=== PATIENT | female | born 1985 | race Caucasian/White ===

== ENCOUNTER 2023-05-18 03:33 | Emergency (ER) | payer OTHER, SELFPAY ==
[2023-05-18 03:39] VITALS: BP 147/93; PULSE 87; RESP 16; TEMP 36.3; O2SAT 100; BMI 21.6
--- NOTE | 2023-05-18 03:57 | ED.ANXIETY1 ---
HPI - Anxiety General Chief Complaint: Anxiety Stated Complaint: ANXIETY Time Seen by Provider: 05/18/23 03:56 Source: patient Mode of arrival: walk-in Limitations: no limitations History of Present Illness HPI narrative: history of anxiety and schizophrenia. States she was suppose to see her physician last week but missed the appointment. This AM she feels anxious and came in. Not suicidal. plans to call the office in a few hours for an appointment today MD complaint: Reports anxiety Related Data Home Medications Medication Instructions Recorded Confirmed albuterol sulfate 2.5 mg/3 mL 2.5 mg inhalation Q4H PRN 05/18/23 05/18/23 (0.083 %) solution for nebulization shortness of breath or wheezing clonazepam 1 mg tablet 1 mg PO Q8H 05/18/23 05/18/23 dextroamphetamine-amphetamine 10 10 mg PO BID 05/18/23 05/18/23 mg tablet gabapentin 800 mg tablet 800 mg PO Q12H 05/18/23 05/18/23 pregabalin 75 mg capsule 75 mg PO Q8H 05/18/23 05/18/23 Allergies Allergy/AdvReac Type Severity Reaction Status Date / Time No Known Drug Allergies Allergy Verified 05/18/23 03:44 Review of Systems ROS Status of ROS 10 or more systems reviewed and unremarkable except as noted in history and below PFSH PFSH Social History Smoking status: Current every day smoker Exam Constitutional Vital Signs, click to edit/add: Last Vital Signs Temp 97.4 F L 05/18/23 03:39 Pulse 87 05/18/23 03:39 Resp 16 05/18/23 03:39 BP 147/93 H 05/18/23 03:39 Pulse Ox 100 05/18/23 03:39 O2 Del Method Room Air 05/18/23 03:39 Common normals: no apparent distress, average body habitus, oriented x3, healthy appearing and alert Eye Common normals: EOMs intact bilaterally and conjunctivae normal Respiratory Common normals: normal respiratory effort, no retractions, no use of accessory muscles and clear to auscultation bilaterally Cardio Common normals: regular rate, regular rhythm, S1 normal heart sound and S2 normal heart sound GI Common normals: Normal to inspection, nondistended, normoactive bowel sounds present Extremity Common normals: normal to inspection and full ROM Neuro Common normals: moves all extremities, no focal motor deficits and no sensory deficits noted Psych Appearance: grossly normal Course Vital Signs Vital signs: Vital Signs Temperature 97.4 F L 05/18/23 03:39 Pulse Rate 87 05/18/23 03:39 Respiratory Rate 16 05/18/23 03:39 Blood Pressure 147/93 H 05/18/23 03:39 Pulse Oximetry 100 05/18/23 03:39 Oxygen Delivery Method Room Air 05/18/23 03:39 Temperature 97.4 F L 05/18/23 03:39 Pulse Rate 87 05/18/23 03:39 Respiratory Rate 16 05/18/23 03:39 Blood Pressure 147/93 H 05/18/23 03:39 Pulse Oximetry 100 05/18/23 03:39 Oxygen Delivery Method Room Air 05/18/23 03:39 MDM - Anxiety MDM Narrative Medical decision making narrative: patient presents with history of anxiety and schizophrenia. here this AM complaining of anxiety. no depressed or suicidal. ordered Klonipin and benadryl. Patient then observed for response. She apparently left without informing anyone. She was with her male partner and he too left. Neither one ever returned Discharge Plan Discharge Chief Complaint: Anxiety Clinical Impression: Acute anxiety Patient Disposition: Left Against Medical Advice Prescriptions / Home Meds: No Action albuterol sulfate 2.5 mg /3 mL (0.083 %) solution for nebulization 2.5 mg inhalation Q4H PRN (Reason: shortness of breath or wheezing) clonazepam 1 mg tablet 1 mg PO Q8H dextroamphetamine-amphetamine 10 mg tablet 10 mg PO BID gabapentin 800 mg tablet 800 mg PO Q12H pregabalin 75 mg capsule 75 mg PO Q8H Stand Alone Forms: Portal Instructions Referrals: Physician,Non-Staff, MD [Primary Care Provider] - 1 week Discharge Date/Time: 05/18/23 04:18
[2023-05-18] MEDS: DIPHENHYDRAMINE HCL 25 MG CAPSULE 50 MG PO (04:04)
[2023-05-18] MEDS: CLONAZEPAM 0.5 MG TABLET 1 MG PO (04:05)
== END 2023-05-18 04:18 | disposition left against medical advice (07) ==
PROVIDERS: Emergency Provider Internal Medicine
DX: F41.9 Anxiety disorder, unspecified (principal); F17.210 Nicotine dependence, cigarettes, uncomplicated; Z79.899 Other long term (current) drug therapy
CPT/HCPCS: 99283

== ENCOUNTER 2023-05-18 12:06 | Emergency (ER) | payer OTHER, SELFPAY ==
[2023-05-18 12:10] VITALS: BP 138/91; PULSE 79; RESP 18; TEMP 36.6; O2SAT 98; BMI 17.0
--- NOTE | 2023-05-18 12:36 | ECG_ITS ---
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
--- NOTE | 2023-05-18 12:53 | ED_ITS ---
HPI - Anxiety General Chief Complaint: Anxiety Stated Complaint: ANXIETY Time Seen by Provider: 05/18/23 12:20 Source: patient Mode of arrival: walk-in History of Present Illness HPI narrative: 38-year-old female presents for anxiety. She is not suicidal. She ran out of her Klonopin but she's been taking her Seroquel and Depakote. She sees a doctor in [place] to get these medications. Hasn't been able to get her Klonopin refilled yet. She was seen here earlier today and was given a dose of Klonopin but then walked out without informing staff. She states she is hearing voices and she thinks other people can hear the voices two. He doesn't have any physical complaints such as fever or headache or cough. Related Data Home Medications Medication Instructions Recorded Confirmed albuterol sulfate 2.5 mg/3 mL 2.5 mg inhalation Q4H PRN 05/18/23 05/18/23 (0.083 %) solution for nebulization shortness of breath or wheezing clonazepam 1 mg tablet 1 mg PO Q8H 05/18/23 05/18/23 dextroamphetamine-amphetamine 10 10 mg PO BID 05/18/23 05/18/23 mg tablet gabapentin 800 mg tablet 800 mg PO Q12H 05/18/23 05/18/23 pregabalin 75 mg capsule 75 mg PO Q8H 05/18/23 05/18/23 Allergies Allergy/AdvReac Type Severity Reaction Status Date / Time No Known Drug Allergies Allergy Verified 05/18/23 03:44 Review of Systems ROS Narrative A ten point review of systems is negative except as noted above. Psychiatric Reports: anxiety, change in sleep pattern and auditory hallucinations PFSH PFSH Social History Smoking status: Current every day smoker Exam Narrative Exam Narrative: Nurses note and vital signs reviewed and patient is not hypoxic. General: The patient appears well and in no apparent distress. Patient is resting comfortably on cart. Skin: Warm, dry, no pallor noted. There is no rash noted. Head: Normocephalic, atraumatic Eye: Normal conjunctiva, no drainage Ears, Nose, Mouth, and Throat: oral mucosa is moist. Nares patent. Cardiovascular: Regular Rate and Rhythm Respiratory: Patient is in no distress, no accessory muscle use, lungs are clear to auscultation, no wheezing, rales or rhonchi Back: non-tender GI: soft and nontender Musculoskeletal: The patient has no evidence of calf tenderness, no pitting edema, symmetrical pulses noted bilaterally Neurological: A&O, normal speech Psychiatric: Cooperative, appears anxious Constitutional Vital Signs, click to edit/add: Last Vital Signs Temp 97.9 F 05/18/23 12:10 Pulse 79 05/18/23 12:10 Resp 18 05/18/23 12:10 BP 138/91 05/18/23 12:10 Pulse Ox 98 05/18/23 12:10 O2 Del Method Room Air 05/18/23 12:10 Course Vital Signs Vital signs: Vital Signs Temperature 97.9 F 05/18/23 12:10 Pulse Rate 79 05/18/23 12:10 Respiratory Rate 18 05/18/23 12:10 Blood Pressure 138/91 05/18/23 12:10 Pulse Oximetry 98 05/18/23 12:10 Oxygen Delivery Method Room Air 05/18/23 12:10 Temperature 97.9 F 05/18/23 12:10 Pulse Rate 79 05/18/23 12:10 Respiratory Rate 18 05/18/23 12:10 Blood Pressure 138/91 05/18/23 12:10 Pulse Oximetry 98 05/18/23 12:10 Oxygen Delivery Method Room Air 05/18/23 12:10 MDM - Anxiety MDM Narrative Medical decision making narrative: the patient who has a history of schizophrenia has been hearing voices and she is paranoid. She has been evaluated by mental health services and they have been able to place her at [facility]. Differential Diagnosis Differential diagnosis: Likely panic disorder, acute anxiety and other (substance abuse) Lab Data Attestation: I reviewed the patient's lab results. Labs: Lab Results 05/18/23 05/18/23 05/18/23 Range/Units 12:48 13:33 16:12 WBC 7.7 (4.0-11.0) 10^3/uL RBC 5.08 (4.20-5.40) 10^6/uL Hgb 15.3 (12.0-16.0) g/dL Hct 43.7 (36.0-48.0) % MCV 86.0 (81.0-99.0) fL MCH 30.1 (26.7-34.0) pg MCHC 35.0 (29.9-35.2) g/dL RDW 12.7 (11.0-15.0) % Plt Count 247 (150-450) 10^3/uL MPV 10.8 (9.5-13.5) fL Neut % (Auto) 62.7 (43.0-75.0) % Lymph % (Auto) 29.3 (20.5-60.0) % [place] % (Auto) 6.9 (1.7-12.0) % Eos % (Auto) 0.5 L (0.9-7.0) % Baso % (Auto) 0.3 (0.2-2.0) % Neut # (Auto) 4.8 (1.4-6.5) 10^3/uL Lymph # (Auto) 2.3 (1.2-3.8) 10^3/uL [place] # (Auto) 0.5 (0.3-0.8) 10^3/uL Eos # (Auto) 0.0 (0.0-0.7) 10^3/uL Baso # (Auto) 0.0 (0.0-0.1) 10^3/uL Abs Immat Gran (auto) 0.02 (0.00-0.03) 10^3/uL Imm/Tot Granulo (auto) 0.3 (0.0-0.5) % Sodium 136 (136-145) mmol/L Potassium 3.2 L (3.5-5.1) mmol/L Chloride 100 (98-107) mmol/L Carbon Dioxide 28.8 (21.0-32.0) mmol/L Anion Gap 10.4 BUN 12.0 (7.0-18.0) mg/dL Creatinine 0.83 (0.55-1.02) mg/dL Est GFR ( Amer) >60 (>=60) Est GFR (Non-Af Amer) >60 (>=60) BUN/Creatinine Ratio 14.5 Glucose 139 H (74-106) mg/dL Calcium 9.2 (8.5-10.1) mg/dL TSH 1.663 (0.358-3.740) uIU/mL Serum HCG, Qual Negative (NEGATIVE) Urine Color Dk. yellow (YELLOW) Urine Clarity Slightly cloudy A (CLEAR) Urine pH 6.0 (5.0-9.0) Ur Specific [place] >=1.030 A (1.005-1.025) Urine Protein Trace (NEG/TRACE) mg/dL Urine Glucose (UA) Negative (NEGATIVE) mg/dL Urine Ketones Trace A (NEGATIVE) mg/dL Urine Occult Blood Negative (NEGATIVE) Urine Nitrite Negative (NEGATIVE) Urine Bilirubin Small A (NEGATIVE) Urine Urobilinogen 1.0 (0.2-1.0) EU/dL Ur Leukocyte Esterase Trace A (NEGATIVE) Urine RBC None seen (0-2) #/HPF Urine WBC 0-2 A (NONE SEEN) #/HPF Ur Squamous Epith Cells Many A (NONE/RARE) #/LPF Urine Crystals None seen (None Seen) #/HPF Urine Bacteria None seen (NONE SEEN) #/HPF Urine Casts None seen (NONE SEEN) #/LPF Urine Mucus Small A (NONE SEEN) Ur Culture Indicated? No Salicylates 5.7 (<=19.9) mg/dL Urine Opiates Screen Negative (NEGATIVE) Ur Buprenorphine Scrn Negative (NEGATIVE) Ur Oxycodone Screen Negative (NEGATIVE) Urine Methadone Screen Positive A (NEGATIVE) Ur Propoxyphene Screen Negative (NEGATIVE) Acetaminophen <2.0 L (10.0-30.0) ug/mL Ur Barbiturates Screen Negative (NEGATIVE) U Tricyclic Antidepress Negative (NEGATIVE) Ur Phencyclidine Scrn Negative (NEGATIVE) Ur Amphetamines Screen Positive A (NEGATIVE) U Methamphetamines Scrn Positive A (NEGATIVE) U Benzodiazepines Scrn Negative (NEGATIVE) Urine Cocaine Screen Negative (NEGATIVE) U Cannabinoids Screen Negative (NEGATIVE) Ethanol Quant <3 mg/dL SARS-CoV-2 (PCR) (NEGATIVE) 05/18/23 Range/Units 17:40 WBC (4.0-11.0) 10^3/uL RBC (4.20-5.40) 10^6/uL Hgb (12.0-16.0) g/dL Hct (36.0-48.0) % MCV (81.0-99.0) fL MCH (26.7-34.0) pg MCHC (29.9-35.2) g/dL RDW (11.0-15.0) % Plt Count (150-450) 10^3/uL MPV (9.5-13.5) fL Neut % (Auto) (43.0-75.0) % Lymph % (Auto) (20.5-60.0) % [place] % (Auto) (1.7-12.0) % Eos % (Auto) (0.9-7.0) % Baso % (Auto) (0.2-2.0) % Neut # (Auto) (1.4-6.5) 10^3/uL Lymph # (Auto) (1.2-3.8) 10^3/uL [place] # (Auto) (0.3-0.8) 10^3/uL Eos # (Auto) (0.0-0.7) 10^3/uL Baso # (Auto) (0.0-0.1) 10^3/uL Abs Immat Gran (auto) (0.00-0.03) 10^3/uL Imm/Tot Granulo (auto) (0.0-0.5) % Sodium (136-145) mmol/L Potassium (3.5-5.1) mmol/L Chloride (98-107) mmol/L Carbon Dioxide (21.0-32.0) mmol/L Anion Gap BUN (7.0-18.0) mg/dL Creatinine (0.55-1.02) mg/dL Est GFR ( Amer) (>=60) Est GFR (Non-Af Amer) (>=60) BUN/Creatinine Ratio Glucose (74-106) mg/dL Calcium (8.5-10.1) mg/dL TSH (0.358-3.740) uIU/mL Serum HCG, Qual (NEGATIVE) Urine Color (YELLOW) Urine Clarity (CLEAR) Urine pH (5.0-9.0) Ur Specific [place] (1.005-1.025) Urine Protein (NEG/TRACE) mg/dL Urine Glucose (UA) (NEGATIVE) mg/dL Urine Ketones (NEGATIVE) mg/dL Urine Occult Blood (NEGATIVE) Urine Nitrite (NEGATIVE) Urine Bilirubin (NEGATIVE) Urine Urobilinogen (0.2-1.0) EU/dL Ur Leukocyte Esterase (NEGATIVE) Urine RBC (0-2) #/HPF Urine WBC (NONE SEEN) #/HPF Ur Squamous Epith Cells (NONE/RARE) #/LPF Urine Crystals (None Seen) #/HPF Urine Bacteria (NONE SEEN) #/HPF Urine Casts (NONE SEEN) #/LPF Urine Mucus (NONE SEEN) Ur Culture Indicated? Salicylates (<=19.9) mg/dL Urine Opiates Screen (NEGATIVE) Ur Buprenorphine Scrn (NEGATIVE) Ur Oxycodone Screen (NEGATIVE) Urine Methadone Screen (NEGATIVE) Ur Propoxyphene Screen (NEGATIVE) Acetaminophen (10.0-30.0) ug/mL Ur Barbiturates Screen (NEGATIVE) U Tricyclic Antidepress (NEGATIVE) Ur Phencyclidine Scrn (NEGATIVE) Ur Amphetamines Screen (NEGATIVE) U Methamphetamines Scrn (NEGATIVE) U Benzodiazepines Scrn (NEGATIVE) Urine Cocaine Screen (NEGATIVE) U Cannabinoids Screen (NEGATIVE) Ethanol Quant mg/dL SARS-CoV-2 (PCR) Negative (NEGATIVE) ECG Data Attestation: I personally reviewed and interpreted this ECG as follows: (normal sinus rhythm without acute change) Discharge Plan Discharge Chief Complaint: Anxiety Clinical Impression: Acute anxiety Patient Disposition: [facility] Time of Disposition Decision: 18:23 Discharge location: [place] Condition: Good Mode of Transportation: EMS
[2023-05-18 12:57] VITALS: PULSE 81
[2023-05-18 13:06] LABS: Anion Gap 10.4; BUN Creatinine Ratio 14.5; Calcium 9.2 mg/dL (8.5-10.1); Carbon Dioxide 28.8 mmol/L (21.0-32.0); Chloride 100 mmol/L (98-107); Estimated GFR (African America >60 (>=60); Estimated GFR (Non-African Ame >60 (>=60); Glucose 139 mg/dL (74-106); Potassium 3.2 mmol/L (3.5-5.1); Sodium 136 mmol/L (136-145)
[2023-05-18 13:08] LABS: Basophils Percent Auto 0.3 % (0.2-2.0); Eosinophils Percent Auto 0.5 % (0.9-7.0); Hematocrit 43.7 % (36.0-48.0); Hemoglobin 15.3 g/dL (12.0-16.0); Immature Granulocytes Abs Auto 0.02 10^3/uL (0.00-0.03); Immature Granulocytes Pct Auto 0.3 % (0.0-0.5); Lymphocytes Absolute Auto 2.3 10^3/uL (1.2-3.8); Lymphocytes Percent Auto 29.3 % (20.5-60.0); Mean Corpuscular Hemoglobin 30.1 pg (26.7-34.0); Mean Platelet Volume 10.8 fL (9.5-13.5); Monocytes Absolute Auto 0.5 10^3/uL (0.3-0.8); Monocytes Percent Auto 6.9 % (1.7-12.0); Neutrophils Absolute Auto 4.8 10^3/uL (1.4-6.5); Neutrophils Percent Auto 62.7 % (43.0-75.0); Platelet Count 247 10^3/uL (150-450); Red Blood Count 5.08 10^6/uL (4.20-5.40); Red Cell Distribution Width 12.7 % (11.0-15.0); White Blood Count 7.7 10^3/uL (4.0-11.0)
[2023-05-18 13:10] LABS: Salicylate 5.7 mg/dL (<=19.9)
[2023-05-18 13:12] LABS: Acetaminophen <2.0 ug/mL (10.0-30.0); Ethanol <3 mg/dL; HCG Qualitative NEGATIVE (NEGATIVE)
[2023-05-18 14:02] LABS: Thyroid Stimulating Hormone 1.663 uIU/mL (0.358-3.740)
[2023-05-18] MEDS: CLONAZEPAM 0.5 MG TABLET 1 MG PO (14:38)
[2023-05-18 16:21] LABS: Bilirubin Urine SMALL (NEGATIVE); Blood Urine NEGATIVE (NEGATIVE); Color Urine DK. YELLOW (YELLOW); Glucose Urine UA NEGATIVE (NEGATIVE); Ketones Urine TRACE mg/dL (NEGATIVE); Leukocyte Esterase Urine TRACE (NEGATIVE); Nitrite Urine NEGATIVE (NEGATIVE); Protein Urine TRACE mg/dL (NEG/TRACE); Specific Gravity Urine >=1.030 (1.005-1.025)
[2023-05-18 16:28] LABS: Clarity Urine SLIGHTLY CLOUDY (CLEAR)
[2023-05-18 16:29] LABS: Bacteria Urine NONE SEEN #/HPF (NONE SEEN); Crystals Seen? None Seen #/HPF (None Seen); Mucus Urine SMALL (NONE SEEN); RBC Urine NONE SEEN #/HPF (0-2); Squamous Epithelial Cell Urine MANY #/LPF (NONE/RARE); WBC Urine 0-2 #/HPF (NONE SEEN)
[2023-05-18 16:30] LABS: Cast Seen? NONE SEEN #/LPF (NONE SEEN); Urine Culture Indicated NO
[2023-05-18 16:37] LABS: Amphetamine Screen Urine POSITIVE (NEGATIVE); Barbiturates Screen Urine NEGATIVE (NEGATIVE); Benzodiazepines Screen Urine NEGATIVE (NEGATIVE); Buprenorphine Screen Urine NEGATIVE (NEGATIVE); Cannabinoid Screen Urine NEGATIVE (NEGATIVE); Cocaine Screen Urine NEGATIVE (NEGATIVE); Methadone Screen Urine POSITIVE (NEGATIVE); Methamphetamines Screen Urine POSITIVE (NEGATIVE); Opiate Screen Urine NEGATIVE (NEGATIVE); Oxycodone Screen Urine NEGATIVE (NEGATIVE); Phencyclidine Screen Urine NEGATIVE (NEGATIVE); Tricyclic Antidepressant Urine NEGATIVE (NEGATIVE)
[2023-05-18 18:03] LABS: SARS-CoV-2 Ag NEGATIVE (NEGATIVE)
[2023-05-18] MEDS: POTASSIUM BICARBONATE/CIT 25 MEQ TABLET EFF 50 MEQ PO (18:13)
[2023-05-18] MEDS: CLONAZEPAM 1 MG TABLET PO (21:26)
[2023-05-20 15:28] LABS: SARS-CoV-2 NAA NOT DETECTED (NOT DETECTE)
== END 2023-05-18 21:33 ==
PROVIDERS: Emergency Medicine; Emergency Provider Emergency Medicine
DX: F41.9 Anxiety disorder, unspecified (principal); F20.9 Schizophrenia, unspecified; F17.210 Nicotine dependence, cigarettes, uncomplicated; Z79.899 Other long term (current) drug therapy; Z20.822 Contact with and (suspected) exposure to COVID-19
CPT/HCPCS: 36415; 80048; 80179; 80307; 80320; 80329; 81001; 84443; 84703; 85025; 87635; 87811; 93005; 99283; 99285

== ENCOUNTER 2023-06-11 10:14 | Emergency (ER) | payer OTHER, SELFPAY ==
[2023-06-11] VITALS (7 sets, daily range): BP systolic 90–105; BP diastolic 59–61; PULSE 61–80; RESP 15–18; TEMP 36.8; O2SAT 94–98; BMI 22.6
--- NOTE | 2023-06-11 10:24 | ECG_ITS ---
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
[2023-06-11 10:56] LABS: Basophils Absolute Auto 0.1 10^3/uL (0.0-0.1); Basophils Percent Auto 0.7 % (0.2-2.0); Eosinophils Absolute Auto 0.2 10^3/uL (0.0-0.7); Eosinophils Percent Auto 1.6 % (0.9-7.0); Hemoglobin 11.6 g/dL (12.0-16.0); Immature Granulocytes Abs Auto 0.02 10^3/uL (0.00-0.03); Immature Granulocytes Pct Auto 0.2 % (0.0-0.5); Lymphocytes Absolute Auto 4.2 10^3/uL (1.2-3.8); Lymphocytes Percent Auto 41.7 % (20.5-60.0); Mean Corpuscular HGB Conc 33.1 g/dL (29.9-35.2); Mean Corpuscular Hemoglobin 30.3 pg (26.7-34.0); Mean Corpuscular Volume 91.4 fL (81.0-99.0); Mean Platelet Volume 10.8 fL (9.5-13.5); Monocytes Absolute Auto 0.7 10^3/uL (0.3-0.8); Monocytes Percent Auto 7.2 % (1.7-12.0); Neutrophils Absolute Auto 4.9 10^3/uL (1.4-6.5); Neutrophils Percent Auto 48.6 % (43.0-75.0); Platelet Count 198 10^3/uL (150-450); Red Blood Count 3.83 10^6/uL (4.20-5.40); Red Cell Distribution Width 12.8 % (11.0-15.0); White Blood Count 10.1 10^3/uL (4.0-11.0)
[2023-06-11 11:10] LABS: Alanine Aminotransferase 22 U/L (14-59); Albumin Globulin Ratio 0.9; Alkaline Phosphatase 41 U/L (46-116); Anion Gap 8.5; Aspartate Amino Transferase 10 U/L (15-37); BUN Creatinine Ratio 10.5; Bilirubin Total 0.2 mg/dL (0.2-1.0); Calcium 8.4 mg/dL (8.5-10.1); Carbon Dioxide 28.3 mmol/L (21.0-32.0); Chloride 107 mmol/L (98-107); Estimated GFR (African America >60 (>=60); Estimated GFR (Non-African Ame >60 (>=60); Globulin 3.3 g/dL; Glucose 107 mg/dL (74-106); Potassium 3.8 mmol/L (3.5-5.1); Salicylate 4.3 mg/dL (<=19.9); Sodium 140 mmol/L (136-145); Total Protein 6.3 g/dL (6.4-8.2)
[2023-06-11 11:11] LABS: INR 0.95; Prothrombin Time 10.1 sec (9.0-11.6)
[2023-06-11 11:14] LABS: Acetaminophen <2.0 ug/mL (10.0-30.0)
[2023-06-11 11:15] LABS: HCG Qualitative NEGATIVE (NEGATIVE)
[2023-06-11 11:33] LABS: Ethanol <3 mg/dL
[2023-06-11 12:13] LABS: Amphetamine Screen Urine NEGATIVE (NEGATIVE); Barbiturates Screen Urine NEGATIVE (NEGATIVE); Benzodiazepines Screen Urine POSITIVE (NEGATIVE); Buprenorphine Screen Urine NEGATIVE (NEGATIVE); Cannabinoid Screen Urine NEGATIVE (NEGATIVE); Cocaine Screen Urine NEGATIVE (NEGATIVE); Methadone Screen Urine POSITIVE (NEGATIVE); Methamphetamines Screen Urine NEGATIVE (NEGATIVE); Opiate Screen Urine NEGATIVE (NEGATIVE); Oxycodone Screen Urine NEGATIVE (NEGATIVE); Phencyclidine Screen Urine NEGATIVE (NEGATIVE); Tricyclic Antidepressant Urine NEGATIVE (NEGATIVE)
--- NOTE | 2023-06-11 13:46 | ED.GENADUL1 ---
HPI - General Adult General Chief complaint: Altered Mental Status Stated complaint: CONFUSION Time Seen by Provider: 06/11/23 10:24 Source: patient and family Mode of arrival: walk-in Limitations: no limitations History of Present Illness HPI narrative: Presenting to us with her friend for the main reason that she need detox she also have history of schizophrenia and anxiety but her main concern that she need help with her psychiatric problems as well as her detox from opiate her last intake of methadone was daily and today she got 1 dose of it as she gets that from a detox facility in [place] The patient also used fentanyl almost a week ago The patient is not suicidal or homicidal at the moment Related Data Home Medications Medication Instructions Recorded Confirmed pregabalin 75 mg capsule 75 mg PO Q8H 05/18/23 06/11/23 clonazepam 0.5 mg tablet 0.5 mg PO Q12H PRN anxiety 06/11/23 06/11/23 divalproex 250 mg tablet,delayed 750 mg PO BEDTIME 06/11/23 06/11/23 release haloperidol 5 mg tablet 5 mg PO BID 06/11/23 06/11/23 hydroxyzine HCl 50 mg tablet 50 mg PO Q6H PRN anxiety 06/11/23 06/11/23 trazodone 50 mg tablet 50 mg PO BEDTIME PRN insomnia 06/11/23 06/11/23 venlafaxine 75 mg capsule,extended 75 mg PO DAILY 06/11/23 06/11/23 release 24 hr Allergies Allergy/AdvReac Type Severity Reaction Status Date / Time No Known Drug Allergies Allergy Verified 05/18/23 03:44 Review of Systems ROS Status of ROS 10 or more systems reviewed and unremarkable except as noted in history and below PFSH PFS Social History Smoking status: Current every day smoker Exam Narrative Exam Narrative: Nurses notes and vital signs reviewed and patient is not hypoxic. General: Well-appearing and in no apparent distress. Skin: Warm, dry, no pallor noted. No rash. Head: Normocephalic, atraumatic. Neck: Supple, non-tender. Eye: Pupils are equal, round and EOMI. No scleral icterus. Ears, Nose, Mouth, and Throat: TM are clear, no nasal mucosal hypertrophy. Oral mucosa is moist, no posterior oropharynx erythema, uvula is mid-line Cardiovascular: Regular Rate and Rhythm without murmur, gallop or rub. Respiratory: No accessory muscle use or respiratory distress. Lungs are clear to auscultation, no wheezing, rales or rhonchi Chest Wall: no tenderness Back: No midline thoracic or lumbar vertebral tenderness. No CVA tenderness Musculoskeletal: normal ROM, no calf or popliteal tenderness, no lower extremity edema/swelling GI: Abdomen is soft, non-distended. Normal bowel sounds. No masses appreciated. No tenderness to palpation. No rebound, guarding, or rigidity noted. Neurological: A&O x4. No cranial nerve dysfunction observed. No truncal ataxia. Moves all extremities. Sensation intact. Psychiatric: Cooperative and interactive. Normal mood and affect. Constitutional Vital Signs, click to edit/add: Last Vital Signs Temp 98.2 F 06/11/23 10:17 Pulse 61 06/11/23 15:17 Resp 16 06/11/23 15:17 BP 94/61 06/11/23 15:17 Pulse Ox 95 06/11/23 15:17 O2 Del Method Room Air 06/11/23 10:17 Course Vital Signs Vital signs: Vital Signs Temperature 98.2 F 06/11/23 10:17 Pulse Rate 78 06/11/23 10:17 Respiratory Rate 18 06/11/23 10:17 Blood Pressure 105/60 06/11/23 10:17 Pulse Oximetry 97 06/11/23 10:17 Oxygen Delivery Method Room Air 06/11/23 10:17 Temperature 98.2 F 06/11/23 10:17 Pulse Rate 61 06/11/23 15:17 Respiratory Rate 16 06/11/23 15:17 Blood Pressure 94/61 06/11/23 15:17 Pulse Oximetry 95 06/11/23 15:17 Oxygen Delivery Method Room Air 06/11/23 10:17 Medical Decision Making [facility] Narrative Medical decision making narrative: The patient EKG showing sinus rhythm with a heart rate of [address] elevation or depression CBC and chemistry as well as showed no acute significant pathology the patient right now is medically cleared for a psychiatric evaluation or any detox that needed As per [facility]'s psychiatric and detox doses the patient need to be admitted but due to her methadone abuse as well multiple facilities were called and right now we are searching for an accepting facility The patient meanwhile is stable and awaiting placement and her care will be transferred to Dr. Johnson Lab Data Labs: Lab Results 06/11/23 06/11/23 Range/Units 10:43 11:27 WBC 10.1 (4.0-11.0) 10^3/uL RBC 3.83 L (4.20-5.40) 10^6/uL Hgb 11.6 L (12.0-16.0) g/dL Hct 35.0 L (36.0-48.0) % MCV 91.4 (81.0-99.0) fL MCH 30.3 (26.7-34.0) pg MCHC 33.1 (29.9-35.2) g/dL RDW 12.8 (11.0-15.0) % Plt Count 198 (150-450) 10^3/uL MPV 10.8 (9.5-13.5) fL Neut % (Auto) 48.6 (43.0-75.0) % Lymph % (Auto) 41.7 (20.5-60.0) % [place] % (Auto) 7.2 (1.7-12.0) % Eos % (Auto) 1.6 (0.9-7.0) % Baso % (Auto) 0.7 (0.2-2.0) % Neut # (Auto) 4.9 (1.4-6.5) 10^3/uL Lymph # (Auto) 4.2 H (1.2-3.8) 10^3/uL [place] # (Auto) 0.7 (0.3-0.8) 10^3/uL Eos # (Auto) 0.2 (0.0-0.7) 10^3/uL Baso # (Auto) 0.1 (0.0-0.1) 10^3/uL Abs Immat Gran (auto) 0.02 (0.00-0.03) 10^3/uL Imm/Tot Granulo (auto) 0.2 (0.0-0.5) % PT 10.1 (9.0-11.6) sec INR 0.95 Sodium 140 (136-145) mmol/L Potassium 3.8 (3.5-5.1) mmol/L Chloride 107 (98-107) mmol/L Carbon Dioxide 28.3 (21.0-32.0) mmol/L Anion Gap 8.5 BUN 9.0 (7.0-18.0) mg/dL Creatinine 0.86 (0.55-1.02) mg/dL Est GFR ( Amer) >60 (>=60) Est GFR (Non-Af Amer) >60 (>=60) BUN/Creatinine Ratio 10.5 Glucose 107 H (74-106) mg/dL Calcium 8.4 L (8.5-10.1) mg/dL Total Bilirubin 0.2 (0.2-1.0) mg/dL AST 10 L (15-37) U/L ALT 22 (14-59) U/L Alkaline Phosphatase 41 L (46-116) U/L Total Protein 6.3 L (6.4-8.2) g/dL Albumin 3.0 L (3.4-5.0) g/dL Globulin 3.3 g/dL Albumin/Globulin Ratio 0.9 Serum HCG, Qual Negative (NEGATIVE) Salicylates 4.3 (<=19.9) mg/dL Urine Opiates Screen Negative (NEGATIVE) Ur Buprenorphine Scrn Negative (NEGATIVE) Ur Oxycodone Screen Negative (NEGATIVE) Urine Methadone Screen Positive A (NEGATIVE) Ur Propoxyphene Screen Negative (NEGATIVE) Acetaminophen <2.0 L (10.0-30.0) ug/mL Ur Barbiturates Screen Negative (NEGATIVE) U Tricyclic Antidepress Negative (NEGATIVE) Ur Phencyclidine Scrn Negative (NEGATIVE) Ur Amphetamines Screen Negative (NEGATIVE) U Methamphetamines Scrn Negative (NEGATIVE) U Benzodiazepines Scrn Positive A (NEGATIVE) Urine Cocaine Screen Negative (NEGATIVE) U Cannabinoids Screen Negative (NEGATIVE) Ethanol Quant <3 mg/dL Discharge Plan Discharge Chief Complaint: Altered Mental Status Clinical Impression: Opiate abuse, continuous, Anxiety Patient [facility]position: [facility]
[2023-06-11] MEDS: LORAZEPAM 1 MG TABLET PO (19:26)
[2023-06-11] MEDS: CLONAZEPAM 0.5 MG TABLET 1 MG PO (22:21)
== END 2023-06-11 23:40 ==
PROVIDERS: Emergency Provider Emergency Medicine
DX: F20.9 Schizophrenia, unspecified (principal); F11.10 Opioid abuse, uncomplicated; F41.9 Anxiety disorder, unspecified; F17.210 Nicotine dependence, cigarettes, uncomplicated
CPT/HCPCS: 36415; 80053; 80179; 80307; 80320; 80329; 84703; 85025; 85610; 93005; 99285

== ENCOUNTER 2023-06-14 12:30 | Emergency (ER) | payer OTHER, SELFPAY ==
[2023-06-14 12:37] VITALS: BP 104/56; PULSE 70; RESP 18; TEMP 36.6; O2SAT 98; BMI 29.5
--- NOTE | 2023-06-14 12:49 | ED_ITS ---
HPI - Anxiety General Chief Complaint: Anxiety Stated Complaint: ANXIETY Time Seen by Provider: 06/14/23 12:38 Source: patient Mode of arrival: walk-in Limitations: no limitations History of Present Illness HPI narrative: Patient has anxiety and was recently released from a psych facility in [place]. She was prescribed 0.5mg Clonazepam instead of the 1mg she normally takes. They called after getting home and reviewing the prescription and the psychiatrist prescribed an additional batch of 0.5mg Clonazepam but sent it to a pharmacy in [place],. The patient tried to have the prescription sent to her local pharmacy but they said they could not because it was a controlled substance. She has been taking extra Clonazpema in anticipation of getting the remainder of the prescription but is now out of Clonazpeam and has no way to get refills. She is complaining of anxiety. No suicidal or homicidal issue. Related Data Home Medications Medication Instructions Recorded Confirmed pregabalin 75 mg capsule 75 mg PO Q8H 05/18/23 06/11/23 clonazepam 0.5 mg tablet 0.5 mg PO Q12H PRN anxiety 06/11/23 06/14/23 divalproex 250 mg tablet,delayed 750 mg PO BEDTIME 06/11/23 06/11/23 release haloperidol 5 mg tablet 5 mg PO BID 06/11/23 06/11/23 hydroxyzine HCl 50 mg tablet 50 mg PO Q6H PRN anxiety 06/11/23 06/11/23 trazodone 50 mg tablet 50 mg PO BEDTIME PRN insomnia 06/11/23 06/11/23 venlafaxine 75 mg capsule,extended 75 mg PO DAILY 06/11/23 06/11/23 release 24 hr Previous Rx's Medication Instructions Recorded clonazepam 0.5 mg tablet 0.5 mg PO BID PRN anxiety #5 tabs 06/14/23 Allergies Allergy/AdvReac Type Severity Reaction Status Date / Time No Known Drug Allergies Allergy Verified 05/18/23 03:44 PFSH PFSH Social History Smoking status: Current every day smoker Exam Narrative Exam Narrative: Nurses notes and vital signs reviewed and patient is not hypoxic. afebrile General: Well-appearing but anxious. Skin: Warm, dry, no pallor noted. No rash. Head: Normocephalic, atraumatic. Neck: Supple, non-tender. Eye: Pupils are equal, round and EOMI. No scleral icterus. Cardiovascular: Regular Rate and Rhythm without murmur, gallop or rub. Respiratory: No accessory muscle use or respiratory distress. Lungs are clear to auscultation, no wheezing, rales or rhonchi Musculoskeletal: normal ROM GI: Abdomen is soft, non-distended. Normal bowel sounds. No tenderness to palpation. No rebound, guarding, or rigidity noted. Neurological: A&O x4. No cranial nerve dysfunction observed. No truncal ataxia. Moves all extremities. Sensation intact. Psychiatric: Cooperative and interactive. Normal mood and affect. Constitutional Vital Signs, click to edit/add: Last Vital Signs Temp 97.8 F 06/14/23 12:37 Pulse 70 06/14/23 12:37 Resp 18 06/14/23 12:37 BP 104/56 06/14/23 12:37 Pulse Ox 98 06/14/23 12:37 Course Vital Signs Vital signs: Vital Signs Temperature 97.8 F 06/14/23 12:37 Pulse Rate 70 06/14/23 12:37 Respiratory Rate 18 06/14/23 12:37 Blood Pressure 104/56 06/14/23 12:37 Pulse Oximetry 98 06/14/23 12:37 Temperature 97.8 F 06/14/23 12:37 Pulse Rate 70 06/14/23 12:37 Respiratory Rate 18 06/14/23 12:37 Blood Pressure 104/56 06/14/23 12:37 Pulse Oximetry 98 06/14/23 12:37 MDM - Anxiety MDM Narrative Medical decision making narrative: [facility] reviewed - the patient got 30 clonazepam tabs prescribed and picked up on 06/07/23. She was given 1mg IM Ativan in the ED for her symptoms and then discharged home with prescription for enough 0.5mg Clonazepam to get her through until she can talk with her psychiatrist or PCP on Thursday (after hol). Discharge Plan Discharge Chief Complaint: Anxiety Clinical Impression: Acute anxiety Patient Disposition: Home, Self-Care Time of Disposition Decision: 12:54 Prescriptions / Home Meds: New clonazepam 0.5 mg tablet 0.5 mg PO BID PRN (Reason: anxiety) Qty: 5 0RF No Action pregabalin 75 mg capsule 75 mg PO Q8H clonazepam 0.5 mg tablet 0.5 mg PO Q12H PRN (Reason: anxiety) divalproex 250 mg tablet,delayed release (DR/EC) 750 mg PO BEDTIME haloperidol 5 mg tablet 5 mg PO BID hydroxyzine HCl 50 mg tablet 50 mg PO Q6H PRN (Reason: anxiety) trazodone 50 mg tablet 50 mg PO BEDTIME PRN (Reason: insomnia) venlafaxine 75 mg capsule,extended release 24hr 75 mg PO DAILY Instructions: Anxiety (ED) Stand Alone Forms: Portal Instructions Referrals: Physician,Non-Staff, MD [Primary Care Provider] - 1 week
[2023-06-14] MEDS: LORAZEPAM 2 MG/ML 1 ML VIAL 1 MG IM (13:07)
== END 2023-06-14 13:09 | disposition home or self-care (01) ==
PROVIDERS: Emergency Provider Emergency Medicine
DX: F41.9 Anxiety disorder, unspecified (principal); Z79.899 Other long term (current) drug therapy; F17.210 Nicotine dependence, cigarettes, uncomplicated
CPT/HCPCS: 96372; 99284

== ENCOUNTER 2023-06-23 19:17 | Emergency (ER) | payer OTHER, SELFPAY ==
[2023-06-23 19:27] VITALS: BP 108/58; PULSE 81; RESP 16; TEMP 36.7; O2SAT 98; BMI 23.3
--- NOTE | 2023-06-23 19:34 | XR_ITS ---
The [address] [address] Patient Name: LORNA DEUTSCH MRN: [id number] date: 1985 Sex: F Assigned Patient Location: ER Current Patient Location: ED.MAIN Accession/Order Number: [id number] Exam Date: 06/23/2023 19:40 Report Date: 06/23/2023 20:09 At the request of: LUCIO KELLEY Procedure: XR foot LT min 3V IMAGES REVIEWED: XR foot LT min 3V, XR ankle LT min 3V COMPARISON: None available. CLINICAL INDICATION: fall FINDINGS/IMPRESSION: No evidence of acute osseous abnormality of the left ankle or left foot. Electronically authenticated by: STANLEY CR Date: 06/23/2023 20:09
--- NOTE | 2023-06-23 19:34 | XR_ITS ---
The [address] [address] Patient Name: LORNA DEUTSCH MRN: [id number] date: 1985 Sex: F Assigned Patient Location: ER Current Patient Location: ED.MAIN Accession/Order Number: [id number] Exam Date: 06/23/2023 19:40 Report Date: 06/23/2023 20:09 At the request of: LUCIO KELLEY Procedure: XR ankle LT min 3V IMAGES REVIEWED: XR foot LT min 3V, XR ankle LT min 3V COMPARISON: None available. CLINICAL INDICATION: fall FINDINGS/IMPRESSION: No evidence of acute osseous abnormality of the left ankle or left foot. Electronically authenticated by: STANLEY CR Date: 06/23/2023 20:09
--- NOTE | 2023-06-23 20:02 | ED_ITS ---
HPI - Extremity Injury (Lower) General Chief Complaint: Extremity Injury, Lower Stated Complaint: lower Injury Time Seen by Provider: 06/23/23 19:34 Source: patient Mode of arrival: Wheelchair Limitations: no limitations History of Present Illness HPI Narrative: patient is a 38-year-old female who presents to the emergency department for the evaluation of an injury to the left foot and ankle that occurred earlier today. She states she missed a step and twisted her left foot. She complains of pain diffusely over the dorsum of the left foot and mildly over the left lateral malleolus. She states symptoms are worse with ambulation. She denies any other associated injuries. She is not concerned for . Related Data Home Medications Medication Instructions Recorded Confirmed pregabalin 75 mg capsule 75 mg PO Q8H 05/18/23 06/23/23 clonazepam 0.5 mg tablet 0.5 mg PO Q12H PRN anxiety 06/11/23 06/23/23 divalproex 250 mg tablet,delayed 750 mg PO BEDTIME 06/11/23 06/23/23 release haloperidol 5 mg tablet 5 mg PO BID 06/11/23 06/23/23 hydroxyzine HCl 50 mg tablet 50 mg PO Q6H PRN anxiety 06/11/23 06/23/23 trazodone 50 mg tablet 50 mg PO BEDTIME PRN insomnia 06/11/23 06/23/23 venlafaxine 75 mg capsule,extended 75 mg PO DAILY 06/11/23 06/23/23 release 24 hr Previous Rx's Medication Instructions Recorded clonazepam 0.5 mg tablet 0.5 mg PO BID PRN anxiety #5 tabs 06/14/23 ketorolac 10 mg tablet 10 mg PO TID PRN pain #10 tabs 06/23/23 Allergies Allergy/AdvReac Type Severity Reaction Status Date / Time No Known Drug Allergies Allergy Verified 06/23/23 19:33 Review of Systems ROS Constitutional Denies: fever or chills Ears, nose, mouth, and throat Denies: throat pain or neck pain Cardiovascular Denies: chest pain Respiratory Denies: shortness of breath Musculoskeletal Reports: extremity pain; Denies: back pain or neck pain Integumentary/Breast Denies: rash Neurological Denies: headache Hematologic/Lymphatic Denies: easy bruising PFSH PFSH Social History Smoking status: Current every day smoker Exam Narrative Exam Narrative: Gen.: Awake, alert, in no distress Head: Normocephalic, atraumatic ENT: Moist mucous membranes Respiratory: No respiratory distress Extremities: Moves extremities equally, no edema or ecchymosis noted to the left foot or ankle. Diffusely minimally tender over the dorsum of the left foot, no bony point tenderness of the left 5th metatarsal. No obvious deformity of the left ankle, diffusely mildly tender of the left lateral malleolus. 2+ left DP pulse. Psych: Normal mood and affect Neuro: No focal neuro deficit Skin: Warm, dry, intact Constitutional Vital Signs, click to edit/add: Last Vital Signs Temp 98.1 F 06/23/23 19:27 Pulse 81 06/23/23 19:27 Resp 16 06/23/23 19:27 BP 108/58 06/23/23 19:27 Pulse Ox 98 06/23/23 19:27 O2 Del Method Room Air 06/23/23 19:27 Course Vital Signs Vital signs: Vital Signs Temperature 98.1 F 06/23/23 19:27 Pulse Rate 81 06/23/23 19:27 Respiratory Rate 16 06/23/23 19:27 Blood Pressure 108/58 06/23/23 19:27 Pulse Oximetry 98 06/23/23 19:27 Oxygen Delivery Method Room Air 06/23/23 19:27 Temperature 98.1 F 06/23/23 19:27 Pulse Rate 81 06/23/23 19:27 Respiratory Rate 16 06/23/23 19:27 Blood Pressure 108/58 06/23/23 19:27 Pulse Oximetry 98 06/23/23 19:27 Oxygen Delivery Method Room Air 06/23/23 19:27 MDM - Extremity Injury (Lower) MDM Narrative Medical decision making narrative: x-rays of the left foot and ankle with no evidence of fracture or dislocation. P atient with a benign exam and stable vital signs. She is started on anti- inflammatories. Placed in [place] wrap and postop shoe. She is neurovascularly intact pre-and post hardware application. Rest, ice, elevate. Follow-up with PCP and return to the Emergency Room if symptoms change or worsen Medical Records Attestation: I reviewed the patient's medical records. Discharge Plan Discharge Chief Complaint: Extremity Injury, Lower Clinical Impression: Sprain of left foot Patient Disposition: Home, Self-Care Time of Disposition Decision: 20:00 Condition: Good Prescriptions / Home Meds: New ketorolac 10 mg tablet 10 mg PO TID PRN (Reason: pain) Qty: 10 0RF No Action pregabalin 75 mg capsule 75 mg PO Q8H clonazepam 0.5 mg tablet 0.5 mg PO Q12H PRN (Reason: anxiety) divalproex 250 mg tablet,delayed release (DR/EC) 750 mg PO BEDTIME haloperidol 5 mg tablet 5 mg PO BID hydroxyzine HCl 50 mg tablet 50 mg PO Q6H PRN (Reason: anxiety) trazodone 50 mg tablet 50 mg PO BEDTIME PRN (Reason: insomnia) venlafaxine 75 mg capsule,extended release 24hr 75 mg PO DAILY clonazepam 0.5 mg tablet 0.5 mg PO BID PRN (Reason: anxiety) Qty: 5 0RF Instructions: Foot Sprain (ED) Stand Alone Forms: Portal Instructions Referrals: Physician,Non-Staff, MD [Primary Care Provider] - 1 week Discharge Date/Time: 06/23/23 20:26
[2023-06-23] MEDS: KETOROLAC TROMETHAMINE 10 MG TABLET PO (20:17)
== END 2023-06-23 20:26 | disposition home or self-care (01) ==
PROVIDERS: Emergency Provider Internal Medicine
DX: S93.602A Unspecified sprain of left foot, initial encounter (principal); X50.1XXA Overexertion from prolonged static or awkward postures, initial encounter; Z79.899 Other long term (current) drug therapy; F17.210 Nicotine dependence, cigarettes, uncomplicated
CPT/HCPCS: 73610; 73630; 99284

== ENCOUNTER 2023-07-02 17:54 | Emergency (ER) | payer OTHER, SELFPAY ==
[2023-07-02 18:00] VITALS: BP 112/72; PULSE 77; RESP 16; TEMP 36.5; O2SAT 98; BMI 22.6
--- NOTE | 2023-07-02 18:15 | ECG_ITS ---
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
--- NOTE | 2023-07-02 18:16 | ED.PSYCH1 ---
HPI - Psych General Chief Complaint: Psychiatric Symptoms Stated Complaint: SCHIZOPHRENIA ACTING UP Time Seen by Provider: 07/02/23 17:55 History of Present Illness HPI Narrative: 38-year-old female presents for hearing voices. She has a history of schizophrenia and over the past four days has been hearing voices. She is not suicidal and hasn't done anything to hurt herself. She states she's taking her medications as prescribed. She wants to be admitted to the psychiatric rehman. She doesn't have any physical complaints except perhaps some mild dysuria. Related Data Home Medications Medication Instructions Recorded Confirmed pregabalin 75 mg capsule 75 mg PO Q8H 05/18/23 06/23/23 clonazepam 0.5 mg tablet 0.5 mg PO Q12H PRN anxiety 06/11/23 06/23/23 divalproex 250 mg tablet,delayed 750 mg PO BEDTIME 06/11/23 06/23/23 release haloperidol 5 mg tablet 5 mg PO BID 06/11/23 06/23/23 hydroxyzine HCl 50 mg tablet 50 mg PO Q6H PRN anxiety 06/11/23 06/23/23 trazodone 50 mg tablet 50 mg PO BEDTIME PRN insomnia 06/11/23 06/23/23 venlafaxine 75 mg capsule,extended 75 mg PO DAILY 06/11/23 06/23/23 release 24 hr Previous Rx's Medication Instructions Recorded clonazepam 0.5 mg tablet 0.5 mg PO BID PRN anxiety #5 tabs 06/14/23 ketorolac 10 mg tablet 10 mg PO TID PRN pain #10 tabs 06/23/23 Allergies Allergy/AdvReac Type Severity Reaction Status Date / Time No Known Drug Allergies Allergy Verified 06/23/23 19:33 Review of Systems ROS Narrative A ten point review of systems is negative except as noted above. PFSH PFSH Social History Smoking status: Current every day smoker Exam Narrative Exam Narrative: Nurses note and vital signs reviewed and patient is not hypoxic. General: The patient appears well and in no apparent distress. Patient is resting comfortably on cart. Skin: Warm, dry, no pallor noted. There is no rash noted. Head: Normocephalic, atraumatic Eye: Normal conjunctiva, no drainage Ears, Nose, Mouth, and Throat: oral mucosa is moist. Nares patent. Cardiovascular: Regular Rate and Rhythm Respiratory: Patient is in no distress, mild rhonchi present Back: non-tender, no CVA tenderness bilaterally to percussion. GI: to nontender Musculoskeletal: The patient has no evidence of calf tenderness, no pitting edema, symmetrical pulses noted bilaterally Neurological: A&O, normal speech Psychiatric: Cooperative Constitutional Vital Signs, click to edit/add: Last Vital Signs Temp 97.7 F 07/02/23 18:00 Pulse 77 07/02/23 18:00 Resp 16 07/02/23 18:00 BP 112/72 07/02/23 18:00 Pulse Ox 98 07/02/23 18:00 O2 Del Method Room Air 07/02/23 18:00 Course Vital Signs Vital signs: Vital Signs Temperature 97.7 F 07/02/23 18:00 Pulse Rate 77 07/02/23 18:00 Respiratory Rate 16 07/02/23 18:00 Blood Pressure 112/72 07/02/23 18:00 Pulse Oximetry 98 07/02/23 18:00 Oxygen Delivery Method Room Air 07/02/23 18:00 Temperature 97.7 F 07/02/23 18:00 Pulse Rate 77 07/02/23 18:00 Respiratory Rate 16 07/02/23 18:00 Blood Pressure 112/72 07/02/23 18:00 Pulse Oximetry 98 07/02/23 18:00 Oxygen Delivery Method Room Air 07/02/23 18:00 MDM - Psych MDM Narrative Medical decision making narrative: tests are ordered and the patient is signed out to Dr. Wells. Differential Diagnosis Differential diagnosis: Likely chronic schizophrenia, depression, drug-induced psychotic disorder and acute anxiety Discharge Plan Discharge Chief Complaint: Psychiatric Symptoms Clinical Impression: Auditory hallucinations Patient Disposition: Still a Patient Prescriptions / Home Meds: No Action pregabalin 75 mg capsule 75 mg PO Q8H clonazepam 0.5 mg tablet 0.5 mg PO Q12H PRN (Reason: anxiety) divalproex 250 mg tablet,delayed release (DR/EC) 750 mg PO BEDTIME haloperidol 5 mg tablet 5 mg PO BID hydroxyzine HCl 50 mg tablet 50 mg PO Q6H PRN (Reason: anxiety) trazodone 50 mg tablet 50 mg PO BEDTIME PRN (Reason: insomnia) venlafaxine 75 mg capsule,extended release 24hr 75 mg PO DAILY ketorolac 10 mg tablet 10 mg PO TID PRN (Reason: pain) Qty: 10 0RF clonazepam 0.5 mg tablet 0.5 mg PO BID PRN (Reason: anxiety) Qty: 5 0RF Referrals: Physician,Non-Staff, MD [Primary Care Provider] - 1 week
[2023-07-02 18:37] LABS: Basophils Percent Auto 0.6 % (0.2-2.0); Eosinophils Absolute Auto 0.1 10^3/uL (0.0-0.7); Hematocrit 36.3 % (36.0-48.0); Hemoglobin 12.4 g/dL (12.0-16.0); Immature Granulocytes Abs Auto 0.01 10^3/uL (0.00-0.03); Immature Granulocytes Pct Auto 0.2 % (0.0-0.5); Lymphocytes Absolute Auto 3.3 10^3/uL (1.2-3.8); Lymphocytes Percent Auto 51.4 % (20.5-60.0); Mean Corpuscular HGB Conc 34.2 g/dL (29.9-35.2); Mean Corpuscular Hemoglobin 31.2 pg (26.7-34.0); Mean Corpuscular Volume 91.2 fL (81.0-99.0); Monocytes Absolute Auto 0.4 10^3/uL (0.3-0.8); Monocytes Percent Auto 6.2 % (1.7-12.0); Neutrophils Absolute Auto 2.5 10^3/uL (1.4-6.5); Neutrophils Percent Auto 39.6 % (43.0-75.0); Platelet Count 219 10^3/uL (150-450); Red Blood Count 3.98 10^6/uL (4.20-5.40); Red Cell Distribution Width 13.1 % (11.0-15.0); White Blood Count 6.4 10^3/uL (4.0-11.0)
[2023-07-02 18:40] LABS: Bilirubin Urine NEGATIVE (NEGATIVE); Blood Urine NEGATIVE (NEGATIVE); Clarity Urine CLEAR (CLEAR); Color Urine YELLOW (YELLOW); Glucose Urine UA NEGATIVE (NEGATIVE); Ketones Urine TRACE mg/dL (NEGATIVE); Leukocyte Esterase Urine TRACE (NEGATIVE); Nitrite Urine NEGATIVE (NEGATIVE); Protein Urine NEGATIVE (NEG/TRACE); Specific Gravity Urine >=1.030 (1.005-1.025); Urobilinogen Urine 0.2 EU/dL (0.2-1.0); pH Urine 5.5 (5.0-9.0)
[2023-07-02 18:48] LABS: Bacteria Urine SMALL #/HPF (NONE SEEN); Cast Seen? NONE SEEN #/LPF (NONE SEEN); Crystals Seen? None Seen #/HPF (None Seen); Mucus Urine NONE SEEN (NONE SEEN); RBC Urine 0-2 #/HPF (0-2); Squamous Epithelial Cell Urine MODERATE #/LPF (NONE/RARE); Urine Culture Indicated YES
[2023-07-02 18:50] LABS: HCG Qualitative NEGATIVE (NEGATIVE)
[2023-07-02 18:51] LABS: Amphetamine Screen Urine NEGATIVE (NEGATIVE); Barbiturates Screen Urine NEGATIVE (NEGATIVE); Benzodiazepines Screen Urine POSITIVE (NEGATIVE); Buprenorphine Screen Urine NEGATIVE (NEGATIVE); Cannabinoid Screen Urine NEGATIVE (NEGATIVE); Cocaine Screen Urine NEGATIVE (NEGATIVE); Methadone Screen Urine POSITIVE (NEGATIVE); Methamphetamines Screen Urine NEGATIVE (NEGATIVE); Opiate Screen Urine NEGATIVE (NEGATIVE); Oxycodone Screen Urine NEGATIVE (NEGATIVE); Phencyclidine Screen Urine NEGATIVE (NEGATIVE); Tricyclic Antidepressant Urine NEGATIVE (NEGATIVE)
[2023-07-02 18:55] LABS: Alanine Aminotransferase 16 U/L (14-59); Albumin Level 3.7 g/dL (3.4-5.0); Alkaline Phosphatase 48 U/L (46-116); Anion Gap 11.3; Aspartate Amino Transferase 11 U/L (15-37); BUN Creatinine Ratio 20.2; Bilirubin Direct <0.1 mg/dL (0.0-0.2); Bilirubin Total 0.1 mg/dL (0.2-1.0); Carbon Dioxide 27.9 mmol/L (21.0-32.0); Chloride 103 mmol/L (98-107); Estimated GFR (African America >60 (>=60); Estimated GFR (Non-African Ame >60 (>=60); Globulin 3.7 g/dL; Glucose 95 mg/dL (74-106); Potassium 4.2 mmol/L (3.5-5.1); Sodium 138 mmol/L (136-145); Total Protein 7.4 g/dL (6.4-8.2)
[2023-07-02 18:56] VITALS: PULSE 70
[2023-07-02 19:02] LABS: Acetaminophen <2.0 ug/mL (10.0-30.0)
[2023-07-02 19:03] LABS: Ethanol <3 mg/dL
[2023-07-02] MEDS: LORAZEPAM 0.5 MG TABLET 1 MG PO (20:39)
[2023-07-02 21:30] VITALS: BP 117/70; PULSE 70; RESP 12; TEMP 36.6; O2SAT 98
--- NOTE | 2023-07-02 21:45 | ED.PSYCH1 ---
HPI - Psych General Chief Complaint: Psychiatric Symptoms Stated Complaint: SCHIZOPHRENIA ACTING UP Time Seen by Provider: 07/02/23 17:55 History of Present Illness HPI Narrative: As 38-year-old female with a history of bipolar disorder and schizophrenia was signed out to me at shift change pending labs for medical clearance for psychiatric admission. She presents for evaluation of hallucinations and requests to be transferred to [address] [place] [address]. She was seen and evaluated. She requests something for anxiety. She has been pacing about the room and in and out of the room. She is here with her boyfriend. She denies any suicidal ideation. She agreed to an oral dose of Ativan. I reviewed her labs. She is positive for methadone and benzodiazepines both of which appear to be prescribed to her. She is otherwise medically cleared for psychiatric admission. She spoke to [facility] and was ultimately accepted for transfer to [facility] by Dr. Shields. Related Data Home Medications Medication Instructions Recorded Confirmed divalproex 250 mg tablet,delayed 750 mg PO BEDTIME 06/11/23 07/02/23 release haloperidol 5 mg tablet 5 mg PO BID 06/11/23 07/02/23 hydroxyzine HCl 50 mg tablet 50 mg PO Q6H PRN anxiety 06/11/23 07/02/23 albuterol sulfate 90 mcg/actuation 2 puff inhalation Q6H PRN 07/02/23 07/02/23 aerosol inhaler shortness of breath or wheezing clonazepam 1 mg tablet 0.5 mg PO Q8H PRN insomnia 07/02/23 07/02/23 methadone 5 mg/5 mL oral solution 144 mg PO QDAY 07/02/23 07/02/23 pregabalin 100 mg capsule 100 mg PO Q8H 07/02/23 07/02/23 Previous Rx's Medication Instructions Recorded ketorolac 10 mg tablet 10 mg PO TID PRN pain #10 tabs 06/23/23 Allergies Allergy/AdvReac Type Severity Reaction Status Date / Time No Known Drug Allergies Allergy Verified 06/23/23 19:33 PFSH PFSH Social History Smoking status: Current every day smoker Exam Constitutional Vital Signs, click to edit/add: Last Vital Signs Temp 97.7 F 07/02/23 18:00 Pulse 77 07/02/23 18:00 Resp 16 07/02/23 18:00 BP 112/72 07/02/23 18:00 Pulse Ox 98 07/02/23 18:00 O2 Del Method Room Air 07/02/23 18:00 Course Vital Signs Vital signs: Vital Signs Temperature 97.7 F 07/02/23 18:00 Pulse Rate 77 07/02/23 18:00 Respiratory Rate 16 07/02/23 18:00 Blood Pressure 112/72 07/02/23 18:00 Pulse Oximetry 98 07/02/23 18:00 Oxygen Delivery Method Room Air 07/02/23 18:00 Temperature 97.7 F 07/02/23 18:00 Pulse Rate 77 07/02/23 18:00 Respiratory Rate 16 07/02/23 18:00 Blood Pressure 112/72 07/02/23 18:00 Pulse Oximetry 98 07/02/23 18:00 Oxygen Delivery Method Room Air 07/02/23 18:00 MDM - Psych Lab Data Labs: Lab Results 07/02/23 07/02/23 Range/Units 18:05 18:26 WBC 6.4 (4.0-11.0) 10^3/uL RBC 3.98 L (4.20-5.40) 10^6/uL Hgb 12.4 (12.0-16.0) g/dL Hct 36.3 (36.0-48.0) % MCV 91.2 (81.0-99.0) fL MCH 31.2 (26.7-34.0) pg MCHC 34.2 (29.9-35.2) g/dL RDW 13.1 (11.0-15.0) % Plt Count 219 (150-450) 10^3/uL MPV 11.0 (9.5-13.5) fL Neut % (Auto) 39.6 L (43.0-75.0) % Lymph % (Auto) 51.4 (20.5-60.0) % [place] % (Auto) 6.2 (1.7-12.0) % Eos % (Auto) 2.0 (0.9-7.0) % Baso % (Auto) 0.6 (0.2-2.0) % Neut # (Auto) 2.5 (1.4-6.5) 10^3/uL Lymph # (Auto) 3.3 (1.2-3.8) 10^3/uL [place] # (Auto) 0.4 (0.3-0.8) 10^3/uL Eos # (Auto) 0.1 (0.0-0.7) 10^3/uL Baso # (Auto) 0.0 (0.0-0.1) 10^3/uL Abs Immat Gran (auto) 0.01 (0.00-0.03) 10^3/uL Imm/Tot Granulo (auto) 0.2 (0.0-0.5) % Sodium 138 (136-145) mmol/L Potassium 4.2 (3.5-5.1) mmol/L Chloride 103 (98-107) mmol/L Carbon Dioxide 27.9 (21.0-32.0) mmol/L Anion Gap 11.3 BUN 19.0 H (7.0-18.0) mg/dL Creatinine 0.94 (0.55-1.02) mg/dL Est GFR ( Amer) >60 (>=60) Est GFR (Non-Af Amer) >60 (>=60) BUN/Creatinine Ratio 20.2 Glucose 95 (74-106) mg/dL Calcium 9.0 (8.5-10.1) mg/dL Total Bilirubin 0.1 L (0.2-1.0) mg/dL Direct Bilirubin <0.1 (0.0-0.2) mg/dL AST 11 L (15-37) U/L ALT 16 (14-59) U/L Alkaline Phosphatase 48 (46-116) U/L Total Protein 7.4 (6.4-8.2) g/dL Albumin 3.7 (3.4-5.0) g/dL Globulin 3.7 g/dL Albumin/Globulin Ratio 1.0 Serum HCG, Qual Negative (NEGATIVE) Urine Color Yellow (YELLOW) Urine Clarity Clear (CLEAR) Urine pH 5.5 (5.0-9.0) Ur Specific [place] >=1.030 A (1.005-1.025) Urine Protein Negative (NEG/TRACE) mg/dL Urine Glucose (UA) Negative (NEGATIVE) mg/dL Urine Ketones Trace A (NEGATIVE) mg/dL Urine Occult Blood Negative (NEGATIVE) Urine Nitrite Negative (NEGATIVE) Urine Bilirubin Negative (NEGATIVE) Urine Urobilinogen 0.2 (0.2-1.0) EU/dL Ur Leukocyte Esterase Trace A (NEGATIVE) Urine RBC 0-2 (0-2) #/HPF Urine WBC 2-5 A (NONE SEEN) #/HPF Ur Squamous Epith Cells Moderate A (NONE/RARE) #/LPF Urine Crystals None seen (None Seen) #/HPF Urine Bacteria Small A (NONE SEEN) #/HPF Urine Casts None seen (NONE SEEN) #/LPF Urine Mucus None seen (NONE SEEN) Ur Culture Indicated? Yes Salicylates 4.0 (<=19.9) mg/dL Urine Opiates Screen Negative (NEGATIVE) Ur Buprenorphine Scrn Negative (NEGATIVE) Ur Oxycodone Screen Negative (NEGATIVE) Urine Methadone Screen Positive A (NEGATIVE) Ur Propoxyphene Screen Negative (NEGATIVE) Acetaminophen <2.0 L (10.0-30.0) ug/mL Ur Barbiturates Screen Negative (NEGATIVE) U Tricyclic Antidepress Negative (NEGATIVE) Ur Phencyclidine Scrn Negative (NEGATIVE) Ur Amphetamines Screen Negative (NEGATIVE) U Methamphetamines Scrn Negative (NEGATIVE) U Benzodiazepines Scrn Positive A (NEGATIVE) Urine Cocaine Screen Negative (NEGATIVE) U Cannabinoids Screen Negative (NEGATIVE) Ethanol Quant <3 mg/dL Discharge Plan Discharge Chief Complaint: Psychiatric Symptoms Clinical Impression: Auditory hallucinations, Schizophrenia Patient Disposition: [facility] Time of Disposition Decision: 21:49 Discharge Location: [facility] Condition: Good Prescriptions / Home Meds: No Action divalproex 250 mg tablet,delayed release (DR/EC) 750 mg PO BEDTIME haloperidol 5 mg tablet 5 mg PO BID hydroxyzine HCl 50 mg tablet 50 mg PO Q6H PRN (Reason: anxiety) ketorolac 10 mg tablet 10 mg PO TID PRN (Reason: pain) Qty: 10 0RF clonazepam 1 mg tablet 0.5 mg PO Q8H PRN (Reason: insomnia) pregabalin 100 mg capsule 100 mg PO Q8H albuterol sulfate 90 mcg/actuation HFA aerosol inhaler 2 puff INHALATION Q6H PRN (Reason: shortness of breath or wheezing) methadone 5 mg/5 mL solution 144 mg PO QDAY Referrals: Physician,Non-Staff, MD [Primary Care Provider] - 1 week
== END 2023-07-02 22:36 ==
PROVIDERS: Emergency Medicine; Emergency Provider Emergency Medicine
DX: F20.9 Schizophrenia, unspecified (principal); F31.9 Bipolar disorder, unspecified; Z79.899 Other long term (current) drug therapy; F17.210 Nicotine dependence, cigarettes, uncomplicated
CPT/HCPCS: 36415; 80048; 80076; 80179; 80307; 80320; 80329; 81001; 84703; 85025; 87086; 93005; 99285

== ENCOUNTER 2023-08-23 08:04 | Emergency (ER) | payer OTHER, SELFPAY ==
[2023-08-23 08:11] VITALS: BP 120/79; PULSE 77; RESP 18; TEMP 36.6; BMI 23.3
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
== END 2023-08-23 09:18 | disposition home or self-care (01) ==
PROVIDERS: Emergency Provider Emergency Medicine
DX: S51.852A Open bite of left forearm, initial encounter (principal); S01.85XA Open bite of other part of head, initial encounter; F11.10 Opioid abuse, uncomplicated; W54.0XXA Bitten by dog, initial encounter; Z79.899 Other long term (current) drug therapy; F17.210 Nicotine dependence, cigarettes, uncomplicated
CPT/HCPCS: 99281

== ENCOUNTER 2023-08-23 17:06 | Emergency (ER) | payer OTHER, SELFPAY ==
[2023-08-23 17:09] VITALS: BP 127/79; PULSE 97; RESP 18; TEMP 37.1; O2SAT 100; BMI 23.3
--- NOTE | 2023-08-23 17:20 | PC.NURSE ---
Pt reports being seen in ED earlier today and discharged home with scripts, unable to pick them up due to not having a ride. Pt reports increased swelling in left hand.
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
[2023-08-23] MEDS: AMOXICILLIN/POTASSIUM CLAV 1 TAB TABLET PO (17:35)
[2023-08-23] MEDS: ADACEL DIPH,PERTUSS(ACELL),TET VAC/PF 0.5 ML ADULT SYRINGE IM (17:35)
== END 2023-08-23 17:55 | disposition home or self-care (01) ==
PROVIDERS: Emergency Provider Emergency Medicine
DX: S51.852A Open bite of left forearm, initial encounter (principal); S01.85XA Open bite of other part of head, initial encounter; W54.0XXA Bitten by dog, initial encounter; Z23 Encounter for immunization; Z79.899 Other long term (current) drug therapy; F17.210 Nicotine dependence, cigarettes, uncomplicated; F11.10 Opioid abuse, uncomplicated
CPT/HCPCS: 90471; 90715; 99281; 99283

== ENCOUNTER 2023-09-09 18:56 | Emergency (ER) | payer OTHER, SELFPAY ==
[2023-09-09 19:02] VITALS: BP 143/86; PULSE 74; RESP 14; TEMP 36.7; O2SAT 97; BMI 23.3
--- NOTE | 2023-09-09 19:30 | ECG_ITS ---
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
--- NOTE | 2023-09-09 19:32 | ED_ITS ---
HPI - Anxiety General Chief Complaint: Anxiety Stated Complaint: anxiety Time Seen by Provider: 09/09/23 19:25 Source: patient Mode of arrival: walk-in Limitations: no limitations History of Present Illness HPI narrative: patient has past history of mental health. history of auditory hallucinations and anxiety. States she has been without her mental health medication for past 3 days. States she was staying at a friends home and had to leave as it was not a good environment. States she left all her medications. She did not want to go back to the house. she now presents anxious. States she feels like she needs to go to [address] [place] [address] for assistance Related Data Home Medications Medication Instructions Recorded Confirmed divalproex 250 mg tablet,delayed 750 mg PO BEDTIME 06/11/23 09/09/23 release albuterol sulfate 90 mcg/actuation 2 puff inhalation Q6H PRN 07/02/23 09/09/23 aerosol inhaler shortness of breath or wheezing clonazepam 1 mg tablet 0.5 mg PO Q8H PRN insomnia 07/02/23 09/09/23 methadone 5 mg/5 mL oral solution 130 mg PO QDAY 07/02/23 09/09/23 pregabalin 100 mg capsule 100 mg PO Q8H 07/02/23 09/09/23 dextroamphetamine-amphetamine 10 20 mg PO BID 09/09/23 09/09/23 mg tablet quetiapine 150 mg tablet 150 mg PO .qhs 09/09/23 09/09/23 quetiapine 25 mg tablet 50 mg PO QDAY 09/09/23 09/09/23 Allergies Allergy/AdvReac Type Severity Reaction Status Date / Time No Known Drug Allergies Allergy Verified 09/09/23 19:02 Review of Systems ROS Status of ROS 10 or more systems reviewed and unremarkable except as noted in history and below PFSH PFS Social History Smoking status: Current every day smoker Exam Constitutional Vital Signs, click to edit/add: Last Vital Signs Temp 98.0 F 09/09/23 19:02 Pulse 74 09/09/23 19:02 Resp 14 09/09/23 19:02 BP 143/86 H 09/09/23 19:02 Pulse Ox 97 09/09/23 19:02 O2 Del Method Room Air 09/09/23 19:02 Common normals: no apparent distress, average body habitus, oriented x3, healthy appearing, alert and well nourished Other: figmili HENMT Common normals: normocephalic and head/scalp atraumatic Eye Common normals: PERRL, EOMs intact bilaterally and conjunctivae normal Respiratory Common normals: normal respiratory effort, no retractions, no use of accessory muscles and clear to auscultation bilaterally Cardio Common normals: regular rate, regular rhythm, S1 normal heart sound and S2 normal heart sound GI Common normals: Normal to inspection, nondistended, normoactive bowel sounds present, soft to palpation and non-tender Extremity Common normals: normal to inspection and full ROM Neuro Common normals: oriented x3, CN's II-XII intact bilaterally, moves all extremities and no focal motor deficits Psych Appearance: grossly normal Course Vital Signs Vital signs: Vital Signs Temperature 98.0 F 09/09/23 19:02 Pulse Rate 74 09/09/23 19:02 Respiratory Rate 14 09/09/23 19:02 Blood Pressure 143/86 H 09/09/23 19:02 Pulse Oximetry 97 09/09/23 19:02 Oxygen Delivery Method Room Air 09/09/23 19:02 Temperature 98.0 F 09/09/23 19:02 Pulse Rate 74 09/09/23 19:02 Respiratory Rate 14 09/09/23 19:02 Blood Pressure 143/86 H 09/09/23 19:02 Pulse Oximetry 97 09/09/23 19:02 Oxygen Delivery Method Room Air 09/09/23 19:02 MDM - Anxiety MDM Narrative Medical decision making narrative: patient presents anxious. States she has been without her mental health meds for at least 3 days. She is not suicidal. Mental health contacted and were able to get in contact with her psychiatrist. Her medications have been called in to pharmacy so she can pick them up tomorrow. she was given dose of klonipin while here in the department and this has help. Will discharge home with a dose of klonipin to use tonight and she can follow up with her psychiatrist Lab Data Labs: Lab Results 09/09/23 09/09/23 Range/Units 19:37 19:47 WBC 7.4 (4.0-11.0) 10^3/uL RBC 4.14 L (4.20-5.40) 10^6/uL Hgb 12.8 (12.0-16.0) g/dL Hct 38.0 (36.0-48.0) % MCV 91.8 (81.0-99.0) fL MCH 30.9 (26.7-34.0) pg MCHC 33.7 (29.9-35.2) g/dL RDW 12.4 (11.0-15.0) % Plt Count 225 (150-450) 10^3/uL MPV 11.8 (9.5-13.5) fL Neut % (Auto) 70.8 (43.0-75.0) % Lymph % (Auto) 24.6 (20.5-60.0) % [place] % (Auto) 3.9 (1.7-12.0) % Eos % (Auto) 0.3 L (0.9-7.0) % Baso % (Auto) 0.3 (0.2-2.0) % Neut # (Auto) 5.2 (1.4-6.5) 10^3/uL Lymph # (Auto) 1.8 (1.2-3.8) 10^3/uL [place] # (Auto) 0.3 (0.3-0.8) 10^3/uL Eos # (Auto) 0.0 (0.0-0.7) 10^3/uL Baso # (Auto) 0.0 (0.0-0.1) 10^3/uL Abs Immat Gran (auto) 0.01 (0.00-0.03) 10^3/uL Imm/Tot Granulo (auto) 0.1 (0.0-0.5) % Sodium 137 (136-145) mmol/L Potassium 3.9 (3.5-5.1) mmol/L Chloride 102 (98-107) mmol/L Carbon Dioxide 25.3 (21.0-32.0) mmol/L Anion Gap 13.6 BUN 17.0 (7.0-18.0) mg/dL Creatinine 0.78 (0.55-1.02) mg/dL Est GFR ( Amer) >60 (>=60) Est GFR (Non-Af Amer) >60 (>=60) BUN/Creatinine Ratio 21.8 Glucose 131 H (74-106) mg/dL Calcium 9.2 (8.5-10.1) mg/dL Total Bilirubin 0.2 (0.2-1.0) mg/dL AST 12 L (15-37) U/L ALT 12 L (14-59) U/L Alkaline Phosphatase 56 (46-116) U/L Total Protein 7.7 (6.4-8.2) g/dL Albumin 3.5 (3.4-5.0) g/dL Globulin 4.2 g/dL Albumin/Globulin Ratio 0.8 Salicylates 6.3 (<=19.9) mg/dL Urine Opiates Screen Negative (NEGATIVE) Ur Buprenorphine Scrn Negative (NEGATIVE) Ur Oxycodone Screen Negative (NEGATIVE) Urine Methadone Screen Positive A (NEGATIVE) Acetaminophen <2.0 L (10.0-30.0) ug/mL Ur Barbiturates Screen Negative (NEGATIVE) U Tricyclic Antidepress Positive A (NEGATIVE) Ur Phencyclidine Scrn Negative (NEGATIVE) Ur Amphetamines Screen Negative (NEGATIVE) U Methamphetamines Scrn Negative (NEGATIVE) U Benzodiazepines Scrn Positive A (NEGATIVE) Urine Cocaine Screen Negative (NEGATIVE) U Cannabinoids Screen Negative (NEGATIVE) Discharge Plan Discharge Chief Complaint: Anxiety Clinical Impression: Acute anxiety Patient Disposition: Home, Self-Care Prescriptions / Home Meds: No Action divalproex 250 mg tablet,delayed release (DR/EC) 750 mg PO BEDTIME clonazepam 1 mg tablet 0.5 mg PO Q8H PRN (Reason: insomnia) pregabalin 100 mg capsule 100 mg PO Q8H albuterol sulfate 90 mcg/actuation HFA aerosol inhaler 2 puff INHALATION Q6H PRN (Reason: shortness of breath or wheezing) methadone 5 mg/5 mL solution 130 mg PO QDAY dextroamphetamine-amphetamine 10 mg tablet 20 mg PO BID quetiapine 150 mg tablet 150 mg PO .qhs quetiapine 25 mg tablet 50 mg PO QDAY Rx Instructions: 2pm Instructions: Anxiety (ED) Additional Instructions: Prescriptions being sent to [facility], 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 Stand Alone Forms: Portal Instructions Referrals: Physician,Non-Staff, MD [Primary Care Provider] - 1 week
[2023-09-09] MEDS: CLONAZEPAM 0.5 MG TABLET PO ×2 (19:46→21:32)
[2023-09-09 20:18] LABS: Basophils Percent Auto 0.3 % (0.2-2.0); Eosinophils Percent Auto 0.3 % (0.9-7.0); Hemoglobin 12.8 g/dL (12.0-16.0); Immature Granulocytes Abs Auto 0.01 10^3/uL (0.00-0.03); Immature Granulocytes Pct Auto 0.1 % (0.0-0.5); Lymphocytes Absolute Auto 1.8 10^3/uL (1.2-3.8); Lymphocytes Percent Auto 24.6 % (20.5-60.0); Mean Corpuscular HGB Conc 33.7 g/dL (29.9-35.2); Mean Corpuscular Hemoglobin 30.9 pg (26.7-34.0); Mean Corpuscular Volume 91.8 fL (81.0-99.0); Mean Platelet Volume 11.8 fL (9.5-13.5); Monocytes Absolute Auto 0.3 10^3/uL (0.3-0.8); Monocytes Percent Auto 3.9 % (1.7-12.0); Neutrophils Absolute Auto 5.2 10^3/uL (1.4-6.5); Neutrophils Percent Auto 70.8 % (43.0-75.0); Platelet Count 225 10^3/uL (150-450); Red Blood Count 4.14 10^6/uL (4.20-5.40); Red Cell Distribution Width 12.4 % (11.0-15.0); White Blood Count 7.4 10^3/uL (4.0-11.0)
[2023-09-09 20:22] LABS: Amphetamine Screen Urine NEGATIVE (NEGATIVE); Barbiturates Screen Urine NEGATIVE (NEGATIVE); Benzodiazepines Screen Urine POSITIVE (NEGATIVE); Buprenorphine Screen Urine NEGATIVE (NEGATIVE); Cannabinoid Screen Urine NEGATIVE (NEGATIVE); Cocaine Screen Urine NEGATIVE (NEGATIVE); Methadone Screen Urine POSITIVE (NEGATIVE); Methamphetamines Screen Urine NEGATIVE (NEGATIVE); Opiate Screen Urine NEGATIVE (NEGATIVE); Oxycodone Screen Urine NEGATIVE (NEGATIVE); Phencyclidine Screen Urine NEGATIVE (NEGATIVE); Tricyclic Antidepressant Urine POSITIVE (NEGATIVE)
[2023-09-09 20:31] LABS: Acetaminophen <2.0 ug/mL (10.0-30.0); Alanine Aminotransferase 12 U/L (14-59); Albumin Globulin Ratio 0.8; Albumin Level 3.5 g/dL (3.4-5.0); Alkaline Phosphatase 56 U/L (46-116); Anion Gap 13.6; Aspartate Amino Transferase 12 U/L (15-37); BUN Creatinine Ratio 21.8; Bilirubin Total 0.2 mg/dL (0.2-1.0); Calcium 9.2 mg/dL (8.5-10.1); Carbon Dioxide 25.3 mmol/L (21.0-32.0); Chloride 102 mmol/L (98-107); Estimated GFR (African America >60 (>=60); Estimated GFR (Non-African Ame >60 (>=60); Globulin 4.2 g/dL; Glucose 131 mg/dL (74-106); Potassium 3.9 mmol/L (3.5-5.1); Salicylate 6.3 mg/dL (<=19.9); Sodium 137 mmol/L (136-145); Total Protein 7.7 g/dL (6.4-8.2)
[2023-09-09 21:35] VITALS: PULSE 84; RESP 14; O2SAT 96
== END 2023-09-09 21:35 | disposition home or self-care (01) ==
PROVIDERS: Emergency Provider Internal Medicine
DX: F41.9 Anxiety disorder, unspecified (principal); Z79.899 Other long term (current) drug therapy; F17.210 Nicotine dependence, cigarettes, uncomplicated
CPT/HCPCS: 36415; 80053; 80179; 80307; 80329; 85025; 93005; 99285

== ENCOUNTER 2023-09-10 17:09 | Emergency (ER) | payer OTHER, SELFPAY ==
[2023-09-10 17:12] VITALS: BP 117/86; PULSE 89; RESP 16; TEMP 36.8; O2SAT 99; BMI 23.3
--- NOTE | 2023-09-10 17:28 | ED.GENADUL1 ---
HPI - General Adult General Chief complaint: Recheck/Abnormal Lab/Rx Stated complaint: anxiety, mom just Time Seen by Provider: 09/10/23 17:13 Mode of arrival: walk-in Limitations: no limitations History of Present Illness HPI narrative: Patient is a 38-year-old female well-known to this emergency department for multiple psychiatric disorders as well as anxiety. She states that her mother this morning, she is not able to fill her Klonopin or Adderall until Thursday from her psychiatrist and she does not have access to her prescriptions as she is homeless and her prescriptions are at a friend's house who is out of town. She is essentially requesting 2 days worth of her medication until she can fill it on Thursday. She has no suicidal or homicidal ideation. She has no focal medical complaints. Related Data Home Medications Medication Instructions Recorded Confirmed divalproex 250 mg tablet,delayed 750 mg PO BEDTIME 06/11/23 09/09/23 release albuterol sulfate 90 mcg/actuation 2 puff inhalation Q6H PRN 07/02/23 09/09/23 aerosol inhaler shortness of breath or wheezing clonazepam 1 mg tablet 0.5 mg PO Q8H PRN insomnia 07/02/23 09/09/23 methadone 5 mg/5 mL oral solution 130 mg PO QDAY 07/02/23 09/09/23 pregabalin 100 mg capsule 100 mg PO Q8H 07/02/23 09/09/23 dextroamphetamine-amphetamine 10 20 mg PO BID 09/09/23 09/09/23 mg tablet quetiapine 150 mg tablet 150 mg PO .qhs 09/09/23 09/09/23 quetiapine 25 mg tablet 50 mg PO QDAY 09/09/23 09/09/23 Previous Rx's Medication Instructions Recorded clonazepam 0.5 mg tablet (Klonopin) 0.5 mg PO Q8H PRN anxiety #6 tabs 09/10/23 dextroamphetamine-amphetamine 10 20 mg PO BID #8 tabs 09/10/23 mg tablet (Adderall) Allergies Allergy/AdvReac Type Severity Reaction Status Date / Time No Known Drug Allergies Allergy Verified 09/10/23 17:12 Review of Systems ROS Constitutional Denies: fever or chills Ears, nose, mouth, and throat Denies: throat pain Cardiovascular Denies: chest pain Respiratory Denies: shortness of breath or cough Gastrointestinal Denies: nausea or vomiting Psychiatric Reports: anxiety Allergic/Immunologic Denies: hives PFSH PFSH Social History Smoking status: Current every day smoker Exam Narrative Exam Narrative: Gen.: Awake, alert, in no distress Head: Normocephalic, atraumatic ENT: Moist mucous membranes Respiratory: No respiratory distress Extremities: Moves extremities equally Psych: Mildly anxious but cooperative, denies suicidal or homicidal ideation Neuro: No focal neuro deficit Skin: Warm, dry, intact Constitutional Vital Signs, click to edit/add: Last Vital Signs Temp 98.2 F 09/10/23 17:12 Pulse 89 09/10/23 17:12 Resp 16 09/10/23 17:12 BP 117/86 09/10/23 17:12 Pulse Ox 99 09/10/23 17:12 O2 Del Method Room Air 09/10/23 17:12 Course Vital Signs Vital signs: Vital Signs Temperature 98.2 F 09/10/23 17:12 Pulse Rate 89 09/10/23 17:12 Respiratory Rate 16 09/10/23 17:12 Blood Pressure 117/86 09/10/23 17:12 Pulse Oximetry 99 09/10/23 17:12 Oxygen Delivery Method Room Air 09/10/23 17:12 Temperature 98.2 F 09/10/23 17:12 Pulse Rate 89 09/10/23 17:12 Respiratory Rate 16 09/10/23 17:12 Blood Pressure 117/86 09/10/23 17:12 Pulse Oximetry 99 09/10/23 17:12 Oxygen Delivery Method Room Air 09/10/23 17:12 Medical Decision Making [facility] Narrative Medical decision making narrative: [facility] reviewed and the patient has not had any prescriptions filled today for these medications, she is given a 2-day prescription of Klonopin and Adderall until she can have her prescriptions filled on Thursday. She was made aware of the limitations of medication refills for controlled substances from the emergency department. Follow-up with psychiatry and return to the ER if symptoms change or worsen. Medical Records Medical records reviewed: Yes I reviewed the patient's medical records Discharge Plan Discharge Chief Complaint: Recheck/Abnormal Lab/Rx Clinical Impression: Medication refill, Acute anxiety Patient Disposition: Home, Self-Care Time of Disposition Decision: 17:24 Condition: Good Prescriptions / Home Meds: New dextroamphetamine-amphetamine [Adderall] 10 mg tablet 20 mg PO BID Qty: 8 0RF Rx Instructions: administer doses at least 4-6 hours apart clonazepam [Klonopin] 0.5 mg tablet 0.5 mg PO Q8H PRN (Reason: anxiety) Qty: 6 0RF Rx Instructions: DX: F41.9 No Action divalproex 250 mg tablet,delayed release (DR/EC) 750 mg PO BEDTIME clonazepam 1 mg tablet 0.5 mg PO Q8H PRN (Reason: insomnia) pregabalin 100 mg capsule 100 mg PO Q8H albuterol sulfate 90 mcg/actuation HFA aerosol inhaler 2 puff INHALATION Q6H PRN (Reason: shortness of breath or wheezing) methadone 5 mg/5 mL solution 130 mg PO QDAY dextroamphetamine-amphetamine 10 mg tablet 20 mg PO BID quetiapine 150 mg tablet 150 mg PO .qhs quetiapine 25 mg tablet 50 mg PO QDAY Rx Instructions: 2pm Instructions: Medicine Refill (ED) Stand Alone Forms: Portal Instructions Referrals: RAHEL THORNTON [Primary Care Provider] - 1 week
== END 2023-09-10 17:39 | disposition home or self-care (01) ==
PROVIDERS: Emergency Provider Emergency Medicine Emergency Medical Services; PCP Nurse Practitioner Family
DX: Z76.0 Encounter for issue of repeat prescription (principal); F41.9 Anxiety disorder, unspecified; Z79.899 Other long term (current) drug therapy; Z59.00 Homelessness unspecified
CPT/HCPCS: 99283

== ENCOUNTER 2023-09-26 00:06 | Emergency (ER) | payer OTHER, SELFPAY ==
[2023-09-26 00:12] VITALS: BP 114/63; PULSE 82; RESP 18; TEMP 36.9; O2SAT 97; BMI 21.0
--- NOTE | 2023-09-26 00:29 | ED_ITS ---
HPI - Anxiety General Chief Complaint: Anxiety Stated Complaint: ANXIETY Time Seen by Provider: 09/26/23 00:17 Source: patient Mode of arrival: walk-in History of Present Illness HPI narrative: patient states she left her anxiety medications at someone's home. She used Fentanyl earlier tonight and feels like she is starting to withdrawal. she also does not have a ride and is wondering if she can stay in the ED all night. No vomiting or diarrhea. Not short of breath and no trembling MD complaint: Reports anxiety Related Data Home Medications Medication Instructions Recorded Confirmed divalproex 250 mg tablet,delayed 750 mg PO BEDTIME 06/11/23 09/09/23 release albuterol sulfate 90 mcg/actuation 2 puff inhalation Q6H PRN 07/02/23 09/09/23 aerosol inhaler shortness of breath or wheezing clonazepam 1 mg tablet 0.5 mg PO Q8H PRN insomnia 07/02/23 09/09/23 methadone 5 mg/5 mL oral solution 130 mg PO QDAY 07/02/23 09/09/23 pregabalin 100 mg capsule 100 mg PO Q8H 07/02/23 09/09/23 dextroamphetamine-amphetamine 10 20 mg PO BID 09/09/23 09/09/23 mg tablet quetiapine 150 mg tablet 150 mg PO .qhs 09/09/23 09/09/23 quetiapine 25 mg tablet 50 mg PO QDAY 09/09/23 09/09/23 Previous Rx's Medication Instructions Recorded clonazepam 0.5 mg tablet (Klonopin) 0.5 mg PO Q8H PRN anxiety #6 tabs 09/10/23 dextroamphetamine-amphetamine 10 20 mg (2 x 10 mg) PO BID #8 tabs 09/10/23 mg tablet (Adderall) Allergies Allergy/AdvReac Type Severity Reaction Status Date / Time No Known Drug Allergies Allergy Verified 09/26/23 00:21 Review of Systems ROS Status of ROS 10 or more systems reviewed and unremark able except as noted in history and below PFSH PFS Social History Smoking status: Current every day smoker Exam Constitutional Vital Signs, click to edit/add: Last Vital Signs Temp 98.5 F 09/26/23 00:12 Pulse 82 09/26/23 00:12 Resp 18 09/26/23 00:12 BP 114/63 09/26/23 00:12 Pulse Ox 97 09/26/23 00:12 Common normals: no apparent distress, average body habitus, oriented x3, no limitations, healthy appearing, alert and well nourished Eye Common normals: PERRL and EOMs intact bilaterally Respiratory Common normals: normal respiratory effort, no retractions, no use of accessory muscles and clear to auscultation bilaterally Cardio Common normals: regular rate and regular rhythm Extremity Common normals: normal to inspection and full ROM Neuro Common normals: oriented x3, CN's II-XII intact bilaterally, moves all extremities and no focal motor deficits Psych Appearance: grossly normal Course Vital Signs Vital signs: Vital Signs Temperature 98.5 F 09/26/23 00:12 Pulse Rate 82 09/26/23 00:12 Respiratory Rate 18 09/26/23 00:12 Blood Pressure 114/63 09/26/23 00:12 Pulse Oximetry 97 09/26/23 00:12 Temperature 98.5 F 09/26/23 00:12 Pulse Rate 82 09/26/23 00:12 Respiratory Rate 18 09/26/23 00:12 Blood Pressure 114/63 09/26/23 00:12 Pulse Oximetry 97 09/26/23 00:12 MDM - Anxiety MDM Narrative Medical decision making narrative: patient presents complaining of anxiety and possible withdrawal from Fentanyl. No clinical signs of withdrawal. No nausea, diarrhea, piloerection or tremors. Patient given dose of Ativan and was able to relax. Discharged home. Discharge Plan Discharge Chief Complaint: Anxiety Clinical Impression: Anxiety Patient Disposition: Home, Self-Care Prescriptions / Home Meds: No Action divalproex 250 mg tablet,delayed release (DR/EC) 750 mg PO BEDTIME clonazepam 1 mg tablet 0.5 mg PO Q8H PRN (Reason: insomnia) pregabalin 100 mg capsule 100 mg PO Q8H albuterol sulfate 90 mcg/actuation HFA aerosol inhaler 2 puff INHALATION Q6H PRN (Reason: shortness of breath or wheezing) methadone 5 mg/5 mL solution 130 mg PO QDAY dextroamphetamine-amphetamine [Adderall] 10 mg tablet 20 mg PO BID Qty: 8 0RF Rx Instructions: administer doses at least 4-6 hours apart clonazepam [Klonopin] 0.5 mg tablet 0.5 mg PO Q8H PRN (Reason: anxiety) Qty: 6 0RF Rx Instructions: DX: 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
[2023-09-26] MEDS: LORAZEPAM 1 MG TABLET PO (00:38)
--- NOTE | 2023-09-26 02:02 | PC.NURSE ---
patient is sleeping, did not awake when nurse opened door to check on her. Patient respirations even and unlabored.
== END 2023-09-26 05:48 | disposition home or self-care (01) ==
PROVIDERS: Emergency Provider Internal Medicine; PCP Nurse Practitioner Family
DX: F41.9 Anxiety disorder, unspecified (principal); F17.210 Nicotine dependence, cigarettes, uncomplicated; Z79.899 Other long term (current) drug therapy
CPT/HCPCS: 99283

== ENCOUNTER 2023-09-29 23:05 | Emergency (ER) | payer OTHER, SELFPAY ==
[2023-09-29 23:10] VITALS: BP 133/79; PULSE 85; RESP 18; TEMP 36.5; O2SAT 99; BMI 23.3
--- NOTE | 2023-09-29 23:22 | PC.NURSE ---
Pt presents to ER for sinus congestion with a cough Pt states her anxiety is increased as well because her mom just recently and she left her Klonopin at her friends house Pt states Do you think will just let my son and I stay here tonight? (Son is a pt in another room) Pt follows this statement by saying gave me my meds and let me stay all night last time and I am just so tired This nurse explained that we have a full ER and cannot allow her just to stay in a room - but that she could stay in the waiting room and be given a blanket
--- NOTE | 2023-09-29 23:55 | ED_ITS ---
HPI - URI/Sore Throat General Chief Complaint: Upper Respiratory Infection Stated Complaint: CONGESTION Time Seen by Provider: 09/29/23 23:45 Source: patient Limitations: no limitations History of Present Illness HPI Narrative: patient presents complaining of cough and congestion. not short of breath. States she and her son got kicked out of someone's house tonight and she is hoping to stay in the ER all night until she can get a ride in the AM. States she also feels anxious. she is not short of breath. States she is bringing up green phlegm Related Data Home Medications Medication Instructions Recorded Confirmed divalproex 250 mg tablet,delayed 750 mg PO BEDTIME 06/11/23 09/29/23 release albuterol sulfate 90 mcg/actuation 2 puff inhalation Q6H PRN 07/02/23 09/29/23 aerosol inhaler shortness of breath or wheezing clonazepam 1 mg tablet 0.5 mg PO Q8H PRN insomnia 07/02/23 09/29/23 methadone 5 mg/5 mL oral solution 130 mg PO QDAY 07/02/23 09/29/23 pregabalin 100 mg capsule 100 mg PO Q8H 07/02/23 09/29/23 dextroamphetamine-amphetamine 10 20 mg PO BID 09/09/23 09/09/23 mg tablet quetiapine 150 mg tablet 150 mg PO .qhs 09/09/23 09/29/23 quetiapine 25 mg tablet 50 mg PO QDAY 09/09/23 09/29/23 albuterol sulfate 2.5 mg/3 mL mg 09/29/23 (0.083 %) solution for nebulization Previous Rx's Medication Instructions Recorded clonazepam 0.5 mg tablet (Klonopin) 0.5 mg PO Q8H PRN anxiety #6 tabs 09/10/23 dextroamphetamine-amphetamine 10 20 mg (2 x 10 mg) PO BID #8 tabs 09/10/23 mg tablet (Adderall) Allergies Allergy/AdvReac Type Severity Reaction Status Date / Time No Known Drug Allergies Allergy Verified 09/29/23 23:12 Review of Systems ROS Status of ROS 10 or more systems reviewed and unremark able except as noted in history and below PFSH PFSH Social History Smoking status: Current every day smoker Exam Constitutional Vital Signs, click to edit/add: Last Vital Signs Temp 97.7 F 09/29/23 23:10 Pulse 85 09/29/23 23:10 Resp 18 09/29/23 23:10 BP 133/79 09/29/23 23:10 Pulse Ox 99 09/29/23 23:10 O2 Del Method Room Air 09/29/23 23:10 Common normals: no apparent distress, average body habitus, oriented x3, healthy appearing, alert and well nourished Eye Common normals: EOMs intact bilaterally and conjunctivae normal Chest Common normals: inspection of chest normal Respiratory Common normals: normal respiratory effort, no retractions, no use of accessory muscles and clear to auscultation bilaterally Cardio Common normals: regular rate, regular rhythm, S1 normal heart sound and S2 normal heart sound GI Common normals: Normal to inspection, nondistended, normoactive bowel sounds present, soft to palpation and non-tender Extremity Common normals: normal to inspection and full ROM Neuro Common normals: oriented x3, CN's II-XII intact bilaterally and moves all extremities Psych Appearance: grossly normal Course Vital Signs Vital signs: Vital Signs Temperature 97.7 F 09/29/23 23:10 Pulse Rate 85 09/29/23 23:10 Respiratory Rate 18 09/29/23 23:10 Blood Pressure 133/79 09/29/23 23:10 Pulse Oximetry 99 09/29/23 23:10 Oxygen Delivery Method Room Air 09/29/23 23:10 Temperature 97.7 F 09/29/23 23:10 Pulse Rate 85 09/29/23 23:10 Respiratory Rate 18 09/29/23 23:10 Blood Pressure 133/79 09/29/23 23:10 Pulse Oximetry 99 09/29/23 23:10 Oxygen Delivery Method Room Air 09/29/23 23:10 Discharge Plan Discharge Chief Complaint: Upper Respiratory Infection Clinical Impression: Upper respiratory infection Patient Disposition: Home, Self-Care Prescriptions / Home Meds: No Action divalproex 250 mg tablet,delayed release (DR/EC) 750 mg PO BEDTIME clonazepam 1 mg tablet 0.5 mg PO Q8H PRN (Reason: insomnia) pregabalin 100 mg capsule 100 mg PO Q8H albuterol sulfate 90 mcg/actuation HFA aerosol inhaler 2 puff INHALATION Q6H PRN (Reason: shortness of breath or wheezing) methadone 5 mg/5 mL solution 130 mg PO QDAY dextroamphetamine-amphetamine [Adderall] 10 mg tablet 20 mg PO BID Qty: 8 0RF Rx Instructions: administer doses at least 4-6 hours apart clonazepam [Klonopin] 0.5 mg tablet 0.5 mg PO Q8H PRN (Reason: anxiety) Qty: 6 0RF Rx Instructions: 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
--- NOTE | 2023-09-29 23:55 | XR_ITS ---
[facility] [id number] Patient Name: LORNA DEUTSCH MRN: [id number] date: 1985 Sex: F Assigned Patient Location: ER Current Patient Location: ER Accession/Order Number: [id number] Exam Date: 09/29/2023 23:59 Report Date: 09/30/2023 00:16 At the request of: VIVIAN MACHADO Procedure: XR chest 2V EXAM: XR chest 2V HISTORY: cough COMPARISON: Chest radiograph dated 01/11/2023. TECHNIQUE: 2 views of the chest were obtained. FINDINGS: The cardiac silhouette is normal in size. The lungs are clear. There is no significant pneumothorax or pleural effusion. No acute osseous abnormality is seen. XR/XR chest 2V IMPRESSION: 1. No acute cardiopulmonary abnormality. Electronically authenticated by: Darren PISANO Date: 09/30/2023 00:16
== END 2023-09-30 01:20 | disposition home or self-care (01) ==
PROVIDERS: Emergency Provider Internal Medicine; PCP Nurse Practitioner Family
DX: J06.9 Acute upper respiratory infection, unspecified (principal); Z79.899 Other long term (current) drug therapy; F17.210 Nicotine dependence, cigarettes, uncomplicated
CPT/HCPCS: 71046; 99283

== ENCOUNTER 2023-10-08 12:05 | Emergency (ER) | payer OTHER, SELFPAY ==
[2023-10-08 12:10] VITALS: BP 160/96; PULSE 76; RESP 16; TEMP 36.7; O2SAT 96; BMI 23.3
--- OUTSIDE RECORDS SUMMARY | 2023-10-08 12:17 | XMS_ITS | CCD ---
Author Name Unknown Address [address] [place] [address] Organization [facility] Care Team Providers Care Time Clerk Name Role Phone LUCAS HOFFMANN Primary Care Unavailable JETHRO MOONEY Attending Unavailable Unavailable Primary Care Provider UnavailCAROL Schulz Referring Unavailable PARINJA, ADDIE Attending Unavailable PARINJA, ADDIE Admitting Unavailable TEAGAN, RAÚL S Consulting Unavailable HUSSEIN LIAO Consulting Unavailable KRYSTAL NEWMAN Consulting Unavailable PARINJA, ADDIE Admitting Unavailable PARINJA, ADDIE Attending Unavailable TEAGAN, RAÚL S Consulting Unavailable NANCY RODRIGUEZ Primary Care Physician [phone] Jeanna Medina Unavailable Unavailable DO Rachael Reyes Emergency Provider [phone] ERNESTINE Rodriguez Primary Care Provider Cris PENA Primary Care Physician [phone] DO Rachael Reyes Emergency Provider [phone] RUIZ Pena Primary Care Provider [phone] DO Nito Walton Emergency Provider [phone] DO Rachael Reyes Emergency Provider [phone] RUIZ Pena Primary Care Provider [phone] Isabelle DO Nito Garzon Emergency Provider [phone] DO Carol Moses Emergency Provider MD Bobo Shields Admit Provider MD Cornelius Bobo Attending Provider MISC, DR AGARWAL Primary Care Unavailable JANET ., VIRGILIO Admitting Unavailable JANET ., VIRGILIO Attending Unavailable JANET ., VIRGILIO Consulting Unavailable AMAYA BRANCH Consulting Unavailable MIAH, DR SULTANA Gallardo Admitting Unavailable MISC, DR AGARWAL Primary Care Unavailable MIAH, DR SULATNA Gallardo Attending Unavailable MIAH, DR SULTANA Gallardo Consulting Unavailable HAY ., DR LEMA Consulting Unavailable ROWLEY, DEBRA Consulting Unavailable SOPHY, DR STACI Medina Attending Unavailable SOPHY, DR STACI Medina Consulting Unavailable SOPHY, DR STACI Medina Admitting Unavailable MISLoco, DR AGARWAL Primary Care Unavailable ALBINA BRODERICK Consulting Unavailable MISC, DR AGARWAL Primary Care Unavailable VIVIAN MACHADO Admitting Unavailable VIVIAN MACHADO Attending Unavailable VIVIAN MACHADO Consulting Unavailable ALBINA BRODERICK Consulting Unavailable NEWATIA, ISAC Consulting Unavailable MISC, DR AGARWAL Primary Care Unavailable DIAB ., ANUP Admitting Unavailable DIAB ., ANUP Attending Unavailable SOPHY, DR STACI Medina Attending Unavailable SOPHY, DR STACI Medina Consulting Unavailable MISC, DR AGARWAL Primary Care Unavailable SOPHY, DR STACI Medina Admitting Unavailable EZIO GARCIA Consulting UnavailALBINA [place] Consulting Unavailable MD Farhad Landon Emergency Provider Mireille Cheatham APRN.CNP Primary Care Provider CHOLO PenaN Cris Primary Care Provider DO Leonard Salazar Emergency Provider DO Rachael Reyes Emergency Provider NON STAFF Primary Care Provider UnavailJOSE Burns Emergency Provider [phone] Unavailable Primary Care Provider UnavailMIREILLE Diaz Referring Unavailable LINDEN, MIREILLE Primary Care Unavailable ISACC REDMOND Attending Unavailable DO Rachael Reyes Emergency Provider MD Luis Armando Hendrix Emergency Provider [phone] GHASSAN CARRASCO Attending Unava TRACE Patrick Primary Care MD Bobo Robbins Admit Provider MD Bobo Shields Attending Provider LADI KOCH Attending Unavailable MUHA, MIREILLE Referring Unavailable MUHA, MIREILLE Primary Care Unavailable MUHA, MIREILLE Attending Unavailable MUHA, MIREILLE Referring Unavailable MUHA, MIREILLE Primary Care Unavailable CHUCK GALINDO Attending Unavailable MUHA, MIREILLE Primary Care Unavailable MUHA, MIREILLE Attending Unavailable NON STAFF Primary Care Provider UnavailMD Bobo Wong Admit Provider MD Bobo Shields Attending Provider RUIZ Pena Primary Care Provider DO Rachael Reyes Emergency Provider RUIZ Pena Primary Care Provider MD Claudio Dee Attending Provider JEAN, JULIAN Cris E Attending Unavailable JEAN, JULIAN Cris E Attending Unavailable JEAN, JULIAN Cris E Attending Unavailable NANCY RODRIGUEZ Attending Unavailable Derrell Orantes. Attending Unavailable DO Norma Dietz Attending Unavailable Derrell Orantes Attending Unavailable NANCY RODRIGUEZ Attending Unavailable JEAN, JULIAN Russo Attending Unavailable JEAN, JULIAN Cris E Attending Unavailable JEAN, JULIAN Cris E Attending Unavailable JEAN, JULIAN Cris E Attending Unavailable Zahraa Connors Attending Unavailable Jacqueline Marquez Attending Unavailable Heather Valenzuela Attending Unavailable Christian Locke Attending Unavailable Christian Locke Attending Unavailable Christian Locke Attending Unavailable Derrell Orantes Attending Unavailable DO Norma Dietz Attending Unavailable JEAN, JULIAN Cris E Attending Unavailable JEAN, JULIAN Cris E Attending Unavailable Eriberto Sheppard Attending Unavailable Eriberto Sheppard Admitting Unavailable NON STAFF Primary Care Unavailable NON STAFF Primary Care Unavailable Rachael Reyes Attending Unavailable Rachael Reyes Admitting Unavailable Robronaldo, Cris Primary Care Unavailable Rachael Reyes Admitting Unavailable Rachael Reyes Attending Unavailable Robronaldo, Cris Primary Care Unavailable Rachael Reyes M Admitting Unavailable Rachael Reyes M Attending Unavailable Claudio Dee Attending Unavailab le Robronaldo, Cris Primary Care Unavailable Claudio Dee Admitting Unavailab mendoza Robronaldo, Cris Primary Care Unavailable Rachael Reyes M Admitting Unavailable Rachael Reyes Attending Unavailable Leonard Salazar Attending Unavailable Robronaldo, Cris Primary Care Unavailable Leonard Salazar Admitting Unavailable Robronaldo, Cris Primary Care Unavailable Amy, Rachael M Admitting Unavailable Amy, Rachael Garzon Attending Unavailable Bobo Shields Admitting Unavailable Bobo Shields Attending Unavailable NON STAFF Primary Care Unavailable Robronaldo, Cris Primary Care Unavailable Won Shieldsmi Attending Unavailable Martine Shieldsyemi Admitting Unavailable Luis Armando Hendrix Attending Unavailable NON STAFF Primary Care Unavailable Luis Armando Hendrix Admitting Unavailable Farhad Landon Attending Unavailable Jean, Cris Primary Care Unavailable Farhad Landon Admitting Unavailable Robronaldo, Cris Primary Care Unavailable Nito Walton Attending Unavailable Nito Walton Admitting Unavailable Robronaldo, Cris Primary Care Unavailable Rachael Reyes Admitting Unavailable Rachael Reyes Attending Unavailable Medications Current Medications Medication Drug Class(es) Dates Sig (Normalized) Sig (Original) albuterol 0.83 mg/ml inhalation solution (20 sources) beta2-Adrenergic Agonist Start: 10-02-2022 take 2.5 mg by inhalation every six hours for wheezing albuterol 0.083% Inh Vera 3 mL 2.5 mg, 3 mL, Inhalation, q6hr for wheezing, 60 EA, Refill(s) 1, [facility] #[id number], 167, cm, 10/02/22 14:11:00 EST, Height/Length Dosing, 70, kg, 10/02/22 14:11:00 EST, Weight Dosing Start Date: 10/02/22 Status: Ordered Start: 08-09-2022 End: 01-12-2023 take 1 puff(s) by inhalation every four to six hours Albuterol Sulfate (Proventil Hfa) 90 mcg/actuation HFA aerosol inhaler Discontinued 2 PUFF INHALATION EVERY 4-6 HOURS August 08, 2022 11:00pm January 12, 2023 8:17am with spacer Start: 04-22-2022 take 2.5 mg by inhal ation every six hours for wheezing albuterol 0.083% Inh Vera 3 mL 2.5 mg, 3 mL, Inhalation, q6hr for wheezing, 60 EA, Refill(s) 1, [facility] #[id number], 165, cm, 11/01/21 14:58:00 EST, Height/Length Dosing, 88, kg, 11/01/21 14:58:00 EST, Weight Dosing Start Date: 04/22/22 Status: Ordered Start: 01-17-2019 take 1 puff(s) by in halation every four hours Albuterol Sulfate Active 2 PUFF INHALATION Q4H January 16, 2019 11:00pm Start: 01-17-2019 take 1 puff(s) by in halation every four hours Albuterol Sulfate Active 2 PUFF INHALATION Q4H January 17, 2019 12:00am Start: 07-09-2015 End: 07-18-2020 albuterol (PROVENTIL HFA) 10 8 (90 BASE) MCG/ACT inhaler Inhale 1-2 puffs into the lungs every 4 hours as needed for Wheezing or Shortness of Breath (Space out to every 6 hours as symptoms improve) Space out to every 6 hours as symptoms improve. 1 Inhaler 0 07/09/2015 07/18/2020 Discontinued (LIST CLEANUP) amphetamine aspartate 5 mg / amphetamine sulfate 5 mg / dextroamphetamine saccharate 5 mg / dextroamphetamine sulfate 5 mg oral tablet (20 sources) Central Nervous System Stimulant Start: 07-13-2023 take 20 mg by mouth twice daily Dextroamphetamine-Amphetamine Active 20 MG PO Twice Daily at 0900 and 1400 42 July 13, 2023 Start: 03-16-2023 End: 05-16-2023 take 2 tablets by mouth twice daily dextroamphetamine-amphetamine (ADDERALL) 10 mg tablet Indications: Attention deficit hyperactivity disorder (ADHD), unspecified ADHD type Take 2 tablets by mouth twice daily for 30 days. 120 tablet 0 04/16/2023 Active Start: 11-20-2022 End: 06-08-2023 take 20 mg by mouth twice daily Dextroamphetamine-Amphetamine Discontinu ed 20 MG PO Twice daily January 15, 2023 June 08, 2023 7:19am Start: 11-20-2022 take 20 mg by mouth once daily Dextroamphetamine-Amphetamine Active 20 MG PO Daily November 20, 2022 12:00am Start: 11-06-2022 End: 03-16-2023 take 10 mg by mouth twice daily Adderall 20 mg Tab 10 mg, Oral, BID, 30 day supply, # 60 tab(s), Refills(s) 0, Pharmacy: [facility] #[id number], 167, cm, 11/06/22 14:42:00 EST, Height/Length Dosing, 68.2, kg, 11/06/22 14:42:00 EST, Weight Dosing Start Date: 11/06/22 Status: Ordered Start: 10-10-2022 End: 10-17-2022 take 1 tablet by mouth three times daily amphetamine-dextroamphetamine 10 mg oral tablet 10 mg, 1 tab(s), Oral, TID for 7 day(s), 21 tab(s), Refill(s) 0, [facility] #[id number], 167, cm, 10/10/22 12:48:00 EST, Height/Length Dosing, 72.9, kg, 10/10/22 12:48:00 EST, Weight Dosing Start Date: 10/10/22 Stop Date: 10/17/22 Status: Ordered Start: 01-17-2019 End: 01-20-2019 take 30 mg by mouth twice daily Dextroamphetamine-Amphetamine Discontinu ed 30 MG PO Twice daily January 16, 2019 11:00pm January 20, 2019 5:01pm Comment on above: Take 2 tablets by mo [facility] twice daily for 30 days. Take 10 mg by mouth. Take 1 tablet by [facility] twice daily. Take 1 tablet by [facility] twice daily for 30 days. 120 actuat budesonide 0.18 mg/actuat dry powder inhaler (5 sources) Corticosteroid Start: 10-02-2022 Pulmicort Flexhaler 180 mcg/inh Powder = 2 inh, Inhalation, BID, # 1 EA, Refills(s) 10, Pharmacy: [facility] #[id number], 167, cm, 10/02/22 14:11:00 EST, Height/Length Dosing, 70, kg, 10/02/22 14:11:00 EST, Weight Dosing Start Date: 10/02/22 Status: Ordered Start: 04-22-2022 Pulmicort Flex haler 180 mcg/inh Powder = 2 inh, Inhalation, BID, # 1 EA, Refills(s) 10, Pharmacy: [facility] #[id number], 165, cm, 11/01/21 14:58:00 EST, Height/Length Dosing, 88, kg, 11/01/21 14:58:00 EST, Weight Dosing Start Date: 04/22/22 Status: Ordered buprenorphine 8 mg / naloxone 2 mg oral strip (20 sources) Partial Opioid Agonist, Opioid Antagonist Start: 07-31-2020 End: 08-09-2020 buprenorphine-naloxone (SUBOXONE) 8-2 MG FILM SL film Indications: Opioid dependence in remission (HCC) Place 1 Film under the tongue 2 times daily for 9 days. 18 Film 0 07/31/2020 08/09/2020 Active Start: 03-02-2020 End: 01-25-2021 take 1 tablet under the tongue twice daily Buprenorphine-Naloxone Discontinued 1 TA B SUBLINGUAL Twice daily 14 March 01, 2020 11:00pm January 25, 2021 4:22pm Start: 10-25-2019 End: 03-02-2020 Buprenorphine-Naloxone Disco ntinued 1 FILM SUBLINGUAL Twice daily 0 November 03, 2019 12:07pm March 02, 2020 11:05am Start: 01-17-2019 End: 01-20-2019 take 1 dose under the tongue once daily Buprenorphine-Naloxone Discontinued 2 DOSE SUBLINGUAL Daily January 16, 2019 11:00pm January 20, 2019 5:00pm End: 07-18-2020 buprenorphine-naloxone (SUBO XONE) 12-[address] 1 Film under the tongue daily. 0 07/18/2020 Discontinued (Alternate therapy) clonazePAM 0.5 mg oral tablet (20 sources) Benzodiazepine Start: 07-13-2023 take 0.5 mg by mouth twice daily Clonazepam Active 0.5 MG PO Twice daily 42 July 13, 2023 8:42am Start: 06-18-2023 End: 07-18-2023 take 0.5 tablet by mouth three times daily as needed clonazePAM (KLONOPIN) 1 mg tablet Indications: Paranoid schizophrenia (HCC) , Bipolar depression (HCC) Take 0.5 tablets by mouth three times daily as needed for up to 30 days. for insomnia. 45 tablet 0 06/18/2023 Active Start: 06-08-2023 End: 07-13-2023 take 0.5 mg by mouth three times daily Clonazepam Discontinued 0.5 MG PO Three times daily June 07, 2023 11:00pm July 13, 2023 8:42am Start: 06-08-2023 take 0.5 mg by mouth twice daily Clonazepam Active 0.5 MG PO Twice daily June 08, 2023 12:00am Start: 04-27-2023 End: 06-17-2023 take 1 tablet by mouth three times daily as needed clonazePAM (KLONOPIN) 1 mg tablet Indications: Paranoid schizophrenia (HCC) , Bipolar depression (HCC) Take 1 tablet by mouth three times daily as needed for up to 16 days. for insomnia. 48 tablet 0 04/27/2023 06/17/2023 Discontinued Start: 04-13-2023 End: 05-13-2023 take 1 tablet by mouth every twelve hours as needed for anxiety and anxiety clonazePAM (KLONOPIN) 0.5 mg tablet Indications: Anxiety Take 1 tablet by mouth twice daily as needed for up to 30 days. 30 tablet 0 04/13/2023 04/16/2023 Discontinued Start: 01-21-2019 End: 10-25-2019 take 0.5 mg by mouth twice daily Clonazepam Discontinued 0.5 MG PO Twice daily 14 7 January 21, 2019 6:55am October 25, 2019 5:13pm Start: 01-20-2019 End: 01-21-2019 take 0.5 mg by mouth twice daily Clonazepam Discontinued 0.5 MG PO Twice daily 0 January 20, 2019 5:02pm January 21, 2019 6:55am Start: 01-17-2019 End: 01-20-2019 take 1 mg by mouth three times daily Clonazepam Discontinued 1 MG PO Three times daily January 16, 2019 11:00pm January 20, 2019 5:02pm Comment on above: Take 1 tablet by troy th twice daily as needed for up to 30 days. Take 1 tablet by troy th three times daily as needed for up to 10 days. for insomnia. Do not start before April 27, 2023. Take 1 tablet by troy th three times daily as needed for up to 16 days. for insomnia. Take 0.5 tablets by mouth three times daily as needed for up to 30 days. for insomnia. DULoxetine 30 mg delayed release oral capsule (4 sources) Serotonin and Norepinephrine Reuptake Inhibitor Start: 07-13-20 take 30 mg by mouth twice daily Duloxetine Active 30 MG PO Twice daily 60 July 12, 2023 11:00pm hydrOXYzine hydrochloride 50 mg oral tablet (20 sources) Antihistamine Start: 06-08-20 End: 07-13-20 take 50 mg by mouth every six hours Hydroxyzine Hcl Active 50 MG PO Q6H 60 July 13, 2023 8:42am Start: 11-06-2022 take 20 mg by mouth four times daily as needed for anxiety hydrOXYzine hydrochloride 10 mg/5 mL Oral Syrup 20 mg = 10 mL, Oral, QID, PRN as needed for anxiety, # 200 mL, Refills(s) 3, [id number], 167, cm, 11/06/22 14:42:00 EST, Height/Length Dosing, 68.2, kg, 11/06/22 14:42:00 EST, Weight Dosing Start Date: 11/06/22 Status: Ordered Start: 04-22-2022 take 1 capsule by [facility] three times daily Vistaril 50 mg Cap 50 mg = 1 cap(s), Oral, TID, # 90 cap(s), Refills(s) 1, [id number], 165, cm, 11/01/21 14:58:00 EST, Height/Length Dosing, 88, kg, 11/01/21 14:58:00 EST, Weight Dosing Start Date: 04/22/22 Status: Ordered Start: 02-05-2021 End: 02-03-2023 take 50 mg by mouth every six hours Hydroxyzine Pamoate Discontinued 50 MG PO Q6H 45 January 15, 2023 11:26am February 03, 2023 3:02pm Start: 07-31-2020 End: 08-10-2020 take 1 tablet by mouth three times daily as needed for anxiety hydrOXYzine (ATARAX) 50 MG tablet Take 1 tablet by mouth 3 times daily as needed for Anxiety 30 tablet 0 07/31/2020 08/10/2020 Active methadone hydrochloride 10 mg/ml oral solution (20 sources) Opioid Agonist Start: 07-13-2023 take 10 mg by mouth once daily Methadone (Methadose) 10 mg/mL Concentrate Active 135 MG PO Daily 0 July 13, 2023 Start: 11-20-2022 End: 07-13-2023 take 144 mg by mouth once daily Methadone Discontinued 144 MG PO Daily November 20, 2022 12:00am July 13, 2023 8:44am Start: 11-20-2022 take 150 mg by mouth once daily Methadone Active 150 MG PO Daily November 20, 2022 1:00am Start: 11-20-2022 take 120 mg by mouth once daily Methadone Active 120 MG PO Daily November 20, 2022 1:00am Start: 11-20-2022 take 180 mg by mouth once daily Methadone Active 180 MG PO Daily November 20, 2022 12:00am Start: 11-06-2022 take 180 mg by mouth once daily methadone 180 mg, Oral, Daily, Refills(s) 0 Start Date: 11/06/22 Status: Ordered methadone (DOLOP CLARIBEL) 5 mg tablet Take 10 mg by mouth. 0 Active Comment on above: Take 10 mg by mouth. nicotine 2 mg chewing gum (20 sources) Cholinergic Nicotinic Agonist Start: 07-13-2023 Nicotine (Polacrilex) Active 2 MG BUCCAL Every 2 hours 60 July 12, 2023 11:00pm Start: 01-15-2023 End: 02-03-2023 Nicotine Discontinued 1 EACH TRANSDERML Daily January 14, 2023 11:00pm February 03, 2023 3:02pm Start: 03-02-2020 End: 01-25-2021 Nicotine Discontinued 1 EACH TRANSDERML Daily March 01, 2020 11:00pm January 25, 2021 6:36pm Start: 12-08-2019 End: 02-18-2020 Nicotine Discontinued 1 EACH TRANSDERML Daily December 08, 2019 12:00am February 18, 2020 6:32pm Start: 11-03-2019 End: 11-27-2019 Nicotine Discontinued 1 EACH TRANSDERML Daily 7 7 November 16, 2019 8:48am November 27, 2019 3:13pm pregabalin 100 mg oral capsule (20 sources) Start: 06-17-2023 End: 09-27-2023 take 100 mg by mouth three times daily Pregabalin Active 100 MG PO Three times daily July 01, 2023 11:00pm Start: 06-08-2023 End: 07-02-2023 take 75 mg by mouth once daily Pregabalin Discontinued 75 MG PO Daily June 07, 2023 11:00pm July 02, 2023 10:41pm Start: 04-16-2023 End: 06-17-2023 take 1 capsule by mouth three times daily pregabalin (LYRICA) 75 mg capsule Indications: Chronic midline low back pain without sciatica , Myofascial pain syndrome Take 1 capsule by mouth three times daily for 30 days. 90 capsule 2 04/16/2023 06/17/2023 Discontinued Start: 01-25-2021 End: 11-20-2022 take 200 mg by mouth three times daily Pregabalin Discontinued 200 MG PO Three times daily January 24, 2021 11:00pm January 25, 2021 4:26pm Start: 07-06-2008 End: 03-16-2023 pregabalin(LYRICA 75 MG CAP) Take one(1) tablet two(2) times daily. 0 07/06/2008 03/16/2023 Discontinued (Course of therapy completed) Comment on above: Take one(1) tablet t wo(2) times daily. Take 1 capsule by [facility] three times daily for 30 days. Take 1 capsule by [facility] three times daily for 90 days. Take 1 capsule by [facility] three times a day for 30 days. promethazine hydrochloride 25 mg oral tablet (4 sources) Phenothiazine Start: 12-22-19 20 take 1 tablet by mouth every four hours as needed for nausea promethazine 25 mg Tab 25 mg = 1 tab(s), Oral, q4hr, PRN for nausea/vomiting, # 30 tab(s), Refills(s) 0, Pharmacy: [id number], 165, cm, 12/22/19 13:50:00 EDT, Height/Length Measured, 95, kg, 12/22/19 13:50:00 EDT, Weight Measured Start Date: 12/22/19 Status: Ordered End: 07-18-2020 take 1 tablet by mouth every four hours as needed Promethazine HCl (PHENERGAN PO) Take 1 tablet by mouth every 4 hours as needed 0 07/18/2020 Discontinued (Therapy completed) QUEtiapine 150 mg oral tablet (20 sources) Atypical Antipsychotic Start: 07-13-2023 take 150 mg by mouth once daily at bedtime Quetiapine Active 150 MG PO Daily at bedtime July 12, 2023 11:00pm Start: 07-13-2023 take 50 mg by mouth once daily Quetiapine Active 50 MG PO DAILY@1600 July 12, 2023 11:00pm Start: 02-03-2023 End: 06-08-2023 take 50 mg by mouth twice daily Quetiapine Discontinue d 50 MG PO Twice daily February 03, 2023 3:02pm June 08, 2023 7:22am Start: 01-15-2023 End: 02-03-2023 take 25 mg by mouth twice daily Quetiapine Discontinue d 25 MG PO Twice Daily at 0900 and 1400 28 January 14, 2023 11:00pm February 03, 2023 3:03pm Start: 01-15-2023 End: 06-08-2023 take 300 mg by mouth once daily at bedtime Quetiapine Discontinued 300 MG PO Daily at bedtime 14 January 14, 2023 11:00pm June 08, 2023 7:22am Start: 11-06-2022 QUEtiapine (SE ROQUEL) 200 mg tablet Take 200 mg by mouth. 0 11/06/2022 Active Start: 04-22-2022 take 1 tablet by troy th twice daily Seroquel 400 mg oral tablet 400 mg = 1 tab(s), Oral, BID, # 60 tab(s), Refills(s) 3, Pharmacy: [facility] #[id number], 165, cm, 11/01/21 14:58:00 EST, Height/Length Dosing, 88, kg, 11/01/21 14:58:00 EST, Weight Dosing Start Date: 04/22/22 Status: Ordered Start: 03-24-2021 End: 01-16-2023 take 400 mg by mouth once daily at bedtime Quetiapine Discontinued 400 MG PO Daily at bedtime 30 March 23, 2021 11:00pm January 16, 2023 7:51am Start: 03-12-2021 End: 03-24-2021 take 450 mg by mouth twice daily at bedtime Quetiapine Discontinued 400 MG PO Twice daily March 12, 2021 4:39pm March 24, 2021 9:35am TO EQUAL 450MG QHS Start: 01-25-2021 End: 03-12-2021 take 400 mg by mouth once daily Quetiapine Discontinue d 400 MG PO Daily at 0800 January 24, 2021 11:00pm March 12, 2021 4:39pm Start: 01-25-2021 End: 11-20-2022 take 50 mg by mouth once daily Quetiapine Discontinued 50 MG PO Daily March 23, 2021 11:00pm November 20, 2022 3:02am Start: 08-01-2020 take 1 tablet by troy th once daily at breakfast QUEtiapine (SEROQUEL) 200 MG tablet Take 1 tablet by mouth daily (with breakfast) 30 tablet 3 08/01/2020 Active Start: 07-31-2020 take 1 tablet by troy th once daily QUEtiapine (SEROQUEL) 400 MG tablet Take 1 tablet by mouth nightly 30 tablet 3 07/31/2020 Active Start: 07-17-2020 End: 01-25-2021 take 150 mg by mouth once daily Quetiapine Discontinue d 150 MG PO Daily July 17, 2020 10:05pm January 25, 2021 4:26pm Start: 03-02-2020 End: 07-17-2020 take 150 mg by mouth twice daily Quetiapine Discontinu ed 150 MG PO Twice daily 42 March 01, 2020 11:00pm July 17, 2020 10:05pm Start: 03-02-2020 End: 03-12-2021 take 450 mg by mouth once daily at bedtime Quetiapine Discontinued 400 MG PO Daily at bedtime March 01, 2020 11:00pm March 12, 2021 4:39pm TO EQUAL 450MG QHS Start: 12-08-2019 End: 03-02-2020 take 100 mg by mouth once daily Quetiapine Discontinue d 100 MG PO DAILY@1500 30 December 08, 2019 12:00am March 02, 2020 11:05am Start: 12-08-2019 End: 03-02-2020 take 25 mg by mouth once daily Quetiapine Discontinued 25 MG PO DAILY@1500 30 December 08, 2019 12:00am March 02, 2020 11:05am Start: 12-08-2019 End: 03-02-2020 take 450 mg by mouth once daily at bedtime Quetiapine Discontinued 450 MG PO Daily at bedtime 45 December 08, 2019 12:00am March 02, 2020 11:05am Start: 11-16-2019 End: 12-08-2019 take 50 mg by mouth once daily Quetiapine Discontinued 50 MG PO DAILY@1500 60 November 16, 2019 12:00am December 08, 2019 1:42pm Start: 11-03-2019 End: 12-08-2019 take 450 mg by mouth once daily at bedtime Quetiapine Discontinued 450 MG PO Daily at bedtime 63 November 16, 2019 8:48am December 08, 2019 1:42pm Start: 11-03-2019 End: 03-02-2020 take 400 mg by mouth once daily Quetiapine Discontinue d 400 MG PO Daily 60 December 08, 2019 12:00am March 02, 2020 11:05am Start: 04-18-2015 End: 07-18-2020 take 400 mg by mouth three times daily Quetiapine Discontinued 400 MG PO Three times daily January 16, 2019 11:00pm October 25, 2019 5:14pm Start: 07-18-2014 End: 07-31-2020 take 2 tablets by mouth once daily QUEtiapine (SEROQUEL) 300 MG tablet Take 2 tablets by mouth nightly for 30 days. 60 tablet 0 07/18/2014 07/31/2020 Discontinued (Stop Taking at Discharge) Start: 07-18-2014 End: 07-31-2020 QUEtiapine (SEROQUEL) 300 MG tablet Take 1 tablet by mouth 2 times daily at 0800 and 1400 for 30 days. 60 tablet 0 07/18/2014 07/31/2020 Discontinued (Stop Taking at Discharge) End: 07-31-2020 QUEtiapine (SEROQUEL) 400 MG tablet Take 400 mg by mouth 2 times daily 400 mg during the day and 450 mg at bedtime LF 06/23/20 (30 day supply) 0 07/31/2020 Discontinued (Stop Taking at Discharge) End: 07-31-2020 QUEtiapine (SEROQUEL) 50 MG tablet Take 50 mg by mouth nightly 400 mg during the day and 450 mg at bedtime LF 06/23/20 (30 day supply) 0 07/31/2020 Discontinued (Stop Taking at Discharge) Comment on above: Take 200 mg by mouth . traZODone hydrochloride 50 mg oral tablet (20 sources) Serotonin Reuptake Inhibitor Start: End: take 50 mg by mouth once daily at bedtime Trazodone Active 50 MG PO Daily at bedtime July 13, 2023 8:42am Start: 01-15-2023 End: 04-19-2023 take 50 mg by mouth once daily at bedtime Trazodone Discontinued 50 MG PO Daily at bedtime 14 January 14, 2023 11:00pm April 19, 2023 6:08pm Start: 01-25-2021 End: 11-20-2022 take 100 mg by mouth once daily at bedtime Trazodone Discontinued 100 MG PO Daily at bedtime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 10-26-2019 Chronic Open wounds of extremities (12 sources) Superficial laceration of hand; Translations: [Laceration without foreign body of unspecified hand, initial encounter] 10-26-2019 Episodic Other aftercare (1 source) 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; Translations: [OTH CARE HOME CURRENT DRUG THERAPY] Onset: 12-17-2022 Episodic Other connective tissue disease (12 sources) Foot pain; Translations: [Pain in right foot] 11-28-2019 Episodic Other connective tissue disease (2 sources) Myofascial pain syndrome; Translations: [Myalgia, other site] 07-17-2023 Episodic Other female genital disorders (13 sources) Vaginal discharge; Translations: [Other specified noninflammatory disorders of vagina] Onset: 06-23-2014 Resolved: 07-29-2016 07-29-2016 Episodic Other female genital disorders (2 sources) History of abnormal cervical Papanicolaou smear ; Translations: [Personal history of other diseases of the female genital tract] Onset: 07-25-2020 07-26-2020 Episodic Other gastrointestinal disorders (17 sources) Constipation; Translations: [Constipation, unspecified] 05-07-2019 Episodic Other gastrointestinal disorders (1 source) Diarrhea, unspecified; Translations: [DIARRHEA UNSPECIFIED] Onset: 01-13-2023 Episodic Other injuries and conditions due to external causes (1 source) Multiple injuries; Translations: [Unspecified multiple injuries, initial encounter] Onset: 11-10-2022 Episodic Other nervous system disorders (5 sources) Neuropathy 08-23-2020 Chronic Other nervous system disorders (2 sources) Polyneuropathy; Translations: [Polyneuropathy, unspecified] Onset: 10-02-2022 Chronic Other nervous system disorders (2 sources) Other chronic pain; Translations: [OTHER CHRONIC PAIN] Onset: 07-01-2022 Chronic Other nutritional; endocrine; and metabolic disorders (5 sources) Overweight in adulthood with body mass index of 25 or more but less than 30; Translations: [Body mass index (BMI) 25.0-25.9, adult] Onset: 10-02-2022 Episodic Other screening for suspected conditions (not mental disorders or infectious disease) (1 source) Cancer cervix screening status; Translations: [Encounter for screening for malignant neoplasm of cervix] Episodic Other upper respiratory infections (12 sources) Upper respiratory infection; Translations: [Acute upper respiratory infection, unspecified] 08-09-2022 Episodic Residual codes; unclassified (5 sources) Chronic back pain 12-23-2013 Episodic Residual codes; unclassified (12 sources) Edema of extremity; Translations: [Localized edema] 11-28-2019 Episodic Residual codes; unclassified (12 sources) Tobacco user; Translations: [Tobacco use] 01-17-2019 Episodic Residual codes; unclassified (2 sources) H/O: Disorder; Translations: [Personal history of other specified conditions] Onset: 11-06-2022 Episodic Residual codes; unclassified (1 source) Procedure and treatment not carried out because of patient's decision for other reasons; Translations: [PROC AND TX NOT CARRIED OUT PT OTH RSN] Onset: 01-13-2023 Episodic Schizophrenia and other psychotic disorders (20 sources) Schizophrenia; Translations: [Schizophrenia, unspecified] Onset: 07-29-2016 09-28-2016 Chronic Schizophrenia and other psychotic disorders (12 sources) Acute schizophrenic episode; Translations: [Brief psychotic disorder] 11-09-2019 Episodic Spondylosis; intervertebral disc disorders; other back problems (2 sources) Dorsalgia, unspecified; Translations: [Chronic low back pain] Onset: 07-01-2022 Episodic Substance-related disorders (20 sources) Cocaine abuse; Translations: [Opioid abuse] Onset: 07-28-2016 Resolved: 07-23-2020 09-29-2016 Chronic Comment on above: History of heroine u se- stopped one year ago Added secondary to d ocumentation in Social History. Superficial injury; contusion (2 sources) Superficial injury of head; Translations: [Contusion of other part of head, initial encounter] Onset: 11-10-2022 Episodic Unclassified (1 source) Drug therapy finding; Translations: [Encounter for monitoring Subutex maintenance therapy] Onset: 07-28-2016 09-28-2016 Unclassified (6 sources) Bipolar (qualifier value) Onset: 10-12-2000 07-21-2010 Unclassified (8 sources) Patient encounter status 12-22-2019 Unclassified (2 sources) Fall on concrete (event) 10-02-2022 Unclassified (3 sources) COUGH, UNSPECIFIED; Translations: [COUGH, UNSPECIFIED] Onset: 07-01-2022 Unclassified (1 source) CONTACT W/AND (SUSP) EXPOS COVID-19; Translations: [CONTACT W/AND (SUSP) EXPOS COVID-19] Onset: 06-19-2022 Unclassified (3 sources) ALCOHOL USE UNSP WITHDRAWAL UNSP; Translations: [ALCOHOL USE UNSP WITHDRAWAL UNSP] Onset: 04-17-2022 Unclassified (1 source) Chronic midline low back pain without sciatica; Translations: [Chronic midline low back pain without sciatica] Onset: 04-16-2023 Urinary tract infections (16 sources) Urinary tract infectious disease; Translations: [Urinary tract infection, site not specified] Onset: 04-17-2022 Episodic Viral infection (12 sources) Infection of vagina caused by Human herpes simplex virus; Translations: [Herpesviral vulvovaginitis] 07-17-2020 Chronic Viral infection (1 source) Herpes simplex; Translations: [Herpes simplex] 07-24-2020 Episodic Past or Other Problems Problem Classification Problem Date Documented Date Episodic/Chronic Bacterial infection; unspecified site (1 source) Unspecified Escherichia coli [E. coli] as the cause of diseases classified elsewhere; Translations: [UNS E COLI CAUSE DX CLASS ELSEWHERE] Onset: 04-17-2022 Episodic Epilepsy; convulsions (17 sources) Seizure; Translations: [Unspecified convulsions] Onset: 07-28-2016 09-28-2016 Episodic Hepatitis (3 sources) Viral hepatitis C; Translations: [Hepatitis C carrier] Onset: 07-28-2016 07-25-2020 Episodic Hepatitis (5 sources) Hepatitis Onset: 10-12-2007 07-23-2012 Comment on above: HEPATITIS C Nausea and vomiting (2 sources) Nausea with vomiting, unspecified; Translations: [Nausea] Onset: 01-13-2023 Episodic Other circulatory disease (1 source) Low blood pressure; Translations: [Hypotension] Onset: 07-28-2016 Resolved: 07-23-2020 07-23-2020 Episodic Other complications of (1 source) High risk ; Translations: [HRP (high risk )] Onset: 07-28-2016 Resolved: 07-23-2020 07-23-2020 Episodic Other complications of (16 sources) Viral hepatitis complicating , childbirth and the puerperium; Translations: [Viral hepatitis complicating , unspecified trimester] Onset: 09-26-2016 03-16-2023 Episodic Other ear and sense organ disorders (1 source) Otalgia, bilateral; Translations: [OTALGIA BILATERAL] Onset: 06-19-2022 Episodic Other injuries and conditions due to external causes (1 source) Injury of abdomen; Translations: [Abdominal trauma] Onset: 07-14-2016 Resolved: 07-29-2016 07-29-2016 Episodic Other injuries and conditions due to external causes (16 sources) Injury of brachial plexus; Translations: [Injury of brachial plexus, initial encounter] Onset: 04-08-2015 03-16-2023 Episodic Other non-traumatic joint disorders (1 source) Shoulder pain; Translations: [Right shoulder pain] Onset: 04-18-2015 Resolved: 07-29-2016 07-29-2016 Episodic Poisoning by psychotropic agents (1 source) Tricyclic antidepressant overdose of undetermined intent; Translations: [TCA (tricyclic antidepressant) overdose of undetermined intent] Onset: 07-28-2016 09-28-2016 Episodic Residual codes; unclassified (1 source) Gestation period, 21 weeks; Translations: [21 weeks gestation of ] Onset: 07-28-2016 Resolved: 09-28-2016 09-28-2016 Episodic Residual codes; unclassified (1 source) Gestation period, 30 weeks; Translations: [30 weeks gestation of ] Onset: 09-28-2016 Resolved: 07-23-2020 07-23-2020 Episodic Residual codes; unclassified (1 source) Personal history of other specified conditions; Translations: [PERSONAL HISTORY OTH SPEC CONDITION] Onset: 07-01-2022 Episodic Screening and history of mental health and substance abuse codes (16 sources) H/O: schizophrenia; Translations: [Personal history of other mental and behavioral disorders] Onset: 09-26-2016 03-16-2023 Episodic Skin and subcutaneous tissue infections (1 source) Cellulitis and abscess of toe; Translations: [Cellulitis and abscess of toe of left foot] Onset: 07-28-2016 09-29-2016 Episodic Substance-related disorders (20 sources) Maternal drug use; Translations: [Opioid withdrawal] Onset: 07-28-2016 09-28-2016 Episodic Suicide and intentional self-inflicted injury (20 sources) Suicide attempt ; Translations: [Suicidal thoughts] Onset: 11-10-2022 05-31-2014 Episodic Comment on above: [facility] and depression and overdosed on pills Unclassified (15 sources) Onset: 01-18-2012 Resolved: 07-22-2018 08-16-2018 Unclassified (2 sources) Tobacco use during ( Confirmed ) Resolved: 08-07-2010 08-09-2010 Unclassified (8 sources) Tobacco use during Resolved: 08-07-2010 08-09-2010 Unclassified (1 source) COUGH, UNSPECIFIED; Translations: [COUGH, UNSPECIFIED] Onset: 06-22-2022 Unclassified (1 source) ALCOHOL USE UNSP WITHDRAWAL UNSP; Translations: [ALCOHOL USE UNSP WITHDRAWAL UNSP] Onset: 04-11-2022 Unclassified (4 sources) History of clinical finding in subject; Translations: [History of elopement from health care facility] 06-16-2023 Results Test Name Value Interpretation Reference Range Facil ity Patient Letter FTon 2022 Patient Letter [facility] [address] [place] [address] September 24, 2023 [place] [id number] [facility] [address] [place] [id number] : 1985 To whom it may concern, Patient is under my care as a primary care provider and given patient's past medical history of chronic psychiatric and physical debilitating disorders she is currently seeking disability which is pending. Also her mother recently which complicates her case. While the case is pending through the disability office suggesting patient be granted extended temporary relief from 09/10/23 to 12/08/2023 from seeking employment at this time until disability cases resolve/finalized. Please feel free to contact our office with any questions or concerns at [phone]. Respectfully, ERNESTINE Deshpande [facility] Consent for Treatmenton 08-14 Consent for Treatment [id number] #[id number] [facility] Discharge Instructionson Discharge Instructions [id number]#[id number] [facility] ED Clinical Summaryon 2022 ED Clinical Summary [place] [id number] ED Clinical Summary Person Information Name: LORNA DEUTSCH [place] Age: 38 Years : 1985 Sex: Female Language: Mozambican PCP: Cris PENA CNP Marital Status: Visit Id: Visit Reason: Medication refill; Anxiety; ANXIETY Speciality: Acuity: 4 Enc Type: Emergency Med Service: Emergency Arrival: 09/10/2023 15:21:39 Discharge: 09/10/2023 15:57:45 LOS: 000 00:36 Checkin: 09/10/2023 15:21:39 Checkout: 09/10/2023 15:57:45 Dispo Type: Home (Routine DC) EVENTS: Event Name Event Status Request Date/Time Start Date/Time Complete Date/Time Arrive Complete 09/10/2023 15:21:39 09/10/2023 15:21:39 09/10/2023 15:21:39 Document Home Meds Request 09/10/2023 15:21:39 Triage Complete 09/10/2023 15:21:39 09/10/2023 15:29:30 09/10/2023 15:29:30 Bed Assign Complete 09/10/2023 15:23:43 09/10/2023 15:23:43 09/10/2023 15:23:43 Dr Exam Complete 09/10/2023 15:23:43 09/10/2023 15:32:47 09/10/2023 15:32:47 RN Exam Complete 09/10/2023 15:23:43 09/10/2023 15:56:51 09/10/2023 15:56:51 Registration Request 09/10/2023 15:32:47 Dr Exam Complete 09/10/2023 15:32:52 09/10/2023 15:32:52 09/10/2023 15:32:52 Meds Admin Complete 09/10/2023 15:39:26 09/10/2023 15:53:14 Discharge Complete 09/10/2023 15:42:59 09/10/2023 15:57:53 09/10/2023 15:57:53 Transfer Complete 09/10/2023 15:57:53 09/10/2023 15:57:53 09/10/2023 15:57:53 ADDRESS: [address] [place] [phone] PHYS DOC NOTES: MEDICAL INFORMATION: Prescriptions Given: Medications to Continue with No Changes Other Medications albuterol (albuterol 0.083% Inh Vera 3 mL) 3 Milliliter Inhalation every 6 hours as needed for wheezing. Refills: 1. albuterol (albuterol HFA 90 mcg/inh MDI) 2 Puffs Inhalation 4 times a day. Refills: 1. budesonide (Pulmicort Flexhaler 180 mcg/inh Powder) 2 Inhalation Inhalation 2 times a day. Refills: 10. clonazepam (ClonazePAM 0.5 mg Tab) 1 Tablets By Mouth 2 times a day. Refills: 0. hydrOXYzine (hydrOXYzine hydrochloride 25 mg Tab) 1 Tablets By Mouth every day. Refills: 0. PATIENT EDUCATION INFORMATION: Instructions: Generalized Anxiety Disorder, Adult Follow up: With: Address: When: Cris PENA [address], [place] [id number] [employer] In 3 days 09/13/2023 DIAGNOSIS: Anxiety state [facility] ED Note-Physicianon 09-10-20 ED Note-Physician Basic Information Time Seen: Ricco Hoang PA-C 09/10/2023 15:32 Chief Complaint patient experiencing increased anxiety. states that she left her anxiety medication at a friends house an they are out of town. looking for klonopin and adderal refill. Mother this AM, increasing anxiety. History of Present Illness 38-year-old female comes to the ED for evaluation of anxiety. Longstanding history of anxiety for which he takes Klonopin. Her mother this morning which is triggered her anxiety. She states she currently does not have her medications as she does not a friend's house. She is requesting medication to help with her anxiety. She denies any acute medical complaints. Not suicidal homicidal. She is calm and cooperative. Review of Systems A 10 point review of systems is negative except as noted above. Medical and Surgical History: Reviewed and noted Social history: Lives at home Tobacco: Denies Physical Exam Vitals & Measurements T: 36.7 ?C(Oral) HR: 90(Peripheral) RR: 18 BP: 155/82 SpO2: 98% HT: 167.6 cm WT: 76 kg BMI: 27.06 Nurses notes and vital signs reviewed and patient is not hypoxic. General: Awake and alert, tearful. Skin: Warm, dry, no pallor noted. Head: Atraumatic. Neck: No JVD. Eye: Normal conjunctiva. Ears, Nose, Mouth, and Throat: Moist mucous membranes Cardiovascular: Strong distal pulses. Chest wall: Respiratory: Respirations are nonlabored. Lungs clear to auscultation. Back: Normal range of motion, no CVA tenderness. Musculoskeletal: Normal ROM with no gross deformity. Gastrointestinal: Soft and nontender. Urological: Neurological: Awake and alert. No focal deficits. Follows commands. GCS 15. Psychiatric: Cooperative. Anxious. Not suicidal, not homicidal Medical Decision Making Patient presents with anxiety. She is requesting medication refills as she left her prescriptions at a friend's house. Explained that we do not refill controlled substance but she is given 1 tablet 1 tab to go home as she does have an exacerbating factor of her mother this morning. She is to follow-up with her PCP. Patient was encouraged to return to the ED if symptoms worsen or change. Assessment/Plan Anxiety state (F41.1: Generalized anxiety disorder) Orders: lorazepam, 2 mg = 2 tab(s), Tab, Oral, Once, Stop date 09/10/23 15:38:00 EST, STAT, Start date 09/10/23 15:38:00 EST, 09/10/23 15:38:00 EST lorazepam, 1 mg = 1 tab(s), Tab, Oral, Once, Stop date 09/10/23 15:38:00 EST, STAT, Start date 09/10/23 15:38:00 EST, 09/10/23 15:38:00 EST Disposition Plan Patient Discharge Condition Disposition: Discharged home Condition: Improved and stable Counseled: Patient and/or family were counseled to workup, results, treatment plan and follow-up recommendations Discharge Prescription List Prescriptions No active prescription medications Follow-up With When Contact Information Cris PENA In 3 days 09/13/2023 EST [address] [place] [id number] [facility] (1) Additional Instructions: Patient Education Generalized Anxiety Disorder, Adult Attestation Patient seen and evaluated by the physician dermatology physician assistant. Attending physician was present in the emergency department and supervised care. This visit was performed by both the physician and an APC. I performed all aspects of the MDM as documented. This report was transcribed using voice recognition software. Every effort was made to ensure accuracy, however, inadvertently computerized stock checkerer mistakes may be present. Appropriate healthcare PPE was used in evaluating this patient. The patient was placed in a mask. The healthcare provider was wearing mask, gloves, and utilizing proper hand hygiene. All equipment was properly cleansed. Problem List/Past Medical History Ongoing ADHD ASTHMA BMI 25.0-25.9,adult Chronic back pain Chronic hepatitis C Constipation Contraception management History of drug abuse Neuropathy Paranoid schizophrenia Smoker Historical HEPATITIS, C Substance abuse Suicide attempt Tobacco use during Tobacco use during Procedure/Surgical History teeth extraction (10/12/2011), denies. Medications Inpatient Ativan 1 mg Tab, 2 mg= 2 tab(s), Oral, Once Ativan 1 mg Tab, 1 mg= 1 tab(s), Oral, Once Home Adderall 20 mg Tab, 20 mg= 1 tab(s), Oral, BID Adderall 20 mg Tab, 20 mg= 1 tab(s), Oral, BID albuterol 0.083% Inh Vera 3 mL, 2.5 mg= 3 mL, Inhalation, q6hr, PRN, 1 refills albuterol HFA 90 mcg/inh MDI, 2 puff(s), Inhalation, QID, 1 refills ClonazePAM 0.5 mg Tab, 0.5 mg= 1 tab(s), Oral, BID Depakote, 500 mg, Oral, TID Depakote DR 500 mg Tab-EC, See Instructions, 3 refills gabapentin 400 mg Cap, See Instructions, 2 refills, Not taking hydrOXYzine hydrochloride 10 mg/5 mL Oral Syrup, 20 mg= 10 mL, Oral, QID, PRN, 3 refills hydrOXYzine hydrochloride 25 mg Tab, 25 mg= 1 tab(s), Oral, Lukasz (more content not included)... [facility] Comment on above: Result Comment: Elec tronically Signed By: Ricco Hoang PA-C\.br\Date and Time Signed: 09/10/23 15:44 EST\.br\Electronically Co-Signed By: Derrell Orantes DO\.br\Date and Time Co-Signed: 09/10/23 21:27 EST ED Patient Education Noteon 09-10-2023 ED Patient Education Note Mental and Behavioral Health Generalized Anxiety Disorder, Adult Generalized anxiety disorder (VALERIA) is a mental health condition. Unlike normal worries, anxiety related to VALERIA is not triggered by a specific event. These worries do not fade or get better with time. VALERIA interferes with relationships, work, and school. VALERIA symptoms can vary from mild to severe. People with severe VALERIA can have intense waves of anxiety with physical symptoms that are similar to panic attacks. What are the causes? The exact cause of VALERIA is not known, but the following are believed to have an impact: ? Differences in natural brain chemicals. ? Genes passed down from parents to children. ? Differences in the way threats are perceived. ? Development and stress during childhood. ? Personality. What increases the risk? The following factors may make you more likely to develop this condition: ? Being female. ? Having a family history of anxiety disorders. ? Being very shy. ? Experiencing very stressful life events, such as the of a loved one. ? Having a very stressful family environment. What are the signs or symptoms? People with VALERIA often worry excessively about many things in their lives, such as their health and family. Symptoms may also include: ? Mental and emotional symptoms: ? Worrying excessively about natural disasters. ? Fear of being late. ? Difficulty concentrating. ? Fears that others are judging your performance. ? Physical symptoms: ? Fatigue. ? Headaches, muscle tension, muscle twitches, trembling, or feeling shaky. ? Feeling like your heart is pounding or beating very fast. ? Feeling out of breath or like you cannot take a deep breath. ? Having trouble falling asleep or staying asleep, or experiencing restlessness. ? Sweating. ? Nausea, diarrhea, or irritable bowel syndrome (IBS). ? Behavioral symptoms: ? Experiencing erratic moods or irritability. ? Avoidance of new situations. ? Avoidance of people. ? Extreme difficulty making decisions. How is this diagnosed? This condition is diagnosed based on your symptoms and medical history. You will also have a physical exam. Your health care provider may perform tests to rule out other possible causes of your symptoms. To be diagnosed with VALERIA, a person must have anxiety that: ? Is out of his or her control. ? Affects several different aspects of his or her life, such as work and relationships. ? Causes distress that makes him or her unable to take part in normal activities. ? Includes at least three symptoms of VALERIA, such as restlessness, fatigue, trouble concentrating, irritability, muscle tension, or sleep problems. Before your health care provider can confirm a diagnosis of VALERIA, these symptoms must be present more days than they are not, and they must last for 6 months or longer. How is this treated? This condition may be treated with: ? Medicine. Antidepressant medicine is usually prescribed for long-term daily control. Anti-anxiety medicines may be added in severe cases, especially when panic attacks occur. ? Talk therapy (psychotherapy). Certain types of talk therapy can be helpful in treating VALERIA by providing support, education, and guidance. Options include: ? Cognitive behavioral therapy (CBT). People learn coping skills and self-calming techniques to ease their physical symptoms. They learn to identify unrealistic thoughts and behaviors and to replace them with more appropriate thoughts and behaviors. ? Acceptance and commitment therapy (ACT). This treatment teaches people how to be mindful as a way to cope with unwanted thoughts and feelings. ? Biofeedback. This process trains you to manage your body's response (physiological response) through breathing techniques and relaxation methods. You will work with a therapist while machines are used to monitor your physical symptoms. ? Stress management techniques. These include yoga, meditation, and exercise. A mental health specialist can help determine which treatment is best for you. Some people see improvement with one type of therapy. However, other people require a combination of therapies. Follow these instructions at home: Lifestyle ? Maintain a consistent routine and schedule. ? Anticipate stressful situations. Create a plan and allow extra time to work with your plan. ? Practice stress management or self-calming techniques that you have learned from your therapist or your health care provider. ? Exercise regularly and spend time outdoors. ? Eat a healthy diet that includes plenty of vegetables, fruits, whole grains, low-fat dairy products, and lean protein. ? Do not eat a lot of foods that are high in fat, added sugar, or salt (sodium). ? Drink plenty of water. ? Avoid alcohol. Alcohol can increase anxiety. ? Avoid caffeine and certain [id number] cold medicines. These may make you feel worse. Ask your pharmacist which medicines to issa (more content not included)... [facility] ED Patient Summaryon 023 ED Patient Summary [address] [address] Patient Discharge Instructions Person Information Name: LORNA DEUTSCH Age: 38 Years Arrival Date: 09/10/2023 15:21:39 Discharge Diagnosis: Anxiety state Primary Care Physician: Cris PENA CNP Provider Information Primary Provider: Derrell Orantes DO Advanced Cnc Lathe Programmer:Ricco Hoang PA-C The exam and treatment you received in the Emergency Department were for an urgent problem and are not intended as complete care. It is important that you follow up with a doctor, nurse practitioner, or physician?s dermatology physician assistant for ongoing care. If your symptoms become worse or you do not improve as expected and you are unable to reach your usual health care provider, you should return to the Emergency Department. We are available 24 hours a day. LA NENA LORNA Karan has been given the following list of patient education materials, prescriptions and follow-up instructions: Follow-up Instructions: With: Address: When: Cris [address]NA [address] [place] [address] Business (1) In 3 days 09/13/2023 In the event that this physician does not participate in your insurance network, please consult with your insurance company to find a nearby participating provider. Patient Education Materials: Generalized Anxiety Disorder, Adult A MESSAGE TO ALL PATIENTS REGARDING OPIOIDS PRESCRIPTION OPIOIDS: WHAT YOU NEED TO KNOW Prescription opioids can be used to help relieve tucmycoa-jw-wqzpoh pain and are often prescribed following a surgery or injury, or for certain health conditions. These medications can be an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 ? Increased appetite. How is this diagnosed? This condition is diagnosed based on: ? A physical exam. ? Your history of methamphetamine use. ? Your symptoms. This includes: ? How methamphetamine use affects your life. ? Changes in personality, behaviors, and mood. ? Having at least two symptoms of methamphetamines use disorder within a 12-month period. How severe the condition is depends on how many symptoms you have. ? Health issues related to using methamphetamines. ? Blood or urine tests to screen for drugs. How is this treated? The first goal of treatment is to stop your use of methamphetamines. This must be done safely and may involve taking medicines to lessen withdrawal symptoms. Treatment may also involve: ? Taking part in group and individual counseling from mental health providers who have experience with substance use disorder. ? Staying at a residential treatment center for several days or weeks. ? Attending daily counseling sessions at a treatment center. ? Taking medicines as told by your health care provider that: ? Ease symptoms and prevent complications during withdrawal. ? Block cravings and block the good feeling that you get from using methamphetamines. ? Treat other mental health issues, such as depression or anxiety. ? Reduce agitation. ? Participating in a support group to share your experience with others who are going through the same thing. Recovery can be a long process. Many people who undergo treatment start using the drug again after stopping (relapse). If you relapse, it does not mean that treatment will not work. Follow these instructions at home: (more content not included)... [facility] ED Patient Summaryon 023 ED Patient Summary [place] [id number] Patient Discharge Instructions Person Information Name: LORNA DEUTSCH Age: 38 Years Arrival Date: 08/07/2023 02:33:18 Discharge Diagnosis: Anxiety; Methamphetamine use Primary Care Physician: Cris PENA CNP Provider Information Primary Provider: Norma Dietz DO Advanced Cnc Lathe Programmer:None The exam and treatment you received in the Emergency Department were for an urgent problem and are not intended as complete care. It is important that you follow up with a doctor, nurse practitioner, or physician?s dermatology physician assistant for ongoing care. If your symptoms become worse or you do not improve as expected and you are unable to reach your usual health care provider, you should return to the Emergency Department. We are available 24 hours a day. LORNA DEUTSCH has been given the following list of patient education materials, prescriptions and follow-up instructions: Follow-up Instructions: With: Address: When: [facility] [phone] In 3 days 08/10/2023 With: Address: When: Cris PENA [address] [id number] [employer] In 3 days 08/10/2023 Comments: Please follow-up with your primary care doctor next 2 to 3 days for further evaluation and management. Return to the ED for any new or worsening symptoms. In the event that this physician does not participate in your insurance network, please consult with your insurance company to find a nearby participating provider. Patient Education Materials: Methamphetamines Use Disorder A MESSAGE TO ALL PATIENTS REGARDING OPIOIDS PRESCRIPTION OPIOIDS: WHAT YOU NEED TO KNOW Prescription opioids can be used to help relieve cdyeyanh-yn-kttvdv pain and are often prescribed following a surgery or injury, or for certain health conditions. These medications can be an important part of the treatment but also come with serious risks. It is important to work with your healthcare provider to make sure you are getting the safest, most effective care. WHAT ARE THE RISKS AND SIDE EFFECTS OF OPIOID USE? Prescription opioids carry serious risks of addiction and overdose, especially with prolonged use. An opioid overdose, often marked by slowed breathing, can cause sudden . The use of prescription opioids can have a number of side effects as well, even when taken as directed: ? Tolerance?meaning you might need to take more of the medication for the same pain relief ? Physical dependence?meaning you have symptoms of withdrawal when a medication is stopped ? Increased sensitivity to pain ? Constipation ? Nausea, vomiting, and dry mouth ? Sleepiness and dizziness ? Confusion ? Depression ? Low levels of testosterone that can result in lower sex drive, energy, and strength ? Itching and sweating RISKS ARE GREATER WITH: ? History of drug misuse, substance use disorder, or overdose ? Mental health conditions (such as depression or anxiety) ? Sleep apnea ? Older age (65 years and older) ? Avoid alcohol while taking prescription opioids. Also, unless specifically advised by your health care provider, medications to avoid include: ? Benzodiazepines (such as Xanax or Valium) ? Muscle relaxants (such as Soma or Flexeril) ? Hypnotics (such as Ambien or Lunesta) ? Other prescription opioids KNOW YOUR OPTIONS Talk to your health care provider about ways to manage your pain that don?t involve prescription opioids. Some of these options may actually work better and have fewer risks and side effects. Options may include: ? Pain relievers such as acetaminophen, ibuprofen, and naproxen ? Some medication that are also used for depression or seizures ? Physical therapy and exercise ? Cognitive behavioral therapy, a psychological, goal-directed approach, in which patients learn how to modify physical, behavioral, and emotional triggers of pain and stress. IF YOU ARE PRESCRIBED OPIOIDS FOR PAIN: ? Never take opioids in greater amounts or more often than prescribed. ? Follow up with your primary health care provider. o Work together to create a plan on how to manage your pain. o Talk about ways to help manage your pain that don?t involve prescription opioids. o Talk about any and all concerns and side effects. ? Help prevent misuse and abuse o Never sell or share prescription opioids. o Never use another person?s prescription opioids. ? Store prescription opioids in a secure place and out of reach of others (this may include visitors, children, friends, and family). ? Safely dispose of unused prescription opioids: Find your community drug take-back program or your pharmacy mail-back program, or flush them down the toilet, following guidance from the Food and Drug Administration (www.fda.gov/Drugs/R esourcesForYou). ? Visit www.cdc.gov/drugover dose to lear (more content not included)... [facility] Patient Correspondenceon Patient Correspondence [phone] [id number] [facility] Patient Letter FTMCon 2022 Patient Letter [facility] [address] [place] [address] July 14, 2023 LORNA DEUTSCH [address] [id number] : 1985 To whom it may concern, Patient is under my care as a primary care provider and given patient's past medical history of chronic psychiatric and physical debilitating disorders she is currently seeking disability which is pending. While the case is pending through the disability office suggesting patient be granted extended temporary relief from 10/12/22 to 09/10/2023 from seeking employment at this time until disability cases resolve/finalized. Please feel free to contact our office with any questions or concerns at [phone]. Respectfully, ERNESTINE Deshpande [facility] Loni 07-07-2023 [facility] LORNA DEUTSCH ([id number]) 1985 F Date Time Provider Department 07/07/23 LARA SALINAS OTTONIEL During your visit today, we recorded the following information about you: Allergies As of Date: 07/07/2023 (No Known Allergies) Date Reviewed: 04/24/2023 Reviewed by: Mireille Cheatham APRN.WAITER/WAITRESS COCKTAIL LOUNGE - Fully Assessed Prescriptions as of 07/07/2023 - clonazePAM (KLONOPIN) 1 mg tablet Take 0.5 tablets by mouth three times daily as needed for up to 30 days. for insomnia. - pregabalin (LYRICA) 100 mg capsule Take 1 capsule by mouth three times daily for 30 days. - pregabalin (LYRICA) 100 mg capsule Take 1 capsule by mouth three times daily for 90 days. - gabapentin (NEURONTIN) 800 mg tablet Take 1 tablet by mouth twice daily for 7 days, THEN 1 tablet once daily for 7 days. - dextroamphetamine-am phetamine (ADDERALL) 10 mg tablet Take 2 tablets by mouth twice daily for 30 days. - methadone (DOLOPHINE) 5 mg tablet Take 10 mg by mouth. - QUEtiapine (SEROQUEL) 200 mg tablet Take 200 mg by mouth. - divalproex ER (DEPAKOTE ER) 500 mg 24 hr tablet Take 500 mg by mouth once daily. Problem List As Of Date 07/07/2023 Noted Resolved Anxiety [F41.9] 11/20/2022 Bipolar depression (HCC) [F31.9] 03/16/2023 Unspecified convulsions (HCC) [R56.9] 07/01/2022 Gastro-esophageal reflux disease without esopha*01/13/2023 Chronic hepatitis C affecting , antepa*09/26/2016 Attention deficit hyperactivity disorder (ADHD)*01/12/2023 ADHD [F90.9] 03/16/2023 03/16/2023 Asthma [J45.909] 03/16/2023 Brachial plexus injury, right [S14.3XXA] 04/08/2015 History of heroin abuse (HCC) [F11.11] 09/26/2016 History of paranoid schizophrenia [Z86.59] 09/26/2016 Paranoid schizophrenia (HCC) [F20.0] 03/16/2023 Encounter Status:Closed by LARA SALINAS on 07/07/23 [facility] Valproate [Mass/volume] in S maris or PlasmaOrdered By: Claudio Dee on 07-06-2023 Valproate [Mass/Vol] 40.5 ug/mL 50.0-100.0 [facility] Comment on above: Last dose: - Valproic Acid (in house)on 0 07-06-2023 Valproic Acid (in house) 40.5 ug/mL Low 50.0-100.0 [facility] Comment on above: Result Comment: Last dose: - PERFORMED BY: [place] [address] PATHOLOGIST MANAGER TALENT DANYELL LIVINGSTON M.D. Performed By: #### C HEMAL HERNANDEZ URDS #### [address] Cholesterol [Mass/volume] in Serum or PlasmaOrdered By: Bobo Shields on 07-03-2023 Cholesterol [Mass/Vol] 179 mg/dL 140-200 [facility] Comment on above: Chol less than 200 m g/dl low riskChol 201-239 mg/dl borderline riskChol 240 mg/dl and greater high risk Cholesterol in LDL Calc [Mas s/Vol]Ordered By: Bobo Shields on 07-03-2023 Cholesterol in LDL [Mass/Vol] 111 mg/dL 0-100 [facility] Comment on above: LDL ATP III CLASSIFI CATIONLDL less than 100 mg/dL OptimalLDL 100-129 mg/dL Near or above optimalLDL 130-159 mg/dL Borderline highLDL 160-189 mg/dL HighLDL greater than 189 mg/dL Very high Cholesterol in VLDL Calc [Ma ss/Vol]Ordered By: Bobo Shields on 07-03-2023 Cholesterol in VLDL [Mass/Vol] 27 mg/dL [facility] ECG 12 lead ECGon 07-03-2023 ECG 12 lead ECG [facility] [address] [place] [address] Electrocardiograph Report Signed Patient: Lorna Deutsch MR#: [id number] 98 : 1985 Acct:[id number] Age/Sex: 38 / F ADM Date: 07/02/23 Loc: Room: [address] [place] [address] Type: ADM IN Attending Dr: Bobo Shields MD Ordering Provider: Bobo Shields MD Date of Service: 07/03/23 ECG/ECG 12 lead ECG: ANTIPSYCHOTIC THERAPY Copies to: Test Reason : Blood Pressure : / mmHG Vent. Rate : 059 BPM Atrial Rate : 059 BPM P-R Int : 106 ms QRS Dur : 098 ms QT Int : 434 ms P-R-T Axes : 021 068 057 degrees QTc Int : 429 ms Sinus bradycardia with short ME Otherwise normal ECG When compared with ECG of 14-JAN-2023 07:10, No significant change was found Confirmed by HUBER RAMOS [facility] ([id number]) on 07/03/2023 12:33:59 PM Referred By: Electronically Signed By:BRITNI NGO MD FAC Transcribed By: MUS Signed By Britni Ngo MD, FACC 07/03/23 1234 [facility] Lipid Panelon 07-03-2023 Cholesterol [Mass/Vol] 179 mg/dL Normal 140-200 [facility] Comment on above: Result Comment: Chol less than 200 mg/dl low risk Chol 201-239 mg/dl borderline risk Chol 240 mg/dl and greater high risk Performed By: #### C HEMAL HERNANDEZ URDS #### [facility] [address] Cholesterol in HDL [Mass/Vol] 40 mg/dL Normal 23- [facility] Comment on above: Result Comment: HDL CHOL ATP-III CLASSIFICATION Cardiovascular Risk HDL > or equal to 60 mg/dL LOW HDL < 40 mg/dL HIGH Performed By: #### HEMAL AYALA URDS #### [facility] [address] Cholesterol.total/Chol esterol in HDL [Mass ratio] 4.5 {ratio} Normal <5.0 [facility] Comment on above: Performed By: #### HEMAL AYALA URCHANTALE #### [facility] [address] LDL Cholesterol,Calculated 111 mg/dL High 0-100 [facility] Comment on above: Result Comment: LDL ATP III CLASSIFICATION LDL less than 100 mg/dL Optimal LDL 100-129 mg/dL Near or above optimal LDL 130-159 mg/dL Borderline high LDL 160-189 mg/dL High LDL greater than 189 mg/dL Very high Performed By: #### HEMAL AYALA URCHANTALE #### [address] Triglyceride w/Reflex 138 mg/dL Normal 0-149 [facility] Comment on above: Result Comment: TRIG ATP III CLASSIFICATION TRIG less than 150 mg/dL Normal TRIG 150-199 mg/dL Borderline high TRIG 200-500 mg/dL High TRIG greater than 500 mg/dL Very high Standard traceable to the Center for Disease Conrtrol and Prevention (CDC) test method. Performed By: #### HEMAL AYALA URDS #### [facility] [address] VLDL CHOLESTEROL 27 mg/dL Normal [facility] Comment on above: Performed By: #### HEMAL AYALA, URDS #### [facility] [address] Serum or plasma high density lipoprotein (HDL) cholesterol measurementOrdered By: Bobo Shields on 07-03-2023 Cholesterol in HDL [Mass/Vol] 40 mg/dL - [facility] Comment on above: HDL CHOL ATP-III CLA SSIFICATION Cardiovascular RiskHDL > or equal to 60 mg/dL LOWHDL < 40 mg/dL HIGH Serum or plasma total choles terol/high density lipoprotein (HDL) cholesterol mass ratOrdered By: Bobo Shields on 07-03-2023 Cholesterol.total/Chol esterol in HDL [Mass ratio] 4.5 {ratio} <5.0 [facility] Thyroid Stim Hormone w/Rflxo n 07-03-2023 Thyroid Stim Hormone w/Rflx 5.18 u[iU]/mL Normal 0.45-5.33 [facility] Comment on above: Performed By: #### C HEMAL HERNANDEZ, DAVIDDS #### [facility] [address] Thyrotropin [Units/volume] i n Serum or PlasmaOrdered By: Bobo Shields on 07-03-2023 TSH Qn 5.18 m[IU]/L 0.45-5.33 [facility] Triglyceride [Mass/volume] i n Serum or PlasmaOrdered By: Bobo Shields on 07-03-2023 Triglyceride [Mass/Vol] 138 mg/dL 0-149 [facility] Comment on above: TRIG ATP III CLASSIF ICATIONTRIG less than 150 mg/dL NormalTRIG 150-199 mg/dL Borderline highTRIG 200-500 mg/dL High TRIG greater than 500 mg/dL Very highStandard traceable to the Center for Disease Conrtrol and Prevention (CDC) test method. Vitamin D 25 Hydroxy Totalon 07-03-2023 Vitamin D 25 Hydroxy Total 17.2 ng/mL Low 30-100 [facility] Comment on above: Result Comment: KAVON MIN D STATUS 25([place])VITAMIN D RANGE (ng/mL) Deficient <20 Insufficient 20 to <30 Sufficient 30 to 100 Reference: Deb MF,Stephanie NC, Edd-Karri CORONEL, et al. Evaluation,treatment, and prevention of vitamin D deficiency; an Endocrine Society clinical practice guideline. JCEM. 2010; 96(7):1911-30. PERFORMED BY: [facility] [address] [place] [address] PATHOLOGIST MANAGER TALENT DANYELL LIVINGSTON M.D. Performed By: #### C HEMAL HERNANDEZ, URDS #### [facility] [address] [place] [id number] [facility] Vitamin D+Metabolites [Mass/ volume] in Serum or PlasmaOrdered By: Bobo Shields on 07-03-2023 Vitamin D+Metabolites [Mass/Vol] 17.2 ng/mL 30-100 [facility] Comment on above: VITAMIN D STATUS 25( [place])VITAMIN D RANGE (ng/mL) Deficient <20 Insufficient 20 to <30Sufficient 30 to 100Reference: Deb LYONS,Stephanie HERNANDEZ, Ro CORONEL, et al. Evaluation,treatment, and prevention of vitamin D deficiency; an Endocrine Society clinical practice guideline. JCEM. 2010; 96(7):1911-30. Loni 06-17-2023 [facility] Telephone (PAINTW) LORNA DEUTSCH ([id number]) 1985 F Date Time Provider Department 06/17/23 LADI KOCH During your visit today, we recorded the following information about you: Sandra Garcia 06/17/2023 1:30 PM Signed Lorna Deutsch is calling Ladi Koch MD today. Patient states that her pain is not controlled on the Lyrica. Patient is asking for an increase in the Lyrica to 150 mg or to switch back to Neurontin 800 mg. Patient has been identified by name and birthdate. Duration of symptoms: N/A Person calling: self Call patient at: [phone] Was an appointment scheduled: Marty Obrien OCCA 06/17/2023 1:34 PM Signed Please advise thank you CLARA Aguilar June 17, 2023 1:34 PM Marvin Sanchez 06/18/2023 1:59 PM Signed The patient called back to ask if the script could be sent to another pharmacy. pregabalin (LYRICA) 100 mg capsule e- [facility] 1985 [place] [address] - [address] [facility] [phone] 1985 Marvin Sanchez 06/18/2023 1:59 PM Signed Addended by: MARVIN SANCHEZ on: 06/18/2023 01:59 PM Modules accepted: Orders Allergies As of Date: 06/17/2023 (No Known Allergies) Date Reviewed: 04/24/2023 Reviewed by: Mireille Cheatham APRN.WAITER/WAITRESS COCKTAIL LOUNGE - Fully Assessed Reason for Visit: Medication Problem [65] Visit Diagnosis:Myofascial pain syndrome [M79.18] Prescriptions as of 06/18/2023 - clonazePAM (KLONOPIN) 1 mg tablet Take 0.5 tablets by mouth three times daily as needed for up to 30 days. for insomnia. - pregabalin (LYRICA) 100 mg capsule Take 1 capsule by mouth three times daily for 90 days. - gabapentin (NEURONTIN) 800 mg tablet Take 1 tablet by mouth twice daily for 7 days, THEN 1 tablet once daily for 7 days. - dextroamphetamine-am phetamine (ADDERALL) 10 mg tablet Take 2 tablets by mouth twice daily for 30 days. - methadone (DOLOPHINE) 5 mg tablet Take 10 mg by mouth. - QUEtiapine (SEROQUEL) 200 mg tablet Take 200 mg by mouth. - divalproex ER (DEPAKOTE ER) 500 mg 24 hr tablet Take 500 mg by mouth once daily. Problem List As Of Date 06/17/2023 Noted Resolved Anxiety [F41.9] 11/20/2022 Bipolar depression (HCC) [F31.9] 03/16/2023 Unspecified convulsions (HCC) [R56.9] 07/01/2022 Gastro-esophageal reflux disease without esopha*01/13/2023 Chronic hepatitis C affecting , antepa*09/26/2016 Attention deficit hyperactivity disorder (ADHD)*01/12/2023 ADHD [F90.9] 03/16/2023 03/16/2023 Asthma [J45.909] 03/16/2023 Brachial plexus injury, right [S14.3XXA] 04/08/2015 History of heroin abuse (HCC) [F11.11] 09/26/2016 History of paranoid schizophrenia [Z86.59] 09/26/2016 Paranoid schizophrenia (HCC) [F20.0] 03/16/2023 Encounter Status:Closed by MARTY TORREZ on 06/17/23 Normal [facility] Alanine aminotransferase [En zymatic activity/volume] in Serum or PlasmaOrdered By: Luis Armando Hendrix on 06-08-2023 ALT [Catalytic activity/Vol] 7 U/L 7-52 [facility] Albumin [Mass/volume] in Ser um or Plasma by Bromocresol green (BCG) dye binding methoOrdered By: Luis Armando Hendrix on 06-08-2023 Albumin BCG dye [Mass/Vol] 3.6 g/dL 3.5-5.7 [facility] Alkaline phosphatase [Enzyma tic activity/volume] in Serum or PlasmaOrdered By: Luis Armando Hendrix on 06-08-2023 ALP [Catalytic activity/Vol] 35 U/L 34-104 [facility] Amphetamine Screen Ql (U)Ord ered By: Luis Armando Hendrix on 06-08-2023 Amphetamines Ql (U) Negative Negative [facility] Aspartate aminotransferase [ Enzymatic activity/volume] in Serum or PlasmaOrdered By: Luis Armando Hendrix on 06-08-2023 AST [Catalytic activity/Vol] 9 U/L 13-39 [facility] Automated erythrocytes count in urine sediment (number/area)Ordered By: Luis Armando Hendrix on 06-08-2023 RBC Auto (Urine sed) [#/Area] 1-2 [HPF] 0-4 [facility] Automated leukocytes count i n urine sediment (number/area)Ordered By: Luis Armando Hendrix on 06-08-2023 WBC Auto (Urine sed) [#/Area] Innumerable [HPF] 0-4 [facility] Barbiturates [Presence] in U rine by Screen methodOrdered By: Luis Armando Hendrix on 06-08-2023 Barbiturates Screen Ql (U) Negative Negative [facility] Basophils Auto (Bld) [#/Vol] Ordered By: Luis Armando Hendrix on 06-08-2023 Basophils (Bld) [#/Vol] 0.0 10*3/uL 0.0-0.2 [facility] Basophils/100 WBC Auto (Bld) Ordered By: Luis Armando Hendrix on 06-08-2023 Basophils/100 WBC (Bld) 0.7 % . [facility] Benzodiazepines Screen Ql (U )Ordered By: Luis Armando Hendrix on 06-08-2023 Benzodiazepines Ql (U) Negative Negative [facility] Benzoylecgonine [Presence] i n Urine by Screen methodOrdered By: Luis Armando Hendrix on 06-08-2023 Benzoylecgonine Screen Ql (U) Negative Negative [facility] Bilirubin Test strip Ql (U)O rdered By: Luis Armando Hendrix on 06-08-2023 Bilirubin Ql (U) Negative Negative [facility] Bilirubin.total [Mass/volume ] in Serum or PlasmaOrdered By: Luis Armando Hendrix on 06-08-2023 Bilirubin [Mass/Vol] 0.3 mg/dL 0.3-1.0 [facility] Calcium [Mass/volume] in Ser um or PlasmaOrdered By: Luis Armando Hendrix on 06-08-2023 Calcium [Mass/Vol] 8.9 mg/dL 8.6-10.3 [facility] Cannabinoids [Presence] in U rine by Screen methodOrdered By: Luis Armando Hendrix on 06-08-2023 Cannabinoids Screen Ql (U) Negative Negative [facility] Comment on above: These are unconfirme d results and should not be used for legal purposes. Drug Cut-Off Concentration: AMPH 1000 ng/mL SARA 200 ng/mL MARTÍNEZ 200 ng/mL COCM 300 ng/mL OP 300 ng/mL PCP 25 ng/mL THC 20 ng/mL Carbon dioxide, total [Moles /volume] in Serum or PlasmaOrdered By: Luis Armando Hendrix on 06-08-2023 CO2 [Moles/Vol] 31.1 mmol/L 21.0-31.0 [facility] Chloride [Moles/volume] in S maris or PlasmaOrdered By: Luis Armando Hendrix on 06-08-2023 Chloride [Moles/Vol] 106 mmol/L 98-107 [facility] Color Auto (U)Ordered By: Angelic Hendrix on 06-08-2023 Color (U) Yellow Yellow [facility] Complete Blood Count Auto Di ffon 06-08-2023 Basophils (Bld) [#/Vol] 0.0 10*3/uL Normal 0.0-0.2 [facility] Comment on above: Result Comment: PERF ORMED BY: [place] [address] PATHOLOGIST MANAGER TALENT DANYELL LIVINGSTON M.D. Performed By: #### C UU, ADDONUAPLUS, URDS #### [address] Basophils/100 WBC (Bld) 0.7 % Normal . [facility] Comment on above: Performed By: #### C UU, ADDONUAPLUS, URDS #### [address] Eosinophils (Bld) [#/Vol] 0.1 10*3/uL Normal 0.0-0.45 [facility] Comment on above: Performed By: #### C UU, ADDONUAPLUS, URDS #### [address] Eosinophils/100 WBC (Bld) 2.2 % Normal . [facility] Comment on above: Performed By: #### C UU, ADDONUAPLUS, URDS #### [address] Erythrocyte distribution width (RBC) [Ratio] 13.5 % Normal 11.9-15.3 [facility] Comment on above: Performed By: #### C UU, ADDONUAPLUS, URDS #### [address] Hematocrit (Bld) [Volume fraction] 39.0 % Normal 34.0-46.4 [facility] Comment on above: Performed By: #### C UU, ADDONUAPLUS, URDS #### [address] Hemoglobin (Bld) [Mass/Vol] 13.0 g/dL Normal 11.8-15.4 [facility] Comment on above: Performed By: #### C UU, ADDONUAPLUS, URDS #### [place] [address] [place] Lymphocytes (Bld) [#/Vol] 3.0 10*3/uL Normal 1.00-4.8 [facility] Comment on above: Performed By: #### C UJODY GalanONSTEFANO, URDS #### [facility] [address] Lymphocytes/100 WBC (Bld) 58.8 % Normal . [facility] Comment on above: Performed By: #### C UJODY GalanONMEDINAPLUS, URDS #### [facility] [address] MCH (RBC) [Entitic mass] 30.0 pg Normal 24.7-34.3 [facility] Comment on above: Performed By: #### C UAngelia ADDONMEDINAPLUS, URDS #### [address] MCV (RBC) [Entitic vol] 89.7 fL Normal 80-100 [facility] Comment on above: Performed By: #### C UU ADDONUAPLUS, URDS #### [facility] [address] [place] [address] Mean Corpuscular HGB Conc 33.4 g/dL Normal 32.0-35.0 [facility] Comment on above: Performed By: #### C UUJODYONUAPLUS, URDS #### [address] Monocytes (Bld) [#/Vol] 0.5 10*3/uL Normal 0.0-0.8 [facility] Comment on above: Performed By: #### C UU, ADDONUAPLUS, URDS #### [facility] [address] [place] [address] [place] Monocytes/100 WBC (Bld) 19.94 % Normal 0.00-20.00 [facility] Comment on above: Performed By: #### C UU, ADDONUAPLUS, URDS #### [facility] [address] [place] [address] [place] Monocytes/100 WBC (Bld) 9.4 % Normal . [facility] Comment on above: Performed By: #### C UU, ADDONUAPLUS, URDS #### [facility] [address] [place] [address] Neutrophils (Bld) [#/Vol] 1.5 10*3/uL Low 1.8-7.7 [facility] Comment on above: Performed By: #### C UU, ADDONUAPLUS, URDS #### [address] Neutrophils/100 WBC (Bld) 28.9 % Normal . [facility] Comment on above: Performed By: #### C UU, ADDONUAPLUS, URDS #### [address] NRBC% 0.1 /100{WBC} Normal 0-0.5 [facility] Comment on above: Performed By: #### C UU, ADDONUAPLUS, URDS #### [facility] [address] [place] [address] Platelet mean volume (Bld) [Entitic vol] 9.2 fL Normal 6.3-10.7 [facility] Comment on above: Performed By: #### C UU, ADDONUAPLUS, URDS #### [address] Platelets (Bld) [#/Vol] 164 10*3/uL Normal 150-450 [facility] Comment on above: Performed By: #### C UU, ADDONUAPLUS, URDS #### [facility] [address] [place] [address] RBC (Bld) [#/Vol] 4.35 10*6/uL Normal 3.60-5.00 [facility] Comment on above: Performed By: #### C UU, ADDONUAPLUS, URDS #### [address] WBC (Bld) [#/Vol] 5.1 10*3/uL Normal 3.8-11.6 [facility] Comment on above: Performed By: #### C HEMAL HERNANDEZ, URDS #### [facility] [address] [place] [address] Comprehensive Metabolic Pane selam 06-08-2023 Albumin [Mass/Vol] 3.6 g/dL Normal 3.5-5.7 [facility] Comment on above: Performed By: #### C UHEAML Galan, URDS #### [address] Albumin/Globulin [Mass ratio] 1.2 {ratio} Normal [facility] Comment on above: Performed By: #### C UHEMAL Galan, URDS #### [address] ALP [Catalytic activity/Vol] 35 U/L Normal 34-104 [facility] Comment on above: Performed By: #### C UHEMAL Galan, URDS #### [address] ALT [Catalytic activity/Vol] 7 U/L Normal 7-52 [facility] Comment on above: Performed By: #### C UHEMAL Galan, URDS #### [address] Anion gap [Moles/Vol] 6.7 mmol/L Normal 6.0-15.0 [facility] Comment on above: Performed By: #### C UUHEMAL, URDS #### [facility] [address] [place] [address] AST [Catalytic activity/Vol] 9 U/L Low 13-39 [facility] Comment on above: Performed By: #### C UHEAML Galan, URDS #### [address] Bilirubin [Mass/Vol] 0.3 mg/dL Normal 0.3-1.0 [facility] Comment on above: Performed By: #### C UUHEMAL, URDS #### [address] [place] [address] [place] Calcium [Mass/Vol] 8.9 mg/dL Normal 8.6-10.3 [facility] Comment on above: Performed By: #### C HEMAL HERNANDEZ, URDS #### [facility] [address] Chloride [Moles/Vol] 106 mmol/L Normal 98-107 [facility] Comment on above: Performed By: #### C HEMAL HERNANDEZ, URDS #### [facility] [address] CO2 [Moles/Vol] 31.1 mmol/L High 21.0-31.0 [facility] Comment on above: Performed By: #### C HEMAL HERNANDEZ, URDS #### [facility] [address] Creatinine [Mass/Vol] 0.66 mg/dL Normal 0.60-1.20 [facility] Comment on above: Performed By: #### C HEMAL HERNANDEZ, URDS #### [facility] [address] [place] [address] Creatinine Clr Calc Pharmacy 104.00 [facility] Comment on above: Result Comment: PERF ORMED BY: [place] [address] PATHOLOGIST MANAGER TALENT DANYELL LIVINGSTON M.D. Performed By: #### C HEMAL HERNANDEZ, URDS #### [facility] [address] [place] [address] [place] GFR/1.73 sq M.predicted MDRD (S/P/Bld) [Vol rate/Area] mL/min/{1.73_m2} [facility] Comment on above: Performed By: #### C UUJODYONMEDINAPLUS, URDS #### [facility] [address] Globulin (S) [Mass/Vol] 2.9 g/dL [facility] Comment on above: Performed By: #### C UU, ADDONUAPLUS, URDS #### [facility] [address] [place] [address] [place] Glucose [Mass/Vol] 90 mg/dL Normal 70-100 [facility] Comment on above: Result Comment: [place] Glucose Reference Range is dependent on time and content of last meal. Glucose of more than 200 mg/dL in a nonstressed, ambulatory subject supports the diagnosis of Diabetes Mellitus. ADA recommended reference range Performed By: #### C UU, ADDONUAPLUS, URDS #### [facility] [address] Potassium [Moles/Vol] 3.8 mmol/L Normal 3.5-5.1 [facility] Comment on above: Performed By: #### C UU, ADDONUAPLUS, URDS #### [facility] [address] [place] [address] [place] Protein [Mass/Vol] 6.5 g/dL Normal 6.4-8.9 [facility] Comment on above: Performed By: #### C UU, ADDONUAPLUS, URDS #### [facility] [address] [place] [address] [place] Sodium [Moles/Vol] 140 mmol/L Normal 136-145 [facility] Comment on above: Performed By: #### C UU, ADDONUAPLUS, URDS #### [facility] [address] [place] [address] [place] Urea nitrogen [Mass/Vol] 17 mg/dL Normal 7-25 [facility] Comment on above: Performed By: #### C UU, ADDONUAPLUS, URDS #### [facility] [address] [place] [id number] [place] Creatinine [Mass/volume] in Serum or PlasmaOrdered By: Luis Armando Hendrix on 06-08-2023 Creatinine [Mass/Vol] 0.66 mg/dL 0.60-1.20 [facility] Dipstick and Microscopicon 0 06-08-2023 Appearance (U) Turbid Critically abnormal Clear [facility] Comment on above: Order Comment: Name Collection Type:: Clean-Voided Midstream Performed By: #### C UU, ADDONUAPLUS, URDS #### [facility] [address] [place] [address] [place] Bacteria,Urine 4+ High None Seen [facility] Comment on above: Order Comment: Name Collection Type:: Clean-Voided Midstream Performed By: #### C UU, ADDONUAPLUS, URDS #### [facility] [address] [place] [address] [place] Bilirubin,Urine Negative Normal Negative [facility] Comment on above: Order Comment: Name Collection Type:: Clean-Voided Midstream Performed By: #### C UU, ADDONUAPLUS, URDS #### [address] Color (U) Yellow Normal Yellow [facility] Comment on above: Order Comment: Name Collection Type:: Clean-Voided Midstream Performed By: #### C UU, ADDONUAPLUS, URDS #### [address] Glucose Ql (U) Normal Normal Normal [facility] Comment on above: Order Comment: Name Collection Type:: Clean-Voided Midstream Performed By: #### C UU, ADDONUAPLUS, URDS #### [address] Hyaline Casts,Urine 0-8 Normal 0-8 [facility] Comment on above: Order Comment: Name Collection Type:: Clean-Voided Midstream Performed By: #### C UU, ADDONUAPLUS, URDS #### [facility] [address] [place] [address] [place] Ketones Ql (U) Negative Normal Negative [facility] Comment on above: Order Comment: Name Collection Type:: Clean-Voided Midstream Performed By: #### C UU, ADDONUAPLUS, URDS #### [facility] [address] [place] [address] Leukocyte esterase Test strip Ql (U) 4+ High Negative [facility] Comment on above: Order Comment: Name Collection Type:: Clean-Voided Midstream Performed By: #### C UU, ADDONUAPLUS, URDS #### [facility] [address] [place] [address] Nitrite,Urine Positive High Negative [facility] Comment on above: Order Comment: Name Collection Type:: Clean-Voided Midstream Performed By: #### C UU, ADDONUAPLUS, URDS #### [address] Occult Blood,Urine Trace High Negative [facility] Comment on above: Order Comment: Name Collection Type:: Clean-Voided Midstream Result Comment: PERF ORMED BY: [place] [address] PATHOLOGIST MANAGER TALENT DANYELL LIVINGSTON M.D. Performed By: #### C UU, ADDONUAPLUS, URDS #### [address] pH (U) 6.0 [pH] Normal 5.0-9.0 [facility] Comment on above: Order Comment: Name Collection Type:: Clean-Voided Midstream Performed By: #### C UU, ADDONUAPLUS, URDS #### [address] Protein,Urine Trace High Negative [facility] Comment on above: Order Comment: Name Collection Type:: Clean-Voided Midstream Performed By: #### C UU, ADDONUAPLUS, URDS #### [facility] [address] [place] [address] RBC,Urine 1-2 Normal 0-4 [facility] Comment on above: Order Comment: Name Collection Type:: Clean-Voided Midstream Performed By: #### C UU, ADDONUAPLUS, URDS #### [address] Specificy [place],Urine 1.018 Normal 1.001-1.030 [facility] Comment on above: Order Comment: Name Collection Type:: Clean-Voided Midstream Performed By: #### C UU, ADDONUAPLUS, URDS #### [facility] [address] [place] [address] Squamous Epithelial Cell,Urine 10-19 High 0-2 [facility] Comment on above: Order Comment: Name Collection Type:: Clean-Voided Midstream Performed By: #### C UU, ADDONUAPLUS, URDS #### [address] Urobilinogen,Urine Normal Normal Normal [facility] Comment on above: Order Comment: Name Collection Type:: Clean-Voided Midstream Performed By: #### C UU, ADDONUAPLUS, URDS #### [address] WBC,Urine Innumerable High 0-4 [facility] Comment on above: Order Comment: Name Collection Type:: Clean-Voided Midstream Performed By: #### C UU, ADDONUAPLUS, URDS #### [address] Yeast,Urine None Seen Normal None Seen [facility] Comment on above: Order Comment: Name Collection Type:: Clean-Voided Midstream Result Comment: PERF ORMED BY: [place] [address] PATHOLOGIST MANAGER TALENT DANYELL LIVINGSTON M.D. Performed By: #### C UU, ADDONUAPLUS, URDS #### [address] Drug Screen,Urineon 06-08-20 23 Amphetamine Screen,Urine Negative Normal Negative [facility] Comment on above: Performed By: #### C UU, ADDONUAPLUS, URDS #### [address] Barbiturate Screen,Urine Negative Normal Negative [facility] Comment on above: Performed By: #### C UU, ADDONUAPLUS, URDS #### [address] Benzodiazepines Screen,Urine Negative Normal Negative [facility] Comment on above: Performed By: #### C UU, ADDONUAPLUS, URDS #### [facility] [address] [place] [address] Cannabinoid Screen,Urine Negative Normal Negative [facility] Comment on above: Result Comment: Thes e are unconfirmed results and should not be used for legal purposes. Drug Cut-Off Concentration: AMPH 1000 ng/mL SARA 200 ng/mL MARTÍNEZ 200 ng/mL COCM 300 ng/mL OP 300 ng/mL PCP 25 ng/mL THC 20 ng/mL PERFORMED BY: [place] [address] PATHOLOGIST MANAGER TALENT DANYELL LIVINGSTON M.D. Performed By: #### C UU, ADDONUAPLUS, URDS #### [address] Cocaine Screen,Urine Negative Normal Negative [facility] Comment on above: Performed By: #### C UU, ADDONUAPLUS, URDS #### [address] Opiate Screen,Urine Negative Normal Negative [facility] Comment on above: Performed By: #### C UU, ADDONUAPLUS, URDS #### [address] Phencyclidine Screen,Urine Negative Normal Negative [facility] Comment on above: Performed By: #### C UU, ADDONUAPLUS, URDS #### [facility] [address] [place] [address] [place] Eosinophils Auto (Bld) [#/Vo l]Ordered By: Luis Armando Hendrix on 06-08-2023 Eosinophils (Bld) [#/Vol] 0.1 10*3/uL 0.0-0.45 [facility] Eosinophils/100 WBC Auto (Bl d)Ordered By: Luis Armando Hendrix on 06-08-2023 Eosinophils/100 WBC (Bld) 2.2 % . [facility] Erythrocyte distribution wid th Auto (RBC) [Ratio]Ordered By: Luis Armando Hendrix on 06-08-2023 Erythrocyte distribution width (RBC) [Ratio] 13.5 % 11.9-15.3 [facility] Ethanol [Mass/volume] in Ser um or PlasmaOrdered By: Luis Armando Hendrix on 06-08-2023 Ethanol [Mass/Vol] mg/dL [facility] Ethanol [Mass/Vol] TNP [facility] Comment on above: Test not performed Ethyl Alcohol Profileon 05-13 Ethanol [Mass/Vol] mg/dL Normal [facility] Comment on above: Performed By: #### L IPID, [id number], TSH3 [id number] #### [facility] [address] Percent Ethanol Not performed Normal [facility] Comment on above: Result Comment: PERF ORMED BY: [place] [address] PATHOLOGIST MANAGER TALENT DANYELL LIVINGSTON M.D. Performed By: #### L IPID, [id number], TSH3 wRFLX #### [facility] [address] [place] [address] Globulin Calc (S) [Mass/Vol] Ordered By: Luis Armando Hendrix on 06-08-2023 Globulin (S) [Mass/Vol] 2.9 g/dL [facility] Glucose [Mass/volume] in Ser um or PlasmaOrdered By: Luis Armando Hendrix on 06-08-2023 Glucose [Mass/Vol] 90 mg/dL 70-100 [facility] Comment on above: ADA recommended refe rence rangeRandom Glucose Reference Range is dependent on time and content of last meal. Glucose of more than 200 mg/dL in a nonstressed, ambulatory subject supports the diagnosis of Diabetes Mellitus. HCG ( test) IA.rapi d Ql (U)Ordered By: Luis Armando Hendrix on 06-08-2023 HCG ( test) Ql (U) Negative [facility] HCG,Urineon 06-08-2023 Beta HCG ( test) Ql (U) Negative Normal [facility] Comment on above: Result Comment: PERF ORMED BY: [place] [address] PATHOLOGIST MANAGER TALENT DANYELL LIVINGSTON M.D. Performed By: #### L IPID, [id number], TSH3 wRFLX #### [facility] [address] Hematocrit Auto (Bld) [Volum e fraction]Ordered By: Luis Armando Hendrix on 06-08-2023 Hematocrit (Bld) [Volume fraction] 39.0 % 34.0-46.4 [facility] Hemoglobin [Mass/volume] in BloodOrdered By: Luis Armando Hendrix on 06-08-2023 Hemoglobin (Bld) [Mass/Vol] 13.0 g/dL 11.8-15.4 [facility] Ketones Auto test strip (U) [Mass/Vol]Ordered By: Luis Armando Hendrix on 06-08-2023 Ketones (U) [Mass/Vol] Negative Negative [facility] - UrinalysisOrder ed By: Luis Armando Hendrix on 06-08-2023 Hyaline casts LM Ql (Urine sed) 0-8 [LPF] 0-8 [facility] Leukocytes [#/volume] correc neema for nucleated erythrocytes in Blood by Automated counOrdered By: Luis Armando Hendrix on 06-08-2023 WBC corrected for nucl RBC Auto (Bld) [#/Vol] 5.1 10*3/uL 3.8-11.6 [facility] Lymphocytes Auto (Bld) [#/Vo l]Ordered By: Luis Armando Hendrix on 06-08-2023 Lymphocytes (Bld) [#/Vol] 3.0 10*3/uL 1.00-4.8 [facility] Lymphocytes/100 WBC Auto (Bl d)Ordered By: Luis Armando Hendrix on 06-08-2023 Lymphocytes/100 WBC (Bld) 58.8 % . [facility] MCH Auto (RBC) [Entitic mass ]Ordered By: Luis Armando Hendrix on 06-08-2023 MCH (RBC) [Entitic mass] 30.0 pg 24.7-34.3 [facility] MCHC Auto (RBC) [Mass/Vol]Or dered By: Luis Armando eHndrix on 06-08-2023 MCHC (RBC) [Mass/Vol] 33.4 g/dL 32.0-35.0 [facility] MCV Auto (RBC) [Entitic vol] Ordered By: Luis Armando Hendrix on 06-08-2023 MCV (RBC) [Entitic vol] 89.7 fL 80-100 [facility] Monocyte distribution width [Entitic volume] in Blood by AutomatedOrdered By: Luis Armando Hendrix on 06-08-2023 Monocyte distribution width Auto (Bld) [Entitic vol] 19.94 % 0.00-20.00 [facility] Monocytes Auto (Bld) [#/Vol] Ordered By: Luis Armando Hendrix on 06-08-2023 Monocytes (Bld) [#/Vol] 0.5 10*3/uL 0.0-0.8 [facility] Monocytes/100 WBC Auto (Bld) Ordered By: Luis Armando Hendrix on 06-08-2023 Monocytes/100 WBC (Bld) 9.4 % . [facility] Neutrophils Auto (Bld) [#/Vo l]Ordered By: Luis Armando Hendrix on 06-08-2023 Neutrophils (Bld) [#/Vol] 1.5 10*3/uL 1.8-7.7 [facility] Neutrophils/100 WBC Auto (Bl d)Ordered By: Luis Armando Hendrix on 06-08-2023 Neutrophils/100 WBC (Bld) 28.9 % . [facility] Nitrite Test strip Ql (U)Ord ered By: Luis Armando Hendrix on 06-08-2023 Nitrite Ql (U) Positive Negative [facility] No Panel InformationOrdered By: Luis Armando Hendrix on 06-08-2023 Estimated GFR (CKD-EPI) > 60.0 mL/Min [facility] Creatinine Clearance (Chem 104.00 [facility] Nucleated erythrocytes [Pres ence] in Blood by Automated countOrdered By: Luis Armando Hendrix on 06-08-2023 Nucleated RBC Auto Ql (Bld) 0.1 /100{WBC} 0-0.5 [facility] Opiates [Presence] in Urine by Screen methodOrdered By: Luis Armando Hendrix on 06-08-2023 Opiates Screen Ql (U) Negative Negative [facility] Phencyclidine Screen Ql (U)O rdered By: Luis Armando Hendrix on 06-08-2023 Phencyclidine Ql (U) Negative Negative [facility] Platelet mean volume Auto (B ld) [Entitic vol]Ordered By: Luis Armando Hendrix on 06-08-2023 Platelet mean volume (Bld) [Entitic vol] 9.2 fL 6.3-10.7 [facility] Platelets Auto (Bld) [#/Vol] Ordered By: Luis Armando Hendrix on 06-08-2023 Platelets (Bld) [#/Vol] 164 10*3/uL 150-450 [facility] Potassium [Moles/volume] in Serum or PlasmaOrdered By: Luis Armando Hendrix on 06-08-2023 Potassium [Moles/Vol] 3.8 mmol/L 3.5-5.1 [facility] Protein Auto test strip (U) [Mass/Vol]Ordered By: Luis Armando Hendrix on 06-08-2023 Protein (U) [Mass/Vol] Trace mg/dL Negative [facility] Protein [Mass/volume] in Ser um or PlasmaOrdered By: Luis Armando Hendrix on 06-08-2023 Protein [Mass/Vol] 6.5 g/dL 6.4-8.9 [facility] RBC Auto (Bld) [#/Vol]Ordere d By: Luis Armando Hendrix on 06-08-2023 RBC (Bld) [#/Vol] 4.35 10*6/uL 3.60-5.00 [facility] Serum or plasma albumin/glob ulin mass ratioOrdered By: Luis Armando Hendrix on 06-08-2023 Albumin/Globulin [Mass ratio] 1.2 {ratio} [facility] Serum or plasma anion gap de terminationOrdered By: Luis Armando Hendrix on 06-08-2023 Anion gap [Moles/Vol] 6.7 mmol/L 6.0-15.0 [facility] Sodium [Moles/volume] in Ser um or PlasmaOrdered By: Luis Armando Hendrix on 06-08-2023 Sodium [Moles/Vol] 140 mmol/L 136-145 [facility] Specific gravity Auto test s trip (U) [Rel density]Ordered By: Luis Armando Hendrix on 06-08-2023 Specific gravity (U) [Rel density] 1.018 1.001-1.030 [facility] Squamous epithelial cells de tection in urine sediment by light microscopyOrdered By: Luis Armando Hendrix on 06-08-2023 Epithelial cells.squamous LM Ql (Urine sed) 10-19 [HPF] 0-2 [facility] Urea nitrogen [Mass/volume] in Serum or PlasmaOrdered By: Luis Armando Hendrix on 06-08-2023 Urea nitrogen [Mass/Vol] 17 mg/dL 05-05 [facility] Urine Cultureon 06-08-2023 Bacteria identified Cx Nom (U) ORGANISM: Escherichia coli (O:ESCCOL) [place] Count >100,000 Aerobic ATUL Charge (NMIC56) ----- SUSCEPTIBILITY ---- ORGANISM: O:ESCCOL ANTIBIOTIC INTERPRETATION ATUL Amikacin S <16 Amoxacillin/K Clavulanate I 1616/8 Ampicillin R >16 Ampicillin/Sulbactam R >16 Aztreonam S <4 Cefazolin S <2 Cefepime S <2 Ceftazidime S <1 Ceftazidime/Avibacta m S <4 Ceftolozane/Tazobact am S <2 Ceftriaxone S <1 Cefuroxime S <4 Ciprofloxacin R >2 Ertapenem S <0.5 Gentamicin S <2 Levofloxacin R >4 Meropenem S <1 Meropenem/Vaborbacta m S <2 Nitrofurantoin S <32 Piperacillin/Tazobac azul S <8 Tetracycline R >8 Tigecycline S <2 Tobramycin S <2 Trimethoprim/Sulfame thoxazole R >2 S = SUSCEPTIBLE I = INTERMEDIATE R = RESISTANT BLANK = DATA NOT AVAILABLE, OR DRUG NOT ADVISABLE OR TESTED R* = RESISTANCE DUE TO EXTENDED SPECTRUM BETA-LACTAMASES ESBL = EXTENDED SPECTRUM BETA-LACTAMASE TFG = THYMIDINE-DEPENDENT STRAIN MILES = BETA-LACTAMASE POSITIVE IB = INDUCIBLE BETA-LACTAMASE. APPEARS IN PLACE OF 'S' WITH SPECIES KNOWN TO POSSESS INDUCIBLE BETA-LACTAMASES. POTENTIALLY THEY MAY BECOME RESISTANT TO ALL B-LACTAM DRUGS. PERFORMED BY: [facility] [address] [place] [address] PATHOLOGIST MANAGER TALENT DANYELL LIVINGSTON M.D. Normal [facility] Comment on above: Performed By: #### C HEMAL HERNANDEZ, URDS #### [facility] [address] Urine bacteria detection by automated methodOrdered By: Luis Armando Hendrix on 06-08-2023 Bacteria Auto Ql (U) 4+ None Seen [facility] Urine clarity by refractomet ry automatedOrdered By: Luis Armando Hendrix on 06-08-2023 Clarity Refractometry automated (U) Turbid Clear [facility] Urine culture routineOrdered By: Luis Armando Hendrix on 06-08-2023 Bacteria identified Cx Nom (U) Escherichia coli [facility] Urine glucose measurement by automated test strip (mass/volume)Ordered By: Luis Armando Hendrix on 06-08-2023 Glucose Auto test strip (U) [Mass/Vol] Normal mg/dL Normal [facility] Urine hemoglobin detection b y automated test stripOrdered By: Luis Armando Hendrix on 06-08-2023 Hemoglobin Auto test strip Ql (U) Trace Negative [facility] Urine leukocyte esterase det ection by automated test stripOrdered By: Luis Armando Hendrix on 06-08-2023 Leukocyte esterase Auto test strip Ql (U) 4+ Negative [facility] Urobilinogen Auto test strip (U) [Mass/Vol]Ordered By: Luis Armando Hendrix on 06-08-2023 Urobilinogen (U) [Mass/Vol] Normal mg/dL Normal [facility] WBC Auto (Bld) [#/Vol]Ordere d By: Luis Armando Hendrix on 06-08-2023 WBC (Bld) [#/Vol] 5.1 10*3/uL 3.8-11.6 [facility] Yeast detection in urine sed iment by light microscopyOrdered By: Luis Armando Hendrix on 06-08-2023 Yeast LM Ql (Urine sed) None seen [HPF] None Seen [facility] pH Auto test strip (U)Ordere d By: Luis Armando Hendrix on 06-08-2023 pH (U) 6.0 [pH] 5.0-9.0 [facility] CNPAshwini 05-14-2023 JULIANN Telephone ([facility]) LORNA DEUTSCH ([id number]) 1985 F LV Date Time Provider Department 05/14/23 ROSA MARKS (REESE) [facility] During your visit today, we recorded the following information about you: Rosa Marks LPN 05/14/2023 5:34 PM Signed Call to patient to advise patient needs to follow-up with psych for medication management of her symptoms. Patient became upset stating that she has been in our parking lot for 3 hours waiting for her appt so that she could get a refill on her Klonopin. Patient insists she ask the provider to refill her medication. Per provider, patient should go to [facility] or [facility] ER, since she is having uncontrolled symptoms. Offered to call the ambulance for patient as she states the driver guard that was with her cannot wait any longer or take her to the ER. Patient refused and hung up the phone. Attempted to call back, no answer. Allergies As of Date: 05/14/2023 (No Known Allergies) Date Reviewed: 04/24/2023 Reviewed by: Mireille Cheatham APRN.WAITER/WAITRESS COCKTAIL [employer]OUNGE - Fully Assessed Reason for Visit: Patient Update [1234] Prescriptions as of 05/14/2023 - clonazePAM (KLONOPIN) 1 mg tablet Take 1 tablet by mouth three times daily as needed for up to 16 days. for insomnia. - gabapentin (NEURONTIN) 800 mg tablet Take 1 tablet by mouth twice daily for 7 days, THEN 1 tablet once daily for 7 days. - pregabalin (LYRICA) 75 mg capsule Take 1 capsule by mouth three times daily for 30 days. - dextroamphetamine-am phetamine (ADDERALL) 10 mg tablet Take 2 tablets by mouth twice daily for 30 days. - methadone (DOLOPHINE) 5 mg tablet Take 10 mg by mouth. - QUEtiapine (SEROQUEL) 200 mg tablet Take 200 mg by mouth. - divalproex ER (DEPAKOTE ER) 500 mg 24 hr tablet Take 500 mg by mouth once daily. Problem List As Of Date 05/14/2023 Noted Resolved Anxiety [F41.9] 11/20/2022 Bipolar depression (HCC) [F31.9] 03/16/2023 Unspecified convulsions (HCC) [R56.9] 07/01/2022 Gastro-esophageal reflux disease without esopha*01/13/2023 Chronic hepatitis C affecting , antepa*09/26/2016 Attention deficit hyperactivity disorder (ADHD)*01/12/2023 ADHD [F90.9] 03/16/2023 03/16/2023 Asthma [J45.909] 03/16/2023 Brachial plexus injury, right [S14.3XXA] 04/08/2015 History of heroin abuse (HCC) [F11.11] 09/26/2016 History of paranoid schizophrenia [Z86.59] 09/26/2016 Paranoid schizophrenia (HCC) [F20.0] 03/16/2023 Encounter Status:Closed by ROSA MARKS on 05/14/23 [facility] CNPN Telephone (FAMELANF) LORNA DEUTSCH ([id number]) 1985 F Date Time Provider Department 05/14/23 MIREILLE CHEATHAM During your visit today, we recorded the following information about you: Mireille Cheatham APRN.JULIAN 05/14/2023 2:24 PM Addendum Please call patient: She missed appointment with psychiatry yesterday. She was to see them for refills - I cannot refill these. She needs to be seen by psychiatry. If she cannot wait til then and anxiety is severe, please bee seen at [facility] for care additionally, they can assist with rehab program. Thanks, Mireille Cheatham APRN.Jayde Franklin 05/14/2023 2:56 PM Signed Called and spoke with patient. She is aware of the message below. She is adamant about still seeing Mireille. She wll not talk to me and states she will talk to Mireille about it during her appointment. Allergies As of Date: 05/14/2023 (No Known Allergies) Date Reviewed: 04/24/2023 Reviewed by: Mireille Cheatham APRN.WAITER/WAITRESS COCKTAIL LOUNGE - Fully Assessed Reason for Visit: Appointment [186] Prescriptions as of 05/22/2023 - clonazePAM (KLONOPIN) 1 mg tablet Take 1 tablet by mouth three times daily as needed for up to 16 days. for insomnia. - gabapentin (NEURONTIN) 800 mg tablet Take 1 tablet by mouth twice daily for 7 days, THEN 1 tablet once daily for 7 days. - pregabalin (LYRICA) 75 mg capsule Take 1 capsule by mouth three times daily for 30 days. - dextroamphetamine-am phetamine (ADDERALL) 10 mg tablet Take 2 tablets by mouth twice daily for 30 days. - methadone (DOLOPHINE) 5 mg tablet Take 10 mg by mouth. - QUEtiapine (SEROQUEL) 200 mg tablet Take 200 mg by mouth. - divalproex ER (DEPAKOTE ER) 500 mg 24 hr tablet Take 500 mg by mouth once daily. Problem List As Of Date 05/14/2023 Noted Resolved Anxiety [F41.9] 11/20/2022 Bipolar depression (HCC) [F31.9] 03/16/2023 Unspecified convulsions (HCC) [R56.9] 07/01/2022 Gastro-esophageal reflux disease without esopha*01/13/2023 Chronic hepatitis C affecting , antepa*09/26/2016 Attention deficit hyperactivity disorder (ADHD)*01/12/2023 ADHD [F90.9] 03/16/2023 03/16/2023 Asthma [J45.909] 03/16/2023 Brachial plexus injury, right [S14.3XXA] 04/08/2015 History of heroin abuse (HCC) [F11.11] 09/26/2016 History of paranoid schizophrenia [Z86.59] 09/26/2016 Paranoid schizophrenia (HCC) [F20.0] 03/16/2023 Encounter Status:Closed by JAYDE HERRERA [facility]/14/23 [facility] ([facility]) LORNA DEUTSCH ([id number]) 1985 F LV Date Time Provider Department 04/24/23 MIREILLE CHEATHAM During your visit today, we recorded the following information about you: Bambi Aden 04/24/2023 9:52 AM Signed Lorna Karan Deutsch is calling Mireille Cheatham APRN.JULIAN today to request Medication. Patient has been identified by name and birthdate. Yes Patient is asking for early refill for clonazepam 1 mg. She stated she had to take 2 tablets 3 times a day due to high anxiety. She is now living alone. Patient has transportation to pharmacy today only. Person calling: self Call patient at: on cell [phone] (cell) Next OV: 05/18/2023 Mireille Thomas APRN.CNP 04/24/2023 10:06 AM Signed Please call patient: I cannot authorize an early refill. She should not be increasing/titration medication on her own. I am proud of her for taking steps to gain independence, however - if her anxiety is this severe I do recommend being seen in the ER(Garett with [facility]) so that we can control her anxiety. Or she should be seen sooner by psychiatry. Additionally, she should speak with her methadone clinic to be certain she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 These are unconfirme d results and should not be used for legal purposes. Drug Cut-Off Concentration: AMPH 1000 ng/mL SARA 200 ng/mL MARTÍNEZ 200 ng/mL COCM 300 ng/mL OP 300 ng/mL PCP 25 ng/mL THC 20 ng/mL Carbon dioxide, total [Moles /volume] in Serum or PlasmaOrdered By: Leonard Salazar on 02-03-2023 CO2 [Moles/Vol] 27.6 mmol/L 21.0-31.0 [facility] Casts typing in urine sedime nt by light microscopyOrdered By: Leonard Salazar on 02-03-2023 Casts LM Nom (Urine sed) None seen [LPF] None Seen [facility] Chloride [Moles/volume] in S maris or PlasmaOrdered By: Leonard Salazar on 02-03-2023 Chloride [Moles/Vol] 104 mmol/L 98-107 [facility] Color Auto (U)Ordered By: Micky Salazar on 02-03-2023 Color (U) Yellow Yellow [facility] Complete Blood Count Auto Di ffon 02-03-2023 Basophils (Bld) [#/Vol] 0.0 10*3/uL Normal 0.0-0.2 [facility] Comment on above: Result Comment: PERF ORMED BY: [facility] [address] [place] [address] PATHOLOGIST MANAGER TALENT DANYELL LIVINGSTON M.D. Performed By: #### C UU, ADDONUAPLUS, URDS #### [facility] [address] Basophils/100 WBC (Bld) 0.4 % Normal . [facility] Comment on above: Performed By: #### C UU, ADDONUAPLUS, URDS #### [address] Eosinophils (Bld) [#/Vol] 0.1 10*3/uL Normal 0.0-0.45 [facility] Comment on above: Performed By: #### C UU, ADDONUAPLUS, URDS #### [address] Eosinophils/100 WBC (Bld) 0.9 % Normal . [facility] Comment on above: Performed By: #### C UU, ADDONUAPLUS, URDS #### [address] Erythrocyte distribution width (RBC) [Ratio] 14.0 % Normal 11.9-15.3 [facility] Comment on above: Performed By: #### C UU, ADDONUAPLUS, URDS #### [address] Hematocrit (Bld) [Volume fraction] 39.9 % Normal 34.0-46.4 [facility] Comment on above: Performed By: #### C UU, ADDONUAPLUS, URDS #### [address] Hemoglobin (Bld) [Mass/Vol] 13.4 g/dL Normal 11.8-15.4 [facility] Comment on above: Performed By: #### C UU, ADDONUAPLUS, URDS #### [address] Lymphocytes (Bld) [#/Vol] 2.8 10*3/uL Normal 1.00-4.8 [facility] Comment on above: Performed By: #### C UU, ADDONUAPLUS, URDS #### [address] Lymphocytes/100 WBC (Bld) 29.7 % Normal . [facility] Comment on above: Performed By: #### C UU, ADDONUAPLUS, URDS #### [facility] [address] [place] [address] MCH (RBC) [Entitic mass] 31.0 pg Normal 24.7-34.3 [facility] Comment on above: Performed By: #### C UJODY GalanONUAPLUS, URDS #### [address] MCV (RBC) [Entitic vol] 92.6 fL Normal 80-100 [facility] Comment on above: Performed By: #### Loco UAngelia ADDONUAPLUS, URDS #### [address] Mean Corpuscular HGB Conc 33.5 g/dL Normal 32.0-35.0 [facility] Comment on above: Performed By: #### C UJODY GalanONUAPLUS, URDS #### [address] Monocytes (Bld) [#/Vol] 0.5 10*3/uL Normal 0.0-0.8 [facility] Comment on above: Performed By: #### Loco UJODY GalanONUATONY, URDS #### [address] Monocytes/100 WBC (Bld) 20.22 % High 0.00-20.00 [facility] Comment on above: Result Comment: For adults in ED, MDW > 20.0 may be associated with a higher risk of sepsis during the first 12 hrs of hospital admission Performed By: #### C UU ADDONUAPLUS, URDS #### [facility] [address] [place] [address] Monocytes/100 WBC (Bld) 5.0 % Normal . [facility] Comment on above: Performed By: #### Loco UUJODYONUAPLUS, URDS #### [facility] [address] [place] [address] Neutrophils (Bld) [#/Vol] 6.1 10*3/uL Normal 1.8-7.7 [facility] Comment on above: Performed By: #### C UU, ADDONUAPLUS, URDS #### [address] Neutrophils/100 WBC (Bld) 64.0 % Normal . [facility] Comment on above: Performed By: #### C UU, ADDONUAPLUS, URDS #### [address] NRBC% 0.1 /100{WBC} Normal 0-0.5 [facility] Comment on above: Performed By: #### C UU, ADDONUAPLUS, URDS #### [address] Platelet mean volume (Bld) [Entitic vol] 8.5 fL Normal 6.3-10.7 [facility] Comment on above: Performed By: #### C UU, ADDONUAPLUS, URDS #### [address] Platelets (Bld) [#/Vol] 252 10*3/uL Normal 150-450 [facility] Comment on above: Performed By: #### C UU, ADDONUAPLUS, URDS #### [address] RBC (Bld) [#/Vol] 4.31 10*6/uL Normal 3.60-5.00 [facility] Comment on above: Performed By: #### C UU, ADDONUAPLUS, URDS #### [address] WBC (Bld) [#/Vol] 9.5 10*3/uL Normal 3.8-11.6 [facility] Comment on above: Performed By: #### C UU, ADDONUAPLUS, URDS #### [address] Comprehensive Metabolic Pane selam 02-03-2023 Albumin [Mass/Vol] 3.8 g/dL Normal 3.5-5.7 [facility] Comment on above: Performed By: #### C UU, ADDONUAPLUS, URDS #### [facility] [address] [place] [address] [place] Albumin/Globulin [Mass ratio] 1.3 {ratio} Normal [facility] Comment on above: Performed By: #### C UU, ADDONUAPLUS, URDS #### [facility] [address] [place] [address] ALP [Catalytic activity/Vol] 34 U/L Normal 34-104 [facility] Comment on above: Performed By: #### C UU, ADDONUAPLUS, URDS #### [facility] [address] [place] [address] ALT [Catalytic activity/Vol] 7 U/L Normal 7-52 [facility] Comment on above: Performed By: #### C UU, ADDONUAPLUS, URDS #### [facility] [address] [place] [address] Anion gap [Moles/Vol] 9.3 mmol/L Normal 6.0-15.0 [facility] Comment on above: Performed By: #### C UU, ADDONUAPLUS, URDS #### [facility] [address] [place] [address] AST [Catalytic activity/Vol] 13 U/L Normal 13-39 [facility] Comment on above: Performed By: #### C UU, ADDONUAPLUS, URDS #### [facility] [address] [place] [address] Bilirubin [Mass/Vol] 0.3 mg/dL Normal 0.3-1.0 [facility] Comment on above: Performed By: #### C UU, ADDONUAPLUS, URDS #### [facility] [address] [place] [address] Calcium [Mass/Vol] 8.4 mg/dL Low 8.6-10.3 [facility] Comment on above: Performed By: #### C UU, ADDONUAPLUS, URDS #### [facility] [address] [place] [address] [place] Chloride [Moles/Vol] 104 mmol/L Normal 98-107 [facility] Comment on above: Performed By: #### C HEMAL HERNANDEZ, URDS #### [address] CO2 [Moles/Vol] 27.6 mmol/L Normal 21.0-31.0 [facility] Comment on above: Performed By: #### C HEMAL HERNANDEZ, URDS #### [address] Creatinine [Mass/Vol] 0.77 mg/dL Normal 0.60-1.20 [facility] Comment on above: Performed By: #### C HEMAL HERNANDEZ, URDS #### [address] Creatinine Clr Calc Pharmacy 89.14 [facility] Comment on above: Result Comment: PERF ORMED BY: [place] [address] PATHOLOGIST MANAGER TALENT DANYELL LIVINGSTON M.D. Performed By: #### C HEMAL HERNANDEZ, URDS #### [address] GFR/1.73 sq M.predicted MDRD (S/P/Bld) [Vol rate/Area] mL/min/{1.73_m2} [facility] Comment on above: Performed By: #### HEMAL AYALA, URDS #### [address] Globulin (S) [Mass/Vol] 3.0 g/dL [facility] Comment on above: Performed By: #### C HEMAL HERNANDEZ, URDS #### [address] Glucose [Mass/Vol] 83 mg/dL Normal 70-100 [facility] Comment on above: Result Comment: [facility] Glucose Reference Range is dependent on time and content of last meal. Glucose of more than 200 mg/dL in a nonstressed, ambulatory subject supports the diagnosis of Diabetes Mellitus. ADA recommended reference range Performed By: #### C UU ADDONUAPLUS, URDS #### [facility] [address] [place] [address] Potassium [Moles/Vol] 3.9 mmol/L Normal 3.5-5.1 [facility] Comment on above: Performed By: #### C UU ADDONMEDINAPLUS, URDS #### [address] Protein [Mass/Vol] 6.8 g/dL Normal 6.4-8.9 [facility] Comment on above: Performed By: #### C UJODY GalanONMEDINAPLUS, URDS #### [address] Sodium [Moles/Vol] 137 mmol/L Normal 136-145 [facility] Comment on above: Performed By: #### C UUJODYONMEDINAPLUS, URDS #### [address] Urea nitrogen [Mass/Vol] 17 mg/dL Normal 7-25 [facility] Comment on above: Performed By: #### C UUJODYONMEDINAPLUS, URDS #### [address] Creatinine [Mass/volume] in Serum or PlasmaOrdered By: Leonard Salazar on 02-03-2023 Creatinine [Mass/Vol] 0.77 mg/dL 0.60-1.20 [facility] Dipstick and Microscopicon 0 02-03-2023 Appearance (U) Cloudy Critically abnormal Clear [facility] Comment on above: Order Comment: Name Collection Type:: Clean-Voided Midstream Performed By: #### C UU ADDONUAPLUS, URDS #### [place] [address] [place] Bacteria,Urine 1+ High None Seen [facility] Comment on above: Order Comment: Name Collection Type:: Clean-Voided Midstream Performed By: #### C UU, ADDONUAPLUS, URDS #### [facility] [address] [place] [address] [place] Bilirubin,Urine Negative Normal Negative [facility] Comment on above: Order Comment: Name Collection Type:: Clean-Voided Midstream Performed By: #### C UU, ADDONUAPLUS, URDS #### [facility] [address] [place] [address] Color (U) Yellow Normal Yellow [facility] Comment on above: Order Comment: Name Collection Type:: Clean-Voided Midstream Performed By: #### C UU, ADDONUAPLUS, URDS #### [facility] [address] [place] [address] Glucose Ql (U) Normal Normal Normal [facility] Comment on above: Order Comment: Name Collection Type:: Clean-Voided Midstream Performed By: #### C UU, ADDONUAPLUS, URDS #### [facility] [address] [place] [address] Hyaline Casts,Urine None Seen Normal 0-1 [facility] Comment on above: Order Comment: Name Collection Type:: Clean-Voided Midstream Performed By: #### C UU, ADDONUAPLUS, URDS #### [facility] [address] [place] [address] Ketones Ql (U) Trace High Negative [facility] Comment on above: Order Comment: Name Collection Type:: Clean-Voided Midstream Performed By: #### C UU, ADDONUAPLUS, URDS #### [facility] [address] [place] [address] Leukocyte esterase Test strip Ql (U) 1+ High Negative [facility] Comment on above: Order Comment: Name Collection Type:: Clean-Voided Midstream Performed By: #### C UU, ADDONUAPLUS, URDS #### [facility] [address] [place] [address] Nitrite,Urine Negative Normal Negative [facility] Comment on above: Order Comment: Name Collection Type:: Clean-Voided Midstream Performed By: #### C UU, ADDONUAPLUS, URDS #### [facility] [address] [place] [address] Occult Blood,Urine Negative Normal Negative [facility] Comment on above: Order Comment: Name Collection Type:: Clean-Voided Midstream Performed By: #### C UU, ADDONUAPLUS, URDS #### [address] Other Casts,Urine None Seen Normal None Seen [facility] Comment on above: Order Comment: Name Collection Type:: Clean-Voided Midstream Performed By: #### C UU, ADDONUAPLUS, URDS #### [address] pH (U) 7.5 [pH] Normal 5.0-9.0 [facility] Comment on above: Order Comment: Name Collection Type:: Clean-Voided Midstream Performed By: #### C UU, ADDONUAPLUS, URDS #### [address] Protein,Urine Negative Normal Negative [facility] Comment on above: Order Comment: Name Collection Type:: Clean-Voided Midstream Performed By: #### C UU, ADDONUAPLUS, URDS #### [address] RBC,Urine 1-2 Normal 0-4 [facility] Comment on above: Order Comment: Name Collection Type:: Clean-Voided Midstream Performed By: #### C UU, ADDONUAPLUS, URDS #### [address] Specificy [place],Urine 1.025 Normal 1.001-1.030 [facility] Comment on above: Order Comment: Name Collection Type:: Clean-Voided Midstream Performed By: #### C UU, ADDONUAPLUS, URDS #### [address] Squamous Epithelial Cell,Urine 20-30 High 0-2 [facility] Comment on above: Order Comment: Name Collection Type:: Clean-Voided Midstream Performed By: #### C UU, ADDONUAPLUS, URDS #### [facility] [address] [place] [address] Urobilinogen,Urine Normal Normal Normal [facility] Comment on above: Order Comment: Name Collection Type:: Clean-Voided Midstream Performed By: #### C UU, ADDONUAPLUS, URDS #### [place] [address] [place] WBC,Urine 5-9 High 0-4 [facility] Comment on above: Order Comment: Name Collection Type:: Clean-Voided Midstream Performed By: #### C UU, ADDONUAPLUS, URDS #### [address] Drug Screen,Urineon 02-04-20 Amphetamine Screen,Urine Positive High Negative [facility] Comment on above: Performed By: #### C UU, ADDONUAPLUS, URDS #### [address] Barbiturate Screen,Urine Negative Normal Negative [facility] Comment on above: Performed By: #### C UU, ADDONUAPLUS, URDS #### [address] Benzodiazepines Screen,Urine Negative Normal Negative [facility] Comment on above: Performed By: #### C UU, ADDONUAPLUS, URDS #### [address] Cannabinoid Screen,Urine Negative Normal Negative [facility] Comment on above: Result Comment: Thes e are unconfirmed results and should not be used for legal purposes. Drug Cut-Off Concentration: AMPH 1000 ng/mL SARA 200 ng/mL MARTÍNEZ 200 ng/mL COCM 300 ng/mL OP 300 ng/mL PCP 25 ng/mL THC 20 ng/mL PERFORMED BY: [place] [address] PATHOLOGIST MANAGER TALENT DANYELL LIVINGSTON M.D. Performed By: #### C UU, ADDONUAPLUS, URDS #### [place] [address] Cocaine Screen,Urine Negative Normal Negative [facility] Comment on above: Performed By: #### C UU, ADDONUAPLUS, URDS #### [facility] [address] Opiate Screen,Urine Negative Normal Negative [facility] Comment on above: Performed By: #### C UU, ADDONUAPLUS, URDS #### [facility] [address] Phencyclidine Screen,Urine Negative Normal Negative [facility] Comment on above: Performed By: #### C UU, ADDONUAPLUS, URDS #### [facility] [address] [place] [address] Eosinophils Auto (Bld) [#/Vo l]Ordered By: Leonard Salazar on 02-03-2023 Eosinophils (Bld) [#/Vol] 0.1 10*3/uL 0.0-0.45 [facility] Eosinophils/100 WBC Auto (Bl d)Ordered By: Leonard Salazar on 02-03-2023 Eosinophils/100 WBC (Bld) 0.9 % . [facility] Erythrocyte distribution wid th Auto (RBC) [Ratio]Ordered By: Leonard Salazar on 02-03-2023 Erythrocyte distribution width (RBC) [Ratio] 14.0 % 11.9-15.3 [facility] Ethanol [Mass/volume] in Ser um or PlasmaOrdered By: Leonard Salazar on 02-03-2023 Ethanol [Mass/Vol] mg/dL [facility] Ethanol [Mass/Vol] TNP [facility] Comment on above: Test not performed Ethyl Alcohol Profileon 01-11 Ethanol [Mass/Vol] mg/dL Normal [facility] Comment on above: Performed By: #### C UU, ADDONUAPLUS, URDS #### [facility] [address] [place] [address] Percent Ethanol Not performed Normal [facility] Comment on above: Result Comment: PERF ORMED BY: [facility] [address] [place] [address] PATHOLOGIST MANAGER TALENT DANYELL LIVINGSTON M.D. Performed By: #### C HEMAL HERNANDEZ URDS #### [facility] [address] [place], [place] [id number] [facility] Globulin Calc (S) [Mass/Vol] Ordered By: Leonard Salazar on 02-03-2023 Globulin (S) [Mass/Vol] 3.0 g/dL [facility] Glucose [Mass/volume] in Ser um or PlasmaOrdered By: Leonard Salazar on 02-03-2023 Glucose [Mass/Vol] 83 mg/dL 70-100 [facility] Comment on above: ADA recommended refe rence rangeRandom Glucose Reference Range is dependent on time and content of last meal. Glucose of more than 200 mg/dL in a nonstressed, ambulatory subject supports the diagnosis of Diabetes Mellitus. HCG ( test) IA.rapi d Ql (U)Ordered By: Leonard Salazar on 02-03-2023 HCG ( test) Ql (U) Negative [facility] HCG,Urineon 02-03-2023 Beta HCG ( test) Ql (U) Negative Normal [facility] Comment on above: Order Comment: Name Collection Type:: Clean-Voided Midstream Result Comment: PERF ORMED BY: [place] [address] PATHOLOGIST MANAGER TALENT DANYELL LIVINGSTON M.D. Performed By: #### C HEMAL HERNANDEZ URDS #### [facility] [address] [place], [place] [id number] [facility] Hematocrit Auto (Bld) [Volum e fraction]Ordered By: Leonard Salazar on 02-03-2023 Hematocrit (Bld) [Volume fraction] 39.9 % 34.0-46.4 [facility] Hemoglobin [Mass/volume] in BloodOrdered By: Leonard Salazar on 02-03-2023 Hemoglobin (Bld) [Mass/Vol] 13.4 g/dL 11.8-15.4 [facility] Ketones Auto test strip (U) [Mass/Vol]Ordered By: Leonard Salazar on 02-03-2023 Ketones (U) [Mass/Vol] Trace Negative [facility] Leukocytes [#/volume] correc neema for nucleated erythrocytes in Blood by Automated counOrdered By: Leonard Salazar on 02-03-2023 WBC corrected for nucl RBC Auto (Bld) [#/Vol] 9.5 10*3/uL 3.8-11.6 [facility] Lymphocytes Auto (Bld) [#/Vo l]Ordered By: Leonard Salazar on 02-03-2023 Lymphocytes (Bld) [#/Vol] 2.8 10*3/uL 1.00-4.8 [facility] Lymphocytes/100 WBC Auto (Bl d)Ordered By: Leonard Salazar on 02-03-2023 Lymphocytes/100 WBC (Bld) 29.7 % . [facility] MCH Auto (RBC) [Entitic mass ]Ordered By: Leonard Salazar on 02-03-2023 MCH (RBC) [Entitic mass] 31.0 pg 24.7-34.3 [facility] MCHC Auto (RBC) [Mass/Vol]Or dered By: Leonard Salazar on 02-03-2023 MCHC (RBC) [Mass/Vol] 33.5 g/dL 32.0-35.0 [facility] MCV Auto (RBC) [Entitic vol] Ordered By: Leonard Salazar on 02-03-2023 MCV (RBC) [Entitic vol] 92.6 fL 80-100 [facility] Monocyte distribution width [Entitic volume] in Blood by AutomatedOrdered By: Leonard Salazar on 02-03-2023 Monocyte distribution width Auto (Bld) [Entitic vol] 20.22 % 0.00-20.00 [facility] Comment on above: For adults in ED, MD W > 20.0 may be associated with a higher risk of sepsis during the first 12 hrs of hospital admission Monocytes Auto (Bld) [#/Vol] Ordered By: Leonard Salazar on 02-03-2023 Monocytes (Bld) [#/Vol] 0.5 10*3/uL 0.0-0.8 [facility] Monocytes/100 WBC Auto (Bld) Ordered By: Leonard Salazar on 02-03-2023 Monocytes/100 WBC (Bld) 5.0 % . [facility] Neutrophils Auto (Bld) [#/Vo l]Ordered By: Leonard Salazar on 02-03-2023 Neutrophils (Bld) [#/Vol] 6.1 10*3/uL 1.8-7.7 [facility] Neutrophils/100 WBC Auto (Bl d)Ordered By: Leonard Salazar on 02-03-2023 Neutrophils/100 WBC (Bld) 64.0 % . [facility] Nitrite Test strip Ql (U)Ord ered By: Leonard Salazar on 02-03-2023 Nitrite Ql (U) Negative Negative [facility] No Panel InformationOrdered By: Leonard Salazar on 02-03-2023 Estimated GFR (CKD-EPI) > 60.0 mL/Min [facility] Creatinine Clearance (Chem 89.14 [facility] Nucleated erythrocytes [Pres ence] in Blood by Automated countOrdered By: Leonard Salazar on 02-03-2023 Nucleated RBC Auto Ql (Bld) 0.1 /100{WBC} 0-0.5 [facility] Opiates [Presence] in Urine by Screen methodOrdered By: Leonard Salazar on 02-03-2023 Opiates Screen Ql (U) Negative Negative [facility] Phencyclidine Screen Ql (U)O rdered By: Leonard Salazar on 02-03-2023 Phencyclidine Ql (U) Negative Negative [facility] Platelet mean volume Auto (B ld) [Entitic vol]Ordered By: Leonard Salazar on 02-03-2023 Platelet mean volume (Bld) [Entitic vol] 8.5 fL 6.3-10.7 [facility] Platelets Auto (Bld) [#/Vol] Ordered By: Leonard Salazar on 02-03-2023 Platelets (Bld) [#/Vol] 252 10*3/uL 150-450 [facility] Potassium [Moles/volume] in Serum or PlasmaOrdered By: Leonard Salazar on 02-03-2023 Potassium [Moles/Vol] 3.9 mmol/L 3.5-5.1 [facility] Protein Auto test strip (U) [Mass/Vol]Ordered By: Leonard Salazar on 02-03-2023 Protein (U) [Mass/Vol] Negative Negative [facility] Protein [Mass/volume] in Ser um or PlasmaOrdered By: Leonard Salazar on 02-03-2023 Protein [Mass/Vol] 6.8 g/dL 6.4-8.9 [facility] RBC Auto (Bld) [#/Vol]Ordere d By: Leonard Salazar on 02-03-2023 RBC (Bld) [#/Vol] 4.31 10*6/uL 3.60-5.00 [facility] Serum or plasma albumin/glob ulin mass ratioOrdered By: Leonard Salazar on 02-03-2023 Albumin/Globulin [Mass ratio] 1.3 {ratio} [facility] Serum or plasma anion gap de terminationOrdered By: Leonard Salazar on 02-03-2023 Anion gap [Moles/Vol] 9.3 mmol/L 6.0-15.0 [facility] Sodium [Moles/volume] in Ser um or PlasmaOrdered By: Leonard Salazar on 02-03-2023 Sodium [Moles/Vol] 137 mmol/L 136-145 [facility] Specific gravity Auto test s trip (U) [Rel density]Ordered By: Leonard Salazar on 02-03-2023 Specific gravity (U) [Rel density] 1.025 1.001-1.030 [facility] Squamous epithelial cells de tection in urine sediment by light microscopyOrdered By: Leonard Salazar on 02-03-2023 Epithelial cells.squamous LM Ql (Urine sed) 20-30 [HPF] 0-2 [facility] Urea nitrogen [Mass/volume] in Serum or PlasmaOrdered By: Leonard Salazar on 02-03-2023 Urea nitrogen [Mass/Vol] 17 mg/dL 7-25 [facility] Urine Cultureon 02-03-2023 Bacteria identified Cx Nom (U) 20,000 colonies/ml mixed bacterial skin contaminants 2 Days PERFORMED BY: [facility] [address] [place] [address] PATHOLOGIST MANAGER TALENT DANYELL LIVINGSTON M.D. Normal [facility] Comment on above: Performed By: #### C UU, HEMAL, URDS #### [facility] [address] [place] [address] [facility] Urine bacteria detection by automated methodOrdered By: Leonard Salazar on 02-03-2023 Bacteria Auto Ql (U) 1+ None Seen [facility] Urine clarity by refractomet ry automatedOrdered By: Leonard Salazar on 02-03-2023 Clarity Refractometry automated (U) Cloudy Clear [facility] Urine culture routineOrdered By: Leonard Salazar on 02-03-2023 Bacteria identified Cx Nom (U) 2 Days [facility] Urine glucose measurement by automated test strip (mass/volume)Ordered By: Leonard Salazar on 02-03-2023 Glucose Auto test strip (U) [Mass/Vol] Normal mg/dL Normal [facility] Urine hemoglobin detection b y automated test stripOrdered By: Leonard Salazar on 02-03-2023 Hemoglobin Auto test strip Ql (U) Negative Negative [facility] Urine leukocyte esterase det ection by automated test stripOrdered By: Leonard Salazar on 02-03-2023 Leukocyte esterase Auto test strip Ql (U) 1+ Negative [facility] Urobilinogen Auto test strip (U) [Mass/Vol]Ordered By: Leonard Salazar on 02-03-2023 Urobilinogen (U) [Mass/Vol] Normal mg/dL Normal [facility] WBC Auto (Bld) [#/Vol]Ordere d By: Leonard Salazar on 02-03-2023 WBC (Bld) [#/Vol] 9.5 10*3/uL 3.8-11.6 [facility] pH Auto test strip (U)Ordere d By: Leonard Salazar on 02-03-2023 pH (U) 7.5 [pH] 5.0-9.0 [facility] ED Note-Physicianon 01-28-20 ED Note-Physician [id number] #1.00CD:127 Normal [facility] Cholesterol [Mass/volume] in Serum or PlasmaOrdered By: Bobo Shields on 01-15-2023 Cholesterol [Mass/Vol] 220 mg/dL 140-200 [facility] Comment on above: Chol less than 200 m g/dl low riskChol 201-239 mg/dl borderline riskChol 240 mg/dl and greater high risk Cholesterol in LDL Calc [Mas s/Vol]Ordered By: Bobo Shields on 01-15-2023 Cholesterol in LDL [Mass/Vol] 150 mg/dL 0-100 [facility] Comment on above: LDL ATP III CLASSIFI CATIONLDL less than 100 mg/dL OptimalLDL 100-129 mg/dL Near or above optimalLDL 130-159 mg/dL Borderline highLDL 160-189 mg/dL HighLDL greater than 189 mg/dL Very high Cholesterol in VLDL Calc [Ma ss/Vol]Ordered By: Bobo Shields on 01-15-2023 Cholesterol in VLDL [Mass/Vol] 23 mg/dL [facility] Lipid Panelon 01-15-2023 Cholesterol [Mass/Vol] 220 mg/dL High 140-200 [facility] Comment on above: Result Comment: Chol less than 200 mg/dl low risk Chol 201-239 mg/dl borderline risk Chol 240 mg/dl and greater high risk Performed By: #### L IPID, [id number], TSH3 wRFLX #### [facility] [address] [place] [address] [place] Cholesterol in HDL [Mass/Vol] 46 mg/dL Normal 35-85 [facility] Comment on above: Result Comment: HDL CHOL ATP-III CLASSIFICATION Cardiovascular Risk HDL > or equal to 60 mg/dL LOW HDL < 40 mg/dL HIGH Performed By: #### L IPID, [id number], TSH3 wRFLX #### [facility] [address] [place] [address] [place] Cholesterol.total/Chol esterol in HDL [Mass ratio] 4.8 {ratio} Normal <5.0 [facility] Comment on above: Performed By: #### L IPID, [id number], TSH3 wRFLX #### [facility] [address] [place] [address] [place] LDL Cholesterol,Calculated 150 mg/dL High 0-100 [facility] Comment on above: Result Comment: LDL ATP III CLASSIFICATION LDL less than 100 mg/dL Optimal LDL 100-129 mg/dL Near or above optimal LDL 130-159 mg/dL Borderline high LDL 160-189 mg/dL High LDL greater than 189 mg/dL Very high Performed By: #### L IPID, [id number], TSH3 wRFLX #### [facility] [address] Triglyceride w/Reflex 119 mg/dL Normal 0-149 [facility] Comment on above: Result Comment: TRIG ATP III CLASSIFICATION TRIG less than 150 mg/dL Normal TRIG 150-199 mg/dL Borderline high TRIG 200-500 mg/dL High TRIG greater than 500 mg/dL Very high Standard traceable to the Center for Disease Conrtrol and Prevention (CDC) test method. Performed By: #### L IPID, [id number], TSH3 wRFLX #### [facility] [address] VLDL CHOLESTEROL 23 mg/dL Normal [facility] Comment on above: Performed By: #### L IPID, [id number], TSH3 wRFLX #### [facility] [address] Serum or plasma high density lipoprotein (HDL) cholesterol measurementOrdered By: Bobo Shields on 01-15-2023 Cholesterol in HDL [Mass/Vol] 46 mg/dL 35-85 [facility] Comment on above: HDL CHOL ATP-III CLA SSIFICATION Cardiovascular RiskHDL > or equal to 60 mg/dL LOWHDL < 40 mg/dL HIGH Serum or plasma total choles terol/high density lipoprotein (HDL) cholesterol mass ratOrdered By: Bobo Shields on 01-15-2023 Cholesterol.total/Chol esterol in HDL [Mass ratio] 4.8 {ratio} <5.0 [facility] Thyroid Stim Hormone w/Rflxo n 01-15-2023 Thyroid Stim Hormone w/Rflx 1.74 u[iU]/mL Normal 0.45-5.33 [facility] Comment on above: Performed By: #### L IPID, [id number], TSH3 wRFLX #### [facility] [address] Thyrotropin [Units/volume] i n Serum or PlasmaOrdered By: Bobo Shields on 01-15-2023 TSH Qn 1.74 m[IU]/L 0.45-5.33 [facility] Triglyceride [Mass/volume] i n Serum or PlasmaOrdered By: Bobo Shields on 01-15-2023 Triglyceride [Mass/Vol] 119 mg/dL 0-149 [facility] Comment on above: TRIG ATP III CLASSIF ICATIONTRIG less than 150 mg/dL NormalTRIG 150-199 mg/dL Borderline highTRIG 200-500 mg/dL High TRIG greater than 500 mg/dL Very highStandard traceable to the Center for Disease Conrtrol and Prevention (CDC) test method. Vitamin D 25 Hydroxy Totalon 01-15-2023 Vitamin D 25 Hydroxy Total 15.0 ng/mL Low 30-100 [facility] Comment on above: Result Comment: KAVON MIN D STATUS 25([place])VITAMIN D RANGE (ng/mL) Deficient <20 Insufficient 20 to <30 Sufficient 30 to 100 Reference: Stephanie Guardado, Ro CORONEL, et al. Evaluation,treatment, and prevention of vitamin D deficiency; an Endocrine Society clinical practice guideline. JCEM. 2010; 96(7):1911-30. PERFORMED BY: [place] [address] PATHOLOGIST MANAGER TALENT DANYELL LIVINGSTON M.D. Performed By: #### L IPID, [id number], TSH3 wRFLX #### [address] Vitamin D+Metabolites [Mass/ volume] in Serum or PlasmaOrdered By: Bobo Shields on 01-15-2023 Vitamin D+Metabolites [Mass/Vol] 15.0 ng/mL 30-100 [facility] Comment on above: VITAMIN D STATUS 25( [place])VITAMIN D RANGE (ng/mL) Deficient <20 Insufficient 20 to <30Sufficient 30 to 100Reference: Stephanie Guardado, Ro CORONEL, et al. Evaluation,treatment, and prevention of vitamin D deficiency; an Endocrine Society clinical practice guideline. JCEM. 2010; 96(7):1911-30. CULTURE URINEon 01-14-2023 CULTURE URINE Isolate 1 Escherichia coli >100,000 cfu/mL of ORGANISM 1 Escherichia coli ANTIBIOTIC M.I.C RX STATUS Ampicillin >=32 R F Ampicillin/Sulbactam 16 I F Piperacillin/Tazobac azul <=4 S F Cefazolin <=4 S F Ceftazidime <=1 S F Ceftriaxone <=1 S F Ertapenem <=0.5 S F Imipenem <=0.25 S F Amikacin <=2 S F Gentamicin <=1 S F Tobramycin <=1 S F Ciprofloxacin >=4 R F Levofloxacin >=8 R F Nitrofurantoin <=16 S F Trimethoprim/Sulfame thoxazole >=320 R F Normal [facility] Comment on above: Performed By: #### P REG #### [facility] [address] [place] [address] Dr. Efren Parra Coding Summary.on 01-14-2023 Coding Summary. CD:[id number] Ww+PGhlYWQ+QC6WCDVuA 31ovZGjgD3yR3QTYDxBQ ywgQVBQTElOSyIgbmFtZ M0buXQhGWGl IC8+JU4qWQEgKojvcFBi x5A3hNI1B90pae2hFLiv xNY9ZOWbAnXbedain1et yZb9LKwrSycmNrOf VFVqiP04RRT8oE92Td45 eBTfsIVce2ukvCv9UkNd TAFzKJJ9xZssPMsol9Bo KCNsY40ewWWel5C4 IGNvbGxhcHNlOyBlbXB0 aV8fADxpdfvcu1vrtkyy Bzx9tp30zOViv5S5qCT3 Q7UafkW4KASyaGFf ObpgkGRCmA5pmdnjb4bh vjwlVeKlBBAhEGu2IDf6 FEXqpSczSgWvER72GEQ6 MDWlhmZqV3MsWFOp jJctSgM4k6C0Mc3KM3RN UpuaM3CLUWJSHDxfkAR+ ZN09ny66Q1VoWmvoQww2 SCMvIPQ6vXW3cM6q AINwBEuif4G5tNE8I7Wr gnGinn8ca4lrEQOeKFti J92lxUEgu7Y7SAWfeFW8 KBLzeEiiUrBdfV22 Oyc+WVZttTjzv1ErSkjm l1smb5kkbQs7YupiHEAl gtPcfQvnIET8o2MjJr3t TBNuyLX8eQX2zS3i JbYzJdU2TJzwV419NeDb gGCmScguT01hL0EtfMZ+ BFAnMdj4VQVwtLsuUF9r K3MfRLClehcboDQv bOkbKR1oDHWupyjmHRNo fL1eEAPoF7m0AqKjUhB2 WLmsV2FdAEAzdzioJw18 oD6qIgUyKrQ4JEyh H7XvgnF3BJVmiRLvIDqv QEB3L65fy2Z2GRKaDGVy OFX7nEW0vX7vnJjqfipf bGVmdDsgdmVydGlj RYjeFZhuI108OTMrfEkl PkNvZGluZyBEYXRlOiAg MDQvMDUvMjAyMzwvdGQ+ BCBcMXX6hKyvTUFz tRUlCNqqDz9dwRbcyXpu NC4qYQMsantcHQAwiV1m HTVtwXGsqZsoLP3sFAAf ialov186TpTnEZW5 PPVpiVQjL4EhaH5vAiPh SZQvYNPyD3TxdPThRXcg P261XQhoIqZ6YNPlpkWc L1JbVMTpnIgtBwU8 a0R8Qo8Zi0JeomwhA3Ew zCCaIoNjCbxlBBd3Q5Kl PjwvdHI+QW95AWMnVK22 RZl2DXW7oDzjBOuq WNXsL3HfnD8iDdZiCZIo ZGRkOyc+PHRhYmxlIHdp ZHRoPScxMDAlJyBzdHls QI1sHk9cUZSrAFFy rJmpzOCnRbVoe9wmQDHo UAxzAS4sfZvyU2OhqCH0 WOEmv8l2An00I14gO0Iw dXA+ZMInbBM0uAC3 yC4yHyKaDsP2ZRmxX778 YiAvzRGfCjcju4nnk7py vQs0WhO8JPWnrhKakVmk SMO0c2XtYs82B66j IHdpZHRoPSIxNSUiIHZh fSslhf3ovO9kUy1+PGNv cXN2qFV8qL1iDtEfTiX9 JAarS128RiDuzEVx Wzsnb5hlo4liuOw4DaBg BIXdknGhmSddABJ3w1Qz Ej60L2TovDvjr5ZiJwp8 qr58iVNiy9D4bQQ9 B2RgOGLhvjajmRFdoVfo JB8kKKFycmdvJPRnyD2w LWSgA2t8DxDxNtW2FEhm B0BobhB4KABixZAj VPGwmQOHpL0exepwy6ep wmtdUaLxUVYuCNe5ZBn1 BSElhUpzYaKlRJC7HqW2 WDO2mWYfaC8wgIik aiafyM3mHsy+CYD9gVAv pKQREB0eFzuldYG+PHRk RWL5tKpaDLxqOYSxvE3k HTXsW5i9UsWgHvT4 HGzuK2KacrG8GYJsfAJk TRNljPLZtQ6qsvnro1ln iummAkNnEUHhAIk4NKj7 LWFsaWduOiBsZWZ0 QtV9EDU6gTJkrZ8hqNnf bexuyK9xRbj+QmlydGgg EHO4TFz2H1JsOof6ONJe gVmoXK4zxNOaBNhb Hl9hlSumrQruVX5xVQQw ahupg621DsVjz4fxVUMg pNXrLVdaRCN3R69el7E0 HSXbKVQpXYO6yRD6 vS6rjVgiaqhnsOPhaBib stBzcSueFPzhGLmsG726 MGNsfJijHhBwSVz9W5Mx Jyr0YEJytJqjVT4f rNLlCXouUm9qwEbpiOpq BX3dDYIoldush190KoNb w6qwDIDavDIkASehDTK2 C97md6U7YKTxMWVv IPO0qNR0vZ9rtXrkfuuh bGVmdDsgdmVydGljYWwt IMnhD688QWOqoAgiHrAy rYj2V9EmCkq8IMDb eKicZO3gdHTnRVgeBw6b wDhncRjuRN5bQGWjiqxk i344MvWzr4ziFVHjoTEf CFmsAYD2D45qi7E0 AYMoVJQeZED3wTF9dX1j bGlnbjogbGVmdDsgdmVy sVuaFBohDSchJ434DMFm cDsnPlBhdGllbnQg YHgcSVz9U8TkImxtgIL+ HJ37ZQLxHO01sZWlvNBs d2vagOb3YwGlZLGcYOW6 pPieGKmde6ObWROf O82gtFZvu8P1WJPnzDel mPAeXzIldCR0cW4xBSyt ednqo2sxrgkoKzppn7mi vo22vP27V78jYLri ZHRoPSIzMCUiIHZhbGln kk3laK3rGz6+PGNvbCB3 tHR1mJ7zWMMyQeL6JJgj G121PnJynTEfTujl g1ayo9chhSu2WuB2DAFj emDiwAfnRCA0a6MrNx45 E73wNEwgDYZkKCUpKUTc QYNuzFwkix4laI4a Ii8+OMFvpEW6uUT0vV3q EtLfPtK6NQgmO734SqSp tXPfKcehK06vA0KjmPA+ UEEdPdq3OFYqfTpi PB6zkUEwIHroWw4aBDA3 EvBhXjTxBGvjI3WnJACp ieieiwbofTZ4CVIvOFNg sU41Gu8sbBrcKSOh wPXLpS1reknsf0aahkwp UqYeIUCvCKe8XFv2LGIe bGexBfTlJXR5AxA3XJF8 mAAicM7thUyeoiqc gP8fV1StXBLnmzfdOc10 hH5aSjEdNbP1JDdtAut+ Ra6PLWKXFLCDMMTKIMMK XD84CC90hVJzp5A8 mYQ3M7OwDNNruxevtfya zRO6IDSnETTspI64gDZh YUjgWy1us6N2o391JXXy KAOkdH06Gm4dzCxs HYZgyXXElY2ofjdyc6gz liozXhRfYCGlGQx0OAp1 TPWieZnmOoQpZGY0NeP4 RZL0sVYtsV1vjMdx zfrsiJ6mEmk+MDMvMzEv WQh7LKtriOR+PHRkIHN0 wTmrGUytUGCavD4xWOAg M6y1IsFhKiG6FBsw X7PoUVMqnxuiOk64eI6l XrErMkO6KRnhU0ExtkS6 ZXUbwDOiUJazMHO1V56n p0N1PQIuRRJbXSJ2 yPR3wG8jtFbpjfetqTSj dDsgdmVydGljYWwtYWxp O541TWOwbNpmNcT0UStt LPQnLY25KC22fISr w8C7vQE3M5RkKZCuqwum enqxvZZ1FJJwDHXffX31 mLYdWWwrHr4ci1P5l350 YYWvRSGnmV19Xp8o qCvuDMRufZMKgL2nblix z9keayzwIcMuKDSmOBb7 XXa4WERkvOmeKrYoKJW5 EuH3THR6qVOmfR8v kBmgvyhnkY5yUdy+RmVt SEeiLX58GW51iFNzn0M0 eNO1M6RvDRJerxugndxg sNF0TNRzKKKuoO40 lNIgOOqaGr8df2F7k144 BIEfBGLfpZ10Yz7lzWrs AYBahCROlZ2rvexsu3pq cjogIzAwMDAwMDt0 GZe5VOPgcQhjOyUzFPY4 CaL3GZB8zDCevM9wzDsk huscqZ0hFtg+WA6zbvdy peC8BO48CG79E9Hp PjwvdGFibGU+PHRhYmxl IHdpZHRoPScxMDAlJyBz gFuxIF8xQq0mXTIcOVWc dIldvGOnWwWmu8de WSRsRZixCM2skTiiM8Cg wST5QCTiy9c4Eb94U09n J8RguNJ+IIFzqHB0qRD1 gS4iScEiIlM1TQuv R284PvIhaPUdTtkhi5je q8rfpDe7UgKsKNYojjKw uYrfFJI2m5KgMp00T93y IHdpZHRoPSIyMCUi GIIjvUwmuc7xqS8uMa2+ IGBszXV7cBM3gU1aSlMq ThH1OJoyG207FwLicOXr XadpG56vB4FfdTG+ JEPgOmp2RBAtoRwaOQ7f nFTzBTnxUm3mACY2BuXu PaNnWCweR9IrODGohqpc vcovzBZ8ZVYqLXKk uL74Tv4tjHibTz2uOQKp VGL1EZHofLDuN6JqwI4b UqUgOXAxPUIgG2DcjDFv AWlfM566YJqqUrQ5 FNVxhvKiA7IgDXPxlDdt FiH3h3N4Ws7XlMgdqWDm ZK2mSeZiOTk8O4OaAyk5 ABAhkQzoYS8bzETq FUegTf0zpLjieQgcQA7z HKLlkvwec939VcYpr1hz XGKhrIUpMRhmVXQ9Q55y o2J5CWObOOAxNWH8 tJC5iJ3czVikaiufeFVh dDsgdmVydGljYWwtYWxp E891MONufFjkNfVBOgl0 V8CmPyy6JSCpzLzn IN5jfJBfWBrnHz5awYjf sTruII5aOSEhvjmvo396 VeQrb5hnHDUxaILhKQhn THU3M27fj3Q7YAMu MFFaRGE1yVH1xA9icQxr bjogbGVmdDsgdmVydGlj FTwgEWowG527FBWtdUwp My5LYzu8O6FaBmj2 ZKTfrUzsKH7mgFLsEGcz Pw6ugDqtzQpsEY7gIYZn eximq608YyRew9pkKJRi qHFfJLhlIIL7G65n n6J0DHWrOCIdBJZ7yBY9 bH0djObsxmwhgODehMdv evGadIprJProRRgiN812 IHRvcDsnPlBheWVy OjwvdGQ+KX75mr48A1Xr EjqtJbh7ZJSkBCQ3hLU9 jE3jJESzIMocx1N2cPH1 J5XoccQkau2ss5vv YXBzZTog (more content not included)... Normal [facility] ECG 12 lead ECGon 01-14-2023 ECG 12 lead ECG [facility] [place] [address] Electrocardiograph Report Signed Patient: Lorna Deutsch MR#: [id number] 98 : 1985 Acct:[id number] Age/Sex: 38 / F ADM Date: 01/12/23 Loc: Room: [address] [place] [address] Type: ADM IN Attending Dr: Bobo Shields MD Ordering Provider: Bobo Shields MD Date of Service: 01/14/2303/03/500 ECG/ECG 12 lead ECG: New Admit Copies to: Test Reason : Blood Pressure : / mmHG Vent. Rate : 076 BPM Atrial Rate : 076 BPM P-R Int : 120 ms QRS Dur : 100 ms QT Int : 382 ms P-R-T Axes : 078 073 073 degrees QTc Int : 429 ms Normal sinus rhythm with sinus arrhythmia Normal ECG When compared with ECG of 13-MAR-2021 09:08, Non-specific change in ST segment in Anterior leads Nonspecific T wave abnormality no longer evident in Anterior leads Confirmed by ROMÁN RAMOS [facility] ([id number][facility] on 01/14/2023 4:34:36 PM Referred By: Electronically Signed By:RACHAEL RUDD MD [facility] Transcribed By: MUS Signed By Kane Rudd MD 01/14/23 1634 Normal [facility] ED Note-Physicianon 01-14-20 ED Note-Physician [id number] #1.00CD:127 Normal [facility] Correspo ndenceon 01-13-2023 [facility] Correspondence [id number] #1.00CD:127 Normal [facility] Alanine aminotransferase [En zymatic activity/volume] in Serum or PlasmaOrdered By: Carol Moses on 01-12-2023 ALT [Catalytic activity/Vol] 10 U/L 7-52 [facility] Albumin [Mass/volume] in Ser um or Plasma by Bromocresol green (BCG) dye binding methoOrdered By: Carol Moses on 01-12-2023 Albumin BCG dye [Mass/Vol] 5.3 g/dL 3.5-5.7 [facility] Alkaline phosphatase [Enzyma tic activity/volume] in Serum or PlasmaOrdered By: Carol Moses on 01-12-2023 ALP [Catalytic activity/Vol] 50 U/L 34-104 [facility] Amphetamine Screen Ql (U)Ord ered By: Carol Moses on 01-12-2023 Amphetamines Ql (U) Positive Negative [facility] Aspartate aminotransferase [ Enzymatic activity/volume] in Serum or PlasmaOrdered By: Carol Moses on 01-12-2023 AST [Catalytic activity/Vol] 13 U/L 13-39 [facility] Automated erythrocytes count in urine sediment (number/area)Ordered By: Carol Moses on 01-12-2023 RBC Auto (Urine sed) [#/Area] 3-4 [HPF] 0-4 [facility] Automated leukocytes count i n urine sediment (number/area)Ordered By: Carol Moses on 01-12-2023 WBC Auto (Urine sed) [#/Area] 10-19 [HPF] 0-4 [facility] Barbiturates [Presence] in U rine by Screen methodOrdered By: Carol Moses on 01-12-2023 Barbiturates Screen Ql (U) Negative Negative [facility] Basophils Auto (Bld) [#/Vol] Ordered By: Carol Moses on 01-12-2023 Basophils (Bld) [#/Vol] 0.0 10*3/uL 0.0-0.2 [facility] Basophils/100 WBC Auto (Bld) Ordered By: Carol Moses on 01-12-2023 Basophils/100 WBC (Bld) 0.3 % . [facility] Benzodiazepines Screen Ql (U )Ordered By: Carol Moses on 01-12-2023 Benzodiazepines Ql (U) Negative Negative [facility] Benzoylecgonine [Presence] i n Urine by Screen methodOrdered By: Carol Moses on 01-12-2023 Benzoylecgonine Screen Ql (U) Negative Negative [facility] Bilirubin Test strip Ql (U)O rdered By: Carol Moses on 01-12-2023 Bilirubin Ql (U) Negative Negative [facility] Bilirubin.total [Mass/volume ] in Serum or PlasmaOrdered By: Carol Moses on 01-12-2023 Bilirubin [Mass/Vol] 0.6 mg/dL 0.3-1.0 [facility] CARDIAC STACI ADMITon 023 CK [Catalytic activity/Vol] 48 U/L Normal 26-192 [facility] Comment on above: Performed By: #### P REG #### [facility] [address], [place] [address] Dr. Efren Parra CK.MB [Mass/Vol] 0.83 ng/mL Normal <=3.60 [facility] Comment on above: Performed By: #### P REG #### [facility] [address], [place] [address] Dr. Efren Parra HSTROP <4.0 Normal 4.0-51.3 [facility] Comment on above: Result Comment: CUT- OFF POINTS HAVE BEEN ESTABLISHED BASED ON THE FOURTH UNIVERSAL DEFINITIONS OF MYOCARDIAL INFARCTION. THE UPPER REFERENCE LIMIT (URL) OF TROPONIN, DEFINED THE 99TH PERCENTILE OF cTnI DISTRIBUTION IN A REFERENCE POPULATION, HAS BEEN CONFIRMED THE DECISION THRESHOLD FOR [place] DIAGNOSIS. Performed By: #### P REG #### [facility] [address] [place] [address] Dr. Efren Parra FEMI 31 ng/mL Normal 9-82 [facility] Comment on above: Performed By: #### P REG #### [facility] [address] [place] [address] Dr. Efren Parra CBC AUTO DIFFon 01-12-2023 BASO # 0.0 103/ul Normal 0.0-0.1 [facility] Comment on above: Performed By: #### C BC #### [facility] [address] [place] [address] Dr. Efren Parra Basophils/100 WBC (Bld) 0.1 % Critically low 0.2-2.0 [facility] Comment on above: Performed By: #### C BC #### [facility] [address] [place] [address] Dr. Efren Parra EO # 0.0 103/ul Normal 0.0-0.7 [facility] Comment on above: Performed By: #### C BC #### [facility] [address] [place] [address] Dr. Efren Parra Eosinophils/100 WBC (Bld) 0.1 % Critically low 0.9-7.0 [facility] Comment on above: Performed By: #### C BC #### [facility] [address] [place] [address] Dr. Efren Parra Erythrocyte distribution width (RBC) [Ratio] 13.2 % Normal 11.0-15.0 [facility] Comment on above: Performed By: #### C BC #### [facility] [address] [place] [address] Dr. Efren Parra Hematocrit (Bld) [Volume fraction] 45.3 % Normal 36.0-48.0 [facility] Comment on above: Performed By: #### C BC #### [facility] [address] [place] [address] Dr. Efren Parra Hemoglobin (Bld) [Mass/Vol] 15.4 g/dL Normal 12.0-16.0 [facility] Comment on above: Performed By: #### C BC #### [facility] [address] [place] [address] Dr. Efren Parra IG # 0.01 10e3/ul Normal 0.00-0.03 [facility] Comment on above: Performed By: #### C BC #### [facility] [address] [place] [address] Dr. Efren Parra IG % 0.1 % Normal 0.0-0.5 [facility] Comment on above: Performed By: #### C BC #### [facility] [address] [place] [address] Dr. Efren Parra LYMPH # 2.3 103/ul Normal 1.2-3.8 [facility] Comment on above: Performed By: #### C BC #### [facility] [address] [place] [address] Dr. Efren Parra Lymphocytes/100 WBC (Bld) 31.1 % Normal 20.5-60.0 [facility] Comment on above: Performed By: #### C BC #### [facility] [address] [place] [address] Dr. Efren Parra MANUAL DIFF REQ NO Normal [facility] Comment on above: Performed By: #### C BC #### [facility] [address] [place] [address] Dr. Efren Parra MCH (RBC) [Entitic mass] 30.4 pg Normal 26.7-34.0 [facility] Comment on above: Performed By: #### C BC #### [facility] [address] [place] [address] Dr. Efren Parra MCHC (RBC) [Mass/Vol] 34.0 g/dL Normal 29.9-35.2 [facility] Comment on above: Performed By: #### C BC #### [facility] [id number] Efren Parra MCV (RBC) [Entitic vol] 89.5 fL Normal 81.0-99.0 [facility] Comment on above: Performed By: #### C BC #### [facility] [address] [place] [address] Dr. Efren Parra MONO # 0.4 103/ul Normal 0.3-0.8 [facility] Comment on above: Performed By: #### C BC #### [facility] [address] [place] [address] Dr. Efren Parra Monocytes/100 WBC (Bld) 5.6 % Normal 1.7-12.0 [facility] Comment on above: Performed By: #### C BC #### [facility] [address] [place] [address] Dr. Efren Parra NEUT # 4.6 103/ul Normal 1.4-6.5 [facility] Comment on above: Performed By: #### C BC #### [facility] [address] [place] [address] Dr. Efren Parra Neutrophils/100 WBC (Bld) 63.0 % Normal 43.0-75.0 [facility] Comment on above: Performed By: #### C BC #### [facility] [address] [place] [address] Dr. Efren Parra Platelet mean volume (Bld) [Entitic vol] 10.5 fL Normal 9.5-13.5 [facility] Comment on above: Performed By: #### C BC #### [facility] [address] [place] [address] Dr. Efren Parra PLT 262 103/ul Normal 150-450 [facility] Comment on above: Performed By: #### C BC #### [facility] [address] [place] [address] Dr. Efren Parra RBC 5.06 106/ul Normal 4.20-5.40 [facility] Comment on above: Performed By: #### C BC #### [facility] [address] [place] [address] Dr. Efren Parra WBC 7.3 103/ul Normal 4.0-11.0 [facility] Comment on above: Performed By: #### C BC #### [facility] [address] [address] [address] Efren Parra Calcium [Mass/volume] in Ser um or PlasmaOrdered By: Carol Moses on 01-12-2023 Calcium [Mass/Vol] 10.7 mg/dL 8.6-10.3 [facility] Cannabinoids [Presence] in U rine by Screen methodOrdered By: Carol Moses on 01-12-2023 Cannabinoids Screen Ql (U) Negative Negative [facility] Comment on above: These are unconfirme d results and should not be used for legal purposes. Drug Cut-Off Concentration: AMPH 1000 ng/mL SARA 200 ng/mL MARTÍNEZ 200 ng/mL COCM 300 ng/mL OP 300 ng/mL PCP 25 ng/mL THC 20 ng/mL Carbon dioxide, total [Moles /volume] in Serum or PlasmaOrdered By: Carol Moses on 01-12-2023 CO2 [Moles/Vol] 25.9 mmol/L 21.0-31.0 [facility] Chloride [Moles/volume] in S maris or PlasmaOrdered By: Carol Moses on 01-12-2023 Chloride [Moles/Vol] 103 mmol/L 98-107 [facility] Color Auto (U)Ordered By: Shaka Moses on 01-12-2023 Color (U) Yellow Yellow [facility] Complete Blood Count Auto Di ffon 01-12-2023 Basophils (Bld) [#/Vol] 0.0 10*3/uL Normal 0.0-0.2 [facility] Comment on above: Result Comment: PERF ORMED BY: [facility] [address] [place] [address] PATHOLOGIST MANAGER TALENT DANYELL LIVINGSTON M.D. Performed By: #### C UU, ADDONUAPLUS, URDS #### [facility] [address] Basophils/100 WBC (Bld) 0.3 % Normal . [facility] Comment on above: Performed By: #### C UU, ADDONUAPLUS, URDS #### [address] Eosinophils (Bld) [#/Vol] 0.0 10*3/uL Normal 0.0-0.45 [facility] Comment on above: Performed By: #### C UU, ADDONUAPLUS, URDS #### [address] Eosinophils/100 WBC (Bld) 0.2 % Normal . [facility] Comment on above: Performed By: #### C UU, ADDONUAPLUS, URDS #### [address] Erythrocyte distribution width (RBC) [Ratio] 14.2 % Normal 11.9-15.3 [facility] Comment on above: Performed By: #### C UU, ADDONUAPLUS, URDS #### [address] Hematocrit (Bld) [Volume fraction] 47.7 % High 34.0-46.4 [facility] Comment on above: Performed By: #### C UU, ADDONUAPLUS, URDS #### [address] Hemoglobin (Bld) [Mass/Vol] 16.1 g/dL High 11.8-15.4 [facility] Comment on above: Performed By: #### C UU, ADDONUAPLUS, URDS #### [address] Lymphocytes (Bld) [#/Vol] 1.7 10*3/uL Normal 1.00-4.8 [facility] Comment on above: Performed By: #### C UU, ADDONUAPLUS, URDS #### [address] Lymphocytes/100 WBC (Bld) 25.4 % Normal . [facility] Comment on above: Performed By: #### C UU, ADDONUAPLUS, URDS #### [address] MCH (RBC) [Entitic mass] 30.9 pg Normal 24.7-34.3 [facility] Comment on above: Performed By: #### C UU, ADDONUAPLUS, URDS #### [address] MCV (RBC) [Entitic vol] 91.9 fL Normal 80-100 [facility] Comment on above: Performed By: #### C UU, ADDONUAPLUS, URDS #### [address] Mean Corpuscular HGB Conc 33.7 g/dL Normal 32.0-35.0 [facility] Comment on above: Performed By: #### C UU, ADDONUAPLUS, URDS #### [address] Monocytes (Bld) [#/Vol] 0.3 10*3/uL Normal 0.0-0.8 [facility] Comment on above: Performed By: #### C UU, ADDONUAPLUS, URDS #### [address] Monocytes/100 WBC (Bld) 17.67 % Normal 0.00-20.00 [facility] Comment on above: Performed By: #### C UU, ADDONUAPLUS, URDS #### [address] Monocytes/100 WBC (Bld) 5.2 % Normal . [facility] Comment on above: Performed By: #### C UU, ADDONUAPLUS, URDS #### [place] [address] [place] Neutrophils (Bld) [#/Vol] 4.5 10*3/uL Normal 1.8-7.7 [facility] Comment on above: Performed By: #### C UU, ADDONUAPLUS, URDS #### [place] [address] [place] Neutrophils/100 WBC (Bld) 68.9 % Normal . [facility] Comment on above: Performed By: #### C UJODY GalanONSTEFANO, URDS #### [facility] [address] [place] [address] NRBC% 0.1 /100{WBC} Normal 0-0.5 [facility] Comment on above: Performed By: #### C UU ADDONUAPLUS, URDS #### [address] Platelet mean volume (Bld) [Entitic vol] 8.7 fL Normal 6.3-10.7 [facility] Comment on above: Performed By: #### C UJODY GalanONMEDINAPLUS, URDS #### [address] Platelets (Bld) [#/Vol] 275 10*3/uL Normal 150-450 [facility] Comment on above: Performed By: #### C UU ADDONUAPLUS, URDS #### [address] RBC (Bld) [#/Vol] 5.19 10*6/uL High 3.60-5.00 [facility] Comment on above: Performed By: #### C UU ADDONUAPLUS, URDS #### [address] WBC (Bld) [#/Vol] 6.5 10*3/uL Normal 3.8-11.6 [facility] Comment on above: Performed By: #### C UU, ADDONUAPLUS, URDS #### [facility] [address] [place] [address] Comprehensive Metabolic Pane selam 01-12-2023 Albumin [Mass/Vol] 5.3 g/dL Normal 3.5-5.7 [facility] Comment on above: Performed By: #### C UU, ADDONUAPLUS, URDS #### [address] Albumin/Globulin [Mass ratio] 1.4 {ratio} Normal [facility] Comment on above: Performed By: #### C HEMAL HERNANDEZ URDS #### [facility] [address] [place] [address] ALP [Catalytic activity/Vol] 50 U/L Normal 34-104 [facility] Comment on above: Performed By: #### C HEMAL HERNANDEZ URDS #### [facility] [address] [place] [address] ALT [Catalytic activity/Vol] 10 U/L Normal 7-52 [facility] Comment on above: Performed By: #### C HEMAL HERNANDEZ URDS #### [facility] [address] [place] [address] Anion gap [Moles/Vol] 13.1 mmol/L Normal 6.0-15.0 [facility] Comment on above: Performed By: #### C HEMAL HERNANDEZ URDS #### [facility] [address] [place] [address] AST [Catalytic activity/Vol] 13 U/L Normal 13-39 [facility] Comment on above: Performed By: #### C HEMAL HERNANDEZ URDS #### [facility] [address] [place] [address] Bilirubin [Mass/Vol] 0.6 mg/dL Normal 0.3-1.0 [facility] Comment on above: Performed By: #### C HEMAL HERNANDEZ URCHANTALE #### [facility] [address] [place] [address] Calcium [Mass/Vol] 10.7 mg/dL High 8.6-10.3 [facility] Comment on above: Performed By: #### C HEMAL HERNANDEZ URCHANTALE #### [facility] [address] [place] [address] Chloride [Moles/Vol] 103 mmol/L Normal 98-107 [facility] Comment on above: Performed By: #### C HEMAL HERNANDEZ URDS #### [facility] [address] CO2 [Moles/Vol] 25.9 mmol/L Normal 21.0-31.0 [facility] Comment on above: Performed By: #### C UU, ADDONUAPLUS, URDS #### [facility] [address] Creatinine [Mass/Vol] 0.65 mg/dL Normal 0.60-1.20 [facility] Comment on above: Performed By: #### C UU, ADDONUAPLUS, URDS #### [facility] [address] [place] [address] [place] Creatinine Clr Calc Pharmacy 105.60 [facility] Comment on above: Result Comment: PERF ORMED BY: [place] [address] PATHOLOGIST MANAGER TALENT DANYELL LIVINGSTON M.D. Performed By: #### C UJODY GalanONMEDINAPLUS, URDS #### [facility] [address] GFR/1.73 sq M.predicted MDRD (S/P/Bld) [Vol rate/Area] mL/min/{1.73_m2} [facility] Comment on above: Performed By: #### C UUJODYONMEDINAPLUS, URDS #### [facility] [address] Globulin (S) [Mass/Vol] 3.9 g/dL [facility] Comment on above: Performed By: #### C UU, ADDONUAPLUS, URDS #### [facility] [address] Glucose [Mass/Vol] 107 mg/dL High 70-100 [facility] Comment on above: Result Comment: [place] Glucose Reference Range is dependent on time and content of last meal. Glucose of more than 200 mg/dL in a nonstressed, ambulatory subject supports the diagnosis of Diabetes Mellitus. ADA recommended reference range Performed By: #### C UU, ADDONUAPLUS, URDS #### [facility] [address] Potassium [Moles/Vol] 3.0 mmol/L Low 3.5-5.1 [facility] Comment on above: Performed By: #### C UU, ADDONUAPLUS, URDS #### [facility] [address] Protein [Mass/Vol] 9.2 g/dL High 6.4-8.9 [facility] Comment on above: Performed By: #### C UU, ADDONUAPLUS, URDS #### [facility] [address] Sodium [Moles/Vol] 139 mmol/L Normal 136-145 [facility] Comment on above: Performed By: #### C UU, ADDONUAPLUS, URDS #### [facility] [address] Urea nitrogen [Mass/Vol] 14 mg/dL Normal 7-25 [facility] Comment on above: Performed By: #### C UU, ADDONUAPLUS, URDS #### [facility] [address] [place] [address] Consent for Treatmenton 04 Consent for Treatment [id number] 30 [id number] #1.00CD:127 Normal [facility] Creatinine [Mass/volume] in Serum or PlasmaOrdered By: Carol Moses on 01-12-2023 Creatinine [Mass/Vol] 0.65 mg/dL 0.60-1.20 [facility] DRUG SCREEN RAPID (URINE)on 01-12-2023 AMP Positive Abnormal NEGATIVE [facility] Comment on above: Performed By: #### C BC #### [facility] [address] [address] [address] Efren Parra BAR Negative Normal NEGATIVE [facility] Comment on above: Performed By: #### C BC #### [facility] [address] [address] [address] Efren Parra BUP Negative Normal NEGATIVE [facility] Comment on above: Performed By: #### C BC #### [facility] [address] [address] [address] Efren Parra BZO Negative Normal NEGATIVE [facility] Comment on above: Performed By: #### C BC #### [facility] [address] [place] [address] Dr. Efren Parra RENEA Negative Normal NEGATIVE [facility] Comment on above: Performed By: #### C BC #### [facility] [address] [place] [address] Dr. Efren Parra CUT-OFFS SEE BELOW Normal [facility] Comment on above: Result Comment: AMP (Amphetamine): 500ng/mL, BAR (Barbituates): 200 ng/mL, BZO (Benzodiazepines): 150 ng/mL, BUP (Buprenorphine): 10 ng/mL, RENEA (Cocaine): 150 ng/mL, mAMP (Methamphetamine): 500 ng/mL, MTD (Methadone): 200 ng/mL, OPI (Opiates): 100 ng/mL, OXY (Oxycodone): 100 ng/mL, PCP (Phencyclidine): 25 ng/mL, PPX (Propoxyphene): 300 ng/mL, THC (Cannabinoids): 50 ng/mL, TCA (Trycyclic Antidepressants): 300 ng/mL Performed By: #### C BC #### [facility] [address] [place] [address] Dr. Efren Parra DRUG CUT HEADER DRUG CLASS TEST SYSTEM CUT-OFF CONCENTRATIONS ARE FOLLOWS: Normal [facility] Comment on above: Performed By: #### C BC #### [facility] [address] [place] [address] Dr. Efren Parra mAMP Positive Abnormal NEGATIVE [facility] Comment on above: Performed By: #### C BC #### [facility] [address] [place] [address] Dr. Efren Parra MTD Positive Abnormal NEGATIVE [facility] Comment on above: Performed By: #### C BC #### [facility] [address] [place] [address] Dr. Efren Parra OPI Negative Normal NEGATIVE [facility] Comment on above: Performed By: #### C BC #### [facility] [address] [address] [address] Efren Parra OXY Negative Normal NEGATIVE [facility] Comment on above: Performed By: #### C BC #### [facility] [address] [address] [address] Efren Parra PCP Negative Normal NEGATIVE [facility] Comment on above: Performed By: #### C BC #### [facility] [address] [address] [address] Efren Parra PPX Negative Normal NEGATIVE [facility] Comment on above: Performed By: #### C BC #### [facility] [address] [address] [address] Efren Parra TCA Positive Abnormal NEGATIVE [facility] Comment on above: Performed By: #### C BC #### [facility] [address] [address] [address] Efren Parra THC Negative Normal NEGATIVE [facility] Comment on above: Performed By: #### C BC #### [facility] [address] [address] [address] Efren Parra Dipstick and Microscopicon 0 01-12-2023 Appearance (U) Cloudy Critically abnormal Clear [facility] Comment on above: Order Comment: Name Collection Type:: Clean-Voided Midstream Performed By: #### C UU, ADDONUAPLUS, URDS #### [facility] [address] [place] [address] [place] Bacteria,Urine 4+ High None Seen [facility] Comment on above: Order Comment: Name Collection Type:: Clean-Voided Midstream Performed By: #### C UU, ADDONUAPLUS, URDS #### [facility] [address] [place] [address] [place] Bilirubin,Urine Negative Normal Negative [facility] Comment on above: Order Comment: Name Collection Type:: Clean-Voided Midstream Performed By: #### C UU, ADDONUAPLUS, URDS #### [facility] [address] [place] [address] [place] Color (U) Yellow Normal Yellow [facility] Comment on above: Order Comment: Name Collection Type:: Clean-Voided Midstream Performed By: #### C UU, ADDONUAPLUS, URDS #### [facility] [address] [place] [address] [place] Glucose Ql (U) Normal Normal Normal [facility] Comment on above: Order Comment: Name Collection Type:: Clean-Voided Midstream Performed By: #### C UU, ADDONUAPLUS, URDS #### [place] [address] [place] Hyaline Casts,Urine 9-19 High 0-8 [facility] Comment on above: Order Comment: Name Collection Type:: Clean-Voided Midstream Performed By: #### C UU, ADDONUAPLUS, URDS #### [place] [address] [place] Ketones Ql (U) Trace High Negative [facility] Comment on above: Order Comment: Name Collection Type:: Clean-Voided Midstream Performed By: #### C UU, ADDONUAPLUS, URDS #### [facility] [address] [place] [address] [place] Leukocyte esterase Test strip Ql (U) 2+ High Negative [facility] Comment on above: Order Comment: Name Collection Type:: Clean-Voided Midstream Performed By: #### C UU, ADDONUAPLUS, URDS #### [facility] [address] [place] [address] [place] Nitrite,Urine Positive High Negative [facility] Comment on above: Order Comment: Name Collection Type:: Clean-Voided Midstream Performed By: #### C UU, ADDONUAPLUS, URDS #### [facility] [address] [place] [address] [place] Occult Blood,Urine Trace High Negative [facility] Comment on above: Order Comment: Name Collection Type:: Clean-Voided Midstream Performed By: #### C UU, ADDONUAPLUS, URDS #### [place] [address] [place] pH (U) 6.0 [pH] Normal 5.0-9.0 [facility] Comment on above: Order Comment: Name Collection Type:: Clean-Voided Midstream Performed By: #### C UU, ADDONUAPLUS, URDS #### [address] Protein,Urine Negative Normal Negative [facility] Comment on above: Order Comment: Name Collection Type:: Clean-Voided Midstream Performed By: #### C UU, ADDONUAPLUS, URDS #### [address] RBC,Urine 3-4 Normal 0-4 [facility] Comment on above: Order Comment: Name Collection Type:: Clean-Voided Midstream Performed By: #### C UU, ADDONUAPLUS, URDS #### [address] Specificy [place],Urine 1.020 Normal 1.001-1.030 [facility] Comment on above: Order Comment: Name Collection Type:: Clean-Voided Midstream Performed By: #### C UU, ADDONUAPLUS, URDS #### [address] Squamous Epithelial Cell,Urine 5-9 High 0-2 [facility] Comment on above: Order Comment: Name Collection Type:: Clean-Voided Midstream Performed By: #### C UU, ADDONUAPLUS, URDS #### [facility] [address] [place] [address] [place] Urobilinogen,Urine Normal Normal Normal [facility] Comment on above: Order Comment: Name Collection Type:: Clean-Voided Midstream Performed By: #### C UU, ADDONUAPLUS, URDS #### [place] [address] [place] WBC,Urine 10-19 High 0-4 [facility] Comment on above: Order Comment: Name Collection Type:: Clean-Voided Midstream Performed By: #### C UU, ADDONUAPLUS, URDS #### [address] Discharge Instructionson Discharge Instructions [id number]#1.00CD:127 Normal [facility] Drug Screen,Urineon 01-13-20 23 Amphetamine Screen,Urine Positive High Negative [facility] Comment on above: Performed By: #### C UU, ADDONUAPLUS, URDS #### [place] [address] [place] Barbiturate Screen,Urine Negative Normal Negative [facility] Comment on above: Performed By: #### C UU, ADDONUAPLUS, URDS #### [place] [address] [place] Benzodiazepines Screen,Urine Negative Normal Negative [facility] Comment on above: Performed By: #### C UU, ADDONUAPLUS, URDS #### [address] Cannabinoid Screen,Urine Negative Normal Negative [facility] Comment on above: Result Comment: Thes e are unconfirmed results and should not be used for legal purposes. Drug Cut-Off Concentration: AMPH 1000 ng/mL SARA 200 ng/mL MARTÍNEZ 200 ng/mL COCM 300 ng/mL OP 300 ng/mL PCP 25 ng/mL THC 20 ng/mL PERFORMED BY: [place] [address] PATHOLOGIST MANAGER TALENT DANYELL LIVINGSTON M.D. Performed By: #### C UU, ADDONUAPLUS, URDS #### [address] Cocaine Screen,Urine Negative Normal Negative [facility] Comment on above: Performed By: #### C UU, ADDONUAPLUS, URDS #### [address] Opiate Screen,Urine Negative Normal Negative [facility] Comment on above: Performed By: #### C UU, ADDONUAPLUS, URDS #### [address] Phencyclidine Screen,Urine Negative Normal Negative [facility] Comment on above: Performed By: #### C HEMAL HERNANDEZ URDS #### [facility] [address] [id number] [facility] ED Clinical Summaryon 2022 ED Clinical Summary [address] [address] ED Clinical Summary Person Information Name: LORNA DEUTSCH[place] Age: 38 Years : 1985 Sex: Female Language: Mozambican PCP: Cris PENA CNP Marital Status: Phone: [phone] Visit Id: Visit Reason: Anxiety; Medical problem - minor; NOT FEELING GOOD Speciality: Acuity: 4 Enc Type: Emergency Med Service: Emergency Arrival: 01/12/2023 01:30:57 Discharge: 01/12/2023 01:55:00 LOS: 000 00:25 Checkin: 01/12/2023 01:30:57 Checkout: 01/12/2023 01:55:00 Dispo Type: Home (Routine DC) EVENTS: Event Name Event Status Request Date/Time Start Date/Time Complete Date/Time Arrive Complete 01/12/2023 01:30:57 01/12/2023 01:30:57 01/12/2023 01:30:57 Document Home Meds Request 01/12/2023 01:30:57 Triage Complete 01/12/2023 01:30:57 01/12/2023 01:37:40 01/12/2023 01:37:40 Dr Exam Complete 01/12/2023 01:33:38 01/12/2023 01:33:38 01/12/2023 01:33:38 Registration Complete 01/12/2023 01:33:38 01/12/2023 01:36:15 01/12/2023 01:36:15 Reg Complete Request 01/12/2023 01:36:15 Reg Bed Request Complete 01/12/2023 01:36:15 01/12/2023 01:36:15 01/12/2023 01:36:15 Bed Assign Complete 01/12/2023 01:37:47 01/12/2023 01:37:47 01/12/2023 01:37:47 RN Exam Complete 01/12/2023 01:37:47 01/12/2023 01:58:02 01/12/2023 01:58:02 Meds Admin Complete 01/12/2023 01:44:47 01/12/2023 01:52:10 Discharge Complete 01/12/2023 01:47:03 01/12/2023 02:02:29 01/12/2023 02:02:29 Transfer Complete 01/12/2023 02:02:29 01/12/2023 02:02:29 01/12/2023 02:02:29 ADDRESS: [id number] [id number] [facility] DOC NOTES: MEDICAL INFORMATION: Prescriptions Given: Medications to Continue Taking That Have Changed Printed Prescriptions START: hydrOXYzine (hydrOXYzine hydrochloride 25 mg Tab) 1 Tablets By Mouth every day. Refills: 0. Other Medications START: hydrOXYzine (hydrOXYzine hydrochloride 10 mg/5 mL Oral Syrup) 10 Milliliter By Mouth 4 times a day as needed as needed for anxiety. Refills: 3. Medications to Continue with No Changes Other Medications albuterol (albuterol 0.083% Inh Vera 3 mL) 3 Milliliter Inhalation every 6 hours as needed for wheezing. Refills: 1. albuterol (albuterol HFA 90 mcg/inh MDI) 2 Puffs Inhalation 4 times a day. Refills: 1. amphetamine-dextroam phetamine (Adderall 20 mg Tab) 1 Tablets By Mouth 2 times a day. 30 day supply. Refills: 0. amphetamine-dextroam phetamine (Adderall 20 mg Tab) 1 Tablets By Mouth 2 times a day. 30 day supply. Refills: 0. budesonide (Pulmicort Flexhaler 180 mcg/inh Powder) 2 Inhalation Inhalation 2 times a day. Refills: 10. divalproex sodium (Depakote DR 500 mg Tab-EC) Take one (1) AM and two (2) HS po. Refills: 3. divalproex sodium (Depakote) 500 Milligram By Mouth 3 times a day. gabapentin (gabapentin 400 mg Cap) 1 cap(s) Oral 5 x per day. Refills: 2. methadone 180 Milligram By Mouth every day. quetiapine (SEROquel 200 mg Tab) 1 Tablets By Mouth once a day (in the evening). Refills: 3. PATIENT EDUCATION INFORMATION: Instructions: Generalized Anxiety Disorder, Adult Follow up: With: Address: When: Cris PENA [address] [place] [address] Business (1) In 3 days 01/15/2023 Comments: You can use the hydroxyzine every 8 hours as needed. Please follow-up with your primary care doctor next 2 to 3 days. Please return to the ED for any new or worsening symptoms DIAGNOSIS: Anxiety; Drug-seeking behavior [facility] ED Note-Nursingon 01-12-2023 ED Note-Nursing pt given d/c instructions and educated on importance of follow up with methadone clinic in the morning. pt took medication before leaving. pt refused paper prescription stating she has some at home. pt refused to sign d/c instructions because she states she was told she could get methadone at an ER by her methadone clinic if she misses an appointment. pt walked self ambulatory to waiting room in stable condition with her boyfriend to drive her home [facility] ED Note-Nursing pt arrived to ed from home via private car with her boyfriend c/o anxiety. pt states she missed her methadone appointment 4 days ago and has an appointment this morning. pt asking for ativan. pt denies any other compaints at this time. pt is very restless on assessment. [facility] ED Note-Physicianon 01-13-20 ED Note-Physician Basic Information Time Seen: Norma Dietz DO 01/12/2023 01:33 Chief Complaint states hasn't made it to her methodone appt and has been out for four days. anxiety now. History of Present Illness Patient is a 38-year-old female with a past medical history of paranoid schizophrenia, drug abuse, hepatitis C presenting to the ED for evaluation of anxiety and being out of her methadone. Patient states there was an emergency as she was unable to make it to her methadone appointment and has been out for 4 days. Patient does have an appointment in the morning. Patient also states that she is having increasing anxiety due to being off of her methadone as requesting something for anxiety. Denies any fevers, chills, nausea or vomiting. Review of Systems A 10 point review of systems is negative except as noted above. Medical and Surgical History: Reviewed and noted Social history: Lives at home Tobacco: Denies Physical Exam Vitals & Measurements T: 36.4 ?C(Oral) HR: 75(Peripheral) RR: 16 BP: 126/85 SpO2: 96% HT: 168 cm WT: 59.7 kg BMI: 21.15 General: Well developed, non toxic appearing, no acute distress HEENT: Head atraumatic, Mucosa moist, hearing grossly normal Neck: No JVD, tracheal deviation Cardiac: Regular rate, rhythm, no murmurs, or gallops, 2+ radial pulses Respiratory: Lungs clear to auscultation B/L, normal respiratory effort Abdomen: Soft non tender, no rebound or guarding, no peritoneal signs Extremities: No edema noted in the LE B/L, no tenderness to palpation Neurologic: Alert and oriented, speech clear Skin: No rashes or lesions Psych: Appropriate mood and behavior Medical Decision Making MEDICAL DECISION MAKING Number and Complexity of Problems Differential Diagnosis: [] [facility] Data External documents reviewed: [] My EKG interpretation: [] My CT interpretation: [] My X-ray interpretation: [] My Ultrasound interpretation: [] Decision rules/scores evaluated: [] Discussed with: [] Treatment and Disposition ED Course: Patient is a 38-year-old female presenting to the ED for evaluation of anxiety, medication refill. Patient nontoxic-appearing on arrival, no acute distress. I did offer the patient hydroxyzine however patient states she already has this. Patient specifically requesting Ativan. I explained that I am not comfortable giving her this medication I did offer the hydroxyzine again which she is agreeable to take. Patient states she is out of her methadone. Patient was at this facility 4 days ago requesting a refill of her Adderall. There are multiple notes in the system that patient has been getting prescriptions for different controlled substances from multiple different prescribers primary care doctor is no longer writing her for these medications. Patient is given hydroxyzine in the ED and discharged home with a prescription for hydroxyzine. Shared decision making: [] Code status: [] Assessment/Plan Anxiety (F41.9: Anxiety disorder, unspecified) Drug-seeking behavior (Z76.5: Malingerer [conscious simulation]) Orders: hydrOXYzine, 25 mg = 1 tab(s), Oral, Daily, # 15 tab(s), Refills(s) 0 hydrOXYzine, 50 mg = 2 tab(s), Tab, Oral, Once, Stop date 01/12/23 1:44:00 EDT, STAT, Start date 01/12/23 1:44:00 EDT, 01/12/23 1:44:00 EDT Disposition Plan Discharge Prescription List Prescriptions hydrOXYzine hydrochloride 25 mg Tab, 25 mg= 1 tab(s), Oral, Daily Follow-up With When Contact Information Cris SARAVIARONALDO In 3 days 01/15/2023 EDT [address] [phone] Business (1) Additional Instructions: You can use the hydroxyzine every 8 hours as needed. Please follow-up with your primary care doctor next 2 to 3 days. Please return to the ED for any new or worsening symptoms Patient Education Generalized Anxiety Disorder, Adult Problem List/Past Medical History Ongoing ADHD ASTHMA BMI 25.0-25.9,adult Chronic back pain Chronic hepatitis C Constipation Contraception management History of drug abuse Neuropathy Paranoid schizophrenia Smoker Historical HEPATITIS, C Substance abuse Suicide attempt Tobacco use during Tobacco use during Procedure/Surgical History teeth extraction (10/12/2011), denies. Medications Inpatient hydrOXYzine hydrochloride 25 mg Tab, 50 mg= 2 tab(s), Oral, Once Home Adderall 20 mg Tab, 20 mg= 1 tab(s), Oral, BID Adderall 20 mg Tab, 20 mg= 1 tab(s), Oral, BID albuterol 0.083% Inh Vera 3 mL, 2.5 mg= 3 mL, Inhalation, q6hr, PRN, 1 refills albuterol HFA 90 mcg/inh MDI, 2 puff(s), Inhalation, QID, 1 refills Depakote, 500 mg, Oral, TID Depakote DR 500 mg Tab-EC, See Instructions, 3 refills gabapentin 400 mg Cap, See Instructions, 2 refills hydrOXYzine hydrochloride 10 mg/5 mL Oral Syrup, 20 mg= 10 mL, Oral, QID, PRN, 3 refills hydrOXYzine hydrochloride 25 mg Tab, 25 mg= 1 tab(s), Oral, Daily methadone, 180 (more content not included)... [facility] Comment on above: Result Comment: Elec tronically Signed By: Norma Dietz DO\.br\Date and Time Signed: 01/12/23 01:54 EDT ED Patient Education Noteon 01-12-2023 ED Patient Education Note Mental and Behavioral Health Generalized Anxiety Disorder, Adult Generalized anxiety disorder (VALERIA) is a mental health disorder. People with this condition constantly worry about everyday events. Unlike normal anxiety, worry related to VALERIA is not triggered by a specific event. These worries also do not fade or get better with time. VALERIA interferes with life functions, including relationships, work, and school. VALERIA can vary from mild to severe. People with severe VALERIA can have intense waves of anxiety with physical symptoms (panic attacks). What are the causes? The exact cause of VALERIA is not known. What increases the risk? This condition is more likely to develop in: ? Women. ? People who have a family history of anxiety disorders. ? People who are very shy. ? People who experience very stressful life events, such as the of a loved one. ? People who have a very stressful family environment. What are the signs or symptoms? People with VALERIA often worry excessively about many things in their lives, such as their health and family. They may also be overly concerned about: ? Doing well at work. ? Being on time. ? Natural disasters. ? Friendships. Physical symptoms of VALERIA include: ? Fatigue. ? Muscle tension or having muscle twitches. ? Trembling or feeling shaky. ? Being easily startled. ? Feeling like your heart is pounding or racing. ? Feeling out of breath or like you cannot take a deep breath. ? Having trouble falling asleep or staying asleep. ? Sweating. ? Nausea, diarrhea, or irritable bowel syndrome (IBS). ? Headaches. ? Trouble concentrating or remembering facts. ? Restlessness. ? Irritability. How is this diagnosed? Your health care provider can diagnose VALERIA based on your symptoms and medical history. You will also have a physical exam. The health care provider will ask specific questions about your symptoms, including how severe they are, when they started, and if they come and go. Your health care provider may ask you about your use of alcohol or drugs, including prescription medicines. Your health care provider may refer you to a mental health specialist for further evaluation. Your health care provider will do a thorough examination and may perform additional tests to rule out other possible causes of your symptoms. To be diagnosed with VALERIA, a person must have anxiety that: ? Is out of his or her control. ? Affects several different aspects of his or her life, such as work and relationships. ? Causes distress that makes him or her unable to take part in normal activities. ? Includes at least three physical symptoms of VALERIA, such as restlessness, fatigue, trouble concentrating, irritability, muscle tension, or sleep problems. Before your health care provider can confirm a diagnosis of VALERIA, these symptoms must be present more days than they are not, and they must last for six months or longer. How is this treated? The following therapies are usually used to treat VALERIA: ? Medicine. Antidepressant medicine is usually prescribed for long-term daily control. Antianxiety medicines may be added in severe cases, especially when panic attacks occur. ? Talk therapy (psychotherapy). Certain types of talk therapy can be helpful in treating VALERIA by providing support, education, and guidance. Options include: ? Cognitive behavioral therapy (CBT). People learn coping skills and techniques to ease their anxiety. They learn to identify unrealistic or negative thoughts and behaviors and to replace them with positive ones. ? Acceptance and commitment therapy (ACT). This treatment teaches people how to be mindful as a way to cope with unwanted thoughts and feelings. ? Biofeedback. This process trains you to manage your body's response (physiological response) through breathing techniques and relaxation methods. You will work with a therapist while machines are used to monitor your physical symptoms. ? Stress management techniques. These include yoga, meditation, and exercise. A mental health specialist can help determine which treatment is best for you. Some people see improvement with one type of therapy. However, other people require a combination of therapies. Follow these instructions at home: ? Take vlds-cgy-cmkmnhs and prescription medicines only as told by your health care provider. ? Try to maintain a normal routine. ? Try to anticipate stressful situations and allow extra time to manage them. ? Practice any stress management or self-calming techniques as taught by your health care provider. ? Do not punish yourself for setbacks or for not making progress. ? Try to recognize your accomplishments, even if they are small. ? Keep all follow-up visits as told by your health care provider. This is important. Contact a health care provider if: ? Your symptoms do not get better. ? Your symptoms get worse. ? You have signs of depression, such as: ? A persistent (more content not included)... [facility] ED Patient Summaryon 023 ED Patient Summary [address] [address] Patient Discharge Instructions Person Information Name: LORNA DEUTSCH Age: 38 Years Arrival Date: 01/12/2023 01:30:57 Discharge Diagnosis: Anxiety; Drug-seeking behavior Primary Care Physician: Cris PENA CNP Provider Information Primary Provider: Norma Dietz DO Advanced Cnc Lathe Programmer:None The exam and treatment you received in the Emergency Department were for an urgent problem and are not intended as complete care. It is important that you follow up with a doctor, nurse practitioner, or physician?s dermatology physician assistant for ongoing care. If your symptoms become worse or you do not improve as expected and you are unable to reach your usual health care provider, you should return to the Emergency Department. We are available 24 hours a day. LORNA DEUTSCH has been given the following list of patient education materials, prescriptions and follow-up instructions: Follow-up Instructions: With: Address: When: Cris [address]NA [address] [place] [address] [facility] (1) In 3 days 01/15/2023 Comments: You can use the hydroxyzine every 8 hours as needed. Please follow-up with your primary care doctor next 2 to 3 days. Please return to the ED for any new or worsening symptoms In the event that this physician does not participate in your insurance network, please consult with your insurance company to find a nearby participating provider. Patient Education Materials: Generalized Anxiety Disorder, Adult A MESSAGE TO ALL PATIENTS REGARDING OPIOIDS PRESCRIPTION OPIOIDS: WHAT YOU NEED TO KNOW Prescription opioids can be used to help relieve ntccflig-ht-zdnfyg pain and are often prescribed following a surgery or injury, or for certain health conditions. These medications can be an important part of the treatment but also come with serious risks. It is important to work with your healthcare provider to make sure you are getting the safest, most effective care. WHAT ARE THE RISKS AND SIDE EFFECTS OF OPIOID USE? Prescription opioids carry serious risks of addiction and overdose, especially with prolonged use. An opioid overdose, often marked by slowed breathing, can cause sudden . The use of prescription opioids can have a number of side effects as well, even when taken as directed: ? Tolerance?meaning you might need to take more of the medication for the same pain relief ? Physical dependence?meaning you have symptoms of withdrawal when a medication is stopped ? Increased sensitivity to pain ? Constipation ? Nausea, vomiting, and dry mouth ? Sleepiness and dizziness ? Confusion ? Depression ? Low levels of testosterone that can result in lower sex drive, energy, and strength ? Itching and sweating RISKS ARE GREATER WITH: ? History of drug misuse, substance use disorder, or overdose ? Mental health conditions (such as depression or anxiety) ? Sleep apnea ? Older age (65 years and older) ? Avoid alcohol while taking prescription opioids. Also, unless specifically advised by your health care provider, medications to avoid include: ? Benzodiazepines (such as Xanax or Valium) ? Muscle relaxants (such as Soma or Flexeril) ? Hypnotics (such as Ambien or Lunesta) ? Other prescription opioids KNOW YOUR OPTIONS Talk to your health care provider about ways to manage your pain that don?t involve prescription opioids. Some of these options may actually work better and have fewer risks and side effects. Options may include: ? Pain relievers such as acetaminophen, ibuprofen, and naproxen ? Some medication that are also used for depression or seizures ? Physical therapy and exercise ? Cognitive behavioral therapy, a psychological, goal-directed approach, in which patients learn how to modify physical, behavioral, and emotional triggers of pain and stress. IF YOU ARE PRESCRIBED OPIOIDS FOR PAIN: ? Never take opioids in greater amounts or more often than prescribed. ? Follow up with your primary health care provider. o Work together to create a plan on how to manage your pain. o Talk about ways to help manage your pain that don?t involve prescription opioids. o Talk about any and all concerns and side effects. ? Help prevent misuse and abuse o Never sell or share prescription opioids. o Never use another person?s prescription opioids. ? Store prescription opioids in a secure place and out of reach of others (this may include visitors, children, friends, and family). ? Safely dispose of unused prescription opioids: Find your community drug take-back program or your pharmacy mail-back program, or flush them down the toilet, following guidance from the Food and Drug Administration (www.fda.gov/Drugs/R esourcesForYou). ? Visit www.cdc.gov/drugover dose to learn about the risks of opioids abuse and overdose. (more content not included)... [facility] ER URINE PROFILEon 3 Bilirubin Ql (U) Negative Normal NEGATIVE [facility] Comment on above: Performed By: #### C BC #### [facility] [address] [place] [address] Dr. Efren Parra Clarity (U) CLEAR Normal CLEAR [facility] Comment on above: Performed By: #### C BC #### [facility] [address] [place] [address] Dr. Efren Parra Color (U) YELLOW Normal YELLOW [facility] Comment on above: Performed By: #### C BC #### [facility] [address] [place] [address] Dr. Efren SETH A micrscopic examination will be performed if indicated. Normal [facility] Comment on above: Performed By: #### C BC #### [facility] [address] [place] [address] Dr. Efren Parra Glucose Ql (U) Negative Normal NEGATIVE [facility] Comment on above: Performed By: #### C BC #### [facility] [address] [address] [address] Efren Parra Hemoglobin Ql (U) SMALL Abnormal NEGATIVE [facility] Comment on above: Performed By: #### C BC #### [facility] [address] [place] [address] Dr. Efren Parra Ketones Ql (U) 15 mg/dl Abnormal NEGATIVE [facility] Comment on above: Performed By: #### C BC #### [facility] [address] [address] [address] Efren Parra LEUKOCYTES Negative Normal NEGATIVE [facility] Comment on above: Performed By: #### C BC #### [facility] [address] [place] [address] Dr. Efren Parra Nitrite Ql (U) Negative Normal NEGATIVE [facility] Comment on above: Performed By: #### C BC #### [facility] [address] [address] [address] Efren Parra pH (U) 7.0 [pH] Normal 5-9 [facility] Comment on above: Performed By: #### C BC #### [facility] [address] [place] [address] Dr. Efren Parar SPEC GRAVITY 1.020 Normal 1.005-<=1.025 [facility] Comment on above: Performed By: #### C BC #### [facility] [address] [place] [address] Dr. Efren Parra UA PROTEIN Negative Normal NEGATIVE/ TRACE [facility] Comment on above: Performed By: #### C BC #### [facility] [address] [place] [address] Dr. Efren Parra UR MICRO IND INDICATED Normal [facility] Comment on above: Performed By: #### C BC #### [facility] [address] [place] [address] Dr. Efren Parra Urobilinogen Qn (U) 1.0 {Adria'U}/dL Normal 0.2 - 1. 0 [facility] Comment on above: Performed By: #### C BC #### [facility] [address] [place] [address] Dr. Efren Parra ETHANOL (BLD ALC)on 01-13-20 ALC NOTE NOTE: 80 mg/dl is the legal limit for a blood alcohol level Normal [facility] Comment on above: Performed By: #### P REG #### [facility] [address] [place] [address] Dr. Efren Parra Ethanol [Mass/Vol] mg/dL [facility] Comment on above: Performed By: #### P REG #### [facility] [address] [address] [address] Efren Parra Eosinophils Auto (Bld) [#/Vo l]Ordered By: Carol Moses on 01-12-2023 Eosinophils (Bld) [#/Vol] 0.0 10*3/uL 0.0-0.45 [facility] Eosinophils/100 WBC Auto (Bl d)Ordered By: Carol Moses on 01-12-2023 Eosinophils/100 WBC (Bld) 0.2 % . [facility] Erythrocyte distribution wid th Auto (RBC) [Ratio]Ordered By: Carol Moses on 01-12-2023 Erythrocyte distribution width (RBC) [Ratio] 14.2 % 11.9-15.3 [facility] Ethanol [Mass/volume] in Ser um or PlasmaOrdered By: Carol Moses on 01-12-2023 Ethanol [Mass/Vol] mg/dL [facility] Ethanol [Mass/Vol] TNP [facility] Comment on above: Test not performed Ethyl Alcohol Profileon Ethanol [Mass/Vol] mg/dL Normal [facility] Comment on above: Performed By: #### C HEMAL HERNANDEZ, URDS #### [facility] [address] Percent Ethanol Not performed Normal [facility] Comment on above: Result Comment: PERF ORMED BY: [place] [address] PATHOLOGIST MANAGER TALENT DANYELL LIVINGSTON M.D. Performed By: #### C HEMAL HERNANDEZ, URDS #### [facility] [address] [place] [address] [place] Globulin Calc (S) [Mass/Vol] Ordered By: Carol Moses on 01-12-2023 Globulin (S) [Mass/Vol] 3.9 g/dL [facility] Glucose [Mass/volume] in Ser um or PlasmaOrdered By: Carol Moses on 01-12-2023 Glucose [Mass/Vol] 107 mg/dL 70-100 [facility] Comment on above: ADA recommended refe rence rangeRandom Glucose Reference Range is dependent on time and content of last meal. Glucose of more than 200 mg/dL in a nonstressed, ambulatory subject supports the diagnosis of Diabetes Mellitus. HCG ( test) IA.rapi d Ql (U)Ordered By: Carol Moses on 01-12-2023 HCG ( test) Ql (U) Negative [facility] HCG,Urineon 01-12-2023 Beta HCG ( test) Ql (U) Negative Normal [facility] Comment on above: Order Comment: Name Collection Type:: Clean-Voided Midstream Result Comment: PERF ORMED BY: [place] [address] PATHOLOGIST MANAGER TALENT DANYELL LIVINGSTON M.D. Performed By: #### C UU, ADDONUAPLUS, URDS #### [address] Hematocrit Auto (Bld) [Volum e fraction]Ordered By: Carol Moses on 01-12-2023 Hematocrit (Bld) [Volume fraction] 47.7 % 34.0-46.4 [facility] Hemoglobin [Mass/volume] in BloodOrdered By: Carol Moses on 01-12-2023 Hemoglobin (Bld) [Mass/Vol] 16.1 g/dL 11.8-15.4 [facility] Ketones Auto test strip (U) [Mass/Vol]Ordered By: Carol Moses on 01-12-2023 Ketones (U) [Mass/Vol] Trace Negative [facility] - UrinalysisOrder ed By: Carol Moses on 01-12-2023 Hyaline casts LM Ql (Urine sed) 9-19 [LPF] 0-8 [facility] Leukocytes [#/volume] correc neema for nucleated erythrocytes in Blood by Automated counOrdered By: Carol Moses on 01-12-2023 WBC corrected for nucl RBC Auto (Bld) [#/Vol] 6.5 10*3/uL 3.8-11.6 [facility] Lymphocytes Auto (Bld) [#/Vo l]Ordered By: Carol Moses on 01-12-2023 Lymphocytes (Bld) [#/Vol] 1.7 10*3/uL 1.00-4.8 [facility] Lymphocytes/100 WBC Auto (Bl d)Ordered By: Carol Moses on 01-12-2023 Lymphocytes/100 WBC (Bld) 25.4 % . [facility] MCH Auto (RBC) [Entitic mass ]Ordered By: Carol Moses on 01-12-2023 MCH (RBC) [Entitic mass] 30.9 pg 24.7-34.3 [facility] MCHC Auto (RBC) [Mass/Vol]Or dered By: Carol Moses on 01-12-2023 MCHC (RBC) [Mass/Vol] 33.7 g/dL 32.0-35.0 [facility] MCV Auto (RBC) [Entitic vol] Ordered By: Carol Moses on 01-12-2023 MCV (RBC) [Entitic vol] 91.9 fL 80-100 [facility] Monocyte distribution width [Entitic volume] in Blood by AutomatedOrdered By: Carol Moses on 01-12-2023 Monocyte distribution width Auto (Bld) [Entitic vol] 17.67 % 0.00-20.00 [facility] Monocytes Auto (Bld) [#/Vol] Ordered By: Carol Moses on 01-12-2023 Monocytes (Bld) [#/Vol] 0.3 10*3/uL 0.0-0.8 [facility] Monocytes/100 WBC Auto (Bld) Ordered By: Carol Moses on 01-12-2023 Monocytes/100 WBC (Bld) 5.2 % . [facility] Neutrophils Auto (Bld) [#/Vo l]Ordered By: Carol Moses on 01-12-2023 Neutrophils (Bld) [#/Vol] 4.5 10*3/uL 1.8-7.7 [facility] Neutrophils/100 WBC Auto (Bl d)Ordered By: Carol Moses on 01-12-2023 Neutrophils/100 WBC (Bld) 68.9 % . [facility] Nitrite Test strip Ql (U)Ord ered By: Carol Moses on 01-12-2023 Nitrite Ql (U) Positive Negative [facility] No Panel InformationOrdered By: Carol Moses on 01-12-2023 Estimated GFR (CKD-EPI) > 60.0 mL/Min [facility] Creatinine Clearance (Chem 105.60 [facility] Nucleated erythrocytes [Pres ence] in Blood by Automated countOrdered By: Carol Moses on 01-12-2023 Nucleated RBC Auto Ql (Bld) 0.1 /100{WBC} 0-0.5 [facility] Opiates [Presence] in Urine by Screen methodOrdered By: Carol Moses on 01-12-2023 Opiates Screen Ql (U) Negative Negative [facility] URon 01-12-2023 , QUAL Negative Normal NEGATIVE [facility] Comment on above: Performed By: #### C BC #### [facility] [address] [place] [address] Dr. Efren Parra PROF 14(COMP METB)on 023 Albumin [Mass/Vol] 4.3 g/dL Normal 3.4-5.0 [facility] Comment on above: Performed By: #### P REG #### [facility] [address] [place] [address] Dr. Efren Parra Albumin/Globulin [Mass ratio] 1.0 {ratio} Normal [facility] Comment on above: Performed By: #### P REG #### [facility] [address] [place] [address] Dr. Efren Parra ALP [Catalytic activity/Vol] 58 U/L Normal 46-116 [facility] Comment on above: Performed By: #### P REG #### [facility] [address] [place] [address] Dr. Efren Parra ALT [Catalytic activity/Vol] 17 U/L Normal 14-59 [facility] Comment on above: Performed By: #### P REG #### [facility] [address] [place] [address] Dr. Efren Parra Anion gap [Moles/Vol] 17.6 mmol/L Normal [facility] Comment on above: Performed By: #### P REG #### [facility] [address] [place] [address] Dr. Efren Parra AST [Catalytic activity/Vol] 11 U/L Critically low 15-37 [facility] Comment on above: Performed By: #### P REG #### [facility] [address] [address] [address] Efren Parra Bilirubin [Mass/Vol] 0.4 mg/dL Normal 0.2-1.0 [facility] Comment on above: Performed By: #### P REG #### [facility] [address] [address] [address] Efren Parra Calcium [Mass/Vol] 9.8 mg/dL Normal 8.5-10.1 [facility] Comment on above: Performed By: #### P REG #### [facility] [address] [address] [address] Efren Parra Chloride [Moles/Vol] 102 mmol/L Normal 98-107 [facility] Comment on above: Performed By: #### P REG #### [facility] [address] [address] [address] Efren Parra CO2 [Moles/Vol] 25.1 mmol/L Normal 21.0-32.0 [facility] Comment on above: Performed By: #### P REG #### [facility] [address] [place] [address] Dr. Efren Parra Creatinine [Mass/Vol] 0.75 mg/dL Normal 0.55-1.02 [facility] Comment on above: Performed By: #### P REG #### [facility] [address] [address] [address] Efren Parra EGFR-AF SCOTTISH >60 Normal >=60 [facility] Comment on above: Performed By: #### P REG #### [facility] [address] [address] [address] Efren Parra EGFR-NON AF SCOTTISH >60 Normal >=60 [facility] Comment on above: Performed By: #### P REG #### [facility] [address] [place] [address] Dr. Efren Parra Globulin (S) [Mass/Vol] 4.2 g/dL Normal [facility] Comment on above: Performed By: #### P REG #### [facility] [address] [address] [address] Efren Parra Glucose [Mass/Vol] 105 mg/dL Normal 74-106 [facility] Comment on above: Performed By: #### P REG #### [facility] [address] [address] [address] Efren Parra Potassium [Moles/Vol] 3.7 mmol/L Normal 3.5-5.1 [facility] Comment on above: Performed By: #### P REG #### [facility] [address] [address] [address] Efren Parra Protein [Mass/Vol] 8.5 g/dL Critically high 6.4-8.2 [facility] Comment on above: Performed By: #### P REG #### [facility] [address] [address] [address] Efren Parra Sodium [Moles/Vol] 141 mmol/L Normal 136-145 [facility] Comment on above: Performed By: #### P REG #### [facility] [address] [address] [address] Efren Parra Urea nitrogen [Mass/Vol] 17.0 mg/dL Normal 7.0-18.0 [facility] Comment on above: Performed By: #### P REG #### [facility] [address] [address] [address] Efren Parra Urea nitrogen/Creatinine [Mass ratio] 22.7 mg/mg Normal [facility] Comment on above: Performed By: #### P REG #### [facility] [address] [address] [address] Efren Parra Phencyclidine Screen Ql (U)O rdered By: Carol Moses on 01-12-2023 Phencyclidine Ql (U) Negative Negative [facility] Platelet mean volume Auto (B ld) [Entitic vol]Ordered By: Carol Moses on 01-12-2023 Platelet mean volume (Bld) [Entitic vol] 8.7 fL 6.3-10.7 [facility] Platelets Auto (Bld) [#/Vol] Ordered By: Carol Moses on 01-12-2023 Platelets (Bld) [#/Vol] 275 10*3/uL 150-450 [facility] Potassium [Moles/volume] in Serum or PlasmaOrdered By: Carol Moses on 01-12-2023 Potassium [Moles/Vol] 3.0 mmol/L 3.5-5.1 [facility] Protein Auto test strip (U) [Mass/Vol]Ordered By: Carol Moses on 01-12-2023 Protein (U) [Mass/Vol] Negative Negative [facility] Protein [Mass/volume] in Ser um or PlasmaOrdered By: Carol Moses on 01-12-2023 Protein [Mass/Vol] 9.2 g/dL 6.4-8.9 [facility] RBC Auto (Bld) [#/Vol]Ordere d By: Carol Moses on 01-12-2023 RBC (Bld) [#/Vol] 5.19 10*6/uL 3.60-5.00 [facility] Serum or plasma albumin/glob ulin mass ratioOrdered By: Carol Moses on 01-12-2023 Albumin/Globulin [Mass ratio] 1.4 {ratio} [facility] Serum or plasma anion gap de terminationOrdered By: Carol Moses on 01-12-2023 Anion gap [Moles/Vol] 13.1 mmol/L 6.0-15.0 [facility] Sodium [Moles/volume] in Ser um or PlasmaOrdered By: Carol Moses on 01-12-2023 Sodium [Moles/Vol] 139 mmol/L 136-145 [facility] Specific gravity Auto test s trip (U) [Rel density]Ordered By: Carol Moses on 01-12-2023 Specific gravity (U) [Rel density] 1.020 1.001-1.030 [facility] Squamous epithelial cells de tection in urine sediment by light microscopyOrdered By: Carol Moses on 01-12-2023 Epithelial cells.squamous LM Ql (Urine sed) 5-9 [HPF] 0-2 [facility] URINE MICROSCOPIC ONLYon BACTERIA LARGE Abnormal NONE SEEN [facility] Comment on above: Performed By: #### C BC #### [facility] [address] [place] [address] Dr. Efren Parra Bacteria identified Cx Nom (U) INDICATED Normal [facility] Comment on above: Performed By: #### C BC #### [facility] [address] [place] [address] Dr. Efren Parra CAST NONE SEEN Normal NONE SEEN [facility] Comment on above: Performed By: #### C BC #### [facility] [address] [place] [address] Dr. Efren Parra Crystals LM Nom (Urine sed) NONE SEEN Normal NONE SEEN [facility] Comment on above: Performed By: #### C BC #### [facility] [address] [place] [address] Dr. Efren Parra Epithelial cells LM Ql (Urine sed) FEW Abnormal NONE SEEN /RARE [facility] Comment on above: Performed By: #### C BC #### [facility] [address] [place] [address] Dr. Efren Parra MUCOUS NONE SEEN Normal NONE SEEN [facility] Comment on above: Performed By: #### C BC #### [facility] [address] [place] [address] Dr. Efren Parra RBC 2-5 Abnormal 0-2 [facility] Comment on above: Performed By: #### C BC #### [facility] [address] [place] [address] Dr. Efren Parra WBC 0-2 Abnormal NONE SEEN [facility] Comment on above: Performed By: #### C BC #### [facility] [address] [place] [address] Dr. Efren Parra Urea nitrogen [Mass/volume] in Serum or PlasmaOrdered By: Carol Moses on 01-12-2023 Urea nitrogen [Mass/Vol] 14 mg/dL 7-25 [facility] Urine Cultureon 01-12-2023 Bacteria identified Cx Nom (U) ORGANISM: Escherichia coli (O:ESCCOL) [place] Count >100,000 Aerobic ATUL Charge (NMIC56) ----- SUSCEPTIBILITY ---- ORGANISM: O:ESCCOL ANTIBIOTIC INTERPRETATION ATUL Amikacin S <16 Amoxacillin/K Clavulanate I 1616/8 Ampicillin R >16 Ampicillin/Sulbactam R >16 Aztreonam S <4 Cefazolin S 4 Cefepime S <2 Ceftazidime S <1 Ceftazidime/Avibacta m S <4 Ceftolozane/Tazobact am S <2 Ceftriaxone S <1 Cefuroxime S <4 Ciprofloxacin R >2 Ertapenem S <0.5 Gentamicin S <2 Levofloxacin R >4 Meropenem S <1 Meropenem/Vaborbacta m S <2 Nitrofurantoin S <32 Piperacillin/Tazobac azul S <8 Tetracycline R >8 Tigecycline S <2 Tobramycin S <2 Trimethoprim/Sulfame thoxazole R >2 S = SUSCEPTIBLE I = INTERMEDIATE R = RESISTANT BLANK = DATA NOT AVAILABLE, OR DRUG NOT ADVISABLE OR TESTED R* = RESISTANCE DUE TO EXTENDED SPECTRUM BETA-LACTAMASES ESBL = EXTENDED SPECTRUM BETA-LACTAMASE TFG = THYMIDINE-DEPENDENT STRAIN MILES = BETA-LACTAMASE POSITIVE IB = INDUCIBLE BETA-LACTAMASE. APPEARS IN PLACE OF 'S' WITH SPECIES KNOWN TO POSSESS INDUCIBLE BETA-LACTAMASES. POTENTIALLY THEY MAY BECOME RESISTANT TO ALL B-LACTAM DRUGS. PERFORMED BY: [facility] [address] [place] [address] PATHOLOGIST MANAGER TALENT DANYELL LIVINGSTON M.D. Normal [facility] Comment on above: Performed By: #### C HEMAL HERNANDEZ, URDS #### [facility] [address] Urine bacteria detection by automated methodOrdered By: Carol Moses on 01-12-2023 Bacteria Auto Ql (U) 4+ None Seen [facility] Urine clarity by refractomet ry automatedOrdered By: Carol Moses on 01-12-2023 Clarity Refractometry automated (U) Cloudy Clear [facility] Urine culture routineOrdered By: Carol Moses on 01-12-2023 Bacteria identified Cx Nom (U) Escherichia coli [facility] Urine glucose measurement by automated test strip (mass/volume)Ordered By: Carol Moses on 01-12-2023 Glucose Auto test strip (U) [Mass/Vol] Normal mg/dL Normal [facility] Urine hemoglobin detection b y automated test stripOrdered By: Carol Moses on 01-12-2023 Hemoglobin Auto test strip Ql (U) Trace Negative [facility] Urine leukocyte esterase det ection by automated test stripOrdered By: Carol Moses on 01-12-2023 Leukocyte esterase Auto test strip Ql (U) 2+ Negative [facility] Urobilinogen Auto test strip (U) [Mass/Vol]Ordered By: Carol Moses on 01-12-2023 Urobilinogen (U) [Mass/Vol] Normal mg/dL Normal [facility] WBC Auto (Bld) [#/Vol]Ordere d By: Carol Moses on 01-12-2023 WBC (Bld) [#/Vol] 6.5 10*3/uL 3.8-11.6 [facility] XR CHEST 1 Von 01-12-2023 XR CHEST 1 V EXAM: XR CHEST 1 V HISTORY: CHEST PAIN, UNSPECIFIED COMPARISON: Chest x-ray 12/15/2022 TECHNIQUE: Single frontal view chest x-ray FINDINGS: Bilateral arms and breast tissue overlapping the peripheral lower lung, obscuring these regions. Otherwise, no discrete lung consolidation, large pleural effusions, pneumothorax, or acute bony abnormality. Cardiac size is unremarkable. IMPRESSION: No radiographic evidence for acute abnormality of the visualized portions of the chest. The patient's bilateral arms and breast tissue obscure the bilateral peripheral lower lung regions. Electronically authenticated by: AMAYA BRANCH Date: 2023-01-12 00:46 Normal [facility] pH Auto test strip (U)Ordere d By: Carol Moses on 01-12-2023 pH (U) 6.0 [pH] 5.0-9.0 [facility] Coding Summary.on 2023 Coding Summary. CD:[id number] Ww+PGhlYWQ+BM3ISREaA 09tzLZgxE9aO0OWFJhSV ywgQVBQTElOSyIgbmFtZ E8lyHNjIXVl IC8+JI8xSGQlOxjkrWQv s2U2aLR3R21hde0bFQrt qSU4GETjAvMgkhtpd7as uQr6VVpnHonqGwXd FGIlvO58GKJ1wR67Lc51 eQBhpJOqi2veeEh0JuQa FYClPEJ7jZgtZVmqy4Vh EKIyX13gkHIrk3M3 IGNvbGxhcHNlOyBlbXB0 yA4tEZaxnudbw2odpcmx Wgl2fd31gLNib6V2aZL3 M9ClhkH3YCJrqZWu SgqceOZHxI1hgwrbw5cu fjlzPcVqDBRmEDb2YOf4 HGNpyGfzPaUsOZ91ABG8 EKWhunIbR0ZtTPVp yMmmOjJ6t2N9Zv6IB5BV BmjmI8NRMHIFARurvWV+ ZV69zl46P5JwLngkIzs8 NUPiKKC4iCC8zS4v MRPyYIcok3I8jOX6F2Vy azDtaf3yk5azSUFqFSpw C20voYZcq1V1FLDwdGT9 XOIjxLtzFuXgwR08 Oyc+HWBbhDgza2BnWfsw q2bdl6kajIp0PyryUYLc xtOnnVwfNQU4s5KnDa6g TLPmkGQ6cLE3lI5u DcNpQpL5KVxsG798XxQn qCDmYykhC60iR5AyuIE+ MBAlHdo4UYAieKdnZA8a D7PbUGYhyhnaxJWh vWdmES9bNPMzhxdlRXYc lP0jKCAhO5f7ChUePjE6 DPkoB1AyNROotbzwLw22 pE9vQeToQbO6FOov E5DxogM0NKEukHEiZXbd ZUV0S20ul6G7GMIaYTHv XFK6pOK8yC4zkYxqurpf bGVmdDsgdmVydGlj ABzcDDgwC379ETVaaRif PkNvZGluZyBEYXRlOiAg MDMvMzEvMjAyMzwvdGQ+ YUHkJDA1mOyaKIUf aCLxZLysBs7sbDvsyVvj UL8zFAGvmmniENJkeO4m BSQycWRtpSxjEU7aYIGn uxcyw978UzZoFQB5 TPTrkUBqH8CmxL1vRfKh LPCzXMBcB7IfkROnJPqg F114NKyeBdH9RTSbfbBm I7RhXXBiyJoqOvT9 p3N4Nx5Ov3LbqiuuI7Sd uPQiYuIjRmbtYLq9Z1Yo PjwvdHI+KM55SKCwRH78 OSm5KJP4xOljMHia IZXmG5DjyK0iIxAvTTJo ZGRkOyc+PHRhYmxlIHdp ZHRoPScxMDAlJyBzdHls ZA1mEt4rHEIfYIOb jMvthUApJsJso7nmGWQt RMsrKT6ycJqwK9OztZW0 UUHwa4b7Qj54W68rJ0Ne dXA+DKRqzFN2yCI5 tO3bFtJbVuJ9FHweJ175 KnTdoSYrGgpeb6toh1ig eTn0ZpQ2JXOngbUwbXml ZBG6a1KdOh82H51e IHdpZHRoPSIxNSUiIHZh aGwcox0jjB3iSy4+PGNv iHT1yEF2vB4mSrLkYfS7 MTzsO243TtTqsJHm Pkyok4zcc0fyxOr3VkOu TWBxbsNttHixXNR7c3Np Xc49W2UyfZuit9DxEpl2 lg02gEVbi7Q4hPI3 W5NoFHLbwhluxDEvxGwp XZ2sIHYktpwgJXDsbR0a EWRaF1o5HiMtIrP9FNhb S0CwtnW3SIXqhCFz KBQpwXSLiW9hgrbmt5dq twelDzFqFMUlQFa6HIz5 IZAatRxiKzCqZZM3BdI6 DQI2uNBqyO4xcZpb sgsszQ7oThw+UDA5uMYu iVNKFW8rTbrekMJ+PHRk PWT2fPcuMNjuONOhgQ8z RJNbJ7y9KkYbCjE0 TTlmN3MgqaE3FSTqkBEt FGTdvDTQkW3wasada5ox lazyYyEfTJEpNQt3ASc2 LWFsaWduOiBsZWZ0 SxM6PBS5aRXqcC7wxBgx ljqmaI7xVqi+QmlydGgg EFW3DVx4X6RbTvn1AKHi sDhxRT5jzIGbRIoc Aa9fjGqsrOcoYM7sPNQe gbbpr063EwMjr1qkHAKk xAAsUTggEBN8Z27te1U9 QVLzULBmRWB2fTF8 bF2zmIucvmxhpBHetAve uzGvxGcvHSsnBDdoJ452 YTRsrQttRdMlBOv2W0Ms Xrt8OHBbxHxdGV6r kKGhLIoxGd6qmHbeyLdg BW2eCZPsjwfhy201VqKx x0ceSUQehHCvDMgaBVE7 M94kk4R0YAUwZHSi LQM5zXA6bS8rnHnykrxf bGVmdDsgdmVydGljYWwt ABxcK943OYAoaAywZbTs nMq5M0KqUfp3DCBh rMzsXA5beQRgAEmmJz5r vUcuiTojQJ8xMCRamayg n904PgLhk1lvTFDixXYv HWbhSRA0G41by2V4 BSRlAUUiVLV1iEP8vC1a bGlnbjogbGVmdDsgdmVy wMjaMTlyMOlmR120MUYj cDsnPlBhdGllbnQg NAfxQJc1H4JkKssjkPT+ GF13OMHlBV27aEBnfXGj x8ttnNu6BkJrLNBqZUG0 uIbqJFzsc6DxODGw A76wlHAsu2S9ZWKlfNey dGJdNzLlhOV6xL0hGHes awtbf2bgrwmjSvlbz2ri bu52mU65B72pRLxh ZHRoPSIzMCUiIHZhbGln fr6zgF7fPj1+PGNvbCB3 kKS0sJ2bQGYqUpY0DBsy H639UuRaaIIeFbla l8hrf5ishFq9YqP1AMCf vhLwcSewCYC3w9DoYp08 C11lEEumEXEkOHDiPLEq BMWuaXfxar0uiJ1g Ii8+QVEhrRE7dVH4nV4x GvOsJjS3AImrJ590ThHc bZZgIptnV55rS8FinSQ+ NRWiXtm2XCJrrQlr YN7bnYBlJQmcKw1rVPY3 AaJuVoFvCEkyO8KlORBk rcoluomwdZC4LUFxMIXx lO58Wu7qaDodTSHp gKCLqQ0slqxfj9lkarky MsKeYKAjCMj7HOi4WEDq vLduLeNiECQ2ZnT6YMD4 tZEekN4xtPvppywn nG9mL8PuSDHmwiefCq11 kL9wUaPsUaG9RZopQhw+ Nt5WWLMTOWIWFVZGRDBS BP36JT75qEQcq8P8 dEU6S6DyWLFbrydsarfe iXE3PBUcZLFnoF26tTSq EUxcKg0np7A4e077RYNp ABOpiM37Wg7bbIfs TDTxtEEAnY9gktenz8wg pxwfNjYmTCFoQWr5FNq4 YBKyfRnxFnHgWTR3SwJ8 SSB9oDKsxJ8opCoj gmdweW9eDid+MDMvMzEv LPe2PLjxaBA+PHRkIHN0 aRkwVIdgIDEpxM3zNOIl H4k0FzPgUnY2MThp T0UfEHVurikzRp77lH2m OoDtZiB7WCbuZ9CpveP5 MWXwoCHkWMocZED2P36x r5D0SCBtGICxTUV7 cNX1rW3mdYleonxwiESt dDsgdmVydGljYWwtYWxp H954WHKqfCedTdB0MPqv UPWaMI22DJ58cAMi f1A9xRA7D1PjAASlwotu dyoveUZ6UNJoJNHdfL48 rDGfSGcmUx6oi9Y3t018 EXDcVQMqjM49Pu4i zMauSGOxbLOSjI0ebiyf j6pwyzruCpWjJOQrKRd9 PYy2JRJebWqzXaVwVYD1 QaN4MSI0cXBpvS0p oFmsvztkdG6ySzp+RmVt IPfeVS07QR37vGUzp1N5 nGR8K5ZyXXErmifhhwjr pOC3IUZyWHSmnT92 uDIfETrtTf8ck1K4z315 EFXzSMVywQ72Ax6ljZqn IIJbjVQZoP6yftqbq1yr cjogIzAwMDAwMDt0 SLp7XINbcTsvUuVwXPS4 QcX2VNT1fOTwbR9blIgm zmrotV5nDmd+KI6pvpfk blM8RC73WZ66V3Up PjwvdGFibGU+PHRhYmxl IHdpZHRoPScxMDAlJyBz gQynFX1lUc0qYLUeGYIo mPeksOGpDhSwz0co JUHmPLdwNZ0mfRuoP1Jp kMS5ASRwy5h0Zf05E20k M8SgdXS+FLRzqHM4lGY7 iO7kYdXcSsQ6ZNse A758GkUjdHFjDnqcu9vv j3omyXl3KxTqFMIxiuUj dGqsJMA5r8DgQw15F94g IHdpZHRoPSIyMCUi BZHmwRrrdu1zqV3aJo1+ ULKnxKO6sIB1oA8eVdBf JtU8ZTqiI349YtVfpUEx BymkC41tW2AivOY+ KOAbEpk7QARkoHupEV8w qIWjTRboHf1mVFK4JkYp GnWjVTgjP3YkCTNgcsfs keojsXL5EJZvXORm oX10Tk6ylTejCp4fDWVr MTK7KVJpmZHvD0McaB8n QkTkJLAgMFIoJ1JxtRTa QKapY900YZenXnC7 SPEfxgHaT5AzNAJvgOqm GxH5x2R4Dw5TvUbtiEHf MU1kRpHnMVq9R0WcXpy2 OJBwpBntOV2oiLTe VSppEx7gzJvodOgxOD4h TVEsoqshi254GuEmp6zf RVLfsRGoFTruJTG6V26t r8G2OSXcNBGoMAD7 qYD3yY1kqKdqoiuczUPl dDsgdmVydGljYWwtYWxp O752SMJbzBzbLrDVKxz4 F0KrTgz9IQRjwSpt PQ1feGNjOOsaHj8duGxi xRhaWA7nKEAimrdau840 XeEhv9goPOVjaQTiLTjr QUV7E65ch5H2HZLh QXVdECK2qOW1xP4iwLgj bjogbGVmdDsgdmVydGlj NIczVAayJ322SLYmmBqp Ty7AOnj7C9ExAnn1 QGLmkYwiRI6cqXSaZVgh Ys0jqWoasBsrLE2zANJp fzwfw126PvBgh2dvVLMg aSZoAEkcLEU5C53r r7C3JEQxKYLtXXY1gAT1 zQ4vbXhcjymblUIleQxz tcLbuJoaSRhaQIneZ148 IHRvcDsnPlBheWVy OjwvdGQ+MH45nk96H9Mu FhrdGgw6FTXzCQG7cKY0 iC0hGWWyHOgqa4R9lYX0 I6QosiWhqw2on2om YXBzZTog (more content not included)... [facility] Consent for Treatmenton 12-12 Consent for Treatment [id number] #1.00CD:127 [facility] Discharge Instructionson Discharge Instructions [id number] #1.00CD:127 [facility] ED Clinical Summaryon 2022 ED Clinical Summary [address] [address] ED Clinical Summary Person Information Name: LORNA DEUTSCH/[facility]_[place] Age: 37 Years : 1985 Sex: Female Language: Mozambican PCP: Cris PENA CNP Marital Status: Phone: [phone] Visit Id: Visit Reason: Medication refill; MED REFILL Speciality: Acuity: 5 Enc Type: Emergency Med Service: Emergency Arrival: 01/08/2023 16:38:03 Discharge: 01/08/2023 17:58:46 LOS: 000 01:20 Checkin: 01/08/2023 16:38:03 Checkout: 01/08/2023 17:58:46 Dispo Type: Home (Routine DC) EVENTS: Event Name Event Status Request Date/Time Start Date/Time Complete Date/Time Arrive Complete 01/08/2023 16:38:03 01/08/2023 16:38:03 01/08/2023 16:38:03 Document Home Meds Request 01/08/2023 16:38:03 Triage Complete 01/08/2023 16:38:03 01/08/2023 16:48:38 01/08/2023 16:48:38 Bed Assign Complete 01/08/2023 16:44:45 01/08/2023 16:44:45 01/08/2023 16:44:45 Dr Exam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 abuse (Z87.898: Personal history of other specified conditions) Orders: acetaminophen, 650 mg = 2 tab(s), Tab, Oral, Once, Stop date 11/09/22 21:34:00 EST, STAT, Start date 11/09/22 21:34:00 EST, 11/09/22 21:34:00 EST lorazepam, 2 mg = 2 tab(s), Tab, Oral, Once, Stop date 11/09/22 22:47:00 EST, STAT, Start date 11/09/22 22:47:00 EST, 11/09/22 22:47:00 EST Acetaminophen Level Automated Diff Beta hCG Qual CBC w/ Auto Diff Communication Order Comprehensive Metabolic Panel Consult to Mental Health CT Head or Brain w/o Contrast CT Spine Cervical w/o Contrast Drug Screen Urine ECG 12 Lead Adult eGFR Ethanol Level Rapid COVID Antigen ([facility] [place]) Transfer Patient UA With Cult Reflex XR Chest Single View XR Pelvis 1 or 2 Views Medications Administered Given acetaminophen 325 mg Tab, 650 mg, Oral Ativan 1 mg Tab, 2 mg, Oral Disposition Plan Patient Discharge Condition Guarded Discharge Disposition Transfer [facility] Discharge Prescription List Prescriptions No active prescription medications Follow-up No qualifying data available Problem List/Past Medical History Ongoing ADHD ASTHMA BMI 25.0-25.9,adult Chronic back pain Chronic hepatitis C Constipation Contraception management History of drug abuse Neuropathy Paranoid schizophrenia Smoker Historical HEPATITIS, C Substance abuse Suicide attempt Tobacco use during Tobacco use during Procedure/Surgical History teeth extraction (10/12/2011), denies. Medications Inpatient No active inpatient medications Home Adderall 20 mg Tab, 10 mg, Oral, BID albuterol 0.083% Inh Vera 3 mL, 2.5 mg= 3 mL, Inhalation, q6hr, PRN, 1 refills albuterol HFA 90 mcg/inh MDI, 2 puff(s), Inhalation, QID, 1 refills Depakote, 500 mg, Oral, TID Depakote DR 500 mg Tab-EC, See Instructions, 3 refills zonia (more content not included)... [facility] Comment on above: Result Comment: Elec tronically Signed By: Chucky RAMOS, Christian\.br\Date and Time Signed: 11/13/22 22:18 EST Coding Summary.on 11-12-2022 Coding Summary. CD:[id number] Gh0bWw+PGhlYWQ+PE1FV VJbR14qpOTelR6HH2oHG K4NTSSTNQFVDT3GTW6ij JR3HMgvT3KlndZw YqoyuMPyGG78JWg9WCF3 bJexWYipxK9unZOkK4r2 KjNjHD96eJ26ZUxqTPBf ZzO7IaYiuwrqtQEu H4nwEiDxiRAyJlz+PHRh YmxlIHdpZHRoPScxMDAl AbSxxUysWF6dZj5iFSVs LWNvbGxhcHNlOiBj v5yuQVKsVMyeOC8ylPpa F2IwsYZ9IIIev3q2Uu94 dHI+TNDzDEP3uScmZPyp i285KwQmz1jrJYL6 ePAaEGoiTRE8D79hx0R2 QLQhICWkJBG7hLB8xG3h gRgudmcdC0JumOUmOuQ3 MBL2iUEqrQ2icBzo teulzU8nGfw+J54YMJ0N YSXTVP8GLda1S4XnTsxo dHI+PA03BDUqEL20zLKr pEUmx8nuzNe4SnLu JPQxKOF8qIinOZszq8An OYOmD15qfXAbr8H8KYAf kNoysIRuDyRsjBW3uV8i UDdjhpmbu6rgfonv Nredi8gxzd95oJ53R22t BBedGLLyCAT4TTHbBCNy qYspzv5umD8nJh9+IDxj i2rvu3mdlPu8KrGc ZFPrgqArrGfhFFA2e6Ky Og12P5QtnDghn8SvNfg9 ng05sHJwn8J4zNC4KBfy FVXkpQ5nZLqjAwB0 KNByQdUbsE18cNZkPFmv Ub2ijXeieEabXF9kPWZt wwnqBHEgoP0fQDQazEOu bShkIR6kUOYtrsyw r748BuXqIFK3MHWghHMp X5ZzfA3uBpDmYSQwWJZz O8OzrZSxYEppU503ULpm IjC1JUOgdhVeP8Lb ZVQvpQjmUcY2v6H0Ex3B x0DwkphgOTR0FYopZUNj QdCbAzRsYoW1F8WpXiq3 YSGgfDcfFG7pN8Gm RMRhvuilusmqaWH4DUMl OTGkiA84vWSiMGvkPm7k f2P5r140FIWpYVDpdZ24 Bz1gqKlzIUZlqRWJ oR1pzfuoq6ujvirrPdWn YNErTPt4RXy1NEVtiJam UeXvCXS8DxU1SQZ7tOVx eL0gkHlwlzvobL7i Oyc+Z09ecM7yPGJ1PDC6 wgbpMFCrueWpLM98TY79 E4YwOgqfqOUhnPE+PGRp dfYauGraRY4cTaCu q5nwf2FxAYqgM7OtKTTr PJrzLnk1SMRxPWJ6vIF2 uT9kGUJfYXrcb0U0wHL6 N3HcbxVvxr0wp5mv XTOyNEfaI75mwDLfe5I4 UPAftSC3RQFhxMprQdQh bJ34Wxh+BOChlPbud8Oa Odhmy0zqi4jmqCz2 IjMwJSIgdmFsaWduPSJ0 k6DvOp29T85aKQnaBCEq TOPrTGIvXROikRqwpi9i tQ6oFq0+PGNvbCB3 hHT2eJ6hIMPlSxQ2VAmx M411KhZqfILuLelvv3sc x4dbhOv7MbMbNRIbkjPn lEnxIYL1a7GoYf13 C63mAUoeXPRzIFYiVNWu JRXaaZqfuo1tlY9cZl1+ NF7qa5zvbu37yR23tCX+ FIEvRID0lQtjCCty DXNaxU8oLNhqBzW6NRZr VkVthW87uVOtIUnuDw5z wVvhdVlpWB6pWEJkzwuw y334PsLva2dcLJDy oVDkJTudTTH4I63co2K6 OQPvTCQwEUL9bLY5fG6c bGlnbjogbGVmdDsgdmVy lNmpHEwvEGnoU070 IHRvcDsnPlBhdGllbnQg ZjPpEGw8Y0WdXaq8OLEc cTaqQK2bjQTjFAjgXb6c iQgzxKlpPT8fXKUf bmvls355JmZoz5czLWQx fLYdXKjjIRE7D33zq7H3 HIFsLAPyEJA4kNP4wT3n bGlnbjogbGVmdDsg vsRufIcsZNvjRCsiW568 IHRvcDsnPkJpcnRoIERh iPK1GI04JD54pYPab2J6 gIE9L3PoCKOuuklf psiwuHB4EIQbNFPenA23 Ok7xrCwjBz3fAHSpVUN0 YVCsdOIpP7BmqE1bRrBe AFCjZUTaV4RplPVb BHskZ099QDxpDyC1DGUc vzGnP1SxUEDuoOnwGcM1 y4N4Zi6MY7Z2IV54JY05 qCWxd6G9aCE6Z1Mv WASjbenlcyytvPX9OLZx BOVjnZ56Ge3jaTmaLz7v OUKvNUD1QAKspUByK5Md xN0zDjVdRZCoBKCw O9KjjIEfAFbeL160ABtq GlE0SYEyhfSpE1AtOAUm eAsmNyO3g4W5Ly7HVEt8 BP79BO71eSKkn2A3 hPY9B9GlZRXbcumtniog aKD0YCVjZENjwU85Vi0a dSvfKc5xVLIqMOF8UGUb xACbQ5QzhH9oKmTt MNOpTILbE9GrkYKwSHbq U123OUxnOeZ9MXKtmcVn T2LvDJDjyEcfZaR0n9G8 Bn8ODRXuAC42TKN4 mHI5OI82YH10Z1IhGhho dGFibGU+PHRhYmxlIHdp ZHRoPScxMDAlJyBzdHls SF8hWv3kQIFcCQEg aBxniDTcFyIup5ykLCPv JZguHO2paZgiU2WdnTQ8 NEQpb1a4Tc42U98yL1Vn dXA+OMYsoUO9fPS9 cI4tVsRlNdE9HOdcW416 CdIuhZDwVivrt8lgh9mm sXk2BjX1REYwkiBghJih FUS5l1WyUz80U51x IHdpZHRoPSIxNSUiIHZh mVboqm1igR6eSw7+PGNv hOR0bLQ8oR5zPhIwJhY2 PHblQ961NgGjqZJe Gdnrc1tfy7bohFp6XsWt GYJkmzDfeChmLLV4n5Kf Yq49R3WqsDtgn0UtDzi7 pl83vNEbq4X6lQM7 P9YsZABnctwcqFQomJtb ME4cYDEcagqmVQUfsU6l SUMyA6h0GvMhIkV8QFzv Q3RospM4QQZaqYAz LYffLMB1J00id3B9EPHk GTCnGHR5lZU6pJ8utVxz bjogbGVmdDsgdmVydGlj WTdkNRbiE104VENt qJccHMFkgW2lTSMwbUMq rDamFY9nOYByqufyGpRH U9CVVmmkOIHKZtheXXzg dGQ+MPRyMOV2fUkb DTssAZXyxH9nYREnG8l7 CyWmXsR1QJawL9LlENYs nssgWo32bQ2pElCfWoJ3 WDlqY8AjoaF0AUQy aYAoAYayYDT1M42mz9E5 ANKpFXKpOKI8fVC8lA8t bGlnbjogbGVmdDsgdmVy iRbiPYgcCQcqK798 IHRvcDsnPjAzLzMxLzE5 CSP9S9QzStw8VGAuqXcr CX2ilDCeKJkmFr6qfEln sYrhSF5eLCFxjgvm RMOtsF8tWROvkAHxqZij TO9vFGBcaprzg602RpIo FZG9TJOqeKUxP4JwaR4a YkNmEIWcUFTcS6Cy gJIkKAcuU932XZmiLxK0 MZTsiaAaN5BqYLSqrHac CtM2m0B1Nj9oZeANMKHz czwvdGQ+PHRkIHN0 rDcbZHboUQXtsS4oADUm Y1m1ZdYuOeN2THlxS0Ev YSTwnmgrNt62sP6gCrVb BdJ4KQraQ4IaogR5 BALeiOPmWIaiMBA7N10b s7A2DSOaOWNnKND8pJT1 bI1wtJqlmdjtlVJbsQck dmVydGljYWwtYWxp D416OGKcjVzfJjFxqJCn ZTwvdGQ+DZBxCDK4kHrr TCpgJYUauO1aHZJmM4p9 CmEsOlN9IQmpI8Ew UAApkqxvQh45rF3kQlMk NfM9MAwaQ9ZxblE3AZAe qLGwHOxxGDI2L85bg7X9 DCMqKEKvRFQ9gYN0 qV8mnOnpzixamVSzaVtg zxRazSguEWpbOOcxR559 IOKdlNfgSdPeNSPsXJ1d eTwvdGQ+WL28nl89 H9PxSncqDhs9RBUiKSG4 xCO4eW4tBWFgIKwiw7R9 bTE3L0OwsjOtak5ol7rd QUZpXIprL34fmFOw j0V8QZPdsCK8FQVktIvn SlZrbM53Cby+PGNvbGdy b4HjCzxea3rdr2pwbCr1 IjMwJSIgdmFsaWdu UCH4p6IlGh14M58kNXih ZHRoPSIzMCUiIHZhbGln fy0iyF7cJq7+PGNvbCB3 sMR4sX2wTkSpSsL2 IIxhC013PkNceLHzEbiu k0pcq1afeGp9AoBnOOLz xgWetOymEUB5s8UpPm81 V7MmmTblq0MnTnm9 zb35wZVbz9U3jEK0Z1Yr DEClncdwtHTsuFcbQD0r ILQslcdwMFEdyG1yRJRt L5g4XgWkJuU9BOok Z0JcqfL2UWXpeZQwWIHj gTEEfJ5tksuam9pspawi EnUjYVWdDOd3XOv4WYTm vIwtQrDuFVI0JtP2 VTZ6uRSsuZ4eiYtxwqyu oG8eLab+GWm1f3eemRFb EK5rxTJ7IR28ED72wNFd f5V8mEC1K8SuFPAs mrwktcmccTK3VETqJLWf vF54Ng0vgNviOy2nZKQu JMV6HHTbrHHuA7PejT7p XzMdTWCcDZZmF0Dd wRYpVNudI756DRncElS0 PLNnijWsW5PaOOLucZko QsT1d0T9Mp3YCQ72TO37 ZL85tJWuu5P8dOL4 E1FhVBCdwunlmvpibSD6 BRDlADBouD36Qd1riFge Cl0kQDYhDPP6YPMqnXXh S5NtjQ0wSjGhBVDj IUHwE0TopUQrIFjkF915 NZisGyJ0IGSgqbQuH6Hj XZGiaLnzFsL9q2X4Mr4Y Zz17FE89LA96pZTw g4B9rCK2J2ZcLFMpuqbl gghvgWH9SFKaRADkpO78 Tr7tvGlcXd9uMMQnLDQ3 CULerVSmF0ZzvG7c FqYuZKJwZCVqE5XbeUZc WBcbC983XFqtAvL9QOFh mbRqH0AbJSTxfBdlOyM7 s2K7Up6XRPudhuw2 P2BnRmhjtXC+EQ48KWJv XS59jOWgiYGcu8nsnJn3 JcTwWJAfGDR4kConWUnz q9SgWFKbN27ooPSz c2U6 (more content not included)... [facility] Discharge Instructionson Discharge Instructions [id number] 4#1.00CD:127 [facility] Comment on above: Other Comment: wrong folder EMS Documentationon 11-12-19 23 EMS Documentation Please click on link to see report pdfCD:[id number] oMbIVOpSjd8KFUnRbEYB dLvsJUVdkK15ypRQmiPN sHPB6QUFeLxC0LOUjKWT SIDIgMCBS KDhfDcAkYLNnFQS2ISCm Au2zF9WbkSItpKfpHmSv YI7uWUNkJt9xUMi5Vw8w PK4Zjx55qOB3DRhf LHRWY2tIVSt5DEPrQOFy HNGrgWELy3raJN3xJZEz RIA0NWCgRBE5IULeMZ1f PFseDX4bN3CneuWf vJI6THXkRVWVA5Kmf944 xwDazmv6R3IneB4cU6Zk F2O9OT8VYmHzZXSzYZJa Uj4+Z8StzgN0JP4D KNPaDCF4GJOkZk8LJLTw ITA9VJJzUk2NVPQwNBN5 PYBsOl0BADOvJgMeBINi QET0FAcbEVYSDt6j JJQwX7WolRmgUILTE6Oq gZJaH5T3fKdByUA5NSK7 JIBnPRPGU0wZPvaxM7Ja OTAxIDAgUj4+L1Jv dYP0DTZsT9R9dcTviKYg zpGgwKXlTK8AsCAyD1Om N5FeKCTsfy9YKz7RPQ2p j5JsGrSmYQVnOvkM VSilJCNqI4ViXFD8KDV4 Fa8wjYSlMW9TJ2EDIJNl maYbIGXyN57TXOCjUjE1 WHI8YL33NIKdJQO8 UQKrCzGCKOIwy7YjIqMl KFmpLGU9UzYpMJQdDtKg hgQTWmyrIIM3BpgnKlRz VE69XQTvAt66JRCb ZMseKjC6CB0uXDC9Ilue RjEeJE73CCCwVz05COYi IRnsYkOqAJgbFY2oLXA9 NzYgLTAuNzUgcmUK OukhURG4SFIrCaTfXMn2 QZ1oYyi5AXDlUeDUBFMn YtB3IeI6ODTtEiPwIVKt BhS6OKNoXhDPKDl2 LdI6UMjwMJ6lEWKbXny6 IY3bXj4fJDBsJNhvGuUa MWP7SCAvN63ZWJDxKbZl CvU3QzFtMrw2HyJ7 JZ2xYxSrHFqtCpNbQRGv ddblDO39MWF0BEVuYlQk Ekw0MbW1PB6wUhk8GJVx IzAVDI26YHmoDBBt shujPQmlVsE2DmOtAnl9 SbQ4HX7xTcRcDSlgHwYf TNDynpevJAefUtT8SbF7 QNS1Oj2qQQEcCO22 JEAvAGjtNoRqPBY8WjM4 NzYgLTAuNzUgcmUKZgox MCE4LoQnQhVeDAp2TL9g Gcq6AZPeKgRMJBIc Exo8BDXvQzEtNZAnEIVs LxNTOEh2YzQ6EVF6KrLr Jec3PV4bMMLgDOdoCyJi TWD2SRNwO47VZSWt ErUwDcf5PuD7MQJ0EW34 AN3sUaPnOBlpVwYdAPTi cskaVB87ZMI9CYQaDAh3 LjUgLTAuNzUgcmUK VcutCZE7XsCeQNc3ZA0e Sqm6BFNyNuXXZTAjTaGd PvB5OHP6SmYhWG36WRXd KQqwFfPzMVG3SiCh Fux7QY5mKS13GPIsXhFH FIg9NiD7ZFB6ZaSpAce8 PL8wWJ35RLUrZqXNCG27 TEzoSZQwaomeRP93 YAU2EuUzYiUgTKs9DdGm MZXvSHQqYpQKWNAhq6Jx QfJhXfy4DSI7VET0XdRe VKBuQR72OWGyQQuy ErBwAICcZf40GQY8BhXv QU50VYAxHWyrAiRxVDW1 Po40DYJ6PlEpUQThVeOz cuGPJdmvHYO1LpAt YTJpAiv2NG92Ky56ZHCr EmPIWUx4XaB9HGEfKl11 XASyXcPvXTQ5ElEbztZD DrqmIegaNHWhe1Iw QyLtFpj8GNTdCN69MSO5 NzQuNSAtMTIgcmUKZgow UQUcZ52LXBJmZoJgYrGa VnLePBt1UgFhHUFk ZvAtmlHMCvadSAJ1KDjt GkKqSQo1HJ7sWqj7CTLx CmYKMTAgNTExLjUgNTc2 GQ0vYcd0MQMjTvWT QXRyTOK1YcG7KXMmPnTj UCR4ZtNbqwYSBqn2VAJm DgPqORR9YqY7KHBhVsYu HWJ1UsTrrySCIhhc ItmlREVjr5ObSgUjRjx8 POD3Yv28XDH2ZT81HX1r MiByZQpmCjAgIHNjbgox RE01ADW1JDKjHmXj PHu7HrLwWCYwIsPdszNJ OrwuHvxuPKCzt0KlDaN1 AJEeRQZ9JsXgTrTqSTLk LjUgcmUKZgoxICBz U09HDGVwYCjjZtIlUeYe NzUgLTQwLjUgcmUKZgow IanjNRQzl4EtLaQ3MDQ3 DB31JKA0Juc6DA16 ZT38YJLeChYZTWDed6Bt YxRxOhb6IDZ8CB79INQl Cd18EY5jKT8dRUDfFYxd BwYzSPI9VSGjB05U NTIuNzUgNDkwLjUgMTMz DuTcPSVvFrG5BDIsHgND FIUkv4RwBkK6Ct0yLAV7 XYRcLXUyPU8zFCFw MjAuMjUgcmUKZgowLjkx WTZyk9WqCfT6Co6kVBU4 FOEmCJYpGF4yAHQpSsQu MjUgcmUKZgoxICBz A14NApR7KwSjYQxwMvUe NQUtOeQfBEFpInM1LWOx QgAHKJ55NOxtBGLutsrp CQIlYRV6IUGzUUI3 Rt1zQQXxCnBiZoUcpmTP VxwaFGGdT58XWkRbSqg9 OFX4NJ52VSHoRop6NR3h ZP6oQGMeOAfoAjUh FCR3GQNyZ91RTtRdRyp3 RXA0LL25FMNjMxt6NO9m DM6iRSYaUIelGlViSEVr uyzfJOQxZRL3ELHg FJZ2VpXwVaXbOpGvpxUX LdzgIohiEEMxf3HtWiJj NR86NPW6ZI10WPNuPW5p EM0gLDMmUPszHdNg EGZhunobWXvzYRR0GIUk KPOlGK10YZ2lEL7zZUDo GRuwMtYjQWS0CZGhH84J BzX3JrNzHRtxFsSu MjUuNSAtMjAuMjUgcmUK NcxxKJXmH96MZvmgMSD5 UP65UQLtEq5uEGAeEzJa MjUgcmUKZgowLjkx HUXzw3CyRlR5HgK9OSGo NSAxMTYuMjUgLTIwLjI1 GONpJxKIRNJpb3PfTeD6 SA4qWDI6ETIwAMVa CF22EQ5bAB7eTHRsOKpy JrQnWXQ9VLBfG36JDQe7 AjI6NJH4SY02AJK3FkYq CKAlYfK4GVNsRoVE ZARcr7OwYgJqOy33NKW8 BOVbFRP2WI65WSYqFaGw MjUgcmUKZgowLjkxOCAg p8JiEnFcQo39RSW5 RIKrKBZ1WB45CTVhZrCa IxYxxmRQGwlmTLOhI27G COH0WgQfEYouMdSoYF26 NSAtMjAuMjUgCar[facility] HospitalOptrDilrVZEph5HjHmU0 VV50AQO7XB49CKlvZsLd HBQkBlF3XIUjOmDSOZLa o5QkXjUbYzy6UXJ3 IY6tDAVzJcRaRCJxAqTs MjUgcmUKZgowLjkxOCAg f4QiKiEwJmu2VPL9KJ4w NSAxMzMuNSAtMjAu JqXfjfFZZyqkZLQgX90N ODd3MiD8KPL9HA3gSTNp OS5fYMNvJsBrDcYgypXJ FwbxYhtxLWIjs3Sj VhA8Id6iXSN4EfMwAiOm IpVuNgNdBUPxXsB6ETLc UpMLFUPli8ZvMbWcFl63 GPJ1WP3dPRY7Ny4y NSAtMjAuMjUgcmUKZgow ZmbdTLSba8ThIcCuMc44 JVK5SW1fPDU2Mk6lOHIa MjAuMjUgcmUKZgox WKCdD90IGpCzWlf8GVF7 QG7oHQM0Ri81ODYxDfDk MjUgcmUKZgowLjkxOCAg g0PaRsE1Ro26XIN1 NzAuMjUgNDIuNzUgLTIw BfS5NIEsZzBDECBje4Ie JgByUL59EZO7GS8lJZE3 MiAtMjAuMjUgcmUK KhwuIwbnARCvt4KtJaUm JI29YFT1ON9uMCE3LbNa MjAuMjUgcmUKZgoxICBz R20PYkT6GxZdOZvd KoM5TQA9YeOcYVRmCjZ7 HFMoHiRMCV56QLgvRBCk pifyBYceGHZ9IkSdAlJv MjUuNSAtMjAuMjUg vlHGYamlMCJgM92BMovl IHY3UX8cHMLuHYFmSgJr RAYbQeS9ZEYmSfFNTE72 MTggIHNjbgozNzMg XWidSfG3FRHtVk4uAAEj MjAuMjUgcmUKZgoxICBz Z07IVQh3LsD0RSC5ZZ1z UBQtXZ67VQ2eDD7x VZYpEPutSlEaLWH5MZEy D64YLLr3OsR7JIB6WW6l JOPxAK37VA3pSE8vWMRl ZQpmCjEgIHNjbgo1 NMgoSaErKPgyNhQ0FNHy PrLzFKPaWeC5DZEeHcSW BF16CDyzARHumzk6NEhl WpAtWXnrAyT7RGNd QmJeBUEoTkP7YQAjUyFR BQWfp0XwQtS3VV4aFCA2 NzAuMjUgOSAtMjAuMjUg cmUKZgowLjkxOCAg k0TrZaJ6VV6vDCQ4ZxFp MjUgOSAtMjAuMjUgcmUK XnmkFbI7TIUyMmJjSjDl LTEwLjUgcmUKZgo1 Qj52BRY3NSNtGCV6EaPs LTEwLjUgcmUKZgowICBz L15ZNWBnFTZlATS5XDHd UN10DJEnBUwuBgY8 EMLuYTSpBwn9EI1oGZ7n MQQbSMfkSjU6FG6gTUX5 PWKwLG65RTWeJQFrXnAj qbUMIqc6KbyrLrFk RPiiYvGdPB47DCIxRnLv xdMISiz2BhlnYqXlMJim VyF0MTYoLnIeCWFmEMPw OcSIZQe4TrB2VMZ5 GJXzPht2RJ0sJM3yMRZq JJztPiZ8XURrMV30KGVg SgNaBLCyEaF6SUBwFtWP NRa2OqL4RRJiEK64 IDAuNzUgLTguMjUgcmUK Buh2FqszXvStGEJnWpX6 WNMnCfZbGTN1BNDyGuSG KRKjJJH7VdG6YJXt NzUgLTAuNzUgcmUKZgo1 WjhfJtHpVQS9BqC2YKNi NzUgLTAuNzUgcmUKZgox EnL6XCDaMhIpBS24 FEGnXD82KYAuKZubShQ6 UU8iDNA5AEDuNkJqTJ70 ZAMqZP74KIEk (more content not included)... Normal [facility] EMS Documentation Please click on link to see report pdfCD:[id number] xLjQNCiX5+prnDQolQUJ LhTTdCEFzJbP5GWmgBDK cPN8xfl4SGXwRA6ZaZSN 6PuT0Vl1R DEpeFXj5VUE0E77FY7fm DUdrSAO3Rj3TwO8gFNZo mnKiPMOHO04bKedrAiYr MQovVCAxNzEwMTUK Yy9eASUbOAJaFRFhUGCc ICAgICAgICAgICAgICAg ICAgICAgICAgICAgICAg ICAgICAgICAgICAg ICAgICAgICAgICAgICAg ICAgICAgDQplbmRvYmoN Vy6PjWXuTm9EALxzLmFW CjAwMDAwMDAwMzIg WKKcQKShrn8AWWPrENZj HMO2BRRzBPVfEWZzEDnp IYWiVSRmAGl6PIFoERJm ZC4SFjAwGDWvQPC8 DKOpNLCjNPWmth4GTQNb MDAwMTkyNyAwMDAwMCBu QHyfEOBmRRBqPFk8ZPJx PILpKU8PXqJnLEFy BLBiTlAhITFnDFLqgv8S VNKqGHRqGhT6ShLmQMSf MCBuDQowMDAwMDAyMzky GGOvXZTaNI3OYpGe YBUqZTE2NZSlHRFdQGKs oc6JMFRaAUCgOmw3IxNo MDAwMCBuDQowMDAwMDAz UMQ8NEMgMOVrAE5U AhAaRDXaKGR9EiPrLFVi JNGiru2PYATaZQNcYkAr OSAwMDAwMCBuDQowMDAw MDAzODYwIDAwMDAw TY6ELcPuRGUtAXKhPRCy FLXcUYAzpy8WCLIpPBXi NJT9PIMqHCWmYVTdJSvb ZQLhDLL5BuI7EHMu GVXiOW5JHjEsYZLlAOQ4 MQHdBMMjQADwef5DUHNi TVCtFBL6BtWtKRZxJXGr QSgpAYMiXQJ7LTR7 OOVcYGAhGQ3QOsVtGMTs MKV3YDCoNCMvMARkao7F FRFrTMQlLWL1MSOeTTYc MCBuDQowMDAwMDQ3 BgX3KUYhKVHhFI3IEkMv QOVwQAZ4BKGpYTNeTMEo rc1LfYVyaOsbav7TQQdP Y9sNREa8CMBYEIV6 AhG7SDT1XOySOaYiIaab Y6W8UsV5JKBSZrY+Cjw3 Vwb6WII0LwBbGPHmEbME B7O2TMKMBDF2AhEh BLR1QO2kGm5EqkV3BRG0 DEKrCKlkLt8evEGbWHLl RKIIB5AkciOnSORRW9Pr dPDrXYLwW5CGXQQ1 Oc93NscxbOnGIMV0ELHH VBhoIS1VQupXYmAzTIep Zb90O3VOo2H5UeMeS3ZA mOoBcyQXAOwxW4qG rFG8e8gdxTyEvKOHpSix OGdJcndPalFSQUlqUHNX rO53whdMK4OtLGx3G0AT Rf7JSWpiIfBkwW4P hIzcPXR9kQ1gTWMIWKuN FnkyCR2LWLMRAVx6JOe+ PiAgICAgICAgICAgICAg ICAgICAgICAgICAg ICAgICAgICAgICAgICAg ICAgICAgICAgICAgICAg ICAgICAgICAgICAgICAg ICAgICAgICAgICAg ICAgICAgICAgICAgICAg ICAgICAgICAgICAgICAg ICAgICAgICAgICAgICAg ICAgICAgICAgICAg ICAgICAgICAgICAgICAg ICAgICAgICAgICAgICAg ICAgICAgICAgICAgICAg ICAgICAgICAgICAg ICAgICAgICAgICAgICAg ICAgICAgICAgICAgICAg ICAgICAgICAgICAgICAg ICAgICAgICAgICAg ICAgICAgICAgICAgICAg ICAgICAgICAgICAgICAg ICAgICAgICAgICAgICAg ICAgICAgICAgICAg ICAgICAgICAgICAgICAg ICAgICAgICAgICAgICAg ICAgICAgICAgICAgICAg ICAgICAgICAgICAg ICAgICAgICAgICAgICAg ICAgICAgICAgICAgICAg ICAgICAgICAgICAgICAg ICAgICAgICAgICAg IV1Cf1EfszM8zsNfPYoi FCqeDTPCZg1TYDsgCDPt JY3ynd9QWJmCM70yzGGk UPUsFIC6KRVqNyar H0YpiaMzwIzbnuFxKzNn GFXUSi9LvKYPLDlcU2U5 mHrtGXZdLEHcCQPHXq8C XAgdGK7wGTCfKDPn Qg0qEKkgVQExCGUuCPYa TCIEZm8NgKMjNC1GBYRf mQ7mYj0+DQplbmRvYmoN Xw3DYhIpWMJvCnxG Myi1Ps8KtDz3XVVzE7El WEWjFUImh5XjNy7FEY7h dMktPODyYn1SXCC3Bs1+ NVpqxPVcZT2DPoys C6Tg1WFtOYRjOMAb+Lof RMKBAhSmANkcEKHlqxhQ HLIgtQdVrRBzS6Ig6Ccv ES2NaJrFHHUOHLgW kP3pAQIuLRauOB0ZqQmF lDszMSJZx1N1AmJhG9GP J14DMBCoCc3qGoBnV3ZY WYA3gkATMMsyndAs rPChDY3VLlYsHI3shm9A GIasXRNpSE0dko1BCGxJ M5SjutVbzqRzBEmuFIDl KJTtOt2OGULiYLCh kMDfAOQdWNWeNpO1CWYm Mz2LRLVghcRhJHDvGRRZ Qt6LMMRdlBExXFPkFScL Z4dZGojwU3EeEBlI F5pkLhK6BSXwTJYzFip+ Pgo+PgovVHlwZSAvUGFn ZQo+Yn7ZRE6lm0AaWNtM DvIrLVIwn3MpBLr2 PAovQkJveCBbMCAwIDYx AhW4RUSvJy9HuHm7QUPi O5BxPAVfSIUli6QhWh3Q LU2zsZxoIeVQL3Xk d944foLvqxP2XDciSM6d ddGgoMN1BJqvBBMvDrWw MzkgMCBSCj4+Cj4+Ci9T iUQ1mYFeAL5Kg6Cy Wd2LcFPsXL5AN1QwDJB5 Cj4+JXsxcFBuNT9RXjie l8gw4Hxx2QX5NPPDLBA9 ZmL7DZKrWhIjXwxX 4+Rm4QV5KPLaUfYRGZCy 5JwsZxbyVZzDG46qBAkR GMZzw0qdwMdHIMnKQUUn SlGYYcAvMJR6lmGa oB3HNP5ot2NlVCfPIpGw EZFqu1DjUHt4QVkqDl0z T43mdy0ywKdyZ6HlOOaf TEMgMAovTEogMAov WLhmFjasLSvxYRvbO7Cr dIU7LHezZ0XoJIu+Pg0K FB9bu3SqFIvYTeR9DMDe d8BjBRo8CEkpNr9q H11pyo9mjWunN7FnEKre TEMgMAovTEogMAovTFcg VOwxVVigEMtkG9AupHC6 FYvyN0SkIGr+Pg0K TD9ax0SlVOcLNlS7HYYq c0KpDKu2PUoiZr8uP91x rz6sdTqxJ2MxHWx+Pg0K JD5qo9HxWDdHQsX8 BOZva7UqTLh5EAixBnIx DBPontTfC1NJQHYWIkiN b3WdhCDzWwY8NEWwUc9b VT4FVw0MAWZlMM2p GC17Nw1btXWzPeF9WIIz Ck5CD2WgN99laH6pDS8T CGRdfQx6lA0TRd7WoBU1 gTMgTN9MhDDhJQtm YX1Dwnmtu1RkHUV3UCMo WaufURbdYCNtDe1kaFg+ Hr9KNH7mc5XgIFhMDwS6 TPZzo6XyDOi9DGmm BpDlFEGwpbGtW0UGZRHD JvpKl1AeeHIaBpA2GEFd Ic0mDA0NDl0EYTCHhUG1 SM3ZuxSwBOv8Em5V cmRlcmluZyAoSWRlbnRp xGbrJb1SMGshr2TzeBWe URFmXmIrVh6LrPJqsQMc TA86FCDMEe8XE8TY WVApG6hCNQDmID1LARXf yQa7uTtkELocDMkuXy5f yLQgy9LyyKQ9o0DpLryl ASDAVd5TeAD2oJEu BS9USOZQi308AUjhKVIQ H9M5bQExZ6RzhsYLL0xy JrZzMQKyXfWlZsX2FbM9 XQo+Da4IIK5up7Gd GDhJOgY0RQWqw9GfLTt9 UZceMIKdHG53BYfgHa49 EHf7GsphD1NqYHXaO3j8 WTW4GA17VDL8JDcc LVJxM1EpxUVjZKLdCzmz TFtGQ3MbSBhmZGN6Je9S o227AoIqzYRaVDR8VX26 ZQQ2KbJlEuEwFrP1 EADhFXmoOU73HqXmLwOo WsNnExV2ABCiEPmvIw5k dEZpbGUyIDQwIDAgUgov Iw7qsS6ymWGfR4QJ UUDVXeoYq6NqdGAoAiD3 UOKwBo8kCX8SPh9BqDDc vLSKpcwzAMFkDy2AmMEb JeK1Ob4xMiC0FLgz HCtnGJIwBa5ifTEvm1Bw rZJ2d3ZLAh0WBaGzYH7e qs4FBHalAIYfON6son7B CJqCE2IcrSAujtGs YhxupSVNBTXmFNKGB8kt fch5cKGnMvhZEj8WOeW0 tuBcsR4BzSdqmp3xqdTF xd/9FHncHooxareB BY3v0UP+TFdORPQzE3hT on3w2y/l03DvAAFvg78t yWouPy9t132weqifeqmE XW+Sr2e4u46zXBnl ZxoBxvnyWoPVP90X7lF7 pfHCUMmumUlMaDeenD9x F3JdvucOex/iN2/I9/Yk 6l2wNakj8OqEKKMr MnCePZm1dDXFdhp8HRQl tqlNWO/nZROYm+NzcSQU 5fYy6lKaabVupIiXHENh qRTHgxIUrCb7t46H Onb6u/XsToNbSiVLVluo sXSIuAHPf5ZVVz6d7eWx kX+Bt/0l8FaaZX9vmPyY UNSAOtNEqGtqc4BO VDTwDGTGy7KzOlh6hHEd MSGNwlU8z2OGJkGlPZX5 tIWqHhMo5Wr3GecOausK l1t/59r2a6/02fvQ Jn4b3J+1M72l6/Nxo1up iy3WFEqwQx7AHJ1dl5Hv OEHsLWdsxqMnAcqKJb9O MzAgMCBvYmoNCjw8 Fk0ZSQXgTp3thXMoAovX IRtLP2MsnZEwSIQPTOkT E17FWt5VIEKxGE6pXG76 Db3rtRGqYkEjMIYd Hq1VS6EmY51rlA6pIU9Z ULPruZi8tT1UDe6HpDX9 mNTkTV0DlSCy (more content not included)... Normal [facility] Outside Recordson 11-12-2022 Outside Records [id number] Normal [facility] Acetamnphn Lvlon 11-10-2022 Acetaminophen [Mass/Vol] ug/mL Low [facility] Comment on above: Performed By: #### 2 [id number], [id number], [id number], [id number], [id number], [id number] ####[facility] [address] [place] [address] Auto Diffon 11-10-2022 Basophils/100 WBC (Bld) 0.4 % Normal 0.0-2.0 [facility] Comment on above: Order Comment: Order Added by Discern Expert. Performed By: #### 2 [id number], [id number], 8027859, 1492773, [id number], [id number] #### [facility] [address] [place] [address] Basophils/Leukocytes Auto (Bld) [Pure # fraction] 0.0 E9/L Normal 0.0-0.2 [facility] Comment on above: Order Comment: Order Added by Discern Expert. Performed By: #### 2 [id number], 1252682, 8799616, 1472995, [id number], [id number] #### [facility] [address] [place] [address] Eosinophils/100 WBC (Bld) 0.2 % Normal 0.0-8.0 [facility] Comment on above: Order Comment: Order Added by Discern Expert. Performed By: #### 2 [id number], 6257260, 7866801, 1512108, [id number], [id number] #### [facility] [address] [place] [address] Eosinophils/Leukocytes Auto (Bld) [Pure # fraction] 0.0 E9/L Normal 0.0-0.5 [facility] Comment on above: Order Comment: Order Added by Discern Expert. Performed By: #### 2 [id number], 9185199, 8307446, 9367180, [id number], [id number] #### [facility] [address] [place] [address] Lymphocytes/100 WBC (Bld) 32.9 % Normal 14.0-50.0 [facility] Comment on above: Order Comment: Order Added by Discern Expert. Performed By: #### 2 [id number], 6488317, 5835807, 2530722, 22840510, [id number] #### [facility] [address] [place] [address] Lymphocytes/Leukocytes Auto (Bld) [Pure # fraction] 2.0 E9/L Normal 1.0-4.0 [facility] Comment on above: Order Comment: Order Added by Discern Expert. Performed By: #### 2 [id number], 1490073, 9872256, 6344936, [id number], [id number] #### [facility] [address] [place] [address] Monocytes/100 WBC (Bld) 7.3 % Normal 4.0-14.0 [facility] Comment on above: Order Comment: Order Added by Discern Expert. Performed By: #### 2 [id number], 0545003, 8209776, 1673606, 01883943, 4721630 #### [facility] [address] [place] [address] Monocytes/Leukocytes Auto (Bld) [Pure # fraction] 0.5 E9/L Normal 0.2-1.0 [facility] Comment on above: Order Comment: Order Added by Discern Expert. Performed By: #### 2 [id number], 6735687, 6131813, 7663809, 87913916, 5786078 #### [facility] [address] [place] [address] Neutrophils/100 WBC (Bld) 59.2 % Normal 36.0-75.0 [facility] Comment on above: Order Comment: Order Added by Discern Expert. Performed By: #### 2 [id number], 3251518, 2183948, 9363461, 08938591, 8068648 #### [facility] [address] [place] [address] Neutrophils/Leukocytes Auto (Bld) [Pure # fraction] 3.7 E9/L Normal 2.0-7.5 [facility] Comment on above: Order Comment: Order Added by Discern Expert. Performed By: #### 2 [id number], 4921276, 7069760, 7807473, 52869987, 0724516 #### [facility] [address] [place] [address] B hCG Qualon 11-10-2022 Beta hCG Ql Negative Normal [facility] Comment on above: Performed By: #### 2 4462042, 6618526, 3653908, 8761677, 32332959, 0241704 ####[facility] [address] [place] [address] CBC w/ Auto Diffon Erythrocyte distribution width (RBC) [Ratio] 13.3 % Normal 10.9-14.2 [facility] Comment on above: Performed By: #### 2 7390777, 4798829, 1057096, 3708121, 90771212, 9357471 #### [facility] [address] [place] [address] Hematocrit (Bld) [Volume fraction] 39.5 % Normal 34.0-46.0 [facility] Comment on above: Performed By: #### 2 8245685, 2790639, 7972059, 1642091, 91936361, 3098514 #### [facility] [address] [place] [address] Hemoglobin (Bld) [Mass/Vol] 13.5 g/dL Normal 12.0-16.0 [facility] Comment on above: Performed By: #### 2 1347471, 7268150, 7690811, 5119872, 56529692, 3702135 #### [facility] [address] [place] [address] MCH (RBC) [Entitic mass] 30.7 pg Normal 27.0-34.0 [facility] Comment on above: Performed By: #### 2 1728618, 7482862, 6640951, 8147645, 93182268, 9936175 #### [facility] [address] [place] [address] MCHC (RBC) [Mass/Vol] 34.1 g/dL Normal 31.4-36.[address] [facility] Comment on above: Performed By: #### 2 3432738, 0546466, 0225924, 4261780, 99157086, 1933813 #### [facility] [address] [place] [address] MCV (RBC) [Entitic vol] 90.0 fL Normal 80.0-100.0 [facility] Comment on above: Performed By: #### 2 1727225, 4565340, 2900269, 4668336, 81582483, 9971568 #### [facility] [address] [place] [address] Platelet mean volume (Bld) [Entitic vol] 9.0 fL Normal 6.4-10.8 [facility] Comment on above: Performed By: #### 2 7549972, 1148426, 9288337, 1656263, 34304449, 6876846 #### [facility] [address] [place] [address] Platelets (Bld) [#/Vol] 215.0 E9/L Normal 150.0-500.0 [facility] Comment on above: Performed By: #### 2 7472672, 4647053, 1206629, 7120275, 84109866, 1037011 #### [facility] [address] [place] [address] RBC (Bld) [#/Vol] 4.4 E12/L Normal 4.3-5.9 [facility] Comment on above: Performed By: #### 2 5662836, 8183742, 3471588, 0282342, 98650468, 5281087 #### [facility] [address] [place] [address] WBC corrected for nucl RBC Auto (Bld) [#/Vol] 6.2 E9/L Normal 4.0-11.0 [facility] Comment on above: Performed By: #### 2 1852678, 9500435, 4661065, 3233486, 50660213, 8958803 #### [facility] [address] [place] [address] CHEMISTRYOrdered By: SYSTEM SYSTEM on 11-10-2022 Amphetamines Screen method >1000 ng/mL Ql (U) Positive 1 *ABN* (11/10/22 1:49 AM) Invalid Interpretation Code Negative [facility] Comment on above: Result Comment: Crit ical Result verified by repeat analysis\Critical Result UD_AMPH:POS Called to [facility] AT ER by EDNA NOVAK And Read Back For Confirmation at: 11/10/2022 02:34:47 Barbiturates Screen Ql (U) Negative (11/10/22 1:49 AM) Normal Negative [facility] Benzodiazepines Ql (U) Negative (11/10/22 1:49 AM) Normal Negative [facility] Cocaine Ql (U) Negative (11/10/22 1:49 AM) Normal Negative [facility] Opiates Screen Ql (U) Negative (11/10/22 1:49 AM) Normal Negative [facility] Phencyclidine Screen method >25 ng/mL Ql (U) Negative (11/10/22 1:49 AM) Normal Negative [facility] Tetrahydrocannabinol Screen method >50 ng/mL Ql (U) Negative (11/10/22 1:49 AM) Normal Negative [facility] Acetaminophen [Mass/Vol] microgram/mL Low 15 - 30 mcg/mL [facility] Albumin [Mass/Vol] 3.8 g/dL Normal 3.3 - 5.0 gm/dL [facility] Albumin/Globulin [Mass ratio] 1.3 {ratio} Normal 1.1 - 2.2 [facility] ALP [Catalytic activity/Vol] 41 [iU]/d Normal 21 - 98 Int._Unit/L [facility] ALT No additional P-5'-P [Catalytic activity/Vol] 16 [iU]/d Normal 6 - 46 Int._Unit/L [facility] Anion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 (albuterol 0.083% Inh Vera 3 mL) albuterol (albuterol HFA 90 mcg/inh MDI) budesonide (Pulmicort Flexhaler 180 mcg/inh Powder) divalproex sodium (Depakote DR 500 mg Tab-EC) gabapentin (gabapentin 400 mg Cap) hydrOXYzine (Vistaril 50 mg Cap) polyethylene glycol 3350 (MiraLax oral powder for reconstitution) promethazine (promethazine 25 mg Tab) quetiapine (Seroquel 400 mg oral tablet) Procedures Performed teeth extraction (10/12/2011), denies. Discharge Vitals Temperature (Temporal Artery) 36.8 ?C Heart Rate (Peripheral) 93 Blood Pressure 136/78 Height 167 cm Height 66 in Weight 70.0 kg Weight 154 lb BMI 25.1 What to do next Scheduled Follow-Up Appointments 2022 11:00 AM EDT With: NANCY RODRIGUEZ CNP Where: [facility] [place] [facility] Office/Clini c Noteon 10-02-2022 Family Medicine Office/Clinic Note Chief Complaint medication f/u HPI Staff Lorna is a 37 year old female who presents for medication F/u. Patient presents for medication refills. She also states she fell a week ago. She states she fell coming out of the [employer] at parking lot. She C/o back pain/ LT arm/ leg. C/o lower back pain. ROM- well with- pain. She is wanting x-rays. Rates pain- 7-8/10. Has been taking Tylenol and Ibuprofen. History of Present Illness I have reviewed and verified the staff HPI to be accurate for this encounter. Patient does continue to follow-up at the [facility] in [facility], does attend clinic daily. Recently was in rehab/detox per patient prior to attending methadone clinic due to issues with chronic drug abuse. States has been doing well since being seen at methadone clinic. Does submit to mandatory drug testing regularly while attending methadone clinic Has also been following with Dr. Isabel in [place] for psychiatric/behavior al health issues. She continues on Seroquel and Depakote for histories of mood disorder. Was also diagnosed with ADHD and is on Adderall that is managed by her behavioral health specialist. Has been taking all medications as prescribed has noticed increase in quality of life with her improved mood, energy levels, and focus. Patient states she did recently also have a fall while in the [employer] parking lot onto the pavement/concrete. Patient did state there was something on the ground she is unsure what the object was tightly because of a slip she fell making contact with her left elbow and left knee first. Denies any contact with the head or loss of consciousness during fall. Did cause a abrasion/laceration to her left elbow that is healing. Does have pain in the left elbow, left knee and lower back, denies any significant erythema, ecchymosis, edema to any of these areas. Denies any radiation from the lumbar pain to the lower extremities at this time. Review of Systems PHQ Score Initial Depression Screen Score: 0 ROS - Provider Constitutional: fever no, chills no, sweats no, weakness no Skin: + laceration to left elbow Respiratory: chest discomfort no, shortness of breath no, cough no, orthopnea no, wheezing no Cardiovascular: chest pain no, palpitations no, edema no Gastrointestinal: nausea no, vomiting no, diarrhea no Musculoskeletal: back pain yes, trauma yes, fall, + left knee and elbow pain Neurologic: headache no, dizziness no, numbness/tingling no, weakness no Physical Exam Vitals & Measurements T: 36.8 ?C(Temporal Artery) HR: 93(Peripheral) BP: 136/78 SpO2: 98% HT: 66 in HT: 167 cm WT: 70.0 kg WT: 154 lb BMI: 25.1 General: Well developed, well nourished, in no acute distress Head: Atraumatic Neck: Neck supple. No masses or palpable cervical nodes. Trachea midline. Lungs: Normal respiratory effort and clear to auscultation Cardio: Regular rate and rhythm, normal S1 and S2, no murmur, no rub Musculoskeletal: There is pain with palpation over the left elbow region and left knee region which are generalized following patient's fall, there is also a healing linear laceration to the left elbow region. No open areas of skin or drainage noted. There are no significant areas of erythema, ecchymosis, edema or warmth noted to these areas. Neurologic: Grossly normal Skin: There is a linear laceration to the left elbow that is healing/scabbing currently, otherwise no rashes, ulcerations, or suspicious lesions to visible skin Mental Status: Alert and oriented x3. Normal mood and affect Assessment/Plan 1. Fall on concrete (W19.XXXA: Unspecified fall, initial encounter) Continue with RICE therapy as discussed, will obtain x-rays to rule out any acute fractures or abnormalities following fall. Ordered: XR Elbow 3+ Views Left XR Knee Complete 4+ Views Left XR Spine Lumbosacral Minimum 4 Views 2. Neuropathy (G62.9: Polyneuropathy, unspecified) Continue on gabapentin as prescribed, will monitor closely given patient's past medical history of drug abuse, currently following with methadone clinic. OARRS was reviewed and appropriate at this time. 3. ADHD (F90.9: Attention-deficit hyperactivity disorder, unspecified type) Continue following with psychiatrist/behavio [facility] health specialist for prescription of Adderall she has noticed benefit on the medication. 4. Mood disorder (F39: Unspecified mood [affective] disorder) Continue following with psychiatry/behaviora health specialist 5. Smoker (F17.200: Nicotine dependence, unspecified, uncomplicated) We strongly recommend to quit tobacco use. Cigarette smoking harms nearly every organ of the body, causes many diseases, and reduces the health of smokers in general. Quitting smoking lowers your risk for smoking-related diseases and can add years to your life. We encourage you to visit www.smokefree.gov access to helpful resources including free telephone support. If you decide on prescription treatment to help you quit, we wo (more content not included)... [facility] Comment on above: Result Comment: Elec tronically Signed By: NANCY RODRIGUEZ CNP\.br\Date and Time Signed: 10/02/22 17:55 EST Patient Educationon 10-02-20 22 Patient Education Mental and Behavioral Health Tobacco Use Disorder Tobacco use disorder (TUD) occurs when a person craves, seeks, and uses tobacco, regardless of the consequences. This disorder can cause problems with mental and physical health. It can affect your ability to have healthy relationships, and it can keep you from meeting your responsibilities at work, home, or school. Tobacco may be: ? Smoked as a cigarette or cigar. ? Inhaled using e-cigarettes. ? Smoked in a pipe or hookah. ? Chewed as smokeless tobacco. ? Inhaled into the nostrils as snuff. Tobacco products contain a dangerous chemical called nicotine, which is very addictive. Nicotine triggers hormones that make the body feel stimulated and works on areas of the brain that make you feel good. These effects can make it hard for people to quit nicotine. Tobacco contains many other unsafe chemicals that can damage almost every organ in the body. Smoking tobacco also puts others in danger due to fire risk and possible health problems caused by breathing in secondhand smoke. What are the signs or symptoms? Symptoms of TUD may include: ? Being unable to slow down or stop your tobacco use. ? Spending an abnormal amount of time getting or using tobacco. ? Craving tobacco. Cravings may last for up to 6 months after quitting. ? Tobacco use that: ? Interferes with your work, school, or home life. ? Interferes with your personal and social relationships. ? Makes you give up activities that you once enjoyed or found important. ? Using tobacco even though you know that it is: ? Dangerous or bad for your health or someone else's health. ? Causing problems in your life. ? Needing more and more of the substance to get the same effect (developing tolerance). ? Experiencing unpleasant symptoms if you do not use the substance (withdrawal). Withdrawal symptoms may include: ? Depressed, anxious, or irritable mood. ? Difficulty concentrating. ? Increased appetite. ? Restlessness or trouble sleeping. ? Using the substance to avoid withdrawal. How is this diagnosed? This condition may be diagnosed based on: ? Your current and past tobacco use. Your health care provider may ask questions about how your tobacco use affects your life. ? A physical exam. You may be diagnosed with TUD if you have at least two symptoms within a 12-month period. How is this treated? This condition is treated by stopping tobacco use. Many people are unable to quit on their own and need help. Treatment may include: ? Nicotine replacement therapy (NRT). NRT provides nicotine without the other harmful chemicals in tobacco. NRT gradually lowers the dosage of nicotine in the body and reduces withdrawal symptoms. NRT is available as: ? Ueoy-ewp-onrcrfd gums, lozenges, and skin patches. ? Prescription mouth inhalers and nasal sprays. ? Medicine that acts on the brain to reduce cravings and withdrawal symptoms. ? A type of talk therapy that examines your triggers for tobacco use, how to avoid them, and how to cope with cravings (behavioral therapy). ? Hypnosis. This may help with withdrawal symptoms. ? Joining a support group for others coping with TUD. The best treatment for TUD is usually a combination of medicine, talk therapy, and support groups. Recovery can be a long process. Many people start using tobacco again after stopping (relapse). If you relapse, it does not mean that treatment will not work. Follow these instructions at home: Lifestyle ? Do not use any products that contain nicotine or tobacco, such as cigarettes and e-cigarettes. ? Avoid things that trigger tobacco use as much as you can. Triggers include people and situations that usually cause you to use tobacco. ? Avoid drinks that contain caffeine, including coffee. These may worsen some withdrawal symptoms. ? Find ways to manage stress. Wanting to smoke may cause stress, and stress can make you want to smoke. Relaxation techniques such as deep breathing, meditation, and yoga may help. ? Attend support groups as needed. These groups are an important part of long-term recovery for many people. General instructions ? Take lalb-ayw-kutkuyj and prescription medicines only as told by your health care provider. ? Check with your health care provider before taking any new prescription or dfcp-cmh-rhrgumk medicines. ? Decide on a friend, family member, or smoking quit-line (such as 9-911-REED-NOW in the [place] that you can call or text when you feel the urge to smoke or when you need help coping with cravings. ? Keep all follow-up visits as told by your health care provider and therapist. This is important. Contact a health care provider if: ? You are not able to take your medicines as prescribed. ? Your symptoms get worse, even with treatment. Summary ? Tobacco use disorder (TUD) occurs when a person craves, seeks, and uses tobacco regardless of the consequences. ? This condition may be diagn (more content not included)... [facility]-19 SOFIAOrdered By: Ezio Reyes on 08-08-2022 SARS-CoV+SARS-CoV-2 (COVID-19) Ag IA.rapid Ql (Resp) Negative Negative [facility] Comment on above: This is a duplicate Martina SARS Antigen (NATE) result to be used for statistical tracking purpose only. No Panel InformationOrdered By: Rachael Reyes on 08-08-2022 SARS Antigen (LFIA) [facility] XR CHEST 1 Von 06-23-2022 XR CHEST 1 V EXAMINATION: XR CHEST 1 V HISTORY: Cough COMPARISON: Chest x-rays 06/16/2002 TECHNIQUE: Portable chest FINDINGS: The lung parenchyma is free of consolidation or infiltrate. No pneumothorax or pleural effusion. The cardiac, mediastinal and hilar contours are normal. The visualized osseous structures exhibit no gross abnormality. IMPRESSION: Normal chest x-ray Electronically authenticated by: ALBINA BRODERICK Date: 2022-06-22 22:40 Normal [facility] CBC AUTO DIFFon 06-22-2022 BASO # 0.0 103/ul Normal 0.0-0.1 [facility] Comment on above: Performed By: #### C BC #### [facility] [address] [address] [address] Efren Parra Basophils/100 WBC (Bld) 0.2 % Normal 0.2-2.0 [facility] Comment on above: Performed By: #### C BC #### [facility] [address] [address] [address] Efren Parra EO # 0.0 103/ul Normal 0.0-0.7 [facility] Comment on above: Performed By: #### C BC #### [facility] [address] [address] [address] Efren Parra Eosinophils/100 WBC (Bld) 0.1 % Critically low 0.9-7.0 [facility] Comment on above: Performed By: #### C BC #### [facility] [address] [place] [address] Dr. Efern Parra Erythrocyte distribution width (RBC) [Ratio] 12.9 % Normal 11.0-15.0 [facility] Comment on above: Performed By: #### C BC #### [facility] [address] [address] [address] Efren Parra Hematocrit (Bld) [Volume fraction] 37.0 % Normal 36.0-48.0 [facility] Comment on above: Performed By: #### C BC #### [facility] [address] [address] [address] Efren Parra Hemoglobin (Bld) [Mass/Vol] 12.6 g/dL Normal 12.0-16.0 [facility] Comment on above: Performed By: #### C BC #### [facility] [address] [place] [address] Dr. Efren Parra IG # 0.06 10e3/ul Critically high 0.00-0.03 [facility] Comment on above: Performed By: #### C BC #### [facility] [address] [place] [address] Dr. Efren Parra IG % 0.5 % Normal 0.0-0.5 [facility] Comment on above: Performed By: #### C BC #### [facility] [address] [place] [address] Dr. Efren Parra LYMPH # 4.8 103/ul Critically high 1.2-3.8 [facility] Comment on above: Performed By: #### C BC #### [facility] [address] [place] [address] Dr. Efren Parra Lymphocytes/100 WBC (Bld) 36.3 % Normal 20.5-60.0 [facility] Comment on above: Performed By: #### C BC #### [facility] [address] [place] [address] Dr. Efren Parra MANUAL DIFF REQ NO Normal [facility] Comment on above: Performed By: #### C BC #### [facility] [address] [place] [address] Dr. Efren Parra MCH (RBC) [Entitic mass] 31.7 pg Normal 26.7-34.0 [facility] Comment on above: Performed By: #### C BC #### [facility] [address] [address] [address] Efren Parra MCHC (RBC) [Mass/Vol] 34.1 g/dL Normal 29.9-35.2 [facility] Comment on above: Performed By: #### C BC #### [facility] [address] [address] [address] Efren Parra MCV (RBC) [Entitic vol] 93.0 fL Normal 81.0-99.0 [facility] Comment on above: Performed By: #### C BC #### [facility] [address] [address] [address] Efren Parra MONO # 0.8 103/ul Normal 0.3-0.8 [facility] Comment on above: Performed By: #### C BC #### [facility] [address] [place] [address] Dr. Efren Parra Monocytes/100 WBC (Bld) 5.8 % Normal 1.7-12.0 [facility] Comment on above: Performed By: #### C BC #### [facility] [address] [address] [address] Efren Parra NEUT # 7.6 103/ul Critically high 1.4-6.5 [facility] Comment on above: Performed By: #### C BC #### [facility] [address] [place] [address] Dr. Efren Parra Neutrophils/100 WBC (Bld) 57.1 % Normal 43.0-75.0 [facility] Comment on above: Performed By: #### C BC #### [facility] [address] [address] [address] Efren Parra Platelet mean volume (Bld) [Entitic vol] 10.7 fL Normal 9.5-13.5 [facility] Comment on above: Performed By: #### C BC #### [facility] [address] [address] [address] Efren Parra PLT 270 103/ul Normal 150-450 [facility] Comment on above: Performed By: #### C BC #### [facility] [address] [place] [address] Dr. Efren Parra RBC 3.98 106/ul Critically low 4.20-5.40 [facility] Comment on above: Performed By: #### C BC #### [facility] [address] [place] [address] Dr. Efren Parra WBC 13.2 103/ul Critically high 4.0-11.0 [facility] Comment on above: Performed By: #### C BC #### [facility] [address] [place] [address] Dr. Efren Parra D-DIMERon 06-22-2022 D-DIMER 0.24 mg/L FEU Normal <=0.59 [facility] Comment on above: Performed By: #### C BC #### [facility] [address] [place] [address] Dr. Efren Parra D-DIMER COMMENTS SEE BELOW Normal [facility] Comment on above: Result Comment: Incr eases in D-Dimer concentration observed with thromboembolic events can be variable due to localization, size, and age of the thrombus. Therefore, a thromboembolic event cannot be diagnosed with certainty on the basis of the reference range. D-Dimers may also be elevated for a variety of disorders including: advanced age, , coronary disease, cancer, liver disease, infection, inflammation, hematoma, DIC, trauma, post-surgery, diabetes, thrombolytic or anticoagulant therapy, stress, and generalized hospitalization. Performed By: #### C BC #### [facility] [address] [place] [address] Dr. Efren Parra PROF 14(COMP METB)on 022 Albumin [Mass/Vol] 3.4 g/dL Normal 3.4-5.0 [facility] Comment on above: Performed By: #### C BC #### [facility] [address] [place] [address] Dr. Efren Parra Albumin/Globulin [Mass ratio] 0.9 {ratio} Normal [facility] Comment on above: Performed By: #### C BC #### [facility] [address] [place] [address] Dr. Efren Parra ALP [Catalytic activity/Vol] 49 U/L Normal 46-116 [facility] Comment on above: Performed By: #### C BC #### [facility] [address] [place] [address] Dr. Efren Parra ALT [Catalytic activity/Vol] 14 U/L Normal 14-59 [facility] Comment on above: Performed By: #### C BC #### [facility] [address] [address] [address] Efren Parra Anion gap [Moles/Vol] 15.1 mmol/L Normal [facility] Comment on above: Performed By: #### C BC #### [facility] [address] [place] [address] Dr. Efren Parra AST [Catalytic activity/Vol] 14 U/L Critically low 15-37 [facility] Comment on above: Performed By: #### C BC #### [facility] [address] [place] [address] Dr. Efren Parra Bilirubin [Mass/Vol] 0.2 mg/dL Normal 0.2-1.0 [facility] Comment on above: Performed By: #### C BC #### [facility] [address] [place] [address] Dr. Efren Parra Calcium [Mass/Vol] 8.9 mg/dL Normal 8.5-10.1 [facility] Comment on above: Performed By: #### C BC #### [facility] [address] [place] [address] Dr. Efren Parra Chloride [Moles/Vol] 102 mmol/L Normal 98-107 [facility] Comment on above: Performed By: #### C BC #### [facility] [address] [address] [address] Efren Parra CO2 [Moles/Vol] 25.9 mmol/L Normal 21.0-32.0 [facility] Comment on above: Performed By: #### C BC #### [facility] [address] [address] [address] Efren Parra Creatinine [Mass/Vol] 0.72 mg/dL Normal 0.55-1.02 [facility] Comment on above: Performed By: #### C BC #### [facility] [address] [address] [address] Efren Parra EGFR-AF SCOTTISH >60 Normal >=60 [facility] Comment on above: Performed By: #### C BC #### [facility] [address] [address] [address] Efren Parra EGFR-NON AF SCOTTISH >60 Normal >=60 [facility] Comment on above: Performed By: #### C BC #### [facility] [address] [address] [address] Efren Parra Globulin (S) [Mass/Vol] 3.8 g/dL Normal [facility] Comment on above: Performed By: #### C BC #### [facility] [address] [place] [address] Dr. Efren Parra Glucose [Mass/Vol] 92 mg/dL Normal 74-106 [facility] Comment on above: Performed By: #### C BC #### [facility] [address] [address] [address] Efren Parra Potassium [Moles/Vol] 4.0 mmol/L Normal 3.5-5.1 [facility] Comment on above: Performed By: #### C BC #### [facility] [address] [place] [address] Dr. Efren Parra Protein [Mass/Vol] 7.2 g/dL Normal 6.4-8.2 [facility] Comment on above: Performed By: #### C BC #### [facility] [address] [place] [address] Dr. Efren Parra Sodium [Moles/Vol] 139 mmol/L Normal 136-145 [facility] Comment on above: Performed By: #### C BC #### [facility] [address] [place] [address] Dr. Efren Parra Urea nitrogen [Mass/Vol] 17.0 mg/dL Normal 7.0-18.0 [facility] Comment on above: Performed By: #### C BC #### [facility] [address] [address] [address] Efren Parra Urea nitrogen/Creatinine [Mass ratio] 23.6 mg/mg Normal [facility] Comment on above: Performed By: #### C BC #### [facility] [address] [address] [address] Efren Parra TROPONIN, HIGH SENSITIVITYon 06-22-2022 HSTROP <4.0 Normal 4.0-51.3 [facility] Comment on above: Result Comment: CUT- OFF POINTS HAVE BEEN ESTABLISHED BASED ON THE FOURTH UNIVERSAL DEFINITIONS OF MYOCARDIAL INFARCTION. THE UPPER REFERENCE LIMIT (URL) OF TROPONIN, DEFINED THE 99TH PERCENTILE OF cTnI DISTRIBUTION IN A REFERENCE POPULATION, HAS BEEN CONFIRMED THE DECISION THRESHOLD FOR [place] DIAGNOSIS. Performed By: #### C BC #### [facility] [address] [place] [address] Dr. Efren Parra Covid-19 PCR ([facility])on SARS-CoV-2 (COVID-19) RNA LUKASZ+probe Ql (Unsp spec) Not detected Normal NOT DETECTED [facility] Comment on above: Result Comment: When diagnostic testing is negative, the possibility of a false negative should be considered in the context of a patient's recent exposures and the presence of clinical signs and symptoms consistent with SARS-CoV-2. This test is not yet approved or cleared by the [place] FDA. When there are no FDA-approved or cleared tests available, and other criteria are met, FDA can make tests available under an emergency access mechanism called an Emergency Use Authorization (EUA). The EUA for this test is supported by the Application Security Architect of Health and Human Service's declaration that circumstances exist to justify the emergency use of in vitro diagnostics for the detection and/or diagnosis of the virus that causes COVID-19. This EUA will remain in effect for the duration of the COVID-19 declaration justifying emergency of IVDs, unless it is terminated or revoked by the FDA (after which the test may no longer be used). Performed By: #### C VDTBH #### [facility] [address] [address] [address] Efren Parra XR CHEST 2 Von 06-16-2022 XR CHEST 2 V EXAMINATION: XR CHEST 2 V HISTORY: Cough COMPARISON: X-rays 09/18/2021 TECHNIQUE: PA and lateral chest x-rays FINDINGS: The lung parenchyma is free of consolidation or infiltrate. No pneumothorax or pleural effusion. The cardiac, mediastinal and hilar contours are normal. The visualized osseous structures exhibit no gross abnormality. IMPRESSION: Normal chest x-rays Electronically authenticated by: ALBINA BRODERICK Date: 2022-06-16 21:42 Normal [facility] CHEMISTRYOrdered By: SYSTEM SYSTEM on 04-24-2022 Amphetamines Screen method >1000 ng/mL Ql (U) Positive 2 *ABN* (04/24/22 5:12 PM) Invalid Interpretation Code Negative [facility] Comment on above: Result Comment: Crit ical Result verified by repeat analysis\No confirmation requested by Physican\Unconfirmed by alternate method\Critical Result UD_AMPH:POS Called to [facility] ER by СВЕТЛАНА CHRISTINA And Read Back For Confirmation at: 04/24/2022 17:56:35 Barbiturates Screen Ql (U) Positive 3 *ABN* (04/24/22 5:12 PM) Invalid Interpretation Code Negative [facility] Comment on above: Result Comment: Crit ical Result verified by repeat analysis\No confirmation requested by Physican\Unconfirmed by alternate method\Critical Result UD_BARB:POS Called to [facility] ER by СВЕТЛАНА CHRISTINA And Read Back For Confirmation at: 04/24/2022 17:56:35 Benzodiazepines Ql (U) Positive 1 *ABN* (04/24/22 5:12 PM) Invalid Interpretation Code Negative [facility] Comment on above: Result Comment: Crit ical Result verified by repeat analysis\No confirmation requested by Physican\Unconfirmed by alternate method\Critical Result UD_BENZ:POS Called to [facility] ER by СВЕТЛАНА CHRISTINA And Read Back For Confirmation at: 04/24/2022 17:56:35 Cocaine Ql (U) Negative (04/24/22 5:12 PM) Normal Negative [facility] Opiates Screen Ql (U) Negative (04/24/22 5:12 PM) Normal Negative [facility] Phencyclidine Screen method >25 ng/mL Ql (U) Negative (04/24/22 5:12 PM) Normal Negative [facility] Tetrahydrocannabinol Screen method >50 ng/mL Ql (U) Negative (04/24/22 5:12 PM) Normal Negative [facility] CK [Catalytic activity/Vol] 74 [iU]/d Normal 14 - 261 Int._Unit/L [facility] Anion gap [Moles/Vol] 13 mmol/L Normal 6 - 16 mEq/L [facility] Calcium [Mass/Vol] 9.3 mg/dL Normal 8.9 - 11. 1 mg/dL [facility] Chloride [Moles/Vol] 102 mmol/L Normal 101 - 1 11 mmol/L [facility] CO2 [Moles/Vol] 25 mmol/L Normal 21 - 31 mmol/L [facility] Creatinine [Mass/Vol] 0.5 mg/dL Normal 0.5 - 1.3 mg/d L [facility] GFR/1.73 sq M.predicted among blacks MDRD (S/P/Bld) [Vol rate/Area] mL/min/1.73 m2 Normal >=59mL/min/1.73 m2 [facility] Chem S GFR/1.73 sq M.predicted among non-blacks MDRD (S/P/Bld) [Vol rate/Area] mL/min/1.73 m2 Normal >=59mL/min/1.73 m2 [facility] Chem S Glucose [Mass/Vol] 112 mg/dL Normal 55 - 199 mg/dL [facility] Potassium [Moles/Vol] 3.5 mmol/L Normal 3.5 - 5.3 mmol/L [facility] Sodium [Moles/Vol] 136 mmol/L Normal 135 - 145 mmol/L [facility] Troponin I.cardiac [Mass/Vol] 4.80 pg/mL Low 10.10 - 27.10 pg/mL [facility] Urea nitrogen [Mass/Vol] 13 mg/dL Normal 5 - 21 mg/dL [facility] Urea nitrogen/Creatinine [Mass ratio] 26 mg/mg High 10 - 20 [facility] HEMATOLOGYOrdered By: SYSTEM SYSTEM on 04-24-2022 Basophils/100 WBC (Bld) 0.7 % Normal 0.0 - 2.0 % [facility] Basophils/Leukocytes Auto (Bld) [Pure # fraction] 0.1 E9/L Normal 0.0 - 0.2 E9/L [facility] Eosinophils/100 WBC (Bld) 0.2 % Normal 0.0 - 8.0 % [facility] Eosinophils/Leukocytes Auto (Bld) [Pure # fraction] 0.0 E9/L Normal 0.0 - 0.5 E9/L [facility] Lymphocytes/100 WBC (Bld) 32.0 % Normal 14.0 - 50.0 % [facility] Lymphocytes/Leukocytes Auto (Bld) [Pure # fraction] 3.5 E9/L Normal 1.0 - 4.0 E9/L [facility] Monocytes/100 WBC (Bld) 8.0 % Normal 4.0 - 14.0 % [facility] Monocytes/Leukocytes Auto (Bld) [Pure # fraction] 0.9 E9/L Normal 0.2 - 1.0 E9/L [facility] Neutrophils/100 WBC (Bld) 59.1 % Normal 36.0 - 75.0 % [facility] Neutrophils/Leukocytes Auto (Bld) [Pure # fraction] 6.5 E9/L Normal 2.0 - 7.5 E9/L [facility] HEMATOLOGYOrdered By: Felicia Burrell on 04-24-2022 Erythrocyte distribution width (RBC) [Ratio] 12.7 % Normal 10.9 - 14.2 % [facility] Hematocrit (Bld) [Volume fraction] 38.5 % Normal 34.0 - 46.0 % [facility] Hemoglobin (Bld) [Mass/Vol] 13.1 g/dL Normal 12.0 - 16.0 gm/dL [facility] MCH (RBC) [Entitic mass] 31.3 pg Normal 27.0 - 34.0 pg [facility] MCHC (RBC) [Mass/Vol] 34.1 g/dL Normal 31.4 - 36.0 gm/dL [facility] MCV (RBC) [Entitic vol] 91.7 fL Normal 80.0 - 100.0 fL [facility] Platelet mean volume (Bld) [Entitic vol] 9.7 fL Normal 6.4 - 10.8 fL [facility] Platelets (Bld) [#/Vol] 187.0 E9/L Normal 150.0 - 500.0 E9/L [facility] RBC (Bld) [#/Vol] 4.2 E12/L Low 4.3 - 5.9 E12/L [facility] WBC corrected for nucl RBC Auto (Bld) [#/Vol] 11.0 E9/L Normal 4.0 - 11.0 E9/L [facility] Laboratory - Microbiology an d Antimicrobial susceptibilityon 04-24-2022 Bacteria identified Cx Nom (U) >100,000 cfu/ml Non Fermentering Gram Negative [facility] MICRO OTHER TESTSOrdered By: Carrie Molina on 04-24-2022 Rapid COV Int NEG Ctl Pass (04/24/22 3:50 PM) Normal [facility] Rapid COV Int POS Ctl Pass (04/24/22 3:50 PM) Normal [facility] SARS-CoV+SARS-CoV-2 (COVID-19) Ag IA.rapid Ql (Resp) Not Detected (04/24/22 3:50 PM) Normal Not Detected [facility] Man [facility] URINALYSISOrdered By: Carrie mckee on 04-24-2022 Bacteria LM Ql (Urine sed) 3+ /HPF Invalid Interpretation Code Trace/HPF [facility]A [facility] Bilirubin Ql (U) Negative (04/24/22 5:12 PM) Normal Negative [facility] UA Auto SS Clarity (U) Cloudy *ABN* (04/24/22 5:12 PM) Invalid Interpretation Code Clear [facility] UA Auto SS Color (U) STRAW Invalid Interpretation Code [facility] UA Auto SS Epithelial cells.squamous LM.HPF (Urine sed) [#/Area] 0-2 /HPF Normal 0-2/HPF [facility] UA Aut o SS Glucose Test strip (U) [Mass/Vol] Negative (04/24/22 5:12 PM) Normal Negative [facility] UA Auto SS Hemoglobin Ql (U) 3+ *ABN* (04/24/22 5:12 PM) Invalid Interpretation Code Negative [facility] UA Auto SS Ketones (U) [Mass/Vol] Trace *NA* (04/24/22 5:12 PM) Invalid Interpretation Code Negative [facility] UA Auto SS Natalia.plasma/Natalia .RBC (Bld) [Mass ratio] 0-3 /HPF Normal 0-3/HPF [facility] UA Auto SS Nitrite Ql (U) Positive *ABN* (04/24/22 5:12 PM) Invalid Interpretation Code Negative [facility] UA Auto SS pH (U) 7.0 *NA* (04/24/22 5:12 PM) Invalid Interpretation Code 5.0 - 9.0 [facility] UA Auto SS Protein (U) [Mass/Vol] Trace *ABN* (04/24/22 5:12 PM) Invalid Interpretation Code Negative [facility] UA Auto SS Specific gravity (U) [Rel density] 1.020 *NA* (04/24/22 5:12 PM) Invalid Interpretation Code 1.005 - 1.030 [facility] UA Auto SS UA Spec Desc Clean Catch (04/24/22 5:12 PM) Normal [facility] UA Auto SS Urobilinogen Qn (U) [id number] {Adria'U}/dL Normal 0.0 - 1.0 EU/dL [facility] UA Auto SS WBC Auto Ql (U) 3+ *ABN* (04/24/22 5:12 PM) Invalid Interpretation Code Negative [facility] UA Auto SS WBC LM.HPF (Urine sed) [#/Area] /[HPF] Invalid Interpretation Code 0-5/HPF [facility] UA Auto SS CULTURE URINEon 04-13-2022 CULTURE URINE Isolate 1 Escherichia coli >100,000 cfu/ml of ORGANISM 1 Escherichia coli ANTIBIOTIC M.I.C RX STATUS Ampicillin 4 S F Ampicillin/Sulbactam <=2 S F Piperacillin/Tazobac azul <=4 S F Cefazolin <=4 S F Ceftazidime <=1 S F Ceftriaxone <=1 S F Ertapenem <=0.5 S F Imipenem <=0.25 S F Amikacin <=2 S F Gentamicin <=1 S F Tobramycin <=1 S F Ciprofloxacin >=4 R F Levofloxacin >=8 R F Nitrofurantoin <=16 S F Trimethoprim/Sulfame thoxazole >=320 R F Normal [facility] Comment on above: Performed By: #### C BC #### [facility] [address] [place] [address] Dr. Efren Parra Covid-19 PCR ([facility])on SARS-CoV-2 (COVID-19) RNA LUKASZ+probe Ql (Unsp spec) Not detected Normal NOT DETECTED [facility] Comment on above: Result Comment: When diagnostic testing is negative, the possibility of a false negative should be considered in the context of a patient's recent exposures and the presence of clinical signs and symptoms consistent with SARS-CoV-2. This test is not yet approved or cleared by the [place] FDA. When there are no FDA-approved or cleared tests available, and other criteria are met, FDA can make tests available under an emergency access mechanism called an Emergency Use Authorization (EUA). The EUA for this test is supported by the Application Security Architect of Health and Human Service's declaration that circumstances exist to justify the emergency use of in vitro diagnostics for the detection and/or diagnosis of the virus that causes COVID-19. This EUA will remain in effect for the duration of the COVID-19 declaration justifying emergency of IVDs, unless it is terminated or revoked by the FDA (after which the test may no longer be used). Performed By: #### C BC #### [facility] [address] [place] [address] Dr. Efren Parra ACETAMINOPHENon 04-10-2022 Acetaminophen [Mass/Vol] ug/mL Critically low 10.0-30.0 [facility] Comment on above: Performed By: #### A CET, ETH, SALYC, CMP #### [facility] [address] [place] [address] Dr. Efren Parra CBC AUTO DIFFon 04-10-2022 BASO # 0.0 103/ul Normal 0.0-0.1 [facility] Comment on above: Performed By: #### C BC #### [facility] [address] [place] [address] Dr. Efren Parra Basophils/100 WBC (Bld) 0.5 % Normal 0.2-2.0 [facility] Comment on above: Performed By: #### C BC #### [facility] [address] [place] [address] Dr. Efren Parra EO # 0.1 103/ul Normal 0.0-0.7 [facility] Comment on above: Performed By: #### C BC #### [facility] [address] [place] [address] Dr. Efren Parra Eosinophils/100 WBC (Bld) 0.9 % Normal 0.9-7.0 [facility] Comment on above: Performed By: #### C BC #### [facility] [address] [place] [address] Dr. Efren Parra Erythrocyte distribution width (RBC) [Ratio] 11.9 % Normal 11.0-15.0 [facility] Comment on above: Performed By: #### C BC #### [facility] [address] [place] [address] Dr. Efren Parra Hematocrit (Bld) [Volume fraction] 42.3 % Normal 36.0-48.0 [facility] Comment on above: Performed By: #### C BC #### [facility] [address] [place] [address] Dr. Efren Parra Hemoglobin (Bld) [Mass/Vol] 14.6 g/dL Normal 12.0-16.0 [facility] Comment on above: Performed By: #### C BC #### [facility] [address] [place] [address] Dr. Efren Parra IG # 0.03 10e3/ul Normal 0.00-0.03 [facility] Comment on above: Performed By: #### C BC #### [facility] [address] [place] [address] Dr. Efren Parra IG % 0.5 % Normal 0.0-0.5 [facility] Comment on above: Performed By: #### C BC #### [facility] [address] [place] [address] Dr. Efren Parra LYMPH # 1.5 103/ul Normal 1.2-3.8 [facility] Comment on above: Performed By: #### C BC #### [facility] [address] [place] [address] Dr. Efren Parra Lymphocytes/100 WBC (Bld) 22.9 % Normal 20.5-60.0 [facility] Comment on above: Performed By: #### C BC #### [facility] [address] [place] [address] Dr. Efren Parra MANUAL DIFF REQ NO Normal [facility] Comment on above: Performed By: #### C BC #### [facility] [address] [place] [address] Dr. Efren Parra MCH (RBC) [Entitic mass] 31.9 pg Normal 26.7-34.0 [facility] Comment on above: Performed By: #### C BC #### [facility] [address] [place] [address] Dr. Efren Parra MCHC (RBC) [Mass/Vol] 34.5 g/dL Normal 29.9-35.2 [facility] Comment on above: Performed By: #### C BC #### [facility] [address] [place] [address] Dr. Efrne Parra MCV (RBC) [Entitic vol] 92.4 fL Normal 81.0-99.0 [facility] Comment on above: Performed By: #### C BC #### [facility] [address] [place] [address] Dr. Efren Parra MONO # 0.3 103/ul Normal 0.3-0.8 [facility] Comment on above: Performed By: #### C BC #### [facility] [address] [place] [address] Dr. Efren Parra Monocytes/100 WBC (Bld) 4.7 % Normal 1.7-12.0 [facility] Comment on above: Performed By: #### C BC #### [facility] [address] [place] [address] Dr. Efren Parra NEUT # 4.7 103/ul Normal 1.4-6.5 [facility] Comment on above: Performed By: #### C BC #### [facility] [address] [place] [address] Dr. Efren Parra Neutrophils/100 WBC (Bld) 70.5 % Normal 43.0-75.0 [facility] Comment on above: Performed By: #### C BC #### [facility] [address] [place] [address] Dr. Efren Parra Platelet mean volume (Bld) [Entitic vol] 11.0 fL Normal 9.5-13.5 [facility] Comment on above: Performed By: #### C BC #### [facility] [address] [place] [address] Dr. Efren Parra PLT 226 103/ul Normal 150-450 [facility] Comment on above: Performed By: #### C BC #### [facility] [address] [place] [address] Dr. Efren Parra RBC 4.58 106/ul Normal 4.20-5.40 [facility] Comment on above: Performed By: #### C BC #### [facility] [address] [place] [address] Dr. Efren Parra WBC 6.6 103/ul Normal 4.0-11.0 [facility] Comment on above: Performed By: #### C BC #### [facility] [address] [place] [address] Dr. Efren Parra DEPAKENE/VALPROICon 04-10-20 22 DEPAKENE 35.2 ug/ml Critically low 50.0-100.0 [facility] Comment on above: Performed By: #### C BC #### [facility] [address] [place] [address] Dr. Efren Parra DRUG SCREEN RAPID (URINE)on 04-10-2022 AMP Negative Normal NEGATIVE [facility] Comment on above: Performed By: #### C BC #### [facility] [address] [place] [address] Dr. Efren Parra BAR Negative Normal NEGATIVE [facility] Comment on above: Performed By: #### C BC #### [facility] [address] [place] [address] Dr. Efren Parra BUP Positive Abnormal NEGATIVE [facility] Comment on above: Performed By: #### C BC #### [facility] [address] [place] [address] Dr. Efren Parra BZO Negative Normal NEGATIVE [facility] Comment on above: Performed By: #### C BC #### [facility] [address] [place] [address] Dr. Efren Parra RENEA Negative Normal NEGATIVE [facility] Comment on above: Performed By: #### C BC #### [facility] [address] [place] [address] Dr. Efren Parra CUT-OFFS SEE BELOW Normal [facility] Comment on above: Result Comment: AMP (Amphetamine): 500ng/mL, BAR (Barbituates): 200 ng/mL, BZO (Benzodiazepines): 150 ng/mL, BUP (Buprenorphine): 10 ng/mL, RENEA (Cocaine): 150 ng/mL, mAMP (Methamphetamine): 500 ng/mL, MTD (Methadone): 200 ng/mL, OPI (Opiates): 100 ng/mL, OXY (Oxycodone): 100 ng/mL, PCP (Phencyclidine): 25 ng/mL, PPX (Propoxyphene): 300 ng/mL, THC (Cannabinoids): 50 ng/mL, TCA (Trycyclic Antidepressants): 300 ng/mL Performed By: #### C BC #### [facility] [address] [place] [address] Dr. Efren Parra DRUG CUT HEADER DRUG CLASS TEST SYSTEM CUT-OFF CONCENTRATIONS ARE FOLLOWS: Normal [facility] Comment on above: Performed By: #### C BC #### [facility] [address] [place] [address] Dr. Efren Parra mAMP Negative Normal NEGATIVE [facility] Comment on above: Performed By: #### C BC #### [facility] [address] [place] [address] Dr. Efren Parra MTD Negative Normal NEGATIVE [facility] Comment on above: Performed By: #### C BC #### [facility] [address] [place] [address] Dr. Efren Parra OPI Negative Normal NEGATIVE [facility] Comment on above: Performed By: #### C BC #### [facility] [address] [place] [address] Dr. Efren Parra OXY Negative Normal NEGATIVE [facility] Comment on above: Performed By: #### C BC #### [facility] [address] [place] [address] Dr. Efren Parra PCP Negative Normal NEGATIVE [facility] Comment on above: Performed By: #### C BC #### [facility] [address] [place] [address] Dr. Efren Parra PPX Negative Normal NEGATIVE [facility] Comment on above: Performed By: #### C BC #### [facility] [address] [place] [address] Dr. Efren Parra TCA Negative Normal NEGATIVE [facility] Comment on above: Performed By: #### C BC #### [facility] [address] [place] [address] Dr. Efren Parra THC Negative Normal NEGATIVE [facility] Comment on above: Performed By: #### C BC #### [facility] [address] [place] [address] Dr. Efren Parra ER URINE PROFILEon 2 Bilirubin Ql (U) Negative Normal NEGATIVE [facility] Comment on above: Performed By: #### U MICRO, DRUGRPD, ERUR #### [facility] [address] [place] [address] Dr. Efren Parra Clarity (U) CLEAR Normal CLEAR [facility] Comment on above: Performed By: #### U MICRO, DRUGRPD, ERUR #### [facility] [address] [place] [address] Dr. Efren Parra Color (U) LT. YELLOW Normal YELLOW [facility] Comment on above: Performed By: #### U MICRO, DRUGRPD, ERUR #### [facility] [address] [place] [address] Dr. Efren Parra ERUAHNiraj A micrscopic examination will be performed if indicated. Normal [facility] Comment on above: Performed By: #### U MICRO, DRUGRPD, ERUR #### [facility] [address] [place] [address] Dr. Efren Parra Glucose Ql (U) Negative Normal NEGATIVE [facility] Comment on above: Performed By: #### U MICRO, DRUGRPD, ERUR #### [facility] [address] [place] [address] Dr. Efren Parra Hemoglobin Ql (U) Negative Normal NEGATIVE [facility] Comment on above: Performed By: #### U MICRO, DRUGRPD, ERUR #### [facility] [address] [address] [address] Efren Parra Ketones Ql (U) TRACE Abnormal NEGATIVE [facility] Comment on above: Performed By: #### U MICRO, DRUGRPD, ERUR #### [facility] [address] [address] [address] Efren Parra LEUKOCYTES TRACE Abnormal NEGATIVE [facility] Comment on above: Performed By: #### U MICRO, DRUGRPD, ERUR #### [facility] [address] [address] [address] Efren Parra Nitrite Ql (U) Positive Abnormal NEGATIVE [facility] Comment on above: Performed By: #### U MICRO, DRUGRPD, ERUR #### [facility] [address] [place] [address] Dr. Efren Parra pH (U) 8.5 [pH] Normal 5-9 [facility] Comment on above: Performed By: #### U MICRO, DRUGRPD, ERUR #### [facility] [address] [place] [address] Dr. Efren Parra SPEC GRAVITY 1.015 Normal 1.005-<=1.025 [facility] Comment on above: Performed By: #### U MICRO, DRUGRPD, ERUR #### [facility] [address] [address] [address] Efren Parra UA PROTEIN Negative Normal NEGATIVE/ TRACE [facility] Comment on above: Performed By: #### U MICRO, DRUGRPD, ERUR #### [facility] [address] [address] [address] Efren Parra UR MICRO IND INDICATED Normal [facility] Comment on above: Performed By: #### U MICRO, DRUGRPD, ERUR #### [facility] [address] [place] [address] Dr. Efren Parra Urobilinogen Qn (U) 0.2 {Adria'U}/dL Normal 0.2 - 1. 0 [facility] Comment on above: Performed By: #### U MICRO, DRUGRPD, ERUR #### [facility] [address] [place] [address] Dr. Efren Parra ETHANOL (BLD ALC)on 04-10-20 22 ALC NOTE NOTE: 80 mg/dl is the legal limit for a blood alcohol level Normal [facility] Comment on above: Performed By: #### A CET, ETH, SALYC, CMP #### [facility] [address] [address] [address] Efren Parra Ethanol [Mass/Vol] mg/dL Normal [facility] Comment on above: Performed By: #### A CET, ETH, SALYC, CMP #### [facility] [address] [place] [address] Dr. Efren Parra PREG HCG QUALon 04-10-2022 , QUAL Negative Normal NEGATIVE [facility] Comment on above: Performed By: #### P REG #### [facility] [address] [place] [address] Dr. Efren Parra PROF 14(COMP METB)on 022 Albumin [Mass/Vol] 3.6 g/dL Normal 3.4-5.0 [facility] Comment on above: Performed By: #### A CET, ETH, SALYC, CMP #### [facility] [address] [place] [address] Dr. Efren Parra Albumin/Globulin [Mass ratio] 1.0 {ratio} Normal [facility] Comment on above: Performed By: #### A CET, ETH, SALYC, CMP #### [facility] [address] [place] [address] Dr. Efren Parra ALP [Catalytic activity/Vol] 62 U/L Normal 46-116 [facility] Comment on above: Performed By: #### A CET, ETH, SALYC, CMP #### [facility] [address] [place] [address] Dr. Efren Parra ALT [Catalytic activity/Vol] 29 U/L Normal 14-59 [facility] Comment on above: Performed By: #### A CET, ETH, SALYC, CMP #### [facility] [address] [place] [address] Dr. Efren Parra Anion gap [Moles/Vol] 10.8 mmol/L Normal Th e [facility] Comment on above: Performed By: #### A CET, ETH, SALYC, CMP #### [facility] [address] [place] [address] Dr. Efren Parra AST [Catalytic activity/Vol] 11 U/L Critically low 15-37 [facility] Comment on above: Performed By: #### A CET, ETH, SALYC, CMP #### [facility] [address] [place] [address] Dr. Efren Parra Bilirubin [Mass/Vol] 0.4 mg/dL Normal 0.2-1.0 [facility] Comment on above: Performed By: #### A CET, ETH, SALYC, CMP #### [facility] [address] [place] [address] Dr. Efren Parra Calcium [Mass/Vol] 9.3 mg/dL Normal 8.5-10.1 [facility] Comment on above: Performed By: #### A CET, ETH, SALYC, CMP #### [facility] [address] [place] [address] Dr. Efren Parra Chloride [Moles/Vol] 105 mmol/L Normal 98-107 [facility] Comment on above: Performed By: #### A CET, ETH, SALYC, CMP #### [facility] [address] [place] [address] Dr. Efren Parra CO2 [Moles/Vol] 26.8 mmol/L Normal 21.0-32.0 [facility] Comment on above: Performed By: #### A CET, ETH, SALYC, CMP #### [facility] [address] [place] [address] Dr. Efren Parra Creatinine [Mass/Vol] 0.64 mg/dL Normal 0.55-1.02 [facility] Comment on above: Performed By: #### A CET, ETH, SALYC, CMP #### [facility] [address] [address] [address] Efren Parra EGFR-AF SCOTTISH >60 Normal >=60 [facility] Comment on above: Performed By: #### A CET, ETH, SALYC, CMP #### [facility] [address] [address] [address] Efren Parra EGFR-NON AF SCOTTISH >60 Normal >=60 [facility] Comment on above: Performed By: #### A CET, ETH, SALYC, CMP #### [facility] [address] [address] [address] Efren Parra Globulin (S) [Mass/Vol] 3.5 g/dL Normal [facility] Comment on above: Performed By: #### A CET, ETH, SALYC, CMP #### [facility] [address] [place] [address] Dr. Efren Parra Glucose [Mass/Vol] 113 mg/dL Critically high 74-106 [facility] Comment on above: Performed By: #### A CET, ETH, SALYC, CMP #### [facility] [address] [place] [address] Dr. Efren Parra Potassium [Moles/Vol] 4.6 mmol/L Normal 3.5-5.1 [facility] Comment on above: Performed By: #### A CET, ETH, SALYC, CMP #### [facility] [address] [place] [address] Dr. Efren Parra Protein [Mass/Vol] 7.1 g/dL Normal 6.4-8.2 [facility] Comment on above: Performed By: #### A CET, ETH, SALYC, CMP #### [facility] [address] [place] [address] Dr. Efren Parra Sodium [Moles/Vol] 138 mmol/L Normal 136-145 [facility] Comment on above: Performed By: #### A CET, ETH, SALYC, CMP #### [facility] [address] [place] [address] Dr. Efren Parra Urea nitrogen [Mass/Vol] 8.0 mg/dL Normal 7.0-18.0 [facility] Comment on above: Performed By: #### A CET, ETH, SALYC, CMP #### [facility] [address] [place] [address] Dr. Efren Parra Urea nitrogen/Creatinine [Mass ratio] 12.5 mg/mg Normal [facility] Comment on above: Performed By: #### A CET, ETH, SALYC, CMP #### [facility] [address] [place] [address] Dr. Efren Parra SALICYLATEon 04-10-2022 SALICYLATE 3.3 mg/dL Normal <=19.9 [facility] Comment on above: Performed By: #### A CET, ETH, SALYC, CMP #### [facility] [address] [place] [address] Dr. Efren Parra URINE MICROSCOPIC ONLYon BACTERIA LARGE Abnormal NONE SEEN The [facility] Comment on above: Performed By: #### C BC #### [facility] [address] [place] [address] Dr. Efren Parra Bacteria identified Cx Nom (U) INDICATED Normal [facility] Comment on above: Performed By: #### C BC #### [facility] [address] [place] [address] Dr. Efren Parra CAST NONE SEEN Normal NONE SEEN The [facility] Comment on above: Performed By: #### C BC #### [facility] [address] [place] [address] Dr. Efren Parra Crystals LM Nom (Urine sed) NONE SEEN Normal NONE SEEN The [facility] Comment on above: Performed By: #### C BC #### [facility] [address] [place] [address] Dr. Efren Parra Epithelial cells LM Ql (Urine sed) MANY Abnormal NONE SEEN /RARE [facility] Comment on above: Performed By: #### C BC #### [facility] [address] [place] [address] Dr. Efren Parra MUCOUS NONE SEEN Normal NONE SEEN The [facility] Comment on above: Performed By: #### C BC #### [facility] [address] [place] [address] Dr. Efren Parra RBC 0-2 Normal 0-2 [facility] Comment on above: Performed By: #### C BC #### [facility] [address] [place], [place] [address] Dr. Efren Parra WBC 5-10 Abnormal NONE SEEN The [facility] Comment on above: Performed By: #### C BC #### [facility] [address] [place], [place] [address] Dr. Efren Parra Hemoglobin A1Con 02-08-2021 Glucose [Mass/Vol] 103 mg/dL Normal [facility] Comment on above: Result Comment: The ADA and AACC recommend providing the estimated average glucose result to permit better patient understanding of their HBA1c result. Performed By: #### G LYHGB #### [facility] [address] [place], [place] [id number] Dam Tender: Bryan Cruz MD HbA1c (Bld) [Mass fraction] 5.2 % Normal 4.0-6.0 [facility] Comment on above: Performed By: #### G LYHGB #### [facility] [address] [place], [place] [id number] Dam Tender: Bryan Cruz MD XR CHEST (SINGLE VIEW FRONTA L)on 02-07-2021 XR CHEST (SINGLE VIEW FRONTAL) EXAMINATION: ONE XRAY VIEW OF THE CHEST 02/07/2021 4:32 pm COMPARISON: 09/28/2016, 07/28/2016 HISTORY: ORDERING SYSTEM PROVIDED HISTORY: Look for Pulmonary Infilteartes TECHNOLOGIST PROVIDED HISTORY: Look for Pulmonary Infilteartes Reason for Exam: Look for Pulmonary Infilteartes Acuity: Unknown Type of Exam: Unknown FINDINGS: Heart size within normal limits without evidence of vascular congestion. Lungs appear grossly clear. Subtle haziness over the lower lungs is felt to be due to overlying soft tissue. There is no focal lung consolidation. No significant pleural effusions are seen. There is no acute osseous abnormality. IMPRESSION: No acute cardiopulmonary process suspected Interpreted by: Usama Xavier MD Signed by: Usama Xavier MD 02/07/21 Final result Normal [facility] Drug Scr, Abuse, Uron 2020 Amphetamine(s),Ur Negative Normal NEG [facility] Comment on above: Result Comment: (Positive cutoff 1000 ng/mL) Performed By: #### U HCG #### [facility] [address] [place] [id number] Dam Tender: José Miguel Monzon DO Barbiturate(s),Ur Negative Normal NEG [facility] Comment on above: Result Comment: (Positive cutoff 200 ng/mL) Performed By: #### U HCG #### [facility] [address] [place] [id number] Dam Tender: José Miguel Monzon DO Benzodiazepine(s) Positive Abnormal NEG [facility] Comment on above: Result Comment: (Positive cutoff 200 ng/mL) Performed By: #### U HCG #### [facility] [address] [place] [phone] Dam Tender: José Miguel Monzon DO Cannabinoid(s),Ur Negative Normal NEG [facility] Comment on above: Result Comment: (Positive cutoff 50 ng/mL) Performed By: #### U HCG #### [facility] [address] [place] [phone] Dam Tender: José Miguel Monzon DO Cocaine Metabolite Negative Normal NEG [facility] Comment on above: Result Comment: (Positive cutoff 300 ng/mL) Performed By: #### U HCG #### [facility] [address] [place] [address] Dam Tender: José Miguel Monzon DO Interpretive Info Assay provides medical screening only. The absence of expected drug(s) and/or Normal [facility] Comment on above: Result Comment: meta bolite(s) may indicate diluted or adulterated urine, limitations of testing or timing of collection. Testing for legal purposes should be confirmed by another method. To request confirmation of test result, please call the lab within 7 days of sample submission. Performed By: #### U HCG #### [facility] [address] [place] [address] Dam Tender: José Miguel Monzon DO Methadone Ql (U) Negative Normal NEG [facility] Comment on above: Result Comment: (Positive cutoff 300 ng/mL) Performed By: #### U HCG #### [facility] [address] [place] [phone] Dam Tender: José Miguel Monzon DO Opiate(s), Ur Negative Normal NEG [facility] Comment on above: Result Comment: (Positive cutoff 300 ng/mL) Performed By: #### U HCG #### [facility] [address] [place] [phone] Dam Tender: José Miguel Monzon DO Oxycodone, Urine Negative Normal NEG [facility] Comment on above: Result Comment: (Positive cutoff 100 ng/mL) Performed By: #### U HCG #### [facility] [address] [place] [address] Dam Tender: José Miguel Monzon DO Phencyclidine, Ur Negative Normal NEG [facility] Comment on above: Result Comment: (Positive cutoff 25 ng/mL) Performed By: #### U HCG #### [facility] [address] [place] [address] Dam Tender: José Miguel Monzon DO Buprenorphrine, Ur NOT REPORTED Normal NEG [facility] Comment on above: Performed By: #### U HCG #### [facility] [address] [place] [phone] Dam Tender: José Miguel Monzon DO MDMA, Urine NOT REPORTED Normal NEG [facility] Comment on above: Performed By: #### U HCG #### [facility] [address] [place] [phone] Dam Tender: José Miguel Monzon DO Methamphetamine, Ur NOT REPORTED Normal NEG [facility] Comment on above: Performed By: #### U HCG #### [facility] [address] [place] [address] Dam Tender: José Miguel Monzon DO Propoxyphene,Urine NOT REPORTED Normal NEG [facility] Comment on above: Performed By: #### U HCG #### [facility] [address] [place] [phone] Dam Tender: José Miguel Monzon DO Tricyclic antidepressants Screen Ql (U) NOT REPORTED Normal NEG [facility] Comment on above: Performed By: #### U HCG #### [facility] [address] [place] [phone] Dam Tender: José Miguel Monzon DO Urinalysis, Routineon 2020 Acetoacetic Acid,Ur Negative Normal NEG [facility] Comment on above: Performed By: #### U HCG #### [facility] [address] [place] [address] Dam Tender: José Miguel Monzon DO Bilirubin, SemiQt,Ur Negative Normal NEG [facility] Comment on above: Performed By: #### U HCG #### [facility] [address] [place] [address] Dam Tender: José Miguel Monzon DO Color (U) YELLOW Normal YEL [facility] Comment on above: Performed By: #### U HCG #### [facility] [address] [place] [phone] Dam Tender: José Miguel Monzon DO Glucose Ql (U) Negative Normal NEG [facility] Comment on above: Performed By: #### U HCG #### [facility] [address] [place] [address] Dam Tender: José Miguel Monzon DO Hemoglobin, Ur MOD Abnormal NEG [facility] Comment on above: Performed By: #### U HCG #### [facility] [place] [address] Dam Tender: José Miguel Monzon DO Leukocyte esterase Test strip Ql (U) LARGE Abnormal NEG [facility] Comment on above: Performed By: #### U HCG #### [facility] [address] [place] [phone] Dam Tender: José Miguel Monzon DO Nitrite,Ur Negative Normal NEG [facility] Comment on above: Performed By: #### U HCG #### [facility] [address] [place] [address] Dam Tender: José Miguel Monzon DO PH,Ur 7.5 Normal 5.0-8.0 [facility] Comment on above: Performed By: #### U HCG #### [facility] [address] [place] [phone] Dam Tender: José Miguel Monzon DO Protein Ql (U) 2+ Abnormal NEG [facility] Comment on above: Performed By: #### U HCG #### [facility] [address] [place] [phone] Dam Tender: José Miguel Monzon DO Spec. [place],Ur 1.019 Normal 1.000-1.030 [facility] Comment on above: Performed By: #### U HCG #### [facility] [address] [place] [address] Dam Tender: José Miguel Monzon DO Turbidity TURBID Abnormal CLEAR [facility] Comment on above: Performed By: #### U HCG #### [facility] [address] [place] [address] Dam Tender: Fanelly, José Miguel, DO Urobilinogen,Ur Normal Normal NORM [facility] Comment on above: Performed By: #### U HCG #### [facility] [place] [address] Dam Tender: José Miguel Monzon DO Comment NOT REPORTED Normal [facility] Comment on above: Performed By: #### U HCG #### [facility] [address] [place] [address] Dam Tender: José Miguel Monzon DO Urinalysis,Microon 1 ----- Normal [facility] Comment on above: Performed By: #### U HCG #### [facility] [address] [place] [address] Dam Tender: José Miguel Monzon DO Bacteria MANY Abnormal NONE [facility] Comment on above: Performed By: #### U HCG #### [facility] [address] [place] [address] Dam Tender: José Miguel Monzon DO Epithelial cells LM Ql (Urine sed) 2 TO 5 Normal [facility] Comment on above: Performed By: #### U HCG #### [facility] [address] [place] [address] Dam Tender: José Miguel Monzon DO Urine RBC's 10 TO 20 Normal [facility] Comment on above: Performed By: #### U HCG #### [facility] [address] [place] [address] Dam Tender: José Miguel Monzon DO Urine WBC's 50 TO 100 Normal [facility] Comment on above: Performed By: #### U HCG #### [facility] [address] [place] [address] Dam Tender: José Miguel Monzon DO Amorphous sediment LM Ql (Urine sed) NOT REPORTED Normal [facility] Comment on above: Performed By: #### U HCG #### [facility] [address] [place] [address] Dam Tender: José Miguel Monzon DO Casts NOT REPORTED Normal [facility] Comment on above: Performed By: #### U HCG #### [facility] [place] [address] Dam Tender: José Miguel Monzon DO Crystals LM Nom (Urine sed) NOT REPORTED Normal NONE [facility] Comment on above: Performed By: #### U HCG #### [facility] [address] [place] [address] Dam Tender: José Miguel Monzon DO Epithelial, Renal NOT REPORTED Normal 0 [facility] Comment on above: Performed By: #### U HCG #### [facility] [address] [place] [address] Dam Tender: José Miguel Monzon DO Mucus Strands NOT REPORTED Normal NONE [facility] Comment on above: Performed By: #### U HCG #### [facility] [place] [address] Dam Tender: José Miguel Monzon DO Other Observations NOT REPORTED Normal NREQ [facility] Comment on above: Performed By: #### U HCG #### [facility] [address] [place] [address] Dam Tender: José Miguel Monzon DO Trichomonas NOT REPORTED Normal NONE [facility] Comment on above: Performed By: #### U HCG #### [facility] [place] [address] Dam Tender: José Miguel Monzon DO Yeast NOT REPORTED Normal NONE [facility] Comment on above: Performed By: #### U HCG #### [facility] [address] [facility] [place] [address] Dam Tender: José Miguel Monzon DO Acetaminophenon 2306 Acetaminophen [Mass/Vol] ug/mL Low 10-30 [facility] Comment on above: Performed By: #### C MPX, REJEC, HCG, ACET, ALCB, SALI #### [facility] [address] [facility] [place] [address] Dam Tender: José Miguel Monzon DO CBC with Diffon 0 Abs. Basophil 0.00 k/uL Normal 0.0-0.2 [facility] Comment on above: Performed By: #### U HCG #### [facility] [place] [address] Dam Tender: José Miguel Monzon DO Abs.Neutrophil (Seg) 3.50 k/uL Normal 1.3-9.1 [facility] Comment on above: Performed By: #### U HCG #### [facility] [place] [address] Dam Tender: José Miguel Monzon DO Basophils/100 WBC (Bld) 1 % Normal 0-2 [facility] Comment on above: Performed By: #### U HCG #### [facility] [place] [address] Dam Tender: José Miguel Monzon DO Eosinophils (Bld) [#/Vol] 0.10 10*3/uL Normal 0.0-0.4 [facility] Comment on above: Performed By: #### U HCG #### [facility] [place] [address] Dam Tender: José Miguel Monzon DO Eosinophils/100 WBC (Bld) 2 % Normal 0-4 [facility] Comment on above: Performed By: #### U HCG #### [facility] [address] [place] [address] Dam Tender: José Miguel Monzon DO Erythrocyte distribution width (RBC) [Ratio] 13.3 % Normal 11.5-14.9 [facility] Comment on above: Performed By: #### U HCG #### [facility] [place] [address] Dam Tender: José Miguel Monzon DO Hematocrit (Bld) [Volume fraction] 35.6 % Low 36-46 [facility] Comment on above: Performed By: #### U HCG #### [facility] [address] [place] [address] Dam Tender: José Miguel Monzon DO Hemoglobin (Bld) [Mass/Vol] 12.1 g/dL Normal 12.0-16.0 [facility] Comment on above: Performed By: #### U HCG #### [facility] [place] [address] Dam Tender: José Miguel Monzon DO Lymphocytes (Bld) [#/Vol] 2.30 10*3/uL Normal 1.0-4.8 [facility] Comment on above: Performed By: #### U HCG #### [facility] [address] [place] [address] Dam Tender: José Miguel Monzon DO Lymphocytes/100 WBC (Bld) 36 % Normal 24-44 [facility] Comment on above: Performed By: #### U HCG #### [facility] [place] [address] Dam Tender: José Miguel Monzon DO MCH (RBC) [Entitic mass] 30.9 pg Normal 26-34 [facility] Comment on above: Performed By: #### U HCG #### [facility] [place] [address] Dam Tender: José Miguel Monzon DO MCHC (RBC) [Mass/Vol] 33.9 g/dL Normal 31-37 [facility] Comment on above: Performed By: #### U HCG #### [facility] [place] [address] Dam Tender: José Miguel Monzon DO MCV (RBC) [Entitic vol] 91.4 fL Normal 80-100 [facility] Comment on above: Performed By: #### U HCG #### [facility] [address] [place], [place] [address] [place] [address] Dam Tender: José Miguel Monzon DO Monocytes (Bld) [#/Vol] 0.40 10*3/uL Normal 0.1-1.3 [facility] Comment on above: Performed By: #### U HCG #### [facility] [address] [place], [place] [address] [facility] [place] [address] Dam Tender: José Miguel Monzon DO Monocytes/100 WBC (Bld) 7 % Normal 1-7 [facility] Comment on above: Performed By: #### U HCG #### [facility] [address] [place] [address] Dam Tender: José Miguel Monzon DO Neutrophil (Seg) 54 % Normal 36-66 [facility] Comment on above: Performed By: #### U HCG #### [facility] [address] [place], [place] [address] [place] [address] Dam Tender: José Miguel Monzon DO Platelet mean volume (Bld) [Entitic vol] 8.6 fL Normal 6.0-12.0 [facility] Comment on above: Performed By: #### U HCG #### [facility] [address] [place] [address] Dam Tender: Fanelly, José Miguel, DO Platelets (Bld) [#/Vol] 212 10*3/uL Normal 150-450 [facility] Comment on above: Performed By: #### U HCG #### [facility] [address] [place] [address] Dam Tender: José Miguel Monzon DO RBC (Bld) [#/Vol] 3.90 10*6/uL Low 4.0-5.2 [facility] Comment on above: Performed By: #### U HCG #### [facility] [address] [place] [address] Dam Tender: José Miguel Monzon DO WBC (Bld) [#/Vol] 6.4 10*3/uL Normal 3.5-11.0 [facility] Comment on above: Performed By: #### U HCG #### [facility] [address] [place] [address] Dam Tender: José Miguel Monzon DO Abs.Imm.Granulocyte NOT REPORTED Normal 0.00-0.30 [facility] Comment on above: Performed By: #### U HCG #### [facility] [address] [place] [address] Dam Tender: José Miguel Monzon DO Auto Diff Performed NOT REPORTED Normal [facility] Comment on above: Performed By: #### U HCG #### [facility] [address] [place] [address] Dam Tender: José Miguel Monzon DO Immature Granulocyte NOT REPORTED Normal 0 [facility] Comment on above: Performed By: #### U HCG #### [facility] [address] [place] [address] Dam Tender: José Miguel Monzon DO NRBC Automated NOT REPORTED Normal [facility] Comment on above: Performed By: #### U HCG #### [facility] [address] [place] [address] Dam Tender: José Miguel Monzon DO Platelet Estimate NOT REPORTED Normal [facility] Comment on above: Performed By: #### U HCG #### [facility] [address] [place] [address] Dam Tender: José Miguel Monzon DO RBC morphology finding Nom (Bld) NOT REPORTED Normal [facility] Comment on above: Performed By: #### U HCG #### [facility] [place] [address] Dam Tender: José Miguel Monzon DO WBC Morphology NOT REPORTED Normal [facility] Comment on above: Performed By: #### U HCG #### [facility] [address] [place] [address] Dam Tender: José Miguel Monzon DO Comp Metabolic Pr/rfx MGon 0 - AST [Catalytic activity/Vol] 17 U/L Normal <32 [facility] Comment on above: Performed By: #### C MPX, REJEC, HCG, ACET, ALCB, SALI #### [facility] [place] [address] Dam Tender: José Miguel Monzon DO Bilirubin [Mass/Vol] mg/dL Low 0.3-1.2 [facility] Comment on above: Performed By: #### C MPX, REJEC, HCG, ACET, ALCB, SALI #### [facility] [place] [address] Dam Tender: José Miguel Monzon DO Potassium [Moles/Vol] 4.4 mmol/L Normal 3.7-5.3 [facility] Comment on above: Result Comment: SPEC IMEN SLIGHTLY HEMOLYZED, RESULTS MAY BE ADVERSELY AFFECTED. Performed By: #### C MPX, REJEC, HCG, ACET, ALCB, SALI #### [facility] [address] [place] [address] Dam Tender: José Miguel Monzon DO (cont.) Normal [facility] Comment on above: Result Comment: Aver age GFR for 30-39 years old: 107 mL/min/1.73sq m Chronic Kidney Disease: <60 mL/min/1.73sq m Kidney failure: <15 mL/min/1.73sq m eGFR calculated using average adult body mass. Additional eGFR calculator available at: http://www.[employer]/multiple_crcl_2012.htm Performed By: #### C MPX, REJEC, HCG, ACET, ALCB, SALI #### [facility] [address] [place] [address] Dam Tender: José Miguel Monzon DO Albumin [Mass/Vol] 3.7 g/dL Normal 3.5-5.2 [facility] Comment on above: Performed By: #### C MPX, REJEC, HCG, ACET, ALCB, SALI #### [facility] [address] [place] [address] Dam Tender: José Miguel Monzon DO Alkaline Phos 42 U/L Normal 35-104 [facility] Comment on above: Performed By: #### C MPX, REJEC, HCG, ACET, ALCB, SALI #### [facility] [address] [facility] [place] [address] Dam Tender: José Miguel Monzon DO ALT [Catalytic activity/Vol] 12 U/L Normal 5-33 [facility] Comment on above: Performed By: #### C MPX, REJEC, HCG, ACET, ALCB, SALI #### [facility] [address] [place] [address] Dam Tender: José Miguel Monzon DO Anion gap [Moles/Vol] 15 mmol/L Normal 9-17 [facility] Comment on above: Performed By: #### C MPX, REJEC, HCG, ACET, ALCB, SALI #### [facility] [address] [place] [address] Dam Tender: José Miguel Monzon DO Calcium [Mass/Vol] 9.4 mg/dL Normal 8.6-10.4 [facility] Comment on above: Performed By: #### C MPX, REJEC, HCG, ACET, ALCB, SALI #### [facility] [address] [place] [address] Dam Tender: José Miguel Monzon DO Chloride [Moles/Vol] 100 mmol/L Normal 98-107 [facility] Comment on above: Performed By: #### C MPX, REJEC, HCG, ACET, ALCB, SALI #### [facility] [address] [place] [address] Dam Tender: José Miguel Monzon DO CO2 [Moles/Vol] 21 mmol/L Normal 20-31 [facility] Comment on above: Performed By: #### C MPX, REJEC, HCG, ACET, ALCB, SALI #### [facility] [address] [place] [address] Dam Tender: José Miguel Monzon DO Creatinine [Mass/Vol] 0.51 mg/dL Normal 0.50-0.90 [facility] Comment on above: Performed By: #### C MPX, REJEC, HCG, ACET, ALCB, SALI #### [facility] [address] [place] [address] Dam Tender: José Miguel Monzon DO GFR, Amer >60 Normal >60 [facility] Comment on above: Performed By: #### C MPX, REJEC, HCG, ACET, ALCB, SALI #### [facility] [address] [place] [address] Dam Tender: José Miguel Monzon DO GFR,non Amer >60 Normal >60 [facility] Comment on above: Performed By: #### C MPX, REJEC, HCG, ACET, ALCB, SALI #### [facility] [address] [place] [address] Dam Tender: José Miguel Monzon DO Glucose [Mass/Vol] 111 mg/dL High 70-99 [facility] Comment on above: Performed By: #### C MPX, REJEC, HCG, ACET, ALCB, SALI #### [facility] [address] [place] [address] Dam Tender: José Miguel Monzon DO Protein [Mass/Vol] 6.6 g/dL Normal 6.4-8.3 [facility] Comment on above: Performed By: #### C MPX, REJEC, HCG, ACET, ALCB, SALI #### [facility] [address] [facility] [place] [address] Dam Tender: José Miguel Monzon DO Sodium [Moles/Vol] 136 mmol/L Normal 135-144 [facility] Comment on above: Performed By: #### C MPX, REJEC, HCG, ACET, ALCB, SALI #### [facility] [address] [facility] [place] [address] Dam Tender: José Miguel Monzon DO Urea nitrogen [Mass/Vol] 14 mg/dL Normal 6-20 [facility] Comment on above: Performed By: #### C MPX, REJEC, HCG, ACET, ALCB, SALI #### [facility] [address] [place] [address] Dam Tender: José Miguel Monzon DO Albumin/Glob Ratio NOT REPORTED Normal 1.0-2.5 [facility] Comment on above: Performed By: #### C MPX, REJEC, HCG, ACET, ALCB, SALI #### [facility] [address] [facility] [place] [address] Dam Tender: José Miguel Monzon DO BUN/CRE Ratio NOT REPORTED Normal 9-20 [facility] Comment on above: Performed By: #### C MPX, REJEC, HCG, ACET, ALCB, SALI #### [facility] [address] [facility] [place] [place] [address] Dam Tender: José Miguel Monzon DO Staging: NOT REPORTED Normal [facility] Comment on above: Performed By: #### C MPX, REJEC, HCG, ACET, ALCB, SALI #### [facility] [address] [facility] [place] [address] Dam Tender: José Miguel Monzon DO Ethanol Alcoholon 02-05-2021 Ethanol [Mass/Vol] mg/dL Normal <10 [facility] Comment on above: Performed By: #### C MPX, REJEC, HCG, ACET, ALCB, SALI #### [facility] [address] [facility] [place] [address] Dam Tender: José Miguel Monzon DO Ethanol percent <0.010 Normal [facility] Comment on above: Performed By: #### C MPX, REJEC, HCG, ACET, ALCB, SALI #### [facility] [address] [facility] [place] [address] Dam Tender: José Miguel Monzon DO HCG Screen, Bloodon 02-06-20 HCG Screen, Blood Negative Normal NEG [facility] Comment on above: Result Comment: Spec imens with hCG levels near the threshold of the test (25 mIU/mL) may give a negative or indeterminate result. In such cases, another test should be performed with a new specimen in 48-72 hours. If early is suspected clinically in this setting, correlation with quantitative serum b-hCG level is suggested. Performed By: #### C MPX, REJEC, HCG, ACET, ALCB, SALI #### [facility] [address] [facility] [place] [address] Dam Tender: José Migeul Monzon DO [id number] 02-05-2021 SARS-CoV-2 (COVID-19) RNA LUKASZ+probe Ql (Unsp spec) Not detected Normal NOTDET [facility] Comment on above: Result Comment: Rapid NAAT: The specimen is NEGATIVE for SARS-CoV-2, the novel coronavirus associated with COVID-19. The ID NOW COVID-19 assay is designed to detect the virus that causes COVID-19 in patients with signs and symptoms of infection who are suspected of COVID-19. An individual without symptoms of COVID-19 and who is not shedding SARS-CoV-2 virus would expect to have a negative (not detected) result in this assay. Negative results should be treated as presumptive and, if inconsistent with clinical signs and symptoms or necessary for patient management, should be tested with an alternative molecular assay. Negative results do not preclude SARS-CoV-2 infection and should not be used as the sole basis for patient management decisions. Fact sheet for Healthcare Providers: https://www.fda.gov/media/375304/download Fact sheet for Patients: https://www.fda.gov/media/511939/download Methodology: Isothermal Nucleic Acid Amplification Performed By: #### U HCG #### [facility] [address] [facility] [place] [address] Dam Tender: José Miguel Monzon DO Salicylateon 5 Salicylate <1 Low 3-10 [facility] Comment on above: Performed By: #### C MPX, REJEC, HCG, ACET, ALCB, SALI #### [facility] [address] [facility] [place] [address] Dam Tender: José Miguel Monzon DO Specimen Rejectionon 021 Reason for rejection Unable to perform testing: Specimen quantity not sufficient. Normal [facility] Comment on above: Performed By: #### C MPX, REJEC, HCG, ACET, ALCB, SALI #### [facility] [address] [facility] [place] [address] Dam Tender: José Miguel Monzon DO Source of sample .BLOOD Normal [facility] Comment on above: Performed By: #### C MPX, REJEC, HCG, ACET, ALCB, SALI #### [facility] [address] [facility] [place] [address] Dam Tender: José Miguel Mnozon DO Test ordered CDP Normal [facility] Comment on above: Performed By: #### C MPX, REJEC, HCG, ACET, ALCB, SALI #### [facility] [address] [facility] [place] [address] Dam Tender: José Miguel Monzon DO ----- NOT REPORTED [facility] Comment on above: Performed By: #### C MPX, REJEC, HCG, ACET, ALCB, SALI #### [facility] [address] [facility] [place] [address] Dam Tender: José Miguel Monzon DO HPV DNA High Riskon 10-22-20 20 HPV Genotype 16 Detected [facility] Comment on above: Performed By: #### U HCG #### [facility] [place] [address] Dam Tender: José Miguel Monzon DO HPV Genotype 18 Not detected Normal [facility] Comment on above: Result Comment: (NOT E) INTERPRETIVE INFORMATION: HPV by Nucleic Acid Amplification This test detects High Risk HPV types (16, 18, 31, 33, 35, 39, 45, 51, 52, 56, 58, 59, 66, and 68) and differentiates HPV 16 and 18 associated with cervical cancer and its precursor lesions. Sensitivity may be affected by specimen collection methods, stage of infection, and the presence of interfering substances. Results should be interpreted in conjunction with other available laboratory and clinical data. A negative high-risk HPV result does not exclude the presence of other high-risk HPV types, the possibility of future cytologic abnormalities, underlying CIN2-3, or cancer. This test is intended for medical purposes only and is not valid for the evaluation of suspected sexual abuse or for other forensic purposes. HPV testing should not be used for screening or management of atypical squamous cells of undetermined significance (ASCUS) in women under age 21. Performed By: [address] [place] [address] Industrial Hygiene Engineer: Rebeca Alvarez MD Performed By: #### U HCG #### [facility] [address] [facility] [place] [address] Dam Tender: José Miguel Monzon DO HPV Other High Risk Detected Normal [facility] Comment on above: Performed By: #### U HCG #### [facility] [address] [facility] [place] [address] Dam Tender: José Miguel Monzon DO C.trachomatis N.gonorrhoeae DNA, Urineon 07-26-2020 C. trachomatis DNA ,Urine Negative NEGATIVE [facility] [place] Comment on above: CHLAMYDIA TRACHOMATI S DNA not detected by nucleic acid amplification. This test is intended for medical purposes only and is not valid for the evaluation of suspected sexual abuse or for other forensic purposes. In certain contexts, culture may be required to meet applicable laws and regulations for diagnosis of C. trachomatis and N. gonorrhoeae infections. Per 2014 CDC recommendations, this test does not include confirmation of positive results by an alternative nucleic acid target. N. gonorrhoeae DNA, Urine Negative NEGATIVE [facility] [place] Comment on above: NEISSERIA GONORRHOEA E DNA not detected by nucleic acid amplification. This test is intended for medical purposes only and is not valid for the evaluation of suspected sexual abuse or for other forensic purposes. In certain contexts, culture may be required to meet applicable laws and regulations for diagnosis of C. trachomatis and N. gonorrhoeae infections. Per 2014 CDC recommendations, this test does not include confirmation of positive results by an alternative nucleic acid target. Specimen Description .URINE [facility], [place] Chlamydia/GC DNA, Uron 07-26 Chlamydia Probe, Ur Negative Normal NEG [facility] Comment on above: Result Comment: CHLA MYDIA TRACHOMATIS DNA not detected by nucleic acid amplification. This test is intended for medical purposes only and is not valid for the evaluation of suspected sexual abuse or for other forensic purposes. In certain contexts, culture may be required to meet applicable laws and regulations for diagnosis of C. trachomatis and N. gonorrhoeae infections. Per 2014 CDC recommendations, this test does not include confirmation of positive results by an alternative nucleic acid target. Performed By: #### U HCG #### [facility] [address] [facility]. [place], [place] [id number] Dam Tender: José Miguel Monzon DO Gonorrhea Probe, Ur Negative Normal NEG [facility] Comment on above: Result Comment: NEIS SERIA GONORRHOEAE DNA not detected by nucleic acid amplification. This test is intended for medical purposes only and is not valid for the evaluation of suspected sexual abuse or for other forensic purposes. In certain contexts, culture may be required to meet applicable laws and regulations for diagnosis of C. trachomatis and N. gonorrhoeae infections. Per 2014 CDC recommendations, this test does not include confirmation of positive results by an alternative nucleic acid target. Performed By: #### U HCG #### [facility] [address] [facility] [place] [place] [address] Dam Tender: José Miguel Monzon DO REALTY LOAN SPECIALIST Cytologyon 07-25-2020 Cytology report Cyto stain.thin prep Doc (Cvx/Vag) INTERPRETATION Cervical material, (ThinPrep vial, Imaging-assisted review): Specimen Adequacy: Satisfactory for evaluation. - Endocervical/transfo rmation zone component present. 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 Atypical squamous cells of undetermined significance, cannot exclude high grade squamous intraepithelial lesion (ASC-H). Comments: High Risk HPV testing was ordered. Fixture Maker: GRACE Mclain M.D. Electronically Signed Out sls/07/25/2020 Procedure/Addendum HPV Procedure Report Date Ordered: 07/25/2020 Status: Complete Date Complete: 07/25/2020 By: Date Reported: Source: 1: Cervical material, (ThinPrep vial, Imaging-assisted review) Clinical History Co-Test: ThinPrep Pap with high risk HPV testing GYNECOLOGIC CYTOLOGY REPORT Patient Name: LORNA DEUTSCH [facility] Rec: [id number] Path Number: [id number] [facility] ANATOMIC PATHOLOGY [facility]. [place], [place] [address] [place] HPV DNA High Riskon 07-25-20 20 HVP Source .GENITAL - NOT SPECIFIED Normal [facility] Comment on above: Performed By: #### U HCG #### [facility] [address] [place] [address] Dam Tender: José Miguel Monzon DO Otheron 07-25-2020 EXAMINATION: PELVIC ULTRASOUND 07/23/2020 TECHNIQUE: Transabdominal and transvaginal pelvic ultrasound was performed. COMPARISON: 05/28/2016 HISTORY: ORDERING SYSTEM PROVIDED HISTORY: AUB TECHNOLOGIST PROVIDED HISTORY: Begin transabdominal and then transvaginal. AUB FINDINGS: Measurements: Uterus: 7.0 x 3.5 x 4.8 cm Endometrial stripe: 6 mm Right Ovary: 2.7 x 1.9 x 2.3 cm Left Ovary: 5.5 x 2.3 x 3.2 cm Ultrasound Findings: Uterus: Uterus demonstrates normal myometrial echotexture. Endometrial stripe: Endometrial stripe is within normal limits. Right Ovary: Right ovary is within normal limits. Left Ovary: Left ovary is within normal limits. There is a 3.2 x 2.4 x 2.7 cm simple left ovarian cyst. Free Fluid: Small volume left adnexal free fluid. [place], Mhpn Incoming Radiant Results From nexTune/iPling - 07/25/2020 7:17 PM EDT EXAMINATION: PELVIC ULTRASOUND 07/23/2020 TECHNIQUE: Transabdominal and transvaginal pelvic ultrasound was performed. COMPARISON: 05/28/2016 HISTORY: ORDERING SYSTEM PROVIDED HISTORY: AUB TECHNOLOGIST PROVIDED HISTORY: Begin transabdominal and then transvaginal. AUB FINDINGS: Measurements: Uterus: 7.0 x 3.5 x 4.8 cm Endometrial stripe: 6 mm Right Ovary: 2.7 x 1.9 x 2.3 cm Left Ovary: 5.5 x 2.3 x 3.2 cm Ultrasound Findings: Uterus: Uterus demonstrates normal myometrial echotexture. Endometrial stripe: Endometrial stripe is within normal limits. Right Ovary: Right ovary is within normal limits. Left Ovary: Left ovary is within normal limits. There is a 3.2 x 2.4 x 2.7 cm simple left ovarian cyst. Free Fluid: Small volume left adnexal free fluid. IMPRESSION: Unremarkable pelvic ultrasound. 3.2 cm simple left ovarian cyst. No follow-up imaging is recommended. [place] Unremarkable pelvic ultrasound. 3.2 cm simple left ovarian cyst. No follow-up imaging is recommended. [place] US NON OB TRANSVAGINALon US NON OB TRANSVAGINAL EXAMINATION: PELVIC ULTRASOUND 07/23/2020 TECHNIQUE: Transabdominal and transvaginal pelvic ultrasound was performed. COMPARISON: 05/28/2016 HISTORY: ORDERING SYSTEM PROVIDED HISTORY: AUB TECHNOLOGIST PROVIDED HISTORY: Begin transabdominal and then transvaginal. AUB FINDINGS: Measurements: Uterus: 7.0 x 3.5 x 4.8 cm Endometrial stripe: 6 mm Right Ovary: 2.7 x 1.9 x 2.3 cm Left Ovary: 5.5 x 2.3 x 3.2 cm Ultrasound Findings: Uterus: Uterus demonstrates normal myometrial echotexture. Endometrial stripe: Endometrial stripe is within normal limits. Right Ovary: Right ovary is within normal limits. Left Ovary: Left ovary is within normal limits. There is a 3.2 x 2.4 x 2.7 cm simple left ovarian cyst. Free Fluid: Small volume left adnexal free fluid. IMPRESSION: Unremarkable pelvic ultrasound. 3.2 cm simple left ovarian cyst. No follow-up imaging is recommended. Interpreted by: Micheal Montesinos MD Signed by: Micheal Montesinos MD 07/25/20 Final result Normal [facility] US PELVIS COMPLETEon 020 US PELVIS COMPLETE EXAMINATION: PELVIC ULTRASOUND 07/23/2020 TECHNIQUE: Transabdominal and transvaginal pelvic ultrasound was performed. COMPARISON: 05/28/2016 HISTORY: ORDERING SYSTEM PROVIDED HISTORY: AUB TECHNOLOGIST PROVIDED HISTORY: Begin transabdominal and then transvaginal. AUB FINDINGS: Measurements: Uterus: 7.0 x 3.5 x 4.8 cm Endometrial stripe: 6 mm Right Ovary: 2.7 x 1.9 x 2.3 cm Left Ovary: 5.5 x 2.3 x 3.2 cm Ultrasound Findings: Uterus: Uterus demonstrates normal myometrial echotexture. Endometrial stripe: Endometrial stripe is within normal limits. Right Ovary: Right ovary is within normal limits. Left Ovary: Left ovary is within normal limits. There is a 3.2 x 2.4 x 2.7 cm simple left ovarian cyst. Free Fluid: Small volume left adnexal free fluid. IMPRESSION: Unremarkable pelvic ultrasound. 3.2 cm simple left ovarian cyst. No follow-up imaging is recommended. Interpreted by: Micheal Montesinos MD Signed by: Micheal Montesinos MD 07/25/20 Final result Normal [facility] Cytologyon 07-24-2020 Cytology (NOTE) INTERPRETATION Cervical material, (ThinPrep vial, Imaging-assisted review): Specimen Adequacy: Satisfactory for evaluation. - Endocervical/transfo rmation zone component present. 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 Atypical squamous cells of undetermined significance, cannot exclude high grade squamous intraepithelial lesion (ASC-H). Comments: High Risk HPV testing was ordered. Fixture Maker: GRACE Mclain M.D. Electronically Signed Out sls07/25/2020 Procedure/Addendum HPV Procedure Report Date Ordered: 07/25/2020 Status: Signed Out Date Complete: 07/25/2020 By: SUBHA Blair(ASCP) Date Reported: 08/03/2020 INTERPRETATION Aptima HPV DNA High Risk HPV Sample Thin Prep (Ref Range) HPV Type 16 Detected (Not Detected) HPV Type 18 Not Detected (Not Detected) Other High Risk HPV Detected (Not Detected) HPV by Nucleic Acid Amplification This test detects high-risk HPV types (16, 18, 31, 33, 35, 39, 45, 51, 52, 56, 58, 59, 66, and 68) and differentiates HPV 16 and 18 associated with cervical cancer and its precursor lesions. Sensitivity may be affected by specimen collection methods, stage of infection, and the presence of interfering substances. Results should be interpreted in conjunction with other available laboratory and clinical data. A negative high-risk HPV result does not exclude the presence of other high-risk HPV types, the possibility of future cytologic abnormalities, underlying CIN2-3 or cancer. This test is intended for medical purposes only and is not valid for the evaluation of suspected sexual abuse or for other forensic purposes. HPV testing should not be used for screening or management of atypical squamous cells of undetermined significance (ASCUS) in women under age 21. NOTE: HPV Type 16 and Other for Vaginal specimens only The specimen submitted for testing did not meet [facility] submission guidelines. Testing was performed on a specimen that did not meet validated specimen type requirements. Performance characteristics of this assay may be affected. Interpret results with caution. Please refer to the [facility] Test Directory for information on specimen acceptability: [email or web address] . Performed By: [facility] [place] [address] Industrial Hygiene Engineer: Rebeca Alvarez MD Source: 1: Cervical material, (ThinPrep vial, Imaging-assisted review) Clinical History Co-Test: ThinPrep Pap with high risk HPV testing GYNECOLOGIC CYTOLOGY REPORT Patient Name: LORNA DEUTSCH [facility] Rec: [id number] Path Number: [id number] [facility] ANATOMIC PATHOLOGY [address] [place] [id number] [facility] Comment on above: Performed By: #### A HCV, HIVCMB #### [address] [id number] Dam Tender: Bryan Cruz MD Otheron 07-24-2020 Direct Exam Negative [place] Vaginitis DNA Probeon 2019 Vaginitis DNA Probe Specimen Description .VAGINA Special Requests NOT REPORTED Direct Exam NEGATIVE for Jose Ramon sp. NEGATIVE for Trichomonas vaginalis NEGATIVE for Gardnerella vaginalis Method of testing is a DNA probe intended for detection and identification of Jose Ramon species, Gardnerella vaginalis, and Trichomonas vaginalis nucleic acid in vaginal fluid specimens from patients with symptoms of vaginitis/vaginosis. Report Status FINAL 07/24/2020 [facility] Comment on above: Performed By: #### U HCG #### [facility] [address] [place] [address] Dam Tender: José Miguel Monzon DO Direct Exam Method of testing is a DNA probe intended for detection and identification of Jose Ramon species, Gardnerella vaginalis, and Trichomonas vaginalis nucleic acid in vaginal fluid specimens from patients with symptoms of vaginitis/vaginosis. [place] Special Requests NOT REPORTED [place] Specimen Description .VAGINA [place], [place] CBC with DIFFon 07-23-2020 Basophils (Bld) [#/Vol] 0.00 10*3/uL [place] Basophils/100 WBC (Bld) 0 % 0 - 2 % [place] Differential Type NOT REPORTED [place] Eosinophils (Bld) [#/Vol] 0.20 10*3/uL [place] Eosinophils/100 WBC (Bld) 4 % 0 - 4 % [place] Erythrocyte distribution width (RBC) [Ratio] 13.3 % 11.5 - 14.9 % [place] Hematocrit (Bld) [Volume fraction] 40.0 % 36 - 46 % [place] Hemoglobin (Bld) [Mass/Vol] 13.7 g/dL 12 - 16 g/dL [place] Interpretation and review of laboratory results Abnormal [place] Lymphocytes (Bld) [#/Vol] 2.64 10*3/uL [place] Lymphocytes/100 WBC (Bld) 54 % High 24 - 44 % [place] MCH (RBC) [Entitic mass] 31.4 pg 26 - 34 pg [place] MCHC (RBC) [Mass/Vol] 34.2 g/dL 31 - 37 g/dL M [place] MCV (RBC) [Entitic vol] 91.9 fL 80 - 100 fL [place] Monocytes (Bld) [#/Vol] 0.20 10*3/uL [place] Monocytes/100 WBC (Bld) 4 % 1 - 7 % [place] Morphology Dami (Bld) [Interp] Normal [place] Platelet mean volume (Bld) [Entitic vol] 10.1 fL 6 - 12 fL [place] Platelets (Bld) [#/Vol] NOT REPORTED [place] Platelets (Bld) [#/Vol] 142 10*3/uL Low [place] RBC (Bld) [#/Vol] 4.36 10*6/uL 4 - 5.2 m/uL [place] RBC morphology finding Nom (Bld) NOT REPORTED [place] Segmented neutrophils/100 WBC (Bld) 38 % 36 - 66 % [place] Segs Absolute 1.86 [place] WBC (Bld) [#/Vol] NOT REPORTED per 100 WBC [place] WBC (Bld) [#/Vol] 4.9 10*3/uL [place] WBC Morphology NOT REPORTED [place] CBC with Diffon 07-23-2020 Abs. Basophil 0.00 k/uL Normal 0.0-0.2 [facility] Comment on above: Performed By: #### U HCG #### [facility] [place] [address] Dam Tender: José Miguel Monzon DO Abs.Neutrophil (Seg) 1.86 k/uL Normal 1.3-9.1 [facility] Comment on above: Performed By: #### U HCG #### [facility] [place] [address] Dam Tender: José Miguel Monzon DO Basophils/100 WBC (Bld) 0 % Normal 0-2 [facility] Comment on above: Performed By: #### U HCG #### [facility] [place] [address] Dam Tender: José Miguel Monzon DO Eosinophils (Bld) [#/Vol] 0.20 10*3/uL Normal 0.0-0.4 [facility] Comment on above: Performed By: #### U HCG #### [facility] [address] [place] [id number] Dam Tender: José Miguel Monzon DO Eosinophils/100 WBC (Bld) 4 % Normal 0-4 [facility] Comment on above: Performed By: #### U HCG #### [facility] [place] [place] [address] Dam Tender: José Miguel Monzon DO Lymphocytes (Bld) [#/Vol] 2.64 10*3/uL Normal 1.0-4.8 [facility] Comment on above: Performed By: #### U HCG #### [facility] [address] [place] [address] Dam Tender: José Miguel Monzon DO Lymphocytes/100 WBC (Bld) 54 % High 24-44 [facility] Comment on above: Performed By: #### U HCG #### [facility] [address] [place] [address] Dam Tender: José Miguel Monzon DO Monocytes (Bld) [#/Vol] 0.20 10*3/uL Normal 0.1-1.3 [facility] Comment on above: Performed By: #### U HCG #### [facility] [address] [place] [address] Dam Tender: José Miguel Monzon DO Monocytes/100 WBC (Bld) 4 % Normal 1-7 [facility] Comment on above: Performed By: #### U HCG #### [facility] [place] [address] Dam Tender: José Miguel Monzon DO Morphology Dami (Bld) [Interp] Normal Normal [facility] Comment on above: Performed By: #### U HCG #### [facility] [place] [address] Dam Tender: José Miguel Monzon DO Neutrophil (Seg) 38 % Normal 36-66 [facility] Comment on above: Performed By: #### U HCG #### [facility] [address] [facility] [place] [place] [address] Dam Tender: José Miguel Monzon DO Erythrocyte distribution width (RBC) [Ratio] 13.3 % Normal 11.5-14.9 [facility] Comment on above: Performed By: #### U HCG #### [facility] [address] [place] [address]. [place] [address] Dam Tender: José Miguel Monzon DO Hematocrit (Bld) [Volume fraction] 40.0 % Normal 36-46 [facility] Comment on above: Performed By: #### U HCG #### [facility] [address] [place] [address]. [place] [address] Dam Tender: José Miguel Monzon DO Hemoglobin (Bld) [Mass/Vol] 13.7 g/dL Normal 12.0-16.0 [facility] Comment on above: Performed By: #### U HCG #### [facility] [address] [place] [address] Dam Tender: José Miguel Monzon DO MCH (RBC) [Entitic mass] 31.4 pg Normal 26-34 [facility] Comment on above: Performed By: #### U HCG #### [facility] [address] [place] [address] Dam Tender: José Miguel Monzon DO MCHC (RBC) [Mass/Vol] 34.2 g/dL Normal 31-37 [facility] Comment on above: Performed By: #### U HCG #### [facility] [address] [place] [address] Dam Tender: José Miguel Monzon DO MCV (RBC) [Entitic vol] 91.9 fL Normal 80-100 [facility] Comment on above: Performed By: #### U HCG #### [facility] [address] [place] [address] Dam Tender: José Miguel Monzon DO Platelet mean volume (Bld) [Entitic vol] 10.1 fL Normal 6.0-12.0 [facility] Comment on above: Performed By: #### U HCG #### [facility] [place] [address] Dam Tender: José Miguel Monzon DO Platelets (Bld) [#/Vol] 142 10*3/uL Low 150-450 [facility] Comment on above: Performed By: #### U HCG #### [facility] [address] [place] [address] Dam Tender: José Miguel Monzon DO RBC (Bld) [#/Vol] 4.36 10*6/uL Normal 4.0-5.2 [facility] Comment on above: Performed By: #### U HCG #### [facility] [address] [place] [address] Dam Tender: José Miguel Moznon DO WBC (Bld) [#/Vol] 4.9 10*3/uL Normal 3.5-11.0 [facility] Comment on above: Performed By: #### U HCG #### [facility] [address] [place] [address] Dam Tender: José Miguel Monzon DO Abs.Imm.Granulocyte NOT REPORTED Normal 0.00-0.30 [facility] Comment on above: Performed By: #### U HCG #### [facility] [address] [place] [address] Dam Tender: José Miguel Monzon DO Auto Diff Performed NOT REPORTED Normal [facility] Comment on above: Performed By: #### U HCG #### [facility] [address] [place] [address] Dam Tender: José Miguel Monzon DO Immature Granulocyte NOT REPORTED Normal 0 [facility] Comment on above: Performed By: #### U HCG #### [facility] [place] [address] Dam Tender: José Miguel Monzon DO NRBC Automated NOT REPORTED Normal [facility] Comment on above: Performed By: #### U HCG #### [facility] [place] [address] Dam Tender: José Miguel Monzon DO Platelet Estimate NOT REPORTED Normal [facility] Comment on above: Performed By: #### U HCG #### [facility] [address] [place] [address] Dam Tender: José Miguel Monzon DO RBC morphology finding Nom (Bld) NOT REPORTED Normal [facility] Comment on above: Performed By: #### U HCG #### [facility] [address] [place] [address] Dam Tender: José Miguel Monzon DO WBC Morphology NOT REPORTED Normal [facility] Comment on above: Performed By: #### U HCG #### [facility] [address] [place] [address] Dam Tender: José Miguel Monzon DO HCG, ,Urineon 07-23 Beta HCG ( test) Ql (U) Negative Normal NEG [facility] Comment on above: Result Comment: Spec imens with hCG levels near the threshold of the test (25 mIU/mL) may give a negative or indeterminate result. In such cases, another test should be performed with a new specimen in 48-72 hours. If early is suspected clinically in this setting, correlation with quantitative serum b-hCG level is suggested. Performed By: #### U HCG #### [facility] [address] [place] [address]. [place] [address] Dam Tender: José Miguel Monzon DO Beta HCG ( test) Ql (U) Negative NEGATIVE [place] Comment on above: Specimens with hCG l evels near the threshold of the test (25 mIU/mL) may give a negative or indeterminate result. In such cases, another test should be performed with a new specimen in 48-72 hours. If early is suspected clinically in this setting, correlation with quantitative serum b-hCG level is suggested. Otheron 07-23-2020 Immature granulocytes (Bld) [#/Vol] NOT REPORTED [place] EKG 12 Leadon 07-21-2020 Atrial Rate 64 BPM [place] P Har[place] 54 degrees [place] P-R Interval 138 ms [place] Q-T Interval 384 ms [place] QRS Duration 92 ms [place] QTc Calculation (Bazett) 396 ms [place] R Harrell 66 degrees [facility], [place] T Harrell 66 degrees [place] Ventricular Rate 64 BPM [place], Mhpn Incoming Ekg Results From [facility] - 07/21/2020 9:25 AM EDT Normal sinus rhythm Normal ECG No previous ECGs available [place] Normal sinus rhythm Normal ECG No previous ECGs available [place] HIV Ag/Abon 07-21-2020 HIV Ag/Ab Non-Reactive Normal NR [facility] Comment on above: Result Comment: No l aboratory evidence of HIV infection. If acute HIV infection is suspected, consider testing for HIV-1 RNA. Performed By: #### A HCV, HIVCMB #### [facility] [place] [address] Dam Tender: Bryan Cruz MD HIV Screenon 07-21-2020 HIV Ag/Ab NONREACTIVE NONREACTIVE [place] Comment on above: No laboratory eviden ce of HIV infection. If acute HIV infection is suspected, consider testing for HIV-1 RNA. T.pallidum Ab Screenon 07-21 T.pallidum Ab Screen Non-Reactive Normal NR [facility] Comment on above: Result Comment: T. pallidum antibodies are not detected. There is no serological evidence of infection with T. pallidum (early primary syphilis cannot be excluded). Retest in 2-4 weeks if syphilis is clinically suspect. Performed By: #### A HCV, HIVCMB #### [facility] [place] [address] Dam Tender: Bryan Cruz MD T. pallidum, IgG NONREACTIVE NONREACTIVE [place] Comment on above: T. pallidum antibodies are not detected. There is no serological evidence of infection with T. pallidum (early primary syphilis cannot be excluded). Retest in 2-4 weeks if syphilis is clinically suspect. Valproic Acidon 07-21-2020 Date last dose, [id number] Normal [facility] Comment on above: Performed By: #### A HCV, HIVCMB #### [facility] [address] [place] [address] Dam Tender: Bryan Cruz MD Dose amount 1000 MG [facility] Comment on above: Performed By: #### A HCV, HIVCMB #### [facility] [address] [place] [phone] Dam Tender: Bryan Cruz MD Time last dose, 2040 [facility] Comment on above: Performed By: #### A HCV, HIVCMB #### [facility] [address] [place] [address] Dam Tender: Bryan Cruz MD Valproic Acid 95 ug/mL Normal 50-125 [facility] Comment on above: Performed By: #### A HCV, HIVCMB #### [facility] [address] [place] [address] Dam Tender: Bryan Cruz MD Valproic Acid Lvl 95 ug/mL 50 - 125 ug/mL [facility] Valproic Date last dose [id number] [facility] Valproic Dose amount [address] [facility] Valproic Time last dose 2040 [facility] [place] CBC with Diffon 07-20-2020 Abs. Basophil 0.00 k/uL Normal 0.0-0.2 [facility] Comment on above: Performed By: #### A HCV, HIVCMB #### [address] [address] Dam Tender: Bryan Cruz MD Abs.Neutrophil (Seg) 1.80 k/uL Normal 1.3-9.1 [facility] Comment on above: Performed By: #### A HCV, HIVCMB #### [address] [address] Dam Tender: Bryan Cruz MD Basophils/100 WBC (Bld) 0 % Normal 0-2 [facility] Comment on above: Performed By: #### A HCV, HIVCMB #### [address] [address] Dam Tender: Bryan Cruz MD Eosinophils (Bld) [#/Vol] 0.04 10*3/uL Normal 0.0-0.4 [facility] Comment on above: Performed By: #### A HCV, HIVCMB #### [address] [address] Dam Tender: Bryan Cruz MD Eosinophils/100 WBC (Bld) 1 % Normal 0-4 [facility] Comment on above: Performed By: #### A HCV, HIVCMB #### [address] [address] Dam Tender: Bryan Cruz MD Lymphocytes (Bld) [#/Vol] 1.92 10*3/uL Normal 1.0-4.8 [facility] Comment on above: Performed By: #### A HCV, HIVCMB #### [address] [address] Dam Tender: Bryan Cruz MD Lymphocytes/100 WBC (Bld) 48 % High 24-44 [facility] Comment on above: Performed By: #### A HCV, HIVCMB #### [address] [address] Dam Tender: Bryan Cruz MD Monocytes (Bld) [#/Vol] 0.24 10*3/uL Normal 0.1-1.3 [facility] Comment on above: Performed By: #### A HCV, HIVCMB #### [address] [address] Dam Tender: Bryan Cruz MD Monocytes/100 WBC (Bld) 6 % Normal 1-7 [facility] Comment on above: Performed By: #### A HCV, HIVCMB #### [address] [address] [place] Tender: Bryan Cruz MD Morphology Dami (Bld) [Interp] Normal Normal [facility] Comment on above: Performed By: #### A HCV, HIVCMB #### [address] [address] [place] Tender: Bryan Cruz MD Neutrophil (Seg) 45 % Normal 36-66 [facility] Comment on above: Performed By: #### A HCV, HIVCMB #### [address] [address] [place] Tender: Bryan Cruz MD Erythrocyte distribution width (RBC) [Ratio] 13.6 % Normal 11.5-14.9 [facility] Comment on above: Performed By: #### A HCV, HIVCMB #### [address] [address] [place] Tender: Bryan Crzu MD Hematocrit (Bld) [Volume fraction] 41.6 % Normal 36-46 [facility] Comment on above: Performed By: #### A HCV, HIVCMB #### [address] [address] [place] Tender: Bryan Cruz MD Hemoglobin (Bld) [Mass/Vol] 13.9 g/dL Normal 12.0-16.0 [facility] Comment on above: Performed By: #### A HCV, HIVCMB #### [address] [address] [place] Tender: Bryan Cruz MD MCH (RBC) [Entitic mass] 31.5 pg Normal 26-34 [facility] Comment on above: Performed By: #### A HCV, HIVCMB #### [address] [address] [place] Tender: Bryan Cruz MD MCHC (RBC) [Mass/Vol] 33.5 g/dL Normal 31-37 [facility] Comment on above: Performed By: #### A HCV, HIVCMB #### [address] [address] [place] Tender: Bryan Cruz MD MCV (RBC) [Entitic vol] 94.1 fL Normal 80-100 [facility] Comment on above: Performed By: #### A HCV, HIVCMB #### [address] [address] [place] Tender: Bryan Cruz MD Platelet mean volume (Bld) [Entitic vol] 9.0 fL Normal 6.0-12.0 [facility] Comment on above: Performed By: #### A HCV, HIVCMB #### [address] [address] [place] Tender: Bryan Cruz MD Platelets (Bld) [#/Vol] 159 10*3/uL Normal 150-450 [facility] Comment on above: Performed By: #### A HCV, HIVCMB #### [address] [address] [place] Tender: Bryan Cruz MD RBC (Bld) [#/Vol] 4.42 10*6/uL Normal 4.0-5.2 [facility] Comment on above: Performed By: #### A HCV, HIVCMB #### [address] [address] [place]: Bryan Cruz MD WBC (Bld) [#/Vol] 4.0 10*3/uL Normal 3.5-11.0 [facility] Comment on above: Performed By: #### A HCV, HIVCMB #### [address] [address] [place]: Bryan Cruz MD Abs.Imm.Granulocyte NOT REPORTED Normal 0.00-0.30 [facility] Comment on above: Performed By: #### A HCV, HIVCMB #### [address] [address] [place]: Bryan Cruz MD Auto Diff Performed NOT REPORTED Normal [facility] Comment on above: Performed By: #### A HCV, HIVCMB #### [address] [address] [place] Tender: Bryan Cruz MD Immature Granulocyte NOT REPORTED Normal 0 [facility] Comment on above: Performed By: #### A HCV, HIVCMB #### [address] [address] [place] Tender: Bryan Cruz MD NRBC Automated NOT REPORTED Normal [facility] Comment on above: Performed By: #### A HCV, HIVCMB #### [address] [address] [place] Tender: Bryan Cruz MD Platelet Estimate NOT REPORTED Normal [facility] Comment on above: Performed By: #### A HCV, HIVCMB #### [address] [address] [place] Tender: Bryan Cruz MD RBC morphology finding Nom (Bld) NOT REPORTED Normal [facility] Comment on above: Performed By: #### A HCV, HIVCMB #### [address] [place] [address] Dam Tender: Bryan Cruz MD WBC Morphology NOT REPORTED Normal [facility] Comment on above: Performed By: #### A HCV, HIVCMB #### [address] [place] [address] Dam Tender: Bryan Cruz MD Comp Metabolic Profon 2019 (cont.) Normal [facility] Comment on above: Result Comment: Aver age GFR for 30-39 years old: 107 mL/min/1.73sq m Chronic Kidney Disease: <60 mL/min/1.73sq m Kidney failure: <15 mL/min/1.73sq m eGFR calculated using average adult body mass. Additional eGFR calculator available at: http://www.[employer].iiko/multiple_crcl_2011.htm Performed By: #### A HCV, HIVCMB #### [address] [place] [address] Dam Tender: Bryan Cruz MD Albumin [Mass/Vol] 3.7 g/dL Normal 3.5-5.2 [facility] Comment on above: Performed By: #### A HCV, HIVCMB #### [address] [place] [address] Dam Tender: Bryan Cruz MD Alkaline Phos 42 U/L Normal 35-104 [facility] Comment on above: Performed By: #### A HCV, HIVCMB #### [address] [place] [address] Dam Tender: Bryan Cruz MD ALT [Catalytic activity/Vol] 9 U/L Normal 5-33 [facility] Comment on above: Performed By: #### A HCV, HIVCMB #### [address] [place] [address] Dam Tender: Bryan Cruz MD Anion gap [Moles/Vol] 10 mmol/L Normal 9-17 [facility] Comment on above: Performed By: #### A HCV, HIVCMB #### [address] [address] [place] Tender: Bryan Cruz MD AST [Catalytic activity/Vol] 11 U/L Normal <32 [facility] Comment on above: Performed By: #### A HCV, HIVCMB #### [address] [address] [place] Tender: Bryan Cruz MD Bilirubin [Mass/Vol] 0.23 mg/dL Low 0.3-1.2 [facility] Comment on above: Performed By: #### A HCV, HIVCMB #### [address] [address] [place] Tender: Bryan Cruz MD Calcium [Mass/Vol] 9.3 mg/dL Normal 8.6-10.4 [facility] Comment on above: Performed By: #### A HCV, HIVCMB #### [address] [address] [place] Tender: Bryan Cruz MD Chloride [Moles/Vol] 105 mmol/L Normal 98-107 [facility] Comment on above: Performed By: #### A HCV, HIVCMB #### [address] [address] [place] Tender: Bryan Cruz MD CO2 [Moles/Vol] 24 mmol/L Normal 20-31 [facility] Comment on above: Performed By: #### A HCV, HIVCMB #### [address] [address] [place] Tender: Bryan Cruz MD Creatinine [Mass/Vol] 0.53 mg/dL Normal 0.50-0.90 [facility] Comment on above: Performed By: #### A HCV, HIVCMB #### [address] [address] [place] Tender: Bryan Cruz MD GFR, Amer >60 Normal >60 [facility] Comment on above: Performed By: #### A HCV, HIVCMB #### [address] [address] [place] Tender: Bryan Cruz MD GFR,non Amer >60 Normal >60 [facility] Comment on above: Performed By: #### A HCV, HIVCMB #### [address] [address] [place]ender: Bryan Cruz MD Glucose [Mass/Vol] 88 mg/dL Normal 70-99 [facility] Comment on above: Performed By: #### A HCV, HIVCMB #### [address] [address] [place] Tender: Bryan Cruz MD Potassium [Moles/Vol] 4.6 mmol/L Normal 3.7-5.3 [facility] Comment on above: Performed By: #### A HCV, HIVCMB #### [address] [address] [place] Tender: Bryan Cruz MD Protein [Mass/Vol] 6.4 g/dL Normal 6.4-8.3 [facility] Comment on above: Performed By: #### A HCV, HIVCMB #### [address] [address] [place] Tender: Bryan Cruz MD Sodium [Moles/Vol] 139 mmol/L Normal 135-144 [facility] Comment on above: Performed By: #### A HCV, HIVCMB #### [address] [address] [place] Tender: Bryan Cruz MD Urea nitrogen [Mass/Vol] 17 mg/dL Normal 6-20 [facility] Comment on above: Performed By: #### A HCV, HIVCMB #### [facility] [address] [place] [address] Dam Tender: Bryan Cruz MD Albumin/Glob Ratio NOT REPORTED Normal 1.0-2.5 [facility] Comment on above: Performed By: #### A HCV, HIVCMB #### [facility] [place] [address] Dam Tender: Bryan Cruz MD BUN/CRE Ratio NOT REPORTED Normal 07-01 [facility] Comment on above: Performed By: #### A HCV, HIVCMB #### [facility] [address] [place] [id number] Dam Tender: Bryan Cruz MD Staging: NOT REPORTED Normal [facility] Comment on above: Performed By: #### A HCV, HIVCMB #### [address] [id number] [place] Tender: Bryan Cruz MD Albumin [Mass/Vol] 3.7 g/dL 3.5 - 5.2 g/dL [place], [place] Albumin/Globulin [Mass ratio] NOT REPORTED [place] ALP [Catalytic activity/Vol] 42 U/L 35 - 104 U/L [place] ALT [Catalytic activity/Vol] 9 U/L 5 - 33 U/L [place] Anion gap [Moles/Vol] 10 mmol/L 9 - 17 mmol/L [place] AST [Catalytic activity/Vol] 11 U/L <32 [place] Bilirubin Ql (U) 0.23 mg/dL Low 0.3 - 1.2 mg/dL [place], [place] Bun/Cre Ratio NOT REPORTED [place] Calcium [Mass/Vol] 9.3 mg/dL 8.6 - 10. 4 mg/dL [place] Chloride [Moles/Vol] 105 mmol/L 98 - 107 mmol/L [place] CO2 [Moles/Vol] 24 mmol/L 20 - 31 mmol/L [place] Creatinine [Mass/Vol] 0.53 mg/dL 0.5 - 0.9 mg/d L [place] GFR >60 >60 mL/min [place] GFR Non- >60 >60 mL/min [place] GFR/1.73 sq M predicted among non-blacks MDRD (S/P/Bld) [Vol rate/Area] NOT REPORTED [place] GFR/1.73 sq M predicted among non-blacks MDRD (S/P/Bld) [Vol rate/Area] [place] Comment on above: Average GFR for 30-3 9 years old: 107 mL/min/1.73sq m Chronic Kidney Disease: <60 mL/min/1.73sq m Kidney failure: <15 mL/min/1.73sq m eGFR calculated using average adult body mass. Additional eGFR calculator available at: http://www.[employer]/multiple_crcl_2012.htm Glucose [Mass/Vol] 88 mg/dL 70 - 99 mg/dL [place], [place] Interpretation and review of laboratory results Abnormal [place] Potassium [Moles/Vol] 4.6 mmol/L 3.7 - 5.3 mmol/L [place] Protein [Mass/Vol] 6.4 g/dL 6.4 - 8.3 g/dL [place] Sodium [Moles/Vol] 139 mmol/L 135 - 144 mmol/L [place] Urea nitrogen [Mass/Vol] 17 mg/dL 6 - 20 mg/dL [place] Hep C Abon 07-20-2020 Hep C Ab Reactive Abnormal NR [facility] Comment on above: Result Comment: The hepatitis C procedure used in our laboratory is a Chemiluminescent test specific for three recombinant HCV antigens. A negative anti-HCV result indicates that the antibodies to hepatitis C virus are not present at this time. Individuals with reactive anti-HCV should be considered infected and infectious until proven otherwise. Confirmation of all equivocal or reactive results is recommended by ordering HCV RNA by PCR. Results reported to the appropriate Health Department Performed By: #### A HCV, HIVCMB #### [address] [id number] [place] Tender: Bryan Cruz MD Hepatitis C Ab REACTIVE Abnormal NONREACTIVE [place] Comment on above: The hepatitis C procedure used in our laboratory is a Chemiluminescent test specific for three recombinant HCV antigens. A negative anti-HCV result indicates that the antibodies to hepatitis C virus are not present at this time. Individuals with reactive anti-HCV should be considered infected and infectious until proven otherwise. Confirmation of all equivocal or reactive results is recommended by ordering HCV RNA by PCR. Results reported to the appropriate Health Department Interpretation and review of laboratory results Abnormal [place] TSH w/reflex to FT4on 2019 TSH Qn 3.88 m[IU]/L Normal 0.30-5.00 [facility] Comment on above: Performed By: #### A HCV, HIVCMB #### [address] [id number] [place] Tender: Bryan Cruz MD TSH Qn 3.88 m[IU]/L [place] Cult,Urineon 05-09-2019 Cult,Urine Specimen Description .CLEAN CATCH URINE Special Requests NOT REPORTED Culture STREPTOCOCCI, BETA HEMOLYTIC GROUP B <[id number] CFU/ML Report Status FINAL 05/09/2019 Normal [facility] Comment on above: Performed By: #### U RC #### [address] [id number] [place] Tender: Bryan Cruz MD [facility] [address] [place] [address] [place] [address] [place] Tender: Reji Brown MD CBC with Diffon 05-08-2019 Abs. Basophil 0.03 k/uL Normal 0.00-0.20 [facility] Comment on above: Performed By: #### C MPX, CDP, LIP, HCG #### [facility] [address] [place] [address] [place] [address] [place] Tender: Reji Brown MD Abs.Imm.Granulocyte <0.03 Normal 0.00-0.30 [facility] Comment on above: Performed By: #### C MPX, CDP, LIP, HCG #### [address] [place], [place] [address] Dam Tender: Reji Brown MD Abs.Neutrophil (Seg) 2.35 k/uL Normal 1.50-8.10 [facility] Comment on above: Performed By: #### C MPX, CDP, LIP, HCG #### [address] [place], [facility] Dam [place]: Reji Brown MD Basophils/100 WBC (Bld) 1 % Normal 0-2 [facility] Comment on above: Performed By: #### C MPX, CDP, LIP, HCG #### [address] [place] [id number] [place]: Reji Brown MD Eosinophils (Bld) [#/Vol] 0.20 10*3/uL Normal 0.00-0.44 [facility] Comment on above: Performed By: #### C MPX, CDP, LIP, HCG #### [address] [place], [place] [address] Dam Tender: Reji Brown MD Eosinophils/100 WBC (Bld) 4 % Normal 1-4 [facility] Comment on above: Performed By: #### C MPX, CDP, LIP, HCG #### [address] [place], [place] [address] Dam Tender: Reji Brown MD Erythrocyte distribution width (RBC) [Ratio] 14.2 % Normal 11.8-14.4 [facility] Comment on above: Performed By: #### C MPX, CDP, LIP, HCG #### [address] [place], [facility] Dam [place]ender: Reji Brown MD Hematocrit (Bld) [Volume fraction] 34.3 % Low 36.3-47.1 [facility] Comment on above: Performed By: #### C MPX, CDP, LIP, HCG #### [facility] [address] [place], [facility] Dam Tender: Reji Brown MD Hemoglobin (Bld) [Mass/Vol] 11.2 g/dL Low 11.9-15.1 [facility] Comment on above: Performed By: #### C MPX, CDP, LIP, HCG #### [facility] [address] [place], [facility] Dam Tender: Reji Brown MD Immature granulocytes (Bld) [#/Vol] 0 % Normal 0 [facility] Comment on above: Performed By: #### C MPX, CDP, LIP, HCG #### [facility] [address] [place] [address] [place] Tender: Reji Brown MD Lymphocytes (Bld) [#/Vol] 2.75 10*3/uL Normal 1.10-3.70 [facility] Comment on above: Performed By: #### C MPX, CDP, LIP, HCG #### [address] [place], [facility] Dam [place]ender: Reji Brown MD Lymphocytes/100 WBC (Bld) 46 % High 24-43 [facility] Comment on above: Performed By: #### C MPX, CDP, LIP, HCG #### [facility] [address] [place], [facility]83 Dam Tender: Reji Brown MD MCH (RBC) [Entitic mass] 30.7 pg Normal 25.2-33.5 [facility] Comment on above: Performed By: #### C MPX, CDP, LIP, HCG #### [facility] [address] [place] [address] [place] Tender: Reji Brown MD MCHC (RBC) [Mass/Vol] 32.7 g/dL Normal 28.4-34.8 [facility] Comment on above: Performed By: #### C MPX, CDP, LIP, HCG #### [facility] [address] [place], [place] [address] Dam Tender: Reji Brown MD MCV (RBC) [Entitic vol] 94.0 fL Normal 82.6-102.9 [facility] Comment on above: Performed By: #### C MPX, CDP, LIP, HCG #### [facility] [address] [place], [place] [address] Dam Tender: Reji Brown MD Monocytes (Bld) [#/Vol] 0.43 10*3/uL Normal 0.10-1.20 [facility] Comment on above: Performed By: #### C MPX, CDP, LIP, HCG #### [facility] [address] [place], [place] [address] Dam Tender: Reji Brown MD Monocytes/100 WBC (Bld) 8 % Normal 3-12 [facility] Comment on above: Performed By: #### C MPX, CDP, LIP, HCG #### [address] [place], [facility]83 Dam Tender: Reji Brown MD Neutrophil (Seg) 41 % Normal 36-65 [facility] Comment on above: Performed By: #### C MPX, CDP, LIP, HCG #### [facility] [address] [place], [place] [address] Dam Tender: Reji Brown MD NRBC Automated 0.0 per 100 WBC Normal 0.0 [facility] Comment on above: Performed By: #### C MPX, CDP, LIP, HCG #### [facility] [address] [place], [facility] Dam Tender: Reji Brown MD Platelet mean volume (Bld) [Entitic vol] 10.5 fL Normal 8.1-13.5 [facility] Comment on above: Performed By: #### C MPX, CDP, LIP, HCG #### [facility] [address] [place], [place] [address] Dam Tender: Reji Brown MD Platelets (Bld) [#/Vol] 219 10*3/uL Normal 138-453 [facility] Comment on above: Performed By: #### C MPX, CDP, LIP, HCG #### [facility] [address] [place], [facility] ([address] Dam Tender: Reji Brown MD RBC (Bld) [#/Vol] 3.65 10*6/uL Low 3.95-5.11 [facility] Comment on above: Performed By: #### C MPX, CDP, LIP, HCG #### [facility] [address] [place] [address] Dam Tender: Reji Brown MD WBC (Bld) [#/Vol] 5.8 10*3/uL Normal 3.5-11.3 [facility] Comment on above: Performed By: #### C MPX, CDP, LIP, HCG #### [facility] [address] [place], [facility] ([address] Dam Tender: Reji Brown MD Auto Diff Performed NOT REPORTED Normal [facility] Comment on above: Performed By: #### C MPX, CDP, LIP, HCG #### [facility] [address] [place], [facility] Dam Tender: Reji Brown MD Platelets (Bld) [#/Vol] NOT REPORTED Normal [facility] Comment on above: Performed By: #### C MPX, CDP, LIP, HCG #### [facility] [address] [place], [facility] Dam Tender: Reji Brown MD RBC morphology finding Nom (d) NOT REPORTED Normal [facility] Comment on above: Performed By: #### C MPX, CDP, LIP, HCG #### [facility] [address] [place] [address] [place] Tender: Reji Brown MD WBC Morphology NOT REPORTED Normal [facility] Comment on above: Performed By: #### C MPX, CDP, LIP, HCG #### [facility] [address] [place] [address] [place] Tender: Reji Brown MD Comp Metabolic Pr/rfx MGon 0 05-08-2019 Bilirubin Ql (U) <0.10 Low 0.3-1.2 [facility] Comment on above: Performed By: #### C MPX, CDP, LIP, HCG #### [address] [place] [address] [place] Tender: Reji Brown MD (cont.) [facility] Comment on above: Result Comment: Aver age GFR for 30-39 years old: 107 mL/min/1.73sq m Chronic Kidney Disease: <60 mL/min/1.73sq m Kidney failure: <15 mL/min/1.73sq m eGFR calculated using average adult body mass. Additional eGFR calculator available at: http://www.[employer]/multiple_crcl_2011.htm Performed By: #### C MPX, CDP, LIP, HCG #### [address] [place] [address] [place] Tender: Reji Brown MD Albumin [Mass/Vol] 4.0 g/dL Normal 3.5-5.2 [facility] Comment on above: Performed By: #### C MPX, CDP, LIP, HCG #### [address] [place] [address] [place] Tender: Reji Brown MD Albumin/Globulin [Mass ratio] 1.5 {ratio} Normal 1.0-2.5 [facility] Comment on above: Performed By: #### C MPX, CDP, LIP, HCG #### [facility] [address] [place], [place] [id number] [place]: Reji Brown MD Alkaline Phos 53 U/L Normal 35-104 [facility] Comment on above: Performed By: #### C MPX, CDP, LIP, HCG #### [facility] [address] [place], [place] [id number] [place]: Reji Brown MD ALT [Catalytic activity/Vol] 11 U/L Normal 5-33 [facility] Comment on above: Performed By: #### C MPX, CDP, LIP, HCG #### [facility] [address] [place], [place] [id number] [place]: Reji Brown MD Anion gap [Moles/Vol] 9 mmol/L Normal 9-17 [facility] Comment on above: Performed By: #### C MPX, CDP, LIP, HCG #### [facility] [address] [place], [place] [id number] [place]: Reji Brown MD AST [Catalytic activity/Vol] 16 U/L Normal <32 [facility] Comment on above: Performed By: #### C MPX, CDP, LIP, HCG #### [facility] [address] [place], [place] [id number] [place]: Reji Brown MD BUN/CRE Ratio 19 Normal 9-20 [facility] Comment on above: Performed By: #### C MPX, CDP, LIP, HCG #### [facility] [address] [place], [place] [id number] [place]: Reji Brown MD Calcium [Mass/Vol] 9.7 mg/dL Normal 8.6-10.4 [facility] Comment on above: Performed By: #### C MPX, CDP, LIP, HCG #### [facility] [address] [place], [place] [id number] [place] Tender: Reji Brown MD Chloride [Moles/Vol] 102 mmol/L Normal 98-107 [facility] Comment on above: Performed By: #### C MPX, CDP, LIP, HCG #### [facility] [address] [place], [facility] Dam Tender: Reji Brown MD CO2 [Moles/Vol] 31 mmol/L Normal 20-31 [facility] Comment on above: Performed By: #### C MPX, CDP, LIP, HCG #### [facility] [address] [place], [facility] Dam Tender: Reji Brown MD Creatinine [Mass/Vol] 0.79 mg/dL Normal 0.50-0.90 [facility] Comment on above: Performed By: #### C MPX, CDP, LIP, HCG #### [facility] [address] [place], [facility] Dam Tender: Reji Brown MD GFR, Amer >60 Normal >60 [facility] Comment on above: Performed By: #### C MPX, CDP, LIP, HCG #### [facility] [address] [place], [facility] Dam Tender: Reji Brown MD GFR,non Amer >60 Normal >60 [facility] Comment on above: Performed By: #### C MPX, CDP, LIP, HCG #### [facility] [address] [place], [facility]83 Dam Tender: Reji Brown MD Glucose [Mass/Vol] 102 mg/dL High 70-99 [facility] Comment on above: Performed By: #### C MPX, CDP, LIP, HCG #### [facility] [address] [place] [address] Dam Tender: Reji Brown MD Potassium [Moles/Vol] 4.5 mmol/L Normal 3.7-5.3 [facility] Comment on above: Performed By: #### C MPX, CDP, LIP, HCG #### [facility] [address] [place] [address] [place] Tender: Reji Brown MD Protein [Mass/Vol] 6.7 g/dL Normal 6.4-8.3 [facility] Comment on above: Performed By: #### C MPX, CDP, LIP, HCG #### [facility] [address] [place] [address] [place] Tender: Reji Brown MD Sodium [Moles/Vol] 142 mmol/L Normal 135-144 [facility] Comment on above: Performed By: #### C MPX, CDP, LIP, HCG #### [facility] [address] [place] [address] Dam Tender: Reji Brown MD Staging: Normal [facility] Comment on above: Result Comment: Stag e 1: Some kidney damage normal GFR Stage 2: Mild kidney damage GFR 60-89 Stage 3: Moderate kidney damage GFR 30-59 Stage 4: Severe kidney damage GFR 15-29 Stage 5: Severe kidney damage GFR <15 ESRD - chronic treatment by dialysis or transplant Performed By: #### C MPX, CDP, LIP, HCG #### [facility] [address] [place] [address] [place] Tender: Reji Brown MD Urea nitrogen [Mass/Vol] 15 mg/dL Normal 6-20 [facility] Comment on above: Performed By: #### C MPX, CDP, LIP, HCG #### [facility] [address] [place] [address] Dam Tender: Reji Brown MD HCG Screen, Bloodon 05-08-20 19 HCG Qn Negative Normal NEG [facility] Comment on above: Result Comment: Spec imens with hCG levels near the threshold of the test (25 mIU/mL) may give a negative or indeterminate result. In such cases, another test should be performed with a new specimen in 48-72 hours. If early is suspected clinically in this setting, correlation with quantitative serum b-hCG level is suggested. [facility] has confirmed the use of plasma for this test. This has not been cleared or approved by the U.S. Food and Drug Administration. The FDA has determined that such clearance is not necessary. Performed By: #### C MPX, CDP, LIP, HCG #### [facility] [address] [place] [address] Dam Tender: Reji Brown MD Lipaseon 05-08-2019 Lipase [Catalytic activity/Vol] 13 U/L Normal 13-60 [facility] Comment on above: Performed By: #### C MPX, CDP, LIP, HCG #### [facility] [address] [place] [address] Dam Tender: Reji Brown MD Urinalysis, Routineon 2018 Acetoacetic Acid,Ur Negative Normal NEG [facility] Comment on above: Performed By: #### U MICAO, UA #### [facility] [address] [place], [facility] Dam Tender: Reji Brown MD Bilirubin, SemiQt,Ur Negative Normal NEG [facility] Comment on above: Performed By: #### U MICAO, UA #### [address] [place], [place] [id number] Dam Tender: Reji Brown MD Color (U) YELLOW Normal YEL [facility] Comment on above: Performed By: #### U MICAO, UA #### [facility] [address] [place], [facility] Dam Tender: Reji Brown MD Glucose Ql (U) Negative Normal NEG [facility] Comment on above: Performed By: #### U MICAO, UA #### [facility] [address] [place], [place] [id number] Dam Tender: Reji Brown MD Hemoglobin, Ur Negative Normal NEG [facility] Comment on above: Performed By: #### U MICAO, UA #### [facility] [address] [place], [place] [id number] Dam Tender: Reji Brown MD Leukocyte esterase Test strip Ql (U) Negative Normal NEG [facility] Comment on above: Performed By: #### U MICAO, UA #### [facility] [address] [place], [place] [id number] Dam Tender: Reji Brown MD Nitrite,Ur Negative Normal NEG [facility] Comment on above: Performed By: #### U MICAO, UA #### [facility] [address] [place] [id number] Dam Tender: Reji Brown MD pH (U) 7.5 [pH] Normal 5.0-9.0 [facility] Comment on above: Performed By: #### U MICAO, UA #### [address] [place], [facility] Dam Tender: Reji Brown MD Protein Ql (U) Negative Normal NEG [facility] Comment on above: Performed By: #### U MICAO, UA #### [address] [place], [facility] Dam Tender: Reji Brown MD Specific gravity (U) [Rel density] 1.015 Normal 1.010-1.020 [facility] Comment on above: Performed By: #### U MICAO, UA #### [facility] [address] [place], [facility] Dam Tender: Reji Brown MD Turbidity CLOUDY Abnormal CLEAR [facility] Comment on above: Performed By: #### U MICAO, UA #### [facility] [address] [place] [address] Dam Tender: Reji Brown MD Urobilinogen,Ur Normal Normal NORM [facility] Comment on above: Performed By: #### U MICAO, UA #### [facility] [address] [place] [id number] Dam Tender: Reji Brown MD Comment NOT REPORTED Normal [facility] Comment on above: Performed By: #### U MICAO, UA #### [address] [place] [id number] Dam Tender: Reji Brown MD Urinalysis,Microon 9 ----- Normal [facility] Comment on above: Performed By: #### U MICAO, UA #### [facility] [address] [place] [id number] Dam Tender: Reji Brown MD Amorphous sediment LM Ql (Urine sed) 4+ Abnormal NONE [facility] Comment on above: Performed By: #### U MICAO, UA #### [address] [place] [id number] Dam Tender: Reji Brown MD Epithelial cells LM.HPF (Urine sed) [#/Area] 5 TO 10 Normal 0-25 [facility] Comment on above: Performed By: #### U MICAO, UA #### [address] [place] [id number] Dam Tender: Reji Brown MD RBC (U) [#/Vol] None Normal 0-2 [facility] Comment on above: Performed By: #### U ASHELYO, UA #### [address] [place], [facility] Dam Tender: Reji Brown MD WBC (U) [#/Vol] None Normal 0-5 [facility] Comment on above: Performed By: #### U MICAO, UA #### [address] [place] [id number] Dam Tender: Reji Brown MD Bacteria LM.HPF (Urine sed) [#/Area] NOT REPORTED Normal [facility] Comment on above: Performed By: #### U MICAO, UA #### [facility] [address] [place] [address] Dam Tender: Reji Brown MD Casts LM.LPF (Urine sed) [#/Area] NOT REPORTED Normal [facility] Comment on above: Performed By: #### U MICAO, UA #### [facility] [address] [place] [address] Dam Tender: Reji Brown MD Crystals LM Nom (Urine sed) NOT REPORTED Normal NONE [facility] Comment on above: Performed By: #### U MICAO, UA #### [facility] [address] [place] [address] Dam Tender: Reji Brown MD Epithelial, Renal NOT REPORTED Normal 0 [facility] Comment on above: Performed By: #### U MICAO, UA #### [facility] [address] [place] [address] Dam Tender: Reji Brown MD Mucus Strands NOT REPORTED Normal NONE [facility] Comment on above: Performed By: #### U MICAO, UA #### [facility] [address] [place] [address] Dam Tender: Reji Brown MD Other Observations NOT REPORTED Normal NREQ [facility] Comment on above: Performed By: #### U MICAO, UA #### [facility] [address] [place] [address] Dam Tender: Reji Brown MD Trichomonas NOT REPORTED Normal NONE [facility] Comment on above: Performed By: #### U MICAO, UA #### [facility] [address] [place] [address] Dam Tender: Reji Brown MD Yeast LM Ql (Urine sed) NOT REPORTED Normal NONE [facility] Comment on above: Performed By: #### U MICAO, UA #### [facility] [address] [place] [address] Dam Tender: Reji Brown MD XR ACUTE ABD SERIES CHEST 1 VWon 05-08-2019 XR ACUTE ABD SERIES CHEST 1 VW EXAMINATION: TWO XRAY VIEWS OF THE ABDOMEN AND SINGLE XRAY VIEW OF THE CHEST 05/08/2019 12:33 am COMPARISON: Prior studies including 09/28/2016 HISTORY: ORDERING SYSTEM PROVIDED HISTORY: Constipation vs obstruction TECHNOLOGIST PROVIDED HISTORY: Constipation vs obstruction FINDINGS: Heart size and configuration are normal. There is a band of atelectasis at the left costophrenic angle. Lungs are otherwise clear. No pneumothorax or pleural fluid. No acute bone finding. There is a moderate to large stool load throughout the redundant colon. No evidence of free air. No abnormal calcifications. No acute bone finding. IMPRESSION: Moderate to large stool load throughout the redundant colon consistent with constipation/fecal impaction. No acute cardiopulmonary disease. Small band of acute versus chronic atelectasis at the right costophrenic angle. Interpreted by: Cleve Velazquez MD Signed by: Cleve Velazquez MD 05/08/19 Final result Normal [facility] Vital Signs Date Time Vital Sign Value Performing Clinician Facility 09-14-2023 18:27-0500 Body height 167.64 cm OCCUP THERAPIST Cris Robuck Work Phone: [facility] 09-14-2023 18:27-0500 Body temperature 98.1 [degF] OCCUP THERAPIST Cris Robuck Work Phone: [facility] 09-14-2023 18:27-0500 Body weight 73 kg OCCUP THERAPIST Cris Robuck Work Phone: [facility] 09-14-2023 18:27-0500 Diastolic blood pressure 80 mm[Hg] OCCUP THERAPIST Cris Robuck Work Phone: [facility] 09-14-2023 18:27-0500 Heart rate 97 /min OCCUP THERAPIST Cris Robuck Work Phone: [facility] 09-14-2023 18:27-0500 Respiratory rate 16 /min OCCUP THERAPIST Cris Robuck Work Phone: [facility] 09-14-2023 18:27-0500 SaO2% (BldA) [Mass fraction] 98 % RUIZ Pena Work Phone: [facility] 09-14-2023 18:27-0500 Systolic blood pressure 128 mm[Hg] RUIZ Pena Work Phone: [facility] 07-13-2023 09:00-0400 Body weight 79.28 kg [facility] 07-13-2023 07:30-0400 Body temperature 98.4 [degF] [facility] 07-13-2023 07:30-0400 Diastolic blood pressure 72 mm[Hg] [facility] 07-13-2023 07:30-0400 Heart rate 98 /min [facility] 07-13-2023 07:30-0400 Respiratory rate 20 /min [facility] 07-13-2023 07:30-0400 SaO2% (BldA) [Mass fraction] 95 % [facility] 07-13-2023 07:30-0400 Systolic blood pressure 105 mm[Hg] [facility] 07-08-2023 14:36-0400 Body height 165.1 cm [facility] 06-08-2023 08:18-0400 Body height 165.1 cm [facility] 06-08-2023 08:18-0400 Body temperature 97.7 [degF] [facility] 06-08-2023 08:18-0400 Body weight 67.58 kg [facility] 06-08-2023 08:18-0400 Diastolic blood pressure 55 mm[Hg] [facility] 06-08-2023 08:18-0400 Heart rate 68 /min [facility] 06-08-2023 08:18-0400 Respiratory rate 18 /min [facility] 06-08-2023 08:18-0400 SaO2% (BldA) [Mass fraction] 98 % [facility] 06-08-2023 08:18-0400 Systolic blood pressure 120 mm[Hg] [facility] 04-19-2023 19:09-0400 Body height 165.1 cm OCCUP THERAPIST Cris Robuck Work Phone: [facility] 04-19-2023 19:09-0400 Body temperature 97.6 [degF] OCCUP THERAPIST Cris Robuck Work Phone: [facility] 04-19-2023 19:09-0400 Body weight 66.55 kg OCCUP THERAPIST Cris Robuck Work Phone: [facility] 04-19-2023 19:09-0400 Diastolic blood pressure 97 mm[Hg] OCCUP THERAPIST Cris Robuck Work Phone: [facility] 04-19-2023 19:09-0400 Heart rate 83 /min OCCUP THERAPIST Cris Robuck Work Phone: [facility] 04-19-2023 19:09-0400 Respiratory rate 18 /min OCCUP THERAPIST Cris Robuck Work Phone: [facility] 04-19-2023 19:09-0400 SaO2% (BldA) [Mass fraction] 100 % OCCUP THERAPIST Cris Robuck Work Phone: [facility] 04-19-2023 19:09-0400 Systolic blood pressure 124 mm[Hg] OCCUP THERAPIST Cris Robuck Work Phone: [facility] 04-18-2023 22:55-0400 Diastolic blood pressure 88 mm[Hg] OCCUP THERAPIST Cris Robuck Work Phone: [facility] 04-18-2023 22:55-0400 Heart rate 98 /min OCCUP THERAPIST Cris Robuck Work Phone: [facility] 04-18-2023 22:55-0400 Respiratory rate 16 /min OCCUP THERAPIST Cris Robuck Work Phone: [facility] 04-18-2023 22:55-0400 SaO2% (BldA) [Mass fraction] 98 % OCCUP THERAPIST Cris Robuck Work Phone: [facility] 04-18-2023 22:55-0400 Systolic blood pressure 136 mm[Hg] OCCUP THERAPIST Cris Saraviauck Work Phone: [facility] 04-18-2023 21:13-0400 Body height 165.1 cm OCCUP THERAPIST Cris Saraviauck Work Phone: [facility] 04-18-2023 21:13-0400 Body temperature 98 [degF] OCCUP THERAPIST Cris Pena Work Phone: [facility] 04-18-2023 21:13-0400 Body weight 66.45 kg OCCUP THERAPIST Cris Pena Work Phone: [facility] 04-16-2023 14:57-0400 Body weight 65.77 kg Mireille Muha OCCUP THERAPIST.WAITER/[employer] Work Phone: [facility] 04-16-2023 14:57-0400 Diastolic blood pressure 79 mm[Hg] Mireille Muha OCCUP THERAPIST.WAITER/[employer]ESS [employer] Work Phone: [facility] 04-16-2023 14:57-0400 Heart rate 108 /min Mireille Muha OCCUP THERAPIST.WAITER/[employer] Work Phone: [facility] 04-16-2023 14:57-0400 Systolic blood pressure 133 mm[Hg] Mireille Muha OCCUP THERAPIST.WAITER/[employer]ESS [employer] Work Phone: [facility] 03-16-2023 08:40-0400 Body height 167.9 cm Mireille Muha OCCUP THERAPIST.WAITER/[employer] Work Phone: [facility] 03-16-2023 08:40-0400 Body temperature 98.1 [degF] Mireille Muha OCCUP THERAPIST.WAITER/[employer] Work Phone: [facility] 03-16-2023 08:40-0400 Body weight 69.85 kg Mireille Muha OCCUP THERAPIST.WAITER/[employer] Work Phone: [facility] 03-16-2023 08:40-0400 Diastolic blood pressure 74 mm[Hg] Mireille Muha OCCUP THERAPIST.WAITER/[employer] Work Phone: [facility] 03-16-2023 08:40-0400 Heart rate 88 /min Mireille Cheatham OCCUP THERAPIST.WAITER/[employer] Work Phone: [facility] 03-16-2023 08:40-0400 SaO2% (BldA) [Mass fraction] 98 % Mireille Cheatham OCCUP THERAPIST.WAITER/[employer] Work Phone: [facility] 03-16-2023 08:40-0400 Systolic blood pressure 120 mm[Hg] Mireille Cheatham OCCUP THERAPIST.WAITER/[employer]ESS [employer] Work Phone: [facility] 02-24-2023 12:15-0400 Body height 170.18 cm OCCUP THERAPIST Cris Robuck Work Phone: [facility] 02-24-2023 12:15-0400 Body temperature 97.6 [degF] OCCUP THERAPIST Cris Robuck Work Phone: [facility] 02-24-2023 12:15-0400 Body weight 66.5 kg OCCUP THERAPIST Cirs Robuck Work Phone: [facility] 02-24-2023 12:15-0400 Diastolic blood pressure 59 mm[Hg] OCCUP THERAPIST Cris Robuck Work Phone: [facility] 02-24-2023 12:15-0400 Heart rate 75 /min OCCUP THERAPIST Cris Robuck Work Phone: [facility] 02-24-2023 12:15-0400 Respiratory rate 20 /min OCCUP THERAPIST Cris Robuck Work Phone: [facility] 02-24-2023 12:15-0400 SaO2% (BldA) [Mass fraction] 100 % OCCUP THERAPIST Cris Robuck Work Phone: [facility] 02-24-2023 12:15-0400 Systolic blood pressure 105 mm[Hg] OCCUP THERAPIST Cris Robuck Work Phone: [facility] 02-03-2023 19:12-0400 Diastolic blood pressure 64 mm[Hg] OCCUP THERAPIST Cris Robuck Work Phone: [facility] 02-03-2023 19:12-0400 Heart rate 84 /min OCCUP THERAPIST Cris Robuck Work Phone: [facility] 02-03-2023 19:12-0400 Respiratory rate 17 /min OCCUP THERAPIST Cris Robuck Work Phone: [facility] 02-03-2023 19:12-0400 SaO2% (BldA) [Mass fraction] 98 % OCCUP THERAPIST Cris Robuck Work Phone: [facility] 02-03-2023 19:12-0400 Systolic blood pressure 107 mm[Hg] OCCUP THERAPIST Cris Robuck Work Phone: [facility] 02-03-2023 11:00-0400 Body height 165.1 cm OCCUP THERAPIST Cris Robuck Work Phone: [facility] 02-03-2023 11:00-0400 Body weight 66.2 kg OCCUP THERAPIST Cris Robuck Work Phone: [facility] 02-03-2023 10:59-0400 Body temperature 98.2 [degF] OCCUP THERAPIST Cris Robuck Work Phone: [facility] 01-26-2023 21:53-0400 Body height 167.64 cm DO Rachael Tupa Work Phone: [facility] 01-26-2023 21:53-0400 Body temperature 97.7 [degF] DO Rachael Tupa Work Phone: [facility] 01-26-2023 21:53-0400 Body weight 67.4 kg DO Rachael Tupa Work Phone: [facility] 01-26-2023 21:53-0400 Diastolic blood pressure 63 mm[Hg] DO Rachael Tupa Work Phone: [facility] 01-26-2023 21:53-0400 Heart rate 87 /min DO Rachael Tupa Work Phone: [facility] 01-26-2023 21:53-0400 Respiratory rate 20 /min DO Rachael Tupa Work Phone: [facility] 01-26-2023 21:53-0400 SaO2% (BldA) [Mass fraction] 97 % DO Rachael Tupa Work Phone: [facility] 01-26-2023 21:53-0400 Systolic blood pressure 116 mm[Hg] DO Rachael Tupa Work Phone: [facility] 01-16-2023 07:21-0400 Body temperature 97.4 [degF] DO Rachael Tupa Work Phone: [facility] 01-16-2023 07:21-0400 Diastolic blood pressure 61 mm[Hg] DO Rachael Tupa Work Phone: [facility] 01-16-2023 07:21-0400 Heart rate 79 /min DO Rachael Tupa Work Phone: [facility] 01-16-2023 07:21-0400 Respiratory rate 16 /min DO Rachael Tupa Work Phone: [facility] 01-16-2023 07:21-0400 SaO2% (BldA) [Mass fraction] 98 % DO Rachael Tupa Work Phone: [facility] 01-16-2023 07:21-0400 Systolic blood pressure 105 mm[Hg] DO Rachael Tupa Work Phone: [facility] 01-13-2023 15:02-0400 Body height 165.1 cm DO Rachael Tupa Work Phone: [facility] 01-12-2023 15:41-0400 Body weight 60.9 kg DO Rachael Tupa Work Phone: [facility] 01-12-2023 11:28-0400 Diastolic blood pressure 72 mm[Hg] DO Rachael Tupa Work Phone: [facility] 01-12-2023 11:28-0400 Heart rate 106 /min DO Rachael Tupa Work Phone: [facility] 01-12-2023 11:28-0400 Respiratory rate 18 /min DO Rachael Tupa Work Phone: [facility] 01-12-2023 11:28-0400 SaO2% (BldA) [Mass fraction] 98 % DO Rachael Tupa Work Phone: [facility] 01-12-2023 11:28-0400 Systolic blood pressure 119 mm[Hg] DO Rachael Tupa Work Phone: [facility] 01-12-2023 07:59-0400 Body height 165.1 cm DO Rachael Tupa Work Phone: [facility] 01-12-2023 07:59-0400 Body weight 60.9 kg DO Rachael Tupa Work Phone: [facility] 01-12-2023 07:58-0400 Body temperature 97.3 [degF] DO Rachael Tupa Work Phone: [facility] 11-20-2022 18:18-0500 Diastolic blood pressure 112 mm[Hg] DO Rachael Tupa Work Phone: [facility] 11-20-2022 18:18-0500 Heart rate 125 /min DO Rachael Tupa Work Phone: [facility] 11-20-2022 18:18-0500 Respiratory rate 17 /min DO Rachael Tupa Work Phone: [facility] 11-20-2022 18:18-0500 SaO2% (BldA) [Mass fraction] 96 % DO Rachael Tupa Work Phone: [facility] 11-20-2022 18:18-0500 Systolic blood pressure 160 mm[Hg] DO Rachael Tupa Work Phone: [facility] 11-20-2022 16:10-0500 Body height 167.64 cm DO Rachael Tupa Work Phone: [facility] 11-20-2022 16:10-0500 Body temperature 98.5 [degF] DO Rachael Tupa Work Phone: [facility] 11-20-2022 16:10-0500 Body weight 69 kg DO Rachael Tupa Work Phone: [facility] 11-20-2022 02:58-0500 Body height 167.64 cm DO Rachael Tupa Work Phone: [facility] 11-20-2022 02:58-0500 Body temperature 98.3 [degF] DO Rachael Tupa Work Phone: [facility] 11-20-2022 02:58-0500 Body weight 69.5 kg DO Rachael Tupa Work Phone: [facility] 11-20-2022 02:58-0500 Diastolic blood pressure 96 mm[Hg] DO Rachael Tupa Work Phone: [facility] 11-20-2022 02:58-0500 Heart rate 96 /min DO Rachael Tupa Work Phone: [facility] 11-20-2022 02:58-0500 Respiratory rate 18 /min DO Rachael Tupa Work Phone: [facility] 11-20-2022 02:58-0500 SaO2% (BldA) [Mass fraction] 98 % DO Rachael Tupa Work Phone: [facility] 11-20-2022 02:58-0500 Systolic blood pressure 169 mm[Hg] DO Rachael Tupa Work Phone: [facility] 11-10-2022 01:55-0500 Diastolic blood pressure 80 mm[Hg] Christian Chucky [facility] 11-10-2022 01:55-0500 Heart rate 71 /min Christian Ch[facility] 11-10-2022 01:55-0500 Mean blood pressure 92 mm[Hg] Christian Chucky [facility] 11-10-2022 01:55-0500 Respiratory rate 14 /min Christian Chucky [facility] 11-10-2022 01:55-0500 SaO2% (BldA) [Mass fraction] 96 % Christian Chucky [facility] 11-10-2022 01:55-0500 Systolic blood pressure 116 mm[Hg] Christian Chucky [facility] 11-10-2022 01:08-0500 Heart rate 72 /min Christian Chucky [facility] 11-10-2022 01:08-0500 SaO2% (BldA) [Mass fraction] 94 % Christian Ch[facility] 11-09-2022 21:52-0500 Diastolic blood pressure 95 mm[Hg] Christian Chucky [facility] 11-09-2022 21:52-0500 Heart rate 96 /min Christian Chucky [facility] 11-09-2022 21:52-0500 Respiratory rate 18 /min Christian Chucky [facility] 11-09-2022 21:52-0500 SaO2% (BldA) [Mass fraction] 99 % Christian Chucky [facility] 11-09-2022 21:52-0500 Systolic blood pressure 122 mm[Hg] Christian Chucky [facility] 11-09-2022 20:52-0500 Body temperature 98.78 [degF] Christian Chucky [facility] 11-09-2022 20:52-0500 Diastolic blood pressure 87 mm[Hg] Christian Locke [facility] 11-09-2022 20:52-0500 Respiratory rate 18 /min Christian Locke [facility] 11-09-2022 20:52-0500 Systolic blood pressure 145 mm[Hg] Christian Locke [facility] 11-06-2022 14:38-0500 Blood Pressure Location Cris ROBUCK [facility] 11-06-2022 14:38-0500 Diastolic blood pressure 88 mm[Hg] Cris ROBUCK [facility] 11-06-2022 14:38-0500 Heart rate 96 /min Cris ROBUCK [facility] 11-06-2022 14:38-0500 SaO2% (BldA) [Mass fraction] 96 % Cris ROBUCK [facility] 11-06-2022 14:38-0500 Systolic blood pressure 132 mm[Hg] Cris ROBUCK [facility] 10-10-2022 12:46-0500 Blood Pressure Location Cris ROBUCK [facility] 10-10-2022 12:46-0500 Body temperature 98.06 [degF] Cris ROBUCK [facility] 10-10-2022 12:46-0500 Diastolic blood pressure 78 mm[Hg] Cris ROBUCK [facility] 10-10-2022 12:46-0500 Heart rate 89 /min Cris ROBUCK [facility] 10-10-2022 12:46-0500 SaO2% (BldA) [Mass fraction] 98 % Cris ROBUCK [facility] 10-10-2022 12:46-0500 Systolic blood pressure 130 mm[Hg] Cris ROBUCK [facility] 10-02-2022 14:08-0500 Blood Pressure Location NANCY SIDELL [facility] 10-02-2022 14:08-0500 Body temperature 98.24 [degF] NANCY SIDELL [facility] 10-02-2022 14:08-0500 Diastolic blood pressure 78 mm[Hg] NANCY SIDELL [facility] 10-02-2022 14:08-0500 Heart rate 93 /min NANCY SIDELL [facility] 10-02-2022 14:08-0500 SaO2% (BldA) [Mass fraction] 98 % NANCY SIDELL [facility] 10-02-2022 14:08-0500 Systolic blood pressure 136 mm[Hg] NANCY SIDELL [facility] 08-08-2022 23:00-0400 Body height 167.64 cm DO Rachael Tupa Work Phone: [facility] 08-08-2022 23:00-0400 Body temperature 98.1 [degF] DO Rachael Tupa Work Phone: [facility] 08-08-2022 23:00-0400 Body weight 68.55 kg DO Rachael Tupa Work Phone: [facility] 08-08-2022 23:00-0400 Diastolic blood pressure 71 mm[Hg] DO Rachael Tupa Work Phone: [facility] 08-08-2022 23:00-0400 Heart rate 87 /min DO Rachael Danielpa Work Phone: [facility] 08-08-2022 23:00-0400 Respiratory rate 20 /min DO Rachael Tupa Work Phone: [facility] 08-08-2022 23:00-0400 SaO2% (BldA) [Mass fraction] 95 % DO Rachael Danielpa Work Phone: [facility] 08-08-2022 23:00-0400 Systolic blood pressure 118 mm[Hg] DO Rachael Danielpa Work Phone: [facility] 04-25-2022 00:00-0400 Blood Pressure Location Luis Armando Gastelume [facility] 04-25-2022 00:00-0400 Diastolic blood pressure 58 mm[Hg] Luis Armando Gastelume [facility] 04-25-2022 00:00-0400 Heart rate 82 /min Luis Armando Franz [facility] 04-25-2022 00:00-0400 Mean blood pressure 71 mm[Hg] Luis Armando Gastelume [facility] 04-25-2022 00:00-0400 SaO2% (BldA) [Mass fraction] 98 % Luis Armando Gastelume [facility] 04-25-2022 00:00-0400 Systolic blood pressure 97 mm[Hg] Luis Armando Gastelume [facility] 04-24-2022 18:53-0400 Diastolic blood pressure 87 mm[Hg] Luis Armando Gastelume [facility] 04-24-2022 18:53-0400 Heart rate 99 /min Luis Armando rFanz [facility] 04-24-2022 18:53-0400 Mean blood pressure 102 mm[Hg] Luis Armando Franz [facility] 04-24-2022 18:53-0400 Respiratory rate 18 /min Luis Armando Franz [facility] 04-24-2022 18:53-0400 SaO2% (BldA) [Mass fraction] 96 % Luis Armando Franz [facility] 04-24-2022 18:53-0400 Systolic blood pressure 132 mm[Hg] Luis Armando Franz [facility] 04-24-2022 13:05-0400 Body temperature 98.78 [degF] Luis Armando Franz [facility] 04-24-2022 13:05-0400 Diastolic blood pressure 97 mm[Hg] Luis Armando Franz [facility] 04-24-2022 13:05-0400 Heart rate 118 /min Luis Armando Franz [facility] 04-24-2022 13:05-0400 SaO2% (BldA) [Mass fraction] 96 % Luis Armando Franz [facility] 04-24-2022 13:05-0400 Systolic blood pressure 163 mm[Hg] Luis Armando Franz [facility] 07-31-2020 07:48-0400 Body Temperature 98.01 [degF] [employer] [place] [place] 07-31-2020 07:48-0400 BP Diastolic 67 mm[Hg] [facility] [place] , [place] 07-31-2020 07:48-0400 BP Systolic 108 mm[Hg] [facility] [place] 07-31-2020 07:48-0400 Pulse (Heart Rate) 82 /min [facility] [place] 07-31-2020 07:48-0400 Respiratory Rate 14 /min [facility], [place] 07-29-2020 08:04-0400 Pulse Oximetry 100 % [facility] , [place] 07-18-2020 02:42-0400 BMI (Body Mass Index) 24.96 kg/m2 [facility] [place], [place] 07-18-2020 02:42-0400 Body weight 68.04 kg [facility] , [place] 07-18-2020 02:42-0400 Height 165.1 cm [facility] [place] Encounters Encounter Date Encounter Type Care Provider Facility Start: 10-27-2023 ambulatory WAITER/[employer]RESS [employer]GE Cris PENA Faci lity:[facility] Start: 10-02-2023 End: 10-02-2023 Emergency department patient visit Cris Pena Facility:[facility] Start: 10-02-2023 End: 10-02-2023 Emergency department patient visit [facility] Work Phone: Start: 09-14-2023 End: 09-15-2023 Emergency department patient visit Cris Pena Facility:[facility] Start: 09-14-2023 End: 09-14-2023 Emergency department patient visit OCCUP THERAPIST Cris Pena Work Phone: [facility] Work Phone: Start: 09-10-2023 End: 09-10-2023 Emergency department patient visit Derrell Orantes Facility:[facility] Start: 09-09-2023 End: 09-09-2023 Emergency department patient visit Cris Pena Facility:[facility] Start: 09-09-2023 End: 09-09-2023 Emergency department patient visit [facility] Work Phone: Start: 08-27-2023 ambulatory Ladi Koch MD Work Phone: Spine Medicine Comment on above: Refill Request; Refi ll Request Start: 08-27-2023 E-mail encounter fro m caregiver Ladi Koch MD Work Phone: [facility] Start: 08-27-2023 Telephone encounter Ladi bassett MD Work Phone: Spine Medicine Comment on above: Appointment Start: 08-19-2023 ambulatory WAITER/[employer] Cris Karan MANJITRONALDO Facreese lity:[facility] Start: 08-15-2023 End: 08-15-2023 Emergency department patient visit Christian Locke Facility:[facility] Start: 08-14-2023 End: 08-14-2023 Emergency department patient visit Christian Locke Facility:[facility] Start: 08-13-2023 End: 08-13-2023 Emergency department patient visit Derrell Orantes Facility:[facility] Start: 08-07-2023 End: 08-07-2023 Emergency department patient visit DO Norma Dietz Facility:[facility] Start: 08-04-2023 ambulatory WAITER/[employer] Cris Russo JEAN Faci lity:[facility] Start: 07-17-2023 Refill Ladi Koch MD Work Phone: Pain Management Comment on above: Refill Request Start: 07-07-2023 Telephone encounter Lara Salinas RN [facility] Intake Start: 07-07-2023 End: 07-08-2023 ambulatory Jacqueline Marquez Facility:[facility] Start: 07-03-2023 End: 07-13-2023 Evaluation and management of inpatient Bobo Cornelius Facility:[facility] Start: 07-02-2023 End: 07-13-2023 Evaluation and management of inpatient [facility] [place] [address] Work Phone: Start: 07-02-2023 ambulatory Claudio Castaneda acility:[facility] Start: 07-02-2023 Registered Recurring RUIZ Pena Work Phone: [facility] Start: 07-01-2023 End: 07-02-2023 ambulatory Zahraa Connors Facility:[facility] Start: 06-17-2023 Telephone encounter Ladi bassett MD Work Phone: Pain Management Comment on above: Medication Problem Start: 06-09-2023 Refill Chuck Galindo MD Work Phone: Internal Medicine [place] Comment on above: Refill Request Start: 06-08-2023 End: 06-08-2023 Emergency department patient visit Luis Armando Hendrix Facility:[facility] Start: 06-08-2023 End: 06-08-2023 Emergency department patient visit [facility] Work Phone: Start: 06-06-2023 End: 06-06-2023 Emergency department patient visit GHASSAN [facility] Start: 05-22-2023 Refill Mireille Linden OCCUP THERAPIST.WAITER/[employer]RESS [employer] Work Phone: Family Medicine [place] Comment on above: Refill Request Start: 05-14-2023 Telephone encounter Rosa KleinHelmet Coverer) Madeline russo LPN [facility] [place] Comment on above: Patient Update Start: 05-14-2023 End: 05-14-2023 ambulatory MIREILLE MUHA Facility:[facility] Start: 04-24-2023 Telephone encounter Mireille Cheatham APRN.WAITER/[employer] Work Phone: Family Medicine [place] Comment on above: Medication Request Start: 04-22-2023 Telephone encounter Fernanda ENCARNACION Work Phone: Psychology Comment on above: BH consult Start: 04-19-2023 End: 04-19-2023 Emergency department patient visit Eribertodavid Sheppard Facility:[facility] Start: 04-19-2023 End: 04-19-2023 Emergency department patient visit OCCUP THERAPIST Cris Saraviaronaldo Work Phone: [facility] Work Phone: Start: 04-18-2023 End: 04-19-2023 Emergency department patient visit NON STAFF Facility:[facility] Start: 04-18-2023 End: 04-18-2023 Emergency department patient visit OCCUP THERAPIST Cris Pena Work Phone: [facility] Work Phone: Start: 04-16-2023 End: 04-16-2023 Nurse Triage Verónica Martínez RN NURSE [employer] Comment on above: Refill Request Thank you Attention deficit hy peractivity disorder (ADHD), unspecified ADHD type (Primary Dx); Paranoid schizophrenia (HCC); Bipolar depression (HCC); History of heroin abuse (HCC) Start: 04-13-2023 End: 04-13-2023 ambulatory Chuck Galindo MD Work Phone: [facility] Comment on above: Anxiety (Primary Dx) Start: 04-13-2023 End: 04-13-2023 Telemedicine consultation with patient Chuck Galindo MD Work Phone: [facility] Start: 04-02-2023 End: 04-03-2023 ambulatory NANCY RODRIGUEZ Facility:[facility] Start: 03-16-2023 End: 03-16-2023 ambulatory MIREILLE CHEATHAM Facility:[facility] Start: 03-16-2023 End: 03-16-2023 Patient encounter procedure Mireille Cheatham APRN.WAITER/[employer] Work Phone: [facility] Comment on above: Wellness examination (Primary Dx); Screening for diabetes mellitus; Screening for lipid disorders; Screening for cervical cancer; History of abnormal cervical Pap smear; History of heroin abuse (HCC); Attention deficit hyperactivity disorder (ADHD), unspecified ADHD type; Bipolar depression (HCC); Paranoid schizophrenia (HCC); Chronic midline low back pain without sciatica Start: 03-16-2023 End: 03-16-2023 Patient encounter status Mireille Cheatham APRN.WAITER/[employer] Work Phone: [facility] Start: 03-08-2023 End: 03-08-2023 Emergency department patient visit Heather Valenzuela Facility:[facility] Start: 02-24-2023 End: 02-24-2023 Emergency department patient visit Cris Pena Facility:[facility] Start: 02-24-2023 End: 02-24-2023 Emergency department patient visit RUIZ Pena Work Phone: [facility] Work Phone: Start: 02-05-2023 ambulatory WAITER/[employer] Cris Oliver lity:[facility] Start: 02-03-2023 End: 02-03-2023 Emergency department patient visit Leonard Salazar Facility:[facility] Start: 02-03-2023 End: 02-03-2023 Emergency department patient visit RUIZ Pena Work Phone: [facility] Work Phone: Start: 01-26-2023 End: 01-27-2023 Emergency department patient visit Farhad Landon Facility:[facility] Start: 01-26-2023 End: 01-26-2023 Emergency department patient visit DO Rachael Reyes Work Phone: [facility] Work Phone: Start: 01-19-2023 End: 02-06-2023 ambulatory JULIAN PENA Facility:CD:[id number] Start: 01-12-2023 End: 01-16-2023 Evaluation and management of inpatient Cris Pena Facility:[facility] Start: 01-12-2023 End: 01-16-2023 Evaluation and management of inpatient DO Rachael Reyes Work Phone: [facility] Work Phone: Start: 01-12-2023 End: 01-12-2023 Emergency department patient visit DO Noahmarcelinoapoorva Dietz Facility:[facility] Start: 01-12-2023 End: 01-12-[address] DOCTOR PATEL Facility:[facility] Start: 01-08-2023 End: 01-08-2023 Emergency department patient visit Derrell Oarntes Facility:[facility] Start: 01-08-2023 End: 01-08-[address] DOCTOR PATEL Facility:[facility] Start: 01-07-2023 ambulatory WAITER/[employer] Cris PENA Faci lity:[facility] Start: 12-15-2022 End: 12-16-[address] DOCTOR PATEL Facility:[facility] Start: 12-04-2022 ambulatory WAITER/[employer] Cris PENA Faci lity:[facility] Start: 12-02-2022 End: 12-03-2022 ambulatory WAITER/[employer] Cris PENA Facility:[facility] Start: 11-20-2022 End: 11-20-2022 Emergency department patient visit Cris Pena Facility:[facility] Start: 11-20-2022 End: 11-20-2022 Emergency department patient visit DO Rachael Reyes Work Phone: [facility] Work Phone: Start: 11-20-2022 End: 11-20-2022 Emergency department patient visit Cris Pena Facility:[facility] Start: 11-20-2022 End: 11-20-2022 Emergency department patient visit DO Rachael Reyes Work Phone: [facility] Work Phone: Start: 11-09-2022 End: 11-10-2022 Emergency department patient visit Christian Locke Facility:[facility] Start: 11-09-2022 End: 11-10-2022 Emergency department patient visit Christian Locke [facility] Start: 11-06-2022 End: 11-07-2022 ambulatory WAITER/[employer] Cris E ROBRONALDO Facility:[facility] Start: 11-06-2022 End: 11-06-2022 Patient encounter procedure Cris E ROBUCK [facility] Start: 10-10-2022 End: 10-11-2022 ambulatory WAITER/[employer] Cris E ROBUCK Facility:[facility] Start: 10-10-2022 End: 10-10-2022 Patient encounter procedure Cris E ROBUCK [facility] Start: 10-10-2022 ambulatory WAITER/[employer]RESS [employer] Cris ROBRONALDO Facili ty:[facility] Start: 10-02-2022 End: 10-03-2022 ambulatory NANCY W MICHAEL Facility:[facility] Start: 10-02-2022 End: 10-02-2022 Patient encounter procedure NANCY W SIDESTEVIE [facility] [place] Start: 08-08-2022 End: 08-09-2022 Emergency department patient visit DO Rachael Reyes Work Phone: [facility] Start: 06-22-2022 End: 06-23-[address] STACI HENDRIX Facility:[facility] Start: 06-16-2022 End: 06-17-[address] STACI HENDRIX Facility:[facility] Start: 04-24-2022 End: 04-25-2022 Emergency department patient visit Luis Armando Franz [facility] Start: 04-11-2022 End: 04-12-[address] SULTANA DOOLEY Facility:[facility] Start: 02-05-2021 End: 02-11-2021 Evaluation and management of inpatient ADDIE THORPE [facility] Start: 07-27-2020 Telephone encounter Adam chaudhary Work Phone: [facility] [employer] Comment on above: Results (abnormal pa p needs colposcopy appt) Start: 07-26-2020 Telephone encounter Jaylyn richards Work Phone: [facility] [employer] Comment on above: Other (scheduled col poscopy appointment ) Start: 07-18-2020 Patient encounter procedure [facility] [place] Start: 07-18-2020 End: 07-31-2020 Evaluation and management of inpatient CAROL MOSES [facility] Start: 07-17-2020 Patient encounter procedure [facility] Admitting Start: 05-14-2019 End: 05-14-2019 Emergency department patient visit [facility] Start: 05-08-2019 Emergency department patient visit [facility] Procedures Date Procedure Procedure Detail Performing Clinician Start: 06-08-2023 Urine culture Start: 02-03-2023 Urine culture OCCUP THERAPIST Mena Pena Work Phone: Start: 01-12-2023 Urine culture DO Desmond Reyes Work Phone: Start: 07-31-2020 DISCHARGE PATIENT CAROL MOSES Start: 07-24-2020 Iadna human papillom avirus types 16 & 18 only CAROL MOSES Start: 07-24-2020 Cytp cervical/vagina l req interp physician CAROL MOSES Start: 07-24-2020 Cytp cervical/vagina l req interp physician Jaylyn E Rocio Work Phone: Start: 07-24-2020 Iadna jose ramon specie s direct probe tq CAROL MOSES Start: 07-24-2020 Cytopath fl nongyn, sm/fltr CAROL MOSES Start: 07-24-2020 Iadna jose ramon specie s direct probe tq Jaylyn E Rocio Work Phone: Start: 07-23-2020 NURSING COMMUNICATION E STELLA MOSES Start: 07-23-2020 Us transvaginal CAROL RO TORI Start: 07-23-2020 Urine test visual color cmprsn meths CAROL MOSES Start: 07-23-2020 Blood count complete auto&auto difrntl wbc CAROL MOSES Start: 07-23-2020 Us pelvic nonobstetr ic real-time image complete Verónica London Work Phone: Start: 07-23-2020 Us transvaginal Verónica London Work Phone: Start: 07-23-2020 Urine test visual color cmprsn meths Krystal Viveros Newman Work Phone: Start: 07-23-2020 Blood count complete auto&auto difrntl wbc Hussein Eric Work Phone: Start: 07-23-2020 IP CONSULT TO PROTOTYPE DEICER ASSEMBLER ER IC MOSES Start: 07-22-2020 IP CONSULT TO CONCEPTOR AL MEDICINE CAROL MOSES Start: 07-21-2020 Drug assay valproic dipropylacetic acid total CAROL MOSES Start: 07-21-2020 Drug assay valproic dipropylacetic acid total Janina Edmondson Work Phone: Start: 07-21-2020 T. PALLIDUM AB Janina noel Work Phone: Start: 07-20-2020 C.TRACHOMATIS N.GONO RRHOEAE DNA, URINE CAROL MOSES Start: 07-20-2020 Ecg routine ecg w/le ast 12 lds w/i&r CAROL MOSES Start: 07-20-2020 EKG REPORT CAROL WALLACE Start: 07-20-2020 Iadna chlamydia trac homatis amplified probe tq Janina Edmondson Work Phone: Start: 07-20-2020 Ecg routine ecg w/le ast 12 lds i&r only Janina Edmondson Work Phone: Start: 07-20-2020 EKG REPORT Hpf Scanni ng Start: 07-20-2020 Blood count complete auto&auto difrntl wbc CAROL MOSES Start: 07-20-2020 Assay of thyroid stimulating hormone tsh Addie Mendezapoorvanavid Work Phone: Start: 07-20-2020 Blood count complete auto&auto difrntl wbc Addie Thorpe Work Phone: Start: 07-20-2020 Comprehensive metabo lic panel Addie Mendezapoorvanavid Work Phone: Start: 07-20-2020 Antibody hiv-1&hiv-2 single result CAROL MOSES Start: 07-20-2020 Antibody hiv-1&hiv-2 single result Raúl S Teagan Work Phone: Start: 07-20-2020 Hepatitis c antibody Ra nvir S Teagan Work Phone: Start: 07-19-2020 IP CONSULT TO CONCEPTOR AL MEDICINE CAROL MOSES Start: 07-18-2020 IP CONSULT TO HISTOR Y AND PHYSICAL CAROL MOSES Start: 07-18-2020 MISCELLANEOUS NURSIN G CARE ORDER (SPECIFY) CAROL MOSES Start: 07-18-2020 PATIENT MONITORING C LOSE Q 15 MINUTES CAROL MOSES Start: 07-18-2020 VITAL SIGNS CAROL BRITT SON Start: 07-18-2020 DIET GENERAL CAROL WALLACE Start: 07-18-2020 FULL CODE CAROL WALLACE Start: 07-18-2020 PATIENT STATUS (DIRECT) CAROL MOSES Start: 05-08-2019 Assay of lipase LUCAS HOFFMANN Start: 05-08-2019 Culture bacterial quanttative colony count urine LUCAS HOFFMANN Start: 05-08-2019 Gonadotropin chorion ic qualitative LUCAS HOFFMANN Start: 05-08-2019 Urnls dip stick/tabl et rgnt auto w/o microscopy LUCAS HOFFMANN Start: 05-08-2019 Blood count complete auto&auto difrntl wbc LUCAS HOFFMANN Start: 05-08-2019 Radex abd compl aqt abd w/s/e/d views 1 view ch LUCAS HOFFMANN Start: 10-12-2011 teeth extraction Luis Armando catherine denies Luis Armando Franz SARS Antigen (LFIA) DO Kavitha Reyes Work Phone: Plan of Treatment Date Care Activity Detail Author Start: 07-22-2028 DTaP/Tdap/Td vaccine (3 - Td) DTaP/Tdap/Td vaccine (3 - Td) [place] Start: 07-22-2028 Urine microalbumin profile [facility] Start: 04-16-2024 ANNUAL PCP TEAM CHECKROOM CHIEF SHARLA DISEASE VISIT ANNUAL PCP TEAM CHRONIC DISEASE VISIT [facility] Start: 04-13-2024 ANNUAL PCP TEAM CHECKROOM CHIEF SHARLA DISEASE VISIT ANNUAL PCP TEAM CHRONIC DISEASE VISIT [facility] Start: 03-16-2024 ANNUAL PCP TEAM CHECKROOM CHIEF SHARLA DISEASE VISIT ANNUAL PCP TEAM CHRONIC DISEASE VISIT [facility] Start: 09-14-2023 [facility] Start: 07-24-2023 Screening for malign ant neoplasm of cervix Cervical cancer screen [place], [place] Start: 07-13-2023 [facility] Start: 07-02-2023 Hospital admission [facility] Start: 06-12-2023 Influenza vaccination [facility] Start: 06-08-2023 Bacteria identified in Urine by Culture Urine Culture [facility] Start: 03-16-2023 End: 05-16-2023 Comprehensive metabolic 2000 panel - Serum or Plasma COMP METABOLIC PANEL Lab Routine Screening for diabetes mellitus Expected: 03/16/2023, Expires: 05/16/2023 [facility] Work Phone: Comment on above: Expected: 03/16/2023 , Expires: 05/16/2023 Start: 03-16-2023 End: 05-16-2023 Hemoglobin A1c in Blood HGB A1C Lab Routine Screening for diabetes mellitus Expected: 03/16/2023, Expires: 05/16/2023 [facility] Work Phone: Comment on above: Expected: 03/16/2023 , Expires: 05/16/2023 Start: 03-16-2023 End: 05-16-2023 Lipid 1996 panel - Serum or Plasma LIPID PANEL BASIC Lab Routine Screening for lipid disorders Expected: 03/16/2023, Expires: 05/16/2023 [facility] Work Phone: Comment on above: Expected: 03/16/2023 , Expires: 05/16/2023 Start: 01-16-2023 [facility] Start: 01-12-2023 Bacteria identified in Urine by Culture Urine Culture [facility] Start: 01-12-2023 Hospital admission [facility] Start: 11-20-2022 [facility] Start: 08-08-2022 Plain chest X-ray XR chest 2V* [facility] Start: 08-08-2022 XR Chest [address] [facility] Start: 06-12-2020 Influenza vaccination Flu vaccine (# 1) [employer] [place], [place] Start: 07-15-2019 HEPATITIS A (2 of 2 - Risk 2-dose series) HEPATITIS A (2 of 2 - Risk 2-dose series) [facility] Start: 07-15-2019 Hepatitis A Vaccine (2 of 2 - Risk 2-dose series) Hepatitis A Vaccine (2 of 2 - Risk 2-dose series) [facility] Start: 2015 HPV TESTING HPV TESTING [facility] Start: 12-26-2014 PNEUMOCOCCAL (2 - PCV) PNEUMOCOCCAL (2 - PCV) [facility] Start: 12-26-2014 Pneumococcal vaccination Pneum ococcal Vaccine (2 - PCV) [facility] Start: 2006 PAP TESTING PAP TESTING [facility] Start: 2003 SPIROMETRY SPIROMETRY [facility] Start: 07-07-1997 HEPATITIS B (2 of 3 - 3-dose series) HEPATITIS B (2 of 3 - 3-dose series) [facility] Start: 07-07-1997 Hepatitis B vaccine (2 of 3 - 3-dose primary series) Hepatitis B vaccine (2 of 3 - 3-dose primary series) [place] Start: 07-07-1997 Hepatitis B Vaccine (2 of 3 - 3-dose series) Hepatitis B Vaccine (2 of 3 - 3-dose series) [facility] Start: 1991 Pneumococcal 0-64 ye ars Vaccine (1 of 1 - PPSV23) Pneumococcal 0-64 years Vaccine (1 of 1 - PPSV23) [place] Start: 1986 Varicella vaccine (1 of 2 - 2-dose childhood series) Varicella vaccine (1 of 2 - 2-dose childhood series) [place] Start: 1985 COVID-19 VACCINE (#1) COVID-19 VACCI NE (#1) [facility] Albumin/Globulin ratio [facility] Anion gap measurement [facility] Basophils [#/volume] in Blood by Automated count [facility] Basophils/100 leukoc ytes in Blood by Automated count [facility] Calculated LDL cholesterol level [facility] Cholesterol.total/Ch oles terol in HDL [Mass Ratio] in Serum or Plasma [facility] Eosinophils [#/volum e] in Blood [facility] Eosinophils/100 leukocytes in Blood by Automated count [facility] Erythrocyte distribu tion width [Ratio] by Automated count [facility] Erythrocytes [#/volu me] in Blood [facility] Ethanol [Mass/volume ] in Serum or Plasma [facility] Globulin [Mass/volum e] in Serum [facility] Hematocrit [Volume Fraction] of Blood [facility] Hemoglobin [Mass/vol ume] in Blood [facility] Leukocytes [#/volume ] corrected for nucleated erythrocytes in Blood by Automated coun [facility] Leukocytes [#/volume ] in Blood [facility] Lymphocytes [#/volum e] in Blood by Automated count [facility] Lymphocytes/100 leukocytes in Blood by Automated count [facility] MCH [Entitic mass] b y Automated count [facility] MCHC [Mass/volume] b y Automated count [facility] MCV [Entitic volume] by Automated count [facility] Monocytes [#/volume] in Blood by Automated count [facility] Monocytes/100 leukoc ytes in Blood by Automated count [facility] Neutrophils [#/volum e] in Blood by Automated count [facility] Neutrophils/100 leukocytes in Blood by Automated count [facility] Nucleated erythrocyt es [Presence] in Blood by Automated count [facility] Patient Education [facility] Work Phone: Patient referral [facility] Work Phone: Platelet mean volume [Entitic volume] in Blood by Automated count [facility] Platelets [#/volume] in Blood [facility] VLDL cholesterol measurement [facility] Immunizations Immunization Date Immunization Notes Care Provider Sameera duncan 11-08-2019 Influenza, injectabl e, Madin Marcy Canine Kidney, preservative free, quadrivalent DO Rachael Reyes Work Phone: [facility] 11-08-2019 influenza virus vacc ine, unspecified formulation Mireille Cheatham APRN.WAITER/[employer] Work Phone: [facility] 01-13-2019 hepatitis A vaccine, adult dosage Mireille Cheatham APRN.WAITER/[employer] Work Phone: [facility] Work Phone: 07-22-2018 tetanus toxoid, redu juan alberto diphtheria toxoid, and acellular pertussis vaccine, adsorbed Luis Armando Franz [facility] Comment on above: Reason for Medicatio n: Other (see comment) 09-26-2016 influenza, injectabl e, quadrivalent, preservative free Mireille Cheatham APRN.WAITER/[employer] Work Phone: [facility] Work Phone: 09-26-2016 RHO(D) immune globul in- IV or IM Mireille Cheatham APRN.WAITER/[employer] Work Phone: [facility] Work Phone: 09-26-2016 tetanus toxoid, redu juan alberto diphtheria toxoid, and acellular pertussis vaccine, adsorbed Mireille Cheatham APRN.WAITER/[employer] Work Phone: [facility] Work Phone: 12-26-2013 influenza, seasonal, injectable Luis Armando [facility] [facility] pneumococcal polysaccharide vaccine, 23 valent [facility]ando [facility] 07-26-2012 tetanus toxoid, redu juan alberto diphtheria toxoid, and acellular pertussis vaccine, adsorbed [facility] Comment on above: Reason for Medicatio n: Other (see comment) 10-18-2011 pneumococcal polysaccharide vaccine, 23 valent [facility] Comment on above: Early/Late Reason: A ccommodate D/C 10-18-2011 influenza, seasonal, injectable [facility] Comment on above: Early/Late Reason: A ccommodate D/C 2010 novel influenza-H1N1 -09, preservative-free, injectable Mireille Cheatham APRN.[facility] Work Phone: [facility] Work Phone: 06-09-1997 hepatitis B vaccine, pediatric or pediatric/adolescent dosage Mireille Cheatham APRN.[employer] Work Phone: [facility] Work Phone: 06-09-1997 measles, mumps and rubella virus vaccine Mireille Cheatham APRN.[employer] Work Phone: [facility] Work Phone: 06-09-1997 hepatitis B vaccine, unspecified formulation Mireille Cheatham APRN.[employer] Work Phone: [facility] Payers Date Payer Category Payer Self-pay [id number] 2022 Medicaid [place] [employer] [place] [employer] [id number] 2022-Present [phone] [address] [place] [address] Medicaid [id number] 1985 Unknown [id number] 2.16.840.1.353433.3.579.2.173 1985 Unknown [id number] 2.16.840.1.794644.3.579.2.173 1985 Unknown [id number] 2.16.840.1.770342.3.579.2.176 1985 Unknown [id number] 2.16.840.1.778161.3.579.2.176 1985 Unknown [id number] 2.16.840.1.005152.3.579.2.593 1985 Unknown [id number] 2.16.840.1.124266.3.579.2.593 1985 Unknown [id number] 2.16.840.1.440413.3.579.2.593 1985 Unknown [id number] 2.16.840.1.688043.3.579.2.593 1985 Unknown [id number] 2.16.840.1.809185.3.579.2.593 1985 Unknown [id number] 2.16.840.1.007496.3.579.2.593 1985 Unknown [id number] 2.16.840.1.469161.3.579.2.902 1985 Unknown [id number] 2.16.840.1.171184.3.579.2.727 1985 Unknown [id number] 2.16.840.1.618369.3.579.2.727 1985 Unknown [id number] 2.16.840.1.163980.3.579.2.727 1985 Unknown [id number] 2.16.840.1.331561.3.579.2 1985 Unknown [id number] 2.16.840.1.767434.3.579.2 1985 Unknown [id number] 2.16.840.1.553400.3.579.2 1985 Unknown [id number] 2.16.840.1.056582.3.579.2 1985 Unknown [id number] 2.16.840.1.114661.3.579.2 1985 Unknown [id number] 2.16.840.1.129399.3.579. 1985 Unknown [id number] 2.16.840.1.909120.3.579.2 1985 Unknown [id number] 2.16.840.1.830011.3.579.2 1985 Unknown [id number] 2.16.840.1.213344.3.579. 1985 Unknown [id number] 2.16.840.1.980881.3.579.2 1985 Unknown [id number] 2.16.840.1.748036.3.579.2 1985 Unknown [id number] 2.16.840.1.253933.3.579.2 1985 Unknown [id number] 2.16.840.1.783081.3.579.2 1985 Unknown [id number] 2.16.840.1.205550.3.579.2 1985 Unknown [id number] 2.16.840.1.794943.3.579.2 1985 Unknown [id number] 2.16.840.1.136723.3.579.2 1985 Unknown [id number] 2.16.840.1.890642.3.579.2.727 1985 Unknown [id number] 2.16.840.1.482602.3.579.2.727 1985 Unknown [id number] 2.16.840.1.046792.3.579.2.727 1959 Unknown [id number] Unknown [id number] 2.16.840.1.138013.3.579.2.531 Unknown [id number] 2.16.840.1.096680.3.579.2.531 Unknown [id number] 2.16.840.1.282495.3.579.2.531 Unknown [id number] 2.16.840.1.592692.3.579.2.531 Unknown [id number] 2.840.1.499314.3.579.2.531 Unknown [id number] 2.16.840.1.276143.3.579.2.531 Unknown [id number] 2.16.840.1.142757.3.579.2.531 Unknown [id number] 2.16.840.1.512087.3.579.2.531 Unknown [id number] 2.16.840.1.195928.3.579.2.531 Unknown [id number] 2.840.1.388705.3.579.2.531 Unknown [id number] 2.16840.1.199867.3.579.2.531 Unknown [id number] 2.16840.1.248384.3.579.2.531 Unknown [id number] 2.16840.1.124392.3.579.2.531 Unknown [id number] 2.16840.1.119341.3.579.2.531 Social History Date Type Detail Facility Start: 07-23-2020 End: 06-05-2023 Tobacco smoking status NHIS Current every day smoker [facility] History of tobacco use [facility] Start: 07-23-2020 End: 03-16-2023 Cigarettes smoked current (pack per day) - Reported [facility] Work Phone: Start: 07-23-2020 Tobacco use and exposure [facility] Start: 07-23-2020 End: 04-24-2023 Alcohol intake Current non-drinker of alcohol (finding) [place], [place] Start: 06-15-2015 Alcohol Comment unsure Sherrell Chua [place], [place] Start: 1985 Sex Assigned At Not on file M [place], [place] Exposure to SARS-CoV -2 (event) Not sure [place] Start: 11-01-2021 End: 10-10-2022 Tobacco smoking status Light tobacco smoker (finding) [facility] Start: 08-08-2022 End: 10-02-2023 Tobacco smoking status Smoker (finding) [facility] Tobacco smoking status Never [facility] Start: 03-16-2023 End: 04-16-2023 Sex Assigned At Female [facility] Start: 1985 Sex Assigned At Female F [facility] Tobacco [facility] Comment on above: denies Tobacco smoking status No Smokin g Status Entered [facility] Goals Date Patient Goal Desired Activity /State Functional Status Date Assessment Result Facility 07-13-2023 Functional status Patient at Baseline [facility] Work Phone: 01-16-2023 Functional status Patient at Baseline [facility] Work Phone: 11-09-2022 Functional Status N/A [facility] 11-06-2022 Functional Status N/A [facility] 10-10-2022 Functional Status N/A [facility] 10-02-2022 Functional Status N/A [facility] 04-24-2022 Functional Status N/A [facility] Mental Status Date Assessment Result Facility 07-13-2023 Cognitive function Cognitive Sta tus Patient at Baseline [facility] Work Phone: 01-16-2023 Cognitive function Cognitive Sta tus Patient at Baseline [facility] Work Phone: Clinical Notes 04-24-2022 to 08-28-2023 Telephone Encounter - Ирина Jack MD - 08/28/2023 5:56 PM ESTTelephone Encounter - Philip Mathis RN - 08/28/2023 11:15 AM ESTTelephone Encounter - Marvin Sanchez - 08/27/2023 2:10 PM EST Note Date & Type Note Facility 08-28-2023 Miscellaneous Notes Formattin g of this note might be different from the original. Patient called for her Lyrica prescription. She says she is 2 weeks overdue and she takes 200mg three times daily.She has been trying to get in touch with her physician- Víctor Koch MD, but unable to. From her note, her last prescription was 100mg TID. Also, it seems she had called earlier today to speak with a nurse who mentioned in their note that a prescription was sent to her pharmacy. I called the pharmacy to confirm and prevent duplicate medications, and the pharmacist mentioned that they did not receive any Lyrica order. I reordered Lyrica 100mg TID for 30days. Nahum Jack MD Pain Medicine Fellow bus person. 08/28/23 Patient states she never had lyrica filled in August & now wants to change pharmacy to [facility]. HEENA: 04/16/2023 NOV: 10/16/2023 Last Refill: 09/15/2023 Plan: -stop gabapentin and start Lyrica Week one: Gabapentin 800 mg twice daily and Lyrica 75 mg at bedtime Week two: Gabapentin 800 mg in the morning and Lyrica 75 mg in the afternoon and at bedtime Week three: Lyrica 75 mg three times per day thereafter Philip Mathis RN August 28, 2023 11:18 AM Patient called to inquire about medication request and to verify that medication would be sent to [facility] in [place]. Please advise patient with an update. [phone] (mobile) Patient has been identified by name and date of : Yes Requested Prescriptions Pending Prescriptions Disp Refills pregabalin (LYRICA) 100 mg capsule 90 capsule 2 Sig: Take 1 capsule by mouth three times a day for 90 days. RX INSTRUCTIONS: Patient aware RX will be sent to pharmacy. No need to notify patient. Brittany Pichardo documented in this encounter [facility] 08-27-2023 Miscellaneous Notes Formattin g of this note might be different from the original. Pt is requesting refill for lyrica Last ordered 07/17/23 no refills #90 ended 08/16/23 HEENA 04/16/23 Plan: -stop gabapentin and start Lyrica Week one: Gabapentin 800 mg twice daily and Lyrica 75 mg at bedtime Week two: Gabapentin 800 mg in the morning and Lyrica 75 mg in the afternoon and at bedtime Week three: Lyrica 75 mg three times per day thereafter Patient is calling back to ask if she could get a refill for the regular dose for her Lyrica. Please advise. pregabalin (LYRICA) 100 mg capsule e- [facility] [address] [facility] [phone] [id number] Patient [phone] (home) [phone] (cell) LVM for patient regarding Dr. Rodriguez's response to dog bite & pain medication. Philip Mathis RN August 27, 2023 1:27 PM Patient called & stated she recently gotten bit by a Pitbull & went to [place] ED and got antibiotics but they refused to give her pain medications. Patient asking for Lyrica to be increased to 200mg (currently 100mg) and wants a pain pill. I explained she is on Methadone & receiving an outside narcotic could break her contract with methadone clinic. Patient denies and states she is able to get outside pain medication. Please advise. Philip Mathis RN August 27, 2023 11:49 AM documented in this encounter [facility] 08-27-2023 Miscellaneous Notes Formattin g of this note might be different from the original. Patient called & stated she recently gotten bit by a Pitbull & went to [place] ED and got antibiotics but they refused to give her pain medications. Patient asking for Lyrica to be increased to 200mg (currently 100mg) and wants a pain pill. I explained she is on Methadone & receiving an outside narcotic could break her contract with methadone clinic. Patient denies and states she is able to get outside pain medication. Please advise. Philip Mathis RN August 27, 2023 11:45 AM documented in this encounter [facility] 07-17-2023 Miscellaneous Notes Formattin g of this note might be different from the original. Please verify Lyrica rx. Is correct, Medication hx. Shows 2 separate rx.'s for Lyrica filled 2 days apart, one on 06/18/23 & 06/17/23. Philip Mathis RN July 17, 2023 10:48 AM Patient has been identified by name and date of : Yes +++Patient is asking if the provider could increase the medication to 150 mg capsule instead. If not she understands but would like this dose refilled. She will follow up at the next visit.+++ Requested Prescriptions Pending Prescriptions Disp Refills pregabalin (LYRICA) 100 mg capsule [Pharmacy Med Name: Pregabalin 100 MG Oral Capsule] 90 capsule 0 Sig: Take 1 capsule by mouth three times a day for 30 days. HEENA: 04/16/2023 NOV: 08/12/2023 RX INSTRUCTIONS: Patient aware RX will be sent to pharmacy. No need to notify patient. Marvin Sanchez documented in this encounter [facility] 07-13-2023 Discharge summary Note Date/Time July 13, 2023 9:38am [facility] [address] [place] [address] Discharge Summary Signed Patient: Lorna Deutsch MR#: [id number] : 1985 Acct:[id number] Age/Sex: 38 / F Adm Date: 3 Loc: Room: [address] [place] [address]: Bobo Shields MD Copies to: NON STAFF Bobo Shields MD~ Providers Date of Discharge: 07/13/23 Discharging Provider: Bobo Shields Primary Care Provider: NON STAFF Discharge Diagnosis (1) Bipolar disorder, unspecified: Final Diagnosis Final Discharge Diagnosis: Unspecified bipolar disorder Summary Hospital Course Hospital course: According to admission note: Ms. Deutsch is a 38 year old female who presented due to concern for depression and suicidal ideation. She also reported having voices that were telling her to kill herself. Upon assessment, patient reported that she has been feeling depressed and suicidal. She reported that she has been feeling low energy and anhedonic. Shestated that her appetite has been decreased as well. She reported that she has been experiencing auditory hallucinations that say bad things about her. She reported that she was just at [facility] [place] and had medication changes and she prefers the Seroquel instead of the Haldol. Past psych history: History of bipolar disorder Past hospitalizations: History past psychiatric hospitalizations Past suicide attempts: Reported prior suicide attempts Family psych history: Reported family history in her brother, mom and sister Previous medications: Rexulti, Seroquel, Klonopin Alcohol and drug use: Reported opiate addiction and currently on methadone Living: With partner Employment: Unemployed Patient was stabilized on Depakote, Klonopin, Cymbalta and Seroquel. She tolerated the medication did not report any side effects. She had ongoing hallucinations and suicidality that persisted but gradually improved as time went on. She started to socialize with peers more appropriately. She attended groups and participated well with staff and peers. She was occasionally med seeking and requested multiple controlled substance medications. She did reportthat she wanted to be tapered off her methadone which was gradually decreased during hospitalization. On the day of discharge, patient reported that she was doing better. She denied any depression or suicidality. She felt comfortable to discharge plan home and following up with outpatient services. She stated that she would follow-up with the methadone clinic about continuing the taper ofmethadone. She believes that klonopin and Adderall would help her get off her methadone. Time spent discussing smoking cessation with patient: 3 to 10 minutes Condition Condition at Discharge: Stable Status at Discharge Cognitive/behavioral status at discharge: Mental Status Exam: Appearance: grossly normal Mental Status: mental status grossly normal Mood: Euthymic mood Affect: Normal affect Speech and Movement: speech and movement normal and speech clear Attitude: cooperative Thought Process: normal Thought Content: Denied hallucinations, no homicidality and no suicidality Insight: Good Judgment: Good Functional status at discharge: independent ambulation Overall status at discharge: patient is back to baseline Time Spent with Patient Time spent providing/coordinating discharge services (# min): 30 Exam Physical Exam Vital Signs: Temp Pulse Resp BP Pulse Ox O2 Del Method 98.4 F 98 H 20 105/72 95 Room Air 07/13/23 07:30 07/13/23 07:30 07/13/23 07:30 07/13/23 07:30 07/13/23 07:30 07/13/23 07:30 Discharge Plan Discharge Plan Patient Disposition: Home Activity: No Activity Restriction Diet: Regular Additional Instructions: Important Contact Information You can call [facility] at [phone] any time day or night if you have emergent questions or question regarding discharge instructions. If at any time you are feeling an increase inyour psychiatric symptoms, call your physician or behavioral healthcare provider. If any time you have thoughts of harming yourself or others contact one of the following: Call (available 04/05) Crisis Text Line (available 04/05) text [facility]HOPE to [phone] [facility] InVisM Line (available 8 a.m. Midnight) call [phone] ([phone]) Regular Diet No Activity Restrictions Instructions: Bipolar Disorder (DC), [facility] Behavior[facility] Health DC Instructions Prescriptions: New nicotine (polacrilex) 2 mg Gum 2 mg buccal Q2HR PRN (Reason: Nicotine Cravings) Qty: 60 0RF dextroamphetamine-amphetamine 20 mg Tablet 20 mg PO BID.9A.2P 21 Days Qty: 42 0RF divalproex 500 mg Tablet Extended Release 24 Hr 1,000 mg PO QHS 30 Days Qty: 60 0RF methadone [Methadose] 10 mg/mL Concentrate 135 mg PO DAILY Qty: 0 0RF duloxetine 30 mg Capsule,Delayed Release(Dr/Ec) 30 mg PO BID 30 Days Qty: 60 0RF quetiapine 150 mg tablet 150 mg PO QHS 30 Days Qty: 30 0RF quetiapine 50 mg Tablet 50 mg PO DAILY@1600 Qty: 30 0RF Continued albuterol sulfate 90 mcg/actuation HFA aerosol inhaler 2 puff Inhalation Q4H PRN (Reason: Shortness Of Breath) Patient Comments: inhale 2 puffs by mouth every 4 hours if needed for shortness of breath pregabalin 100 mg capsule 100 mg PO TID Patient Comments: TAKE 1 CAPSULE BY MOUTH THREE TIMES DAILY trazodone 50 mg tablet 50 mg PO QHS PRN (Reason: Insomnia) Qty: 30 0RF hydroxyzine HCl 50 mg tablet 50 mg PO Q6H PRN (Reason: Anxiety) 30 Days Qty: 60 0RF Changed clonazepam 0.5 mg tablet 0.5 mg PO BID PRN (Reason: Anxiety) 21 Days Qty: 42 0RF Discontinued haloperidol 5 mg tablet 5 mg PO BID divalproex 500 mg tablet extended release 24 hr 750 mg PO QHS methadone 40 mg Tablet,Soluble 144 mg PO DAILY venlafaxine 75 mg capsule,extended release 24hr 75 mg PO DAILY Patient Comments: TAKE 1 CAP ONCE A DAY AT 9AM FOR ANXIETY Follow Up: [facility] [Outside] [facility] [Outside] - 07/14/23 1:00 pm ( 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 Please bring a copy of your photo ID, insurance card, and proof of household income. Therapy:?Thursday07/15/23 at 11:00am. Nurse: Thursday07/17/23 at 10:00am. See attached nurse sheet for information to bring. ? Psychiatry: Thursday07/21/23 at 11:00am with Dr. Shields. ) [facility] ([place]) [Outside] (Please establish care with a primary provider for any medical concerns. ) Documented By: oBbo Shields MD 07/13/23 0937 Signed By: <Electronically signed by Bobo Shields MD> 07/13/23 1526 [facility] Work Phone: 1(457) 447-231209-30-2023 Progress note Author Claudio case [facility] July 11, 2023 7:38am Note Date/Time July 11, 2023 7:38am [facility] [address] [place] [address] Psychiatry Progress Note Signed Patient: Lorna Deutsch MR#: [id number] : 1985 Acct:[id number] Age/Sex: 38 / F Adm Date: 3 Loc: Room: [address] [place] [address] Type : ADM IN Attending Dr: Bobo Shields MD Copies to: ~ Date of Service: 07/11/2023 Subjective Subjective Narrative: Ms. Deutsch reported she continues to feel depressed but denied SI/HI. She is aware of tapring off Klonopin. She denied any withdrawal symptoms. Discussed risks of benzodiazepine which include potential for misuse, pharmacologic tolerance, cognitive dulling, and possible hastening of subsequent affective episodes. She denied any thang or psychosis. Appearance: grossly normal Mental Status: mental status grossly normal Mood: dysthymic mood Affect: dysphoric affect Speech and Movement: speech and movement normal and speech clear Attitude: cooperative Thought Process: normal Thought Content: Reported auditory hallucinations, no homicidality, reported suicidality Insight: fair Judgment: fair Exam Physical Exam Vital Signs: Temp Pulse Resp BP Pulse Ox O2 Del Method 98.2 F 88 16 108/71 96 Room Air 07/10/23 18:44 07/10/23 18:44 07/10/23 18:44 07/10/23 18:44 07/10/23 18:44 07/10/23 18:44 Abnormal Involuntary Movement Dental Status Are dentures usually worn?: No Assessment/Plan Assessment/Plan (1) Bipolar disorder, unspecified: Code(s): F31.9 - Bipolar disorder, unspecified Status: Acute Plan Patient still reporting some hallucinations, delusions and suicidal thoughts Per [facility], patient's risk score is 670. She is prescribed clonazepam, pregabalin,dextroamphetamine-amphetamine, and Percocet. - dextroamphetamine-amphetamine 10mg filled 04/16/23 qt 120 for 30 days. - Pregabalin 100mg was last filled on 06/18/2023 qt.90 for 30 days. and on 06/06/23 qt.90 for 30 days. - Clonazepam 1mb was filled on 06/18/23 qt. 45 for 30 days and on 06/14/23 0.5mgqt5 for 2 says and 06/07/23 0.5mg qt. 30 for 15 days and 04/27/23 1mg qt.48 for 16 days. - Percocet 5-325 filled 06/06 qt 2 for 1 day. Current controlled medications regimen per [facility]ARS is problematic. Patient is on too many controlled medications prescribed by many providers. Gradually taper off Klonopin. Will dose it tomorrow 0.25 mg once daily PRN. Continue Depakote 1000 mg PO QHS Continue Cymbalta 30 mg twice a day Continue Klonopin as needed and methadone daily. Discussed risks of current med regimen include but not limited respiratory suppression. Continue Seroquel 150 mg at bedtime and continue Seroquel 50 mg PO Q 4 pm to help with the AH. Continue Adderall, OARRS reviewed. Should work with outpatient prescribed on simplifying med regimen and avoiding multiple controlled meds. Educated about multiple controlled substance medications and risk of overdose Continue to monitor mental status Encourage group participation and medication compliance Risk benefits alternatives explained Documented By: Claudio Dee MD [id number] Signed By: <Electronically signed by Claudio Dee MD> 07/11/23 0738 [facility] Work Phone: 1(143) 156-270309-29-2023 Progress note Author Claudio case [facility] July 10, 2023 3:21pm Note Date/Time July 10, 2023 10:52am [facility] [address] [place] [address] Psychiatry Progress Note Signed Patient: Lorna Deutsch MR#: [id number] : 1985 Acct:[id number] Age/Sex: 38 / F Adm Date: 3 Loc: Room: [address] [place] [address] Type : ADM IN Attending Dr: Bobo Shields MD Copies to: ~ Date of Service: 07/10/2023 Subjective Subjective Narrative: Ms. Deutsch reported she continues to feel depressed. She slept most of the day yesterday stating that she was feeling depressed. Pt denies SI, HI, or AVH. She states that she is upset because her controlled medications are being discontinued. She expressed that she is not sure why she cannot be on them as her doctors have prescribed them and are aware of her current medication use. Denies any medication side effects. Patient was personally seen by me on the day of the encounter. I reviewed the history and performed the sumner elements of the assessment. I formulated the planof care and confirmed this with the resident as noted below Mental Status Exam: Appearance: grossly normal Mental Status: mental status grossly normal Mood: dysthymic mood Affect: dysphoric affect Speech and Movement: speech and movement normal and speech clear Attitude: cooperative Thought Process: normal Thought Content: Reported auditory hallucinations, no homicidality, reported suicidality Insight: fair Judgment: fair Exam Physical Exam Vital Signs: Temp Pulse Resp BP Pulse Ox O2 Del Method 98 F 79 16 107/69 97 Room Air 07/10/23 07:30 07/10/23 07:30 07/10/23 07:30 07/10/23 07:30 07/10/23 07:30 07/10/23 07:30 Abnormal Involuntary Movement Dental Status Are dentures usually worn?: No Assessment/Plan Assessment/Plan (1) Bipolar disorder, unspecified: Code(s): F31.9 - Bipolar disorder, unspecified Status: Acute Plan Patient still reporting some hallucinations, delusions and suicidal thoughts Per [facility]ARS, patient's risk score is 670. She is prescribed clonazepam, pregabalin,dextroamphetamine-amphetamine, and Percocet. - dextroamphetamine-amphetamine 10mg filled 04/16/23 qt 120 for 30 days. - Pregabalin 100mg was last filled on 06/18/2023 qt.90 for 30 days. and on 06/06/23 qt.90 for 30 days. - Clonazepam 1mb was filled on 06/18/23 qt. 45 for 30 days and on 06/14/23 0.5mgqt5 for 2 says and 06/07/23 0.5mg qt. 30 for 15 days and 04/27/23 1mg qt.48 for 16 days. - Percocet 5-325 filled 06/06 qt 2 for 1 day. Current controlled medications regimen per OARS is problematic. Patient is on too many controlled medications prescribed by many providers. Gradually taper off Klonopin as a start to prevent withdrawl symptoms. Continue Depakote 1000 mg PO QHS Continue Cymbalta 30 mg twice a day Continue Klonopin as needed and methadone daily. Discussed risks of current med regimen include but not limited respiratory suppression. Continue Seroquel 150 mg at bedtime and continue Seroquel 50 mg PO Q 4 pm to help with the AH. Continue Adderall, OARRS reviewed. Should work with outpatient prescribed on simplifying med regimen and avoiding multiple controlled meds. Educated about multiple controlled substance medications and risk of overdose Continue to monitor mental status Encourage group participation and medication compliance Risk benefits alternatives explained Documented By: Claudio Dee MD 3 [id number] Signed By: <Electronically signed by Claudio Dee MD> 07/10/23 1521 <Electronically signed by MD MIMI Byers> 07/10/23 1052 [facility] Work Phone: 1(194) 623-262309-29-2023 Progress note Author Claudio case [facility] July 10, 2023 6:53am Note Date/Time July 10, 2023 6:51am [facility] [address] [place], [place] [id number] Psychiatry Progress Note Signed with Drake Patient: Lorna Deutsch MR#: [id number] : 1985 Acct:[id number] Age/Sex: 38 / F Adm Date: 3 Loc: 1S Room: [address] [place] [address] Type : ADM IN Attending Dr: Bobo Shields MD Copies to: ~ ADDENDUM1 Discussed with patient her current med regimen. She is currently on Klonopin, methadone and Adderall. She is open to tapering off Klonopin and therefore will reduce it to once daily PRN and taper it off on the weekend. Addendum Documented By: Claudio Dee MD 07/10/2353 Addendum Signed By: <Electronically signed by Claudio Dee MD> 07/10/2353 Date of Service: 07/10/2023 Subjective Subjective Narrative: Ms. Deutsch reported that she feels like her mood is still depressed but noted reduction of SI. She slept most of the day yesterday stating that she was feeling depressed. She reports ongoing hallucinations that can be commanding. She inquired about increasing the dose of Seroquel and I have informed her that she should give it time to work. Mental Status Exam: Appearance: grossly normal Mental Status: mental status grossly normal Mood: dysthymic mood Affect: dysphoric affect Speech and Movement: speech and movement normal and speech clear Attitude: cooperative Thought Process: normal Thought Content: Reported auditory hallucinations, no homicidality, reported suicidality Insight: fair Judgment: fair Exam Physical Exam Vital Signs: Temp Pulse Resp BP Pulse Ox O2 Del Method 98.2 F 70 16 122/77 98 Room Air 07/09/23 20:13 07/09/23 20:13 07/09/23 20:13 07/09/23 20:13 07/09/23 20:13 07/09/23 20:13 Abnormal Involuntary Movement Dental Status Are dentures usually worn?: No Assessment/Plan Assessment/Plan (1) Bipolar disorder, unspecified: Code(s): F31.9 - Bipolar disorder, unspecified Status: Acute Plan Patient still reporting some hallucinations, delusions and suicidal thoughts Continue Depakote 1000 mg PO QHS Continue Cymbalta 30 mg twice a day Continue Klonopin as needed and methadone daily. Discussed risks of current med regimen include but not limited respiratory suppression. Continue Seroquel 150 mg at bedtime and continue Seroquel 50 mg PO Q 4 pm to help with the AH. Continue Adderall, OARRS reviewed. Should work with outpatient prescribed on simplifying med regimen and avoiding multiple controlled meds. Educated about multiple controlled substance medications and risk of overdose Continue to monitor mental status Encourage group participation and medication compliance Risk benefits alternatives explained Documented By: Claudio Dee MD 3 0649 Signed By: <Electronically signed by Claudio Dee MD> 07/10/23 0651 [facility] Work Phone: 1(142) 362-150409-28-2023 Progress note Author Claudio case [facility] July 09, 2023 7:34am Note Date/Time July 09, 2023 7:31am [facility] [address] [place] [address] Psychiatry Progress Note Signed Patient: Lorna Deutsch MR#: [id number] : 1985 Acct:[id number] Age/Sex: 38 / F Adm Date: 3 Loc: Room: [address] [place] [address] Type : ADM IN Attending Dr: Bobo Shields MD Copies to: ~ Date of Service: 07/09/2023 Subjective Subjective Narrative: Ms. Deutsch reported that she feels like her mood is still depressed rating it ashigh. She continues to report that people are putting chips in her brain. She continues to have AH. She inquired about taking both Adderall at the same time. She does not feel safe to be discharged due to feeling suicidal. She wants to get off Methadone and requested decreasing the dose fo 140 mg yesterday. She tells me that she wants to continue tapering off Methadone. She is restless on exam which appears to be self exaggerated. Mental Status Exam: Appearance: grossly normal Mental Status: mental status grossly normal Mood: dysthymic mood Affect: dysphoric affect Speech and Movement: speech and movement normal and speech clear Attitude: cooperative Thought Process: normal Thought Content: Reported auditory hallucinations, no homicidality, reported suicidality Insight: fair Judgment: fair Exam Physical Exam Vital Signs: Temp Pulse Resp BP Pulse Ox O2 Del Method 97.9 F 69 16 116/71 98 Room Air 07/08/23 23:30 07/08/23 23:30 07/08/23 23:30 07/08/23 23:30 07/08/23 23:30 07/08/23 23:30 Abnormal Involuntary Movement Dental Status Are dentures usually worn?: No Assessment/Plan Assessment/Plan (1) Bipolar disorder, unspecified: Code(s): F31.9 - Bipolar disorder, unspecified Status: Acute Plan Patient still reporting some hallucinations, delusions and suicidal thoughts Continue Depakote 1000 mg PO QHS Continue Cymbalta 30 mg twice a day Continue Klonopin as needed and methadone daily. Discussed risks of current med regimen include but not limited respiratory suppression. Continue Seroquel 150 mg at bedtime and add Seroquel 50 mg PO Q 4 pm to help with the AH. Continue Adderall, OARRS reviewed. Should work with outpatient prescribed on simplifying med regimen and avoiding multiple controlled meds. Educated about multiple controlled substance medications and risk of overdose Continue to monitor mental status Encourage group participation and medication compliance Risk benefits alternatives explained Documented By: Claudio Dee MD 3 0731 Signed By: <Electronically signed by Claudio Dee MD> 07/09/23 0734 [facility] Work Phone: [phone]) 958-134009-27-2023 Progress note Author Claudio case [facility] July 08, 2023 7:03am Note Date/Time July 08, 2023 7:03am [facility] [address] [place] [address] Psychiatry Progress Note Signed Patient: Lorna Deutsch MR#: [id number] : 1985 Acct:[id number] Age/Sex: 38 / F Adm Date: 3 Loc: 1S Room: [address] [place] [address] Type : ADM IN Attending Dr: Bobo Shields MD Copies to: ~ Date of Service: 07/08/2023 Subjective Subjective Narrative: Ms. Deutsch reported that she feels like her mood is still depressed rating it ashigh. She continues to report that people are putting chips in her brain. She said Seroquel has been partially effective. She has intermittent SI and AH. She does not have a therapist and we discussed importance of outpatient therapist and psychiatrist. She does not feel safe going home. She does not want to do ECT. She claims that she has has commanding AH. She asked me to write outpatientscritps for her controlled medications which I have informed her that I am not able. Mental Status Exam: Appearance: grossly normal Mental Status: mental status grossly normal Mood: dysthymic mood Affect: dysphoric affect Speech and Movement: speech and movement normal and speech clear Attitude: cooperative Thought Process: normal Thought Content: Reported auditory hallucinations, no homicidality, reported suicidality Insight: fair Judgment: fair Exam Physical Exam Vital Signs: Temp Pulse Resp BP Pulse Ox O2 Del Method 98.0 F 74 16 108/70 97 Room Air 07/07/23 20:01 07/07/23 20:01 07/07/23 20:01 07/07/23 20:01 07/07/23 20:01 07/07/23 20:01 Abnormal Involuntary Movement Dental Status Are dentures usually worn?: No Assessment/Plan Assessment/Plan (1) Bipolar disorder, unspecified: Code(s): F31.9 - Bipolar disorder, unspecified Status: Acute Plan Patient still reporting some hallucinations, delusions and suicidal thoughts Most recent Depakote level is below therapeutic level. Depakote was increased to 1000 mg PO QHS Continue Cymbalta 30 mg twice a day Continue Klonopin as needed and methadone daily. Discussed risks of current med regimen include but not limited respiratory suppression. Continue Seroquel 150 mg at bedtime Continue Adderall, OARRS reviewed. Should work with outpatient prescribed on simplifying med regimen and avoiding multiple controlled meds. Educated about multiple controlled substance medications and risk of overdose Continue to monitor mental status Encourage group participation and medication compliance Risk benefits alternatives explained Documented By: Claudio Dee MD 3 0700 Signed By: <Electronically signed by Claudio Dee MD> 07/08/23 0703 [facility] Work Phone: [phone]) [phone] Progress note Author Claudio case [facility] July 07, 2023 7:09am Note Date/Time July 07, 2023 7:07am [facility] [address] [place] [address] Psychiatry Progress Note Signed Patient: Lorna Deutsch MR#: [id number] : 1985 Acct:[id number] Age/Sex: 38 / F Adm Date: 3 Loc: Room: [address] [place] [address] Type : ADM IN Attending Dr: Bobo Shields MD Copies to: ~ Date of Service: 07/07/2023 Subjective Subjective Narrative: Ms. Deutsch reported that she feels like her mood is still depressed rating it ashigh. She has intermittent SI and AH. She does not have a therapist and we discussed importance of outpatient therapist and psychiatrist. She said she is open to undergoing ECT treatment and we discussed about a potential referral to [facility] Mental Status Exam: Appearance: grossly normal Mental Status: mental status grossly normal Mood: dysthymic mood Affect: dysphoric affect Speech and Movement: speech and movement normal and speech clear Attitude: cooperative Thought Process: normal Thought Content: Reported auditory hallucinations, no homicidality, reported suicidality Insight: fair Judgment: fair Exam Physical Exam Vital Signs: Temp Pulse Resp BP Pulse Ox O2 Del Method 97.7 F 88 18 138/81 98 Room Air 07/06/23 21:35 07/06/23 21:35 07/06/23 21:35 07/06/23 21:35 07/06/23 21:35 07/06/23 21:35 Objective Labs Labs: Abnormal Labs 07/06/23 07:47 Valproic Acid 40.5 L Abnormal Involuntary Movement Dental Status Are dentures usually worn?: No Assessment/Plan Assessment/Plan (1) Bipolar disorder, unspecified: Code(s): F31.9 - Bipolar disorder, unspecified Status: Acute Plan Patient still reporting some hallucinations, delusions and suicidal thoughts Will send a referral to [facility] for ECT treatment Most recent Depakote level is below therapeutic level. Increase Depakote to 1000mg PO QHS Continue Depakote 750 mg at bedtime, Cymbalta 30 mg twice a day Continue Klonopin as needed and methadone daily. Discussed risks of current med regimen include but not limited respiratory suppression. Increase Seroquel 150 mg at bedtime Continue Adderall, OARRS reviewed. Educated about multiple controlled substance medications and risk of overdose Continue to monitor mental status Encourage group participation and medication compliance Risk benefits alternatives explained Documented By: Claudio Dee MD 3 0706 Signed By: <Electronically signed by Claudio Dee MD> 07/07/23 0709 [facility] Work Phone: 1(243) 347-125309-25-2023 Progress note Author Claudio case [facility] July 06, 2023 7:38am Note Date/Time July 06, 2023 7:37am [facility] [address] [place] [address] Psychiatry Progress Note Signed Patient: Lorna Deutsch MR#: [id number] : 1985 Acct:[id number] Age/Sex: 38 / F Adm Date: 3 Loc: Room: [address] [place] [address] Type : ADM IN Attending Dr: Bobo Shields MD Copies to: ~ Date of Service: 07/06/2023 Subjective Subjective Narrative: Ms. Deutsch reported that she feels like her mood is little bit better. Patient is well known to our service and inquired about increasing Adderall and Neurontin. She has been restless on exam but then calmed down when I told her that I will not be increasing the dose of any meds especially controlled meds. She said she is feeling paranoid and has AH. Staff reported that she has been med seeking. She reported that she still experiencing some hallucinations and feels like someone put a chip in her body and is talking to her. She reported intermittent SI. Mental Status Exam: Appearance: grossly normal Mental Status: mental status grossly normal Mood: dysthymic mood Affect: dysphoric affect Speech and Movement: speech and movement normal and speech clear Attitude: cooperative Thought Process: normal Thought Content: Reported auditory hallucinations, no homicidality, reported suicidality Insight: fair Judgment: fair Exam Physical Exam Vital Signs: Temp Pulse Resp BP Pulse Ox O2 Del Method 98.2 F 82 16 100/68 98 Room Air 07/05/23 18:59 07/05/23 18:59 07/05/23 18:59 07/05/23 18:59 07/05/23 18:59 07/05/23 18:59 Abnormal Involuntary Movement Dental Status Are dentures usually worn?: No Assessment/Plan Assessment/Plan (1) Bipolar disorder, unspecified: Code(s): F31.9 - Bipolar disorder, unspecified Status: Acute Plan Patient still reporting some hallucinations, delusions and suicidal thoughts Obtain Depakote leve in the am Continue Depakote 750 mg at bedtime, Cymbalta 30 mg twice a day Continue Klonopin as needed and methadone daily. Discussed risks of current med regimen include but not limited respiratory suppression. Increase Seroquel 150 mg at bedtime Continue Adderall, OARRS reviewed. Educated about multiple controlled substance medications and risk of overdose Continue to monitor mental status Encourage group participation and medication compliance Risk benefits alternatives explained Documented By: Claudio Dee MD 3 [id number] Signed By: <Electronically signed by Claudio Dee MD> 07/06/23 0738 [facility] Work Phone: [phone]) [phone] Progress note Author Bobo Shields [facility] July 05, 2023 11:00am Note Date/Time July 05, 2023 11:00am [facility] [address] [place] [address] Psychiatry Progress Note Signed Patient: Lorna Deutsch MR#: [id number] : 1985 Acct:[id number] Age/Sex: 38 / F Adm Date: 3 Loc: Room: [address] [place] [address] Type : ADM IN Attending Dr: Bobo Shields MD Copies to: ~ Date of Service: 07/05/2023 Subjective Subjective Narrative: Ms. Deutsch reported that she feels like her mood is little bit better. She stated that the increase of Seroquel needs to be increased more to help with herhallucinations. She reported that she still experiencing some hallucinations and feels like someone put a chip in her body and is talking to her. She reported that she still has some suicidal thoughts and some depression. Mental Status Exam: Appearance: grossly normal Mental Status: mental status grossly normal Mood: dysthymic mood Affect: dysphoric affect Speech and Movement: speech and movement normal and speech clear Attitude: cooperative Thought Process: normal Thought Content: Reported auditory hallucinations, no homicidality, reported suicidality Insight: fair Judgment: fair Exam Physical Exam Vital Signs: Temp Pulse Resp BP Pulse Ox O2 Del Method 98.3 F 69 16 106/66 96 Room Air 07/04/23 20:24 07/04/23 20:24 07/04/23 20:24 07/04/23 20:24 07/04/23 20:24 07/04/23 20:24 Abnormal Involuntary Movement Dental Status Are dentures usually worn?: No Assessment/Plan Assessment/Plan (1) Bipolar disorder, unspecified: Code(s): F31.9 - Bipolar disorder, unspecified Status: Acute Plan Patient still reporting some hallucinations, delusions and suicidal thoughts Continue Depakote 750 mg at bedtime, Cymbalta 30 mg twice a day Continue Klonopin as needed and methadone daily Increase Seroquel 150 mg at bedtime Continue Adderall, OARRS reviewed Educated about multiple controlled substance medications and risk of overdose Continue to monitor mental status Encourage group participation and medication compliance Risk benefits alternatives explained Documented By: Bobo Shields MD 07/05/23 1059 Signed By: <Electronically signed by Bobo Shields MD> 07/05/23 1100 [facility] Work Phone: 1([phone]) [phone] Progress note Author Bobo Shields [facility] July 04, 2023 10:54am Note Date/Time July 04, 2023 10:54am [facility] [address] [place] [address] Psychiatry Progress Note Signed Patient: Lorna Deutsch MR#: [id number] : 1985 Acct:[id number] Age/Sex: 38 / F Adm Date: 3 Loc: Room: [address] [place] [address] Type : ADM IN Attending Dr: Bobo Shields MD Copies to: ~ Date of Service: 07/04/2023 Subjective Subjective Narrative: Ms. Deutsch reported that she is still depressed. She stated that she still experiences auditory hallucinations telling her bad things and that she is worthless. She felt that the Seroquel was more helpful than Haldol to help withher sleep overnight. She still reported some suicidal thoughts here and there. She does have some questions about her medications and stated that she did not take the Effexor this morning and wants to see if she can switch to a different antidepressant. Mental Status Exam: Appearance: grossly normal Mental Status: mental status grossly normal Mood: dysthymic mood Affect: dysphoric affect Speech and Movement: speech and movement normal and speech clear Attitude: cooperative Thought Process: normal Thought Content: Reported auditory hallucinations, no homicidality, reported suicidality Insight: fair Judgment: fair Exam Physical Exam Vital Signs: Temp Pulse Resp BP Pulse Ox O2 Del Method 98.2 F 66 16 105/60 95 Room Air 07/04/23 07:30 07/04/23 07:30 07/04/23 07:30 07/04/23 07:30 07/04/23 07:30 07/04/23 09:00 Abnormal Involuntary Movement Dental Status Are dentures usually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 167.9 cm (5' 6.1 ) Wt 69.9 kg (154 lb) LMP 03/14/2023 (Exact Date) SpO2 98% BMI 24.78 kg/m GENERAL APPEARANCE: Well appearing, alert, in no acute distress, well-hydrated, well nourished. SKIN: Skin color, texture, turgor normal, no suspicious rashes or lesions HEAD: No significant findings. EYES: PERRLA, EOMI EARS: External ears normal, canals clear NOSE/SINUSES: Nares normal. Septum midline. OROPHARYNX: Lips, mucosa, and tongue normal, teeth and gums normal, oropharynx normal BACK: Back symmetric, Normal curvature, ROM normal LUNGS: Normal breath sounds, Clear to auscultation, No wheezes, No crackles HEART:Normal PMI, Regular rate and rhythm, Normal heart sounds, S1 and S2, and No murmurs. ABDOMEN: Soft, Non-tender, No palpable masses, Normal bowel sounds, and No hepatosplenomegaly. EXTREMITIES:Normal, No deformities, No skin discoloration, No edema, and Normal pulses bilaterally. NEURO: Awake, alert and oriented x 3, Cranial nerves II-XII grossly intact, Normal gait, and No involuntary motions. ASSESSMENT/PLAN: (Z00.00) Wellness examination `Discussed healthy lifestyle choices by diet and exercise. `Reviewed health maintenance with patient. `Discussed importance of routine dental and vision exams. 2. (Z13.1) Screening for diabetes mellitus `COMP METABOLIC PANEL, HGB A1C 3. (Z13.220) Screening for lipid disorders `LIPID PANEL BASIC 4. (Z12.4) Screening for cervical cancer `CONSULT TO REFERENCE AND INSTRUCTION LIBRARIAN 5. (Z87.42) History of abnormal cervical Pap smear `CONSULT TO REFERENCE AND INSTRUCTION LIBRARIAN 6. (F11.11) History of heroin abuse (HCC) `Stable, on methodone. 7. (F90.9) Attention deficit hyperactivity disorder (ADHD), unspecified ADHD type `CONSULT TO PSYCHIATRY `Rx for 1 month supply: dextroamphetamine-amphetamine (ADDERALL) 10 mg tablet, 8. (F31.9) Bipolar depression (HCC) `Stable. `DEPRESSION SCREENING/ASSESSMENT `CONSULT TO PSYCHIATRY 9. (F20.0) Paranoid schizophrenia (HCC) `Stable. `DEPRESSION SCREENING/ASSESSMENT `CONSULT TO PSYCHIATRY 10. (M54.50, G89.29) Chronic midline low back pain without sciatica `CONSULT TO PAIN MGT `Rx for 1 month supply: gabapentin (NEURONTIN) 800 mg tablet. Follow up in 1 year for annual visit, sooner as needed. Mireille Cheatham APRN.WAITER/WAITRESS [employer] documented in this encounterTrihealth [facility]04-06-2023 Progress note Author Bobo Shields [facility] January 15, 2023 12:20pm Note Date/Time January 15, 2023 12:2 0pm [facility] [address] [place] [address] Psychiatry Progress Note Signed Patient: Lorna Deutsch MR#: [id number] : 1985 Acct:[id number] Age/Sex: 38 / F Adm Date: 3 Loc: Room: [address] [place] [address] Type : ADM IN Attending Dr: Bobo Shields MD Copies to: ~ Date of Service: 01/15/2023 Subjective Subjective Narrative: Ms. Deutsch reported that she is doing a bit better. She reported that she stillhas some anxiety and difficulty staying still. She denied any suicidal thoughtsor homicidal thoughts. Mental Status Exam: Appearance: grossly normal Mental Status: mental status grossly normal Mood: Improving mood Affect: Improving affect Speech and Movement: speech and movement normal and speech clear Attitude: cooperative Thought Process: normal Thought Content: Denied hallucinations, no homicidality, no suicidality Insight: fair Judgment: fair Exam Physical Exam Vital Signs: Temp Pulse Resp BP Pulse Ox O2 Del Method 98.2 F 84 16 106/73 100 Room Air 01/15/23 07:30 01/15/23 07:30 01/15/23 07:30 01/15/23 07:30 01/15/23 07:30 01/15/23 09:00 Objective Labs Labs: Abnormal Labs 01/15/23 05:56 Cholesterol 220 H LDL Cholesterol, Calc 150 H 25-OH Vitamin D Total 15.0 L Abnormal Involuntary Movement Dental Status Are dentures usually worn?: No Assessment/Plan Assessment/Plan (1) Bipolar 1 disorder, depressed: Code(s): F31.9 - Bipolar disorder, unspecified Status: Acute (2) Opioid use disorder: Code(s): F11.99 - Opioid use, unspecified with unspecified opioid-induced disorder Status: Acute Plan Patient doing better at this time, anticipate discharge tomorrow Increase Fetzima 40 mg to help with depression and anxiety Continue Seroquel 300 mg at bedtime and daytime dose of 25 mg twice a day Continue Depakote 500 the morning and 1000 at bedtime Continue gabapentin to 600 mg 4 times a day Continue Adderall 20 mg twice a day Continue methadone 120 mg daily Continue to monitor mental status Encourage group participation and medication compliance Risk benefits alternatives explained Documented By: Bobo Shields MD 01/15/23 1219 Signed By: <Electronically signed by Bobo Shields MD> 01/15/23 1220 [facility] Work Phone: [phone]) 679-418704-05-2023 Progress note Author Bobo Shields [facility] January 14, 2023 12:21pm Note Date/Time January 14, 2023 12:2 1pm [facility] [address] [place], [place] [id number] Psychiatry Progress Note Signed Patient: Lorna Deutsch MR#: [id number] : 1985 Acct:[id number] Age/Sex: 38 / F Adm Date: 3 Loc: Room: 4O2145-3 Type : ADM IN Attending Dr: Bobo Shields MD Copies to: ~ Date of Service: 01/14/2023 Subjective Subjective Narrative: Ms. Deutsch reported that she is feeling sleepy during the day and had difficultyfalling to sleep at night. She denied any visual hallucinations at this time. She is still reported having depression and anxiety. She denied any current suicidal thoughts at this time. Mental Status Exam: Appearance: grossly normal Mental Status: mental status grossly normal Mood: dysthymic and anxious mood Affect: dysphoric affect Speech and Movement: speech and movement normal and speech clear Attitude: cooperative Thought Process: normal Thought Content: Denied hallucinations, no homicidality, improving suicidality Insight: fair Judgment: fair Exam Physical Exam Vital Signs: Temp Pulse Resp BP Pulse Ox O2 Del Method 98.1 F 86 16 100/65 99 Room Air 01/14/23 07:30 01/14/23 07:30 01/14/23 07:30 01/14/23 07:30 01/14/23 07:30 01/14/23 09:00 Abnormal Involuntary Movement Dental Status Are dentures usually worn?: No Assessment/Plan Assessment/Plan (1) Bipolar 1 disorder, depressed: Code(s): F31.9 - Bipolar disorder, unspecified Status: Acute (2) Opioid use disorder: Code(s): F11.99 - Opioid use, unspecified with unspecified opioid-induced disorder Status: Acute Plan Patient still reported difficulty with her anxiety and depression We will add Fetzima 20 mg to help with depression and anxiety Adjust Seroquel 300 mg at bedtime and daytime dose of 25 mg twice a day Continue Depakote 500 the morning and 1000 at bedtime We will adjust gabapentin to 600 mg 4 times a day Continue Adderall 20 mg twice a day Continue methadone 120 mg daily Continue to monitor mental status Encourage group participation and medication compliance Risk benefits alternatives explained Documented By: Bobo Shields MD 01/14/23 1219 Signed By: <Electronically signed by Bobo Shields MD> 01/14/23 1221 [facility] Work Phone: 1(102) 982-588004-04-2023 Progress note Author Bobo Shields [facility] January 13, 2023 2:21pm Note Date/Time January 13, 2023 12:1 9pm [facility] [address] [place] [address] Psychiatry Progress Note Signed Patient: Lorna Deutsch MR#: [id number] : 1985 Acct:[id number] Age/Sex: 38 / F Adm Date: 3 Loc: 1S Room: [address] [place] [address] Type : ADM IN Attending Dr: Bobo Shields MD Copies to: ~ Date of Service: 01/13/2023 Subjective Subjective Narrative: Ms. Deutsch reported that she is not feeling that great this morning. She reported that she feels better after receiving her methadone. She stated that she wants some adjustments with her medications including increased dose of Seroquel. She also reported that she was on an increased dose of Adderall but this was reviewed and was a completely new provider. Mental Status Exam: Appearance: grossly normal Mental Status: mental status grossly normal Mood: dysthymic mood Affect: dysphoric affect Speech and Movement: speech and movement normal and speech clear Attitude: cooperative Thought Process: normal Thought Content: Denied hallucinations, no homicidality, reported suicidality Insight: fair Judgment: fair Exam Physical Exam Vital Signs: Temp Pulse Resp BP Pulse Ox O2 Del Method 97.7 F 82 20 109/73 100 Room Air 01/13/23 07:30 01/13/23 07:30 01/13/23 07:30 01/13/23 07:30 01/13/23 07:30 01/13/23 09:00 Abnormal Involuntary Movement Dental Status Are dentures usually worn?: No Assessment/Plan Assessment/Plan (1) Bipolar 1 disorder, depressed: Code(s): F31.9 - Bipolar disorder, unspecified Status: Acute (2) Opioid use disorder: Code(s): F11.99 - Opioid use, unspecified with unspecified opioid-induced disorder Status: Acute Plan Patient continues to report depression and anxiety Continue Seroquel 200 mg at bedtime and increase daytime dose to 50 mg twice a day Continue Depakote 500 the morning and 1000 at bedtime Continue gabapentin 400 mg 5 times a day and Adderall 20 mg twice a day Continue methadone 120 mg daily Continue to monitor mental status Encourage group participation and medication compliance Risk benefits alternatives explained Documented By: Bobo Shields MD 01/13/23 1217 Signed By: <Electronically signed by Bobo Shields MD> 01/13/23 1421 [facility] Work Phone: 1(389) 937-794204-03-2023 History and physical note Author Bobo Shields [facility] January 12, 2023 3:37pm Note Date/Time January 12, 2023 3:33 pm [facility] [address] [place] [address] Psychiatry H&P Signed Patient: Lorna Deutsch MR#: [id number] : 1985 Acct:[id number] Age/Sex: 38 / F Adm Date: 3 Loc: Room: [address] [place] [address] Type: ADM IN Attending Dr: Bobo Shields MD Copies to: MD Cris Murcia APRN, WAITER/[employer]~ Date of Service: 01/12/2023 HPI History of Present Illness History of present illness: Ms. Deutsch is a 38 year old female who presented due to concern for depression and suicidal ideation. Upon assessment, patient reported that she had stopped her medication for roughly 5 days. She reported that symptoms have been worsening and she has beenmore labile and having arguments with her boyfriend. She stated that she also relapsed and was using opiates over the weekend. She reported that her suicidalideation has been increasing and wanted to overdose on her medications. She reported that she was taking Seroquel and Rexulti in the past. She also mentioned about taking Klonopin. She reported that she sleeps well when she takes her Seroquel at bedtime but feels like the nighttime dose is too high. Past psych history: History of bipolar disorder Past hospitalizations: History past psychiatric hospitalizations Past suicide attempts: Reported prior suicide attempts Family psych history: Reported family history in her brother, mom and sister Previous medications: Rexulti, Seroquel, Klonopin Alcohol and drug use: Reported opiate addiction and currently on methadone Living: With partner Employment: Unemployed Review of symptoms: Constitutional: Denies chills and Denies fever(s) Eyes: Denies change in vision ENT: Denies abnormal hearing Cardiovascular: Denies chest pain Respiratory: Denies chest congestion and Denies cough Gastrointestinal: Denies change in bowel habits Genitourinary: Denies dysuria Musculoskeletal: Denies atrophy and Denies myalgias Integumentary/Breasts: Denies dry skin Neurologic: Denies abnormal gait and Denies abnormal movements Psychiatric: Reports depression and suicidal ideation Physical exam: Const: cooperative Nutritional Appearance: average body habitus Orientation: alert, awake and oriented x3 HEENT: Head normal to inspection, hearing grossly normal bilaterally, external nose normal, face symmetric Eyes: appearance normal, both eyes and all related structures, sclerae normal Neck: normal visual inspection and full ROM Resp: normal respiratory effort, able to speak in complete sentences and symmetric chest movement Cardio: regular rate GI: normal to inspection and non-distended : deferred Skin: no rashes or lesions noted Neuro: CNI: Normal olfaction CNI: normal olfaction CNII: Visual knight intact, CNIII,IV,: EOM intact, no nystagmus. Pupils equal, round, reactive to light and accommodation, CNV: Sensation intact to light touch, CNVII: Raises eyebrows, smile/frown, puff out cheeks symmetrically, CNVIII: Hearing intact bilaterally, CNIX,X: Voice normal, soft palate elevation normal, symmetrical, CNXI: Shoulder shrug strong, equal bilaterally, CNXII: Tongue protrusion midline, movement symmetrical. Extrem: normal to inspection and full ROM Mental Status Exam: Appearance: grossly normal Mental Status: mental status grossly normal Mood: dysthymic mood Affect: dysphoric affect Speech and Movement: speech and movement normal and speech clear Attitude: cooperative Thought Process: normal Thought Content: Denied hallucinations, no homicidality, reported suicidality Insight: fair Judgment: fair PMFSH Vaccinated for COVID-19?: No Medical History (Updated 01/12/23 @ 15:24 by Carol Moses DO) Anxiety Asthma Back fracture Depressed Heroin abuse SOBER X4 YEARS, RELAPSE 07/15/2020 USED FENTANYL X1 Pre-diabetes Family History Grandparent DM2 (diabetes mellitus, type 2) Social History Smoking Status: Current every day smoker Tobacco Type: cigarettes Substance Use Type: Alcohol, Opiates and Methamphetamine Substance Abuse Comment: 2 DAYS AGO Meds Medications and Allergies Allergies No Known Allergies Allergy (Verified 01/12/23 07:59) Home Medications albuterol sulfate 90 mcg/actuation aerosol inhaler 2 puff inhalation Q4H PRN Shortness Of Breath 04/08/19 [History Confirmed 01/12/23] divalproex 500 mg tablet,extended release 24 hr 1,000 mg PO QHS 15 days #30 tabs02/05/21 [Rx Confirmed 01/12/23] hydroxyzine pamoate 50 mg capsule 50 mg PO Q6H PRN Anxiety 15 days #15 caps 02/05/21 [Rx Confirmed 01/12/23] quetiapine 200 mg tablet 400 mg PO QHS 15 days #30 tabs 03/24/21 [Rx Confirmed 01/12/23] dextroamphetamine-amphetamine 20 mg tablet 20 mg PO BID 11/20/22 [History Confirmed 01/12/23] gabapentin 800 mg tablet 400 mg PO DIRECTED 11/20/22 [History Confirmed 01/12/23] methadone 40 mg soluble tablet 120 mg PO DAILY 11/20/22 [History Confirmed 01/12/23] divalproex 500 mg tablet,delayed release 500 mg PO DAILY 01/12/23 [History Confirmed 01/12/23] Exam Physical Exam Vital Signs: Temp Pulse Resp BP Pulse Ox O2 Del Method 97.3 F L 106 H 18 119/72 98 Room Air 01/12/23 07:58 01/12/23 11:28 01/12/23 11:28 01/12/23 11:28 01/12/23 11:28 01/12/23 11:28 Results Labs 01/12/23 08:11 01/12/23 08:11 Psychiatry Labs: 01/12/23 01/12/23 01/12/23 08:11 08:11 09:05 RBC 5.19 H Hgb 16.1 H Hct 47.7 H MCV 91.9 MCH 30.9 MCHC 33.7 RDW 14.2 Plt Count 275 MPV 8.7 Sodium 139 Potassium 3.0 L Chloride 103 Carbon Dioxide 25.9 Anion Gap 13.1 BUN 14 Creatinine 0.65 Calcium 10.7 H Total Bilirubin 0.6 AST 13 ALT 10 Alkaline Phosphatase 50 Total Protein 9.2 H Albumin 5.3 Urine Color Yellow Urine Appearance Cloudy A Urine pH 6.0 Ur Specific [place] 1.020 Urine Protein Negative Urine Glucose (UA) Normal Urine Ketones Trace H Urine Occult Blood Trace H Urine Nitrite Positive H Ur Leukocyte Esterase 2+ H Urine RBC 3-4 Urine WBC 10-19 H Abnormal Involuntary Movement Dental Status Are dentures usually worn?: No Assessment/Plan (1) Bipolar 1 disorder, depressed: Code(s): F31.9 - Bipolar disorder, unspecified Status: Acute (2) Opioid use disorder: Code(s): F11.99 - Opioid use, unspecified with unspecified opioid-induced disorder Status: Acute Plan Patient presenting due to concern for depression and suicidal ideation. She hasbeen off medications for roughly 5 days Will restart Seroquel 200 mg at bedtime and 25 mg daily Restart Depakote 500 the morning and 1000 at bedtime Restart gabapentin 400 mg 5 times a day and Adderall 20 mg twice a day Restart methadone 120 mg daily Continue to monitor mental status Encourage group participation and medication compliance Risk benefits alternatives explained Documented By: Bobo Shields MD 01/12/23 1528 Signed By: <Electronically signed by Bobo Shields MD> 01/12/23 1537 [facility] Work Phone: 1(724) 923-360401-06-2023 Hospital Discharge instructions Follow Up Care 10/17/2022 14:45:23 With:Cris PENA CNP Address: [address] [place] [id number]- When:Within 3 Month(s) [facility] 12-30-2022 Hospital Discharge instructions Follow Up Care 10/10/2022 09:47:38 With:Cris PENA CNP Address: [address] [place] [phone]- When: only if needed [facility] 12-22-2022 Hospital Discharge instructions Patient Education 10/02/2022 17:55:10 Budget-Friendly Healthy Eating Budget-Friendly Healthy Eating There are many ways to save money at the grocery store and continue to eat healthy. You can be successful if you: Plan meals according to your budget. Make a grocery list and only purchase food according to your grocery list. Prepare food yourself. What are tips for following this plan? Reading food labels Compare food labels between brand name foods and the store brand. Often the nutritional value is the same, but the store brand is lower cost. Look for products that do not have added sugar, fat, or salt (sodium). These often cost the same but are healthier for you. Products may be labeled as: ?Sugar-free. ?Nonfat. ?Low-fat. ?Sodium-free. ?Low-sodium. Look for lean ground beef labeled as at least 92% lean and 8% fat. Shopping Buy only the items on your grocery list and go only to the areas of the store that have the items on your list. Use coupons only for foods and brands you normally buy. Avoid buying items you wouldn't normally buy simply because they are on sale. Check online and in newspapers for weekly deals. Buy healthy items from the bulk bins when available, such as herbs, spices, flour, pasta, nuts, anddried fruit. Buy fruits and vegetables that are in season. Prices are usually lower on in- season produce. Look at the unit hernandez on the hernandez tag. Use it to compare different brands and sizes to find out which item is the best deal. Choose healthy items that are often low-cost, such as carrots, potatoes, apples, bananas, and oranges. Dried or canned beans are a low-cost protein source. Buy in bulk and freeze extra food. Items you can buy in bulk include meats, fish, poultry, frozen fruits, and frozen vegetables. Avoid buying cundm-st-tgx foods, such as pre-cut fruits and vegetables and pre-made salads. If possible, shop around to discover where you can find the best prices. Consider other retailers such as [employer] stores, larger wholesale stores, local fruit and vegetable [employer], and [employer] markets. Do not shop when you are hungry. If you shop while hungry, it may be hard to stick to your list andbudget. Resist impulse buying. Use your grocery list as your official plan for the week. Buy a variety of vegetables and fruits by purchasing fresh, frozen, and canned items. Look at the top and bottom shelves for deals. Foods at eye level (eye level of an adult or child) are usually more expensive. Be efficient with your time when shopping. The more time you spend at the store, the more money youare likely to spend. To save money when choosing more expensive foods like meats and dairy: ?Choose cheaper cuts of meat, such as bone-in chicken thighs and drumsticks instead of skinless andboneless chicken. When you are ready to prepare the chicken, you can remove the skin yourself to make it healthier. ?Choose lean meats like chicken or turkey instead of beef. ?Choose canned seafood, such as tuna, salmon, or sardines. ?Buy eggs as a low-cost source of protein. ?Buy dried beans and peas, such as lentils, split peas, or kidney beans instead of meats. Dried beans and peas are a good alternative source of protein. ?Buy the larger tubs of yogurt instead of individual-sized containers. Choose water instead of sodas and other sweetened beverages. Avoid buying chips, cookies, and other junk food. These items are usually expensive and not healthy. Cooking Make extra food and freeze the extras in meal-sized containers or in individual portions for fast meals and snacks. Pre-cook on days when you have extra time to prepare meals in advance. You can keep these meals in the fridge or freezer and reheat for a quick meal. When you come home from the grocery store, wash, peel, and cut fruits and vegetables so they are ready to use and eat. This will help reduce food waste. Meal planning Do not eat out or get fast food. Prepare food at home. Make a grocery list and make sure to bring it with you to the store. If you have a smart phone, youcould use your phone to create your shopping list. Plan meals and snacks according to a grocery list and budget you create. Use leftovers in your meal plan for the week. Look for recipes where you can cook once and make enough food for two meals. Include budget-friendly meals like stews, casseroles, and stir-antoine dishes. Try some meatless meals or try no cook meals like salads. Make sure that half your plate is filled with fruits or vegetables. Choose from fresh, frozen, or canned fruits and vegetables. If eating canned, remember to rinse them before eating. This will remove any excess salt added for packaging. Summary Eating healthy on a budget is possible if you plan your meals according to your budget, purchase according to your budget and grocery list, and prepare food yourself. Tips for buying more food on a limited budget include buying generic brands, using coupons only forfoods you normally buy, and buying healthy items from the bulk bins when available. Tips for buying cheaper food to replace expensive food include choosing cheaper, lean cuts of meat,and buying dried beans and peas. This information is not intended to replace advice given to you by your health care provider. Make sure you discuss any questions you have with your health care provider. Document Released: 06/01/2015 Document Revised: 09/29/2018 Document Reviewed: 09/29/2018 [employer] Patient Education 2020 [employer]. 10/02/2022 17:55:09 Tobacco Use Disorder Tobacco Use Disorder Tobacco use disorder (TUD) occurs when a person craves, seeks, and uses tobacco, regardless of the consequences. This disorder can cause problems with mental and physical health. It can affect your ability to have healthy relationships, and it can keep you from meeting your responsibilities at work, home, or school. Tobacco may be: Smoked as a cigarette or cigar. Inhaled using e-cigarettes. Smoked in a pipe or hookah. Chewed as smokeless tobacco. Inhaled into the nostrils as snuff. Tobacco products contain a dangerous chemical called nicotine, which is very addictive. Nicotine triggers hormones that make the body feel stimulated and works on areas of the brain that make you feel good. These effects can make it hard for people to quit nicotine. Tobacco contains many other unsafe chemicals that can damage almost every organ in the body. Smoking tobacco also puts others in danger due to fire risk and possible health problems caused by breathing in secondhand smoke. What are the signs or symptoms? Symptoms of TUD may include: Being unable to slow down or stop your tobacco use. Spending an abnormal amount of time getting or using tobacco. Craving tobacco. Cravings may last for up to 6 months after quitting. Tobacco use that: ?Interferes with your work, school, or home life. ?Interferes with your personal and social relationships. ?Makes you give up activities that you once enjoyed or found important. Using tobacco even though you know that it is: ?Dangerous or bad for your health or someone else's health. ?Causing problems in your life. Needing more and more of the substance to get the same effect (developing tolerance). Experiencing unpleasant symptoms if you do not use the substance (withdrawal). Withdrawal symptoms may include: ?Depressed, anxious, or irritable mood. ?Difficulty concentrating. ?Increased appetite. ?Restlessness or trouble sleeping. Using the substance to avoid withdrawal. How is this diagnosed? This condition may be diagnosed based on: Your current and past tobacco use. Your health care provider may ask questions about how your tobacco use affects your life. A physical exam. You may be diagnosed with TUD if you have at least two symptoms within a 12- month period. How is this treated? This condition is treated by stopping tobacco use. Many people are unable to quit on their own and need help. Treatment may include: Nicotine replacement therapy (NRT). NRT provides nicotine without the other harmful chemicals in tobacco. NRT gradually lowers the dosage of nicotine in the body and reduces withdrawal symptoms. NRT is available as: ?Dhxb-rtp-ywqxrif gums, lozenges, and skin patches. ?Prescription mouth inhalers and nasal sprays. Medicine that acts on the brain to reduce cravings and withdrawal symptoms. A type of talk therapy that examines your triggers for tobacco use, how to avoid them, and how to cope with cravings (behavioral therapy). Hypnosis. This may help with withdrawal symptoms. Joining a support group for others coping with TUD. The best treatment for TUD is usually a combination of medicine, talk therapy, and support groups. Recovery can be a long process. Many people start using tobacco again after stopping (relapse). If you relapse, it does not mean that treatment will not work. Follow these instructions at home: Lifestyle Do not use any products that contain nicotine or tobacco, such as cigarettes and e-cigarettes. Avoid things that trigger tobacco use as much as you can. Triggers include people and situations that usually cause you to use tobacco. Avoid drinks that contain caffeine, including coffee. These may worsen some withdrawal symptoms. Find ways to manage stress. Wanting to smoke may cause stress, and stress can make you want to smoke. Relaxation techniques such as deep breathing, meditation, and yoga may help. Attend support groups as needed. These groups are an important part of long-term recovery for many people. General instructions Take dueg-baf-caunzjw and prescription medicines only as told by your health care provider. Check with your health care provider before taking any new prescription or pgkl-emc-eeqozjw medicines. Decide on a friend, family member, or smoking quit-line (such as 0-025-TGKM-NOW in the [place] that you can call or text when you feel the urge to smoke or when you need help coping with cravings. Keep all follow-up visits as told by your health care provider and therapist. This is important. Contact a health care provider if: You are not able to take your medicines as prescribed. Your symptoms get worse, even with treatment. Summary Tobacco use disorder (TUD) occurs when a person craves, seeks, and uses tobacco regardless of the consequences. This condition may be diagnosed based on your current and past tobacco use and a physical exam. Many people are unable to quit on their own and need help. Recovery can be a long process. The most effective treatment for TUD is usually a combination of medicine, talk therapy, and support groups. This information is not intended to replace advice given to you by your health care provider. Make sure you discuss any questions you have with your health care provider. Document Released: 06/03/2005 Document Revised: 09/15/2018 Document Reviewed: 09/15/2018 [employer] Patient Education 2020 [employer]. 10/02/2022 17:55:05 Attention Deficit Hyperactivity Disorder, Adult Attention Deficit Hyperactivity Disorder, Adult Attention deficit hyperactivity disorder (ADHD) is a mental health disorder that starts during childhood (neurodevelopmental disorder). For many people with ADHD, the disorder continues into the adult years. Treatment can help you manage your symptoms. What are the causes? The exact cause of ADHD is not known. Most experts believe genetics and environmental factors contribute to ADHD. What increases the risk? The following factors may make you more likely to develop this condition: Having a family history of ADHD. Being male. Being born to a mother who smoked or drank alcohol during . Being exposed to lead or other toxins in the womb or early in life. Being born before 37 weeks of (prematurely) or at a low weight. Having experienced a brain injury. What are the signs or symptoms? Symptoms of this condition depend on the type of ADHD. The two main types are inattentive and hyperactive-impulsive. Some people may have symptoms of both types. Symptoms of the inattentive type include: Difficulty paying attention. Making careless mistakes. Not following instructions. Being disorganized. Avoiding tasks that require time and attention. Losing and forgetting things. Being easily distracted. Symptoms of the hyperactive-impulsive type include: Restlessness. Talking too much. Interrupting. Difficulty with: ?Sitting still. ?Feeling motivated. ?Relaxing. ?Waiting in line or waiting for a turn. In adults, this condition may lead to certain problems, such as: Keeping jobs. Performing tasks at work. Having stable relationships. Being on time or keeping to a schedule. How is this diagnosed? This condition is diagnosed based on your current symptoms and your history of symptoms. The diagnosis can be made by a health care provider such as a primary care provider or a mental health care services manager. Your health care provider may use a symptom checklist or a behavior rating scale to evaluate your symptoms. He or she may also want to talk with people who have observed your behaviors throughout your life. How is this treated? This condition can be treated with medicines and behavior therapy. Medicines may be the best optionto reduce impulsive behaviors and improve attention. Your health care provider may recommend: Stimulant medicines. These are the most common medicines used for adult ADHD. They affect certain chemicals in the brain (neurotransmitters) and improve your ability to control your symptoms. A non-stimulant medicine for adult ADHD (atomoxetine). This medicine increases a neurotransmitter called norepinephrine. It may take weeks to months to see effects from this medicine. Counseling and behavioral management are also important for treating ADHD. Counseling is often usedalong with medicine. Your health care provider may suggest: Cognitive behavioral therapy (CBT). This type of therapy teaches you to replace negative thoughts and actions with positive thoughts and actions. When used as part of ADHD treatment, this therapy mayalso include: ?Coping strategies for organization, time management, impulse control, and stress reduction. ?Mindfulness and meditation training. Behavioral management. You may work with a ice hockey coach who is specially trained to help people with ADHD manage and organize activities and function more effectively. Follow these instructions at home: Medicines Take piaz-jfd-pdrelvo and prescription medicines only as told by your health care provider. Talk with your health care provider about the possible side effects of your medicines and how to manage them. Lifestyle Do not use drugs. Do not drink alcohol if: ?Your health care provider tells you not to drink. ?You are , may be , or are planning to become . If you drink alcohol: ?Limit how much you use to: ?0 1 drink a day for women. ?0 2 drinks a day for men. ?Be aware of how much alcohol is in your drink. In the [place] one drink equals one 12 oz bottle of beer (355 mL), one 5 oz glass of wine (148 mL), or one 1 oz glass of hard liquor (44 mL). Get enough sleep. Eat a healthy diet. Exercise regularly. Exercise can help to reduce stress and anxiety. General instructions Learn as much as you can about adult ADHD, and work closely with your health care providers to findthe treatments that work best for you. Follow the same schedule each day. Use reminder devices like notes, calendars, and phone apps to stay on time and organized. Keep all follow-up visits as told by your health care provider and therapist. This is important. Where to find more information A health care provider may be able to recommend resources that are available online or over the phone. You could start with: Attention Deficit Disorder Association (ADDA): www.add.org National [place] of Mental Health (NIM): www.nimh.nih.gov Contact a health care provider if: Your symptoms continue to cause problems. You have side effects from your medicine, such as: ?Repeated muscle twitches, coughing, or speech outbursts. ?Sleep problems. ?Loss of appetite. ?Dizziness. ?Unusually fast heartbeat. ?Stomach pains. ?Headaches. You are struggling with anxiety, depression, or substance abuse. Get help right away if you: Have a severe reaction to a medicine. If you ever feel like you may hurt yourself or others, or have thoughts about taking your own life,get help right away. You can go to the nearest emergency department or call: Your local emergency services (911 in the [place] A suicide crisis helpline, such as the National Suicide Prevention Lifeline at . Thisis open 24 hours a day. Summary ADHD is a mental health disorder that starts during childhood (neurodevelopmental disorder) and often continues into the adult years. The exact cause of ADHD is not known. Most experts believe genetics and environmental factors contribute to ADHD. There is no cure for ADHD, but treatment with medicine, cognitive behavioral therapy, or behavioralmanagement can help you manage your condition. This information is not intended to replace advice given to you by your health care provider. Make sure you discuss any questions you have with your health care provider. Document Released: 05/20/2018 Document Revised: 02/20/2020 Document Reviewed: 02/20/2020 [employer] Patient Education 2019 [employer] 10/02/2022 17:55:03 Neuropathic Pain Neuropathic Pain Neuropathic pain is pain caused by damage to the nerves that are responsible for certain sensationsin your body (sensory nerves). The pain can be caused by: Damage to the sensory nerves that send signals to your spinal cord and brain (peripheral nervous system). Damage to the sensory nerves in your brain or spinal cord (central nervous system). Neuropathic pain can make you more sensitive to pain. Even a minor sensation can feel very painful.This is usually a long-term condition that can be difficult to treat. The type of pain differs fromperson to person. It may: Start suddenly (acute), or it may develop slowly and last for a long time (chronic). Come and go as damaged nerves heal, or it may stay at the same level for years. Cause emotional distress, loss of sleep, and a lower quality of life. What are the causes? The most common cause of this condition is diabetes. Many other diseases and conditions can also cause neuropathic pain. Causes of neuropathic pain can be classified as: Toxic. This is caused by medicines and chemicals. The most common cause of toxic neuropathic pain is damage from cancer treatments (chemotherapy). Metabolic. This can be caused by: ?Diabetes. This is the most common disease that damages the nerves. ?Lack of vitamin B from long-term alcohol abuse. Traumatic. Any injury that cuts, crushes, or stretches a nerve can cause damage and pain. A common example is feeling pain after losing an arm or leg (phantom limb pain). Compression-related. If a sensory nerve gets trapped or compressed for a long period of time, the blood supply to the nerve can be cut off. Vascular. Many blood vessel diseases can cause neuropathic pain by decreasing blood supply and oxygen to nerves. Autoimmune. This type of pain results from diseases in which the body's defense system (immune system) mistakenly attacks sensory nerves. Examples of autoimmune diseases that can cause neuropathic pain include lupus and multiple sclerosis. Infectious. Many types of viral infections can damage sensory nerves and cause pain. Shingles infection is a common cause of this type of pain. Inherited. Neuropathic pain can be a symptom of many diseases that are passed down through families(genetic). What increases the risk? You are more likely to develop this condition if: You have diabetes. You smoke. You drink too much alcohol. You are taking certain medicines, including medicines that kill cancer cells (chemotherapy) or thattreat immune system disorders. What are the signs or symptoms? The main symptom is pain. Neuropathic pain is often described as: Burning. Shock-like. Stinging. Hot or cold. Itching. How is this diagnosed? No single test can diagnose neuropathic pain. It is diagnosed based on: Physical exam and your symptoms. Your health care provider will ask you about your pain. You may beasked to use a pain scale to describe how bad your pain is. Tests. These may be done to see if you have a high sensitivity to pain and to help find the cause and location of any sensory nerve damage. They include: ?Nerve conduction studies to test how well nerve signals travel through your sensory nerves (electrodiagnostic testing). ?Stimulating your sensory nerves through electrodes on your skin and measuring the response in yourspinal cord and brain (somatosensory evoked potential). Imaging studies, such as: ?X-rays. ?CT scan. ?MRI. How is this treated? Treatment for neuropathic pain may car changer time. You may need to try different treatment options or a combination of treatments. Some options include: Treating the underlying cause of the neuropathy, such as diabetes, kidney disease, or vitamin deficiencies. Stopping medicines that can cause neuropathy, such as chemotherapy. Medicine to relieve pain. Medicines may include: ?Prescription or sdqr-qip-mfprvir pain medicine. ?Anti-seizure medicine. ?Antidepressant medicines. ?Pain-relieving patches that are applied to painful areas of skin. ?A medicine to numb the area (local anesthetic), which can be injected as a nerve block. Transcutaneous nerve stimulation. This uses electrical currents to block painful nerve signals. Thetreatment is painless. Alternative treatments, such as: ?Acupuncture. ?Meditation. ?Massage. ?Physical therapy. ?Pain management programs. ?Counseling. Follow these instructions at home: Medicines Take qbzw-nqu-ueuxrfh and prescription medicines only as told by your health care provider. Do not drive or use heavy machinery while taking prescription pain medicine. If you are taking prescription pain medicine, take actions to prevent or treat constipation. Your health care provider may recommend that you: ?Drink enough fluid to keep your urine pale yellow. ?Eat foods that are high in fiber, such as fresh fruits and vegetables, whole grains, and beans. ?Limit foods that are high in fat and processed sugars, such as fried or sweet foods. ?Take an jpmi-cqb-knqorqx or prescription medicine for constipation. Lifestyle Have a good support system at home. Consider joining a chronic pain support group. Do not use any products that contain nicotine or tobacco, such as cigarettes and e-cigarettes. If you need help quitting, ask your health care provider. Do not drink alcohol. General instructions Learn as much as you can about your condition. Work closely with all your health care providers to find the treatment plan that works best for you. Ask your health care provider what activities are safe for you. Keep all follow-up visits as told by your health care provider. This is important. Contact a health care provider if: Your pain treatments are not working. You are having side effects from your medicines. You are struggling with tiredness (fatigue), mood changes, depression, or anxiety. Summary Neuropathic pain is pain caused by damage to the nerves that are responsible for certain sensationsin your body (sensory nerves). Neuropathic pain may come and go as damaged nerves heal, or it may stay at the same level for years. Neuropathic pain is usually a long-term condition that can be difficult to treat. Consider joining a chronic pain support group. This information is not intended to replace advice given to you by your health care provider. Make sure you discuss any questions you have with your health care provider. Document Released: 06/25/2005 Document Revised: 01/19/2020 Document Reviewed: 10/15/2018 [employer] Patient Education 2020 [employer] Follow Up Care 09/29/2022 11:32:44 With:NANCY RODRIGUEZ CNP Address: [address] [place] [address] [address] [place] [address] When: Unknown [facility] [place] 07-15-2022 Hospital Discharge instructions Patient Education 04/25/2022 02:56:28 Substance Use Disorder and Mental Illness Substance Use Disorder and Mental Illness Substance use disorder is a condition in which a person is dependent on a substance, such as drugs or alcohol. A mental illness is a condition that occurs when someone experiences changes in mood, behavior, or thinking. Sometimes, these two conditions can occur at the same time (co-occurring disorders) and may be diagnosed together (dual diagnosis). What is the relationship between substance use disorder and mental illness? Substance use disorder and mental illness can share symptoms and can have similar causes, such as exposure to stress or changes in brain chemicals. The risk for developing both of these conditions can be passed from parent to child (inherited). People with mental illnesses sometimes use drugs to try and relieve symptoms, and this can lead to substance use disorder. Substance use disorders occur more often in people who have depression, schizophrenia, anxiety, or personality disorders. When somedrugs are used regularly, they can cause people to have symptoms of mental illness. What are the signs or symptoms? Symptoms vary widely for substance use disorder and mental illness, especially because these conditions can be present at the same time. Signs of a substance use disorder may include: Failure to meet responsibilities at home, work, or school. Using substances in risky situation, such as while driving or using machinery. Taking serious risks to get drugs or alcohol. Spending less time on activities or hobbies that used to be important. Changes in personality or attitude for no reason, such as angry outbursts, symptoms of anxiety, or unusual giddiness. Trying to hide the amount of drugs or alcohol used. Increased substance use over time, or needing to use more of a substance to feel the same effects (developing a tolerance). Sudden weight loss or gain. Sleeping too much or too little. Uncontrolled trembling or shaking (tremors), slurred speech, or lack of coordination. Continuing to use alcohol or a drug even though using it has led to bad outcomes or consequences, such as losing a job or ending a relationship. Signs of mental illness may include: Extreme mood changes (mood swings). Sleeping too much or too little. Weight loss or weight gain. Being easily distracted. Confused thinking or trouble concentrating. Expressing thoughts of suicide. Withdrawing from friends and family, or sudden changes in social behaviors or hobbies. Aggression toward people and animals. Repeatedly breaking serious rules or breaking the law. Having persistent thoughts or urges that are unpleasant or feel out of control (involuntary). The person may feel the need to act on the urges in order to reduce anxiety. Persistent feelings of sadness or hopelessness. False beliefs (delusions). Seeing, hearing, tasting, smelling, or feeling things that are not real (hallucinations). How is this diagnosed? Substance use disorder and mental illnesses can be difficult to diagnose at the same time because of how varied and complex the symptoms are. Because these conditions can interact, one condition may be missed. This is why it is important to be completely honest with your health care provider about substance use and your other symptoms. Diagnosing your condition may include: A physical exam. A review of your medical history and your symptoms. Your health care provider may refer you to a mental health professional for a psychiatric evaluation. This may include assessments of: Your use of substances. Your risk of suicide. Your risk of aggressive behaviors. Your lifestyle, environment, and social situations. Your medical health. Your mental health and behavioral history. How is this treated? It is best to treat substance use disorder and mental illness at the same time (integrated treatment approach). Treatment usually involves more than one of the following methods: Detox. This refers to stopping substance abuse while being monitored by trained medical staff. Thisis usually the first step in treatment. Detox can last for up to 7 days. Rehabilitation. This involves staying in a treatment center where you can have medical and mental health support all the time. Medicines to relieve symptoms of mental illness and to control symptoms that are caused by stoppingsubstance abuse (withdrawal symptoms). Support groups. These groups encourage you to talk about your fears, frustrations, and anxieties with others who have the same condition. Talk therapy. This is one-on-one therapy that can help you learn about your illness and learn ways to cope with symptoms or side effects. Follow these instructions at home: Lifestyle Exercise regularly. Aim for 150 minutes of moderate exercise (such as walking or biking) or 75 minutes of vigorous exercise (such as running) each week. Eat a healthy diet with plenty of fruits and vegetables, whole grains, and lean proteins. Avoid caffeine and tobacco. These can worsen symptoms and anxiety. Do not drink alcohol or use drugs. Try to get 7 9 hours of sleep each night. To do this: ?Keep your bedroom cool and dark. ?Do not eat a heavy meal during the hour before you go to bed. ?Do not have caffeine before bedtime. ?Avoid screen time during the few hours before bedtime. This means not watching TV and not using a computer, cell phone, or tablet. Medicines Take mxpr-ket-kubmxug and prescription medicines only as told by your health care provider. Do not stop taking medicines unless you ask your health care provider if it is safe to do that. Tell your health care provider about any medicine side effects that you experience. General instructions Follow your treatment plan as directed. Work with your health care provider to adjust your treatment plan as needed. Attend support group or therapy sessions as directed. Explain your diagnosis to your friends and family. Let them know what your symptoms are and what things cause your symptoms to start (triggers). Avoid triggers or stressors that may worsen your symptoms or cause you to use alcohol or drugs. Spend time with family and friends who do not use substances. Make time to relax and do self-soothing activities, such as meditating or listening to music. Keep all follow-up visits as told by your health care provider and therapist. This is important. Where to find support You may find support for coping with substance use disorder and mental illness from: Your health care providers or your therapist. These providers can treat you or they can help you find services to treat your condition. Local support groups for people with your condition. Your health care provider or therapist may be able to recommend a support group. This may be a hospital support group, a National [place] on Mental Illness (JUSTINA) support group, or a 12-step group such as Alcoholics Anonymous (AA) or Narcotics Anonymous (NA). Family and friends. Let them know what they can do to best support you through your recovery process. Where to find more information You may find more information about substance use disorder and mental illness from: Substance Abuse and Mental Health Services Administration (SAMHSA): ?Online: www.samhsa.gov ?National Helpline, to talk with a person who can help you find information about treatment services in your area: (4-106-BGHYCP6) U.[place]. Department of Health and Human Services mental health services: www.mentalhealth.gov National [place] on Mental Illness (JUST[place]): www.justina.org National [place] on Alcoholism and Drug Dependence: www.ncadd.org Contact a health care provider if: Your symptoms get worse or they do not get better. You have negative side effects from taking medicines. You want to discuss stopping medicines or treatment. You start using a substance again (have a relapse). Get help right away if: You have thoughts about harming yourself or others. If you ever feel like you may hurt yourself or others, or have thoughts about taking your own life,get help right away. You can go to your nearest emergency department or call: Your local emergency services (911 in the [place] A suicide crisis helpline, such as the National Suicide Prevention Lifeline at . Thisis open 24 hours a day. Summary Substance use disorder and mental illness can occur at the same time (co- occurring disorders), and they may be diagnosed together (dual diagnosis). These conditions can be difficult to diagnose at the same time. It is important to be completely honest with your health care provider about your substance use and your other symptoms. It is best to treat substance use disorder and mental illness at the same time (integrated treatment approach). Identifying new ways to deal with triggers and difficult situations is an important part of recovery. Keep all follow-up visits as told by your health care provider and therapist. Be consistent when attending support groups or treatment programs. This information is not intended to replace advice given to you by your health care provider. Make sure you discuss any questions you have with your health care provider. Document Released: 02/12/2018 Document Revised: 11/24/2019 Document Reviewed: 02/12/2018 [employer] Patient Education 2020 [employer]. 04/25/2022 02:56:28 Managing Schizophrenia Managing Schizophrenia If you have been diagnosed with schizophrenia, you may be relieved to know why you have felt or behaved a certain way. Still, you may have questions about the treatment ahead, how to get the support you need, and how to deal with the condition day-to-day. With care and support, you can learn to manage your symptoms and live with schizophrenia. How to manage lifestyle changes Managing stress Stress is your body's reaction to life changes and events, both good and bad. For people with schizophrenia, stress can sometimes cause an episode to start (can be a trigger), so it is important to learn ways to manage stress. Your health care provider, therapist, or counselor may suggest some techniques such as: Meditation, muscle relaxation, and breathing exercises. Music therapy. This can include creating music or listening to music. Life skills training. This training is focused on work, self-care, money, house management, and social skills. Other things you can do to manage stress include: Keeping a stress diary. This can help you learn what causes your stress to start and how you can control your response to those triggers. Exercising. Even a short daily walk can help. Getting enough sleep. Making a schedule to manage your time. Knowing what you will do from day to day helps you avoid feeling overwhelmed by tasks and deadlines. Spending time on hobbies you enjoy that help you relax. Medicines Antipsychotic medicines are usually prescribed to help manage this condition. Make sure you: Talk with your pharmacist or health care provider about all medicines that you take, the possible side effects, and which medicines are safe to take together. Make it your goal to take part in all treatment decisions (shared decision- making). Ask about possible side effects of medicines that your health care provider recommends, and tell him or her how youfeel about having those side effects. It is best if shared decision-making with your health care provider is part of your total treatment plan. Relationships Having the support of your family and friends can play a major role in the success of your treatment. The following steps can help you maintain healthy relationships: Think about going to couples therapy, family therapy, or family education classes. Create a written plan for your treatment, and include close family members and friends in the process. Consider bringing your partner or another family member or friend to the appointments you have withyour health care provider. How to recognize changes in your condition If you find that your condition is getting worse, talk to your health care provider right away. Watch for these signs: You hear, see, taste, and things that others do not (hallucinate). You cannot set aside persistent, unusual thoughts or beliefs, no matter what others may believe. Your speech becomes unclear. You withdraw from friends and family members. You have racing thoughts and have trouble thinking clearly or staying focused. You have poor personal hygiene, weight gain or weight loss, or changes in how you are sleeping or eating. Follow these instructions at home: Take hloi-stj-egarshv and prescription medicines only as told by your health care provider. Do not start new medicines or stop taking medicines before you ask your health care provider if it is safe to make those changes. Avoid caffeine, alcohol, and drugs. They can affect how your medicine works and can make your symptoms worse. Eat a healthy diet. Look for support groups in your area so you can meet other people with your condition. You will learn different methods that others have used to manage schizophrenia. Keep all follow-up visits as told by your health care provider, therapist, or counselor. This is important. Where to find support Talking to others Reach out to trusted friends or family members, explain your condition, and let them know that you are working with a health care team. Consider giving educational materials to friends and family. If you are having trouble telling your friends and family about your condition, keep in mind that honest and open communication can make these conversations easier. Finances Be sure to check with your insurance carrier to find out what treatment options are covered by yourplan. You may also be able to find financial assistance through wrw-ron-xntihz organizations or with local government-based resources. If you are taking medicines, you may be able to get the generic form, which may be less expensive than brand-name medicine. Some makers of prescription medicines also offer help to patients who cannot afford the medicines that they need. Therapy and support groups Make sure you find a counselor or therapist who is familiar with schizophrenia. Meet with your counselor or therapist once a week or more often if needed. Find support programs for people with schizophrenia. Where to find more information National [place] on Mental Illness: www.justina.org Contact a health care provider if: You are not able to take your medicines as prescribed. Your symptoms get worse. Get help right away if: You have serious thoughts about hurting yourself or others. If you ever feel like you may hurt yourself or others, or have thoughts about taking your own life,get help right away. You can go to your nearest emergency department or call: Your local emergency services (911 in the [place] A suicide crisis helpline, such as the National Suicide Prevention Lifeline at . Thisis open 24 hours a day. Summary Schizophrenia is a lifelong illness. It is best controlled with continuous treatment that includes medicine and therapy. Learning ways to deal with stress may help your treatment work better. Having the support of your family and friends can help to make your treatment a success. If you find that your condition is getting worse, talk to your health care provider right away. This information is not intended to replace advice given to you by your health care provider. Make sure you discuss any questions you have with your health care provider. Document Released: 01/28/2018 Document Revised: 01/20/2020 Document Reviewed: 01/28/2018 Elsevier Patient Education 2020 [employer] Follow Up Care 04/24/2022 12:58:04 With:[facility] Address:Unknown When: Unknown Comments:Call the office today to arrange further detox options. With:NANCY RODRIGUEZ Address: [address] [place] [address] Business (1) When:Within 3 Day(s) [facility]07-14-2022 Evaluation + Plan noteExtracted from: Title:ED Note Author:Ricco Hoang PA-C te:04/24/22 1. Substance abuse (F19.10: Other psychoactive substance abuse, uncomplicated) 2. Schizophrenia (F20.9: Schizophrenia, unspecified) 3. UTI (urinary tract infection) (N39.0: Urinary tract infection, site not specified) Orders: cephalexin, 500 mg = 1 cap(s), Cap, Oral, Once, Stop date 04/24/22 17:52:00 EDT, STAT, Start date 04/24/22 17:52:00 EDT, 04/24/22 17:52:00 EDT cephalexin, 500 mg = 1 cap(s), Oral, q12hr, X 7 day(s), # 14 cap(s), Refills(s) 0, Pharmacy: [id number], 165, cm, 04/24/22 13:10:00 EDT, Height/Length Dosing, 70.8, kg, 04/24/22 13:10:00 EDT, Weight Dosing lorazepam, 2 mg = 2 tab(s), Tab, Oral, Once, Stop date 04/24/22 14:20:00 EDT, STAT, Start date 04/24/22 14:20:00 EDT, 04/24/22 14:20:00 EDT Basic Metabolic Panel Creatine Kinase Drug Screen Urine ECG 12 Lead Adult eGFR Rapid COVID Antigen ([facility]) Troponin 0 Hr. UA With Cult Reflex Urine Culture [facility]ments Appointment Date:04/02/2023 11:00:00 AM Scheduled Provider:NANCY RODRIGUEZ CNP Location:[facility] Appointment Type: Open Future Scheduled Tests Radiology* XR Knee Complete 4+ Views Left 10/02/22 * XR Elbow 3+ Views Left 10/02/22 * XR Spine Lumbosacral Minimum 4 Views 10/02/22 [facility] Evaluation + Plan note Future Appointments Appointment Date:02/05/2023 02:20:00 PM Scheduled Provider:Cris PENA CNP Location:[facility] Appointment Type: Open Appointment Date:04/02/2023 11:00:00 AM Scheduled Provider:NANCY RODRIGUEZ CNP Location:[facility] Appointment Type: Open Future Scheduled Tests Radiology* XR Knee Complete 4+ Views Left 10/02/22 * XR Elbow 3+ Views Left 10/02/22 * XR Spine Lumbosacral Minimum 4 Views 10/02/22 [facility] Evaluation noteNo assessment information available [facility] Work Phone: evaluation note* Diagnosis Onset Date Resolution Status Bipolar 1 disorder, depressed acute Hypokalemia acute Opioid use disorder acute Suicidal ideation acute UTI (urinary tract infection) acute [facility] Work Phone: [email or web address] note* Diagnosis Wellness examination- Primary Screening for diabetes mellitus Screening for lipid disorders Screening for cervical cancer Screening for malignant neoplasm of the cervix History of abnormal cervical Pap smear Personal history of other genital system and obstetric disorders History of heroin abuse ([facility]) Opioid abuse, in remission Attention deficit hyperactivity disorder (ADHD), unspecified ADHD type Bipolar depression (HCC) Bipolar I disorder, most recent episode (or current) depressed, unspecified Paranoid schizophrenia (HCC) Paranoid schizophrenia, unspecified condition Chronic midline low back pain without sciatica [facility] Diagnosis Anxiety- Primary Anxiety state, unspecified [facility]* Diagnosis Attention deficit hyperactivity disorder (ADHD), unspecified ADHD type- Primary Paranoid schizophrenia (HCC) Paranoid schizophrenia, unspecified condition Bipolar depression (HCC) Bipolar I disorder, most recent episode (or current) depressed, unspecified History of heroin abuse (HCC) Opioid abuse, in remission [facility]* Diagnosis Paranoid schizophrenia (HCC) Paranoid schizophrenia, unspecified condition Bipolar depression (HCC) Bipolar I disorder, most recent episode (or current) depressed, unspecified [facility]* Diagnosis Paranoid schizophrenia (HCC) Paranoid schizophrenia, unspecified condition Bipolar depression (HCC) Bipolar I disorder, most recent episode (or current) depressed, unspecified Attention deficit hyperactivity disorder (ADHD), unspecified ADHD type [facility]* Diagnosis Attention deficit hyperactivity disorder (ADHD), unspecified ADHD type [facility]* Diagnosis Onset Date Resolution Status Bipolar disorder, unspecified acute [facility] Work Phone: Evaluation note* Diagnosis Myofascial pain syndrome Mylagia and myositis, unspecified documented in this encounter [facility] note* Diagnosis Myofascial pain syndrome Mylagia and myositis, unspecified [facility] Author Bobo Shields [facility] January 12, 2023 3:37pm Note Date/Time January 12, 2023 3:33 pm [facility] [address] [place] [address] Psychiatry H&P Signed Patient: Lorna Deutsch MR#: [id number] : 1985 Acct:[id number] Age/Sex: 38 / F Adm Date: 3 Loc: Room: [address] [place] [address] Type: ADM IN Attending Dr: Bobo Shields MD Copies to: MD Cris Murcia APRN, CNP~ Date of Service: 01/12/2023 HPI History of Present Illness History of present illness: Ms. Deutsch is a 38 year old female who presented due to concern for depression and suicidal ideation. Upon assessment, patient reported that she had stopped her medication for roughly 5 days. She reported that symptoms have been worsening and she has beenmore labile and having arguments with her boyfriend. She stated that she also relapsed and was using opiates over the weekend. She reported that her suicidalideation has been increasing and wanted to overdose on her medications. She reported that she was taking Seroquel and Rexulti in the past. She also mentioned about taking Klonopin. She reported that she sleeps well when she takes her Seroquel at bedtime but feels like the nighttime dose is too high. Past psych history: History of bipolar disorder Past hospitalizations: History past psychiatric hospitalizations Past suicide attempts: Reported prior suicide attempts Family psych history: Reported family history in her brother, mom and sister Previous medications: Rexulti, Seroquel, Klonopin Alcohol and drug use: Reported opiate addiction and currently on methadone Living: With partner Employment: Unemployed Review of symptoms: Constitutional: Denies chills and Denies fever(s) Eyes: Denies change in vision ENT: Denies abnormal hearing Cardiovascular: Denies chest pain Respiratory: Denies chest congestion and Denies cough Gastrointestinal: Denies change in bowel habits Genitourinary: Denies dysuria Musculoskeletal: Denies atrophy and Denies myalgias Integumentary/Breasts: Denies dry skin Neurologic: Denies abnormal gait and Denies abnormal movements Psychiatric: Reports depression and suicidal ideation Physical exam: Const: cooperative Nutritional Appearance: average body habitus Orientation: alert, awake and oriented x3 HEENT: Head normal to inspection, hearing grossly normal bilaterally, external nose normal, face symmetric Eyes: appearance normal, both eyes and all related structures, sclerae normal Neck: normal visual inspection and full ROM Resp: normal respiratory effort, able to speak in complete sentences and symmetric chest movement Cardio: regular rate GI: normal to inspection and non-distended : deferred Skin: no rashes or lesions noted Neuro: CNI: Normal olfaction CNI: normal olfaction CNII: Visual knight intact, CNIII,IV,: EOM intact, no nystagmus. Pupils equal, round, reactive to light and accommodation, CNV: Sensation intact to light touch, CNVII: Raises eyebrows, smile/frown, puff out cheeks symmetrically, CNVIII: Hearing intact bilaterally, CNIX,X: Voice normal, soft palate elevation normal, symmetrical, CNXI: Shoulder shrug strong, equal bilaterally, CNXII: Tongue protrusion midline, movement symmetrical. Extrem: normal to inspection and full ROM Mental Status Exam: Appearance: grossly normal Mental Status: mental status grossly normal Mood: dysthymic mood Affect: dysphoric affect Speech and Movement: speech and movement normal and speech clear Attitude: cooperative Thought Process: normal Thought Content: Denied hallucinations, no homicidality, reported suicidality Insight: fair Judgment: fair PMFSH Vaccinated for COVID-19?: No Medical History (Updated 01/12/23 @ 15:24 by Carol Moses DO) Anxiety Asthma Back fracture Depressed Heroin abuse SOBER X4 YEARS, RELAPSE 07/15/2020 USED FENTANYL X1 Pre-diabetes Family History Grandparent DM2 (diabetes mellitus, type 2) Social History Smoking Status: Current every day smoker Tobacco Type: cigarettes Substance Use Type: Alcohol, Opiates and Methamphetamine Substance Abuse Comment: 2 DAYS AGO Meds Medications and Allergies Allergies No Known Allergies Allergy (Verified 01/12/23 07:59) Home Medications albuterol sulfate 90 mcg/actuation aerosol inhaler 2 puff inhalation Q4H PRN Shortness Of Breath 01/17/19 [History Confirmed 01/12/23] divalproex 500 mg tablet,extended release 24 hr 1,000 mg PO QHS 15 days #30 tabs02/05/21 [Rx Confirmed 01/12/23] hydroxyzine pamoate 50 mg capsule 50 mg PO Q6H PRN Anxiety 15 days #15 caps 02/05/21 [Rx Confirmed 01/12/23] quetiapine 200 mg tablet 400 mg PO QHS 15 days #30 tabs 03/24/21 [Rx Confirmed 01/12/23] dextroamphetamine-amphetamine 20 mg tablet 20 mg PO BID 11/20/22 [History Confirmed 01/12/23] gabapentin 800 mg tablet 400 mg PO DIRECTED 11/20/22 [History Confirmed 01/12/23] methadone 40 mg soluble tablet 120 mg PO DAILY 11/20/22 [History Confirmed 01/12/23] divalproex 500 mg tablet,delayed release 500 mg PO DAILY 01/12/23 [History Confirmed 01/12/23] Exam Physical Exam Vital Signs: Temp Pulse Resp BP Pulse Ox O2 Del Method 97.3 F L 106 H 18 119/72 98 Room Air 01/12/23 07:58 01/12/23 11:28 01/12/23 11:28 01/12/23 11:28 01/12/23 11:28 01/12/23 11:28 Results Labs 01/12/23 08:11 01/12/23 08:11 Psychiatry Labs: 0401/12/23 01/12/23 08:11 08:11 09:05 RBC 5.19 H Hgb 16.1 H Hct 47.7 H MCV 91.9 MCH 30.9 MCHC 33.7 RDW 14.2 Plt Count 275 MPV 8.7 Sodium 139 Potassium 3.0 L Chloride 103 Carbon Dioxide 25.9 Anion Gap 13.1 BUN 14 Creatinine 0.65 Calcium 10.7 H Total Bilirubin 0.6 AST 13 ALT 10 Alkaline Phosphatase 50 Total Protein 9.2 H Albumin 5.3 Urine Color Yellow Urine Appearance Cloudy A Urine pH 6.0 Ur Specific [place] 1.020 Urine Protein Negative Urine Glucose (UA) Normal Urine Ketones Trace H Urine Occult Blood Trace H Urine Nitrite Positive H Ur Leukocyte Esterase 2+ H Urine RBC 3-4 Urine WBC 10-19 H Abnormal Involuntary Movement Dental Status Are dentures usually worn?: No Assessment/Plan (1) Bipolar 1 disorder, depressed: Code(s): F31.9 - Bipolar disorder, unspecified Status: Acute (2) Opioid use disorder: Code(s): F11.99 - Opioid use, unspecified with unspecified opioid-induced disorder Status: Acute Plan Patient presenting due to concern for depression and suicidal ideation. She hasbeen off medications for roughly 5 days Will restart Seroquel 200 mg at bedtime and 25 mg daily Restart Depakote 500 the morning and 1000 at bedtime Restart gabapentin 400 mg 5 times a day and Adderall 20 mg twice a day Restart methadone 120 mg daily Continue to monitor mental status Encourage group participation and medication compliance Risk benefits alternatives explained Documented By: Bobo Shields MD 01/12/23 1528 Signed By: <Electronically signed by Bobo Shields MD> 01/12/23 1537 [facility] Work Phone: Hospital course Narrative No data available for this section [facility] No data available for this section [facility] Additional Instructions Follow-up with your primary care doctor Return to the ED if you develop worsening symptoms or [facility] Work Phone: Hospital Discharge instructions Additional Instructions Regular Diet No Activity RestrictionsM[facility] Work Phone: Hospital Discharge instructions Additional Instructions Important Contact Information You can call [facility] at [phone] any time day or night if you have emergent questions or question regarding discharge instructions. If at any time you are feeling an increase in your psychiatric symptoms, call your physician or behavioral healthcare provider. If any time you have thoughts of harming yourself or others contact one of the following: Call 8 (available 04/05) Crisis Text Line (available 04/05) text 4HOPE to [phone] [facility] Hope Line (available 8 a.m. Midnight) call [phone] ([phone]) Regular Diet No Activity RestrictionsM[facility] Work Phone: Progress note No data available for this section [facility] Summary Purpose Family History No Family History Records Found Medical History Relation Name Comments Depression Brother Cancer Maternal Grandmother colon c ancer Diabetes Maternal Grandmother Cancer Mother breast Other Mother Bipolar Depression Sister Relation Name Status Comments Brother Maternal Grandmother Mother Sister Relationship Condition Age at Onset Recorded Date/T major grandparent Type 2 diabetes mellitus Unknown Advance Directives No Advanced Directives Records FoundDocuments on File Type Date Recorded Patient Animal Attendant Expl anation ACP-Advance Directive ACP-Advance Directive 07/04/2014 2:14 PM ACP-Power of Silk Screener Latest Code Status on File Code Status Date Activated Date Inactivated Comments Full Code 07/18/2020 2:28 AM Full Code 09/28/2016 1:34 PM 10/01/2016 5:22 PM Full Code 07/28/2016 11:49 AM 07/30/2016 8:04 PM Full Code 07/12/2014 1:58 AM 07/21/2014 11:28 AM Full Code 05/13/2014 12:14 PM 05/23/2014 6:16 PM Advance Directive Response Recorded Date/ Time Advance Directives No January 17 1:24am Advance Directive Response Recorded Date/ Time Advance Directives No January 17 12:24am Chief Complaint and Reason for Visit Chief Complaint SOB, runny nose Chief Complaint Anxiety Anxiety Chief Complaint Anxiety Anxiety mental eval Chief Complaint Anxiety Anxiety mental eval Reason for Visit Bipolar 1 disorder, depressed Hypokalemia Opioid use disorder Suicidal ideation UTI (urinary tract infection) Chief Complaint Anxiety Anxiety mental eval Wants to talk to Reason for Visit Bipolar 1 disorder, depressed Hypokalemia Opioid use disorder Suicidal ideation UTI (urinary tract infection) Chief Complaint Wants to talk to Dr Ad portillol,MHP anxiety Missed meth clinic/needs meds Chief Complaint Wants to talk to Dr Duong withdrawl,MHP anxiety Missed meth clinic/needs meds needs medication refill Chief Complaint Missed meth clinic/n eeds meds needs medication refill abd pain,vomiting Chief Complaint Missed meth clinic/n eeds meds needs medication refill abd pain,vomiting Bipolar Disorder with Psychotic features Reason for Visit Bipolar disorder, un specified Chief Complaint Bipolar Disorder wit h Psychotic features anxiety Reason for Visit Bipolar disorder, un specified Chief Complaint bh Bipolar Disorder with Psychotic features anxiety MHP hx Anxiety Reason for Visit Bipolar disorder, un specified Chief Complaint Bipolar Disorder wit h Psychotic features anxiety MHP hx Anxiety feeling sick Reason for Visit Bipolar disorder, un specified Reason for Referral Specialty Diagnoses / Procedures Referred By Contac t Referred To Contact Pain Management Diagnoses Chronic midline low back pain without sciatica Procedures CONSULT TO PAIN MGT OFFICE/OUTPATIENT [facility] 60-74 MINUTES Mireille Cheatham APRN.WAITER/WAITRESS COCKTAIL [employer]OUNGE [address] [place] [address] Referral ID Status Reason Start Date Expiration Date Visits Requested Visits Authorized [id number] Authorized PCP Requested Referral 03/16/2023 03/15/2024 1 1 Specialty Diagnoses / Procedures Referred By Contac t Referred To Contact Diagnoses Attention deficit hyperactivity disorder (ADHD), unspecified ADHD type Bipolar depression (HCC) Paranoid schizophrenia (HCC) Procedures CONSULT TO PSYCHIATRY OFFICE/OUTPATIENT [facility] 60-74 MINUTES Mireille Cheatham APRN.WAITER/WAITRESS [employer]TA[employer] [address] [place] [address] Referral ID Status Reason Start Date Expiration Date Visits Requested Visits Authorized [id number] Pending Review PCP Requested Referral 03/16/2023 03/15/2024 1 1 Specialty Diagnoses / Procedures Referred By Contac t Referred To Contact Diagnoses History of abnormal cervical Pap smear Procedures CONSULT TO REFERENCE AND INSTRUCTION LIBRARIAN OFFICE/OUTPATIENT [facility] 60-74 MINUTES Mireille Cheatham APRN.WAITER/WAITRESS [employer] [address] [place] [address] Referral ID Status Reason Start Date Expiration Date Visits Requested Visits Authorized [id number] Authorized PCP Requested Referral Auto-Generate d Referral 03/16/2023 03/15/2024 1 1 Additional Source Comments INFORMATION SOURCE (unrecogn ized section and content) DATE CREATED AUTHOR 05/14/2019 [facility] DATE CREATED AUTHOR AUTHOR'S ORGANIZ ATION 02/11/2021 [facility] DATE CREATED AUTHOR AUTHOR'S ORGANIZ ATION 01/16/2023 [facility] DATE CREATED AUTHOR AUTHOR'S ORGANIZ ATION 05/17/2023 [facility] DATE CREATED AUTHOR AUTHOR'S ORGANIZ ATION 06/13/2023 [facility] DATE CREATED AUTHOR AUTHOR'S ORGANIZ ATION 09/01/2023 [facility] DATE CREATED AUTHOR AUTHOR'S ORGANIZ ATION 09/25/2023 [facility] DATE CREATED AUTHOR AUTHOR'S ORGANIZ ATION 10/03/2023 [facility] Care Team (unrecognized sect ion and content) Team Status: Active Member Role Status Dates Cris Pena APRN SOLAR DESIGN ENGINEER-C Primary Care Provider Active Team Status: Inactive Member Role Status Dates Rachael Reyes DO Emergency Provider Active Cris Pena APRN SOLAR DESIGN ENGINEER-C Primary Care Provider Active Team Status: Inactive Member Role Status Dates Cris Pena APRN SOLAR DESIGN ENGINEER-C Primary Care Provider Active Nito Walton DO Emergency Provider Active Team Status: Active Member Role Status Dates Cris Pena APRN SOLAR DESIGN ENGINEER-C Primary Care Provider Active Carol Moses DO Emergency Provider Active Bobo Shields MD Admit Provider, Attending Provider Active Team Status: Inactive Member Role Status Dates Rachael Reyes DO Emergency Provider Active Nancy Rodriguez , SOLAR DESIGN ENGINEER-C Primary Care Provider Active Team Status: Active Member Role Status Dates Nancy Rodriguez SOLAR DESIGN ENGINEER-C Primary Care Provider Active Team Status: Inactive Member Role Status Dates Cris Pena APRN SOLAR DESIGN ENGINEER-C Primary Care Provider Active Carol Moses DO Emergency Provider Active Bobo Shields MD Admit Provider, Attending Provider Active Team Status: Inactive Member Role Status Dates Cris Pena APRN SOLAR DESIGN ENGINEER-C Primary Care Provider Active Farhad Landon MD Emergency Provider Active Time Clerk Relationship Specialty Start Date End Date Mireille Cheatham, OCCUP THERAPIST.WAITER/WAITRESS COCKTAIL [employer]OUNGE [address] [place] [address] PCP - General Internal Medicine 03/16/23 Time Clerk Relationship Specialty Start Date End Date Randal Cheathamina, OCCUP THERAPIST.WAITER/WAITRESS COCKTAIL [employer]OUNGE [address] [place] [address] PCP - General Internal Medicine 03/16/23 Time Clerk Relationship Specialty Start Date End Date Randal coronelina, OCCUP THERAPIST.WAITER/WAITRESS COCKTA[employer]GE [address] [place] [address] PCP - General Internal Medicine 03/16/23 Time Clerk Relationship Specialty Start Date End Date RandalMireille, OCCUP THERAPIST.WAITER/WAITRESS COCKTAIL [employer]OUNGE [address] [place] [address] PCP - General Internal Medicine 03/16/23 Team Status: Active Member Role Status Dates NON STAFF Primary Care Provider Active Team Status: Inactive Member Role Status Dates Cris Pena , RUIZ SOLAR DESIGN ENGINEER-C Primary Care Provider Active Leonard Salazar , DO Emergency Provider Active Team Status: Inactive Member Role Status Dates Cris Pena APRN SOLAR DESIGN ENGINEER-C Primary Care Provider Active Rachael Reyes , DO Emergency Provider Active Team Status: Inactive Member Role Status Dates NON STAFF Primary Care Provider Active Rachael Reyes , DO Emergency Provider Active Team Status: Inactive Member Role Status Dates NON STAFF Primary Care Provider Active EZIO Nolan-C Emergency Provider Active Time Clerk Relationship Specialty Start Date End Date RandalMireille, OCCUP THERAPIST.WAITER/WAITRESS COCKTA[employer]GE [address] [place] [address] PCP - General Internal Medicine 03/16/23 Time Clerk Relationship Specialty Start Date End Date Randal coronelina, OCCUP THERAPIST.WAITER/WAITRESS COCKTAIL [employer]GE [address] [place] [address] PCP - General Internal Medicine 03/16/23 Team Status: Inactive Member Role Status Dates NON STAFF Primary Care Provider Active Luis Armando Hendrix MD Emergency Provider Active Team Status: Inactive Member Role Status Dates NON STAFF Primary Care Provider Active Bobo Shields MD Admit Provider, Attending Provider Active Team Status: Active Member Role Status Dates Cris Pena APRN [employer] DESIGN ENGINEER-C Primary Care Provider Active Claudio Dee MD Attending Provider Active Goals (unrecognized section and content) Goals may be documented in a n alternate section Source Comments (unrecognize d section and content) In the event this informatio n is protected by the Federal Confidentiality of Alcohol and Drug Abuse Patient Records regulations: The Federal rules restrict any use of the information to criminally investigate or prosecute any alcohol or drug abuse patient.[facility] the event this information is protected by the Federal Confidentiality of Alcohol and Drug Abuse Patient Records regulations: The Federal rules restrict any use of the information to criminally investigate or prosecute any alcohol or drug abuse patient.[facility] the event this information is protected by the Federal Confidentiality of Alcohol and Drug Abuse Patient Records regulations: The Federal rules restrict any use of the information to criminally investigate or prosecute any alcohol or drug abuse patient.[facility] the event this information is protected by the Federal Confidentiality of Alcohol and Drug Abuse Patient Records regulations: The Federal rules restrict any use of the information to criminally investigate or prosecute any alcohol or drug abuse patient.[facility] the event this information is protected by the Federal Confidentiality of Alcohol and Drug Abuse Patient Records regulations: The Federal rules restrict any use of the information to criminally investigate or prosecute any alcohol or drug abuse patient.[facility] HospitalIn the event this information is protected by the Federal Confidentiality of Alcohol and Drug Abuse Patient Records regulations: The Federal rules restrict any use of the information to criminally investigate or prosecute any alcohol or drug abuse patient.[facility] HospitalIn the event this information is protected by the Federal Confidentiality of Alcohol and Drug Abuse Patient Records regulations: The Federal rules restrict any use of the information to criminally investigate or prosecute any alcohol or drug abuse patient.[facility]In the event this information is protected by the Federal Confidentiality of Alcohol and Drug Abuse Patient Records regulations: The Federal rules restrict any use of the information to criminally investigate or prosecute any alcohol or drug abuse patient.[facility] HospitalIn the event this information is protected by the Federal Confidentiality of Alcohol and Drug Abuse Patient Records regulations: The Federal rules restrict any use of the information to criminally investigate or prosecute any alcohol or drug abuse patient.[facility] HospitalIn the event this information is protected by the Federal Confidentiality of Alcohol and Drug Abuse Patient Records regulations: The Federal rules restrict any use of the information to criminally investigate or prosecute any alcohol or drug abuse patient.[facility] HospitalIn the event this information is protected by the Federal Confidentiality of Alcohol and Drug Abuse Patient Records regulations: The Federal rules restrict any use of the information to criminally investigate or prosecute any alcohol or drug abuse patient.[facility] HospitalIn the event this information is protected by the Federal Confidentiality of Alcohol and Drug Abuse Patient Records regulations: The Federal rules restrict any use of the information to criminally investigate or prosecute any alcohol or drug abuse patient.[facility] HospitalIn the event this information is protected by the Federal Confidentiality of Alcohol and Drug Abuse Patient Records regulations: The Federal rules restrict any use of the information to criminally investigate or prosecute any alcohol or drug abuse patient.[facility] HospitalIn the event this information is protected by the Federal Confidentiality of Alcohol and Drug Abuse Patient Records regulations: The Federal rules restrict any use of the information to criminally investigate or prosecute any alcohol or drug abuse patient.[facility] HospitalIn the event this information is protected by the Federal Confidentiality of Alcohol and Drug Abuse Patient Records regulations: The Federal rules restrict any use of the information to criminally investigate or prosecute any alcohol or drug abuse patient.[facility] HospitalIn the event this information is protected by the Federal Confidentiality of Alcohol and Drug Abuse Patient Records regulations: The Federal rules restrict any use of the information to criminally investigate or prosecute any alcohol or drug abuse patient.[facility] Reason for Visit (unrecogniz ed section and content) Reason Comments Physical Patient requesting c omprehensive physical. Reports she will need Rx refills for Gabapenting and Adderall (see med list). Reason Comments Anxiety Reason Comments Refill Request Reason Comments Follow Up Patient reports that she is feeling depressed. States she would like Rx refills during this visit. Reason Comments BH consult Reason Comments Medication Request Reason Comments Patient Update Reason Onset Date Comments Refill Request 06/09/2023 Reason Comments Medication Problem Reason Onset Date Comments Refill Request 05/22/2023 Reason Comments Appointment Reason Onset Date Comments Refill Request 08/27/2023 Refill Request 08/28/2023 FOR RECORDS PERTAINING TO PATIENTS WHO ARE OR HAVE BEEN ENROLLED IN A CHEMICAL DEPENDENCY/SUBSTANCEABUSE PROGRAM, SOME INFORMATION MAY BE OMITTED. This clinical summary was aggregated from multiple sources. Caution should be exercised in using it in the provision of clinical care. This summary normalizes information from multiple sources, and as a consequence, information in this document may materially change the coding, format and clinical context of patient data. In addition, data may be omitted in some cases. CLINICAL DECISIONS SHOULD BE BASED ON THE PRIMARY CLINICAL RECORDS. [facility] [employer] [facility]. provides no warranty or guarantee of the accuracy or completeness of information in this document.
--- NOTE | 2023-10-08 12:42 | ED_ITS ---
HPI - Skin/Abscess/Foreign Bdy General Chief complaint: Skin/Abscess/Foreign Body Stated complaint: UPPER EXTREMITY ABSCESS/ANXIETY Time Seen by Provider: 10/08/23 12:41 Source: patient Mode of arrival: walk-in Limitations: no limitations History of Present Illness HPI narrative: or shaking here swelling and pain over her left forearm area. She readily admits to skin popping with narcotic analgesics. She has had previous dental infections but she says she's never had skin infections over trunk torso or extremities. She denies a known history of MRSA. She has not had fever shakes or chills. She is afebrile here. She has no known ALLERGIES to antibiotics. She's noticed the swelling over the last twenty-four hours. She did take a when necessary and tried to open it up and had some pus come out. Related Data Home Medications Medication Instructions Recorded Confirmed divalproex 250 mg tablet,delayed 750 mg PO BEDTIME 06/11/23 09/29/23 release albuterol sulfate 90 mcg/actuation 2 puff inhalation Q6H PRN 07/02/23 09/29/23 aerosol inhaler shortness of breath or wheezing clonazepam 1 mg tablet 0.5 mg PO Q8H PRN insomnia 07/02/23 09/29/23 methadone 5 mg/5 mL oral solution 130 mg PO QDAY 07/02/23 09/29/23 pregabalin 100 mg capsule 100 mg PO Q8H 07/02/23 09/29/23 dextroamphetamine-amphetamine 10 20 mg PO BID 09/09/23 09/09/23 mg tablet quetiapine 150 mg tablet 150 mg PO .qhs 09/09/23 09/29/23 quetiapine 25 mg tablet 50 mg PO QDAY 09/09/23 09/29/23 albuterol sulfate 2.5 mg/3 mL mg 09/29/23 (0.083 %) solution for nebulization Previous Rx's Medication Instructions Recorded clonazepam 0.5 mg tablet (Klonopin) 0.5 mg PO Q8H PRN anxiety #6 tabs 09/10/23 dextroamphetamine-amphetamine 10 20 mg (2 x 10 mg) PO BID #8 tabs 09/10/23 mg tablet (Adderall) Allergies Allergy/AdvReac Type Severity Reaction Status Date / Time No Known Drug Allergies Allergy Verified 09/29/23:12 [facility] Social History Smoking status: Current every day smoker Exam Narrative Exam Narrative: patient awake alert cooperative. Vital signs are noted and are stable. She is afebrile. Examination problem focused exam to the left arm shows there to be a tender fluctuant erythematous area approximately 3-1/2 cm in diameter just distal to the elbow joint with no joint involvement. There is no proximal lymphangitis. There is no axillary adenopathy. Neurovascular examination of the distal extremity is normal. There is a very small amount of drainage from the area. The rest the skin of the trunk torso and integument is normal. She does not appear ill there is no respiratory distress skin is warm and dry with no evidence of hypoperfusion Constitutional Vital Signs, click to edit/add: Last Vital Signs Temp 98.0 F 10/08/23 12:10 Pulse 76 10/08/23 12:10 Resp 16 10/08/23 12:10 BP 160/96 H 10/08/23 12:10 Pulse Ox 96 10/08/23 12:10 O2 Del Method Room Air 10/08/23 12:10 Course Vital Signs Vital signs: Vital Signs Temperature 98.0 F 10/08/23 12:10 Pulse Rate 76 10/08/23 12:10 Respiratory Rate 16 10/08/23 12:10 Blood Pressure 160/96 H 10/08/23 12:10 Pulse Oximetry 96 10/08/23 12:10 Oxygen Delivery Method Room Air 10/08/23 12:10 Temperature 98.0 F 10/08/23 12:10 Pulse Rate 76 10/08/23 12:10 Respiratory Rate 16 10/08/23 12:10 Blood Pressure 160/96 H 10/08/23 12:10 Pulse Oximetry 96 10/08/23 12:10 Oxygen Delivery Method Room Air 10/08/23 12:10 MDM - Skin/Abscess/Foreign Bdy MDM Narrative Medical decision making narrative: patient's white blood cell count comes back at ten and her lactate levels are normal. There is no indication of sepsis. Her initial doses of antibiotic to be intravenous but because of previous substance abuse she has essentially no peripheral vasculature. We did use ultrasound and although we are successful wants to vein did blow. Several attempts were made but she did not want us to continue any further. We emphasized the importance of starting the antibiotic immediately. We did place a drain. A culture was taken of the purulent drainage and discharge. Procedure note after lidocaine one percent anesthesia a 1.5 cm clean incisional wound was made in the area of maximal fluctuance and a large amount of purulent material was recovered. Hemostats were used to break up subcutaneously loculations and even more. Material was expressed. A packing was loosely placed in the wound was dressed. She is to remove the packing tomorrow. This was discussed by me in detail with her. She was told that if she should develop fever or worsening symptomatology to return to emergency room immediately Lab Data Labs: Lab Results 10/08/23 Range/Units 13:10 WBC 10.4 (4.0-11.0) 10^3/uL RBC 4.63 (4.20-5.40) 10^6/uL Hgb 13.8 (12.0-16.0) g/dL Hct 41.2 (36.0-48.0) % MCV 89.0 (81.0-99.0) fL MCH 29.8 (26.7-34.0) pg MCHC 33.5 (29.9-35.2) g/dL RDW 12.0 (11.0-15.0) % Plt Count 264 (150-450) 10^3/uL MPV 11.6 (9.5-13.5) fL Neut % (Auto) 65.1 (43.0-75.0) % Lymph % (Auto) 28.7 (20.5-60.0) % Mckean % (Auto) 4.9 (1.7-12.0) % Eos % (Auto) 0.6 L (0.9-7.0) % Baso % (Auto) 0.5 (0.2-2.0) % Neut # (Auto) 6.8 H (1.4-6.5) 10^3/uL Lymph # (Auto) 3.0 (1.2-3.8) 10^3/uL Mckean # (Auto) 0.5 (0.3-0.8) 10^3/uL Eos # (Auto) 0.1 (0.0-0.7) 10^3/uL Baso # (Auto) 0.1 (0.0-0.1) 10^3/uL Abs Immat Gran (auto) 0.02 (0.00-0.03) 10^3/uL Imm/Tot Granulo (auto) 0.2 (0.0-0.5) % Lactate 0.9 (0.4-2.0) mmol/L Discharge Plan Discharge Chief Complaint: Skin/Abscess/Foreign Body Clinical Impression: Abscess of arm, left Patient Disposition: Home, Self-Care Time of Disposition Decision: 14:24 Prescriptions / Home Meds: No Action divalproex 250 mg tablet,delayed release (DR/EC) 750 mg PO BEDTIME clonazepam 1 mg tablet 0.5 mg PO Q8H PRN (Reason: insomnia) pregabalin 100 mg capsule 100 mg PO Q8H albuterol sulfate 90 mcg/actuation HFA aerosol inhaler 2 puff INHALATION Q6H PRN (Reason: shortness of breath or wheezing) methadone 5 mg/5 mL solution 130 mg PO QDAY dextroamphetamine-amphetamine [Adderall] 10 mg tablet 20 mg PO BID Qty: 8 0RF Rx Instructions: administer doses at least 4-6 hours apart clonazepam [Klonopin] 0.5 mg tablet 0.5 mg PO Q8H PRN (Reason: anxiety) Qty: 6 0RF Rx Instructions: DX: F41.9 albuterol sulfate 2.5 mg /3 mL (0.083 %) solution for nebulization dextroamphetamine-amphetamine 10 mg tablet 20 mg PO BID quetiapine 150 mg tablet 150 mg PO .qhs quetiapine 25 mg tablet 50 mg PO QDAY Rx Instructions: 2pm Additional Instructions: start doxycycline and Keflex today. Return if symptoms worsen as we discussed in detail. Warm compresses. five day refill of Klonopin Stand Alone Forms: Portal Instructions Referrals: RAHEL THORNTON [Primary Care Provider] - 1 week
[2023-10-08] MEDS: CEFAZOLIN SODIUM/DEXTROSE,ISO 1 GM/50 ML IV.SOLN IV (13:23)
[2023-10-08] MEDS: LIDOCAINE HCL 2% 400 MG/20 ML MDV INJ (13:24)
[2023-10-08 13:27] LABS: Basophils Absolute Auto 0.1 10^3/uL (0.0-0.1); Basophils Percent Auto 0.5 % (0.2-2.0); Eosinophils Absolute Auto 0.1 10^3/uL (0.0-0.7); Eosinophils Percent Auto 0.6 % (0.9-7.0); Hematocrit 41.2 % (36.0-48.0); Hemoglobin 13.8 g/dL (12.0-16.0); Immature Granulocytes Abs Auto 0.02 10^3/uL (0.00-0.03); Immature Granulocytes Pct Auto 0.2 % (0.0-0.5); Lymphocytes Percent Auto 28.7 % (20.5-60.0); Mean Corpuscular HGB Conc 33.5 g/dL (29.9-35.2); Mean Corpuscular Hemoglobin 29.8 pg (26.7-34.0); Mean Platelet Volume 11.6 fL (9.5-13.5); Monocytes Absolute Auto 0.5 10^3/uL (0.3-0.8); Monocytes Percent Auto 4.9 % (1.7-12.0); Neutrophils Absolute Auto 6.8 10^3/uL (1.4-6.5); Neutrophils Percent Auto 65.1 % (43.0-75.0); Platelet Count 264 10^3/uL (150-450); Red Blood Count 4.63 10^6/uL (4.20-5.40); White Blood Count 10.4 10^3/uL (4.0-11.0)
[2023-10-08 13:50] LABS: Lactate/Lactic Acid 0.9 mmol/L (0.4-2.0)
== END 2023-10-08 14:33 | disposition home or self-care (01) ==
PROVIDERS: Emergency Provider Emergency Medicine Emergency Medical Services; PCP Nurse Practitioner Family
DX: L02.414 Cutaneous abscess of left upper limb (principal); Z86.14 Personal history of Methicillin resistant Staphylococcus aureus infection; F17.200 Nicotine dependence, unspecified, uncomplicated; F19.21 Other psychoactive substance dependence, in remission
CPT/HCPCS: 10060; 36415; 83605; 85025; 87070; 87150; 87186; 96365; 99284

== ENCOUNTER 2023-11-21 16:17 | Emergency (ER) | payer OTHER, SELFPAY ==
[2023-11-21 16:20] VITALS: BP 130/102; PULSE 84; RESP 18; TEMP 36.6; O2SAT 100; BMI 25.7
--- OUTSIDE RECORDS SUMMARY | 2023-11-21 16:24 | XMS_ITS | CCD ---
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 Name Role Phone LUCAS HOFFMANN Primary Care Unavailable JETHRO MOONEY Attending Unavailable Unavailable Primary Care Provider UnavailJOSE Schulz Referring Unavailable PARINJA, BRET Attending Unavailable PARINJA, BRET Admitting Unavailable TEAGAN, CON S Consulting Unavailable DYLAN LIAO Consulting Unavailable ANGELICA NEWMAN Consulting Unavailable PARINJA, BRET Admitting Unavailable PARINJA, BRET Attending Unavailable TEAGAN, CON S Consulting Unavailable NANCY RODRIGUEZ Primary Care Physician Jeanna Medina Unavailable Unavailable DO Rachael Reyes Emergency Provider ERNESTINE Rodriguez Primary Care Provider [phone] Cris PENA Primary Care Physician [phone] DO Rachael Reyes Emergency Provider [phone] RUIZ Pena Primary Care Provider [phone] DO Nito Walton Emergency Provider [phone] DO Rachael Reyes Emergency Provider [phone] RUIZ Pena Primary Care Provider [phone] DO Nito Walton Emergency Provider DO Jose Moses Emergency Provider MD Bobo Shields Admit Provider MD Bobo Shields Attending Provider MISC, DR AGARWAL Primary Care Unavailable JANET ., VIRGILIO Admitting Unavailable JANET Gambino, VIRGILIO Attending Unavailable JANET ., VIRGILIO Consulting Unavailable AMAYA BRANCH Consulting Unavailable MIAH, DR SULTANA Gallardo Admitting Unavailable MISC, DR AGARWAL Primary Care Unavailable MIAH, DR SULTANA Gallardo Attending Unavailable MIAH, DR SULTANA Gallardo Consulting Unavailable HAY ., DR LEMA Consulting Unavailable ROWLEYDEBRA BOYCE Consulting Unavailable SOPHY, DR STACI Medina Attending [...] Consulting Unavailable MD Farhad Landon Emergency Provider Caitlin Cheatham APRN.CNP Primary Care Provider RUIZ Pena Primary Care Provider DO Leonard Salazar Emergency Provider DO Rachael Reyes Emergency Provider [phone] NON STAFF Primary Care Provider UnavailJOSE Burns Emergency Provider Unavailable Primary Care Provider UnavailCAITLIN Diaz Referring Unavailable LINDEN, CAITLIN Primary Care Unavailable ISACC REDMOND Attending Unavailable DO Rachael Reyes Emergency Provider [phone] MD Luis Armando Hendrix Emergency Provider [phone] GHASSAN CARRASCO Attending Unava TRACE Patrick Primary Care Carolai MD Bobo Alvarado Admit Provider MD Bobo Shields Attending Provider [phone] AKBAR KOCH Attending Unavailable MUHA, CAITLIN Referring Unavailable MUHA, CAITLIN Primary Care Unavailable MUHA, CAITLIN Attending Unavailable MUHA, CAITLIN Referring Unavailable MUHA, CAITLIN Primary Care Unavailable CHUCK GALINDO Attending Unavailable MUHA, CAITLIN Primary Care Unavailable MUHA, CAITLIN Attending Unavailable NON STAFF Primary Care Provider UnavailMD Bobo Wong Admit Provider MD Bobo Shields Attending Provider RUIZ Pena Primary Care Provider DO Rachael Reyes Emergency Provider RUIZ Pena Primary Care Provider MD Claudio Dee Attending Provider MD Chucky Dueñas Jr Emergency Provider Christian Locke Attending Unavailable Derrell Orantes Attending Unavailable Derrell Orantes Attending Unavailable Christian Locke Attending Unavailable Christian Locke Attending Unavailable DoDO Norma fisher Attending Unavailable DokkenDO Kaylniurka Gallardo Attending Unavailable Cris PENA Attending Unavailable MAGALIE Cris E Attending Unavailable Derrell Orantes Attending Unavailable NANCY RODRIGUEZ Attending Unavailable MAGALIE Cris E Attending Unavailable Cris PENA Attending Unavailable Cris PENA E Attending Unavailable MAGALIE Cris E Attending Unavailable MAGALIE Cris E Attending Unavailable MAGALIE Cris E Attending Unavailable Zahraa Connors Attending Unavailable Jacqueline Marquez Attending Unavailable Heather Valenzuela Attending Unavailable MD Bobo Shields Admit Provider [phone] MD Bobo Shields Attending Provider [phone] Cris Pena Primary Care Unavailable Tupa, Rachael M Attending Unavailable Tupa, Rachael M Admitting Unavailable Robuck, Cris Primary Care Unavailable Tupa, Rachael M Attending Unavailable Tupa, Rachael M Admitting Unavailable LuizTori sheahman Attending Unavailab le Luiz, Claudio Admitting Unavailab le Robuck, Cris Primary Care Unavailable Robuck, Cris Primary Care Unavailable Tupa, Rachael M Attending Unavailable Tupa, Rachael M Admitting Unavailable Robuck, Cris Primary Care Unavailable KeisterLeonard A Attending Unavailable Keister, Leonard A Admitting Unavailable Robuck, Cris Primary Care Unavailable Tupa, Rachael M Attending Unavailable Tupa, Rachael M Admitting Unavailable Cornelius, Bobo Admitting Unavailable Cornelius, Bobo Attending Unavailable Robuck, Cris Primary Care Unavailable Cornelius, Bobo Attending Unavailable Cornelius, Bobo Admitting Unavailable NON STAFF Primary Care Unavailable Cornelius, Bobo Attending Unavailable Cornelius, Bobo Admitting Unavailable Robuck, Cris Primary Care Unavailable Destiny Ruiz Consulting Unavailable Stacey Lynne Consulting Unavailable Marjorie Hollingsworth Consulting Unavailable Geraldine Hernandez Consulting Unavailable Maddy Harrington Consulting Unavailable Ruth Sauer Consulting Unavailable Marivel Garcia Consulting Unavailable Rene Jeff Consulting Unavailable Elias Olmos Consulting Unavailable Hugo Perez Consulting UnavailVirgilio Argueta Consulting Unavailable Rizwana Mercer Consulting Unavailable Darlin Abdi Consulting UnavailRaquel Aviles Consulting Unavailable Ja Duron Consulting Unavailable Anthony Valencia Consulting Unavailable Tomas Olivier Consulting Unavailable Farhad Guzman Consulting Unavailable Donis Jerome Consulting Unavailable Arya Lynch Consulting Unavailable Luci Fulton Consulting Unavailable Zachariah Villa Consulting Unavailab Jorge Caballero Consulting Unavailable Emanuel Bui Consulting Unavailable Yash Lindsay Consulting Unavailable Amara Camacho Consulting Unavailable Jerome Powers Consulting Unavailable Dave Durham Consulting Unavailable Andressa Lewis Consulting Unavailable Jeff Colbert Consulting Unavailable Tyrone Zafar Consulting Unavailable Ledy Hendrix Consulting Unavailable Cora Dumont Consulting Unavailable Alaanu Alaa Consulting Unavailable Jose Santoyo Consulting Unavailable Lizzette Tripp Consulting Unavailable Maverick Lopez Consulting Unavailable Lucila Blanton Unavailable Luis Armando Hendrix Attending Unavailable Luis Armando Hendrix Admitting Unavailable NON STAFF Primary Care Unavailable NON STAFF Primary Care Unavailable Rachael Reyes Attending Unavailable Rachael Reyes Admitting Unavailable Eriberto Sheppard Admitting Unavailable Eriberto Sheppard Attending Unavailable NON STAFF Primary Care Unavailable Nito Walton Attending Unavailable Nito Walton Admitting Unavailable Cris Pena Primary Care Unavailable Cris Pena Primary Care Unavailable Rachael Reyes Attending Unavailable Rachael Reyes Admitting Unavailable Farhad Landon Admitting Unavailable Cris Pena Primary Care Unavailable Farhad Landon Attending Unavailable Medications Current Medications Medication Drug Class(es) Dates Sig (Normalized) Sig (Original) albuterol 0.83 mg/ml inhalation solution (20 sources) beta2-Adrenergic Agonist Start: 10-02-2022 take 2.5 mg by inhalation every six hours for wheezing albuterol 0.083% Inh Vera 3 mL 2.5 mg, 3 mL, Inhalation, q6hr for wheezing, 60 EA, Refill(s) 1, [facility] #[id number], 167, cm, 10/02/22 14:11:00 EST, Height/Length Dosing, [...] q6hr for wheezing, 60 EA, Refill(s) 1, [facility] #[id number], 165, cm, 11/01/21 14:58:00 EST, Height/Length Dosing, [...] Inhaler 0 07/09/2015 07/18/2020 Discontinued (LIST CLEANUP) atomoxetine 25 mg oral capsule (1 source) Norepinephrine Reuptake Inhibitor Start: 10-21-2023 take 25 mg by mouth once daily Atomoxetine Active 25 MG PO Daily 15 October 21, 2023 12:00am 120 actuat budesonide 0.18 mg/actuat dry powder inhaler (5 sources) Corticosteroid Start: 10-02-2022 Pulmicort Flexhaler 180 mcg/inh Powder = 2 inh, Inhalation, BID, # 1 EA, Refills(s) 10, Pharmacy: [facility] #[id number], 167, cm, 10/02/22 14:11:00 EST, Height/Length Dosing, 70, kg, 10/02/22 14:11:00 EST, Weight Dosing Start Date: 10/02/22 Status: Ordered Start: 04-22-2022 Pulmicort Flex haler 180 mcg/inh Powder = 2 inh, Inhalation, BID, # 1 EA, Refills(s) 10, Pharmacy: [facility] #[id number], 165, cm, 11/01/21 14:58:00 EST, Height/Length Dosing, [...] tongue daily. 0 07/18/2020 Discontinued (Alternate therapy) cephalexin 500 mg oral capsule (13 sources) Cephalosporin Antibacterial Start: 10-09-2023 take 500 mg by mouth four times daily Cephalexin Active 500 MG PO Four times daily October 09, 2023 12:00am Start: 01-15-2023 End: 02-03-2023 take 500 mg by mouth every twelve hours Cephalexin Discontinued 500 MG PO Every 12 hours 6 3 January 14, 2023 11:00pm February 03, 2023 3:00pm Start: 04-24-2022 End: 05-01-2022 take 1 capsule by mouth every twelve hours Keflex 500 mg Cap 500 mg = 1 cap(s), Oral, q12hr, X 7 day(s), # 14 cap(s), Refills(s) 0, Pharmacy: [facility] #[id number], 165, cm, 04/24/22 13:10:00 EDT, Height/Length Dosing, 70.8, kg, 04/24/22 13:10:00 EDT, Weight Dosing Start Date: 04/24/22 Stop Date: 05/01/22 Status: Ordered doxycycline hyclate 100 mg oral capsule (1 source) Tetracycline-class Drug Start: 10-09-2023 take 100 mg by mouth twice daily Doxycycline Hyclate Active 100 MG PO Twice daily October 09, 2023 12:00am DULoxetine 30 mg delayed release oral capsule (8 sources) Serotonin and Norepinephrine Reuptake Inhibitor Start: 10-21-2023 take 30 mg by mouth once daily Duloxetine Active 30 MG PO Daily 15 October 21, 2023 12:00am Start: 10-21-2023 take 60 mg by mouth once daily at bedtime Duloxetine Active 60 MG PO Daily at bedtime 15 October 21, 2023 12:00am Start: 07-13-2023 End: 10-09-2023 take 30 mg by mouth twice daily Duloxetine Discontinue d 30 MG PO Twice daily 60 July 12, 2023 11:00pm October 09, 2023 2:07am ergocalciferol 1.25 mg oral capsule (20 sources) Provitamin D2 Compound Start: 10-15-2023 take 1250 ug by mouth every week Ergocalciferol (Vitamin D2) Active 1250 MCG PO Q7D 3 October 15, 2023 12:00am Start: 12-08-2019 End: 07-17-2020 take 36654 [IU] by mouth every week Ergocalciferol (Vitamin D2) Discontinued 54883 UNIT PO every week 4 December 08, 2019 12:00am July 17, 2020 10:04pm Start: 11-07-2019 End: 12-08-2019 take 38943 [IU] by mouth every week Ergocalciferol (Vitamin D2) Discontinued 72057 UNIT PO every week November 07, 2019 12:00am December 08, 2019 1:42pm on Start: 11-07-2019 End: 12-08-2019 take 13634 [IU] by mouth every week Ergocalciferol (Vitamin D2) Discontinued 61695 UNIT PO every week November 07, 2019 1:00am December 08, 2019 2:42pm on Start: 11-03-2019 End: 11-07-2019 Ergocalciferol (Vitamin D2) Discontinued 14328 UNIT PO Th@0900 November 03, 2019 12:00am November 07, 2019 2:44pm Start: 11-03-2019 End: 11-07-2019 Ergocalciferol (Vitamin D2) Discontinued 24741 UNIT PO Th@0900 November 03, 2019 1:00am November 07, 2019 3:44pm methadone hydrochloride 40 mg tablet for oral suspension (20 sources) Opioid Agonist Start: 10-09-2023 take 140 mg by mouth once daily Methadone Active 140 MG PO Daily October 09, 2023 12:00am Start: 07-13-2023 End: 10-09-2023 take 10 mg by mouth once daily Methadone (Methadose) 1 0 mg/mL Concentrate Discontinued 135 MG PO Daily 0 July 13, 2023 October 09, 2023 2:07am Start: 11-20-2022 End: 07-13-2023 take 144 mg [...] on above: Take 10 mg by mouth. 24 hr nicotine 0.875 mg/hr transdermal system (20 sources) Cholinergic Nicotinic Agonist Start: 10-21-2023 Nicotine Active 1 EACH TRANSDERML Daily October 21, 2023 12:00am Start: 07-13-2023 End: 10-09-2023 Nicotine (Polacrilex) Discon tinued 2 MG BUCCAL Every 2 hours July 12, 2023 11:00pm October 09, 2023 2:07am Start: 01-15-2023 End: 02-03-2023 Nicotine Discontinued 1 [...] Nicotine Discontinued 1 EACH TRANSDERML Daily 7 November 16, 2019 8:48am November 27, 2019 3:13pm OXcarbazepine 300 mg oral tablet (1 source) Anti-epileptic Agent Start: 10-21-2023 take 300 mg by mouth twice daily Oxcarbazepine Active 300 MG PO Twice daily October 21, 2023 12:00am pregabalin 100 mg oral capsule (20 sources) Start: 10-09-2023 take 100 mg by mouth once daily Pregabalin Active 100 MG PO Daily October 09, 2023 12:00am Start: 06-17-2023 End: 10-09-2023 take 100 mg by mouth three times daily Pregabalin Discontinued 100 MG PO Three times daily July 01, 2023 11:00pm October 09, 2023 2:07am Start: 06-08-2023 End: 07-02-2023 take 75 mg [...] wo(2) times daily. Take 1 capsule by [facility] three times daily for 30 days. Take 1 capsule by [facility] three times daily for 90 days. Take 1 capsule by [facility] three times a day for 30 days. promethazine hydrochloride 25 mg oral tablet (4 sources) Phenothiazine Start: 12-22-19 20 take 1 tablet by mouth every four hours as needed for nausea promethazine 25 mg Tab 25 mg = 1 tab(s), Oral, q4hr, PRN for nausea/vomiting, # 30 tab(s), Refills(s) 0, Pharmacy: [id number], 165, cm, 12/22/19 13:50:00 EDT, Height/Length Measured, 95, kg, 12/22/19 13:50:00 EDT, Weight Measured Start Date: 12/22/19 Status: Ordered End: 07-18-2020 take 1 tablet by mouth every four hours as needed Promethazine HCl (PHENERGAN PO) Take 1 tablet by mouth every 4 hours as needed 0 07/18/2020 Discontinued (Therapy completed) QUEtiapine 200 mg oral tablet (20 sources) Atypical Antipsychotic Start: 10-21-2023 take 200 mg by mouth at bedtime Quetiapine Active 200 MG PO Bedtime 15 October 21, 2023 12:00am Start: 07-13-2023 End: 10-21-2023 take 150 mg by mouth at bedtime Quetiapine Discontinue d 150 MG PO Bedtime October 09, 2023 12:00am October 21, 2023 11:45am Start: 07-13-2023 End: 10-09-2023 take 50 mg by mouth once daily Quetiapine Discontinued 50 MG PO DAILY@1600 July 12, 2023 11:00pm October 09, 2023 2:08am Start: 02-03-2023 End: 06-08-2023 take 50 mg [...] BID, # 60 tab(s), Refills(s) 3, Pharmacy: [facility] #[id number], 165, cm, 11/01/21 14:58:00 EST, Height/Length Dosing, [...] daily Quetiapine Discontinued 50 MG PO Daily 15 March 23, 2021 11:00pm November 20, [...] Discontinue d 100 MG PO DAILY@1500 30 30 December 08, 2019 12:00am March 02, 2020 11:05am Start: 12-08-2019 End: 03-02-2020 take 25 mg by mouth once daily Quetiapine Discontinued 25 MG PO DAILY@1500 30 30 December 08, 2019 12:00am March 02, 2020 11:05am Start: 12-08-2019 End: 03-02-2020 take 450 mg by mouth once daily at bedtime Quetiapine Discontinued 450 MG PO Daily at bedtime 45 30 December 08, 2019 12:00am March 02, 2020 11:05am Start: 11-16-2019 End: 12-08-2019 take 50 mg by mouth once daily Quetiapine Discontinued 50 MG PO DAILY@1500 60 November 16, 2019 12:00am December 08, 2019 1:42pm Start: 11-03-2019 End: 12-08-2019 take 450 mg by mouth once daily at bedtime Quetiapine Discontinued 450 MG PO Daily at bedtime 63 14 November 16, 2019 8:48am December 08, 2019 1:42pm Start: 11-03-2019 End: 03-02-2020 take 400 mg by mouth once daily Quetiapine Discontinue d 400 MG PO Daily 60 30 December 08, 2019 12:00am March 02, [...] above: Take 200 mg by mouth . Completed/Discontinued Medications Medication Drug Class(es) Dates Sig [...] HFA 90 mcg/inh MDI (5 sources) Start: 12-22-2022 take 1 dose by inhalation four times daily albuterol HFA 90 mcg/inh MDI 2 puff(s), Inhalation, QID, 1 EA, Refill(s) 1, [facility] #[id number], 167, cm, 10/02/22 14:11:00 EST, Height/Length Dosing, 70, kg, 10/02/22 14:11:00 EST, Weight Dosing Start Date: 10/02/22 Status: Ordered Start: 01-20-2022 take 1 dose by inhal ation four times daily albuterol HFA 90 mcg/inh MDI 2 puff(s), Inhalation, QID, 1 EA, Refill(s) 1, [facility] #[id number], 165, cm, 11/01/21 14:58:00 EST, Height/Length Dosing, 88, kg, 11/01/21 14:58:00 EST, Weight Dosing Start Date: 01/20/22 Status: Ordered amoxicillin 500 mg / clavulanate 125 mg oral tablet (14 sources) Penicillin-class Antibacterial Start: 03-24-2021 End: 11-20-2022 take 1 tablet by mouth every eight hours Amoxicillin-Pot Clavulanate Discontinued 1 TAB PO Every 8 hours 8 3 March 23, 2021 11:00pm November 20, 2022 3:00am amphetamine aspartate 5 mg / amphetamine sulfate 5 mg / dextroamphetamine saccharate 5 mg / dextroamphetamine sulfate 5 mg oral tablet (20 sources) Central Nervous System Stimulant Start: 10-09-2023 End: 10-15-2023 take 20 mg by mouth once daily Dextroamphetamine-A mphetamine Discontinued 20 MG PO Daily October 09, 2023 12:00am October 15, 2023 1:08pm Start: 07-13-2023 take 20 mg by mouth [...] Discontinu ed 20 MG PO Twice daily 28 January 15, 2023 June 08, 2023 7:19am Start: 11-20-2022 take 20 mg by mouth once daily Dextroamphetamine-Amphetamine Active 20 MG PO Daily November 20, 2022 12:00am Start: 11-06-2022 End: 03-16-2023 take 10 mg by mouth twice daily Adderall 20 mg Tab 10 mg, Oral, BID, 30 day supply, # 60 tab(s), Refills(s) 0, Pharmacy: [facility] [place] #[id number], 167, cm, 11/06/22 14:42:00 EST, Height/Length Dosing, 68.2, kg, 11/06/22 14:42:00 EST, Weight Dosing Start Date: 11/06/22 Status: Ordered Start: 10-10-2022 End: 10-17-2022 take 1 tablet by mouth three times daily amphetamine-dextroamphetamine 10 mg oral tablet 10 mg, 1 tab(s), Oral, TID for 7 day(s), 21 tab(s), [facility](s) 0[id number], 167, cm, 10/10/22 12:48:00 EST, Height/Length Dosing, 72.9, kg, 10/10/22 12:48:00 EST, Weight Dosing Start Date: 10/10/22 Stop Date: 10/17/22 Status: Ordered Start: 01-17-2019 End: 01-20-2019 take 30 mg by mouth twice daily Dextroamphetamine-Amphetamine Discontinu ed 30 MG PO Twice daily January 16, 2019 11:00pm January 20, 2019 5:01pm Comment on above: Take 2 tablets by mo [facility] twice daily for 30 days. Take 10 mg by mouth. Take 1 tablet by [place] twice daily. [facility] [place]. ARIPiprazole 5 mg oral tablet (20 sources) Atypical Antipsychotic Start: End: take 5 mg by mouth once daily Aripiprazole Discontinued 5 MG PO Daily after supper 15 15 March 23, 2021 11:00pm November 20, [...] 2019 1:42pm buprenorphine 8 mg sublingual tablet (16 sources) Partial Opioid Agonist Start: 01-25-2021 End: [...] 25, 2019 12:00am November 03, 2019 1:56pm clonazePAM 0.5 mg oral tablet (20 sources) Benzodiazepine Start: 10-09-2023 End: 10-15-2023 take 0.5 mg by mouth twice daily Clonazepam Discontinued 0.5 MG PO Twice daily October 09, 2023 12:00am October 15, 2023 1:08pm Start: 07-13-2023 take 0.5 mg by mouth [...] Discontinued 0.5 MG PO Twice daily 14 January 21, 2019 6:55am October 25, 2019 [...] for up to 30 days. for insomnia. cyclobenzaprine hydrochloride 10 mg oral tablet (1 source) Muscle Relaxant Start: 008 End: cyclobenzaprine hcl(FLEXERIL 10 MG TAB) Take one(1) tablet three times daily. 0 07/06/2008 03/16/2023 Discontinued (Course of therapy completed) Comment on above: Take one(1) tablet t hree times daily. 12 hr dextromethorphan polistirex 6 mg/ml extended release suspension (14 sources) Uncompetitive H-nwdzjx-P-aspartate Receptor Antagonist, Sigma-1 Agonist Start: 022 End: take 1 mL by mouth every twelve hours Dextromethorphan Polistirex (Delsym 12 Hour) 30 mg/5 mL suspension,extended rel 12 hr Discontinued 10 ML PO Q12H August 08, 2022 11:00pm November 20, 2022 3:00am docusate sodium 100 mg oral capsule (15 sources) Start: 020 End: take 1 capsule by mouth once daily [...] capsule 0 05/08/2019 07/18/2020 Discontinued (LIST CLEANUP) FLUoxetine 40 mg oral capsule (20 sources) Serotonin Reuptake Inhibitor Start: 03-02-2020 End: 07-17-2020 take 80 mg by mouth once daily Fluoxetine Discontinued 80 MG PO Daily 28 March 01, 2020 11:00pm July 17, 2020 [...] 2019 5:13pm furosemide 20 mg oral tablet (14 sources) Loop Diuretic Start: 12-08-2019 End: 02-18-2020 take 20 mg by mouth once daily Furosemide Discontinued 20 MG PO Daily at 0800 December 08, 2019 12:00am February 18, 2020 [...] 600 MG PO Four times daily 56 January 14, 2023 11:00pm February 03, 2023 3:02pm Start: 11-20-2022 End: 01-16-2023 take 400 mg by mouth once Gabapentin Discontinued 400 MG PO As Directed November 20, 2022 3:01am January 16, 2023 7:51am 5x/day Start: 11-06-2022 gabapentin 400 mg Cap See Instructions, 1 cap(s) Oral 5 x per day, # 150 cap(s), Refills(s) 2, Pharmacy: [facility] #[id number], 167, cm, 11/06/22 14:42:00 EST, Height/Length Dosing, 68.2, kg, 11/06/22 14:42:00 EST, Weight Dosing Start Date: 11/06/22 Status: Ordered Start: 10-02-2022 gabapentin 400 mg Cap See Instructions, 1 cap(s) Oral 5 x per day, # 150 cap(s), Refills(s) 2, Pharmacy: [facility] #[id number], 167, cm, 10/02/22 14:11:00 EST, Height/Length Dosing, 70, kg, 10/02/22 14:11:00 EST, Weight Dosing Start Date: 10/02/22 Status: Ordered Start: 02-28-2022 End: 05-29-2022 take 1 tablet by mouth four times daily gabapentin 600 mg Tab 600 mg = 1 tab(s), Oral, QID, X 30 day(s), # 120 tab(s), Refills(s) 2, Pharmacy: [id number], 165, cm, 11/01/21 14:58:00 EST, [...] Discontinued 300 MG PO Three times daily December 08, 2019 12:00am February 18, 2020 [...] 7 days. haloperidol 5 mg oral tablet (7 sources) Typical Antipsychotic Start: 3 End: take 5 mg by mouth twice daily Haloperidol Discontinued 5 MG PO Twice daily June 07, 2023 11:00pm July 13, 2023 8:44am Start: 06-08-2023 take 5 mg by mouth once daily Haloperidol Active 5 MG PO Daily June 08, 2023 12:00am hydrOXYzine hydrochloride 50 mg oral tablet (20 sources) Antihistamine Start: 06-08-2023 End: 10-09-2023 take 50 mg by mouth every six hours Hydroxyzine Hcl Discontinued 50 MG PO Q6H 60 July 13, 2023 8:42am October 09, 2023 2:07am Start: 11-06-2022 take 20 mg by mouth four times daily as needed for anxiety hydrOXYzine hydrochloride 10 mg/5 mL Oral Syrup 20 mg = 10 mL, Oral, QID, PRN as needed for anxiety, # 200 mL, Refills(s) 3, Pharmacy: [facility] #[id number], 167, cm, 11/06/22 14:42:00 EST, Height/Length Dosing, 68.2, kg, 11/06/22 14:42:00 EST, Weight Dosing Start Date: 11/06/22 Status: Ordered Start: 04-22-2022 take 1 capsule by mo [facility] three times daily Vistaril 50 mg Cap 50 mg = 1 cap(s), Oral, TID, # 90 cap(s), Refills(s) 1, Pharmacy: [facility] #[id number], 165, cm, 11/01/21 14:58:00 EST, Height/Length Dosing, [...] Anxiety 30 tablet 0 07/31/2020 08/10/2020 Active levETIRAcetam 500 mg oral tablet (1 source) Start: 07-30-2016 End: 07-18-2020 take 1 tablet by mouth twice daily levETIRAcetam (KEPPRA) 500 MG tablet Take 1 tablet by mouth 2 times daily 60 tablet 4 07/30/2016 07/18/2020 Discontinued (LIST CLEANUP) 24 hr levomilnacipran 40 mg extended release oral capsule (11 sources) Serotonin and Norepinephrine Reuptake Inhibitor Start: 01-15-2023 End: 02-03-2023 take 40 mg by mouth once daily Levomilnacipran Discontinued 40 MG PO Daily January 14, 2023 11:00pm February 03, [...] Discontinued 7.5 MG PO Daily at bedtime February 04, 2021 11:00pm November 20, 2022 [...] With Folic Acid (Thera) 400 mcg Tablet (14 sources) Start: 01-20-2019 End: 10-25-2019 take 1 [...] 2019 1:42pm omeprazole 20 mg oral tablet (14 sources) Proton Pump Inhibitor Start: 11-03-2019 End: [...] 07/18/2020 Discontinued (LIST CLEANUP) polyethylene glycol 3350 23888 mg powder for oral solution (20 sources) [...] 2020 6:32pm predniSONE 10 mg oral tablet (14 sources) Start: 08-09-2022 End: 11-20-2022 take 60 mg by mouth once daily at mealtime Prednisone Discontinued 60 MG PO Daily August 08, 2022 11:00pm November 20, 2022 4:20pm administer with food or milk psyllium 6000 mg powder for oral suspension (14 sources) Start: 12-08-2019 End: 02-18-2020 Psyllium Husk (Konsyl Sugar-Free) 6 gram Powder In Packet Discontinued 1 PACKET PO Daily December 08, 2019 12:00am February 18, 2020 6:32pm sertraline 100 mg oral tablet (15 sources) Serotonin Reuptake Inhibitor Start: 01-25-2021 End: 02-05-2021 take 100 mg by mouth once daily Sertraline Discontinued 100 MG PO Daily January 24, 2021 11:00pm February 05, 2021 11:03am Start: 08-01-2020 take 1 tablet by [place] th once daily sertraline (ZOLOFT) 100 MG tablet Take 1 tablet by mouth daily 30 tablet 3 08/01/2020 Active thiamine 100 mg oral tablet (14 sources) Start: 01-20-2019 End: 10-25-2019 take 100 [...] to six(6) hours as needed for pain. traZODone hydrochloride 50 mg oral tablet (20 sources) Serotonin Reuptake Inhibitor Start: 06-08-2023 End: 10-09-2023 take 50 mg by mouth once daily at bedtime Trazodone Discontinued 50 MG PO Daily at bedtime July 13, 2023 8:42am October 09, 2023 2:08am Start: 01-15-2023 End: 04-19-2023 take 50 mg by mouth once daily at bedtime Trazodone Discontinued 50 MG PO Daily at bedtime January 14, 2023 11:00pm April 19, 2023 6:08pm Start: 01-25-2021 End: 11-20-2022 take 100 mg by mouth once daily at bedtime Trazodone Discontinued 100 MG PO Daily at bedtime January 24, 2021 11:00pm November 20, 2022 3:02am Start: 07-31-2020 take 1 tablet by troy th once daily as needed for sleep traZODone [...] sources) Mood Stabilizer, Anti-epileptic Agent Start: 07-13-2023 End: 10-09-2023 take 1000 mg by mouth once daily at bedtime Divalproex Discontinued 1000 MG PO Daily at bedtime July 12, 2023 11:00pm October 09, 2023 2:07am Start: 06-08-2023 End: 07-13-2023 take 750 mg by mouth once daily at bedtime Divalproex Discontinued 750 MG PO Daily at bedtime June 08, 2023 7:22am July 13, 2023 8:44am Start: 01-12-2023 End: 07-02-2023 take 500 mg by mouth once daily Divalproex Discontinue d 500 MG PO Daily 14 January 15, 2023 11:26am July 02, 2023 [...] Divalproex Discontinued 500 MG PO Every morning 14 March 01, 2020 11:00pm January 25, [...] Take 500 mg by mouth once daily. 24 hr venlafaxine 75 mg extended release oral capsule (20 sources) Serotonin and Norepinephrine Reuptake Inhibitor Start: 3 End: 3 take 75 mg by mouth once daily Venlafaxine Discontinued 75 MG PO Daily July 01, 2023 11:00pm July 13, 2023 8:44am Start: 02-05-2021 End: 11-20-2022 take 150 mg by mouth once daily Venlafaxine Discontinued 150 MG PO Daily February 04, 2021 11:00pm [...] hyperactivity disorder (ADHD), unspecified ADHD type] Onset: 01-12-2023 Chronic Chronic obstructive pulmonary disease and bronchiectasis (18 sources) Bronchitis; Translations: [Bronchitis, not specified as acute or chronic] Onset: 06-19-2022 12-22-2019 Episodic Diabetes mellitus without complication (14 sources) Prediabetes; Translations: [Prediabetes] 11-08-2019 Episodic E [...] Onset: 07-28-2016 09-28-2016 Fluid and electrolyte disorders (16 sources) Hypokalemia; Translations: [Hypokalemia] 10-26-2019 Episodic Hepatitis (6 sources) Chronic hepatitis C; Translations: [Chronic viral hepatitis C] Onset: 11-06-2022 12-23-2013 Chronic Immunizations and screening for infectious disease (16 sources) Patient encounter status; Translations: [Encounter for screening for infections with a predominantly sexual mode of transmission] 02-26-2020 Episodic Inflammatory diseases of female pelvic organs (14 sources) Vaginitis; Translations: [Acute vaginitis] 02-26-2020 Episodic Malaise and fatigue (3 sources) Weakness; Translations: [WEAKNESS] Onset: 01-12-2023 Episodic Mood disorders (20 sources) Mixed bipolar I disorder; 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, severe, with psychosis ] Onset: 04-26-2014 Resolved: 07-23-2020 09-28-2016 Chronic Nausea and vomiting (3 sources) Nausea with vomiting, unspecified; Translations: [Nausea] Onset: 01-13-2023 Episodic Nonspecific chest pain (4 sources) Chest pain, unspecified; Translations: [CHEST PAIN UNSPECIFIED] Onset: 12-15-2022 Episodic Nutritional deficiencies (14 sources) Vitamin D deficiency; Translations: [Vitamin D deficiency, unspecified] 10-26-2019 Chronic Open wounds of extremities (14 sources) Superficial laceration of hand; Translations: [Laceration without foreign body of unspecified hand, initial encounter] 10-26-2019 Episodic Other aftercare (1 source) 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; Translations: [OTH PLASTERER ROUGH CURRENT DRUG THERAPY] Onset: 12-17-2022 Episodic Other connective tissue disease (14 sources) Foot pain; Translations: [Pain in right foot] 11-28-2019 Episodic Other connective tissue disease (2 sources) Myofascial pain syndrome; Translations: [Myalgia, other site] 07-17-2023 Episodic Other female genital disorders (15 sources) Vaginal discharge; Translations: [Other specified noninflammatory disorders of vagina] Onset: 06-23-2014 Resolved: 07-29-2016 07-29-2016 Episodic Other female genital disorders (2 sources) History of abnormal cervical Papanicolaou smear ; Translations: [Personal history of other diseases of the female genital tract] Onset: 07-25-2020 07-26-2020 Episodic Other gastrointestinal disorders (19 sources) Constipation; Translations: [Constipation, unspecified] 05-07-2019 Episodic Other gastrointestinal disorders (1 source) Diarrhea, unspecified; Translations: [DIARRHEA UNSPECIFIED] Onset: 01-13-2023 Episodic Other injuries and conditions due to external causes (1 source) Multiple injuries; Translations: [Unspecified multiple injuries, initial encounter] Onset: 11-10-2022 Episodic Other lower respiratory disease (2 sources) Productive cough ; Translations: [Productive cough] 10-15-2023 Episodic Other nervous system disorders (5 sources) [...] of cervix] Episodic Other upper respiratory infections (14 sources) Upper respiratory infection; Translations: [Acute upper respiratory infection, unspecified] 08-09-2022 Episodic Residual codes; unclassified (5 sources) Chronic back pain 12-23-2013 Episodic Residual codes; unclassified (14 sources) Edema of extremity; Translations: [Localized edema] 11-28-2019 Episodic Residual codes; unclassified (14 sources) Tobacco user; Translations: [Tobacco use] 01-17-2019 Episodic Residual codes; unclassified (2 sources) H/O: Disorder; Translations: [Personal history of other specified conditions] Onset: 11-06-2022 Episodic Residual codes; unclassified (1 source) Procedure and treatment not carried out because of patient's decision for other reasons; Translations: [PROC AND TX NOT CARRIED OUT PT [facility]SN] Onset: 01-13-2023 Episodic Residual codes; unclassified (2 sources) Tobacco use; Translations: [Tobacco use disorder] Onset: 10-09-2023 10-21-2023 Episodic Schizophrenia and other psychotic disorders (20 sources) Schizophrenia; Translations: [Schizophrenia, unspecified] Onset: 07-29-2016 09-28-2016 Chronic Schizophrenia and other psychotic disorders (14 sources) Acute schizophrenic episode; Translations: [Brief psychotic disorder] 11-09-2019 Episodic Skin and subcutaneous tissue infections (4 sources) Cellulitis and abscess of toe; Translations: [Abscess of skin and/or subcutaneous tissue] Onset: 07-28-2016 09-29-2016 Episodic Spondylosis; intervertebral disc disorders; other back [...] low back pain without sciatica] Onset: 04-16-2023 Unclassified (1 source) Other specified cough; Translations: [Other specified cough] Onset: 10-09-2023 Urinary tract infections (18 sources) Urinary tract infectious disease; Translations: [Urinary tract infection, site not specified] Onset: 04-17-2022 Episodic Viral infection (14 sources) Infection of vagina caused by Human [...] 10-12-2007 07-23-2012 Comment on above: HEPATITIS C Other circulatory disease (1 source) Low blood [...] and behavioral disorders] Onset: 09-26-2016 03-16-2023 Episodic Substance-related disorders (20 sources) Maternal drug use; Translations: [Opioid withdrawal] Onset: 07-28-2016 09-28-2016 Episodic Suicide and intentional self-inflicted injury (20 sources) Suicide attempt ; Translations: [Suicidal thoughts] Onset: 11-10-2022 05-31-2014 Episodic Comment on above: pt. was recently in [facility] 2 weeks ago for attempted suicide and [...] USE UNSP WITHDRAWAL UNSP] Onset: 04-11-2022 Unclassified (6 sources) History of clinical finding in subject; Translations: [History of elopement from health care facility] 06-16-2023 Results Test Name Value Interpretation Reference Range Facil ity Consultation Noteon 10-20-19 Consultation Note [id number]# 1.00TIFF Normal [facility] Aerobic Cultureon 01-05-2024 Aerobic Culture Moderate Normal Respiratory Lanny 2 Days Gram Stain Result 2+ Epithelial Cells 2+ White Blood Cells Rare Gram Positive Bacilli PERFORMED BY: [place] [address] PATHOLOGIST SAFEMAKER DANYELL LIVINGSTON M.D. [facility] Comment on above: Performed By: #### U HCG, URDS, ADDONUAPLUS, CUU #### [facility] [address] [place] [address] Aerobic cultureOrdered By: Cesia Abdi on 10-16-2023 Bacteria identified Aer cx Nom (Unsp spec) 2 Days [facility] Gram Stainon 10-16-2023 Microscopic observation Gram stain Nom (Unsp spec) Gram Stain Result 2+ Epithelial Cells 2+ White Blood Cells Rare Gram Positive Bacilli PERFORMED BY: [place] [address] PATHOLOGIST SAFEMAKER DANYELL LIVINGSTON M.D. [facility] Comment on above: Performed By: #### U HCG, URDS, ADDONUAPLUS, CUU #### [facility] [address] [place] [address] [place] Gram stain for investigation of transfusion reactionOrdered By: Darlin Martin on 10-16-2023 Microscopic observation Gram stain Nom (Unsp spec) [facility] Urinalysison 10-16-2023 Appearance (U) Clear Normal Clear [facility] Comment on above: Order Comment: Comme nt use er lab draw Performed By: #### L IPID, [id number], TSH3 wRFLX #### [facility] [address] [place], [place] [id number] [place] Bilirubin,Urine Negative Normal Negative [facility] Comment on above: Order Comment: Comme nt use er lab draw Performed By: #### L IPID, [id number], TSH3 wRFLX #### [facility] [address] [place], [place] [id number] [place] Glucose Ql (U) Normal Normal Normal [facility] Comment on above: Order Comment: Comme nt use er lab draw Performed By: #### L IPID, [id number], TSH3 wRFLX #### [facility] [address] [place] [address] [place] Ketones Ql (U) Negative Normal Negative [facility] Comment on above: Order Comment: Comme nt use er lab draw Performed By: #### L IPID, [id number], TSH3 wRFLX #### [facility] [address] [place] [address] Leukocyte esterase Test strip Ql (U) Negative Normal Negative [facility] Comment on above: Order Comment: Comme nt use er lab draw Performed By: #### L IPID, [id number], TSH3 wRFLX #### [facility] [address] [place] [address] [place] Nitrite,Urine Negative Normal Negative [facility] Comment on above: Order Comment: Comme nt use er lab draw Performed By: #### L IPID, [id number], TSH3 wRFLX #### [place] [address] [place] Occult Blood,Urine Negative Normal Negative [facility] Comment on above: Order Comment: Comme nt use er lab draw Result Comment: PERF ORMED BY: [place] [address] PATHOLOGIST SAFEMAKER DANYELL LIVINGSTON M.D. Performed By: #### L IPID, [id number], TSH3 wRFLX #### [facility] [address] [place] [address] [place] Protein,Urine Negative Normal Negative [facility] Comment on above: Order Comment: Comme nt use er lab draw Performed By: #### L IPID, [id number], TSH3 wRFLX #### [facility] [address] [place] [address] [place] Specificy [place],Urine 1.017 Normal 1.001-1.030 [facility] Comment on above: Order Comment: Comme nt use er lab draw Performed By: #### L IPID, [id number], TSH3 wRFLX #### [facility] [address] [place] [address] [place] Urobilinogen,Urine Normal Normal Normal [facility] Comment on above: Order Comment: Comme nt use er lab draw Performed By: #### L IPID, [id number], TSH3 wRFLX #### [facility] [address] [place] [address] [place] Automated urine color determ inationOrdered By: Darlin Abdi on 10-15-2023 Color (U) Yellow Normal Yellow [facility] Comment on above: Order Comment: Comme nt use er lab draw Performed By: #### L IPID, [id number], TSH3 wRFLX #### [facility] [address] [place] [address] [place] Bilirubin Test strip Ql (U)O rdered By: Darlin Abdi on 10-15-2023 Bilirubin Ql (U) Negative Negative [facility] Ketones Auto test strip (U) [Mass/Vol]Ordered By: Darlin Abdi on 10-15-2023 Ketones (U) [Mass/Vol] Negative Negative [facility] Nitrite Test strip Ql (U)Ord ered By: Darlin Abdi on 10-15-2023 Nitrite Ql (U) Negative Negative [facility] Protein Auto test strip (U) [Mass/Vol]Ordered By: Darlin Abdi on 10-15-2023 Protein (U) [Mass/Vol] Negative Negative [facility] Specific gravity Auto test s trip (U) [Rel density]Ordered By: Darlin Martin on 10-15-2023 Specific gravity (U) [Rel density] 1.017 1.001-1.030 [facility] Urine clarity by refractomet ry automatedOrdered By: Darlin Abdi on 10-15-2023 Clarity Refractometry automated (U) Clear Clear [facility] Urine glucose measurement by automated test strip (mass/volume)Ordered By: Darlin Abdi on 10-15-2023 Glucose Auto test strip (U) [Mass/Vol] Normal mg/dL Normal [facility] Urine hemoglobin detection b y automated test stripOrdered By: Darlin Martin on 10-15-2023 Hemoglobin Auto test strip Ql (U) Negative Negative [facility] Urine leukocyte esterase det ection by automated test stripOrdered By: Darlin Abdi on 10-15-2023 Leukocyte esterase Auto test strip Ql (U) Negative Negative [facility] Urine pH measurement by auto mated test stripOrdered By: Darlin Abdi on 10-15-2023 pH (U) 6.5 [pH] Normal 5.0-9.0 [facility] Comment on above: Order Comment: Comme nt use er lab draw Performed By: #### L IPID, [id number], TSH3 wRFLX #### [address] Urobilinogen Auto test strip (U) [Mass/Vol]Ordered By: Darlin Abdi on 10-15-2023 Urobilinogen (U) [Mass/Vol] Normal mg/dL Normal [facility] XR chest 2V*on 10-15-2023 XR chest 2V* [facility] [place] [address] [place] [address] XRay Report Signed Patient: Lorna Deutsch MR#: [id number] [birth year] : 1985 Acct:[id number] Age/Sex: 38 / F ADM Date: 10/09/23 Loc: Room: [address] [place] [address] Type: ADM IN Attending Dr: Bobo Shields MD Copies to: MD Darlin Murcia APRN Ordering Provider: Darlin Abdi APRN Date of Service: 10/15/23 XR/XR chest 2V*: cough productive sputum PA AND LATERAL CHEST: CLINICAL HISTORY: Cough and chest congestion. COMPARISON: None There is continued minor peribronchial and interstitial thickening. There is no developing consolidation, effusion or pneumothorax. The cardiac, hilar and mediastinal silhouettes are within normal limits. There is no vascular congestion. The visualized bony thorax is intact. There is air and stool at the splenic flexure. XR/XR chest 2V* IMPRESSION: MILD CHRONIC CHANGES. NO ACUTE CARDIOPULMONARY ABNORMALITY. Impression dictated by: Viviana Bui M.D.10/15/2023 5:44 PM Dictation Location: [place] [address] Transcribed By: [facility] 10/15/231743 Dictated By: Viviana Bui MD 10/15/231742 Signed By: 10/15/231743 Normal [facility] Acetaminophenon 10-09-2023 Acetaminophen [Mass/Vol] 0.1 ug/mL Low 10.0-30.0 [facility] Comment on above: Performed By: #### L IPID, [id number], TSH3 wRFLX #### [facility] [address] [place] [address] Ammoniaon 10-09-2023 Ammonia (P) [Moles/Vol] 27 umol/L Normal 11-35 [facility] Comment on above: Result Comment: PERF ORMED BY: [place] [address] PATHOLOGIST SAFEMAKER DANYELL LIVINGSTON M.D. Performed By: #### L IPID, [id number], TSH3 wRFLX #### [facility] [address] [place] [address] ECG 12 lead ECGon 10-09-2023 ECG 12 lead ECG [facility] [place] [address] [place] [address] Electrocardiograph Report Signed Patient: Lorna Deutsch MR#: [id number] [birth year] : 1985 Acct:[id number] Age/Sex: 38 / F ADM Date: 10/09/23 Loc: Room: [address] [place] [address] Type: ADM IN Attending Dr: Bobo Shields MD Ordering Provider: Chucky Dueñas Jr, MD Date of Service: 10/08/23 ECG/ECG 12 lead ECG: Psychiatric Symptoms Copies to: Test Reason : Blood Pressure : 122/077 mmHG Vent. Rate : 082 BPM Atrial Rate : 082 BPM P-R Int : 140 ms QRS Dur : 100 ms QT Int : 392 ms P-R-T Axes : 071 084 063 degrees QTc Int : 457 ms Normal sinus rhythm Nonspecific T wave abnormality Abnormal ECG When compared with ECG of 03-JUL-2023 09:14, Nonspecific T wave abnormality now evident in Anterior leads Confirmed by AMAYA CARBAJAL DO ([id number]) on 10/11/2023 3:54:57 PM Referred By: Electronically Signed By:AMAYA CARBAJAL DO Transcribed By: MUS Signed By Amaya Carbajal DO 10/11 1554 Normal [facility] Salicylateon 10-09-2023 Salicylate < 1.5 Low 15.0-30.0 [facility] Comment on above: Result Comment: Sonia ents treated with Sulfasalazine may generate a false high result for Salicylate. Performed By: #### L IPID, [id number], TSH3 wRFLX #### [facility] [address] [place] [address] Valproic Acid (in house)on 1 Valproic Acid (in house) < 4.0 Low 50.0-100.0 [facility] Comment on above: Result Comment: Last dose: - PERFORMED BY: [place] [address] PATHOLOGIST SAFEMAKER DANYELL LIVINGSTON M.D. Performed By: #### L IPID, [id number], TSH3 wRFLX #### [facility] [address] [place] [address] Acetaminophen [Mass/volume] in Serum or PlasmaOrdered By: Chucky Dueñas on 10-08-2023 Acetaminophen [Mass/Vol] 0.1 ug/mL 10.0-30.0 [facility] Alanine aminotransferase [En zymatic activity/volume] in Serum or PlasmaOrdered By: Chucky Dueñas on 10-08-2023 ALT [Catalytic activity/Vol] 12 U/L 7-52 [facility] Albumin [Mass/volume] in Ser um or Plasma by Bromocresol green (BCG) dye binding methoOrdered By: Chucky Dueñas on 10-08-2023 Albumin BCG dye [Mass/Vol] 3.9 g/dL 3.5-5.7 [facility] Alkaline phosphatase [Enzyma tic activity/volume] in Serum or PlasmaOrdered By: Chucky Dueñas on 10-08-2023 ALP [Catalytic activity/Vol] 57 U/L 34-104 [facility] Ammonia [Moles/volume] in Pl asmaOrdered By: Chucky Dueñas on 10-08-2023 Ammonia (P) [Moles/Vol] 27 umol/L 11-35 [facility] Amphetamine Screen Ql (U)Ord ered By: Chucky Dueñas on 10-08-2023 Amphetamines Ql (U) Positive Negative [facility] Aspartate aminotransferase [ Enzymatic activity/volume] in Serum or PlasmaOrdered By: hCucky Dueñas on 10-08-2023 AST [Catalytic activity/Vol] 16 U/L 13-39 [facility] Automated erythrocytes count in urine sediment (number/area)Ordered By: Chucky Dueñas on 10-08-2023 RBC Auto (Urine sed) [#/Area] 3-4 [HPF] 0-4 [facility] Automated leukocytes count i n urine sediment (number/area)Ordered By: Chucky Dueñas on 10-08-2023 WBC Auto (Urine sed) [#/Area] 10-19 [HPF] 0-4 [facility] Automated urine hyaline cast s count (number/volume)Ordered By: Chucky Dueñas on 10-08-2023 Hyaline casts Auto (U) [#/Vol] None seen [LPF] 0-1 [facility] Barbiturates [Presence] in U rine by Screen methodOrdered By: Chucky Dueñas on 10-08-2023 Barbiturates Screen Ql (U) Negative Negative [facility] Basophils Auto (Bld) [#/Vol] Ordered By: Chucky Dueñas on 10-08-2023 Basophils (Bld) [#/Vol] 0.1 10*3/uL 0.0-0.2 [facility] Basophils/100 WBC Auto (Bld) Ordered By: Chucky Dueñas on 10-08-2023 Basophils/100 WBC (Bld) 0.7 % . [facility] Benzodiazepines Screen Ql (U )Ordered By: Chucky Dueñas on 10-08-2023 Benzodiazepines Ql (U) Negative [facility] Benzoylecgonine [Presence] i n Urine by Screen methodOrdered By: Chucky Dueñas on 10-08-2023 Benzoylecgonine Screen Ql (U) Negative Negative [facility] Bilirubin Test strip Ql (U)O rdered By: Chucky Dueñas on 10-08-2023 Bilirubin Ql (U) 1+ Negative [facility] Bilirubin.total [Mass/volume ] in Serum or PlasmaOrdered By: Chucky Dueñas on 10-08-2023 Bilirubin [Mass/Vol] 0.3 mg/dL 0.3-1.0 [facility] Calcium [Mass/volume] in Ser um or PlasmaOrdered By: Chucky Dueñas on 10-08-2023 Calcium [Mass/Vol] 9.0 mg/dL 8.6-10.3 [facility] Cannabinoids [Presence] in U rine by Screen methodOrdered By: Chucky Dueñas on 10-08-2023 Cannabinoids Screen Ql (U) Negative Negative [facility] Comment on above: These are unconfirme d results and should not be used for legal purposes. Drug Cut-Off Concentration: AMPH 1000 ng/mL SARA 200 ng/mL MARTÍNEZ 200 ng/mL COCM 300 ng/mL OP 300 ng/mL PCP 25 ng/mL THC 20 ng/mL Carbon dioxide, total [Moles /volume] in Serum or PlasmaOrdered By: Chucky Dueñas on 10-08-2023 CO2 [Moles/Vol] 24.7 mmol/L 21.0-31.0 [facility] Casts typing in urine sedime nt by light microscopyOrdered By: Chucky Dueañs on 10-08-2023 Casts LM Nom (Urine sed) None seen [LPF] None Seen [facility] Chloride [Moles/volume] in S maris or PlasmaOrdered By: Chucky Dueñas on 10-08-2023 Chloride [Moles/Vol] 105 mmol/L 98-107 [facility] Cholesterol [Mass/volume] in Serum or PlasmaOrdered By: Bobo Shields on 10-08-2023 Cholesterol [Mass/Vol] 151 mg/dL 140-200 [facility] Comment on above: Chol less than 200 m g/dl low riskChol 201-239 mg/dl borderline riskChol 240 mg/dl and greater high risk Cholesterol in LDL Calc [Mas s/Vol]Ordered By: Bobo Shields on 10-08-2023 Cholesterol in LDL [Mass/Vol] 87 mg/dL 0-100 [facility] Comment on above: LDL ATP III CLASSIFI CATIONLDL less than 100 mg/dL OptimalLDL 100-129 mg/dL Near or above optimalLDL 130-159 mg/dL Borderline highLDL 160-189 mg/dL HighLDL greater than 189 mg/dL Very high Cholesterol in VLDL Calc [Ma ss/Vol]Ordered By: Bobo Shields on 10-08-2023 Cholesterol in VLDL [Mass/Vol] 29 mg/dL [facility] Color Auto (U)Ordered By: Aries Dueñas on 10-08-2023 Color (U) Dark yellow Yellow [facility] Complete Blood Count Auto Di ffon 10-08-2023 Basophils (Bld) [#/Vol] 0.1 10*3/uL Normal 0.0-0.2 [facility] Comment on above: Result Comment: PERF ORMED BY: [place] [address] PATHOLOGIST SAFEMAKER DANYELL LIVINGSTON M.D. Performed By: #### U HCG, URDS, ADDONUAPLUS, CUU #### [address] Basophils/100 WBC (Bld) 0.7 % Normal . [facility] Comment on above: Performed By: #### U HCG, URDS, ADDONUAPLUS, CUU #### [facility] [address] [place] [address] [place] Eosinophils (Bld) [#/Vol] 0.0 10*3/uL Normal 0.0-0.45 [facility] Comment on above: Performed By: #### U HCG, URDS, ADDONUAPLUS, CUU #### [facility] [address] [place] [address] [place] Eosinophils/100 WBC (Bld) 0.3 % Normal . [facility] Comment on above: Performed By: #### U HCG, URDS, ADDONUAPLUS, CUU #### [address] Erythrocyte distribution width (RBC) [Ratio] 13.0 % Normal 11.9-15.3 [facility] Comment on above: Performed By: #### U HCG, URDS, ADDONUAPLUS, CUU #### [address] Hematocrit (Bld) [Volume fraction] 37.1 % Normal 34.0-46.4 [facility] Comment on above: Performed By: #### U HCG, URDS, ADDONUAPLUS, CUU #### [address] Hemoglobin (Bld) [Mass/Vol] 12.8 g/dL Normal 11.8-15.4 [facility] Comment on above: Performed By: #### U HCG, URDS, ADDONUAPLUS, CUU #### [address] Lymphocytes (Bld) [#/Vol] 3.7 10*3/uL Normal 1.00-4.8 [facility] Comment on above: Performed By: #### U HCG, URDS, ADDONUAPLUS, CUU #### [address] Lymphocytes/100 WBC (Bld) 38.7 % Normal . [facility] Comment on above: Performed By: #### U HCG, URDS, ADDONUAPLUS, CUU #### [address] MCH (RBC) [Entitic mass] 30.3 pg Normal 24.7-34.3 [facility] Comment on above: Performed By: #### U HCG, URDS, ADDONUAPLUS, CUU #### [address] MCV (RBC) [Entitic vol] 87.9 fL Normal 80-100 [facility] Comment on above: Performed By: #### U HCG, URDS, ADDONUAPLUS, CUU #### [address] Mean Corpuscular HGB Conc 34.5 g/dL Normal 32.0-35.0 [facility] Comment on above: Performed By: #### U HCG, URDS, ADDONUAPLUS, CUU #### [facility] [address] [place] [address] [place] Monocytes (Bld) [#/Vol] 0.6 10*3/uL Normal 0.0-0.8 [facility] Comment on above: Performed By: #### U HCG, URDS, ADDONUAPLUS, CUU #### [facility] [address] [place] [address] [place] Monocytes/100 WBC (Bld) 21.04 % High 0.00-20.00 [facility] Comment on above: Result Comment: For adults in ED, MDW > 20.0 may be associated with a higher risk of sepsis during the first 12 hrs of hospital admission Performed By: #### U HCG, URDS, ADDONUAPLUS, CUU #### [facility] [address] [place] [address] [place] Monocytes/100 WBC (Bld) 6.2 % Normal . [facility] Comment on above: Performed By: #### U HCG, URDS, ADDONUAPLUS, CUU #### [facility] [address] [place] [address] [place] Neutrophils (Bld) [#/Vol] 5.1 10*3/uL Normal 1.8-7.7 [facility] Comment on above: Performed By: #### U HCG, URDS, ADDONUAPLUS, CUU #### [facility] [address] [place] [address] [place] Neutrophils/100 WBC (Bld) 54.1 % Normal . [facility] Comment on above: Performed By: #### U HCG, URDS, ADDONUAPLUS, CUU #### [facility] [address] [place] [address] [place] NRBC% 0.2 /100{WBC} Normal 0-0.5 [facility] Comment on above: Performed By: #### U HCG, URDS, ADDONUAPLUS, CUU #### [facility] [address] [place] [address] [place] Platelet mean volume (Bld) [Entitic vol] 8.6 fL Normal 6.3-10.7 [facility] Comment on above: Performed By: #### U HCG, URDS, ADDONUAPLUS, CUU #### [facility] [address] [place] [address] Platelets (Bld) [#/Vol] 371 10*3/uL Normal 150-450 [facility] Comment on above: Performed By: #### U HCG, URDS, ADDONUAPLUS, CUU #### [address] RBC (Bld) [#/Vol] 4.22 10*6/uL Normal 3.60-5.00 [facility] Comment on above: Performed By: #### U HCG, URDS, ADDONUAPLUS, CUU #### [address] WBC (Bld) [#/Vol] 9.5 10*3/uL Normal 3.8-11.6 [facility] Comment on above: Performed By: #### U HCG, URDS, ADDONUAPLUS, CUU #### [address] Comprehensive Metabolic Pane selam 10-08-2023 Albumin [Mass/Vol] 3.9 g/dL Normal 3.5-5.7 [facility] Comment on above: Performed By: #### U HCG, URDS, ADDONUAPLUS, CUU #### [address] Albumin/Globulin [Mass ratio] 1.1 {ratio} Normal [facility] Comment on above: Performed By: #### U HCG, URDS, ADDONUAPLUS, CUU #### [facility] [address] [place] [address] ALP [Catalytic activity/Vol] 57 U/L Normal 34-104 [facility] Comment on above: Performed By: #### U HCG, URDS, ADDONUAPLUS, CUU #### [address] ALT [Catalytic activity/Vol] 12 U/L Normal 7-52 [facility] Comment on above: Performed By: #### U HCG, URDS, ADDONUAPLUS, CUU #### [facility] [address] [place] [address] Anion gap [Moles/Vol] 10.1 mmol/L Normal 6.0-15.0 [facility] Comment on above: Performed By: #### U HCG, URDS, ADDONUAPLUS, CUU #### [address] AST [Catalytic activity/Vol] 16 U/L Normal 13-39 [facility] Comment on above: Performed By: #### U HCG, URDS, ADDONUAPLUS, CUU #### [address] Bilirubin [Mass/Vol] 0.3 mg/dL Normal 0.3-1.0 [facility] Comment on above: Performed By: #### U HCG, URDS, ADDONUAPLUS, CUU #### [facility] [address] [place] [address] Calcium [Mass/Vol] 9.0 mg/dL Normal 8.6-10.3 [facility] Comment on above: Performed By: #### U HCG, URDS, ADDONUAPLUS, CUU #### [address] Chloride [Moles/Vol] 105 mmol/L Normal 98-107 [facility] Comment on above: Performed By: #### U HCG, URDS, ADDONUAPLUS, CUU #### [address] CO2 [Moles/Vol] 24.7 mmol/L Normal 21.0-31.0 [facility] Comment on above: Performed By: #### U HCG, URDS, ADDONUAPLUS, CUU #### [facility] [address] [place] [address] Creatinine [Mass/Vol] 0.78 mg/dL Normal 0.60-1.20 [facility] Comment on above: Performed By: #### U HCG, URDS, ADDONUAPLUS, CUU #### [facility] [address] [place] [address] [place] Creatinine Clr Calc Pharmacy 91.55 [facility] Comment on above: Result Comment: PERF ORMED BY: [place] [address] PATHOLOGIST SAFEMAKER DANYELL LIVINGSTON M.D. Performed By: #### U HCG, URDS, ADDONUAPLUS, CUU #### [place] [address] [place] GFR/1.73 sq M.predicted MDRD (S/P/Bld) [Vol rate/Area] mL/min/{1.73_m2} [facility] Comment on above: Performed By: #### U HCG, URDS, ADDONUAPLUS, CUU #### [place] [address] [place] Globulin (S) [Mass/Vol] 3.4 g/dL [facility] Comment on above: Performed By: #### U HCG, URDS, ADDONUAPLUS, CUU #### [address] Glucose [Mass/Vol] 98 mg/dL Normal 70-100 [facility] Comment on above: Result Comment: [place] Glucose Reference Range is dependent on time and content of last meal. Glucose of more than 200 mg/dL in a nonstressed, ambulatory subject supports the diagnosis of Diabetes Mellitus. ADA recommended reference range Performed By: #### U HCG, URDS, ADDONUAPLUS, CUU #### [place] [address] [place] Potassium [Moles/Vol] 3.8 mmol/L Normal 3.5-5.1 [facility] Comment on above: Performed By: #### U HCG, URDS, ADDONUAPLUS, CUU #### [place] [address] [place] Protein [Mass/Vol] 7.3 g/dL Normal 6.4-8.9 [facility] Comment on above: Performed By: #### U HCG, URDS, ADDONUAPLUS, CUU #### [facility] [address] [place] [address] [place] Sodium [Moles/Vol] 136 mmol/L Normal 136-145 [facility] Comment on above: Performed By: #### U HCG, URDS, ADDONUAPLUS, CUU #### [facility] [address] [place] [address] [place] Urea nitrogen [Mass/Vol] 12 mg/dL Normal 7-25 [facility] Comment on above: Performed By: #### U HCG, URDS, ADDONUAPLUS, CUU #### [facility] [address] [place] [address] Creatinine [Mass/volume] in Serum or PlasmaOrdered By: Chucky Dueñas on 10-08-2023 Creatinine [Mass/Vol] 0.78 mg/dL 0.60-1.20 [facility] Dipstick and Microscopicon 1 12-09-2022 Appearance (U) Turbid Critically abnormal Clear [facility] Comment on above: Order Comment: Comme nt use er lab draw Performed By: #### L IPID, [id number], TSH3 wRFLX #### [facility] [address] [place] [address] [place] Bacteria,Urine 2+ High None Seen [facility] Comment on above: Order Comment: Comme nt use er lab draw Performed By: #### L IPID, [id number], TSH3 wRFLX #### [facility] [address] [place] [address] [place] Bilirubin,Urine 1+ High Negative [facility] Comment on above: Order Comment: Comme nt use er lab draw Performed By: #### L IPID, [id number], TSH3 wRFLX #### [facility] [address] [place] [address] [place] Color (U) Dark Yellow Critically abnormal Yellow [facility] Comment on above: Order Comment: Comme nt use er lab draw Performed By: #### L IPID, [id number], TSH3 wRFLX #### [facility] [address] [place] [address] [place] Glucose Ql (U) Normal Normal Normal [facility] Comment on above: Order Comment: Comme nt use er lab draw Performed By: #### L IPID, [id number], TSH3 wRFLX #### [facility] [address] Hyaline Casts,Urine None Seen Normal 0-1 [facility] Comment on above: Order Comment: Comme nt use er lab draw Performed By: #### L IPID, [id number], TSH3 wRFLX #### [facility] [address] [place] [address] [place] Ketones Ql (U) Trace High Negative [facility] Comment on above: Order Comment: Comme nt use er lab draw Performed By: #### L IPID, [id number], TSH3 wRFLX #### [facility] [address] [place] [address] Leukocyte esterase Test strip Ql (U) 1+ High Negative [facility] Comment on above: Order Comment: Comme nt use er lab draw Performed By: #### L IPID, [id number], TSH3 wRFLX #### [facility] [address] [place] [address] [place] Nitrite,Urine Negative Normal Negative [facility] Comment on above: Order Comment: Comme nt use er lab draw Performed By: #### L IPID, [id number], TSH3 wRFLX #### [facility] [address] [place] [address] [place] Occult Blood,Urine 3+ High Negative [facility] Comment on above: Order Comment: Comme nt use er lab draw Performed By: #### L IPID, [id number], TSH3 wRFLX #### [facility] [address] [place] [address] [place] Other Casts,Urine None Seen Normal None Seen [facility] Comment on above: Order Comment: Comme nt use er lab draw Performed By: #### L IPID, [id number], TSH3 wRFLX #### [facility] [address] [place] [address] [place] pH (U) 5.5 [pH] Normal 5.0-9.0 [facility] Comment on above: Order Comment: Comme nt use er lab draw Performed By: #### L IPID, [id number], TSH3 wRFLX #### [facility] [address] [place] [address] Protein (U) [Mass/Vol] 100 mg/dL High Negative [facility] Comment on above: Order Comment: Comme nt use er lab draw Performed By: #### L IPID, [id number], TSH3 wRFLX #### [facility] [address] [place] [address] [place] RBC,Urine 3-4 Normal 0-4 [facility] Comment on above: Order Comment: Comme nt use er lab draw Performed By: #### L IPID, [id number], TSH3 wRFLX #### [facility] [address] [place] [address] Specificy [place],Urine 1.036 High 1.001-1.030 [facility] Comment on above: Order Comment: Comme nt use er lab draw Performed By: #### L IPID, [id number], TSH3 wRFLX #### [facility] [address] [place] [address] Squamous Epithelial Cell,Urine Innumerable High 0-2 [facility] Comment on above: Order Comment: Comme nt use er lab draw Performed By: #### L IPID, [id number], TSH3 wRFLX #### [facility] [address] [place] [address] [place] Urobilinogen,Urine Normal Normal Normal [facility] Comment on above: Order Comment: Comme nt use er lab draw Performed By: #### L IPID, [id number], TSH3 wRFLX #### [facility] [address] [place] [address] [place] WBC,Urine 10-19 High 0-4 [facility] Comment on above: Order Comment: Comme nt use er lab draw Performed By: #### L IPID, [id number], TSH3 wRFLX #### [address] Yeast,Urine None Seen Normal None Seen [facility] Comment on above: Order Comment: Comme nt use er lab draw Performed By: #### L IPID, [id number], TSH3 wRFLX #### [place] [address] [place] Drug Screen,Urineon 10-08-20 23 Amphetamine Screen,Urine Positive High Negative [facility] Comment on above: Performed By: #### L IPID, [id number], TSH3 wRFLX #### [address] Barbiturate Screen,Urine Negative Normal Negative [facility] Comment on above: Performed By: #### L IPID, [id number], TSH3 wRFLX #### [place] [address] [place] Benzodiazepines Screen,Urine Negative Normal Negative [facility] Comment on above: Performed By: #### L IPID, [id number], TSH3 wRFLX #### [address] Cannabinoid Screen,Urine Negative Normal Negative [facility] Comment on above: Result Comment: Thes e are unconfirmed results and should not be used for legal purposes. Drug Cut-Off Concentration: AMPH 1000 ng/mL SARA 200 ng/mL MARTÍNEZ 200 ng/mL COCM 300 ng/mL OP 300 ng/mL PCP 25 ng/mL THC 20 ng/mL PERFORMED BY: [place] [address] PATHOLOGIST SAFEMAKER DANYELL LIVINGSTON M.D. Performed By: #### L IPID, [id number], TSH3 wRFLX #### [address] Cocaine Screen,Urine Negative Normal Negative [facility] Comment on above: Performed By: #### L IPID, [id number], TSH3 wRFLX #### [address] [place] [address] [place] Opiate Screen,Urine Negative Normal Negative [facility] Comment on above: Performed By: #### L IPID, [id number], TSH3 wRFLX #### [facility] [address] Phencyclidine Screen,Urine Negative Normal Negative [facility] Comment on above: Performed By: #### L IPID, [id number], TSH3 wRFLX #### [facility] [address] [place] [address] [place] Eosinophils Auto (Bld) [#/Vo l]Ordered By: Chucky Dueñas on 10-08-2023 Eosinophils (Bld) [#/Vol] 0.0 10*3/uL 0.0-0.45 [facility] Eosinophils/100 WBC Auto (Bl d)Ordered By: Chucky Dueñas on 10-08-2023 Eosinophils/100 WBC (Bld) 0.3 % . [facility] Erythrocyte distribution wid th Auto (RBC) [Ratio]Ordered By: Chucky Dueñas on 10-08-2023 Erythrocyte distribution width (RBC) [Ratio] 13.0 % 11.9-15.3 [facility] Ethanol [Mass/volume] in Ser um or PlasmaOrdered By: Chucky Dueñas on 10-08-2023 Ethanol [Mass/Vol] mg/dL [facility] Ethanol [Mass/Vol] TNP [facility] Comment on above: Test not performed Ethyl Alcohol Profileon 09-12 Ethanol [Mass/Vol] mg/dL Normal [facility] Comment on above: Performed By: #### U HCG, URDS, ADDONUAPLUS, CUU #### [facility] [address] [place] [address] Percent Ethanol Not performed Normal [facility] Comment on above: Result Comment: PERF ORMED BY: [place] [address] PATHOLOGIST SAFEMAKER DANYELL LIVINGSTON M.D. Performed By: #### U HCG, URDS, ADDONUAPLUS, CUU #### [address] [place] [address] [place] Globulin Calc (S) [Mass/Vol] Ordered By: Chucky Dueñas on 10-08-2023 Globulin (S) [Mass/Vol] 3.4 g/dL [facility] Glucose [Mass/volume] in Ser um or PlasmaOrdered By: Chucky Dueñas on 10-08-2023 Glucose [Mass/Vol] 98 mg/dL 70-100 [facility] Comment on above: ADA recommended refe rence rangeRandom Glucose Reference Range is dependent on time and content of last meal. Glucose of more than 200 mg/dL in a nonstressed, ambulatory subject supports the diagnosis of Diabetes Mellitus. HCG ( test) IA.rapi d Ql (U)Ordered By: Chucky Dueñas on 10-08-2023 HCG ( test) Ql (U) Negative [facility] HCG,Urineon 10-08-2023 Beta HCG ( test) Ql (U) Negative Normal [facility] Comment on above: Order Comment: Comme nt use er lab draw Result Comment: PERF ORMED BY: [place] [address] PATHOLOGIST SAFEMAKER DANYELL LIVINGSTON M.D. Performed By: #### L IPID, [id number], TSH3 wRFLX #### [address] Hematocrit Auto (Bld) [Volum e fraction]Ordered By: Chucky Dueñas on 10-08-2023 Hematocrit (Bld) [Volume fraction] 37.1 % 34.0-46.4 [facility] Hemoglobin [Mass/volume] in BloodOrdered By: Chucky Dueñas on 10-08-2023 Hemoglobin (Bld) [Mass/Vol] 12.8 g/dL 11.8-15.4 [facility] Ketones Auto test strip (U) [Mass/Vol]Ordered By: Chucky Dueñas on 10-08-2023 Ketones (U) [Mass/Vol] Trace Negative [facility] Leukocytes [#/volume] correc neema for nucleated erythrocytes in Blood by Automated counOrdered By: Chucky Dueñas on 10-08-2023 WBC corrected for nucl RBC Auto (Bld) [#/Vol] 9.5 10*3/uL 3.8-11.6 [facility] Lipid Panelon 10-08-2023 Cholesterol [Mass/Vol] 151 mg/dL Normal 140-200 [facility] Comment on above: Order Comment: Comme nt use er lab draw Result Comment: Chol less than 200 mg/dl low risk Chol 201-239 mg/dl borderline risk Chol 240 mg/dl and greater high risk Performed By: #### L IPID, [id number], TSH3 wRFLX #### [facility] [address] [place] [id number] [place] Cholesterol in HDL [Mass/Vol] 35 mg/dL Normal 23-92 [facility] Comment on above: Order Comment: Comme nt use er lab draw Result Comment: HDL CHOL ATP-III CLASSIFICATION Cardiovascular Risk HDL > or equal to 60 mg/dL LOW HDL < 40 mg/dL HIGH Performed By: #### L IPID, [id number], TSH3 wRFLX #### [facility] [address] Cholesterol.total/Chol esterol in HDL [Mass ratio] 4.3 {ratio} Normal <5.0 [facility] Comment on above: Order Comment: Comme nt use er lab draw Performed By: #### L IPID, [id number], TSH3 wRFLX #### [facility] [address] [place] [id number] [facility] LDL Cholesterol,Calculated 87 mg/dL Normal 0-100 [facility] Comment on above: Order Comment: Comme nt use er lab draw Result Comment: LDL ATP III CLASSIFICATION LDL less than 100 mg/dL Optimal LDL 100-129 mg/dL Near or above optimal LDL 130-159 mg/dL Borderline high LDL 160-189 mg/dL High LDL greater than 189 mg/dL Very high Performed By: #### L IPID, [id number], TSH3 wRFLX #### [facility] [address] [place] [id number] [place] Triglyceride w/Reflex 147 mg/dL Normal 0-149 [facility] Comment on above: Order Comment: Comme nt use er lab draw Result Comment: TRIG ATP III CLASSIFICATION TRIG less than 150 mg/dL Normal TRIG 150-199 mg/dL Borderline high TRIG 200-500 mg/dL High TRIG greater than 500 mg/dL Very high Standard traceable to the Center for Disease Conrtrol and Prevention (CDC) test method. Performed By: #### L IPID, [id number], TSH3 wRFLX #### [facility] [address] VLDL CHOLESTEROL 29 mg/dL Normal [facility] Comment on above: Order Comment: Comme nt use er lab draw Performed By: #### L IPID, [id number], TSH3 wRFLX #### [facility] [address] Lymphocytes Auto (Bld) [#/Vo l]Ordered By: Chucky Dueñas on 10-08-2023 Lymphocytes (Bld) [#/Vol] 3.7 10*3/uL 1.00-4.8 [facility] Lymphocytes/100 WBC Auto (Bl d)Ordered By: Chucky Dueñas on 10-08-2023 Lymphocytes/100 WBC (Bld) 38.7 % . [facility] MCH Auto (RBC) [Entitic mass ]Ordered By: Chucky Dueñas on 10-08-2023 MCH (RBC) [Entitic mass] 30.3 pg 24.7-34.3 [facility] MCHC Auto (RBC) [Mass/Vol]Or dered By: Chucky Dueñas on 10-08-2023 MCHC (RBC) [Mass/Vol] 34.5 g/dL 32.0-35.0 [facility] MCV Auto (RBC) [Entitic vol] Ordered By: Chucky Dueñas on 10-08-2023 MCV (RBC) [Entitic vol] 87.9 fL 80-100 [facility] Monocyte distribution width [Entitic volume] in Blood by AutomatedOrdered By: Chucky Dueñas on 10-08-2023 Monocyte distribution width Auto (Bld) [Entitic vol] 21.04 % 0.00-20.00 [facility] Comment on above: For adults in ED, MD W > 20.0 may be associated with a higher risk of sepsis during the first 12 hrs of hospital admission Monocytes Auto (Bld) [#/Vol] Ordered By: Chucky Dueñas on 10-08-2023 Monocytes (Bld) [#/Vol] 0.6 10*3/uL 0.0-0.8 [facility] Monocytes/100 WBC Auto (Bld) Ordered By: Chucky Dueñas on 10-08-2023 Monocytes/100 WBC (Bld) 6.2 % . [facility] Neutrophils Auto (Bld) [#/Vo l]Ordered By: Chucky Dueñas on 10-08-2023 Neutrophils (Bld) [#/Vol] 5.1 10*3/uL 1.8-7.7 [facility] Neutrophils/100 WBC Auto (Bl d)Ordered By: Chucky Dueñas on 10-08-2023 Neutrophils/100 WBC (Bld) 54.1 % . [facility] Nitrite Test strip Ql (U)Ord ered By: Chucky Dueñas on 10-08-2023 Nitrite Ql (U) Negative Negative [facility] No Panel InformationOrdered By: Chucky Dueñas on 10-08-2023 Estimated GFR (CKD-EPI) > 60.0 mL/Min [facility] Creatinine Clearance (Chem 91.55 [facility] Nucleated erythrocytes [Pres ence] in Blood by Automated countOrdered By: Chucky Dueñas on 10-08-2023 Nucleated RBC Auto Ql (Bld) 0.2 /100{WBC} 0-0.5 [facility] Opiates [Presence] in Urine by Screen methodOrdered By: Chucky Dueñas on 10-08-2023 Opiates Screen Ql (U) Negative Negative [facility] Phencyclidine Screen Ql (U)O rdered By: Chucky Dueñas on 10-08-2023 Phencyclidine Ql (U) Negative Negative [facility] Platelet mean volume Auto (B ld) [Entitic vol]Ordered By: Chucky Dueñas on 10-08-2023 Platelet mean volume (Bld) [Entitic vol] 8.6 fL 6.3-10.7 [facility] Platelets Auto (Bld) [#/Vol] Ordered By: Chucky Dueñas on 10-08-2023 Platelets (Bld) [#/Vol] 371 10*3/uL 150-450 [facility] Potassium [Moles/volume] in Serum or PlasmaOrdered By: Chucky Dueñas on 10-08-2023 Potassium [Moles/Vol] 3.8 mmol/L 3.5-5.1 [facility] Protein Auto test strip (U) [Mass/Vol]Ordered By: Chucky Dueñas on 10-08-2023 Protein (U) [Mass/Vol] 100 mg/dL Negative [facility] Protein [Mass/volume] in Ser um or PlasmaOrdered By: Chucky Dueñas on 10-08-2023 Protein [Mass/Vol] 7.3 g/dL 6.4-8.9 [facility] RBC Auto (Bld) [#/Vol]Ordere d By: Chucky Dueñas on 10-08-2023 RBC (Bld) [#/Vol] 4.22 10*6/uL 3.60-5.00 [facility] Salicylates [Mass/volume] in Serum or PlasmaOrdered By: Chucky Dueñas on 10-08-2023 Salicylates [Mass/Vol] mg/dL 15.0-30.0 [facility] Comment on above: Patients treated wit h Sulfasalazine may generate a false high result for Salicylate. Serum or plasma albumin/glob ulin mass ratioOrdered By: Chucky Dueñas on 10-08-2023 Albumin/Globulin [Mass ratio] 1.1 {ratio} [facility] Serum or plasma anion gap de terminationOrdered By: Chucky Dueñas on 10-08-2023 Anion gap [Moles/Vol] 10.1 mmol/L 6.0-15.0 [facility] Serum or plasma high density lipoprotein (HDL) cholesterol measurementOrdered By: Bobo Shields on 10-08-2023 Cholesterol in HDL [Mass/Vol] 35 mg/dL 23-92 [facility] Comment on above: HDL CHOL ATP-III CLA SSIFICATION Cardiovascular RiskHDL > or equal to 60 mg/dL LOWHDL < 40 mg/dL HIGH Serum or plasma total choles terol/high density lipoprotein (HDL) cholesterol mass ratOrdered By: Bobo Shields on 10-08-2023 Cholesterol.total/Chol esterol in HDL [Mass ratio] 4.3 {ratio} <5.0 [facility] Sodium [Moles/volume] in Ser um or PlasmaOrdered By: Chucky Dueñas on 10-08-2023 Sodium [Moles/Vol] 136 mmol/L 136-145 [facility] Specific gravity Auto test s trip (U) [Rel density]Ordered By: Chucky Dueñas on 10-08-2023 Specific gravity (U) [Rel density] 1.036 1.001-1.030 [facility] Squamous epithelial cells de tection in urine sediment by light microscopyOrdered By: Chucky Dueñas on 10-08-2023 Epithelial cells.squamous LM Ql (Urine sed) Innumerable [HPF] 0-2 [facility] Thyroid Stim Hormone w/Rflxo n 10-08-2023 Thyroid Stim Hormone w/Rflx 2.23 u[iU]/mL Normal 0.45-5.33 [facility] Comment on above: Order Comment: Comme nt use er lab draw Performed By: #### L IPID, [id number], TSH3 wRFLX #### [facility] [address] Thyrotropin [Units/volume] i n Serum or PlasmaOrdered By: Bobo Shields on 10-08-2023 TSH Qn 2.23 m[IU]/L 0.45-5.33 [facility] Triglyceride [Mass/volume] i n Serum or PlasmaOrdered By: Bobo Shields on 10-08-2023 Triglyceride [Mass/Vol] 147 mg/dL 0-149 [facility] Comment on above: TRIG ATP III CLASSIF ICATIONTRIG less than 150 mg/dL NormalTRIG 150-199 mg/dL Borderline highTRIG 200-500 mg/dL High TRIG greater than 500 mg/dL Very highStandard traceable to the Center for Disease Conrtrol and Prevention (CDC) test method. Urea nitrogen [Mass/volume] in Serum or PlasmaOrdered By: Chucky Dueñas on 10-08-2023 Urea nitrogen [Mass/Vol] 12 mg/dL 7-25 [facility] Urine Cultureon 10-08-2023 Bacteria identified Cx Nom (U) No Growth 2 Days PERFORMED BY: [facility] [address] [place] [address] PATHOLOGIST SAFEMAKER DANYELL LIVINGSTON M.D. Normal [facility] Comment on above: Performed By: #### L IPID, [id number], TSH3 wRFLX #### [facility] [address] Urine bacteria detection by automated methodOrdered By: Chucky Dueñas on 10-08-2023 Bacteria Auto Ql (U) 2+ None Seen [facility] Urine clarity by refractomet ry automatedOrdered By: Chucky Dueñas on 10-08-2023 Clarity Refractometry automated (U) Turbid Clear [facility] Urine culture routineOrdered By: Chucky Dueñas on 10-08-2023 Bacteria identified Cx Nom (U) No Growth 2 Days [facility] Urine glucose measurement by automated test strip (mass/volume)Ordered By: Chucky Dueñas on 10-08-2023 Glucose Auto test strip (U) [Mass/Vol] Normal mg/dL Normal [facility] Urine hemoglobin detection b y automated test stripOrdered By: Chucky Dueñas on 10-08-2023 Hemoglobin Auto test strip Ql (U) 3+ Negative [facility] Urine leukocyte esterase det ection by automated test stripOrdered By: Chucky Dueñas on 10-08-2023 Leukocyte esterase Auto test strip Ql (U) 1+ Negative [facility] Urobilinogen Auto test strip (U) [Mass/Vol]Ordered By: Chucky Dueñas on 10-08-2023 Urobilinogen (U) [Mass/Vol] Normal mg/dL Normal [facility] Valproate [Mass/volume] in S maris or PlasmaOrdered By: Chucky Dueñas on 10-08-2023 Valproate [Mass/Vol] ug/mL 50.0-100.0 [facility] Comment on above: Last dose: - Vitamin D 25 Hydroxy Totalon 10-08-2023 Vitamin D 25 Hydroxy Total 11.9 ng/mL Low 30-100 [facility] Comment on above: Order Comment: Comme nt use er lab draw Result Comment: Hemo lysis is present at a level that could interfere with the result. VITAMIN D STATUS 25(OH)VITAMIN D RANGE (ng/mL) Deficient <20 Insufficient 20 to <30 Sufficient 30 to 100 Reference: Deb MF,Stephanie NC, Ro CORONEL, et al. Evaluation,treatment, and prevention of vitamin D deficiency; an Endocrine Society clinical practice guideline. JCEM. 2010; 96(7):1911-. PERFORMED BY: [facility] [address] [place] [address] PATHOLOGIST SAFEMAKER DANYELL LIVINGSTON M.D. Performed By: #### L IPID, [id number], TSH3 [id number] #### [facility] [address] Vitamin D+Metabolites [Mass/ volume] in Serum or PlasmaOrdered By: Bobo Shields on 10-08-2023 Vitamin D+Metabolites [Mass/Vol] 11.9 ng/mL 30-100 [facility] Comment on above: Hemolysis is present at a level that could interfere with the result.VITAMIN D STATUS 25(OH)VITAMIN D RANGE (ng/mL) Deficient <20 Insufficient 20 to <30Sufficient 30 to 100Reference: Deb MF,Stephanie NC, Ro CORONEL, et al. Evaluation,treatment, and prevention of vitamin D deficiency; an Endocrine Society clinical practice guideline. JCEM. 2010; 96(7):1911-30. WBC Auto (Bld) [#/Vol]Ordere d By: Chucky Dueñas on 10-08-2023 WBC (Bld) [#/Vol] 9.5 10*3/uL 3.8-11.6 [facility] Yeast detection in urine sed iment by light microscopyOrdered By: Chucky Dueñas on 10-08-2023 Yeast LM Ql (Urine sed) None seen [HPF] None Seen [facility] pH Auto test strip (U)Ordere d By: Chucky Dueñas on 10-08-2023 pH (U) 5.5 [pH] 5.0-9.0 [facility] Patient Letter FTon 2022 Patient Letter [facility] [address] [place] [address] September 24, 2023 LORNA DEUTSCH [address] [place] [id number] : 1985 To whom it may concern, [...] office with any questions or concerns at [phone]. Respectfully, ERNESTINE Deshpande [facility] Consent for Treatmenton 08-14 Consent for Treatment [id number] 31 [id number] #1.00TIFF Normal [facility] Discharge Instructionson Discharge Instructions [id number] 14#1.00TIFF [facility] ED Clinical Summaryon 2022 ED Clinical Summary [place] [id number] ED Clinical Summary Person Information Name: LORNA DEUTSCH Annabel/[facility] Age: 38 Years : 1985 Sex: Female Language: Georgian PCP: Cris PENA CNP Marital Status: Visit [...] 09/10/2023 15:57:53 09/10/2023 15:57:53 09/10/2023 15:57:53 ADDRESS: [address] [place] [phone] PHYS DOC NOTES: MEDICAL INFORMATION: Prescriptions Given: [...] With: Address: When: Cris PENA [address] [place] [address] Business (1) In 3 days 09/13/2023 DIAGNOSIS: Anxiety state [facility] ED Note-Physicianon 09-10-20 ED Note-Physician Basic Information Time Seen: Natalya GARCIARicco 09/10/2023 15:32 Chief Complaint patient experiencing increased [...] In 3 days 09/13/2023 EST [address] [place] [id number] [facility] (1) Additional Instructions: Patient Education Generalized Anxiety Disorder, Adult Attestation Patient seen and evaluated by the physician certified surgical tech/first assistant. Attending physician was present in the emergency department and supervised care. This visit was performed by both the physician and an APC. I performed all aspects of the MDM as documented. This report was transcribed using voice recognition software. Every effort was made to ensure accuracy, however, inadvertently computerized educational guidance counselor mistakes may be present. Appropriate healthcare PPE [...] Oral, Lukasz (more content not included)... Normal [facility] Comment on above: Result Comment: Elec [...] increase anxiety. ? Avoid caffeine and certain fhyg-rgv-kfaioze cold medicines. These may make you feel worse. Ask your pharmacist which medicines to issa (more content not included)... Normal [facility] ED Patient Summaryon 023 ED Patient Summary [address] [address] Patient Discharge Instructions Person Information Name: LORNA DEUTSCH Age: 38 Years Arrival Date: 09/10/2023 15:21:39 Discharge Diagnosis: Anxiety state Primary Care Physician: Cris PENA CNP Provider Information Primary Provider: Derrell Orantes DO Advanced Pot Pusher:Ricco Hoang PA-C The exam and treatment you received in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 Performed By: #### L IPID, [id number], TSH3 wRFLX #### [facility] [address] Cholesterol.total/Chol esterol in HDL [Mass ratio] 4.5 {ratio} Normal <5.0 [facility] Comment on above: Performed By: #### L IPID, [id number], TSH3 wRFLX #### [address] LDL Cholesterol,Calculated 111 mg/dL High 0-100 [facility] Comment on above: Result Comment: LDL ATP III CLASSIFICATION LDL less than 100 mg/dL Optimal LDL 100-129 mg/dL Near or above optimal LDL 130-159 mg/dL Borderline high LDL 160-189 mg/dL High LDL greater than 189 mg/dL Very high Performed By: #### L IPID, [id number], TSH3 wRFLX #### [address] Triglyceride w/Reflex 138 mg/dL Normal 0-149 [facility] Comment on above: Result Comment: TRIG ATP III CLASSIFICATION TRIG less than 150 mg/dL Normal TRIG 150-199 mg/dL Borderline high TRIG 200-500 mg/dL High TRIG greater than 500 mg/dL Very high Standard traceable to the Center for Disease Conrtrol and Prevention (CDC) test method. Performed By: #### L IPID, [id number], TSH3 wRFLX #### [address] VLDL CHOLESTEROL 27 mg/dL Normal [facility] Comment on above: Performed By: #### L IPID, [id number], TSH3 wRFLX #### [facility] [address] [place] [address] [place] Serum or plasma high density lipoprotein (HDL) cholesterol measurementOrdered By: Bobo Shields on 07-03-2023 Cholesterol in HDL [Mass/Vol] 40 mg/dL 23- [facility] Comment on above: HDL CHOL ATP-III CLA SSIFICATION Cardiovascular RiskHDL > or equal to 60 mg/dL LOWHDL < 40 mg/dL HIGH Serum or plasma total choles terol/high density lipoprotein (HDL) cholesterol mass ratOrdered By: Bobo Shileds on 07-03-2023 Cholesterol.total/Chol esterol in HDL [Mass ratio] 4.5 {ratio} <5.0 [facility] Thyroid Stim Hormone w/Rflxo n 07-03-2023 Thyroid Stim Hormone w/Rflx 5.18 u[iU]/mL Normal 0.45-5.33 [facility] Comment on above: Performed By: #### L IPID, [id number], TSH3 wRFLX #### [facility] [address] Thyrotropin [Units/volume] i n Serum or PlasmaOrdered By: Bobo Shields on 07-03-2023 TSH Qn 5.18 m[IU]/L 0.45-5.33 [facility] Triglyceride [Mass/volume] i n Serum or PlasmaOrdered By: Bobo Shields on 07-03-2023 Triglyceride [Mass/Vol] 138 mg/dL 0-149 [facility] Comment on above: TRIG ATP III CLASSIF ICATIONTRIG less than 150 mg/dL NormalTRIG 150-199 mg/dL Borderline highTRIG 200-500 mg/dL High TRIG greater than 500 mg/dL Very highStandard traceable to the Center for Disease Conrtrol and Prevention (CDC) test method. Vitamin D 25 Hydroxy Totalon 07-03-2023 Vitamin D 25 Hydroxy Total 17.2 ng/mL Low 30-100 [facility] Comment on above: Result Comment: KAVON MIN D STATUS 25([place])VITAMIN D RANGE (ng/mL) Deficient <20 Insufficient 20 to <30 Sufficient 30 to 100 Reference: Stephanie Guardado, Ro CORONEL, et al. Evaluation,treatment, and prevention of vitamin D deficiency; an Endocrine Society clinical practice guideline. JCEM. 2010; 96(7):1911-30. PERFORMED BY: [facility] [address] [place] [address] PATHOLOGIST SAFEMAKER DANYELL LIVINGSTON M.D. Performed By: #### L IPID, [id number], TSH3 wRFLX #### [facility] [address] Vitamin D+Metabolites [Mass/ volume] in Serum or PlasmaOrdered By: Bobo Shields on 07-03-2023 Vitamin D+Metabolites [Mass/Vol] 17.2 ng/mL 30-100 [facility] Comment on above: VITAMIN D STATUS 25( [place])VITAMIN D RANGE (ng/mL) Deficient <20 Insufficient 20 to <30Sufficient 30 to 100Reference: Stephanie Guardado, Ro CORONEL, et al. Evaluation,treatment, and prevention of vitamin D deficiency; an Endocrine Society clinical practice guideline. JCEM. 2010; 96(7):1911-30. [facility] 06-17-2023 [facility] Telephone ([facility]) LORNA DEUTSCH ([id number]) 1985 F Date Time Provider Department 06/17/23 AKBAR KOCH During your visit today, we recorded the following information about you: Sandra Garcia 06/17/2023 1:30 PM Signed Lorna Deutsch is calling Akbar Koch MD today. Patient states that her pain is not controlled on the Lyrica. Patient is asking for an increase in the Lyrica to 150 mg or to switch back to Neurontin 800 mg. Patient has been identified by name and birthdate. Duration of symptoms: N/A Person calling: self Call patient at: [phone] Was an appointment scheduled: Kaity Danielson Gaurav Torrez OCCA 06/17/2023 1:34 PM Signed Please advise thank you CLARA Aguilar June 17, 2023 1:34 PM Marvin Sanchez 06/18/2023 1:59 PM Signed The patient called back to ask if the script could be sent to another pharmacy. pregabalin (LYRICA) 100 mg capsule e- [facility] 1985 [place] [address] - [address] [facility] [phone] 1985 Marvin Sanchez 06/18/2023 1:59 PM Signed Addended by: MARVIN SANCHEZ on: 06/18/2023 01:59 PM Modules accepted: Orders Allergies As of Date: 06/17/2023 (No Known Allergies) Date Reviewed: 04/24/2023 Reviewed by: Caitlin Cheatham APRN.[employer] - Fully Assessed Reason for Visit: Medication [...] schizophrenia (HCC) [F20.0] 03/16/2023 Encounter Status:Closed by GAURAV TORREZ on 06/17/[address] [facility] Alanine aminotransferase [En zymatic activity/volume] in Serum or PlasmaOrdered By: Luis Armando Hendrix on 06-08-2023 ALT [Catalytic activity/Vol] 7 U/L 7-52 [facility] Albumin [Mass/volume] in Ser um or Plasma by Bromocresol green (BCG) dye binding methoOrdered By: Luis Armando Hendrix on 06-08-2023 Albumin BCG dye [Mass/Vol] 3.6 g/dL 3.5-5.7 [facility] Alkaline phosphatase [Enzyma tic activity/volume] in Serum or PlasmaOrdered By: Luis Armando Hendrix on 06-08-2023 ALP [Catalytic activity/Vol] 35 U/L 34-104 [facility] Amphetamine Screen Ql (U)Ord ered By: Luis Armando Hendrix on 06-08-2023 Amphetamines Ql (U) Negative Negative [facility] Aspartate aminotransferase [ Enzymatic activity/volume] in Serum or PlasmaOrdered By: Luis Armando Hendrix on 06-08-2023 AST [Catalytic activity/Vol] 9 U/L 13-39 [facility] Automated erythrocytes count in urine sediment (number/area)Ordered By: Luis Armando Hendrix on 06-08-2023 RBC Auto (Urine sed) [#/Area] 1-2 [HPF] 0-4 [facility] Automated leukocytes count i n urine sediment (number/area)Ordered By: Luis Armando Hendrix on 06-08-2023 WBC Auto (Urine sed) [#/Area] Innumerable [HPF] 0-4 [facility] Barbiturates [Presence] in U rine by Screen methodOrdered By: Luis Armando Hendrix on 06-08-2023 Barbiturates Screen Ql (U) Negative Negative [facility] Basophils Auto (Bld) [#/Vol] Ordered By: Luis Armando Hendrix on 06-08-2023 Basophils (Bld) [#/Vol] 0.0 10*3/uL 0.0-0.2 [facility] Basophils/100 WBC Auto (Bld) Ordered By: Luis Armando Hendrix on 06-08-2023 Basophils/100 WBC (Bld) 0.7 % . [facility] Benzodiazepines Screen Ql (U )Ordered By: Luis Armando Hendrix on 06-08-2023 Benzodiazepines Ql (U) Negative Negative [facility] Benzoylecgonine [Presence] i n Urine by Screen methodOrdered By: Luis Armando Hendrix on 06-08-2023 Benzoylecgonine Screen Ql (U) Negative Negative [facility] Bilirubin Test strip Ql (U)O rdered By: Luis Armando Hendrix on 06-08-2023 Bilirubin Ql (U) Negative Negative [facility] Bilirubin.total [Mass/volume ] in Serum or PlasmaOrdered By: Luis Armando Hendrix on 06-08-2023 Bilirubin [Mass/Vol] 0.3 mg/dL 0.3-1.0 [facility] Calcium [Mass/volume] in Ser um or PlasmaOrdered By: Luis Armando Hendrix on 06-08-2023 Calcium [Mass/Vol] 8.9 mg/dL 8.6-10.3 [facility] Cannabinoids [Presence] in U rine by Screen methodOrdered By: Luis Armando Hendrix on 06-08-2023 Cannabinoids Screen Ql (U) Negative Negative [facility] Comment on above: These are unconfirme d results and should not be used for legal purposes. Drug Cut-Off Concentration: AMPH 1000 ng/mL SARA 200 ng/mL MARTÍNEZ 200 ng/mL COCM 300 ng/mL OP 300 ng/mL PCP 25 ng/mL THC 20 ng/mL Carbon dioxide, total [Moles /volume] in Serum or PlasmaOrdered By: Luis Armando Hendrix on 06-08-2023 CO2 [Moles/Vol] 31.1 mmol/L 21.0-31.0 [facility] Chloride [Moles/volume] in S maris or PlasmaOrdered By: Luis Armando Hendrix on 06-08-2023 Chloride [Moles/Vol] 106 mmol/L 98-107 [facility] Color Auto (U)Ordered By: Angelic Hendrix on 06-08-2023 Color (U) Yellow Yellow [facility] Complete Blood Count Auto Di ffon 06-08-2023 Basophils (Bld) [#/Vol] 0.0 10*3/uL Normal 0.0-0.2 [facility] Comment on above: Result Comment: PERF ORMED BY: [place] [address] PATHOLOGIST SAFEMAKER DANYELL LIVINGSTON M.D. Performed By: #### U HCG, URDS, ADDONUAPLUS, CUU #### [facility] [address] [place] [address] Basophils/100 WBC (Bld) 0.7 % Normal . [facility] Comment on above: Performed By: #### U HCG, URDS, ADDONUAPLUS, CUU #### [facility] [address] [place] [address] Eosinophils (Bld) [#/Vol] 0.1 10*3/uL Normal 0.0-0.45 [facility] Comment on above: Performed By: #### U HCG, URDS, ADDONUAPLUS, CUU #### [facility] [address] [place] [address] Eosinophils/100 WBC (Bld) 2.2 % Normal . [facility] Comment on above: Performed By: #### U HCG, URDS, ADDONUAPLUS, CUU #### [facility] [address] [place] [address] Erythrocyte distribution width (RBC) [Ratio] 13.5 % Normal 11.9-15.3 [facility] Comment on above: Performed By: #### U HCG, URDS, ADDONUAPLUS, CUU #### [facility] [address] [place] [address] Hematocrit (Bld) [Volume fraction] 39.0 % Normal 34.0-46.4 [facility] Comment on above: Performed By: #### U HCG, URDS, ADDONUAPLUS, CUU #### [address] Hemoglobin (Bld) [Mass/Vol] 13.0 g/dL Normal 11.8-15.4 [facility] Comment on above: Performed By: #### U HCG, URDS, ADDONUAPLUS, CUU #### [address] Lymphocytes (Bld) [#/Vol] 3.0 10*3/uL Normal 1.00-4.8 [facility] Comment on above: Performed By: #### U HCG, URDS, ADDONUAPLUS, CUU #### [address] Lymphocytes/100 WBC (Bld) 58.8 % Normal . [facility] Comment on above: Performed By: #### U HCG, URDS, ADDONUAPLUS, CUU #### [address] MCH (RBC) [Entitic mass] 30.0 pg Normal 24.7-34.3 [facility] Comment on above: Performed By: #### U HCG, URDS, ADDONUAPLUS, CUU #### [address] MCV (RBC) [Entitic vol] 89.7 fL Normal 80-100 [facility] Comment on above: Performed By: #### U HCG, URDS, ADDONUAPLUS, CUU #### [address] Mean Corpuscular HGB Conc 33.4 g/dL Normal 32.0-35.0 [facility] Comment on above: Performed By: #### U HCG, URDS, ADDONUAPLUS, CUU #### [address] Monocytes (Bld) [#/Vol] 0.5 10*3/uL Normal 0.0-0.8 [facility] Comment on above: Performed By: #### U HCG, URDS, ADDONUAPLUS, CUU #### [facility] [address] [place] [address] [place] Monocytes/100 WBC (Bld) 19.94 % Normal 0.00-20.00 [facility] Comment on above: Performed By: #### U HCG, URDS, ADDONUAPLUS, CUU #### [facility] [address] [place] [address] [place] Monocytes/100 WBC (Bld) 9.4 % Normal . [facility] Comment on above: Performed By: #### U HCG, URDS, ADDONUAPLUS, CUU #### [facility] [address] [place] [address] Neutrophils (Bld) [#/Vol] 1.5 10*3/uL Low 1.8-7.7 [facility] Comment on above: Performed By: #### U HCG, URDS, ADDONUAPLUS, CUU #### [facility] [address] [place] [address] Neutrophils/100 WBC (Bld) 28.9 % Normal . [facility] Comment on above: Performed By: #### U HCG, URDS, ADDONUAPLUS, CUU #### [facility] [address] [place] [address] [place] NRBC% 0.1 /100{WBC} Normal 0-0.5 [facility] Comment on above: Performed By: #### U HCG, URDS, ADDONUAPLUS, CUU #### [facility] [address] [place] [address] [place] Platelet mean volume (Bld) [Entitic vol] 9.2 fL Normal 6.3-10.7 [facility] Comment on above: Performed By: #### U HCG, URDS, ADDONUAPLUS, CUU #### [facility] [address] [place] [address] [place] Platelets (Bld) [#/Vol] 164 10*3/uL Normal 150-450 [facility] Comment on above: Performed By: #### U HCG, URDS, ADDONUAPLUS, CUU #### [facility] [address] RBC (Bld) [#/Vol] 4.35 10*6/uL Normal 3.60-5.00 [facility] Comment on above: Performed By: #### U HCG, URDS, ADDONUAPLUS, CUU #### [facility] [address] [place] [address] WBC (Bld) [#/Vol] 5.1 10*3/uL Normal 3.8-11.6 [facility] Comment on above: Performed By: #### U HCG, URDS, ADDONUAPLUS, CUU #### [facility] [address] [place] [address] Comprehensive Metabolic Pane selam 06-08-2023 Albumin [Mass/Vol] 3.6 g/dL Normal 3.5-5.7 [facility] Comment on above: Performed By: #### U HCG, URDS, ADDONUAPLUS, CUU #### [facility] [address] [place] [address] Albumin/Globulin [Mass ratio] 1.2 {ratio} Normal [facility] Comment on above: Performed By: #### U HCG, URDS, ADDONUAPLUS, CUU #### [facility] [address] [place] [address] ALP [Catalytic activity/Vol] 35 U/L Normal 34-104 [facility] Comment on above: Performed By: #### U HCG, URDS, ADDONUAPLUS, CUU #### [facility] [address] [place] [address] ALT [Catalytic activity/Vol] 7 U/L Normal 7-52 [facility] Comment on above: Performed By: #### U HCG, URDS, ADDONUAPLUS, CUU #### [facility] [address] [place] [address] Anion gap [Moles/Vol] 6.7 mmol/L Normal 6.0-15.0 [facility] Comment on above: Performed By: #### U HCG, URDS, ADDONUAPLUS, CUU #### [facility] [address] AST [Catalytic activity/Vol] 9 U/L Low 13-39 [facility] Comment on above: Performed By: #### U HCG, URDS, ADDONUAPLUS, CUU #### [facility] [address] [place] [address] Bilirubin [Mass/Vol] 0.3 mg/dL Normal 0.3-1.0 [facility] Comment on above: Performed By: #### U HCG, URDS, ADDONUAPLUS, CUU #### [facility] [address] [place] [address] Calcium [Mass/Vol] 8.9 mg/dL Normal 8.6-10.3 [facility] Comment on above: Performed By: #### U HCG, URDS, ADDONUAPLUS, CUU #### [facility] [address] [place] [address] Chloride [Moles/Vol] 106 mmol/L Normal 98-107 [facility] Comment on above: Performed By: #### U HCG, URDS, ADDONUAPLUS, CUU #### [facility] [address] [place] [address] CO2 [Moles/Vol] 31.1 mmol/L High 21.0-31.0 [facility] Comment on above: Performed By: #### U HCG, URDS, ADDONUAPLUS, CUU #### [facility] [address] [place] [address] Creatinine [Mass/Vol] 0.66 mg/dL Normal 0.60-1.20 [facility] Comment on above: Performed By: #### U HCG, URDS, ADDONUAPLUS, CUU #### [facility] [address] [place] [address] Creatinine Clr Calc Pharmacy 104.00 Normal [facility] Comment on above: Result Comment: PERF ORMED BY: [place] [address] PATHOLOGIST SAFEMAKER DANYELL LIVINGSTON M.D. Performed By: #### U HCG, URDS, ADDONUAPLUS, CUU #### [place] [address] [place] GFR/1.73 sq M.predicted MDRD (S/P/Bld) [Vol rate/Area] mL/min/{1.73_m2} [facility] Comment on above: Performed By: #### U HCG, URDS, ADDONUAPLUS, CUU #### [place] [address] [place] Globulin (S) [Mass/Vol] 2.9 g/dL [facility] Comment on above: Performed By: #### U HCG, URDS, ADDONUAPLUS, CUU #### [address] Glucose [Mass/Vol] 90 mg/dL Normal 70-100 [facility] Comment on above: Result Comment: [facility] Glucose Reference Range is dependent on time and content of last meal. Glucose of more than 200 mg/dL in a nonstressed, ambulatory subject supports the diagnosis of Diabetes Mellitus. ADA recommended reference range Performed By: #### U HCG, URDS, ADDONUAPLUS, CUU #### [place] [address] [place] Potassium [Moles/Vol] 3.8 mmol/L Normal 3.5-5.1 [facility] Comment on above: Performed By: #### U HCG, URDS, ADDONUAPLUS, CUU #### [place] [address] [place] Protein [Mass/Vol] 6.5 g/dL Normal 6.4-8.9 [facility] Comment on above: Performed By: #### U HCG, URDS, ADDONUAPLUS, CUU #### [place] [address] [place] Sodium [Moles/Vol] 140 mmol/L Normal 136-145 [facility] Comment on above: Performed By: #### U HCG, URDS, ADDONUAPLUS, CUU #### [facility] [address] Urea nitrogen [Mass/Vol] 17 mg/dL Normal 7-25 [facility] Comment on above: Performed By: #### U HCG, URDS, ADDONUAPLUS, CUU #### [facility] [address] Creatinine [Mass/volume] in Serum or PlasmaOrdered By: Luis Armando Hendrix on 06-08-2023 Creatinine [Mass/Vol] 0.66 mg/dL 0.60-1.20 [facility] Dipstick and Microscopicon 0 06-08-2023 Appearance (U) Turbid Critically abnormal Clear [facility] Comment on above: Order Comment: Name Collection Type:: Clean-Voided Midstream Performed By: #### U HCG, URDS, ADDONUAPLUS, CUU #### [facility] [address] [place] [address] Bacteria,Urine 4+ High None Seen [facility] Comment on above: Order Comment: Name Collection Type:: Clean-Voided Midstream Performed By: #### U HCG, URDS, ADDONUAPLUS, CUU #### [facility] [address] [place] [address] Bilirubin,Urine Negative Normal Negative [facility] Comment on above: Order Comment: Name Collection Type:: Clean-Voided Midstream Performed By: #### U HCG, URDS, ADDONUAPLUS, CUU #### [facility] [address] [place] [address] [place] Color (U) Yellow Normal Yellow [facility] Comment on above: Order Comment: Name Collection Type:: Clean-Voided Midstream Performed By: #### U HCG, URDS, ADDONUAPLUS, CUU #### [facility] [address] [place] [address] [place] Glucose Ql (U) Normal Normal Normal [facility] Comment on above: Order Comment: Name Collection Type:: Clean-Voided Midstream Performed By: #### U HCG, URDS, ADDONUAPLUS, CUU #### [facility] [address] [place] [address] Hyaline Casts,Urine 0-8 Normal 0-8 [facility] Comment on above: Order Comment: Name Collection Type:: Clean-Voided Midstream Performed By: #### U HCG, URDS, ADDONUAPLUS, CUU #### [facility] [address] [place] [address] Ketones Ql (U) Negative Normal Negative [facility] Comment on above: Order Comment: Name Collection Type:: Clean-Voided Midstream Performed By: #### U HCG, URDS, ADDONUAPLUS, CUU #### [address] Leukocyte esterase Test strip Ql (U) 4+ High Negative [facility] Comment on above: Order Comment: Name Collection Type:: Clean-Voided Midstream Performed By: #### U HCG, URDS, ADDONUAPLUS, CUU #### [address] Nitrite,Urine Positive High Negative [facility] Comment on above: Order Comment: Name Collection Type:: Clean-Voided Midstream Performed By: #### U HCG, URDS, ADDONUAPLUS, CUU #### [address] Occult Blood,Urine Trace High Negative [facility] Comment on above: Order Comment: Name Collection Type:: Clean-Voided Midstream Result Comment: PERF ORMED BY: [place] [address] PATHOLOGIST SAFEMAKER DANYELL LIVINGSTON M.D. Performed By: #### U HCG, URDS, ADDONUAPLUS, CUU #### [address] pH (U) 6.0 [pH] Normal 5.0-9.0 [facility] Comment on above: Order Comment: Name Collection Type:: Clean-Voided Midstream Performed By: #### U HCG, URDS, ADDONUAPLUS, CUU #### [facility] [address] [place] [address] [place] Protein,Urine Trace High Negative [facility] Comment on above: Order Comment: Name Collection Type:: Clean-Voided Midstream Performed By: #### U HCG, URDS, ADDONUAPLUS, CUU #### [facility] [address] [place] [address] RBC,Urine 1-2 Normal 0-4 [facility] Comment on above: Order Comment: Name Collection Type:: Clean-Voided Midstream Performed By: #### U HCG, URDS, ADDONUAPLUS, CUU #### [address] Specificy [place],Urine 1.018 Normal 1.001-1.030 [facility] Comment on above: Order Comment: Name Collection Type:: Clean-Voided Midstream Performed By: #### U HCG, URDS, ADDONUAPLUS, CUU #### [address] Squamous Epithelial Cell,Urine 10-19 High 0-2 [facility] Comment on above: Order Comment: Name Collection Type:: Clean-Voided Midstream Performed By: #### U HCG, URDS, ADDONUAPLUS, CUU #### [facility] [address] [place] [address] Urobilinogen,Urine Normal Normal Normal [facility] Comment on above: Order Comment: Name Collection Type:: Clean-Voided Midstream Performed By: #### U HCG, URDS, ADDONUAPLUS, CUU #### [facility] [address] [place] [address] WBC,Urine Innumerable High 0-4 [facility] Comment on above: Order Comment: Name Collection Type:: Clean-Voided Midstream Performed By: #### U HCG, URDS, ADDONUAPLUS, CUU #### [facility] [address] [place] [address] Yeast,Urine None Seen Normal None Seen [facility] Comment on above: Order Comment: Name Collection Type:: Clean-Voided Midstream Result Comment: PERF ORMED BY: [place] [address] PATHOLOGIST SAFEMAKER DANYELL LIVINGSTON M.D. Performed By: #### U HCG, URDS, ADDONUAPLUS, CUU #### [place] [address] [place] Drug Screen,Urineon 06-08-20 Amphetamine Screen,Urine Negative Normal Negative [facility] Comment on above: Performed By: #### U HCG, URDS, ADDONUAPLUS, CUU #### [place] [address] [place] Barbiturate Screen,Urine Negative Normal Negative [facility] Comment on above: Performed By: #### U HCG, URDS, ADDONUAPLUS, CUU #### [place] [address] [place] Benzodiazepines Screen,Urine Negative Normal Negative [facility] Comment on above: Performed By: #### U HCG, URDS, ADDONUAPLUS, CUU #### [place] [address] [place] Cannabinoid Screen,Urine Negative Normal Negative [facility] Comment on above: Result Comment: Thes e are unconfirmed results and should not be used for legal purposes. Drug Cut-Off Concentration: AMPH 1000 ng/mL SARA 200 ng/mL MARTÍNEZ 200 ng/mL COCM 300 ng/mL OP 300 ng/mL PCP 25 ng/mL THC 20 ng/mL PERFORMED BY: [place] [address] PATHOLOGIST SAFEMAKER DANYELL LIVINGSTON M.D. Performed By: #### U HCG, URDS, ADDONUAPLUS, CUU #### [place] [address] [place] Cocaine Screen,Urine Negative Normal Negative [facility] Comment on above: Performed By: #### U HCG, URDS, ADDONUAPLUS, CUU #### [place] [address] [place] Opiate Screen,Urine Negative Normal Negative [facility] Comment on above: Performed By: #### U HCG, URDS, ADDONUAPLUS, CUU #### [facility] [address] [place] [address] Phencyclidine Screen,Urine Negative Normal Negative [facility] Comment on above: Performed By: #### U HCG, URDS, ADDONUAPLUS, CUU #### [facility] [address] [place] [address] Eosinophils Auto (Bld) [#/Vo l]Ordered By: Luis Armando Hendrix on 06-08-2023 Eosinophils (Bld) [#/Vol] 0.1 10*3/uL 0.0-0.45 [facility] Eosinophils/100 WBC Auto (Bl d)Ordered By: Luis Armando Hendrix on 06-08-2023 Eosinophils/100 WBC (Bld) 2.2 % . [facility] Erythrocyte distribution wid th Auto (RBC) [Ratio]Ordered By: Luis Armando Hendrix on 06-08-2023 Erythrocyte distribution width (RBC) [Ratio] 13.5 % 11.9-15.3 [facility] Ethanol [Mass/volume] in Ser um or PlasmaOrdered By: Luis Armando Hendrix on 06-08-2023 Ethanol [Mass/Vol] mg/dL [facility] Ethanol [Mass/Vol] TNP [facility] Comment on above: Test not performed Ethyl Alcohol Profileon 05-13 Ethanol [Mass/Vol] mg/dL Normal [facility] Comment on above: Performed By: #### U HCG, URDS, ADDONUAPLUS, CUU #### [facility] [address] [place] [address] Percent Ethanol Not performed Normal [facility] Comment on above: Result Comment: PERF ORMED BY: [place] [address] PATHOLOGIST SAFEMAKER DANYELL LIVINGSTON M.D. Performed By: #### U HCG, URDS, ADDONUAPLUS, CUU #### [facility] [address] [place] [address] Globulin Calc (S) [Mass/Vol] Ordered By: Luis Armando Hendrix on 06-08-2023 Globulin (S) [Mass/Vol] 2.9 g/dL [facility] Glucose [Mass/volume] in Ser um or PlasmaOrdered By: Luis Armando Hendrix on 06-08-2023 Glucose [Mass/Vol] 90 mg/dL 70-100 [facility] Comment on above: ADA recommended refe rence rangeRandom Glucose Reference Range is dependent on time and content of last meal. Glucose of more than 200 mg/dL in a nonstressed, ambulatory subject supports the diagnosis of Diabetes Mellitus. HCG ( test) IA.rapi d Ql (U)Ordered By: Luis Armando Hendrix on 06-08-2023 HCG ( test) Ql (U) Negative [facility] HCG,Urineon 06-08-2023 Beta HCG ( test) Ql (U) Negative Normal [facility] Comment on above: Result Comment: PERF ORMED BY: [facility] [address] [place] [address] PATHOLOGIST SAFEMAKER DANYELL LIVINGSTON M.D. Performed By: #### U HCG, URDS, ADDONUAPLUS, CUU #### [facility] [address] Hematocrit Auto (Bld) [Volum e fraction]Ordered By: Luis Armando Hendrix on 06-08-2023 Hematocrit (Bld) [Volume fraction] 39.0 % 34.0-46.4 [facility] Hemoglobin [Mass/volume] in BloodOrdered By: Luis Armando Hendrix on 06-08-2023 Hemoglobin (Bld) [Mass/Vol] 13.0 g/dL 11.8-15.4 [facility] Ketones Auto test strip (U) [Mass/Vol]Ordered By: Luis Armando Hendrix on 06-08-2023 Ketones (U) [Mass/Vol] Negative Negative [facility] - UrinalysisOrder ed By: Luis Armando Hendrix on 06-08-2023 Hyaline casts LM Ql (Urine sed) 0-8 [LPF] 0-8 [facility] Leukocytes [#/volume] correc neema for nucleated erythrocytes in Blood by Automated counOrdered By: Luis Armando Hendrix on 06-08-2023 WBC corrected for nucl RBC Auto (Bld) [#/Vol] 5.1 10*3/uL 3.8-11.6 [facility] Lymphocytes Auto (Bld) [#/Vo l]Ordered By: Luis Armando Hendrix on 06-08-2023 Lymphocytes (Bld) [#/Vol] 3.0 10*3/uL 1.00-4.8 [facility] Lymphocytes/100 WBC Auto (Bl d)Ordered By: Luis Armando Hendrix on 06-08-2023 Lymphocytes/100 WBC (Bld) 58.8 % . [facility] MCH Auto (RBC) [Entitic mass ]Ordered By: Luis Armando Hnedrix on 06-08-2023 MCH (RBC) [Entitic mass] 30.0 pg 24.7-34.3 [facility] MCHC Auto (RBC) [Mass/Vol]Or dered By: Luis Armando Hendrix on 06-08-2023 MCHC (RBC) [Mass/Vol] 33.4 g/dL 32.0-35.0 [facility] MCV Auto (RBC) [Entitic vol] Ordered By: Luis Armando Hendrix on 06-08-2023 MCV (RBC) [Entitic vol] 89.7 fL 80-100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 [Presence] in U rine by Screen methodOrdered By: Leonard Salazar on 02-03-2023 Barbiturates Screen Ql (U) Negative Negative [facility] Basophils Auto (Bld) [#/Vol] Ordered By: Leonard Salazar on 02-03-2023 Basophils (Bld) [#/Vol] 0.0 10*3/uL 0.0-0.2 [facility] Basophils/100 WBC Auto (Bld) Ordered By: Leonard Salazar on 02-03-2023 Basophils/100 WBC (Bld) 0.4 % . [facility] Benzodiazepines Screen Ql (U )Ordered By: Leonard Salazar on 02-03-2023 Benzodiazepines Ql (U) Negative Negative [facility] Benzoylecgonine [Presence] i n Urine by Screen methodOrdered By: Leonard Salazar on 02-03-2023 Benzoylecgonine Screen Ql (U) Negative Negative [facility] Bilirubin Test strip Ql (U)O rdered By: Leonard Salazar on 02-03-2023 Bilirubin Ql (U) Negative Negative [facility] Bilirubin.total [Mass/volume ] in Serum or PlasmaOrdered By: Leonard Salazar on 02-03-2023 Bilirubin [Mass/Vol] 0.3 mg/dL 0.3-1.0 [facility] Calcium [Mass/volume] in Ser um or PlasmaOrdered By: Leonard Salazar on 02-03-2023 Calcium [Mass/Vol] 8.4 mg/dL 8.6-10.3 [facility] Cannabinoids [Presence] in U rine by Screen methodOrdered By: Leonard Salazar on 02-03-2023 Cannabinoids Screen Ql (U) Negative Negative [facility] Comment on above: These are unconfirme d results and should not be used for legal purposes. Drug Cut-Off Concentration: AMPH 1000 ng/mL SARA 200 ng/mL MARTÍNEZ 200 ng/mL COCM 300 ng/mL OP 300 ng/mL PCP 25 ng/mL THC 20 ng/mL Carbon dioxide, total [Moles /volume] in Serum or PlasmaOrdered By: Leonard Salazar on 02-03-2023 CO2 [Moles/Vol] 27.6 mmol/L 21.0-31.0 [facility] Casts typing in urine sedime nt by light microscopyOrdered By: Leonard Salazar on 02-03-2023 Casts LM Nom (Urine sed) None seen [LPF] None Seen [facility] Chloride [Moles/volume] in S maris or PlasmaOrdered By: Leonard Salazar on 02-03-2023 Chloride [Moles/Vol] 104 mmol/L 98-107 [facility] Color Auto (U)Ordered By: Micky Salazar on 02-03-2023 Color (U) Yellow Yellow [facility] Complete Blood Count Auto Di ffon 02-03-2023 Basophils (Bld) [#/Vol] 0.0 10*3/uL Normal 0.0-0.2 [facility] Comment on above: Result Comment: PERF ORMED BY: [place] [address] PATHOLOGIST SAFEMAKER DANYELL LIVINGSTON M.D. Performed By: #### E FLOWER CMP, CBC #### [facility] [address] [place] [address] Basophils/100 WBC (Bld) 0.4 % Normal . [facility] Comment on above: Performed By: #### E FLOWER CMP, CBC #### [facility] [address] [place] [address] [place] Eosinophils (Bld) [#/Vol] 0.1 10*3/uL Normal 0.0-0.45 [facility] Comment on above: Performed By: #### E FLOWER CMP, CBC #### [facility] [address] [place] [address] [place] Eosinophils/100 WBC (Bld) 0.9 % Normal . [facility] Comment on above: Performed By: #### E FLOWER, CMP, CBC #### [facility] [address] Erythrocyte distribution width (RBC) [Ratio] 14.0 % Normal 11.9-15.3 [facility] Comment on above: Performed By: #### E FLOWER, CMP, CBC #### [facility] [address] [place] [address] Hematocrit (Bld) [Volume fraction] 39.9 % Normal 34.0-46.4 [facility] Comment on above: Performed By: #### E FLOWER, CMP, CBC #### [address] Hemoglobin (Bld) [Mass/Vol] 13.4 g/dL Normal 11.8-15.4 [facility] Comment on above: Performed By: #### E FLOWER, CMP, CBC #### [address] Lymphocytes (Bld) [#/Vol] 2.8 10*3/uL Normal 1.00-4.8 [facility] Comment on above: Performed By: #### E FLOWER, CMP, CBC #### [address] Lymphocytes/100 WBC (Bld) 29.7 % Normal . [facility] Comment on above: Performed By: #### E FLOWER CMP, CBC #### [address] MCH (RBC) [Entitic mass] 31.0 pg Normal 24.7-34.3 [facility] Comment on above: Performed By: #### E FLOWER CMP, CBC #### [address] MCV (RBC) [Entitic vol] 92.6 fL Normal 80-100 [facility] Comment on above: Performed By: #### E FLOWER CMP, CBC #### [address] Mean Corpuscular HGB Conc 33.5 g/dL Normal 32.0-35.0 [facility] Comment on above: Performed By: #### E FLOWER, CMP, CBC #### [address] Monocytes (Bld) [#/Vol] 0.5 10*3/uL Normal 0.0-0.8 [facility] Comment on above: Performed By: #### E FLOWER, CMP, CBC #### [place] [address] [place] Monocytes/100 WBC (Bld) 20.22 % High 0.00-20.00 [facility] Comment on above: Result Comment: For adults in ED, MDW > 20.0 may be associated with a higher risk of sepsis during the first 12 hrs of hospital admission Performed By: #### E MICHELLE CRENSHAW, CBC #### [facility] [address] Monocytes/100 WBC (Bld) 5.0 % Normal . [facility] Comment on above: Performed By: #### E MICHELLE CRENSHAW, CBC #### [facility] [address] Neutrophils (Bld) [#/Vol] 6.1 10*3/uL Normal 1.8-7.7 [facility] Comment on above: Performed By: #### E MICHELLE CRENSHAW, CBC #### [facility] [address] Neutrophils/100 WBC (Bld) 64.0 % Normal . [facility] Comment on above: Performed By: #### E MICHELLE CRENSHAW, CBC #### [facility] [address] NRBC% 0.1 /100{WBC} Normal 0-0.5 [facility] Comment on above: Performed By: #### E MICHELLE CRENSHAW, CBC #### [facility] [address] Platelet mean volume (Bld) [Entitic vol] 8.5 fL Normal 6.3-10.7 [facility] Comment on above: Performed By: #### E MICHELLE CRENSHAW, CBC #### [facility] [address] [place] [address] [place] Platelets (Bld) [#/Vol] 252 10*3/uL Normal 150-450 [facility] Comment on above: Performed By: #### E MICHELLE CRENSHAW, CBC #### [facility] [address] [place] [address] [place] RBC (Bld) [#/Vol] 4.31 10*6/uL Normal 3.60-5.00 [facility] Comment on above: Performed By: #### E MICHELLE CRENSHAW, CBC #### [facility] [address] [place] [address] WBC (Bld) [#/Vol] 9.5 10*3/uL Normal 3.8-11.6 [facility] Comment on above: Performed By: #### E MICHELLE CRENSHAW, CBC #### [facility] [address] [place] [address] Comprehensive Metabolic Pane selam 02-03-2023 Albumin [Mass/Vol] 3.8 g/dL Normal 3.5-5.7 [facility] Comment on above: Performed By: #### E MICHELLE CRENSHAW, CBC #### [address] Albumin/Globulin [Mass ratio] 1.3 {ratio} Normal [facility] Comment on above: Performed By: #### E MICHELLE CRENSHAW, CBC #### [address] ALP [Catalytic activity/Vol] 34 U/L Normal 34-104 [facility] Comment on above: Performed By: #### E MICHELLE CRENSHAW, CBC #### [address] ALT [Catalytic activity/Vol] 7 U/L Normal 7-52 [facility] Comment on above: Performed By: #### E MICHELLE CRENSHAW, CBC #### [facility] [address] [place] [address] Anion gap [Moles/Vol] 9.3 mmol/L Normal 6.0-15.0 [facility] Comment on above: Performed By: #### E MICHELLE CRENSHAW, CBC #### [facility] [address] [place] [address] AST [Catalytic activity/Vol] 13 U/L Normal 13-39 [facility] Comment on above: Performed By: #### E MICHELLE CRENSHAW, CBC #### [facility] [address] [place] [address] Bilirubin [Mass/Vol] 0.3 mg/dL Normal 0.3-1.0 [facility] Comment on above: Performed By: #### E MICHELLE CRENSHAW, CBC #### [facility] [address] [place] [address] Calcium [Mass/Vol] 8.4 mg/dL Low 8.6-10.3 [facility] Comment on above: Performed By: #### E MICHELLE CRENSHAW, CBC #### [facility] [address] Chloride [Moles/Vol] 104 mmol/L Normal 98-107 [facility] Comment on above: Performed By: #### E MICHELLE CRENSHAW, CBC #### [address] CO2 [Moles/Vol] 27.6 mmol/L Normal 21.0-31.0 [facility] Comment on above: Performed By: #### E MICHELLE CRENSHAW, CBC #### [address] Creatinine [Mass/Vol] 0.77 mg/dL Normal 0.60-1.20 [facility] Comment on above: Performed By: #### E MICHELLE CRENSHAW, CBC #### [address] Creatinine Clr Calc Pharmacy 89.14 [facility] Comment on above: Result Comment: PERF ORMED BY: [place] [address] PATHOLOGIST SAFEMAKER DANYELL LIVINGSTON M.D. Performed By: #### E MICHELLE CRENSHAW, CBC #### [address] GFR/1.73 sq M.predicted MDRD (S/P/Bld) [Vol rate/Area] mL/min/{1.73_m2} [facility] Comment on above: Performed By: #### E MICHELLE CRENSHAW, CBC #### [facility] [address] [place] [address] Globulin (S) [Mass/Vol] 3.0 g/dL Normal [facility] Comment on above: Performed By: #### E MICHELLE CRENSHAW, CBC #### [facility] [address] [place] [address] [place] Glucose [Mass/Vol] 83 mg/dL Normal 70-100 [facility] Comment on above: Result Comment: [place] Glucose Reference Range is dependent on time and content of last meal. Glucose of more than 200 mg/dL in a nonstressed, ambulatory subject supports the diagnosis of Diabetes Mellitus. ADA recommended reference range Performed By: #### E MICHELLE CRENSHAW, CBC #### [facility] [address] Potassium [Moles/Vol] 3.9 mmol/L Normal 3.5-5.1 [facility] Comment on above: Performed By: #### E MICHELLE CRENSHAW, CBC #### [facility] [address] [place] [address] [place] Protein [Mass/Vol] 6.8 g/dL Normal 6.4-8.9 [facility] Comment on above: Performed By: #### E MICHELLE CRENSHAW, CBC #### [facility] [address] [place] [address] [place] Sodium [Moles/Vol] 137 mmol/L Normal 136-145 [facility] Comment on above: Performed By: #### E MICHELLE CRENSAHW, CBC #### [facility] [address] [place] [id number] [place] Urea nitrogen [Mass/Vol] 17 mg/dL Normal 7-25 [facility] Comment on above: Performed By: #### E MICHELLE CRENSHAW, CBC #### [facility] [address] [place] [id number] [place] Creatinine [Mass/volume] in Serum or PlasmaOrdered By: Leonard Salazar on 02-03-2023 Creatinine [Mass/Vol] 0.77 mg/dL 0.60-1.20 [facility] Dipstick and Microscopicon 0 02-03-2023 Appearance (U) Cloudy Critically abnormal Clear [facility] Comment on above: Order Comment: Name Collection Type:: Clean-Voided Midstream Performed By: #### U HCG, URDS, ADDONUAPLUS, CUU #### [facility] [address] [place] [address] [place] Bacteria,Urine 1+ High None Seen [facility] [facility] Comment [facility]: Order Comment: Name Collection Type:: Clean-Voided Midstream Performed By: #### U HCG, URDS, ADDONUAPLUS, CUU #### [facility] [address] [place] [address] [place] Bilirubin,Urine Negative Normal Negative [facility] Comment on above: Order Comment: Name Collection Type:: Clean-Voided Midstream Performed By: #### U HCG, URDS, ADDONUAPLUS, CUU #### [facility] [address] [place] [address] [place] Color (U) Yellow Normal Yellow [facility] Comment on above: Order Comment: Name Collection Type:: Clean-Voided Midstream Performed By: #### U HCG, URDS, ADDONUAPLUS, CUU #### [facility] [address] [place] [address] Glucose Ql (U) Normal Normal Normal [facility] Comment on above: Order Comment: Name Collection Type:: Clean-Voided Midstream Performed By: #### U HCG, URDS, ADDONUAPLUS, CUU #### [facility] [address] [place] [address] [place] Hyaline Casts,Urine None Seen Normal 0-1 [facility] Comment on above: Order Comment: Name Collection Type:: Clean-Voided Midstream Performed By: #### U HCG, URDS, ADDONUAPLUS, CUU #### [facility] [address] [place] [address] [place] Ketones Ql (U) Trace High Negative [facility] Comment on above: Order Comment: Name Collection Type:: Clean-Voided Midstream Performed By: #### U HCG, URDS, ADDONUAPLUS, CUU #### [facility] [address] [place] [address] [place] Leukocyte esterase Test strip Ql (U) 1+ High Negative [facility] Comment on above: Order Comment: Name Collection Type:: Clean-Voided Midstream Performed By: #### U HCG, URDS, ADDONUAPLUS, CUU #### [facility] [address] [place] [address] Nitrite,Urine Negative Normal Negative [facility] Comment on above: Order Comment: Name Collection Type:: Clean-Voided Midstream Performed By: #### U HCG, URDS, ADDONUAPLUS, CUU #### [address] Occult Blood,Urine Negative Normal Negative [facility] Comment on above: Order Comment: Name Collection Type:: Clean-Voided Midstream Performed By: #### U HCG, URDS, ADDONUAPLUS, CUU #### [address] Other Casts,Urine None Seen Normal None Seen [facility] Comment on above: Order Comment: Name Collection Type:: Clean-Voided Midstream Performed By: #### U HCG, URDS, ADDONUAPLUS, CUU #### [address] pH (U) 7.5 [pH] Normal 5.0-9.0 [facility] Comment on above: Order Comment: Name Collection Type:: Clean-Voided Midstream Performed By: #### U HCG, URDS, ADDONUAPLUS, CUU #### [address] Protein,Urine Negative Normal Negative [facility] Comment on above: Order Comment: Name Collection Type:: Clean-Voided Midstream Performed By: #### U HCG, URDS, ADDONUAPLUS, CUU #### [facility] [address] [place] [address] RBC,Urine 1-2 Normal 0-4 [facility] Comment on above: Order Comment: Name Collection Type:: Clean-Voided Midstream Performed By: #### U HCG, URDS, ADDONUAPLUS, CUU #### [address] Specificy [place],Urine 1.025 Normal 1.001-1.030 [facility] Comment on above: Order Comment: Name Collection Type:: Clean-Voided Midstream Performed By: #### U HCG, URDS, ADDONUAPLUS, CUU #### [facility] [address] [place] [address] [place] Squamous Epithelial Cell,Urine 20-30 High 0-2 [facility] Comment on above: Order Comment: Name Collection Type:: Clean-Voided Midstream Performed By: #### U HCG, URDS, ADDONUAPLUS, CUU #### [facility] [address] [place] [address] Urobilinogen,Urine Normal Normal Normal [facility] Comment on above: Order Comment: Name Collection Type:: Clean-Voided Midstream Performed By: #### U HCG, URDS, ADDONUAPLUS, CUU #### [place] [address] [place] WBC,Urine 5-9 High 0-4 [facility] Comment on above: Order Comment: Name Collection Type:: Clean-Voided Midstream Performed By: #### U HCG, URDS, ADDONUAPLUS, CUU #### [facility] [address] [place] [address] [place] Drug Screen,Urineon 02-04-20 23 Amphetamine Screen,Urine Positive High Negative [facility] Comment on above: Performed By: #### U HCG, URDS, ADDONUAPLUS, CUU #### [facility] [address] [place] [address] Barbiturate Screen,Urine Negative Normal Negative [facility] Comment on above: Performed By: #### U HCG, URDS, ADDONUAPLUS, CUU #### [facility] [address] [place] [address] [place] Benzodiazepines Screen,Urine Negative Normal Negative [facility] Comment on above: Performed By: #### U HCG, URDS, ADDONUAPLUS, CUU #### [facility] [address] [place] [address] Cannabinoid Screen,Urine Negative Normal Negative [facility] Comment on above: Result Comment: Thes e are unconfirmed results and should not be used for legal purposes. Drug Cut-Off Concentration: AMPH 1000 ng/mL SARA 200 ng/mL MARTÍNEZ 200 ng/mL COCM 300 ng/mL OP 300 ng/mL PCP 25 ng/mL THC 20 ng/mL PERFORMED BY: [place] [address] PATHOLOGIST SAFEMAKER DANYELL LIVINGSTON M.D. Performed By: #### U HCG, URDS, ADDONUAPLUS, CUU #### [facility] [address] [place] [address] Cocaine Screen,Urine Negative Normal Negative [facility] Comment on above: Performed By: #### U HCG, URDS, ADDONUAPLUS, CUU #### [facility] [address] [place] [address] Opiate Screen,Urine Negative Normal Negative [facility] Comment on above: Performed By: #### U HCG, URDS, ADDONUAPLUS, CUU #### [facility] [address] [place] [address] [place] Phencyclidine Screen,Urine Negative Normal Negative [facility] Comment on above: Performed By: #### U HCG, URDS, ADDONUAPLUS, CUU #### [facility] [address] [place] [address] Eosinophils Auto (Bld) [#/Vo l]Ordered By: Leonard Salazar on 02-03-2023 Eosinophils (Bld) [#/Vol] 0.1 10*3/uL 0.0-0.45 [facility] Eosinophils/100 WBC Auto (Bl d)Ordered By: Leonard Salazar on 02-03-2023 Eosinophils/100 WBC (Bld) 0.9 % . [facility] Erythrocyte distribution wid th Auto (RBC) [Ratio]Ordered By: Leonard Salazar on 02-03-2023 Erythrocyte distribution width (RBC) [Ratio] 14.0 % 11.9-15.3 [facility] Ethanol [Mass/volume] in Ser um or PlasmaOrdered By: Leonard Salazar on 02-03-2023 Ethanol [Mass/Vol] mg/dL [facility] Ethanol [Mass/Vol] TNP [facility] Comment on above: Test not performed Ethyl Alcohol Profileon 01-11 Ethanol [Mass/Vol] mg/dL Normal [facility] Comment on above: Performed By: #### E FLOWER, MICHELLE, CBC #### [facility] [address] Percent Ethanol Not performed Normal [facility] Comment on above: Result Comment: PERF ORMED BY: [place] [address] PATHOLOGIST SAFEMAKER DANYELL LIVINGSTON M.D. Performed By: #### E MICHELLE CRENSHAW, CBC #### [address] Globulin Calc (S) [Mass/Vol] Ordered By: Leonard Salazar on 02-03-2023 Globulin (S) [Mass/Vol] 3.0 g/dL [facility] Glucose [Mass/volume] in Ser um or PlasmaOrdered By: Leonard Salazar on 02-03-2023 Glucose [Mass/Vol] 83 mg/dL 70-100 [facility] Comment on above: ADA recommended refe rence rangeRandom Glucose Reference Range is dependent on time and content of last meal. Glucose of more than 200 mg/dL in a nonstressed, ambulatory subject supports the diagnosis of Diabetes Mellitus. HCG ( test) IA.rapi d Ql (U)Ordered By: Leonard Salazar on 02-03-2023 HCG ( test) Ql (U) Negative [facility] HCG,Urineon 02-03-2023 Beta HCG ( test) Ql (U) Negative Normal [facility] Comment on above: Order Comment: Name Collection Type:: Clean-Voided Midstream Result Comment: PERF ORMED BY: [place] [address] PATHOLOGIST SAFEMAKER DANYELL LIVINGSTON M.D. Performed By: #### U HCG, URDS, ADDONUAPLUS, CUU #### [place] [id number] [facility] Hematocrit Auto (Bld) [Volum e fraction]Ordered By: Leonard Salazar on 02-03-2023 Hematocrit (Bld) [Volume fraction] 39.9 % 34.0-46.4 [facility] Hemoglobin [Mass/volume] in BloodOrdered By: Leonard Salazar on 02-03-2023 Hemoglobin (Bld) [Mass/Vol] 13.4 g/dL 11.8-15.4 [facility] Ketones Auto test strip (U) [Mass/Vol]Ordered By: Leonard Salazar on 02-03-2023 Ketones (U) [Mass/Vol] Trace Negative [facility] Leukocytes [#/volume] correc neema for nucleated erythrocytes in Blood by Automated counOrdered By: Leonard Salazar on 02-03-2023 WBC corrected for nucl RBC Auto (Bld) [#/Vol] 9.5 10*3/uL 3.8-11.6 [facility] Lymphocytes Auto (Bld) [#/Vo l]Ordered By: Leonard Salazar on 02-03-2023 Lymphocytes (Bld) [#/Vol] 2.8 10*3/uL 1.00-4.8 [facility] Lymphocytes/100 WBC Auto (Bl d)Ordered By: Leonard Salazar on 02-03-2023 Lymphocytes/100 WBC (Bld) 29.7 % . [facility] MCH Auto (RBC) [Entitic mass ]Ordered By: Leonard Salazar on 02-03-2023 MCH (RBC) [Entitic mass] 31.0 pg 24.7-34.3 [facility] MCHC Auto (RBC) [Mass/Vol]Or dered By: Leonard Salazar on 02-03-2023 MCHC (RBC) [Mass/Vol] 33.5 g/dL 32.0-35.0 [facility] MCV Auto (RBC) [Entitic vol] Ordered By: Leonard Salazar on 02-03-2023 MCV (RBC) [Entitic vol] 92.6 fL 80-100 [facility] Monocyte distribution width [Entitic volume] in Blood by AutomatedOrdered By: Leonard Salazar on 02-03-2023 Monocyte distribution width Auto (Bld) [Entitic vol] 20.22 % 0.00-20.00 [facility] Comment on above: For adults in ED, MD W > 20.0 may be associated with a higher risk of sepsis during the first 12 hrs of hospital admission Monocytes Auto (Bld) [#/Vol] Ordered By: Leonard Salazar on 02-03-2023 Monocytes (Bld) [#/Vol] 0.5 10*3/uL 0.0-0.8 [facility] Monocytes/100 WBC Auto (Bld) Ordered By: Leonard Salazar on 02-03-2023 Monocytes/100 WBC (Bld) 5.0 % . [facility] Neutrophils Auto (Bld) [#/Vo l]Ordered By: Leonard Salazar on 02-03-2023 Neutrophils (Bld) [#/Vol] 6.1 10*3/uL 1.8-7.7 [facility] Neutrophils/100 WBC Auto (Bl d)Ordered By: Leonard Salazar on 02-03-2023 Neutrophils/100 WBC (Bld) 64.0 % . [facility] Nitrite Test strip Ql (U)Ord ered By: Leonard Salazar on 02-03-2023 Nitrite Ql (U) Negative Negative [facility] No Panel InformationOrdered By: Leonard Salazar on 02-03-2023 Estimated GFR (CKD-EPI) > 60.0 mL/Min [facility] Creatinine Clearance (Chem 89.14 [facility] Nucleated erythrocytes [Pres ence] in Blood by Automated countOrdered By: Leonard Salazar on 02-03-2023 Nucleated RBC Auto Ql (Bld) 0.1 /100{WBC} 0-0.5 [facility] Opiates [Presence] in Urine by Screen methodOrdered By: Leonard Salazar on 02-03-2023 Opiates Screen Ql (U) Negative Negative [facility] Phencyclidine Screen Ql (U)O rdered By: Leonard Salazar on 02-03-2023 Phencyclidine Ql (U) Negative Negative [facility] Platelet mean volume Auto (B ld) [Entitic vol]Ordered By: Leonard Salazar on 02-03-2023 Platelet mean volume (Bld) [Entitic vol] 8.5 fL 6.3-10.7 [facility] Platelets Auto (Bld) [#/Vol] Ordered By: Leonard Salazar on 02-03-2023 Platelets (Bld) [#/Vol] 252 10*3/uL 150-450 [facility] Potassium [Moles/volume] in Serum or PlasmaOrdered By: Leonard Salazar on 02-03-2023 Potassium [Moles/Vol] 3.9 mmol/L 3.5-5.1 [facility] Protein Auto test strip (U) [Mass/Vol]Ordered By: Leonard Salazar on 02-03-2023 Protein (U) [Mass/Vol] Negative Negative [facility] Protein [Mass/volume] in Ser um or PlasmaOrdered By: Leonard Salazar on 02-03-2023 Protein [Mass/Vol] 6.8 g/dL 6.4-8.9 [facility] RBC Auto (Bld) [#/Vol]Ordere d By: Leonard Salazar on 02-03-2023 RBC (Bld) [#/Vol] 4.31 10*6/uL 3.60-5.00 [facility] Serum or plasma albumin/glob ulin mass ratioOrdered By: Leonard Salazar on 02-03-2023 Albumin/Globulin [Mass ratio] 1.3 {ratio} [facility] Serum or plasma anion gap de terminationOrdered By: Leonard Salazar on 02-03-2023 Anion gap [Moles/Vol] 9.3 mmol/L 6.0-15.0 [facility] Sodium [Moles/volume] in Ser um or PlasmaOrdered By: Leonard Salazar 02-03-2023 Sodium [Moles/Vol] 137 mmol/L 136-145 [facility] Specific gravity Auto test s trip (U) [Rel density]Ordered By: Leonard Salazar on 02-03-2023 Specific gravity (U) [Rel density] 1.025 1.001-1.030 [facility] Squamous epithelial cells de tection in urine sediment by light microscopyOrdered By: Leonard Salazar on 02-03-2023 Epithelial cells.squamous LM Ql (Urine sed) 20-30 [HPF] 0-2 [facility] Urea nitrogen [Mass/volume] in Serum or PlasmaOrdered By: Leonard Salazar on 02-03-2023 Urea nitrogen [Mass/Vol] 17 mg/dL 05-05 [facility] Urine Cultureon 02-03-2023 Bacteria identified Cx Nom (U) 20,000 colonies/ml mixed bacterial skin contaminants 2 Days PERFORMED BY: [place] [address] PATHOLOGIST SAFEMAKER DANYELL LIVINGSTON M.D. Normal [facility] Comment on above: Performed By: #### U HCG, URDS, ADDONUAPLUS, CUU #### [facility] [address] [place] [address] Urine bacteria detection by automated methodOrdered By: Leonard Salazar on 02-03-2023 Bacteria Auto Ql (U) 1+ None Seen [facility] Urine clarity by refractomet ry automatedOrdered By: Leonard Salazar on 02-03-2023 Clarity Refractometry automated (U) Cloudy Clear [facility] Urine culture routineOrdered By: Leonard Salazar on 02-03-2023 Bacteria identified Cx Nom (U) 2 Days [facility] Urine glucose measurement by automated test strip (mass/volume)Ordered By: Leonard Salazar on 02-03-2023 Glucose Auto test strip (U) [Mass/Vol] Normal mg/dL Normal [facility] Urine hemoglobin detection b y automated test stripOrdered By: Leonard Salazar on 02-03-2023 Hemoglobin Auto test strip Ql (U) Negative Negative [facility] Urine leukocyte esterase det ection by automated test stripOrdered By: Leonard Salazar on 02-03-2023 Leukocyte esterase Auto test strip Ql (U) 1+ Negative [facility] Urobilinogen Auto test strip (U) [Mass/Vol]Ordered By: Leonard Salazar on 02-03-2023 Urobilinogen (U) [Mass/Vol] Normal mg/dL Normal [facility] WBC Auto (Bld) [#/Vol]Ordere d By: Leonard Salazar on 02-03-2023 WBC (Bld) [#/Vol] 9.5 10*3/uL 3.8-11.6 [facility] pH Auto test strip (U)Ordere d By: Leonard Salazar on 02-03-2023 pH (U) 7.5 [pH] 5.0-9.0 [facility] ED Note-Physicianon 01-28-20 ED Note-Physician [id number] #1.00CD:[address] [facility] Cholesterol [Mass/volume] in Serum or PlasmaOrdered By: Bobo Shields on 01-15-2023 Cholesterol [Mass/Vol] 220 mg/dL 140-200 [facility] Comment on above: Chol less than 200 m g/dl low riskChol 201-239 mg/dl borderline riskChol 240 mg/dl and greater high risk Cholesterol in LDL Calc [Mas s/Vol]Ordered By: Bobo Shields on 01-15-2023 Cholesterol in LDL [Mass/Vol] 150 mg/dL 0-100 [facility] Comment on above: LDL ATP III CLASSIFI CATIONLDL less than 100 mg/dL OptimalLDL 100-129 mg/dL Near or above optimalLDL 130-159 mg/dL Borderline highLDL 160-189 mg/dL HighLDL greater than 189 mg/dL Very high Cholesterol in VLDL Calc [Ma ss/Vol]Ordered By: Bobo Shields on 01-15-2023 Cholesterol in VLDL [Mass/Vol] 23 mg/dL [facility] Lipid Panelon 01-15-2023 Cholesterol [Mass/Vol] 220 mg/dL High 140-200 [facility] Comment on above: Result Comment: Chol less than 200 mg/dl low risk Chol 201-239 mg/dl borderline risk Chol 240 mg/dl and greater high risk Performed By: #### U HCG, URDS, ADDONUAPLUS, CUU #### [facility] [address] [place] [address] [place] Cholesterol in HDL [Mass/Vol] 46 mg/dL Normal 35-85 [facility] Comment on above: Result Comment: HDL CHOL ATP-III CLASSIFICATION Cardiovascular Risk HDL > or equal to 60 mg/dL LOW HDL < 40 mg/dL HIGH Performed By: #### U HCG, URDS, ADDONUAPLUS, CUU #### [facility] [address] [place] [id number] [facility] Cholesterol.total/Chol esterol in HDL [Mass ratio] 4.8 {ratio} Normal <5.0 [facility] Comment on above: Performed By: #### U HCG, URDS, ADDONUAPLUS, CUU #### [facility] [address] LDL Cholesterol,Calculated 150 mg/dL High 0-100 [facility] Comment on above: Result Comment: LDL ATP III CLASSIFICATION LDL less than 100 mg/dL Optimal LDL 100-129 mg/dL Near or above optimal LDL 130-159 mg/dL Borderline high LDL 160-189 mg/dL High LDL greater than 189 mg/dL Very high Performed By: #### U HCG, URDS, ADDONUAPLUS, CUU #### [facility] [address] Triglyceride w/Reflex 119 mg/dL Normal 0-149 [facility] Comment on above: Result Comment: TRIG ATP III CLASSIFICATION TRIG less than 150 mg/dL Normal TRIG 150-199 mg/dL Borderline high TRIG 200-500 mg/dL High TRIG greater than 500 mg/dL Very high Standard traceable to the Center for Disease Conrtrol and Prevention (CDC) test method. Performed By: #### U HCG, URDS, ADDONUAPLUS, CUU #### [facility] [address] VLDL CHOLESTEROL 23 mg/dL Normal [facility] Comment on above: Performed By: #### U HCG, URDS, ADDONUAPLUS, CUU #### [facility] [address] Serum or plasma high density lipoprotein (HDL) cholesterol measurementOrdered By: Bobo Shields on 01-15-2023 Cholesterol in HDL [Mass/Vol] 46 mg/dL 35-85 [facility] Comment on above: HDL CHOL ATP-III CLA SSIFICATION Cardiovascular RiskHDL > or equal to 60 mg/dL LOWHDL < 40 mg/dL HIGH Serum or plasma total choles terol/high density lipoprotein (HDL) cholesterol mass ratOrdered By: Bobo Shields on 01-15-2023 Cholesterol.total/Chol esterol in HDL [Mass ratio] 4.8 {ratio} <5.0 [facility] Thyroid Stim Hormone w/Rflxo n 01-15-2023 Thyroid Stim Hormone w/Rflx 1.74 u[iU]/mL Normal 0.45-5.33 [facility] Comment on above: Performed By: #### U HCG, URDS, ADDONUAPLUS, CUU #### [facility] [address] Thyrotropin [Units/volume] i n Serum or PlasmaOrdered By: Bobo Shields on 01-15-2023 TSH Qn 1.74 m[IU]/L 0.45-5.33 [facility] Triglyceride [Mass/volume] i n Serum or PlasmaOrdered By: Bobo Shields on 01-15-2023 Triglyceride [Mass/Vol] 119 mg/dL 0-149 [facility] Comment on above: TRIG ATP III CLASSIF ICATIONTRIG less than 150 mg/dL NormalTRIG 150-199 mg/dL Borderline highTRIG 200-500 mg/dL High TRIG greater than 500 mg/dL Very highStandard traceable to the Center for Disease Conrtrol and Prevention (CDC) test method. Vitamin D 25 Hydroxy Totalon 01-15-2023 Vitamin D 25 Hydroxy Total 15.0 ng/mL Low 30-100 [facility] Comment on above: Result Comment: KAVON MIN D STATUS 25(OH)VITAMIN D RANGE (ng/mL) Deficient <20 Insufficient 20 to <30 Sufficient 30 to 100 Reference: Deb MF,Stephanie NC, Ro CORONEL, et al. Evaluation,treatment, and prevention of vitamin D deficiency; an Endocrine Society clinical practice guideline. JCEM. 2010; 96(7):1911-30. PERFORMED BY: [facility] [address] [place] [address] PATHOLOGIST SAFEMAKER DANYELL LIVINGSTON M.D. Performed By: #### U HCG, URDS, ADDONUAPLUS, CUU #### [facility] [address] [place] [address] Vitamin D+Metabolites [Mass/ volume] in Serum or PlasmaOrdered By: Bobo Shields on 01-15-2023 Vitamin D+Metabolites [Mass/Vol] 15.0 ng/mL 30-100 [facility] Comment on above: VITAMIN D STATUS 25( OH)VITAMIN D RANGE (ng/mL) Deficient <20 Insufficient 20 to <30Sufficient 30 to 100Reference: Deb MF,Stephanie HERNANDEZ, Ro CORONEL, et al. Evaluation,treatment, and [...] Trimethoprim/Sulfame thoxazole >=320 R F Normal [facility] Comment on above: Performed By: #### P REG #### [facility] [address] [place] [address] Dr. Efren Parra Coding Summary.on 01-14-2023 Coding Summary. CD:[id number] Ww+PGhlYWQ+AR3DWGNuN 96orKXioE4oJ5EBCCzVB ywgQVBQTElOSyIgbmFtZ A5xrYJmITUn IC8+NV1mNCIrLkcviOVw y0X4nDK9Q17buk4eTVfe sJF4DUUbIyKciryxa2ih mHu0FUdtAekoXcPx DNEldC86UVX1nQ05Ij03 rITzwCDcf6punNd3OcHh FZDmWKX0bZpuGJdfl3On YRAtE52xxDWuu9T7 IGNvbGxhcHNlOyBlbXB0 hH5jJZzwlzomz3desdxr Ahh6sa89xRGmu2A8kVZ6 G3MrryG0BHQgvJWh CjcguHFQzW6lyzogj6bs utczLrRbFMGhESq4HTh6 BYRytHhjFbAfJO71BDJ5 DLOzysGzC2FaFVDa jUgjFwW6p3N9Tv9UJ9BN UdirS7RWQTCRYOlyqQG+ AE53iz45A9LnQjigNst3 UIGxZWZ4hLY9yA4g ILCdFZjsc3Q4lAE7K8Je abYcvb7dk0jwKOJbBQai C86wjNPkd3A0ODYrkYI3 HZWryJefDpJudT34 Oyc+FVCcdAdgi8LkMdwx y4edg0dnuMa4NdtbQHTw bePldVjkVPJ2a4JtCh2t OSVsrXE3rQJ5hS6e GfCpOkP2TLixV471OdAd uQSgKzxjT49mX3XnhWD+ CWKpQac7PITjxJecAX4m K9AuGREoumnecQOy zVeuTL5pUPCeuvdkEGQc nK4vEVVbN2x7XlJiCaY2 VUfzW4RaOWOaghixHz04 cM9kLlIgAkC3ZNeg N9OuxjR8RLAclLXePVib EXD3W25yy3R7IFIuPRIn XWK8tIF6aI5frKteulwa bGVmdDsgdmVydGlj HZiyYUwxA326PSMcpZga PkNvZGluZyBEYXRlOiAg MDQvMDUvMjAyMzwvdGQ+ GNTzCHD4jVchUAMt mFNwSXiyNt8lzMjizQvf ZM6iMQHbjqgbGRPmmO6l FXPycIPxfRiaZW3vLKRy xfzal944CrPuUKK2 VWGhpGRnX4ThnH0pKrJd ZVJoCCSzX7VqtKFfOVul H021ODbjXvW2IAOnnsSm E6MzRRGcsRgiXdY7 y1D3Ot6Wb6UwinmaV1Gv vENsWvSsJqjdWLu0D5Qz PjwvdHI+VH20SVHmMY65 UFf7RCZ1cHqfDXqs ILLuZ2OewD4xLxMqLJSp ZGRkOyc+PHRhYmxlIHdp ZHRoPScxMDAlJyBzdHls KC6hZq1vLNWrXYZb nJygsMChFuUbt2nhWBDt VDkqCG8qbKvhS0KumPL0 PGZyv4v6Xw24C98yZ4Jh dXA+RVTtaXL4uJE5 xO6xGbUnNrS0AFfjT103 AzVuiHQzDtcpw8pkl0wu pQi5WgY8UPPjynQqsCkp IET7l8TjUj27R43n IHdpZHRoPSIxNSUiIHZh pRkbng3qpN7eBx4+PGNv tIZ1yPN3qW4hBvWqIxK5 YCyaX618GvAqnVKx Vqway2koo3pabAk0DdJn QDRapgWfxEtqRYB3a6Ee Le41Q9NnzExep9VeUwr6 un02lBZyv1K7vSZ4 C0JoPHBhkdlxwJFvfKmq QF1zAKNokhrxEQEcwX7u CGPnF2a6OkNsTuI1SVcu F5TxfdE5BYYyhJAu KIPeuSKQcY6lfvsmx9sn gjyjTgOlTAAsNXl8OKv9 MVOguKehPrEuIDH1IiT7 VSQ7hMBpoK8ovAsg qprcnK7gJfq+UVL7gHMs oRHHVX4qPtsuaKG+PHRk VLZ5zRckOVstRPFthY0y YQTeF9h2HvSaMbR2 QYscR1WabaC3GZMxjVNf MKSzkEOTtM6zjnjxj1yy tdstSvAuICVhXBa4BBi9 LWFsaWduOiBsZWZ0 CqA2CMX8jSEbgY5ctVtf hxrmnM8rPbo+QmlydGgg OJA3XMc1S9PaJux9UECo eTvkOK2biUHoHReu Lq5zhJogfDilWO2uMKMh srvhn971ByBwn8lwOFLv kCXlAWbuRLQ7W22uw6G7 REOdNOWfAQS8jYY0 aT0mbLqwqbtnwDQgdCdn mnYhdJbdENkyAGvzV509 DEEtnEsxIqQvHWx8Z8Ij Qre2HBNmpRwqEK1m wMNuJMbfWb3bgTixeNop SL5gYHOjwhdht771IqYc q3xtLUHksPNmHKjtOOV1 Y51jv8D9PKVaVWYd QNK8kRT1gF9qeQywafsp bGVmdDsgdmVydGljYWwt XNbgV002BLJwnDjiPwYx lTp9P0YkRln3OWPk oGtqRX2yeNQcXWsxTz6l sDmxuRxiUI3qUUFflduq d534XsQva6ahBWPddZKq OLmkGLP7B91un8F8 BFDgWJToELD1cGR0zR2n bGlnbjogbGVmdDsgdmVy bYojJHpeVHosC895XNNz cDsnPlBhdGllbnQg SDsyWYd3I5GsKqzojQX+ RQ23KCTaCP73kHGrdRAv g6yqoAv4NnHiXZYfETF3 sVowTFhhn3JbNUOd A75efOSks9S3SUIlfUmf kWUvSzGitZC4tE3wELwv njvva9waqtfbVpbxa0sf af56xF20Y19pPXdn ZHRoPSIzMCUiIHZhbGln oo7rgY9lFj8+PGNvbCB3 xXJ4bN9cTAAoCxG0ADua B631OtQtlGChXkox h0ybu2ywuYs4ZiV8FEFx ebWfmOtsUXB8l8BbKx48 R71bNShlUFYaPCPmFOXl ANTfuIvrma6urR8i Ii8+ZRQdiOG2yUP5lJ2z RmJuRzN0HCrvD507TnNv gTMiNoeuB81vO4UwbEY+ WVIuVgv0SSZtzWyv KM4tuQTzLVhhAn4fVXY0 UcXhAyGpLFkdA4WaBBFn kbzvxlbglXA1LIArWSDo nT59Bi3rkBzjZFFj iMHBxK3scclml1hkqani UyWfMFVrQKl0ACy9YXNo yWbiVrHgIDX5JyN2GHJ3 sSJedI9mvDqiqxik rT5iN0OgJKBtupouUx56 aP7dNtXqUfP2QItyVau+ Ku0QQNJDVMXQUJOOMVPU UQ84UO68qQOnc2F3 xMN0A9FgNXRxauixlmsf uSY0NVWfIUMpuP29gGRp JVzbXe7yw5S1z216YRTk OAAliI23Ee6niIin WTGlgFAGmM3adqrab3hu cvqkCqJuKBTwLWh2MUh8 MEHsrYtuLmViGVP1GgQ6 HWU0lJPmcC7knXaf reivoX5gMhd+MDMvMzEv ZOz8RDjfmIK+PHRkIHN0 nBlvVArlPTZyuM3bSZOl C8e8TyXkCmK7TAvi O3PvCATiqivoGb79kD7r QbXvZgZ5ACbuS5OdgvI1 TOLtoUGfXOvzSQN9G93j z8T9WTLwRIAuHUA6 uJH3rL6xfAhyblvrtOKd dDsgdmVydGljYWwtYWxp H784WOXqaDvuNnZ9POsd UYAnHU16BK91wYMh z3X7cLW0V7RwOLYfyqsy kwwuqCU0BWYuTFWtiZ68 xOToLGepCo5hk6B7o649 TFAoXOGflM98Fg7p nTniYLRunEGKrD5ygomh c9biwhlbZcFjIQYyUAx2 IVs7NIRjlEsaMbNoPQP8 FfK5URD3lZVqcK3c vWfrfmbzvG1mJti+RmVt GZfzKF07LK48wNHiq9S5 zHV0Y9UxZHOpntoujgtc bTZ4NYXeKKYwrI54 lYFpGYxlCt7qf3A5q574 FIDdBPSlkF24Yu8yoWrb PWBjfSPItA7xittks0cl cjogIzAwMDAwMDt0 ADm2JVFqfWatNwWeBFW8 EiL8XJK6hYTeoI6pcEjl rbeimD4kQih+WE1vsyen ghF7DJ11YT69R6Zo PjwvdGFibGU+PHRhYmxl IHdpZHRoPScxMDAlJyBz oUneDO8bWf9sZMPaJLOf cEgqwEUlTrFlq9bm BAXoXQhaQS5rrErqO8Gd eRY2LZRpp8w6Lf29T84p W8WwyOA+TGTcxTI2uVB1 dU2eDvQdWpQ8GLqh N548YsQqsKTySdjyg7fz s8tcpOo3ZnPyRTTdhyDf fRqmSYK2o7KzWy51Y31u IHdpZHRoPSIyMCUi IKTooKiysu1qdS2sBv0+ CDCbcAU1dNO8yG6mWeFs OkV1HKqdQ333JfZliFMm SgsuN23iZ9IxdGQ+ ZJNwXcb3DUImaHmfEA9j yFCrUBhzAs9hGXD8PqJj YnWiIIgjT2ZhYYTmcfjg ifypvEX2XRYtGQBd oO66Na6fcMjoQc6pHDAl NHC2GYMuiKFiN4TqrG2h PuPlDBQjGYDsB3OrwPTi SAvbH519ZVrqLcU1 DQQvjjZxL1WxCEKgmDnh HhZ9g6I7Lb4FdSdntUKk GQ1hDxAnAMb4M9ApZkd7 YRCdvEfiDE2baQLj SJjcCv7ekWqftUcpVL4j ZTAawfxff587TyYvz7ft WQOilXVkIVtsGNT8D49o s0Y4DROzGINkCTO3 tFP0vC5qcGozvvkuwWRe dDsgdmVydGljYWwtYWxp Z952KQBcxWccJjOPKcp1 M0PdTsx9WSIgsFic DL0veXDtRHlxVk2qdMbc nQdkOQ7fOSTadyrol529 ImOoo9tfEQFjcMRyKZoy GEA1A32dz7V2JGMt WWWdCBE0iUR0aK3vhSoe bjogbGVmdDsgdmVydGlj CNyeCXzlP988JQNblZdx Cn7RElw0F8AiWcz0 VZRmsDpcIX6oyOOdVSyo Nl0xtLaeuUosJT7jWILn zrpzm305RrQnl7fyGJUk sOXzOFysWRH6L62i s9M9HDXeKSHkNNB0sTF5 fZ3wfRdpwpfraQYonJvy bcXsaEgjPIbuASksI079 IHRvcDsnPlBheWVy OjwvdGQ+JK92xx35X3Ut FqloTxu1OFDkLRI9cUG9 pM4lIJUsPBpap4O4aQC1 K1PjndYxdy2pe7ih YXBzZTog (more content not included)... Normal [facility] ECG 12 lead ECGon 01-14-2023 ECG 12 lead ECG [place] [id number] Electrocardiograph Report Signed Patient: Lorna Deutsch MR#: [id number] [birth year] : 1985 Acct:[id number] Age/Sex: 38 / F ADM Date: 01/12/23 Loc: Room: [address] [place] [address] Type: ADM IN Attending Dr: Bobo Shields [...] in Anterior leads Confirmed by ROMÁN RAMOS [id number] on 01/14/2023 4:34:36 PM Referred By: Electronically Signed By:RACHAEL RUDD MD [facility] Transcribed By: MUS Signed By Kane Rudd MD 01/14/23 1634 Normal [facility] ED Note-Physicianon 01-14-20 ED Note-Physician [id number] #1.00CD:[address] [facility] Outside Hospital Correspo ndenceon 01-13-2023 Outside [facility] Correspondence [id number] #1.00CD:[address] [facility] Alanine aminotransferase [En zymatic activity/volume] in Serum or PlasmaOrdered By: Jose Moses on 01-12-2023 ALT [Catalytic activity/Vol] 10 U/L 752 [facility] Albumin [Mass/volume] in Ser um or Plasma by Bromocresol green (BCG) dye binding methoOrdered By: Jose Moses on 01-12-2023 Albumin BCG dye [Mass/Vol] 5.3 g/dL 3.5-5.7 [facility] Alkaline phosphatase [Enzyma tic activity/volume] in Serum or PlasmaOrdered By: Jose Moses on 01-12-2023 ALP [Catalytic activity/Vol] 50 U/L 34-104 [facility] Amphetamine Screen Ql (U)Ord ered By: Jose Moses on 01-12-2023 Amphetamines Ql (U) Positive Negative [facility] Aspartate aminotransferase [ Enzymatic activity/volume] in Serum or PlasmaOrdered By: Jose Moses on 01-12-2023 AST [Catalytic activity/Vol] 13 U/L 13-39 [facility] Automated erythrocytes count in urine sediment (number/area)Ordered By: Jose Moses on 01-12-2023 RBC Auto (Urine sed) [#/Area] 3-4 [HPF] 0-4 [facility] Automated leukocytes count i n urine sediment (number/area)Ordered By: Jose Moses on 01-12-2023 WBC Auto (Urine sed) [#/Area] 10-19 [HPF] 0-4 [facility] Barbiturates [Presence] in U rine by Screen methodOrdered By: Jose Moses on 01-12-2023 Barbiturates Screen Ql (U) Negative Negative [facility] Basophils Auto (Bld) [#/Vol] Ordered By: Jose Moses on 01-12-2023 Basophils (Bld) [#/Vol] 0.0 10*3/uL 0.0-0.2 [facility] Basophils/100 WBC Auto (Bld) Ordered By: Jose Moses on 01-12-2023 Basophils/100 WBC (Bld) 0.3 % . [facility] Benzodiazepines Screen Ql (U )Ordered By: Jose Moses on 01-12-2023 Benzodiazepines Ql (U) Negative Negative [facility] Benzoylecgonine [Presence] i n Urine by Screen methodOrdered By: Jose Moses on 01-12-2023 Benzoylecgonine Screen Ql (U) Negative Negative [facility] Bilirubin Test strip Ql (U)O rdered By: Jose Moses on 01-12-2023 Bilirubin Ql (U) Negative Negative [facility] Bilirubin.total [Mass/volume ] in Serum or PlasmaOrdered By: Jose Moses on 01-12-2023 Bilirubin [Mass/Vol] 0.6 mg/dL 0.3-1.0 [facility] CARDIAC STACI ADMITon 023 CK [Catalytic activity/Vol] 48 U/L Normal 26-192 [facility] Comment on above: Performed By: #### P REG #### [facility] [address] [place] [address] Dr. Efren Parra CK.MB [Mass/Vol] 0.83 ng/mL Normal <=3.60 [facility] Comment on above: Performed By: #### P REG #### [facility] [address] [place] [address] Dr. Efren Parra HSTROP <4.0 Normal 4.0-51.3 [facility] Comment on above: Result Comment: CUT- OFF POINTS HAVE BEEN ESTABLISHED BASED ON THE FOURTH UNIVERSAL DEFINITIONS OF MYOCARDIAL INFARCTION. THE UPPER REFERENCE LIMIT (URL) OF TROPONIN, DEFINED THE 99TH PERCENTILE OF cTnI DISTRIBUTION IN A REFERENCE POPULATION, HAS BEEN CONFIRMED THE DECISION THRESHOLD FOR MS DIAGNOSIS. Performed By: #### P REG #### [facility] [address] [place] [address] Dr. Efren Parra FEMI 31 ng/mL Normal 9-82 [facility] Comment on above: Performed By: #### P REG #### [facility] [address] [place] [address] Dr. Efren Parra CBC AUTO DIFFon 01-12-2023 BASO # 0.0 103/ul Normal 0.0-0.1 [facility] Comment on above: Performed By: #### C BC #### [facility] [address] [place] [address] Dr. Efren Parra Basophils/100 WBC (Bld) 0.1 % Critically low 0.2-2.0 [facility] Comment on above: Performed By: #### C BC #### [facility] [address] [place] [address] Dr. Efren Parra EO # 0.0 103/ul Normal 0.0-0.7 [facility] Comment on above: Performed By: #### C BC #### [facility] [address] [place] [address] Dr. Efren Parra Eosinophils/100 WBC (Bld) 0.1 % Critically low 0.9-7.0 [facility] Comment on above: Performed By: #### C BC #### [facility] [address] [place] [address] Dr. Efren Parra Erythrocyte distribution width (RBC) [Ratio] 13.2 % Normal 11.0-15.0 [facility] Comment on above: Performed By: #### C BC #### [facility] [address] [place] [address] Dr. Efren Parra Hematocrit (Bld) [Volume fraction] 45.3 % Normal 36.0-48.0 [facility] Comment on above: Performed By: #### C BC #### [facility] [address] [place] [address] Dr. Efren Parra Hemoglobin (Bld) [Mass/Vol] 15.4 g/dL Normal 12.0-16.0 [facility] Comment on above: Performed By: #### C BC #### [facility] [address] [place] [address] Dr. Efren Parra IG # 0.01 10e3/ul Normal 0.00-0.03 [facility] Comment on above: Performed By: #### C BC #### [facility] [address] [place] [address] Dr. Efren Parra IG % 0.1 % Normal 0.0-0.5 [facility] Comment on above: Performed By: #### C BC #### [facility] [address] [place] [address] Dr. Efren Parra LYMPH # 2.3 103/ul Normal 1.2-3.8 [facility] Comment on above: Performed By: #### C BC #### [facility] [address] [place] [address] Dr. Efren Parra Lymphocytes/100 WBC (Bld) 31.1 % Normal 20.5-60.0 [facility] Comment on above: Performed By: #### C BC #### [facility] [address] [place] [address] Dr. Efren Parra MANUAL DIFF REQ NO Normal [facility] Comment on above: Performed By: #### C BC #### [facility] [address] [place], [place] [id number] Dr. Efren Parra MCH (RBC) [Entitic mass] 30.4 pg Normal 26.7-34.0 [facility] Comment on above: Performed By: #### C BC #### [facility] [address] [place] [address] Dr. Efren Parra MCHC (RBC) [Mass/Vol] 34.0 g/dL Normal 29.9-35.2 [facility] Comment on above: Performed By: #### C BC #### [facility] [address] [place] [address] Dr. Efren Parra MCV (RBC) [Entitic vol] 89.5 fL Normal 81.0-99.0 [facility] Comment on above: Performed By: #### C BC #### [facility] [address] [place] [address] Dr. Efren Parra MONO # 0.4 103/ul Normal 0.3-0.8 [facility] Comment on above: Performed By: #### C BC #### [facility] [address] [place] [address] Dr. Efren Parra Monocytes/100 WBC (Bld) 5.6 % Normal 1.7-12.0 [facility] Comment on above: Performed By: #### C BC #### [facility] [address] [place] [address] Dr. Efren Parra NEUT # 4.6 103/ul Normal 1.4-6.5 [facility] Comment on above: Performed By: #### C BC #### [facility] [address] [place] [address] Dr. Efren Parra Neutrophils/100 WBC (Bld) 63.0 % Normal 43.0-75.0 [facility] Comment on above: Performed By: #### C BC #### [facility] [address] [place] [address] Dr. Efren Parra Platelet mean volume (Bld) [Entitic vol] 10.5 fL Normal 9.5-13.5 [facility] Comment on above: Performed By: #### C BC #### [facility] [address] [place] [address] [address] Efren Parra PLT 262 103/ul Normal 150-450 [facility] Comment on above: Performed By: #### C BC #### [facility] [address] [place] [address] [address] Efren Parra RBC 5.06 106/ul Normal 4.20-5.40 [facility] Comment on above: Performed By: #### C BC #### [facility] [address] [id number] Efren Parra WBC 7.3 103/ul Normal 4.0-11.0 [facility] Comment on above: Performed By: #### C BC #### [facility] [address] [place] [address] [address] Efren Parra Calcium [Mass/volume] in Ser um or PlasmaOrdered By: Jose Moses on 01-12-2023 Calcium [Mass/Vol] 10.7 mg/dL 8.6-10.3 [facility] Cannabinoids [Presence] in U rine by Screen methodOrdered By: Jose Moses on 01-12-2023 Cannabinoids Screen Ql (U) Negative Negative [facility] Comment on above: These are unconfirme d results and should not be used for legal purposes. Drug Cut-Off Concentration: AMPH 1000 ng/mL SARA 200 ng/mL MARTÍNEZ 200 ng/mL COCM 300 ng/mL OP 300 ng/mL PCP 25 ng/mL THC 20 ng/mL Carbon dioxide, total [Moles /volume] in Serum or PlasmaOrdered By: Jose Moses on 01-12-2023 CO2 [Moles/Vol] 25.9 mmol/L 21.0-31.0 [facility] Chloride [Moles/volume] in S maris or PlasmaOrdered By: Jose Moses on 01-12-2023 Chloride [Moles/Vol] 103 mmol/L 98-107 [facility] Color Auto (U)Ordered By: Shaka Moses on 01-12-2023 Color (U) Yellow Yellow [facility] Complete Blood Count Auto Di ffon 01-12-2023 Basophils (Bld) [#/Vol] 0.0 10*3/uL Normal 0.0-0.2 [facility] Comment on above: Result Comment: PERF ORMED BY: [place] [address] PATHOLOGIST SAFEMAKER DANYELL LIVINGSTON M.D. Performed By: #### U HCG, URDS, ADDONUAPLUS, CUU #### [address] Basophils/100 WBC (Bld) 0.3 % Normal . [facility] Comment on above: Performed By: #### U HCG, URDS, ADDONUAPLUS, CUU #### [address] Eosinophils (Bld) [#/Vol] 0.0 10*3/uL Normal 0.0-0.45 [facility] Comment on above: Performed By: #### U HCG, URDS, ADDONUAPLUS, CUU #### [address] Eosinophils/100 WBC (Bld) 0.2 % Normal . [facility] Comment on above: Performed By: #### U HCG, URDS, ADDONUAPLUS, CUU #### [address] Erythrocyte distribution width (RBC) [Ratio] 14.2 % Normal 11.9-15.3 [facility] Comment on above: Performed By: #### U HCG, URDS, ADDONUAPLUS, CUU #### [address] Hematocrit (Bld) [Volume fraction] 47.7 % High 34.0-46.4 [facility] Comment on above: Performed By: #### U HCG, URDS, ADDONUAPLUS, CUU #### [address] Hemoglobin (Bld) [Mass/Vol] 16.1 g/dL High 11.8-15.4 [facility] Comment on above: Performed By: #### U HCG, URDS, ADDONUAPLUS, CUU #### [address] Lymphocytes (Bld) [#/Vol] 1.7 10*3/uL Normal 1.00-4.8 [facility] Comment on above: Performed By: #### U HCG, URDS, ADDONUAPLUS, CUU #### [address] Lymphocytes/100 WBC (Bld) 25.4 % Normal . [facility] Comment on above: Performed By: #### U HCG, URDS, ADDONUAPLUS, CUU #### [address] MCH (RBC) [Entitic mass] 30.9 pg Normal 24.7-34.3 [facility] Comment on above: Performed By: #### U HCG, URDS, ADDONUAPLUS, CUU #### [address] MCV (RBC) [Entitic vol] 91.9 fL Normal 80-100 [facility] Comment on above: Performed By: #### U HCG, URDS, ADDONUAPLUS, CUU #### [address] Mean Corpuscular HGB Conc 33.7 g/dL Normal 32.0-35.0 [facility] Comment on above: Performed By: #### U HCG, URDS, ADDONUAPLUS, CUU #### [address] Monocytes (Bld) [#/Vol] 0.3 10*3/uL Normal 0.0-0.8 [facility] Comment on above: Performed By: #### U HCG, URDS, ADDONUAPLUS, CUU #### [address] Monocytes/100 WBC (Bld) 17.67 % Normal 0.00-20.00 [facility] Comment on above: Performed By: #### U HCG, URDS, ADDONUAPLUS, CUU #### [facility] [address] [place] [address] [place] Monocytes/100 WBC (Bld) 5.2 % Normal . [facility] Comment on above: Performed By: #### U HCG, URDS, ADDONUAPLUS, CUU #### [facility] [address] [place] [address] Neutrophils (Bld) [#/Vol] 4.5 10*3/uL Normal 1.8-7.7 [facility] Comment on above: Performed By: #### U HCG, URDS, ADDONUAPLUS, CUU #### [address] Neutrophils/100 WBC (Bld) 68.9 % Normal . [facility] Comment on above: Performed By: #### U HCG, URDS, ADDONUAPLUS, CUU #### [facility] [address] [place] [address] NRBC% 0.1 /100{WBC} Normal 0-0.5 [facility] Comment on above: Performed By: #### U HCG, URDS, ADDONUAPLUS, CUU #### [address] Platelet mean volume (Bld) [Entitic vol] 8.7 fL Normal 6.3-10.7 [facility] Comment on above: Performed By: #### U HCG, URDS, ADDONUAPLUS, CUU #### [facility] [address] [place] [address] [place] Platelets (Bld) [#/Vol] 275 10*3/uL Normal 150-450 [facility] Comment on above: Performed By: #### U HCG, URDS, ADDONUAPLUS, CUU #### [facility] [address] [place] [address] [place] RBC (Bld) [#/Vol] 5.19 10*6/uL High 3.60-5.00 [facility] Comment on above: Performed By: #### U HCG, URDS, ADDONUAPLUS, CUU #### [address] [place] [address] [place] WBC (Bld) [#/Vol] 6.5 10*3/uL Normal 3.8-11.6 [facility] Comment on above: Performed By: #### U HCG, URDS, ADDONUAPLUS, CUU #### [address] Comprehensive Metabolic Pane selam 01-12-2023 Albumin [Mass/Vol] 5.3 g/dL Normal 3.5-5.7 [facility] Comment on above: Performed By: #### U HCG, URDS, ADDONUAPLUS, CUU #### [address] Albumin/Globulin [Mass ratio] 1.4 {ratio} Normal [facility] Comment on above: Performed By: #### U HCG, URDS, ADDONUAPLUS, CUU #### [address] ALP [Catalytic activity/Vol] 50 U/L Normal 34-104 [facility] Comment on above: Performed By: #### U HCG, URDS, ADDONUAPLUS, CUU #### [address] ALT [Catalytic activity/Vol] 10 U/L Normal 7-52 [facility] Comment on above: Performed By: #### U HCG, URDS, ADDONUAPLUS, CUU #### [address] Anion gap [Moles/Vol] 13.1 mmol/L Normal 6.0-15.0 [facility] Comment on above: Performed By: #### U HCG, URDS, ADDONUAPLUS, CUU #### [address] AST [Catalytic activity/Vol] 13 U/L Normal 13-39 [facility] Comment on above: Performed By: #### U HCG, URDS, ADDONUAPLUS, CUU #### [address] Bilirubin [Mass/Vol] 0.6 mg/dL Normal 0.3-1.0 [facility] Comment on above: Performed By: #### U HCG, URDS, ADDONUAPLUS, CUU #### [facility] [address] Calcium [Mass/Vol] 10.7 mg/dL High 8.6-10.3 [facility] Comment on above: Performed By: #### U HCG, URDS, ADDONUAPLUS, CUU #### [facility] [address] Chloride [Moles/Vol] 103 mmol/L Normal 98-107 [facility] Comment on above: Performed By: #### U HCG, URDS, ADDONUAPLUS, CUU #### [facility] [address] CO2 [Moles/Vol] 25.9 mmol/L Normal 21.0-31.0 [facility] Comment on above: Performed By: #### U HCG, URDS, ADDONUAPLUS, CUU #### [facility] [address] Creatinine [Mass/Vol] 0.65 mg/dL Normal 0.60-1.20 [facility] Comment on above: Performed By: #### U HCG, URDS, ADDONUAPLUS, CUU #### [facility] [address] [place] [address] [place] Creatinine Clr Calc Pharmacy 105.60 [facility] Comment on above: Result Comment: PERF ORMED BY: [facility] [address] [place] [address] PATHOLOGIST SAFEMAKER DANYELL LIVINGSTON M.D. Performed By: #### U HCG, URDS, ADDONUAPLUS, CUU #### [facility] [address] [place] [address] [place] GFR/1.73 sq M.predicted MDRD (S/P/Bld) [Vol rate/Area] mL/min/{1.73_m2} [facility] Comment on above: Performed By: #### U HCG, URDS, ADDONUAPLUS, CUU #### [facility] [address] Globulin (S) [Mass/Vol] 3.9 g/dL Normal [facility] Comment on above: Performed By: #### U HCG, URDS, ADDONUAPLUS, CUU #### [facility] [address] Glucose [Mass/Vol] 107 mg/dL High 70-100 [facility] Comment on above: Result Comment: [facility] Glucose Reference Range is dependent on time and content of last meal. Glucose of more than 200 mg/dL in a nonstressed, ambulatory subject supports the diagnosis of Diabetes Mellitus. ADA recommended reference range Performed By: #### U HCG, URDS, ADDONUAPLUS, CUU #### [address] Potassium [Moles/Vol] 3.0 mmol/L Low 3.5-5.1 [facility] Comment on above: Performed By: #### U HCG, URDS, ADDONUAPLUS, CUU #### [address] Protein [Mass/Vol] 9.2 g/dL High 6.4-8.9 [facility] Comment on above: Performed By: #### U HCG, URDS, ADDONUAPLUS, CUU #### [address] Sodium [Moles/Vol] 139 mmol/L Normal 136-145 [facility] Comment on above: Performed By: #### U HCG, URDS, ADDONUAPLUS, CUU #### [address] Urea nitrogen [Mass/Vol] 14 mg/dL Normal 7-25 [facility] Comment on above: Performed By: #### U HCG, URDS, ADDONUAPLUS, CUU #### [address] Consent for Treatmenton 04-0 3-2023 Consent for Treatment [id number] #1.00CD:[address] [facility] Creatinine [Mass/volume] in Serum or PlasmaOrdered By: Jose Moses on 01-12-2023 Creatinine [Mass/Vol] 0.65 mg/dL 0.60-1.20 [facility] DRUG SCREEN RAPID (URINE)on 01-12-2023 AMP Positive Abnormal NEGATIVE [facility] Comment on above: Performed By: #### C BC #### [facility] [address] [place] [address] Dr. Efren Parra BAR Negative Normal NEGATIVE [facility] Comment on above: Performed By: #### C BC #### [facility] [address] [place] [address] Dr. Efren Parra BUP Negative Normal NEGATIVE [facility] Comment on above: Performed By: #### C BC #### [facility] [address] [address] [address] Efren Parra BZO Negative Normal NEGATIVE [facility] Comment on above: Performed By: #### C BC #### [facility] [address] [address] [address] Efren Parra RENEA Negative Normal NEGATIVE [facility] Comment on above: Performed By: #### C BC #### [facility] [address] [place] [address] Dr. Efren Parra CUT-OFFS SEE BELOW Normal [facility] Comment on above: Result Comment: AMP [...] ng/mL Performed By: #### C BC #### [facility] [address] [place] [address] Dr. Efren Parra DRUG CUT HEADER DRUG CLASS TEST SYSTEM CUT-OFF CONCENTRATIONS ARE FOLLOWS: Normal [facility] Comment on above: Performed By: #### C BC #### [facility] [address] [place] [address] Dr. Erfen Parra mAMP Positive Abnormal NEGATIVE [facility] Comment on above: Performed By: #### C BC #### [facility] [address] [place] [address] Dr. Efren Parra MTD Positive Abnormal NEGATIVE [facility] Comment on above: Performed By: #### C BC #### [facility] [address] [place] [address] Dr. Efren Parra OPI Negative Normal NEGATIVE [facility] Comment on above: Performed By: #### C BC #### [facility] [address] [place] [address] Dr. Efren Parra OXY Negative Normal NEGATIVE [facility] Comment on above: Performed By: #### C BC #### [facility] [address] [place] [address] Dr. Efren Parra PCP Negative Normal NEGATIVE [facility] Comment on above: Performed By: #### C BC #### [facility] [address] [place] [address] Dr. Efren Parra PPX Negative Normal NEGATIVE [facility] Comment on above: Performed By: #### C BC #### [facility] [address] [place] [address] Dr. Efren Parra TCA Positive Abnormal NEGATIVE [facility] Comment on above: Performed By: #### C BC #### [facility] [address] [place] [address] Dr. Efren Parra THC Negative Normal NEGATIVE [facility] Comment on above: Performed By: #### C BC #### [facility] [address] [place] [address] Dr. Efren Parra Dipstick and Microscopicon 0 01-12-2023 Appearance (U) Cloudy Critically abnormal [facility] Comment on above: Order Comment: Name Collection Type:: Clean-Voided Midstream Performed By: #### U HCG, URDS, ADDONUAPLUS, CUU #### [facility] [address] [place] [address] [place] Bacteria,Urine 4+ High None Seen [facility] Comment on above: Order Comment: Name Collection Type:: Clean-Voided Midstream Performed By: #### U HCG, URDS, ADDONUAPLUS, CUU #### [facility] [address] [place] [address] [place] Bilirubin,Urine Negative Normal Negative [facility] Comment on above: Order Comment: Name Collection Type:: Clean-Voided Midstream Performed By: #### U HCG, URDS, ADDONUAPLUS, CUU #### [facility] [address] [place] [address] Color (U) Yellow Normal Yellow [facility] Comment on above: Order Comment: Name Collection Type:: Clean-Voided Midstream Performed By: #### U HCG, URDS, ADDONUAPLUS, CUU #### [facility] [address] [place] [address] Glucose Ql (U) Normal Normal Normal [facility] Comment on above: Order Comment: Name Collection Type:: Clean-Voided Midstream Performed By: #### U HCG, URDS, ADDONUAPLUS, CUU #### [facility] [address] [place] [address] [place] Hyaline Casts,Urine 9-19 High 0-8 [facility] Comment on above: Order Comment: Name Collection Type:: Clean-Voided Midstream Performed By: #### U HCG, URDS, ADDONUAPLUS, CUU #### [facility] [address] [place] [address] [place] Ketones Ql (U) Trace High Negative [facility] Comment on above: Order Comment: Name Collection Type:: Clean-Voided Midstream Performed By: #### U HCG, URDS, ADDONUAPLUS, CUU #### [facility] [address] [place] [address] [place] Leukocyte esterase Test strip Ql (U) 2+ High Negative [facility] Comment on above: Order Comment: Name Collection Type:: Clean-Voided Midstream Performed By: #### U HCG, URDS, ADDONUAPLUS, CUU #### [facility] [address] [place] [address] Nitrite,Urine Positive High Negative [facility] Comment on above: Order Comment: Name Collection Type:: Clean-Voided Midstream Performed By: #### U HCG, URDS, ADDONUAPLUS, CUU #### [address] Occult Blood,Urine Trace High Negative [facility] Comment on above: Order Comment: Name Collection Type:: Clean-Voided Midstream Performed By: #### U HCG, URDS, ADDONUAPLUS, CUU #### [address] pH (U) 6.0 [pH] Normal 5.0-9.0 [facility] Comment on above: Order Comment: Name Collection Type:: Clean-Voided Midstream Performed By: #### U HCG, URDS, ADDONUAPLUS, CUU #### [facility] [address] [place] [address] Protein,Urine Negative Normal Negative [facility] Comment on above: Order Comment: Name Collection Type:: Clean-Voided Midstream Performed By: #### U HCG, URDS, ADDONUAPLUS, CUU #### [facility] [address] [place] [address] RBC,Urine 3-4 Normal 0-4 [facility] Comment on above: Order Comment: Name Collection Type:: Clean-Voided Midstream Performed By: #### U HCG, URDS, ADDONUAPLUS, CUU #### [facility] [address] [place] [address] Specificy [place],Urine 1.020 Normal 1.001-1.030 [facility] Comment on above: Order Comment: Name Collection Type:: Clean-Voided Midstream Performed By: #### U HCG, URDS, ADDONUAPLUS, CUU #### [facility] [address] [place] [address] Squamous Epithelial Cell,Urine 5-9 High 0-2 [facility] Comment on above: Order Comment: Name Collection Type:: Clean-Voided Midstream Performed By: #### U HCG, URDS, ADDONUAPLUS, CUU #### [address] Urobilinogen,Urine Normal Normal Normal [facility] Comment on above: Order Comment: Name Collection Type:: Clean-Voided Midstream Performed By: #### U HCG, URDS, ADDONUAPLUS, CUU #### [address] WBC,Urine 10-19 High 0-4 [facility] Comment on above: Order Comment: Name Collection Type:: Clean-Voided Midstream Performed By: #### U HCG, URDS, ADDONUAPLUS, CUU #### [address] Discharge Instructionson Discharge Instructions [id number] [facility] Drug Screen,Urineon 01-13-20 23 Amphetamine Screen,Urine Positive High Negative [facility] Comment on above: Performed By: #### U HCG, URDS, ADDONUAPLUS, CUU #### [address] Barbiturate Screen,Urine Negative Normal Negative [facility] Comment on above: Performed By: #### U HCG, URDS, ADDONUAPLUS, CUU #### [address] Benzodiazepines Screen,Urine Negative Normal Negative [facility] Comment on above: Performed By: #### U HCG, URDS, ADDONUAPLUS, CUU #### [address] Cannabinoid Screen,Urine Negative Normal Negative [facility] Comment on above: Result Comment: Thes e are unconfirmed results and should not be used for legal purposes. Drug Cut-Off Concentration: AMPH 1000 ng/mL SARA 200 ng/mL MARTÍNEZ 200 ng/mL COCM 300 ng/mL OP 300 ng/mL PCP 25 ng/mL THC 20 ng/mL PERFORMED BY: [place] [address] PATHOLOGIST SAFEMAKER DANYELL LIVINGSTON M.D. Performed By: #### U HCG, URDS, ADDONUAPLUS, CUU #### [facility] [address] [place] [address] Cocaine Screen,Urine Negative Normal Negative [facility] Comment on above: Performed By: #### U HCG, URDS, ADDONUAPLUS, CUU #### [facility] [address] [place] [address] Opiate Screen,Urine Negative Normal Negative [facility] Comment on above: Performed By: #### U HCG, URDS, ADDONUAPLUS, CUU #### [facility] [address] [place] [address] Phencyclidine Screen,Urine Negative Normal Negative [facility] Comment on above: Performed By: #### U HCG, URDS, ADDONUAPLUS, CUU #### [facility] [address] [place] [address] ED Clinical Summaryon 2022 ED Clinical Summary [place] [id number] ED Clinical Summary Person Information Name: LORNA DEUTSCH/[facility] Age: 38 Years : 1985 Sex: Female Language: Georgian PCP: Cris PENA CNP Marital Status: Phone: [phone] Visit Id: Visit Reason: Anxiety; Medical problem [...] 01/12/2023 02:02:29 01/12/2023 02:02:29 01/12/2023 02:02:29 ADDRESS: [id number] [id number] [facility] DOC NOTES: MEDICAL INFORMATION: Prescriptions Given: Medications [...] Follow up: With: Address: When: Cris PENA [address] [place], [place] [id number] Business (1) In 3 days 01/15/2023 Comments: You can use the hydroxyzine every 8 hours as needed. Please follow-up with your primary care doctor next 2 to 3 days. Please return to the ED for any new or worsening symptoms DIAGNOSIS: Anxiety; Drug-seeking behavior Normal [facility] ED Note-Nursingon 01-12-2023 ED Note-Nursing pt [...] her boyfriend to drive her home Normal [facility] ED Note-Nursing pt arrived to ed from home via private car with her boyfriend c/o anxiety. pt states she missed her methadone appointment 4 days ago and has an appointment this morning. pt asking for ativan. pt denies any other compaints at this time. pt is very restless on assessment. Normal [facility] ED Note-Physicianon 01-13-20 ED Note-Physician Basic Information Time Seen: J Luis Maciedelgado Gallardo 01/12/2023 01:33 Chief Complaint states hasn't made [...] and Complexity of Problems Differential Diagnosis: [] MDM Data External documents reviewed: [] My EKG [...] Daily Follow-up With When Contact Information Cris PENA In 3 days 01/15/2023 EDT [address] [place] [address]- Business (1) Additional Instructions: You can use [...] methadone, 180 (more content not included)... Normal [facility] Comment on above: Result Comment: Elec [...] Follow these instructions at home: ? Take nmpv-srf-lhzqgmw and prescription medicines only as told by [...] A persistent (more content not included)... Normal [facility] ED Patient Summaryon 023 ED Patient Summary [place] [id number] Patient Discharge Instructions Person Information Name: LORNA DEUTSCH Age: 38 Years Arrival Date: 01/12/2023 01:30:57 Discharge Diagnosis: Anxiety; Drug-seeking behavior Primary Care Physician: Cris PENA CNP Provider Information Primary Provider: Norma Dietz DO Advanced Pot Pusher:None The exam and treatment you received in the Emergency Department were for an urgent problem and are not intended as complete care. It is important that you follow up with a doctor, nurse practitioner, or physician?s certified surgical tech/first assistant for ongoing care. If your symptoms [...] With: Address: When: Cris PENA [address] [place] [address] [employer] (1) In 3 days 01/15/2023 Comments: You [...] opioids can be used to help relieve pbvjllei-fq-ukoobw pain and are often prescribed following a [...] and overdose. (more content not included)... Normal [facility] ER URINE PROFILEon 3 Bilirubin Ql (U) Negative Normal NEGATIVE [facility] Comment on above: Performed By: #### C BC #### [facility] [address] [place], [place] [address] Dr. Efren Parra Clarity (U) CLEAR Normal CLEAR [facility] Comment on above: Performed By: #### C BC #### [facility] [address] [place] [address] [address] Efren Parra Color (U) YELLOW Normal YELLOW [facility] Comment on above: Performed By: #### C BC #### [facility] [address] [place] [address] Dr. Efren SETH A micrscopic examination will be performed if indicated. Normal [facility] Comment on above: Performed By: #### C BC #### [facility] [address] [place] [address] Dr. Efren Parra Glucose Ql (U) Negative Normal NEGATIVE [facility] Comment on above: Performed By: #### C BC #### [facility] [address] [place] [address] Dr. Efren Parra Hemoglobin Ql (U) SMALL Abnormal NEGATIVE [facility] Comment on above: Performed By: #### C BC #### [facility] [address] [place] [address] Dr. Efren Parra Ketones Ql (U) 15 mg/dl Abnormal NEGATIVE [facility] Comment on above: Performed By: #### C BC #### [facility] [address] [place] [address] Dr. Efren Parra LEUKOCYTES Negative Normal NEGATIVE [facility] Comment on above: Performed By: #### C BC #### [facility] [address] [place] [address] Dr. Efren Parra Nitrite Ql (U) Negative Normal NEGATIVE [facility] Comment on above: Performed By: #### C BC #### [facility] [address] [place] [address] Dr. Efren Parra pH (U) 7.0 [pH] Normal 5-9 [facility] Comment on above: Performed By: #### C BC #### [facility] [address] [place] [address] Dr. Efren Parra SPEC GRAVITY 1.020 Normal 1.005-<=1.025 [facility] Comment on above: Performed By: #### C BC #### [facility] [address] [place] [address] Dr. Efren Parra UA PROTEIN Negative Normal NEGATIVE/ TRACE [facility] Comment on above: Performed By: #### C BC #### [facility] [address] [place] [address] [address] Efren Parra UR MICRO IND INDICATED Normal [facility] Comment on above: Performed By: #### C BC #### [facility] [address] [place] [address] [address] Efren Parra Urobilinogen Qn (U) 1.0 {Adria'U}/dL Normal 0.2 - 1. 0 [facility] Comment on above: Performed By: #### C BC #### [facility] [address] [place] [address] [address] Efren Parra ETHANOL (BLD ALC)on 01-13-20 ALC NOTE NOTE: 80 mg/dl is the legal limit for a blood alcohol level Normal [facility] Comment on above: Performed By: #### P REG #### [facility] [address] [place] [address] Dr. Efren Parra Ethanol [Mass/Vol] mg/dL Normal [facility] Comment on above: Performed By: #### P REG #### [facility] [address] [place] [address] Dr. Efren Parra Eosinophils Auto (Bld) [#/Vo l]Ordered By: Jose Moses on 01-12-2023 Eosinophils (Bld) [#/Vol] 0.0 10*3/uL 0.0-0.45 [facility] Eosinophils/100 WBC Auto (Bl d)Ordered By: Jose Moses on 01-12-2023 Eosinophils/100 WBC (Bld) 0.2 % . [facility] Erythrocyte distribution wid th Auto (RBC) [Ratio]Ordered By: Jose Moses on 01-12-2023 Erythrocyte distribution width (RBC) [Ratio] 14.2 % 11.9-15.3 [facility] Ethanol [Mass/volume] in Ser um or PlasmaOrdered By: Jose Moses on 01-12-2023 Ethanol [Mass/Vol] mg/dL [facility] Ethanol [Mass/Vol] TNP [facility] Comment on above: Test not performed Ethyl Alcohol Profileon Ethanol [Mass/Vol] mg/dL Normal [facility] Comment on above: Performed By: #### U HCG, URDS, ADDONUAPLUS, CUU #### [facility] [address] Percent Ethanol Not performed Normal [facility] Comment on above: Result Comment: PERF ORMED BY: [place] [address] PATHOLOGIST SAFEMAKER DANYELL LIVINGSTON M.D. Performed By: #### U HCG, URDS, ADDONUAPLUS, CUU #### [facility] [address] [place] [address] Globulin Calc (S) [Mass/Vol] Ordered By: Jose Moses on 01-12-2023 Globulin (S) [Mass/Vol] 3.9 g/dL [facility] Glucose [Mass/volume] in Ser um or PlasmaOrdered By: Jose Moses on 01-12-2023 Glucose [Mass/Vol] 107 mg/dL 70-100 [facility] Comment on above: ADA recommended refe rence rangeRandom Glucose Reference Range is dependent on time and content of last meal. Glucose of more than 200 mg/dL in a nonstressed, ambulatory subject supports the diagnosis of Diabetes Mellitus. HCG ( test) IA.rapi d Ql (U)Ordered By: Jose Moses on 01-12-2023 HCG ( test) Ql (U) Negative [facility] HCG,Urineon 01-12-2023 Beta HCG ( test) Ql (U) Negative Normal [facility] Comment on above: Order Comment: Name Collection Type:: Clean-Voided Midstream Result Comment: PERF ORMED BY: [place] [address] PATHOLOGIST SAFEMAKER DANYELL LIVINGSTON M.D. Performed By: #### U HCG, URDS, ADDONUAPLUS, CUU #### [facility] [address] [place], [place] [id number] [facility] Hematocrit Auto (Bld) [Volum e fraction]Ordered By: Jose Moses on 01-12-2023 Hematocrit (Bld) [Volume fraction] 47.7 % 34.0-46.4 [facility] Hemoglobin [Mass/volume] in BloodOrdered By: Jose Moses on 01-12-2023 Hemoglobin (Bld) [Mass/Vol] 16.1 g/dL 11.8-15.4 [facility] Ketones Auto test strip (U) [Mass/Vol]Ordered By: Jose Moses on 01-12-2023 Ketones (U) [Mass/Vol] Trace Negative [facility] - UrinalysisOrder ed By: Jose Moses on 01-12-2023 Hyaline casts LM Ql (Urine sed) 9-19 [LPF] 0-8 [facility] Leukocytes [#/volume] correc neema for nucleated erythrocytes in Blood by Automated counOrdered By: Jose Moses on 01-12-2023 WBC corrected for nucl RBC Auto (Bld) [#/Vol] 6.5 10*3/uL 3.8-11.6 [facility] Lymphocytes Auto (Bld) [#/Vo l]Ordered By: Jose Moses on 01-12-2023 Lymphocytes (Bld) [#/Vol] 1.7 10*3/uL 1.00-4.8 [facility] Lymphocytes/100 WBC Auto (Bl d)Ordered By: Jose Moses on 01-12-2023 Lymphocytes/100 WBC (Bld) 25.4 % . [facility] MCH Auto (RBC) [Entitic mass ]Ordered By: Jose Moses on 01-12-2023 MCH (RBC) [Entitic mass] 30.9 pg 24.7-34.3 [facility] MCHC Auto (RBC) [Mass/Vol]Or dered By: Jose Moses on 01-12-2023 MCHC (RBC) [Mass/Vol] 33.7 g/dL 32.0-35.0 [facility] MCV Auto (RBC) [Entitic vol] Ordered By: Jose Moses on 01-12-2023 MCV (RBC) [Entitic vol] 91.9 fL 80-100 [facility] Monocyte distribution width [Entitic volume] in Blood by AutomatedOrdered By: Jose Moses on 01-12-2023 Monocyte distribution width Auto (Bld) [Entitic vol] 17.67 % 0.00-20.00 [facility] Monocytes Auto (Bld) [#/Vol] Ordered By: Jose Moses on 01-12-2023 Monocytes (Bld) [#/Vol] 0.3 10*3/uL 0.0-0.8 [facility] Monocytes/100 WBC Auto (Bld) Ordered By: Jose Moses on 01-12-2023 Monocytes/100 WBC (Bld) 5.2 % . [facility] Neutrophils Auto (Bld) [#/Vo l]Ordered By: Jose Moses on 01-12-2023 Neutrophils (Bld) [#/Vol] 4.5 10*3/uL 1.8-7.7 [facility] Neutrophils/100 WBC Auto (Bl d)Ordered By: Jose Moses on 01-12-2023 Neutrophils/100 WBC (Bld) 68.9 % . [facility] Nitrite Test strip Ql (U)Ord ered By: Jose Moses on 01-12-2023 Nitrite Ql (U) Positive Negative [facility] No Panel InformationOrdered By: Jose Moses on 01-12-2023 Estimated GFR (CKD-EPI) > 60.0 mL/Min [facility] Creatinine Clearance (Chem 105.60 [facility] Nucleated erythrocytes [Pres ence] in Blood by Automated countOrdered By: Jose Moses on 01-12-2023 Nucleated RBC Auto Ql (Bld) 0.1 /100{WBC} 0-0.5 [facility] Opiates [Presence] in Urine by Screen methodOrdered By: Jose Moses on 01-12-2023 Opiates Screen Ql (U) Negative Negative [facility] URon 01-12-2023 , QUAL Negative Normal NEGATIVE [facility] Comment on above: Performed By: #### C BC #### [facility] [address] [place] [address] [address] Efren Parra PROF 14(COMP METB)on 023 Albumin [Mass/Vol] 4.3 g/dL Normal 3.4-5.0 [facility] Comment on above: Performed By: #### P REG #### [facility] [address] [place] [address] [address] Efren Parra Albumin/Globulin [Mass ratio] 1.0 {ratio} Normal [facility] Comment on above: Performed By: #### P REG #### [facility] [address] [place] [address] [address] Efren Parra ALP [Catalytic activity/Vol] 58 U/L Normal 46-116 [facility] Comment on above: Performed By: #### P REG #### [facility] [address] [place] [address] [address] Efren Parra ALT [Catalytic activity/Vol] 17 U/L Normal 14-59 [facility] Comment on above: Performed By: #### P REG #### [facility] [address] [place] [address] Dr. Efren Parra Anion gap [Moles/Vol] 17.6 mmol/L Normal [facility] Comment on above: Performed By: #### P REG #### [facility] [address] [place] [address] Dr. Efren Parra AST [Catalytic activity/Vol] 11 U/L Critically low 15-37 [facility] Comment on above: Performed By: #### P REG #### [facility] [address] [place] [address] Dr. Efren Parra Bilirubin [Mass/Vol] 0.4 mg/dL Normal 0.2-1.0 [facility] Comment on above: Performed By: #### P REG #### [facility] [address] [place] [address] Dr. Efren Parra Calcium [Mass/Vol] 9.8 mg/dL Normal 8.5-10.1 [facility] Comment on above: Performed By: #### P REG #### [facility] [address] [place] [address] Dr. Efren Parra Chloride [Moles/Vol] 102 mmol/L Normal 98-107 [facility] Comment on above: Performed By: #### P REG #### [facility] [address] [place] [address] Dr. Efren Parra CO2 [Moles/Vol] 25.1 mmol/L Normal 21.0-32.[address] [facility] Comment on above: Performed By: #### P REG #### [facility] [address] [place] [address] [address] Efren Parra Creatinine [Mass/Vol] 0.75 mg/dL Normal 0.55-1.02 [facility] Comment on above: Performed By: #### P REG #### [facility] [address] [place] [address] [address] Efren Parra EGFR-AF MONTENEGRIN >60 Normal >=60 [facility] Comment on above: Performed By: #### P REG #### [facility] [address] [place] [address] [address] Efren Parra EGFR-NON AF MONTENEGRIN >60 Normal >=60 [facility] Comment on above: Performed By: #### P REG #### [facility] [address] [place] [address] Dr. Efren Parra Globulin (S) [Mass/Vol] 4.2 g/dL Normal [facility] Comment on above: Performed By: #### P REG #### [facility] [address] [place] [address] Dr. Efren Parra Glucose [Mass/Vol] 105 mg/dL Normal 74-[address] [facility] Comment on above: Performed By: #### P REG #### [facility] [address] [place] [address] Dr. Efren Parra Potassium [Moles/Vol] 3.7 mmol/L Normal 3.5-5.1 [facility] Comment on above: Performed By: #### P REG #### [facility] [address] [place] [address] [address] Efren Parra Protein [Mass/Vol] 8.5 g/dL Critically high 6.4-8.2 [facility] Comment on above: Performed By: #### P REG #### [facility] [address] [place] [address] [address] Efren Parra Sodium [Moles/Vol] 141 mmol/L Normal 136-145 [facility] Comment on above: Performed By: #### P REG #### [facility] [address] [place] [address] [address] Efren Parra Urea nitrogen [Mass/Vol] 17.0 mg/dL Normal 7.0-18.0 [facility] Comment on above: Performed By: #### P REG #### [facility] [address] [place] [address] [address] Efren Parra Urea nitrogen/Creatinine [Mass ratio] 22.7 mg/mg Normal [facility] Comment on above: Performed By: #### P REG #### [facility] [address] [place] [address] [address] Efren Parra Phencyclidine Screen Ql (U)O rdered By: Jose Moses on 01-12-2023 Phencyclidine Ql (U) Negative Negative [facility] Platelet mean volume Auto (B ld) [Entitic vol]Ordered By: Jose Moses on 01-12-2023 Platelet mean volume (Bld) [Entitic vol] 8.7 fL 6.3-10.7 [facility] Platelets Auto (Bld) [#/Vol] Ordered By: Jose Moses on 01-12-2023 Platelets (Bld) [#/Vol] 275 10*3/uL 150-450 [facility] Potassium [Moles/volume] in Serum or PlasmaOrdered By: Jose Moses on 01-12-2023 Potassium [Moles/Vol] 3.0 mmol/L 3.5-5.1 [facility] Protein Auto test strip (U) [Mass/Vol]Ordered By: Jose Moses on 01-12-2023 Protein (U) [Mass/Vol] Negative Negative [facility] Protein [Mass/volume] in Ser um or PlasmaOrdered By: Jose Moses on 01-12-2023 Protein [Mass/Vol] 9.2 g/dL 6.4-8.9 [facility] RBC Auto (Bld) [#/Vol]Ordere d By: Jose Moses on 01-12-2023 RBC (Bld) [#/Vol] 5.19 10*6/uL 3.60-5.00 [facility] Serum or plasma albumin/glob ulin mass ratioOrdered By: Jose Moses on 01-12-2023 Albumin/Globulin [Mass ratio] 1.4 {ratio} [facility] Serum or plasma anion gap de terminationOrdered By: Jose Moses on 01-12-2023 Anion gap [Moles/Vol] 13.1 mmol/L 6.0-15.0 [facility] Sodium [Moles/volume] in Ser um or PlasmaOrdered By: Jose Moses on 01-12-2023 Sodium [Moles/Vol] 139 mmol/L 136-145 [facility] Specific gravity Auto test s trip (U) [Rel density]Ordered By: Jose Moses on 01-12-2023 Specific gravity (U) [Rel density] 1.020 1.001-1.030 [facility] Squamous epithelial cells de tection in urine sediment by light microscopyOrdered By: Jose Moses on 01-12-2023 Epithelial cells.squamous LM Ql (Urine sed) 5-9 [HPF] 0-2 [facility] URINE MICROSCOPIC ONLYon BACTERIA LARGE Abnormal NONE SEEN [facility] Comment on above: Performed By: #### C BC #### [facility] [address] [place] [address] Dr. Efren Parra Bacteria identified Cx Nom (U) INDICATED Normal [facility] Comment on above: Performed By: #### C BC #### [facility] [address] [place] [address] Dr. Efren Parra CAST NONE SEEN Normal NONE SEEN [facility] Comment on above: Performed By: #### C BC #### [facility] [address] [place] [address] Dr. Efren Parra Crystals LM Nom (Urine sed) NONE SEEN Normal NONE SEEN [facility] Comment on above: Performed By: #### C BC #### [facility] [address] [place] [address] Dr. Efren Parra Epithelial cells LM Ql (Urine sed) FEW Abnormal NONE SEEN /RARE [facility] Comment on above: Performed By: #### C BC #### [facility] [address] [place] [address] [address] Efren Parra MUCOUS NONE SEEN Normal NONE SEEN [facility] Comment on above: Performed By: #### C BC #### [facility] [address] [place] [id number] Efren Parra RBC 2-5 Abnormal 0-2 [facility] Comment on above: Performed By: #### C BC #### [facility] [address] [place] [id number] Efren Parra WBC 0-2 Abnormal NONE SEEN [facility] Comment on above: Performed By: #### C BC #### [facility] [address] [place] [address] [address] Efren Parra Urea nitrogen [Mass/volume] in Serum or PlasmaOrdered By: Jose Moses on 01-12-2023 Urea nitrogen [Mass/Vol] 14 mg/dL 7-25 [facility] Urine Cultureon 01-12-2023 Bacteria identified Cx Nom (U) ORGANISM: Escherichia coli (O:ESCCOL) [place] Count >100,000 Aerobic ATUL Charge ([id number]) ----- [...] RESISTANT TO ALL B-LACTAM DRUGS. PERFORMED BY: [facility] [address] [place] [address] PATHOLOGIST SAFEMAKER DANYELL LIVINGSTON M.D. Normal [facility] [facility] Comment on above: Performed By: #### U HCG, URDS, ADDONUAPLUS, CUU #### [facility] [address] [place] [address] Urine bacteria detection by automated methodOrdered By: Jose Moses on 01-12-2023 Bacteria Auto Ql (U) 4+ None Seen [facility] Urine clarity by refractomet ry automatedOrdered By: Jose Moses on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 (Urine sed) [#/Area] 5-8 Normal 0-2 [facility] Comment on above: Performed By: #### 1 [id number] #### [facility] [address] [place] [address] Glucose Test strip (U) [Mass/Vol] Negative Normal Negative [facility] Comment on above: Performed By: #### 1 [id number] #### [facility] [address] [place] [address] Hemoglobin Ql (U) 2+ Abnormal Negative [facility] Comment on above: Performed By: #### 1 [id number] #### [facility] [address] [place] [address] Ketones (U) [Mass/Vol] 1+ Abnormal Negative Fi [facility] Comment on above: Performed By: #### 1 [id number] #### [facility] [address] [place] [address] [place].plasma/[place] .RBC (Bld) [Mass ratio] 4-20 Normal 0-3 [facility] Comment on above: Performed By: #### 1 [id number] #### [facility] [address] [place] [address] Mucus Ql (Urine sed) 2+ Normal [facility] Comment on above: Performed By: #### 1 [id number] #### [facility] [address] [place] [address] Nitrite Ql (U) Negative Normal Negative [facility] Comment on above: Performed By: #### 1 [id number] #### [facility] [address] [place] [address] pH (U) 6.0 [pH] Normal 5.0-9.0 [facility] Comment on above: Performed By: #### 1 [id number] #### [facility] [address] [place] [address] Protein (U) [Mass/Vol] TRACE Abnormal Negative [facility] Comment on above: Performed By: #### 1 [id number] #### [facility] [address] [place] [address] Specific gravity (U) [Rel density] >=1.030 Normal 1.005-1.030 [facility] Comment on above: Performed By: #### 1 [id number] #### [facility] [address] [place] [address] Type of Urine collection method Clean Catch Normal [facility] Comment on above: Performed By: #### 1 [id number] #### [facility] [address] [place] [address] Urobilinogen Qn (U) 1.0 {Adria'U}/dL Normal 0.0-1.0 [facility] Comment on above: Performed By: #### 1 [id number] #### [facility] [address] [place] [address] WBC Auto Ql (U) Negative Normal Negative [facility] Comment on above: Performed By: #### 1 [id number] #### [facility] [address] [place] [address] WBC LM.HPF (Urine sed) [#/Area] 0-5 Normal 0-5 [facility] Comment on above: Performed By: #### 1 [id number] #### [facility] [address] [place] [address] URINALYSISOrdered By: Bradley Novak on 11-10-2022 Bacteria LM Ql (Urine sed) 1+ /HPF Invalid Interpretation Code Trace/HPF [facility] UA Auto SS Bilirubin Ql (U) 2+ *ABN* (11/10/22 1:49 AM) Invalid Interpretation Code Negative [facility] UA Auto SS Clarity (U) Slightly Cloudy [...] Interpretation Code Negative [facility] UA Auto SS [place].plasma/[place] .RBC (Bld) [Mass ratio] 4-20 /HPF Normal [...] [facility] UA Auto SS Urobilinogen Qn (U) 1.3528029 {Adria'U}/dL Normal 0.0 - 1.0 EU/dL [facility] UA Auto SS WBC Auto Ql (U) Negative (11/10/22 1:49 AM) Normal Negative [facility] UA Auto SS WBC LM.HPF (Urine sed) [#/Area] 0-5 /HPF Normal 0-5/HPF [facility] UA Auto SS Valuables Checkliston 2022 Valuables Checklist [id number] 8#1.00CD:[address] [facility] XR Chest Single Viewon 11-10 XR [...] Kane Lemus M.D. Transcribed by: BIANCA Technologist: SANDY Normal [facility] XR Pelvis 1 or 2 Viewson [...] REPORT Dictated: 11/10/2022 8:37 am Jose Vang MD Signed (Electronic Signature): 11/10/2022 8:37 am Signed by: Jose Vang MD Transcribed by: BIANCA Technologist: SANDY Normal [facility] eGFRon 11-10-2022 GFR/1.73 sq M.predicted among blacks MDRD (S/P/Bld) [Vol rate/Area] mL/min/{1.73_m2} Normal >=59 [facility] Comment on above: Order Comment: Order added by Discern Expert. Result Comment: eGFR is race adjusted. AA=. Performed By: #### 2 [id number], [id number], [id number], [id number], [id number], [id number] ####[facility] [address] [place] [address] GFR/1.73 sq M.predicted among non-blacks MDRD (S/P/Bld) [Vol rate/Area] mL/min/{1.73_m2} Normal >=59 [facility] Comment on above: Order Comment: Order added by Discern Expert. Result Comment: Associate Editor benny kidney disease could be indicated at eGFR's of less than 60 mL/min/1.73m2. Kidney failure is indicated at less than 15 mL/min/1.73m2. Performed By: #### 2 [id number], [id number], [id number], [id number], [id number], [id number] ####[facility] [address] [place] [address] Consent for Treatmenton 10-13 Consent for Treatment [id number] 4#1.00CD:[address] [facility] Medication Consenton 023 Medication Consent [id number] #1.00CD:[address] [facility] Ambulatory Visit Summaryon 0 11-06-2022 Ambulatory Visit Summary TREVOR LORNA E :1985 Visit Date:11/06/2022 Ambulatory Visit Instructions Your Diagnosis ADHD Paranoid schizophrenia History of drug abuse Neuropathy Chronic hepatitis C Smoker Your Care Team Attending Physician - Cris PEAN CNP Primary Care Physician - Cris PENA CNP This Is Your Medications List amphetamine-dextroam phetamine (Adderall 20 mg Tab) divalproex sodium (Depakote DR 500 mg Tab-EC) gabapentin (gabapentin 400 mg Cap) hydrOXYzine (hydrOXYzine hydrochloride 10 mg/5 mL Oral Syrup) quetiapine (SEROquel 200 mg Tab) Contact prescribing physician if questions or concerns albuterol (albuterol 0.083% Inh Vrea 3 mL) albuterol (albuterol HFA 90 mcg/inh MDI) budesonide (Pulmicort Flexhaler 180 mcg/inh Powder) divalproex sodium (Depakote) methadone Procedures Performed teeth extraction (10/12/2011), denies. Discharge Vitals Heart Rate (Peripheral) 96 Blood Pressure 132/88 Height 167 cm Height 66 in Weight 68.2 kg Weight 150.04 lb BMI 24.45 What to do next Scheduled Follow-Up Appointments 2022 2:20 PM EDT With: Cris PENA CNP Where: [facility] [place] Normal [address] [place] [address]-\.br\ You Need to Schedule the Following Appointments\.b r\ Follow Up with Cris PENA CNP When: In 3 months\.br\ Where:\.br\ [address]br\ [place] [address]-\.br\ \.br\ Medications\.br \ What How Much When Why Instructions\.b r\ Changed amphetamine-dex troamphetamine (Adderall 20 mg Tab) 10 Milligram By Mouth 2 times a day ADHD 30 day supply Pickup at [facility] #18904\.br\ Changed hydrOXYzine (hydrOXYzine hydrochloride 10 mg/ 5 mL Oral Syrup) 10 Milliliter By Mouth 4 times a day as needed for as needed for anxiety Pickup at [facility] #[id number]\.br\ Changed quetiapine (SEROquel 200 mg Tab) 1 Tablets By Mouth Once a day (in the evening) Pickup at [facility] #11818\.br\ Unchanged divalproex sodium (Depakote DR 500 mg Tab-EC) See instructions Take one (1) AM and two (2) HS po Pickup at [facility] #44876\.br\ Unchanged gabapentin (gabapentin 400 mg Cap) See instructions 1 cap(s) Oral 5 x per day Pickup at [facility] #18186\.br\ Unchanged albuterol (albuterol 0.083% Inh Vera 3 [...] questions or concerns \.br\ Pharmacy Information\.br \ [facility] #84757: [address] [place], [place] [id number] [phone]\.br\ Allergies\.br\ No Known Allergies\.br\ Problems\.br\ Ongoing - [...] during \.br\ Tobacco use during \.br\ \.br\ [facility] COVID-19 SOFIAOrdered By: Ezio Reyes on 08-08-2022 SARS-CoV+SARS-CoV-2 (COVID-19) Ag IA.rapid Ql (Resp) Negative Negative [facility] Comment on above: This is a duplicate Martina SARS Antigen (NATE) result to be used for statistical tracking purpose only. No Panel InformationOrdered By: Rachael Reyes on 08-08-2022 SARS Antigen (LFIA) [facility] XR CHEST 1 Von 06-23-2022 XR [...] ALBINA BRODERICK Date: 2022-06-22 22:40 Normal [facility] CBC AUTO DIFFon 06-22-2022 BASO # 0.0 103/ul Normal 0.0-0.1 [facility] Comment on above: Performed By: #### C BC #### [facility] [address] [place] [address] [address] Efren Parra Basophils/100 WBC (Bld) 0.2 % Normal 0.2-2.0 [facility] Comment on above: Performed By: #### C BC #### [facility] [address] [address] [address] Efren Parra EO # 0.0 103/ul Normal 0.0-0.7 [facility] Comment on above: Performed By: #### C BC #### [facility] [address] [address] [address] Efren Parra Eosinophils/100 WBC (Bld) 0.1 % Critically low 0.9-7.0 [facility] Comment on above: Performed By: #### C BC #### [facility] [address] [address] [address] Efren Parra Erythrocyte distribution width (RBC) [Ratio] 12.9 % Normal 11.0-15.0 [facility] Comment on above: Performed By: #### C BC #### [facility] [address] [address] [address] Efren Parra Hematocrit (Bld) [Volume fraction] 37.0 % Normal 36.0-48.0 [facility] Comment on above: Performed By: #### C BC #### [facility] [address] [address] [address] Efren Parra Hemoglobin (Bld) [Mass/Vol] 12.6 g/dL Normal 12.0-16.0 [facility] Comment on above: Performed By: #### C BC #### [facility] [address] [address] [address] Efren Parra IG # 0.06 10e3/ul Critically high 0.00-0.03 [facility] Comment on above: Performed By: #### C BC #### [facility] [address] [address] [address] Efren Parra IG % 0.5 % Normal 0.0-0.5 [facility] Comment on above: Performed By: #### C BC #### [facility] [address] [place] [address] Dr. Efren Parra LYMPH # 4.8 103/ul Critically high 1.2-3.8 [facility] [place] [facility] Comment on above: Performed By: #### C BC #### [facility] [address] [place] [address] Dr. Efren Parra Lymphocytes/100 WBC (Bld) 36.3 % Normal 20.5-60.0 [facility] Comment on above: Performed By: #### C BC #### [facility] [address] [place] [address] Dr. Efren Parra MANUAL DIFF REQ NO Normal [facility] [place] [facility] Comment on above: Performed By: #### C BC #### [facility] [address] [place] [address] Dr. Efren Parra MCH (RBC) [Entitic mass] 31.7 pg Normal 26.7-34.0 [facility] Comment on above: Performed By: #### C BC #### [facility] [address] [place] [address] Dr. Efren Parra MCHC (RBC) [Mass/Vol] 34.1 g/dL Normal 29.9-35.2 [facility] Comment on above: Performed By: #### C BC #### [facility] [address] [address] [address] Efren Parra MCV (RBC) [Entitic vol] 93.0 fL Normal 81.0-99.0 [facility] Comment on above: Performed By: #### C BC #### [facility] [address] [address] [address] Efren Parra MONO # 0.8 103/ul Normal 0.3-0.8 [facility] Comment on above: Performed By: #### C BC #### [facility] [address] [place] [address] Dr. Efren Parra Monocytes/100 WBC (Bld) 5.8 % Normal 1.7-12.0 [facility] Comment on above: Performed By: #### C BC #### [facility] [address] [place] [address] Dr. Efren Parra NEUT # 7.6 103/ul Critically high 1.4-6.5 [facility] [place] [facility] Comment on above: Performed By: #### C BC #### [facility] [address] [place] [address] Dr. Efren Parra Neutrophils/100 WBC (Bld) 57.1 % Normal 43.0-75.0 [facility] Comment on above: Performed By: #### C BC #### [facility] [address] [place] [address] Dr. Efren Parra Platelet mean volume (Bld) [Entitic vol] 10.7 fL Normal 9.5-13.5 [facility] Comment on above: Performed By: #### C BC #### [facility] [address] [place] [address] Dr. Efren Parra PLT 270 103/ul Normal 150-450 [facility] Comment on above: Performed By: #### C BC #### [facility] [address] [place] [address] Dr. Efren Parra RBC 3.98 106/ul Critically low 4.20-5.40 [facility] Comment on above: Performed By: #### C BC #### [facility] [address] [place] [address] Dr. Efren Parra WBC 13.2 103/ul Critically high 4.0-11.[address] [facility] Comment on above: Performed By: #### C BC #### [facility] [address] [place] [address] Dr. Efren Parra D-DIMERon 06-22-2022 D-DIMER 0.24 mg/L FEU Normal <=0.59 [facility] [place] [facility] Comment on above: Performed By: #### C BC #### [facility] [address] [place] [address] Dr. Efren Parra D-DIMER COMMENTS SEE BELOW Normal [facility] Comment on above: Result Comment: Incr eases [...] hospitalization. Performed By: #### C BC #### [facility] [address] [place] [address] Dr. Efren Parra PROF 14(COMP METB)on 022 Albumin [Mass/Vol] 3.4 g/dL Normal 3.4-5.0 [facility] Comment on above: Performed By: #### C BC #### [facility] [address] [place] [address] Dr. Efren Parra Albumin/Globulin [Mass ratio] 0.9 {ratio} Normal [facility] Comment on above: Performed By: #### C BC #### [facility] [address] [place] [address] Dr. Efren Parra ALP [Catalytic activity/Vol] 49 U/L Normal 46-116 [facility] Comment on above: Performed By: #### C BC #### [facility] [address] [place] [address] Dr. Efren Parra ALT [Catalytic activity/Vol] 14 U/L Normal 14-59 [facility] Comment on above: Performed By: #### C BC #### [facility] [address] [place] [address] Dr. Efren Parra Anion gap [Moles/Vol] 15.1 mmol/L Normal [facility] Comment on above: Performed By: #### C BC #### [facility] [address] [address] [address] Efren Parra AST [Catalytic activity/Vol] 14 U/L Critically low 15-37 [facility] Comment on above: Performed By: #### C BC #### [facility] [address] [place] [address] Dr. Efren Parra Bilirubin [Mass/Vol] 0.2 mg/dL Normal 0.2-1.0 [facility] Comment on above: Performed By: #### C BC #### [facility] [address] [place] [address] Dr. Efren Parra Calcium [Mass/Vol] 8.9 mg/dL Normal 8.5-10.1 [facility] Comment on above: Performed By: #### C BC #### [facility] [address] [place] [address] Dr. Efren Parra Chloride [Moles/Vol] 102 mmol/L Normal 98-107 [facility] Comment on above: Performed By: #### C BC #### [facility] [address] [place] [address] Dr. Efren Parra CO2 [Moles/Vol] 25.9 mmol/L Normal 21.0-32.0 [facility] Comment on above: Performed By: #### C BC #### [facility] [address] [place] [address] Dr. Efren Parra Creatinine [Mass/Vol] 0.72 mg/dL Normal 0.55-1.02 [facility] Comment on above: Performed By: #### C BC #### [facility] [address] [place] [address] Dr. Efren Parra EGFR-AF MONTENEGRIN >60 Normal >=60 [facility] Comment on above: Performed By: #### C BC #### [facility] [address] [address] [address] Efren Parra EGFR-NON AF MONTENEGRIN >60 Normal >=60 [facility] Comment on above: Performed By: #### C BC #### [facility] [address] [address] [address] Efren Parra Globulin (S) [Mass/Vol] 3.8 g/dL Normal [facility] Comment on above: Performed By: #### C BC #### [facility] [address] [address] [address] Efren Parra Glucose [Mass/Vol] 92 mg/dL Normal 74-106 [facility] Comment on above: Performed By: #### C BC #### [facility] [address] [address] [address] Efren Parra Potassium [Moles/Vol] 4.0 mmol/L Normal 3.5-5.1 [facility] Comment on above: Performed By: #### C BC #### [facility] [address] [address] [address] Efren Parra Protein [Mass/Vol] 7.2 g/dL Normal 6.4-8.2 [facility] Comment on above: Performed By: #### C BC #### [facility] [address] [place] [address] Dr. Efren Parra Sodium [Moles/Vol] 139 mmol/L Normal 136-[address] [facility] Comment on above: Performed By: #### C BC #### [facility] [address] [address] [address] Efren Parra Urea nitrogen [Mass/Vol] 17.0 mg/dL Normal 7.0-18.0 [facility] Comment on above: Performed By: #### C BC #### [facility] [address] [address] [address] Efren Parra Urea nitrogen/Creatinine [Mass ratio] 23.6 mg/mg Normal [facility] Comment on above: Performed By: #### C BC #### [facility] [address] [place], [place] [address] Dr. Efren Parra TROPONIN, HIGH SENSITIVITYon 06-22-2022 HSTROP <4.0 Normal 4.0-51.3 [facility] Comment on above: Result Comment: CUT- OFF POINTS HAVE BEEN ESTABLISHED BASED ON THE FOURTH UNIVERSAL DEFINITIONS OF MYOCARDIAL INFARCTION. THE UPPER REFERENCE LIMIT (URL) OF TROPONIN, DEFINED THE 99TH PERCENTILE OF cTnI DISTRIBUTION IN A REFERENCE POPULATION, HAS BEEN CONFIRMED THE DECISION THRESHOLD FOR MS DIAGNOSIS. Performed By: #### C BC #### [facility] [address] [place], [place] [address] Dr. Efren Parra Covid-19 PCR (CVDTBH)on SARS-CoV-2 (COVID-19) RNA LUKASZ+probe Ql (Unsp spec) Not detected Normal NOT DETECTED [facility] Comment on above: Result Comment: When [...] for this test is supported by the [place] of Health and Human Service's declaration that [...] used). Performed By: #### C VDTBH #### [facility] [address] [place], [place] [address] Dr. Efren Parra XR CHEST 2 Von [...] by: ALBINA BRODERICK Date: 2022-06-16 21:42 Normal [facility] CHEMISTRYOrdered By: SYSTEM SYSTEM on 04-24-2022 Amphetamines Screen method >1000 ng/mL Ql (U) Positive 2 *ABN* (04/24/22 5:12 PM) Invalid Interpretation Code Negative [facility] Comment on above: Result Comment: Crit ical Result verified by repeat analysis\No confirmation requested by Physican\Unconfirmed by alternate method\Critical Result UD_AMPH:POS Called to [facility] AT ER by [facility] And Read Back For Confirmation at: 04/24/2022 17:56:35 Barbiturates Screen Ql (U) Positive 3 *ABN* (04/24/22 5:12 PM) Invalid Interpretation Code Negative [facility] Comment on above: Result Comment: Crit ical Result verified by repeat analysis\No confirmation requested by Physican\Unconfirmed by alternate method\Critical Result UD_BARB:POS Called to [facility] And Read Back For Confirmation at: 04/24/2022 17:56:35 Benzodiazepines Ql (U) Positive 1 *ABN* (04/24/22 5:12 PM) Invalid Interpretation Code Negative [facility] Comment on above: Result Comment: Crit ical Result verified by repeat analysis\No confirmation requested by Physican\Unconfirmed by alternate method\Critical Result UD_BENZ:POS Called to [facility] AT ER [facility] And Read Back For Confirmation at: 04/24/2022 [...] mmol/L Normal 6 - 16 mEq/L F [facility] Remisol Calcium [Mass/Vol] 9.3 mg/dL Normal 8.9 - 11. 1 mg/dL [facility] Chloride [Moles/Vol] 102 mmol/L Normal 101 - 1 11 mmol/L [facility] CO2 [Moles/Vol] 25 mmol/L Normal 21 - 31 mmol/L [facility] Creatinine [Mass/Vol] 0.5 mg/dL Normal 0.5 - 1.3 mg/d L [facility] GFR/1.73 sq M.predicted among blacks MDRD (S/P/Bld) [Vol rate/Area] mL/min/1.73 m2 Normal >=59mL/min/1.73 m2 [facility] Chem S GFR/1.73 sq M.predicted among non-blacks MDRD (S/P/Bld) [Vol rate/Area] mL/min/1.73 m2 Normal >=59mL/min/1.73 m2 [facility] Chem S Glucose [Mass/Vol] 112 mg/dL Normal [...] 0.7 % Normal 0.0 - 2.0 % [facility] [...] 187.0 E9/L Normal 150.0 - 500.0 E9/L [facility] HemeAutoSS RBC (Bld) [#/Vol] 4.2 E12/L Low 4.3 - 5.9 E12/L [facility] HemeAutoSS WBC corrected for nucl RBC Auto (Bld) [#/Vol] 11.0 E9/L Normal 4.0 - 11.0 E9/L [facility] HemeAutoSS Laboratory - Microbiology an d Antimicrobial susceptibilityon 04-24-2022 Bacteria identified Cx Nom (U) >100,000 cfu/ml Non Fermentering Gram Negative Rods [facility] MICRO OTHER TESTSOrdered By: Carrie Molina on 04-24-2022 Rapid COV Int NEG Ctl Pass (04/24/22 3:50 PM) Normal [facility] Man Sero Rapid COV Int POS Ctl Pass (04/24/22 3:50 PM) Normal [facility] Man Sero SARS-CoV+SARS-CoV-2 (COVID-19) Ag IA.rapid Ql (Resp) Not Detected (04/24/22 3:50 PM) Normal Not Detected [facility] Man Sero URINALYSISOrdered By: Carrie mckee on [...] Interpretation Code Negative [facility] UA Auto SS Ball Ground.plasma/Ball Ground .RBC (Bld) [Mass ratio] 0-3 /HPF Normal [...] PM) Invalid Interpretation Code 1.005 - 1.030 [facility] UA Auto SS UA Spec Desc Clean Catch (04/24/22 5:12 PM) Normal [facility] UA Auto SS Urobilinogen Qn (U) 0.9090804 {Adria'U}/dL Normal 0.0 - 1.0 EU/dL [facility] UA Auto SS WBC Auto Ql (U) 3+ *ABN* (04/24/22 5:12 PM) Invalid Interpretation Code Negative [facility] UA Auto SS WBC LM.HPF (Urine sed) [#/Area] /[HPF] Invalid Interpretation Code 0-5/HPF [facility] UA Auto SS CULTURE URINEon 04-13-2022 CULTURE [...] Trimethoprim/Sulfame thoxazole >=320 R F Normal [facility] Comment on above: Performed By: #### C BC #### [facility] [address] [place] [address] Dr. Efren Parra [facility]on SARS-CoV-2 (COVID-19) RNA LUKASZ+probe Ql (Unsp spec) Not detected Normal NOT DETECTED [facility] Comment on above: Result Comment: When [...] for this test is supported by the Management Nurse Rn of Health and Human Service's declaration that [...] used). Performed By: #### C BC #### [facility] [address] [place] [address] Dr. Efren Parra ACETAMINOPHENon 04-10-2022 Acetaminophen [Mass/Vol] ug/mL Critically low 10.0-30.0 [facility] Comment on above: Performed By: #### A CET, ETH, SALYC, CMP #### [facility] [address] [place] [address] Dr. Efren Parra CBC AUTO DIFFon 04-10-2022 BASO # 0.0 103/ul Normal 0.0-0.1 [facility] Comment on above: Performed By: #### C BC #### [facility] [address] [place] [address] Dr. Efren Parra Basophils/100 WBC (Bld) 0.5 % Normal 0.2-2.0 [facility] Comment on above: Performed By: #### C BC #### [facility] [address] [place] [address] Dr. Efren Parra EO # 0.1 103/ul Normal 0.0-0.7 [facility] Comment on above: Performed By: #### C BC #### [facility] [address] [place] [address] Dr. Efren Parra Eosinophils/100 WBC (Bld) 0.9 % Normal 0.9-7.0 [facility] Comment on above: Performed By: #### C BC #### [facility] [address] [place] [address] Dr. Efren Parra Erythrocyte distribution width (RBC) [Ratio] 11.9 % Normal 11.0-15.0 [facility] Comment on above: Performed By: #### C BC #### [facility] [address] [place] [address] Dr. Efren Parra Hematocrit (Bld) [Volume fraction] 42.3 % Normal 36.0-48.0 [facility] Comment on above: Performed By: #### C BC #### [facility] [address] [place] [address] Dr. Efren Parra Hemoglobin (Bld) [Mass/Vol] 14.6 g/dL Normal 12.0-16.0 [facility] Comment on above: Performed By: #### C BC #### [facility] [address] [place] [address] Dr. Efren Parra IG # 0.03 10e3/ul Normal 0.00-0.03 [facility] Comment on above: Performed By: #### C BC #### [facility] [address] [place] [address] Dr. Efren Parra IG % 0.5 % Normal 0.0-0.5 [facility] Comment on above: Performed By: #### C BC #### [facility] [address] [place] [address] Dr. Efren Parra LYMPH # 1.5 103/ul Normal 1.2-3.8 [facility] Comment on above: Performed By: #### C BC #### [facility] [address] [place] [address] Dr. Efren Parra Lymphocytes/100 WBC (Bld) 22.9 % Normal 20.5-60.0 [facility] Comment on above: Performed By: #### C BC #### [facility] [address] [place] [address] Dr. Efren Parra MANUAL DIFF REQ NO Normal [facility] Comment on above: Performed By: #### C BC #### [facility] [address] [place] [address] Dr. Efren Parra MCH (RBC) [Entitic mass] 31.9 pg Normal 26.7-34.0 [facility] Comment on above: Performed By: #### C BC #### [facility] [address] [place] [address] Dr. Efren Parra MCHC (RBC) [Mass/Vol] 34.5 g/dL Normal 29.9-35.2 [facility] Comment on above: Performed By: #### C BC #### [facility] [address] [place] [address] Dr. Erfen Parra MCV (RBC) [Entitic vol] 92.4 fL Normal 81.0-99.0 [facility] Comment on above: Performed By: #### C BC #### [facility] [address] [place] [address] Dr. Efren Parra MONO # 0.3 103/ul Normal 0.3-0.8 [facility] Comment on above: Performed By: #### C BC #### [facility] [address] [place] [address] Dr. Efren Parra Monocytes/100 WBC (Bld) 4.7 % Normal 1.7-12.0 [facility] Comment on above: Performed By: #### C BC #### [facility] [address] [place] [address] Dr. Efren Parra NEUT # 4.7 103/ul Normal 1.4-6.5 [facility] Comment on above: Performed By: #### C BC #### [facility] [address] [place] [address] Dr. Efren Parra Neutrophils/100 WBC (Bld) 70.5 % Normal 43.0-75.0 [facility] Comment on above: Performed By: #### C BC #### [facility] [address] [place] [address] Dr. Efren Parra Platelet mean volume (Bld) [Entitic vol] 11.0 fL Normal 9.5-13.5 [facility] Comment on above: Performed By: #### C BC #### [facility] [address] [place] [address] Dr. Efren Parra PLT 226 103/ul Normal 150-450 [facility] Comment on above: Performed By: #### C BC #### [facility] [address] [place] [address] Dr. Efren Parra RBC 4.58 106/ul Normal 4.20-5.40 [facility] Comment on above: Performed By: #### C BC #### [facility] [address] [place] [address] Dr. Efren Parra WBC 6.6 103/ul Normal 4.0-11.0 [facility] Comment on above: Performed By: #### C BC #### [facility] [address] [place] [address] Dr. Efren Parra DEPAKENE/VALPROICon 04-10-20 22 DEPAKENE 35.2 ug/ml Critically low 50.0-100.0 [facility] Comment on above: Performed By: #### C BC #### [facility] [address] [place] [address] Dr. Efren Parra DRUG SCREEN RAPID (URINE)on 04-10-2022 AMP Negative Normal NEGATIVE [facility] Comment on above: Performed By: #### C BC #### [facility] [address] [place] [address] Dr. Efren Parra BAR Negative Normal NEGATIVE [facility] Comment on above: Performed By: #### C BC #### [facility] [address] [place] [address] Dr. Efren Parra BUP Positive Abnormal NEGATIVE [facility] Comment on above: Performed By: #### C BC #### [facility] [address] [place] [address] Dr. Efren Parra BZO Negative Normal NEGATIVE [facility] Comment on above: Performed By: #### C BC #### [facility] [address] [place] [address] Dr. Efren Parra RENEA Negative Normal NEGATIVE [facility] Comment on above: Performed By: #### C BC #### [facility] [address] [place] [address] Dr. Efren Parra CUT-OFFS SEE BELOW Normal [facility] Comment on above: Result Comment: AMP [...] ng/mL Performed By: #### C BC #### [facility] [address] [place] [address] Dr. Efren Parra DRUG CUT HEADER DRUG CLASS TEST SYSTEM CUT-OFF CONCENTRATIONS ARE FOLLOWS: Normal [facility] Comment on above: Performed By: #### C BC #### [facility] [address] [place] [address] Dr. Efren Parra mAMP Negative Normal NEGATIVE [facility] Comment on above: Performed By: #### C BC #### [facility] [address] [place] [address] Dr. Efren Parra MTD Negative Normal NEGATIVE [facility] Comment on above: Performed By: #### C BC #### [facility] [address] [place] [address] Dr. Efren Parra OPI Negative Normal NEGATIVE [facility] Comment on above: Performed By: #### C BC #### [facility] [address] [place] [address] Dr. Efren Parra OXY Negative Normal NEGATIVE [facility] Comment on above: Performed By: #### C BC #### [facility] [address] [place] [address] Dr. Efren Parra PCP Negative Normal NEGATIVE [facility] Comment on above: Performed By: #### C BC #### [facility] [address] [place] [address] Dr. Efren Parra PPX Negative Normal NEGATIVE [facility] Comment on above: Performed By: #### C BC #### [facility] [address] [address] [address] Efren Parra TCA Negative Normal NEGATIVE [facility] Comment on above: Performed By: #### C BC #### [facility] [address] [place] [address] Dr. Efren Parra THC Negative Normal NEGATIVE [facility] Comment on above: Performed By: #### C BC #### [facility] [address] [address] [address] Efren Parra ER URINE PROFILEon 2 Bilirubin Ql (U) Negative Normal NEGATIVE [facility] Comment on above: Performed By: #### U MICRO, DRUGRPD, ERUR #### [facility] [address] [place] [address] Dr. Efren Parra Clarity (U) CLEAR Normal CLEAR [facility] Comment on above: Performed By: #### U MICRO, DRUGRPD, ERUR #### [facility] [address] [place] [address] Dr. Efren Parra Color (U) LT. YELLOW Normal YELLOW [facility] Comment on above: Performed By: #### U MICRO, DRUGRPD, ERUR #### [facility] [address] [place] [address] Dr. Efren TIERNEYAHNiraj A micrscopic examination will be performed if indicated. Normal [facility] Comment on above: Performed By: #### U MICRO, DRUGRPD, ERUR #### [facility] [address] [place] [address] Dr. Efren Parra Glucose Ql (U) Negative Normal NEGATIVE [facility] Comment on above: Performed By: #### U MICRO, DRUGRPD, ERUR #### [facility] [address] [place] [address] Dr. Efren Parra Hemoglobin Ql (U) Negative Normal NEGATIVE [facility] Comment on above: Performed By: #### U MICRO, DRUGRPD, ERUR #### [facility] [address] [place] [address] Dr. Efren Parra Ketones Ql (U) TRACE Abnormal NEGATIVE [facility] Comment on above: Performed By: #### U MICRO, DRUGRPD, ERUR #### [facility] [address] [place] [address] Dr. Efren Parra LEUKOCYTES TRACE Abnormal NEGATIVE [facility] Comment on above: Performed By: #### U MICRO, DRUGRPD, ERUR #### [facility] [address] [address] [address] Efren Parra Nitrite Ql (U) Positive Abnormal NEGATIVE [facility] Comment on above: Performed By: #### U MICRO, DRUGRPD, ERUR #### [facility] [address] [address] [address] Efren Parra pH (U) 8.5 [pH] Normal 5-9 [facility] Comment on above: Performed By: #### U MICRO, DRUGRPD, ERUR #### [facility] [address] [place] [address] Dr. Efren Parra SPEC GRAVITY 1.015 Normal 1.005-<=1.025 [facility] Comment on above: Performed By: #### U MICRO, DRUGRPD, ERUR #### [facility] [address] [place] [address] Dr. Efren Parra UA PROTEIN Negative Normal NEGATIVE/ TRACE [facility] Comment on above: Performed By: #### U MICRO, DRUGRPD, ERUR #### [facility] [address] [address] [address] Efren Parra UR MICRO IND INDICATED Normal [facility] Comment on above: Performed By: #### U MICRO, DRUGRPD, ERUR #### [facility] [address] [place] [address] Dr. Efren Parra Urobilinogen Qn (U) 0.2 {Adria'U}/dL Normal 0.2 - 1. 0 [facility] Comment on above: Performed By: #### U MICRO, DRUGRPD, ERUR #### [facility] [address] [place] [address] Dr. Efren Parra ETHANOL (BLD ALC)on 04-10-20 ALC NOTE NOTE: 80 mg/dl is the legal limit for a blood alcohol level Normal [facility] Comment on above: Performed By: #### A CET, ETH, SALYC, CMP #### [facility] [address] [address] [address] Efren Parra Ethanol [Mass/Vol] mg/dL Normal [facility] Comment on above: Performed By: #### A CET, ETH, SALYC, CMP #### [facility] [address] [address] [address] Efren Parra PREG HCG QUALon 04-10-2022 , QUAL Negative Normal NEGATIVE [facility] Comment on above: Performed By: #### P REG #### [facility] [address] [place] [address] Dr. Efren Parra PROF 14(COMP METB)on 022 Albumin [Mass/Vol] 3.6 g/dL Normal 3.4-5.0 [facility] Comment on above: Performed By: #### A CET, ETH, SALYC, CMP #### [facility] [address] [place] [address] Dr. Efren Parra Albumin/Globulin [Mass ratio] 1.0 {ratio} Normal [facility] Comment on above: Performed By: #### A CET, ETH, SALYC, CMP #### [facility] [address] [place] [address] Dr. Efren Parra ALP [Catalytic activity/Vol] 62 U/L Normal 46-116 [facility] Comment on above: Performed By: #### A CET, ETH, SALYC, CMP #### [facility] [address] [place] [address] Dr. Efren Parra ALT [Catalytic activity/Vol] 29 U/L Normal 14-59 [facility] Comment on above: Performed By: #### A CET, ETH, SALYC, CMP #### [facility] [address] [address] [address] Efren Parra Anion gap [Moles/Vol] 10.8 mmol/L Normal [facility] Comment on above: Performed By: #### A CET, ETH, SALYC, CMP #### [facility] [address] [place] [address] Dr. Efren Parra AST [Catalytic activity/Vol] 11 U/L Critically low 15-37 [facility] Comment on above: Performed By: #### A CET, ETH, SALYC, CMP #### [facility] [address] [place] [address] Dr. Efren Parra Bilirubin [Mass/Vol] 0.4 mg/dL Normal 0.2-1.0 [facility] Comment on above: Performed By: #### A CET, ETH, SALYC, CMP #### [facility] [address] [place] [address] Dr. Efren Parra Calcium [Mass/Vol] 9.3 mg/dL Normal 8.5-10.1 [facility] Comment on above: Performed By: #### A CET, ETH, SALYC, CMP #### [facility] [address] [place] [address] Dr. Efren Parra Chloride [Moles/Vol] 105 mmol/L Normal 98-107 [facility] Comment on above: Performed By: #### A CET, ETH, SALYC, CMP #### [facility] [address] [place] [address] Dr. Efren Parra CO2 [Moles/Vol] 26.8 mmol/L Normal 21.0-32.0 [facility] Comment on above: Performed By: #### A CET, ETH, SALYC, CMP #### [facility] [address] [place] [address] Dr. Efren Parra Creatinine [Mass/Vol] 0.64 mg/dL Normal 0.55-1.02 [facility] Comment on above: Performed By: #### A CET, ETH, SALYC, CMP #### [facility] [address] [place] [address] Dr. Efren Parra EGFR-AF MONTENEGRIN >60 Normal >=60 [facility] Comment on above: Performed By: #### A CET, ETH, SALYC, CMP #### [facility] [address] [place], [place] [id number] Dr. Efren Parra EGFR-NON AF MONTENEGRIN >60 Normal >=60 [facility] Comment on above: Performed By: #### A CET, ETH, SALYC, CMP #### [facility] [address] [address] [address] Efren Parra Globulin (S) [Mass/Vol] 3.5 g/dL Normal [facility] Comment on above: Performed By: #### A CET, ETH, SALYC, CMP #### [facility] [address] [place] [address] Dr. Erfen Parra Glucose [Mass/Vol] 113 mg/dL Critically high 74-106 T [facility] Comment on above: Performed By: #### A CET, ETH, SALYC, CMP #### [facility] [address] [place] [address] Dr. Efren Parra Potassium [Moles/Vol] 4.6 mmol/L Normal 3.5-5.1 [facility] Comment on above: Performed By: #### A CET, ETH, SALYC, CMP #### [facility] [address] [place] [address] Dr. Efren Parra Protein [Mass/Vol] 7.1 g/dL Normal 6.4-8.[address] [facility] Comment on above: Performed By: #### A CET, ETH, SALYC, CMP #### [facility] [address] [place] [address] Dr. Efren Parra Sodium [Moles/Vol] 138 mmol/L Normal 136-[address] [facility] Comment on above: Performed By: #### A CET, ETH, SALYC, CMP #### [facility] [address] [address] [address] Efren Parra Urea nitrogen [Mass/Vol] 8.0 mg/dL Normal 7.0-18.0 [facility] Comment on above: Performed By: #### A CET, ETH, SALYC, CMP #### [facility] [address] [place] [address] Dr. Efren Parra Urea nitrogen/Creatinine [Mass ratio] 12.5 mg/mg Normal [facility] Comment on above: Performed By: #### A CET, ETH, SALYC, CMP #### [facility] [address] [place] [address] Dr. Efren Parra SALICYLATEon 04-10-2022 SALICYLATE 3.3 mg/dL Normal <=19.9 [facility] Comment on above: Performed By: #### A CET, ETH, SALYC, CMP #### [facility] [address] [place] [address] Dr. Efren Parra URINE MICROSCOPIC ONLYon BACTERIA LARGE Abnormal NONE SEEN [facility] Comment on above: Performed By: #### C BC #### [facility] [address] [place] [address] Dr. Efren Parra Bacteria identified Cx Nom (U) INDICATED Normal [facility] Comment on above: Performed By: #### C BC #### [facility] [address] [place] [address] Dr. Efren Parra CAST NONE SEEN Normal NONE SEEN [facility] Comment on above: Performed By: #### C BC #### [facility] [address] [place] [address] Dr. Efren Parra Crystals LM Nom (Urine sed) NONE SEEN Normal NONE SEEN [facility] Comment on above: Performed By: #### C BC #### [facility] [address] [place] [address] Dr. Efren Parra Epithelial cells LM Ql (Urine sed) MANY Abnormal NONE SEEN /RARE [facility] Comment on above: Performed By: #### C BC #### [facility] [address] [place] [address] Dr. Efren Parra MUCOUS NONE SEEN Normal NONE SEEN [facility] Comment on above: Performed By: #### C BC #### [facility] [address] [place] [address] Dr. Efren Parra RBC 0-2 Normal 0-2 [facility] Comment on above: Performed By: #### C BC #### [facility] [address] [place] [address] Dr. Efren Parra WBC 5-10 Abnormal NONE SEEN The [facility] Comment on above: Performed By: #### C BC #### [facility] [address] [place], [place] [address] Dr. Efren Parra Hemoglobin A1Con 02-08-2021 Glucose [Mass/Vol] 103 mg/dL Normal [facility] Comment on above: Result Comment: The ADA and AACC recommend providing the estimated average glucose result to permit better patient understanding of their HBA1c result. Performed By: #### G LYHGB #### [facility] [address] [place] [address] Blow Mold Technician: Bryan Cruz MD HbA1c (Bld) [Mass fraction] 5.2 % Normal 4.0-6.0 [facility] Comment on above: Performed By: #### G LYHGB #### [facility] [address] [place] [address] Blow Mold Technician: Bryan Cruz MD XR CHEST (SINGLE VIEW [...] Usama Xavier MD 02/07/21 Final result Normal [facility] Drug Scr, Abuse, Uron 2020 Amphetamine(s),Ur Negative Normal NEG [facility] Comment on above: Result Comment: (Positive cutoff 1000 ng/mL) Performed By: #### U HCG #### [facility] [address] [place] [address] Blow Mold Technician: José Miguel Monzon DO Barbiturate(s),Ur Negative Normal NEG [facility] Comment on above: Result Comment: (Positive cutoff 200 ng/mL) Performed By: #### U HCG #### [facility] [address] [place] [address] Blow Mold Technician: José Miguel Monzon DO Benzodiazepine(s) Positive Abnormal NEG [facility] Comment on above: Result Comment: (Positive cutoff 200 ng/mL) Performed By: #### U HCG #### [facility] [address] [place] [address] Blow Mold Technician: José Miguel Monzon DO Cannabinoid(s),Ur Negative Normal [facility] Comment on above: Result Comment: (Positive cutoff 50 ng/mL) Performed By: #### U HCG #### [facility] [address] [place] [address] Blow Mold Technician: José Miguel Monzon DO Cocaine Metabolite Negative Normal [facility] Comment on above: Result Comment: (Positive cutoff 300 ng/mL) Performed By: #### U HCG #### [facility] [address] [place] [address] Blow Mold Technician: José Miguel Monzon DO Interpretive Info Assay provides medical screening only. The absence of expected drug(s) and/or Normal [facility] Comment on above: Result Comment: meta bolite(s) may indicate diluted or adulterated urine, limitations of testing or timing of collection. Testing for legal purposes should be confirmed by another method. To request confirmation of test result, please call the lab within 7 days of sample submission. Performed By: #### U HCG #### [facility] [address] [place] [address] Blow Mold Technician: José Miguel Monzon DO Methadone Ql (U) Negative Normal NEG [facility] Comment on above: Result Comment: (Positive cutoff 300 ng/mL) Performed By: #### U HCG #### [facility] [place] [address] Blow Mold Technician: José Miguel Monzon DO Opiate(s), Ur Negative Normal NEG [facility] Comment on above: Result Comment: (Positive cutoff 300 ng/mL) Performed By: #### U HCG #### [facility] [address] [place] [address] Blow Mold Technician: José Miguel Monzon DO Oxycodone, Urine Negative Normal NEG [facility] Comment on above: Result Comment: (Positive cutoff 100 ng/mL) Performed By: #### U HCG #### [facility] [address] [place] [address] Blow Mold Technician: José Miguel Monzon DO Phencyclidine, Ur Negative Normal NEG [facility] Comment on above: Result Comment: (Positive cutoff 25 ng/mL) Performed By: #### U HCG #### [facility] [address] [place] [address] Blow Mold Technician: José Miguel Monzon DO Buprenorphrine, Ur NOT REPORTED Normal NEG [facility] Comment on above: Performed By: #### U HCG #### [facility] [address] [place] [address] Blow Mold Technician: José Miguel Monzon DO MDMA, Urine NOT REPORTED Normal NEG [facility] Comment on above: Performed By: #### U HCG #### [facility] [address] [place] [address] Blow Mold Technician: José Miguel Monzon DO Methamphetamine, Ur NOT REPORTED Normal NEG [facility] Comment on above: Performed By: #### U HCG #### [facility] [address] [place] [address] Blow Mold Technician: José Miguel Monzon DO Propoxyphene,Urine NOT REPORTED Normal NEG [facility] Comment on above: Performed By: #### U HCG #### [facility] [place] [address] Blow Mold Technician: José Miguel Monzon DO Tricyclic antidepressants Screen Ql (U) NOT REPORTED Normal NEG [facility] Comment on above: Performed By: #### U HCG #### [facility] [address] [place] [address] Blow Mold Technician: José Miguel Monzon DO Urinalysis, Routineon 2020 Acetoacetic Acid,Ur Negative Normal NEG [facility] Comment on above: Performed By: #### U HCG #### [facility] [address] [place] [address] Blow Mold Technician: José Miguel Monzon DO Bilirubin, SemiQt,Ur Negative Normal NEG [facility] Comment on above: Performed By: #### U HCG #### [facility] [address] [place] [address] Blow Mold Technician: José Miguel Monzon DO Color (U) YELLOW Normal YEL [facility] Comment on above: Performed By: #### U HCG #### [facility] [address] [place] [address] Blow Mold Technician: José Miguel Monzon DO Glucose Ql (U) Negative Normal NEG [facility] Comment on above: Performed By: #### U HCG #### [facility] [address] [place] [address] Blow Mold Technician: José Miguel Monzon DO Hemoglobin, Ur MOD Abnormal NEG [facility] Comment on above: Performed By: #### U HCG #### [facility] [address] [place] [address] Blow Mold Technician: José Miguel Monzon DO Leukocyte esterase Test strip Ql (U) LARGE Abnormal NEG [facility] Comment on above: Performed By: #### U HCG #### [facility] [address] [place] [address] Blow Mold Technician: José Miguel Monzon DO Nitrite,Ur Negative Normal NEG [facility] Comment on above: Performed By: #### U HCG #### [facility] [place] [address] Blow Mold Technician: José Miguel Monzon DO PH,Ur 7.5 Normal 5.0-8.0 [facility] Comment on above: Performed By: #### U HCG #### [facility] [place] [address] Blow Mold Technician: José Miguel Monzon DO Protein Ql (U) 2+ Abnormal NEG [facility] Comment on above: Performed By: #### U HCG #### [facility] [place] [address] Blow Mold Technician: José Miguel Monzon DO Spec. [place],Ur 1.019 Normal 1.000-1.030 [facility] Comment on above: Performed By: #### U HCG #### [facility] [place] [address] Blow Mold Technician: José Miguel Monzon DO Turbidity TURBID Abnormal CLEAR [facility] Comment on above: Performed By: #### U HCG #### [facility] [place] [address] Blow Mold Technician: José Miguel Monzon DO Urobilinogen,Ur Normal Normal NORM [facility] Comment on above: Performed By: #### U HCG #### [facility] [place] [address] Blow Mold Technician: José Miguel Monzon DO Comment NOT REPORTED Normal [facility] Comment on above: Performed By: #### U HCG #### [facility] [address] [place] [address] Blow Mold Technician: José Miguel Monzon DO Urinalysis,Microon 1 ----- Normal [facility] Comment on above: Performed By: #### U HCG #### [facility] [address] [place] [address] Blow Mold Technician: José Miguel Monzon DO Bacteria MANY Abnormal NONE [facility] Comment on above: Performed By: #### U HCG #### [facility] [address] [place] [address] Blow Mold Technician: José Miguel Monzon DO Epithelial cells LM Ql (Urine sed) 2 TO 5 Normal [facility] Comment on above: Performed By: #### U HCG #### [facility] [address] [place] [address] Blow Mold Technician: José Miguel Monzon DO Urine RBC's 10 TO 20 Normal [facility] Comment on above: Performed By: #### U HCG #### [facility] [address] [place] [address] Blow Mold Technician: José Miguel Monzon DO Urine WBC's 50 TO 100 Normal [facility] Comment on above: Performed By: #### U HCG #### [facility] [address] [place] [address] Blow Mold Technician: José Miguel Monzon DO Amorphous sediment LM Ql (Urine sed) NOT REPORTED Normal [facility] Comment on above: Performed By: #### U HCG #### [facility] [address] [place] [address] Blow Mold Technician: José Miguel Monzon DO Casts NOT REPORTED Normal [facility] Comment on above: Performed By: #### U HCG #### [facility] [place] [address] Blow Mold Technician: José Miguel Monzon DO Crystals LM Nom (Urine sed) NOT REPORTED Normal NONE [facility] Comment on above: Performed By: #### U HCG #### [facility] [place] [address] Blow Mold Technician: José Miguel Monzon DO Epithelial, Renal NOT REPORTED Normal 0 [facility] Comment on above: Performed By: #### U HCG #### [facility] [address] [place] [address] Blow Mold Technician: José Miguel Monzon DO Mucus Strands NOT REPORTED Normal NONE [facility] Comment on above: Performed By: #### U HCG #### [facility] [address] [place] [address] Blow Mold Technician: José Miguel Monzon DO Other Observations NOT REPORTED Normal NREQ [facility] Comment on above: Performed By: #### U HCG #### [facility] [address] [place] [address] Blow Mold Technician: José Miguel Monzon DO Trichomonas NOT REPORTED Normal NONE [facility] Comment on above: Performed By: #### U HCG #### [facility] [address] [place] [address] Blow Mold Technician: José Miguel Monzon DO Yeast NOT REPORTED Normal NONE [facility] Comment on above: Performed By: #### U HCG #### [facility] [address] [place] [address] Blow Mold Technician: José Miguel Monzon DO Acetaminophenon 02-05-2021 Acetaminophen [Mass/Vol] ug/mL Low 10-30 [facility] Comment on above: Performed By: #### C MPX, REJEC, HCG, ACET, ALCB, SALI #### [facility] [place] [address] Blow Mold Technician: José Miguel Monzon DO CBC with Diffon 02-05-2021 Abs. Basophil 0.00 k/uL Normal 0.0-0.2 [facility] Comment on above: Performed By: #### U HCG #### [facility] [address] [place] [address] Blow Mold Technician: José Miguel Monzon DO Abs.Neutrophil (Seg) 3.50 k/uL Normal 1.3-9.1 [facility] Comment on above: Performed By: #### U HCG #### [facility] [address] [place] [address] Blow Mold Technician: José Miguel Monzon DO Basophils/100 WBC (Bld) 1 % Normal 0-2 [facility] Comment on above: Performed By: #### U HCG #### [facility] [address] [place] [address] Blow Mold Technician: José Miguel Monzon DO Eosinophils (Bld) [#/Vol] 0.10 10*3/uL Normal 0.0-0.4 [facility] Comment on above: Performed By: #### U HCG #### [facility] [address] [place] [address] Blow Mold Technician: José Miguel Monzon DO Eosinophils/100 WBC (Bld) 2 % Normal 0-4 [facility] Comment on above: Performed By: #### U HCG #### [facility] [address] [place] [address] Blow Mold Technician: José Miguel Monzon DO Erythrocyte distribution width (RBC) [Ratio] 13.3 % Normal 11.5-14.9 [facility] Comment on above: Performed By: #### U HCG #### [facility] [place] [address] Blow Mold Technician: José Miguel Monzon DO Hematocrit (Bld) [Volume fraction] 35.6 % Low 36-46 [facility] Comment on above: Performed By: #### U HCG #### [facility] [address] [place] [address] Blow Mold Technician: José Miguel Monzon DO Hemoglobin (Bld) [Mass/Vol] 12.1 g/dL Normal 12.0-16.0 [facility] Comment on above: Performed By: #### U HCG #### [facility] [address] [place] [address] Blow Mold Technician: José Miguel Monzon DO Lymphocytes (Bld) [#/Vol] 2.30 10*3/uL Normal 1.0-4.8 [facility] Comment on above: Performed By: #### U HCG #### [facility] [address] [place] [address] Blow Mold Technician: José Miguel Monzon DO Lymphocytes/100 WBC (Bld) 36 % Normal 24-44 [facility] Comment on above: Performed By: #### U HCG #### [facility] [address] [place] [address] Blow Mold Technician: José Miguel Monzon DO MCH (RBC) [Entitic mass] 30.9 pg Normal 26-34 [facility] Comment on above: Performed By: #### U HCG #### [facility] [address] [place] [address] Blow Mold Technician: José Miguel Monzon DO MCHC (RBC) [Mass/Vol] 33.9 g/dL Normal 31-37 [facility] Comment on above: Performed By: #### U HCG #### [facility] [address] [place] [address] Blow Mold Technician: José Miguel Monzon DO MCV (RBC) [Entitic vol] 91.4 fL Normal 80-100 [facility] Comment on above: Performed By: #### U HCG #### [facility] [address] [facility] [place] [address] Blow Mold Technician: José Miguel Monzon DO Monocytes (Bld) [#/Vol] 0.40 10*3/uL Normal 0.1-1.3 [facility] Comment on above: Performed By: #### U HCG #### [facility] [place] [address] Blow Mold Technician: José Miguel Monzon DO Monocytes/100 WBC (Bld) 7 % Normal 1-7 [facility] Comment on above: Performed By: #### U HCG #### [facility] [place] [address] Blow Mold Technician: José Miguel Monzon DO Neutrophil (Seg) 54 % Normal 36-66 [facility] Comment on above: Performed By: #### U HCG #### [facility] [place] [address] Blow Mold Technician: José Miguel Monzon DO Platelet mean volume (Bld) [Entitic vol] 8.6 fL Normal 6.0-12.0 [facility] Comment on above: Performed By: #### U HCG #### [facility] [place] [address] Blow Mold Technician: José Miguel Monzon DO Platelets (Bld) [#/Vol] 212 10*3/uL Normal 150-450 [facility] Comment on above: Performed By: #### U HCG #### [facility] [facility] [place] [address] Blow Mold Technician: José Miguel Monzon DO RBC (Bld) [#/Vol] 3.90 10*6/uL Low 4.0-5.2 [facility] Comment on above: Performed By: #### U HCG #### [facility] [address] [place] [address] Blow Mold Technician: José Miguel Monzon DO WBC (Bld) [#/Vol] 6.4 10*3/uL Normal 3.5-11.0 [facility] Comment on above: Performed By: #### U HCG #### [facility] [address] [place] [address] Blow Mold Technician: José Miguel Monzon DO Abs.Imm.Granulocyte NOT REPORTED Normal 0.00-0.30 [facility] Comment on above: Performed By: #### U HCG #### [facility] [address] [place] [address] Blow Mold Technician: José Miguel Monzon DO Auto Diff Performed NOT REPORTED Normal [facility] Comment on above: Performed By: #### U HCG #### [facility] [address] [place] [address] Blow Mold Technician: José Miguel Monzon DO Immature Granulocyte NOT REPORTED Normal 0 [facility] Comment on above: Performed By: #### U HCG #### [facility] [address] [place] [address] Blow Mold Technician: José Miguel Monzon DO NRBC Automated NOT REPORTED Normal [facility] Comment on above: Performed By: #### U HCG #### [facility] [address] [place] [address] Blow Mold Technician: José Miguel Monzon DO Platelet Estimate NOT REPORTED Normal [facility] Comment on above: Performed By: #### U HCG #### [facility] [address] [place] [address] Blow Mold Technician: José Miguel Monzon DO RBC morphology finding Nom (Bld) NOT REPORTED Normal [facility] Comment on above: Performed By: #### U HCG #### [facility] [address] [place] [address] Blow Mold Technician: José Miguel Monzon DO WBC Morphology NOT REPORTED Normal [facility] Comment on above: Performed By: #### U HCG #### [facility] [place] [address] Blow Mold Technician: José Miguel Monzon DO Comp Metabolic Pr/rfx MGon 0 - AST [Catalytic activity/Vol] 17 U/L Normal <32 [facility] Comment on above: Performed By: #### C MPX, REJEC, HCG, ACET, ALCB, SALI #### [facility] [place] [address] Blow Mold Technician: José Miguel Monzon DO Bilirubin [Mass/Vol] mg/dL Low 0.3-1.2 [facility] Comment on above: Performed By: #### C MPX, REJEC, HCG, ACET, ALCB, SALI #### [facility] [place] [address] Blow Mold Technician: José Miguel Monzon DO Potassium [Moles/Vol] 4.4 mmol/L Normal 3.7-5.3 [facility] Comment on above: Result Comment: SPEC IMEN SLIGHTLY HEMOLYZED, RESULTS MAY BE ADVERSELY AFFECTED. Performed By: #### C MPX, REJEC, HCG, ACET, ALCB, SALI #### [facility] [place] [address] Blow Mold Technician: José Miguel Monzon DO (cont.) Normal [facility] Comment on above: Result Comment: Aver age GFR for 30-39 years old: 107 mL/min/1.73sq m Chronic Kidney Disease: <60 mL/min/1.73sq m Kidney failure: <15 mL/min/1.73sq m eGFR calculated using average adult body mass. Additional eGFR calculator available at: http://www.Cin[employer]/multiple_crcl_2012.htm Performed By: #### C MPX, REJEC, HCG, ACET, ALCB, SALI #### [facility] [address] [facility] [place] [address] Blow Mold Technician: José Miguel Monzon DO Albumin [Mass/Vol] 3.7 g/dL Normal 3.5-5.2 [facility] Comment on above: Performed By: #### C MPX, REJEC, HCG, ACET, ALCB, SALI #### [facility] [address] [place] [address] Blow Mold Technician: José Miguel Monzon DO Alkaline Phos 42 U/L Normal 35-104 [facility] Comment on above: Performed By: #### C MPX, REJEC, HCG, ACET, ALCB, SALI #### [facility] [address] [place] [address] Blow Mold Technician: José Miguel Monzon DO ALT [Catalytic activity/Vol] 12 U/L Normal 5-33 [facility] Comment on above: Performed By: #### C MPX, REJEC, HCG, ACET, ALCB, SALI #### [facility] [address] [place] [address] Blow Mold Technician: José Miguel Monzon DO Anion gap [Moles/Vol] 15 mmol/L Normal 9-17 [facility] Comment on above: Performed By: #### C MPX, REJEC, HCG, ACET, ALCB, SALI #### [facility] [address] [facility] [place] [address] Blow Mold Technician: José Miguel Monzon DO Calcium [Mass/Vol] 9.4 mg/dL Normal 8.6-10.4 [facility] Comment on above: Performed By: #### C MPX, REJEC, HCG, ACET, ALCB, SALI #### [facility] [address] [place] [address] Blow Mold Technician: José Miguel Monzon DO Chloride [Moles/Vol] 100 mmol/L Normal 98-107 [facility] Comment on above: Performed By: #### C MPX, REJEC, HCG, ACET, ALCB, SALI #### [facility] [address] [place] [address] Blow Mold Technician: José Miguel Monzon DO CO2 [Moles/Vol] 21 mmol/L Normal 20-31 [facility] Comment on above: Performed By: #### C MPX, REJEC, HCG, ACET, ALCB, SALI #### [facility] [address] [place] [address] Blow Mold Technician: José Miguel Monzon DO Creatinine [Mass/Vol] 0.51 mg/dL Normal 0.50-0.90 [facility] Comment on above: Performed By: #### C MPX, REJEC, HCG, ACET, ALCB, SALI #### [facility] [address] [place] [address] Blow Mold Technician: José Miguel Monzon DO GFR, Amer >60 Normal >60 [facility] Comment on above: Performed By: #### C MPX, REJEC, HCG, ACET, ALCB, SALI #### [facility] [address] [place] [address] Blow Mold Technician: José Miguel Monzon DO GFR,non Amer >60 Normal >60 [facility] Comment on above: Performed By: #### C MPX, REJEC, HCG, ACET, ALCB, SALI #### [facility] [address] [place] [address] Blow Mold Technician: José Miguel Monzon DO Glucose [Mass/Vol] 111 mg/dL High 70-99 [facility] Comment on above: Performed By: #### C MPX, REJEC, HCG, ACET, ALCB, SALI #### [facility] [address] [place] [address] Blow Mold Technician: José Miguel Monzon DO Protein [Mass/Vol] 6.6 g/dL Normal 6.4-8.3 [facility] Comment on above: Performed By: #### C MPX, REJEC, HCG, ACET, ALCB, SALI #### [facility] [address] [place] [address] Blow Mold Technician: José Miguel Monzon DO Sodium [Moles/Vol] 136 mmol/L Normal 135-144 [facility] Comment on above: Performed By: #### C MPX, REJEC, HCG, ACET, ALCB, SALI #### [facility] [address] [place] [address] Blow Mold Technician: José Miguel Monzon DO Urea nitrogen [Mass/Vol] 14 mg/dL Normal 6-20 [facility] Comment on above: Performed By: #### C MPX, REJEC, HCG, ACET, ALCB, SALI #### [facility] [address] [place] [address] Blow Mold Technician: José Miguel Monzon DO Albumin/Glob Ratio NOT REPORTED Normal 1.0-2.5 [facility] Comment on above: Performed By: #### C MPX, REJEC, HCG, ACET, ALCB, SALI #### [facility] [address] [place] [address] Blow Mold Technician: José Miguel Monzon DO BUN/CRE Ratio NOT REPORTED Normal 9-20 [facility] Comment on above: Performed By: #### C MPX, REJEC, HCG, ACET, ALCB, SALI #### [facility] [address] [place] [address] Blow Mold Technician: José Miguel Monzon DO Staging: NOT REPORTED Normal [facility] Comment on above: Performed By: #### C MPX, REJEC, HCG, ACET, ALCB, SALI #### [facility] [address] [place] [address] Blow Mold Technician: José Miguel Monzon DO Ethanol Alcoholon 02-05-2021 Ethanol [Mass/Vol] mg/dL Normal <10 [facility] Comment on above: Performed By: #### C MPX, REJEC, HCG, ACET, ALCB, SALI #### [facility] [address] [place] [address] Blow Mold Technician: José Miguel Monzon DO Ethanol percent <0.010 Normal [facility] Comment on above: Performed By: #### C MPX, REJEC, HCG, ACET, ALCB, SALI #### [facility] [address] [place] [address] Blow Mold Technician: José Miguel Monzon DO HCG Screen, Bloodon 02-06-20 21 HCG Screen, Blood Negative Normal NEG [facility] Comment on above: Result Comment: Spec imens [...] MPX, REJEC, HCG, ACET, ALCB, SALI #### [facility] [address] [place] [address] Blow Mold Technician: José Miguel Monzon DO [id number] 02-05-2021 SARS-CoV-2 (COVID-19) RNA LUKASZ+probe Ql (Unsp spec) Not detected Normal NOTDET [facility] Comment on above: Result Comment: Rapid NAAT: [...] management decisions. Fact sheet for Healthcare Providers: https://www.fda.gov/media/327359/download Fact sheet for Patients: https://www.fda.gov/media/772910/download Methodology: Isothermal Nucleic Acid Amplification Performed By: #### U HCG #### [facility] [address] [place] [address] Blow Mold Technician: José Miguel Monzon DO Salicylateon 02-05-2021 Salicylate <1 Low 3-10 [facility] Comment on above: Performed By: #### C MPX, REJEC, HCG, ACET, ALCB, SALI #### [facility] [address] [place] [address] Blow Mold Technician: José Miguel Monzon DO Specimen Rejectionon 021 Reason for rejection Unable to perform testing: Specimen quantity not sufficient. [facility] Comment on above: Performed By: #### C MPX, REJEC, HCG, ACET, ALCB, SALI #### [facility] [address] [place] [address] Blow Mold Technician: José Miguel Monzon DO Source of sample .BLOOD Normal [facility] Comment on above: Performed By: #### C MPX, REJEC, HCG, ACET, ALCB, SALI #### [facility] [address] [place] [address] Blow Mold Technician: José Miguel Monzon DO Test ordered CDP Normal [facility] Comment on above: Performed By: #### C MPX, REJEC, HCG, ACET, ALCB, SALI #### [facility] [address] [place] [address] Blow Mold Technician: José Miguel Monzon DO ----- NOT REPORTED Normal [facility] Comment on above: Performed By: #### C MPX, REJEC, HCG, ACET, ALCB, SALI #### [facility] [address] [place] [address] Blow Mold Technician: José Miguel Monzon DO HPV DNA High Riskon 10-22-20 20 HPV Genotype 16 Detected Normal [facility] Comment on above: Performed By: #### U HCG #### [facility] [address] [place] [address] Blow Mold Technician: José Miguel Monzon DO HPV Genotype 18 Not detected Normal [facility] Comment on above: Result Comment: (NOT E) [...] in women under age 21. Performed By: [facility] [address] [place] [address] Charge Manager: Rebeca Alvarez MD Performed By: #### U HCG #### [facility] [address] [place] [address] Blow Mold Technician: José Miguel Monzon DO HPV Other High Risk Detected Normal [facility] Comment on above: Performed By: #### U HCG #### [facility] [address] [place] [address] Blow Mold Technician: José Miguel Monzon DO C.trachomatis N.gonorrhoeae DNA, Urineon 07-26-2020 C. trachomatis DNA ,Urine Negative NEGATIVE [facility], [place] Comment on above: CHLAMYDIA TRACHOMATI S DNA [...] target. N. gonorrhoeae DNA, Urine Negative NEGATIVE [facility], [place] Comment on above: NEISSERIA GONORRHOEA E DNA [...] alternative nucleic acid target. Specimen Description .URINE [facility], [place] Chlamydia/GC DNA, Uron 07-26 Chlamydia Probe, Ur Negative Normal NEG [facility] Comment on above: Result Comment: CHLA MYDIA [...] target. Performed By: #### U HCG #### [facility] [address] [place] [address] Blow Mold Technician: José Miguel Monzon DO Gonorrhea Probe, Ur Negative Normal NEG [facility] Comment on above: Result Comment: NEIS SERIA [...] target. Performed By: #### U HCG #### [facility] [address] [place] [address] Blow Mold Technician: José Miguel Monzon DO AVIONIC TECHNICIAN Cytologyon 07-25-2020 Cytology report Cyto stain.thin prep Doc (Cvx/Vag) INTERPRETATION Cervical material, (ThinPrep vial, Imaging-assisted review): Specimen Adequacy: Satisfactory for evaluation. - Endocervical/transfo rmation zone component present. 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 Atypical squamous cells of undetermined significance, cannot exclude high grade squamous intraepithelial lesion (ASC-H). Comments: High Risk HPV testing was ordered. Natural Science Curator: GRACE Mclain M.D. Electronically Signed Out sls/07/25/2020 Procedure/Addendum HPV Procedure Report Date Ordered: 07/25/2020 Status: Complete Date Complete: 07/25/2020 By: Date Reported: Source: 1: Cervical material, (ThinPrep vial, Imaging-assisted review) Clinical History Co-Test: ThinPrep Pap with high risk HPV testing GYNECOLOGIC CYTOLOGY REPORT Patient Name: LORNA DEUTSCH [facility] Rec: [id number] Path Number: [id number] [facility] [employer] [facility] ANATOMIC PATHOLOGY [address] [place] [address]. [place], [place] [address] [place] HPV DNA High Riskon 07-25-20 20 HVP Source .GENITAL - NOT SPECIFIED Normal [facility] Comment on above: Performed By: #### U HCG #### [facility] [address] [place] [address] Blow Mold Technician: José Miguel Monzon DO Otheron 07-25-2020 EXAMINATION: [...] Fluid: Small volume left adnexal free fluid. [place] [employer] Incoming Radiant Results From [employer] - 07/25/2020 7:17 PM EDT EXAMINATION: PELVIC [...] ovarian cyst. No follow-up imaging is recommended. [place] Unremarkable pelvic ultrasound. 3.2 cm simple left ovarian cyst. No follow-up imaging is recommended. [place] US NON OB TRANSVAGINALon US NON [...] Micheal Montesinos MD 07/25/20 Final result Normal [facility] US PELVIS COMPLETEon 020 US PELVIS COMPLETE [...] Micheal Montesinos MD 07/25/20 Final result Normal [facility] Cytologyon 07-24-2020 Cytology (NOTE) INTERPRETATION Cervical material, (ThinPrep vial, Imaging-assisted review): Specimen Adequacy: Satisfactory for evaluation. - Endocervical/transfo rmation zone component present. 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 Atypical squamous cells of undetermined significance, cannot exclude high grade squamous intraepithelial lesion (ASC-H). Comments: High Risk HPV testing was ordered. Natural Science Curator: GRACE Mclain M.D. Electronically Signed Out sls07/25/2020 [...] specimen submitted for testing did not meet [employer] submission guidelines. Testing was performed on a specimen that did not meet validated specimen type requirements. Performance characteristics of this assay may be affected. Interpret results with caution. Please refer to the [facility] Test Directory for information on specimen acceptability: [email or web address]/[email or web address] . Performed By: [facility] [address] [place] [address] Charge Manager: Rebeca Alvarez MD Source: 1: Cervical material, (ThinPrep vial, Imaging-assisted review) Clinical History Co-Test: ThinPrep Pap with high risk HPV testing GYNECOLOGIC CYTOLOGY REPORT Patient Name: LORNA DEUTSCH [facility] Rec: [id number] Path Number: [id number] [facility] ANATOMIC PATHOLOGY [address] [place] [phone] [facility] Comment on above: Performed By: #### A HCV, HIVCMB #### [address] [id number] Blow Mold Technician: Bryan Cruz MD Otheron 07-24-2020 Direct Exam Negative [place] Vaginitis DNA Probeon 2019 Vaginitis DNA [...] symptoms of vaginitis/vaginosis. Report Status FINAL 07/24/2020 Normal [facility] Comment on above: Performed By: #### U HCG #### [facility] [address] [place] [address] Blow Mold Technician: José Miguel Monzon DO Direct Exam Method of testing is a DNA probe intended for detection and identification of Jose Ramon species, Gardnerella vaginalis, and Trichomonas vaginalis nucleic acid in vaginal fluid specimens from patients with symptoms of vaginitis/vaginosis. [place] Special Requests NOT REPORTED [place] Specimen Description .VAG[place] CBC with DIFFon 07-23-2020 Basophils (Bld) [#/Vol] 0.00 10*3/uL [place] Basophils/100 WBC (Bld) 0 % 0 - 2 % [place] Differential Type NOT REPORTED [place] Eosinophils (Bld) [#/Vol] 0.20 10*3/uL [place] Eosinophils/100 WBC (Bld) 4 % 0 - 4 % [place] Erythrocyte distribution width (RBC) [Ratio] 13.3 % 11.5 - 14.9 % [place] Hematocrit (Bld) [Volume fraction] 40.0 % 36 - 46 % [place] Hemoglobin (Bld) [Mass/Vol] 13.7 g/dL 12 - 16 g/dL [place] Interpretation and review of laboratory results Abnormal [place] Lymphocytes (Bld) [#/Vol] 2.64 10*3/uL [place] Lymphocytes/100 WBC (Bld) 54 % High 24 - 44 % [place] MCH (RBC) [Entitic mass] 31.4 pg 26 - 34 pg [place] MCHC (RBC) [Mass/Vol] 34.2 g/dL 31 - 37 g/dL [place], [place] MCV (RBC) [Entitic vol] 91.9 fL 80 - 100 fL [place] Monocytes (Bld) [#/Vol] 0.20 10*3/uL [place] Monocytes/100 WBC (Bld) 4 % 1 - 7 % [place] Morphology Dami (Bld) [Interp] Normal [place] Platelet mean volume (Bld) [Entitic vol] 10.1 fL 6 - 12 fL [place] Platelets (Bld) [#/Vol] NOT REPORTED [place] Platelets (Bld) [#/Vol] 142 10*3/uL Low [place] RBC (Bld) [#/Vol] 4.36 10*6/uL 4 - 5.2 m/uL [place], [place] RBC morphology finding Nom (Bld) NOT REPORTED [place] Segmented neutrophils/100 WBC (Bld) 38 % 36 - 66 % [place] Segs Absolute 1.86 [place] WBC (Bld) [#/Vol] NOT REPORTED per 100 WBC [place] WBC (Bld) [#/Vol] 4.9 10*3/uL [place] WBC Morphology NOT REPORTED [place] CBC with Diffon 07-23-2020 Abs. Basophil 0.00 k/uL Normal 0.0-0.2 [facility] Comment on above: Performed By: #### U HCG #### [facility] [address] [place] [address] Blow Mold Technician: José Miguel Monzon DO Abs.Neutrophil (Seg) 1.86 k/uL Normal 1.3-9.1 [facility] Comment on above: Performed By: #### U HCG #### [facility] [place] [address] Blow Mold Technician: José Miguel Monzon DO Basophils/100 WBC (Bld) 0 % Normal 0-2 [facility] Comment on above: Performed By: #### U HCG #### [facility] [place] [address] Blow Mold Technician: José Miguel Monzon DO Eosinophils (Bld) [#/Vol] 0.20 10*3/uL Normal 0.0-0.4 [facility] Comment on above: Performed By: #### U HCG #### [facility] [place] [address] Blow Mold Technician: José Miguel Monzon DO Eosinophils/100 WBC (Bld) 4 % Normal 0-4 [facility] Comment on above: Performed By: #### U HCG #### [facility] [place] [address] Blow Mold Technician: José Miguel Monzon DO Lymphocytes (Bld) [#/Vol] 2.64 10*3/uL Normal 1.0-4.8 [facility] Comment on above: Performed By: #### U HCG #### [facility] [address] [place] [address] Blow Mold Technician: José Miguel Monzon DO Lymphocytes/100 WBC (Bld) 54 % High 24-44 [facility] Comment on above: Performed By: #### U HCG #### [facility] [address] [place] [address] Blow Mold Technician: José Miguel Monzon DO Monocytes (Bld) [#/Vol] 0.20 10*3/uL Normal 0.1-1.3 [facility] Comment on above: Performed By: #### U HCG #### [facility] [address] [place] [address] Blow Mold Technician: José Miguel Monzon DO Monocytes/100 WBC (Bld) 4 % Normal 1-7 [facility] Comment on above: Performed By: #### U HCG #### [facility] [place] [address] Blow Mold Technician: José Miguel Monzon DO Morphology Dami (Bld) [Interp] Normal Normal [facility] Comment on above: Performed By: #### U HCG #### [facility] [address] [place] [address] Blow Mold Technician: José Miguel Monzon DO Neutrophil (Seg) 38 % Normal 36-66 [facility] Comment on above: Performed By: #### U HCG #### [facility] [address] [place] [address] Blow Mold Technician: José Miguel Monzon DO Erythrocyte distribution width (RBC) [Ratio] 13.3 % Normal 11.5-14.9 [facility] Comment on above: Performed By: #### U HCG #### [facility] [place] [address] Blow Mold Technician: José Miguel Monzon DO Hematocrit (Bld) [Volume fraction] 40.0 % Normal 36-46 [facility] Comment on above: Performed By: #### U HCG #### [facility] [address] [place] [address] Blow Mold Technician: José Miguel Monzon DO Hemoglobin (Bld) [Mass/Vol] 13.7 g/dL Normal 12.0-16.0 [facility] Comment on above: Performed By: #### U HCG #### [facility] [address] [place] [address] Blow Mold Technician: José Miguel Monzon DO MCH (RBC) [Entitic mass] 31.4 pg Normal 26-34 [facility] Comment on above: Performed By: #### U HCG #### [facility] [address] [place] [address] Blow Mold Technician: José Miguel Monzon DO MCHC (RBC) [Mass/Vol] 34.2 g/dL Normal 31-37 [facility] Comment on above: Performed By: #### U HCG #### [facility] [address] [place] [address] Blow Mold Technician: José Miguel Monzon DO MCV (RBC) [Entitic vol] 91.9 fL Normal 80-100 [facility] Comment on above: Performed By: #### U HCG #### [facility] [address] [place] [address] Blow Mold Technician: José Miguel Monzon DO Platelet mean volume (Bld) [Entitic vol] 10.1 fL Normal 6.0-12.0 [facility] Comment on above: Performed By: #### U HCG #### [facility] [place] [address] Blow Mold Technician: José Miguel Monzon DO Platelets (Bld) [#/Vol] 142 10*3/uL Low 150-450 [facility] Comment on above: Performed By: #### U HCG #### [facility] [place] [address] Blow Mold Technician: José Miguel Monzon DO RBC (Bld) [#/Vol] 4.36 10*6/uL Normal 4.0-5.2 [facility] Comment on above: Performed By: #### U HCG #### [facility] [address] [place] [address] Blow Mold Technician: José Miguel Monzon DO WBC (Bld) [#/Vol] 4.9 10*3/uL Normal 3.5-11.0 [facility] Comment on above: Performed By: #### U HCG #### [facility] [address] [place] [address] Blow Mold Technician: José Miguel Monzon DO Abs.Imm.Granulocyte NOT REPORTED Normal 0.00-0.30 [facility] Comment on above: Performed By: #### U HCG #### [facility] [address] [place] [address] Blow Mold Technician: José Miguel Monzon DO Auto Diff Performed NOT REPORTED Normal [facility] Comment on above: Performed By: #### U HCG #### [facility] [address] [place] [address] Blow Mold Technician: José Miguel Monzon DO Immature Granulocyte NOT REPORTED Normal 0 [facility] Comment on above: Performed By: #### U HCG #### [facility] [address] [place] [address] Blow Mold Technician: José Miguel Monzon DO NRBC Automated NOT REPORTED Normal [facility] Comment on above: Performed By: #### U HCG #### [facility] [place] [address] Blow Mold Technician: José Miguel Monzon DO Platelet Estimate NOT REPORTED Normal [facility] Comment on above: Performed By: #### U HCG #### [facility] [address] [place] [address]. [place] [address] Blow Mold Technician: José Miguel Monzon DO RBC morphology finding Nom (Bld) NOT REPORTED Normal [facility] Comment on above: Performed By: #### U HCG #### [facility] [address] [place] [address]. [place] [address] Blow Mold Technician: José Miguel Monzon DO WBC Morphology NOT REPORTED Normal [facility] Comment on above: Performed By: #### U HCG #### [facility] [address] [place] [address]. [place] [address] Blow Mold Technician: José Miguel Monzon DO HCG, ,Urineon 07-23 Beta HCG ( test) Ql (U) Negative Normal NEG [facility] Comment on above: Result Comment: Spec imens with hCG levels near the threshold of the test (25 mIU/mL) may give a negative or indeterminate result. In such cases, another test should be performed with a new specimen in 48-72 hours. If early is suspected clinically in this setting, correlation with quantitative serum b-hCG level is suggested. Performed By: #### U HCG #### [facility] [address] [place] [address]. [place] [address] Blow Mold Technician: José Miguel Monzon DO Beta HCG ( test) Ql (U) Negative NEGATIVE [facility] [place], [place] Comment on above: Specimens with hCG l evels near the threshold of the test (25 mIU/mL) may give a negative or indeterminate result. In such cases, another test should be performed with a new specimen in 48-72 hours. If early is suspected clinically in this setting, correlation with quantitative serum b-hCG level is suggested. Otheron 07-23-2020 Immature granulocytes (Bld) [#/Vol] NOT REPORTED [place] EKG 12 Leadon 07-21-2020 Atrial Rate 64 BPM [place], [place] P [place] 54 degrees [place] P-R Interval 138 ms [place] Q-T Interval 384 ms [place] QRS Duration 92 ms [place] QTc Calculation (Bazett) 396 ms [place] R [place] 66 degrees [facility], [place] T [place] 66 degrees [place] Ventricular Rate 64 BPM [place] [employer] Incoming Ekg Results From [facility] - 07/21/2020 9:25 AM EDT Normal sinus rhythm Normal ECG No previous ECGs available [place] Normal sinus rhythm Normal ECG No previous ECGs available [place] HIV Ag/Abon 07-21-2020 HIV Ag/Ab Non-Reactive Normal NR [facility] Comment on above: Result Comment: No l aboratory evidence of HIV infection. If acute HIV infection is suspected, consider testing for HIV-1 RNA. Performed By: #### A HCV, HIVCMB #### [employer] [address] [place] [address] Blow Mold Technician: Bryan Cruz MD HIV Screenon 07-21-2020 HIV Ag/Ab NONREACTIVE NONREACTIVE [place] Comment on above: No laboratory eviden ce of HIV infection. If acute HIV infection is suspected, consider testing for HIV-1 RNA. T.pallidum Ab Screenon 07-21 T.pallidum Ab Screen Non-Reactive Normal NR [facility] Comment on above: Result Comment: T. pallidum antibodies are not detected. There is no serological evidence of infection with T. pallidum (early primary syphilis cannot be excluded). Retest in 2-4 weeks if syphilis is clinically suspect. Performed By: #### A HCV, HIVCMB #### [employer] [address] [place] [address] Blow Mold Technician: Bryan Cruz MD T. pallidum, IgG NONREACTIVE NONREACTIVE [place] Comment on above: T. pallidum antibodies are not detected. There is no serological evidence of infection with T. pallidum (early primary syphilis cannot be excluded). Retest in 2-4 weeks if syphilis is clinically suspect. Valproic Acidon 07-21-2020 Date last dose, [id number] Normal [facility] Comment on above: Performed By: #### A HCV, HIVCMB #### [facility] [employer] [address] [place] [address] Blow Mold Technician: Bryan Cruz MD Dose amount [address] [facility] Comment on above: Performed By: #### A HCV, HIVCMB #### [facility] [employer] [address] [place] [address] Blow Mold Technician: Bryan Cruz MD Time last dose, [address] [facility] Comment on above: Performed By: #### A HCV, HIVCMB #### [employer] [address] [place] [address] Blow Mold Technician: Bryan Cruz MD Valproic Acid 95 ug/mL Normal 50-125 [facility] Comment on above: Performed By: #### A HCV, HIVCMB #### [facility] [employer] [address] [place] [address] Blow Mold Technician: Bryan Cruz MD Valproic Acid Lvl 95 ug/mL 50 - 125 ug/mL [facility], [place] Valproic Date last dose [id number] [place] Valproic Dose amount 1000 MG [place] Valproic Time last dose 2040 [place] CBC with Diffon 07-20-2020 Abs. Basophil 0.00 k/uL Normal 0.0-0.2 [facility] Comment on above: Performed By: #### A HCV, HIVCMB #### [facility] [employer] [address] [place] [address] Blow Mold Technician: Bryan Cruz MD Abs.Neutrophil (Seg) 1.80 k/uL Normal 1.3-9.1 [facility] Comment on above: Performed By: #### A HCV, HIVCMB #### [address] [address] Blow Mold Technician: Bryan Cruz MD Basophils/100 WBC (Bld) 0 % Normal 0-2 [facility] Comment on above: Performed By: #### A HCV, HIVCMB #### [address] [address] Blow Mold Technician: Bryan Cruz MD Eosinophils (Bld) [#/Vol] 0.04 10*3/uL Normal 0.0-0.4 [facility] Comment on above: Performed By: #### A HCV, HIVCMB #### [address] [address] Blow Mold Technician: Bryan Cruz MD Eosinophils/100 WBC (Bld) 1 % Normal 0-4 [facility] Comment on above: Performed By: #### A HCV, HIVCMB #### [address] [address] Blow Mold Technician: Bryan Cruz MD Lymphocytes (Bld) [#/Vol] 1.92 10*3/uL Normal 1.0-4.8 [facility] Comment on above: Performed By: #### A HCV, HIVCMB #### [address] [address] Blow Mold Technician: Bryan Cruz MD Lymphocytes/100 WBC (Bld) 48 % High 24-44 [facility] Comment on above: Performed By: #### A HCV, HIVCMB #### [address] [address] Blow Mold Technician: Bryan Cruz MD Monocytes (Bld) [#/Vol] 0.24 10*3/uL Normal 0.1-1.3 [facility] Comment on above: Performed By: #### A HCV, HIVCMB #### [address] [address] Blow Mold Technician: Bryan Cruz MD Monocytes/100 WBC (Bld) 6 % Normal 1-7 [facility] Comment on above: Performed By: #### A HCV, HIVCMB #### [address] [address] Blow Mold Technician: Bryan Cruz MD Morphology Dami (Bld) [Interp] Normal Normal [facility] Comment on above: Performed By: #### A HCV, HIVCMB #### [address] [address] Blow Mold Technician: Bryan Cruz MD Neutrophil (Seg) 45 % Normal 36-66 [facility] Comment on above: Performed By: #### A HCV, HIVCMB #### [address] [address] Blow Mold Technician: Bryan Cruz MD Erythrocyte distribution width (RBC) [Ratio] 13.6 % Normal 11.5-14.9 [facility] Comment on above: Performed By: #### A HCV, HIVCMB #### [address] [address] Blow Mold Technician: Bryan Cruz MD Hematocrit (Bld) [Volume fraction] 41.6 % Normal 36-46 [facility] Comment on above: Performed By: #### A HCV, HIVCMB #### [address] [address] Blow Mold Technician: Bryan Cruz MD Hemoglobin (Bld) [Mass/Vol] 13.9 g/dL Normal 12.0-16.0 [facility] Comment on above: Performed By: #### A HCV, HIVCMB #### [employer] [address] Blow Mold Technician: Bryan Cruz MD MCH (RBC) [Entitic mass] 31.5 pg Normal 26-34 [facility] Comment on above: Performed By: #### A HCV, HIVCMB #### [address] [address] Blow Mold Technician: Bryan Cruz MD MCHC (RBC) [Mass/Vol] 33.5 g/dL Normal 31-37 [facility] Comment on above: Performed By: #### A HCV, HIVCMB #### [address] [address] Blow Mold Technician: Bryan Cruz MD MCV (RBC) [Entitic vol] 94.1 fL Normal 80-100 [facility] Comment on above: Performed By: #### A HCV, HIVCMB #### [address] [address] Blow Mold Technician: Bryan Cruz MD Platelet mean volume (Bld) [Entitic vol] 9.0 fL Normal 6.0-12.0 [facility] Comment on above: Performed By: #### A HCV, HIVCMB #### [address] [address] Blow Mold Technician: Bryan Cruz MD Platelets (Bld) [#/Vol] 159 10*3/uL Normal 150-450 [facility] Comment on above: Performed By: #### A HCV, HIVCMB #### [address] [address] Blow Mold Technician: Bryan Cruz MD RBC (Bld) [#/Vol] 4.42 10*6/uL Normal 4.0-5.2 [facility] Comment on above: Performed By: #### A HCV, HIVCMB #### [address] [address] Blow Mold Technician: Bryan Cruz MD WBC (Bld) [#/Vol] 4.0 10*3/uL Normal 3.5-11.0 [facility] Comment on above: Performed By: #### A HCV, HIVCMB #### [address] [address] Blow Mold Technician: Bryan Cruz MD Abs.Imm.Granulocyte NOT REPORTED Normal 0.00-0.30 [facility] Comment on above: Performed By: #### A HCV, HIVCMB #### [address] [address] Blow Mold Technician: Bryan Cruz MD Auto Diff Performed NOT REPORTED Normal [facility] Comment on above: Performed By: #### A HCV, HIVCMB #### [address] [address] Blow Mold Technician: Bryan Cruz MD Immature Granulocyte NOT REPORTED Normal 0 [facility] Comment on above: Performed By: #### A HCV, HIVCMB #### [address] [address] Blow Mold Technician: Bryan Cruz MD NRBC Automated NOT REPORTED Normal [facility] Comment on above: Performed By: #### A HCV, HIVCMB #### [address] [address] Blow Mold Technician: Bryan Cruz MD Platelet Estimate NOT REPORTED Normal [facility] Comment on above: Performed By: #### A HCV, HIVCMB #### [address] [address] Blow Mold Technician: Bryan Cruz MD RBC morphology finding Nom (Bld) NOT REPORTED Normal [facility] Comment on above: Performed By: #### A HCV, HIVCMB #### [address] [address] Blow Mold Technician: Bryan Cruz MD WBC Morphology NOT REPORTED Normal [facility] Comment on above: Performed By: #### A HCV, HIVCMB #### [address] [address] Blow Mold Technician: Bryan Cruz MD Comp Metabolic Profon 2019 (cont.) Normal [facility] Comment on above: Result Comment: Aver age GFR for 30-39 years old: 107 mL/min/1.73sq m Chronic Kidney Disease: <60 mL/min/1.73sq m Kidney failure: <15 mL/min/1.73sq m eGFR calculated using average adult body mass. Additional eGFR calculator available at: http://www.Cinpost/multiple_crcl_2011.htm Performed By: #### A HCV, HIVCMB #### [address] [address] Blow Mold Technician: Bryan Cruz MD Albumin [Mass/Vol] 3.7 g/dL Normal 3.5-5.2 [facility] Comment on above: Performed By: #### A HCV, HIVCMB #### [address] [address] Blow Mold Technician: Bryan Cruz MD Alkaline Phos 42 U/L Normal 35-104 [facility] Comment on above: Performed By: #### A HCV, HIVCMB #### [address] [address] Blow Mold Technician: Bryan Cruz MD ALT [Catalytic activity/Vol] 9 U/L Normal 5-33 [facility] Comment on above: Performed By: #### A HCV, HIVCMB #### [address] [address] Blow Mold Technician: Bryan Cruz MD Anion gap [Moles/Vol] 10 mmol/L Normal 9-17 [facility] Comment on above: Performed By: #### A HCV, HIVCMB #### [address] [address] Blow Mold Technician: Bryan Cruz MD AST [Catalytic activity/Vol] 11 U/L Normal <32 [facility] Comment on above: Performed By: #### A HCV, HIVCMB #### [address] [address] Blow Mold Technician: Bryan Cruz MD Bilirubin [Mass/Vol] 0.23 mg/dL Low 0.3-1.2 [facility] Comment on above: Performed By: #### A HCV, HIVCMB #### [address] [address] Blow Mold Technician: Bryan Cruz MD Calcium [Mass/Vol] 9.3 mg/dL Normal 8.6-10.4 [facility] Comment on above: Performed By: #### A HCV, HIVCMB #### [address] [address] Blow Mold Technician: Bryan Cruz MD Chloride [Moles/Vol] 105 mmol/L Normal 98-107 [facility] Comment on above: Performed By: #### A HCV, HIVCMB #### [address] [address] Blow Mold Technician: Bryan Cruz MD CO2 [Moles/Vol] 24 mmol/L Normal 20-31 [facility] Comment on above: Performed By: #### A HCV, HIVCMB #### [address] [address] Blow Mold Technician: Bryan Cruz MD Creatinine [Mass/Vol] 0.53 mg/dL Normal 0.50-0.90 [facility] Comment on above: Performed By: #### A HCV, HIVCMB #### [address] [address] Blow Mold Technician: Bryan Cruz MD GFR, Amer >60 Normal >60 [facility] Comment on above: Performed By: #### A HCV, HIVCMB #### [address] [address] Blow Mold Technician: Bryan Cruz MD GFR,non Amer >60 Normal >60 [facility] Comment on above: Performed By: #### A HCV, HIVCMB #### [address] [address] Blow Mold Technician: Bryan Cruz MD Glucose [Mass/Vol] 88 mg/dL Normal 70-99 [facility] Comment on above: Performed By: #### A HCV, HIVCMB #### [address] [address] Blow Mold Technician: Bryan Cruz MD Potassium [Moles/Vol] 4.6 mmol/L Normal 3.7-5.3 [facility] Comment on above: Performed By: #### A HCV, HIVCMB #### [address] [address] Blow Mold Technician: Bryan Cruz MD Protein [Mass/Vol] 6.4 g/dL Normal 6.4-8.3 [facility] Comment on above: Performed By: #### A HCV, HIVCMB #### [address] [address] Blow Mold Technician: Bryan Cruz MD Sodium [Moles/Vol] 139 mmol/L Normal 135-144 [facility] Comment on above: Performed By: #### A HCV, HIVCMB #### [address] [address] Blow Mold Technician: Bryan Cruz MD Urea nitrogen [Mass/Vol] 17 mg/dL Normal 6-20 [facility] Comment on above: Performed By: #### A HCV, HIVCMB #### [address] [address] Blow Mold Technician: Bryan Cruz MD Albumin/Glob Ratio NOT REPORTED Normal 1.0-2.5 [facility] Comment on above: Performed By: #### A HCV, HIVCMB #### [facility] [address] [place], [place] [id number] Blow Mold Technician: Bryan Cruz MD BUN/CRE Ratio NOT REPORTED Normal 9-20 [facility] Comment on above: Performed By: #### A HCV, HIVCMB #### [facility] [address] [place], [place] [id number] Blow Mold Technician: Bryan Cruz MD Staging: NOT REPORTED Normal [facility] Comment on above: Performed By: #### A HCV, HIVCMB #### [facility] [address] [place], [place] [id number] Blow Mold Technician: Bryan Cruz MD Albumin [Mass/Vol] 3.7 g/dL 3.5 - 5.2 g/dL [place], [place] Albumin/Globulin [Mass ratio] NOT REPORTED [place] ALP [Catalytic activity/Vol] 42 U/L 35 - 104 U/L [place] ALT [Catalytic activity/Vol] 9 U/L 5 - 33 U/L [place] Anion gap [Moles/Vol] 10 mmol/L 9 - 17 mmol/L [place] AST [Catalytic activity/Vol] 11 U/L <32 [place] Bilirubin Ql (U) 0.23 mg/dL Low 0.3 - 1.2 mg/dL [place], [place] Bun/Cre Ratio NOT REPORTED [place] Calcium [Mass/Vol] 9.3 mg/dL 8.6 - 10. 4 mg/dL [place] Chloride [Moles/Vol] 105 mmol/L 98 - 107 mmol/L [place] CO2 [Moles/Vol] 24 mmol/L 20 - 31 mmol/L [place] Creatinine [Mass/Vol] 0.53 mg/dL 0.5 - 0.9 mg/d L [place] GFR >60 >60 mL/min [place], [place] GFR Non- >60 >60 mL/min [place] GFR/1.73 sq M predicted among non-blacks MDRD (S/P/Bld) [Vol rate/Area] NOT REPORTED [place] GFR/1.73 sq M predicted among non-blacks MDRD (S/P/Bld) [Vol rate/Area] [place] Comment on above: Average GFR for 30-3 9 years old: 107 mL/min/1.73sq m Chronic Kidney Disease: <60 mL/min/1.73sq m Kidney failure: <15 mL/min/1.73sq m eGFR calculated using average adult body mass. Additional eGFR calculator available at: http://www.Cinpost/multiple_crcl_2011.htm Glucose [Mass/Vol] 88 mg/dL 70 - 99 mg/dL [place], [place] Interpretation and review of laboratory results Abnormal [place] Potassium [Moles/Vol] 4.6 mmol/L 3.7 - 5.3 mmol/L [place] Protein [Mass/Vol] 6.4 g/dL 6.4 - 8.3 g/dL [place] Sodium [Moles/Vol] 139 mmol/L 135 - 144 mmol/L [place] Urea nitrogen [Mass/Vol] 17 mg/dL 6 - 20 mg/dL [place] Hep C Abon 07-20-2020 Hep C Ab Reactive Abnormal NR [facility] Comment on above: Result Comment: The hepatitis [...] Performed By: #### A HCV, HIVCMB #### [address] [address] Blow Mold Technician: Bryan Cruz MD Hepatitis C Ab REACTIVE Abnormal NONREACTIVE [place] Comment on above: The hepatitis C [...] Interpretation and review of laboratory results Abnormal [place] TSH w/reflex to FT4on 2019 TSH Qn 3.88 m[IU]/L Normal 0.30-5.00 [facility] Comment on above: Performed By: #### A HCV, HIVCMB #### [address] [id number] Blow Mold Technician: Bryan Cruz MD TSH Qn 3.88 m[IU]/L [place] Cult,Urineon 05-09-2019 Cult,Urine Specimen Description .CLEAN CATCH URINE Special Requests NOT REPORTED Culture STREPTOCOCCI, BETA HEMOLYTIC GROUP B <[id number] CFU/ML Report Status FINAL 05/09/2019 Normal [facility] Comment on above: Performed By: #### U RC #### [address] [id number] Blow Mold Technician: Bryan Cruz MD [address] [place] [address] Blow Mold Technician: Reji Brown MD CBC with Diffon 05-08-2019 Abs. Basophil 0.03 k/uL Normal 0.00-0.20 [facility] Comment on above: Performed By: #### C MPX, CDP, LIP, HCG #### [address] [place] [address] Blow Mold Technician: Reji Brown MD Abs.Imm.Granulocyte <0.03 Normal 0.00-0.30 [facility] Comment on above: Performed By: #### C MPX, CDP, LIP, HCG #### [address] [place] [address] Blow Mold Technician: Reji Brown MD Abs.Neutrophil (Seg) 2.35 k/uL Normal 1.50-8.10 [facility] Comment on above: Performed By: #### C MPX, CDP, LIP, HCG #### [facility] [address] [place] [address] Blow Mold Technician: Reji Brown MD Basophils/100 WBC (Bld) 1 % Normal 0-2 [facility] Comment on above: Performed By: #### C MPX, CDP, LIP, HCG #### [facility] [address] [place], [facility] Blow Mold Technician: Reji Brown MD Eosinophils (Bld) [#/Vol] 0.20 10*3/uL Normal 0.00-0.44 [facility] Comment on above: Performed By: #### C MPX, CDP, LIP, HCG #### [address] [place], [place] [address] Blow Mold Technician: Reji Brown MD Eosinophils/100 WBC (Bld) 4 % Normal 1-4 [facility] Comment on above: Performed By: #### C MPX, CDP, LIP, HCG #### [address] [place] [address] Blow Mold Technician: Reji Brown MD Erythrocyte distribution width (RBC) [Ratio] 14.2 % Normal 11.8-14.4 [facility] Comment on above: Performed By: #### C MPX, CDP, LIP, HCG #### [address] [place], [facility] Blow Mold Technician: Reji Brown MD Hematocrit (Bld) [Volume fraction] 34.3 % Low 36.3-47.1 [facility] Comment on above: Performed By: #### C MPX, CDP, LIP, HCG #### [address] [place], [facility] Blow Mold Technician: Reji Brown MD Hemoglobin (Bld) [Mass/Vol] 11.2 g/dL Low 11.9-15.1 [facility] Comment on above: Performed By: #### C MPX, CDP, LIP, HCG #### [facility] [address] [place], [place] [id number] Blow Mold Technician: Reji Brown MD Immature granulocytes (Bld) [#/Vol] 0 % Normal 0 [facility] Comment on above: Performed By: #### C MPX, CDP, LIP, HCG #### [facility] [address] [place], [place] [id number] Blow Mold Technician: Reji Brown MD Lymphocytes (Bld) [#/Vol] 2.75 10*3/uL Normal 1.10-3.70 [facility] Comment on above: Performed By: #### C MPX, CDP, LIP, HCG #### [facility] [address] [place], [place] [address] Blow Mold Technician: Reji Brown MD Lymphocytes/100 WBC (Bld) 46 % High 24-43 [facility] Comment on above: Performed By: #### C MPX, CDP, LIP, HCG #### [facility] [address] [place], [place] [address] Blow Mold Technician: Reji Brown MD MCH (RBC) [Entitic mass] 30.7 pg Normal 25.2-33.5 [facility] Comment on above: Performed By: #### C MPX, CDP, LIP, HCG #### [facility] [address] [place], [place] [address] Blow Mold Technician: Reji Brown MD MCHC (RBC) [Mass/Vol] 32.7 g/dL Normal 28.4-34.8 [facility] Comment on above: Performed By: #### C MPX, CDP, LIP, HCG #### [facility] [address] [place], [place] [id number] Blow Mold Technician: Reji Brown MD MCV (RBC) [Entitic vol] 94.0 fL Normal 82.6-102.9 [facility] Comment on above: Performed By: #### C MPX, CDP, LIP, HCG #### [facility] [address] [place], [place] [address] Blow Mold Technician: Reji Brown MD Monocytes (Bld) [#/Vol] 0.43 10*3/uL Normal 0.10-1.20 [facility] Comment on above: Performed By: #### C MPX, CDP, LIP, HCG #### [facility] [address] [place], [place] [address] Blow Mold Technician: Reji Brown MD Monocytes/100 WBC (Bld) 8 % Normal 3-12 [facility] Comment on above: Performed By: #### C MPX, CDP, LIP, HCG #### [facility] [address] [place], [place] [address] Blow Mold Technician: Reji Brown MD Neutrophil (Seg) 41 % Normal 36-65 [facility] Comment on above: Performed By: #### C MPX, CDP, LIP, HCG #### [facility] [address] [place], [facility]83 Blow Mold Technician: Reji Brown MD NRBC Automated 0.0 per 100 WBC Normal 0.0 [facility] Comment on above: Performed By: #### C MPX, CDP, LIP, HCG #### [facility] [address] [place], [facility]83 Blow Mold Technician: Reji Brown MD Platelet mean volume (Bld) [Entitic vol] 10.5 fL Normal 8.1-13.5 [facility] Comment on above: Performed By: #### C MPX, CDP, LIP, HCG #### [facility] [address] [place], [place] [id number] Blow Mold Technician: Reji Brown MD Platelets (Bld) [#/Vol] 219 10*3/uL Normal 138-453 [facility] Comment on above: Performed By: #### C MPX, CDP, LIP, HCG #### [facility] [address] [place] [address] Blow Mold Technician: Reji Brown MD RBC (Bld) [#/Vol] 3.65 10*6/uL Low 3.95-5.11 [facility] Comment on above: Performed By: #### C MPX, CDP, LIP, HCG #### [facility] [address] [place] [address] Blow Mold Technician: Reji Brown MD WBC (Bld) [#/Vol] 5.8 10*3/uL Normal 3.5-11.3 [facility] Comment on above: Performed By: #### C MPX, CDP, LIP, HCG #### [facility] [address] [place] [address] Blow Mold Technician: Reji Brown MD Auto Diff Performed NOT REPORTED Normal [facility] Comment on above: Performed By: #### C MPX, CDP, LIP, HCG #### [facility] [address] [place] [address] Blow Mold Technician: Reji Brown MD Platelets (d) [#/Vol] NOT REPORTED Normal [facility] Comment on above: Performed By: #### C MPX, CDP, LIP, HCG #### [facility] [address] [place] [address] Blow Mold Technician: Reji Brown MD RBC morphology finding Nom (d) NOT REPORTED Normal [facility] Comment on above: Performed By: #### C MPX, CDP, LIP, HCG #### [facility] [address] [place], [place] [address] Blow Mold Technician: Reji Brown MD WBC Morphology NOT REPORTED Normal [facility] Comment on above: Performed By: #### C MPX, CDP, LIP, HCG #### [facility] [address] [place], [place] [address] Blow Mold Technician: Reji Brown MD Comp Metabolic Pr/rfx MGon 0 05-08-2019 Bilirubin Ql (U) <0.10 Low 0.3-1.2 [facility] Comment on above: Performed By: #### C MPX, CDP, LIP, HCG #### [facility] [address] [place], [facility]83 Blow Mold Technician: Reji Brown MD (cont.) [facility] Comment on above: Result Comment: Aver age GFR for 30-39 years old: 107 mL/min/1.73sq m Chronic Kidney Disease: <60 mL/min/1.73sq m Kidney failure: <15 mL/min/1.73sq m eGFR calculated using average adult body mass. Additional eGFR calculator available at: http://www.Cinpost/multiple_crcl_2011.htm Performed By: #### C MPX, CDP, LIP, HCG #### [facility] [address] [place] [address] Blow Mold Technician: Reji Brown MD Albumin [Mass/Vol] 4.0 g/dL Normal 3.5-5.2 [facility] Comment on above: Performed By: #### C MPX, CDP, LIP, HCG #### [facility] [address] [place], [place] [address] Blow Mold Technician: Reji Brown MD Albumin/Globulin [Mass ratio] 1.5 {ratio} Normal 1.0-2.5 [facility] Comment on above: Performed By: #### C MPX, CDP, LIP, HCG #### [facility] [address] [place] [address] Blow Mold Technician: Reji Brown MD Alkaline Phos 53 U/L Normal 35-104 [facility] Comment on above: Performed By: #### C MPX, CDP, LIP, HCG #### [facility] [address] [place], [place] [address] Blow Mold Technician: Reji Brown MD ALT [Catalytic activity/Vol] 11 U/L Normal 5-33 [facility] Comment on above: Performed By: #### C MPX, CDP, LIP, HCG #### [facility] [address] [place], [place] [address] Blow Mold Technician: Reji Brown MD Anion gap [Moles/Vol] 9 mmol/L Normal 9-17 [facility] Comment on above: Performed By: #### C MPX, CDP, LIP, HCG #### [facility] [address] [place], [place] [address] Blow Mold Technician: Reji Brown MD AST [Catalytic activity/Vol] 16 U/L Normal <32 [facility] Comment on above: Performed By: #### C MPX, CDP, LIP, HCG #### [facility] [address] [place], [place] [address] Blow Mold Technician: Reji Brown MD BUN/CRE Ratio 19 Normal 9-20 [facility] Comment on above: Performed By: #### C MPX, CDP, LIP, HCG #### [facility] [address] [place], [place] [address] Blow Mold Technician: Reji Brown MD Calcium [Mass/Vol] 9.7 mg/dL Normal 8.6-10.4 [facility] Comment on above: Performed By: #### C MPX, CDP, LIP, HCG #### [facility] [address] [place], [place] [address] Blow Mold Technician: Reji Brown MD Chloride [Moles/Vol] 102 mmol/L Normal 98-107 [facility] Comment on above: Performed By: #### C MPX, CDP, LIP, HCG #### [facility] [address] [place], [place] [address] Blow Mold Technician: Reji Brown MD CO2 [Moles/Vol] 31 mmol/L Normal 20-31 [facility] Comment on above: Performed By: #### C MPX, CDP, LIP, HCG #### [facility] [address] [place] [address] Blow Mold Technician: Reji Brown MD Creatinine [Mass/Vol] 0.79 mg/dL Normal 0.50-0.90 [facility] Comment on above: Performed By: #### C MPX, CDP, LIP, HCG #### [facility] [address] [place], [place] [address] Blow Mold Technician: Reji Brown MD GFR, Amer >60 Normal >60 [facility] Comment on above: Performed By: #### C MPX, CDP, LIP, HCG #### [facility] [address] [place], [place] [address] Blow Mold Technician: Reji Brown MD GFR,non Amer >60 Normal >60 [facility] Comment on above: Performed By: #### C MPX, CDP, LIP, HCG #### [facility] [address] [place], [place] [address] Blow Mold Technician: Reji Brown MD Glucose [Mass/Vol] 102 mg/dL High 70-99 [facility] Comment on above: Performed By: #### C MPX, CDP, LIP, HCG #### [facility] [address] [place], [place] [address]83 Blow Mold Technician: Reji Brown MD Potassium [Moles/Vol] 4.5 mmol/L Normal 3.7-5.3 [facility] Comment on above: Performed By: #### C MPX, CDP, LIP, HCG #### [facility] [address] [place] [address] Blow Mold Technician: Reji Brown MD Protein [Mass/Vol] 6.7 g/dL Normal 6.4-8.3 [facility] Comment on above: Performed By: #### C MPX, CDP, LIP, HCG #### [facility] [address] [place] [address] Blow Mold Technician: Reji Brown MD Sodium [Moles/Vol] 142 mmol/L Normal 135-144 [facility] Comment on above: Performed By: #### C MPX, CDP, LIP, HCG #### [facility] [address] [place] [address] Blow Mold Technician: Reji Brown MD Staging: Normal [facility] Comment on above: Result Comment: Stag e 1: Some kidney damage normal GFR Stage 2: Mild kidney damage GFR 60-89 Stage 3: Moderate kidney damage GFR 30-59 Stage 4: Severe kidney damage GFR 15-29 Stage 5: Severe kidney damage GFR <15 ESRD - chronic treatment by dialysis or transplant Performed By: #### C MPX, CDP, LIP, HCG #### [facility] [address] [place] [address] Blow Mold Technician: eRji Brown MD Urea nitrogen [Mass/Vol] 15 mg/dL Normal 6-20 [facility] Comment on above: Performed By: #### C MPX, CDP, LIP, HCG #### [facility] [address] [place] [address] Blow Mold Technician: Reji Brown MD HCG Screen, Bloodon 05-08-20 19 HCG Qn Negative Normal NEG [facility] Comment on above: Result Comment: Spec imens with hCG levels near the threshold of the test (25 mIU/mL) may give a negative or indeterminate result. In such cases, another test should be performed with a new specimen in 48-72 hours. If early is suspected clinically in this setting, correlation with quantitative serum b-hCG level is suggested. [facility] has confirmed the use of plasma for this test. This has not been cleared or approved by the U.S. Food and Drug Administration. The FDA has determined that such clearance is not necessary. Performed By: #### C MPX, CDP, LIP, HCG #### [facility] [address] [place], [place] [address] Blow Mold Technician: Reji Brown MD Lipaseon 05-08-2019 Lipase [Catalytic activity/Vol] 13 U/L Normal 13-60 [facility] Comment on above: Performed By: #### C MPX, CDP, LIP, HCG #### [facility] [address] [place] [address] Blow Mold Technician: Reji Brown MD Urinalysis, Routineon 2018 Acetoacetic Acid,Ur Negative Normal NEG [facility] Comment on above: Performed By: #### U MICAO, UA #### [facility] [address] [place], [place] [id number] Blow Mold Technician: Reji Brown MD Bilirubin, SemiQt,Ur Negative Normal NEG [facility] Comment on above: Performed By: #### U MICAO, UA #### [facility] [address] [place], [facility] Blow Mold Technician: Reji Brown MD Color (U) YELLOW Normal L [facility] Comment on above: Performed By: #### U MICAO, UA #### [facility] [address] [place], [facility] Blow Mold Technician: Reji Brown MD Glucose Ql (U) Negative Normal NEG [facility] Comment on above: Performed By: #### U MICAO, UA #### [facility] [address] [place], [facility] Blow Mold Technician: Reji Brown MD Hemoglobin, Ur Negative Normal NEG [facility] Comment on above: Performed By: #### U MICAO, UA #### [facility] [address] [place] [address] Blow Mold Technician: Reji Brown MD Leukocyte esterase Test strip Ql (U) Negative Normal NEG [facility] Comment on above: Performed By: #### U MICAO, UA #### [facility] [address] [place], [place] [id number] Blow Mold Technician: Reji Brown MD Nitrite,Ur Negative Normal NEG [facility] Comment on above: Performed By: #### U MICAO, UA #### [facility] [address] [place], [place] [id number] Blow Mold Technician: Reji Brown MD pH (U) 7.5 [pH] Normal 5.0-9.0 [facility] Comment on above: Performed By: #### U MICAO, UA #### [facility] [address] [place], [place] [id number] Blow Mold Technician: Reji Brown MD Protein Ql (U) Negative Normal NEG [facility] Comment on above: Performed By: #### U MICAO, UA #### [facility] [address] [place], [place] [id number] Blow Mold Technician: Reji Brown MD Specific gravity (U) [Rel density] 1.015 Normal 1.010-1.020 [facility] Comment on above: Performed By: #### U MICAO, UA #### [facility] [address] [place], [place] [id number] Blow Mold Technician: Reji Brown MD Turbidity CLOUDY Abnormal CLEAR [facility] Comment on above: Performed By: #### U MICAO, UA #### [facility] [address] [place], [place] [id number] Blow Mold Technician: Reji Brown MD Urobilinogen,Ur Normal Normal NORM [facility] Comment on above: Performed By: #### U MICAO, UA #### [facility] [address] [place], [place] [id number] Blow Mold Technician: Reji Brown MD Comment NOT REPORTED Normal [facility] Comment on above: Performed By: #### U MICAO, UA #### [facility] [address] [place], [facility] Blow Mold Technician: Reji Brown MD Urinalysis,Microon 9 ----- Normal [facility] Comment on above: Performed By: #### U MICAO, UA #### [facility] [address] [place], [place] [id number] Blow Mold Technician: Reji Borwn MD Amorphous sediment LM Ql (Urine sed) 4+ Abnormal NONE [facility] Comment on above: Performed By: #### U MICAO, UA #### [facility] [address] [place] [address] Blow Mold Technician: Reji Brown MD Epithelial cells LM.HPF (Urine sed) [#/Area] 5 TO 10 Normal 0-25 [facility] Comment on above: Performed By: #### U ASHELYO, UA #### [facility] [address] [place] [address] Blow Mold Technician: Reji Brown MD RBC (U) [#/Vol] None Normal 0-2 [facility] Comment on above: Performed By: #### U ASHELYO, UA #### [facility] [address] [place], [place] [id number] Blow Mold Technician: Reji Brown MD WBC (U) [#/Vol] None Normal 0-5 [facility] Comment on above: Performed By: #### U MICAO, UA #### [facility] [address] [place] [id number] Blow Mold Technician: Reji Brown MD Bacteria LM.HPF (Urine sed) [#/Area] NOT REPORTED Normal [facility] Comment on above: Performed By: #### U MICAO, UA #### [facility] [address] [place], [place] [id number] Blow Mold Technician: Reji Brown MD Casts LM.LPF (Urine sed) [#/Area] NOT REPORTED Normal [facility] Comment on above: Performed By: #### U MICAO, UA #### [facility] [address] [place], [place] [id number] Blow Mold Technician: Reji Brown MD Crystals LM Nom (Urine sed) NOT REPORTED Normal NONE [facility] Comment on above: Performed By: #### U MICAO, UA #### [facility] [address] [place], [place] [id number] Blow Mold Technician: Reji Brown MD Epithelial, Renal NOT REPORTED Normal 0 [facility] Comment on above: Performed By: #### U MICAO, UA #### [facility] [address] [place], [place] [id number] Blow Mold Technician: Reji Brown MD Mucus Strands NOT REPORTED Normal NONE [facility] Comment on above: Performed By: #### U MICAO, UA #### [facility] [address] [place], [place] [address] Blow Mold Technician: Reji Brown MD Other Observations NOT REPORTED Normal NREQ [facility] Comment on above: Performed By: #### U MICAO, UA #### [facility] [address] [place] [id number] Blow Mold Technician: Reji Brown MD Trichomonas NOT REPORTED Normal NONE [facility] Comment on above: Performed By: #### U MICAO, UA #### [facility] [address] [place], [facility] Blow Mold Technician: Reji Brown MD Yeast LM Ql (Urine sed) NOT REPORTED Normal [facility] Comment on above: Performed By: #### U MICAO, UA #### [facility] [address] [place] [address] Blow Mold Technician: Reji Brown MD XR ACUTE ABD SERIES [...] Cleve Velazquez MD 05/08/19 Final result Normal [facility] Vital Signs Date Time Vital Sign Value Performing Clinician Facility 10-21-2023 07:30-0500 Body temperature 97.4 [degF] RUIZ Pena Work Phone: [facility] 10-21-2023 07:30-0500 Diastolic blood pressure 67 mm[Hg] COMPUTER SYSTEMS TECHNOLOGY INSTRUCTOR Cris Robconrado Work Phone: [facility] 10-21-2023 07:30-0500 Heart rate 81 /min COMPUTER SYSTEMS TECHNOLOGY INSTRUCTORApoorva Pena Work Phone: [facility] 10-21-2023 07:30-0500 SaO2% (BldA) [Mass fraction] 99 % COMPUTER SYSTEMS TECHNOLOGY INSTRUCTORApoorva Pena Work Phone: [facility] 10-21-2023 07:30-0500 Systolic blood pressure 102 mm[Hg] COMPUTER SYSTEMS TECHNOLOGY INSTRUCTOR Cris Robconrado Work Phone: [facility] 10-20-2023 21:59-0500 Respiratory rate 16 /min RUIZ Lynch Robconrado Work Phone: [facility] 10-19-2023 09:00-0500 Body weight 69 kg RUIZ Pena Work Phone: [facility] 10-16-2023 08:34-0500 Body height 167.64 cm COMPUTER SYSTEMS TECHNOLOGY INSTRUCTOR Cris Robuck Work Phone: [facility] 10-09-2023 01:00-0500 Diastolic blood pressure 58 mm[Hg] [facility] 10-09-2023 01:00-0500 Heart rate 68 /min [facility] 10-09-2023 01:00-0500 Respiratory rate 16 /min [facility] 10-09-2023 01:00-0500 SaO2% (BldA) [Mass fraction] 93 % [facility] 10-09-2023 01:00-0500 Systolic blood pressure 102 mm[Hg] [facility] 10-08-2023 20:56-0500 Body height 167.64 cm [facility] 10-08-2023 20:56-0500 Body temperature 98.6 [degF] [facility] 10-08-2023 20:56-0500 Body weight 70 kg [facility] 09-14-2023 18:27-0500 Body height 167.64 cm COMPUTER SYSTEMS TECHNOLOGY INSTRUCTOR Cris Robuck Work Phone: [facility] 09-14-2023 18:27-0500 Body temperature 98.1 [degF] COMPUTER SYSTEMS TECHNOLOGY INSTRUCTOR Cris Robuck Work Phone: [facility] 09-14-2023 18:27-0500 Body weight 73 kg COMPUTER SYSTEMS TECHNOLOGY INSTRUCTOR Cris Robuck Work Phone: [facility] 09-14-2023 18:27-0500 Diastolic blood pressure 80 mm[Hg] COMPUTER SYSTEMS TECHNOLOGY INSTRUCTOR Cris Robuck Work Phone: [facility] 09-14-2023 18:27-0500 Heart rate 97 /min COMPUTER SYSTEMS TECHNOLOGY INSTRUCTOR Cris Robuck Work Phone: [facility] 09-14-2023 18:27-0500 Respiratory rate 16 /min COMPUTER SYSTEMS TECHNOLOGY INSTRUCTOR Cris Robuck Work Phone: [facility] 09-14-2023 18:27-0500 SaO2% (BldA) [Mass fraction] 98 % COMPUTER SYSTEMS TECHNOLOGY INSTRUCTOR Cris Robuck Work Phone: [facility] 09-14-2023 18:27-0500 Systolic blood pressure 128 mm[Hg] RUIZ Pena Work Phone: [facility] 07-13-2023 09:00-0400 Body weight 79.28 kg [facility] 07-13-2023 07:30-0400 Body temperature 98.4 [degF] [facility] 07-13-2023 07:30-0400 Diastolic blood pressure 72 mm[Hg] [facility] 07-13-2023 07:30-0400 Heart rate 98 /min [facility] 07-13-2023 07:30-0400 Respiratory rate 20 /min [facility] 07-13-2023 07:30-0400 SaO2% (BldA) [Mass fraction] 95 % [facility] 07-13-2023 07:30-0400 Systolic blood pressure 105 mm[Hg] [facility] 07-08-2023 14:36-0400 Body height 165.1 cm [facility] 06-08-2023 08:18-0400 Body height 165.1 cm [facility] 06-08-2023 08:18-0400 Body temperature 97.7 [degF] [facility] 06-08-2023 08:18-0400 Body weight 67.58 kg [facility] 06-08-2023 08:18-0400 Diastolic blood pressure 55 mm[Hg] [facility] 06-08-2023 08:18-0400 Heart rate 68 /min [facility] 06-08-2023 08:18-0400 Respiratory rate 18 /min [facility] 06-08-2023 08:18-0400 SaO2% (BldA) [Mass fraction] 98 % [facility] 06-08-2023 08:18-0400 Systolic blood pressure 120 mm[Hg] [facility] 04-19-2023 19:09-0400 Body height 165.1 cm RUIZ Pena Work Phone: 7(298)086-[address]15[address] [place] [address] 04-19-2023 19:09-0400 Body temperature 97.6 [degF] COMPUTER SYSTEMS TECHNOLOGY INSTRUCTOR Cris Robuck Work Phone: [facility] 04-19-2023 19:09-0400 Body weight 66.55 kg COMPUTER SYSTEMS TECHNOLOGY INSTRUCTOR Cris Robuck Work Phone: [facility] 04-19-2023 19:09-0400 Diastolic blood pressure 97 mm[Hg] COMPUTER SYSTEMS TECHNOLOGY INSTRUCTOR Cris Robuck Work Phone: [facility] 04-19-2023 19:09-0400 Heart rate 83 /min COMPUTER SYSTEMS TECHNOLOGY INSTRUCTOR Cris Robuck Work Phone: [facility] 04-19-2023 19:09-0400 Respiratory rate 18 /min COMPUTER SYSTEMS TECHNOLOGY INSTRUCTOR Cris Robuck Work Phone: [facility] 04-19-2023 19:09-0400 SaO2% (BldA) [Mass fraction] 100 % COMPUTER SYSTEMS TECHNOLOGY INSTRUCTOR Cris Robuck Work Phone: [facility] 04-19-2023 19:09-0400 Systolic blood pressure 124 mm[Hg] COMPUTER SYSTEMS TECHNOLOGY INSTRUCTOR Cris Robuck Work Phone: [facility] 04-18-2023 22:55-0400 Diastolic blood pressure 88 mm[Hg] COMPUTER SYSTEMS TECHNOLOGY INSTRUCTOR Cris Robuck Work Phone: 4(770)946-011975 [place] [address] 04-18-2023 22:55-0400 Heart rate 98 /min COMPUTER SYSTEMS TECHNOLOGY INSTRUCTOR Cris Robuck Work Phone: 1(766)244-789375 [place] [address] 04-18-2023 22:55-0400 Respiratory rate 16 /min COMPUTER SYSTEMS TECHNOLOGY INSTRUCTOR Cris Robuck Work Phone: [facility] 04-18-2023 22:55-0400 SaO2% (BldA) [Mass fraction] 98 % COMPUTER SYSTEMS TECHNOLOGY INSTRUCTOR Cris Robuck Work Phone: [facility] 04-18-2023 22:55-0400 Systolic blood pressure 136 mm[Hg] COMPUTER SYSTEMS TECHNOLOGY INSTRUCTOR Cris Robuck Work Phone: [facility] 04-18-2023 21:13-0400 Body height 165.1 cm COMPUTER SYSTEMS TECHNOLOGY INSTRUCTOR Cris Solisuck Work Phone: [facility] 04-18-2023 21:13-0400 Body temperature 98 [degF] COMPUTER SYSTEMS TECHNOLOGY INSTRUCTOR Cris Solisuck Work Phone: [facility] 04-18-2023 21:13-0400 Body weight 66.45 kg COMPUTER SYSTEMS TECHNOLOGY INSTRUCTOR Cris Solisuck Work Phone: [facility] 04-16-2023 14:57-0400 Body weight 65.77 kg Caitlin Muha COMPUTER SYSTEMS TECHNOLOGY INSTRUCTOR.PLUM P[employer]ER Work Phone: [facility] 04-16-2023 14:57-0400 Diastolic blood pressure 79 mm[Hg] Caitlin Muha COMPUTER SYSTEMS TECHNOLOGY INSTRUCTOR.PLUM P[employer]ER Work Phone: [facility] 04-16-2023 14:57-0400 Heart rate 108 /min Caitlin Muha COMPUTER SYSTEMS TECHNOLOGY INSTRUCTOR.PLUM P[employer]ER Work Phone: [facility] 04-16-2023 14:57-0400 Systolic blood pressure 133 mm[Hg] Caitlin Muha COMPUTER SYSTEMS TECHNOLOGY INSTRUCTOR.PLUM P[employer]ER Work Phone: [facility] 03-16-2023 08:40-0400 Body height 167.9 cm Caitlin Muha COMPUTER SYSTEMS TECHNOLOGY INSTRUCTOR.PLUM P[employer]ER Work Phone: [facility] 03-16-2023 08:40-0400 Body temperature 98.1 [degF] Caitlin Muha COMPUTER SYSTEMS TECHNOLOGY INSTRUCTOR.PLUM P[employer]ER Work Phone: [facility] 03-16-2023 08:40-0400 Body weight 69.85 kg Caitlin Muha COMPUTER SYSTEMS TECHNOLOGY INSTRUCTOR.PL[employer] P[employer]ER Work Phone: [facility] 03-16-2023 08:40-0400 Diastolic blood pressure 74 mm[Hg] Caitlin Muha COMPUTER SYSTEMS TECHNOLOGY INSTRUCTOR.PLUM P[employer]ER Work Phone: [facility] 03-16-2023 08:40-0400 Heart rate 88 /min Caitlin Muha COMPUTER SYSTEMS TECHNOLOGY INSTRUCTOR.PLUM P[employer]ER Work Phone: [facility] 03-16-2023 08:40-0400 SaO2% (BldA) [Mass fraction] 98 % Caitlin Muha COMPUTER SYSTEMS TECHNOLOGY INSTRUCTOR.PLUM P[employer]ER Work Phone: [facility] 03-16-2023 08:40-0400 Systolic blood pressure 120 mm[Hg] Caitlin Linden COMPUTER SYSTEMS TECHNOLOGY INSTRUCTOR.PLUM PACKER Work Phone: [facility] 02-24-2023 12:15-0400 Body height 170.18 cm COMPUTER SYSTEMS TECHNOLOGY INSTRUCTOR Cris Robuck Work Phone: 2(127)003-015575 [place] [address] 02-24-2023 12:15-0400 Body temperature 97.6 [degF] COMPUTER SYSTEMS TECHNOLOGY INSTRUCTOR Cris Robuck Work Phone: 5(960)190-656895 [address] 02-24-2023 12:15-0400 Body weight 66.5 kg COMPUTER SYSTEMS TECHNOLOGY INSTRUCTOR Cris Robuck Work Phone: 6(769)789-581575 [place] [address] 02-24-2023 12:15-0400 Diastolic blood pressure 59 mm[Hg] COMPUTER SYSTEMS TECHNOLOGY INSTRUCTOR Cris Robuck Work Phone: 8(996)788-311175 [place] [address] 02-24-2023 12:15-0400 Heart rate 75 /min COMPUTER SYSTEMS TECHNOLOGY INSTRUCTOR Cris Robuck Work Phone: 1(438)212-773175 [place] [address] 02-24-2023 12:15-0400 Respiratory rate 20 /min COMPUTER SYSTEMS TECHNOLOGY INSTRUCTOR Cris Robuck Work Phone: 1(319)318-166475 [place] [address] 02-24-2023 12:15-0400 SaO2% (BldA) [Mass fraction] 100 % COMPUTER SYSTEMS TECHNOLOGY INSTRUCTOR Cris Robuck Work Phone: 0(602)740-714375 [place] [address] 02-24-2023 12:15-0400 Systolic blood pressure 105 mm[Hg] COMPUTER SYSTEMS TECHNOLOGY INSTRUCTOR Cris Robuck Work Phone: 1(769)548-177475 [place] [address] 02-03-2023 19:12-0400 Diastolic blood pressure 64 mm[Hg] COMPUTER SYSTEMS TECHNOLOGY INSTRUCTOR Cris Robuck Work Phone: 5(899)191-341075 [place] [address] 02-03-2023 19:12-0400 Heart rate 84 /min COMPUTER SYSTEMS TECHNOLOGY INSTRUCTOR Cris Robuck Work Phone: [facility] 02-03-2023 19:12-0400 Respiratory rate 17 /min COMPUTER SYSTEMS TECHNOLOGY INSTRUCTOR Cris Robuck Work Phone: [facility] 02-03-2023 19:12-0400 SaO2% (BldA) [Mass fraction] 98 % COMPUTER SYSTEMS TECHNOLOGY INSTRUCTOR Cris Robuck Work Phone: [facility] 02-03-2023 19:12-0400 Systolic blood pressure 107 mm[Hg] COMPUTER SYSTEMS TECHNOLOGY INSTRUCTOR Cris Robuck Work Phone: [facility] 02-03-2023 11:00-0400 Body height 165.1 cm COMPUTER SYSTEMS TECHNOLOGY INSTRUCTOR Cris Robuck Work Phone: [facility] 02-03-2023 11:00-0400 Body weight 66.2 kg COMPUTER SYSTEMS TECHNOLOGY INSTRUCTOR Cris Robuck Work Phone: [facility] 02-03-2023 10:59-0400 Body temperature 98.2 [degF] COMPUTER SYSTEMS TECHNOLOGY INSTRUCTOR Cris Robuck Work Phone: [facility] 01-26-2023 21:53-0400 Body height 167.64 cm DO Rachael Tupa Work Phone: [facility] 01-26-2023 21:53-0400 Body temperature 97.7 [degF] DO Rachael Tupa Work Phone: [facility] 01-26-2023 21:53-0400 Body weight 67.4 kg DO Rachael Tupa Work Phone: [facility] 01-26-2023 21:53-0400 Diastolic blood pressure 63 mm[Hg] DO Rachael Tupa Work Phone: [facility] 01-26-2023 21:53-0400 Heart rate 87 /min DO Rachael Tupa Work Phone: [facility] 01-26-2023 21:53-0400 Respiratory rate 20 /min DO Rachael Tupa Work Phone: [facility] 01-26-2023 21:53-0400 SaO2% (BldA) [Mass fraction] 97 % DO Rachael Tupa Work Phone: [facility] 01-26-2023 21:53-0400 Systolic blood pressure 116 mm[Hg] DO Rachael Tupa Work Phone: [facility] 01-16-2023 07:21-0400 Body temperature 97.4 [degF] DO Rachael Tupa Work Phone: [facility] 01-16-2023 07:21-0400 Diastolic blood pressure 61 mm[Hg] DO Rachael Tupa Work Phone: [facility] 01-16-2023 07:21-0400 Heart rate 79 /min DO Rachael Tupa Work Phone: [facility] 01-16-2023 07:21-0400 Respiratory rate 16 /min DO Rachael Tupa Work Phone: [facility] 01-16-2023 07:21-0400 SaO2% (BldA) [Mass fraction] 98 % DO Rachael Tupa Work Phone: [facility] 01-16-2023 07:21-0400 Systolic blood pressure 105 mm[Hg] DO Rachael Tupa Work Phone: [facility] 01-13-2023 15:02-0400 Body height 165.1 cm DO Rachael Tupa Work Phone: [facility] 01-12-2023 15:41-0400 Body weight 60.9 kg DO Rachael Tupa Work Phone: [facility] 01-12-2023 11:28-0400 Diastolic blood pressure 72 mm[Hg] DO Rachael Tupa Work Phone: [facility] 01-12-2023 11:28-0400 Heart rate 106 /min DO Rachael Tupa Work Phone: [facility] 01-12-2023 11:28-0400 Respiratory rate 18 /min DO Rachael Tupa Work Phone: [facility] 01-12-2023 11:28-0400 SaO2% (BldA) [Mass fraction] 98 % DO Rachael Tupa Work Phone: [facility] 01-12-2023 11:28-0400 Systolic blood pressure 119 mm[Hg] DO Rachael Tupa Work Phone: [facility] 01-12-2023 07:59-0400 Body height 165.1 cm DO Rachael Tupa Work Phone: [facility] 01-12-2023 07:59-0400 Body weight 60.9 kg DO Rachael Tupa Work Phone: [facility] 01-12-2023 07:58-0400 Body temperature 97.3 [degF] DO Rachael Tupa Work Phone: [facility] 11-20-2022 18:18-0500 Diastolic blood pressure 112 mm[Hg] DO Rachael Tupa Work Phone: [facility] 11-20-2022 18:18-0500 Heart rate 125 /min DO Rachael Tupa Work Phone: [facility] 11-20-2022 18:18-0500 Respiratory rate 17 /min DO Rachael Tupa Work Phone: [facility] 11-20-2022 18:18-0500 SaO2% (BldA) [Mass fraction] 96 % DO Rachael Tupa Work Phone: [facility] 11-20-2022 18:18-0500 Systolic blood pressure 160 mm[Hg] DO Rachael Tupa Work Phone: [facility] 11-20-2022 16:10-0500 Body height 167.64 cm DO Rachael Tupa Work Phone: [facility] 11-20-2022 16:10-0500 Body temperature 98.5 [degF] DO Rachael Tupa Work Phone: [facility] 11-20-2022 16:10-0500 Body weight 69 kg DO Rachael Tupa Work Phone: [facility] 11-20-2022 02:58-0500 Body height 167.64 cm DO Rachael Tupa Work Phone: [facility] 11-20-2022 02:58-0500 Body temperature 98.3 [degF] DO Rachael Tupa Work Phone: [facility] 11-20-2022 02:58-0500 Body weight 69.5 kg DO Rachael Tupa Work Phone: [facility] 11-20-2022 02:58-0500 Diastolic blood pressure 96 mm[Hg] DO Rachael Tupa Work Phone: [facility] 11-20-2022 02:58-0500 Heart rate 96 /min DO Rachael Tupa Work Phone: [facility] 11-20-2022 02:58-0500 Respiratory rate 18 /min DO Rachael Tupa Work Phone: [facility] 11-20-2022 02:58-0500 SaO2% (BldA) [Mass fraction] 98 % DO Rachael Tupa Work Phone: [facility] 11-20-2022 02:58-0500 Systolic blood pressure 169 mm[Hg] DO Rachael Tupa Work Phone: [facility] 11-10-2022 01:55-0500 Diastolic blood pressure 80 mm[Hg] Christian Locke [facility] 11-10-2022 01:55-0500 Heart rate 71 /min Christian Chucky [facility] 11-10-2022 01:55-0500 Mean blood pressure 92 mm[Hg] Christian Chucky [facility] 11-10-2022 01:55-0500 Respiratory rate 14 /min Christian Chucky [facility] 11-10-2022 01:55-0500 SaO2% (BldA) [Mass fraction] 96 % Christian Chucky [facility] 11-10-2022 01:55-0500 Systolic blood pressure 116 mm[Hg] Christian Chucky [facility] 11-10-2022 01:08-0500 Heart rate 72 /min Christian Chucky [facility] 11-10-2022 01:08-0500 SaO2% (BldA) [Mass fraction] 94 % Christian Chucky [facility] 11-09-2022 21:52-0500 Diastolic blood pressure 95 mm[Hg] Christian Chucky [facility] 11-09-2022 21:52-0500 Heart rate 96 /min Christian Chucky [facility] 11-09-2022 21:52-0500 Respiratory rate 18 /min Christian Chucky [facility] 11-09-2022 21:52-0500 SaO2% (BldA) [Mass fraction] 99 % Christian Chucky [facility] 11-09-2022 21:52-0500 Systolic blood pressure 122 mm[Hg] Christian Chucky [facility] 11-09-2022 20:52-0500 Body temperature 98.78 [degF] Christian Chucky [facility] 11-09-2022 20:52-0500 Diastolic blood pressure 87 mm[Hg] Christian Chucky [facility] 11-09-2022 20:52-0500 Respiratory rate 18 /min Christian Chucky [facility] 11-09-2022 20:52-0500 Systolic blood pressure 145 mm[Hg] Christian Chucky [facility] 11-06-2022 14:38-0500 Blood Pressure Location Cris ROBUCK [facility] 11-06-2022 14:38-0500 Diastolic blood pressure 88 mm[Hg] Cris ROBUCK [facility] 11-06-2022 14:38-0500 Heart rate 96 /min Cris ROBUCK [facility] 11-06-2022 14:38-0500 SaO2% (BldA) [Mass fraction] 96 % Cris ROBUCK [facility] 11-06-2022 14:38-0500 Systolic blood pressure 132 mm[Hg] Cris ROBUCK [facility] 10-10-2022 12:46-0500 Blood Pressure Location Cris ROBUCK [facility] 10-10-2022 12:46-0500 Body temperature 98.06 [degF] Cris ROBUCK [facility] 10-10-2022 12:46-0500 Diastolic blood pressure 78 mm[Hg] Cris ROBUCK [facility] 10-10-2022 12:46-0500 Heart rate 89 /min Cris ROBUCK [facility] 10-10-2022 12:46-0500 SaO2% (BldA) [Mass fraction] 98 % Cris ROBUCK [facility] 10-10-2022 12:46-0500 Systolic blood pressure 130 mm[Hg] Cris ROBUCK [facility] 10-02-2022 14:08-0500 Blood Pressure Location NANCY SIDELL [facility] 10-02-2022 14:08-0500 Body temperature 98.24 [degF] NANCY SIDELL [facility] 10-02-2022 14:08-0500 Diastolic blood pressure 78 mm[Hg] NANCY SIDELL [facility] 10-02-2022 14:08-0500 Heart rate 93 /min NANCY SIDELL [facility] 10-02-2022 14:08-0500 SaO2% (BldA) [Mass fraction] 98 % NANCY SIDELL [facility] 10-02-2022 14:08-0500 Systolic blood pressure 136 mm[Hg] NANCY SIDELL [facility] 08-08-2022 23:00-0400 Body height 167.64 cm DO Rachael Tupa Work Phone: [facility] 08-08-2022 23:00-0400 Body temperature 98.1 [degF] DO Rachael Tupa Work Phone: [facility] 08-08-2022 23:00-0400 Body weight 68.55 kg DO Rachael Tupa Work Phone: [facility] 08-08-2022 23:00-0400 Diastolic blood pressure 71 mm[Hg] DO Rachael Tupa Work Phone: [facility] 08-08-2022 23:00-0400 Heart rate 87 /min DO Rachael Reyes Work Phone: [facility] 08-08-2022 23:00-0400 Respiratory rate 20 /min DO Rachael Reyes Work Phone: [facility] 08-08-2022 23:00-0400 SaO2% (BldA) [Mass fraction] 95 % DO Rachael Reyes Work Phone: [facility] 08-08-2022 23:00-0400 Systolic blood pressure 118 mm[Hg] DO Rachael Reyes Work Phone: [facility] 04-25-2022 00:00-0400 Blood Pressure Location Luis Armando Gastelume [facility] 04-25-2022 00:00-0400 Diastolic blood pressure 58 mm[Hg] Luis Armando Gastelume [facility] 04-25-2022 00:00-0400 Heart rate 82 /min Luis Armando Gastelume [facility] 04-25-2022 00:00-0400 Mean blood pressure 71 mm[Hg] Luis Armando Gastelume [facility] 04-25-2022 00:00-0400 SaO2% (BldA) [Mass fraction] 98 % Luis Armando Gastelume [facility] 04-25-2022 00:00-0400 Systolic blood pressure 97 mm[Hg] Luis Armando Osei [facility] 04-24-2022 18:53-0400 Diastolic blood pressure 87 mm[Hg] Luis Armando Osei [facility] 04-24-2022 18:53-0400 Heart rate 99 /min Luis Armando Gastelume [facility] 04-24-2022 18:53-0400 Mean blood pressure 102 mm[Hg] Luis Armando Franz [facility] 04-24-2022 18:53-0400 Respiratory rate 18 /min Luis Armando Franz [facility] 04-24-2022 18:53-0400 SaO2% (BldA) [Mass fraction] 96 % Luis Armando Franz [facility] 04-24-2022 18:53-0400 Systolic blood pressure 132 mm[Hg] Luis Armando Franz [facility] 04-24-2022 13:05-0400 Body temperature 98.78 [degF] Luis Armando Franz [facility] 04-24-2022 13:05-0400 Diastolic blood pressure 97 mm[Hg] Luis Armando Franz [facility] 04-24-2022 13:05-0400 Heart rate 118 /min Luis Armando Franz [facility] 04-24-2022 13:05-0400 SaO2% (BldA) [Mass fraction] 96 % Luis Armando Franz [facility] 04-24-2022 13:05-0400 Systolic blood pressure 163 mm[Hg] Luis Armando Franz [facility] 07-31-2020 07:48-0400 Body Temperature 98.01 [degF] [employer] [employer] [employer] [facility] 07-31-2020 07:48-0400 BP Diastolic 67 mm[Hg] [employer] [place] , [place] 07-31-2020 07:48-0400 BP Systolic 108 mm[Hg] [facility] [place] , [place] 07-31-2020 07:48-0400 Pulse (Heart Rate) 82 /min [facility] [place] 07-31-2020 07:48-0400 Respiratory Rate 14 /min [facility] 07-29-2020 08:04-0400 Pulse Oximetry 100 % [facility] , [place] 07-18-2020 02:42-0400 BMI (Body Mass Index) 24.96 kg/m2 [facility], [place] 07-18-2020 02:42-0400 Body weight 68.04 kg [facility] , [place] 07-18-2020 02:42-0400 Height 165.1 cm [facility] , [place] Encounters Encounter Date Encounter Type Care Provider Facility Start: 10-27-2023 ambulatory Cris PENA Facility :[facility] Start: 10-09-2023 End: 10-21-2023 Evaluation and management of inpatient Bobo Cornelius Facility:[facility] Start: 10-09-2023 End: 10-21-2023 Evaluation and management of inpatient [facility] Work Phone: Start: 10-02-2023 End: 10-02-2023 Emergency department patient visit Cris Pena Facility:[facility] Start: 10-02-2023 End: 10-02-2023 Emergency department patient visit [facility] Work Phone: Start: 09-14-2023 End: 09-15-2023 Emergency department patient visit Cris Pena Facility:[facility] Start: 09-14-2023 End: 09-14-2023 Emergency department patient visit COMPUTER SYSTEMS TECHNOLOGY INSTRUCTOR Cris Pena Work Phone: [facility] Work Phone: Start: 09-10-2023 End: 09-10-2023 Emergency department patient visit Derrell Orantes Facility:[facility] Start: 09-10-2023 ambulatory Claudio Castaneda acility:[facility] Start: 09-09-2023 End: 09-09-2023 Emergency department patient visit Cris Pena Facility:[facility] Start: 09-09-2023 End: 09-09-2023 Emergency department patient visit [facility] Work Phone: Start: 08-27-2023 ambulatory Akbar Koch MD Work Phone: Spine Medicine Comment on above: Refill Request; Refi ll Request Start: 08-27-2023 E-mail encounter sean m caregiver Akbar Koch MD Work Phone: [facility] Start: 08-27-2023 Telephone encounter Akbar bassett MD Work Phone: Spine Medicine Comment on above: Appointment Start: 08-19-2023 ambulatory Cris PENA Facility :[facility] Start: 08-15-2023 End: 08-15-2023 Emergency department patient visit [facility] Facility:[facility] Start: 08-14-2023 End: 08-14-2023 Emergency department patient visit [facility] Facility:[facility] Start: 08-13-2023 End: 08-13-2023 Emergency department patient visit Derrell Orantes Facility:[facility] Start: 08-07-2023 End: 08-07-2023 Emergency department patient visit DO Norma Dietz Facility:[facility] Start: 08-04-2023 ambulatory Cris PENA Facility :[facility] Start: 07-17-2023 Refill Akbar Koch MD Work Phone: Pain Management Comment on above: Refill Request Start: 07-07-2023 Telephone encounter Lara Salinas RN [facility] Start: 07-07-2023 End: 07-08-2023 ambulatory Jacqueline Marquez Facility:[facility] Start: 07-03-2023 End: 07-13-2023 Evaluation and management of inpatient Bobo Cornelius Facility:[facility] Start: 07-02-2023 End: 07-13-2023 Evaluation and management of inpatient [facility] Work Phone: Start: 07-02-2023 Registered Recurring RUIZ Pena Work Phone: [facility] Start: 07-01-2023 End: 07-02-2023 ambulatory Zharaa Connors Facility:[facility] Start: 06-17-2023 Telephone encounter Akbar bassett MD Work Phone: Pain Management Comment on above: Medication Problem Start: 06-09-2023 Refill Chuck Galindo MD Work Phone: Internal Medicine [place] Comment on above: Refill Request Start: 06-08-2023 End: 06-08-2023 Emergency department patient visit Luis Armando Hendrix Facility:[facility] Start: 06-08-2023 End: 06-08-2023 Emergency department patient visit [facility] Work Phone: Start: 06-06-2023 End: 06-06-2023 Emergency department patient visit [facility] Start: 05-22-2023 Refill Caitlin Cheatham APRN.PLUM PACKER Work Phone: Family Medicine [place] Comment on above: Refill Request Start: 05-14-2023 Telephone encounter Rosa (Glost Tile Shader) Madeline russo LPN Family Medicine [place] Comment on above: Patient Update Start: 05-14-2023 End: 05-14-2023 ambulatory CAITLIN MUHA Facility:[facility] Start: 04-24-2023 Telephone encounter Caitlin Cheatham APRN.PLUM PACKER Work Phone: Family Medicine [place] Comment on above: Medication Request Start: 04-22-2023 Telephone encounter Fernanda ENCARNACION Work Phone: Psychology Comment on above: BH consult Start: 04-19-2023 End: 04-19-2023 Emergency department patient visit Eriberto Sheppard Facility:[facility] Start: 04-19-2023 End: 04-19-2023 Emergency department patient visit COMPUTER SYSTEMS TECHNOLOGY INSTRUCTOR Cris Pena Work Phone: [facility] Work Phone: Start: 04-18-2023 End: 04-19-2023 Emergency department patient visit NON STAFF Facility:[facility] Start: 04-18-2023 End: 04-18-2023 Emergency department patient visit COMPUTER SYSTEMS TECHNOLOGY INSTRUCTOR Cris Pena Work Phone: [facility] Work Phone: Start: 04-16-2023 End: 04-16-2023 Nurse Triage Verónica Martínez RN NURSE LEAD JANITOR Comment on above: Refill Request Thank you Attention deficit hy peractivity disorder (ADHD), unspecified ADHD type (Primary Dx); Paranoid schizophrenia (HCC); Bipolar depression (HCC); History of heroin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 during her hospital course. She did not have any conflict with peers or staff. She had some behavioral issues and tried to manipulate staff and did exhibit some splitting. On the day of discharge she stated that she wasdepressed due to the loss of her mother. She again threatened to hurt herself but again was talking about how she had no place to go but then would state thatshe was able to go to her boyfriend's place in a few days that she was able to stay a few days longer. Patient seems to be exhibiting some manipulative behavior for further hospitalization. She did not meet requirement for continued hospitalization given her behavior on the unit. She only reported that she had thoughts of hurting herself when it was time for discharge. Outside of that she socialized with peers appropriately she often was in the common area socializing and laughing with peers. Outside of assessment she seemed to be in good spirits and did not appear to be depressed or suicidal. Time spent discussing smoking cessation with patient: 3 to 10 minutes Condition Condition at Discharge: Stable Status at Discharge Cognitive/behavioral status at discharge: Mental Status Exam: Appearance: grossly normal Mental Status: mental status grossly normal Mood: Depressed mood Affect: Normal affect Speech and Movement: speech and movement normal and speech clear Attitude: cooperative Thought Process: normal Thought Content: Denied hallucinations, no homicidality and reported vague suicidality but has been denying suicidal thoughts for the past few days Insight: Good Judgment: Good Functional status at discharge: independent ambulation Overall status at discharge: patient is back to baseline Time Spent with Patient Time spent providing/coordinating discharge services (# min): 30 Exam Physical Exam Vital Signs: Temp Pulse Resp BP Pulse Ox O2 Del Method 97.4 F L 81 16 102/67 99 Room Air 10/21/23 07:30 10/21/23 07:30 10/20/23 21:59 10/21/23 07:30 10/21/23 07:30 10/21/23 07:30 Discharge Plan Discharge Plan Patient Disposition: Home Activity: No Activity Restriction Diet: Regular Additional Instructions: Regular diet No activity restrictions Instructions: Bipolar Disorder (DC), [facility] DC Instructions Prescriptions: New ergocalciferol (vitamin D2) 1,250 mcg (50,000 unit) Capsule 1,250 mcg PO Q7D 15 Days Qty: 3 0RF quetiapine 200 mg Tablet 200 mg PO HS 15 Days Qty: 15 1RF atomoxetine 25 mg Capsule 25 mg PO DAILY PRN (Reason: ADHD symptoms) 15 Days Qty: 15 1RF duloxetine 30 mg Capsule,Delayed Release(Dr/Ec) 30 mg PO DAILY 15 Days Qty: 15 1RF duloxetine 60 mg Capsule,Delayed Release(Dr/Ec) 60 mg PO QHS 15 Days Qty: 15 1RF oxcarbazepine 300 mg Tablet 300 mg PO BID 15 Days Qty: 30 1RF nicotine 21 mg/24 hr Patch 24 Hour 1 ea transdermal DAILY Qty: 15 0RF Continued doxycycline hyclate 100 mg capsule 100 mg PO BID cephalexin 500 mg capsule 500 mg PO QID pregabalin 100 mg capsule 100 mg PO DAILY methadone 10 mg/mL Syringe 140 mg PO DAILY Discontinued clonazepam 0.5 mg tablet 0.5 mg PO BID Patient Comments: TAKE ONE TABLET BY MOUTH TWICE A DAY -START ON 925504 dextroamphetamine-amphetamine 20 mg tablet 20 mg PO DAILY Patient Comments: TAKE ONE TABLET BY MOUTH TWICE A DAY -START ON quetiapine 150 mg tablet 150 mg PO HS Patient Comments: TAKE ONE TABLET BY MOUTH ONCE DAILY AT BEDTIME Follow Up: [facility] [place] [Other] (Follow facility protocol for mental health needs. ) Cris Pena APRN, DRILL PRESS OPERATOR FOR [employer] [Primary Care Provider] - (Contact your PCP with any medical needs. ) Documented By: Bobo Shields MD 10/21/23 114 Signed By: <Electronically signed by Bobo Shields MD> 10/21/23 1148 [facility] Work Phone: 1(845) 165-692401-09-2024 Progress note Author Bobo Shields [facility] October 20, 2023 1:54pm Note Date/Time October 20, 2023 1: 54pm [facility] [address] [place] [address] Psychiatry Progress Note Signed Patient: Lorna Deutsch MR#: [id number] : 1985 Acct:[id number] Age/Sex: 38 / F Adm Date: 3 Loc: Room: [address] [place] [address] Type : ADM IN Attending Dr: Bobo Shields MD Copies to: ~ Date of Service: 10/20/2023 Subjective Subjective Narrative: Ms. Deutsch reported that she is doing okay. She still reported some depression due to the loss of her mother. We discussed about doing some outpatient therapyfor this. Mental Status Exam: Appearance: grossly normal Mental Status: mental status grossly normal Mood: dysthymic mood Affect: Improving affect Speech and Movement: speech and movement normal and speech clear Attitude: cooperative Thought Process: normal Thought Content:Denied auditory hallucinations, no homicidality, passive suicidality Insight: fair Judgment: fair Exam Physical Exam Vital Signs: Temp Pulse Resp BP Pulse Ox O2 Del Method 98.3 F 67 18 108/75 98 Room Air 10/20/23 07:30 10/20/23 07:30 10/20/23 07:30 10/20/23 07:30 10/20/23 07:30 10/20/23 07:30 Abnormal Involuntary Movement Dental Status Are dentures usually worn?: No Assessment/Plan Assessment/Plan (1) Unspecified psychosis: (2) Bipolar 1 disorder, depressed: Plan Patient objectively doing better. Anticipate discharge tomorrow with therapy outpatient Continue Seroquel 200 mg at bedtime and Cymbalta to 30 mg in the morning and 60 mg at bedtime, continue Trileptal 300 mg twice a day Can use Strattera [address] of Adderall Plan to discontinue Adderall and Klonopin given patient's misuse of medicine OARRS reviewed and multiple prescribers for short-term benzos likely from ER Continue to monitor mental status Encourage group participation and medication compliance Risk benefits alternatives explained Documented By: Bobo Shields MD 10/20/23 2784 Signed By: <Electronically signed by Bobo Shields MD> 10/20/23 4033 [facility] Work Phone: 1(274) 745-817401-08-2024 Consult note Author Virgilio Lynne [facility] October 19, 2023 3:20pm Note Date/Time October 15, 2023 5: 06pm [facility] [address] [place] [address] Hospitalist Consult Note Signed Patient: Lorna Deutsch MR#: [id number] : 1985 Acct:[id number] Age/Sex: 38 / F Adm Date: 3 Loc: Room: [address] [place] [address] Type: ADM IN Attending Dr: Bobo Shields MD Copies to: MD Virgilio Murcia MD Haley Robuck APRN, JULIAN Abdi APRN~ HPI DATE OF CONSULTATION: 10/15/23 REQUESTING PROVIDER: Bobo Shields Consult Narrative Reason for Consult: Green sputum HPI: This is a 8-year-old female past medical history significant for tobacco use, injectable substance abuse, depression. She presented to the emergency department October 08 with depression and suicidal ideation. Hospitalist is now consulted for report of green sputum. Patient also had abscess on her left posterior proximal forearm secondary to injecting a couple days prior and was initiated on Keflex and doxycycline per ER physician. Wound care has been ongoing. Patient indicates wound is slowly getting better however she is noted to be fidgeting with the site, staff is following wound instructions and packingaccordingly. Today the patient reported green sputum but no significant cough. Denies any nasal congestion headache or fevers. Denies sore throat. She is a smoker and has been using nicotine patch while she is here. The sputum is witnessed by this provider and noted dark brown in color on the paper towel thatshe shows it to this provider. She has no notable cough while I am in the room. She also expresses possibility of urinary tract infection reporting frequency but denying any dysuria. She denies any vaginal discharge or pruritus despite being on antibiotics recently. She indicates she is planning on going to rehab and has intent on sobriety. 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 USED FENTANYL X1 Pre-diabetes Surgical History No pertinent past surgical history Family History Grandparent DM2 (diabetes mellitus, type 2) Social History Smoking Status: Current every day smoker Tobacco Type: cigarettes Substance Use Type: Amphetamines Substance Abuse Comment: methadone LD 2 days ago Meds Medications and Allergies Allergies No Known Allergies Allergy (Verified 10/08/23 20:57) Home Medications cephalexin 500 mg capsule 500 mg PO QID 10/09/23 [History Confirmed 10/09/23] doxycycline hyclate 100 mg capsule 100 mg PO BID 10/09/23 [History Confirmed 10/09/23] methadone 10 mg/mL oral syringe (FOR ORAL USE ONLY) 140 mg PO DAILY 10/09/23 [History Confirmed 10/09/23] pregabalin 100 mg capsule 100 mg PO DAILY 10/09/23 [History Confirmed 10/09/23] quetiapine 150 mg tablet 150 mg PO HS 10/09/23 [History Confirmed 10/09/23] duloxetine 30 mg capsule,delayed release 30 mg PO BID 15 days #30 caps 10/15/23 [Rx] ergocalciferol (vitamin D2) 1,250 mcg (50,000 unit) capsule 1,250 mcg PO Q7D 15 days #3 caps 10/15/23 [Rx] oxcarbazepine 150 mg tablet 150 mg PO BID 15 days #30 tabs 10/15/23 [Rx] Active Medications: Active Medications Generic Name Dose Route Start Last Admin Trade Name Freq PRN Reason Stop Dose Admin Acetaminophen 500 mg 10/09/23 01:59 10/15/23 08:33 Acetaminophen 500 Mg Tablet PO 10/08/24 01:58 500 mg Q6H PRN Administration Fever or Pain Al Hydrox/Mg Hydrox/Simethicone 30 ml 10/09/23 01:59 Mag Hydrox/Al Hydrox/Simeth 30 Ml Udc PO 10/08/24 01:58 Q6H PRN Indigestion Atomoxetine HCl 25 mg 10/09/23 12:38 10/14/23 20:16 Atomoxetine 25 Mg Capsule PO 10/09/24 08:59 25 mg DAILY PRN Administration ADHD symptoms Benztropine Mesylate 1 mg 10/09/23 01:59 Benztropine 2 Mg/2 Ml Ampul IM 10/08/24 01:58 Q6H PRN Dystonia Benztropine Mesylate 1 mg 10/09/23 01:59 10/15/23 14:39 Benztropine 1 Mg Tablet PO 10/08/24 01:58 1 mg Q6H PRN Administration Dystonia Cephalexin HCl 500 mg 10/09/23 09:00 10/15/23 14:38 Cephalexin 500 Mg Capsule PO 10/19/23 08:59 500 mg QID ANUPAMA Administration Doxycycline Hyclate 100 mg 10/09/23 09:30 10/15/23 08:30 Doxycycline Hyclate 100 Mg Tablet PO 10/19/23 09:29 100 mg BID ANUPAMA Administration Duloxetine HCl 30 mg 10/10/23 14:00 10/15/23 08:30 Duloxetine 30 Mg Capsule.Dr PO 10/09/24 13:59 30 mg BID ANUPAMA Administration Ergocalciferol 1,250 mcg 10/12/23 09:00 10/12/23 09:06 Ergocalciferol 1,250 Mcg (50,000 Units) Capsule PO 10/11/24 08:59 1,250 mcg Q7D ANUPAMA Administration Guaifenesin 1,200 mg 10/15/23 17:00 Guaifenesin 600 Mg Tab.Er.12h PO 10/22/23 20:59 BID PRN Cough Hydroxyzine Pamoate 50 mg 10/09/23 01:59 10/14/23 21:45 Hydroxyzine Pamoate 50 Mg Capsule PO 10/08/24 01:58 50 mg Q6H PRN Administration Anxiety Ibuprofen 400 mg 10/09/23 01:59 10/14/23 07:31 Ibuprofen 400 Mg Tablet PO 10/08/24 01:58 400 mg Q6H PRN Administration Pain Magnesium Hydroxide 30 ml 10/09/23 01:59 10/13/23 21:28 Magnesium Hydroxide Susp 30 Ml Udc PO 10/08/24 01:58 30 ml Q6H PRN Administration Constipation Methadone HCl 140 mg 10/09/23 10:00 10/15/23 08:30 Methadone 10 Mg/Ml Oral Concentrate PO 10/08/24 09:59 140 mg DAILY ANUPAMA Administration Nicotine 1 each 10/09/23 09:30 10/15/23 08:32 Nicotine Patch 21 Mg/24hr 1 Each Patch.Td24 TRANSDERML 11/19/23 09:01 1 each DAILY ANUPAMA Administration Olanzapine 5 mg 10/09/23 01:59 Olanzapine 10 Mg Vial *Nf* IM 10/08/24 01:58 Q6H PRN Agitation Olanzapine 5 mg 10/09/23 01:59 10/15/23 14:43 Olanzapine 5 Mg Tablet PO 10/08/24 01:58 5 mg Q6H PRN Administration Agitation Oxcarbazepine 150 mg 10/13/23 09:00 10/15/23 08:32 Oxcarbazepine 150 Mg Tablet PO 10/12/24 08:59 150 mg BID ANUPAMA Administration Pregabalin 100 mg 10/09/23 14:00 10/15/23 14:38 Pregabalin 100 Mg Capsule PO 04/06/24 13:59 100 mg TID ANUPAMA Administration Quetiapine Fumarate 150 mg 10/09/23 22:00 10/14/23 21:48 Quetiapine Fumarate 50 Mg Tablet PO 10/08/24 21:59 150 mg HS ANUPAMA Administration Sodium Chloride 0 ml 12/28/23 20:56 Sodium Chloride 0.9 % 10 Ml Syringe IV-PUSH 10/07/24 20:55 PRN PRN Flush Sterile Water 2.1 ml 10/09/23 01:59 Water For Injection,Sterile 10 Ml Vial INJECTION 10/08/24 01:58 PRN PRN To dilute OLANZapine (ZyPREXA) Trazodone HCl 50 mg 10/09/23 01:59 10/14/23 21:47 Trazodone 50 Mg Tablet PO 10/08/24 01:58 50 mg QHS PRN Administration Insomnia Exam Physical Exam Vital Signs: Temp Pulse Resp BP Pulse Ox O2 Del Method 97.8 F 79 18 118/73 96 Room Air 10/15/23 15:25 10/15/23 15:25 10/15/23 15:25 10/15/23 15:25 10/15/23 15:25 10/15/23 15:25 Narrative: CONST- alert, ambulatory in unit, no acute distress HEAD- normocephalic and atraumatic EENT- sclera nonicteric and conjunctiva nonerythemic, moist oral mucosa, pharynx clear NECK- supple, no cervical lymphadenopathy CARDIAC- RRR no abnormal heart tones PULM- diminished without wheeze or rhonchi, RA, no accessory muscle use or cough noted. Sputum noted to be brown on exam displayed by the patient ABD- S/NT, NABS EXTREM- no edema BLE, calves nontender SKIN- W/D, good turgor, left proximal posterior forearm dressing in place MS- MAEx4 spontaneously with equal strength NEURO- A&Ox3, speech clear and tongue midline, equal facial symmetry PSYCH-mood and behavior appropriate Assessment & Plan Assessment/Plan (1) Sputum production: (2) Tobacco abuse: (3) Abscess of skin or subcutaneous tissue: Plan Brown sputum Tobacco abuse -Chest x-ray nonacute -No other respiratory symptoms -Will send for sputum culture, note patient has been on doxycycline and Keflex for wound Left proximal posterior forearm abscess/wound 2/2 injection -10-day course doxycycline and Keflex, wound care Depression Polysubstance abuse -Further POC per inpatient psychiatric team for psychoactive medication management/adjustment and psychotherapy, as well as substance abuse counseling Documented By: Darlin Abdi APRN 02/02 5593 Signed By: <Electronically signed by RUIZ Abdi> 10/15/23 1803 <Electronically signed by Virgilio Lynne MD> 10/19/23 1520 [facility] Work Phone: 1(776) 314-857801-08-2024 Progress note Author Bobo Shields [facility] October 19, 2023 12:37pm Note Date/Time October 19, 2023 12 :36pm [facility] [address] [place] [address] Psychiatry Progress Note Signed Patient: Lorna Deutsch MR#: [id number] : 1985 Acct:[id number] Age/Sex: 38 / F Adm Date: 3 Loc: Room: [address] [place] [address] Type : ADM IN Attending Dr: Bobo Shields MD Copies to: ~ Date of Service: 10/19/2023 Subjective Subjective Narrative: Ms. Deutsch reported that she is doing okay. She feels like her anxiety is stillhigh and still reported depression. She reported that she has suicidal thoughtsof wishing to go to bed and not wake up. She stated that her appetite has been okay and sleep has been okay. She stated that she still having issues dealing with the of her mom. Mental Status Exam: Appearance: grossly normal Mental Status: mental status grossly normal Mood: dysthymic mood Affect: dysphoric affect Speech and Movement: speech and movement normal and speech clear Attitude: cooperative Thought Process: normal Thought Content:Denied auditory hallucinations, no homicidality, passive suicidality Insight: fair Judgment: fair Exam Physical Exam Vital Signs: Temp Pulse Resp BP Pulse Ox O2 Del Method 98.2 F 78 18 111/70 99 Room Air 10/19/23 07:30 10/19/23 07:30 10/19/23 07:30 10/19/23 07:30 10/19/23 07:30 10/19/23 07:30 Abnormal Involuntary Movement Dental Status Are dentures usually worn?: No Assessment/Plan Assessment/Plan (1) Unspecified psychosis: (2) Bipolar 1 disorder, depressed: Plan Patient reported depression and passive suicidal thoughts Increase Seroquel 200 mg at bedtime and Cymbalta to 30 mg in the morning and 60 mg at bedtime, continue Trileptal 300 mg twice a day Can use Strattera [address] of Adderall Plan to discontinue Adderall and Klonopin given patient's misuse of medicine OARRS reviewed and multiple prescribers for short-term benzos likely from ER Continue to monitor mental status Encourage group participation and medication compliance Risk benefits alternatives explained Documented By: Bobo Shields MD 10/19/23 1235 Signed By: <Electronically signed by Bobo Shields MD> 10/19/23 1237 [facility] Work Phone: 1(146) 655-736201-07-2024 Progress note Author Claudio case [facility] October 18, 2023 7:13am Note Date/Time October 18, 2023 7: 11am [facility] [address] [place] [address] Psychiatry Progress Note Signed Patient: Lorna Deutsch MR#: [id number] : 1985 Acct:[id number] Age/Sex: 38 / F Adm Date: 3 Loc: Room: [address] [place] [address] Type : ADM IN Attending Dr: Bobo Shields MD Copies to: ~ Date of Service: 10/18/2023 Subjective Subjective Narrative: Ms. Deutsch reported that she is depressed and said she wants to increase Trileptal for mood stabilization. She inquired about Depakote and we discussed that it may cause weight gain. She inquired about having Adderall and we discussed risks of having it with the Methadone. Mental Status Exam: Appearance: grossly normal Mental Status: mental status grossly normal Mood: dysthymic mood Affect: dysphoric affect Speech and Movement: speech and movement normal and speech clear Attitude: cooperative Thought Process: normal Thought Content:Denied auditory hallucinations, no homicidality, denied suicidalplans or intent but reports feeling hoepeless. Insight: fair Judgment: fair Exam Physical Exam Vital Signs: Temp Pulse Resp BP Pulse Ox O2 Del Method 98.2 F 73 18 124/79 97 Room Air 10/17/23 19:45 10/17/23 19:45 10/17/23 19:45 10/17/23 19:45 10/17/23 19:45 10/17/23 19:45 Abnormal Involuntary Movement Dental Status Are dentures usually worn?: No Assessment/Plan Assessment/Plan (1) Unspecified psychosis: (2) Bipolar 1 disorder, depressed: Plan: Continue current treatment. Avoid narcotic meds. Increase Trileptal 300 mg PO BID. Discussed risks of benzodiazepine which include potential for misuse, pharmacologic tolerance, cognitive dulling, and possible hastening of subsequentaffective episodes Recommend rehab treatment and patient reports that she is starting to make some phone calls. Monitor suicidal behaviors for safety of self (15-minute face check). Staff described the patient as med seeking Typical short- and long-term side effects of the proposed medication regimen, including contraindications and clinically significant interactions, were discussed with the patient. Side effects include but not limited to sedation, overdose, hypo or hypertension, rash, movement disorders (TD, EPS), weight gain, and appetite changes and advised the patient not to drive or drink while taking these meds. Patient should reach out to medical provider if any of these side effects occur. We also discussed risk of overdose with this current med regimen. Patient understands that it is impossible to guarantee an outcome withmedications. Patient indicates an understanding that benefits outweigh the risks. Targeted symptoms and signs, possible therapeutic benefit, side effect and riskswere discussed. No abnormal movements noted on exam. AIMS is Zero. Involve friends/family members if applicable to coordinate care and ensure appropriate outpatient appointments are scheduled prior to discharge. I have reviewed evaluations by other providers (ER notes, nurses and staff) Prognosis: Factors to be considered are the chronicity and severity of the symptoms and signs, associated comorbidity, and differential diagnosis-motivation to get in treatment, response to treatment, adherence to treatment recommendations, and using skills. The patient's verbal consent was provided. Plan Patient reported still feeling depressed, but suicidal thoughts have been improving Continue Seroquel 150 mg at bedtime Can use Strattera [address] of Adderall Plan to discontinue Adderall and Klonopin given patient's misuse of medicine OARRS reviewed and multiple prescribers for short-term benzos likely from ER Continue to monitor mental status Encourage group participation and medication compliance Risk benefits alternatives explained Documented By: Claudio Dee MD [id number] Signed By: <Electronically signed by Claudio Dee MD> 10/18/23 0793 [facility] Work Phone: 1(420) 127-206801-05-2024 Progress note Author Claudio case [facility] October 16, 2023 7:43am Note Date/Time October 16, 2023 7: 43am [facility] [address] [place], [place] [id number] Psychiatry Progress Note Signed Patient: Lorna Deutsch MR#: [id number] : 1985 Acct:[id number] Age/Sex: 38 / F Adm Date: 3 Loc: Room: [address] [place] [address] Type : ADM IN Attending Dr: Bobo Shields MD Copies to: ~ Date of Service: 10/16/2023 Subjective Subjective Narrative: Ms. Deutsch reported that she is depressed and wants to speak to a counselor. Sheclaims that she is going through Klonopin withdrawal. No objective signs. She continues to endorse SI. She was accepted to [facility] but does not wantto go now. Mental Status Exam: Appearance: grossly normal Mental Status: mental status grossly normal Mood: dysthymic mood Affect: dysphoric affect Speech and Movement: speech and movement normal and speech clear Attitude: cooperative Thought Process: normal Thought Content:Denied auditory hallucinations, no homicidality, denied suicidalplans or intent but makes statements that she will kill herself when she does not get what she wants. Insight: fair Judgment: fair Exam Physical Exam Vital Signs: Temp Pulse Resp BP Pulse Ox O2 Del Method 98.2 F 73 16 107/65 97 Room Air 10/15/23 20:17 10/15/23 20:17 10/15/23 20:17 10/15/23 20:17 10/15/23 20:17 10/15/23 20:17 Abnormal Involuntary Movement Dental Status Are dentures usually worn?: No Assessment/Plan Assessment/Plan (1) Unspecified psychosis: (2) Bipolar 1 disorder, depressed: Plan: Continue current treatment. Avoid narcotic meds. Discussed risks of benzodiazepine which include potential for misuse, pharmacologic tolerance, cognitive dulling, and possible hastening of subsequentaffective episodes Recommend rehab treatment and patient reports that she is starting to make some phone calls. Monitor suicidal behaviors for safety of self (15-minute face check). Staff described the patient as med seeking Typical short- and long-term side effects of the proposed medication regimen, including contraindications and clinically significant interactions, were discussed with the patient. Side effects include but not limited to sedation, overdose, hypo or hypertension, rash, movement disorders (TD, EPS), weight gain, and appetite changes and advised the patient not to drive or drink while taking these meds. Patient should reach out to medical provider if any of these side effects occur. We also discussed risk of overdose with this current med regimen. Patient understands that it is impossible to guarantee an outcome withmedications. Patient indicates an understanding that benefits outweigh the risks. Targeted symptoms and signs, possible therapeutic benefit, side effect and riskswere discussed. No abnormal movements noted on exam. AIMS is Zero. Involve friends/family members if applicable to coordinate care and ensure appropriate outpatient appointments are scheduled prior to discharge. I have reviewed evaluations by other providers (ER notes, nurses and staff) Prognosis: Factors to be considered are the chronicity and severity of the symptoms and signs, associated comorbidity, and differential diagnosis-motivation to get in treatment, response to treatment, adherence to treatment recommendations, and using skills. The patient's verbal consent was provided. Plan Patient reported still feeling depressed, but suicidal thoughts have been improving Continue Seroquel 150 mg at bedtime Can use Strattera [address] of Adderall Plan to discontinue Adderall and Klonopin given patient's misuse of medicine OARRS reviewed and multiple prescribers for short-term benzos likely from ER Continue to monitor mental status Encourage group participation and medication compliance Risk benefits alternatives explained Documented By: Claudio Dee MD [id number] Signed By: <Electronically signed by Claudio Dee MD> 10/16/23 0743 [facility] Work Phone: 1([phone]) 113-567901-04-2024 Progress note Author Claudio case [facility] October 15, 2023 9:39am Note Date/Time October 15, 2023 9: 39am [facility] [address] [place] [address] Psychiatry Progress Note Signed Patient: Lorna Deutsch MR#: [id number] : 1985 Acct:[id number] Age/Sex: 38 / F Adm Date: 3 Loc: 1S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 06/10/2023) [facility] of Past illness Narrative* Problem Noted Date Diagnosed Date Resolved Date ADHD 03/16/2023 03/16/2023 documented as of this encounter (statuses as of 06/18/2023) [facility] of Past illness Narrative* Problem Noted Date Diagnosed Date Resolved Date ADHD 03/16/2023 03/16/2023 documented as of this encounter (statuses as of 07/02/2023) [facility] of Past illness Narrative* Problem Noted Date Diagnosed Date Resolved Date ADHD 03/16/2023 03/16/2023 documented as of this encounter (statuses as of 07/08/2023) [facility] of Past illness Narrative* Problem Noted Date Diagnosed Date Resolved Date ADHD 03/16/2023 03/16/2023 documented as of this encounter (statuses as of 07/18/2023) [facility] of Past illness Narrative* Problem Noted Date Diagnosed Date Resolved Date ADHD 03/16/2023 03/16/2023 documented as of this encounter (statuses as of 08/27/2023) [facility] of Past illness Narrative* Problem Noted Date Diagnosed Date Resolved Date ADHD 03/16/2023 03/16/2023 documented as of this encounter (statuses as of 08/27/2023) [facility] of Past illness Narrative* Problem Noted Date Diagnosed Date Resolved Date ADHD 03/16/2023 03/16/2023 documented as of this encounter (statuses as of 08/29/2023) [facility]23 NoteHNO ID: [id number] Author: Caitlin Cheatham APRN.PLUM PACKER Service: ? Author Type: Nurse Practitioner Type: [...] (Z12.4) Screening for cervical cancer `CONSULT TO FISH HATCHERY SUPERINTENDENT 5. (Z87.42) History of abnormal cervical Pap smear `CONSULT TO FISH HATCHERY SUPERINTENDENT 6. (F11.11) History of heroin abuse (HCC) [...] year for annual visit, sooner as needed. Caitlin Cheatham APRN.[facility]06-05-2023 Instructions* Patient Instructions* Caitlin Cheatham APRN.[facility] - 03/16/2023 8:57 AM EDT SMOKING CESSATION [...] desirable brand of cigarettes. ___ Discard your grease cup filler. Use matches. Carry your cigarettes in a [...] why you quit. Also remember that a powerful industry spends billions of dollars each year trying to get people like yourself re-hooked . The patient's goal is to quit by (insert month/year) documented in this encounterOhiohealth Van Wert Hospital06-05-2023 History of Present illness Narrative* Caitlin Cheatham APRN.JULIAN - 03/16/2023 8:47 AM EDT [...] (Z12.4) Screening for cervical cancer `CONSULT TO FISH HATCHERY SUPERINTENDENT 5. (Z87.42) History of abnormal cervical Pap smear `CONSULT TO FISH HATCHERY SUPERINTENDENT 6. (F11.11) History of heroin abuse (HCC) [...] year for annual visit, sooner as needed. Caitlin Cheatham APRN.PLUM PACKER documented in this encounterOhiohealth Van Wert Hospital04-06-2023 Progress note Author Bobo Shields [facility] January 15, 2023 12:20pm Note Date/Time January 15, 2023 12:2 0pm [facility] [address] [place] [address] Psychiatry Progress Note Signed Patient: Lorna Deutsch MR#: [id number] : 1985 Acct:[id number] Age/Sex: 38 / F Adm Date: 3 Loc: Room: [address] [place] [address] Type : ADM IN Attending Dr: Bobo [...] signed by Bobo Shields MD> 01/15/23 1220 [facility] Work Phone: 1(761) 543-845904-05-2023 Progress note Author Bobo Shields [facility] January 14, 2023 12:21pm Note Date/Time January 14, 2023 12:2 1pm [facility] [address] [place] [address] Psychiatry Progress Note Signed Patient: Lorna Deutsch MR#: [id number] : 1985 Acct:[id number] Age/Sex: 38 / F Adm Date: 3 Loc: Room: [address] [place] [address] Type : ADM IN Attending Dr: Bobo [...] signed by Bobo Shields MD> 01/14/23 1221 [facility] Work Phone: 1(714) 709-168404-04-2023 Progress note Author Bobo Shields [facility] January 13, 2023 2:21pm Note Date/Time January 13, 2023 12:1 9pm [facility] [address] [place] [address] Psychiatry Progress Note Signed Patient: Lorna Deutsch MR#: [id number] : 1985 Acct:[id number] Age/Sex: 38 / F Adm Date: 3 Loc: Room: [address] [place] [address] Type : ADM IN Attending Dr: Bobo [...] alternatives explained Documented By: Bobo Shields MD 01/13/237 Signed By: <Electronically signed by Bobo Shields MD> 01/13/23 1424 [facility] Work Phone: 1(310) 423-862604-03-2023 History and physical note Author Bobo Shields [facility] January 12, 2023 3:37pm Note Date/Time January 12, 2023 3:33 pm [facility] [address] [place] [address] Psychiatry H&P Signed Patient: Lorna Deutsch MR#: [id number] : 1985 Acct:[id number] Age/Sex: 38 / F Adm Date: 3 Loc: Room: [address] [place] [address] Type: ADM IN Attending Dr: Bobo Shields MD Copies to: MD Cris Murcia APRN, PLUM PACKER~ Date of Service: 01/12/2023 HPI History of [...] Medical History (Updated 01/12/23 @ 15:24 by Jose Moses DO) Anxiety Asthma Back fracture Depressed [...] Cloudy A Urine pH 6.0 Ur Specific [place] 1.020 Urine Protein Negative Urine Glucose (UA) [...] explained Documented By: Bobo Shields MD 01/12/23 1526 Signed By: <Electronically signed by Bobo Shields MD> 01/12/23 1537 [facility] Work Phone: 1(282) 149-495101-06-2023 Hospital Discharge instructions Follow Up Care 10/17/2022 14:45:23 With:MAGALIE JULIANCris Address: [address] [place] [address]- When:Within 3 Month(s) [facility] 12-30-2022 Hospital Discharge instructions Follow Up Care 10/10/2022 09:47:38 With:MAGALIE JULIANCris Address: [address] [place] [address]- When: only if needed [facility] 12-22-2022 Hospital Discharge instructions Patient Education [...] frozen fruits, and frozen vegetables. Avoid buying qkwwo-zb-pnz foods, such as pre-cut fruits and vegetables and pre-made salads. If possible, shop around to discover where you can find the best prices. Consider other retailers such as [employer] stores, larger wholesale stores, local fruit and vegetable [employer], and [employer] markets. Do not shop when you are [...] 06/01/2015 Document Revised: 09/29/2018 Document Reviewed: 09/29/2018 [employer] Patient Education 2020 [employer]. 10/02/2022 17:55:09 Tobacco Use Disorder Tobacco Use [...] reduces withdrawal symptoms. NRT is available as: ?Sgey-avk-sksjrrn gums, lozenges, and skin patches. ?Prescription mouth [...] recovery for many people. General instructions Take awgm-qdm-ddbzeqg and prescription medicines only as told by your health care provider. Check with your health care provider before taking any new prescription or yhtp-let-ubgpeww medicines. Decide on a friend, family member, or smoking quit-line (such as 7-474-XDUF-NOW in the [place] that you can call [...] 06/03/2005 Document Revised: 09/15/2018 Document Reviewed: 09/15/2018 [employer] Patient Education 2020 [employer]. 10/02/2022 17:55:05 Attention Deficit Hyperactivity Disorder, Adult [...] primary care provider or a mental health home care rn. Your health care provider may use a [...] Behavioral management. You may work with a speech coach who is specially trained to help people with ADHD manage and organize activities and function more effectively. Follow these instructions at home: Medicines Take lnfm-vsp-jfrysrx and prescription medicines only as told by [...] Attention Deficit Disorder Association (ADDA): www.add.org National [place] of Mental Health (NIMH): www.nimh.nih.gov Contact a health care provider if: [...] 05/20/2018 Document Revised: 02/20/2020 Document Reviewed: 02/20/2020 [employer] Patient Education 2019 [employer] 10/02/2022 17:55:03 Neuropathic Pain Neuropathic Pain [...] this treated? Treatment for neuropathic pain may pattern changer time. You may need to try different treatment options or a combination of treatments. Some options include: Treating the underlying cause of the neuropathy, such as diabetes, kidney disease, or vitamin deficiencies. Stopping medicines that can cause neuropathy, such as chemotherapy. Medicine to relieve pain. Medicines may include: ?Prescription or dyci-uzk-ukfnbwg pain medicine. ?Anti-seizure medicine. ?Antidepressant medicines. ?Pain-relieving [...] Follow these instructions at home: Medicines Take mqvt-itj-ajmdmue and prescription medicines only as told by [...] as fried or sweet foods. ?Take an adpp-kft-thsdaqs or prescription medicine for constipation. Lifestyle Have [...] 06/25/2005 Document Revised: 01/19/2020 Document Reviewed: 10/15/2018 [employer] Patient Education 2020 [employer]. Follow Up Care 09/29/2022 11:32:44 With:NANCY RODRIGUEZ CNP Address: [facility] [address] [place] [address] When: Unknown [facility] 07-15-2022 Hospital Discharge instructions Patient Education 04/25/2022 [...] computer, cell phone, or tablet. Medicines Take fzmy-nqn-lgkbegp and prescription medicines only as told by [...] be a hospital support group, a National [place] on Mental Illness ([place]) support group, or a 12-step group such as Alcoholics Anonymous (AA) or Narcotics Anonymous (NA). Family and friends. Let them know what they can do to best support you through your recovery process. Where to find more information You may find more information about substance use disorder and mental illness from: Substance Abuse and Mental Health Services Administration (SAMA): ?Online: www.samhsa.gov ?National Helpline, to talk with a person who can help you find information about treatment services in your area: (4-717-GSFNFE8) U.S. Department of Health and Human Services mental health services: www.mentalhealth.gov National [place] on Mental Illness ([place]): www.bernardo.org National [place] on Alcoholism and Drug Dependence: www.ncadd.org Contact [...] 02/12/2018 Document Revised: 11/24/2019 Document Reviewed: 02/12/2018 [employer] Patient Education 2020 [employer]. 04/25/2022 02:56:28 Managing Schizophrenia Managing Schizophrenia If [...] eating. Follow these instructions at home: Take gtwm-[id number] and prescription medicines only as told by [...] be able to find financial assistance through kpz-[id number]-tsvtbp organizations or with local government-based resources. If [...] schizophrenia. Where to find more information National [place] on Mental Illness: www.bernardo.org Contact a health care provider if: You [...] 01/28/2018 Document Revised: 01/20/2020 Document Reviewed: 01/28/2018 [employer] Patient Education 2020 [employer] Follow Up Care 04/24/2022 12:58:04 With:[facility] Address:Unknown When: Unknown Comments:Call the office today to arrange further detox options. With:NANCY RODRIGUEZ Address: [address] [place] [address] Business (1) When:Within 3 Day(s) [facility]07-14-2022 Evaluation + Plan noteExtracted from: Title:ED [...] day(s), # 14 cap(s), Refills(s) 0, Pharmacy: [id number], 165, cm, 04/24/22 13:10:00 EDT, Height/Length Dosing, 70.8, kg, 04/24/22 13:10:00 EDT, Weight Dosing lorazepam, 2 mg = 2 tab(s), Tab, Oral, Once, Stop date 04/24/22 14:20:00 EDT, STAT, Start date 04/24/22 14:20:00 EDT, 04/24/22 14:20:00 EDT Basic Metabolic Panel Creatine Kinase Drug Screen Urine ECG 12 Lead Adult eGFR Rapid COVID Antigen ([facility]) Troponin 0 Hr. UA With Cult Reflex Urine Culture [facility] Future Appointments Appointment Date:04/02/2023 11:00:00 AM Scheduled Provider:NANCY RODRIGUEZ CNP Location:[facility] Appointment Type: Open Future Scheduled Tests Radiology* XR Knee Complete 4+ Views Left 10/02/22 * XR Elbow 3+ Views Left 10/02/22 * XR Spine Lumbosacral Minimum 4 Views 10/02/[address] [facility] Evaluation + Plan note Future Appointments Appointment Date:02/05/2023 02:20:00 PM Scheduled Provider:Cris PENA CNP Location:[facility] Appointment Type: Open Appointment Date:04/02/2023 11:00:00 AM Scheduled Provider:NANCY RODRIGUEZ CNP Location:[facility] Appointment Type: Open Future Scheduled Tests Radiology* XR Knee Complete 4+ Views Left 10/02/22 * XR Elbow 3+ Views Left 10/02/22 * XR Spine Lumbosacral Minimum 4 Views 10/02/22 [facility] Evaluation noteNo assessment information available [facility] Work Phone: evaluation note* Diagnosis Onset Date Resolution Status Bipolar 1 disorder, depressed acute Hypokalemia acute Opioid use disorder acute Suicidal ideation acute UTI (urinary tract infection) acute [facility] Work Phone: evaluation note* Diagnosis Wellness examination- Primary Screening for diabetes mellitus Screening for lipid disorders Screening for cervical cancer Screening for malignant neoplasm of the cervix History of abnormal cervical Pap smear Personal history of other genital system and obstetric disorders History of heroin abuse (HCC) Opioid abuse, in remission Attention deficit hyperactivity disorder (ADHD), unspecified ADHD type Bipolar depression (HCC) Bipolar I disorder, most recent episode (or current) depressed, unspecified Paranoid schizophrenia (HCC) Paranoid schizophrenia, unspecified condition Chronic midline low back pain without sciatica [facility] Anxiety- Primary Anxiety state, unspecified [facility] Diagnosis Attention deficit hyperactivity disorder (ADHD), unspecified ADHD type- Primary Paranoid schizophrenia (HCC) Paranoid schizophrenia, unspecified condition Bipolar depression (HCC) Bipolar I disorder, most recent episode (or current) depressed, unspecified History of heroin abuse (HCC) Opioid abuse, in remission [facility] Paranoid schizophrenia (HCC) Paranoid schizophrenia, unspecified condition Bipolar depression (HCC) Bipolar I disorder, most recent episode (or current) depressed, unspecified [facility] Diagnosis Paranoid schizophrenia (HCC) Paranoid schizophrenia, unspecified condition Bipolar depression (HCC) Bipolar I disorder, most recent episode (or current) depressed, unspecified Attention deficit hyperactivity disorder (ADHD), unspecified ADHD type [facility] Diagnosis Attention deficit hyperactivity disorder (ADHD), unspecified ADHD type [facility] Diagnosis Onset Date Resolution Status Bipolar disorder, unspecified acute [facility] Work Phone: Evaluation note* Diagnosis Myofascial pain syndrome Mylagia and myositis, unspecified [facility] Diagnosis Myofascial pain syndrome Mylagia and myositis, unspecified [facility] Diagnosis Onset Date Resolution Status Bipolar disorder, unspecified acute Bipolar disorder, now depressed acute Intentional overdose acute Methadone dependence acute [facility] Work Phone: Evaluation note* Diagnosis Onset Date Resolution Status Abscess of skin or subcutaneous tissue acute Bipolar 1 disorder, depressed acute Bipolar disorder, now depressed acute Intentional overdose acute Methadone dependence acute Sputum production acute Tobacco abuse acute Unspecified psychosis acute [facility] Work Phone: History and physical note Author Bobo Shields [facility] January 12, 2023 3:37pm Note Date/Time January 12, 2023 3:33 pm [facility] [address] [place] [address] Psychiatry H&P Signed Patient: Lorna Deutsch MR#: [id number] : 1985 Acct:[id number] Age/Sex: 38 / F Adm Date: 3 Loc: Room: [address] [place] [address] Type: ADM IN Attending Dr: Bobo Shields [...] Medical History (Updated 01/12/23 @ 15:24 by Jose Moses DO) Anxiety Asthma Back fracture Depressed [...] Cloudy A Urine pH 6.0 Ur Specific [place] 1.020 Urine Protein Negative Urine Glucose (UA) [...] signed by Bobo Shields MD> 01/12/23 1537 [facility] Work Phone: Hospital course Narrative No data available for this section [facility] No data available for this section [facility] Additional Instructions Follow-up with your primary care doctor Return to the ED if you develop worsening symptoms [facility] Work Phone: Hospital Discharge instructions Additional Instructions Regular diet No activity restrictions[facility] Work Phone: Hospital Discharge instructions Additional Instructions Important Contact Information You can call [facility] at [phone] any time day or night if you have emergent questions or question regarding discharge instructions. If at any time you are feeling an increase in your psychiatric symptoms, call your physician or behavioral healthcare provider. If any time you have thoughts of harming yourself or others contact one of the following: Call (available 04/05) Crisis Text Line (available 04/05) text 4HOPE to [phone] [facility] Hope Line (available 8 a.m. Midnight) call [phone] ([phone]) Regular Diet No Activity Rest[facility]ions[facility] Work Phone: Progress note No data available for this section [facility] Summary Purpose Family History No Family [...] FoundDocuments on File Type Date Recorded Patient Assistant Front Desk Manager Expl anation ACP-Advance Directive ACP-Advance Directive 07/04/2014 2:14 PM ACP-Power of Appraiser Latest Code Status on File Code Status [...] Anxiety mental eval Wants to talk to Dr Reason for Visit Bipolar 1 disorder, depressed Hypokalemia Opioid use disorder Suicidal ideation UTI (urinary tract infection) Chief Complaint Wants to talk to Dr Ad portillol,MHP anxiety Missed meth clinic/needs meds Chief Complaint Wants to talk to Alcohol withdrawl,MHP anxiety Missed meth clinic/needs meds needs [...] features anxiety MHP hx Anxiety feeling sick MHP Reason for Visit Bipolar disorder, un specified Bipolar disorder, now depressed Intentional overdose Methadone dependence Chief Complaint anxiety MHP hx Anxiety feeling sick MHP Reason for Visit Abscess of skin or s ubcutaneous tissue Bipolar 1 disorder, depressed Bipolar disorder, now depressed Intentional overdose Methadone dependence Sputum production Tobacco abuse Unspecified psychosis Reason for Referral Specialty Diagnoses / Procedures Referred By Contac t Referred To Contact Pain Management Diagnoses Chronic midline low back pain without sciatica Procedures CONSULT TO PAIN MGT OFFICE/OUTPATIENT [facility] 60-74 MINUTES Caitlin Cheatham APRN.PLUM PACKER [address] [place] [address] Referral ID Status Reason Start Date Expiration Date Visits Requested Visits Authorized [id number] Authorized PCP Requested Referral 03/16/2023 03/15/2024 1 1 Specialty Diagnoses / Procedures Referred By Contac t Referred To Contact Diagnoses Attention deficit hyperactivity disorder (ADHD), unspecified ADHD type Bipolar depression (HCC) Paranoid schizophrenia (HCC) Procedures CONSULT TO PSYCHIATRY OFFICE/OUTPATIENT [facility] 60-74 MINUTES Caitlin Cheatham APRN.PLUM PACKER [address] [place] [address] Referral ID Status Reason Start Date Expiration Date Visits Requested Visits Authorized [id number] Pending Review PCP Requested Referral 03/16/2023 03/15/2024 1 1 Specialty Diagnoses / Procedures Referred By Contac t Referred To Contact Diagnoses History of abnormal cervical Pap smear Procedures CONSULT TO FISH HATCHERY SUPERINTENDENT OFFICE/OUTPATIENT [facility] 60-74 MINUTES Caitlin Cheatham APRN.PLUM PACKER [address] [place] [address] Referral ID Status Reason Start Date Expiration Date Visits Requested Visits Authorized [id number] Authorized PCP Requested Referral Auto-Generate d Referral 03/16/2023 03/15/2024 1 1 Additional Source Comments INFORMATION SOURCE (unrecogn ized section and content) DATE CREATED AUTHOR 05/14/2019 [facility] DATE CREATED AUTHOR AUTHOR'S ORGANIZ ATION 02/11/2021 [facility] DATE CREATED AUTHOR AUTHOR'S ORGANIZ ATION 01/16/2023 [facility] DATE CREATED AUTHOR AUTHOR'S ORGANIZ ATION 05/17/2023 [facility] DATE CREATED AUTHOR AUTHOR'S ORGANIZ ATION 06/13/2023 [facility] DATE CREATED AUTHOR AUTHOR'S ORGANIZ ATION 09/01/2023 [facility] DATE CREATED AUTHOR AUTHOR'S ORGANIZ ATION 10/21/2023 [facility] DATE CREATED AUTHOR AUTHOR'S ORGANIZ ATION 11/06/2023 [facility] Care Team (unrecognized sect ion and content) Team Status: Active Member Role Status Dates Cris Pena APRN DRILL PRESS OPERATOR FOR METAL-C Primary Care Provider Active Team Status: Inactive Member Role Status Dates Rachael Reyes DO Emergency Provider Active Cris Pena APRN DRILL PRESS OPERATOR FOR METAL-C Primary Care Provider Active Team Status: Inactive Member Role Status Dates Cris Pena APRN DRILL PRESS OPERATOR FOR METAL-C Primary Care Provider Active Nito Walton DO Emergency Provider Active Team Status: Active Member Role Status Dates Cris Pena APRN DRILL PRESS OPERATOR FOR METAL-C Primary Care Provider Active Jose Moses DO Emergency Provider Active Bobo Shields MD Admit Provider, Attending Provider Active Team Status: Inactive Member Role Status Dates Rachael Reyes DO Emergency Provider Active Nancy Rodriguez , DRILL PRESS OPERATOR FOR METAL-C Primary Care Provider Active Team Status: Active Member Role Status Dates Nancy Rodriguez DRILL PRESS OPERATOR FOR METAL-C Primary Care Provider Active Team Status: Inactive Member Role Status Dates Cris Pena APRN DRILL PRESS OPERATOR FOR METAL-C Primary Care Provider Active Jose Moses DO Emergency Provider Active Bobo Shields MD Admit Provider, Attending Provider Active Team Status: Inactive Member Role Status Dates Cris Pena APRN DRILL PRESS OPERATOR FOR METAL-C Primary Care Provider Active Farhad Landon MD Emergency Provider Active Feedlot Manager Relationship Specialty Start Date End Date Caitlin Cheatham, COMPUTER SYSTEMS TECHNOLOGY INSTRUCTOR.PLUM PACKER [address] [place] [address] PCP - General Internal Medicine 03/16/23 Feedlot Manager Relationship Specialty Start Date End Date Caitlin Cheatham, COMPUTER SYSTEMS TECHNOLOGY INSTRUCTOR.PLUM PACKER [address] [place] [address] PCP - General Internal Medicine 03/16/23 Feedlot Manager Relationship Specialty Start Date End Date Randal Cheathamina, COMPUTER SYSTEMS TECHNOLOGY INSTRUCTOR.PLUM PACKER [address] [place] [address] PCP - General Internal Medicine 03/16/23 Feedlot Manager Relationship Specialty Start Date End Date RandalCaitlin, COMPUTER SYSTEMS TECHNOLOGY INSTRUCTOR.PLUM PACKER [address] [place] [address] PCP - General Internal Medicine 03/16/23 Team Status: Active Member Role Status Dates NON STAFF Primary Care Provider Active Team Status: Inactive Member Role Status Dates Cris Pena APRN DRILL PRESS OPERATOR FOR METAL-C Primary Care Provider Active Leonard Salazar DO Emergency Provider Active Team Status: Inactive Member Role Status Dates Cris Pena APRN DRILL PRESS OPERATOR FOR METAL-C Primary Care Provider Active Rachael Reyes , DO Emergency Provider Active Team Status: Inactive Member Role Status Dates NON STAFF Primary Care Provider Active Rachael Reyes , DO Emergency Provider Active Team Status: Inactive Member Role Status Dates NON STAFF Primary Care Provider Active XIOMARA NolanC Emergency Provider Active Feedlot Manager Relationship Specialty Start Date End Date RandalCaitlin, COMPUTER SYSTEMS TECHNOLOGY INSTRUCTOR.PLUM PACKER [address] [place] [address] PCP - General Internal Medicine 03/16/23 Feedlot Manager Relationship Specialty Start Date End Date Randal coronelina, COMPUTER SYSTEMS TECHNOLOGY INSTRUCTOR.PLUM PACKER [address] [place] [address] PCP - General Internal Medicine 03/16/23 Team Status: Inactive Member Role Status Dates NON STAFF Primary Care Provider Active Luis Armando Hendrix MD Emergency Provider Active Team Status: Inactive Member Role Status Dates NON STAFF Primary Care Provider Active Bobo Shields MD Admit Provider, Attending Provider Active Team Status: Active Member Role Status Dates Cris SolisRUIZ camp DRILL PRESS OPERATOR FOR METAL-C Primary Care Provider Active Claudio Dee MD Attending Provider Active Team Status: Active Member Role Status Dates Cris Pena APRN DRILL PRESS OPERATOR FOR METAL-C Primary Care Provider Active Chucky Dueñas Jr, MD Emergency Provider Active Bobo Shields MD Admit Provider, Attending Provider Active Team Status: Inactive Member Role Status Dates Cris Pena APRN DRILL PRESS OPERATOR FOR METAL-C Primary Care Provider Active Chucky Dueñas Jr, MD Emergency Provider Active Bobo Shields MD Admit Provider, Attending Provider Active Goals (unrecognized section and content) Goals may be documented in a n alternate section Source Comments (unrecognize d section and content) In the event this informatio n is protected by the Federal Confidentiality of Alcohol and Drug Abuse Patient Records regulations: The Federal rules restrict any use of the information to criminally investigate or prosecute any alcohol or drug abuse patient.[facility] the event this information is protected by the Federal Confidentiality of Alcohol and Drug Abuse Patient Records regulations: The Federal rules restrict any use of the information to criminally investigate or prosecute any alcohol or drug abuse patient.[facility] Hospital[facility] the event this information is protected by the Federal Confidentiality of Alcohol and Drug Abuse Patient Records regulations: The Federal rules restrict any use of the information to criminally investigate or prosecute any alcohol or drug abuse patient.[facility] Hospital[facility] the event this information is protected by the Federal Confidentiality of Alcohol and Drug Abuse Patient Records regulations: The Federal rules restrict any use of the information to criminally investigate or prosecute any alcohol or drug abuse patient.[facility] HospitalIn the event this information is protected by the Federal Confidentiality of Alcohol and Drug Abuse Patient Records regulations: The Federal rules restrict any use of the information to criminally investigate or prosecute any alcohol or drug abuse patient.[facility] Hospital[facility] the event this information is protected by the Federal Confidentiality of Alcohol and Drug Abuse Patient Records regulations: The Federal rules restrict any use of the information to criminally investigate or prosecute any alcohol or drug abuse patient.[facility] HospitalIn the event this information is protected by the Federal Confidentiality of Alcohol and Drug Abuse Patient Records regulations: The Federal rules restrict any use of the information to criminally investigate or prosecute any alcohol or drug abuse patient.[facility] Hospital[facility] the event this information is protected by the Federal Confidentiality of Alcohol and Drug Abuse Patient Records regulations: The Federal rules restrict any use of the information to criminally investigate or prosecute any alcohol or drug abuse patient.[facility] Hospital[facility] the event this information is protected by the Federal Confidentiality of Alcohol and Drug Abuse Patient Records regulations: The Federal rules restrict any use of the information to criminally investigate or prosecute any alcohol or drug abuse patient.[facility] HospitalIn the event this information is protected by the Federal Confidentiality of Alcohol and Drug Abuse Patient Records regulations: The Federal rules restrict any use of the information to criminally investigate or prosecute any alcohol or drug abuse patient.[facility] Hospital[facility] the event this information is protected by the Federal Confidentiality of Alcohol and Drug Abuse Patient Records regulations: The Federal rules restrict any use of the information to criminally investigate or prosecute any alcohol or drug abuse patient.[facility] Hospital[facility] the event this information is protected by the Federal Confidentiality of Alcohol and Drug Abuse Patient Records regulations: The Federal rules restrict any use of the information to criminally investigate or prosecute any alcohol or drug abuse patient.[facility] HospitalIn the event this information is protected by the Federal Confidentiality of Alcohol and Drug Abuse Patient Records regulations: The Federal rules restrict any use of the information to criminally investigate or prosecute any alcohol or drug abuse patient.[facility] HospitalIn the event this information is protected by the Federal Confidentiality of Alcohol and Drug Abuse Patient Records regulations: The Federal rules restrict any use of the information to criminally investigate or prosecute any alcohol or drug abuse patient.[facility] Hospital[facility] the event this information is protected by the Federal Confidentiality of Alcohol and Drug Abuse Patient Records regulations: The Federal rules restrict any use of the information to criminally investigate or prosecute any alcohol or drug abuse patient.[facility] HospitalIn the event this information is protected by the Federal Confidentiality of Alcohol and Drug Abuse Patient Records regulations: The Federal rules restrict any use of the information to criminally investigate or prosecute any alcohol or drug abuse patient.[facility] Reason for Visit (unrecogniz ed section [...] BE BASED ON THE PRIMARY CLINICAL RECORDS. [facility]. provides no warranty or guarantee of the accuracy or completeness of information in this document.
--- NOTE | 2023-11-21 16:40 | PC.NURSE ---
pt speaking with Sisi with [facility] at this time.
[2023-11-21] MEDS: CLONAZEPAM 0.5 MG TABLET PO (17:09)
--- NOTE | 2023-11-21 17:16 | ED.PSYCH1 ---
Documented by User: Kristi Rayo MD 11/22/23 07:13 HPI - Psych General Chief Complaint: Psychiatric Symptoms Stated Complaint: OFF MEDS A FEW DAYS Time Seen by Provider: 11/21/23 16:21 Mode of arrival: walk-in Limitations: Reports no limitations History of Present Illness HPI Narrative: The patient is coming to the ER requesting an evaluation by psychiatry after she had not taking her medication for the last 3-day the patient have history of anxiety continuous opiate abuse on Suboxone, in addition to history of schizophrenia. The patient apparently did not take her medication for the last 3 days because she had [facility] them [facility] in [place] and she revived in this area. The patient mentioned that she did not sleep for the last 3 days at all and she is very anxious. The patient mentioned that she want to be admitted to [facility] to be started about the medication. The patient also mentioned that she has been having paranoid episodes. Related Data Home Medications Medication Instructions Recorded Confirmed divalproex 250 mg tablet,delayed 750 mg PO BEDTIME 06/11/23 11/21/23 release albuterol sulfate 90 mcg/actuation 2 puff inhalation Q6H PRN 07/02/23 11/21/23 aerosol inhaler shortness of breath or wheezing methadone 5 mg/5 mL oral solution 130 mg PO QDAY 07/02/23 11/21/23 pregabalin 100 mg capsule 100 mg PO Q8H 07/02/23 11/21/23 dextroamphetamine-amphetamine 10 20 mg PO BID 09/09/23 11/21/23 mg tablet quetiapine 150 mg tablet 300 mg PO .qhs 09/09/23 11/21/23 quetiapine 25 mg tablet 50 mg PO QDAY 09/09/23 11/21/23 albuterol sulfate 2.5 mg/3 mL mg 09/29/23 (0.083 %) solution for nebulization atomoxetine 25 mg capsule 25 mg PO DAILY 11/21/23 11/21/23 buprenorphine 8 mg-naloxone 2 mg 1 film sublingual DAILY 11/21/23 11/21/23 sublingual film bupropion HCl 300 mg 24 hr tablet, 300 mg PO DAILY 11/21/23 11/21/23 extended release cyclobenzaprine 5 mg tablet 5 mg PO DAILY 11/21/23 11/21/23 duloxetine 30 mg capsule,delayed 30 mg PO .ashleigh 11/21/23 11/21/23 release Previous Rx's Medication Instructions Recorded clonazepam 0.5 mg tablet (Klonopin) 0.5 mg PO Q8H PRN anxiety #6 tabs 09/10/23 dextroamphetamine-amphetamine 10 20 mg (2 x 10 mg) PO BID #8 tabs 09/10/23 mg tablet (Adderall) Allergies Allergy/AdvReac Type Severity Reaction Status Date / Time No Known Drug Allergies Allergy Verified 09/29/23 23:12 Review of Systems ROS Status of ROS 10 or more systems reviewed and unremarkable except as noted in history and below PFSH PFS Social History Smoking status: Current every day smoker Exam Narrative Exam Narrative: Nurses notes and vital signs reviewed and patient is not hypoxic. General: Well-appearing and in no apparent distress. Skin: Warm, dry, no pallor noted. No rash. Head: Normocephalic, atraumatic. Neck: Supple, non-tender. Eye: Pupils are equal, round and EOMI. No scleral icterus. Ears, Nose, Mouth, and Throat: TM are clear, no nasal mucosal hypertrophy. Oral mucosa is moist, no posterior oropharynx erythema, uvula is mid-line Cardiovascular: Regular Rate and Rhythm without murmur, gallop or rub. Respiratory: No accessory muscle use or respiratory distress. Lungs are clear to auscultation, no wheezing, rales or rhonchi Chest Wall: no tenderness Back: No midline thoracic or lumbar vertebral tenderness. No CVA tenderness Musculoskeletal: normal ROM, no calf or popliteal tenderness, no lower extremity edema/swelling GI: Abdomen is soft, non-distended. Normal bowel sounds. No masses appreciated. No tenderness to palpation. No rebound, guarding, or rigidity noted. Neurological: A&O x4. No cranial nerve dysfunction observed. No truncal ataxia. Moves all extremities. Sensation intact. Psychiatric: Cooperative Constitutional Vital Signs, click to edit/add: Last Vital Signs Temp 97.9 F 11/21/23 16:20 Pulse 100 H 11/22/23 00:41 Resp 18 11/21/23 16:20 BP 109/72 11/22/23 00:41 Pulse Ox 99 11/22/23 00:41 Course Vital Signs Vital signs: Vital Signs Temperature 97.9 F 11/21/23 16:20 Pulse Rate 84 11/21/23 16:20 Respiratory Rate 18 11/21/23 16:20 Blood Pressure 130/102 H 11/21/23 16:20 Pulse Oximetry 100 11/21/23 16:20 Temperature 97.9 F 11/21/23 16:20 Pulse Rate 100 H 11/22/23 00:41 Respiratory Rate 18 11/21/23 16:20 Blood Pressure 109/72 11/22/23 00:41 Pulse Oximetry 99 11/22/23 00:41 MDM - Psych MDM Narrative Medical decision making narrative: The patient had a blood workup ordered awaiting assessment she is also evaluated by [facility]'s psychiatric evaluation The patient care awaiting [facility]'s psychiatric's assessment is transferred to Dr. Scuhlte Lab Data Labs: Lab Results 11/21/23 11/21/23 Range/Units 19:15 20:53 WBC 6.4 (4.0-11.0) 10^3/uL RBC 4.59 (4.20-5.40) 10^6/uL Hgb 13.9 (12.0-16.0) g/dL Hct 41.0 (36.0-48.0) % MCV 89.3 (81.0-99.0) fL MCH 30.3 (26.7-34.0) pg MCHC 33.9 (29.9-35.2) g/dL RDW 13.5 (11.0-15.0) % Plt Count 325 (150-450) 10^3/uL MPV 9.8 (9.5-13.5) fL Neut % (Auto) 37.8 L (43.0-75.0) % Lymph % (Auto) 54.6 (20.5-60.0) % Spink % (Auto) 6.4 (1.7-12.0) % Eos % (Auto) 0.6 L (0.9-7.0) % Baso % (Auto) 0.3 (0.2-2.0) % Neut # (Auto) 2.4 (1.4-6.5) 10^3/uL Lymph # (Auto) 3.5 (1.2-3.8) 10^3/uL Spink # (Auto) 0.4 (0.3-0.8) 10^3/uL Eos # (Auto) 0.0 (0.0-0.7) 10^3/uL Baso # (Auto) 0.0 (0.0-0.1) 10^3/uL Abs Immat Gran (auto) 0.02 (0.00-0.03) 10^3/uL Imm/Tot Granulo (auto) 0.3 (0.0-0.5) % Sodium 145 (136-145) mmol/L Potassium 3.0 L (3.5-5.1) mmol/L Chloride 106 (98-107) mmol/L Carbon Dioxide 26.6 (21.0-32.0) mmol/L Anion Gap 15.4 BUN 11.0 (7.0-18.0) mg/dL Creatinine 0.67 (0.55-1.02) mg/dL Est GFR ( Amer) >60 (>=60) Est GFR (Non-Af Amer) >60 (>=60) BUN/Creatinine Ratio 16.4 Glucose 106 (74-106) mg/dL Calcium 9.5 (8.5-10.1) mg/dL Total Bilirubin 0.3 (0.2-1.0) mg/dL AST 18 (15-37) U/L ALT 29 (14-59) U/L Alkaline Phosphatase 56 (46-116) U/L Total Creatine Kinase 73 (26-192) U/L Total Protein 8.2 (6.4-8.2) g/dL Albumin 3.9 (3.4-5.0) g/dL Globulin 4.3 g/dL Albumin/Globulin Ratio 0.9 Serum HCG, Qual Negative (NEGATIVE) Salicylates 6.5 (<=19.9) mg/dL Urine Opiates Screen Negative (NEGATIVE) Ur Buprenorphine Scrn Positive A (NEGATIVE) Ur Oxycodone Screen Negative (NEGATIVE) Urine Methadone Screen Negative (NEGATIVE) Acetaminophen <2.0 L (10.0-30.0) ug/mL Ur Barbiturates Screen Negative (NEGATIVE) U Tricyclic Antidepress Negative (NEGATIVE) Ur Phencyclidine Scrn Negative (NEGATIVE) Ur Amphetamines Screen Negative (NEGATIVE) U Methamphetamines Scrn Negative (NEGATIVE) U Benzodiazepines Scrn Negative (NEGATIVE) Urine Cocaine Screen Positive A (NEGATIVE) U Cannabinoids Screen Negative (NEGATIVE) Ethanol Quant <3 mg/dL Discharge Plan Discharge Chief Complaint: Psychiatric Symptoms Clinical Impression: Drug abuse, Anxiety Patient Disposition: er [facility] Hospital Discharge Date/Time: 11/22/23 01:21 Documented by User: Edilson Schulte MD 11/23/23 06:47 HPI - Psych General Chief Complaint: Psychiatric Symptoms Stated Complaint: OFF MEDS A FEW DAYS Time Seen by Provider: 11/21/23 16:21 Related Data Home Medications Medication Instructions Recorded Confirmed divalproex 250 mg tablet,delayed 750 mg PO BEDTIME 06/11/23 11/21/23 release albuterol sulfate 90 mcg/actuation 2 puff inhalation Q6H PRN 07/02/23 11/21/23 aerosol inhaler shortness of breath or wheezing methadone 5 mg/5 mL oral solution 130 mg PO QDAY 07/02/23 11/21/23 pregabalin 100 mg capsule 100 mg PO Q8H 07/02/23 11/21/23 dextroamphetamine-amphetamine 10 20 mg PO BID 09/09/23 11/21/23 mg tablet quetiapine 150 mg tablet 300 mg PO .qhs 09/09/23 11/21/23 quetiapine 25 mg tablet 50 mg PO QDAY 09/09/23 11/21/23 albuterol sulfate 2.5 mg/3 mL mg 09/29/23 (0.083 %) solution for nebulization atomoxetine 25 mg capsule 25 mg PO DAILY 11/21/23 11/21/23 buprenorphine 8 mg-naloxone 2 mg 1 film sublingual DAILY 11/21/23 11/21/23 sublingual film bupropion HCl 300 mg 24 hr tablet, 300 mg PO DAILY 11/21/23 11/21/23 extended release cyclobenzaprine 5 mg tablet 5 mg PO DAILY 11/21/23 11/21/23 duloxetine 30 mg capsule,delayed 30 mg PO .ashleigh 11/21/23 11/21/23 release Previous Rx's Medication Instructions Recorded clonazepam 0.5 mg tablet (Klonopin) 0.5 mg PO Q8H PRN anxiety #6 tabs 09/10/23 dextroamphetamine-amphetamine 10 20 mg (2 x 10 mg) PO BID #8 tabs 09/10/23 mg tablet (Adderall) Allergies Allergy/AdvReac Type Severity Reaction Status Date / Time No Known Drug Allergies Allergy Verified 09/29/23 23:12 PFSH PFSH Social History Smoking status: Current every day smoker Exam Constitutional Vital Signs, click to edit/add: Last Vital Signs Temp 97.9 F 11/21/23 16:20 Pulse 100 H 11/22/23 00:41 Resp 18 11/21/23 16:20 BP 109/72 11/22/23 00:41 Pulse Ox 99 11/22/23 00:41 Course Vital Signs Vital signs: Vital Signs Temperature 97.9 F 11/21/23 16:20 Pulse Rate 84 11/21/23 16:20 Respiratory Rate 18 11/21/23 16:20 Blood Pressure 130/102 H 11/21/23 16:20 Pulse Oximetry 100 11/21/23 16:20 Temperature 97.9 F 11/21/23 16:20 Pulse Rate 100 H 11/22/23 00:41 Respiratory Rate 18 11/21/23 16:20 Blood Pressure 109/72 11/22/23 00:41 Pulse Oximetry 99 11/22/23 00:41 MDM - Psych MDM Narrative Medical decision making narrative: The patient had a blood workup ordered awaiting assessment she is also evaluated by [facility]'s psychiatric evaluation The patient care awaiting [facility]'s psychiatric's assessment is transferred to Dr. Schulte care transferred at change of shift. labs were performed and patient accepted at [facility] patient psych treatment Lab Data Labs: Lab Results 11/21/23 11/21/23 Range/Units 19:15 20:53 WBC 6.4 (4.0-11.0) 10^3/uL RBC 4.59 (4.20-5.40) 10^6/uL Hgb 13.9 (12.0-16.0) g/dL Hct 41.0 (36.0-48.0) % MCV 89.3 (81.0-99.0) fL MCH 30.3 (26.7-34.0) pg MCHC 33.9 (29.9-35.2) g/dL RDW 13.5 (11.0-15.0) % Plt Count 325 (150-450) 10^3/uL MPV 9.8 (9.5-13.5) fL Neut % (Auto) 37.8 L (43.0-75.0) % Lymph % (Auto) 54.6 (20.5-60.0) % Spink % (Auto) 6.4 (1.7-12.0) % Eos % (Auto) 0.6 L (0.9-7.0) % Baso % (Auto) 0.3 (0.2-2.0) % Neut # (Auto) 2.4 (1.4-6.5) 10^3/uL Lymph # (Auto) 3.5 (1.2-3.8) 10^3/uL Spink # (Auto) 0.4 (0.3-0.8) 10^3/uL Eos # (Auto) 0.0 (0.0-0.7) 10^3/uL Baso # (Auto) 0.0 (0.0-0.1) 10^3/uL Abs Immat Gran (auto) 0.02 (0.00-0.03) 10^3/uL Imm/Tot Granulo (auto) 0.3 (0.0-0.5) % Sodium 145 (136-145) mmol/L Potassium 3.0 L (3.5-5.1) mmol/L Chloride 106 (98-107) mmol/L Carbon Dioxide 26.6 (21.0-32.0) mmol/L Anion Gap 15.4 BUN 11.0 (7.0-18.0) mg/dL Creatinine 0.67 (0.55-1.02) mg/dL Est GFR ( Amer) >60 (>=60) Est GFR (Non-Af Amer) >60 (>=60) BUN/Creatinine Ratio 16.4 Glucose 106 (74-106) mg/dL Calcium 9.5 (8.5-10.1) mg/dL Total Bilirubin 0.3 (0.2-1.0) mg/dL AST 18 (15-37) U/L ALT 29 (14-59) U/L Alkaline Phosphatase 56 (46-116) U/L Total Creatine Kinase 73 (26-192) U/L Total Protein 8.2 (6.4-8.2) g/dL Albumin 3.9 (3.4-5.0) g/dL Globulin 4.3 g/dL Albumin/Globulin Ratio 0.9 Serum HCG, Qual Negative (NEGATIVE) Salicylates 6.5 (<=19.9) mg/dL Urine Opiates Screen Negative (NEGATIVE) Ur Buprenorphine Scrn Positive A (NEGATIVE) Ur Oxycodone Screen Negative (NEGATIVE) Urine Methadone Screen Negative (NEGATIVE) Acetaminophen <2.0 L (10.0-30.0) ug/mL Ur Barbiturates Screen Negative (NEGATIVE) U Tricyclic Antidepress Negative (NEGATIVE) Ur Phencyclidine Scrn Negative (NEGATIVE) Ur Amphetamines Screen Negative (NEGATIVE) U Methamphetamines Scrn Negative (NEGATIVE) U Benzodiazepines Scrn Negative (NEGATIVE) Urine Cocaine Screen Positive A (NEGATIVE) U Cannabinoids Screen Negative (NEGATIVE) Ethanol Quant <3 mg/dL Discharge Plan Discharge Chief Complaint: Psychiatric Symptoms Clinical Impression: Drug abuse, Anxiety Patient Disposition: [facility] Hospital Discharge Date/Time: 11/22/23 01:21
--- NOTE | 2023-11-21 18:30 | PC.NURSE ---
pt eating meal tray at this time. encouraged to give urine sample at this time.
[2023-11-21 19:19] VITALS: BP 135/88; PULSE 110; O2SAT 97
[2023-11-21 19:34] LABS: Amphetamine Screen Urine NEGATIVE (NEGATIVE); Barbiturates Screen Urine NEGATIVE (NEGATIVE); Benzodiazepines Screen Urine NEGATIVE (NEGATIVE); Buprenorphine Screen Urine POSITIVE (NEGATIVE); Cannabinoid Screen Urine NEGATIVE (NEGATIVE); Cocaine Screen Urine POSITIVE (NEGATIVE); Methadone Screen Urine NEGATIVE (NEGATIVE); Methamphetamines Screen Urine NEGATIVE (NEGATIVE); Opiate Screen Urine NEGATIVE (NEGATIVE); Oxycodone Screen Urine NEGATIVE (NEGATIVE); Phencyclidine Screen Urine NEGATIVE (NEGATIVE); Tricyclic Antidepressant Urine NEGATIVE (NEGATIVE)
[2023-11-21 21:01] LABS: Eosinophils Percent Auto 0.6 % (0.9-7.0); Hemoglobin 13.9 g/dL (12.0-16.0); Lymphocytes Percent Auto 54.6 % (20.5-60.0); Mean Corpuscular HGB Conc 33.9 g/dL (29.9-35.2); Mean Corpuscular Hemoglobin 30.3 pg (26.7-34.0); Mean Corpuscular Volume 89.3 fL (81.0-99.0); Mean Platelet Volume 9.8 fL (9.5-13.5); Monocytes Percent Auto 6.4 % (1.7-12.0); Neutrophils Percent Auto 37.8 % (43.0-75.0); Platelet Count 325 10^3/uL (150-450); Red Blood Count 4.59 10^6/uL (4.20-5.40); Red Cell Distribution Width 13.5 % (11.0-15.0); White Blood Count 6.4 10^3/uL (4.0-11.0)
[2023-11-21 21:02] LABS: Basophils Percent Auto 0.3 % (0.2-2.0); Immature Granulocytes Abs Auto 0.02 10^3/uL (0.00-0.03); Immature Granulocytes Pct Auto 0.3 % (0.0-0.5); Lymphocytes Absolute Auto 3.5 10^3/uL (1.2-3.8); Monocytes Absolute Auto 0.4 10^3/uL (0.3-0.8); Neutrophils Absolute Auto 2.4 10^3/uL (1.4-6.5)
[2023-11-21 21:22] LABS: Salicylate 6.5 mg/dL (<=19.9)
[2023-11-21 21:23] LABS: Creatine Kinase 73 U/L (26-192)
[2023-11-21 21:24] LABS: Alanine Aminotransferase 29 U/L (14-59); Albumin Globulin Ratio 0.9; Albumin Level 3.9 g/dL (3.4-5.0); Alkaline Phosphatase 56 U/L (46-116); Anion Gap 15.4; Aspartate Amino Transferase 18 U/L (15-37); BUN Creatinine Ratio 16.4; Bilirubin Total 0.3 mg/dL (0.2-1.0); Calcium 9.5 mg/dL (8.5-10.1); Carbon Dioxide 26.6 mmol/L (21.0-32.0); Chloride 106 mmol/L (98-107); Estimated GFR (African America >60 (>=60); Estimated GFR (Non-African Ame >60 (>=60); Ethanol <3 mg/dL; Globulin 4.3 g/dL; Glucose 106 mg/dL (74-106); Sodium 145 mmol/L (136-145); Total Protein 8.2 g/dL (6.4-8.2)
[2023-11-21 21:34] LABS: Acetaminophen <2.0 ug/mL (10.0-30.0)
[2023-11-21 21:35] LABS: HCG Qualitative NEGATIVE (NEGATIVE)
[2023-11-21 21:55] VITALS: BP 126/87; PULSE 92; O2SAT 100
[2023-11-21 22:48] VITALS: BP 125/89; PULSE 105; O2SAT 100
[2023-11-21] MEDS: PREGABALIN 100 MG CAPSULE PO (22:48)
[2023-11-21] MEDS: DULOXETINE HCL 60 MG CAPSULE.DR PO (22:48)
[2023-11-21 23:40] VITALS: BP 110/72; PULSE 102; O2SAT 98
[2023-11-22 00:41] VITALS: BP 109/72; PULSE 100; O2SAT 99
== END 2023-11-22 01:21 ==
PROVIDERS: Emergency Medicine; Emergency Provider Internal Medicine; PCP Nurse Practitioner Family
DX: F41.9 Anxiety disorder, unspecified (principal); F19.10 Other psychoactive substance abuse, uncomplicated; Z79.899 Other long term (current) drug therapy; F17.210 Nicotine dependence, cigarettes, uncomplicated; Z91.148 Patient's other noncompliance with medication regimen for other reason
CPT/HCPCS: 36415; 80053; 80179; 80307; 80320; 80329; 82550; 84703; 85025; 99285

== ENCOUNTER 2023-11-24 18:36 | Emergency (ER) | payer OTHER, SELFPAY ==
[2023-11-24 18:41] VITALS: BP 128/73; PULSE 90; RESP 16; TEMP 36.8; O2SAT 100; BMI 23.3
--- OUTSIDE RECORDS SUMMARY | 2023-11-24 18:51 | XMS_ITS | CCD ---
Author Name Unknown Address [address] [place] [address] Organization [facility] Care Team Providers Care Data Coordinator Name Role Phone LUCAS HOFFMANN Primary Care Unavailable JETHRO MOONEY Attending Unavailable Unavailable Primary Care Provider UnavailCAROL Schulz Referring Unavailable PARINJA, ADDIE Attending Unavailable PARINJA, ADDIE Admitting Unavailable TEAGAN, RAÚL S Consulting Unavailable HUSSEIN LIAO Consulting Unavailable KRYSTAL NEWMAN Consulting Unavailable PARINJA, ADDIE Admitting Unavailable PARINJA, ADDIE Attending Unavailable TEAGAN, RAÚL S Consulting Unavailable NANCY RODRIGUEZ Primary Care Physician Jeanan Medina Unavailable Unavailable DO Rachael Reyes Emergency Provider [phone] ERNESTINE Rodriguez Primary Care Provider [phone] Cris PENA Primary Care Physician [phone] DO Rachael Reyes Emergency Provider RUIZ Pena Primary Care Provider [phone] DO Nito Walton Emergency Provider [phone] DO Rachael Reyes Emergency Provider CHOLO PenaN Cris Primary Care Provider DO Nito Walton Emergency Provider [phone] DO Carol Moses Emergency Provider MD Bobo Shields Admit Provider [phone] MD Bobo Shields Attending Provider MISC, DR [...] MISC, DR AGARWAL Primary Care Unavailable VIVIAN MACHDAO Admitting Unavailable VIVIAN MACHADO Attending Unavailable CARTER, VIVIAN Consulting Unavailable ALBINA BRODERICK Consulting Unavailable NEWATIA, ISAC Consulting Unavailable MISC, DR AGARWAL Primary Care Unavailable DIAB ., ANUP Admitting Unavailable DIAB ., ANUP Attending Unavailable SOPHY, DR STACI Medina Attending Unavailable SOPHY, DR STACI Medina Consulting Unavailable MISC, DR AGARWAL Primary Care Unavailable SOPHY, DR STACI Medina Admitting Unavailable EZIO GARCIA Consulting UnavailALBINA [place] Consulting Unavailable MD Farhad Landon Emergency Provider [phone] Mireille Cheatham APRN.CNP Primary Care Provider CHOLO PenaApoorva Lynch Primary Care Provider DO Leonard Salazar Emergency Provider DO Rachael Reyes Emergency Provider [phone] NON STAFF Primary Care Provider UnavailJOSE Burns Emergency Provider Unavailable Primary Care Provider UnavailMIREILLE Diaz Referring Unavailable LINDEN, MIREILLE Primary Care Unavailable ISACC REDMOND Attending Unavailable DO Rachael Reyes Emergency Provider [phone] MD Luis Armando Hendrix Emergency Provider GHASSAN CARRASCO Attending Unava TRACE Patrick Primary Care UnaMD Won Yanesmi Admit Provider MD Bobo Shields Attending Provider LADI KOCH Attending Unavailable MUHA, MIREILLE Referring Unavailable MUHA, MIREILLE Primary Care Unavailable MUHA, MIREILLE Attending Unavailable MUHA, MIREILLE Referring Unavailable MUHA, MIREILLE Primary Care Unavailable CHUCK GALINDO Attending Unavailable MUHA, MIREILLE Primary Care Unavailable MUHA, MIREILLE Attending Unavailable NON STAFF Primary Care Provider Unavailabl e MD Bobo Shields Admit Provider MD Bobo Shields Attending Provider RUIZ Pena Primary Care Provider DO Rachael Reyes Emergency Provider RUIZ Pena Cris Primary Care Provider [phone] MD Claudio Dee Attending Provider MD Chucky Dueñas Jr Emergency Provider MD Won Shieldsmi Admit Provider MD Bobo Shields Attending Provider Jean Cris Primary Care Unavailable Rachael Reyes Attending Unavailable Rachael Reyes Admitting Unavailable Robuck, Cris Primary Care Unavailable Rachael Reyes Attending Unavailable Rachael Reyes Admitting Unavailable Tara Deean Attending Unavailab le Whit Deerahman Admitting Unavailab le Robuck, Cris Primary Care Unavailable Robuck, Cris Primary Care Unavailable Rachael Reyes Attending Unavailable Rachael Reyes Admitting Unavailable Robuck, Cris Primary Care Unavailable Leonard Salazar Attending Unavailable Leonard Salazar Admitting Unavailable Robuck, Cris Primary Care Unavailable Rachael Reyes Attending Unavailable Rachael Reyes Admitting Unavailable Bobo Shields Admitting Unavailable Cornelius, Bobo Attending Unavailable Robuck, [...] Hendrix Consulting Unavailable Cora Dumont Consulting Unavailable Clarisa Oneal Consulting Unavailable Jose Santoyo Consulting Unavailable Lizzette Tripp Consulting Unavailable Maverick Lopez Consulting Unavailable Lucila Blanton Consulting Unavailable Luis Armando Hendrix Attending Unavailable Luis Armando Hendrix Admitting Unavailable NON STAFF Primary Care Unavailable NON STAFF Primary Care Unavailable Rachael Reyes Attending Unavailable Rachael Reyes Admitting Unavailable Eriberto Sheppard Admitting Unavailable Eriberto Sheppard Attending Unavailable NON STAFF Primary Care Unavailable Nito Walton Attending Unavailable Nito Walton Admitting Unavailable Robuck, Cris Primary Care Unavailable Robuck, Cris Primary Care Unavailable Rachael Reyes Attending Unavailable Rachael Reyes Admitting Unavailable Farhad Landon Admitting Unavailable Robuck, Cris Primary Care Unavailable Farhad Landon Attending Unavailable Cris PENA Attending Unavailable Heather Valenzuela Attending Unavailable Christian Locke Attending Unavailable Zahraa Connors Attending Unavailable Jacqueline Marquez Attending Unavailable Norma Dietz Attending Unavailable Norma Dietz Attending Unavailable Derrell Orantes Attending Unavailable Christian Locke Attending Unavailable Derrell Orantes Attending Unavailable Cris PENA Attending Unavailable Derrell Orantes Attending Unavailable NANCY RODRIGUEZ Attending Unavailable JEAN, Cris E Attending Unavailable ROBRONALDO, Cris E Attending Unavailable ROBRONALDO, Cris E Attending Unavailable ROBRONALDO, Cris E Attending Unavailable JEAN, Cris E Attending Unavailable JEAN Cris E Attending Unavailable Medications Current Medications Medication Drug Class(es) Dates Sig (Normalized) Sig (Original) albuterol 0.83 mg/ml inhalation solution (20 sources) beta2-Adrenergic Agonist Start: 10-02-2022 take 2.5 mg by inhalation every six hours for wheezing albuterol 0.083% Inh Vera 3 mL 2.5 mg, 3 mL, Inhalation, q6hr for wheezing, 60 EA, Refill(s) 1, [facility] #[id number], 167, cm, 10/02/22 14:11:00 EST, Height/Length Dosing, [...] q6hr for wheezing, 60 EA, Refill(s) 1, [facility] #[id number], 165, cm, 11/01/21 14:58:00 EST, Height/Length Dosing, [...] daily Atomoxetine Active 25 MG PO Daily October 21, 2023 12:00am 120 actuat budesonide 0.18 mg/actuat dry powder inhaler (5 sources) Corticosteroid Start: 10-02-2022 Pulmicort Flexhaler 180 mcg/inh Powder = 2 inh, Inhalation, BID, # 1 EA, Refills(s) 10, Pharmacy: [facility] #[id number], 167, cm, 10/02/22 14:11:00 EST, Height/Length Dosing, 70, kg, 10/02/22 14:11:00 EST, Weight Dosing Start Date: 10/02/22 Status: Ordered Start: 04-22-2022 Pulmicort Flex haler 180 mcg/inh Powder = 2 inh, Inhalation, BID, # 1 EA, Refills(s) 10, Pharmacy: [facility] #[id number], 165, cm, 11/01/21 14:58:00 EST, Height/Length Dosing, [...] day(s), # 14 cap(s), Refills(s) 0, [id number], 165, cm, 04/24/22 13:10:00 EDT, Height/Length Dosing, [...] 2023 12:00am Start: 12-08-2019 End: 07-17-2020 take 63814 [IU] by mouth every week Ergocalciferol (Vitamin D2) Discontinued 99609 UNIT PO every week December 08, 2019 12:00am July 17, 2020 10:04pm Start: 11-07-2019 End: 12-08-2019 take 84879 [IU] by mouth every week Ergocalciferol (Vitamin D2) Discontinued 21960 UNIT PO every week November 07, 2019 12:00am December 08, 2019 1:42pm on Start: 11-07-2019 End: 12-08-2019 take 66307 [IU] by mouth every week Ergocalciferol (Vitamin D2) Discontinued 67479 UNIT PO every week November 07, 2019 1:00am December 08, 2019 2:42pm on Start: 11-03-2019 End: 11-07-2019 Ergocalciferol (Vitamin D2) Discontinued 57968 UNIT PO Th@0900 November 03, 2019 12:00am November 07, 2019 2:44pm Start: 11-03-2019 End: 11-07-2019 Ergocalciferol (Vitamin D2) Discontinued 38593 UNIT PO Th@0900 November 03, 2019 1:00am [...] Oxcarbazepine Active 300 MG PO Twice daily 30 October 21, 2023 12:00am pregabalin 100 mg [...] wo(2) times daily. Take 1 capsule by mo [facility] three times daily for 30 days. Take 1 capsule by mo [facility] three times daily for 90 days. Take 1 capsule by mo [facility] three times a day for 30 days. promethazine hydrochloride 25 mg oral tablet (4 sources) Phenothiazine Start: 12-22-19 take 1 tablet by mouth every four hours as needed for nausea promethazine 25 mg Tab 25 mg = 1 tab(s), Oral, q4hr, PRN for nausea/vomiting, # 30 tab(s), Refills(s) 0, Pharmacy: [id number], 165, cm, 12/22/19 13:50:00 EDT, Height/Length [...] BID, # 60 tab(s), Refills(s) 3, Pharmacy: [facility] #[id number], 165, cm, 11/01/21 14:58:00 EST, Height/Length Dosing, [...] puff(s), Inhalation, QID, 1 EA, Refill(s) 1, [id number], 167, cm, 10/02/22 14:11:00 EST, Height/Length Dosing, 70, kg, 10/02/22 14:11:00 EST, Weight Dosing Start Date: 10/02/22 Status: Ordered Start: 01-20-2022 take 1 dose by inhal ation four times daily albuterol HFA 90 mcg/inh MDI 2 puff(s), Inhalation, QID, 1 EA, Refill(s) 1, [facility] #[id number], 165, cm, 11/01/21 14:58:00 EST, Height/Length [...] supply, # 60 tab(s), Refills(s) 0, Pharmacy: [facility] #[id number], 167, cm, 11/06/22 14:42:00 EST, Height/Length Dosing, 68.2, kg, 11/06/22 14:42:00 EST, Weight Dosing Start Date: 11/06/22 Status: Ordered Start: 10-10-2022 End: 10-17-2022 take 1 tablet by mouth three times daily amphetamine-dextroamphetamine 10 mg oral tablet 10 mg, 1 tab(s), Oral, TID for 7 day(s), 21 tab(s), Refill(s) 0, [id number], 167, cm, 10/10/22 12:48:00 EST, Height/Length Dosing, 72.9, kg, 10/10/22 12:48:00 EST, Weight Dosing Start Date: 10/10/22 Stop Date: 10/17/22 Status: Ordered Start: 01-17-2019 End: 01-20-2019 take 30 mg by mouth twice daily Dextroamphetamine-Amphetamine Discontinu ed 30 MG PO Twice daily January 16, 2019 11:00pm January 20, 2019 5:01pm Comment on above: Take 2 tablets by mo [facility] twice daily for 30 days. Take 10 mg by mouth. Take 1 tablet by [place] twice daily. [facility]. ARIPiprazole 5 [...] Clonazepam Active 0.5 MG PO Twice daily July 13, 2023 8:42am Start: 06-18-2023 End: [...] mg/ml extended release suspension (14 sources) Uncompetitive W-jsjroi-T-aspartate Receptor Antagonist, Sigma-1 Agonist Start: 022 End: [...] day, # 150 cap(s), Refills(s) 2, Pharmacy: [facility] #[id number], 167, cm, 11/06/22 14:42:00 EST, Height/Length Dosing, 68.2, kg, 11/06/22 14:42:00 EST, Weight Dosing Start Date: 11/06/22 Status: Ordered Start: 10-02-2022 gabapentin 400 mg Cap See Instructions, 1 cap(s) Oral 5 x per day, # 150 cap(s), Refills(s) 2, Pharmacy: [facility] #[id number], 167, cm, 10/02/22 14:11:00 EST, Height/Length Dosing, 70, kg, 10/02/22 14:11:00 EST, Weight Dosing Start Date: 10/02/22 Status: Ordered Start: 02-28-2022 End: 05-29-2022 take 1 tablet by mouth four times daily gabapentin 600 mg Tab 600 mg = 1 tab(s), Oral, QID, X 30 day(s), # 120 tab(s), Refills(s) 2, Pharmacy: [id number], 165, cm, 11/01/21 14:58:00 EST, Height/Length [...] (7 sources) Typical Antipsychotic Start: 3 End: 3 take 5 mg by mouth twice daily [...] anxiety, # 200 mL, Refills(s) 3, Pharmacy: [facility] #[id number], 167, cm, 11/06/22 14:42:00 EST, Height/Length Dosing, 68.2, kg, 11/06/22 14:42:00 EST, Weight Dosing Start Date: 11/06/22 Status: Ordered Start: 04-22-2022 take 1 capsule by mo ut three times daily Vistaril 50 mg Cap 50 mg = 1 cap(s), Oral, TID, # 90 cap(s), Refills(s) 1, Pharmacy: [facility] #[id number], 165, cm, 11/01/21 14:58:00 EST, Height/Length Dosing, [...] Discontinued 15 MG PO Daily at bedtime 30 December 08, 2019 12:00am March 02, [...] 07/18/2020 Discontinued (LIST CLEANUP) polyethylene glycol 3350 83643 mg powder for oral solution (20 sources) [...] MG PO Daily August 08, 2022 11:00pm February 9th, 2023 4:20pm administer with food or milk psyllium [...] Discontinued 1000 MG PO Daily at bedtime 60 July 12, 2023 11:00pm October 09, [...] Discontinued 1000 MG PO Daily at bedtime March 01, 2020 11:00pm January 25, 2021 [...] 10-26-2019 Episodic Other aftercare (1 source) Other ocean transportation intermediary (current) drug therapy; Translations: [OTH JAIL CURRENT DRUG THERAPY] Onset: 12-17-2022 Episodic Other [...] [PROC AND TX NOT CARRIED OUT PT [facility] RSN] Onset: 01-13-2023 Episodic Residual codes; unclassified [...] Comment on above: pt. was recently in [facility] 2 weeks ago for attempted [...] Results Test Name Value Interpretation Reference Range Facility ED Note-Physicianon 11-05-19 ED Note-Physician [id number] .00TIFF [facility] Consultation Noteon 10-20-19 Consultation Note [id number]. 00TIFF Normal [facility] Aerobic Cultureon 10-16-2023 Aerobic Culture Moderate Normal Respiratory Lanny 2 Days Gram Stain Result 2+ Epithelial Cells 2+ White Blood Cells Rare Gram Positive Bacilli PERFORMED BY: [place] [address] PATHOLOGIST INTEGRATION TECHNICIAN DANYELL LIVINGSTON M.D. [facility] Comment on above: Performed By: #### U HCG, URDS, ADDONUAPLUS, CUU #### [facility] [address] [place] [address] Aerobic cultureOrdered By: Cesia Abdi on 10-16-2023 Bacteria identified Aer cx Nom (Unsp spec) 2 Days [facility] Gram Stainon 10-16-2023 Microscopic observation Gram stain Nom (Unsp spec) Gram Stain Result 2+ Epithelial Cells 2+ White Blood Cells Rare Gram Positive Bacilli PERFORMED BY: [place] [address] PATHOLOGIST INTEGRATION TECHNICIAN DANYELL LIVINGSTON M.D. [facility] Comment on above: Performed By: #### U HCG, URDS, ADDONUAPLUS, CUU #### [facility] [address] [place] [address] Gram stain for investigation of transfusion reactionOrdered By: Darlin Martin on 10-16-2023 Microscopic observation Gram stain Nom (Unsp spec) [facility] Urinalysison 10-16-2023 Appearance (U) Clear Normal Clear [facility] Comment on above: Order Comment: Comme nt use er lab draw Performed By: #### L IPID, [id number], TSH3 wRFLX #### [facility] [address] [place] [address] [place] Bilirubin,Urine Negative Normal Negative [facility] Comment on above: Order Comment: Comme nt use er lab draw Performed By: #### L IPID, [id number], TSH3 wRFLX #### [facility] [address] [place], [place] [id number] [place] Glucose Ql (U) Normal Normal Normal [facility] Comment on above: Order Comment: Comme nt use er lab draw Performed By: #### L IPID, [id number], TSH3 wRFLX #### [facility] [address] [place] [address] [place] Ketones Ql (U) Negative Normal Negative [facility] Comment on above: Order Comment: Comme nt use er lab draw Performed By: #### L IPID, [id number], TSH3 wRFLX #### [facility] [address] Leukocyte esterase Test strip Ql (U) Negative Normal Negative [facility] Comment on above: Order Comment: Comme nt use er lab draw Performed By: #### L IPID, [id number], TSH3 wRFLX #### [facility] [address] [place] [address] [place] Nitrite,Urine Negative Normal Negative [facility] Comment on above: Order Comment: Comme nt use er lab draw Performed By: #### L IPID, [id number], TSH3 wRFLX #### [facility] [address] [place] [address] [place] Occult Blood,Urine Negative Normal Negative [facility] Comment on above: Order Comment: Comme nt use er lab draw Result Comment: PERF ORMED BY: [place] [address] PATHOLOGIST INTEGRATION TECHNICIAN DANYELL LIVINGSTON M.D. Performed By: #### L IPID, [id number], TSH3 wRFLX #### [facility] [address] [place] [address] [place] Protein,Urine Negative Normal Negative [facility] Comment on above: Order Comment: Comme nt use er lab draw Performed By: #### L IPID, [id number], TSH3 wRFLX #### [facility] [address] [place] [address] [place] Specificy [place],Urine 1.017 Normal 1.001-1.030 [facility] Comment on above: Order Comment: Comme nt use er lab draw Performed By: #### L IPID, [id number], TSH3 wRFLX #### [facility] [address] [place] [address] [place] Urobilinogen,Urine Normal Normal Normal [facility] Comment on above: Order Comment: Comme nt use er lab draw Performed By: #### L IPID, [id number], TSH3 wRFLX #### [facility] [address] [place] [address] [place] Automated urine color determ inationOrdered By: Darlin Abdi on 10-15-2023 Color (U) Yellow Normal Yellow [facility] Comment on above: Order Comment: Comme nt use er lab draw Performed By: #### L IPID, [id number], TSH3 wRFLX #### [facility] [address] Bilirubin Test strip Ql (U)O rdered By: Darlin Abdi on 10-15-2023 Bilirubin Ql (U) Negative Negative [facility] Ketones Auto test strip (U) [Mass/Vol]Ordered By: Darlin Abdi on 10-15-2023 Ketones (U) [Mass/Vol] Negative Negative [facility] [place] [facility] Nitrite Test strip Ql (U)Ord ered By: Darlin Abid on 10-15-2023 Nitrite Ql (U) Negative Negative [facility] Protein Auto test strip (U) [Mass/Vol]Ordered By: Darlin Abdi on 10-15-2023 Protein (U) [Mass/Vol] Negative Negative [facility] [place] [facility] Specific gravity Auto test s trip (U) [Rel density]Ordered By: Darlin Martin on 10-15-2023 Specific gravity (U) [Rel density] 1.017 1.001-1.030 [facility] Urine clarity by refractomet ry automatedOrdered By: Darlin Abdi on 10-15-2023 Clarity Refractometry automated (U) Clear Clear [facility] Urine glucose measurement by automated test strip (mass/volume)Ordered By: Darlin Abdi on 10-15-2023 Glucose Auto test strip (U) [Mass/Vol] Normal mg/dL Normal [facility] Urine hemoglobin detection b y automated test stripOrdered By: Darlin Martin on 10-15-2023 Hemoglobin Auto test strip Ql (U) Negative Negative [facility] Urine leukocyte esterase det ection by automated test stripOrdered By: Darlin Abdi on 10-15-2023 Leukocyte esterase Auto test strip Ql (U) Negative Negative [facility] Urine pH measurement by auto mated test stripOrdered By: Darlin Abdi on 10-15-2023 pH (U) 6.5 [pH] Normal 5.0-9.0 [facility] Comment on above: Order Comment: Comme nt use er lab draw Performed By: #### L IPID, [id number], TSH3 wRFLX #### [address] Urobilinogen Auto test strip (U) [Mass/Vol]Ordered By: Darlin Abdi on 10-15-2023 Urobilinogen (U) [Mass/Vol] Normal mg/dL Normal [facility] XR chest 2V*on 10-15-2023 XR chest 2V* [facility] [place] [address] [place] [address] XRay Report Signed Patient: Lorna Deutsch MR#: [id number] 98 : 1985 Acct:[id number] Age/Sex: 38 / F ADM Date: 10/09/23 Loc: Room: [address] [place] [address] Type: ADM IN Attending Dr: Bobo Shields [...] Viviana Bui M.D.10/15/2023 5:44 PM Dictation Location: [place] [address] Transcribed By: [facility] 10/15/231743 Dictated By: Viviana Bui MD 10/15/231742 Signed By: 10/15/231743 Normal [facility] Acetaminophenon 10-09-2023 Acetaminophen [Mass/Vol] 0.1 ug/mL Low 10.0-30.0 [facility] Comment on above: Performed By: #### L IPID, [id number], TSH3 wRFLX #### [address] Ammoniaon 10-09-2023 Ammonia (P) [Moles/Vol] 27 umol/L Normal 11-35 F [facility] Comment on above: Result Comment: PERF ORMED BY: [place] [address] PATHOLOGIST INTEGRATION TECHNICIAN DANYELL LIVINGSTON M.D. Performed By: #### L IPID, [id number], TSH3 wRFLX #### [address] ECG 12 lead ECGon 10-09-2023 ECG 12 lead ECG [facility] [place] [address] [place] [address] Electrocardiograph Report Signed Patient: Lorna Deutsch MR#: [id number] [birth year] : 1985 Acct:[id number] Age/Sex: 38 / F ADM Date: 10/09/23 Loc: Room: [address] [place] [address] Type: ADM IN Attending Dr: Bobo Shields [...] MUS Signed By Amaya Carbajal DO 10/11 1555 Normal [facility] Salicylateon 10-09-2023 Salicylate < 1.5 Low 15.0-30.0 [facility] Comment on above: Result Comment: Sonia ents treated with Sulfasalazine may generate a false high result for Salicylate. Performed By: #### L IPID, [id number], TSH3 wRFLX #### [facility] [address] Valproic Acid (in house)on 1 Valproic Acid (in house) < 4.0 Low 50.0-100.0 [facility] Comment on above: Result Comment: Last dose: - PERFORMED BY: [place] [address] PATHOLOGIST INTEGRATION TECHNICIAN DANYELL LIVINGSTON M.D. Performed By: #### L IPID, [id number], TSH3 wRFLX #### [facility] [address] Acetaminophen [Mass/volume] in Serum or PlasmaOrdered By: Chucky Dueñas on 10-08-2023 Acetaminophen [Mass/Vol] 0.1 ug/mL 10.0-30.0 [facility] Alanine aminotransferase [En zymatic activity/volume] in Serum or PlasmaOrdered By: Chucky Dueñas on 10-08-2023 ALT [Catalytic activity/Vol] 12 U/L [facility] Albumin [Mass/volume] in Ser um or Plasma by Bromocresol green (BCG) dye binding methoOrdered By: Chucky Dueñas on 10-08-2023 Albumin BCG dye [Mass/Vol] 3.9 g/dL 3.5-5.7 [facility] Alkaline phosphatase [Enzyma tic activity/volume] in Serum or PlasmaOrdered By: Chucky Dueñas on 10-08-2023 ALP [Catalytic activity/Vol] 57 U/L 34-104 [facility] Ammonia [Moles/volume] in Pl asmaOrdered By: Chucky Dueñas on 10-08-2023 Ammonia (P) [Moles/Vol] 27 umol/L 11-35 [facility] Amphetamine Screen Ql (U)Ord ered By: Chucky Dueñas on 10-08-2023 Amphetamines Ql (U) Positive Negative [facility] Aspartate aminotransferase [ Enzymatic activity/volume] in Serum or PlasmaOrdered By: Chucky Dueñas on 10-08-2023 AST [Catalytic activity/Vol] 16 U/L 13-39 [facility] Automated erythrocytes count in urine sediment (number/area)Ordered By: Chucky Dueñas on 10-08-2023 RBC Auto (Urine sed) [#/Area] 3-4 [HPF] 0-4 [facility] Automated leukocytes count i n urine sediment (number/area)Ordered By: Chucky Dueñas on 10-08-2023 WBC Auto (Urine sed) [#/Area] 10-19 [HPF] 0-4 [facility] Automated urine hyaline cast s count (number/volume)Ordered By: Chucky Dueñas on 10-08-2023 Hyaline casts Auto (U) [#/Vol] None seen [LPF] 0-1 [facility] Barbiturates [Presence] in U rine by Screen methodOrdered By: Chucky Dueñas on 10-08-2023 Barbiturates Screen Ql (U) Negative Negative [facility] Basophils Auto (Bld) [#/Vol] Ordered By: Chucky Dueñas on 10-08-2023 Basophils (Bld) [#/Vol] 0.1 10*3/uL 0.0-0.2 [facility] Basophils/100 WBC Auto (Bld) Ordered By: Chucky Dueñas on 10-08-2023 Basophils/100 WBC (Bld) 0.7 % . [facility] Benzodiazepines Screen Ql (U )Ordered By: Chucky Dueñas on 10-08-2023 Benzodiazepines Ql (U) Negative [facility] Benzoylecgonine [Presence] i n Urine by Screen methodOrdered By: Chucky Dueñas on 10-08-2023 Benzoylecgonine Screen Ql (U) Negative Negative [facility] Bilirubin Test strip Ql (U)O rdered By: Chucky Dueñas on 10-08-2023 Bilirubin Ql (U) 1+ Negative [facility] Bilirubin.total [Mass/volume ] in Serum or PlasmaOrdered By: Chucky Dueñas on 10-08-2023 Bilirubin [Mass/Vol] 0.3 mg/dL 0.3-1.0 [facility] Calcium [Mass/volume] in Ser um or PlasmaOrdered By: Chucky Dueñas on 10-08-2023 Calcium [Mass/Vol] 9.0 mg/dL 8.6-10.3 [facility] Cannabinoids [Presence] in U rine by Screen methodOrdered By: Chucky Dueñas on 10-08-2023 Cannabinoids Screen Ql (U) Negative Negative [facility] Comment on above: These are unconfirme d results and should not be used for legal purposes. Drug Cut-Off Concentration: AMPH 1000 ng/mL SARA 200 ng/mL MARTÍNEZ 200 ng/mL COCM 300 ng/mL OP 300 ng/mL PCP 25 ng/mL THC 20 ng/mL Carbon dioxide, total [Moles /volume] in Serum or PlasmaOrdered By: Chucky Dueñas on 10-08-2023 CO2 [Moles/Vol] 24.7 mmol/L 21.0-31.0 [facility] Casts typing in urine sedime nt by light microscopyOrdered By: Chucky Dueñas on 10-08-2023 Casts LM Nom (Urine sed) None seen [LPF] None Seen [facility] Chloride [Moles/volume] in S maris or PlasmaOrdered By: Chucky Dueñas on 10-08-2023 Chloride [Moles/Vol] 105 mmol/L 98-107 [facility] Cholesterol [Mass/volume] in Serum or PlasmaOrdered By: Bobo Shields on 10-08-2023 Cholesterol [Mass/Vol] 151 mg/dL 140-200 [facility] [place] [facility] Comment on above: Chol less than 200 m g/dl low riskChol 201-239 mg/dl borderline riskChol 240 mg/dl and greater high risk Cholesterol in LDL Calc [Mas s/Vol]Ordered By: Bobo Shields on 10-08-2023 Cholesterol in LDL [Mass/Vol] 87 mg/dL 0-100 [facility] Comment on above: LDL ATP III CLASSIFI CATIONLDL less than 100 mg/dL OptimalLDL 100-129 mg/dL Near or above optimalLDL 130-159 mg/dL Borderline highLDL 160-189 mg/dL HighLDL greater than 189 mg/dL Very high Cholesterol in VLDL Calc [Ma ss/Vol]Ordered By: Bobo Cornelius on 10-08-2023 Cholesterol in VLDL [Mass/Vol] 29 mg/dL [facility] Color Auto (U)Ordered By: Aries carrizalesnette Dueñas on 10-08-2023 Color (U) Dark yellow Yellow [facility] Complete Blood Count Auto Di ffon 10-08-2023 Basophils (Bld) [#/Vol] 0.1 10*3/uL Normal 0.0-0.2 [facility] Comment on above: Result Comment: PERF ORMED BY: [place] [address] PATHOLOGIST INTEGRATION TECHNICIAN DANYELL LIVINGSTON M.D. Performed By: #### U HCG, URDS, ADDONUAPLUS, CUU #### [facility] [address] [place] [address] Basophils/100 WBC (Bld) 0.7 % Normal . [facility] Comment on above: Performed By: #### U HCG, URDS, ADDONUAPLUS, CUU #### [facility] [address] [place] [address] [place] Eosinophils (Bld) [#/Vol] 0.0 10*3/uL Normal 0.0-0.45 [facility] Comment on above: Performed By: #### U HCG, URDS, ADDONUAPLUS, CUU #### [facility] [address] [place] [address] [place] Eosinophils/100 WBC (Bld) 0.3 % Normal . [facility] Comment on above: Performed By: #### U HCG, URDS, ADDONUAPLUS, CUU #### [facility] [address] [place] [address] Erythrocyte distribution width (RBC) [Ratio] 13.0 % Normal 11.9-15.3 [facility] Comment on above: Performed By: #### U HCG, URDS, ADDONUAPLUS, CUU #### [address] Hematocrit (Bld) [Volume fraction] 37.1 % Normal 34.0-46.4 [facility] Comment on above: Performed By: #### U HCG, URDS, ADDONUAPLUS, CUU #### [address] Hemoglobin (Bld) [Mass/Vol] 12.8 g/dL Normal 11.8-15.4 [facility] Comment on above: Performed By: #### U HCG, URDS, ADDONUAPLUS, CUU #### [address] Lymphocytes (Bld) [#/Vol] 3.7 10*3/uL Normal 1.00-4.8 [facility] Comment on above: Performed By: #### U HCG, URDS, ADDONUAPLUS, CUU #### [address] Lymphocytes/100 WBC (Bld) 38.7 % Normal . [facility] Comment on above: Performed By: #### U HCG, URDS, ADDONUAPLUS, CUU #### [address] MCH (RBC) [Entitic mass] 30.3 pg Normal 24.7-34.3 [facility] Comment on above: Performed By: #### U HCG, URDS, ADDONUAPLUS, CUU #### [address] MCV (RBC) [Entitic vol] 87.9 fL Normal 80-100 [facility] Comment on above: Performed By: #### U HCG, URDS, ADDONUAPLUS, CUU #### [address] Mean Corpuscular HGB Conc 34.5 g/dL Normal 32.0-35.0 [facility] Comment on above: Performed By: #### U HCG, URDS, ADDONUAPLUS, CUU #### [facility] [address] [place] [address] [place] Monocytes (Bld) [#/Vol] 0.6 10*3/uL Normal 0.0-0.8 [facility] Comment on above: Performed By: #### U HCG, URDS, ADDONUAPLUS, CUU #### [facility] [address] [place] [address] [place] Monocytes/100 WBC (Bld) 21.04 % High 0.00-20.00 [facility] Comment on above: Result Comment: For adults in ED, MDW > 20.0 may be associated with a higher risk of sepsis during the first 12 hrs of hospital admission Performed By: #### U HCG, URDS, ADDONUAPLUS, CUU #### [facility] [address] [place] [address] [place] Monocytes/100 WBC (Bld) 6.2 % Normal . [facility] Comment on above: Performed By: #### U HCG, URDS, ADDONUAPLUS, CUU #### [facility] [address] [place] [address] [place] Neutrophils (Bld) [#/Vol] 5.1 10*3/uL Normal 1.8-7.7 [facility] Comment on above: Performed By: #### U HCG, URDS, ADDONUAPLUS, CUU #### [facility] [address] [place] [address] [place] Neutrophils/100 WBC (Bld) 54.1 % Normal . [facility] Comment on above: Performed By: #### U HCG, URDS, ADDONUAPLUS, CUU #### [facility] [address] [place] [address] [place] NRBC% 0.2 /100{WBC} Normal 0-0.5 [facility] Comment on above: Performed By: #### U HCG, URDS, ADDONUAPLUS, CUU #### [facility] [address] Platelet mean volume (Bld) [Entitic vol] 8.6 fL Normal 6.3-10.7 [facility] Comment on above: Performed By: #### U HCG, URDS, ADDONUAPLUS, CUU #### [facility] [address] Platelets (Bld) [#/Vol] 371 10*3/uL Normal 150-450 [facility] Comment on above: Performed By: #### U HCG, URDS, ADDONUAPLUS, CUU #### [address] RBC (Bld) [#/Vol] 4.22 10*6/uL Normal 3.60-5.00 [facility] Comment on above: Performed By: #### U HCG, URDS, ADDONUAPLUS, CUU #### [address] WBC (Bld) [#/Vol] 9.5 10*3/uL Normal 3.8-11.6 [facility] Comment on above: Performed By: #### U HCG, URDS, ADDONUAPLUS, CUU #### [address] Comprehensive Metabolic Pane selam 10-08-2023 Albumin [Mass/Vol] 3.9 g/dL Normal 3.5-5.7 [facility] Comment on above: Performed By: #### U HCG, URDS, ADDONUAPLUS, CUU #### [address] Albumin/Globulin [Mass ratio] 1.1 {ratio} Normal [facility] Comment on above: Performed By: #### U HCG, URDS, ADDONUAPLUS, CUU #### [facility] [address] [place] [address] ALP [Catalytic activity/Vol] 57 U/L Normal 34-104 [facility] Comment on above: Performed By: #### U HCG, URDS, ADDONUAPLUS, CUU #### [address] ALT [Catalytic activity/Vol] 12 U/L Normal 7-52 [facility] Comment on above: Performed By: #### U HCG, URDS, ADDONUAPLUS, CUU #### [address] Anion gap [Moles/Vol] 10.1 mmol/L Normal 6.0-15.0 [facility] [place] [facility] Comment on above: Performed By: #### U HCG, URDS, ADDONUAPLUS, CUU #### [address] AST [Catalytic activity/Vol] 16 U/L Normal 13-39 [facility] Comment on above: Performed By: #### U HCG, URDS, ADDONUAPLUS, CUU #### [address] Bilirubin [Mass/Vol] 0.3 mg/dL Normal 0.3-1.0 [facility] Comment on above: Performed By: #### U HCG, URDS, ADDONUAPLUS, CUU #### [address] Calcium [Mass/Vol] 9.0 mg/dL Normal 8.6-10.3 [facility] Comment on above: Performed By: #### U HCG, URDS, ADDONUAPLUS, CUU #### [address] Chloride [Moles/Vol] 105 mmol/L Normal 98-107 [facility] Comment on above: Performed By: #### U HCG, URDS, ADDONUAPLUS, CUU #### [address] CO2 [Moles/Vol] 24.7 mmol/L Normal 21.0-31.0 [facility] Comment on above: Performed By: #### U HCG, URDS, ADDONUAPLUS, CUU #### [facility] [address] Creatinine [Mass/Vol] 0.78 mg/dL Normal 0.60-1.20 [facility] Comment on above: Performed By: #### U HCG, URDS, ADDONUAPLUS, CUU #### [facility] [address] [place] [address] [place] Creatinine Clr Calc Pharmacy 91.55 Normal [facility] Comment on above: Result Comment: PERF ORMED BY: [place] [address] PATHOLOGIST INTEGRATION TECHNICIAN DANYELL LIVINGSTON M.D. Performed By: #### U HCG, URDS, ADDONUAPLUS, CUU #### [address] GFR/1.73 sq M.predicted MDRD (S/P/Bld) [Vol rate/Area] mL/min/{1.73_m2} [facility] Comment on above: Performed By: #### U HCG, URDS, ADDONUAPLUS, CUU #### [facility] [address] [place] [address] Globulin (S) [Mass/Vol] 3.4 g/dL Normal [facility] Comment on above: Performed By: #### U HCG, URDS, ADDONUAPLUS, CUU #### [facility] [address] [place] [address] Glucose [Mass/Vol] 98 mg/dL Normal 70-100 [facility] Comment on above: Result Comment: [facility] Glucose Reference Range is dependent on time and content of last meal. Glucose of more than 200 mg/dL in a nonstressed, ambulatory subject supports the diagnosis of Diabetes Mellitus. ADA recommended reference range Performed By: #### U HCG, URDS, ADDONUAPLUS, CUU #### [facility] [address] [place] [address] Potassium [Moles/Vol] 3.8 mmol/L Normal 3.5-5.1 [facility] Comment on above: Performed By: #### U HCG, URDS, ADDONUAPLUS, CUU #### [facility] [address] [place] [address] [place] Protein [Mass/Vol] 7.3 g/dL Normal 6.4-8.9 [facility] Comment on above: Performed By: #### U HCG, URDS, ADDONUAPLUS, CUU #### [facility] [address] [place] [address] [place] Sodium [Moles/Vol] 136 mmol/L Normal 136-145 [facility] Comment on above: Performed By: #### U HCG, URDS, ADDONUAPLUS, CUU #### [address] Urea nitrogen [Mass/Vol] 12 mg/dL Normal 7-25 [facility] Comment on above: Performed By: #### U HCG, URDS, ADDONUAPLUS, CUU #### [place] [address] [place] Creatinine [Mass/volume] in Serum or PlasmaOrdered By: Chucky Dueñas on 10-08-2023 Creatinine [Mass/Vol] 0.78 mg/dL 0.60-1.20 [facility] Dipstick and Microscopicon 1 12-09-2022 Appearance (U) Turbid Critically abnormal Clear [facility] Comment on above: Order Comment: Comme nt use er lab draw Performed By: #### L IPID, [id number], TSH3 [id number] #### [facility] [address] [place] [address] [place] Bacteria,Urine 2+ High None Seen [facility] Comment on above: Order Comment: Comme nt use er lab draw Performed By: #### L IPID, [id number], TSH3 [id number] #### [facility] [address] [place] [address] [place] Bilirubin,Urine 1+ High Negative [facility] Comment on above: Order Comment: Comme nt use er lab draw Performed By: #### L IPID, [id number], TSH3 [id number] #### [place] [address] [place] Color (U) Dark Yellow Critically abnormal Yellow [facility] Comment on above: Order Comment: Comme nt use er lab draw Performed By: #### L IPID, [id number], TSH3 [id number] #### [facility] [address] [place] [address] [place] Glucose Ql (U) Normal Normal Normal [facility] Comment on above: Order Comment: Comme nt use er lab draw Performed By: #### L IPID, [id number], TSH3 [id number] #### [facility] [address] [place] [address] [place] Hyaline Casts,Urine None Seen Normal 0-1 [facility] Comment on above: Order Comment: Comme nt use er lab draw Performed By: #### L IPID, [id number], TSH3 wRFLX #### [facility] [address] [place] [address] [place] Ketones Ql (U) Trace High Negative [facility] Comment on above: Order Comment: Comme nt use er lab draw Performed By: #### L IPID, [id number], TSH3 wRFLX #### [facility] [address] [place] [address] [place] Leukocyte esterase Test strip Ql (U) 1+ High Negative [facility] Comment on above: Order Comment: Comme nt use er lab draw Performed By: #### L IPID, [id number], TSH3 wRFLX #### [facility] [address] [place] [address] [place] Nitrite,Urine Negative Normal Negative [facility] Comment on above: Order Comment: Comme nt use er lab draw Performed By: #### L IPID, [id number], TSH3 wRFLX #### [facility] [address] [place] [address] [place] Occult Blood,Urine 3+ High Negative [facility] Comment on above: Order Comment: Comme nt use er lab draw Performed By: #### L IPID, [id number], TSH3 wRFLX #### [facility] [address] [place] [address] [place] Other Casts,Urine None Seen Normal None Seen [facility] Comment on above: Order Comment: Comme nt use er lab draw Performed By: #### L IPID, [id number], TSH3 wRFLX #### [facility] [address] [place] [address] pH (U) 5.5 [pH] Normal 5.0-9.0 [facility] Comment on above: Order Comment: Comme nt use er lab draw Performed By: #### L IPID, [id number], TSH3 wRFLX #### [facility] [address] [place] [address] Protein (U) [Mass/Vol] 100 mg/dL High Negative [facility] [place] [facility] Comment on above: Order Comment: Comme nt use er lab draw Performed By: #### L IPID, [id number], TSH3 wRFLX #### [facility] [address] [place] [address] RBC,Urine 3-4 Normal 0-4 [facility] Comment on above: Order Comment: Comme nt use er lab draw Performed By: #### L IPID, [id number], TSH3 wRFLX #### [facility] [address] [place] [address] Specificy [place],Urine 1.036 High 1.001-1.030 [facility] Comment on above: Order Comment: Comme nt use er lab draw Performed By: #### L IPID, [id number], TSH3 wRFLX #### [facility] [address] [place] [address] [place] Squamous Epithelial Cell,Urine Innumerable High 0-2 [facility] Comment on above: Order Comment: Comme nt use er lab draw Performed By: #### L IPID, [id number], TSH3 wRFLX #### [facility] [address] [place] [address] [place] Urobilinogen,Urine Normal Normal Normal [facility] Comment on above: Order Comment: Comme nt use er lab draw Performed By: #### L IPID, [id number], TSH3 wRFLX #### [facility] [address] [place] [address] WBC,Urine 10-19 High 0-4 [facility] Comment on above: Order Comment: Comme nt use er lab draw Performed By: #### L IPID, [id number], TSH3 wRFLX #### [facility] [address] [place] [address] Yeast,Urine None Seen Normal None Seen [facility] Comment on above: Order Comment: Comme nt use er lab draw Performed By: #### L IPID, [id number], TSH3 wRFLX #### [facility] [address] [place] [address] [place] Drug Screen,Urineon 10-08-20 Amphetamine Screen,Urine Positive High Negative [facility] Comment on above: Performed By: #### L IPID, [id number], TSH3 wRFLX #### [facility] [address] [place] [address] Barbiturate Screen,Urine Negative Normal Negative [facility] Comment on above: Performed By: #### L IPID, [id number], TSH3 wRFLX #### [facility] [address] [place] [address] Benzodiazepines Screen,Urine Negative Normal Negative [facility] Comment on above: Performed By: #### L IPID, [id number], TSH3 wRFLX #### [facility] [address] [place] [address] Cannabinoid Screen,Urine Negative Normal Negative [facility] Comment on above: Result Comment: Thes e are unconfirmed results and should not be used for legal purposes. Drug Cut-Off Concentration: AMPH 1000 ng/mL SARA 200 ng/mL MARTÍNEZ 200 ng/mL COCM 300 ng/mL OP 300 ng/mL PCP 25 ng/mL THC 20 ng/mL PERFORMED BY: [place] [address] PATHOLOGIST INTEGRATION TECHNICIAN DANYELL LIVINGSTON M.D. Performed By: #### L IPID, [id number], TSH3 wRFLX #### [facility] [address] [place] [address] Cocaine Screen,Urine Negative Normal Negative [facility] Comment on above: Performed By: #### L IPID, [id number], TSH3 wRFLX #### [facility] [address] Opiate Screen,Urine Negative Normal Negative [facility] Comment on above: Performed By: #### L IPID, [id number], TSH3 wRFLX #### [facility] [address] Phencyclidine Screen,Urine Negative Normal Negative [facility] Comment on above: Performed By: #### L IPID, [id number], TSH3 wRFLX #### [facility] [address] Eosinophils Auto (Bld) [#/Vo l]Ordered By: Chucky Dueñas on 10-08-2023 Eosinophils (Bld) [#/Vol] 0.0 10*3/uL 0.0-0.45 [facility] Eosinophils/100 WBC Auto (Bl d)Ordered By: Chucky Dueñas on 10-08-2023 Eosinophils/100 WBC (Bld) 0.3 % . [facility] Erythrocyte distribution wid th Auto (RBC) [Ratio]Ordered By: Chucky Dueñas on 10-08-2023 Erythrocyte distribution width (RBC) [Ratio] 13.0 % 11.9-15.3 [facility] Ethanol [Mass/volume] in Ser um or PlasmaOrdered By: Chucky Dueñas on 10-08-2023 Ethanol [Mass/Vol] mg/dL [facility] Ethanol [Mass/Vol] TNP [facility] Comment on above: Test not performed Ethyl Alcohol Profileon 09-12 Ethanol [Mass/Vol] mg/dL Normal [facility] Comment on above: Performed By: #### U HCG, URDS, ADDONUAPLUS, CUU #### [facility] [address] Percent Ethanol Not performed Normal [facility] Comment on above: Result Comment: PERF ORMED BY: [facility] [address] [place] [address] PATHOLOGIST INTEGRATION TECHNICIAN DANYELL LIVINGSTON M.D. Performed By: #### U HCG, URDS, ADDONUAPLUS, CUU #### [facility] [address] [place] [address] Globulin Calc (S) [Mass/Vol] Ordered By: Chucky Dueñas on 10-08-2023 Globulin (S) [Mass/Vol] 3.4 g/dL [facility] Glucose [Mass/volume] in Ser um or PlasmaOrdered By: Chucky Dueñas on 10-08-2023 Glucose [Mass/Vol] 98 mg/dL 70-100 [facility] Comment on above: ADA recommended refe rence rangeRandom Glucose Reference Range is dependent on time and content of last meal. Glucose of more than 200 mg/dL in a nonstressed, ambulatory subject supports the diagnosis of Diabetes Mellitus. HCG ( test) [place].rapi d Ql (U)Ordered By: Chucky Dueñas on 10-08-2023 HCG ( test) Ql (U) Negative [facility] HCG,Urineon 10-08-2023 Beta HCG ( test) Ql (U) Negative Normal [facility] Comment on above: Order Comment: Comme nt use er lab draw Result Comment: PERF ORMED BY: [place] [address] PATHOLOGIST INTEGRATION TECHNICIAN DANYELL LIVINGSTON M.D. Performed By: #### L IPID, [id number], TSH3 wRFLX #### [facility] [address] [place], [place] [id number] [facility] Hematocrit Auto (Bld) [Volum e fraction]Ordered By: Chucky Dueñas on 10-08-2023 Hematocrit (Bld) [Volume fraction] 37.1 % 34.0-46.4 [facility] Hemoglobin [Mass/volume] in BloodOrdered By: Chucky Dueñas on 10-08-2023 Hemoglobin (Bld) [Mass/Vol] 12.8 g/dL 11.8-15.4 [facility] Ketones Auto test strip (U) [Mass/Vol]Ordered By: Chucky Dueñas on 10-08-2023 Ketones (U) [Mass/Vol] Trace Negative [facility] Leukocytes [#/volume] correc neema for nucleated erythrocytes in Blood by Automated counOrdered By: Chucky Dueñas on 10-08-2023 WBC corrected for nucl RBC Auto (Bld) [#/Vol] 9.5 10*3/uL 3.8-11.6 [facility] Lipid Panelon 10-08-2023 Cholesterol [Mass/Vol] 151 mg/dL Normal 140-200 [facility] Comment on above: Order Comment: Comme nt use er lab draw Result Comment: Chol less than 200 mg/dl low risk Chol 201-239 mg/dl borderline risk Chol 240 mg/dl and greater high risk Performed By: #### L IPID, [id number], TSH3 [id number] #### [facility] [address] [place] [id number] [facility] Cholesterol in HDL [Mass/Vol] 35 mg/dL Normal 23-92 [facility] Comment on above: Order Comment: Comme nt use er lab draw Result Comment: HDL CHOL ATP-III CLASSIFICATION Cardiovascular Risk HDL > or equal to 60 mg/dL LOW HDL < 40 mg/dL HIGH Performed By: #### L IPID, [id number], TSH3 wRFLX #### [facility] [address] [place] [address] [place] Cholesterol.total/Andra sterol in HDL [Mass ratio] 4.3 {ratio} Normal <5.0 [facility] Comment on above: Order Comment: Comme nt use er lab draw Performed By: #### L IPID, [id number], TSH3 wRFLX #### [facility] [address] [place] [address] [place] LDL Cholesterol,Calculated 87 mg/dL Normal 0-100 [facility] Comment on above: Order Comment: Comme nt use er lab draw Result Comment: LDL ATP III CLASSIFICATION LDL less than 100 mg/dL Optimal LDL 100-129 mg/dL Near or above optimal LDL 130-159 mg/dL Borderline high LDL 160-189 mg/dL High LDL greater than 189 mg/dL Very high Performed By: #### L IPID, [id number], TSH3 wRFLX #### [facility] [address] [place] [address] [place] Triglyceride w/Reflex 147 mg/dL Normal 0-149 [facility] Comment on above: Order Comment: Comme nt use er lab draw Result Comment: TRIG ATP III CLASSIFICATION TRIG less than 150 mg/dL Normal TRIG 150-199 mg/dL Borderline high TRIG 200-500 mg/dL High TRIG greater than 500 mg/dL Very high Standard traceable to the Center for Disease Conrtrol and Prevention (CDC) test method. Performed By: #### L IPID, [id number], TSH3 wRFLX #### [facility] [address] VLDL CHOLESTEROL 29 mg/dL Normal [facility] Comment on above: Order Comment: Comme nt use er lab draw Performed By: #### L IPID, [id number], TSH3 wRFLX #### [facility] [address] Lymphocytes Auto (Bld) [#/Vo l]Ordered By: Chucky Dueñas on 10-08-2023 Lymphocytes (Bld) [#/Vol] 3.7 10*3/uL 1.00-4.8 [facility] Lymphocytes/100 WBC Auto (Bl d)Ordered By: Chucky Dueñas on 10-08-2023 Lymphocytes/100 WBC (Bld) 38.7 % . [facility] MCH Auto (RBC) [Entitic mass ]Ordered By: Chucky Dueñas on 10-08-2023 MCH (RBC) [Entitic mass] 30.3 pg 24.7-34.3 [facility] MCHC Auto (RBC) [Mass/Vol]Or dered By: Chucky Dueñas on 10-08-2023 MCHC (RBC) [Mass/Vol] 34.5 g/dL 32.0-35.0 [facility] MCV Auto (RBC) [Entitic vol] Ordered By: Chucky Dueñas on 10-08-2023 MCV (RBC) [Entitic vol] 87.9 fL 80-100 [facility] Monocyte distribution width [Entitic volume] in Blood by AutomatedOrdered By: Chucky Dueñas on 10-08-2023 Monocyte distribution width Auto (Bld) [Entitic vol] 21.04 % 0.00-20.00 [facility] Comment on above: For adults in ED, MD W > 20.0 may be associated with a higher risk of sepsis during the first 12 hrs of hospital admission Monocytes Auto (Bld) [#/Vol] Ordered By: Chucky Dueñas on 10-08-2023 Monocytes (Bld) [#/Vol] 0.6 10*3/uL 0.0-0.8 [facility] Monocytes/100 WBC Auto (Bld) Ordered By: Chucky Dueñas on 10-08-2023 Monocytes/100 WBC (Bld) 6.2 % . [facility] Neutrophils Auto (Bld) [#/Vo l]Ordered By: Chucky Dueñas on 10-08-2023 Neutrophils (Bld) [#/Vol] 5.1 10*3/uL 1.8-7.7 [facility] Neutrophils/100 WBC Auto (Bl d)Ordered By: Chucky Dueñas on 10-08-2023 Neutrophils/100 WBC (Bld) 54.1 % . [facility] Nitrite Test strip Ql (U)Ord ered By: Chucky Dueñas on 10-08-2023 Nitrite Ql (U) Negative Negative [facility] No Panel InformationOrdered By: Chucky Dueñas on 10-08-2023 Estimated GFR (CKD-EPI) > 60.0 mL/Min [facility] Creatinine Clearance (Chem 91.55 [facility] Nucleated erythrocytes [Pres ence] in Blood by Automated countOrdered By: Chucky Dueñas on 10-08-2023 Nucleated RBC Auto Ql (Bld) 0.2 /100{WBC} 0-0.5 [facility] Opiates [Presence] in Urine by Screen methodOrdered By: Chucky Dueñas on 10-08-2023 Opiates Screen Ql (U) Negative Negative [facility] Phencyclidine Screen Ql (U)O rdered By: Chucky Dueñas on 10-08-2023 Phencyclidine Ql (U) Negative Negative [facility] Platelet mean volume Auto (B ld) [Entitic vol]Ordered By: Chucky Dueñas on 10-08-2023 Platelet mean volume (Bld) [Entitic vol] 8.6 fL 6.3-10.7 [facility] Platelets Auto (Bld) [#/Vol] Ordered By: Chucky Dueñas on 10-08-2023 Platelets (Bld) [#/Vol] 371 10*3/uL 150-450 [facility] Potassium [Moles/volume] in Serum or PlasmaOrdered By: Chucky Dueñas on 10-08-2023 Potassium [Moles/Vol] 3.8 mmol/L 3.5-5.1 [facility] Protein Auto test strip (U) [Mass/Vol]Ordered By: Chucky Dueñas on 10-08-2023 Protein (U) [Mass/Vol] 100 mg/dL Negative [facility] Protein [Mass/volume] in Ser um or PlasmaOrdered By: Chucky Dueñas on 10-08-2023 Protein [Mass/Vol] 7.3 g/dL 6.4-8.9 [facility] RBC Auto (Bld) [#/Vol]Ordere d By: Chucky Dueñas on 10-08-2023 RBC (Bld) [#/Vol] 4.22 10*6/uL 3.60-5.00 [facility] Salicylates [Mass/volume] in Serum or PlasmaOrdered By: Chucky Dueñas on 10-08-2023 Salicylates [Mass/Vol] mg/dL 15.0-30.0 [facility] Comment on above: Patients treated wit h Sulfasalazine may generate a false high result for Salicylate. Serum or plasma albumin/glob ulin mass ratioOrdered By: Chucky Dueñas on 10-08-2023 Albumin/Globulin [Mass ratio] 1.1 {ratio} [facility] Serum or plasma anion gap de terminationOrdered By: Chucky Dueñas on 10-08-2023 Anion gap [Moles/Vol] 10.1 mmol/L 6.0-15.0 [facility] Serum or plasma high density lipoprotein (HDL) cholesterol measurementOrdered By: Bobo Shields on 10-08-2023 Cholesterol in HDL [Mass/Vol] 35 mg/dL 23-92 [facility] Comment on above: HDL CHOL ATP-III CLA SSIFICATION Cardiovascular RiskHDL > or equal to 60 mg/dL LOWHDL < 40 mg/dL HIGH Serum or plasma total choles terol/high density lipoprotein (HDL) cholesterol mass ratOrdered By: Bobo Shields on 10-08-2023 Cholesterol.total/Andra sterol in HDL [Mass ratio] 4.3 {ratio} <5.0 [facility] Sodium [Moles/volume] in Ser um or PlasmaOrdered By: Chucky Dueñas on 10-08-2023 Sodium [Moles/Vol] 136 mmol/L 136-145 [facility] Specific gravity Auto test s trip (U) [Rel density]Ordered By: Chucky Dueñas on 10-08-2023 Specific gravity (U) [Rel density] 1.036 1.001-1.030 [facility] Squamous epithelial cells de tection in urine sediment by light microscopyOrdered By: Chucky Dueñas on 10-08-2023 Epithelial cells.squamous LM Ql (Urine sed) Innumerable [HPF] 0-2 [facility] Thyroid Stim Hormone w/Rflxo n 10-08-2023 Thyroid Stim Hormone w/Rflx 2.23 u[iU]/mL Normal 0.45-5.33 [facility] Comment on above: Order Comment: Comme nt use er lab draw Performed By: #### L IPID, [id number], TSH3 wRFLX #### [facility] [address] [place] [address] Thyrotropin [Units/volume] i n Serum or PlasmaOrdered By: Bobo Shields on 10-08-2023 TSH Qn 2.23 m[IU]/L 0.45-5.33 [facility] Triglyceride [Mass/volume] i n Serum or PlasmaOrdered By: Bobo Shields on 10-08-2023 Triglyceride [Mass/Vol] 147 mg/dL 0-149 [facility] Comment on above: TRIG ATP III CLASSIF ICATIONTRIG less than 150 mg/dL NormalTRIG 150-199 mg/dL Borderline highTRIG 200-500 mg/dL High TRIG greater than 500 mg/dL Very highStandard traceable to the Center for Disease Conrtrol and Prevention (CDC) test method. Urea nitrogen [Mass/volume] in Serum or PlasmaOrdered By: Chucky Dueñas on 10-08-2023 Urea nitrogen [Mass/Vol] 12 mg/dL 7-25 [facility] Urine Cultureon 10-08-2023 Bacteria identified Cx Nom (U) No Growth 2 Days PERFORMED BY: [place] [address] PATHOLOGIST INTEGRATION TECHNICIAN DANYELL LIVINGSTON M.D. Normal [facility] Comment on above: Performed By: #### L IPID, [id number], TSH3 wRFLX #### [address] Urine bacteria detection by automated methodOrdered By: Chucky Dueñas on 10-08-2023 Bacteria Auto Ql (U) 2+ None Seen [facility] Urine clarity by refractomet ry automatedOrdered By: Chucky Dueñas on 10-08-2023 Clarity Refractometry automated (U) Turbid Clear [facility] Urine culture routineOrdered By: Chucky Dueñas on 10-08-2023 Bacteria identified Cx Nom (U) No Growth 2 Days [facility] Urine glucose measurement by automated test strip (mass/volume)Ordered By: Chucky Dueñas on 10-08-2023 Glucose Auto test strip (U) [Mass/Vol] Normal mg/dL Normal [facility] Urine hemoglobin detection b y automated test stripOrdered By: Chucky Dueñas on 10-08-2023 Hemoglobin Auto test strip Ql (U) 3+ Negative [facility] Urine leukocyte esterase det ection by automated test stripOrdered By: Chucky Dueñas on 10-08-2023 Leukocyte esterase Auto test strip Ql (U) 1+ Negative [facility] Urobilinogen Auto test strip (U) [Mass/Vol]Ordered By: Chucky Dueñas on 10-08-2023 Urobilinogen (U) [Mass/Vol] Normal mg/dL Normal [facility] Valproate [Mass/volume] in S maris or PlasmaOrdered By: Chucky Dueñas on 10-08-2023 Valproate [Mass/Vol] ug/mL 50.0-100.0 [facility] Comment on above: Last dose: - Vitamin D 25 Hydroxy Totalon 10-08-2023 Vitamin D 25 Hydroxy Total 11.9 ng/mL Low 30-100 [facility] Comment on above: Order Comment: Comme nt [...] practice guideline. JCEM. 2010; 96(7):1911-. PERFORMED BY: [facility] [address] [place] [address] PATHOLOGIST INTEGRATION TECHNICIAN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 of Health (more content not included)... [facility] Consent for Treatmenton 07-13 Consent for Treatment [id number] .00TIFF [facility] Discharge Instructionson Discharge Instructions [id number]# 1.00TIFF [facility] ED Clinical Summaryon 2022 ED Clinical Summary [address] [address] ED Clinical Summary Person Information Name: LORNA DEUTSCH [place] Age: 38 Years : 1985 Sex: Female Language: Swiss PCP: Cris PENA CNP Marital Status: Visit [...] 08/07/2023 06:53:52 08/07/2023 06:53:52 08/07/2023 06:53:52 ADDRESS: [address] [place] [phone] [facility] DOC NOTES: MEDICAL INFORMATION: Prescriptions Given: Medications to Continue with No Changes Other Medications albuterol (albuterol 0.083% Inh Vera 3 mL) 3 Milliliter Inhalation every 6 hours as needed for wheezing. Refills: 1. albuterol (albuterol HFA 90 mcg/inh MDI) 2 Puffs Inhalation 4 times a day. Refills: 1. amphetamine-dextroamp hetamine (Adderall 20 mg Tab) 1 Tablets By Mouth 2 times a day. 30 day supply. Refills: 0. amphetamine-dextroamp hetamine (Adderall 20 mg Tab) 1 Tablets By [...] up: With: Address: When: [facility] [phone] In 3 days 08/10/2023 With: Address: When: Cris PENA [address] [place] [address] [employer] (1) In 3 days 08/10/2023 Comments: Please follow-up with your primary care doctor next 2 to 3 days for further evaluation and management. Return to the ED for any new or worsening symptoms. DIAGNOSIS: Anxiety; Methamphetamine use [facility] ED Note-Physicianon 08-07-20 ED Note-Physician Basic [...] go to sleep with her mother or solynu-qs-wql however they would not let her in [...] and Complexity of Problems Differential Diagnosis: [] [facility] Data External documents reviewed: [] My [...] audiovisual hallucinations. Patient was offered resources with [employer] however she declined. Patient is given a dose of Ativan in the ED. patient remained stable in the ED. Patient is discharged. She is given information for [facility], does not wish to establish with [...] With When Contact Information [facility] [phone] In 3 days 08/10/2023 EDT Additional Instructions: Cris PENA In 3 days 08/10/2023 EDT [address] [place] [address] [facility] (1) Additional Instructions: Please follow-up with your [...] 3 refills (more content not included)... [facility] Comment on above: Result Comment: Elec [...] at home: (more content not included)... [facility] ED Patient Summaryon 023 ED Patient Summary [address] [address] Patient Discharge Instructions Person Information Name: LORNA DEUTSCH Age: 38 Years Arrival Date: 08/07/2023 02:33:18 Discharge Diagnosis: Anxiety; Methamphetamine use Primary Care Physician: Cris PENA CNP Provider Information Primary Provider: Norma Dietz DO Advanced Heating And Air Conditioning Mechanic:None The exam and treatment you received in the Emergency Department were for an urgent problem and are not intended as complete care. It is important that you follow up with a doctor, nurse practitioner, or physician?s news production assistant for ongoing care. If your symptoms [...] Instructions: With: Address: When: [facility] [phone] In 3 days 08/10/2023 With: Address: When: Cris PENA [address] [phone] [employer] (1) In 3 days 08/10/2023 Comments: Please [...] opioids can be used to help relieve siypepzj-kq-hcypjz pain and are often prescribed following a [...] guidance from the Food and Drug Administration (www.fda.gov/Drugs/Re sourcesForYou). ? Visit www.cdc.gov/drugoverd ose to vilma (more content not included)... [facility] Patient Correspondenceon Patient Correspondence [id number] .00CD:127 [facility] Patient Letter FTMCon 2022 Patient Letter [facility] [address] [place] [address] July 14, 2023 OLRNA DEUTSCH [address] [place] [address] : 1985 To whom it may concern, [...] office with any questions or concerns at [phone]. Respectfully, ERNESTINE Deshpande [facility] JULIANN Telephone (Eyewitness SurveillanceG) LORNA DEUTSCH ([id number]) 1985 F Date Time Provider Department 07/07/23 LARA SALINAS During your visit today, we recorded the following information about you: Allergies As of Date: 07/07/2023 (No Known Allergies) Date Reviewed: 04/24/2023 Reviewed by: Mireille Cheatham APRN.PRIMARY HEALTH ORGANISATION MANAGER - Fully Assessed Prescriptions as of 07/07/2023 [...] tablet once daily for 7 days. - dextroamphetamine-amp hetamine (ADDERALL) 10 mg tablet Take 2 tablets [...] Encounter Status:Closed by LARA SALINAS on 07/07/23 [facility] Valproate [Mass/volume] in S maris or PlasmaOrdered By: Claduio Dee on 07-06-2023 Valproate [Mass/Vol] 40.5 ug/mL 50.0-100.0 [facility] Comment on above: Last dose: - Valproic Acid (in house)on 0 07-06-2023 Valproic Acid (in house) 40.5 ug/mL Low 50.0-100.0 [facility] Comment on above: Result Comment: Last dose: - PERFORMED BY: [place] [address] PATHOLOGIST INTEGRATION TECHNICIAN DANYELL LIVINGSTON M.D. Performed By: #### L IPID, [id number], TSH3 wRFLX #### [address] Cholesterol [Mass/volume] in Serum or PlasmaOrdered By: Bobo Shields on 07-03-2023 Cholesterol [Mass/Vol] 179 mg/dL 140-200 [facility] [place] [facility] Comment on above: Chol less than 200 m g/dl low riskChol 201-239 mg/dl borderline riskChol 240 mg/dl and greater high risk Cholesterol in LDL Calc [Mas s/Vol]Ordered By: Bobo Shields on 07-03-2023 Cholesterol in LDL [Mass/Vol] 111 mg/dL 0-100 [facility] Comment on above: LDL ATP III CLASSIFI CATIONLDL less than 100 mg/dL OptimalLDL 100-129 mg/dL Near or above optimalLDL 130-159 mg/dL Borderline highLDL 160-189 mg/dL HighLDL greater than 189 mg/dL Very high Cholesterol in VLDL Calc [Ma ss/Vol]Ordered By: Bobo Shields on 07-03-2023 Cholesterol in VLDL [Mass/Vol] 27 mg/dL [facility] ECG 12 lead ECGon 07-03-2023 ECG 12 lead ECG [facility] [place] [address] Electrocardiograph Report Signed Patient: Lorna Deutsch MR#: [id number] 98 : 1985 Acct:[id number] Age/Sex: 38 / F ADM Date: 07/02/23 Loc: Room: [address] [place] [address] Type: ADM IN Attending Dr: Bobo Shields [...] : 429 ms Sinus bradycardia with short WA Otherwise normal ECG When compared with ECG of 14-JAN-2023 07:10, No significant change was found Confirmed by HUBER RAMOS FACBRITNI Adan ([id number]) on 07/03/2023 12:33:59 PM Referred By: Electronically Signed By:BRITNI NGO MD FACC Transcribed By: MUS Signed By Britni Ngo MD, FACC 07/03/23 1234 Normal [facility] Lipid Panelon 07-03-2023 Cholesterol [Mass/Vol] 179 mg/dL Normal 140-200 [facility] [place] [facility] Comment on above: Result Comment: Chol less than 200 mg/dl low risk Chol 201-239 mg/dl borderline risk Chol 240 mg/dl and greater high risk Performed By: #### L IPID, [id number], TSH3 wRFLX #### [facility] [address] Cholesterol in HDL [Mass/Vol] 40 mg/dL Normal 23-92 [facility] Comment on above: Result Comment: HDL CHOL ATP-III CLASSIFICATION Cardiovascular Risk HDL > or equal to 60 mg/dL LOW HDL < 40 mg/dL HIGH Performed By: #### L IPID, [id number], TSH3 wRFLX #### [facility] [address] [place], [place] [address] Cholesterol.total/Andra sterol in HDL [Mass ratio] 4.5 {ratio} Normal <5.0 [facility] Comment on above: Performed By: #### L IPID, [id number], TSH3 wRFLX #### [facility] [address] [place] [address] [place] LDL Cholesterol,Calculated 111 mg/dL High 0-100 [facility] Comment on above: Result Comment: LDL ATP III CLASSIFICATION LDL less than 100 mg/dL Optimal LDL 100-129 mg/dL Near or above optimal LDL 130-159 mg/dL Borderline high LDL 160-189 mg/dL High LDL greater than 189 mg/dL Very high Performed By: #### L IPID, [id number], TSH3 wRFLX #### [facility] [address] [place] [id number] [place] Triglyceride w/Reflex 138 mg/dL Normal 0-149 [facility] Comment on above: Result Comment: TRIG ATP III CLASSIFICATION TRIG less than 150 mg/dL Normal TRIG 150-199 mg/dL Borderline high TRIG 200-500 mg/dL High TRIG greater than 500 mg/dL Very high Standard traceable to the Center for Disease Conrtrol and Prevention (CDC) test method. Performed By: #### L IPID, [id number], TSH3 wRFLX #### [facility] [address] VLDL CHOLESTEROL 27 mg/dL Normal [facility] Comment on above: Performed By: #### L IPID, [id number], TSH3 wRFLX #### [facility] [address] Serum or plasma high density lipoprotein (HDL) cholesterol measurementOrdered By: Bobo Shields on 07-03-2023 Cholesterol in HDL [Mass/Vol] 40 mg/dL [facility] Comment on above: HDL CHOL ATP-III CLA SSIFICATION Cardiovascular RiskHDL > or equal to 60 mg/dL LOWHDL < 40 mg/dL HIGH Serum or plasma total choles terol/high density lipoprotein (HDL) cholesterol mass ratOrdered By: Bobo Shields on 07-03-2023 Cholesterol.total/Andra sterol in HDL [Mass ratio] 4.5 {ratio} <5.0 [facility] Thyroid Stim Hormone w/Rflxo n 07-03-2023 Thyroid Stim Hormone w/Rflx 5.18 u[iU]/mL Normal 0.45-5.33 [facility] Comment on above: Performed By: #### L IPID, [id number], TSH3 wRFLX #### [facility] [address] [place] [address] Thyrotropin [Units/volume] i n Serum or PlasmaOrdered By: Bobo Shields on 07-03-2023 TSH Qn 5.18 m[IU]/L 0.45-5.33 [facility] Triglyceride [Mass/volume] i n Serum or PlasmaOrdered By: Bobo Shields on 07-03-2023 Triglyceride [Mass/Vol] 138 mg/dL 0-149 [facility] Comment on above: TRIG ATP III CLASSIF ICATIONTRIG less than 150 mg/dL NormalTRIG 150-199 mg/dL Borderline highTRIG 200-500 mg/dL High TRIG greater than 500 mg/dL Very highStandard traceable to the Center for Disease Conrtrol and Prevention (CDC) test method. Vitamin D 25 Hydroxy Totalon 07-03-2023 Vitamin D 25 Hydroxy Total 17.2 ng/mL Low 30-100 [facility] Comment on above: Result Comment: KAVON MIN D STATUS 25([place])VITAMIN D RANGE (ng/mL) Deficient <20 Insufficient 20 to <30 Sufficient 30 to 100 Reference: Stephanie Guardado, Ro CORONEL et samia. Evaluation,treatment, and prevention of vitamin D deficiency; an Endocrine Society clinical practice guideline. JCEM. 2010; 96(7):1911-30. PERFORMED BY: [facility] [address] [place] [address] PATHOLOGIST INTEGRATION TECHNICIAN DANYELL LIVINGSTON M.D. Performed By: #### L IPID, [id number], TSH3 wRFLX #### [address] Vitamin D+Metabolites [Mass/ volume] in Serum or PlasmaOrdered By: Bobo Shields on 07-03-2023 Vitamin D+Metabolites [Mass/Vol] 17.2 ng/mL 30-100 [facility] Comment on above: VITAMIN D STATUS 25( [place])VITAMIN D RANGE (ng/mL) Deficient <20 Insufficient 20 to <30Sufficient 30 to 100Reference: Stephanie Guardado, Ro CORONEL, et al. Evaluation,treatment, and prevention of vitamin D deficiency; an Endocrine Society clinical practice guideline. JCEM. 2010; 96(7):1911-30. [facility] 06-17-2023 [facility] Telephone (PAINTW) LORNA DEUTSCH ([id number]) 1985 F [place] Date Time Provider Department 06/17/23 LADI KOCH During your visit today, we recorded the following information about you: Sandra Garcia 06/17/2023 1:30 PM Signed Lrona Deutsch is calling Ladi Koch MD today. Patient states that her pain is not controlled on the Lyrica. Patient is asking for an increase in the Lyrica to 150 mg or to switch back to Neurontin 800 mg. Patient has been identified by name and birthdate. Duration of symptoms: N/A Person calling: self Call patient at: [phone] Was an appointment scheduled: Kaity Elmoreanda MartyCLARA 06/17/2023 1:34 PM Signed Please advise thank you Marty TorrezCLARA June 17, 2023 1:34 PM Marvin Sanchez 06/18/2023 1:59 PM Signed The patient called back to ask if the script could be sent to another pharmacy. pregabalin (LYRICA) 100 mg capsule [facility] Pharmacy [address] [place] [address] [address] [facility] [phone] 1985 Marvin Sanchez 06/18/2023 1:59 PM Signed Addended by: MARVIN SANCHEZ on: 06/18/2023 01:59 PM Modules accepted: Orders Allergies As of Date: 06/17/2023 (No Known Allergies) Date Reviewed: 04/24/2023 Reviewed by: Mireille Cheatham APRN.PRIMARY HEALTH ORGANISATION MANAGER - Fully Assessed Reason for Visit: Medication [...] tablet once daily for 7 days. - dextroamphetamine-amp hetamine (ADDERALL) 10 mg tablet Take 2 tablets [...] Status:Closed by MARTY TORREZ on 06/17/23 Normal [facility] Alanine aminotransferase [En zymatic activity/volume] in Serum or PlasmaOrdered By: Luis Armando Hendrix on 06-08-2023 ALT [Catalytic activity/Vol] 7 U/L 7-52 [facility] Albumin [Mass/volume] in Ser um or Plasma by Bromocresol green (BCG) dye binding methoOrdered By: Luis Armando Hendrix on 06-08-2023 Albumin BCG dye [Mass/Vol] 3.6 g/dL 3.5-5.7 [facility] Alkaline phosphatase [Enzyma tic activity/volume] in Serum or PlasmaOrdered By: Luis Armando Hendrix on 06-08-2023 ALP [Catalytic activity/Vol] 35 U/L 34-104 [facility] Amphetamine Screen Ql (U)Ord ered By: Luis Armando Hendrix on 06-08-2023 Amphetamines Ql (U) Negative Negative [facility] Aspartate aminotransferase [ Enzymatic activity/volume] in Serum or PlasmaOrdered By: Luis Armando Hendrix on 06-08-2023 AST [Catalytic activity/Vol] 9 U/L 13-39 [facility] Automated erythrocytes count in urine sediment (number/area)Ordered By: Luis Armando Hendrix on 06-08-2023 RBC Auto (Urine sed) [#/Area] 1-2 [HPF] 0-4 [facility] Automated leukocytes count i n urine sediment (number/area)Ordered By: Luis Armando Hendrix on 06-08-2023 WBC Auto (Urine sed) [#/Area] Innumerable [HPF] 0-4 [facility] Barbiturates [Presence] in U rine by Screen methodOrdered By: Luis Armando Hendrix on 06-08-2023 Barbiturates Screen Ql (U) Negative Negative [facility] Basophils Auto (Bld) [#/Vol] Ordered By: Luis Armando Hendrix on 06-08-2023 Basophils (Bld) [#/Vol] 0.0 10*3/uL 0.0-0.2 [facility] Basophils/100 WBC Auto (Bld) Ordered By: Luis Armando Hendrix on 06-08-2023 Basophils/100 WBC (Bld) 0.7 % . [facility] Benzodiazepines Screen Ql (U )Ordered By: Luis Armando Hendrix on 06-08-2023 Benzodiazepines Ql (U) Negative Negative [facility] [place] [facility] Benzoylecgonine [Presence] i n Urine by Screen methodOrdered By: Luis Armando Hendrix on 06-08-2023 Benzoylecgonine Screen Ql (U) Negative Negative [facility] Bilirubin Test strip Ql (U)O rdered By: Luis Armando Hendrix on 06-08-2023 Bilirubin Ql (U) Negative Negative [facility] Bilirubin.total [Mass/volume ] in Serum or PlasmaOrdered By: Luis Armando Hendrix on 06-08-2023 Bilirubin [Mass/Vol] 0.3 mg/dL 0.3-1.0 [facility] Calcium [Mass/volume] in Ser um or PlasmaOrdered By: Luis Armando Hendrix on 06-08-2023 Calcium [Mass/Vol] 8.9 mg/dL 8.6-10.3 [facility] Cannabinoids [Presence] in U rine by Screen methodOrdered By: Luis Armando Hendrix on 06-08-2023 Cannabinoids Screen Ql (U) Negative Negative [facility] Comment on above: These are unconfirme d results and should not be used for legal purposes. Drug Cut-Off Concentration: AMPH 1000 ng/mL SARA 200 ng/mL MARTÍNEZ 200 ng/mL COCM 300 ng/mL OP 300 ng/mL PCP 25 ng/mL THC 20 ng/mL Carbon dioxide, total [Moles /volume] in Serum or PlasmaOrdered By: Luis Armando Hendrix on 06-08-2023 CO2 [Moles/Vol] 31.1 mmol/L 21.0-31.0 [facility] Chloride [Moles/volume] in S maris or PlasmaOrdered By: Luis Armando Hendrix on 06-08-2023 Chloride [Moles/Vol] 106 mmol/L 98-107 [facility] Color Auto (U)Ordered By: Angelic Hendrix on 06-08-2023 Color (U) Yellow Yellow [facility] Complete Blood Count Auto Di ffon 06-08-2023 Basophils (Bld) [#/Vol] 0.0 10*3/uL Normal 0.0-0.2 [facility] Comment on above: Result Comment: PERF ORMED BY: [place] [address] PATHOLOGIST INTEGRATION TECHNICIAN DANYELL LIVINGSTON M.D. Performed By: #### U HCG, URDS, ADDONUAPLUS, CUU #### [facility] [address] [place] [address] Basophils/100 WBC (Bld) 0.7 % Normal . [facility] Comment on above: Performed By: #### U HCG, URDS, ADDONUAPLUS, CUU #### [facility] [address] Eosinophils (Bld) [#/Vol] 0.1 10*3/uL Normal 0.0-0.45 [facility] [place] Comment on above: Performed By: #### U HCG, URDS, ADDONUAPLUS, CUU #### [facility] [address] [place] [address] [place] Eosinophils/100 WBC (Bld) 2.2 % Normal . [facility] [place] Comment on above: Performed By: #### U HCG, URDS, ADDONUAPLUS, CUU #### [facility] [address] Erythrocyte distribution width (RBC) [Ratio] 13.5 % Normal 11.9-15.3 [facility] [place] Comment on above: Performed By: #### U HCG, URDS, ADDONUAPLUS, CUU #### [address] Hematocrit (Bld) [Volume fraction] 39.0 % Normal 34.0-46.4 [facility] [place] Comment on above: Performed By: #### U HCG, URDS, ADDONUAPLUS, CUU #### [address] Hemoglobin (Bld) [Mass/Vol] 13.0 g/dL Normal 11.8-15.4 [facility] [place] Comment on above: Performed By: #### U HCG, URDS, ADDONUAPLUS, CUU #### [address] Lymphocytes (Bld) [#/Vol] 3.0 10*3/uL Normal 1.00-4.8 [facility] [place] Comment on above: Performed By: #### U HCG, URDS, ADDONUAPLUS, CUU #### [address] Lymphocytes/100 WBC (Bld) 58.8 % Normal . [facility] [place] Comment on above: Performed By: #### U HCG, URDS, ADDONUAPLUS, CUU #### [address] MCH (RBC) [Entitic mass] 30.0 pg Normal 24.7-34.3 [facility] [place] Comment on above: Performed By: #### U HCG, URDS, ADDONUAPLUS, CUU #### [address] MCV (RBC) [Entitic vol] 89.7 fL Normal 80-100 [facility] Comment on above: Performed By: #### U HCG, URDS, ADDONUAPLUS, CUU #### [address] Mean Corpuscular HGB Conc 33.4 g/dL Normal 32.0-35.0 [facility] [place] Comment on above: Performed By: #### U HCG, URDS, ADDONUAPLUS, CUU #### [facility] [address] [place] [address] [place] Monocytes (Bld) [#/Vol] 0.5 10*3/uL Normal 0.0-0.8 [facility] [place] Comment on above: Performed By: #### U HCG, URDS, ADDONUAPLUS, CUU #### [facility] [address] [place] [address] [place] Monocytes/100 WBC (Bld) 19.94 % Normal 0.00-20.00 [facility] Comment on above: Performed By: #### U HCG, URDS, ADDONUAPLUS, CUU #### [place] [address] [place] Monocytes/100 WBC (Bld) 9.4 % Normal . [facility] Comment on above: Performed By: #### U HCG, URDS, ADDONUAPLUS, CUU #### [address] Neutrophils (Bld) [#/Vol] 1.5 10*3/uL Low 1.8-7.7 [facility] [place] Comment on above: Performed By: #### U HCG, URDS, ADDONUAPLUS, CUU #### [address] Neutrophils/100 WBC (Bld) 28.9 % Normal . [facility] [place] Comment on above: Performed By: #### U HCG, URDS, ADDONUAPLUS, CUU #### [place] [address] [place] NRBC% 0.1 /100{WBC} Normal 0-0.5 [facility] [place] Comment on above: Performed By: #### U HCG, URDS, ADDONUAPLUS, CUU #### [place] [address] [place] Platelet mean volume (Bld) [Entitic vol] 9.2 fL Normal 6.3-10.7 [facility] [place] Comment on above: Performed By: #### U HCG, URDS, ADDONUAPLUS, CUU #### [facility] [address] Platelets (Bld) [#/Vol] 164 10*3/uL Normal 150-450 [facility] [place] Comment on above: Performed By: #### U HCG, URDS, ADDONUAPLUS, CUU #### [facility] [address] [place] [address] RBC (Bld) [#/Vol] 4.35 10*6/uL Normal 3.60-5.00 [facility] Comment on above: Performed By: #### U HCG, URDS, ADDONUAPLUS, CUU #### [facility] [address] [place] [address] WBC (Bld) [#/Vol] 5.1 10*3/uL Normal 3.8-11.6 [facility] Comment on above: Performed By: #### U HCG, URDS, ADDONUAPLUS, CUU #### [facility] [address] [place] [address] Comprehensive Metabolic Pane selam 06-08-2023 Albumin [Mass/Vol] 3.6 g/dL Normal 3.5-5.7 [facility] Comment on above: Performed By: #### U HCG, URDS, ADDONUAPLUS, CUU #### [facility] [address] [place] [address] Albumin/Globulin [Mass ratio] 1.2 {ratio} Normal [facility] [place] Comment on above: Performed By: #### U HCG, URDS, ADDONUAPLUS, CUU #### [facility] [address] [place] [address] ALP [Catalytic activity/Vol] 35 U/L Normal 34-104 [facility] [place] Comment on above: Performed By: #### U HCG, URDS, ADDONUAPLUS, CUU #### [facility] [address] [place] [address] ALT [Catalytic activity/Vol] 7 U/L Normal 7-52 [facility] [place] Comment on above: Performed By: #### U HCG, URDS, ADDONUAPLUS, CUU #### [facility] [address] [place] [address] Anion gap [Moles/Vol] 6.7 mmol/L Normal 6.0-15.0 [facility] Comment on above: Performed By: #### U HCG, URDS, ADDONUAPLUS, CUU #### [address] AST [Catalytic activity/Vol] 9 U/L Low 13-39 [facility] [place] Comment on above: Performed By: #### U HCG, URDS, ADDONUAPLUS, CUU #### [address] Bilirubin [Mass/Vol] 0.3 mg/dL Normal 0.3-1.0 [facility] Comment on above: Performed By: #### U HCG, URDS, ADDONUAPLUS, CUU #### [address] Calcium [Mass/Vol] 8.9 mg/dL Normal 8.6-10.3 [facility] Comment on above: Performed By: #### U HCG, URDS, ADDONUAPLUS, CUU #### [address] Chloride [Moles/Vol] 106 mmol/L Normal 98-107 [facility] Comment on above: Performed By: #### U HCG, URDS, ADDONUAPLUS, CUU #### [address] CO2 [Moles/Vol] 31.1 mmol/L High 21.0-31.0 [facility] Comment on above: Performed By: #### U HCG, URDS, ADDONUAPLUS, CUU #### [address] Creatinine [Mass/Vol] 0.66 mg/dL Normal 0.60-1.20 [facility] Comment on above: Performed By: #### U HCG, URDS, ADDONUAPLUS, CUU #### [facility] [address] [place] [address] [place] Creatinine Clr Calc Pharmacy 104.00 Normal [facility] [place] Comment on above: Result Comment: PERF ORMED BY: [place] [address] PATHOLOGIST INTEGRATION TECHNICIAN DANYELL LIVINGSTON M.D. Performed By: #### U HCG, URDS, ADDONUAPLUS, CUU #### [address] GFR/1.73 sq M.predicted MDRD (S/P/Bld) [Vol rate/Area] mL/min/{1.73_m2} Normal [facility] [place] Comment on above: Performed By: #### U HCG, URDS, ADDONUAPLUS, CUU #### [address] Globulin (S) [Mass/Vol] 2.9 g/dL Normal [facility] Comment on above: Performed By: #### U HCG, URDS, ADDONUAPLUS, CUU #### [address] Glucose [Mass/Vol] 90 mg/dL Normal 70-100 [facility] Comment on above: Result Comment: [place] Glucose Reference Range is dependent on time and content of last meal. Glucose of more than 200 mg/dL in a nonstressed, ambulatory subject supports the diagnosis of Diabetes Mellitus. ADA recommended reference range Performed By: #### U HCG, URDS, ADDONUAPLUS, CUU #### [address] Potassium [Moles/Vol] 3.8 mmol/L Normal 3.5-5.1 [facility] Comment on above: Performed By: #### U HCG, URDS, ADDONUAPLUS, CUU #### [address] Protein [Mass/Vol] 6.5 g/dL Normal 6.4-8.9 [facility] Comment on above: Performed By: #### U HCG, URDS, ADDONUAPLUS, CUU #### [facility] [address] Sodium [Moles/Vol] 140 mmol/L Normal 136-145 [facility] Comment on above: Performed By: #### U HCG, URDS, ADDONUAPLUS, CUU #### [facility] [address] Urea nitrogen [Mass/Vol] 17 mg/dL Normal 7-25 [facility] [place] Comment on above: Performed By: #### U HCG, URDS, ADDONUAPLUS, CUU #### [facility] [address] [place] [address] Creatinine [Mass/volume] in Serum or PlasmaOrdered By: Luis Armando Hendrix on 06-08-2023 Creatinine [Mass/Vol] 0.66 mg/dL 0.60-1.20 [facility] Dipstick and Microscopicon 0 06-08-2023 Appearance (U) Turbid Critically abnormal Clear [facility] [place] Comment on above: Order Comment: Name Collection Type:: Clean-Voided Midstream Performed By: #### U HCG, URDS, ADDONUAPLUS, CUU #### [facility] [address] [place] [address] [place] Bacteria,Urine 4+ High None Seen [facility] [place] Comment on above: Order Comment: Name Collection Type:: Clean-Voided Midstream Performed By: #### U HCG, URDS, ADDONUAPLUS, CUU #### [facility] [address] [place] [address] [place] Bilirubin,Urine Negative Normal Negative [facility] [place] Comment on above: Order Comment: Name Collection Type:: Clean-Voided Midstream Performed By: #### U HCG, URDS, ADDONUAPLUS, CUU #### [facility] [address] [place] [address] [place] Color (U) Yellow Normal Yellow [facility] [place] Comment on above: Order Comment: Name Collection Type:: Clean-Voided Midstream Performed By: #### U HCG, URDS, ADDONUAPLUS, CUU #### [facility] [address] [place] [address] Glucose Ql (U) Normal Normal Normal [facility] [place] Comment on above: Order Comment: Name Collection Type:: Clean-Voided Midstream Performed By: #### U HCG, URDS, ADDONUAPLUS, CUU #### [address] Hyaline Casts,Urine 0-8 Normal 0-8 [facility] Comment on above: Order Comment: Name Collection Type:: Clean-Voided Midstream Performed By: #### U HCG, URDS, ADDONUAPLUS, CUU #### [address] Ketones Ql (U) Negative Normal Negative [facility] [place] Comment on above: Order Comment: Name Collection Type:: Clean-Voided Midstream Performed By: #### U HCG, URDS, ADDONUAPLUS, CUU #### [address] Leukocyte esterase Test strip Ql (U) 4+ High Negative [facility] [place] Comment on above: Order Comment: Name Collection Type:: Clean-Voided Midstream Performed By: #### U HCG, URDS, ADDONUAPLUS, CUU #### [address] Nitrite,Urine Positive High Negative [facility] [place] Comment on above: Order Comment: Name Collection Type::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 (KLONOPIN) [...] three times daily for 30 days. - dextroamphetamine-amp hetamine (ADDERALL) 10 mg tablet Take 2 tablets [...] Take 500 (more content not included)... [facility] LORNA DEUTSCH ([id number]) 1985 F Date Time Provider Department 04/13/23 MIREILLE CHEATHAM [facility] During your visit today, we recorded the following information about you: Chrystal Pollack Pss 04/13/2023 1:52 PM Signed Lorna Deutsch is calling Mireille Cheatham APRN.PRIMARY HEALTH ORGANISATION MANAGER today with concern regarding Anxiety. Pt is requesting medication. Please advise. Patient has been identified by name and birthdate. Duration of symptoms: 2 days Person calling: self Call patient at: on cell [phone] Was an appointment scheduled: No Closing statement: Symptom Call: Thank you for calling [facility], your call is very important. A nurse will call in approximately 2-4 hours during business hours. If this is an emergency, please contact 911. Chrystal Pollack Pss Pao Heard RN 04/13/2023 3:45 PM [...] was scheduled a facetime with Dr. Galindo [phone] Mireille Cheatham APRN.PRIMARY HEALTH ORGANISATION MANAGER 04/15/2023 8:11 AM Signed Seen by Iqra 04/13, Appt scheduled for 04/16. Mireille Cheatham APRN.JULIAN Allergies As of Date: 04/13/2023 (No Known Allergies) Date Reviewed: 03/16/2023 Reviewed by: Mireille Cheatham APRN.PRIMARY HEALTH ORGANISATION MANAGER - Fully Assessed Reason for Visit: Patient [...] three times daily for 30 days. - dextroamphetamine-amp hetamine (ADDERALL) 10 mg tablet Take 2 tablets [...] Encounter Status:Closed by MIREILLE CHEATHAM on 04/15/23 [facility] CNOVon 03-16-2023 CNOV Office Visit ([facility] ) LORNA DEUTSCH ([id number]) 1985 F Date Time Provider Department 03/16/23 8:40 AM [facility] During your visit today, we recorded the following information about you: Temperature Pulse Blood pressure Weight 98.1 degrees 88/minute 120/74 69.9 kg Height Last Period 1.679 m 03/14/23 Mireille Cheatham APRN.PRIMARY HEALTH ORGANISATION MANAGER 04/23/2023 3:54 PM Addendum SUBJECTIVE: Chief Complaint: [...] (Z12.4) Screening for cervical cancer `CONSULT TO AUTOMATIC PROFILE SHAPER OPERATOR 5. (Z87.42) History of abnormal cervical Pap smear `CONSULT TO AUTOMATIC PROFILE SHAPER OPERATOR 6. (F11.11) History of heroin abuse (HCC) `Stable, on methodone. 7. (F90.9) Attention deficit hyperactivity disorder (ADHD), unspecified ADHD type `Letter reviewed from methadone clinic permitting Adderall. Will send to medical records. `CONSULT TO PSYCHIATRY `Rx for 1 month supply: dextroamphetamine-amp hetamine (ADDERALL) 10 mg Tablet. 8. (F31.9) Bipolar [...] sooner as needed. Mireille Cheatham APRN.JULIAN Cheatham APRN.PRIMARY HEALTH ORGANISATION MANAGER 03/16/2023 8:57 AM Signed SMOKING CESSATION Stopping [...] such as (more content not included)... Normal [facility] ED Note-Physicianon 03-09-20 ED Note-Physician Basic Information [...] prescription medications Follow-up With When Contact Information [facility] In 3 days 03/11/2023 EDT Additional Instructions: JEAN JULIANCris In 3 days 03/11/2023 EDT [address] [place] [address]- Additional Instructions: Problem List/Past Medical History Ongoing [...] times per (more content not included)... Normal [facility] Comment on above: Result Comment: Elec tronically Signed By: Windy Walton PA-C\.br\Date and Time Signed: 03/08/23 17:40 EDT\.br\Electronically Co-Signed By: Heather Valenzuela M.D.\.br\Date and Time Co-Signed: 03/09/23 07:27 EDT Consent for Treatmenton 02-10 Consent for Treatment [id number] .[id number]:127 Normal [facility] ED Clinical Summaryon 2022 ED Clinical Summary [place] [id number] ED Clinical Summary Person Information Name: LORNA DEUTSCH/[facility] Age: 38 Years : 1985 Sex: Female Language: Swiss PCP: Cris PENA CNP Marital Status: Visit [...] 03/08/2023 17:41:21 03/08/2023 17:41:21 03/08/2023 17:41:21 ADDRESS: [address] [place] [id number] PHYS DOC NOTES: MEDICAL INFORMATION: Prescriptions Given: Medications to Continue with No Changes Other Medications albuterol (albuterol 0.083% Inh Vera 3 mL) 3 Milliliter Inhalation every 6 hours as needed for wheezing. Refills: 1. albuterol (albuterol HFA 90 mcg/inh MDI) 2 Puffs Inhalation 4 times a day. Refills: 1. amphetamine-dextroamp hetamine (Adderall 20 mg Tab) 1 Tablets By Mouth 2 times a day. 30 day supply. Refills: 0. amphetamine-dextroamp hetamine (Adderall 20 mg Tab) 1 Tablets By [...] INFORMATION: Instructions: Follow up: With: Address: When: [facility] In 3 days 03/11/2023 With: Address: When: Cris PENA CNP [address] [place], [place] [id number] In 3 days 03/11/2023 DIAGNOSIS: 1:Encounter for medication refill; 2:Drug-seeking behavior [facility] ED Patient Education Noteon 03-08-2023 ED Patient Education Note Normal [facility] ED Patient Summaryon 023 ED Patient Summary [address] [address] Patient Discharge Instructions Person Information Name: LORNA DEUTSCH Age: 38 Years Arrival Date: 03/08/2023 16:49:26 Discharge Diagnosis: 1:Encounter for medication refill; 2:Drug-seeking behavior Primary Care Physician: Cris PENA CNP Provider Information Primary Provider: Heather Valenzuela M.D. Advanced Heating And Air Conditioning Mechanic:None The exam and treatment you received in the Emergency Department were for an urgent problem and are not intended as complete care. It is important that you follow up with a doctor, nurse practitioner, or physician?s news production assistant for ongoing care. If your symptoms become worse or you do not improve as expected and you are unable to reach your usual health care provider, you should return to the Emergency Department. We are available 24 hours a day. LA NENA LORNA Russo has been given the following list of patient education materials, prescriptions and follow-up instructions: Follow-up Instructions: With: Address: When: [facility] In 3 days 03/11/2023 With: Address: When: MANJITRONALDO JORDAN Cris Russo [address] [place] [address] In 3 days 03/11/2023 In the event that this physician does not participate in your insurance network, please consult with your insurance company to find a nearby participating provider. Patient Education Materials: A MESSAGE TO ALL PATIENTS REGARDING OPIOIDS PRESCRIPTION OPIOIDS: WHAT YOU NEED TO KNOW Prescription opioids can be used to help relieve akksdlbl-pi-iqbdml pain and are often prescribed following a [...] guidance from the Food and Drug Administration (www.fda.gov/Drugs/Re sourcesForYou). ? Visit www.cdc.gov/drugoverd ose to learn about the risks of opioids abuse and overdose. ? If you believe you may be struggling with addiction, tell your health career manager and ask for guidance or (more content not included)... Normal [facility] [address] [place] [address] March 03, 2023 LORNA DEUTSCH [id number] : 1985 To whom it may concern, [...] office with any questions or concerns at [phone]. Respectfully, ERNESTINE Deshpande Normal [facility] ED Note-Physicianon 02-05-20 ED Note-Physician [id number]. 00CD:127 Normal [facility] Alanine aminotransferase [En zymatic activity/volume] in Serum or PlasmaOrdered By: Leonard Salazar on 02-03-2023 ALT [Catalytic activity/Vol] 7 U/L 7-52 [facility] Albumin [Mass/volume] in Ser um or Plasma by Bromocresol green (BCG) dye binding methoOrdered By: Leonard Salazar on 02-03-2023 Albumin BCG dye [Mass/Vol] 3.8 g/dL 3.5-5.7 [facility] Alkaline phosphatase [Enzyma tic activity/volume] in Serum or PlasmaOrdered By: Leonard Salazar on 02-03-2023 ALP [Catalytic activity/Vol] 34 U/L 34-104 [facility] Amphetamine Screen Ql (U)Ord ered By: Leonard Salazar on 02-03-2023 Amphetamines Ql (U) Positive Negative [facility] Aspartate aminotransferase [ Enzymatic activity/volume] in Serum or PlasmaOrdered By: Leonard Salazar on 02-03-2023 AST [Catalytic activity/Vol] 13 U/L 13-39 [facility] Automated erythrocytes count in urine sediment (number/area)Ordered By: Leonard Salazar on 02-03-2023 RBC Auto (Urine sed) [#/Area] 1-2 [HPF] 0-4 [facility] Automated leukocytes count i n urine sediment (number/area)Ordered By: Leonard Salazar on 02-03-2023 WBC Auto (Urine sed) [#/Area] 5-9 [HPF] 0-4 [facility] Automated urine hyaline cast s count (number/volume)Ordered By: Leonard Salazar on 02-03-2023 Hyaline casts Auto (U) [#/Vol] None seen [LPF] 0-1 [facility] Barbiturates [Presence] in U rine by Screen methodOrdered By: Leonard Salazar on 02-03-2023 Barbiturates Screen Ql (U) Negative Negative [facility] Basophils Auto (Bld) [#/Vol] Ordered By: Leonard Salazar on 02-03-2023 Basophils (Bld) [#/Vol] 0.0 10*3/uL 0.0-0.2 [facility] Basophils/100 WBC Auto (Bld) Ordered By: Leonard Salazar on 02-03-2023 Basophils/100 WBC (Bld) 0.4 % . [facility] Benzodiazepines Screen Ql (U )Ordered By: Leonard Salazar on 02-03-2023 Benzodiazepines Ql (U) Negative Negative [facility] Benzoylecgonine [Presence] i n Urine by Screen methodOrdered By: Leonard Salazar on 02-03-2023 Benzoylecgonine Screen Ql (U) Negative Negative [facility] Bilirubin Test strip Ql (U)O rdered By: Leonard Salazar on 02-03-2023 Bilirubin Ql (U) Negative Negative [facility] Bilirubin.total [Mass/volume ] in Serum or PlasmaOrdered By: Leonard Salazar on 02-03-2023 Bilirubin [Mass/Vol] 0.3 mg/dL 0.3-1.0 [facility] Calcium [Mass/volume] in Ser um or PlasmaOrdered By: Leonard Salazar on 02-03-2023 Calcium [Mass/Vol] 8.4 mg/dL 8.6-10.3 [facility] Cannabinoids [Presence] in U rine by Screen methodOrdered By: Leonard Salazar on 02-03-2023 Cannabinoids Screen Ql (U) Negative Negative [facility] Comment on above: These are unconfirme d results and should not be used for legal purposes. Drug Cut-Off Concentration: AMPH 1000 ng/mL SARA 200 ng/mL MARTÍNEZ 200 ng/mL COCM 300 ng/mL OP 300 ng/mL PCP 25 ng/mL THC 20 ng/mL Carbon dioxide, total [Moles /volume] in Serum or PlasmaOrdered By: Leonard Salazar on 02-03-2023 CO2 [Moles/Vol] 27.6 mmol/L 21.0-31.0 [facility] Casts typing in urine sedime nt by light microscopyOrdered By: Leonard Salazar on 02-03-2023 Casts LM Nom (Urine sed) None seen [LPF] None Seen [facility] Chloride [Moles/volume] in S maris or PlasmaOrdered By: Leonard Salazar on 02-03-2023 Chloride [Moles/Vol] 104 mmol/L 98-107 [facility] Color Auto (U)Ordered By: Samia Salazar on 02-03-2023 Color (U) Yellow Yellow [facility] Complete Blood Count Auto Di ffon 02-03-2023 Basophils (Bld) [#/Vol] 0.0 10*3/uL Normal 0.0-0.2 [facility] Comment on above: Result Comment: PERF ORMED BY: [place] [address] PATHOLOGIST INTEGRATION TECHNICIAN DANYELL LIVINGSTON M.D. Performed By: #### E FLOWER, CMP, CBC #### [facility] [address] [place] [address] [place] Basophils/100 WBC (Bld) 0.4 % Normal . F [facility] Comment on above: Performed By: #### E FLOWER, CMP, CBC #### [facility] [address] [place] [address] [place] Eosinophils (Bld) [#/Vol] 0.1 10*3/uL Normal 0.0-0.45 [facility] Comment on above: Performed By: #### E FLOWER, CMP, CBC #### [facility] [address] [place] [address] [place] Eosinophils/100 WBC (Bld) 0.9 % Normal . [facility] Comment on above: Performed By: #### E FLOWER, CMP, CBC #### [facility] [address] [place] [address] [place] Erythrocyte distribution width (RBC) [Ratio] 14.0 % Normal 11.9-15.3 [facility] Comment on above: Performed By: #### E FLOWER, CMP, CBC #### [address] Hematocrit (Bld) [Volume fraction] 39.9 % Normal 34.0-46.4 [facility] Comment on above: Performed By: #### E MICHELLE CRENSHAW, CBC #### [address] Hemoglobin (Bld) [Mass/Vol] 13.4 g/dL Normal 11.8-15.4 [facility] Comment on above: Performed By: #### E MICHELLE CRENSHAW, CBC #### [address] Lymphocytes (Bld) [#/Vol] 2.8 10*3/uL Normal 1.00-4.8 [facility] Comment on above: Performed By: #### E MICHELLE CRENSHAW, CBC #### [address] Lymphocytes/100 WBC (Bld) 29.7 % Normal . [facility] Comment on above: Performed By: #### E MICHELLE CRENSHAW, CBC #### [address] MCH (RBC) [Entitic mass] 31.0 pg Normal 24.7-34.3 [facility] Comment on above: Performed By: #### E MICHELLE CRENSHAW, CBC #### [address] MCV (RBC) [Entitic vol] 92.6 fL Normal 80-100 [facility] Comment on above: Performed By: #### E MICHELLE CRENSHAW, CBC #### [address] Mean Corpuscular HGB Conc 33.5 g/dL Normal 32.0-35.0 [facility] Comment on above: Performed By: #### E MICHELLE CRENSHAW, CBC #### [address] Monocytes (Bld) [#/Vol] 0.5 10*3/uL Normal 0.0-0.8 [facility] Comment on above: Performed By: #### E MICHELLE CRENSHAW, CBC #### [facility] [address] Monocytes/100 WBC (Bld) 20.22 % High 0.00-20.00 [facility] Comment on above: Result Comment: For adults in ED, MDW > 20.0 may be associated with a higher risk of sepsis during the first 12 hrs of hospital admission Performed By: #### E MICHELLE CRENSHAW, CBC #### [facility] [address] Monocytes/100 WBC (Bld) 5.0 % Normal . [facility] Comment on above: Performed By: #### E MICHELLE CRENSHAW, CBC #### [address] Neutrophils (Bld) [#/Vol] 6.1 10*3/uL Normal 1.8-7.7 [facility] Comment on above: Performed By: #### E MICHELLE CRENSHAW, CBC #### [address] Neutrophils/100 WBC (Bld) 64.0 % Normal . [facility] Comment on above: Performed By: #### E MICHELLE CRENSHAW, CBC #### [address] NRBC% 0.1 /100{WBC} Normal 0-0.5 [facility] Comment on above: Performed By: #### E MICHELLE CRENSHAW, CBC #### [facility] [address] [place] [address] Platelet mean volume (Bld) [Entitic vol] 8.5 fL Normal 6.3-10.7 [facility] Comment on above: Performed By: #### E MICHELLE CRENSHAW, CBC #### [facility] [address] [place] [address] [place] Platelets (Bld) [#/Vol] 252 10*3/uL Normal 150-450 [facility] Comment on above: Performed By: #### E MICHELLE CRENSHAW, CBC #### [facility] [address] [place] [address] RBC (Bld) [#/Vol] 4.31 10*6/uL Normal 3.60-5.00 [facility] Comment on above: Performed By: #### E MICHELLE CRENSHAW, CBC #### [address] WBC (Bld) [#/Vol] 9.5 10*3/uL Normal 3.8-11.6 [facility] Comment on above: Performed By: #### E MICHELLE CRENSHAW, CBC #### [address] Comprehensive Metabolic Pane selam 02-03-2023 Albumin [Mass/Vol] 3.8 g/dL Normal 3.5-5.7 [facility] Comment on above: Performed By: #### E MICHELLE CRENSHAW, CBC #### [facility] [address] [place] [address] Albumin/Globulin [Mass ratio] 1.3 {ratio} Normal [facility] Comment on above: Performed By: #### E MICHELLE CRENSHAW, CBC #### [facility] [address] [place] [address] ALP [Catalytic activity/Vol] 34 U/L Normal 34-104 [facility] Comment on above: Performed By: #### E MICHELLE CRENSHAW, CBC #### [facility] [address] [place] [address] ALT [Catalytic activity/Vol] 7 U/L Normal 7-52 [facility] Comment on above: Performed By: #### E MICHELLE CRENSHAW, CBC #### [facility] [address] [place] [address] Anion gap [Moles/Vol] 9.3 mmol/L Normal 6.0-15.0 [facility] Comment on above: Performed By: #### E FLOWER CMP, CBC #### [facility] [address] [place] [address] AST [Catalytic activity/Vol] 13 U/L Normal 13-39 [facility] Comment on above: Performed By: #### E MICHELLE CRENSHAW, CBC #### [facility] [address] [place] [address] [place] Bilirubin [Mass/Vol] 0.3 mg/dL Normal 0.3-1.0 [facility] Comment on above: Performed By: #### E MICHELLE CRENSHAW, CBC #### [facility] [address] Calcium [Mass/Vol] 8.4 mg/dL Low 8.6-10.3 [facility] Comment on above: Performed By: #### E MICHELLE CRENSHAW, CBC #### [facility] [address] Chloride [Moles/Vol] 104 mmol/L Normal 98-107 [facility] Comment on above: Performed By: #### E MICHELLE CRENSHAW, CBC #### [facility] [address] CO2 [Moles/Vol] 27.6 mmol/L Normal 21.0-31.0 [facility] Comment on above: Performed By: #### E MICHELLE CRENSHAW, CBC #### [facility] [address] [place] [address] [place] Creatinine [Mass/Vol] 0.77 mg/dL Normal 0.60-1.20 [facility] Comment on above: Performed By: #### E MICHELLE CRENSHAW, CBC #### [facility] [address] [place] [address] [place] Creatinine Clr Calc Pharmacy 89.14 [facility] Comment on above: Result Comment: PERF ORMED BY: [place] [address] PATHOLOGIST INTEGRATION TECHNICIAN DANYELL LIVINGSTON M.D. Performed By: #### E MICHELLE CRENSHAW, CBC #### [facility] [address] [place] [address] [place] GFR/1.73 sq M.predicted MDRD (S/P/Bld) [Vol rate/Area] mL/min/{1.73_m2} [facility] Comment on above: Performed By: #### E FLOWER, CMP, CBC #### [facility] [address] Globulin (S) [Mass/Vol] 3.0 g/dL Normal [facility] Comment on above: Performed By: #### E MICHELLE CRENSHAW, CBC #### [facility] [address] Glucose [Mass/Vol] 83 mg/dL Normal 70-100 [facility] Comment on above: Result Comment: [place] Glucose Reference Range is dependent on time and content of last meal. Glucose of more than 200 mg/dL in a nonstressed, ambulatory subject supports the diagnosis of Diabetes Mellitus. ADA recommended reference range Performed By: #### E MICHELLE CRENSHAW, CBC #### [facility] [address] Potassium [Moles/Vol] 3.9 mmol/L Normal 3.5-5.1 [facility] Comment on above: Performed By: #### E MICHELLE CRENSHAW, CBC #### [place] [address] [place] Protein [Mass/Vol] 6.8 g/dL Normal 6.4-8.9 [facility] Comment on above: Performed By: #### E MICHELLE CRENSHAW, CBC #### [place] [address] [place] Sodium [Moles/Vol] 137 mmol/L Normal 136-145 [facility] Comment on above: Performed By: #### E MICHELLE CRENSHAW, CBC #### [facility] [address] [place] [address] [place] Urea nitrogen [Mass/Vol] 17 mg/dL Normal 7-25 [facility] Comment on above: Performed By: #### E MICHELLE CRENSHAW, CBC #### [place] [address] [place] Creatinine [Mass/volume] in Serum or PlasmaOrdered By: Leonard Salazar on 02-03-2023 Creatinine [Mass/Vol] 0.77 mg/dL 0.60-1.20 [facility] Dipstick and Microscopicon 0 02-03-2023 Appearance (U) Cloudy Critically abnormal Clear [facility] Comment on above: Order Comment: Name Collection Type:: Clean-Voided Midstream Performed By: #### U HCG, URDS, ADDONUAPLUS, CUU #### [facility] [address] [place] [address] [place] Bacteria,Urine 1+ High None Seen [facility] Comment on above: Order Comment: Name Collection Type:: Clean-Voided Midstream Performed By: #### U HCG, URDS, ADDONUAPLUS, CUU #### [facility] [address] [place] [address] [place] Bilirubin,Urine Negative Normal Negative [facility] Comment on above: Order Comment: Name Collection Type:: Clean-Voided Midstream Performed By: #### U HCG, URDS, ADDONUAPLUS, CUU #### [facility] [address] [place] [address] [place] Color (U) Yellow Normal Yellow [facility] Comment on above: Order Comment: Name Collection Type:: Clean-Voided Midstream Performed By: #### U HCG, URDS, ADDONUAPLUS, CUU #### [facility] [address] [place] [address] [place] Glucose Ql (U) Normal Normal Normal [facility] Comment on above: Order Comment: Name Collection Type:: Clean-Voided Midstream Performed By: #### U HCG, URDS, ADDONUAPLUS, CUU #### [facility] [address] [place] [address] [place] Hyaline Casts,Urine None Seen Normal 0-1 [facility] Comment on above: Order Comment: Name Collection Type:: Clean-Voided Midstream Performed By: #### U HCG, URDS, ADDONUAPLUS, CUU #### [facility] [address] [place] [address] [place] Ketones Ql (U) Trace High Negative [facility] Comment on above: Order Comment: Name Collection Type:: Clean-Voided Midstream Performed By: #### U HCG, URDS, ADDONUAPLUS, CUU #### [facility] [address] [place] [address] Leukocyte esterase Test strip Ql (U) 1+ High Negative [facility] Comment on above: Order Comment: Name Collection Type:: Clean-Voided Midstream Performed By: #### U HCG, URDS, ADDONUAPLUS, CUU #### [facility] [address] [place] [address] Nitrite,Urine Negative Normal Negative [facility] Comment on above: Order Comment: Name Collection Type:: Clean-Voided Midstream Performed By: #### U HCG, URDS, ADDONUAPLUS, CUU #### [facility] [address] [place] [address] Occult Blood,Urine Negative Normal Negative [facility] Comment on above: Order Comment: Name Collection Type:: Clean-Voided Midstream Performed By: #### U HCG, URDS, ADDONUAPLUS, CUU #### [facility] [address] [place] [address] Other Casts,Urine None Seen Normal None Seen [facility] Comment on above: Order Comment: Name Collection Type:: Clean-Voided Midstream Performed By: #### U HCG, URDS, ADDONUAPLUS, CUU #### [facility] [address] [place] [address] pH (U) 7.5 [pH] Normal 5.0-9.0 [facility] Comment on above: Order Comment: Name Collection Type:: Clean-Voided Midstream Performed By: #### U HCG, URDS, ADDONUAPLUS, CUU #### [facility] [address] [place] [address] Protein,Urine Negative Normal Negative [facility] Comment on above: Order Comment: Name Collection Type:: Clean-Voided Midstream Performed By: #### U HCG, URDS, ADDONUAPLUS, CUU #### [facility] [address] [place] [address] RBC,Urine 1-2 Normal 0-4 [facility] Comment on above: Order Comment: Name Collection Type:: Clean-Voided Midstream Performed By: #### U HCG, URDS, ADDONUAPLUS, CUU #### [facility] [address] [place] [address] Specificy [place],Urine 1.025 Normal 1.001-1.030 [facility] Comment on above: Order Comment: Name Collection Type:: Clean-Voided Midstream Performed By: #### U HCG, URDS, ADDONUAPLUS, CUU #### [facility] [address] [place] [address] Squamous Epithelial Cell,Urine 20-30 High 0-2 [facility] Comment on above: Order Comment: Name Collection Type:: Clean-Voided Midstream Performed By: #### U HCG, URDS, ADDONUAPLUS, CUU #### [facility] [address] [place] [address] Urobilinogen,Urine Normal Normal Normal [facility] Comment on above: Order Comment: Name Collection Type:: Clean-Voided Midstream Performed By: #### U HCG, URDS, ADDONUAPLUS, CUU #### [facility] [address] [place] [address] WBC,Urine 5-9 High 0-4 [facility] Comment on above: Order Comment: Name Collection Type:: Clean-Voided Midstream Performed By: #### U HCG, URDS, ADDONUAPLUS, CUU #### [facility] [address] [place] [address] Drug Screen,Urineon 02-04-20 Amphetamine Screen,Urine Positive High Negative [facility] Comment on above: Performed By: #### U HCG, URDS, ADDONUAPLUS, CUU #### [facility] [address] [place] [address] Barbiturate Screen,Urine Negative Normal Negative [facility] Comment on above: Performed By: #### U HCG, URDS, ADDONUAPLUS, CUU #### [facility] [address] [place] [address] Benzodiazepines Screen,Urine Negative Normal Negative [facility] Comment on above: Performed By: #### U HCG, URDS, ADDONUAPLUS, CUU #### [facility] [address] [place] [address] Cannabinoid Screen,Urine Negative Normal Negative [facility] Comment on above: Result Comment: Thes e are unconfirmed results and should not be used for legal purposes. Drug Cut-Off Concentration: AMPH 1000 ng/mL SARA 200 ng/mL MARTÍNEZ 200 ng/mL COCM 300 ng/mL OP 300 ng/mL PCP 25 ng/mL THC 20 ng/mL PERFORMED BY: [place] [address] PATHOLOGIST INTEGRATION TECHNICIAN DANYELL LIVINGSTON M.D. Performed By: #### U HCG, URDS, ADDONUAPLUS, CUU #### [address] Cocaine Screen,Urine Negative Normal Negative [facility] Comment on above: Performed By: #### U HCG, URDS, ADDONUAPLUS, CUU #### [address] Opiate Screen,Urine Negative Normal Negative [facility] Comment on above: Performed By: #### U HCG, URDS, ADDONUAPLUS, CUU #### [address] Phencyclidine Screen,Urine Negative Normal Negative [facility] Comment on above: Performed By: #### U HCG, URDS, ADDONUAPLUS, CUU #### [place] [address] [place] Eosinophils Auto (Bld) [#/Vo l]Ordered By: Leonard Salazar on 02-03-2023 Eosinophils (Bld) [#/Vol] 0.1 10*3/uL 0.0-0.45 [facility] Eosinophils/100 WBC Auto (Bl d)Ordered By: Leonard Salazar on 02-03-2023 Eosinophils/100 WBC (Bld) 0.9 % . [facility] Erythrocyte distribution wid th Auto (RBC) [Ratio]Ordered By: Leonard Salazar on 02-03-2023 Erythrocyte distribution width (RBC) [Ratio] 14.0 % 11.9-15.3 [facility] Ethanol [Mass/volume] in Ser um or PlasmaOrdered By: Leonard Salazar on 02-03-2023 Ethanol [Mass/Vol] mg/dL [facility] Ethanol [Mass/Vol] TNP [facility] Comment on above: Test not performed Ethyl Alcohol Profileon 01-11 Ethanol [Mass/Vol] mg/dL Normal [facility] Comment on above: Performed By: #### E FLOWER, CMP, CBC #### [facility] [address] Percent Ethanol Not performed Normal [facility] Comment on above: Result Comment: PERF ORMED BY: [address] [place] [address] PATHOLOGIST INTEGRATION TECHNICIAN DANYELL LIVINGSTON M.D. Performed By: #### E FLOWER, CMP, CBC #### [facility] [address] Globulin Calc (S) [Mass/Vol] Ordered By: Leonard Salazar on 02-03-2023 Globulin (S) [Mass/Vol] 3.0 g/dL [facility] Glucose [Mass/volume] in Ser um or PlasmaOrdered By: Leonard Salazar on 02-03-2023 Glucose [Mass/Vol] 83 mg/dL 70-100 [facility] Comment on above: ADA recommended refe rence rangeRandom Glucose Reference Range is dependent on time and content of last meal. Glucose of more than 200 mg/dL in a nonstressed, ambulatory subject supports the diagnosis of Diabetes Mellitus. HCG ( test) [place].rapi d Ql (U)Ordered By: Leonard Salazar on 02-03-2023 HCG ( test) Ql (U) Negative [facility] HCG,Urineon 02-03-2023 Beta HCG ( test) Ql (U) Negative Normal [facility] Comment on above: Order Comment: Name Collection Type:: Clean-Voided Midstream Result Comment: PERF ORMED BY: [place] [address] PATHOLOGIST INTEGRATION TECHNICIAN DANYELL LIVINGSTON M.D. Performed By: #### U HCG, URDS, ADDONUAPLUS, CUU #### [facility] [address] Hematocrit Auto (Bld) [Volum e fraction]Ordered By: Leonard Salazar on 02-03-2023 Hematocrit (Bld) [Volume fraction] 39.9 % 34.0-46.4 [facility] Hemoglobin [Mass/volume] in BloodOrdered By: Leonard Salazar on 02-03-2023 Hemoglobin (Bld) [Mass/Vol] 13.4 g/dL 11.8-15.4 [facility] Ketones Auto test strip (U) [Mass/Vol]Ordered By: Leonard Salazar on 02-03-2023 Ketones (U) [Mass/Vol] Trace Negative [facility] Leukocytes [#/volume] correc neema for nucleated erythrocytes in Blood by Automated counOrdered By: Leonard Salazar on 02-03-2023 WBC corrected for nucl RBC Auto (Bld) [#/Vol] 9.5 10*3/uL 3.8-11.6 [facility] Lymphocytes Auto (Bld) [#/Vo l]Ordered By: Leonard Salazar on 02-03-2023 Lymphocytes (Bld) [#/Vol] 2.8 10*3/uL 1.00-4.8 [facility] Lymphocytes/100 WBC Auto (Bl d)Ordered By: Leonard Salazar on 02-03-2023 Lymphocytes/100 WBC (Bld) 29.7 % . [facility] MCH Auto (RBC) [Entitic mass ]Ordered By: Leonard Salazar on 02-03-2023 MCH (RBC) [Entitic mass] 31.0 pg 24.7-34.3 [facility] MCHC Auto (RBC) [Mass/Vol]Or dered By: Leonard Salazar on 02-03-2023 MCHC (RBC) [Mass/Vol] 33.5 g/dL 32.0-35.0 [facility] MCV Auto (RBC) [Entitic vol] Ordered By: Leonard Salazar on 02-03-2023 MCV (RBC) [Entitic vol] 92.6 fL 80-100 [facility] Monocyte distribution width [Entitic volume] in Blood by AutomatedOrdered By: Leonard Salazar on 02-03-2023 Monocyte distribution width Auto (Bld) [Entitic vol] 20.22 % 0.00-20.00 [facility] Comment on above: For adults in ED, MD W > 20.0 may be associated with a higher risk of sepsis during the first 12 hrs of hospital admission Monocytes Auto (Bld) [#/Vol] Ordered By: Leonard Salazar on 02-03-2023 Monocytes (Bld) [#/Vol] 0.5 10*3/uL 0.0-0.8 [facility] Monocytes/100 WBC Auto (Bld) Ordered By: Leonard Salazar on 02-03-2023 Monocytes/100 WBC (Bld) 5.0 % . [facility] Neutrophils Auto (Bld) [#/Vo l]Ordered By: Loenard Salazar on 02-03-2023 Neutrophils (Bld) [#/Vol] 6.1 10*3/uL 1.8-7.7 [facility] Neutrophils/100 WBC Auto (Bl d)Ordered By: Leonard Salazar on 02-03-2023 Neutrophils/100 WBC (Bld) 64.0 % . [facility] Nitrite Test strip Ql (U)Ord ered By: Leonard Salazar on 02-03-2023 Nitrite Ql (U) Negative Negative [facility] No Panel InformationOrdered By: Leonard Salazar on 02-03-2023 Estimated GFR (CKD-EPI) > 60.0 mL/Min [facility] Creatinine Clearance (Chem 89.14 [facility] Nucleated erythrocytes [Pres ence] in Blood by Automated countOrdered By: Leonard Salazar on 02-03-2023 Nucleated RBC Auto Ql (Bld) 0.1 /100{WBC} 0-0.5 [facility] Opiates [Presence] in Urine by Screen methodOrdered By: Leonard Salazar on 02-03-2023 Opiates Screen Ql (U) Negative Negative [facility] Phencyclidine Screen Ql (U)O rdered By: Leonard Salazar on 02-03-2023 Phencyclidine Ql (U) Negative Negative [facility] Platelet mean volume Auto (B ld) [Entitic vol]Ordered By: Leonard Salazar on 02-03-2023 Platelet mean volume (Bld) [Entitic vol] 8.5 fL 6.3-10.7 [facility] Platelets Auto (Bld) [#/Vol] Ordered By: Leonard Salazar on 02-03-2023 Platelets (Bld) [#/Vol] 252 10*3/uL 150-450 [facility] Potassium [Moles/volume] in Serum or PlasmaOrdered By: Leonard Salazar on 02-03-2023 Potassium [Moles/Vol] 3.9 mmol/L 3.5-5.1 [facility] Protein Auto test strip (U) [Mass/Vol]Ordered By: Leonard Salazar on 02-03-2023 Protein (U) [Mass/Vol] Negative Negative [facility] Protein [Mass/volume] in Ser um or PlasmaOrdered By: Leonard Salazar on 02-03-2023 Protein [Mass/Vol] 6.8 g/dL 6.4-8.9 [facility] RBC Auto (Bld) [#/Vol]Ordere d By: Leonard Salazar on 02-03-2023 RBC (Bld) [#/Vol] 4.31 10*6/uL 3.60-5.00 [facility] Serum or plasma albumin/glob ulin mass ratioOrdered By: Leonard Salazar on 02-03-2023 Albumin/Globulin [Mass ratio] 1.3 {ratio} [facility] Serum or plasma anion gap de terminationOrdered By: Leonard Salazar on 02-03-2023 Anion gap [Moles/Vol] 9.3 mmol/L 6.0-15.0 [facility] Sodium [Moles/volume] in Ser um or PlasmaOrdered By: Leonard Salazar on 02-03-2023 Sodium [Moles/Vol] 137 mmol/L 136-145 [facility] Specific gravity Auto test s trip (U) [Rel density]Ordered By: Leonard Salazar on 02-03-2023 Specific gravity (U) [Rel density] 1.025 1.001-1.030 [facility] Squamous epithelial cells de tection in urine sediment by light microscopyOrdered By: Leonard Salazar on 02-03-2023 Epithelial cells.squamous LM Ql (Urine sed) 20-30 [HPF] 0-2 [facility] Urea nitrogen [Mass/volume] in Serum or PlasmaOrdered By: Leonard Salazar on 02-03-2023 Urea nitrogen [Mass/Vol] 17 mg/dL 05-05 [facility] Urine Cultureon 02-03-2023 Bacteria identified Cx Nom (U) 20,000 colonies/ml mixed bacterial skin contaminants 2 Days PERFORMED BY: [place] [address] PATHOLOGIST INTEGRATION TECHNICIAN DANYELL LIVINGSTON M.D. Normal [facility] Comment on above: Performed By: #### U HCG, URDS, ADDONUAPLUS, CUU #### [facility] [address] [place] [address] Urine bacteria detection by automated methodOrdered By: Leonard Salazar on 02-03-2023 Bacteria Auto Ql (U) 1+ None Seen [facility] Urine clarity by refractomet ry automatedOrdered By: Leonard Salazar on 02-03-2023 Clarity Refractometry automated (U) Cloudy Clear [facility] Urine culture routineOrdered By: Leonard Salazar on 02-03-2023 Bacteria identified Cx Nom (U) 2 Days [facility] Urine glucose measurement by automated test strip (mass/volume)Ordered By: Leonard Salazar on 02-03-2023 Glucose Auto test strip (U) [Mass/Vol] Normal mg/dL Normal [facility] Urine hemoglobin detection b y automated test stripOrdered By: Leonard Salazar on 02-03-2023 Hemoglobin Auto test strip Ql (U) Negative Negative [facility] Urine leukocyte esterase det ection by automated test stripOrdered By: Leonard Salazar on 02-03-2023 Leukocyte esterase Auto test strip Ql (U) 1+ Negative [facility] Urobilinogen Auto test strip (U) [Mass/Vol]Ordered By: Leonard Salazar on 02-03-2023 Urobilinogen (U) [Mass/Vol] Normal mg/dL Normal [facility] WBC Auto (Bld) [#/Vol]Ordere d By: Leonard Salazar on 02-03-2023 WBC (Bld) [#/Vol] 9.5 10*3/uL 3.8-11.6 [facility] pH Auto test strip (U)Ordere d By: Leonard Salazar on 02-03-2023 pH (U) 7.5 [pH] 5.0-9.0 [facility] ED Note-Physicianon 01-28-20 ED Note-Physician [id number] Normal [facility] Cholesterol [Mass/volume] in Serum or PlasmaOrdered By: Bobo Shields on 01-15-2023 Cholesterol [Mass/Vol] 220 mg/dL 140-200 [facility] Comment on above: Chol less than 200 m g/dl low riskChol 201-239 mg/dl borderline riskChol 240 mg/dl and greater high risk Cholesterol in LDL Calc [Mas s/Vol]Ordered By: Bobo Shields on 01-15-2023 Cholesterol in LDL [Mass/Vol] 150 mg/dL 0-100 [facility] Comment on above: LDL ATP III CLASSIFI CATIONLDL less than 100 mg/dL OptimalLDL 100-129 mg/dL Near or above optimalLDL 130-159 mg/dL Borderline highLDL 160-189 mg/dL HighLDL greater than 189 mg/dL Very high Cholesterol in VLDL Calc [Ma ss/Vol]Ordered By: Bobo Shields on 01-15-2023 Cholesterol in VLDL [Mass/Vol] 23 mg/dL [facility] Lipid Panelon 01-15-2023 Cholesterol [Mass/Vol] 220 mg/dL High 140-200 [facility] Comment on above: Result Comment: Chol less than 200 mg/dl low risk Chol 201-239 mg/dl borderline risk Chol 240 mg/dl and greater high risk Performed By: #### U HCG, URDS, ADDONUAPLUS, CUU #### [facility] [address] [place] [address] Cholesterol in HDL [Mass/Vol] 46 mg/dL Normal 35-85 [facility] Comment on above: Result Comment: HDL CHOL ATP-III CLASSIFICATION Cardiovascular Risk HDL > or equal to 60 mg/dL LOW HDL < 40 mg/dL HIGH Performed By: #### U HCG, URDS, ADDONUAPLUS, CUU #### [facility] [address] Cholesterol.total/Andra sterol in HDL [Mass ratio] 4.8 {ratio} Normal <5.0 [facility] Comment on above: Performed By: #### U HCG, URDS, ADDONUAPLUS, CUU #### [facility] [address] LDL Cholesterol,Calculated 150 mg/dL High 0-100 [facility] Comment on above: Result Comment: LDL ATP III CLASSIFICATION LDL less than 100 mg/dL Optimal LDL 100-129 mg/dL Near or above optimal LDL 130-159 mg/dL Borderline high LDL 160-189 mg/dL High LDL greater than 189 mg/dL Very high Performed By: #### U HCG, URDS, ADDONUAPLUS, CUU #### [facility] [address] Triglyceride w/Reflex 119 mg/dL Normal 0-149 [facility] Comment on above: Result Comment: TRIG ATP III CLASSIFICATION TRIG less than 150 mg/dL Normal TRIG 150-199 mg/dL Borderline high TRIG 200-500 mg/dL High TRIG greater than 500 mg/dL Very high Standard traceable to the Center for Disease Conrtrol and Prevention (CDC) test method. Performed By: #### U HCG, URDS, ADDONUAPLUS, CUU #### [facility] [address] VLDL CHOLESTEROL 23 mg/dL Normal [facility] Comment on above: Performed By: #### U HCG, URDS, ADDONUAPLUS, CUU #### [facility] [address] Serum or plasma high density lipoprotein (HDL) cholesterol measurementOrdered By: Bobo Shields on 01-15-2023 Cholesterol in HDL [Mass/Vol] 46 mg/dL 35-85 [facility] Comment on above: HDL CHOL ATP-III CLA SSIFICATION Cardiovascular RiskHDL > or equal to 60 mg/dL LOWHDL < 40 mg/dL HIGH Serum or plasma total choles terol/high density lipoprotein (HDL) cholesterol mass ratOrdered By: Bobo Shields on 01-15-2023 Cholesterol.total/Andra sterol in HDL [Mass ratio] 4.8 {ratio} <5.0 [facility] Thyroid Stim Hormone w/Rflxo n 01-15-2023 Thyroid Stim Hormone w/Rflx 1.74 u[iU]/mL Normal 0.45-5.33 [facility] Comment on above: Performed By: #### U HCG, URDS, ADDONUAPLUS, CUU #### [facility] [address] Thyrotropin [Units/volume] i n Serum or PlasmaOrdered By: Bobo Shields on 01-15-2023 TSH Qn 1.74 m[IU]/L 0.45-5.33 [facility] Triglyceride [Mass/volume] i n Serum or PlasmaOrdered By: Bobo Shields on 01-15-2023 Triglyceride [Mass/Vol] 119 mg/dL 0-149 [facility] Comment on above: TRIG ATP III CLASSIF ICATIONTRIG less than 150 mg/dL NormalTRIG 150-199 mg/dL Borderline highTRIG 200-500 mg/dL High TRIG greater than 500 mg/dL Very highStandard traceable to the Center for Disease Conrtrol and Prevention (CDC) test method. Vitamin D 25 Hydroxy Totalon 01-15-2023 Vitamin D 25 Hydroxy Total 15.0 ng/mL Low 30-100 [facility] Comment on above: Result Comment: KAVON MIN D STATUS 25(OH)VITAMIN D RANGE (ng/mL) Deficient <20 Insufficient 20 to <30 Sufficient 30 to 100 Reference: Deb MF,Stephanie NC, Ro CORONEL, et al. Evaluation,treatment, and prevention of vitamin D deficiency; an Endocrine Society clinical practice guideline. JCEM. 2010; 96(7):1911-30. PERFORMED BY: [place] [address] PATHOLOGIST INTEGRATION TECHNICIAN DANYELL LIVINGSTON M.D. Performed By: #### U HCG, URDS, ADDONUAPLUS, CUU #### [facility] [address] [place] [address] Vitamin D+Metabolites [Mass/ volume] in Serum or PlasmaOrdered By: Bobo Shields on 01-15-2023 Vitamin D+Metabolites [Mass/Vol] 15.0 ng/mL 30-100 [facility] Comment on above: VITAMIN D STATUS 25( [...] >=32 R F Ampicillin/Sulbactam 16 I F Piperacillin/Tazobact am <=4 S F Cefazolin <=4 S F Ceftazidime <=1 S F Ceftriaxone <=1 S F Ertapenem <=0.5 S F Imipenem <=0.25 S F Amikacin <=2 S F Gentamicin <=1 S F Tobramycin <=1 S F Ciprofloxacin >=4 R F Levofloxacin >=8 R F Nitrofurantoin <=16 S F Trimethoprim/Sulfamet hoxazole >=320 R F Normal [facility] Comment on above: Performed By: #### P REG #### [facility] [address] [place] [address] Dr. Efren Parra Coding Summary.on 01-14-2023 Coding Summary. CD:[id number] W w+PGhlYWQ+FR4SSWFaL36 btLFdrZ4jH6FAYYpCGslk TBRTRUzUQhNwgeOcKM3ai XNjZXJu IC8+NB1sPOWlAtmhdZYkr 4V0uPL0F20izm2mGHmhlZ Z9GKTlXwUjyjfgp4bwsTt 6IDcuNmluOyBt INMopS99EJW6gS89Ly77r DFwpOSkq1jloPt0MjVnTX QwKLN6eCsjSOuwl6LdYFM iI29jqLYqe5P8 EBJkxZvwiEZcOoVniWT5v A9hMAimfdsvy1btpgrbWj n6jt85aDCmc4H3wUV6L6U wgtQ2YRQxaDZl YfxozGFRoO3ntigpv1jik mtgMgSgZHKzNPo6CJg4YH RslYerXpQhSQ32HMH3YTC sohMoT5KtJCOz dVhiPmN1e4E7Qp4RO5IHF dxkJ7QMFXTNVHfqcAY+PC 94mq18W6RuAihlMnf1MAK pJKZ4gQM1lW8n VTOoGTqbo6A2pMN5V7Cdc rVfrm1xd1zyQLSdSAfkR5 5efGPyh0K9EPFszEM0CFN gdZsmOiNvwA18 Oyc+SHJoiAozt3OlYsxoe 5cup0herNc7FahqKWVfoo OfiSppOPS7x8DkZi3aPEL rmUA1vDY9yM9n NsVlAiH6KKmwK505AfSyt ZLeFcbuC20yH3DunJG+PH BvMnb7MLSqaDbsVQ0yJ9T hZGRpbmctbGVm fYwhOI3xRPTjsaavBJYox S8nVXIpH4e3AfFtVcR7RU vqG5KcIDBncsoxEo16yS5 uCoMjNdH5TKpw C2McxcJ1BFXodNAeAHifQ WU5V93pz4I5WEPbINWsKQ J3gAC3bL8dqZqrfsxcpGW mdDsgdmVydGlj HBmpRBnsG201JUNmlVwkW kNvZGluZyBEYXRlOiAgMD QvMDUvMjAyMzwvdGQ+PHR qPKO7gYnvJTQj zVHpZIpeLc9zhUjzxGetM Y9vISPowdenXKUbjL3oBJ PkaGIpiJxpWQ9oOXYktlw le503OfInRWV9 LGBltOMqN8LtnK7oYtKnQ LIzOSSaX3QulHIqWTrqS8 70MJabJrN0BYFiqzZsC9H sLWFsaWduOiB0 l1I8So1Dz7YgritmZ4Slj NLiYaYkXdrmJEd3Z9HdEc wvdHI+FL61THQrSX35MZj 8YWH3mKoeMWsd LSZaY1WhgH1sClJsFKIiK GRkOyc+PHRhYmxlIHdpZH RoPScxMDAlJyBzdHlsZT0 yPb3eQHOzLOKv dQcutXHuZqHsm1zaJFLoP XgyCH8scUgmX9KzdJV6BZ Jiw9a1Ai50A75lH7RgtUN +IMOatDG9nPD6 xV9pEuKsUqX7CIbnL724O vLrmEGcAmesc7rbb1ffmQ a6InC6EGHpaoPugFhiVDT 3v4IoGw75W57p IHdpZHRoPSIxNSUiIHZhb Tfrnw7rtU1mZd9+PGNvbC B7zCY5tY8bIlYuFdD0TZv vG493TdWuqXDn Tcruw8crk4pqeHh4CoKbO WMqgeGiqWypGDF0h7TcWm 06K2GijImho8FtWba9ec0 8bEMcx7P0yPG6 D1HaVSRhrgereEXveJznT K1qZMYrllpfEFGpfN0sZY LgR4u9FrAhVmX1LTztC2X zhdI2HIRsfITo JCDmaUFAyG3jkmguc1mmd nazMnMxHSLuJCc0GDp1DG FfiHlkRkPySAR7FjS3CBU 5fWChuD6ddLai tzbzsR9cGwt+WVB5mLEfh NSZPR4zWdbxeWI+PHRkIH I5rPqzYNquSIRbhZ7kQOC cG6l3CiCiDzH4 RNxtY2UektZ6KOMnwODuK ZHtxSXIlC5oyrqxp7hiza ukXxZjTDWmYXp5JDc9EVG saWduOiBsZWZ0 ApU4WSO9fFAytA2yvScel baucI8cNot+QmlydGggRG E4JIf3R3OwFtn6JHIcvIa aUC0uoAQiELfi Tl0gxOgruBpxKJ8dSPQjl gxud263EzVev3moRSQcmZ HyLSxpTOZ2U72xs7M8VKK cOMHhDWU4yAI2 zI9ruTfqucxhpSEmoAzpp oEucWnqENveJQsdT883RP VboFkuVlVpESr5T2TwQoa 1ROAefIqnUU8p gZJdOHpbTq4kuWhjsXajI P1nATReslwyx733PxNzq1 luJZWpjBIyFVbxEOR0C47 ju0T2WGCaKVTe KRX2ePI3tM5wuLqwzfllg GVmdDsgdmVydGljYWwtYW jvK096VZKdjWjxTcFmsUy 2H0ExSrp4YBXm iDtwUG5nxMZvABvnOa6qq BftzFvkLK8nNSUdpcepi2 89BmBpr9diBNKtlHZnKBx eHKC9Z60tp7R0 SEKtCIJzINV3dEI7nN0zx GlnbjogbGVmdDsgdmVydG okATwyAIpdK178KCKicHb nPlBhdGllbnQg UVbtQJl9E8BcFnqqbNV+P Q01CNLqYF60hHZkwTIlt0 nnvKp1XtIlPUVyFWE6cPm rJUuyb6ZoOFBt M58rxZNtr6H5SODhzNvmd SIxTiPctEV2zB3nZRzuva xkq5pouikaUmxlv1lsqx3 8qH27Y48rEHmm ZHRoPSIzMCUiIHZhbGlnb s8inL7jVv8+KFTetOT7xF O2tS0oJTBtVrD4OPxvD26 9InRvcCIvPjxj k1pjp5tqbPu4EtW9XTPyt pJgrNcwJSG7s5KeHx12C5 9sIHdpZHRoPSIyMCUiIHZ rsPvlyu7zoC6v Ii8+VEAjnLG6bGY1oL8sR iQzUsL5LPhxF114FzXuoZ WhVkdyH53lH7LbqNW+PHR rIbv0UHNxeYzl CR3puUZuFIsgGn1zPMB8Y nPmUjUbQUylH7SbBEOkwc qqxsiplEA2CJJzAERlrX6 9Jp4kpPwfHPGb wFKNrH2hknoao1hwzlvxE fDzGSUxPNl7PZr0HSFqdE ltAwZlKJA8WjO5BKJ7kPU jmK1ohWwsoxvd cV2bG8KtIWNqgqlvHh12n H8wAuNhEgM9UQieYqc+Rk 4BHUWDSICSALNHVTTBWA4 8UV90oKJhl7D3 tNU5E0SySAAtqzkjsugny KZ6WXJmVGKpbR67ePBbBN zeIz5ix2P7k707THKoZEC dbS54Tk0cxHmo CDNxaZDAuY0xikpuq1nfp pfbPaNeLOLvQUx8DUd5NA LvaLpeWlPkQGS3GqO8MWL 7xINueC3xcFnp ylanmW3zLsc+MDMvMzEvM Zt2DUdkeRC+KDNoJJV0yA wkPIkgDMWniU7dNZNxK0h 9PmRhMiI1NTva M7BfLAVfumfnAo64wY5mJ pDaOdQ2JDlyK1ChccR6GV YccBSjBGqhWHJ5K75rt2N 7TNBuWPOcXCB9 oWK9xY9xoZrvlykqaSHji DsgdmVydGljYWwtYWxpZ2 80QJDsyJhoRcD0FGizQVJ uQL96HS75vWTs f5N1oEJ2W8UkTZIczxsok hxvbWU7MNIaXSJeuT51bV JeQToyUs8rr2P8z526ZYE kICUufO49Yk2e jPuePBYicAEYmL7krdsfv 8trldtnSqNwJEVrAZf0BV i1XMKebObiNbFnFUY7UvR 7AIY3qQAgbB8c aPuurjscaL3tIpj+RmVtY GrmWV73KU96aJGex5Q0zD V4Y3TuOLBpboinrgjboXV 8ZGOpXACewU01 oAXvBZndLd7pv1V6q739K OYdEQFlwF35Oc3kiDntXX ZiqMQWrB3idmrak1qvenp gIzAwMDAwMDt0 HFg9GJIyzIezPkZhNXT8H rS5WGE7lSBqiB1iiImrzb ndoX0zRer+YC8elfgcuwB 5YL43FD72N8Xy PjwvdGFibGU+PHRhYmxlI HdpZHRoPScxMDAlJyBzdH plGO8xFy9nZSUrNOXhtRy fqSBfSjMmj8vi CEItOQktEO6ujIjyC6Nwy QP1DPAhs1t8Qn06C71bG4 JvdXA+ARWzrNU7tHP4vX8 eHrSuSqX5KWog S824HaTroXQvIatpp3qcw 1fhrJl7KyXiCIAhjjKeaK goEHG5v5PgLt72J79bJZl pZHRoPSIyMCUi ZFJspOjuhx4phJ5oNe3+P SIoiSU2iYL1wR0sPeVsFp N8SLhmN586NgJwfQZpBwy zQ94tD1NyhFB+ ZWKhPuv4KQJbcWnkQW6ps SHqSVqvZo9mUMC7ZkUrEp SeKZqlF9KaEKPboebqzjc bdWU6YYIiCUZl pT67Ud2ovRrbVt8bPOZcT LI7WLQsoJVlS1IkxV8gVi DdRDIxXOEjQ0JqbTBjEVi eJ452CCilXzR8 ZWOdsjRoJ5JnHDBusZawZ qW5x1N7Uy8FqZljjSDsNW 7jGiEpUOh7S6ZlCgv3LNQ viLojUI0obHNp SSzjZd7atUxwmJkpCM0jP PMujuksc270DsKua7whTZ ItwTUjTQhrHKA3V84jq3H 7FGSkRSChEEY0 lCN3jJ9ewSfmhnjkaHGee DsgdmVydGljYWwtYWxpZ2 08BYZkvMfcGiVCJih1D2I eVsp1PNCyeUnz TU3laIPaVKyeJm8bpNqxg IjvFY2lWVUrdmiif264Tf Fgm9xyBQMpuFDwCKgnYSV 5P64sj1Z4AXBl KEAcAAQ5iEE5rL4nxPrvb jogbGVmdDsgdmVydGljYW rqTDkvM837UNKyjZnkXn6 FAjt4G4HxLgp6 HIYqaWgsOZ8ekFQdWOlqP g9rfRpcmVmwMD5wJGZvxh ptl758TlDev0spEJWipQR bDGchBKP1H47q f3L5MPPqVTTwDSJ9cMS6u C4knQcorhjmgWZahVfbed UevBdwFXfuDAkiQ030MTD vcDsnPlBheWVy OjwvdGQ+YU53cy88Z3BuU wpaKmj8VKRgLKE7qYQ1jE 2xFEGkLHemj2O2nGX4E2F rlgNuzj2jj0is YXBzZTog (more content not included)... Normal [facility] ECG 12 lead ECGon 01-14-2023 ECG 12 lead ECG [facility] [place] [address] Electrocardiograph Report Signed Patient: Lorna Deutsch MR#: [id number] [birth year] : 1985 Acct:[id number] Age/Sex: 38 / F ADM Date: 01/12/23 Loc: Room: [address] [place] [address] Type: ADM IN Attending Dr: Bobo Shields [...] in Anterior leads Confirmed by ROMÁN RAMOS [facility], RACHAEL ([id number]) on 01/14/2023 4:34:36 PM Referred By: Electronically Signed By:RACHAEL RUDD MD [facility] Transcribed By: MUS Signed By Kane Rudd MD 01/14/23 1634 [facility] ED Note-Physicianon 01-14-20 ED Note-Physician [id number]#1 .[id number]:127 Normal [facility] Correspo ndenceon 01-13-2023 [facility] Correspondence [id number] .[id number]:127 Normal [facility] Alanine aminotransferase [En zymatic activity/volume] in Serum or PlasmaOrdered By: Carol Moses on 01-12-2023 ALT [Catalytic activity/Vol] 10 U/L 752 [facility] Albumin [Mass/volume] in Ser um or Plasma by Bromocresol green (BCG) dye binding methoOrdered By: Carol Moses on 01-12-2023 Albumin BCG dye [Mass/Vol] 5.3 g/dL 3.5-5.7 [facility] Alkaline phosphatase [Enzyma tic activity/volume] in Serum or PlasmaOrdered By: Carol Moses on 01-12-2023 ALP [Catalytic activity/Vol] 50 U/L 34-104 [facility] Amphetamine Screen Ql (U)Ord ered By: Carol Moses on 01-12-2023 Amphetamines Ql (U) Positive Negative [facility] Aspartate aminotransferase [ Enzymatic activity/volume] in Serum or PlasmaOrdered By: Carol Moses on 01-12-2023 AST [Catalytic activity/Vol] 13 U/L 13-39 [facility] Automated erythrocytes count in urine sediment (number/area)Ordered By: Carol Moses on 01-12-2023 RBC Auto (Urine sed) [#/Area] 3-4 [HPF] 0-4 [facility] Automated leukocytes count i n urine sediment (number/area)Ordered By: Carol Moses on 01-12-2023 WBC Auto (Urine sed) [#/Area] 10-19 [HPF] 0-4 [facility] Barbiturates [Presence] in U rine by Screen methodOrdered By: Carol Moses on 01-12-2023 Barbiturates Screen Ql (U) Negative Negative [facility] Basophils Auto (Bld) [#/Vol] Ordered By: Carol Moses on 01-12-2023 Basophils (Bld) [#/Vol] 0.0 10*3/uL 0.0-0.2 [facility] Basophils/100 WBC Auto (Bld) Ordered By: Carol Moses on 01-12-2023 Basophils/100 WBC (Bld) 0.3 % . [facility] Benzodiazepines Screen Ql (U )Ordered By: Carol Moses on 01-12-2023 Benzodiazepines Ql (U) Negative Negative [facility] Benzoylecgonine [Presence] i n Urine by Screen methodOrdered By: Carol Moses on 01-12-2023 Benzoylecgonine Screen Ql (U) Negative Negative [facility] Bilirubin Test strip Ql (U)O rdered By: Carol Moses on 01-12-2023 Bilirubin Ql (U) Negative Negative [facility] Bilirubin.total [Mass/volume ] in Serum or PlasmaOrdered By: Carol Moses on 01-12-2023 Bilirubin [Mass/Vol] 0.6 mg/dL 0.3-1.0 [facility] CARDIAC STACI ADMITon 023 CK [Catalytic activity/Vol] 48 U/L Normal 26-192 [facility] Comment on above: Performed By: #### P REG #### [facility] [address] [place] [address] Dr. Efren Parra CK.MB [Mass/Vol] 0.83 ng/mL Normal <=3.60 [facility] Comment on above: Performed By: #### P REG #### [facility] [address] [place] [address] Dr. Efren Parra HSTROP <4.0 Normal 4.0-51.[address] [facility] Comment on above: Result Comment: CUT- OFF POINTS HAVE BEEN ESTABLISHED BASED ON THE FOURTH UNIVERSAL DEFINITIONS OF MYOCARDIAL INFARCTION. THE UPPER REFERENCE LIMIT (URL) OF TROPONIN, DEFINED THE 99TH PERCENTILE OF cTnI DISTRIBUTION IN A REFERENCE POPULATION, HAS BEEN CONFIRMED THE DECISION THRESHOLD FOR [place] DIAGNOSIS. Performed By: #### P REG #### [facility] [address] [place] [address] Dr. Efren Parra FEMI 31 ng/mL Normal 9-[address] [facility] Comment on above: Performed By: #### P REG #### [facility] [address] [place] [address] Dr. Efren Parra CBC AUTO DIFFon 01-12-2023 BASO # 0.0 103/ul Normal 0.0-0.[address] [facility] Comment on above: Performed By: #### C BC #### [facility] [address] [place] [address] Dr. Efren Parra Basophils/100 WBC (Bld) 0.1 % Critically low 0.2-2.[address] [facility] Comment on above: Performed By: #### C BC #### [facility] [address] [place] [address] Dr. Efren Parra EO # 0.0 103/ul Normal 0.0-0.7 [facility] Comment on above: Performed By: #### C BC #### [facility] [address] [place] [address] Dr. Efren Parra Eosinophils/100 WBC (Bld) 0.1 % Critically low 0.9-7.[address] [facility] Comment on above: Performed By: #### C BC #### [facility] [address] [place] [address] Dr. Efren Parra Erythrocyte distribution width (RBC) [Ratio] 13.2 % Normal 11.0-15.[address] [facility] Comment on above: Performed By: #### C BC #### [facility] [address] [place] [address] Dr. Efren Parra Hematocrit (Bld) [Volume fraction] 45.3 % Normal 36.0-48.[address] [facility] Comment on above: Performed By: #### C BC #### [facility] [address] [place] [address] Dr. Efren Parra Hemoglobin (Bld) [Mass/Vol] 15.4 g/dL Normal 12.0-16.[address] [facility] Comment on above: Performed By: #### C BC #### [facility] [address] [place] [address] Dr. Efren Parra IG # 0.01 10e3/ul Normal 0.00-0.[address] [facility] Comment on above: Performed By: #### C BC #### [facility] [address] [place] [address] Dr. Efren Parra IG % 0.1 % Normal 0.0-0.[address] [facility] Comment on above: Performed By: #### C BC #### [facility] [address] [place] [address] Dr. Efren Parra LYMPH # 2.3 103/ul Normal 1.2-3.[address] [facility] Comment on above: Performed By: #### C BC #### [facility] [address] [place] [address] Dr. Efren Parra Lymphocytes/100 WBC (Bld) 31.1 % Normal 20.5-60.0 [facility] Comment on above: Performed By: #### C BC #### [facility] [address] [place] [address] Dr. Efren Parra MANUAL DIFF REQ NO Normal [facility] Comment on above: Performed By: #### C BC #### [facility] [address] [place] [address] Dr. Efren Parra MCH (RBC) [Entitic mass] 30.4 pg Normal 26.7-34.0 [facility] Comment on above: Performed By: #### C BC #### [facility] [address] [place] [address] Dr. Efren Parra MCHC (RBC) [Mass/Vol] 34.0 g/dL Normal 29.9-35.2 [facility] Comment on above: Performed By: #### C BC #### [facility] [address] [place] [address] Dr. Efren Parra MCV (RBC) [Entitic vol] 89.5 fL Normal 81.0-99.0 [facility] Comment on above: Performed By: #### C BC #### [facility] [address] [place] [address] Dr. Efren Parra MONO # 0.4 103/ul Normal 0.3-0.8 [facility] Comment on above: Performed By: #### C BC #### [facility] [address] [place] [address] Dr. Efren Parra Monocytes/100 WBC (Bld) 5.6 % Normal 1.7-12.0 [facility] Comment on above: Performed By: #### C BC #### [facility] [address] [place] [address] Dr. Efren Parra NEUT # 4.6 103/ul Normal 1.4-6.5 [facility] Comment on above: Performed By: #### C BC #### [facility] [address] [place] [address] Dr. Efren Parra Neutrophils/100 WBC (Bld) 63.0 % Normal 43.0-75.0 [facility] Comment on above: Performed By: #### C BC #### [facility] [address] [place] [address] Dr. Efren Parra Platelet mean volume (Bld) [Entitic vol] 10.5 fL Normal 9.5-13.5 [facility] Comment on above: Performed By: #### C BC #### [facility] [address] [address] [address] Efren Parra PLT 262 103/ul Normal 150-[address] [facility] Comment on above: Performed By: #### C BC #### [facility] [address] [address] [address] Efren Parra RBC 5.06 106/ul Normal 4.20-5.40 [facility] Comment on above: Performed By: #### C BC #### [facility] [address] [address] [address] Efren Parra WBC 7.3 103/ul Normal 4.0-11.0 [facility] Comment on above: Performed By: #### C BC #### [facility] [address] [address] [address] Efren Parra Calcium [Mass/volume] in Ser um or PlasmaOrdered By: Carol Moses on 01-12-2023 Calcium [Mass/Vol] 10.7 mg/dL 8.6-10.3 [facility] Cannabinoids [Presence] in U rine by Screen methodOrdered By: Carol Moses on 01-12-2023 Cannabinoids Screen Ql (U) Negative Negative [facility] Comment on above: These are unconfirme d results and should not be used for legal purposes. Drug Cut-Off Concentration: AMPH 1000 ng/mL SARA 200 ng/mL MARTÍNEZ 200 ng/mL COCM 300 ng/mL OP 300 ng/mL PCP 25 ng/mL THC 20 ng/mL Carbon dioxide, total [Moles /volume] in Serum or PlasmaOrdered By: Carol Moses on 01-12-2023 CO2 [Moles/Vol] 25.9 mmol/L 21.0-31.0 [facility] Chloride [Moles/volume] in S maris or PlasmaOrdered By: Carol Moses on 01-12-2023 Chloride [Moles/Vol] 103 mmol/L 98-107 [facility] Color Auto (U)Ordered By: Shaka Moses on 01-12-2023 Color (U) Yellow Yellow [facility] Complete Blood Count Auto Di ffon 01-12-2023 Basophils (Bld) [#/Vol] 0.0 10*3/uL Normal 0.0-0.2 [facility] Comment on above: Result Comment: PERF ORMED BY: [place] [address] PATHOLOGIST INTEGRATION TECHNICIAN DANYELL LIVINGSTON M.D. Performed By: #### U HCG, URDS, ADDONUAPLUS, CUU #### [facility] [address] [place] [address] Basophils/100 WBC (Bld) 0.3 % Normal . [facility] Comment on above: Performed By: #### U HCG, URDS, ADDONUAPLUS, CUU #### [address] Eosinophils (Bld) [#/Vol] 0.0 10*3/uL Normal 0.0-0.45 [facility] Comment on above: Performed By: #### U HCG, URDS, ADDONUAPLUS, CUU #### [facility] [address] [place] [address] Eosinophils/100 WBC (Bld) 0.2 % Normal . [facility] Comment on above: Performed By: #### U HCG, URDS, ADDONUAPLUS, CUU #### [facility] [address] [place] [address] Erythrocyte distribution width (RBC) [Ratio] 14.2 % Normal 11.9-15.3 [facility] Comment on above: Performed By: #### U HCG, URDS, ADDONUAPLUS, CUU #### [facility] [address] [place] [address] Hematocrit (Bld) [Volume fraction] 47.7 % High 34.0-46.4 [facility] Comment on above: Performed By: #### U HCG, URDS, ADDONUAPLUS, CUU #### [facility] [address] [place] [address] [place] Hemoglobin (Bld) [Mass/Vol] 16.1 g/dL High 11.8-15.4 [facility] Comment on above: Performed By: #### U HCG, URDS, ADDONUAPLUS, CUU #### [address] Lymphocytes (Bld) [#/Vol] 1.7 10*3/uL Normal 1.00-4.8 [facility] Comment on above: Performed By: #### U HCG, URDS, ADDONUAPLUS, CUU #### [address] Lymphocytes/100 WBC (Bld) 25.4 % Normal . [facility] Comment on above: Performed By: #### U HCG, URDS, ADDONUAPLUS, CUU #### [address] MCH (RBC) [Entitic mass] 30.9 pg Normal 24.7-34.3 [facility] Comment on above: Performed By: #### U HCG, URDS, ADDONUAPLUS, CUU #### [address] MCV (RBC) [Entitic vol] 91.9 fL Normal 80-100 [facility] Comment on above: Performed By: #### U HCG, URDS, ADDONUAPLUS, CUU #### [address] Mean Corpuscular HGB Conc 33.7 g/dL Normal 32.0-35.0 [facility] Comment on above: Performed By: #### U HCG, URDS, ADDONUAPLUS, CUU #### [place] [address] [place] Monocytes (Bld) [#/Vol] 0.3 10*3/uL Normal 0.0-0.8 [facility] Comment on above: Performed By: #### U HCG, URDS, ADDONUAPLUS, CUU #### [place] [address] [place] Monocytes/100 WBC (Bld) 17.67 % Normal 0.00-20.00 [facility] Comment on above: Performed By: #### U HCG, URDS, ADDONUAPLUS, CUU #### [facility] [address] [place] [address] [place] Monocytes/100 WBC (Bld) 5.2 % Normal . [facility] Comment on above: Performed By: #### U HCG, URDS, ADDONUAPLUS, CUU #### [facility] [address] Neutrophils (Bld) [#/Vol] 4.5 10*3/uL Normal 1.8-7.7 [facility] Comment on above: Performed By: #### U HCG, URDS, ADDONUAPLUS, CUU #### [facility] [address] [place] [address] Neutrophils/100 WBC (Bld) 68.9 % Normal . [facility] Comment on above: Performed By: #### U HCG, URDS, ADDONUAPLUS, CUU #### [facility] [address] [place] [address] [place] NRBC% 0.1 /100{WBC} Normal 0-0.5 [facility] Comment on above: Performed By: #### U HCG, URDS, ADDONUAPLUS, CUU #### [facility] [address] [place] [address] [place] Platelet mean volume (Bld) [Entitic vol] 8.7 fL Normal 6.3-10.7 [facility] Comment on above: Performed By: #### U HCG, URDS, ADDONUAPLUS, CUU #### [facility] [address] [place] [address] [place] Platelets (Bld) [#/Vol] 275 10*3/uL Normal 150-450 [facility] Comment on above: Performed By: #### U HCG, URDS, ADDONUAPLUS, CUU #### [facility] [address] [place] [address] [place] RBC (Bld) [#/Vol] 5.19 10*6/uL High 3.60-5.00 [facility] Comment on above: Performed By: #### U HCG, URDS, ADDONUAPLUS, CUU #### [facility] [address] [place] [address] WBC (Bld) [#/Vol] 6.5 10*3/uL Normal 3.8-11.6 [facility] Comment on above: Performed By: #### U HCG, URDS, ADDONUAPLUS, CUU #### [facility] [address] [place] [address] Comprehensive Metabolic Pane selam 01-12-2023 Albumin [Mass/Vol] 5.3 g/dL Normal 3.5-5.7 [facility] Comment on above: Performed By: #### U HCG, URDS, ADDONUAPLUS, CUU #### [facility] [address] [place] [address] Albumin/Globulin [Mass ratio] 1.4 {ratio} Normal [facility] Comment on above: Performed By: #### U HCG, URDS, ADDONUAPLUS, CUU #### [address] ALP [Catalytic activity/Vol] 50 U/L Normal 34-104 [facility] Comment on above: Performed By: #### U HCG, URDS, ADDONUAPLUS, CUU #### [facility] [address] [place] [address] ALT [Catalytic activity/Vol] 10 U/L Normal 7-52 [facility] Comment on above: Performed By: #### U HCG, URDS, ADDONUAPLUS, CUU #### [facility] [address] [place] [address] Anion gap [Moles/Vol] 13.1 mmol/L Normal 6.0-15.0 [facility] [place] [facility] Comment on above: Performed By: #### U HCG, URDS, ADDONUAPLUS, CUU #### [facility] [address] [place] [address] AST [Catalytic activity/Vol] 13 U/L Normal 13-39 [facility] Comment on above: Performed By: #### U HCG, URDS, ADDONUAPLUS, CUU #### [facility] [address] Bilirubin [Mass/Vol] 0.6 mg/dL Normal 0.3-1.0 [facility] Comment on above: Performed By: #### U HCG, URDS, ADDONUAPLUS, CUU #### [facility] [address] Calcium [Mass/Vol] 10.7 mg/dL High 8.6-10.3 [facility] Comment on above: Performed By: #### U HCG, URDS, ADDONUAPLUS, CUU #### [address] Chloride [Moles/Vol] 103 mmol/L Normal 98-107 [facility] Comment on above: Performed By: #### U HCG, URDS, ADDONUAPLUS, CUU #### [facility] [address] [place] [address] CO2 [Moles/Vol] 25.9 mmol/L Normal 21.0-31.0 [facility] Comment on above: Performed By: #### U HCG, URDS, ADDONUAPLUS, CUU #### [facility] [address] [place] [address] Creatinine [Mass/Vol] 0.65 mg/dL Normal 0.60-1.20 [facility] Comment on above: Performed By: #### U HCG, URDS, ADDONUAPLUS, CUU #### [facility] [address] [place] [address] [place] Creatinine Clr Calc Pharmacy 105.60 Normal [facility] Comment on above: Result Comment: PERF ORMED BY: [place] [address] PATHOLOGIST INTEGRATION TECHNICIAN DANYELL LIVINGSTON M.D. Performed By: #### U HCG, URDS, ADDONUAPLUS, CUU #### [address] [place] [address] [place] GFR/1.73 sq M.predicted MDRD (S/P/Bld) [Vol rate/Area] mL/min/{1.73_m2} Normal [facility] Comment on above: Performed By: #### U HCG, URDS, ADDONUAPLUS, CUU #### [facility] [address] [place] [address] [place] Globulin (S) [Mass/Vol] 3.9 g/dL Normal [facility] Comment on above: Performed By: #### U HCG, URDS, ADDONUAPLUS, CUU #### [facility] [address] Glucose [Mass/Vol] 107 mg/dL High 70-100 [facility] Comment on above: Result Comment: [facility] Glucose Reference Range is dependent on time and content of last meal. Glucose of more than 200 mg/dL in a nonstressed, ambulatory subject supports the diagnosis of Diabetes Mellitus. ADA recommended reference range Performed By: #### U HCG, URDS, ADDONUAPLUS, CUU #### [facility] [address] [place] [address] [place] Potassium [Moles/Vol] 3.0 mmol/L Low 3.5-5.1 [facility] Comment on above: Performed By: #### U HCG, URDS, ADDONUAPLUS, CUU #### [facility] [address] [place] [address] [place] Protein [Mass/Vol] 9.2 g/dL High 6.4-8.9 [facility] Comment on above: Performed By: #### U HCG, URDS, ADDONUAPLUS, CUU #### [facility] [address] [place] [address] [place] Sodium [Moles/Vol] 139 mmol/L Normal 136-145 [facility] Comment on above: Performed By: #### U HCG, URDS, ADDONUAPLUS, CUU #### [facility] [address] [place] [address] [place] Urea nitrogen [Mass/Vol] 14 mg/dL Normal 7-25 [facility] Comment on above: Performed By: #### U HCG, URDS, ADDONUAPLUS, CUU #### [facility] [address] Consent for Treatmenton Consent for Treatment [id number] .[id number]:127 Normal [facility] Creatinine [Mass/volume] in Serum or PlasmaOrdered By: Carol Moses on 01-12-2023 Creatinine [Mass/Vol] 0.65 mg/dL 0.60-1.20 [facility] DRUG SCREEN RAPID (URINE)on 01-12-2023 AMP Positive Abnormal NEGATIVE [facility] Comment on above: Performed By: #### C BC #### [facility] [address] [place] [address] Dr. Efren Parra BAR Negative Normal NEGATIVE [facility] Comment on above: Performed By: #### C BC #### [facility] [address] [address] [address] Efren Parra BUP Negative Normal NEGATIVE [facility] Comment on above: Performed By: #### C BC #### [facility] [address] [address] [address] Efren Parra BZO Negative Normal NEGATIVE [facility] Comment on above: Performed By: #### C BC #### [facility] [address] [address] [address] Efren Parra RENEA Negative Normal NEGATIVE [facility] Comment on above: Performed By: #### C BC #### [facility] [address] [address] [address] Efren Parra CUT-OFFS SEE BELOW Normal [facility] Comment on above: Result Comment: AMP (Amphetamine): 500ng/mL, BAR (Barbituates): 200 ng/mL, BZO (Benzodiazepines): 150 ng/mL, BUP (Buprenorphine): 10 ng/mL, RENEA (Cocaine): 150 ng/mL, mAMP (Methamphetamine): 500 ng/mL, MTD (Methadone): 200 ng/mL, OPI (Opiates): 100 ng/mL, OXY (Oxycodone): 100 ng/mL, PCP (Phencyclidine): 25 ng/mL, PPX (Propoxyphene): 300 ng/mL, THC (Cannabinoids): 50 ng/mL, TCA (Trycyclic Antidepressants): 300 ng/mL Performed By: #### C BC #### [facility] [address] [place] [address] Dr. Efren Parra DRUG CUT HEADER DRUG CLASS TEST SYSTEM CUT-OFF CONCENTRATIONS ARE FOLLOWS: Normal [facility] Comment on above: Performed By: #### C BC #### [facility] [address] [place] [address] Dr. Efren Parra mAMP Positive Abnormal NEGATIVE [facility] Comment on above: Performed By: #### C BC #### [facility] [address] [place] [address] Dr. Efren Parra MTD Positive Abnormal NEGATIVE [facility] Comment on above: Performed By: #### C BC #### [facility] [address] [place] [address] Dr. Efren Parra OPI Negative Normal NEGATIVE [facility] Comment on above: Performed By: #### C BC #### [facility] [address] [place] [address] Dr. Efren Parra OXY Negative Normal NEGATIVE [facility] Comment on above: Performed By: #### C BC #### [facility] [address] [place] [address] Dr. Efren Parra PCP Negative Normal NEGATIVE [facility] Comment on above: Performed By: #### C BC #### [facility] [address] [place] [address] Dr. Efren Parra PPX Negative Normal NEGATIVE [facility] Comment on above: Performed By: #### C BC #### [facility] [address] [place] [address] Dr. Efren Parra TCA Positive Abnormal NEGATIVE [facility] Comment on above: Performed By: #### C BC #### [facility] [address] [place] [address] Dr. Efren Parra THC Negative Normal NEGATIVE [facility] Comment on above: Performed By: #### C BC #### [facility] [address] [address] [address] Efren Parra Dipstick and Microscopicon 0 01-12-2023 Appearance (U) Cloudy Critically abnormal [facility] Comment on above: Order Comment: Name Collection Type:: Clean-Voided Midstream Performed By: #### U HCG, URDS, ADDONUAPLUS, CUU #### [facility] [address] [place] [address] [place] Bacteria,Urine 4+ High None Seen [facility] Comment on above: Order Comment: Name Collection Type:: Clean-Voided Midstream Performed By: #### U HCG, URDS, ADDONUAPLUS, CUU #### [facility] [address] [place] [address] [place] Bilirubin,Urine Negative Normal Negative [facility] Comment on above: Order Comment: Name Collection Type:: Clean-Voided Midstream Performed By: #### U HCG, URDS, ADDONUAPLUS, CUU #### [facility] [address] [place] [address] [place] Color (U) Yellow Normal Yellow [facility] Comment on above: Order Comment: Name Collection Type:: Clean-Voided Midstream Performed By: #### U HCG, URDS, ADDONUAPLUS, CUU #### [facility] [address] [place] [address] [place] Glucose Ql (U) Normal Normal Normal [facility] Comment on above: Order Comment: Name Collection Type:: Clean-Voided Midstream Performed By: #### U HCG, URDS, ADDONUAPLUS, CUU #### [facility] [address] [place] [address] [place] Hyaline Casts,Urine 9-19 High 0-8 [facility] Comment on above: Order Comment: Name Collection Type:: Clean-Voided Midstream Performed By: #### U HCG, URDS, ADDONUAPLUS, CUU #### [facility] [address] [place] [address] [place] Ketones Ql (U) Trace High Negative [facility] Comment on above: Order Comment: Name Collection Type:: Clean-Voided Midstream Performed By: #### U HCG, URDS, ADDONUAPLUS, CUU #### [facility] [address] [place] [address] Leukocyte esterase Test strip Ql (U) 2+ High Negative [facility] Comment on above: Order Comment: Name Collection Type:: Clean-Voided Midstream Performed By: #### U HCG, URDS, ADDONUAPLUS, CUU #### [address] Nitrite,Urine Positive High Negative [facility] Comment on above: Order Comment: Name Collection Type:: Clean-Voided Midstream Performed By: #### U HCG, URDS, ADDONUAPLUS, CUU #### [address] Occult Blood,Urine Trace High Negative [facility] Comment on above: Order Comment: Name Collection Type:: Clean-Voided Midstream Performed By: #### U HCG, URDS, ADDONUAPLUS, CUU #### [facility] [address] [place] [address] pH (U) 6.0 [pH] Normal 5.0-9.0 [facility] Comment on above: Order Comment: Name Collection Type:: Clean-Voided Midstream Performed By: #### U HCG, URDS, ADDONUAPLUS, CUU #### [facility] [address] [place] [address] [place] Protein,Urine Negative Normal Negative [facility] Comment on above: Order Comment: Name Collection Type:: Clean-Voided Midstream Performed By: #### U HCG, URDS, ADDONUAPLUS, CUU #### [facility] [address] [place] [address] [place] RBC,Urine 3-4 Normal 0-4 [facility] Comment on above: Order Comment: Name Collection Type:: Clean-Voided Midstream Performed By: #### U HCG, URDS, ADDONUAPLUS, CUU #### [place] [address] [place] Specificy [place],Urine 1.020 Normal 1.001-1.030 [facility] Comment on above: Order Comment: Name Collection Type:: Clean-Voided Midstream Performed By: #### U HCG, URDS, ADDONUAPLUS, CUU #### [facility] [address] [place] [address] Squamous Epithelial Cell,Urine 5-9 High 0-2 [facility] Comment on above: Order Comment: Name Collection Type:: Clean-Voided Midstream Performed By: #### U HCG, URDS, ADDONUAPLUS, CUU #### [facility] [address] [place] [address] Urobilinogen,Urine Normal Normal Normal [facility] Comment on above: Order Comment: Name Collection Type:: Clean-Voided Midstream Performed By: #### U HCG, URDS, ADDONUAPLUS, CUU #### [address] WBC,Urine 10-19 High 0-4 [facility] Comment on above: Order Comment: Name Collection Type:: Clean-Voided Midstream Performed By: #### U HCG, URDS, ADDONUAPLUS, CUU #### [address] Discharge Instructionson Discharge Instructions [id number]# 1.00CD:127 Normal [facility] Drug Screen,Urineon 01-13-20 23 Amphetamine Screen,Urine Positive High Negative [facility] Comment on above: Performed By: #### U HCG, URDS, ADDONUAPLUS, CUU #### [address] Barbiturate Screen,Urine Negative Normal Negative [facility] Comment on above: Performed By: #### U HCG, URDS, ADDONUAPLUS, CUU #### [facility] [address] [place] [address] Benzodiazepines Screen,Urine Negative Normal Negative [facility] Comment on above: Performed By: #### U HCG, URDS, ADDONUAPLUS, CUU #### [facility] [address] [place] [address] Cannabinoid Screen,Urine Negative Normal Negative [facility] Comment on above: Result Comment: Thes e are unconfirmed results and should not be used for legal purposes. Drug Cut-Off Concentration: AMPH 1000 ng/mL SARA 200 ng/mL MARTÍNEZ 200 ng/mL COCM 300 ng/mL OP 300 ng/mL PCP 25 ng/mL THC 20 ng/mL PERFORMED BY: [place] [address] PATHOLOGIST INTEGRATION TECHNICIAN DANYELL LIVINGSTON M.D. Performed By: #### U HCG, URDS, ADDONUAPLUS, CUU #### [address] Cocaine Screen,Urine Negative Normal Negative [facility] Comment on above: Performed By: #### U HCG, URDS, ADDONUAPLUS, CUU #### [address] Opiate Screen,Urine Negative Normal Negative [facility] Comment on above: Performed By: #### U HCG, URDS, ADDONUAPLUS, CUU #### [address] Phencyclidine Screen,Urine Negative Normal Negative [facility] Comment on above: Performed By: #### U HCG, URDS, ADDONUAPLUS, CUU #### [facility] [address] [place] [address] ED Clinical Summaryon 2022 ED Clinical Summary [address] [id number] ED Clinical Summary Person Information Name: LORNA DEUTSCH [place] Age: 38 Years : 1985 Sex: Female Language: Swiss PCP: Cris PENA CNP Marital Status: Phone: [phone] Visit Id: Visit Reason: Anxiety; Medical problem [...] 01/12/2023 02:02:29 01/12/2023 02:02:29 01/12/2023 02:02:29 ADDRESS: [address] [place] [address] [address] [id number] [facility] DOC NOTES: MEDICAL INFORMATION: Prescriptions Given: [...] Inhalation 4 times a day. Refills: 1. amphetamine-dextroamp hetamine (Adderall 20 mg Tab) 1 Tablets By Mouth 2 times a day. 30 day supply. Refills: 0. amphetamine-dextroamp hetamine (Adderall 20 mg Tab) 1 Tablets By [...] With: Address: When: Cris PENA [address] [phone] Business (1) In 3 days 01/15/2023 Comments: You can use the hydroxyzine every 8 hours as needed. Please follow-up with your primary care doctor next 2 to 3 days. Please return to the ED for any new or worsening symptoms DIAGNOSIS: Anxiety; Drug-seeking behavior Normal [facility] ED Note-Nursingon 01-12-2023 ED Note-Nursing pt [...] her boyfriend to drive her home Normal [facility] ED Note-Nursing pt arrived to ed fro m home via private car with her boyfriend c/o anxiety. pt states she missed her methadone appointment 4 days ago and has an appointment this morning. pt asking for ativan. pt denies any other compaints at this time. pt is very restless on assessment. [facility] ED Note-Physicianon 01-13-20 ED Note-Physician Basic Information [...] and Complexity of Problems Differential Diagnosis: [] [facility] Data External documents reviewed: [] My [...] In 3 days 01/15/20[address] EDT [address] [place] [address]- Business (1) Additional Instructions: You can use [...] methadone, 180 (more content not included)... Normal [facility] Comment on above: Result Comment: Elec tronically Signed By: Norma Dietz DO.br\Date and Time Signed: 01/12/23 01:54 EDT ED [...] Follow these instructions at home: ? Take aiqg-cqy-implxyh and prescription medicines only as told by [...] A persistent (more content not included)... Normal [facility] ED Patient Summaryon 023 ED Patient Summary [address] [place] [id number] Patient Discharge Instructions Person Information Name: LORNA DEUTSCH Age: 38 Years Arrival Date: 01/12/2023 01:30:57 Discharge Diagnosis: Anxiety; Drug-seeking behavior Primary Care Physician: Cris PENA CNP Provider Information Primary Provider: Norma Dietz DO Advanced Heating And Air Conditioning Mechanic:None The exam and treatment you received in the Emergency Department were for an urgent problem and are not intended as complete care. It is important that you follow up with a doctor, nurse practitioner, or physician?s news production assistant for ongoing care. If your symptoms [...] Follow-up Instructions: With: Address: When: Cris PENA [address] [place] [id number] Business (1) In 3 days 01/15/2023 Comments: [...] opioids can be used to help relieve xjmexkum-fu-hndatc pain and are often prescribed following a [...] guidance from the Food and Drug Administration (www.fda.gov/Drugs/Re sourcesForYou). ? Visit www.cdc.gov/drugoverd ose to learn about the risks of opioids abuse and overdose. (more content not included)... Normal [facility] ER URINE PROFILEon 3 Bilirubin Ql (U) Negative Normal NEGATIVE [facility] Comment on above: Performed By: #### C BC #### [facility] [address] [place] [address] Dr. Efren Parra Clarity (U) CLEAR Normal CLEAR [facility] Comment on above: Performed By: #### C BC #### [facility] [address] [place] [address] Dr. Efren Parra Color (U) YELLOW Normal YELLOW [facility] Comment on above: Performed By: #### C BC #### [facility] [address] [place] [address] Dr. Efren Parra ERUAHD A micrscopic examination will be performed if indicated. Normal [facility] Comment on above: Performed By: #### C BC #### [facility] [address] [place] [address] Dr. Efren Parra Glucose Ql (U) Negative Normal NEGATIVE [facility] Comment on above: Performed By: #### C BC #### [facility] [address] [place] [address] Dr. Efren Parra Hemoglobin Ql (U) SMALL Abnormal NEGATIVE [facility] Comment on above: Performed By: #### C BC #### [facility] [address] [place] [address] Dr. Efren Parra Ketones Ql (U) 15 mg/dl Abnormal NEGATIVE [facility] Comment on above: Performed By: #### C BC #### [facility] [address] [place] [address] Dr. Efren Parra LEUKOCYTES Negative Normal NEGATIVE [facility] Comment on above: Performed By: #### C BC #### [facility] [address] [place] [address] Dr. Efren Parra Nitrite Ql (U) Negative Normal NEGATIVE [facility] Comment on above: Performed By: #### C BC #### [facility] [address] [place] [address] Dr. Efren Parra pH (U) 7.0 [pH] Normal 5-[address] [facility] Comment on above: Performed By: #### C BC #### [facility] [address] [place] [address] Dr. Efren Parra SPEC GRAVITY 1.020 Normal 1.005-<=1.025 [facility] Comment on above: Performed By: #### C BC #### [facility] [address] [place] [address] Dr. Efren Parra UA PROTEIN Negative Normal NEGATIVE/ TRACE [facility] Comment on above: Performed By: #### C BC #### [facility] [address] [place] [address] Dr. Efren Parra UR MICRO IND INDICATED Normal [facility] Comment on above: Performed By: #### C BC #### [facility] [address] [place] [address] Dr. Efren Parra Urobilinogen Qn (U) 1.0 {Adria'U}/dL Normal 0.2 - 1. 0 [facility] Comment on above: Performed By: #### C BC #### [facility] [address] [place] [address] Dr. Efren Parra ETHANOL (BLD ALC)on 01-13-20 23 ALC NOTE NOTE: 80 mg/dl is th e legal limit for a blood alcohol level Normal [facility] Comment on above: Performed By: #### P REG #### [facility] [address] [place] [address] Dr. Efren Parra Ethanol [Mass/Vol] mg/dL Normal [facility] Comment on above: Performed By: #### P REG #### [facility] [address] [place] [address] Dr. Efren Parra Eosinophils Auto (Bld) [#/Vo l]Ordered By: Carol Moses on 01-12-2023 Eosinophils (Bld) [#/Vol] 0.0 10*3/uL 0.0-0.45 [facility] Eosinophils/100 WBC Auto (Bl d)Ordered By: Carol Moses on 01-12-2023 Eosinophils/100 WBC (Bld) 0.2 % . [facility] Erythrocyte distribution wid th Auto (RBC) [Ratio]Ordered By: Carol Moses on 01-12-2023 Erythrocyte distribution width (RBC) [Ratio] 14.2 % 11.9-15.3 [facility] Ethanol [Mass/volume] in Ser um or PlasmaOrdered By: Carol Moses on 01-12-2023 Ethanol [Mass/Vol] mg/dL [facility] Ethanol [Mass/Vol] TNP [facility] Comment on above: Test not performed Ethyl Alcohol Profileon Ethanol [Mass/Vol] mg/dL Normal [facility] Comment on above: Performed By: #### U HCG, URDS, ADDONUAPLUS, CUU #### [facility] [address] Percent Ethanol Not performed Normal [facility] Comment on above: Result Comment: PERF ORMED BY: [place] [address] PATHOLOGIST INTEGRATION TECHNICIAN DANYELL LIVINGSTON M.D. Performed By: #### U HCG, URDS, ADDONUAPLUS, CUU #### [facility] [address] [place] [address] Globulin Calc (S) [Mass/Vol] Ordered By: Carol Moses on 01-12-2023 Globulin (S) [Mass/Vol] 3.9 g/dL [facility] Glucose [Mass/volume] in Ser um or PlasmaOrdered By: Carol Moses on 01-12-2023 Glucose [Mass/Vol] 107 mg/dL 70-100 [facility] Comment on above: ADA recommended refe rence rangeRandom Glucose Reference Range is dependent on time and content of last meal. Glucose of more than 200 mg/dL in a nonstressed, ambulatory subject supports the diagnosis of Diabetes Mellitus. HCG ( test) IAsavanahi d Ql (U)Ordered By: Carol Moses on 01-12-2023 HCG ( test) Ql (U) Negative [facility] HCG,Urineon 01-12-2023 Beta HCG ( test) Ql (U) Negative Normal [facility] Comment on above: Order Comment: Name Collection Type:: Clean-Voided Midstream Result Comment: PERF ORMED BY: [facility] [address] [place] [address] PATHOLOGIST INTEGRATION TECHNICIAN JIANLAN SUN M.D. Performed By: #### U HCG, URDS, ADDONUAPLUS, CUU #### [facility] [address] Hematocrit Auto (Bld) [Volum e fraction]Ordered By: Carol Moses on 01-12-2023 Hematocrit (Bld) [Volume fraction] 47.7 % 34.0-46.4 [facility] Hemoglobin [Mass/volume] in BloodOrdered By: Carol Moses on 01-12-2023 Hemoglobin (Bld) [Mass/Vol] 16.1 g/dL 11.8-15.4 [facility] Ketones Auto test strip (U) [Mass/Vol]Ordered By: Carol Moses on 01-12-2023 Ketones (U) [Mass/Vol] Trace Negative [facility] - UrinalysisOrder ed By: Carol Moses on 01-12-2023 Hyaline casts LM Ql (Urine sed) 9-19 [LPF] 0-8 [facility] Leukocytes [#/volume] correc neema for nucleated erythrocytes in Blood by Automated counOrdered By: Carol Moses on 01-12-2023 WBC corrected for nucl RBC Auto (Bld) [#/Vol] 6.5 10*3/uL 3.8-11.6 [facility] Lymphocytes Auto (Bld) [#/Vo l]Ordered By: Carol Moses on 01-12-2023 Lymphocytes (Bld) [#/Vol] 1.7 10*3/uL 1.00-4.8 [facility] Lymphocytes/100 WBC Auto (Bl d)Ordered By: Carol Moses on 01-12-2023 Lymphocytes/100 WBC (Bld) 25.4 % . [facility] MCH Auto (RBC) [Entitic mass ]Ordered By: Carol Moses on 01-12-2023 MCH (RBC) [Entitic mass] 30.9 pg 24.7-34.3 [facility] MCHC Auto (RBC) [Mass/Vol]Or dered By: Carol Moses on 01-12-2023 MCHC (RBC) [Mass/Vol] 33.7 g/dL 32.0-35.0 [facility] MCV Auto (RBC) [Entitic vol] Ordered By: Carol Moses on 01-12-2023 MCV (RBC) [Entitic vol] 91.9 fL 80-100 [facility] Monocyte distribution width [Entitic volume] in Blood by AutomatedOrdered By: Carol Moses on 01-12-2023 Monocyte distribution width Auto (Bld) [Entitic vol] 17.67 % 0.00-20.00 [facility] Monocytes Auto (Bld) [#/Vol] Ordered By: Carol Moses on 01-12-2023 Monocytes (Bld) [#/Vol] 0.3 10*3/uL 0.0-0.8 [facility] Monocytes/100 WBC Auto (Bld) Ordered By: Carol Moses on 01-12-2023 Monocytes/100 WBC (Bld) 5.2 % . [facility] Neutrophils Auto (Bld) [#/Vo l]Ordered By: Carol Moses on 01-12-2023 Neutrophils (Bld) [#/Vol] 4.5 10*3/uL 1.8-7.7 [facility] Neutrophils/100 WBC Auto (Bl d)Ordered By: Carol Moses on 01-12-2023 Neutrophils/100 WBC (Bld) 68.9 % . [facility] Nitrite Test strip Ql (U)Ord ered By: Carol Moses on 01-12-2023 Nitrite Ql (U) Positive Negative [facility] No Panel InformationOrdered By: Carol Moses on 01-12-2023 Estimated GFR (CKD-EPI) > 60.0 mL/Min [facility] Creatinine Clearance (Chem 105.60 [facility] Nucleated erythrocytes [Pres ence] in Blood by Automated countOrdered By: Carol Moses on 01-12-2023 Nucleated RBC Auto Ql (Bld) 0.1 /100{WBC} 0-0.5 [facility] Opiates [Presence] in Urine by Screen methodOrdered By: Carol Moses on 01-12-2023 Opiates Screen Ql (U) Negative Negative [facility] 01-12-2023 , QUAL Negative Normal NEGATIVE [facility] Comment on above: Performed By: #### C BC #### [facility] [address] [address] [address] Efren Parra PROF 14(COMP METB)on 023 Albumin [Mass/Vol] 4.3 g/dL Normal 3.4-5.0 [facility] Comment on above: Performed By: #### P REG #### [facility] [address] [place] [address] Dr. Efren Parra Albumin/Globulin [Mass ratio] 1.0 {ratio} Normal [facility] Comment on above: Performed By: #### P REG #### [facility] [address] [place] [address] Dr. Efren Parra ALP [Catalytic activity/Vol] 58 U/L Normal 46-116 [facility] Comment on above: Performed By: #### P REG #### [facility] [address] [place] [address] Dr. Efren Parra ALT [Catalytic activity/Vol] 17 U/L Normal 14-59 [facility] Comment on above: Performed By: #### P REG #### [facility] [address] [place] [address] Dr. Efren Parra Anion gap [Moles/Vol] 17.6 mmol/L Normal [facility] Comment on above: Performed By: #### P REG #### [facility] [address] [place] [address] Dr. Efren Parra AST [Catalytic activity/Vol] 11 U/L Critically low 15-37 [facility] Comment on above: Performed By: #### P REG #### [facility] [address] [place] [address] Dr. Efren Parra Bilirubin [Mass/Vol] 0.4 mg/dL Normal 0.2-1.0 [facility] Comment on above: Performed By: #### P REG #### [facility] [address] [place] [address] Dr. Efren Parra Calcium [Mass/Vol] 9.8 mg/dL Normal 8.5-10.1 [facility] Comment on above: Performed By: #### P REG #### [facility] [address] [place] [address] Dr. Efren Parra Chloride [Moles/Vol] 102 mmol/L Normal 98-107 [facility] Comment on above: Performed By: #### P REG #### [facility] [address] [address] [address] Efren Parra CO2 [Moles/Vol] 25.1 mmol/L Normal 21.0-32.0 [facility] Comment on above: Performed By: #### P REG #### [facility] [address] [address] [address] Efren Parra Creatinine [Mass/Vol] 0.75 mg/dL Normal 0.55-1.02 [facility] Comment on above: Performed By: #### P REG #### [facility] [address] [place] [address] Dr. Efren Parra EGFR-AF MOZAMBICAN >60 Normal >=60 [facility] Comment on above: Performed By: #### P REG #### [facility] [address] [address] [address] Efren Parra EGFR-NON AF MOZAMBICAN >60 Normal >=60 [facility] Comment on above: Performed By: #### P REG #### [facility] [address] [place] [address] Dr. Efren Parra Globulin (S) [Mass/Vol] 4.2 g/dL Normal [facility] Comment on above: Performed By: #### P REG #### [facility] [address] [place] [address] Dr. Efren Parra Glucose [Mass/Vol] 105 mg/dL Normal 74-106 [facility] Comment on above: Performed By: #### P REG #### [facility] [address] [address] [address] Efren Parra Potassium [Moles/Vol] 3.7 mmol/L Normal 3.5-5.1 [facility] Comment on above: Performed By: #### P REG #### [facility] [address] [place] [address] Dr. Efren Parra Protein [Mass/Vol] 8.5 g/dL Critically high 6.4-8.[address] [facility] Comment on above: Performed By: #### P REG #### [facility] [address] [address] [address] Efren Parra Sodium [Moles/Vol] 141 mmol/L Normal 136-145 [facility] Comment on above: Performed By: #### P REG #### [facility] [address] [address] [address] Efren Parra Urea nitrogen [Mass/Vol] 17.0 mg/dL Normal 7.0-18.0 [facility] Comment on above: Performed By: #### P REG #### [facility] [address] [address] [address] Efren Parra Urea nitrogen/Creatinine [Mass ratio] 22.7 mg/mg Normal [facility] Comment on above: Performed By: #### P REG #### [facility] [address] [address] [address] Efren Parra Phencyclidine Screen Ql (U)O rdered By: Carol Moses on 01-12-2023 Phencyclidine Ql (U) Negative Negative [facility] Platelet mean volume Auto (B ld) [Entitic vol]Ordered By: Carol Moses on 01-12-2023 Platelet mean volume (Bld) [Entitic vol] 8.7 fL 6.3-10.7 [facility] Platelets Auto (Bld) [#/Vol] Ordered By: Carol Moses on 01-12-2023 Platelets (Bld) [#/Vol] 275 10*3/uL 150-450 [facility] Potassium [Moles/volume] in Serum or PlasmaOrdered By: Carol Moses on 01-12-2023 Potassium [Moles/Vol] 3.0 mmol/L 3.5-5.1 [facility] Protein Auto test strip (U) [Mass/Vol]Ordered By: Carol Moses on 01-12-2023 Protein (U) [Mass/Vol] Negative Negative [facility] Protein [Mass/volume] in Ser um or PlasmaOrdered By: Carol Moses on 01-12-2023 Protein [Mass/Vol] 9.2 g/dL 6.4-8.9 [facility] RBC Auto (Bld) [#/Vol]Ordere d By: Carol Moses on 01-12-2023 RBC (Bld) [#/Vol] 5.19 10*6/uL 3.60-5.00 [facility] Serum or plasma albumin/glob ulin mass ratioOrdered By: Carol Moses on 01-12-2023 Albumin/Globulin [Mass ratio] 1.4 {ratio} [facility] Serum or plasma anion gap de terminationOrdered By: Carol Moses on 01-12-2023 Anion gap [Moles/Vol] 13.1 mmol/L 6.0-15.0 [facility] Sodium [Moles/volume] in Ser um or PlasmaOrdered By: Carol Moses on 01-12-2023 Sodium [Moles/Vol] 139 mmol/L 136-145 [facility] Specific gravity Auto test s trip (U) [Rel density]Ordered By: Carol Moses on 01-12-2023 Specific gravity (U) [Rel density] 1.020 1.001-1.030 [facility] Squamous epithelial cells de tection in urine sediment by light microscopyOrdered By: Carol Moses on 01-12-2023 Epithelial cells.squamous LM Ql (Urine sed) 5-9 [HPF] 0-2 [facility] URINE MICROSCOPIC ONLYon BACTERIA LARGE Abnormal NONE SEEN [facility] Comment on above: Performed By: #### C BC #### [facility] [address] [place] [address] Dr. Efren Parra Bacteria identified Cx Nom (U) INDICATED Normal [facility] Comment on above: Performed By: #### C BC #### [facility] [address] [address] [address] Efren Parra CAST NONE SEEN Normal NONE SEEN [facility] Comment on above: Performed By: #### C BC #### [facility] [address] [address] [address] Efren Parra Crystals LM Nom (Urine sed) NONE SEEN Normal NONE SEEN [facility] Comment on above: Performed By: #### C BC #### [facility] [address] [address] [address] Efren Parra Epithelial cells LM Ql (Urine sed) FEW Abnormal NONE SEEN /RARE [facility] Comment on above: Performed By: #### C BC #### [facility] [address] [place] [address] Dr. Efren Parra MUCOUS NONE SEEN Normal NONE SEEN [facility] Comment on above: Performed By: #### C BC #### [facility] [address] [address] [address] Efren Parra RBC 2-5 Abnormal 0-2 [facility] Comment on above: Performed By: #### C BC #### [facility] [address] [place] [address] Dr. Efren Parra WBC 0-2 Abnormal NONE SEEN [facility] Comment on above: Performed By: #### C BC #### [facility] [address] [place] [address] Dr. Efren Parra Urea nitrogen [Mass/volume] in Serum or PlasmaOrdered By: Carol Moses on 01-12-2023 Urea nitrogen [Mass/Vol] 14 mg/dL 7-25 [facility] Urine Cultureon 01-12-2023 Bacteria identified Cx Nom (U) ORGANISM: Escherichia coli (O:ESCCOL) Malone Count >100,000 Aerobic ATUL Charge (NMIC56) ---- SUSCEPTIBILITY --- ORGANISM: O:ESCCOL ANTIBIOTIC INTERPRETATION ATUL Amikacin S <16 Amoxacillin/K Clavulanate I 1616/8 Ampicillin R >16 Ampicillin/Sulbactam R >16 Aztreonam S <4 Cefazolin S 4 Cefepime S <2 Ceftazidime S <1 Ceftazidime/Avibactam S <4 Ceftolozane/Tazobacta m S <2 Ceftriaxone S <1 Cefuroxime S <4 Ciprofloxacin R >2 Ertapenem S <0.5 Gentamicin S <2 Levofloxacin R >4 Meropenem S <1 Meropenem/Vaborbactam S <2 Nitrofurantoin S <32 Piperacillin/Tazobact am S <8 Tetracycline R >8 Tigecycline S <2 Tobramycin S <2 Trimethoprim/Sulfamet hoxazole R >2 S = SUSCEPTIBLE I = [...] RESISTANT TO ALL B-LACTAM DRUGS. PERFORMED BY: [place] [address] PATHOLOGIST INTEGRATION TECHNICIAN DANYELL LIVINGSTON M.D. [facility] Comment on above: Performed By: #### U HCG, URDS, ADDONUAPLUS, CUU #### [facility] [address] [place] [address] Urine bacteria detection by automated methodOrdered By: Carol Moses on 01-12-2023 Bacteria Auto Ql (U) 4+ None Seen [facility] Urine clarity by refractomet ry automatedOrdered By: Carol Moses on 01-12-2023 Clarity Refractometry automated (U) Cloudy Clear [facility] Urine culture routineOrdered By: Carol Moses on 01-12-2023 Bacteria identified Cx Nom (U) Escherichia coli [facility] Urine glucose measurement by automated test strip (mass/volume)Ordered By: Carol Moses on 01-12-2023 Glucose Auto test strip (U) [Mass/Vol] Normal mg/dL Normal [facility] Urine hemoglobin detection b y automated test stripOrdered By: Carol Moses on 01-12-2023 Hemoglobin Auto test strip Ql (U) Trace Negative [facility] Urine leukocyte esterase det ection by automated test stripOrdered By: Carol Moses on 01-12-2023 Leukocyte esterase Auto test strip Ql (U) 2+ Negative [facility] Urobilinogen Auto test strip (U) [Mass/Vol]Ordered By: Carol Moses on 01-12-2023 Urobilinogen (U) [Mass/Vol] Normal mg/dL Normal [facility] WBC Auto (Bld) [#/Vol]Ordere d By: Carol Moses on 01-12-2023 WBC (Bld) [#/Vol] 6.5 10*3/uL 3.8-11.6 [facility] XR CHEST 1 Von 01-12-2023 XR CHEST [...] AMAYA BRANCH Date: 2023-01-12 00:[address] [facility] pH Auto test strip (U)Ordere d By: Carol Moses on 01-12-2023 pH (U) 6.0 [pH] 5.0-9.0 [facility] Coding Summary.on 2023 Coding Summary. CD:[id number] W w+PGhlYWQ+ME6LGBAiE83 viEDtjE7nZ3NQCZiMDrpl VTPNHLcWVuSygxRmMB7bj XNjZXJu IC8+AJ0rGAXgJwaviUVot 5T4xPD7X25hrc2qCWbttA I2MPHgRkOdvgktz9rlaEm 6IDcuNmluOyBt KRZcwK01EXU7fF57Tm13t NHenBKmw6dthCz3FiWhPR IeFAO8nGyxOUkps1TtALS cW51umCQoz4J9 MCKnhHzwvRTwGxTchVD1t Y2pPJtyogwdf6tjommyXx y5ad71kKMkp8Q7vWC4I4J yekD6BJPmjDQy XnomdAZKqS6cbxbum4xeu izyXqRxJAJePMd8DPi1AM PtiKikHvVaRE10KER0IHG aurFxH5DeBASp eNybFdB6o4R0Xy4SD0DZK bitQ4UZIJPNBXsdcUF+PC 48or73V2RxRctuVkd3NJV iSZE4nKB4dE3g SXCiHItmd4W8xPQ2B8Yhj cZtek7am5cxXHJmSPdoF3 2baNEyd3P1BFQnlJP0WWB biKsiXoFnlP59 Oyc+MOYusCqkg7HcNsihv 6itl1atcQo4OdqkHAStfj NkqUdeGFP1q3LwUk3wGJG bkKL1cPF2sZ6w LsSgXhG9URblG689ChAlx OUuEjqiT53tW1CkwKQ+PH BvDqh2DRKtlZenLP9aI9L hZGRpbmctbGVm fWnpJL9lGFDrncrcTKUxb Y3bGEPnQ0a1KoOfKvM1NO mnH9KtKSCfqxzjWc27yR3 pDbNfJpZ6FGtb X2UwbiK8IBKzqEBzRPccN UQ9B03ot6Y8AATjHZTiGC Z8nND6dF2qtRdezfubjYK mdDsgdmVydGlj BFujKCiyK240KCDmiOqwK kNvZGluZyBEYXRlOiAgMD MvMzEvMjAyMzwvdGQ+PHR rMLZ7hEusLICd uIInUBicNp7ioChrcRpiG T0bJZHjprylDKErkW1nRY QaaCTzdRylMC3pTRArmzn zn415QgQcHTV2 PUQavMRyX6EwqA9oCyOvC QLkZSShW3WyiMPeBAmdG7 34FPvaWjD5BNEfgmUtU6S sLWFsaWduOiB0 r0J3Sa4Sd1JmnevmZ4Ffj UHzKuDhJyucVKj0E8NkVr wvdHI+PI88DCErWB21NIp 9PDV3wJmfVRej IEPbH8UprT7zWyOjHCCkB GRkOyc+PHRhYmxlIHdpZH RoPScxMDAlJyBzdHlsZT0 pXp6wHZJzHJSi tGjhzGVcUxDeh3yiKOGfF IhgJK8ifJhxT6SgdWM9XM Ioh1n4Fm55W52yF6GouZU +YILblYM6tFB8 hP9hZsLzFkP1KFkvJ624M lSwcPFsKvtrn3tlv4wqdD z6EjZ7NOWtayCshKtzKWQ 9a9UdLd95W72b IHdpZHRoPSIxNSUiIHZhb Sgjas5bfW9nOj9+PGNvbC P3kDD0zW3yLdTnVyJ6GJj hQ365GvKjuPQw Zdqse8gqt5kacJk3KuUkU WJqhkBwzQfoXSX5h8JrKh 26Y5EhwYgow8VpElq4fa8 4lSXqr5W7iLD7 I4KrJJKqphrtwWMtiXrrF U6lYBObumgyHAHlfA5kNI YrN0i4FsUdLaW0UEitP8J awjT8ZEUuzYUb CHTvsHWVaU4rhmeww3nfc bkbZgZrUEVdESo2BLg3PS YraMcsWeJhEXX1NpB8CEC 1sMWejV8pcJkj nbryzK7zVtb+TER3yIMcz WYWLI3yCrzkqVE+PHRkIH C4qMfrDGeoYKEhxO9qKOF iX2b0WpDxKfS6 VCteC8KghfP8NWWtsUAuS RKylBLBcZ9azryde8ciyd xpSeEoBVVrTRd9CJt7FTT saWduOiBsZWZ0 MuY8TLW9yQRmsQ0axAgmp hzmpG3sOmi+QmlydGggRG G2RAr5D9JxVgt5LWEtcLp gIA7hdTZoVZmt Nz8cyQymzIivAO5qFQObu epok064HtYys8mgPPZliS WmHLhwTOM4V13xh3X0GND wZXDaUXI2hJE4 bW5sqAjltbmzrOYaoPcxo zGeoEfmDOhrDVzkR553YO AicEutPoIvJPg9D9XpFto 8EWTllLuwQB7g bUGnFHsgAe6xeSmzaXnvR C2xBFCwwdswh197SpOko1 dsETOvuAYkUGqbCMA7H77 fr8P7AVJhRKIc ZML5lEK2qK0syElxlwjlb GVmdDsgdmVydGljYWwtYW xeO758GQMjtBrtIsJbyOt 5G7KmAvz4HAUw eWtqJA8maEPwCWubFr1xv HlqoEvjAX7sIUJuqjhfj3 89UkUia7xzWCIfoPIpLWk wAQO6W44hb3T9 CQIxLPZgWLC4kOG6mO0qe GlnbjogbGVmdDsgdmVydG thGOuyMSaeO792ZSMopVh nPlBhdGllbnQg GFpgKXu4P6PeUvlwkYC+P O19GJOcZW95oFOigKZhk5 xioNj3TiBtUONjGHS5mEy xKTkug8SlKGHz V78toAAco2I7DUVpvSoil OPoVpRgcPI9kU9eOSxzfg pkv5nwyfxrDcpdc9qqfa7 3vC14V23fFOpp ZHRoPSIzMCUiIHZhbGlnb d7fiJ8qNt4+UUUppQS4iE M3oX7fBKAvNlS9ZDlbS17 9InRvcCIvPjxj d7xcn0gvrNm5YdQ8ADAvo yPbcMepAQU6n8QrTs95L9 9sIHdpZHRoPSIyMCUiIHZ joMrved9pmT4s Ii8+RUItpKV1rWD0lT3zF lXlSsI3YUzjE921ZlGosQ WmNlzoT21iF9PxdXZ+PHR jMao3PXBvlRfs YI1zbQFxVGyrHr1wXTU8A rJyOiGtLSvtJ8IyMDClml dlztpkcXY8CKEfHKHxvX1 7Ii2yjTpmLPXm fWYZzI0cldtsk0dxpkerF jWuHLNxVZs1ACp6CDWyhG ykJzPyFOY5SnM3OEL5lOH htU7yjVofsmzf wH8tK0WsBYVlgqfnSh15l Q6mZdUfWiW7NXpmInz+Rk 0BBMUQVEUGLFMYAMPKYV8 8RV42hATzn1J2 qFT3I2BlYHNgzfxsprxcp BC4RQWmGJLxjH79jPCpTF fsNm3hb3N2a102ILGeQKK upN55Un5hqVwp POPbkSIZxB3dcjrcz3wtf cuhSmJtEGShSXt6HKm0ZP ZugKowZwIiJBW8XmA0IMI 1sMNfpO1osLzf uczbjK2hKdd+MDMvMzEvM Rn1EKcskMY+CLDyFMI7gE spOPviNUCtsT0gNXErI7d 2LhGuTiO2ALrr T6UeETAplbwvIn30xB6yZ hVpIiN5INxwJ7NhuvM1DG NqmPLfHJliTJF5K74hz2T 6FNXaVRTaHKV4 sKX1uF5kwQrmxckhvQVfg DsgdmVydGljYWwtYWxpZ2 09FAHweObkHhR0BTfkWEN cRB25YC69kAAp k9E1qTP6I8IaIDLjeunmd qhunYD0TKJkQOLlbA95pL EySGopNn7ba1N7m832GLZ dZRBabR04Wx8y bIepHMCloASVuI3onlkts 6afnbtgWdJlWCXhOLi1OS u8RFJyiJnlKkWoRHA2NtO 3TRB3oHDdcY4e sFaqibpqbG7xYfx+RmVtY LwpHS10BG12lBLif1Q1gG J8S2GqERQcfkimhfefaWZ 3JMWiVSLqsF74 dHLgDQiwMo0sl9N6l075N YNiVZGlqR80Vo7nmOrpXP PwcWADdP1gzbmkg3okpwn gIzAwMDAwMDt0 FWc8TCCcjFhvUvKvIYD2E hX9WZX3wXOlzG3acHkchg jjfK2aZrr+JU2pmigqocW 7RT66MI97D9Bq PjwvdGFibGU+PHRhYmxlI HdpZHRoPScxMDAlJyBzdH iwOR4zPs8oIWXkAFWmcNt ajEZfUcLos6vw JBJpEIswAS2zxVpzO4Lgl NY2GWLfj7n0Lg34Q64cH1 JvdXA+FFJglYG4qNI5wF9 zFiFvAnQ4CBis U770BxPssKCdSjecj4sgf 4zonPs0RbElFSAfkfVckC qbIIJ4t4YyVd02L87cECy pZHRoPSIyMCUi JINdhZfyzy8azA3uLw2+P GOrjYW8tOX9yB2zHqOzSt G7YFpmK515XtLelDHkMfn hK70hZ6BveZK+ BVKcRrb5MYOqwOquMB9kt KFwRVcpTj8wDPD8MaPcIp GtKAawH5VnNYDihieemox snQS1GFPiJQAj jF39Mp6iaQhhPo9qUQGzD AH1CWPxqZRjI0BfcB3fUm KoBLEvUQLdG3PkvVXjABs lU415XJcmEnE7 INRjmyKaR1UiTYNgpWroV vU0y8A0Eu7MzTajlBBdND 3fGnYkGHm5U1DvUkc4NCZ mfBgnXI7hyKWe MIcqEy9mxLbloYskTL5yK QAwhqxzz148SxWfx0hvIN EwzWJiHZyfBQX3I43mx0H 7JMGiZNUlJTK1 ePM7wW7btKgktbrayMHtc DsgdmVydGljYWwtYWxpZ2 18XIXxeEnkQcAGZxu1B1E wRrm0XBHolCpu TT9tnILnIOyaTh5fuCahz YfiRW1lGELnhragh786Kc Cdl1ibYSUqtYSfLQkfBJQ 6F49qh2G7LAWb WYPvKHJ5kOF8kD0svAnln jogbGVmdDsgdmVydGljYW heHHwlN545KTSuoZihXd9 POac8B3XoLyn3 ZGYkwSgsXF3ktOQqJCopL a4wbLxtcDbkJH6zYHLzlw ojn304WkWif4jsOKUqiYT tWHzfVPJ7D16i i7V9KYHpBTDkAAO8pHU3n I5kgBbwismswOHzuTslyj PiaWlcIQxyYZvhK089ZAH vcDsnPlBheWVy OjwvdGQ+RB78iz13J9QeC fiuPqc4ONPaUQR6gBY7iK 6xIVZoMUydz3L5gDZ3B4N exoSdqg5zv9ti YXBzZTog (more content not included)... Normal [facility] Consent for Treatmenton 12-12 Consent for Treatment [id number] .[id number]:127 Normal [facility] Discharge Instructionson Discharge Instructions [id number]:127 [facility] ED Clinical Summaryon 2022 ED Clinical Summary [address] [address] ED Clinical Summary Person Information Name: [facility] Age: 37 Years : 1985 Sex: Female Language: Swiss PCP: Cris PENA CNP Marital Status: Phone: [phone] Visit Id: Visit Reason: Medication refill; MED [...] 01/08/2023 17:58:58 01/08/2023 17:58:58 01/08/2023 17:58:58 ADDRESS: [address] [place] [id number] PHYS DOC NOTES: MEDICAL INFORMATION: Prescriptions Given: Medications to Continue Taking That Have Changed Printed Prescriptions START: amphetamine-dextroamp hetamine (Adderall 30 mg oral tablet) 1 Tablets By Mouth 2 times a day for 3 Days. Refills: 0. Other Medications START: amphetamine-dextroamp hetamine (Adderall 20 mg Tab) 1 Tablets By Mouth 2 times a day. 30 day supply. Refills: 0. START: amphetamine-dextroamp hetamine (Adderall 20 mg Tab) 1 Tablets By [...] Follow up: With: Address: When: Cris PENA [address] [place] [id number] Business (1) In 3 days 01/11/2023 DIAGNOSIS: Medicine refill Normal [facility] ED Note-Physicianon 01-09-20 ED Note-Physician Basic [...] Encounter for issue of repeat prescription) Orders: amphetamine-dextroamp hetamine, 30 mg, 1 tab(s), Oral, BID for [...] In 3 days 01/11/2023 EDT [address] [place] [address] [facility] (1) Additional Instructions: Patient Education Medicine Refill at the Emergency Department Attestation Patient seen and evaluated by the physician news production assistant. Attending physician was present in the emergency department and supervised care. This visit was performed by both the physician and an APC. I performed all aspects of the MDM as documented. This report was transcribed using voice recognition software. Every effort was made to ensure accuracy, however, inadvertently computerized technical testing engineer mistakes may be present. Appropriate healthcare PPE [...] gabapentin 400 mg (more content not included)... [facility] Comment on above: Result Comment: Elec tronically [...] Reviewed: 10/11/2018 Elsevier Patient Education ? 2020 [employer] [facility] ED Patient Summaryon 023 ED Patient Summary [place] [id number] Patient Discharge Instructions Person Information Name: LORNA DEUTSCH Age: 37 Years Arrival Date: 01/08/2023 16:38:03 Discharge Diagnosis: Medicine refill Primary Care Physician: Cris PENA CNP Provider Information Primary Provider: Derrell Orantes DO [employer] Mechanic:Ricco Hoang PA-C The exam and treatment you received in the Emergency Department were for an urgent problem and are not intended as complete care. It is important that you follow up with a doctor, nurse practitioner, or physician?s news production assistant for ongoing care. If your symptoms become worse or you do not improve as expected and you are unable to reach your usual health care provider, you should return to the Emergency Department. We are available 24 hours a day. LORNA DEUTSCH has been given the following list of patient education materials, prescriptions and follow-up instructions: Follow-up Instructions: With: Address: When: Cris SARAVIARONALDO [address] [place], [place] [id number] [facility] (1) In 3 days 01/11/2023 In the event that this physician does not participate in your insurance network, please consult with your insurance company to find a nearby participating provider. Patient Education Materials: Medicine Refill at the Emergency Department A MESSAGE TO ALL PATIENTS REGARDING OPIOIDS PRESCRIPTION OPIOIDS: WHAT YOU NEED TO KNOW Prescription opioids can be used to help relieve puapiorx-eb-xvqfsk pain and are often prescribed following a [...] guidance from the Food and Drug Administration (www.fda.gov/Drugs/Re sourcesForYou). ? Visit www.cdc.gov/drugoverd ose to learn about the risks of opioids abuse and overdose. ? If you believe you may be struggling with addiction, tell your health career manager and ask for guidance or call [facility] National Helpline at 0-686-084-HELP. v [facility] (more content not included)... Normal [facility] CARDIAC STACI ADMITon 023 CK [Catalytic activity/Vol] 77 U/L Normal 26-192 [facility] Comment on above: Performed By: #### P REG #### [facility] [address] [place] [address] Dr. Efren Parra CK.MB [Mass/Vol] 1.65 ng/mL Normal <=3.60 [facility] Comment on above: Performed By: #### P REG #### [facility] [address] [place] [address] Dr. Efren Parra HSTROP <4.0 Normal 4.0-51.3 [facility] Comment on above: Result Comment: CUT- OFF POINTS HAVE BEEN ESTABLISHED BASED ON THE FOURTH UNIVERSAL DEFINITIONS OF MYOCARDIAL INFARCTION. THE UPPER REFERENCE LIMIT (URL) OF TROPONIN, DEFINED THE 99TH PERCENTILE OF cTnI DISTRIBUTION IN A REFERENCE POPULATION, HAS BEEN CONFIRMED THE DECISION THRESHOLD FOR FL DIAGNOSIS. Performed By: #### P REG #### [facility] [address] [place] [address] Dr. Efren Parra FEMI 50 ng/mL Normal 9-82 [facility] Comment on above: Performed By: #### P REG #### [facility] [address] [place] [address] Dr. Efren Parra CBC AUTO DIFFon 12-15-2022 BASO # 0.0 103/ul Normal 0.0-0.1 [facility] Comment on above: Performed By: #### C BC #### [facility] [address] [place] [address] Dr. Efren Parra Basophils/100 WBC (Bld) 0.3 % Normal 0.2-2.0 [facility] Comment on above: Performed By: #### C BC #### [facility] [address] [place] [address] Dr. Efren Parra EO # 0.0 103/ul Normal 0.0-0.7 [facility] Comment on above: Performed By: #### C BC #### [facility] [address] [place] [address] Dr. Efren Parra Eosinophils/100 WBC (Bld) 0.3 % Critically low 0.9-7.[address] [facility] Comment on above: Performed By: #### C BC #### [facility] [address] [place] [address] Dr. Efren Parra Erythrocyte distribution width (RBC) [Ratio] 12.4 % Normal 11.0-15.0 [facility] Comment on above: Performed By: #### C BC #### [facility] [address] [place] [address] Dr. Efren Parra Hematocrit (Bld) [Volume fraction] 42.4 % Normal 36.0-48.0 [facility] Comment on above: Performed By: #### C BC #### [facility] [address] [place] [address] Dr. Efren Parra Hemoglobin (Bld) [Mass/Vol] 15.4 g/dL Normal 12.0-16.0 [facility] Comment on above: Performed By: #### C BC #### [facility] [address] [place] [address] Dr. Efren Parra IG # 0.01 10e3/ul Normal 0.00-0.03 [facility] Comment on above: Performed By: #### C BC #### [facility] [address] [place] [address] Dr. Efren Parra IG % 0.2 % Normal 0.0-0.5 [facility] Comment on above: Performed By: #### C BC #### [facility] [address] [place] [address] Dr. Efren Parra LYMPH # 2.3 103/ul Normal 1.2-3.8 [facility] Comment on above: Performed By: #### C BC #### [facility] [address] [place] [address] Dr. Efren Parra Lymphocytes/100 WBC (Bld) 35.5 % Normal 20.5-60.0 [facility] Comment on above: Performed By: #### C BC #### [facility] [address] [place] [address] Dr. Efren Parra MANUAL DIFF REQ NO Normal [facility] Comment on above: Performed By: #### C BC #### [facility] [address] [place] [address] Dr. Efren Parra MCH (RBC) [Entitic mass] 30.9 pg Normal 26.7-34.0 [facility] Comment on above: Performed By: #### C BC #### [facility] [address] [place] [address] Dr. Efren Parra MCHC (RBC) [Mass/Vol] 36.3 g/dL Critically high 29.9-35.2 [facility] Comment on above: Performed By: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 5.9 E12/L [facility] HemeAutoSS WBC corrected for nucl RBC Auto (Bld) [#/Vol] 6.2 E9/L Normal 4.0 - 11.0 E9/L [facility] HemeAutoSS MICRO OTHER TESTSOrdered By: Edna Novak on 11-10-2022 Rapid COV Int NEG [place]l Pass (11/10/22 12:58 AM) Normal [facility] Rapid COV Int POS Ctl [place] (11/10/22 12:58 AM) Normal [facility] SARS-CoV+SARS-CoV-2 (COVID-19) Ag IA.rapid Ql (Resp) Not Detected (11/10/22 12:58 AM) Normal Not Detected [facility] SEROLOGYOrdered By: Edna Novak on 11-10-2022 Beta hCG Ql Negative (11/10/22 12:59 AM) Normal [facility] URINALYSISOrdered By: Bradley Novak on 11-10-2022 Bacteria [...] Interpretation Code Negative [facility] UA Auto SS [place].plasma/[place]. RBC (Bld) [Mass ratio] 4-20 /HPF Normal 0-3/HPF [facility] UA A uto SS Mucus Ql (Urine sed) 2+ (11/10/22 [...] [facility] UA Auto SS Urobilinogen Qn (U) [id number] {Adria'U}/dL Normal 0.0 - 1.0 EU/dL [facility] UA Auto SS WBC Auto Ql (U) Negative (11/10/22 1:49 AM) Normal Negative [facility] UA Auto SS WBC LM.HPF (Urine sed) [#/Area] 0-5 /HPF Normal 0-5/HPF [facility] UA Auto SS COVID-19 SOFIAOrdered By: Ezio Reyes on 08-08-2022 SARS-CoV+SARS-CoV-2 (COVID-19) Ag IA.rapid Ql (Resp) Negative Negative [facility] Comment on above: This is a duplicate Martina SARS Antigen (NATE) result to be used for statistical tracking purpose only. No Panel InformationOrdered By: Rachael Reyes on 08-08-2022 SARS Antigen (LFIA) [facility] XR CHEST 1 Von 06-23-2022 XR CHEST 1 V EXAMINATION: XR CHES T 1 V HISTORY: Cough COMPARISON: Chest x-rays 06/16/2002 TECHNIQUE: Portable chest FINDINGS: The lung parenchyma is free of consolidation or infiltrate. No pneumothorax or pleural effusion. The cardiac, mediastinal and hilar contours are normal. The visualized osseous structures exhibit no gross abnormality. IMPRESSION: Normal chest x-ray Electronically authenticated by: ALBINA BRODERICK Date: 2022-06-22 22:[address] [facility] CBC AUTO DIFFon 06-22-2022 BASO # 0.0 103/ul Normal 0.0-0.1 [facility] Comment on above: Performed By: #### C BC #### [facility] [address] [address] [address] Efren Parra Basophils/100 WBC (Bld) 0.2 % Normal 0.2-2.0 [facility] Comment on above: Performed By: #### C BC #### [facility] [address] [place] [address] Dr. Efren Parra EO # 0.0 103/ul Normal 0.0-0.7 [facility] Comment on above: Performed By: #### C BC #### [facility] [address] [address] [address] Efren Parra Eosinophils/100 WBC (Bld) 0.1 % Critically low 0.9-7.0 [facility] Comment on above: Performed By: #### C BC #### [facility] [address] [place] [address] Dr. Efren Parra Erythrocyte distribution width (RBC) [Ratio] 12.9 % Normal 11.0-15.0 [facility] Comment on above: Performed By: #### C BC #### [facility] [address] [place] [address] Dr. Efren Parra Hematocrit (Bld) [Volume fraction] 37.0 % Normal 36.0-48.0 [facility] Comment on above: Performed By: #### C BC #### [facility] [address] [place] [address] Dr. Efren Parra Hemoglobin (Bld) [Mass/Vol] 12.6 g/dL Normal 12.0-16.0 [facility] Comment on above: Performed By: #### C BC #### [facility] [address] [place] [address] Dr. Efren Parra IG # 0.06 10e3/ul Critically high 0.00-0.03 [facility] Comment on above: Performed By: #### C BC #### [facility] [address] [place] [address] Dr. Efren Parra IG % 0.5 % Normal 0.0-0.5 [facility] Comment on above: Performed By: #### C BC #### [facility] [address] [place] [address] Dr. Efren Parra LYMPH # 4.8 103/ul Critically high 1.2-3.8 [facility] Comment on above: Performed By: #### C BC #### [facility] [address] [place] [address] Dr. Efren Parra Lymphocytes/100 WBC (Bld) 36.3 % Normal 20.5-60.0 [facility] Comment on above: Performed By: #### C BC #### [facility] [address] [place] [address] Dr. Efren Parra MANUAL DIFF REQ NO Normal [facility] Comment on above: Performed By: #### C BC #### [facility] [address] [place] [address] Dr. Efren Parra MCH (RBC) [Entitic mass] 31.7 pg Normal 26.7-34.0 [facility] Comment on above: Performed By: #### C BC #### [facility] [address] [place] [address] Dr. Efren Parra MCHC (RBC) [Mass/Vol] 34.1 g/dL Normal 29.9-35.2 [facility] Comment on above: Performed By: #### C BC #### [facility] [address] [place] [address] Dr. Efren Parra MCV (RBC) [Entitic vol] 93.0 fL Normal 81.0-99.0 [facility] Comment on above: Performed By: #### C BC #### [facility] [address] [place] [address] Dr. Efren Parra MONO # 0.8 103/ul Normal 0.3-0.8 [facility] Comment on above: Performed By: #### C BC #### [facility] [address] [place] [address] Dr. Efren Parra Monocytes/100 WBC (Bld) 5.8 % Normal 1.7-12.0 [facility] Comment on above: Performed By: #### C BC #### [facility] [address] [place] [address] Dr. Efren Parra NEUT # 7.6 103/ul Critically high 1.4-6.5 [facility] Comment on above: Performed By: #### C BC #### [facility] [address] [place] [address] Dr. Efren Parra Neutrophils/100 WBC (Bld) 57.1 % Normal 43.0-75.0 [facility] Comment on above: Performed By: #### C BC #### [facility] [address] [place] [address] Dr. Efren Parra Platelet mean volume (Bld) [Entitic vol] 10.7 fL Normal 9.5-13.5 [facility] Comment on above: Performed By: #### C BC #### [facility] [address] [place] [address] Dr. Efren Parra PLT 270 103/ul Normal 150-450 [facility] Comment on above: Performed By: #### C BC #### [facility] [address] [place] [address] Dr. Efren Parra RBC 3.98 106/ul Critically low 4.20-5.40 [facility] Comment on above: Performed By: #### C BC #### [facility] [address] [place] [address] Dr. Efren Parra WBC 13.2 103/ul Critically high 4.0-11.0 [facility] Comment on above: Performed By: #### C BC #### [facility] [address] [place] [address] Dr. Efren Parra D-DIMERon 06-22-2022 D-DIMER 0.24 mg/L FEU Normal <=0.59 [facility] Comment on above: Performed By: #### C BC #### [facility] [address] [place] [address] Dr. Efren Parra D-DIMER COMMENTS SEE BELOW Normal [facility] Comment on above: Result Comment: Incr [...] hospitalization. Performed By: #### C BC #### [facility] [address] [place] [address] Dr. Efren Parra PROF 14(COMP METB)on 022 Albumin [Mass/Vol] 3.4 g/dL Normal 3.4-5.0 [facility] Comment on above: Performed By: #### C BC #### [facility] [address] [place] [address] Dr. Efren Parra Albumin/Globulin [Mass ratio] 0.9 {ratio} Normal [facility] Comment on above: Performed By: #### C BC #### [facility] [address] [place] [address] Dr. Efren Parra ALP [Catalytic activity/Vol] 49 U/L Normal 46-116 [facility] Comment on above: Performed By: #### C BC #### [facility] [address] [place] [address] Dr. Efren Parra ALT [Catalytic activity/Vol] 14 U/L Normal 14-59 [facility] Comment on above: Performed By: #### C BC #### [facility] [address] [place] [address] Dr. Efren Parra Anion gap [Moles/Vol] 15.1 mmol/L Normal [facility] Comment on above: Performed By: #### C BC #### [facility] [address] [address] [address] Efren Parra AST [Catalytic activity/Vol] 14 U/L Critically low 15-37 [facility] Comment on above: Performed By: #### C BC #### [facility] [address] [place] [address] Dr. Efren Parra Bilirubin [Mass/Vol] 0.2 mg/dL Normal 0.2-1.0 [facility] Comment on above: Performed By: #### C BC #### [facility] [address] [place] [address] Dr. Efren Parra Calcium [Mass/Vol] 8.9 mg/dL Normal 8.5-10.1 [facility] Comment on above: Performed By: #### C BC #### [facility] [address] [place] [address] Dr. Efren Parra Chloride [Moles/Vol] 102 mmol/L Normal 98-107 [facility] Comment on above: Performed By: #### C BC #### [facility] [address] [place] [address] Dr. Efren Parra CO2 [Moles/Vol] 25.9 mmol/L Normal 21.0-32.0 [facility] Comment on above: Performed By: #### C BC #### [facility] [address] [place] [address] Dr. fEren Parra Creatinine [Mass/Vol] 0.72 mg/dL Normal 0.55-1.02 [facility] Comment on above: Performed By: #### C BC #### [facility] [address] [place] [address] Dr. Efren Parra EGFR-AF MOZAMBICAN >60 Normal >=60 [facility] Comment on above: Performed By: #### C BC #### [facility] [address] [place] [address] Dr. Efren Parra EGFR-NON AF MOZAMBICAN >60 Normal >=60 [facility] Comment on above: Performed By: #### C BC #### [facility] [address] [place] [address] Dr. Efren Parra Globulin (S) [Mass/Vol] 3.8 g/dL Normal [facility] Comment on above: Performed By: #### C BC #### [facility] [address] [place] [address] Dr. Efren Parra Glucose [Mass/Vol] 92 mg/dL Normal 74-106 [facility] Comment on above: Performed By: #### C BC #### [facility] [address] [place] [address] Dr. Efren Parra Potassium [Moles/Vol] 4.0 mmol/L Normal 3.5-5.1 [facility] Comment on above: Performed By: #### C BC #### [facility] [address] [place] [address] Dr. Efren Parra Protein [Mass/Vol] 7.2 g/dL Normal 6.4-8.2 [facility] Comment on above: Performed By: #### C BC #### [facility] [address] [place] [address] Dr. Efren Parra Sodium [Moles/Vol] 139 mmol/L Normal 136-145 [facility] Comment on above: Performed By: #### C BC #### [facility] [address] [place] [address] Dr. Efren Parra Urea nitrogen [Mass/Vol] 17.0 mg/dL Normal 7.0-18.0 [facility] Comment on above: Performed By: #### C BC #### [facility] [address] [place] [address] Dr. Efren Parra Urea nitrogen/Creatinine [Mass ratio] 23.6 mg/mg Normal [facility] Comment on above: Performed By: #### C BC #### [facility] [address] [place] [address] Dr. Efren Parra TROPONIN, HIGH SENSITIVITYon 06-22-2022 HSTROP <4.0 Normal 4.0-51.3 [facility] Comment on above: Result Comment: CUT- OFF POINTS HAVE BEEN ESTABLISHED BASED ON THE FOURTH UNIVERSAL DEFINITIONS OF MYOCARDIAL INFARCTION. THE UPPER REFERENCE LIMIT (URL) OF TROPONIN, DEFINED THE 99TH PERCENTILE OF cTnI DISTRIBUTION IN A REFERENCE POPULATION, HAS BEEN CONFIRMED THE DECISION THRESHOLD FOR [place] DIAGNOSIS. Performed By: #### C BC #### [facility] [address] [place] [address] [address] [address] Efren Parra Covid-19 PCR (CVDTB)on SARS-CoV-2 (COVID-19) RNA LUKASZ+probe Ql (Unsp spec) Not detected Normal NOT DETECTED [facility] Comment on above: Result Comment: When [...] for this test is supported by the [employer] Techn[employer] of Health and Human Service's declaration that [...] longer be used). Performed By: #### C VDTB #### [facility] [address] [place] [address] [address] [address] Efren Parra XR CHEST 2 Von 06-16-2022 XR CHEST 2 V EXAMINATION: XR CHES T 2 V HISTORY: Cough COMPARISON: X-rays 09/18/2021 TECHNIQUE: PA and lateral chest x-rays FINDINGS: The lung parenchyma is free of consolidation or infiltrate. No pneumothorax or pleural effusion. The cardiac, mediastinal and hilar contours are normal. The visualized osseous structures exhibit no gross abnormality. IMPRESSION: Normal chest x-rays Electronically authenticated by: ALBINA BRODERICK Date: 2022-06-16 21:[address] [facility] CHEMISTRYOrdered By: SYSTEM SYSTEM on 04-24-2022 Amphetamines Screen method >1000 ng/mL Ql (U) Positive 2 *ABN* (04/24/22 5:12 PM) Invalid Interpretation Code Negative [facility] Comment on above: Result Comment: Crit ical Result verified by repeat analysis\No confirmation requested by Physican\Unconfirmed by alternate method\Critical Result UD_AMPH:POS Called to [facility] AT ER by СВЕТЛАНА CHRISTINA And Read Back For Confirmation at: 04/24/2022 17:56:35 Barbiturates Screen Ql (U) Positive 3 *ABN* (04/24/22 5:12 PM) Invalid Interpretation Code Negative [facility] Comment on above: Result Comment: Crit ical Result verified by repeat analysis\No confirmation requested by Physican\Unconfirmed by alternate method\Critical Result UD_BARB:POS Called to [facility] AT ER by [facility] And Read Back For Confirmation at: 04/24/2022 17:56:35 Benzodiazepines Ql (U) Positive 1 *ABN* (04/24/22 5:12 PM) Invalid Interpretation Code Negative [facility] Comment on above: Result Comment: Crit ical Result verified by repeat analysis\No confirmation requested by Physican\Unconfirmed by alternate method\Critical Result UD_BENZ:POS Called to [facility] AT ER by [facility] And Read Back For Confirmation at: 04/24/2022 [...] 74 [iU]/d Normal 14 - 261 Int._Unit/L [facility] Anion gap [Moles/Vol] 13 mmol/L Normal 6 - 16 mEq/L [facility] Calcium [Mass/Vol] 9.3 mg/dL Normal 8.9 - 11. 1 mg/dL [facility] Chloride [Moles/Vol] 102 mmol/L Normal 101 - 1 11 mmol/L [facility] CO2 [Moles/Vol] 25 mmol/L Normal 21 - 31 mmol/L [facility] Creatinine [Mass/Vol] 0.5 mg/dL Normal 0.5 - 1.3 mg/dL [facility] GFR/1.73 sq M.predicted among blacks MDRD (S/P/Bld) [Vol rate/Area] mL/min/1.73 m2 Normal >=59mL/min/1. 73 m2 [facility] Chem S GFR/1.73 sq M.predicted among non-blacks MDRD (S/P/Bld) [Vol rate/Area] mL/min/1.73 m2 Normal >=59mL/min/1. 73 m2 FT Chem S Glucose [Mass/Vol] 112 mg/dL Normal 55 - 199 mg/dL [facility] Potassium [Moles/Vol] 3.5 mmol/L Normal 3.5 - 5.3 mmol/L [facility] Sodium [Moles/Vol] 136 mmol/L Normal 135 - 145 mmol/L [facility] Troponin I.cardiac [Mass/Vol] 4.80 pg/mL Low 10.10 - 27.10 pg/mL [facility] Urea nitrogen [Mass/Vol] 13 mg/dL Normal 5 - 21 mg/dL [facility] Urea nitrogen/Creatinine [Mass ratio] 26 mg/mg [...] HemeAutoSS Platelets (Bld) [#/Vol] 187.0 E9/L Normal 150. 0 - 500.0 E9/L [facility]eAuto[facility] RBC (Bld) [#/Vol] 4.2 E12/L Low 4.3 - 5.9 E12/L [facility] WBC corrected for nucl RBC Auto (Bld) [#/Vol] 11.0 E9/L Normal 4.0 - 11.0 E9/L [facility]eAutoSS Laboratory - Microbiology an d Antimicrobial susceptibilityon 04-24-2022 Bacteria identified Cx Nom (U) >100,000 cfu/ml Non Fermentering Gram Negative [facility] MICRO OTHER TESTSOrdered By: Carrie Molina on 04-24-2022 Rapid COV Int NEG Ctl Pass (04/24/22 3:50 PM) Normal [facility] Rapid COV Int POS Ctl Pass (04/24/22 3:50 PM) Normal [facility] SARS-CoV+SARS-CoV-2 (COVID-19) Ag IA.rapid Ql (Resp) Not Detected (04/24/22 3:50 PM) Normal Not Detected [facility] URINALYSISOrdered By: Carrie mckee on [...] Interpretation Code Negative [facility] UA Auto SS [place].plasma/[place]. RBC (Bld) [Mass ratio] 0-3 /HPF Normal 0-3/HPF [facility] UA A uto SS Nitrite Ql (U) Positive *ABN* (04/24/22 [...] Desc Clean Catch (04/24/22 5:12 PM) Normal [facility]A Auto SS Urobilinogen Qn (U) [id number] {Adria'U}/dL Normal 0.0 - 1.0 EU/dL [facility] UA Auto SS WBC Auto Ql (U) 3+ *ABN* (04/24/22 5:12 PM) Invalid Interpretation Code Negative [facility] UA Auto SS WBC LM.HPF (Urine sed) [#/Area] /[HPF] Invalid Interpretation Code 0-5/HPF [facility] UA Auto SS CULTURE URINEon 04-13-2022 CULTURE URINE Isolate 1 Escherichia coli >100,000 cfu/ml of ORGANISM 1 Escherichia coli ANTIBIOTIC M.I.C RX STATUS Ampicillin 4 S F Ampicillin/Sulbactam <=2 S F Piperacillin/Tazobact am <=4 S F Cefazolin <=4 S F Ceftazidime <=1 S F Ceftriaxone <=1 S F Ertapenem <=0.5 S F Imipenem <=0.25 S F Amikacin <=2 S F Gentamicin <=1 S F Tobramycin <=1 S F Ciprofloxacin >=4 R F Levofloxacin >=8 R F Nitrofurantoin <=16 S F Trimethoprim/Sulfamet hoxazole >=320 R F Normal [facility] Comment on above: Performed By: #### C #### [facility] [address] [place] [address] Dr. Efren Parra [facility]on SARS-CoV-2 (COVID-19) RNA LUKASZ+probe Ql (Unsp spec) Not detected Normal NOT DETECTED [facility] Comment on above: Result Comment: When [...] for this test is supported by the [place] of Health and Human Service's declaration that [...] used). Performed By: #### C BC #### [facility] [address] [place] [address] Dr. Efren Parra ACETAMINOPHENon 04-10-2022 Acetaminophen [Mass/Vol] ug/mL Critically low 10.0-30.0 [facility] Comment on above: Performed By: #### A CET, ETH, SALYC, CMP #### [facility] [address] [place] [address] Dr. Efren Parra CBC AUTO DIFFon 04-10-2022 BASO # 0.0 103/ul Normal 0.0-0.1 [facility] Comment on above: Performed By: #### C BC #### [facility] [address] [place] [address] Dr. Efren Parra Basophils/100 WBC (Bld) 0.5 % Normal 0.2-2.0 [facility] Comment on above: Performed By: #### C BC #### [facility] [address] [place] [address] Dr. Efren Parra EO # 0.1 103/ul Normal 0.0-0.7 [facility] Comment on above: Performed By: #### C BC #### [facility] [address] [place] [address] Dr. Efren Parra Eosinophils/100 WBC (Bld) 0.9 % Normal 0.9-7.0 [facility] Comment on above: Performed By: #### C BC #### [facility] [address] [place] [address] Dr. Efren Parra Erythrocyte distribution width (RBC) [Ratio] 11.9 % Normal 11.0-15.0 [facility] Comment on above: Performed By: #### C BC #### [facility] [address] [place] [address] Dr. Efren Parra Hematocrit (Bld) [Volume fraction] 42.3 % Normal 36.0-48.0 [facility] Comment on above: Performed By: #### C BC #### [facility] [address] [place] [address] Dr. Efren Parra Hemoglobin (Bld) [Mass/Vol] 14.6 g/dL Normal 12.0-16.0 [facility] Comment on above: Performed By: #### C BC #### [facility] [address] [place] [address] Dr. Efren Parra IG # 0.03 10e3/ul Normal 0.00-0.03 [facility] Comment on above: Performed By: #### C BC #### [facility] [address] [place] [address] Dr. Efren Parra IG % 0.5 % Normal 0.0-0.5 [facility] Comment on above: Performed By: #### C BC #### [facility] [address] [place] [address] Dr. Efren Parra LYMPH # 1.5 103/ul Normal 1.2-3.8 [facility] Comment on above: Performed By: #### C BC #### [facility] [address] [place] [address] Dr. Efren Parra Lymphocytes/100 WBC (Bld) 22.9 % Normal 20.5-60.0 [facility] Comment on above: Performed By: #### C BC #### [facility] [address] [place] [address] Dr. Efren Parra MANUAL DIFF REQ NO Normal [facility] Comment on above: Performed By: #### C BC #### [facility] [address] [place] [address] Dr. Efren Parra MCH (RBC) [Entitic mass] 31.9 pg Normal 26.7-34.0 [facility] Comment on above: Performed By: #### C BC #### [facility] [address] [place] [address] Dr. Efren Parra MCHC (RBC) [Mass/Vol] 34.5 g/dL Normal 29.9-35.2 [facility] Comment on above: Performed By: #### C BC #### [facility] [address] [address] [address] Efren Parra MCV (RBC) [Entitic vol] 92.4 fL Normal 81.0-99.0 [facility] [facility] Comment on above: Performed By: #### C BC #### [facility] [address] [address] [address] Efren Parra MONO # 0.3 103/ul Normal 0.3-0.8 [facility] Comment on above: Performed By: #### C BC #### [facility] [address] [address] [address] Efren Parra Monocytes/100 WBC (Bld) 4.7 % Normal 1.7-12.0 [facility] Comment on above: Performed By: #### C BC #### [facility] [address] [place] [address] Dr. Efren Parra NEUT # 4.7 103/ul Normal 1.4-6.5 [facility] Comment on above: Performed By: #### C BC #### [facility] [address] [place] [address] Dr. Efren Parra Neutrophils/100 WBC (Bld) 70.5 % Normal 43.0-75.0 [facility] Comment on above: Performed By: #### C BC #### [facility] [address] [place] [address] Dr. Efren Parra Platelet mean volume (Bld) [Entitic vol] 11.0 fL Normal 9.5-13.5 [facility] Comment on above: Performed By: #### C BC #### [facility] [address] [address] [address] Efren Parra PLT 226 103/ul Normal 150-[address] [facility] Comment on above: Performed By: #### C BC #### [facility] [address] [address] [address] Efren Parra RBC 4.58 106/ul Normal 4.20-5.40 [facility] Comment on above: Performed By: #### C BC #### [facility] [address] [place] [address] Dr. Efren Parra WBC 6.6 103/ul Normal 4.0-11.[address] [facility] Comment on above: Performed By: #### C BC #### [facility] [address] [place] [address] Dr. Efren Parra DEPAKENE/VALPROICon 04-10-20 DEPAKENE 35.2 ug/ml Critically low 50.0-100.0 [facility] Comment on above: Performed By: #### C BC #### [facility] [address] [place] [address] Dr. Efren Parra DRUG SCREEN RAPID (URINE)on 04-10-2022 AMP Negative Normal NEGATIVE [facility] Comment on above: Performed By: #### C BC #### [facility] [address] [place] [address] Dr. Efren Parra BAR Negative Normal NEGATIVE [facility] Comment on above: Performed By: #### C BC #### [facility] [address] [place] [address] Dr. Efren Parra BUP Positive Abnormal NEGATIVE [facility] Comment on above: Performed By: #### C BC #### [facility] [address] [place] [address] Dr. Efren Parra BZO Negative Normal NEGATIVE [facility] Comment on above: Performed By: #### C BC #### [facility] [address] [place] [address] Dr. Efren Parra RENEA Negative Normal NEGATIVE [facility] Comment on above: Performed By: #### C BC #### [facility] [address] [place] [address] Dr. Efren Parra CUT-OFFS SEE BELOW Normal [facility] Comment on above: Result Comment: AMP [...] ng/mL Performed By: #### C BC #### [facility] [address] [place] [address] Dr. Efren Parra DRUG CUT HEADER DRUG CLASS TEST SYSTEM CUT-OFF CONCENTRATIONS ARE FOLLOWS: Normal [facility] Comment on above: Performed By: #### C BC #### [facility] [address] [place] [address] Dr. Efren Parra mAMP Negative Normal NEGATIVE [facility] Comment on above: Performed By: #### C BC #### [facility] [address] [place] [address] Dr. Efren Parra MTD Negative Normal NEGATIVE [facility] Comment on above: Performed By: #### C BC #### [facility] [address] [place] [address] Dr. Efren Parra OPI Negative Normal NEGATIVE [facility] Comment on above: Performed By: #### C BC #### [facility] [address] [place] [address] Dr. Efren Parra OXY Negative Normal NEGATIVE [facility] Comment on above: Performed By: #### C BC #### [facility] [address] [place] [address] Dr. Efren Parra PCP Negative Normal NEGATIVE [facility] Comment on above: Performed By: #### C BC #### [facility] [address] [place] [address] Dr. Efren Parra PPX Negative Normal NEGATIVE [facility] Comment on above: Performed By: #### C BC #### [facility] [address] [place] [address] Dr. Efren Parra TCA Negative Normal NEGATIVE [facility] Comment on above: Performed By: #### C BC #### [facility] [address] [place] [address] Dr. Efren Parra THC Negative Normal NEGATIVE [facility] Comment on above: Performed By: #### C BC #### [facility] [address] [address] [address] Efren Parra ER URINE PROFILEon 2 Bilirubin Ql (U) Negative Normal NEGATIVE [facility] Comment on above: Performed By: #### U MICRO, DRUGRPD, ERUR #### [facility] [address] [address] [address] Efren Parra Clarity (U) CLEAR Normal CLEAR [facility] Comment on above: Performed By: #### U MICRO, DRUGRPD, ERUR #### [facility] [address] [address] [address] Efren Parra Color (U) LT. YELLOW Normal YELLOW [facility] Comment on above: Performed By: #### U MICRO, DRUGRPD, ERUR #### [facility] [address] [address] [address] Efren Parra ERUAHNiraj A micrscopic examination will be performed if indicated. Normal [facility] Comment on above: Performed By: #### U MICRO, DRUGRPD, ERUR #### [facility] [address] [address] [address] Efren Parra Glucose Ql (U) Negative Normal NEGATIVE [facility] Comment on above: Performed By: #### U MICRO, DRUGRPD, ERUR #### [facility] [address] [address] [address] Efren Parra Hemoglobin Ql (U) Negative Normal NEGATIVE [facility] Comment on above: Performed By: #### U MICRO, DRUGRPD, ERUR #### [facility] [address] [address] [address] Efren Parra Ketones Ql (U) TRACE Abnormal NEGATIVE [facility] Comment on above: Performed By: #### U MICRO, DRUGRPD, ERUR #### [facility] [address] [address] [address] Efren Parra LEUKOCYTES TRACE Abnormal NEGATIVE [facility] Comment on above: Performed By: #### U MICRO, DRUGRPD, ERUR #### [facility] [address] [address] [address] Efren Parra Nitrite Ql (U) Positive Abnormal NEGATIVE [facility] Comment on above: Performed By: #### U MICRO, DRUGRPD, ERUR #### [facility] [address] [address] [address] Efren Parra pH (U) 8.5 [pH] Normal 5-9 [facility] Comment on above: Performed By: #### U MICRO, DRUGRPD, ERUR #### [facility] [address] [address] [address] Efren Parra SPEC GRAVITY 1.015 Normal 1.005-<=1.025 [facility] Comment on above: Performed By: #### U MICRO, DRUGRPD, ERUR #### [facility] [address] [place] [address] Dr. Efren Parra UA PROTEIN Negative Normal NEGATIVE/ TRACE [facility] Comment on above: Performed By: #### U MICRO, DRUGRPD, ERUR #### [facility] [address] [address] [address] Efren Parra UR MICRO IND INDICATED Normal [facility] Comment on above: Performed By: #### U MICRO, DRUGRPD, ERUR #### [facility] [address] [place] [address] Dr. Efren Parra Urobilinogen Qn (U) 0.2 {Adria'U}/dL Normal 0.2 - 1. 0 [facility] Comment on above: Performed By: #### U MICRO, DRUGRPD, ERUR #### [facility] [address] [place] [address] Dr. Efren Parra ETHANOL (BLD ALC)on 04-10-20 ALC NOTE NOTE: 80 mg/dl is th e legal limit for a blood alcohol level Normal [facility] Comment on above: Performed By: #### A CET, ETH, SALYC, CMP #### [facility] [address] [place] [address] Dr. Efren Parra Ethanol [Mass/Vol] mg/dL Normal [facility] Comment on above: Performed By: #### A CET, ETH, SALYC, CMP #### [facility] [address] [address] [address] Efren Parra PREG HCG QUALon 04-10-2022 , QUAL Negative Normal NEGATIVE [facility] Comment on above: Performed By: #### P REG #### [facility] [address] [address] [address] Efren Parra PROF 14(COMP METB)on 022 Albumin [Mass/Vol] 3.6 g/dL Normal 3.4-5.0 [facility] Comment on above: Performed By: #### A CET, ETH, SALYC, CMP #### [facility] [address] [address] [address] Efren Parra Albumin/Globulin [Mass ratio] 1.0 {ratio} Normal [facility] Comment on above: Performed By: #### A CET, ETH, SALYC, CMP #### [facility] [address] [place] [address] Dr. Efren Parra ALP [Catalytic activity/Vol] 62 U/L Normal 46-116 [facility] Comment on above: Performed By: #### A CET, ETH, SALYC, CMP #### [facility] [address] [place] [address] Dr. Efren Parra ALT [Catalytic activity/Vol] 29 U/L Normal 14-59 [facility] Comment on above: Performed By: #### A CET, ETH, SALYC, CMP #### [facility] [address] [place] [address] Dr. Efren Parra Anion gap [Moles/Vol] 10.8 mmol/L Normal [facility] Comment on above: Performed By: #### A CET, ETH, SALYC, CMP #### [facility] [address] [place] [address] Dr. Efren Parra AST [Catalytic activity/Vol] 11 U/L Critically low 15-37 [facility] Comment on above: Performed By: #### A CET, ETH, SALYC, CMP #### [facility] [address] [place] [address] Dr. Efren Parra Bilirubin [Mass/Vol] 0.4 mg/dL Normal 0.2-1.0 [facility] Comment on above: Performed By: #### A CET, ETH, SALYC, CMP #### [facility] [address] [place] [address] Dr. Efren Parra Calcium [Mass/Vol] 9.3 mg/dL Normal 8.5-10.1 [facility] Comment on above: Performed By: #### A CET, ETH, SALYC, CMP #### [facility] [address] [place] [address] Dr. Efren Parra Chloride [Moles/Vol] 105 mmol/L Normal 98-107 [facility] Comment on above: Performed By: #### A CET, ETH, SALYC, CMP #### [facility] [address] [place] [address] Dr. Efren Parra CO2 [Moles/Vol] 26.8 mmol/L Normal 21.0-32.0 [facility] Comment on above: Performed By: #### A CET, ETH, SALYC, CMP #### [facility] [address] [address] [address] Efren Parra Creatinine [Mass/Vol] 0.64 mg/dL Normal 0.55-1.02 [facility] Comment on above: Performed By: #### A CET, ETH, SALYC, CMP #### [facility] [address] [place] [address] Dr. Efren Parra EGFR-AF MOZAMBICAN >60 Normal >=60 [facility] Comment on above: Performed By: #### A CET, ETH, SALYC, CMP #### [facility] [address] [place] [address] Dr. Efren Parra EGFR-NON AF MOZAMBICAN >60 Normal >=60 [facility] Comment on above: Performed By: #### A CET, ETH, SALYC, CMP #### [facility] [address] [place] [address] Dr. Efren Parra Globulin (S) [Mass/Vol] 3.5 g/dL Normal [facility] Comment on above: Performed By: #### A CET, ETH, SALYC, CMP #### [facility] [address] [address] [address] Efren Parra Glucose [Mass/Vol] 113 mg/dL Critically high 74-106 [facility] Comment on above: Performed By: #### A CET, ETH, SALYC, CMP #### [facility] [address] [place] [address] Dr. Efren Parra Potassium [Moles/Vol] 4.6 mmol/L Normal 3.5-5.1 [facility] Comment on above: Performed By: #### A CET, ETH, SALYC, CMP #### [facility] [address] [place] [address] Dr. Efren Parra Protein [Mass/Vol] 7.1 g/dL Normal 6.4-8.2 [facility] Comment on above: Performed By: #### A CET, ETH, SALYC, CMP #### [facility] [address] [place] [address] Dr. Efren Parra Sodium [Moles/Vol] 138 mmol/L Normal 136-145 [facility] Comment on above: Performed By: #### A CET, ETH, SALYC, CMP #### [facility] [address] [place] [address] Dr. Efren Parra Urea nitrogen [Mass/Vol] 8.0 mg/dL Normal 7.0-18.0 [facility] Comment on above: Performed By: #### A CET, ETH, SALYC, CMP #### [facility] [address] [place] [address] Dr. Efren Parra Urea nitrogen/Creatinine [Mass ratio] 12.5 mg/mg Normal [facility] Comment on above: Performed By: #### A CET, ETH, SALYC, CMP #### [facility] [address] [place] [address] Dr. Efren Parra SALICYLATEon 04-10-2022 SALICYLATE 3.3 mg/dL Normal <=19.9 [facility] Comment on above: Performed By: #### A CET, ETH, SALYC, CMP #### [facility] [address] [place] [address] Dr. Efren Parra URINE MICROSCOPIC ONLYon BACTERIA LARGE Abnormal NONE SEEN [facility] Comment on above: Performed By: #### C BC #### [facility] [address] [place] [address] Dr. Efren Parra Bacteria identified Cx Nom (U) INDICATED Normal [facility] Comment on above: Performed By: #### C BC #### [facility] [address] [place] [address] Dr. Efren Parra CAST NONE SEEN Normal NONE SEEN [facility] Comment on above: Performed By: #### C BC #### [facility] [address] [place] [address] Dr. Efren Parra Crystals LM Nom (Urine sed) NONE SEEN Normal NONE SEEN [facility] Comment on above: Performed By: #### C BC #### [facility] [address] [place] [address] Dr. Efren Parra Epithelial cells LM Ql (Urine sed) MANY Abnormal NONE SEEN /RARE [facility] Comment on above: Performed By: #### C BC #### [facility] [address] [place] [address] Dr. Efren Parra MUCOUS NONE SEEN Normal NONE SEEN [facility] Comment on above: Performed By: #### C BC #### [facility] [address] [place] [address] Dr. Efren Parra RBC 0-2 Normal 0-[address] [facility] Comment on above: Performed By: #### C BC #### [facility] [address] [place] [address] Dr. Efren Parra WBC 5-10 Abnormal NONE SEEN [facility] Comment on above: Performed By: #### C BC #### [facility] [address] [place] [address] Dr. Efren Parra Hemoglobin A1Con 02-08-2021 Glucose [Mass/Vol] 103 mg/dL Normal [facility] Comment on above: Result Comment: The ADA and AACC recommend providing the estimated average glucose result to permit better patient understanding of their HBA1c result. Performed By: #### G LYHGB #### [facility] [address] [place], [place] [id number] [employer] Operator: Bryan Cruz MD HbA1c (Bld) [Mass fraction] 5.2 % Normal 4.0-6.0 [facility] Comment on above: Performed By: #### G LYHGB #### [facility] [address] [place], [place] [id number] [employer] Operator: Bryan Cruz MD XR CHEST (SINGLE VIEW [...] Usama Xavier MD 02/07/21 Final result Normal [facility] Drug Scr, Abuse, Uron 2020 Amphetamine(s),Ur Negative Normal NEG [facility] Comment on above: Result Comment: (Positive cutoff 1000 ng/mL) Performed By: #### U HCG #### [facility] [address] [place], [place] [id number] [employer] Operator: José Miguel Monzon DO Barbiturate(s),Ur Negative Normal NEG [facility] Comment on above: Result Comment: (Positive cutoff 200 ng/mL) Performed By: #### U HCG #### [facility] [address] [place] [address] [employer] Operator: José Miguel Monzon DO Benzodiazepine(s) Positive Abnormal NEG [facility] Comment on above: Result Comment: (Positive cutoff 200 ng/mL) Performed By: #### U HCG #### [facility] [address] [place] [phone] [employer] Operator: José Miguel Monzon DO Cannabinoid(s),Ur Negative Normal NEG [facility] Comment on above: Result Comment: (Positive cutoff 50 ng/mL) Performed By: #### U HCG #### [facility] [address] [place] [phone] [employer] Operator: José Miguel Monzon DO Cocaine Metabolite Negative [facility] Comment on above: Result Comment: (Positive cutoff 300 ng/mL) Performed By: #### U HCG #### [facility] [address] [place] [phone] [employer] Operator: José Miguel Monzon DO Interpretive Info Assay provides medical screening only. The absence of expected drug(s) and/or Normal [facility] Comment on above: Result Comment: meta bolite(s) may indicate diluted or adulterated urine, limitations of testing or timing of collection. Testing for legal purposes should be confirmed by another method. To request confirmation of test result, please call the lab within 7 days of sample submission. Performed By: #### U HCG #### [facility] [address] [place] [id number] [employer] Operator: José Miguel Monzon DO Methadone Ql (U) Negative Normal NEG [facility] Comment on above: Result Comment: (Positive cutoff 300 ng/mL) Performed By: #### U HCG #### [facility] [address] [place] [address] [employer] Operator: José Miguel Monzon DO Opiate(s), Ur Negative Normal NEG [facility] Comment on above: Result Comment: (Positive cutoff 300 ng/mL) Performed By: #### U HCG #### [facility] [place] [address] [employer] Operator: José Miguel Monzon DO Oxycodone, Urine Negative Normal NEG [facility] Comment on above: Result Comment: (Positive cutoff 100 ng/mL) Performed By: #### U HCG #### [facility] [address] [place] [phone] [employer] Operator: José Miguel Monzon DO Phencyclidine, Ur Negative Normal NEG [facility] Comment on above: Result Comment: (Positive cutoff 25 ng/mL) Performed By: #### U HCG #### [facility] [address] [place] [address] [employer] Operator: José Miguel Monzon DO Buprenorphrine, Ur NOT REPORTED Normal NEG [facility] Comment on above: Performed By: #### U HCG #### [facility] [address] [place] [phone] [employer] Operator: José Miguel Monzon DO MDMA, Urine NOT REPORTED Normal NEG [facility] Comment on above: Performed By: #### U HCG #### [facility] [address] [place] [phone] [employer] Operator: José Miguel Monzon DO Methamphetamine, Ur NOT REPORTED Normal NEG [facility] Comment on above: Performed By: #### U HCG #### [facility] [address] [place] [phone] [employer] Operator: José Miguel Monzon DO Propoxyphene,Urine NOT REPORTED Normal NEG [facility] Comment on above: Performed By: #### U HCG #### [facility] [address] [place] [phone] [employer] Operator: José Miguel Monzon DO Tricyclic antidepressants Screen Ql (U) NOT REPORTED Normal NEG [facility] Comment on above: Performed By: #### U HCG #### [facility] [address] [place] [address] [employer] Operator: José Miguel Monzon DO Urinalysis, Routineon 2020 Acetoacetic Acid,Ur Negative Normal [facility] Comment on above: Performed By: #### U HCG #### [facility] [address] [place] [address] [employer] Operator: José Miguel Monzon DO Bilirubin, SemiQt,Ur Negative Normal NEG [facility] Comment on above: Performed By: #### U HCG #### [facility] [address] [place] [address] [employer] Operator: José Miguel Monzon DO Color (U) YELLOW Normal YEL [facility] Comment on above: Performed By: #### U HCG #### [facility] [place] [address] [employer] Operator: José Miguel Monzon DO Glucose Ql (U) Negative Normal [facility] Comment on above: Performed By: #### U HCG #### [facility] [place] [address] [employer] Operator: José Miguel Monzon DO Hemoglobin, Ur MOD Abnormal NEG [facility] Comment on above: Performed By: #### U HCG #### [facility] [address] [place] [address] [employer] Operator: José Miguel Monzon DO Leukocyte esterase Test strip Ql (U) LARGE Abnormal NEG [facility] Comment on above: Performed By: #### U HCG #### [facility] [place] [address] [employer] Operator: José Miguel Monzon DO Nitrite,Ur Negative Normal NEG [facility] Comment on above: Performed By: #### U HCG #### [facility] [address] [place] [address] [employer] Operator: José Miguel Monzon DO PH,Ur 7.5 Normal 5.0-8.0 [facility] Comment on above: Performed By: #### U HCG #### [facility] [place] [address] [employer] Operator: José Miguel Monzon DO Protein Ql (U) 2+ Abnormal NEG [facility] Comment on above: Performed By: #### U HCG #### [facility] [address] [place] [address] [employer] Operator: José Miguel Monzon DO Spec. [place],Ur 1.019 Normal 1.000-1.030 [facility] Comment on above: Performed By: #### U HCG #### [facility] [address] [place] [phone] [employer] Operator: José Miguel Monzon DO Turbidity TURBID Abnormal CLEAR [facility] Comment on above: Performed By: #### U HCG #### [facility] [place] [address] [employer] Operator: José Miguel Monzon DO Urobilinogen,Ur Normal Normal NORM [facility] Comment on above: Performed By: #### U HCG #### [facility] [address] [place] [address] [employer] Operator: José Miguel Monzon DO Comment NOT REPORTED Normal [facility] Comment on above: Performed By: #### U HCG #### [facility] [address] [place] [phone] [employer] Operator: José Miguel Monzon DO Urinalysis,Microon 1 ----- Normal [facility] Comment on above: Performed By: #### U HCG #### [facility] [address] [place] [phone] [employer] Operator: José Miguel Monzon DO Bacteria MANY Abnormal [facility] Comment on above: Performed By: #### U HCG #### [facility] [address] [place] [address] [employer] Operator: José Miguel Monzon DO Epithelial cells LM Ql (Urine sed) 2 TO 5 Normal [facility] Comment on above: Performed By: #### U HCG #### [facility] [address] [place] [phone] [employer] Operator: José Miguel Monzon DO Urine RBC's 10 TO 20 Normal [facility] Comment on above: Performed By: #### U HCG #### [facility] [address] [place] [address] [employer] Operator: José Miguel Monzon DO Urine WBC's 50 TO 100 Normal [facility] Comment on above: Performed By: #### U HCG #### [facility] [address] [place] [phone] [employer] Operator: José Miguel Monzon DO Amorphous sediment LM Ql (Urine sed) NOT REPORTED Normal [facility] Comment on above: Performed By: #### U HCG #### [facility] [address] [place] [phone] [employer] Operator: José Miguel Monzon DO Casts NOT REPORTED Normal [facility] Comment on above: Performed By: #### U HCG #### [facility] [address] [place] [address] [employer] Operator: José Miguel Monzon DO Crystals LM Nom (Urine sed) NOT REPORTED Normal [facility] Comment on above: Performed By: #### U HCG #### [facility] [address] [place] [address] [employer] Operator: José Miguel Monzon DO Epithelial, Renal NOT REPORTED Normal 0 [facility] Comment on above: Performed By: #### U HCG #### [facility] [place] [address] [employer] Operator: José Miguel Monzon DO Mucus Strands NOT REPORTED Normal NONE [facility] Comment on above: Performed By: #### U HCG #### [facility] [address] [place] [address] [employer] Operator: José Miguel Monzon DO Other Observations NOT REPORTED Normal [facility] Comment on above: Performed By: #### U HCG #### [facility] [address] [place] [address] [employer] Operator: José Miguel Monzon DO Trichomonas NOT REPORTED Normal NONE [facility] Comment on above: Performed By: #### U HCG #### [facility] [address] [place] [address] [employer] Operator: José Miguel Monzon DO Yeast NOT REPORTED Normal NONE [facility] Comment on above: Performed By: #### U HCG #### [facility] [address] [place] [address] [employer] Operator: José Miguel Monzon DO Acetaminophenon 3564 Acetaminophen [Mass/Vol] ug/mL Low 10-30 [facility] Comment on above: Performed By: #### C MPX, REJEC, HCG, ACET, ALCB, SALI #### [facility] [place] [address] [employer] Operator: José Miguel Monzon DO CBC with Diffon 02-05-2021 Abs. Basophil 0.00 k/uL Normal 0.0-0.2 [facility] Comment on above: Performed By: #### U HCG #### [facility] [place] [address] [employer] Operator: José Miguel Monzon DO Abs.Neutrophil (Seg) 3.50 k/uL Normal 1.3-9.1 [facility] Comment on above: Performed By: #### U HCG #### [facility] [place] [address] [employer] Operator: José Miguel Monzon DO Basophils/100 WBC (Bld) 1 % Normal 0-2 [facility] Comment on above: Performed By: #### U HCG #### [facility] [place] [address] [employer] Operator: José Miguel Monzon DO Eosinophils (Bld) [#/Vol] 0.10 10*3/uL Normal 0.0-0.4 [facility] Comment on above: Performed By: #### U HCG #### [facility] [address] [place] [address] [employer] Operator: José Miguel Monzon DO Eosinophils/100 WBC (Bld) 2 % Normal 0-4 [facility] Comment on above: Performed By: #### U HCG #### [facility] [address] [place] [address] [employer] Operator: José Miguel Monzon DO Erythrocyte distribution width (RBC) [Ratio] 13.3 % Normal 11.5-14.9 [facility] Comment on above: Performed By: #### U HCG #### [facility] [address] [place] [address] [employer] Operator: Jos éMiguel Monzon DO Hematocrit (Bld) [Volume fraction] 35.6 % Low 36-46 [facility] Comment on above: Performed By: #### U HCG #### [facility] [place] [address] [employer] Operator: José Miguel Monzon DO Hemoglobin (Bld) [Mass/Vol] 12.1 g/dL Normal 12.0-16.0 [facility] Comment on above: Performed By: #### U HCG #### [facility] [address] [place] [address]. [place] [address] [employer] Operator: José Miguel Monzon DO Lymphocytes (Bld) [#/Vol] 2.30 10*3/uL Normal 1.0-4.8 [facility] Comment on above: Performed By: #### U HCG #### [facility] [address] [place] [address]. [place] [address] [employer] Operator: José Miguel Monzon DO Lymphocytes/100 WBC (Bld) 36 % Normal 24-44 [facility] Comment on above: Performed By: #### U HCG #### [facility] [address] [place] [address]. [place] [address] [employer] Operator: José Miguel Monzon DO MCH (RBC) [Entitic mass] 30.9 pg Normal 26-34 [facility] Comment on above: Performed By: #### U HCG #### [facility] [address] [place] [address] [employer] Operator: José Miguel Monzon DO MCHC (RBC) [Mass/Vol] 33.9 g/dL Normal 31-37 [facility] Comment on above: Performed By: #### U HCG #### [facility] [address] [place] [address] [employer] Operator: José Miguel Monzon DO MCV (RBC) [Entitic vol] 91.4 fL Normal 80-100 [facility] Comment on above: Performed By: #### U HCG #### [facility] [address] [place] [address] [employer] Operator: José Miguel Monzon DO Monocytes (Bld) [#/Vol] 0.40 10*3/uL Normal 0.1-1.3 [facility] Comment on above: Performed By: #### U HCG #### [facility] [address] [facility] [place] [address] [employer] Operator: José Miguel Monzon DO Monocytes/100 WBC (Bld) 7 % Normal 1-7 [facility] Comment on above: Performed By: #### U HCG #### [facility] [place] [address] [employer] Operator: José Miguel Monzon DO Neutrophil (Seg) 54 % Normal 36-66 [facility] Comment on above: Performed By: #### U HCG #### [facility] [place] [address] [employer] Operator: José Miguel Monzon DO Platelet mean volume (Bld) [Entitic vol] 8.6 fL Normal 6.0-12.0 [facility] Comment on above: Performed By: #### U HCG #### [facility] [place] [address] [employer] Operator: José Miguel Monzon DO Platelets (Bld) [#/Vol] 212 10*3/uL Normal 150-450 [facility] Comment on above: Performed By: #### U HCG #### [facility] [place] [address] [employer] Operator: José Miguel Monzon DO RBC (Bld) [#/Vol] 3.90 10*6/uL Low 4.0-5.2 [facility] Comment on above: Performed By: #### U HCG #### [facility] [place] [address] [employer] Operator: José Miguel Monzon DO WBC (Bld) [#/Vol] 6.4 10*3/uL Normal 3.5-11.0 [facility] Comment on above: Performed By: #### U HCG #### [facility] [address] [place] [address] [employer] Operator: José Miguel Monzon DO Abs.Imm.Granulocyte NOT REPORTED Normal 0.00-0.30 [facility] Comment on above: Performed By: #### U HCG #### [facility] [address] [place] [address] [employer] Driver Operator: José Miguel Monzon DO Auto Diff Performed NOT REPORTED Normal [facility] Comment on above: Performed By: #### U HCG #### [facility] [address] [place] [address] [employer] Operator: José Miguel Monzon DO Immature Granulocyte NOT REPORTED Normal 0 [facility] Comment on above: Performed By: #### U HCG #### [facility] [address] [place] [address] [employer] Operator: José Miguel Monzon DO NRBC Automated NOT REPORTED Normal [facility] Comment on above: Performed By: #### U HCG #### [facility] [address] [place] [address] [employer] Operator: José Miguel Monzon DO Platelet Estimate NOT REPORTED Normal [facility] Comment on above: Performed By: #### U HCG #### [facility] [address] [place] [address] [employer] Operator: José Miguel Monzon DO RBC morphology finding Nom (Bld) NOT REPORTED Normal [facility] Comment on above: Performed By: #### U HCG #### [facility] [address] [place] [address] [employer] Driver Operator: José Miguel Monzon DO WBC Morphology NOT REPORTED Normal [facility] Comment on above: Performed By: #### U HCG #### [facility] [address] [place] [address] [employer] Driver Operator: José Miguel Monzon DO Comp Metabolic Pr/rfx MGon 0 - AST [Catalytic activity/Vol] 17 U/L Normal <32 [facility] Comment on above: Performed By: #### C MPX, REJEC, HCG, ACET, ALCB, SALI #### [facility] [address] [place] [address] [employer] Operator: José Miguel Monzon DO Bilirubin [Mass/Vol] mg/dL Low 0.3-1.2 [facility] Comment on above: Performed By: #### C MPX, REJEC, HCG, ACET, ALCB, SALI #### [facility] [address] [place] [address] [employer] Driver Operator: José Miguel Monzon DO Potassium [Moles/Vol] 4.4 mmol/L Normal 3.7-5.3 [facility] Comment on above: Result Comment: SPEC IMEN SLIGHTLY HEMOLYZED, RESULTS MAY BE ADVERSELY AFFECTED. Performed By: #### C MPX, REJEC, HCG, ACET, ALCB, SALI #### [facility] [address] [place] [address] [employer] Operator: José Miguel Monzon DO (cont.) Normal [facility] Comment on above: Result Comment: Aver age GFR for 30-39 years old: 107 mL/min/1.73sq m Chronic Kidney Disease: <60 mL/min/1.73sq m Kidney failure: <15 mL/min/1.73sq m eGFR calculated using average adult body mass. Additional eGFR calculator available at: http://www.XPlace.[employer]/multiple_crcl_2012.htm Performed By: #### C MPX, REJEC, HCG, ACET, ALCB, SALI #### [facility] [address] [place] [address] [employer] Operator: José Miguel Monzon DO Albumin [Mass/Vol] 3.7 g/dL Normal 3.5-5.2 [facility] Comment on above: Performed By: #### C MPX, REJEC, HCG, ACET, ALCB, SALI #### [facility] [address] [place] [address] [employer] Operator: José Miguel Monzon DO Alkaline Phos 42 U/L Normal 35-104 [facility] Comment on above: Performed By: #### C MPX, REJEC, HCG, ACET, ALCB, SALI #### [facility] [address] [place] [address] [employer] Operator: José Miguel Monzon DO ALT [Catalytic activity/Vol] 12 U/L Normal 5-33 [facility] Comment on above: Performed By: #### C MPX, REJEC, HCG, ACET, ALCB, SALI #### [facility] [address] [place] [address] [employer] Operator: José Miguel Monzon DO Anion gap [Moles/Vol] 15 mmol/L Normal 9-17 [facility] Comment on above: Performed By: #### C MPX, REJEC, HCG, ACET, ALCB, SALI #### [facility] [address] [place] [address] [employer] Operator: José Miguel Monzon DO Calcium [Mass/Vol] 9.4 mg/dL Normal 8.6-10.4 [facility] Comment on above: Performed By: #### C MPX, REJEC, HCG, ACET, ALCB, SALI #### [facility] [address] [place] [address] [employer] Operator: José Miguel Monzon DO Chloride [Moles/Vol] 100 mmol/L Normal 98-107 [facility] Comment on above: Performed By: #### C MPX, REJEC, HCG, ACET, ALCB, SALI #### [facility] [address] [place] [address] [employer] Driver Operator: José Miguel Monzon DO CO2 [Moles/Vol] 21 mmol/L Normal 20-31 [facility] Comment on above: Performed By: #### C MPX, REJEC, HCG, ACET, ALCB, SALI #### [facility] [address] [place] [address] [employer] Driver Operator: José Miguel Monzon DO Creatinine [Mass/Vol] 0.51 mg/dL Normal 0.50-0.90 [facility] Comment on above: Performed By: #### C MPX, REJEC, HCG, ACET, ALCB, SALI #### [facility] [address] [place] [address] [employer] Operator: José Miguel Monzon DO GFR, Amer >60 Normal >60 [facility] Comment on above: Performed By: #### C MPX, REJEC, HCG, ACET, ALCB, SALI #### [facility] [address] [place] [address] [employer] Driver Operator: José Miguel Monzon DO GFR,non Amer >60 Normal >60 [facility] Comment on above: Performed By: #### C MPX, REJEC, HCG, ACET, ALCB, SALI #### [facility] [address] [place] [address] [employer] Operator: José Miguel Monzon DO Glucose [Mass/Vol] 111 mg/dL High 70-99 [facility] Comment on above: Performed By: #### C MPX, REJEC, HCG, ACET, ALCB, SALI #### [facility] [address] [place] [address] [employer] Operator: José Miguel Monzon DO Protein [Mass/Vol] 6.6 g/dL Normal 6.4-8.3 [facility] Comment on above: Performed By: #### C MPX, REJEC, HCG, ACET, ALCB, SALI #### [facility] [address] [place] [address] [employer] Driver Operator: José Miguel Monzon DO Sodium [Moles/Vol] 136 mmol/L Normal 135-144 [facility] Comment on above: Performed By: #### C MPX, REJEC, HCG, ACET, ALCB, SALI #### [facility] [address] [place] [address] [employer] Driver Operator: José Miguel Monzon DO Urea nitrogen [Mass/Vol] 14 mg/dL Normal 6-20 [facility] Comment on above: Performed By: #### C MPX, REJEC, HCG, ACET, ALCB, SALI #### [facility] [address] [facility] [place] [address] [employer] Driver Operator: José Miguel Monzon DO Albumin/Glob Ratio NOT REPORTED Normal 1.0-2.5 [facility] Comment on above: Performed By: #### C MPX, REJEC, HCG, ACET, ALCB, SALI #### [facility] [address] [place] [address] [employer] Driver Operator: José Miguel Monzon DO BUN/CRE Ratio NOT REPORTED Normal -20 [facility] Comment on above: Performed By: #### C MPX, REJEC, HCG, ACET, ALCB, SALI #### [facility] [address] [place] [address] [employer] Driver Operator: José Miguel Monzon DO Staging: NOT REPORTED Normal [facility] Comment on above: Performed By: #### C MPX, REJEC, HCG, ACET, ALCB, SALI #### [facility] [address] [place] [address] [place] [address] [employer] Driver Operator: José Miguel Monzon DO Ethanol Alcoholon 02-05-2021 Ethanol [Mass/Vol] mg/dL Normal <10 [facility] Comment on above: Performed By: #### C MPX, REJEC, HCG, ACET, ALCB, SALI #### [facility] [address] [place] [address] [employer] Driver Operator: José Miguel Monzon DO Ethanol percent <0.010 Normal [facility] Comment on above: Performed By: #### C MPX, REJEC, HCG, ACET, ALCB, SALI #### [facility] [address] [facility] [place] [address] [employer] Driver Operator: José Miguel Monzon DO HCG Screen, Bloodon 02-06-20 HCG Screen, Blood Negative Normal NEG [facility] Comment on above: Result Comment: Spec [...] MPX, REJEC, HCG, ACET, ALCB, SALI #### [facility] [address] [facility] [place] [address] [employer] Driver Operator: José Miguel Monzon DO [id number] 02-05-2021 SARS-CoV-2 (COVID-19) RNA LUKASZ+probe Ql (Unsp spec) Not detected Normal NOTDET [facility] Comment on above: Result Comment: Rapid NAAT: [...] management decisions. Fact sheet for Healthcare Providers: https://www.fda.gov/media/171869/download Fact sheet for Patients: https://www.fda.gov/media/484942/download Methodology: Isothermal Nucleic Acid Amplification Performed By: #### U HCG #### [facility] [address] [place] [address] Wood Pile Driver Operator: José Miguel Monzon DO Salicylateon 02-05-2021 Salicylate <1 Low 3-10 [facility] Comment on above: Performed By: #### C MPX, REJEC, HCG, ACET, ALCB, SALI #### [facility] [address] [facility] [place] [address] [employer] Driver Operator: José Miguel Monzon DO Specimen Rejectionon 021 Reason for rejection Unable to perform testing: Specimen quantity not sufficient. Normal [facility] Comment on above: Performed By: #### C MPX, REJEC, HCG, ACET, ALCB, SALI #### [facility] [address] [place] [address] [employer] Driver Operator: José Miguel Monzon DO Source of sample .BLOOD [facility] Comment on above: Performed By: #### C MPX, REJEC, HCG, ACET, ALCB, SALI #### [facility] [address] [place] [address] Wood Pile Driver Operator: José Miguel Monzon DO Test ordered CDP [facility] Comment on above: Performed By: #### C MPX, REJEC, HCG, ACET, ALCB, SALI #### [facility] [address] [facility] [place] [address] [employer] Pile Driver Operator: José Miguel Monzon DO ----- NOT REPORTED Normal [facility] Comment on above: Performed By: #### C MPX, REJEC, HCG, ACET, ALCB, SALI #### [facility] [address] [facility] [place] [address] [employer] Driver Operator: José Miguel Monzon DO HPV DNA High Riskon 10-22-20 20 HPV Genotype 16 Detected Normal [facility] Comment on above: Performed By: #### U HCG #### [facility] [place] [address] [employer] Driver Operator: José Miguel Monzon DO HPV Genotype 18 Not detected Normal [facility] Comment on above: Result Comment: (NOT E) [...] in women under age 21. Performed By: [employer] [address] [place] [id number] Management Information Systems Director: Rebeca Alvarez MD Performed By: #### U HCG #### [facility] [place] [address] [employer] Pile Driver Operator: José Miguel Monzon DO HPV Other High Risk Detected Normal [facility] Comment on above: Performed By: #### U HCG #### [facility] [address] [facility] [place] [address] [employer] P[employer] Driver Operator: José Miguel Monzon DO C.trachomatis N.gonorrhoeae DNA, Urineon 07-26-2020 C. trachomatis DNA ,Urine Negative NEGATIVE [facility] [place] [place] Comment on above: CHLAMYDIA TRACHOMATI S DNA [...] target. N. gonorrhoeae DNA, Urine Negative NEGATIVE [place], [place] Comment on above: NEISSERIA GONORRHOEA E DNA [...] alternative nucleic acid target. Specimen Description .URINE [facility], [place] Chlamydia/GC DNA, Uron 07-26 Chlamydia Probe, Ur Negative Normal NEG [facility] Comment on above: Result Comment: CHLA MYDIA [...] target. Performed By: #### U HCG #### [facility] [address] [facility] [place] [address] Wood Pile Driver Operator: José Miguel Monzon DO Gonorrhea Probe, Ur Negative Normal NEG [facility] Comment on above: Result Comment: NEIS SERIA [...] target. Performed By: #### U HCG #### [facility] [address] [facility] [place] [address] [employer]ile Driver Operator: José Miguel Monzon DO DYE HOUSE HAND Cytologyon 07-25-2020 Cytology report Cyto stain.thin prep Doc (Cvx/Vag) INTERPRETATION Cervical material, (ThinPrep vial, Imaging-assisted review): Specimen Adequacy: Satisfactory for evaluation. - Endocervical/transfor mation zone component present. 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 Atypical squamous cells of undetermined significance, cannot exclude high grade squamous intraepithelial lesion (ASC-H). Comments: High Risk HPV testing was ordered. Air Director: GRACE Mclain M.D. Electronically Signed Out sls/07/25/2020 Procedure/Addendum HPV Procedure Report Date Ordered: 07/25/2020 Status: Complete Date Complete: 07/25/2020 By: Date Reported: Source: 1: Cervical material, (ThinPrep vial, Imaging-assisted review) Clinical History Co-Test: ThinPrep Pap with high risk HPV testing GYNECOLOGIC CYTOLOGY REPORT Patient Name: LORNA DEUTSCH [facility] Rec: [id number] Path Number: [id number] [facility] [employer] [facility]AT[facility]OLOG[facility] [address] [place] [address]. [place], [place] [address] [facility], [place] HPV DNA High Riskon 07-25-20 20 HVP Source .GENITAL - NOT SPECIFIED Normal [facility] Comment on above: Performed By: #### U HCG #### [facility] [address] [place] [address] Wood Pile Driver Operator: José Miguel Monzon DO Otheron 07-25-2020 EXAMINATION: [...] Fluid: Small volume left adnexal free fluid. [place], [place], [facility] Incoming Radiant Results From [employer] - 07/25/2020 7:17 PM EDT EXAMINATION: PELVIC [...] ovarian cyst. No follow-up imaging is recommended. [place], [place] Unremarkable pelvic ultrasound. 3.2 cm simple left ovarian cyst. No follow-up imaging is recommended. [place], [place] US NON OB TRANSVAGINALon US NON [...] Micheal Montesinos MD 07/25/20 Final result Normal [facility] US PELVIS COMPLETEon --2 020 US PELVIS COMPLETE EXAMINATION: PELVIC ULTRASOUND [...] Micheal Montesinos MD 07/25/20 Final result Normal [facility] Cytologyon 07-24-2020 Cytology (NOTE) INTERPRETATION Cervical material, (ThinPrep vial, Imaging-assisted review): Specimen Adequacy: Satisfactory for evaluation. - Endocervical/transfor mation zone component present. 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 Atypical squamous cells of undetermined significance, cannot exclude high grade squamous intraepithelial lesion (ASC-H). Comments: High Risk HPV testing was ordered. Air Director: GRACE Mclain M.D. Electronically Signed Out sls/07/25/2020 [...] specimen submitted for testing did not meet [employer] submission guidelines. Testing was performed on a specimen that did not meet validated specimen type requirements. Performance characteristics of this assay may be affected. Interpret results with caution. Please refer to the [employer] Laboratory Test Directory for information on specimen acceptability: [email or web address]. Performed By: [facility] [address] [place] [id number] Management Information Systems Director: Rebeca Alvarez MD Source: 1: Cervical material, (ThinPrep vial, Imaging-assisted review) Clinical History Co-Test: ThinPrep Pap with high risk HPV testing GYNECOLOGIC CYTOLOGY REPORT Patient Name: LORNA DEUTSCH [facility] Rec: [id number] Path Number: [id number] [facility] ANAT[facility] PATHOLOG[facility] [address] [place] [phone] Normal [facility] Comment on above: Performed By: #### A HCV, HIVCMB #### [address] [id number] Wood [employer] Driver Operator: Bryan Cruz MD Otheron 07-24-2020 Direct Exam Negative [place] Vaginitis DNA Probeon 2019 Vaginitis DNA [...] of vaginitis/vaginosis. Report Status FINAL 07/24/2020 Normal [facility] Comment on above: Performed By: #### U HCG #### [facility] [address] [place], [place] [id number] [employer] Operator: José Miguel Monzon DO Direct Exam Method of testing is a DNA probe intended for detection and identification of Jose Ramon species, Gardnerella vaginalis, and Trichomonas vaginalis nucleic acid in vaginal fluid specimens from patients with symptoms of vaginitis/vaginosis. [place] Special Requests NOT REPORTED [place] Specimen Description .VAGINA [place] CBC with DIFFon 07-23-2020 Basophils (Bld) [#/Vol] 0.00 10*3/uL [place] Basophils/100 WBC (Bld) 0 % 0 - 2 % [place] Differential Type NOT REPORTED [place] Eosinophils (Bld) [#/Vol] 0.20 10*3/uL [place] Eosinophils/100 WBC (Bld) 4 % 0 - 4 % [place] Erythrocyte distribution width (RBC) [Ratio] 13.3 % 11.5 - 14.9 % [place] Hematocrit (Bld) [Volume fraction] 40.0 % 36 - 46 % [place] Hemoglobin (Bld) [Mass/Vol] 13.7 g/dL 12 - 16 g/dL [place] Interpretation and review of laboratory results Abnormal [place] Lymphocytes (Bld) [#/Vol] 2.64 10*3/uL [place] Lymphocytes/100 WBC (Bld) 54 % High 24 - 44 % [place] MCH (RBC) [Entitic mass] 31.4 pg 26 - 34 pg [place] MCHC (RBC) [Mass/Vol] 34.2 g/dL 31 - 37 g/dL [place] MCV (RBC) [Entitic vol] 91.9 fL 80 - 100 fL [place] Monocytes (Bld) [#/Vol] 0.20 10*3/uL [place] Monocytes/100 WBC (Bld) 4 % 1 - 7 % [place] Morphology Dami (Bld) [Interp] Normal [place] Platelet mean volume (Bld) [Entitic vol] 10.1 fL 6 - 12 fL [place] Platelets (Bld) [#/Vol] NOT REPORTED [place] Platelets (Bld) [#/Vol] 142 10*3/uL [place] RBC (Bld) [#/Vol] 4.36 10*6/uL 4 - 5.2 m/uL [place] RBC morphology finding Nom (Bld) NOT REPORTED [place] Segmented neutrophils/100 WBC (Bld) 38 % 36 - 66 % [place] Segs Absolute 1.86 [place] WBC (Bld) [#/Vol] NOT REPORTED per 100 WBC [place] WBC (Bld) [#/Vol] 4.9 10*3/uL [place] WBC Morphology NOT REPORTED [place] CBC with Diffon 07-23-2020 Abs. Basophil 0.00 k/uL Normal 0.0-0.2 [facility] Comment on above: Performed By: #### U HCG #### [facility] [place] [address] [employer] Operator: José Miguel Monzon DO Abs.Neutrophil (Seg) 1.86 k/uL Normal 1.3-9.1 [facility] Comment on above: Performed By: #### U HCG #### [facility] [place] [address] [employer] Operator: José Miguel Monzon DO Basophils/100 WBC (Bld) 0 % Normal 0-2 [facility] Comment on above: Performed By: #### U HCG #### [facility] [place] [address] [employer] Operator: José Miguel Monzon DO Eosinophils (Bld) [#/Vol] 0.20 10*3/uL Normal 0.0-0.4 [facility] Comment on above: Performed By: #### U HCG #### [facility] [address] [place] [address]. [place] [address] [employer] Operator: José Miguel Monzon DO Eosinophils/100 WBC (Bld) 4 % Normal 0-4 [facility] Comment on above: Performed By: #### U HCG #### [facility] [place] [address] [employer] Operator: José Miguel Monzon DO Lymphocytes (Bld) [#/Vol] 2.64 10*3/uL Normal 1.0-4.8 [facility] Comment on above: Performed By: #### U HCG #### [facility] [address] [place] [address]. [place] [address] [employer] Operator: José Miguel Monzon DO Lymphocytes/100 WBC (Bld) 54 % High 24-44 [facility] Comment on above: Performed By: #### U HCG #### [facility] [address] [facility] [place] [address] [employer] Operator: José Miguel Monzon DO Monocytes (Bld) [#/Vol] 0.20 10*3/uL Normal 0.1-1.3 [facility] Comment on above: Performed By: #### U HCG #### [facility] [address] [place] [address] [employer] Operator: José Miguel Monzon DO Monocytes/100 WBC (Bld) 4 % Normal 1-7 [facility] Comment on above: Performed By: #### U HCG #### [facility] [address] [place] [address]. [place] [address] [employer] Operator: José Miguel Monzon DO Morphology Dami (Bld) [Interp] Normal Normal [facility] Comment on above: Performed By: #### U HCG #### [facility] [address] [place] [address] [employer] Operator: José Miguel Monzon DO Neutrophil (Seg) 38 % Normal 36-66 [facility] Comment on above: Performed By: #### U HCG #### [facility] [place] [address] [employer] Operator: José Miguel Monzon DO Erythrocyte distribution width (RBC) [Ratio] 13.3 % Normal 11.5-14.9 [facility] Comment on above: Performed By: #### U HCG #### [facility] [address] [place] [phone] [employer] Operator: José Miguel Monzon DO Hematocrit (Bld) [Volume fraction] 40.0 % Normal 36-46 [facility] Comment on above: Performed By: #### U HCG #### [facility] [place] [address] [employer] Operator: José Miguel Monzon DO Hemoglobin (Bld) [Mass/Vol] 13.7 g/dL Normal 12.0-16.0 [facility] Comment on above: Performed By: #### U HCG #### [facility] [address] [place] [address] [employer] Operator: José Miguel Monzon DO MCH (RBC) [Entitic mass] 31.4 pg Normal 26-34 [facility] Comment on above: Performed By: #### U HCG #### [facility] [address] [place] [address] [employer] Operator: José Miguel Monzon DO MCHC (RBC) [Mass/Vol] 34.2 g/dL Normal 31-37 [facility] Comment on above: Performed By: #### U HCG #### [facility] [address] [place] [address] [employer] Operator: José Miguel Monzon DO MCV (RBC) [Entitic vol] 91.9 fL Normal 80-100 [facility] Comment on above: Performed By: #### U HCG #### [facility] [address] [place] [address] [employer] Operator: José Miguel Monzon DO Platelet mean volume (Bld) [Entitic vol] 10.1 fL Normal 6.0-12.0 [facility] Comment on above: Performed By: #### U HCG #### [facility] [address] [place] [address] [employer] Operator: José Miguel Monzon DO Platelets (Bld) [#/Vol] 142 10*3/uL Low 150-450 [facility] Comment on above: Performed By: #### U HCG #### [facility] [place] [address] [employer] Operator: José Miguel Monzon DO RBC (Bld) [#/Vol] 4.36 10*6/uL Normal 4.0-5.2 [facility] Comment on above: Performed By: #### U HCG #### [facility] [address] [place] [address] [employer] Operator: José Miguel Monzon DO WBC (Bld) [#/Vol] 4.9 10*3/uL Normal 3.5-11.0 [facility] Comment on above: Performed By: #### U HCG #### [facility] [address] [place] [address] [employer] Operator: José Miguel Monzon DO Abs.Imm.Granulocyte NOT REPORTED Normal 0.00-0.30 [facility] Comment on above: Performed By: #### U HCG #### [facility] [address] [place] [address] [employer] Operator: José Miguel Monzon DO Auto Diff Performed NOT REPORTED Normal [facility] Comment on above: Performed By: #### U HCG #### [facility] [address] [place] [address] [employer] Operator: José Miguel Monzon DO Immature Granulocyte NOT REPORTED Normal 0 [facility] Comment on above: Performed By: #### U HCG #### [facility] [address] [place] [address] [employer] Operator: José Miguel Monzon DO NRBC Automated NOT REPORTED Normal [facility] Comment on above: Performed By: #### U HCG #### [facility] [address] [place] [address] [employer] Operator: José Miguel Monzon DO Platelet Estimate NOT REPORTED Normal [facility] Comment on above: Performed By: #### U HCG #### [facility] [place] [address] [employer] Operator: José Miguel Monzon DO RBC morphology finding Nom (Bld) NOT REPORTED Normal [facility] Comment on above: Performed By: #### U HCG #### [facility] [place] [address] [employer] Operator: José Miguel Monzon DO WBC Morphology NOT REPORTED Normal [facility] Comment on above: Performed By: #### U HCG #### [facility] [address] [place] [address] [employer] Operator: José Miguel Monzon DO HCG, ,Urineon [id number] Beta HCG ( test) Ql (U) Negative Normal NEG [facility] Comment on above: Result Comment: Spec imens with hCG levels near the threshold of the test (25 mIU/mL) may give a negative or indeterminate result. In such cases, another test should be performed with a new specimen in 48-72 hours. If early is suspected clinically in this setting, correlation with quantitative serum b-hCG level is suggested. Performed By: #### U HCG #### [facility] [address] [place] [address]. [place] [address] [employer] Operator: José Miguel Monzon DO Beta HCG ( test) Ql (U) Negative NEGATIVE [facility] [place] Comment on above: Specimens with hCG l evels near the threshold of the test (25 mIU/mL) may give a negative or indeterminate result. In such cases, another test should be performed with a new specimen in 48-72 hours. If early is suspected clinically in this setting, correlation with quantitative serum b-hCG level is suggested. Otheron 07-23-2020 Immature granulocytes (Bld) [#/Vol] NOT REPORTED [facility] [employer] [facility] 12 Leadon 07-21-2020 Atrial Rate 64 BPM [place] P [place] 54 degrees [place] P-R Interval 138 ms [facility], [place] Q-T Interval 384 ms [place] QRS Duration 92 ms [place] QTc Calculation (Bazett) 396 ms [place] R [place] 66 degrees [facility], [place] T Marshall 66 degrees [place] Ventricular Rate 64 BPM [place], [employer] Incoming Ekg Results From [employer] - 07/21/2020 9:25 AM EDT Normal sinus rhythm Normal ECG No previous ECGs available [place] Normal sinus rhythm Normal ECG No previous ECGs available [place] HIV Ag/Abon 07-21-2020 HIV Ag/Ab Non-Reactive Normal NR [facility] Comment on above: Result Comment: No l aboratory evidence of HIV infection. If acute HIV infection is suspected, consider testing for HIV-1 RNA. Performed By: #### A HCV, HIVCMB #### [facility] [address] [place] [phone] [employer] Operator: Bryan Cruz MD HIV Screenon 07-21-2020 HIV Ag/Ab NONREACTIVE NONREACTIVE [place] Comment on above: No laboratory eviden ce of HIV infection. If acute HIV infection is suspected, consider testing for HIV-1 RNA. T.pallidum Ab Screenon 07-21 T.pallidum Ab Screen Non-Reactive Normal NR [facility] Comment on above: Result Comment: T. pallidum antibodies are not detected. There is no serological evidence of infection with T. pallidum (early primary syphilis cannot be excluded). Retest in 2-4 weeks if syphilis is clinically suspect. Performed By: #### A HCV, HIVCMB #### [facility] [address] [place] [address] [employer] Operator: Bryan Cruz MD T. pallidum, IgG NONREACTIVE NONREACTIVE [place] Comment on above: T. pallidum antibodies are not detected. There is no serological evidence of infection with T. pallidum (early primary syphilis cannot be excluded). Retest in 2-4 weeks if syphilis is clinically suspect. Valproic Acidon 07-21-2020 Date last dose, [id number] Normal [facility] Comment on above: Performed By: #### A HCV, HIVCMB #### [facility] [address] [place] [address] [employer] Operator: Bryan Cruz MD Dose amount 1000 MG Normal [facility] Comment on above: Performed By: #### A HCV, HIVCMB #### [facility] [address] [place] [address] [employer] Operator: Bryan Cruz MD Time last dose, 2040 [facility] Comment on above: Performed By: #### A HCV, HIVCMB #### [address] [address] [employer] Operator: Bryan Cruz MD Valproic Acid 95 ug/mL Normal 50-125 [facility] Comment on above: Performed By: #### A HCV, HIVCMB #### [address] [address] [employer] Operator: Bryan Cruz MD Valproic Acid Lvl 95 ug/mL 50 - 125 ug/mL [place] Valproic Date last dose [id number] [place] Valproic Dose amount 1000 MG [place] Valproic Time last dose 2040 [place] CBC with Diffon 07-20-2020 Abs. Basophil 0.00 k/uL Normal 0.0-0.2 [facility] Comment on above: Performed By: #### A HCV, HIVCMB #### [facility] [address] [place] [address] [employer] Operator: Bryan Cruz MD Abs.Neutrophil (Seg) 1.80 k/uL Normal 1.3-9.1 [facility] Comment on above: Performed By: #### A HCV, HIVCMB #### [facility] [address] [place] [address] [employer] Operator: Bryan Cruz MD Basophils/100 WBC (Bld) 0 % Normal 0-2 M [facility] Comment on above: Performed By: #### A HCV, HIVCMB #### [address] [address] [employer] Operator: Bryan Cruz MD Eosinophils (Bld) [#/Vol] 0.04 10*3/uL Normal 0.0-0.4 [facility] Comment on above: Performed By: #### A HCV, HIVCMB #### [address] [address] [employer] Operator: Bryan Cruz MD Eosinophils/100 WBC (Bld) 1 % Normal 0-4 [facility] Comment on above: Performed By: #### A HCV, HIVCMB #### [address] [address] [employer] Operator: Bryan Cruz MD Lymphocytes (Bld) [#/Vol] 1.92 10*3/uL Normal 1.0-4.8 [facility] Comment on above: Performed By: #### A HCV, HIVCMB #### [address] [address] [employer] Operator: Bryan Cruz MD Lymphocytes/100 WBC (Bld) 48 % High 24-44 [facility] Comment on above: Performed By: #### A HCV, HIVCMB #### [address] [address] [employer] Operator: Bryan Cruz MD Monocytes (Bld) [#/Vol] 0.24 10*3/uL Normal 0.1-1.3 [facility] Comment on above: Performed By: #### A HCV, HIVCMB #### [address] [address] [employer] Operator: Bryan Cruz MD Monocytes/100 WBC (Bld) 6 % Normal 1-7 [facility] Comment on above: Performed By: #### A HCV, HIVCMB #### [address] [address] [employer] Operator: Bryan Cruz MD Morphology Dami (Bld) [Interp] Normal Normal [facility] Comment on above: Performed By: #### A HCV, HIVCMB #### [address] [address] [employer] Operator: Bryan Cruz MD Neutrophil (Seg) 45 % Normal 36-66 [facility] Comment on above: Performed By: #### A HCV, HIVCMB #### [address] [address] [employer] Operator: Bryan Cruz MD Erythrocyte distribution width (RBC) [Ratio] 13.6 % Normal 11.5-14.9 [facility] Comment on above: Performed By: #### A HCV, HIVCMB #### [address] [address] [employer] Operator: Bryan Cruz MD Hematocrit (Bld) [Volume fraction] 41.6 % Normal 36-46 [facility] Comment on above: Performed By: #### A HCV, HIVCMB #### [address] [address] [employer] Operator: Bryan Cruz MD Hemoglobin (Bld) [Mass/Vol] 13.9 g/dL Normal 12.0-16.0 [facility] Comment on above: Performed By: #### A HCV, HIVCMB #### [address] [address] [employer] Operator: Bryan Cruz MD MCH (RBC) [Entitic mass] 31.5 pg Normal 26-34 [facility] Comment on above: Performed By: #### A HCV, HIVCMB #### [address] [address] [employer] Operator: Bryan Cruz MD MCHC (RBC) [Mass/Vol] 33.5 g/dL Normal 31-37 [facility] Comment on above: Performed By: #### A HCV, HIVCMB #### [address] [address] [employer] Operator: Bryan Cruz MD MCV (RBC) [Entitic vol] 94.1 fL Normal 80-100 [facility] Comment on above: Performed By: #### A HCV, HIVCMB #### [address] [address] [employer] Operator: Bryan Cruz MD Platelet mean volume (Bld) [Entitic vol] 9.0 fL Normal 6.0-12.0 [facility] Comment on above: Performed By: #### A HCV, HIVCMB #### [address] [address] [employer] Operator: Bryan Cruz MD Platelets (Bld) [#/Vol] 159 10*3/uL Normal 150-450 [facility] Comment on above: Performed By: #### A HCV, HIVCMB #### [address] [address] [employer] Operator: Bryan Cruz MD RBC (Bld) [#/Vol] 4.42 10*6/uL Normal 4.0-5.2 [facility] Comment on above: Performed By: #### A HCV, HIVCMB #### [address] [address] [employer] Operator: Bryan Cruz MD WBC (Bld) [#/Vol] 4.0 10*3/uL Normal 3.5-11.0 [facility] Comment on above: Performed By: #### A HCV, HIVCMB #### [address] [address] [employer] Operator: Bryan Cruz MD Abs.Imm.Granulocyte NOT REPORTED Normal 0.00-0.30 [facility] Comment on above: Performed By: #### A HCV, HIVCMB #### [facility] [address] [place] [address] [employer] Operator: Bryan Cruz MD Auto Diff Performed NOT REPORTED Normal [facility] Comment on above: Performed By: #### A HCV, HIVCMB #### [address] [address] [employer] Operator: Bryan Cruz MD Immature Granulocyte NOT REPORTED Normal 0 [facility] Comment on above: Performed By: #### A HCV, HIVCMB #### [address] [address] [employer] Operator: Bryan Cruz MD NRBC Automated NOT REPORTED Normal [facility] Comment on above: Performed By: #### A HCV, HIVCMB #### [address] [address] [employer] Operator: Bryan Cruz MD Platelet Estimate NOT REPORTED Normal [facility] Comment on above: Performed By: #### A HCV, HIVCMB #### [address] [address] [employer] Operator: Bryan Cruz MD RBC morphology finding Nom (Bld) NOT REPORTED Normal [facility] Comment on above: Performed By: #### A HCV, HIVCMB #### [address] [address] [employer] Operator: Bryan Cruz MD WBC Morphology NOT REPORTED Normal [facility] Comment on above: Performed By: #### A HCV, HIVCMB #### [address] [address] [employer] Operator: Bryan Cruz MD Comp Metabolic Profon 2019 (cont.) Normal [facility] Comment on above: Result Comment: Aver age GFR for 30-39 years old: 107 mL/min/1.73sq m Chronic Kidney Disease: <60 mL/min/1.73sq m Kidney failure: <15 mL/min/1.73sq m eGFR calculated using average adult body mass. Additional eGFR calculator available at: http://www.[employer]/multiple_crcl_2012.htm Performed By: #### A HCV, HIVCMB #### [address] [address] [employer] Operator: Bryan Cruz MD Albumin [Mass/Vol] 3.7 g/dL Normal 3.5-5.2 [facility] Comment on above: Performed By: #### A HCV, HIVCMB #### [address] [address] [employer] Operator: Bryan Cruz MD Alkaline Phos 42 U/L Normal 35-104 [facility] Comment on above: Performed By: #### A HCV, HIVCMB #### [address] [address] [employer] Operator: Bryan Cruz MD ALT [Catalytic activity/Vol] 9 U/L Normal 5-33 [facility] Comment on above: Performed By: #### A HCV, HIVCMB #### [address] [address] [employer] Operator: Bryan Cruz MD Anion gap [Moles/Vol] 10 mmol/L Normal 9-17 [facility] Comment on above: Performed By: #### A HCV, HIVCMB #### [address] [address] [employer] Operator: Bryan Cruz MD AST [Catalytic activity/Vol] 11 U/L Normal <32 [facility] Comment on above: Performed By: #### A HCV, HIVCMB #### [address] [address] [employer] Operator: Bryan Cruz MD Bilirubin [Mass/Vol] 0.23 mg/dL Low 0.3-1.2 [facility] Comment on above: Performed By: #### A HCV, HIVCMB #### [facility] [address] [place] [address] [employer] Operator: Bryan Cruz MD Calcium [Mass/Vol] 9.3 mg/dL Normal 8.6-10.4 [facility] Comment on above: Performed By: #### A HCV, HIVCMB #### [address] [address] [employer] Operator: Bryan Cruz MD Chloride [Moles/Vol] 105 mmol/L Normal 98-107 [facility] Comment on above: Performed By: #### A HCV, HIVCMB #### [address] [address] [employer] Operator: rByan Cruz MD CO2 [Moles/Vol] 24 mmol/L Normal 20-31 [facility] Comment on above: Performed By: #### A HCV, HIVCMB #### [address] [address] [employer] Operator: Bryan Cruz MD Creatinine [Mass/Vol] 0.53 mg/dL Normal 0.50-0.90 [facility] Comment on above: Performed By: #### A HCV, HIVCMB #### [facility] [address] [place] [address] [employer] Operator: Bryan Cruz MD GFR, Amer >60 Normal >60 [facility] Comment on above: Performed By: #### A HCV, HIVCMB #### [facility] [address] [place] [address] [employer] Operator: Bryan Cruz MD GFR,non Amer >60 Normal >60 [facility] Comment on above: Performed By: #### A HCV, HIVCMB #### [address] [address] [employer] Operator: Bryan Cruz MD Glucose [Mass/Vol] 88 mg/dL Normal 70-99 [facility] Comment on above: Performed By: #### A HCV, HIVCMB #### [address] [address] [employer] Operator: Bryan Cruz MD Potassium [Moles/Vol] 4.6 mmol/L Normal 3.7-5.3 [facility] Comment on above: Performed By: #### A HCV, HIVCMB #### [address] [address] [employer] Operator: Bryan Cruz MD Protein [Mass/Vol] 6.4 g/dL Normal 6.4-8.3 [facility] Comment on above: Performed By: #### A HCV, HIVCMB #### [address] [address] [employer] Operator: Bryan Cruz MD Sodium [Moles/Vol] 139 mmol/L Normal 135-144 [facility] Comment on above: Performed By: #### A HCV, HIVCMB #### [address] [address] [employer] Operator: Bryan Cruz MD Urea nitrogen [Mass/Vol] 17 mg/dL Normal 6-20 [facility] Comment on above: Performed By: #### A HCV, HIVCMB #### [address] [address] [employer] Operator: Bryan Cruz MD Albumin/Glob Ratio NOT REPORTED Normal 1.0-2.5 [facility] Comment on above: Performed By: #### A HCV, HIVCMB #### [address] [address] [employer] Operator: Bryan Cruz MD BUN/CRE Ratio NOT REPORTED Normal 9-20 [facility] Comment on above: Performed By: #### A HCV, HIVCMB #### [facility] [address] [place], [place] [id number] [employer] Operator: Bryan Cruz MD Staging: NOT REPORTED Normal [facility] Comment on above: Performed By: #### A HCV, HIVCMB #### [facility] [address] [place], [place] [id number] [employer] Operator: Bryan Cruz MD Albumin [Mass/Vol] 3.7 g/dL 3.5 - 5.2 g/dL [place] Albumin/Globulin [Mass ratio] NOT REPORTED [place] ALP [Catalytic activity/Vol] 42 U/L 35 - 104 U/L [place] ALT [Catalytic activity/Vol] 9 U/L 5 - 33 U/L [place] Anion gap [Moles/Vol] 10 mmol/L 9 - 17 mmol/L [place] AST [Catalytic activity/Vol] 11 U/L <32 [place] Bilirubin Ql (U) 0.23 mg/dL Low 0.3 - 1.2 mg/dL [place] Bun/Cre Ratio NOT REPORTED [place] Calcium [Mass/Vol] 9.3 mg/dL 8.6 - 10. 4 mg/dL [place] Chloride [Moles/Vol] 105 mmol/L 98 - 10 7 mmol/L [place] CO2 [Moles/Vol] 24 mmol/L 20 - 31 mmol/L [place] Creatinine [Mass/Vol] 0.53 mg/dL 0.5 - 0.9 mg/dL [place] GFR >60 >60 mL/min [place] GFR Non- >60 >60 mL/min [place] GFR/1.73 sq M predicted among non-blacks MDRD (S/P/Bld) [Vol rate/Area] NOT REPORTED [place] GFR/1.73 sq M predicted among non-blacks MDRD (S/P/Bld) [Vol rate/Area] [place] Comment on above: Average GFR for 30-3 9 years old: 107 mL/min/1.73sq m Chronic Kidney Disease: <60 mL/min/1.73sq m Kidney failure: <15 mL/min/1.73sq m eGFR calculated using average adult body mass. Additional eGFR calculator available at: http://www.[employer]/multiple_crcl_2012.htm Glucose [Mass/Vol] 88 mg/dL 70 - 99 mg/dL [place], [place] Interpretation and review of laboratory results Abnormal [place] Potassium [Moles/Vol] 4.6 mmol/L 3.7 - 5.3 mmol/L [place] Protein [Mass/Vol] 6.4 g/dL 6.4 - 8.3 g/dL [place] Sodium [Moles/Vol] 139 mmol/L 135 - 144 mmol/L [place] Urea nitrogen [Mass/Vol] 17 mg/dL 6 - 20 mg/dL [place] Hep C Abon 07-20-2020 Hep C Ab Reactive Abnormal NR [facility] Comment on above: Result Comment: The hepatitis [...] Performed By: #### A HCV, HIVCMB #### [id number] [place] [address] [employer]: Bryan Cruz MD Hepatitis C Ab REACTIVE Abnormal NONREACTIVE [place] Comment on above: The hepatitis C [...] Interpretation and review of laboratory results Abnormal [place] TSH w/reflex to FT4on 2019 TSH Qn 3.88 m[IU]/L Normal 0.30-5.00 [facility] Comment on above: Performed By: #### A HCV, HIVCMB #### [id number] [place], [place] [id number] [employer] Operator: Bryan Cruz MD TSH Qn 3.88 m[IU]/L [place] Cult,Urineon 05-09-2019 Cult,Urine Specimen Description .CLEAN CATCH URINE Special Requests NOT REPORTED Culture STREPTOCOCCI, BETA HEMOLYTIC GROUP B <[id number] CFU/ML Report Status FINAL 05/09/2019 Normal [facility] Comment on above: Performed By: #### U RC #### [address] [id number] [employer] Operator: Bryan Cruz MD [address] [place] [id number] [employer] Operator: Reji Brown MD CBC with Diffon 05-08-2019 Abs. Basophil 0.03 k/uL Normal 0.00-0.20 [facility] Comment on above: Performed By: #### C MPX, CDP, LIP, HCG #### [address] [place] [address] [employer] Operator: Reji Brown MD Abs.Imm.Granulocyte <0.03 Normal 0.00-0.30 [facility] Comment on above: Performed By: #### C MPX, CDP, LIP, HCG #### [address] [place] [address] [employer] Operator: Reji Brown MD Abs.Neutrophil (Seg) 2.35 k/uL Normal 1.50-8.10 [facility] Comment on above: Performed By: #### C MPX, CDP, LIP, HCG #### [address] [place] [address] [employer] Operator: Reji Brown MD Basophils/100 WBC (Bld) 1 % Normal 0-2 [facility] Comment on above: Performed By: #### C MPX, CDP, LIP, HCG #### [address] [place] [address] [employer] Operator: Reji Brown MD Eosinophils (Bld) [#/Vol] 0.20 10*3/uL Normal 0.00-0.44 [facility] Comment on above: Performed By: #### C MPX, CDP, LIP, HCG #### [address] [place] [address] [employer] Operator: Reji Brown MD Eosinophils/100 WBC (Bld) 4 % Normal 1-4 [facility] Comment on above: Performed By: #### C MPX, CDP, LIP, HCG #### [address] [place] [address] [employer] Operator: Reji Brown MD Erythrocyte distribution width (RBC) [Ratio] 14.2 % Normal 11.8-14.4 [facility] Comment on above: Performed By: #### C MPX, CDP, LIP, HCG #### [address] [place] [address] [employer] Operator: Reji Brown MD Hematocrit (Bld) [Volume fraction] 34.3 % Low 36.3-47.1 [facility] Comment on above: Performed By: #### C MPX, CDP, LIP, HCG #### [address] [place] [id number] [employer] Operator: Reji Brown MD Hemoglobin (Bld) [Mass/Vol] 11.2 g/dL Low 11.9-15.1 [facility] Comment on above: Performed By: #### C MPX, CDP, LIP, HCG #### [address] [place] [address] [employer]: Reji Brown MD Immature granulocytes (Bld) [#/Vol] 0 % Normal 0 [facility] Comment on above: Performed By: #### C MPX, CDP, LIP, HCG #### [facility] [address] [place] [address] [employer] Operator: Reji Brown MD Lymphocytes (Bld) [#/Vol] 2.75 10*3/uL Normal 1.10-3.70 [facility] Comment on above: Performed By: #### C MPX, CDP, LIP, HCG #### [address] [place] [address] [employer] Operator: Reji Brown MD Lymphocytes/100 WBC (Bld) 46 % High 24-43 [facility] Comment on above: Performed By: #### C MPX, CDP, LIP, HCG #### [address] [place] [address] [employer] Operator: Reji Brown MD MCH (RBC) [Entitic mass] 30.7 pg Normal 25.2-33.5 [facility] Comment on above: Performed By: #### C MPX, CDP, LIP, HCG #### [address] [place] [address] [employer] Operator: Reji Brown MD MCHC (RBC) [Mass/Vol] 32.7 g/dL Normal 28.4-34.8 [facility] Comment on above: Performed By: #### C MPX, CDP, LIP, HCG #### [address] [place] [id number] [employer] Operator: Reji Brown MD MCV (RBC) [Entitic vol] 94.0 fL Normal 82.6-102.9 [facility] Comment on above: Performed By: #### C MPX, CDP, LIP, HCG #### [address] [place] [id number] [employer] Operator: Reji Brown MD Monocytes (Bld) [#/Vol] 0.43 10*3/uL Normal 0.10-1.20 [facility] Comment on above: Performed By: #### C MPX, CDP, LIP, HCG #### [facility] [address] [place], [facility] [employer]: Reji Brown MD Monocytes/100 WBC (Bld) 8 % Normal 3-12 [facility] Comment on above: Performed By: #### C MPX, CDP, LIP, HCG #### [facility] [address] [place], [place] [address] [employer] Operator: Reji Brown MD Neutrophil (Seg) 41 % Normal 36-65 [facility] Comment on above: Performed By: #### C MPX, CDP, LIP, HCG #### [facility] [address] [place], [place] [address] [employer] Operator: Reji Brown MD NRBC Automated 0.0 per 100 WBC Normal 0.0 [facility] Comment on above: Performed By: #### C MPX, CDP, LIP, HCG #### [facility] [address] [place], [facility] [employer]: Reji Brown MD Platelet mean volume (Bld) [Entitic vol] 10.5 fL Normal 8.1-13.5 [facility] Comment on above: Performed By: #### C MPX, CDP, LIP, HCG #### [facility] [address] [place], [facility] [employer] Operator: Reji Brown MD Platelets (Bld) [#/Vol] 219 10*3/uL Normal 138-453 [facility] Comment on above: Performed By: #### C MPX, CDP, LIP, HCG #### [facility] [address] [place], [facility] [employer] Operator: Reji Brown MD RBC (Bld) [#/Vol] 3.65 10*6/uL Low 3.95-5.11 [facility] Comment on above: Performed By: #### C MPX, CDP, LIP, HCG #### [facility] [address] [place], [place] [address] [employer] Operator: Reji Brown MD WBC (Bld) [#/Vol] 5.8 10*3/uL Normal 3.5-11.3 [facility] Comment on above: Performed By: #### C MPX, CDP, LIP, HCG #### [facility] [address] [place], [place] [address] [employer] Operator: Reji Brown MD Auto Diff Performed NOT REPORTED Normal [facility] Comment on above: Performed By: #### C MPX, CDP, LIP, HCG #### [facility] [address] [place], [place] [address] [employer] Operator: Reji Brown MD Platelets (Bld) [#/Vol] NOT REPORTED Normal [facility] Comment on above: Performed By: #### C MPX, CDP, LIP, HCG #### [facility] [address] [place], [place] 13[address]383 [employer] Operator: Reji Brown MD RBC morphology finding Nom (Bld) NOT REPORTED Normal [facility] Comment on above: Performed By: #### C MPX, CDP, LIP, HCG #### [facility] [address] [place], [place] [address] [employer] Operator: Reji Brown MD WBC Morphology NOT REPORTED Normal [facility] Comment on above: Performed By: #### C MPX, CDP, LIP, HCG #### [facility] [address] [place], [place] [address] [employer] Operator: Reji Brown MD Comp Metabolic Pr/rfx MGon 0 05-08-2019 Bilirubin Ql (U) <0.10 Low 0.3-1.2 [facility] Comment on above: Performed By: #### C MPX, CDP, LIP, HCG #### [facility] [address] [place] [address] [employer] Operator: Reji Brown MD (cont.) [facility] Comment on above: Result Comment: Aver age GFR for 30-39 years old: 107 mL/min/1.73sq m Chronic Kidney Disease: <60 mL/min/1.73sq m Kidney failure: <15 mL/min/1.73sq m eGFR calculated using average adult body mass. Additional eGFR calculator available at: http://www.[employer]/multiple_crcl_2011.htm Performed By: #### C MPX, CDP, LIP, HCG #### [facility] [address] [place] [id number] [employer] Operator: Reji Brown MD Albumin [Mass/Vol] 4.0 g/dL Normal 3.5-5.2 [facility] Comment on above: Performed By: #### C MPX, CDP, LIP, HCG #### [facility] [address] [place] [id number] [employer] Operator: Reji Brown MD Albumin/Globulin [Mass ratio] 1.5 {ratio} Normal 1.0-2.5 [facility] Comment on above: Performed By: #### C MPX, CDP, LIP, HCG #### [facility] [address] [place], [facility] [employer] Operator: Reji Brown MD Alkaline Phos 53 U/L Normal 35-104 [facility] Comment on above: Performed By: #### C MPX, CDP, LIP, HCG #### [facility] [address] [place] [address] [employer] Operator: Reji Brown MD ALT [Catalytic activity/Vol] 11 U/L Normal 5-33 [facility] Comment on above: Performed By: #### C MPX, CDP, LIP, HCG #### [facility] [address] [place], [place] [address]283 [employer] Operator: Reji Brown MD Anion gap [Moles/Vol] 9 mmol/L Normal 9-17 [facility] Comment on above: Performed By: #### C MPX, CDP, LIP, HCG #### [facility] [address] [place], [place] [address]283 [employer] Operator: Reji Brown MD AST [Catalytic activity/Vol] 16 U/L Normal <32 [facility] Comment on above: Performed By: #### C MPX, CDP, LIP, HCG #### [facility] [address] [place] [address]83 [employer] Operator: Reji Brown MD BUN/CRE Ratio 19 Normal 9-20 [facility] Comment on above: Performed By: #### C MPX, CDP, LIP, HCG #### [facility] [address] [place] [address] [employer] Operator: Reji Brown MD Calcium [Mass/Vol] 9.7 mg/dL Normal 8.6-10.4 [facility] Comment on above: Performed By: #### C MPX, CDP, LIP, HCG #### [facility] [address] [place], [place] 133[address]83 [employer] Operator: Reji Brown MD Chloride [Moles/Vol] 102 mmol/L Normal 98-107 [facility] Comment on above: Performed By: #### C MPX, CDP, LIP, HCG #### [facility] [address] [place], [place] 1411383 [employer] Operator: Reji Brown MD CO2 [Moles/Vol] 31 mmol/L Normal 20-31 [facility] Comment on above: Performed By: #### C MPX, CDP, LIP, HCG #### [facility] [address] [place] 3137183 [employer] Operator: Reji Brown MD Creatinine [Mass/Vol] 0.79 mg/dL Normal 0.50-0.90 [facility] Comment on above: Performed By: #### C MPX, CDP, LIP, HCG #### [facility] [address] [place], [place] [address] [employer] Operator: Reji Brown MD GFR, Amer >60 Normal >60 [facility] Comment on above: Performed By: #### C MPX, CDP, LIP, HCG #### [facility] [address] [place], [place] [address] [employer] Operator: Reji Brown MD GFR,non Amer >60 Normal >60 [facility] Comment on above: Performed By: #### C MPX, CDP, LIP, HCG #### [facility] [address] [place], [place] 8169383 [employer] Operator: Reji Brown MD Glucose [Mass/Vol] 102 mg/dL High 70-99 [facility] Comment on above: Performed By: #### C MPX, CDP, LIP, HCG #### [facility] [address] [place], [place] [address]83 [employer] Operator: Reji Brown MD Potassium [Moles/Vol] 4.5 mmol/L Normal 3.7-5.3 [facility] Comment on above: Performed By: #### C MPX, CDP, LIP, HCG #### [facility] [address] [place], [place] [address] [employer] Operator: Reji Brown MD Protein [Mass/Vol] 6.7 g/dL Normal 6.4-8.3 [facility] Comment on above: Performed By: #### C MPX, CDP, LIP, HCG #### [facility] [address] [place], [place] [address] [employer] Operator: Reji Brown MD Sodium [Moles/Vol] 142 mmol/L Normal 135-144 [facility] Comment on above: Performed By: #### C MPX, CDP, LIP, HCG #### [facility] [address] [place] [address] [employer] Operator: Reji Brown MD Staging: Normal [facility] Comment on above: Result Comment: Stag e 1: Some kidney damage normal GFR Stage 2: Mild kidney damage GFR 60-89 Stage 3: Moderate kidney damage GFR 30-59 Stage 4: Severe kidney damage GFR 15-29 Stage 5: Severe kidney damage GFR <15 ESRD - chronic treatment by dialysis or transplant Performed By: #### C MPX, CDP, LIP, HCG #### [facility] [address] [place] [address] [employer] Operator: Reji Brown MD Urea nitrogen [Mass/Vol] 15 mg/dL Normal 6-20 [facility] Comment on above: Performed By: #### C MPX, CDP, LIP, HCG #### [facility] [address] [place] [address] [employer] Operator: Reji Brown MD HCG Screen, Bloodon 05-08-20 19 HCG Qn Negative Normal NEG [facility] Comment on above: Result Comment: Spec imens with hCG levels near the threshold of the test (25 mIU/mL) may give a negative or indeterminate result. In such cases, another test should be performed with a new specimen in 48-72 hours. If early is suspected clinically in this setting, correlation with quantitative serum b-hCG level is suggested. [facility] has confirmed the use of plasma for this test. This has not been cleared or approved by the U.[place]. Food and Drug Administration. The FDA has determined that such clearance is not necessary. Performed By: #### C MPX, CDP, LIP, HCG #### [facility] [address] [place] [address] [employer] Operator: Reji Brown MD Lipaseon 05-08-2019 Lipase [Catalytic activity/Vol] 13 U/L Normal 13-60 [facility] Comment on above: Performed By: #### C MPX, CDP, LIP, HCG #### [facility] [address] [place], [place] [address] [employer] Operator: Reji Brown MD Urinalysis, Routineon 2018 Acetoacetic Acid,Ur Negative Normal [facility] Comment on above: Performed By: #### U MICAO, UA #### [facility] [address] [place], [place] [address]110683 [employer] Operator: Reji Brown MD Bilirubin, SemiQt,Ur Negative Normal [facility] Comment on above: Performed By: #### U MICAO, UA #### [facility] [address] [place], [place] 33[address] [employer] Operator: Reji Brown MD Color (U) YELLOW Normal YEL [facility] Comment on above: Performed By: #### U MICAO, UA #### [facility] [address] [place], [place] 50[address] [employer] Operator: Reji Brown MD Glucose Ql (U) Negative Normal [facility] Comment on above: Performed By: #### U MICAO, UA #### [facility] [address] [place], [place] [address]783 [employer] Operator: Reji Brown MD Hemoglobin, Ur Negative Normal [facility] Comment on above: Performed By: #### U MICAO, UA #### [facility] [address] [place], [place] 399[address]83 [employer] Operator: Reji Brown MD Leukocyte esterase Test strip Ql (U) Negative Normal [facility] Comment on above: Performed By: #### U MICAO, UA #### [facility] [address] [place], [place] [address] [employer] Operator: Reji Brown MD Nitrite,Ur Negative Normal [facility] Comment on above: Performed By: #### U MICAO, UA #### [facility] [address] [place], [place] 228[address]83 [employer] Operator: Reji Brown MD pH (U) 7.5 [pH] Normal 5.0-9.0 [facility] Comment on above: Performed By: #### U MICAO, UA #### [facility] [address] [place], [place] [address]83 [employer] Operator: Reji Brown MD Protein Ql (U) Negative Normal NEG [facility] Comment on above: Performed By: #### U MICAO, UA #### [facility] [address] [place], [place] 0639[address] [employer] Operator: Reji Brown MD Specific gravity (U) [Rel density] 1.015 Normal 1.010-1.020 [facility] Comment on above: Performed By: #### U ASHELYO, UA #### [facility] [address] [place], [place] [address]99[address] [employer] Operator: Reji Brown MD Turbidity CLOUDY Abnormal CLEAR [facility] Comment on above: Performed By: #### U ASHELYO, UA #### [facility] [address] [place], [place] 9[address]83 [employer] Operator: Reji Brown MD Urobilinogen,Ur Normal Normal NORM [facility] Comment on above: Performed By: #### U MICAO, UA #### [facility] [address] [place], [facility] [employer] Operator: Reji Brown MD Comment NOT REPORTED Normal [facility] Comment on above: Performed By: #### U MICAO, UA #### [facility] [address] [place], [place] 5355[address] [employer] Operator: Reji Brown MD Urinalysis,Microon 07-28-201 9 ----- Normal [facility] Comment on above: Performed By: #### U MICAO, UA #### [facility] [address] [place], [place] [address] [employer] Operator: Reji Brown MD Amorphous sediment LM Ql (Urine sed) 4+ Abnormal [facility] Comment on above: Performed By: #### U MICAO, UA #### [address] [place] [id number] [employer] Operator: Reji Brown MD Epithelial cells LM.HPF (Urine sed) [#/Area] 5 TO 10 Normal 0-25 [facility] Comment on above: Performed By: #### U ASHELYO, UA #### [address] [place] [address] [employer] Operator: Reji Brown MD RBC (U) [#/Vol] None Normal 0-2 [facility] Comment on above: Performed By: #### U ASHELYO, UA #### [address] [place] [address] [employer] Operator: Reji Brown MD WBC (U) [#/Vol] None Normal 0-5 [facility] Comment on above: Performed By: #### U ASHELYO, UA #### [address] [place] [id number] [employer] Operator: Reji Brown MD Bacteria LM.HPF (Urine sed) [#/Area] NOT REPORTED Normal [facility] Comment on above: Performed By: #### U MICAO, UA #### [address] [place] [address] [employer] Operator: Reji Brown MD Casts LM.LPF (Urine sed) [#/Area] NOT REPORTED Normal [facility] Comment on above: Performed By: #### U MICAO, UA #### [address] [place], [place] [address]127383 [employer] Operator: Reji Brown MD Crystals LM Nom (Urine sed) NOT REPORTED Normal [facility] Comment on above: Performed By: #### U MICAO, UA #### [facility] [address] [place], [place] [address] [employer] Operator: Reji Brown MD Epithelial, Renal NOT REPORTED Normal 0 [facility] Comment on above: Performed By: #### U MICAO, UA #### [facility] [address] [place], [place] [address]48[address] [employer] Operator: Reji Brown MD Mucus Strands NOT REPORTED Normal NONE [facility] Comment on above: Performed By: #### U MICAO, UA #### [facility] [address] [place] [address] [employer] Operator: Reji Brown MD Other Observations NOT REPORTED Normal NREQ [facility] Comment on above: Performed By: #### U MICAO, UA #### [facility] [address] [place], [place] [address] [employer] Operator: Reji Brown MD Trichomonas NOT REPORTED Normal NONE [facility] Comment on above: Performed By: #### U MICAO, UA #### [facility] [address] [place] [address] [employer] Operator: Reji Brown MD Yeast LM Ql (Urine sed) NOT REPORTED Normal [facility] Comment on above: Performed By: #### U MICAO, UA #### [facility] [address] [place] [address] [employer] Operator: Reji Brown MD XR ACUTE ABD SERIES [...] Cleve Velazquez MD 05/08/19 Final result Normal [facility] Vital Signs Date Time Vital Sign Value Performing Clinician Facility 10-21-2023 07:30-0500 Body temperature 97.4 [degF] [employer] Cris Robronaldo Work Phone: [facility] 10-21-2023 07:30-0500 Diastolic blood pressure 67 mm[Hg] [employer] Cris Robuck Work Phone: [facility] 10-21-2023 07:30-0500 Heart rate 81 /min [employer] Cris Robronaldo Work Phone: [facility] 10-21-2023 07:30-0500 SaO2% (BldA) [Mass fraction] 99 % [employer] ASSEMBLYApoorva Lynch Robronaldo Work Phone: [facility] 10-21-2023 07:30-0500 Systolic blood pressure 102 mm[Hg] [employer] Cris Robuck Work Phone: [facility] 10-20-2023 21:59-0500 Respiratory rate 16 /min [employer] Cris Robronaldo Work Phone: [facility] 10-19-2023 09:00-0500 Body weight 69 kg [employer] Cris Robronaldo Work Phone: [facility] 10-16-2023 08:34-0500 Body height 167.64 cm [employer] Cris Robronaldo Work Phone: [facility] 10-09-2023 01:00-0500 Diastolic blood pressure 58 mm[Hg] [facility] 10-09-2023 01:00-0500 Heart rate 68 /min [facility] 10-09-2023 01:00-0500 Respiratory rate 16 /min [facility] 10-09-2023 01:00-0500 SaO2% (BldA) [Mass fraction] 93 % [facility] 10-09-2023 01:00-0500 Systolic blood pressure 102 mm[Hg] [facility] 10-08-2023 20:56-0500 Body height 167.[address] [facility] 10-08-2023 20:56-0500 Body temperature 98.6 [degF] [facility] 10-08-2023 20:56-0500 Body weight [address] [facility] 09-14-2023 18:27-0500 Body height 167.64 cm [employer] Cris Robuck Work Phone: [facility] 09-14-2023 18:27-0500 Body temperature 98.1 [degF] [employer] Cris Robuck Work Phone: [facility] 09-14-2023 18:27-0500 Body weight 73 kg [employer] Cris Robuck Work Phone: [facility] 09-14-2023 18:27-0500 Diastolic blood pressure 80 mm[Hg] [employer] Cris Robuck Work Phone: [facility] 09-14-2023 18:27-0500 Heart rate 97 /min [employer] Cris Robuck Work Phone: [facility] 09-14-2023 18:27-0500 Respiratory rate 16 /min [employer] Cris Robuck Work Phone: [facility] 09-14-2023 18:27-0500 SaO2% (BldA) [Mass fraction] 98 % [employer] Cris Robuck Work Phone: [facility] 09-14-2023 18:27-0500 Systolic blood pressure 128 mm[Hg] [employer] Cris Robuck Work Phone: [facility] 07-13-2023 09:00-0400 Body weight 79.[address] [facility] 07-13-2023 07:30-0400 Body temperature 98.4 [degF] [facility] 07-13-2023 07:30-0400 Diastolic blood pressure 72 mm[Hg] [facility] 07-13-2023 07:30-0400 Heart rate 98 /min [facility] 07-13-2023 07:30-0400 Respiratory rate 20 /min [facility] 07-13-2023 07:30-0400 SaO2% (BldA) [Mass fraction] 95 % [facility] 07-13-2023 07:30-0400 Systolic blood pressure 105 mm[Hg] [facility] 07-08-2023 14:36-0400 Body height 165.[address] [facility] 06-08-2023 08:18-0400 Body height 165.[address] [facility] 06-08-2023 08:18-0400 Body temperature 97.7 [degF] [facility] 06-08-2023 08:18-0400 Body weight 67.[address] [facility] 06-08-2023 08:18-0400 Diastolic blood pressure 55 mm[Hg] [facility] 06-08-2023 08:18-0400 Heart rate 68 /min [facility] 06-08-2023 08:18-0400 Respiratory rate 18 /min [facility] 06-08-2023 08:18-0400 SaO2% (BldA) [Mass fraction] 98 % [facility] 06-08-2023 08:18-0400 Systolic blood pressure 120 mm[Hg] [facility] 04-19-2023 19:09-0400 Body height 165.1 cm [employer]PER[employer] Cris Robuck Work Phone: [facility] 04-19-2023 19:09-0400 Body temperature 97.6 [degF] [employer] Cris Robuck Work Phone: [facility] 04-19-2023 19:09-0400 Body weight 66.55 kg SUPER[employer] Cris Robuck Work Phone: [facility] 04-19-2023 19:09-0400 Diastolic blood pressure 97 mm[Hg] SUPER[employer] Cris Robuck Work Phone: [facility] 04-19-2023 19:09-0400 Heart rate 83 /min [employer] Cris Robuck Work Phone: [facility] 04-19-2023 19:09-0400 Respiratory rate 18 /min [employer] Cris Robuck Work Phone: [facility] 04-19-2023 19:09-0400 SaO2% (BldA) [Mass fraction] 100 % SUPER[employer] Cris Robuck Work Phone: [facility] 04-19-2023 19:09-0400 Systolic blood pressure 124 mm[Hg] SUPER[employer] Cris Robuck Work Phone: [facility] 04-18-2023 22:55-0400 Diastolic blood pressure 88 mm[Hg] SUPER[employer] Cris Robuck Work Phone: [facility] 04-18-2023 22:55-0400 Heart rate 98 /min [employer] Cris Robuck Work Phone: [facility] 04-18-2023 22:55-0400 Respiratory rate 16 /min SUPER[employer] Cris Robuck Work Phone: [facility] 04-18-2023 22:55-0400 SaO2% (BldA) [Mass fraction] 98 % SUPER[employer] Cris Robuck Work Phone: [facility] 04-18-2023 22:55-0400 Systolic blood pressure 136 mm[Hg] SUPER[employer] Cris Robuck Work Phone: [facility] 04-18-2023 21:13-0400 Body height 165.1 cm SUPER[employer] Cris Robuck Work Phone: [facility] 04-18-2023 21:13-0400 Body temperature 98 [degF] SUPER[employer] Cris Pena Work Phone: [facility] 04-18-2023 21:13-0400 Body weight 66.45 kg SUPERVISOR [employer] Cris Pena Work Phone: [facility] 04-16-2023 14:57-0400 Body weight 65.77 kg Mireille Muha SUPERVISOR [employer].PRIMARY HEALTH ORGANISATION MANAGER Work Phone: [facility] 04-16-2023 14:57-0400 Diastolic blood pressure 79 mm[Hg] Mireille Muha SUPERVISOR [employer].PRIMARY HEALTH ORGANISATION MANAGER Work Phone: [facility] 04-16-2023 14:57-0400 Heart rate 108 /min Mireille Muha SUPERVISOR [employer].PRIMARY HEALTH ORGANISATION MANAGER Work Phone: [facility] 04-16-2023 14:57-0400 Systolic blood pressure 133 mm[Hg] Mireille Muha SUPERVISOR [employer].PRIMARY HEALTH ORGANISATION MANAGER Work Phone: [facility] 03-16-2023 08:40-0400 Body height 167.9 cm Mireille Muha SUPERVISOR [employer].PRIMARY HEALTH ORGANISATION MANAGER Work Phone: [facility] 03-16-2023 08:40-0400 Body temperature 98.1 [degF] Mireille Muha SUPERVISOR [employer].PRIMARY HEALTH ORGANISATION MANAGER Work Phone: [facility] 03-16-2023 08:40-0400 Body weight 69.85 kg Mireille Muha SUPERVISOR [employer].PRIMARY HEALTH ORGANISATION MANAGER Work Phone: [facility] 03-16-2023 08:40-0400 Diastolic blood pressure 74 mm[Hg] Mireille Muha SUPERVISOR [employer].PRIMARY HEALTH ORGANISATION MANAGER Work Phone: [facility] 03-16-2023 08:40-0400 Heart rate 88 /min Mireille Muha SUPERVISOR [employer].PRIMARY HEALTH ORGANISATION MANAGER Work Phone: [facility] 03-16-2023 08:40-0400 SaO2% (BldA) [Mass fraction] 98 % Mireille Muha SUPERVISOR [employer].PRIMARY HEALTH ORGANISATION MANAGER Work Phone: [facility] 03-16-2023 08:40-0400 Systolic blood pressure 120 mm[Hg] Mireille Cheatham SUPERVISOR [employer] ASSEMBLYWAI Work Phone: [facility] 02-24-2023 12:15-0400 Body height 170.18 cm SUPERVISOR [employer] Cris Robuck Work Phone: [facility] 02-24-2023 12:15-0400 Body temperature 97.6 [degF] SUPERVIS[employer] Cris Robuck Work Phone: 6(425)369-957469 [place] [address] 02-24-2023 12:15-0400 Body weight 66.5 kg SUPER[employer] Cris Robuck Work Phone: 6(405)897-802569 [place] [address] 02-24-2023 12:15-0400 Diastolic blood pressure 59 mm[Hg] SUPERVIS[employer] Cris Robuck Work Phone: [facility] 02-24-2023 12:15-0400 Heart rate 75 /min [employer]PER[employer] Cris Robuck Work Phone: 3(635)[phone] [place] [address] 02-24-2023 12:15-0400 Respiratory rate 20 /min SUPER[employer] Cris Robuck Work Phone: [facility] 02-24-2023 12:15-0400 SaO2% (BldA) [Mass fraction] 100 % SUPER[employer] Cris Robuck Work Phone: [facility] 02-24-2023 12:15-0400 Systolic blood pressure 105 mm[Hg] SUPERVISOR [employer] Cris Robuck Work Phone: [facility] 02-03-2023 19:12-0400 Diastolic blood pressure 64 mm[Hg] SUPERVISOR [employer] Cris Robuck Work Phone: [facility] 02-03-2023 19:12-0400 Heart rate 84 /min [employer]PER[employer] Cris Robuck Work Phone: 2(445)[phone] [place] [address] 02-03-2023 19:12-0400 Respiratory rate 17 /min SUPER[employer] Cris Robuck Work Phone: 9(094)[phone] [place] [address] 02-03-2023 19:12-0400 SaO2% (BldA) [Mass fraction] 98 % SUPERVIS[employer] Cris Robuck Work Phone: [facility] 02-03-2023 19:12-0400 Systolic blood pressure 107 mm[Hg] SUPERVISOR [employer] Cris Robuck Work Phone: [facility] 02-03-2023 11:00-0400 Body height 165.1 cm SUPERVISOR F[employer] ASSEMBLYApoorva Lynch Robuck Work Phone: [facility] 02-03-2023 11:00-0400 Body weight 66.2 kg SUPERVISOR F[employer] ASSEMBLYApoorva Lynch Robuck Work Phone: [facility] 02-03-2023 10:59-0400 Body temperature 98.2 [degF] SUPERVISOR F[employer] ASSEMBLYApoorva Lynch Robuck Work Phone: [facility] 01-26-2023 21:53-0400 Body height 167.64 cm DO Rachael Tupa Work Phone: [facility] 01-26-2023 21:53-0400 Body temperature 97.7 [degF] DO Rachael Tupa Work Phone: [facility] 01-26-2023 21:53-0400 Body weight 67.4 kg DO Rachael Tupa Work Phone: [facility] 01-26-2023 21:53-0400 Diastolic blood pressure 63 mm[Hg] DO Rachael Tupa Work Phone: [facility] 01-26-2023 21:53-0400 Heart rate 87 /min DO Rachael Tupa Work Phone: [facility] 01-26-2023 21:53-0400 Respiratory rate 20 /min DO Rachael Tupa Work Phone: [facility] 01-26-2023 21:53-0400 SaO2% (BldA) [Mass fraction] 97 % DO Rachael Tupa Work Phone: [facility] 01-26-2023 21:53-0400 Systolic blood pressure 116 mm[Hg] DO Rachael Tupa Work Phone: [facility] 01-16-2023 07:21-0400 Body temperature 97.4 [degF] DO Rachael Tupa Work Phone: [facility] 01-16-2023 07:21-0400 Diastolic blood pressure 61 mm[Hg] DO Rachael Tupa Work Phone: [facility] 01-16-2023 07:21-0400 Heart rate 79 /min DO Rachael Tupa Work Phone: [facility] 01-16-2023 07:21-0400 Respiratory rate 16 /min DO Rachael Tupa Work Phone: [facility] 01-16-2023 07:21-0400 SaO2% (BldA) [Mass fraction] 98 % DO Rachael Tupa Work Phone: [facility] 01-16-2023 07:21-0400 Systolic blood pressure 105 mm[Hg] DO Rachael Tupa Work Phone: [facility] 01-13-2023 15:02-0400 Body height 165.1 cm DO Rachael Tupa Work Phone: [facility] 01-12-2023 15:41-0400 Body weight 60.9 kg DO Rachael Tupa Work Phone: [facility] 01-12-2023 11:28-0400 Diastolic blood pressure 72 mm[Hg] DO Rachael Tupa Work Phone: [facility] 01-12-2023 11:28-0400 Heart rate 106 /min DO Rachael Tupa Work Phone: [facility] 01-12-2023 11:28-0400 Respiratory rate 18 /min DO Rachael Tupa Work Phone: [facility] 01-12-2023 11:28-0400 SaO2% (BldA) [Mass fraction] 98 % DO Rachael Tupa Work Phone: [facility] 01-12-2023 11:28-0400 Systolic blood pressure 119 mm[Hg] DO Rachael Tupa Work Phone: [facility] 01-12-2023 07:59-0400 Body height 165.1 cm DO Rachael Tupa Work Phone: [facility] 01-12-2023 07:59-0400 Body weight 60.9 kg DO Rachael Tupa Work Phone: [facility] 01-12-2023 07:58-0400 Body temperature 97.3 [degF] DO Rachael Tupa Work Phone: [facility] 11-20-2022 18:18-0500 Diastolic blood pressure 112 mm[Hg] DO Rachael Tupa Work Phone: [facility] 11-20-2022 18:18-0500 Heart rate 125 /min DO Rachael Tupa Work Phone: [facility] 11-20-2022 18:18-0500 Respiratory rate 17 /min DO Rachael Tupa Work Phone: [facility] 11-20-2022 18:18-0500 SaO2% (BldA) [Mass fraction] 96 % DO Rachael Tupa Work Phone: [facility] 11-20-2022 18:18-0500 Systolic blood pressure 160 mm[Hg] DO Rachael Tupa Work Phone: [facility] 11-20-2022 16:10-0500 Body height 167.64 cm DO Rachael Tupa Work Phone: [facility] 11-20-2022 16:10-0500 Body temperature 98.5 [degF] DO Rachael Tupa Work Phone: [facility] 11-20-2022 16:10-0500 Body weight 69 kg DO Rachael Tupa Work Phone: [facility] 11-20-2022 02:58-0500 Body height 167.64 cm DO Rachael Tupa Work Phone: [facility] 11-20-2022 02:58-0500 Body temperature 98.3 [degF] DO Rachael Tupa Work Phone: [facility] 11-20-2022 02:58-0500 Body weight 69.5 kg DO Rachael Tupa Work Phone: [facility] 11-20-2022 02:58-0500 Diastolic blood pressure 96 mm[Hg] DO Rachael Tupa Work Phone: [facility] 11-20-2022 02:58-0500 Heart rate 96 /min DO Rachael Tupa Work Phone: [facility] 11-20-2022 02:58-0500 Respiratory rate 18 /min DO Rachael Tupa Work Phone: [facility] 11-20-2022 02:58-0500 SaO2% (BldA) [Mass fraction] 98 % DO Rachael Tupa Work Phone: [facility] 11-20-2022 02:58-0500 Systolic blood pressure 169 mm[Hg] DO Rachael Tupa Work Phone: [facility] 11-10-2022 01:55-0500 Diastolic blood pressure 80 mm[Hg] Christian Chucky [facility] 11-10-2022 01:55-0500 Heart rate 71 /min Christian Chucky [facility] 11-10-2022 01:55-0500 Mean blood pressure 92 mm[Hg] Christian Chucky [facility] 11-10-2022 01:55-0500 Respiratory rate 14 /min Christian Chucky [facility] 11-10-2022 01:55-0500 SaO2% (BldA) [Mass fraction] 96 % Christian Chucky [facility] 11-10-2022 01:55-0500 Systolic blood pressure 116 mm[Hg] Christian Chucky [facility] 11-10-2022 01:08-0500 Heart rate 72 /min Christian Chucky [facility] 11-10-2022 01:08-0500 SaO2% (BldA) [Mass fraction] 94 % Christian Chucky [facility] 11-09-2022 21:52-0500 Diastolic blood pressure 95 mm[Hg] Christian Chucky [facility] 11-09-2022 21:52-0500 Heart rate 96 /min Christian Chucky [facility] 11-09-2022 21:52-0500 Respiratory rate 18 /min Christian Chucky [facility] 11-09-2022 21:52-0500 SaO2% (BldA) [Mass fraction] 99 % Christian Chucky [facility] 11-09-2022 21:52-0500 Systolic blood pressure 122 mm[Hg] Christian Chucky [facility] 11-09-2022 20:52-0500 Body temperature 98.78 [degF] Christian Chucky [facility] 11-09-2022 20:52-0500 Diastolic blood pressure 87 mm[Hg] Christian Chucky [facility] 11-09-2022 20:52-0500 Respiratory rate 18 /min Christian Chucky [facility] 11-09-2022 20:52-0500 Systolic blood pressure 145 mm[Hg] Christian Chucky [facility] 11-06-2022 14:38-0500 Blood Pressure Location Cris ROBUCK [facility] 11-06-2022 14:38-0500 Diastolic blood pressure 88 mm[Hg] Cris ROBUCK [facility] 11-06-2022 14:38-0500 Heart rate 96 /min Cris ROBUCK [facility] 11-06-2022 14:38-0500 SaO2% (BldA) [Mass fraction] 96 % Cris ROBUCK [facility] 11-06-2022 14:38-0500 Systolic blood pressure 132 mm[Hg] Cris ROBUCK [facility] 10-10-2022 12:46-0500 Blood Pressure Location Cris ROBUCK [facility] 10-10-2022 12:46-0500 Body temperature 98.06 [degF] Cris ROBUCK [facility] 10-10-2022 12:46-0500 Diastolic blood pressure 78 mm[Hg] Cris ROBUCK [facility] 10-10-2022 12:46-0500 Heart rate 89 /min Cris ROBUCK [facility] 10-10-2022 12:46-0500 SaO2% (BldA) [Mass fraction] 98 % Cris ROBUCK [facility] 10-10-2022 12:46-0500 Systolic blood pressure 130 mm[Hg] Cris ROBUCK [facility] 10-02-2022 14:08-0500 Blood Pressure Location NANCY SIDELL [facility] 10-02-2022 14:08-0500 Body temperature 98.24 [degF] NANCY SIDELL [facility] 10-02-2022 14:08-0500 Diastolic blood pressure 78 mm[Hg] NANCY SIDELL [facility] 10-02-2022 14:08-0500 Heart rate 93 /min NANCY SIDELL [facility] 10-02-2022 14:08-0500 SaO2% (BldA) [Mass fraction] 98 % NANCY SIDELL [facility] 10-02-2022 14:08-0500 Systolic blood pressure 136 mm[Hg] NANCY SIDELL [facility] 08-08-2022 23:00-0400 Body height 167.64 cm DO Rachael Tupa Work Phone: [facility] 08-08-2022 23:00-0400 Body temperature 98.1 [degF] DO Rachael Tupa Work Phone: [facility] 08-08-2022 23:00-0400 Body weight 68.55 kg DO Rachael Tupa Work Phone: [facility] 08-08-2022 23:00-0400 Diastolic blood pressure 71 mm[Hg] DO Rachael Tupa Work Phone: [facility] 08-08-2022 23:00-0400 Heart rate 87 /min DO Rachael Tupa Work Phone: [facility] 08-08-2022 23:00-0400 Respiratory rate 20 /min DO Rachael Reyes Work Phone: [facility] 08-08-2022 23:00-0400 SaO2% (BldA) [Mass fraction] 95 % DO Rachael Reyes Work Phone: [facility] 08-08-2022 23:00-0400 Systolic blood pressure 118 mm[Hg] DO Rachael Reyes Work Phone: [facility] 04-25-2022 00:00-0400 Blood Pressure Location Luis Armando Gastelume [facility] 04-25-2022 00:00-0400 Diastolic blood pressure 58 mm[Hg] Luis Armando Osei [facility] 04-25-2022 00:00-0400 Heart rate 82 /min Luis Armando Gastelume [facility] 04-25-2022 00:00-0400 Mean blood pressure 71 mm[Hg] Luis Armando Gastelume [facility] 04-25-2022 00:00-0400 SaO2% (BldA) [Mass fraction] 98 % Luis Armando Osei [facility] 04-25-2022 00:00-0400 Systolic blood pressure 97 mm[Hg] Luis Armando Osei [facility] 04-24-2022 18:53-0400 Diastolic blood pressure 87 mm[Hg] Luis Armando Osei [facility] 04-24-2022 18:53-0400 Heart rate 99 /min Luis Armando Osei [facility] 04-24-2022 18:53-0400 Mean blood pressure 102 mm[Hg] Luis Armando Osei [facility] 04-24-2022 18:53-0400 Respiratory rate 18 /min Luis Armando Gastelume [facility] 04-24-2022 18:53-0400 SaO2% (BldA) [Mass fraction] 96 % Luis Armando Franz [facility] 04-24-2022 18:53-0400 Systolic blood pressure 132 mm[Hg] Luis Armando Franz [facility] 04-24-2022 13:05-0400 Body temperature 98.78 [degF] Luis Armando Franz [facility] 04-24-2022 13:05-0400 Diastolic blood pressure 97 mm[Hg] Luis Armando Franz [facility] 04-24-2022 13:05-0400 Heart rate 118 /min Luis Armando Franz [facility] 04-24-2022 13:05-0400 SaO2% (BldA) [Mass fraction] 96 % Luis Armando Franz [facility] 04-24-2022 13:05-0400 Systolic blood pressure 163 mm[Hg] Luis Armando Franz [facility] 07-31-2020 07:48-0400 Body Temperature 98.01 [degF] [facility] [place] [place] [facility] 07:48-0400 BP Diastolic 67 mm[Hg] [place], [place] 07-31-2020 07:48-0400 BP Systolic 108 mm[Hg] [place] 07-31-2020 07:48-0400 Pulse (Heart Rate) 82 /min [place], [place] 07-31-2020 07:48-0400 Respiratory Rate 14 /min [facility] [employer] 07-29-2020 08:04-0400 Pulse Oximetry 100 % [place] 07-18-2020 02:42-0400 BMI (Body Mass Index) 24.96 kg/m2 [place], [place] 07-18-2020 02:42-0400 Body weight 68.04 kg [place] 07-18-2020 02:42-0400 Height 165.1 cm [facility] KARMEN Encounters Encounter Date Encounter Type Care Provider Facility Start: 11-24-2023 ambulatory Cris PENA Facility :[facility] Start: 10-27-2023 ambulatory Cris E JEAN Facility :[facility] Start: 10-23-2023 End: 10-28-2023 ambulatory Cris PENA Facility::[id number] Start: 10-09-2023 End: 10-21-2023 Evaluation and management of inpatient Bobo Cornelius Facility:[facility] Start: 10-09-2023 End: 10-21-2023 Evaluation and management of inpatient [facility] Work Phone: Start: 10-02-2023 End: 10-02-2023 Emergency department patient visit Cris Pena Facility:[facility] Start: 10-02-2023 End: 10-02-2023 Emergency department patient visit [facility] Work Phone: Start: 09-14-2023 End: 09-15-2023 Emergency department patient visit Cris Pena Facility:[facility] Start: 09-14-2023 End: 09-14-2023 Emergency department patient visit SUPERVISOR [employer] ASSEMBLYApoorva Pena Work Phone: [facility] Work Phone: Start: 09-10-2023 End: 09-10-2023 Emergency department patient visit Derrell Orantes [place] [place]: 09-10-2023 ambulatory Claudio Castaneda acility:[facility] Start: 09-09-2023 End: 09-09-2023 Emergency department patient visit Cris Pena Facility:[facility] Start: 09-09-2023 End: 09-09-2023 Emergency department patient visit [facility] Work Phone: Start: 08-27-2023 ambulatory Ladi Koch MD Work Phone: Spine Medicine Comment on above: Refill Request; Refi ll Request Start: 08-27-2023 E-mail encounter fro m caregiver Ladi Koch MD Work Phone: [facility] Start: 08-27-2023 Telephone encounter Ladi bassett MD Work Phone: Spine Medicine Comment on above: Appointment Start: 08-19-2023 ambulatory Cris PENA Facility :[facility] Start: 08-15-2023 End: 08-15-2023 Emergency department patient [facility] [place] Start: 08-14-2023 End: 08-14-2023 Emergency department patient visit Christian Chucky [place] Start: 08-13-2023 End: 08-13-2023 Emergency department patient visit Derrell Orantes [place] Start: 08-07-2023 End: 08-07-2023 Emergency department patient visit Norma Dietz [place] Start: 08-04-2023 ambulatory Cris PENA Facility :[facility] Start: 07-17-2023 Refill Ladi Koch MD Work Phone: Pain Management Comment on above: Refill Request Start: 07-07-2023 Telephone encounter Lara Salinas RN [facility] Start: 07-07-2023 End: 07-08-2023 ambulatory Jacqueline Marquez Facility:[facility] Start: 07-03-2023 End: 07-13-2023 Evaluation and management of inpatient Bobo Cornelius Facility:[facility] Start: 07-02-2023 End: 07-13-2023 Evaluation and management of inpatient [facility] Work Phone: Start: 07-02-2023 Registered Recurring RUIZ Pena Work Phone: [facility] Start: 07-01-2023 End: 07-02-2023 ambulatory Zahraa Connors Facility:[facility] Start: 06-17-2023 Telephone encounter Ladi bassett MD Work Phone: Pain Management Comment on above: Medication Problem Start: 06-09-2023 Refill Chuck Galindo MD Work Phone: [facility] [place] Comment on above: Refill Request Start: 06-08-2023 End: 06-08-2023 Emergency department patient visit Luis Armando Hendrix Facility:[facility] Start: 06-08-2023 End: 06-08-2023 Emergency department patient visit [facility] Work Phone: Start: 06-06-2023 End: 06-06-2023 Emergency department patient visit GHASSAN GONZALES [facility] Start: 05-22-2023 Refill Mireille Cheatham [employer].PRIMARY HEALTH ORGANISATION MANAGER Work Phone: [facility] [place] Comment on above: Refill Request Start: 05-14-2023 Telephone encounter Rosa (Mold Sheet Cleaner) Madeline russo LPN [facility] [place] Comment on above: Patient Update Start: 05-14-2023 End: 05-14-2023 ambulatory MIREILLE CHEATHAM Facility:[facility] Start: 04-24-2023 Telephone encounter Mireille Cheatham APRN.PRIMARY HEALTH ORGANISATION MANAGER Work Phone: [facility] [place] Comment on above: Medication Request Start: 04-22-2023 Telephone encounter Fernanda ENCARNACION Work Phone: Psychology Comment on above: BH consult Start: 04-19-2023 End: 04-19-2023 Emergency department patient visit Eriberto Sheppard Facility:[facility] Start: 04-19-2023 End: 04-19-2023 Emergency department patient visit RUIZ Pena Work Phone: [facility] Work Phone: Start: 04-18-2023 End: 04-19-2023 Emergency department patient visit NON STAFF Facility:[facility] Start: 04-18-2023 End: 04-18-2023 Emergency department patient visit SUPER[employer] Cris Pena Work Phone: [facility] Work Phone: Start: 04-16-2023 End: 04-16-2023 Nurse Triage Verónica Martínez RN NURSE BALL HOLDER Comment on above: Refill Request Thank you Attention deficit hy peractivity disorder (ADHD), unspecified ADHD type (Primary Dx); Paranoid schizophrenia (HCC); Bipolar depression (HCC); History of heroin abuse (HCC) Start: 04-13-2023 End: 04-13-2023 ambulatory Chuck Galindo MD Work Phone: [facility] [place] Comment on above: Anxiety (Primary Dx) Start: 04-13-2023 End: 04-13-2023 Telemedicine consultation with patient Chuck Galindo MD Work Phone: [facility] Start: 04-02-2023 End: 04-03-2023 ambulatory NANCY RODRIGUEZ Facility:[facility] Start: 03-16-2023 End: 03-16-2023 ambulatory MIREILLE CHEATHAM Facility:[facility] Start: 03-16-2023 End: 03-16-2023 Patient encounter procedure Mireille Cheatham APRN.CNP Work Phone: [facility] Comment on above: Wellness examination (Primary Dx); Screening for diabetes mellitus; Screening for lipid disorders; Screening for cervical cancer; History of abnormal cervical Pap smear; History of heroin abuse (HCC); Attention deficit hyperactivity disorder (ADHD), unspecified ADHD type; Bipolar depression (HCC); Paranoid schizophrenia (HCC); Chronic midline low back pain without sciatica Start: 03-16-2023 End: 03-16-2023 Patient encounter status Mireille Cheatham APRN.CNP Work Phone: [facility] Start: 03-08-2023 End: 03-08-2023 Emergency department patient visit Heather Valenzuela [place] Start: 02-24-2023 End: 02-24-2023 Emergency department patient visit Cris Pena Facility:[facility] Start: 02-24-2023 End: 02-24-2023 Emergency department patient visit RUIZ Pena Work Phone: [facility] Work Phone: Start: 02-05-2023 ambulatory Crsi PENA Facility :[facility] Start: 02-03-2023 End: 02-03-2023 Emergency department patient visit Cris Pena Facility:[facility] Start: 02-03-2023 End: 02-03-2023 Emergency department patient visit RUIZ Cris Jean Work Phone: [facility] Work Phone: Start: 01-26-2023 End: 01-27-2023 Emergency department patient visit Farhad Landon Facility:[facility] Start: 01-26-2023 End: 01-26-2023 Emergency department patient visit DO Rachael Reyes Work Phone: [facility] Work Phone: Start: 01-19-2023 End: 02-06-2023 ambulatory Cris MANJITRONALDO Facility:CD:[id number] 5 Start: 01-12-2023 End: 01-16-2023 Evaluation and management of inpatient Bobobambi Shields Facility:[facility] Start: 01-12-2023 End: 01-16-2023 Evaluation and management of inpatient DO Rachael Reyes Work Phone: [facility] [place] [address] Work Phone: Start: 01-12-2023 End: 01-12-2023 Emergency department patient visit Norma Dietz [place] Start: 01-12-2023 End: 01-12-[address] DOCTOR PATEL Facility:[facility] Start: 01-08-2023 End: 01-08-2023 Emergency department patient visit Derrell Orantes [place] Start: 01-08-2023 End: 01-08-[address] DOCTOR PATEL Facility:[facility] Start: 01-07-2023 ambulatory Cris PENA Facility :[facility] Start: 12-15-2022 End: 12-16-[address] DOCTOR PATEL Facility:[facility] Start: 12-04-2022 ambulatory Cris PENA Facility :[facility] Start: 12-02-2022 End: 12-03-2022 ambulatory Cris PENA Facility:[facility] Start: 11-20-2022 End: 11-20-2022 Emergency department patient visit Nito Walton Facility:[facility] Start: 11-20-2022 End: 11-20-2022 Emergency department patient visit DO Rachael Reyes Work Phone: [facility] Work Phone: Start: 11-20-2022 End: 11-20-2022 Emergency department patient visit Cris Pena Facility:[facility] Start: 11-20-2022 End: 11-20-2022 Emergency department patient visit DO Rachael Reyes Work Phone: [facility] Work Phone: Start: 11-09-2022 End: 11-10-2022 Emergency department patient visit Christian Locke [facility] Start: 11-06-2022 End: 11-06-2022 Patient encounter procedure Cris PENA [facility] Start: 10-10-2022 End: 10-10-2022 Patient encounter procedure Cris PENA [facility] Start: 10-02-2022 End: 10-02-2022 Patient encounter procedure NANCY RODRIGUEZ [facility] Start: 08-08-2022 End: 08-09-2022 Emergency department patient visit DO Rachael Reyes Work Phone: [facility] Start: 06-22-2022 End: 06-23-[address] STACI HENDRIX Facility:[facility] Start: 06-16-2022 End: 06-17-[address] STACI HENDRIX Facility:[facility] Start: 04-24-2022 End: 04-25-2022 Emergency department patient visit Luis Armando Franz [facility] Start: 04-11-2022 End: 04-12-[address] SULTANA DOOLEY Facility:[facility] Start: 02-05-2021 End: 02-11-2021 Evaluation and management of inpatient ADDIE THORPE [facility] Start: 07-27-2020 Telephone encounter Adam chaudhary Work Phone: [facility] Comment on above: Results (abnormal pa p needs colposcopy appt) Start: 07-26-2020 Telephone encounter Jaylyn richards Work Phone: [facility] Comment on above: Other (scheduled col poscopy appointment ) Start: 07-18-2020 Patient encounter procedure [place] Start: 07-18-2020 End: 07-31-2020 Evaluation and management of inpatient CAROLCHAPITO MOSES [facility] Start: 07-17-2020 Patient encounter procedure [facility]Z Admitting Start: 05-14-2019 End: 05-14-2019 Emergency department patient visit [facility] Start: 05-08-2019 Emergency department patient visit [facility] Procedures Date Procedure Procedure Detail Performing Clinician Start: 10-16-2023 Aerobic microbial culture SUPERVISOR F[employer]ERGL[employer]AT ASSEMBLY Cris Pnea Work Phone: Start: 10-16-2023 Investigation of transfusion reaction SUPERVISOR [employer] ASSEMBLY Cris Robuck Work Phone: Start: 10-15-2023 Plain chest X-ray SUPERVISOR [employer]SEMBLY Cris Robuck Work Phone: Start: 10-08-2023 Urine culture SUPERVISOR F[employer]ER[employer] ASSEMBLY San y Robuck Work Phone: Start: 06-08-2023 Urine culture Start: 02-03-2023 Urine culture SUPERVISOR [employer]SEMBL[employer] San y Robuck Work Phone: Start: 01-12-2023 Urine culture DO Desmond Reyes Work Phone: Start: 07-31-2020 DISCHARGE PATIENT CAROL MOSES Start: 07-24-2020 Iadna human papillom avirus types 16 & 18 only CAROL MOSES Start: 07-24-2020 Cytp cervical/vagina l req interp physician CAROL MOSES Start: 07-24-2020 Cytp cervical/vagina l req interp physician Jaylyn Russo Rocio Work Phone: Start: 07-24-2020 Iadna jose ramon specie s direct probe tq CAROL MOSES Start: 07-24-2020 Cytopath fl nongyn, sm/fltr CAROL MOSES Start: 07-24-2020 Iadna jose ramon specie s direct probe tq Jaylyn Russo Rocio Work Phone: Start: 07-23-2020 NURSING COMMUNICATION E STELLA MOSES Start: 07-23-2020 Us transvaginal CAROL TURNER VALLE Start: 07-23-2020 Urine test visual color cmprsn meths CAROL MOSES Start: 07-23-2020 Blood count complete auto&auto difrntl wbc CAROL MOSES Start: 07-23-2020 Us pelvic nonobstetr ic real-time image complete Verónica London Work Phone: Start: 07-23-2020 Us transvaginal Verónica London Work Phone: Start: 07-23-2020 Urine test visual color cmprsn meths Krystal Jackeline Newman Work Phone: Start: 07-23-2020 Blood count complete auto&auto difrntl wbc Hussein Eric Work Phone: Start: 07-23-2020 IP CONSULT TO SUPERVISOR FURNACE PROCESS ER IC MOSES Start: 07-22-2020 IP CONSULT TO [facility] CAROL JORGE Start: 07-21-2020 Drug assay valproic dipropylacetic acid [...] Assay of thyroid stimulating hormone tsh Addie Cloutapoorvanavid Work Phone: Start: 07-20-2020 Blood count complete auto&auto difrntl wbc Addie Thorpe Work Phone: Start: 07-20-2020 Comprehensive metabo lic panel Addie CloutapoorvadeviantART Work Phone: Start: 07-20-2020 Antibody hiv-1&hiv-2 single result CAROL MOSES Start: 07-20-2020 Antibody hiv-1&hiv-2 single result Raúl S Teagan Work Phone: Start: 07-20-2020 Hepatitis c antibody Ra nvir S Teagan Work Phone: Start: 07-19-2020 IP CONSULT TO [facility] CAROL MOSES Start: 07-18-2020 IP [...] Start: 10-12-2011 teeth extraction Luis Armando catherine denrashaun Franz SARS Antigen (LFIA) DO Kavitha Reyes Work Phone: Plan of Treatment Date Care Activity Detail Author Start: 07-22-2028 DTaP/Tdap/Td vaccine (3 - Td) DTaP/Tdap/Td vaccine (3 - Td) [place] Start: 07-22-2028 Urine microalbumin profile [facility] Start: 04-16-2024 ANNUAL PCP TEAM DATABASE DEVELOPER BENNY DISEASE VISIT ANNUAL PCP TEAM CHRONIC DISEASE VISIT [facility] Start: 04-13-2024 ANNUAL PCP TEAM DATABASE DEVELOPER BENNY DISEASE VISIT ANNUAL PCP TEAM CHRONIC DISEASE VISIT [facility] Start: 03-16-2024 ANNUAL PCP TEAM DATABASE DEVELOPER BENNY DISEASE VISIT ANNUAL PCP TEAM CHRONIC DISEASE VISIT [facility] Start: 10-21-2023 [facility] Start: 10-09-2023 [facility] Start: 10-09-2023 Hospital admission [facility] Start: 10-09-2023 [facility] Start: 10-08-2023 Bacteria identified in Urine by Culture [facility] Start: 09-14-2023 [facility] Start: 07-24-2023 Screening for malign ant neoplasm of cervix Cervical cancer screen [place] Start: 07-13-2023 [facility] Start: 07-02-2023 Hospital admission [facility] Start: 06-12-2023 Influenza vaccination C [facility] Start: 06-08-2023 Bacteria identified in Urine by Culture Urine Culture [facility] Start: 03-16-2023 End: 05-16-2023 Comprehensive metabolic 2000 panel - Serum or Plasma COMP METABOLIC PANEL Lab Routine Screening for diabetes mellitus Expected: 03/16/2023, Expires: 05/16/2023 [facility] Work Phone: Comment on above: Expected: 03/16/2023 , Expires: 05/16/2023 Start: 03-16-2023 End: 05-16-2023 Hemoglobin A1c in Blood HGB A1C Lab Routine Screening for diabetes mellitus Expected: 03/16/2023, Expires: 05/16/2023 [facility] Work Phone: Comment on above: Expected: 03/16/2023 , Expires: 05/16/2023 Start: 03-16-2023 End: 05-16-2023 Lipid 1996 panel - Serum or Plasma LIPID PANEL BASIC Lab Routine Screening for lipid disorders Expected: 03/16/2023, Expires: 05/16/2023 [facility] Work Phone: Comment on above: Expected: 03/16/2023 , Expires: 05/16/2023 Start: 01-16-2023 [facility] Start: 01-12-2023 Bacteria identified in Urine by Culture Urine Culture [facility] Start: 01-12-2023 Hospital admission [facility] Start: 11-20-2022 [facility] Start: 08-08-2022 Plain chest X-ray XR chest 2V* [facility] Start: 08-08-2022 XR Chest 2 Views [facility] Start: 06-12-2020 Influenza vaccination Flu vaccine (# 1) [place] Start: 07-15-2019 HEPATITIS A (2 of 2 - Risk 2-dose series) HEPATITIS A (2 of 2 - Risk 2-dose series) [facility] Start: 07-15-2019 Hepatitis A Vaccine (2 of 2 - Risk 2-dose series) Hepatitis A Vaccine (2 of 2 - Risk 2-dose series) [facility] Start: 2015 HPV TESTING HPV TESTING [facility] Start: 12-26-2014 PNEUMOCOCCAL (2 - PCV) PNEUMOCOCCAL (2 - PCV) [facility] Start: 12-26-2014 Pneumococcal vaccination Pneum ococcal Vaccine (2 - PCV) [facility] Start: 2006 PAP TESTING PAP TESTING [facility] Start: 2003 SPIROMETRY SPIROMETRY [facility] Start: 07-07-1997 HEPATITIS B (2 of 3 - 3-dose series) HEPATITIS B (2 of 3 - 3-dose series) [facility] Start: 07-07-1997 Hepatitis B vaccine (2 of 3 - 3-dose primary series) Hepatitis B vaccine (2 of 3 - 3-dose primary series) [place] Start: 07-07-1997 Hepatitis B Vaccine (2 of 3 - 3-dose series) Hepatitis B Vaccine (2 of 3 - 3-dose series) [facility] Start: 1991 Pneumococcal 0-64 ye ars Vaccine (1 of 1 - PPSV23) Pneumococcal 0-64 years Vaccine (1 of 1 - PPSV23) [place] Start: 1986 Varicella vaccine (1 of 2 - 2-dose childhood series) Varicella vaccine (1 of 2 - 2-dose childhood series) [place] Start: 1985 COVID-19 VACCINE (#1) COVID-19 VACCI NE (#1) [facility] Albumin/Globulin ratio [facility] Anion gap measurement [facility] Basophils [#/volume] in Blood by Automated count [facility] Basophils/100 leukoc ytes in Blood by Automated count [facility] Calculated LDL cholesterol level [facility] Calculated LDL cholesterol level [facility] Cholesterol.total/Ch oles terol in HDL [Mass Ratio] in Serum or Plasma [facility] Cholesterol.total/Ch oles terol in HDL [Mass Ratio] in Serum or Plasma [facility] Eosinophils [#/volum e] in Blood [facility] Eosinophils/100 leukocytes in Blood by Automated count [facility] Erythrocyte distribu tion width [Ratio] by Automated count [facility] Erythrocytes [#/volu me] in Blood [facility] Ethanol [Mass/volume ] in Serum or Plasma [facility] Globulin [Mass/volum e] in Serum [facility] Hematocrit [Volume Fraction] of Blood [facility] Hemoglobin [Mass/vol ume] in Blood [facility] Leukocytes [#/volume ] corrected for nucleated erythrocytes in Blood by Automated coun [facility] Leukocytes [#/volume ] in Blood [facility] Lymphocytes [#/volum e] in Blood by Automated count [facility] Lymphocytes/100 leukocytes in Blood by Automated count [facility] MCH [Entitic mass] b y Automated count [facility] MCHC [Mass/volume] b y Automated count [facility] MCV [Entitic volume] by Automated count [facility] Monocytes [#/volume] in Blood by Automated count [facility] Monocytes/100 leukoc ytes in Blood by Automated count [facility] Neutrophils [#/volum e] in Blood by Automated count [facility] Neutrophils/100 leukocytes in Blood by Automated count [facility] Nucleated erythrocyt es [Presence] in Blood by Automated count [facility] Patient Education [facility] Work Phone: Patient referral [facility] Work Phone: Platelet mean volume [Entitic volume] in Blood by Automated count [facility] Platelets [#/volume] in Blood [facility] VLDL cholesterol measurement [facility] VLDL cholesterol measurement [facility] Immunizations Immunization Date Immunization Notes Care Provider Sameera duncan 11-08-2019 Influenza, injectabl e, Madin Callahan Canine Kidney, preservative free, quadrivalent DO Rachael Reyes Work Phone: [facility] 11-08-2019 influenza virus vacc ine, unspecified formulation Mireille Cheatham APRN.PRIMARY HEALTH ORGANISATION MANAGER Work Phone: [facility] 01-13-2019 hepatitis A vaccine, adult dosage Mireille Cheatham APRN.PRIMARY HEALTH ORGANISATION MANAGER Work Phone: [facility] Work Phone: 07-22-2018 tetanus toxoid, redu juan alberto diphtheria toxoid, and acellular pertussis vaccine, adsorbed Luis Armando Franz [facility] Comment on above: Reason for Medicatio n: Other (see comment) 09-26-2016 influenza, injectabl e, quadrivalent, preservative free Mireille Cheatham APRN.PRIMARY HEALTH ORGANISATION MANAGER Work Phone: [facility] Work Phone: 09-26-2016 RHO(D) immune globul in- IV or IM Mireille Cheatham APRN.PRIMARY HEALTH ORGANISATION MANAGER Work Phone: [facility] Work Phone: 09-26-2016 tetanus toxoid, redu juan alberto diphtheria toxoid, and acellular pertussis vaccine, adsorbed Mireille Cheatham APRN.PRIMARY HEALTH ORGANISATION MANAGER Work Phone: [facility] Work Phone: 12-26-2013 influenza, seasonal, injectable Luis Armando Franz [facility] 12-26-2013 pneumococcal polysaccharide vaccine, 23 valent Luis Armando Franz [facility] 07-26-2012 tetanus toxoid, redu juan alberto diphtheria toxoid, and acellular pertussis vaccine, adsorbed Luis Armando Franz [facility] Comment on above: Reason for Medicatio n: Other (see comment) 10-18-2011 pneumococcal polysaccharide vaccine, 23 valent Luis Armando Franz [facility] Comment on above: Early/Late Reason: A ccommodate D/C 10-18-2011 influenza, seasonal, injectable Luis Armando Franz [facility] Comment on above: Early/Late Reason: A ccommodate D/C 2010 novel influenza-H1N1 -09, preservative-free, injectable Mireille Cheatham APRN.PRIMARY HEALTH ORGANISATION MANAGER Work Phone: [facility] Work Phone: 06-09-1997 hepatitis B vaccine, pediatric or pediatric/adolescent dosage Mireille Cheatham APRN.PRIMARY HEALTH ORGANISATION MANAGER Work Phone: [facility] Work Phone: 06-09-1997 measles, mumps and rubella virus vaccine Mireille Cheatham APRN.PRIMARY HEALTH ORGANISATION MANAGER Work Phone: [facility] Work Phone: 06-09-1997 hepatitis B vaccine, unspecified formulation Mireille Cheatham APRN.PRIMARY HEALTH ORGANISATION MANAGER Work Phone: [facility] Payers Date Payer Category Payer Self-pay [id number] 2022 Medicaid [employer] [employer] [employer] [id number] 2022-Present [phone] [address] [place] [address] Medicaid [id number] 1985 Unknown [id number] 2.16.840.1.721426.3.579.2.173 1985 Unknown [id number] 2.16.840.1.645089.3.579.2.173 1985 Unknown [id number] 2.16.840.1.344734.3.579.2.176 1985 Unknown [id number] 2.16.840.1.530619.3.579.2.176 1985 Unknown [id number] 2.16.840.1.651254.3.579.2.593 1985 Unknown [id number] 2.16.840.1.002192.3.579.2.593 1985 Unknown [id number] 2.16.840.1.267050.3.579.2.593 1985 Unknown [id number] 2.16.840.1.832606.3.579.2.593 1985 Unknown [id number] 2.16.840.1.231291.3.579.2.593 1985 Unknown [id number] 2.16.840.1.287666.3.579.2.593 1985 Unknown [id number] 2.16.840.1.002538.3.579.2.902 1985 Unknown [id number] 2.16.840.1.105677.3.579.2 1985 Unknown [id number] 2.16.840.1.032164.3.579.2 1985 Unknown [id number] 2.840.1.456240.3.579.2 1985 Unknown [id number] 2.16.840.1.823629.3.579.2 1985 Unknown [id number] 2.840.1.423985.3.579.2 1985 Unknown [id number] 2.840.1.658229.3.579.2 1985 Unknown [id number] 2.840.1.607947.3.579.2 1985 Unknown [id number] 2.840.1.943058.3.579.2 1985 Unknown [id number] 2.840.1.694547.3.579.2 1985 Unknown [id number] 2.840.1.526304.3.579.2 1985 Unknown [id number] 2.840.1.542548.3.579.2 1985 Unknown [id number] 2.16840.1.505997.3.579.2 1985 Unknown [id number] 2.16840.1.893000.3.579.2 1985 Unknown [id number] 2.16840.1.133009.3.579.2 1985 Unknown [id number] 2.840.1.600942.3.579.2 1985 Unknown [id number] 2.16.840.1.928797.3.579.2.727 1985 Unknown [id number] 2.16.840.1.516916.3.579.2.727 1985 Unknown [id number] 2.16.840.1.804487.3.579.2.727 1985 Unknown [id number] 2.16.840.1.465922.3.579.2.727 1959 Unknown [id number] Unknown [id number] 2.16.840.1.078545.3.579.2.531 Unknown [id number] 2.16.840.1.591556.3.579.2.531 Unknown [id number] 2.16.840.1.204815.3.579.2.531 Unknown [id number] 2.16.840.1.606105.3.579.2.531 Unknown [id number] 2.16.840.1.905184.3.579.2.531 Unknown [id number] 2.16.840.1.991491.3.579.2.531 Unknown [id number] 2.16.840.1.684762.3.579.2.531 Unknown [id number] 2.16.840.1.090608.3.579.2.531 Unknown [id number] 2.16.840.1.686665.3.579.2.531 Unknown [id number] 2.16.840.1.503071.3.579.2.531 Unknown [id number] 2.16.840.1.810005.3.579.2.531 Unknown [id number] 2.16.840.1.819924.3.579.2.531 Unknown [id number] 2.16.840.1.568318.3.579.2.531 Unknown [id number] 2.16.840.1.618319.3.579.2.531 Unknown [id number] 2.16.840.1.932215.3.579.2.531 Social History Date Type Detail Facility Start: 07-23-2020 End: 03-16-2023 Tobacco smoking status NHIS Current every day smoker [facility] History of tobacco use Cigarette Smoker [place] Start: 07-23-2020 End: 03-16-2023 Cigarettes smoked current (pack per day) - Reported [facility] Work Phone: Start: 07-23-2020 Tobacco use and exposure Never used [place] Start: 07-23-2020 End: 04-24-2023 Alcohol intake Current non-drinker of alcohol (finding) [place] Start: 06-15-2015 Alcohol Comment unsure [facility] [place] Start: 1985 Sex Assigned At Not on file [place], [place] Exposure to SARS-CoV -2 (event) Not sure [place] Start: 11-01-2021 End: 10-10-2022 Tobacco smoking status Light tobacco smoker (finding) [facility] Start: 08-08-2022 End: 10-15-2023 Tobacco smoking status Smoker (finding) [facility] Tobacco smoking status Never [facility] Start: 03-16-2023 End: 04-16-2023 Sex Assigned At Female [facility] Start: 1985 Sex Assigned At Female F [facility] Tobacco [facility] Comment on above: denies Tobacco smoking status No Smokin g Status Entered [facility] Goals Date Patient Goal Desired Activity /State Functional Status Date Assessment Result Facility 10-21-2023 Functional status Patient at Baseline [facility] Work Phone: 07-13-2023 Functional status Patient at Baseline [facility] Work Phone: 01-16-2023 Functional status Patient at Baseline [facility] Work Phone: 11-09-2022 Functional Status N/A [facility] 11-06-2022 Functional Status N/A [facility] 10-10-2022 Functional Status N/A [facility] 10-02-2022 Functional Status N/A [facility] 04-24-2022 Functional Status N/A [facility] Mental Status Date Assessment Result Facility 10-21-2023 Cognitive function Cognitive Sta tus Patient at Baseline [facility] Work Phone: 07-13-2023 Cognitive function Cognitive Sta tus Patient at Baseline [facility] Work Phone: 01-16-2023 Cognitive function Cognitive Sta tus Patient at Baseline [facility] Work Phone: Clinical Notes 04-24-2022 to 10-25-2023 Note Date & Type Note Facility 10-25-2023 Note [id number] [facility] 10-21-2023 Discharge summary Note Date/Time October 21, 2023 11:45am [facility] EN[facility] [address] [place] [address] Discharge Summary Signed Patient: Lorna Deutsch MR#: [id number] : 1985 Acct:[id number] Age/Sex: 38 / F Adm Date: 3 Loc: Room: [address] [place] [address]: Bobo Shields MD Copies to: MD Cris Murcia APRN, PRIMARY HEALTH ORGANISATION MANAGER~ Providers Date of Discharge: 10/21/23 Discharging Provider: [...] No activity restrictions Instructions: Bipolar Disorder (DC), [facility] [place] Instructions Prescriptions: New ergocalciferol [...] BY MOUTH TWICE A DAY -START ON [id number] dextroamphetamine-amphetamine 20 mg tablet 20 mg PO DAILY Patient Comments: TAKE ONE TABLET BY MOUTH TWICE A DAY -START ON quetiapine 150 mg tablet 150 mg PO HS Patient Comments: TAKE ONE TABLET BY MOUTH ONCE DAILY AT BEDTIME Follow Up: [facility] [place] [Other] (Follow facility protocol for mental health needs. ) Cris Pena APRN, TRANSIT WORKER-C [Primary Care Provider] - (Contact your PCP with any medical needs. ) Documented By: Bobo Shields MD 10/21/23 1142 Signed By: <Electronically signed by Bobo Shields MD> 10/21/23 1148 [facility] Work Phone: 1(552) 667-266401-09-2024 Progress note Author Bobo Shields [facility] October 20, 2023 1:54pm Note Date/Time October 20, 2023 1: 54pm [facility] [address] [place] [address] Psychiatry Progress Note Signed Patient: Lorna Deutsch MR#: [id number] : 1985 Acct:[id number] Age/Sex: 38 / F Adm Date: 3 Loc: Room: [address] [place] [address] Type : ADM IN Attending Dr: Bobo [...] explained Documented By: Bobo Shields MD 10/20/23 1353 Signed By: <Electronically signed by Bobo Shields MD> 10/20/23 1757 [facility] Work Phone: 1(872) 129-907201-08-2024 Consult note Author Virgilio Lynne [facility] October 19, 2023 3:20pm Note Date/Time October 15, 2023 5: 06pm [facility] [address] [place] [address] Hospitalist Consult Note Signed Patient: Lorna Deutsch MR#: [id number] : 1985 Acct:[id number] Age/Sex: 38 / F Adm Date: 3 Loc: Room: [address] [place] [address] Type: ADM IN Attending Dr: Bobo Shields [...] Capsule PO 10/19/23 08:59 500 mg QID ANPUAMA Administration Doxycycline Hyclate 100 mg 10/09/23 09:30 [...] HS ANUPAMA Administration Sodium Chloride 0 ml 10/08/23 20:56 Sodium Chloride 0.9 % 10 Ml [...] counseling Documented By: Darlin Abdi APRN 02/02 1706 Signed By: <Electronically signed by RUIZ Abdi> 10/15/23 1803 <Electronically signed by Virgilio Lynne MD> 10/19/23 7633 [facility] Work Phone: 1(556) 114-437701-08-2024 Progress note Author Bobo Shields [facility] October 19, 2023 12:37pm Note Date/Time October 19, 2023 12 :36pm [facility] ENTER [address] [place] [address] Psychiatry Progress Note Signed Patient: Lorna Deutsch MR#: [id number] : 1985 Acct:[id number] Age/Sex: 38 / F Adm Date: 3 Loc: Room: [address] [place] [address] Type : ADM IN Attending Dr: Bobo [...] signed by Bobo Shields MD> 10/19/23 1237 [facility] Work Phone: 1(846) 970-364501-07-2024 Progress note Author Claudio case [facility] October 18, 2023 7:13am Note Date/Time October 18, 2023 7: 11am [facility] ENTER [address] [place] [address] Psychiatry Progress Note Signed Patient: Lorna Deutsch MR#: [id number] : 1985 Acct:[id number] Age/Sex: 38 / F Adm Date: 3 Loc: Room: [address] [place] [address] Type : ADM IN Attending Dr: Bobo [...] explained Documented By: Claudio Dee MD 4 0711 Signed By: <Electronically signed by Claudio Dee MD> 10/18/23 0770 [facility] Work Phone: 1(448) 907-607501-05-2024 Progress note Author Claudio case [facility] October 16, 2023 7:43am Note Date/Time October 16, 2023 7: 43am [facility] ENTER [address] [place] [address] Psychiatry Progress Note Signed Patient: Lorna Deutsch MR#: [id number] : 1985 Acct:[id number] Age/Sex: 38 / F Adm Date: 3 Loc: 1S Room: 9V8919-7 Type : ADM IN Attending Dr: Bobo Shields MD Copies to: ~ Date of Service: 10/16/2023 Subjective Subjective Narrative: Ms. Deutsch reported that she is depressed and wants to speak to a counselor. Sheclaims that she is going through Klonopin withdrawal. No objective signs. She continues to endorse SI. She was accepted to [facility] but does not wantto go now. [...] explained Documented By: Claudio Dee MD 4 0732 Signed By: <Electronically signed by Claudio Dee MD> 10/16/23 0743 [facility] Work Phone: 1(463) 333-549801-04-2024 Progress note Author Claudio case [facility] October 15, 2023 9:39am Note Date/Time October 15, 2023 9: 39am [facility] ENTER [address] [place] [address] Psychiatry Progress Note Signed Patient: Lorna Deutsch MR#: [id number] : 1985 Acct:[id number] Age/Sex: 38 / F Adm Date: 3 Loc: 1S Room: [address] [place] [address] Type : ADM IN Attending Dr: Bobo [...] signed by Claudio Dee MD> 10/15/23 0939 [facility] Work Phone: 1(962) 656-436001-03-2024 Progress note Author Claudio case [facility] October 14, 2023 6:36am Note Date/Time October 14, 2023 6: 36am [facility] ENTER [address] [place] [address] Psychiatry Progress Note Signed Patient: Lorna Deutsch MR#: [id number] : 1985 Acct:[id number] Age/Sex: 38 / F Adm Date: 3 Loc: 1S Room: [address] [place] [address] Type : ADM IN Attending Dr: Bobo [...] signed by Claudio Dee MD> 10/14/23 0636 [facility] Work Phone: 1(105) 761-632601-02-2024 Progress note Author Claudio case [facility] October 13, 2023 7:39am Note Date/Time October 13, 2023 7: 39am [facility] ENTER [address] [place] [address] Psychiatry Progress Note Signed Patient: Lorna Deutsch MR#: [id number] : 1985 Acct:[id number] Age/Sex: 38 / F Adm Date: 3 Loc: Room: [address] [place] [address] Type : ADM IN Attending Dr: Bobo [...] Room Air 10/12/23 20:05 10/12/23 20:05 10/12/23 20:10/12/23 20:10/12/23 20:05 10/12/23 20:05 Abnormal Involuntary Movement Dental [...] explained Documented By: Claudio Dee MD 4 5017 Signed By: <Electronically signed by Claudio Dee MD> 10/13/23 8020 [facility] Work Phone: 1(255) 818-692901-01-2024 Progress note Author Claudio case [facility] October 12, 2023 7:26am Note Date/Time October 12, 2023 7: 26am [facility] ENTER [address] [place] [address] Psychiatry Progress Note Signed Patient: Lorna Deutsch MR#: [id number] : 1985 Acct:[id number] Age/Sex: 38 / F Adm Date: 3 Loc: Room: [address] [place] [address] Type : ADM IN Attending Dr: Bobo [...] explained Documented By: Claudio Dee MD 4 0792 Signed By: <Electronically signed by Claudio Dee MD> 10/12/23 0726 [facility] Work Phone: 1(751) 324-422312-31-2023 Progress note Author Bboo Shields [facility] October 11, 2023 11:07am Note Date/Time October 11, 2023 11:07am [facility] ENTER [address] [place] [address] Psychiatry Progress Note Signed Patient: Lorna Deutsch MR#: [id number] : 1985 Acct:[id number] Age/Sex: 38 / F Adm Date: 3 Loc: Room: [address] [place] [address] Type : ADM IN Attending Dr: Bobo [...] By: <Electronically signed by Bobo Shields MD> 10/11/231106 [facility] Work Phone: 1(632) 909-408412-30-2023 Progress note Author Bobo Shields [facility] October 10, 2023 11:30am Note Date/Time October 10, 2023 11:30am [facility] ENTER [address] [place] [address] Psychiatry Progress Note Signed Patient: Lorna Deutsch MR#: [id number] : 1985 Acct:[id number] Age/Sex: 38 / F Adm Date: 3 Loc: Room: [address] [place] [address] Type : ADM IN Attending Dr: Bobo [...] signed by Bobo Shields MD> 10/10/23 1130 [facility] Work Phone: 1(974) 267-835412-29-2023 Note [id number] [facility] 10-09-2023 History and physical note Author Bobo Shields [facility] October 09, 2023 12:43pm Note Date/Time October 09, 2023 12:37pm [facility] ENTER [address] [place] [address] Psychiatry H&P Signed Patient: Lorna Deutsch MR#: [id number] : 1985 Acct:[id number] Age/Sex: 38 / F Adm Date: 3 Loc: 1S Room: [id number] Type: ADM IN Attending Dr: Bobo Shields MD Copies to: MD Cris Murcia APRN, CNP~ Date of Service: 10/09/2023 HPI History of [...] denied current suicidality Insight: fair Judgment: fair [facility] Medical History (Updated 10/09/23 @ 00:50 by [...] Turbid A Urine pH 5.5 Ur Specific [place] 1.036 H Urine Protein 100 H Urine [...] Color Urine Appearance Urine pH Ur Specific [place] Urine Protein Urine Glucose (UA) Urine Ketones [...] <Electronically signed by Bobo Shields MD> 10/09/23 1242 [facility] Work Phone: 1(242) 258-689811-17-2023 Miscellaneous Notes* Telephone Encounter - Ирина Jack [...] 30days. Nahum Jack MD Pain Medicine Fellow button sewer hand. 08/28/23 * Telephone Encounter - Philip Mathis [...] would be sent to [facility] [place]. Please advise patient with an update. [phone] ([place]) * Telephone Encounter - Brittany Pichardo - [...] notify patient. Brittany Pichardo documented in this encounterGreene [facility] Hospital11-16-2023 Miscellaneous Notes* Telephone Encounter - Marty Torrez OCCA - 08/27/2023 2:22 PM EST [...] Please advise. pregabalin (LYRICA) 100 mg capsule [address] [place] [address] - [address] [facility] [phone] [address] Patient [phone] (home) [phone] (cell) * Telephone Encounter - Philip Mathis RN - 08/27/2023 1:27 PM EST LVM for patient regarding Dr. Rodriguez's response to dog bite & pain medication. Philip Mathis RN August 27, 2023 1:27 PM * Telephone Encounter - Philip Mathis RN - 08/27/2023 11:48 AM EST Patient called & stated she recently gotten bit by a Pitbull & went to [place] [facility] and got antibiotics but they refused [...] 27, 2023 11:49 AM documented in this encounterGreene Memorial Hospital11-16-2023 Miscellaneous Notes* Telephone Encounter - Philip Mathis RN - 08/27/2023 11:26 AM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 wholesale stores, local fruit and vegetable [employer], and [employer] markets. Do not shop when you are [...] 06/01/2015 Document Revised: 09/29/2018 Document Reviewed: 09/29/2018 [employer] Patient Education 2020 [employer]. 10/02/2022 17:55:09 Tobacco Use Disorder Tobacco Use [...] reduces withdrawal symptoms. NRT is available as: ?Vzvh-mgg-bybazih gums, lozenges, and skin patches. ?Prescription mouth [...] recovery for many people. General instructions Take iwlk-ytl-cnpogxh and prescription medicines only as told by your health care provider. Check with your health care provider before taking any new prescription or jsbd-wmr-gedxfid medicines. Decide on a friend, family member, or smoking quit-line (such as 2-264-IESO-NOW in the [place] that you can call [...] 06/03/2005 Document Revised: 09/15/2018 Document Reviewed: 09/15/2018 [employer] Patient Education 2020 [employer]. 10/02/2022 17:55:05 Attention Deficit Hyperactivity Disorder, Adult [...] provider or a mental health home care companion. Your health care provider may use a [...] Behavioral management. You may work with a community living coach who is specially trained to help people with ADHD manage and organize activities and function more effectively. Follow these instructions at home: Medicines Take ekht-pot-qdionoh and prescription medicines only as told by [...] Attention Deficit Disorder Association (ADDA): www.add.org National [place] of Mental Health (NIMH): www.nimh.nih.gov Contact a [...] 05/20/2018 Document Revised: 02/20/2020 Document Reviewed: 02/20/2020 [employer] Patient Education 2020 [employer] 10/02/2022 17:55:03 Neuropathic Pain Neuropathic Pain [...] this treated? Treatment for neuropathic pain may manager exchange time. You may need to try different treatment options or a combination of treatments. Some options include: Treating the underlying cause of the neuropathy, such as diabetes, kidney disease, or vitamin deficiencies. Stopping medicines that can cause neuropathy, such as chemotherapy. Medicine to relieve pain. Medicines may include: ?Prescription or uwpa-ypz-zguemht pain medicine. ?Anti-seizure medicine. ?Antidepressant medicines. ?Pain-relieving [...] Follow these instructions at home: Medicines Take eebv-qxf-otdydon and prescription medicines only as told by [...] as fried or sweet foods. ?Take an snaw-jox-znhcuif or prescription medicine for constipation. Lifestyle Have [...] 06/25/2005 Document Revised: 01/19/2020 Document Reviewed: 10/15/2018 [employer] Patient Education 2019 [employer]. Follow Up Care 09/29/2022 11:32:44 With:NANCY RODRIGUEZ CNP Address: [address] [place] [address] When: Unknown [facility] 07-15-2022 Hospital Discharge instructions Patient Education 04/25/2022 [...] computer, cell phone, or tablet. Medicines Take bvbo-wov-redrhix and prescription medicines only as told by [...] be a hospital support group, a National [place] on Mental Illness (JUSTINA) support group, or [...] and Mental Health Services Administration (SAMHSA): ?Online: www.st. mary regional medical centerhsa.gov ?National Helpline, to talk with a person who can help you find information about treatment services in your area: (0-999-TJNYYU5) U.S. Department of Health and Human Services mental health services: www.mentalhealth.gov National [place] on Mental Illness (JUSTINA): www.justina.org National [place] on Alcoholism and Drug Dependence: www.ncadd.org Contact [...] 02/12/2018 Document Revised: 11/24/2019 Document Reviewed: 02/12/2018 [employer] Patient Education 2020 [employer]Exchange. 04/25/2022 02:56:28 Managing Schizophrenia Managing Schizophrenia If [...] eating. Follow these instructions at home: Take lfry-qtj-erbtaht and prescription medicines only as told by [...] be able to find financial assistance through nlb-qpz-sikjxq organizations or with local government-based resources. If [...] schizophrenia. Where to find more information National [place] on Mental Illness: www.justina.org Contact a health [...] 01/28/2018 Document Revised: 01/20/2020 Document Reviewed: 01/28/2018 [employer] Patient Education 2020 [employer]Exchange. Follow Up Care 04/24/2022 12:58:04 With:[facility] Address:Unknown When: Unknown Comments:Call the office today to arrange further detox options. With:NANCY RODRIGUEZ Address: [address] [place] [address] Business (1) When:Within 3 Day(s) [facility]07-14-2022 Evaluation + Plan noteExtracted from: Title:ED Note [...] day(s), # 14 cap(s), Refills(s) 0, Pharmacy: [id number], 165, cm, 04/24/22 13:10:00 EDT, Height/Length Dosing, 70.8, kg, 04/24/22 13:10:00 EDT, Weight Dosing lorazepam, 2 mg = 2 tab(s), Tab, Oral, Once, Stop date 04/24/22 14:20:00 EDT, STAT, Start date 04/24/22 14:20:00 EDT, 04/24/22 14:20:00 EDT Basic Metabolic Panel Creatine Kinase Drug Screen Urine ECG 12 Lead Adult eGFR Rapid COVID Antigen [place] Troponin 0 Hr. UA With Cult Reflex Urine Culture [facility] Future Appointments Appointment Date:04/02/2023 11:00:00 AM Scheduled Provider:NANCY RODRIGUEZ CNP Location:[facility] Appointment Type: Open Future Scheduled Tests Radiology* XR Knee Complete 4+ Views Left 10/02/22 * XR Elbow 3+ Views Left 10/02/22 * XR Spine Lumbosacral Minimum 4 Views 10/02/22 [facility] Evaluation + Plan note Future Appointments Appointment Date:02/05/2023 02:20:00 PM Scheduled Provider:Cris PENA CNP Location:[facility] Appointment Type: Open Appointment Date:04/02/2023 11:00:00 AM Scheduled Provider:NANCY RODRIGUEZ CNP Location:[facility] Appointment Type: Open Future Scheduled Tests Radiology* XR Knee Complete 4+ Views Left 10/02/22 * XR Elbow 3+ Views Left 10/02/22 * XR Spine Lumbosacral Minimum 4 Views 10/02/22 [facility] Evaluation noteNo assessment information available [facility] Work Phone: Evaluation note* Diagnosis Onset Date Resolution Status Bipolar 1 disorder, depressed acute Hypokalemia acute Opioid use disorder acute Suicidal ideation acute UTI (urinary tract infection) [facility] Work Phone: Evaluation note* Diagnosis Wellness examination- Primary Screening for [...] pain without sciatica [facility] Anxiety- Primary Anxiety state, unspecified [facility] Diagnosis Attention deficit hyperactivity disorder (ADHD), unspecified ADHD type- Primary Paranoid schizophrenia (HCC) Paranoid schizophrenia, unspecified condition Bipolar depression (HCC) Bipolar I disorder, most recent episode (or current) depressed, unspecified History of heroin abuse (HCC) Opioid abuse, in remission [facility] Diagnosis Paranoid schizophrenia (HCC) Paranoid [...] Date Resolution Status Bipolar disorder, unspecified acute [facility] Work Phone: Evaluation note* Diagnosis Myofascial pain syndrome Mylagia and myositis, unspecified [facility] Diagnosis Myofascial pain syndrome Mylagia and myositis, unspecified [facility] Diagnosis Onset Date Resolution Status Bipolar disorder, unspecified acute Bipolar disorder, now depressed acute Intentional overdose acute Methadone dependence [facility] Work Phone: Evaluation note* Diagnosis Onset Date Resolution Status Abscess of skin or subcutaneous tissue acute Bipolar 1 disorder, depressed acute Bipolar disorder, now depressed acute Intentional overdose acute Methadone dependence acute Sputum production acute Tobacco abuse acute Unspecified psychosis acute [facility] Work Phone: History and physical note Author Bobo Shields [facility] January 12, 2023 3:37pm Note Date/Time January 12, 2023 3:33 pm [facility] [address] [place] [address] Psychiatry H&P Signed Patient: Lorna Deutsch MR#: [id number] : 1985 Acct:[id number] Age/Sex: 38 / F Adm Date: 3 Loc: Room: [address] [place] [address] Type: ADM IN Attending Dr: Bobo Shields MD Copies to: MD Cris Murcia APRN, PRIMARY HEALTH ORGANISATION MANAGER~ Date of Service: 01/12/2023 HPI History of [...] homicidality, reported suicidality Insight: fair Judgment: fair [facility] Vaccinated for COVID-19?: No Medical History (Updated [...] Cloudy A Urine pH 6.0 Ur Specific [place] 1.020 Urine Protein Negative Urine Glucose (UA) [...] signed by Bobo Shields MD> 01/12/23 1537 [facility] Work Phone: Hoital course Narrative No data available for this section [facility] No data available for this section [facility] Additional Instructions Follow-up with your primary care doctor Return to the ED if you develop worsening symptoms or concernsTrihealth Work Phone: Hospital Discharge instructions Additional Instructions Regular diet No activity restrictionsTrihealth Work Phone: Hospital Discharge instructions Additional Instructions Important Contact Information You can call [facility] at [phone] any time day or night if you have emergent questions or question regarding discharge instructions. If at any time you are feeling an increase in your psychiatric symptoms, call your physician or behavioral healthcare provider. If any time you have thoughts of harming yourself or others contact one of the following: Call (available 04/05) Crisis Text Line (available 04/05) text 4HOPE to [phone] [facility] Hope Line (available 8 a.m. 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 ACP-Advance Directive ACP-Advance Directive 07/04/2014 2:14 PM ACP-Power of Fisheries Biologist Latest Code Status on File Code Status [...] Duong withdrawl,MHP anxiety Missed meth clinic/needs meds Chief Complaint [...] sciatica Procedures CONSULT TO PAIN MGT OFFICE/OUTPATIENT [facility] 60-74 MINUTES Mireille Cheatham APRN.PRIMARY HEALTH ORGANISATION MANAGER [address] [place] [address] Referral ID Status Reason Start Date Expiration Date Visits Requested Visits Authorized [id number] Authorized PCP Requested Referral 03/16/2023 03/15/2024 1 1 Specialty Diagnoses / Procedures Referred By Contac t Referred To Contact Diagnoses Attention deficit hyperactivity disorder (ADHD), unspecified ADHD type Bipolar depression (HCC) Paranoid schizophrenia (HCC) Procedures CONSULT TO PSYCHIATRY OFFICE/OUTPATIENT [facility] 60-74 MINUTES Mireille Cheatham APRN.PRIMARY HEALTH ORGANISATION MANAGER [address] [place] [address] Referral ID Status Reason Start Date Expiration Date Visits Requested Visits Authorized [id number] Pending Review PCP Requested Referral 03/16/2023 03/15/2024 1 1 Specialty Diagnoses / Procedures Referred By Contac t Referred To Contact Diagnoses History of abnormal cervical Pap smear Procedures CONSULT TO AUTOMATIC PROFILE SHAPER OPERATOR OFFICE/OUTPATIENT [facility] 60-74 MINUTES Mireille Cheatham APRN.PRIMARY HEALTH ORGANISATION MANAGER [address] [place] [address] Referral ID Status Reason Start Date Expiration Date Visits Requested Visits Authorized [id number] Authorized PCP Requested Referral Auto-Generate d Referral 03/16/2023 03/15/2024 1 1 Additional Source Comments INFORMATION SOURCE (unrecogn ized section and content) DATE CREATED AUTHOR 05/14/2019 [facility] DATE CREATED AUTHOR AUTHOR'S ORGANIZ ATION 02/11/2021 [facility] DATE CREATED AUTHOR AUTHOR'S ORGANIZ ATION 01/16/2023 [facility] DATE CREATED AUTHOR AUTHOR'S ORGANIZ ATION 05/17/2023 [facility] DATE CREATED AUTHOR AUTHOR'S ORGANIZ ATION 06/13/2023 [facility] DATE CREATED AUTHOR AUTHOR'S ORGANIZ ATION 09/01/2023 [facility] DATE CREATED AUTHOR AUTHOR'S ORGANIZ ATION 11/06/[address] [facility] DATE CREATED AUTHOR AUTHOR'S ORGANIZ ATION 11/23/2023 [facility] (unrecognized sect ion and content) Team Status: Active Member Role Status Dates Cris Pena APRN TRANSIT WORKER-C Primary Care Provider Active Team Status: Inactive Member Role Status Dates Rachael Reyes DO Emergency Provider Active Cris Pena APRN TRANSIT WORKER-C Primary Care Provider Active Team Status: Inactive Member Role Status Dates Cris Pena APRN TRANSIT WORKER-C Primary Care Provider Active Nito Walton DO Emergency Provider Active Team Status: Active Member Role Status Dates Cris Pena APRN TRANSIT WORKER-C Primary Care Provider Active Carol Moses DO Emergency Provider Active Bobo Shields MD Admit Provider, Attending Provider Active Team Status: Inactive Member Role Status Dates Rachael Reyes DO Emergency Provider Active Nancy Rodriguez , TRANSIT WORKER-C Primary Care Provider Active Team Status: Active Member Role Status Dates Nancy Rodriguez , TRANSIT WORKER-C Primary Care Provider Active Team Status: Inactive Member Role Status Dates Cris Pena APRN TRANSIT WORKER-C Primary Care Provider Active Carol Moses DO Emergency Provider Active Bobo Shields MD Admit Provider, Attending Provider Active Team Status: Inactive Member Role Status Dates Cris Pena APRN TRANSIT WORKER-C Primary Care Provider Active Farhad Landon MD Emergency Provider Active Data Coordinator Relationship Specialty Start Date End Date Mireille Cheatham APRN.PRIMARY HEALTH ORGANISATION MANAGER [address] [place] [address] PCP - General Internal Medicine 03/16/23 Data Coordinator Relationship Specialty Start Date End Date Mireille Cheatham APRN.PRIMARY HEALTH ORGANISATION MANAGER [address] [place] [address] PCP - General Internal Medicine 03/16/23 Data Coordinator Relationship Specialty Start Date End Date Randal Cheathamina, SUPERVISOR [employer].PRIMARY HEALTH ORGANISATION MANAGER [address] [place] [address] PCP - General Internal Medicine 03/16/23 Data Coordinator Relationship Specialty Start Date End Date RandalMireille, SUPERVISOR [employer].PRIMARY HEALTH ORGANISATION MANAGER [address] [facility] [place] [address] PCP - General Internal Medicine 03/16/23 Team Status: Active Member Role Status Dates NON STAFF Primary Care Provider Active Team Status: Inactive Member Role Status Dates Cris Pena APRN TRANSIT WORKER-C Primary Care Provider Active Leonard Salazar DO Emergency Provider Active Team Status: Inactive Member Role Status Dates Cris Pena APRN TRANSIT WORKER-C Primary Care Provider Active Rachael Reyes DO Emergency Provider Active Team Status: Inactive Member Role Status Dates NON STAFF Primary Care Provider Active Rachael Reyes DO Emergency Provider Active Team Status: Inactive Member Role Status Dates NON STAFF Primary Care Provider Active Eriberto Sheppard PA-C Emergency Provider Active Data Coordinator Relationship Specialty Start Date End Date RandalMireille, SUPERVISOR [employer].PRIMARY HEALTH ORGANISATION MANAGER [address] [place] [address] PCP - General Internal Medicine 03/16/23 Data Coordinator Relationship Specialty Start Date End Date Randal coronelina, SUPERVISOR [employer].PRIMARY HEALTH ORGANISATION MANAGER [address] [place] [address] PCP - General Internal Medicine 03/16/23 Team Status: Inactive Member Role Status Dates NON STAFF Primary Care Provider Active Luis Armando Hendrix MD Emergency Provider Active Team Status: Inactive Member Role Status Dates NON STAFF Primary Care Provider Active Bobo Shields MD Admit Provider, Attending Provider Active Team Status: Active Member Role Status Dates Cris Pena APRN TRANSIT WORKER-C Primary Care Provider Active Claudio Dee MD Attending Provider Active Team Status: Active Member Role Status Tita Pena APRN TRANSIT WORKER-C Primary Care Provider Active Chucky Dueñas Jr, MD Emergency Provider Active Bobo Shields MD Admit Provider, Attending Provider Active Team Status: Inactive Member Role Status Tita Pena APRN TRANSIT WORKER-C Primary Care Provider Active Chucky Dueñas Jr, [...] or prosecute any alcohol or drug abuse patient.[facility] the event this information is protected by the Federal Confidentiality of Alcohol and Drug Abuse Patient Records regulations: The Federal rules restrict any use of the information to criminally investigate or prosecute any alcohol or drug abuse patient.[facility] the event this information is protected by the Federal Confidentiality of Alcohol and Drug Abuse Patient Records regulations: The Federal rules restrict any use of the information to criminally investigate or prosecute any alcohol or drug abuse patient.[facility] the event this information is protected by the Federal Confidentiality of Alcohol and Drug Abuse Patient Records regulations: The Federal rules restrict any use of the information to criminally investigate or prosecute any alcohol or drug abuse patient.[facility] the event this information is protected by the Federal Confidentiality of Alcohol and Drug Abuse Patient Records regulations: The Federal rules restrict any use of the information to criminally investigate or prosecute any alcohol or drug abuse patient.[facility] the event this information is protected by the Federal Confidentiality of Alcohol and Drug Abuse Patient Records regulations: The Federal rules restrict any use of the information to criminally investigate or prosecute any alcohol or drug abuse patient.[facility] the event this information is protected by the Federal Confidentiality of Alcohol and Drug Abuse Patient Records regulations: The Federal rules restrict any use of the information to criminally investigate or prosecute any alcohol or drug abuse patient.[facility] the event this information is protected by the Federal Confidentiality of Alcohol and Drug Abuse Patient Records regulations: The Federal rules restrict any use of the information to criminally investigate or prosecute any alcohol or drug abuse patient.[facility] the event this information is protected by the Federal Confidentiality of Alcohol and Drug Abuse Patient Records regulations: The Federal rules restrict any use of the information to criminally investigate or prosecute any alcohol or drug abuse patient.[facility] the event this information is protected by the Federal Confidentiality of Alcohol and Drug Abuse Patient Records regulations: The Federal rules restrict any use of the information to criminally investigate or prosecute any alcohol or drug abuse patient.[facility]In the event this information is protected by the Federal Confidentiality of Alcohol and Drug Abuse Patient Records regulations: The Federal rules restrict any use of the information to criminally investigate or prosecute any alcohol or drug abuse patient.[facility]In the event this information is protected by the Federal Confidentiality of Alcohol and Drug Abuse Patient Records regulations: The Federal rules restrict any use of the information to criminally investigate or prosecute any alcohol or drug abuse patient.[facility] Hospital[facility] the event this information is protected by the Federal Confidentiality of Alcohol and Drug Abuse Patient Records regulations: The Federal rules restrict any use of the information to criminally investigate or prosecute any alcohol or drug abuse patient.[facility] the event this information is protected by the Federal Confidentiality of Alcohol and Drug Abuse Patient Records regulations: The Federal rules restrict any use of the information to criminally investigate or prosecute any alcohol or drug abuse patient.[facility] the event this information is protected by the Federal Confidentiality of Alcohol and Drug Abuse Patient Records regulations: The Federal rules restrict any use of the information to criminally investigate or prosecute any alcohol or drug abuse patient.[facility] HospitalIn the event this information is protected by the Federal Confidentiality of Alcohol and Drug Abuse Patient Records regulations: The Federal rules restrict any use of the information to criminally investigate or prosecute any alcohol or drug abuse patient.[facility] Reason for Visit (unrecogniz ed section [...] BE BASED ON THE PRIMARY CLINICAL RECORDS. [facility]. provides no warranty or guarantee of the accuracy or completeness of information in this document.
--- NOTE | 2023-11-24 18:58 | ED_ITS ---
HPI - Anxiety General Chief Complaint: Anxiety Stated Complaint: Anxiety Time Seen by Provider: 11/24/23 18:49 Source: patient Mode of arrival: walk-in Limitations: no limitations History of Present Illness HPI narrative: Patient is a 38-year-old female with a history of chronic anxiety and psych dysfunction who presents to the emergency department for uncontrolled anxiety. She states she was admitted to inpatient psychiatric facility on 11/22/2023. She states she was released today. She states they refused to prescribe any medications for her anxiety. She has an upcoming psychiatric appointment on Thursday. She has had no fevers, vomiting. She denies suicidal or homicidal ideation. She is not concerned for . She feels of her anxiety is controlled she can safely go home. Related Data Home Medications Medication Instructions Recorded Confirmed divalproex 250 mg tablet,delayed 750 mg PO BEDTIME 06/11/23 11/21/23 release albuterol sulfate 90 mcg/actuation 2 puff inhalation Q6H PRN 07/02/23 11/21/23 aerosol inhaler shortness of breath or wheezing methadone 5 mg/5 mL oral solution 130 mg PO QDAY 07/02/23 11/21/23 pregabalin 100 mg capsule 100 mg PO Q8H 07/02/23 11/21/23 dextroamphetamine-amphetamine 10 20 mg PO BID 09/09/23 11/21/23 mg tablet quetiapine 150 mg tablet 300 mg PO .qhs 09/09/23 11/21/23 quetiapine 25 mg tablet 50 mg PO QDAY 09/09/23 11/21/23 albuterol sulfate 2.5 mg/3 mL mg 09/29/23 (0.083 %) solution for nebulization atomoxetine 25 mg capsule 25 mg PO DAILY 11/21/23 11/21/23 buprenorphine 8 mg-naloxone 2 mg 1 film sublingual DAILY 11/21/23 11/21/23 sublingual film bupropion HCl 300 mg 24 hr tablet, 300 mg PO DAILY 11/21/23 11/21/23 extended release cyclobenzaprine 5 mg tablet 5 mg PO DAILY 11/21/23 11/21/23 duloxetine 30 mg capsule,delayed 30 mg PO .dailly 11/21/23 11/21/23 release Previous Rx's Medication Instructions Recorded clonazepam 0.5 mg tablet (Klonopin) 0.5 mg PO Q8H PRN anxiety #6 tabs 09/10/23 dextroamphetamine-amphetamine 10 20 mg (2 x 10 mg) PO BID #8 tabs 09/10/23 mg tablet (Adderall) clonazepam 0.5 mg tablet (Klonopin) 0.5 mg PO Q8H anxiety #10 tabs 11/24/23 Allergies Allergy/AdvReac Type Severity Reaction Status Date / Time No Known Drug Allergies Allergy Verified 09/29/23 23:12 Review of Systems ROS Constitutional Denies: fever or chills Ears, nose, mouth, and throat Denies: throat pain or nasal congestion Cardiovascular Denies: chest pain Respiratory Denies: shortness of breath Gastrointestinal Denies: abdominal pain, nausea or vomiting Genitourinary Denies: change in menstrual flow Integumentary/Breast Denies: rash Neurological Denies: headache Psychiatric Reports: anxiety Hematologic/Lymphatic Denies: easy bruising or easy bleeding PFSH PFSH Social History Smoking status: Current every day smoker Exam Narrative Exam Narrative: Gen.: Awake, alert, in no distress Head: Normocephalic, atraumatic ENT: Moist mucous membranes Respiratory: No respiratory distress, lungs clear bilaterally Cardio: Regular rate and rhythm Extremities: Moves extremities equally Psych: Normal mood and affect; Calm, cooperative, denies suicidal or homicidal ideation Neuro: No focal neuro deficit Skin: Warm, dry, intact Constitutional Vital Signs, click to edit/add: Last Vital Signs Temp 98.2 F 11/24/23 18:41 Pulse 90 11/24/23 18:41 Resp 16 11/24/23 18:41 BP 128/73 11/24/23 18:41 Pulse Ox 100 11/24/23 18:41 O2 Del Method Room Air 11/24/23 18:41 Course Vital Signs Vital signs: Vital Signs Temperature 98.2 F 11/24/23 18:41 Pulse Rate 90 11/24/23 18:41 Respiratory Rate 16 11/24/23 18:41 Blood Pressure 128/73 11/24/23 18:41 Pulse Oximetry 100 11/24/23 18:41 Oxygen Delivery Method Room Air 11/24/23 18:41 Temperature 98.2 F 11/24/23 18:41 Pulse Rate 90 11/24/23 18:41 Respiratory Rate 16 11/24/23 18:41 Blood Pressure 128/73 11/24/23 18:41 Pulse Oximetry 100 11/24/23 18:41 Oxygen Delivery Method Room Air 11/24/23 18:41 MDM - Anxiety MDM Narrative Medical decision making narrative: Patient is requesting a Klonopin refill. She has an [facility] report showing previous prescriptions for Klonopin as well as most recently Ativan although she does not have any medications currently prescribed to her for anxiety. I made her aware of the limitations of the emergency department. She was given Ativan in the ER and discharged home with a prescription for Klonopin for tomorrow. R eturn to the ER if symptoms change or worsen. Medical Records Attestation: I reviewed the patient's medical records. Discharge Plan Discharge Chief Complaint: Anxiety Clinical Impression: Medication refill, Acute anxiety Patient Disposition: Home, Self-Care Time of Disposition Decision: 18:56 Condition: Good Prescriptions / Home Meds: New clonazepam [Klonopin] 0.5 mg tablet 0.5 mg PO Q8H Qty: 10 0RF Rx Instructions: DX: F41.9 No Action divalproex 250 mg tablet,delayed release (DR/EC) 750 mg PO BEDTIME Hold Instructions: dc pregabalin 100 mg capsule 100 mg PO Q8H albuterol sulfate 90 mcg/actuation HFA aerosol inhaler 2 puff INHALATION Q6H PRN (Reason: shortness of breath or wheezing) methadone 5 mg/5 mL solution 130 mg PO QDAY Hold Instructions: dc dextroamphetamine-amphetamine [Adderall] 10 mg tablet 20 mg PO BID Qty: 8 0RF Hold Instructions: dc Rx Instructions: administer doses at least 4-6 hours apart clonazepam [Klonopin] 0.5 mg tablet 0.5 mg PO Q8H PRN (Reason: anxiety) Qty: 6 0RF Rx Instructions: DX: F41.9 albuterol sulfate 2.5 mg /3 mL (0.083 %) solution for nebulization Hold Instructions: dc dextroamphetamine-amphetamine 10 mg tablet 20 mg PO BID Hold Instructions: dc quetiapine 150 mg tablet 300 mg PO .qhs quetiapine 25 mg tablet 50 mg PO QDAY Rx Instructions: 2pm duloxetine 30 mg capsule,delayed release(DR/EC) 30 mg PO .ashleigh Patient Comments: 30mg in morning 60mg at night atomoxetine 25 mg capsule 25 mg PO DAILY buprenorphine-naloxone 8-2 mg film 1 film sublingual DAILY Patient Comments: 2 in the morning and 1 at night bupropion HCl 300 mg tablet extended release 24 hr 300 mg PO DAILY cyclobenzaprine 5 mg tablet 5 mg PO DAILY Instructions: Anxiety (ED), Medicine Refill (ED) Stand Alone Forms: Portal Instructions Referrals: RAHEL THORNTON [Primary Care Provider] - 1 week
[2023-11-24] MEDS: LORAZEPAM 0.5 MG TABLET 1 MG PO (19:05)
[2023-11-24] MEDS: CLONAZEPAM 0.5 MG TABLET PO (19:24)
[2023-11-24 19:27] VITALS: BP 130/80; PULSE 88; RESP 18; O2SAT 99
== END 2023-11-24 19:25 | disposition home or self-care (01) ==
PROVIDERS: Emergency Provider Emergency Medicine; PCP Nurse Practitioner Family
DX: F41.9 Anxiety disorder, unspecified (principal); Z76.0 Encounter for issue of repeat prescription; Z79.899 Other long term (current) drug therapy; F17.210 Nicotine dependence, cigarettes, uncomplicated
CPT/HCPCS: 99283

== ENCOUNTER 2023-11-30 23:05 | Emergency (ER) | payer OTHER, SELFPAY ==
[2023-11-30] VITALS (7 sets, daily range): BP systolic 123; BP diastolic 82; PULSE 121–129; RESP 13–25; TEMP 37.9; O2SAT 97–100; BMI 23.3
--- OUTSIDE RECORDS SUMMARY | 2023-11-30 23:14 | XMS_ITS | CCD ---
Author Name Unknown Address [address] [place] [address] Organization [facility] Care Team Providers Care Feed Manager Name Role Phone LUCAS HOFFMANN Primary [...] Unavailable Unavailable DO Rachael Reyes Emergency Provider [phone] ERNESTINE Rodriguez Primary Care Provider Cris PENA Primary Care Physician DO Rachael Reyes Emergency Provider [phone] RUIZ Pena Primary Care Provider DO Nito Walton Emergency Provider DO Rachael Reyes Emergency Provider CHOLO PenaN Cris Primary Care Provider DO Nito Walton Emergency Provider DO Jose [...] MACHADO Admitting Unavailable VIVIAN MACHADO Attending Unavailable CARTER, [...] Consulting Unavailable MD Farhad Landon Emergency Provider [phone] Caitlin Cheatham APRN.CNP Primary Care Provider CHOLO PenaApoorva Lynch Primary Care Provider [phone] DO Leonard Salazar Emergency Provider DO Rachael Reyes Emergency Provider [phone] NON STAFF Primary Care Provider UnavailJOSE Burns Emergency Provider Unavailable Primary Care Provider UnavailCAITLIN Diaz Referring Unavailable LINDEN, CAITLIN Primary Care Unavailable ISACC REDMOND Attending Unavailable DO Rachael Reyes Emergency Provider MD Luis Armando Hendrix Emergency Provider [phone] GHASSAN CARRASCO Attending Unava TRACE Patrick Primary Care UnaMD Won Yanesmi Admit Provider MD Bobo Shields Attending Provider [phone] AKBAR KOCH Attending Unavailable MUHA, CAITLIN Referring Unavailable MUHA, CAITLIN Primary Care Unavailable MUHA, CAITLIN Attending Unavailable MUHA, CAITLIN Referring Unavailable MUHA, CAITLIN Primary Care Unavailable CHUCK GALINDO Attending Unavailable MUHA, CAITLIN Primary Care Unavailable MUHA, CAITLIN Attending Unavailable NON STAFF Primary Care Provider Unavailabl e MD Bobo Shields Admit Provider [phone] MD Bobo Shields Attending Provider [phone] RUIZ Pena Primary Care Provider DO Rachael Reyes Emergency Provider RUIZ Pena Cris Primary Care Provider [phone] MD Claudio Dee Attending Provider MD Chucky Dueñas Jr Emergency Provider MD Won Shieldsmi Admit Provider MD Bobo Shields Attending Provider Magalie Cris Primary Care Unavailable Rachael Reyes Attending [...] Care Unavailable Rachael Reyes Attending Unavailable Rachael eRyes Admitting Unavailable Bobo Shileds Admitting Unavailable Cornelius, Bobo Attending Unavailable Robuck, [...] Tripp Consulting Unavailable Maverick Lopez Consulting Unavailable uLcila Blanton Consulting Unavailable Luis Armando Hendrix Attending [...] Primary Care Unavailable Farhad Landon Attending Unavailable Christian Locke Attending Unavailable Derrell Orantes Attending Unavailable Cris PENA Attending Unavailable Heather Valenzuela Attending Unavailable DO Norma Dietz Attending Unavailable Derrell Orantes Attending Unavailable Derrell Orantes Attending Unavailable MAGALIE, Cris Russo Attending Unavailable NANCY RODRIGUEZ Attending Unavailable ROBUCK, Cris E Attending Unavailable ROBUCK, Cris E Attending Unavailable ROBUCK, Cris E Attending Unavailable ROBUCK, Cris E Attending Unavailable ROBUCK, Cris E Attending Unavailable ROBUCK, Cris E Attending Unavailable ROBRONALDO, Cris E Attending Unavailable Zahraa Connors Attending Unavailable Jacqueline Marquez Attending Unavailable DO Norma Dietz Attending Unavailable Christian Locke Attending Unavailable Medications Current Medications Medication Drug Class(es) Dates Sig (Normalized) Sig (Original) albuterol 0.83 mg/ml inhalation solution (20 sources) beta2-Adrenergic Agonist Start: 10-02-2022 take 2.5 mg by inhalation every six hours for wheezing albuterol 0.083% Inh Vera 3 mL 2.5 mg, 3 mL, Inhalation, q6hr for wheezing, 60 EA, Refill(s) 1, [facility] #[id number], 167, cm, 10/02/22 14:11:00 EST, Height/Length Dosing, [...] q6hr for wheezing, 60 EA, Refill(s) 1, [facility] #[id number], 165, cm, 11/01/21 14:58:00 EST, Height/Length Dosing, [...] BID, # 1 EA, Refills(s) 10, Pharmacy: [facility] #[id number], 167, cm, 10/02/22 14:11:00 EST, Height/Length Dosing, 70, kg, 10/02/22 14:11:00 EST, Weight Dosing Start Date: 10/02/22 Status: Ordered Start: 04-22-2022 Pulmicort Flex haler 180 mcg/inh Powder = 2 inh, Inhalation, BID, # 1 EA, Refills(s) 10, Pharmacy: [facility] #[id number], 165, cm, 11/01/21 14:58:00 EST, Height/Length Dosing, [...] day(s), # 14 cap(s), Refills(s) 0, [id number], 165, cm, 04/24/22 13:10:00 EDT, Height/Length Dosing, [...] 2023 12:00am Start: 12-08-2019 End: 07-17-2020 take 38167 [IU] by mouth every week Ergocalciferol (Vitamin D2) Discontinued 96275 UNIT PO every week December 08, 2019 12:00am July 17, 2020 10:04pm Start: 11-07-2019 End: 12-08-2019 take 72860 [IU] by mouth every week Ergocalciferol (Vitamin D2) Discontinued 93561 UNIT PO every week November 07, 2019 12:00am December 08, 2019 1:42pm on Start: 11-07-2019 End: 12-08-2019 take 46299 [IU] by mouth every week Ergocalciferol (Vitamin D2) Discontinued 97847 UNIT PO every week November 07, 2019 1:00am December 08, 2019 2:42pm on Start: 11-03-2019 End: 11-07-2019 Ergocalciferol (Vitamin D2) Discontinued 87318 UNIT PO Th@0900 November 03, 2019 12:00am November 07, 2019 2:44pm Start: 11-03-2019 End: 11-07-2019 Ergocalciferol (Vitamin D2) Discontinued 63860 UNIT PO Th@0900 November 03, 2019 1:00am [...] times daily. Take 1 capsule by mo [facility] three times daily for 30 days. Take 1 capsule by mo [facility] three times daily for 90 days. Take 1 capsule by mo [facility] three times a day for 30 days. promethazine hydrochloride 25 mg oral tablet (4 sources) Phenothiazine Start: 12-22-19 take 1 tablet by mouth every four hours as needed for nausea promethazine 25 mg Tab 25 mg = 1 tab(s), Oral, q4hr, PRN for nausea/vomiting, # 30 tab(s), Refills(s) 0, Pharmacy: [id number], 165, cm, 12/22/19 13:50:00 EDT, [...] PO Twice Daily at 0900 and 1400 January 14, 2023 11:00pm February 03, 2023 3:03pm Start: 01-15-2023 End: 06-08-2023 take 300 mg by mouth once daily at bedtime Quetiapine Discontinued 300 MG PO Daily at bedtime 14 14 January 14, 2023 11:00pm June 08, 2023 7:22am Start: 11-06-2022 QUEtiapine (SE ROQUEL) 200 mg tablet Take 200 mg by mouth. 0 11/06/2022 Active Start: 04-22-2022 take 1 tablet by troy th twice daily Seroquel 400 mg oral tablet 400 mg = 1 tab(s), Oral, BID, # 60 tab(s), Refills(s) 3, Pharmacy: [facility] #[id number], 165, cm, 11/01/21 14:58:00 EST, Height/Length Dosing, 88, kg, 11/01/21 14:58:00 EST, Weight Dosing Start Date: 04/22/22 Status: Ordered Start: 03-24-2021 End: 01-16-2023 take 400 mg by mouth once daily at bedtime Quetiapine Discontinued 400 MG PO Daily at bedtime 30 15 March 23, 2021 11:00pm January 16, 2023 [...] puff(s), Inhalation, QID, 1 EA, Refill(s) 1, [facility] #[id number], 167, cm, 10/02/22 14:11:00 EST, Height/Length Dosing, 70, kg, 10/02/22 14:11:00 EST, Weight Dosing Start Date: 10/02/22 Status: Ordered Start: 01-20-2022 take 1 dose by inhal ation four times daily albuterol HFA 90 mcg/inh MDI 2 puff(s), Inhalation, QID, 1 EA, Refill(s) 1, [facility] #[id number], 165, cm, 11/01/21 14:58:00 EST, Height/Length Dosing, 88, kg, 11/01/21 14:58:00 EST, Weight Dosing Start Date: 01/20/22 Status: Ordered amoxicillin 500 mg / clavulanate 125 mg oral tablet (14 sources) Penicillin-class Antibacterial Start: 03-24-2021 End: 11-20-2022 take 1 tablet by mouth every eight hours Amoxicillin-Pot Clavulanate Discontinued 1 TAB PO Every 8 hours 8 March 23, 2021 11:00pm November 20, 2022 [...] supply, # 60 tab(s), Refills(s) 0, [id number], 167, cm, 11/06/22 14:42:00 EST, Height/Length Dosing, 68.2, kg, 11/06/22 14:42:00 EST, Weight Dosing Start Date: 11/06/22 Status: Ordered Start: 10-10-2022 End: 10-17-2022 take 1 tablet by mouth three times daily amphetamine-dextroamphetamine 10 mg oral tablet 10 mg, 1 tab(s), Oral, TID for 7 day(s), 21 tab(s), Refill(s) 0, [id number], 167, cm, 10/10/22 12:48:00 EST, Height/Length Dosing, 72.9, kg, 10/10/22 12:48:00 EST, Weight Dosing Start Date: 10/10/22 Stop Date: 10/17/22 Status: Ordered Start: 01-17-2019 End: 01-20-2019 take 30 mg by mouth twice daily Dextroamphetamine-Amphetamine Discontinu ed 30 MG PO Twice daily January 16, 2019 11:00pm January 20, 2019 5:01pm Comment on above: Take 2 tablets by mo [facility] twice daily for 30 days. Take 10 mg by mouth. Take 1 tablet by troy twice daily. Take 1 tablet by troy twice daily for 30 days. ARIPiprazole 5 [...] mg/ml extended release suspension (14 sources) Uncompetitive Y-iegecx-Q-aspartate Receptor Antagonist, Sigma-1 Agonist Start: 022 End: [...] Discontinued 100 MG PO Daily at bedtime March 01, [...] day, # 150 cap(s), Refills(s) 2, Pharmacy: [facility] #[id number], 167, cm, 11/06/22 14:42:00 EST, Height/Length Dosing, 68.2, kg, 11/06/22 14:42:00 EST, Weight Dosing Start Date: 11/06/22 Status: Ordered Start: 10-02-2022 gabapentin 400 mg Cap See Instructions, 1 cap(s) Oral 5 x per day, # 150 cap(s), Refills(s) 2, Pharmacy: [facility] #[id number], 167, cm, 10/02/22 14:11:00 EST, Height/Length Dosing, 70, kg, 10/02/22 14:11:00 EST, Weight Dosing Start Date: 10/02/22 Status: Ordered Start: 02-28-2022 End: 05-29-2022 take 1 tablet by mouth four times daily gabapentin 600 mg Tab 600 mg = 1 tab(s), Oral, QID, X 30 day(s), # 120 tab(s), Refills(s) 2, Pharmacy: [facility] 1986, 165, cm, 11/01/21 14:58:00 EST, Height/Length [...] anxiety, # 200 mL, Refills(s) 3, Pharmacy: [facility] #[id number], 167, cm, 11/06/22 14:42:00 EST, Height/Length Dosing, 68.2, kg, 11/06/22 14:42:00 EST, Weight Dosing Start Date: 11/06/22 Status: Ordered Start: 04-22-2022 take 1 capsule by mo [facility] three times daily Vistaril 50 mg Cap 50 mg = 1 cap(s), Oral, TID, # 90 cap(s), Refills(s) 1, Pharmacy: [facility] #[id number], 165, cm, 11/01/21 14:58:00 EST, Height/Length Dosing, [...] 07/18/2020 Discontinued (LIST CLEANUP) polyethylene glycol 3350 08376 mg powder for oral solution (20 sources) [...] 10-26-2019 Episodic Other aftercare (1 source) Other long-term (current) drug therapy; Translations: [OTH TECHNICIAN TRAINEE CURRENT DRUG THERAPY] Onset: 12-17-2022 Episodic Other [...] [PROC AND TX NOT CARRIED OUT PT [facility] RSN] Onset: 01-13-2023 Episodic Residual codes; [...] Comment on above: [facility] and [...] [facility] ED Note-Physicianon 11-05-19 ED Note-Physician [id number] .00TIFF [facility] Consultation Noteon 10-20-19 Consultation Note [id number]. 00TIFF Normal [facility] Aerobic Cultureon 10-16-2023 Aerobic Culture Moderate Normal Respiratory Lanny 2 Days Gram Stain Result 2+ Epithelial Cells 2+ White Blood Cells Rare Gram Positive Bacilli PERFORMED BY: [place] [address] PATHOLOGIST INDUSTRIAL CLEANING TECHNICIAN DANYELL LIVINGSTON M.D. [facility] Comment on above: Performed By: #### U HCG, URDS, ADDONUAPLUS, CUU #### [facility] [address] [place], [place] [id number] [facility] Aerobic cultureOrdered By: Cesia Abdi on 10-16-2023 Bacteria identified Aer cx Nom (Unsp spec) 2 Days [facility] Gram Stainon 10-16-2023 Microscopic observation Gram stain Nom (Unsp spec) Gram Stain Result 2+ Epithelial Cells 2+ White Blood Cells Rare Gram Positive Bacilli PERFORMED BY: [place] [address] PATHOLOGIST INDUSTRIAL CLEANING TECHNICIAN DANYELL LIVINGSTON M.D. [facility] Comment on above: Performed By: #### U HCG, URDS, ADDONUAPLUS, CUU #### [facility] [address] [place], [place] [id number] [place] Gram stain for investigation of transfusion reactionOrdered By: Darlin Martin on 10-16-2023 Microscopic observation Gram stain Nom (Unsp spec) [facility] Urinalysison 10-16-2023 Appearance (U) Clear Normal Clear [facility] Comment on above: Order Comment: Comme nt use er lab draw Performed By: #### L IPID, [id number], TSH3 wRFLX #### [facility] [address] [place], [place] [id number] [place] Bilirubin,Urine Negative Normal Negative [facility] Comment on above: Order Comment: Comme nt use er lab draw Performed By: #### L IPID, [id number], TSH3 wRFLX #### [facility] [address] [place] [address] [place] Glucose Ql (U) Normal Normal Normal [facility] Comment on above: Order Comment: Comme nt use er lab draw Performed By: #### L IPID, [id number], TSH3 wRFLX #### [facility] [address] [place] [address] [place] Ketones Ql (U) Negative Normal Negative [facility] Comment on above: Order Comment: Comme nt use er lab draw Performed By: #### L IPID, [id number], TSH3 wRFLX #### [facility] [address] [place] [address] Leukocyte esterase Test strip Ql (U) Negative Normal Negative [facility] Comment on above: Order Comment: Comme nt use er lab draw Performed By: #### L IPID, [id number], TSH3 wRFLX #### [facility] [address] [place] [address] [place] Nitrite,Urine Negative Normal Negative [facility] Comment on above: Order Comment: Comme nt use er lab draw Performed By: #### L IPID, [id number], TSH3 wRFLX #### [facility] [address] [place] [address] [place] Occult Blood,Urine Negative Normal Negative [facility] Comment on above: Order Comment: Comme nt use er lab draw Result Comment: PERF ORMED BY: [place] [address] PATHOLOGIST INDUSTRIAL CLEANING TECHNICIAN DANYELL LIVINGSTON M.D. Performed By: #### L IPID, [id number], TSH3 wRFLX #### [facility] [address] [place] [address] [place] Protein,Urine Negative Normal Negative [facility] Comment on above: Order Comment: Comme nt use er lab draw Performed By: #### L IPID, [id number], TSH3 wRFLX #### [facility] [address] [place] [address] [place] Specificy [place],Urine 1.017 Normal 1.001-1.030 [facility] Comment on above: Order Comment: Comme nt use er lab draw Performed By: #### L IPID, [id number], TSH3 wRFLX #### [facility] [address] Urobilinogen,Urine Normal Normal Normal [facility] Comment on above: Order Comment: Comme nt use er lab draw Performed By: #### L IPID, [id number], TSH3 wRFLX #### [facility] [address] [place] [address] [place] Automated urine color determ inationOrdered By: Darlin Abdi on 10-15-2023 Color (U) Yellow Normal Yellow [facility] Comment on above: Order Comment: Comme nt use er lab draw Performed By: #### L IPID, [id number], TSH3 wRFLX #### [facility] [address] Bilirubin Test strip Ql (U)O rdered By: Darlin Abdi on 10-15-2023 Bilirubin Ql (U) Negative Negative [facility] Ketones Auto test strip (U) [Mass/Vol]Ordered By: Darlin Abdi on 10-15-2023 Ketones (U) [Mass/Vol] Negative Negative [facility] Nitrite Test strip Ql (U)Ord ered By: Darlin Abdi on 10-15-2023 Nitrite Ql (U) Negative Negative [facility] Protein Auto test strip (U) [Mass/Vol]Ordered By: Darlin Abdi on 10-15-2023 Protein (U) [Mass/Vol] Negative Negative [facility] Specific gravity Auto test s trip (U) [Rel density]Ordered By: Darlin Martin on 10-15-2023 Specific gravity (U) [Rel density] 1.017 1.001-1.030 [facility] Urine clarity by refractomet ry automatedOrdered By: Darlin Abdi on 10-15-2023 Clarity Refractometry automated (U) Clear Clear [facility] Urine glucose measurement by automated test strip (mass/volume)Ordered By: Darlin Abdi on 10-15-2023 Glucose Auto test strip (U) [Mass/Vol] Normal mg/dL Normal [facility] Urine hemoglobin detection b y automated test stripOrdered By: Darlin Martin on 10-15-2023 Hemoglobin Auto test strip Ql (U) Negative Negative [facility] Urine leukocyte esterase det ection by automated test stripOrdered By: Darlin Abdi on 10-15-2023 Leukocyte esterase Auto test strip Ql (U) Negative Negative [facility] Urine pH measurement by auto mated test stripOrdered By: Darlin Abdi on 10-15-2023 pH (U) 6.5 [pH] Normal 5.0-9.0 [facility] Comment on above: Order Comment: Comme nt use er lab draw Performed By: #### L IPID, [id number], TSH3 wRFLX #### [address] Urobilinogen Auto test strip (U) [Mass/Vol]Ordered By: Darlin Abdi on 10-15-2023 Urobilinogen (U) [Mass/Vol] Normal mg/dL Normal [facility] XR chest 2V*on 10-15-2023 XR chest 2V* [facility] [address] [place] [address] XRay Report Signed Patient: Lorna Deutsch MR#: [id number] 98 : 1985 Acct:[id number] Age/Sex: 38 / F ADM Date: 10/09/23 Loc: Room: [address] [place] [address] Type: ADM IN Attending Dr: Bobo Shields [...] Viviana Bui M.D.10/15/2023 5:44 PM Dictation Location: [place] [address] Transcribed By: [facility] 10/15/231743 Dictated By: Viviana Bui MD 10/15/231742 Signed By: 10/15/231743 Normal [facility] Acetaminophenon 10-09-2023 Acetaminophen [Mass/Vol] 0.1 ug/mL Low 10.0-30.0 [facility] Comment on above: Performed By: #### L IPID, [id number], TSH3 wRFLX #### [address] Ammoniaon 10-09-2023 Ammonia (P) [Moles/Vol] 27 umol/L Normal 11-35 F [facility] Comment on above: Result Comment: PERF ORMED BY: [place] [address] PATHOLOGIST INDUSTRIAL CLEANING TECHNICIAN DANYELL LIVINGSTON M.D. Performed By: #### L IPID, [id number], TSH3 wRFLX #### [address] ECG 12 lead ECGon 10-09-2023 ECG 12 lead ECG [facility] [address] [place] [address] Electrocardiograph Report Signed Patient: Lorna Deutsch MR#: [id number] [birth year] : 1985 Acct:[id number] Age/Sex: 38 / F ADM Date: 10/09/23 Loc: Room: [address] [place] [address] Type: ADM IN Attending Dr: Bobo Shields [...] By Amaya Carbajal DO 10/11 1555 Normal [facility] Salicylateon 10-09-2023 Salicylate < 1.5 Low 15.0-30.0 [facility] Comment on above: Result Comment: Sonia ents treated with Sulfasalazine may generate a false high result for Salicylate. Performed By: #### L IPID, [id number], TSH3 wRFLX #### [facility] [address] Valproic Acid (in house)on 1 Valproic Acid (in house) < 4.0 Low 50.0-100.0 [facility] Comment on above: Result Comment: Last dose: - PERFORMED BY: [place] [address] PATHOLOGIST INDUSTRIAL CLEANING TECHNICIAN DANYELL LIVINGSTON M.D. Performed By: #### L IPID, [id number], TSH3 wRFLX #### [facility] [address] [place] [address] Acetaminophen [Mass/volume] in Serum or PlasmaOrdered By: Chucky Dueñas on 10-08-2023 Acetaminophen [Mass/Vol] 0.1 ug/mL 10.0-30.0 [facility] Alanine aminotransferase [En zymatic activity/volume] in Serum or PlasmaOrdered By: Chucky Dueñas on 10-08-2023 ALT [Catalytic activity/Vol] 12 U/L - [facility] Albumin [Mass/volume] in Ser um or Plasma by Bromocresol green (BCG) dye binding methoOrdered By: Chucky Dueñas on 10-08-2023 Albumin BCG dye [Mass/Vol] 3.9 g/dL 3.5-5.7 [facility] Alkaline phosphatase [Enzyma tic activity/volume] in Serum or PlasmaOrdered By: Chucky Dueñas on 10-08-2023 ALP [Catalytic activity/Vol] 57 U/L 34-104 [facility] Ammonia [Moles/volume] in Pl asmaOrdered By: Chucky Dueñas on 10-08-2023 Ammonia (P) [Moles/Vol] 27 umol/L 11-35 [facility] Amphetamine Screen Ql (U)Ord ered By: Chucky Dueñas on 10-08-2023 Amphetamines Ql (U) Positive Negative [facility] Aspartate aminotransferase [ Enzymatic activity/volume] in Serum or PlasmaOrdered By: Chucky Dueñas on 10-08-2023 AST [Catalytic activity/Vol] 16 U/L 13-39 [facility] Automated erythrocytes count in urine sediment (number/area)Ordered By: Chucky Dueñas on 10-08-2023 RBC Auto (Urine sed) [#/Area] 3-4 [HPF] 0-4 [facility] Automated leukocytes count i n urine sediment (number/area)Ordered By: Chucky Dueñas on 10-08-2023 WBC Auto (Urine sed) [#/Area] 10-19 [HPF] 0-4 [facility] Automated urine hyaline cast s count (number/volume)Ordered By: Chucky Dueñas on 10-08-2023 Hyaline casts Auto (U) [#/Vol] None seen [LPF] 0-1 [facility] Barbiturates [Presence] in U rine by Screen methodOrdered By: Chucky Dueñas on 10-08-2023 Barbiturates Screen Ql (U) Negative Negative [facility] Basophils Auto (Bld) [#/Vol] Ordered By: Chucky Dueñas on 10-08-2023 Basophils (Bld) [#/Vol] 0.1 10*3/uL 0.0-0.2 [facility] Basophils/100 WBC Auto (Bld) Ordered By: Chucky Dueñas on 10-08-2023 Basophils/100 WBC (Bld) 0.7 % . F [facility] Benzodiazepines Screen Ql (U )Ordered By: Chucky Dueñas on 10-08-2023 Benzodiazepines Ql (U) Negative [facility] Benzoyle[facility]gonine [Presence] i n Urine by Screen methodOrdered By: Chucky Dueñas on 10-08-2023 Benzoylecgonine Screen Ql (U) Negative Negative [facility] Bilirubin Test strip Ql (U)O rdered By: Chucky Dueñas on 10-08-2023 Bilirubin Ql (U) 1+ Negative [facility] Bilirubin.total [Mass/volume ] in Serum or PlasmaOrdered By: Chucky Dueñas on 10-08-2023 Bilirubin [Mass/Vol] 0.3 mg/dL 0.3-1.0 [facility] Calcium [Mass/volume] in Ser um or PlasmaOrdered By: Chucky Dueñas on 10-08-2023 Calcium [Mass/Vol] 9.0 mg/dL 8.6-10.3 [facility] Cannabinoids [Presence] in U rine by Screen methodOrdered By: Chucky Dueñas on 10-08-2023 Cannabinoids Screen Ql (U) Negative Negative [facility] Comment on above: These are unconfirme d results and should not be used for legal purposes. Drug Cut-Off Concentration: AMPH 1000 ng/mL SARA 200 ng/mL MARTÍNEZ 200 ng/mL COCM 300 ng/mL OP 300 ng/mL PCP 25 ng/mL THC 20 ng/mL Carbon dioxide, total [Moles /volume] in Serum or PlasmaOrdered By: Chucky Dueñas on 10-08-2023 CO2 [Moles/Vol] 24.7 mmol/L 21.0-31.0 [facility] Casts typing in urine sedime nt by light microscopyOrdered By: Chucky Dueñas on 10-08-2023 Casts LM Nom (Urine sed) None seen [LPF] None Seen [facility] Chloride [Moles/volume] in S maris or PlasmaOrdered By: Chucky Dueñas on 10-08-2023 Chloride [Moles/Vol] 105 mmol/L 98-107 [facility] Cholesterol [Mass/volume] in Serum or PlasmaOrdered By: Bobo hSields on 10-08-2023 Cholesterol [Mass/Vol] 151 mg/dL 140-200 [facility] Comment on above: Chol less than 200 m g/dl low riskChol 201-239 mg/dl borderline riskChol 240 mg/dl and greater high risk Cholesterol in LDL Calc [Mas s/Vol]Ordered By: Bobo Shields on 10-08-2023 Cholesterol in LDL [Mass/Vol] 87 mg/dL 0-100 [facility] Comment on above: LDL ATP III CLASSIFI CATIONLDL less than 100 mg/dL OptimalLDL 100-129 mg/dL Near or above optimalLDL 130-159 mg/dL Borderline highLDL 160-189 mg/dL HighLDL greater than 189 mg/dL Very high Cholesterol in VLDL Calc [Ma ss/Vol]Ordered By: Bobo Shields on 10-08-2023 Cholesterol in VLDL [Mass/Vol] 29 mg/dL [facility] Color Auto (U)Ordered By: Aries Dueñas on 10-08-2023 Color (U) Dark yellow Yellow [facility] Complete Blood Count Auto Di ffon 10-08-2023 Basophils (Bld) [#/Vol] 0.1 10*3/uL Normal 0.0-0.2 [facility] Comment on above: Result Comment: PERF ORMED BY: [place] [address] PATHOLOGIST [employer]AN[employer] TECHNICIAN DANYELL LIVINGSTON M.D. Performed By: #### U HCG, URDS, ADDONUAPLUS, CUU #### [facility] [address] Basophils/100 WBC (Bld) 0.7 % Normal . [facility] Comment on above: Performed By: #### U HCG, URDS, ADDONUAPLUS, CUU #### [facility] [address] Eosinophils (Bld) [#/Vol] 0.0 10*3/uL Normal 0.0-0.45 [facility] Comment on above: Performed By: #### U HCG, URDS, ADDONUAPLUS, CUU #### [facility] [address] Eosinophils/100 WBC (Bld) 0.3 % Normal . [facility] Comment on above: Performed By: #### U HCG, URDS, ADDONUAPLUS, CUU #### [address] Erythrocyte distribution width (RBC) [Ratio] 13.0 % Normal 11.9-15.3 [facility] Comment on above: Performed By: #### U HCG, URDS, ADDONUAPLUS, CUU #### [address] Hematocrit (Bld) [Volume fraction] 37.1 % Normal 34.0-46.4 [facility] Comment on above: Performed By: #### U HCG, URDS, ADDONUAPLUS, CUU #### [address] Hemoglobin (Bld) [Mass/Vol] 12.8 g/dL Normal 11.8-15.4 [facility] Comment on above: Performed By: #### U HCG, URDS, ADDONUAPLUS, CUU #### [address] Lymphocytes (Bld) [#/Vol] 3.7 10*3/uL Normal 1.00-4.8 [facility] Comment on above: Performed By: #### U HCG, URDS, ADDONUAPLUS, CUU #### [address] Lymphocytes/100 WBC (Bld) 38.7 % Normal . [facility] Comment on above: Performed By: #### U HCG, URDS, ADDONUAPLUS, CUU #### [address] MCH (RBC) [Entitic mass] 30.3 pg Normal 24.7-34.3 [facility] Comment on above: Performed By: #### U HCG, URDS, ADDONUAPLUS, CUU #### [address] MCV (RBC) [Entitic vol] 87.9 fL Normal 80-100 [facility] Comment on above: Performed By: #### U HCG, URDS, ADDONUAPLUS, CUU #### [address] [place] [address] [place] Mean Corpuscular HGB Conc 34.5 g/dL Normal 32.0-35.0 [facility] Comment on above: Performed By: #### U HCG, URDS, ADDONUAPLUS, CUU #### [facility] [address] Monocytes (Bld) [#/Vol] 0.6 10*3/uL Normal 0.0-0.8 [facility] Comment on above: Performed By: #### U HCG, URDS, ADDONUAPLUS, CUU #### [facility] [address] [place] [address] [place] Monocytes/100 WBC (Bld) 21.04 % High 0.00-20.00 [facility] Comment on above: Result Comment: For adults in ED, MDW > 20.0 may be associated with a higher risk of sepsis during the first 12 hrs of hospital admission Performed By: #### U HCG, URDS, ADDONUAPLUS, CUU #### [facility] [address] [place] [address] [place] Monocytes/100 WBC (Bld) 6.2 % Normal . [facility] Comment on above: Performed By: #### U HCG, URDS, ADDONUAPLUS, CUU #### [facility] [address] [place] [address] [place] Neutrophils (Bld) [#/Vol] 5.1 10*3/uL Normal 1.8-7.7 [facility] Comment on above: Performed By: #### U HCG, URDS, ADDONUAPLUS, CUU #### [facility] [address] [place] [address] [place] Neutrophils/100 WBC (Bld) 54.1 % Normal . [facility] Comment on above: Performed By: #### U HCG, URDS, ADDONUAPLUS, CUU #### [facility] [address] [place] [address] [place] NRBC% 0.2 /100{WBC} Normal 0-0.5 [facility] Comment on above: Performed By: #### U HCG, URDS, ADDONUAPLUS, CUU #### [facility] [address] Platelet mean volume (Bld) [Entitic vol] 8.6 fL Normal 6.3-10.7 [facility] Comment on above: Performed By: #### U HCG, URDS, ADDONUAPLUS, CUU #### [facility] [address] Platelets (Bld) [#/Vol] 371 10*3/uL Normal 150-450 [facility] Comment on above: Performed By: #### U HCG, URDS, ADDONUAPLUS, CUU #### [address] RBC (Bld) [#/Vol] 4.22 10*6/uL Normal 3.60-5.00 [facility] Comment on above: Performed By: #### U HCG, URDS, ADDONUAPLUS, CUU #### [address] WBC (Bld) [#/Vol] 9.5 10*3/uL Normal 3.8-11.6 [facility] Comment on above: Performed By: #### U HCG, URDS, ADDONUAPLUS, CUU #### [address] Comprehensive Metabolic Pane selam 10-08-2023 Albumin [Mass/Vol] 3.9 g/dL Normal 3.5-5.7 [facility] Comment on above: Performed By: #### U HCG, URDS, ADDONUAPLUS, CUU #### [address] Albumin/Globulin [Mass ratio] 1.1 {ratio} Normal [facility] Comment on above: Performed By: #### U HCG, URDS, ADDONUAPLUS, CUU #### [address] ALP [Catalytic activity/Vol] 57 U/L Normal 34-104 [facility] Comment on above: Performed By: #### U HCG, URDS, ADDONUAPLUS, CUU #### [facility] [address] ALT [Catalytic activity/Vol] 12 U/L Normal 7-52 [facility] Comment on above: Performed By: #### U HCG, URDS, ADDONUAPLUS, CUU #### [facility] [address] [place] [address] Anion gap [Moles/Vol] 10.1 mmol/L Normal 6.0-15.0 [facility] Comment on above: Performed By: #### U HCG, URDS, ADDONUAPLUS, CUU #### [address] AST [Catalytic activity/Vol] 16 U/L Normal 13-39 [facility] Comment on above: Performed By: #### U HCG, URDS, ADDONUAPLUS, CUU #### [facility] [address] [place] [address] Bilirubin [Mass/Vol] 0.3 mg/dL Normal 0.3-1.0 [facility] Comment on above: Performed By: #### U HCG, URDS, ADDONUAPLUS, CUU #### [address] Calcium [Mass/Vol] 9.0 mg/dL Normal 8.6-10.3 [facility] Comment on above: Performed By: #### U HCG, URDS, ADDONUAPLUS, CUU #### [facility] [address] [place] [address] Chloride [Moles/Vol] 105 mmol/L Normal 98-107 [facility] Comment on above: Performed By: #### U HCG, URDS, ADDONUAPLUS, CUU #### [facility] [address] [place] [address] CO2 [Moles/Vol] 24.7 mmol/L Normal 21.0-31.0 [facility] Comment on above: Performed By: #### U HCG, URDS, ADDONUAPLUS, CUU #### [facility] [address] Creatinine [Mass/Vol] 0.78 mg/dL Normal 0.60-1.20 [facility] Comment on above: Performed By: #### U HCG, URDS, ADDONUAPLUS, CUU #### [facility] [address] [place] [address] [place] Creatinine Clr Calc Pharmacy 91.55 Normal [facility] Comment on above: Result Comment: PERF ORMED BY: [place] [address] PATHOLOGIST [employer]AN[employer] TECHNICIAN DANYELL LIVINGSTON M.D. Performed By: #### U HCG, URDS, ADDONUAPLUS, CUU #### [address] GFR/1.73 sq M.predicted MDRD (S/P/Bld) [Vol rate/Area] mL/min/{1.73_m2} [facility] Comment on above: Performed By: #### U HCG, URDS, ADDONUAPLUS, CUU #### [address] Globulin (S) [Mass/Vol] 3.4 g/dL Normal [facility] Comment on above: Performed By: #### U HCG, URDS, ADDONUAPLUS, CUU #### [facility] [address] [place] [address] Glucose [Mass/Vol] 98 mg/dL Normal 70-100 [facility] Comment on above: Result Comment: [place] Glucose Reference Range is dependent on time and content of last meal. Glucose of more than 200 mg/dL in a nonstressed, ambulatory subject supports the diagnosis of Diabetes Mellitus. ADA recommended reference range Performed By: #### U HCG, URDS, ADDONUAPLUS, CUU #### [address] Potassium [Moles/Vol] 3.8 mmol/L Normal 3.5-5.1 [facility] Comment on above: Performed By: #### U HCG, URDS, ADDONUAPLUS, CUU #### [facility] [address] [place] [address] Protein [Mass/Vol] 7.3 g/dL Normal 6.4-8.9 [facility] Comment on above: Performed By: #### U HCG, URDS, ADDONUAPLUS, CUU #### [facility] [address] [place] [address] [place] Sodium [Moles/Vol] 136 mmol/L Normal 136-145 [facility] Comment on above: Performed By: #### U HCG, URDS, ADDONUAPLUS, CUU #### [facility] [address] [place] [address] Urea nitrogen [Mass/Vol] 12 mg/dL Normal 7-25 [facility] Comment on above: Performed By: #### U HCG, URDS, ADDONUAPLUS, CUU #### [address] Creatinine [Mass/volume] in Serum or PlasmaOrdered By: Chucky Dueñas on 10-08-2023 Creatinine [Mass/Vol] 0.78 mg/dL 0.60-1.20 [facility] Dipstick and Microscopicon 1 12-09-2022 Appearance (U) Turbid Critically abnormal Clear [facility] Comment on above: Order Comment: Comme nt use er lab draw Performed By: #### L IPID, [id number], TSH3 wRFLX #### [facility] [address] [place] [address] Bacteria,Urine 2+ High None Seen [facility] Comment on above: Order Comment: Comme nt use er lab draw Performed By: #### L IPID, [id number], TSH3 wRFLX #### [facility] [address] [place] [address] [place] Bilirubin,Urine 1+ High Negative [facility] Comment on above: Order Comment: Comme nt use er lab draw Performed By: #### L IPID, [id number], TSH3 wRFLX #### [address] [place] [address] [place] Color (U) Dark Yellow Critically abnormal Yellow [facility] Comment on above: Order Comment: Comme nt use er lab draw Performed By: #### L IPID, [id number], TSH3 wRFLX #### [facility] [address] [place] [address] [place] Glucose Ql (U) Normal Normal Normal [facility] Comment on above: Order Comment: Comme nt use er lab draw Performed By: #### L IPID, [id number], TSH3 wRFLX #### [facility] [address] [place] [address] [place] Hyaline Casts,Urine None Seen Normal 0-1 [facility] Comment on above: Order Comment: Comme nt use er lab draw Performed By: #### L IPID, [id number], TSH3 wRFLX #### [facility] [address] [place] [address] [place] Ketones Ql (U) Trace High Negative [facility] Comment on above: Order Comment: Comme nt use er lab draw Performed By: #### L IPID, [id number], TSH3 wRFLX #### [facility] [address] [place] [address] [place] Leukocyte esterase Test strip Ql (U) 1+ High Negative [facility] Comment on above: Order Comment: Comme nt use er lab draw Performed By: #### L IPID, [id number], TSH3 wRFLX #### [facility] [address] [place] [address] [place] Nitrite,Urine Negative Normal Negative [facility] Comment on above: Order Comment: Comme nt use er lab draw Performed By: #### L IPID, [id number], TSH3 wRFLX #### [facility] [address] [place] [address] [place] Occult Blood,Urine 3+ High Negative [facility] Comment on above: Order Comment: Comme nt use er lab draw Performed By: #### L IPID, [id number], TSH3 wRFLX #### [facility] [address] [place] [address] [place] Other Casts,Urine None Seen Normal None Seen [facility] Comment on above: Order Comment: Comme nt use er lab draw Performed By: #### L IPID, [id number], TSH3 wRFLX #### [facility] [address] [place] [address] pH (U) 5.5 [pH] Normal 5.0-9.0 [facility] Comment on above: Order Comment: Comme nt use er lab draw Performed By: #### L IPID, [id number], TSH3 wRFLX #### [facility] [address] [place] [address] Protein (U) [Mass/Vol] 100 mg/dL High Negative [facility] Comment on above: Order Comment: Comme nt use er lab draw Performed By: #### L IPID, [id number], TSH3 wRFLX #### [facility] [address] [place] [address] [place] RBC,Urine 3-4 Normal 0-4 [facility] Comment on above: Order Comment: Comme nt use er lab draw Performed By: #### L IPID, [id number], TSH3 wRFLX #### [facility] [address] [place] [address] Specificy [place],Urine 1.036 High 1.001-1.030 [facility] Comment on above: Order Comment: Comme nt use er lab draw Performed By: #### L IPID, [id number], TSH3 wRFLX #### [facility] [address] [place] [address] [place] Squamous Epithelial Cell,Urine Innumerable High 0-2 [facility] Comment on above: Order Comment: Comme nt use er lab draw Performed By: #### L IPID, [id number], TSH3 wRFLX #### [facility] [address] [place] [address] [place] Urobilinogen,Urine Normal Normal Normal [facility] Comment on above: Order Comment: Comme nt use er lab draw Performed By: #### L IPID, [id number], TSH3 wRFLX #### [facility] [address] [place] [address] [place] WBC,Urine 10-19 High 0-4 [facility] Comment on above: Order Comment: Comme nt use er lab draw Performed By: #### L IPID, [id number], TSH3 wRFLX #### [facility] [address] [place] [address] [place] Yeast,Urine None Seen Normal None Seen [facility] Comment on above: Order Comment: Comme nt use er lab draw Performed By: #### L IPID, [id number], TSH3 wRFLX #### [address] Drug Screen,Urineon 10-08-20 23 Amphetamine Screen,Urine Positive High Negative [facility] Comment on above: Performed By: #### L IPID, [id number], TSH3 wRFLX #### [address] Barbiturate Screen,Urine Negative Normal Negative [facility] Comment on above: Performed By: #### L IPID, [id number], TSH3 wRFLX #### [facility] [address] [place] [address] Benzodiazepines Screen,Urine Negative Normal Negative [facility] Comment on above: Performed By: #### L IPID, [id number], TSH3 wRFLX #### [facility] [address] [place] [address] Cannabinoid Screen,Urine Negative Normal Negative [facility] Comment on above: Result Comment: Thes e are unconfirmed results and should not be used for legal purposes. Drug Cut-Off Concentration: AMPH 1000 ng/mL SARA 200 ng/mL MARTÍNEZ 200 ng/mL COCM 300 ng/mL OP 300 ng/mL PCP 25 ng/mL THC 20 ng/mL PERFORMED BY: [place] [address] PATHOLOGIST [employer]UST[employer]ANING TECHNICIAN DANYELL LIVINGSTON M.D. Performed By: #### L IPID, [id number], TSH3 wRFLX #### [address] [place] [address] [place] Cocaine Screen,Urine Negative Normal Negative [facility] Comment on above: Performed By: #### L IPID, [id number], TSH3 wRFLX #### [facility] [address] Opiate Screen,Urine Negative Normal Negative [facility] Comment on above: Performed By: #### L IPID, [id number], TSH3 wRFLX #### [facility] [address] Phencyclidine Screen,Urine Negative Normal Negative [facility] Comment on above: Performed By: #### L IPID, [id number], TSH3 wRFLX #### [facility] [address] [place] [address] Eosinophils Auto (Bld) [#/Vo l]Ordered By: Chucky Dueñas on 10-08-2023 Eosinophils (Bld) [#/Vol] 0.0 10*3/uL 0.0-0.45 [facility] Eosinophils/100 WBC Auto (Bl d)Ordered By: Chucky Dueñas on 10-08-2023 Eosinophils/100 WBC (Bld) 0.3 % . [facility] Erythrocyte distribution wid th Auto (RBC) [Ratio]Ordered By: Chucky Dueñas on 10-08-2023 Erythrocyte distribution width (RBC) [Ratio] 13.0 % 11.9-15.3 [facility] Ethanol [Mass/volume] in Ser um or PlasmaOrdered By: Chucky Dueñas on 10-08-2023 Ethanol [Mass/Vol] mg/dL [facility] Ethanol [Mass/Vol] TNP [facility] Comment on above: Test not performed Ethyl Alcohol Profileon 09-12 Ethanol [Mass/Vol] mg/dL Normal [facility] Comment on above: Performed By: #### U HCG, URDS, ADDONUAPLUS, CUU #### [facility] [address] [place] [address] [place] Percent Ethanol Not performed Normal [facility] Comment on above: Result Comment: PERF ORMED BY: [place] [address] PATHOLOGIST [employer] CLEANING TECHNICIAN DANYELL LIVINGSTON M.D. Performed By: #### U HCG, URDS, ADDONUAPLUS, CUU #### [facility] [address] [place] [address] Globulin Calc (S) [Mass/Vol] Ordered By: Chucky Dueñas on 10-08-2023 Globulin (S) [Mass/Vol] 3.4 g/dL [facility] Glucose [Mass/volume] in Ser um or PlasmaOrdered By: Chucky Dueñas on 10-08-2023 Glucose [Mass/Vol] 98 mg/dL 70-100 [facility] Comment on above: ADA recommended refe rence rangeRandom Glucose Reference Range is dependent on time and content of last meal. Glucose of more than 200 mg/dL in a nonstressed, ambulatory subject supports the diagnosis of Diabetes Mellitus. HCG ( test) IA.rapi d Ql (U)Ordered By: Chucky Dueñas on 10-08-2023 HCG ( test) Ql (U) Negative [facility] HCG,Urineon 10-08-2023 Beta HCG ( test) Ql (U) Negative Normal [facility] Comment on above: Order Comment: Comme nt use er lab draw Result Comment: PERF ORMED BY: [place] [address] PATHOLOGIST [employer] CLEANING TECHNICIAN DANYELL LIVINGSTON M.D. Performed By: #### L IPID, [id number], TSH3 wRFLX #### [facility] [address] [place], [place] [id number] [facility] Hematocrit Auto (Bld) [Volum e fraction]Ordered By: Chucky Dueñas on 10-08-2023 Hematocrit (Bld) [Volume fraction] 37.1 % 34.0-46.4 [facility] Hemoglobin [Mass/volume] in BloodOrdered By: Chucky Dueñas on 10-08-2023 Hemoglobin (Bld) [Mass/Vol] 12.8 g/dL 11.8-15.4 [facility] Ketones Auto test strip (U) [Mass/Vol]Ordered By: Chucky Dueñas on 10-08-2023 Ketones (U) [Mass/Vol] Trace Negative [facility] Leukocytes [#/volume] correc neema for nucleated erythrocytes in Blood by Automated counOrdered By: Chucky Dueñas on 10-08-2023 WBC corrected for nucl RBC Auto (Bld) [#/Vol] 9.5 10*3/uL 3.8-11.6 [facility] Lipid Panelon 10-08-2023 Cholesterol [Mass/Vol] 151 mg/dL Normal 140-200 [facility] Comment on above: Order Comment: Comme nt use er lab draw Result Comment: Chol less than 200 mg/dl low risk Chol 201-239 mg/dl borderline risk Chol 240 mg/dl and greater high risk Performed By: #### L IPID, [id number], TSH3 wRFLX #### [facility] [address] Cholesterol in HDL [Mass/Vol] 35 mg/dL Normal 23-92 [facility] Comment on above: Order Comment: Comme nt use er lab draw Result Comment: HDL CHOL ATP-III CLASSIFICATION Cardiovascular Risk HDL > or equal to 60 mg/dL LOW HDL < 40 mg/dL HIGH Performed By: #### L IPID, [id number], TSH3 wRFLX #### [facility] [address] [place] [address] [place] Cholesterol.total/Andra sterol in HDL [Mass ratio] 4.3 {ratio} Normal <5.0 [facility] Comment on above: Order Comment: Comme nt use er lab draw Performed By: #### L IPID, [id number], TSH3 wRFLX #### [facility] [address] [place] [id number] [place] LDL Cholesterol,Calculated 87 mg/dL Normal 0-100 [facility] Comment on above: Order Comment: Comme nt use er lab draw Result Comment: LDL ATP III CLASSIFICATION LDL less than 100 mg/dL Optimal LDL 100-129 mg/dL Near or above optimal LDL 130-159 mg/dL Borderline high LDL 160-189 mg/dL High LDL greater than 189 mg/dL Very high Performed By: #### L IPID, [id number], TSH3 wRFLX #### [facility] [address] Triglyceride w/Reflex 147 mg/dL Normal 0-149 [facility] Comment on above: Order Comment: Comme nt use er lab draw Result Comment: TRIG ATP III CLASSIFICATION TRIG less than 150 mg/dL Normal TRIG 150-199 mg/dL Borderline high TRIG 200-500 mg/dL High TRIG greater than 500 mg/dL Very high Standard traceable to the Center for Disease Conrtrol and Prevention (CDC) test method. Performed By: #### L IPID, [id number], TSH3 wRFLX #### [facility] [address] VLDL CHOLESTEROL 29 mg/dL Normal [facility] Comment on above: Order Comment: Comme nt use er lab draw Performed By: #### L IPID, [id number], TSH3 wRFLX #### [facility] [address] Lymphocytes Auto (Bld) [#/Vo l]Ordered By: Chucky Dueñas on 10-08-2023 Lymphocytes (Bld) [#/Vol] 3.7 10*3/uL 1.00-4.8 [facility] Lymphocytes/100 WBC Auto (Bl d)Ordered By: Chucky Dueñas on 10-08-2023 Lymphocytes/100 WBC (Bld) 38.7 % . [facility] MCH Auto (RBC) [Entitic mass ]Ordered By: Chucky Dueñas on 10-08-2023 MCH (RBC) [Entitic mass] 30.3 pg 24.7-34.3 [facility] MCHC Auto (RBC) [Mass/Vol]Or dered By: Chucky Dueñas on 10-08-2023 MCHC (RBC) [Mass/Vol] 34.5 g/dL 32.0-35.0 [facility] MCV Auto (RBC) [Entitic vol] Ordered By: Chucky Dueñas on 10-08-2023 MCV (RBC) [Entitic vol] 87.9 fL 80-100 [facility] Monocyte distribution width [Entitic volume] in Blood by AutomatedOrdered By: Chucky Dueñas on 10-08-2023 Monocyte distribution width Auto (Bld) [Entitic vol] 21.04 % 0.00-20.00 [facility] Comment on above: For adults in ED, MD W > 20.0 may be associated with a higher risk of sepsis during the first 12 hrs of hospital admission Monocytes Auto (Bld) [#/Vol] Ordered By: Chucky Dueñas on 10-08-2023 Monocytes (Bld) [#/Vol] 0.6 10*3/uL 0.0-0.8 [facility] Monocytes/100 WBC Auto (Bld) Ordered By: Chucky Dueñas on 10-08-2023 Monocytes/100 WBC (Bld) 6.2 % . [facility] Neutrophils Auto (Bld) [#/Vo l]Ordered By: Chucky Dueñas on 10-08-2023 Neutrophils (Bld) [#/Vol] 5.1 10*3/uL 1.8-7.7 [facility] Neutrophils/100 WBC Auto (Bl d)Ordered By: Chucky Dueñas on 10-08-2023 Neutrophils/100 WBC (Bld) 54.1 % . [facility] Nitrite Test strip Ql (U)Ord ered By: Chucky Dueñas on 10-08-2023 Nitrite Ql (U) Negative Negative [facility] No Panel InformationOrdered By: Chucky Dueñas on 10-08-2023 Estimated GFR (CKD-EPI) > 60.0 mL/Min [facility] Creatinine Clearance (Chem 91.55 [facility] Nucleated erythrocytes [Pres ence] in Blood by Automated countOrdered By: Chucky Dueñas on 10-08-2023 Nucleated RBC Auto Ql (Bld) 0.2 /100{WBC} 0-0.5 [facility] Opiates [Presence] in Urine by Screen methodOrdered By: Chucky Dueñas on 10-08-2023 Opiates Screen Ql (U) Negative Negative [facility] Phencyclidine Screen Ql (U)O rdered By: Chucky Dueñas on 10-08-2023 Phencyclidine Ql (U) Negative Negative [facility] Platelet mean volume Auto (B ld) [Entitic vol]Ordered By: Chucky Dueñas on 10-08-2023 Platelet mean volume (Bld) [Entitic vol] 8.6 fL 6.3-10.7 [facility] Platelets Auto (Bld) [#/Vol] Ordered By: Chucky Dueñas on 10-08-2023 Platelets (Bld) [#/Vol] 371 10*3/uL 150-450 [facility] Potassium [Moles/volume] in Serum or PlasmaOrdered By: Chucky Dueñas on 10-08-2023 Potassium [Moles/Vol] 3.8 mmol/L 3.5-5.1 [facility] Protein Auto test strip (U) [Mass/Vol]Ordered By: Chucky Dueñas on 10-08-2023 Protein (U) [Mass/Vol] 100 mg/dL Negative [facility] Protein [Mass/volume] in Ser um or PlasmaOrdered By: Chucky Dueañs on 10-08-2023 Protein [Mass/Vol] 7.3 g/dL 6.4-8.9 [facility] RBC Auto (Bld) [#/Vol]Ordere d By: Chucky Dueñas on 10-08-2023 RBC (Bld) [#/Vol] 4.22 10*6/uL 3.60-5.00 [facility] Salicylates [Mass/volume] in Serum or PlasmaOrdered By: Chucky Dueñas on 10-08-2023 Salicylates [Mass/Vol] mg/dL 15.0-30.0 [facility] Comment on above: Patients treated wit h Sulfasalazine may generate a false high result for Salicylate. Serum or plasma albumin/glob ulin mass ratioOrdered By: Chucky Dueñas on 10-08-2023 Albumin/Globulin [Mass ratio] 1.1 {ratio} [facility] Serum or plasma anion gap de terminationOrdered By: Chucky Dueñas on 10-08-2023 Anion gap [Moles/Vol] 10.1 mmol/L 6.0-15.0 [facility] Serum or plasma high density lipoprotein (HDL) cholesterol measurementOrdered By: Bobo Shields on 10-08-2023 Cholesterol in HDL [Mass/Vol] 35 mg/dL 23- [facility] Comment on above: HDL CHOL ATP-III CLA SSIFICATION Cardiovascular RiskHDL > or equal to 60 mg/dL LOWHDL < 40 mg/dL HIGH Serum or plasma total choles terol/high density lipoprotein (HDL) cholesterol mass ratOrdered By: Bobo Shields on 10-08-2023 Cholesterol.total/Andra sterol in HDL [Mass ratio] 4.3 {ratio} <5.0 [facility] Sodium [Moles/volume] in Ser um or PlasmaOrdered By: Chucky Dueñas on 10-08-2023 Sodium [Moles/Vol] 136 mmol/L 136-145 [facility] Specific gravity Auto test s trip (U) [Rel density]Ordered By: Chucky Dueñas on 10-08-2023 Specific gravity (U) [Rel density] 1.036 1.001-1.030 [facility] Squamous epithelial cells de tection in urine sediment by light microscopyOrdered By: Chucky Dueñas on 10-08-2023 Epithelial cells.squamous LM Ql (Urine sed) Innumerable [HPF] 0-2 [facility] Thyroid Stim Hormone w/Rflxo n 10-08-2023 Thyroid Stim Hormone w/Rflx 2.23 u[iU]/mL Normal 0.45-5.33 [facility] Comment on above: Order Comment: Comme nt use er lab draw Performed By: #### L IPID, [id number], [id number] [id number] #### [facility] [address] Thyrotropin [Units/volume] i n Serum or PlasmaOrdered By: Bobo Shields on 10-08-2023 TSH Qn 2.23 m[IU]/L 0.45-5.33 [facility] Triglyceride [Mass/volume] i n Serum or PlasmaOrdered By: Bobo Shields on 10-08-2023 Triglyceride [Mass/Vol] 147 mg/dL 0-149 [facility] Comment on above: TRIG ATP III CLASSIF ICATIONTRIG less than 150 mg/dL NormalTRIG 150-199 mg/dL Borderline highTRIG 200-500 mg/dL High TRIG greater than 500 mg/dL Very highStandard traceable to the Center for Disease Conrtrol and Prevention (CDC) test method. Urea nitrogen [Mass/volume] in Serum or PlasmaOrdered By: Chucky Dueñas on 10-08-2023 Urea nitrogen [Mass/Vol] 12 mg/dL 7-25 [facility] Urine Cultureon 12-28-2023 Bacteria identified Cx Nom (U) No Growth 2 Days PERFORMED BY: [place] [address] PATHOLOGIST INDUSTRIAL CLEANING TECHNICIAN DANYELL LIVINGSTON M.D. [facility] Comment on above: Performed By: #### L IPID, [id number], [id number] [id number] #### [facility] [address] Urine bacteria detection by automated methodOrdered By: Chucky Dueñas on 10-08-2023 Bacteria Auto Ql (U) 2+ None Seen [facility] Urine clarity by refractomet ry automatedOrdered By: Chucky Dueñas on 10-08-2023 Clarity Refractometry automated (U) Turbid Clear [facility] Urine culture routineOrdered By: Chucky Dueñas on 10-08-2023 Bacteria identified Cx Nom (U) No Growth 2 Days [facility] Urine glucose measurement by automated test strip (mass/volume)Ordered By: Chcuky Dueñas on 10-08-2023 Glucose Auto test strip (U) [Mass/Vol] Normal mg/dL Normal [facility] Urine hemoglobin detection b y automated test stripOrdered By: Chucky Dueñas on 10-08-2023 Hemoglobin Auto test strip Ql (U) 3+ Negative [facility] Urine leukocyte esterase det ection by automated test stripOrdered By: Chucky Dueñas on 10-08-2023 Leukocyte esterase Auto test strip Ql (U) 1+ Negative [facility] Urobilinogen Auto test strip (U) [Mass/Vol]Ordered By: Chucky Dueñas on 10-08-2023 Urobilinogen (U) [Mass/Vol] Normal mg/dL Normal [facility] Valproate [Mass/volume] in S maris or PlasmaOrdered By: Chucky Dueñas on 10-08-2023 Valproate [Mass/Vol] ug/mL 50.0-100.0 [facility] Comment on above: Last dose: - Vitamin D 25 Hydroxy Totalon 10-08-2023 Vitamin D 25 Hydroxy Total 11.9 ng/mL Low 30-100 [facility] Comment on above: Order Comment: Comme [...] practice guideline. JCEM. 2010; 96(7):1911-. PERFORMED BY: [facility] [address] [place] [address] PATHOLOGIST INDUSTRIAL CLEANING TECHNICIAN DANYELL LIVINGSTON M.D. Performed By: #### L IPID, [id number], TSH3 [id number] #### [facility] [address] Vitamin D+Metabolites [Mass/ volume] in Serum or PlasmaOrdered By: Bobo Shields on 10-08-2023 Vitamin D+Metabolites [Mass/Vol] 11.9 ng/mL 30-100 [facility] Comment on above: Hemolysis is present [...] 10-08-2023 WBC (Bld) [#/Vol] 9.5 10*3/uL 3.8-11.6 [facility] Yeast detection in urine sed iment by light microscopyOrdered By: Chucky Dueñas on 10-08-2023 Yeast LM Ql (Urine sed) None seen [HPF] None Se en [facility] pH Auto test strip (U)Ordere d By: Chucky Dueñas on 10-08-2023 pH (U) 5.5 [pH] 5.0-9.0 [facility] Patient Letter FTMCon 2022 Patient Letter [facility] [place] [address] [place] [id number] September 24, 2023 LORNA DEUTSCH [address] [place] [id number] : 1985 To whom it may concern, [...] office with any questions or concerns at [phone]. Respectfully, ERNESTINE Deshpande [facility] Consent for Treatmenton 08-14 Consent for Treatment [id number] .00TIFF [facility] Discharge Instructionson Discharge Instructions [id number] #1.00TIFF [facility] ED Clinical Summaryon 2022 ED Clinical Summary [address] [address] ED Clinical Summary Person Information Name: LORNA DEUTSCH Annabel/[facility] Age: 38 Years : 1985 Sex: Female Language: [place] PCP: Cris PENA CNP Marital Status: Visit [...] 09/10/2023 15:57:53 09/10/2023 15:57:53 09/10/2023 15:57:53 ADDRESS: [address] [place] [phone] PHYS DOC NOTES: MEDICAL INFORMATION: Prescriptions Given: [...] With: Address: When: Cris PENA [address] [phone] Business (1) In 3 days 09/13/2023 DIAGNOSIS: Anxiety state Normal [facility] ED Note-Physicianon 09-10-20 ED Note-Physician Basic Information [...] Information Cris PENA In 3 days 09/13/2023 [facility] [address] [id number] [facility] (1) Additional Instructions: Patient Education Generalized Anxiety Disorder, Adult Attestation Patient seen and evaluated by the physician outpatient physical therapist assistant. Attending physician was present in the emergency department and supervised care. This visit was performed by both the physician and an APC. I performed all aspects of the MDM as documented. This report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 38 / F ADM Date: 07/02/23 Loc: Room: [address] [place] [address] Type: ADM IN Attending Dr: Bobo Shields [...] : 429 ms Sinus bradycardia with short TX Otherwise normal ECG When compared with ECG of 14-JAN-2023 07:10, No significant change was found Confirmed by HUBER RAMOS FACC, BRITNI ([id number]) on 07/03/2023 12:33:59 PM Referred By: Electronically Signed By:BRITNI NGO MD FACC Transcribed By: MUS Signed By Britni Ngo MD, FACC 07/03/23 1234 Normal [facility] Lipid Panelon 07-03-2023 Cholesterol [Mass/Vol] 179 mg/dL Normal 140-200 [facility] Comment on above: Result Comment: Chol less than 200 mg/dl low risk Chol 201-239 mg/dl borderline risk Chol 240 mg/dl and greater high risk Performed By: #### L IPID, [id number], TSH3 wRFLX #### [facility] [address] Cholesterol in HDL [Mass/Vol] 40 mg/dL Normal 23-92 [facility] Comment on above: Result Comment: HDL CHOL ATP-III CLASSIFICATION Cardiovascular Risk HDL > or equal to 60 mg/dL LOW HDL < 40 mg/dL HIGH Performed By: #### L IPID, [id number], TSH3 wRFLX #### [facility] [address] [place], [place] [address] Cholesterol.total/Andra sterol in HDL [Mass ratio] 4.5 {ratio} Normal <5.0 [facility] Comment on above: Performed By: #### L IPID, [id number], TSH3 wRFLX #### [facility] [address] [place] [id number] [place] LDL Cholesterol,Calculated 111 mg/dL High 0-100 [facility] Comment on above: Result Comment: LDL ATP III CLASSIFICATION LDL less than 100 mg/dL Optimal LDL 100-129 mg/dL Near or above optimal LDL 130-159 mg/dL Borderline high LDL 160-189 mg/dL High LDL greater than 189 mg/dL Very high Performed By: #### L IPID, [id number], TSH3 wRFLX #### [facility] [address] [place] [address] [place] Triglyceride w/Reflex 138 mg/dL Normal 0-149 [facility] Comment on above: Result Comment: TRIG ATP III CLASSIFICATION TRIG less than 150 mg/dL Normal TRIG 150-199 mg/dL Borderline high TRIG 200-500 mg/dL High TRIG greater than 500 mg/dL Very high Standard traceable to the Center for Disease Conrtrol and Prevention (CDC) test method. Performed By: #### L IPID, [id number], TSH3 wRFLX #### [facility] [address] VLDL CHOLESTEROL 27 mg/dL Normal [facility] Comment on above: Performed By: #### L IPID, [id number], TSH3 wRFLX #### [facility] [address] Serum or plasma high density lipoprotein (HDL) cholesterol measurementOrdered By: Bobo Shields on 07-03-2023 Cholesterol in HDL [Mass/Vol] 40 mg/dL [facility] Comment on above: HDL CHOL ATP-III CLA SSIFICATION Cardiovascular RiskHDL > or equal to 60 mg/dL LOWHDL < 40 mg/dL HIGH Serum or plasma total choles terol/high density lipoprotein (HDL) cholesterol mass ratOrdered By: Bobo Shields on 07-03-2023 Cholesterol.total/Andra sterol in HDL [Mass ratio] 4.5 {ratio} <5.0 [facility] Thyroid Stim Hormone w/Rflxo n 07-03-2023 Thyroid Stim Hormone w/Rflx 5.18 u[iU]/mL Normal 0.45-5.33 [facility] Comment on above: Performed By: #### L IPID, [id number], TSH3 wRFLX #### [facility] [address] [place] [address] Thyrotropin [Units/volume] i n Serum or PlasmaOrdered By: Bobo Shields on 07-03-2023 TSH Qn 5.18 m[IU]/L 0.45-5.33 [facility] Triglyceride [Mass/volume] i n Serum or PlasmaOrdered By: Bobo Shields on 07-03-2023 Triglyceride [Mass/Vol] 138 mg/dL 0-149 [facility] Comment on above: TRIG ATP III CLASSIF ICATIONTRIG less than 150 mg/dL NormalTRIG 150-199 mg/dL Borderline highTRIG 200-500 mg/dL High TRIG greater than 500 mg/dL Very highStandard traceable to the Center for Disease Conrtrol and Prevention (CDC) test method. Vitamin D 25 Hydroxy Totalon 07-03-2023 Vitamin D 25 Hydroxy Total 17.2 ng/mL Low 30-100 [facility] Comment on above: Result Comment: KAVON MIN D STATUS 25([place])VITAMIN D RANGE (ng/mL) Deficient <20 Insufficient 20 to <30 Sufficient 30 to 100 Reference: Stephanie Guardado, Ro CORONEL et al. Evaluation,treatment, and prevention of vitamin D deficiency; an Endocrine Society clinical practice guideline. JCEM. 2010; 96(7):1911-30. PERFORMED BY: [place] [address] PATHOLOGIST INDUSTRIAL CLEANING TECHNICIAN DANYELL LIVINGSTON M.D. Performed By: #### L IPID, [id number], TSH3 wRFLX #### [address] Vitamin D+Metabolites [Mass/ volume] in Serum or PlasmaOrdered By: Bobo Shields on 07-03-2023 Vitamin D+Metabolites [Mass/Vol] 17.2 ng/mL 30-100 [facility] Comment on above: VITAMIN D STATUS 25( [place])VITAMIN D RANGE (ng/mL) Deficient <20 Insufficient 20 to <30Sufficient 30 to 100Reference: Stephanie Guardado, Ro CORONEL, et al. Evaluation,treatment, and prevention of vitamin D deficiency; an Endocrine Society clinical practice guideline. JCEM. 2010; 96(7):1911-30. Loni 06-17-2023 CNPN Telephone (PAINTW) LORNA DEUTSCH ([id number]) 1985 F [place] Date Time Provider Department 06/17/23 AKBAR KOCH PAINTW During your visit today, we recorded the [...] N/A Person calling: self Call patient at: [phone] Was an appointment scheduled: Gaurav Obrien OCCA 06/17/2023 1:34 PM Signed Please advise thank you CLARA Aguilar June 17, 2023 1:34 PM Marvin Sanchez 06/18/2023 1:59 PM Signed The patient called back to ask if the script could be sent to another pharmacy. 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 Assessed Reason for Visit: Medication [...] Status:Closed by GAURAV TORREZ on 06/17/23 Normal [facility] Alanine aminotransferase [En zymatic activity/volume] in Serum or PlasmaOrdered By: Luis Armando Hendrix on 06-08-2023 ALT [Catalytic activity/Vol] 7 U/L 7-52 [facility] Albumin [Mass/volume] in Ser um or Plasma by Bromocresol green (BCG) dye binding methoOrdered By: Luis Armnado Hendrix on 06-08-2023 Albumin BCG dye [Mass/Vol] 3.6 g/dL 3.5-5.7 [facility] Alkaline phosphatase [Enzyma tic activity/volume] in Serum or PlasmaOrdered By: Luis Armando Hendrix on 06-08-2023 ALP [Catalytic activity/Vol] 35 U/L 34-104 [facility] Amphetamine Screen Ql (U)Ord ered By: Luis Armando Hendrix on 06-08-2023 Amphetamines Ql (U) Negative Negative [facility] Aspartate aminotransferase [ Enzymatic activity/volume] in Serum or PlasmaOrdered By: Luis Armadno Hendrix on 06-08-2023 AST [Catalytic activity/Vol] 9 U/L 13-39 [facility] Automated erythrocytes count in urine sediment (number/area)Ordered By: Luis Armando Hendrix on 06-08-2023 RBC Auto (Urine sed) [#/Area] 1-2 [HPF] 0-4 [facility] Automated leukocytes count i n urine sediment (number/area)Ordered By: Luis Armando Hendrix on 06-08-2023 WBC Auto (Urine sed) [#/Area] Innumerable [HPF] 0-4 [facility] Barbiturates [Presence] in U rine by Screen methodOrdered By: Luis Armando Hendrix on 06-08-2023 Barbiturates Screen Ql (U) Negative Negative [facility] Basophils Auto (Bld) [#/Vol] Ordered By: Luis Armando Hendrix on 06-08-2023 Basophils (Bld) [#/Vol] 0.0 10*3/uL 0.0-0.2 [facility] Basophils/100 WBC Auto (Bld) Ordered By: Luis Armando Hendrix on 06-08-2023 Basophils/100 WBC (Bld) 0.7 % . [facility] Benzodiazepines Screen Ql (U )Ordered By: Luis Armando Hendrix on 06-08-2023 Benzodiazepines Ql (U) Negative Negative [facility] Benzoylecgonine [Presence] i n Urine by Screen methodOrdered By: Luis Armando Hendrix on 06-08-2023 Benzoylecgonine Screen Ql (U) Negative Negative [facility] Bilirubin Test strip Ql (U)O rdered By: Luis Armando Hendrix on 06-08-2023 Bilirubin Ql (U) Negative Negative [facility] Bilirubin.total [Mass/volume ] in Serum or PlasmaOrdered By: Luis Armando Hendrix on 06-08-2023 Bilirubin [Mass/Vol] 0.3 mg/dL 0.3-1.0 [facility] Calcium [Mass/volume] in Ser um or PlasmaOrdered By: Luis Armando Hendrix on 06-08-2023 Calcium [Mass/Vol] 8.9 mg/dL 8.6-10.3 [facility] Cannabinoids [Presence] in U rine by Screen methodOrdered By: Luis Armando Hendrix on 06-08-2023 Cannabinoids Screen Ql (U) Negative Negative [facility] Comment on above: These are unconfirme d results and should not be used for legal purposes. Drug Cut-Off Concentration: AMPH 1000 ng/mL SARA 200 ng/mL MARTÍNEZ 200 ng/mL COCM 300 ng/mL OP 300 ng/mL PCP 25 ng/mL THC 20 ng/mL Carbon dioxide, total [Moles /volume] in Serum or PlasmaOrdered By: Luis Armando Hendrix on 06-08-2023 CO2 [Moles/Vol] 31.1 mmol/L 21.0-31.0 [facility] Chloride [Moles/volume] in S maris or PlasmaOrdered By: Luis Armando Hendrix on 06-08-2023 Chloride [Moles/Vol] 106 mmol/L 98-107 [facility] Color Auto (U)Ordered By: Angelic Hendrix on 06-08-2023 Color (U) Yellow Yellow [facility] Complete Blood Count Auto Di ffon 06-08-2023 Basophils (Bld) [#/Vol] 0.0 10*3/uL Normal 0.0-0.2 [facility] Comment on above: Result Comment: PERF ORMED BY: [place] [address] PATHOLOGIST INDUSTRIAL CLEANING TECHNICIAN DANYELL LIVINGSTON M.D. Performed By: #### U HCG, URDS, ADDONUAPLUS, CUU #### [facility] [address] Basophils/100 WBC (Bld) 0.7 % Normal . [facility] Comment on above: Performed By: #### U HCG, URDS, ADDONUAPLUS, CUU #### [facility] [address] Eosinophils (Bld) [#/Vol] 0.1 10*3/uL Normal 0.0-0.45 [facility] Comment on above: Performed By: #### U HCG, URDS, ADDONUAPLUS, CUU #### [facility] [address] [place] [address] [place] Eosinophils/100 WBC (Bld) 2.2 % Normal . [facility] Comment on above: Performed By: #### U HCG, URDS, ADDONUAPLUS, CUU #### [facility] [address] Erythrocyte distribution width (RBC) [Ratio] 13.5 % Normal 11.9-15.3 [facility] Comment on above: Performed By: #### U HCG, URDS, ADDONUAPLUS, CUU #### [facility] [address] [place] [address] Hematocrit (Bld) [Volume fraction] 39.0 % Normal 34.0-46.4 [facility] Comment on above: Performed By: #### U HCG, URDS, ADDONUAPLUS, CUU #### [address] Hemoglobin (Bld) [Mass/Vol] 13.0 g/dL Normal 11.8-15.4 [facility] Comment on above: Performed By: #### U HCG, URDS, ADDONUAPLUS, CUU #### [address] Lymphocytes (Bld) [#/Vol] 3.0 10*3/uL Normal 1.00-4.8 [facility] Comment on above: Performed By: #### U HCG, URDS, ADDONUAPLUS, CUU #### [address] Lymphocytes/100 WBC (Bld) 58.8 % Normal . [facility] Comment on above: Performed By: #### U HCG, URDS, ADDONUAPLUS, CUU #### [address] MCH (RBC) [Entitic mass] 30.0 pg Normal 24.7-34.3 [facility] Comment on above: Performed By: #### U HCG, URDS, ADDONUAPLUS, CUU #### [address] MCV (RBC) [Entitic vol] 89.7 fL Normal 80-100 [facility] Comment on above: Performed By: #### U HCG, URDS, ADDONUAPLUS, CUU #### [address] Mean Corpuscular HGB Conc 33.4 g/dL Normal 32.0-35.0 [facility] Comment on above: Performed By: #### U HCG, URDS, ADDONUAPLUS, CUU #### [facility] [address] [place] [address] [place] Monocytes (Bld) [#/Vol] 0.5 10*3/uL Normal 0.0-0.8 [facility] Comment on above: Performed By: #### U HCG, URDS, ADDONUAPLUS, CUU #### [facility] [address] [place] [address] [place] Monocytes/100 WBC (Bld) 19.94 % Normal 0.00-20.00 [facility] Comment on above: Performed By: #### U HCG, URDS, ADDONUAPLUS, CUU #### [facility] [address] [place] [address] Monocytes/100 WBC (Bld) 9.4 % Normal . [facility] Comment on above: Performed By: #### U HCG, URDS, ADDONUAPLUS, CUU #### [facility] [address] [place] [address] Neutrophils (Bld) [#/Vol] 1.5 10*3/uL Low 1.8-7.7 [facility] Comment on above: Performed By: #### U HCG, URDS, ADDONUAPLUS, CUU #### [facility] [address] [place] [address] [place] Neutrophils/100 WBC (Bld) 28.9 % Normal . [facility] Comment on above: Performed By: #### U HCG, URDS, ADDONUAPLUS, CUU #### [facility] [address] [place] [address] [place] NRBC% 0.1 /100{WBC} Normal 0-0.5 [facility] Comment on above: Performed By: #### U HCG, URDS, ADDONUAPLUS, CUU #### [facility] [address] [place] [address] Platelet mean volume (Bld) [Entitic vol] 9.2 fL Normal 6.3-10.7 [facility] Comment on above: Performed By: #### U HCG, URDS, ADDONUAPLUS, CUU #### [facility] [address] Platelets (Bld) [#/Vol] 164 10*3/uL Normal 150-450 [facility] Comment on above: Performed By: #### U HCG, URDS, ADDONUAPLUS, CUU #### [facility] [address] RBC (Bld) [#/Vol] 4.35 10*6/uL Normal 3.60-5.00 [facility] Comment on above: Performed By: #### U HCG, URDS, ADDONUAPLUS, CUU #### [facility] [address] WBC (Bld) [#/Vol] 5.1 10*3/uL Normal 3.8-11.6 [facility] Comment on above: Performed By: #### U HCG, URDS, ADDONUAPLUS, CUU #### [facility] [address] [place] [address] Comprehensive Metabolic Pane selam 06-08-2023 Albumin [Mass/Vol] 3.6 g/dL Normal 3.5-5.7 [facility] Comment on above: Performed By: #### U HCG, URDS, ADDONUAPLUS, CUU #### [facility] [address] [place] [address] Albumin/Globulin [Mass ratio] 1.2 {ratio} Normal [facility] Comment on above: Performed By: #### U HCG, URDS, ADDONUAPLUS, CUU #### [facility] [address] [place] [address] ALP [Catalytic activity/Vol] 35 U/L Normal 34-104 [facility] Comment on above: Performed By: #### U HCG, URDS, ADDONUAPLUS, CUU #### [facility] [address] ALT [Catalytic activity/Vol] 7 U/L Normal 7-52 [facility] Comment on above: Performed By: #### U HCG, URDS, ADDONUAPLUS, CUU #### [facility] [address] [place] [address] Anion gap [Moles/Vol] 6.7 mmol/L Normal 6.0-15.0 [facility] Comment on above: Performed By: #### U HCG, URDS, ADDONUAPLUS, CUU #### [facility] [address] [place] [address] AST [Catalytic activity/Vol] 9 U/L Low 13-39 [facility] Comment on above: Performed By: #### U HCG, URDS, ADDONUAPLUS, CUU #### [address] Bilirubin [Mass/Vol] 0.3 mg/dL Normal 0.3-1.0 [facility] Comment on above: Performed By: #### U HCG, URDS, ADDONUAPLUS, CUU #### [address] Calcium [Mass/Vol] 8.9 mg/dL Normal 8.6-10.3 [facility] Comment on above: Performed By: #### U HCG, URDS, ADDONUAPLUS, CUU #### [address] Chloride [Moles/Vol] 106 mmol/L Normal 98-107 [facility] Comment on above: Performed By: #### U HCG, URDS, ADDONUAPLUS, CUU #### [address] CO2 [Moles/Vol] 31.1 mmol/L High 21.0-31.0 [facility] Comment on above: Performed By: #### U HCG, URDS, ADDONUAPLUS, CUU #### [address] Creatinine [Mass/Vol] 0.66 mg/dL Normal 0.60-1.20 [facility] Comment on above: Performed By: #### U HCG, URDS, ADDONUAPLUS, CUU #### [facility] [address] [place] [address] [place] Creatinine Clr Calc Pharmacy 104.00 Normal [facility] Comment on above: Result Comment: PERF ORMED BY: [place] [address] PATHOLOGIST INDUSTRIAL CLEANING TECHNICIAN DANYELL LIVINGSTON M.D. Performed By: #### U HCG, URDS, ADDONUAPLUS, CUU #### [facility] [address] GFR/1.73 sq M.predicted MDRD (S/P/Bld) [Vol rate/Area] mL/min/{1.73_m2} [facility] Comment on above: Performed By: #### U HCG, URDS, ADDONUAPLUS, CUU #### [facility] [address] Globulin (S) [Mass/Vol] 2.9 g/dL Normal [facility] Comment on above: Performed By: #### U HCG, URDS, ADDONUAPLUS, CUU #### [address] Glucose [Mass/Vol] 90 mg/dL Normal 70-100 [facility] Comment on above: Result Comment: [place] Glucose Reference Range is dependent on time and content of last meal. Glucose of more than 200 mg/dL in a nonstressed, ambulatory subject supports the diagnosis of Diabetes Mellitus. ADA recommended reference range Performed By: #### U HCG, URDS, ADDONUAPLUS, CUU #### [facility] [address] [place] [address] Potassium [Moles/Vol] 3.8 mmol/L Normal 3.5-5.1 [facility] Comment on above: Performed By: #### U HCG, URDS, ADDONUAPLUS, CUU #### [facility] [address] Protein [Mass/Vol] 6.5 g/dL Normal 6.4-8.9 [facility] Comment on above: Performed By: #### U HCG, URDS, ADDONUAPLUS, CUU #### [facility] [address] Sodium [Moles/Vol] 140 mmol/L Normal 136-145 [facility] Comment on above: Performed By: #### U HCG, URDS, ADDONUAPLUS, CUU #### [facility] [address] Urea nitrogen [Mass/Vol] 17 mg/dL Normal 7-25 [facility] Comment on above: Performed By: #### U HCG, URDS, ADDONUAPLUS, CUU #### [facility] [address] [place] [address] Creatinine [Mass/volume] in Serum or PlasmaOrdered By: Luis Armando Hendrix on 06-08-2023 Creatinine [Mass/Vol] 0.66 mg/dL 0.60-1.20 [facility] Dipstick and Microscopicon 0 06-08-2023 Appearance (U) Turbid Critically abnormal Clear [facility] Comment on above: Order Comment: Name Collection Type:: Clean-Voided Midstream Performed By: #### U HCG, URDS, ADDONUAPLUS, CUU #### [facility] [address] [place] [address] Bacteria,Urine 4+ High None Seen [facility] Comment on above: Order Comment: Name Collection Type:: Clean-Voided Midstream Performed By: #### U HCG, URDS, ADDONUAPLUS, CUU #### [facility] [address] [place] [address] [place] Bilirubin,Urine Negative Normal Negative [facility] Comment on above: Order Comment: Name Collection Type:: Clean-Voided Midstream Performed By: #### U HCG, URDS, ADDONUAPLUS, CUU #### [facility] [address] [place] [address] Color (U) Yellow Normal Yellow [facility] Comment on above: Order Comment: Name Collection Type:: Clean-Voided Midstream Performed By: #### U HCG, URDS, ADDONUAPLUS, CUU #### [facility] [address] [place] [address] Glucose Ql (U) Normal Normal Normal [facility] Comment on above: Order Comment: Name Collection Type:: Clean-Voided Midstream Performed By: #### U HCG, URDS, ADDONUAPLUS, CUU #### [facility] [address] [place] [address] Hyaline Casts,Urine 0-8 Normal 0-8 [facility] Comment on above: Order Comment: Name Collection Type:: Clean-Voided Midstream Performed By: #### U HCG, URDS, ADDONUAPLUS, CUU #### [facility] [address] [place] [address] Ketones Ql (U) Negative Normal Negative [facility] Comment on above: Order Comment: Name Collection Type:: Clean-Voided Midstream Performed By: #### U HCG, URDS, ADDONUAPLUS, CUU #### [facility] [address] [place] [address] Leukocyte esterase Test strip Ql (U) 4+ High Negative [facility] Comment on above: Order Comment: Name Collection Type:: Clean-Voided Midstream Performed By: #### U HCG, URDS, ADDONUAPLUS, CUU #### [address] Nitrite,Urine Positive High Negative [facility] Comment on above: Order Comment: Name Collection Type:: Clean-Voided Midstream Performed By: #### U HCG, URDS, ADDONUAPLUS, CUU #### [facility] [address] [place] [address] Occult Blood,Urine Trace High Negative [facility] Comment on above: Order Comment: Name Collection Type:: Clean-Voided Midstream Result Comment: PERF ORMED BY: [place] [address] PATHOLOGIST INDUST[employer]AL CLEANING TECHNICIAN DANYELL LIVINGSTON M.D. Performed By: #### U HCG, URDS, ADDONUAPLUS, CUU #### [place] [address] [place] pH (U) 6.0 [pH] Normal 5.0-9.0 [facility] Comment on above: Order Comment: Name Collection Type:: Clean-Voided Midstream Performed By: #### U HCG, URDS, ADDONUAPLUS, CUU #### [facility] [address] [place] [address] Protein,Urine Trace High Negative [facility] Comment on above: Order Comment: Name Collection Type:: Clean-Voided Midstream Performed By: #### U HCG, URDS, ADDONUAPLUS, CUU #### [facility] [address] [place] [address] RBC,Urine 1-2 Normal 0-4 [facility] Comment on above: Order Comment: Name Collection Type:: Clean-Voided Midstream Performed By: #### U HCG, URDS, ADDONUAPLUS, CUU #### [facility] [address] [place] [address] Specificy [place],Urine 1.018 Normal 1.001-1.030 [facility] Comment on above: Order Comment: Name Collection Type:: Clean-Voided Midstream Performed By: #### U HCG, URDS, ADDONUAPLUS, CUU #### [facility] [address] [place] [address] Squamous Epithelial Cell,Urine 10-19 High 0-2 [facility] Comment on above: Order Comment: Name Collection Type:: Clean-Voided Midstream Performed By: #### U HCG, URDS, ADDONUAPLUS, CUU #### [facility] [address] [place] [address] Urobilinogen,Urine Normal Normal Normal [facility] Comment on above: Order Comment: Name Collection Type:: Clean-Voided Midstream Performed By: #### U HCG, URDS, ADDONUAPLUS, CUU #### [facility] [address] [place] [address] WBC,Urine Innumerable High 0-4 [facility] Comment on above: Order Comment: Name Collection Type:: Clean-Voided Midstream Performed By: #### U HCG, URDS, ADDONUAPLUS, CUU #### [facility] [address] [place] [address] [place] Yeast,Urine None Seen Normal None Seen [facility] Comment on above: Order Comment: Name Collection Type:: Clean-Voided Midstream Result Comment: PERF ORMED BY: [place] [address] PATHOLOGIST INDUSTRIAL CLEANING TECHNICIAN DANYELL LIVINGSTON M.D. Performed By: #### U HCG, URDS, ADDONUAPLUS, CUU #### [facility] [address] [place] [address] [place] Drug Screen,Urineon 06-08-20 Amphetamine Screen,Urine Negative Normal Negative [facility] Comment on above: Performed By: #### U HCG, URDS, ADDONUAPLUS, CUU #### [facility] [address] [place] [address] [place] Barbiturate Screen,Urine Negative Normal Negative [facility] Comment on above: Performed By: #### U HCG, URDS, ADDONUAPLUS, CUU #### [facility] [address] [place] [address] Benzodiazepines Screen,Urine Negative Normal Negative [facility] Comment on above: Performed By: #### U HCG, URDS, ADDONUAPLUS, CUU #### [facility] [address] [place] [address] Cannabinoid Screen,Urine Negative Normal Negative [facility] Comment on above: Result Comment: Thes e are unconfirmed results and should not be used for legal purposes. Drug Cut-Off Concentration: AMPH 1000 ng/mL SARA 200 ng/mL MARTÍNEZ 200 ng/mL COCM 300 ng/mL OP 300 ng/mL PCP 25 ng/mL THC 20 ng/mL PERFORMED BY: [place] [address] PATHOLOGIST INDUSTRIAL CLEANING TECHNICIAN DANYELL LIVINGSTON M.D. Performed By: #### U HCG, URDS, ADDONUAPLUS, CUU #### [facility] [address] [place] [address] [place] Cocaine Screen,Urine Negative Normal Negative [facility] Comment on above: Performed By: #### U HCG, URDS, ADDONUAPLUS, CUU #### [facility] [address] Opiate Screen,Urine Negative Normal Negative [facility] Comment on above: Performed By: #### U HCG, URDS, ADDONUAPLUS, CUU #### [facility] [address] Phencyclidine Screen,Urine Negative Normal Negative [facility] Comment on above: Performed By: #### U HCG, URDS, ADDONUAPLUS, CUU #### [facility] [address] [place] [address] [place] Eosinophils Auto (Bld) [#/Vo l]Ordered By: Luis Armando Hendrix on 06-08-2023 Eosinophils (Bld) [#/Vol] 0.1 10*3/uL 0.0-0.45 [facility] Eosinophils/100 WBC Auto (Bl d)Ordered By: Luis Armando Hendrix on 06-08-2023 Eosinophils/100 WBC (Bld) 2.2 % . [facility] Erythrocyte distribution wid th Auto (RBC) [Ratio]Ordered By: Luis Armando Hendrix on 06-08-2023 Erythrocyte distribution width (RBC) [Ratio] 13.5 % 11.9-15.3 [facility] Ethanol [Mass/volume] in Ser um or PlasmaOrdered By: Luis Armando Hendrix on 06-08-2023 Ethanol [Mass/Vol] mg/dL [facility] Ethanol [Mass/Vol] TNP [facility] Comment on above: Test not performed Ethyl Alcohol Profileon 05-13 Ethanol [Mass/Vol] mg/dL Normal [facility] Comment on above: Performed By: #### U HCG, URDS, ADDONUAPLUS, CUU #### [facility] [address] [place] [address] [place] Percent Ethanol Not performed Normal [facility] Comment on above: Result Comment: PERF ORMED BY: [place] [address] PATHOLOGIST INDUSTRIAL CLEANING TECHNICIAN DANYELL LIVINGSTON M.D. Performed By: #### U HCG, URDS, ADDONUAPLUS, CUU #### [facility] [address] [place] [address] Globulin Calc (S) [Mass/Vol] Ordered By: Luis Armando Hendrix on 06-08-2023 Globulin (S) [Mass/Vol] 2.9 g/dL [facility] Glucose [Mass/volume] in Ser um or PlasmaOrdered By: Luis Armando Hendrix on 06-08-2023 Glucose [Mass/Vol] 90 mg/dL 70-100 [facility] Comment on above: ADA recommended refe rence rangeRandom Glucose Reference Range is dependent on time and content of last meal. Glucose of more than 200 mg/dL in a nonstressed, ambulatory subject supports the diagnosis of Diabetes Mellitus. HCG ( test) IA.rapi d Ql (U)Ordered By: Luis Armando Hendrix on 06-08-2023 HCG ( test) Ql (U) Negative [facility] HCG,Urineon 06-08-2023 Beta HCG ( test) Ql (U) Negative Normal [facility] Comment on above: Result Comment: PERF ORMED BY: [place] [address] PATHOLOGIST INDUSTRIAL CLEANING TECHNICIAN DANYELL LIVINGSTON M.D. Performed By: #### U HCG, URDS, ADDONUAPLUS, CUU #### [address] Hematocrit Auto (Bld) [Volum e fraction]Ordered By: Luis Armando Hendrix on 06-08-2023 Hematocrit (Bld) [Volume fraction] 39.0 % 34.0-46.4 [facility] Hemoglobin [Mass/volume] in BloodOrdered By: Luis Armando Hendrix on 06-08-2023 Hemoglobin (Bld) [Mass/Vol] 13.0 g/dL 11.8-15.4 [facility] Ketones Auto test strip (U) [Mass/Vol]Ordered By: Luis Armando Hendrix on 06-08-2023 Ketones (U) [Mass/Vol] Negative Negative [facility] - UrinalysisOrder ed By: Luis Armando Hendrix on 06-08-2023 Hyaline casts LM Ql (Urine sed) 0-8 [LPF] 0-8 [facility] Leukocytes [#/volume] correc neema for nucleated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 [facility] [address] [place] [address] [place] Basophils/100 WBC (Bld) 0.4 % Normal . [facility] Comment on above: Performed By: #### E FLOWER CMP, CBC #### [facility] [address] [place] [address] [place] Eosinophils (Bld) [#/Vol] 0.1 10*3/uL Normal 0.0-0.45 [facility] Comment on above: Performed By: #### E FLOWER, CMP, CBC #### [facility] [address] [place] [address] [place] Eosinophils/100 WBC (Bld) 0.9 % Normal . [facility] Comment on above: Performed By: #### E FLOWER, CMP, CBC #### [facility] [address] [place] [address] [place] Erythrocyte distribution width (RBC) [Ratio] 14.0 % Normal 11.9-15.3 [facility] Comment on above: Performed By: #### E FLOWER, CMP, CBC #### [facility] [address] Hematocrit (Bld) [Volume fraction] 39.9 % Normal 34.0-46.4 [facility] Comment on above: Performed By: #### E FLOWER CMP, CBC #### [facility] [address] Hemoglobin (Bld) [Mass/Vol] 13.4 g/dL Normal 11.8-15.4 [facility] Comment on above: Performed By: #### E FLOWER CMP, CBC #### [address] Lymphocytes (Bld) [#/Vol] 2.8 10*3/uL Normal 1.00-4.8 [facility] Comment on above: Performed By: #### E MICHELLE CRENSHAW, CBC #### [address] Lymphocytes/100 WBC (Bld) 29.7 % Normal . [facility] Comment on above: Performed By: #### E MICHELLE CRENSHAW, CBC #### [address] MCH (RBC) [Entitic mass] 31.0 pg Normal 24.7-34.3 [facility] Comment on above: Performed By: #### E MICHELLE CRENSHAW, CBC #### [address] MCV (RBC) [Entitic vol] 92.6 fL Normal 80-100 [facility] Comment on above: Performed By: #### E MICHELLE CRENSHAW, CBC #### [facility] [address] [place] [address] Mean Corpuscular HGB Conc 33.5 g/dL Normal 32.0-35.0 [facility] Comment on above: Performed By: #### E FLOWER CMP, CBC #### [facility] [address] [place] [address] Monocytes (Bld) [#/Vol] 0.5 10*3/uL Normal 0.0-0.8 [facility] Comment on above: Performed By: #### E MICHELLE CRENSHAW, CBC #### [facility] [address] [place] [address] [place] Monocytes/100 WBC (Bld) 20.22 % High 0.00-20.00 [facility] Comment on above: Result Comment: For adults in ED, MDW > 20.0 may be associated with a higher risk of sepsis during the first 12 hrs of hospital admission Performed By: #### E MICHELLE CRENSHAW, CBC #### [facility] [address] [place] [address] [place] Monocytes/100 WBC (Bld) 5.0 % Normal . [facility] Comment on above: Performed By: #### E MICHELLE CRENSHAW, CBC #### [facility] [address] Neutrophils (Bld) [#/Vol] 6.1 10*3/uL Normal 1.8-7.7 [facility] Comment on above: Performed By: #### E MICHELLE CRENSHAW, CBC #### [facility] [address] [place] [address] [place] Neutrophils/100 WBC (Bld) 64.0 % Normal . [facility] Comment on above: Performed By: #### E MICHELLE CRENSHAW, CBC #### [facility] [address] [place] [address] [place] NRBC% 0.1 /100{WBC} Normal 0-0.5 [facility] Comment on above: Performed By: #### E MICHELLE CRENSHAW, CBC #### [facility] [address] [place] [address] [place] Platelet mean volume (Bld) [Entitic vol] 8.5 fL Normal 6.3-10.7 [facility] Comment on above: Performed By: #### E MICHELLE CRENSHAW, CBC #### [facility] [address] [place] [address] [place] Platelets (Bld) [#/Vol] 252 10*3/uL Normal 150-450 [facility] Comment on above: Performed By: #### E MICHELLE CRENSHAW, CBC #### [facility] [address] RBC (Bld) [#/Vol] 4.31 10*6/uL Normal 3.60-5.00 [facility] Comment on above: Performed By: #### E MICHELLE CRENSHAW, CBC #### [facility] [address] [place] [address] WBC (Bld) [#/Vol] 9.5 10*3/uL Normal 3.8-11.6 [facility] Comment on above: Performed By: #### E MICHELLE CRENSHAW, CBC #### [facility] [address] [place] [address] Comprehensive Metabolic Pane selam 02-03-2023 Albumin [Mass/Vol] 3.8 g/dL Normal 3.5-5.7 [facility] Comment on above: Performed By: #### E MICHELLE CRENSHAW, CBC #### [facility] [address] [place] [address] Albumin/Globulin [Mass ratio] 1.3 {ratio} Normal [facility] Comment on above: Performed By: #### E MICHELLE CRENSHAW, CBC #### [facility] [address] [place] [address] ALP [Catalytic activity/Vol] 34 U/L Normal 34-104 [facility] Comment on above: Performed By: #### E MICHELLE CRENSHAW, CBC #### [facility] [address] [place] [address] ALT [Catalytic activity/Vol] 7 U/L Normal 7-52 [facility] Comment on above: Performed By: #### E MICHELLE CRENSHAW, CBC #### [facility] [address] [place] [address] Anion gap [Moles/Vol] 9.3 mmol/L Normal 6.0-15.0 [facility] Comment on above: Performed By: #### E MICHELLE CRENSHAW, CBC #### [facility] [address] [place] [address] AST [Catalytic activity/Vol] 13 U/L Normal 13-39 [facility] Comment on above: Performed By: #### E MICHELLE CRENSHAW, CBC #### [facility] [address] [place] [address] [place] Bilirubin [Mass/Vol] 0.3 mg/dL Normal 0.3-1.0 [facility] Comment on above: Performed By: #### E FLOWER CMP, CBC #### [facility] [address] [place] [address] [place] Calcium [Mass/Vol] 8.4 mg/dL Low 8.6-10.3 [facility] Comment on above: Performed By: #### E MICHELLE CRENSHAW, CBC #### [facility] [address] Chloride [Moles/Vol] 104 mmol/L Normal 98-107 [facility] Comment on above: Performed By: #### E MICHELLE CRENSHAW, CBC #### [facility] [address] CO2 [Moles/Vol] 27.6 mmol/L Normal 21.0-31.0 [facility] Comment on above: Performed By: #### E MICHELLE CRENSHAW, CBC #### [facility] [address] [place] [address] [place] Creatinine [Mass/Vol] 0.77 mg/dL Normal 0.60-1.20 [facility] Comment on above: Performed By: #### E MICHELLE CRENSHAW, CBC #### [facility] [address] [place] [address] [place] Creatinine Clr Calc Pharmacy 89.14 [facility] Comment on above: Result Comment: PERF ORMED BY: [place] [address] PATHOLOGIST INDUSTRIAL CLEANING TECHNICIAN DANYELL LIVINGSTON M.D. Performed By: #### E MICHELLE CRENSHAW, CBC #### [facility] [address] [place] [address] [place] GFR/1.73 sq M.predicted MDRD (S/P/Bld) [Vol rate/Area] mL/min/{1.73_m2} [facility] Comment on above: Performed By: #### E MICHELLE CRENSHAW, CBC #### [facility] [address] [place] [address] [place] Globulin (S) [Mass/Vol] 3.0 g/dL Normal F [facility] Comment on above: Performed By: #### E MICHELLE CRENSHAW, CBC #### [facility] [address] Glucose [Mass/Vol] 83 mg/dL Normal 70-100 [facility] Comment on above: Result Comment: [facility] Glucose Reference Range is dependent on time and content of last meal. Glucose of more than 200 mg/dL in a nonstressed, ambulatory subject supports the diagnosis of Diabetes Mellitus. ADA recommended reference range Performed By: #### E MICHELLE CRENSHAW, CBC #### [facility] [address] Potassium [Moles/Vol] 3.9 mmol/L Normal 3.5-5.1 [facility] Comment on above: Performed By: #### E MICHELLE CRENSHAW, CBC #### [facility] [address] [place] [id number] [place] Protein [Mass/Vol] 6.8 g/dL Normal 6.4-8.9 [facility] Comment on above: Performed By: #### E MICHELLE CRENSHAW, CBC #### [facility] [address] [place] [id number] [place] Sodium [Moles/Vol] 137 mmol/L Normal 136-145 [facility] Comment on above: Performed By: #### E MICHELLE CRENSHAW, CBC #### [facility] [address] [place] [id number] [place] Urea nitrogen [Mass/Vol] 17 mg/dL Normal 7-25 [facility] Comment on above: Performed By: #### E MICHELLE CRENSHAW, CBC #### [facility] [address] [place] [id number] [place] Creatinine [Mass/volume] in Serum or PlasmaOrdered By: Leonard Salazar on 02-03-2023 Creatinine [Mass/Vol] 0.77 mg/dL 0.60-1.20 [facility] Dipstick and Microscopicon 0 02-03-2023 Appearance (U) Cloudy Critically abnormal Clear [facility] Comment on above: Order Comment: Name Collection Type:: Clean-Voided Midstream Performed By: #### U HCG, URDS, ADDONUAPLUS, CUU #### [facility] [address] [place] [address] Bacteria,Urine 1+ High None Seen [facility] Comment on above: Order Comment: Name Collection Type:: Clean-Voided Midstream Performed By: #### U HCG, URDS, ADDONUAPLUS, CUU #### [facility] [address] [place] [address] [place] Bilirubin,Urine Negative Normal Negative [facility] Comment on above: Order Comment: Name Collection Type:: Clean-Voided Midstream Performed By: #### U HCG, URDS, ADDONUAPLUS, CUU #### [facility] [address] [place] [address] [place] Color (U) Yellow Normal Yellow [facility] Comment on above: Order Comment: Name Collection Type:: Clean-Voided Midstream Performed By: #### U HCG, URDS, ADDONUAPLUS, CUU #### [facility] [address] [place] [address] [place] Glucose Ql (U) Normal Normal Normal [facility] Comment on above: Order Comment: Name Collection Type:: Clean-Voided Midstream Performed By: #### U HCG, URDS, ADDONUAPLUS, CUU #### [facility] [address] [place] [address] [place] Hyaline Casts,Urine None Seen Normal 0-1 [facility] Comment on above: Order Comment: Name Collection Type:: Clean-Voided Midstream Performed By: #### U HCG, URDS, ADDONUAPLUS, CUU #### [facility] [address] [place] [address] [place] Ketones Ql (U) Trace High Negative [facility] Comment on above: Order Comment: Name Collection Type:: Clean-Voided Midstream Performed By: #### U HCG, URDS, ADDONUAPLUS, CUU #### [facility] [address] [place] [address] Leukocyte esterase Test strip Ql (U) 1+ High Negative [facility] Comment on above: Order Comment: Name Collection Type:: Clean-Voided Midstream Performed By: #### U HCG, URDS, ADDONUAPLUS, CUU #### [facility] [address] [place] [address] Nitrite,Urine Negative Normal Negative [facility] Comment on above: Order Comment: Name Collection Type:: Clean-Voided Midstream Performed By: #### U HCG, URDS, ADDONUAPLUS, CUU #### [address] Occult Blood,Urine Negative Normal Negative [facility] Comment on above: Order Comment: Name Collection Type:: Clean-Voided Midstream Performed By: #### U HCG, URDS, ADDONUAPLUS, CUU #### [address] Other Casts,Urine None Seen Normal None Seen [facility] Comment on above: Order Comment: Name Collection Type:: Clean-Voided Midstream Performed By: #### U HCG, URDS, ADDONUAPLUS, CUU #### [address] pH (U) 7.5 [pH] Normal 5.0-9.0 [facility] Comment on above: Order Comment: Name Collection Type:: Clean-Voided Midstream Performed By: #### U HCG, URDS, ADDONUAPLUS, CUU #### [facility] [address] [place] [address] Protein,Urine Negative Normal Negative [facility] Comment on above: Order Comment: Name Collection Type:: Clean-Voided Midstream Performed By: #### U HCG, URDS, ADDONUAPLUS, CUU #### [facility] [address] [place] [address] RBC,Urine 1-2 Normal 0-4 [facility] Comment on above: Order Comment: Name Collection Type:: Clean-Voided Midstream Performed By: #### U HCG, URDS, ADDONUAPLUS, CUU #### [facility] [address] [place] [address] Specificy [place],Urine 1.025 Normal 1.001-1.030 [facility] Comment on above: Order Comment: Name Collection Type:: Clean-Voided Midstream Performed By: #### U HCG, URDS, ADDONUAPLUS, CUU #### [facility] [address] [place] [address] Squamous Epithelial Cell,Urine 20-30 High 0-2 [facility] Comment on above: Order Comment: Name Collection Type:: Clean-Voided Midstream Performed By: #### U HCG, URDS, ADDONUAPLUS, CUU #### [address] Urobilinogen,Urine Normal Normal Normal [facility] Comment on above: Order Comment: Name Collection Type:: Clean-Voided Midstream Performed By: #### U HCG, URDS, ADDONUAPLUS, CUU #### [facility] [address] [place] [address] WBC,Urine 5-9 High 0-4 [facility] Comment on above: Order Comment: Name Collection Type:: Clean-Voided Midstream Performed By: #### U HCG, URDS, ADDONUAPLUS, CUU #### [facility] [address] [place] [address] Drug Screen,Urineon 02-04-20 23 Amphetamine Screen,Urine Positive High Negative [facility] Comment on above: Performed By: #### U HCG, URDS, ADDONUAPLUS, CUU #### [address] Barbiturate Screen,Urine Negative Normal Negative [facility] Comment on above: Performed By: #### U HCG, URDS, ADDONUAPLUS, CUU #### [address] Benzodiazepines Screen,Urine Negative Normal Negative [facility] Comment on above: Performed By: #### U HCG, URDS, ADDONUAPLUS, CUU #### [facility] [address] [place] [address] Cannabinoid Screen,Urine Negative Normal Negative [facility] Comment on above: Result Comment: Thes e are unconfirmed results and should not be used for legal purposes. Drug Cut-Off Concentration: AMPH 1000 ng/mL SARA 200 ng/mL MARTÍNEZ 200 ng/mL COCM 300 ng/mL OP 300 ng/mL PCP 25 ng/mL THC 20 ng/mL PERFORMED BY: [place] [address] PATHOLOGIST [employer] TECHNICIAN DANYELL LIVINGSTON M.D. Performed By: #### U HCG, URDS, ADDONUAPLUS, CUU #### [address] Cocaine Screen,Urine Negative Normal Negative [facility] Comment on above: Performed By: #### U HCG, URDS, ADDONUAPLUS, CUU #### [address] Opiate Screen,Urine Negative Normal Negative [facility] Comment on above: Performed By: #### U HCG, URDS, ADDONUAPLUS, CUU #### [address] Phencyclidine Screen,Urine Negative Normal Negative [facility] Comment on above: Performed By: #### U HCG, URDS, ADDONUAPLUS, CUU #### [address] Eosinophils Auto (Bld) [#/Vo l]Ordered By: Leonard Salazar on 02-03-2023 Eosinophils (Bld) [#/Vol] 0.1 10*3/uL 0.0-0.45 [facility] Eosinophils/100 WBC Auto (Bl d)Ordered By: Leonard Salazar on 02-03-2023 Eosinophils/100 WBC (Bld) 0.9 % . [facility] Erythrocyte distribution wid th Auto (RBC) [Ratio]Ordered By: Leonard Salazar on 02-03-2023 Erythrocyte distribution width (RBC) [Ratio] 14.0 % 11.9-15.3 [facility] Ethanol [Mass/volume] in Ser um or PlasmaOrdered By: Leonard Salazar on 02-03-2023 Ethanol [Mass/Vol] mg/dL [facility] Ethanol [Mass/Vol] TNP [facility] Comment on above: Test not performed Ethyl Alcohol Profileon 01-11 Ethanol [Mass/Vol] mg/dL Normal [facility] Comment on above: Performed By: #### E FLOWER, CMP, CBC #### [facility] [address] Percent Ethanol Not performed Normal [facility] Comment on above: Result Comment: PERF ORMED BY: [place] [address] PATHOLOGIST [employer] TECHNICIAN DANYELL LIVINGSTON M.D. Performed By: #### E FLOWER, CMP, CBC #### [facility] [address] Globulin Calc (S) [Mass/Vol] Ordered By: Leonard Salazar on 02-03-2023 Globulin (S) [Mass/Vol] 3.0 g/dL [facility] Glucose [Mass/volume] in Ser um or PlasmaOrdered By: Leonard Salazar on 02-03-2023 Glucose [Mass/Vol] 83 mg/dL 70-100 [facility] Comment on above: ADA recommended refe rence rangeRandom Glucose Reference Range is dependent on time and content of last meal. Glucose of more than 200 mg/dL in a nonstressed, ambulatory subject supports the diagnosis of Diabetes Mellitus. HCG ( test) IA.rapi d Ql (U)Ordered By: Leonard Salazar on 02-03-2023 HCG ( test) Ql (U) Negative [facility] HCG,Urineon 02-03-2023 Beta HCG ( test) Ql (U) Negative Normal [facility] Comment on above: Order Comment: Name Collection Type:: Clean-Voided Midstream Result Comment: PERF ORMED BY: [place] [address] PATHOLOGIST [employer] TECHNICIAN DANYELL LIVINGSTON M.D. Performed By: #### U HCG, URDS, ADDONUAPLUS, CUU #### [facility] [address] Hematocrit Auto (Bld) [Volum e fraction]Ordered By: Leonard Salazar on 02-03-2023 Hematocrit (Bld) [Volume fraction] 39.9 % 34.0-46.4 [facility] Hemoglobin [Mass/volume] in BloodOrdered By: Leonard Salazar on 02-03-2023 Hemoglobin (Bld) [Mass/Vol] 13.4 g/dL 11.8-15.4 [facility] Ketones Auto test strip (U) [Mass/Vol]Ordered By: Leonard Salazar on 02-03-2023 Ketones (U) [Mass/Vol] Trace Negative [facility] Leukocytes [#/volume] correc neema for nucleated erythrocytes in Blood by Automated counOrdered By: Leonard Salazar on 02-03-2023 WBC corrected for nucl RBC Auto (Bld) [#/Vol] 9.5 10*3/uL 3.8-11.6 [facility] Lymphocytes Auto (Bld) [#/Vo l]Ordered By: Leonard Salazar on 02-03-2023 Lymphocytes (Bld) [#/Vol] 2.8 10*3/uL 1.00-4.8 [facility] Lymphocytes/100 WBC Auto (Bl d)Ordered By: Leonard Salazar on 02-03-2023 Lymphocytes/100 WBC (Bld) 29.7 % . [facility] MCH Auto (RBC) [Entitic mass ]Ordered By: Leonard Salazar on 02-03-2023 MCH (RBC) [Entitic mass] 31.0 pg 24.7-34.3 [facility] MCHC Auto (RBC) [Mass/Vol]Or dered By: Leonard Salazar on 02-03-2023 MCHC (RBC) [Mass/Vol] 33.5 g/dL 32.0-35.0 [facility] MCV Auto (RBC) [Entitic vol] Ordered By: Leonard Salazar on 02-03-2023 MCV (RBC) [Entitic vol] 92.6 fL 80-100 [facility] Monocyte distribution width [Entitic volume] in Blood by AutomatedOrdered By: Leonard Salazar on 02-03-2023 Monocyte distribution width Auto (Bld) [Entitic vol] 20.22 % 0.00-20.00 [facility] Comment on above: For adults in ED, MD W > 20.0 may be associated with a higher risk of sepsis during the first 12 hrs of hospital admission Monocytes Auto (Bld) [#/Vol] Ordered By: Leonard Salazar on 02-03-2023 Monocytes (Bld) [#/Vol] 0.5 10*3/uL 0.0-0.8 [facility] Monocytes/100 WBC Auto (Bld) Ordered By: Leonard Salazar on 02-03-2023 Monocytes/100 WBC (Bld) 5.0 % . [facility] Neutrophils Auto (Bld) [#/Vo l]Ordered By: Leonard Salazar on 02-03-2023 Neutrophils (Bld) [#/Vol] 6.1 10*3/uL 1.8-7.7 [facility] Neutrophils/100 WBC Auto (Bl d)Ordered By: Leonard Salazar on 02-03-2023 Neutrophils/100 WBC (Bld) 64.0 % . [facility] Nitrite Test strip Ql (U)Ord ered By: Leonard Salazar on 02-03-2023 Nitrite Ql (U) Negative Negative [facility] No Panel InformationOrdered By: Leonard Salazar on 02-03-2023 Estimated GFR (CKD-EPI) > 60.0 mL/Min [facility] Creatinine Clearance (Chem 89.14 [facility] Nucleated erythrocytes [Pres ence] in Blood by Automated countOrdered By: Leonard Salazar on 02-03-2023 Nucleated RBC Auto Ql (Bld) 0.1 /100{WBC} 0-0.5 [facility] Opiates [Presence] in Urine by Screen methodOrdered By: Leonard Salazar on 02-03-2023 Opiates Screen Ql (U) Negative Negative [facility] Phencyclidine Screen Ql (U)O rdered By: Leonard Salazar on 02-03-2023 Phencyclidine Ql (U) Negative Negative [facility] Platelet mean volume Auto (B ld) [Entitic vol]Ordered By: Leonard Salazar on 02-03-2023 Platelet mean volume (Bld) [Entitic vol] 8.5 fL 6.3-10.7 [facility] Platelets Auto (Bld) [#/Vol] Ordered By: Leonard Salazar on 02-03-2023 Platelets (Bld) [#/Vol] 252 10*3/uL 150-450 [facility] Potassium [Moles/volume] in Serum or PlasmaOrdered By: Leonard Salazar on 02-03-2023 Potassium [Moles/Vol] 3.9 mmol/L 3.5-5.1 [facility] Protein Auto test strip (U) [Mass/Vol]Ordered By: Leonard Salazar on 02-03-2023 Protein (U) [Mass/Vol] Negative Negative [facility] Protein [Mass/volume] in Ser um or PlasmaOrdered By: Leonard Salazar on 02-03-2023 Protein [Mass/Vol] 6.8 g/dL 6.4-8.9 [facility] RBC Auto (Bld) [#/Vol]Ordere d By: Leonard Salazar on 02-03-2023 RBC (Bld) [#/Vol] 4.31 10*6/uL 3.60-5.00 [facility] Serum or plasma albumin/glob ulin mass ratioOrdered By: Leonard Salazar on 02-03-2023 Albumin/Globulin [Mass ratio] 1.3 {ratio} [facility] Serum or plasma anion gap de terminationOrdered By: Leonard Salazar on 02-03-2023 Anion gap [Moles/Vol] 9.3 mmol/L 6.0-15.0 [facility] Sodium [Moles/volume] in Ser um or PlasmaOrdered By: Leonard Salazar on 02-03-2023 Sodium [Moles/Vol] 137 mmol/L 136-145 [facility] Specific gravity Auto test s trip (U) [Rel density]Ordered By: Leonard Salazar on 02-03-2023 Specific gravity (U) [Rel density] 1.025 1.001-1.030 [facility] Squamous epithelial cells de tection in urine sediment by light microscopyOrdered By: Leonard Salazar on 02-03-2023 Epithelial cells.squamous LM Ql (Urine sed) 20-30 [HPF] 0-2 [facility] Urea nitrogen [Mass/volume] in Serum or PlasmaOrdered By: Leonard Salazar on 02-03-2023 Urea nitrogen [Mass/Vol] 17 mg/dL 7 [facility] Urine Cultureon 02-03-2023 Bacteria identified Cx Nom (U) 20,000 colonies/ml mixed bacterial skin contaminants 2 Days PERFORMED BY: [place] [address] PATHOLOGIST [employer] TECHNICIAN DANYELL LIVINGSTON M.D. Normal [facility] Comment on above: Performed By: #### U HCG, URDS, ADDONUAPLUS, CUU #### [facility] [address] [place] [address] Urine bacteria detection by automated methodOrdered By: Leonard Salazar on 02-03-2023 Bacteria Auto Ql (U) 1+ None Seen [facility] Urine clarity by refractomet ry automatedOrdered By: Leonard Salazar on 02-03-2023 Clarity Refractometry automated (U) Cloudy Clear [facility] Urine culture routineOrdered By: Leonard Salazar on 02-03-2023 Bacteria identified Cx Nom (U) 2 Days [facility] Urine glucose measurement by automated test strip (mass/volume)Ordered By: Leonard Salazar on 02-03-2023 Glucose Auto test strip (U) [Mass/Vol] Normal mg/dL Normal [facility] Urine hemoglobin detection b y automated test stripOrdered By: Leonard Salazar on 02-03-2023 Hemoglobin Auto test strip Ql (U) Negative Negative [facility] Urine leukocyte esterase det ection by automated test stripOrdered By: Leonard Salazar on 02-03-2023 Leukocyte esterase Auto test strip Ql (U) 1+ Negative [facility] Urobilinogen Auto test strip (U) [Mass/Vol]Ordered By: Leonard Salazar on 02-03-2023 Urobilinogen (U) [Mass/Vol] Normal mg/dL Normal [facility] WBC Auto (Bld) [#/Vol]Ordere d By: Leonadr Salazar on 02-03-2023 WBC (Bld) [#/Vol] 9.5 10*3/uL 3.8-11.6 [facility] pH Auto test strip (U)Ordere d By: Leonard Salazar on 02-03-2023 pH (U) 7.5 [pH] 5.0-9.0 [facility] ED Note-Physicianon 01-28-20 ED Note-Physician [id number] .00CD:127 Normal [facility] Cholesterol [Mass/volume] in Serum or PlasmaOrdered By: Bobo Shields on 01-15-2023 Cholesterol [Mass/Vol] 220 mg/dL 140-200 [facility] Comment on above: Chol less than 200 m g/dl low riskChol 201-239 mg/dl borderline riskChol 240 mg/dl and greater high risk Cholesterol in LDL Calc [Mas s/Vol]Ordered By: Bobo Shields on 01-15-2023 Cholesterol in LDL [Mass/Vol] 150 mg/dL 0-100 [facility] Comment on above: LDL ATP III CLASSIFI CATIONLDL less than 100 mg/dL OptimalLDL 100-129 mg/dL Near or above optimalLDL 130-159 mg/dL Borderline highLDL 160-189 mg/dL HighLDL greater than 189 mg/dL Very high Cholesterol in VLDL Calc [Ma ss/Vol]Ordered By: Bobo Shields on 01-15-2023 Cholesterol in VLDL [Mass/Vol] 23 mg/dL [facility] Lipid Panelon 01-15-2023 Cholesterol [Mass/Vol] 220 mg/dL High 140-200 [facility] Comment on above: Result Comment: Chol less than 200 mg/dl low risk Chol 201-239 mg/dl borderline risk Chol 240 mg/dl and greater high risk Performed By: #### U HCG, URDS, ADDONUAPLUS, CUU #### [address] Cholesterol in HDL [Mass/Vol] 46 mg/dL Normal 35-85 [facility] Comment on above: Result Comment: HDL CHOL ATP-III CLASSIFICATION Cardiovascular Risk HDL > or equal to 60 mg/dL LOW HDL < 40 mg/dL HIGH Performed By: #### U HCG, URDS, ADDONUAPLUS, CUU #### [facility] [address] Cholesterol.total/Andra sterol in HDL [Mass ratio] 4.8 {ratio} Normal <5.0 [facility] Comment on above: Performed By: #### U HCG, URDS, ADDONUAPLUS, CUU #### [facility] [address] LDL Cholesterol,Calculated 150 mg/dL High 0-100 [facility] Comment on above: Result Comment: LDL ATP III CLASSIFICATION LDL less than 100 mg/dL Optimal LDL 100-129 mg/dL Near or above optimal LDL 130-159 mg/dL Borderline high LDL 160-189 mg/dL High LDL greater than 189 mg/dL Very high Performed By: #### U HCG, URDS, ADDONUAPLUS, CUU #### [facility] [address] Triglyceride w/Reflex 119 mg/dL Normal 0-149 [facility] Comment on above: Result Comment: TRIG ATP III CLASSIFICATION TRIG less than 150 mg/dL Normal TRIG 150-199 mg/dL Borderline high TRIG 200-500 mg/dL High TRIG greater than 500 mg/dL Very high Standard traceable to the Center for Disease Conrtrol and Prevention (CDC) test method. Performed By: #### U HCG, URDS, ADDONUAPLUS, CUU #### [facility] [address] VLDL CHOLESTEROL 23 mg/dL Normal [facility] Comment on above: Performed By: #### U HCG, URDS, ADDONUAPLUS, CUU #### [facility] [address] Serum or plasma high density lipoprotein (HDL) cholesterol measurementOrdered By: Bobo Shields on 01-15-2023 Cholesterol in HDL [Mass/Vol] 46 mg/dL 35-85 [facility] Comment on above: HDL CHOL ATP-III CLA SSIFICATION Cardiovascular RiskHDL > or equal to 60 mg/dL LOWHDL < 40 mg/dL HIGH Serum or plasma total choles terol/high density lipoprotein (HDL) cholesterol mass ratOrdered By: Bobo Shields on 01-15-2023 Cholesterol.total/Andra sterol in HDL [Mass ratio] 4.8 {ratio} <5.0 [facility] Thyroid Stim Hormone w/Rflxo n 01-15-2023 Thyroid Stim Hormone w/Rflx 1.74 u[iU]/mL Normal 0.45-5.33 [facility] Comment on above: Performed By: #### U HCG, URDS, ADDONUAPLUS, CUU #### [facility] [address] [place] [address] Thyrotropin [Units/volume] i n Serum or PlasmaOrdered By: Bobo Shields on 01-15-2023 TSH Qn 1.74 m[IU]/L 0.45-5.33 [facility] Triglyceride [Mass/volume] i n Serum or PlasmaOrdered By: Bobo Shields on 01-15-2023 Triglyceride [Mass/Vol] 119 mg/dL 0-149 [facility] Comment on above: TRIG ATP III CLASSIF ICATIONTRIG less than 150 mg/dL NormalTRIG 150-199 mg/dL Borderline highTRIG 200-500 mg/dL High TRIG greater than 500 mg/dL Very highStandard traceable to the Center for Disease Conrtrol and Prevention (CDC) test method. Vitamin D 25 Hydroxy Totalon 01-15-2023 Vitamin D 25 Hydroxy Total 15.0 ng/mL Low 30-100 [facility] Comment on above: Result Comment: KAVON MIN D STATUS 25(OH)VITAMIN D RANGE (ng/mL) Deficient <20 Insufficient 20 to <30 Sufficient 30 to 100 Reference: Deb MF,Stephanie NC, Ro CORONEL, et al. Evaluation,treatment, and prevention of vitamin D deficiency; an Endocrine Society clinical practice guideline. JCEM. 2010; 96(7):1911-30. PERFORMED BY: [place] [address] PATHOLOGIST [employer]ANING TECHNICIAN DANYELL LIVINGSTON M.D. Performed By: #### U HCG, URDS, ADDONUAPLUS, CUU #### [facility] [address] [place] [id number] [facility] Vitamin D+Metabolites [Mass/ volume] in Serum or PlasmaOrdered By: Bobo Shields on 01-15-2023 Vitamin D+Metabolites [Mass/Vol] 15.0 ng/mL 30-100 [facility] Comment on above: VITAMIN D STATUS [...] Trimethoprim/Sulfamet hoxazole >=320 R F Normal [facility] Comment on above: Performed By: #### P REG #### [facility] [address] [address] [address] Efren Parra Coding Summary.on 01-14-2023 Coding Summary. [id number] W w+PGhlYWQ+HK6MXPDzG18 qdYPiqL4aM0XOBFyXXwxw GVJEVXdKYdKsezZgLW3hn XNjZXJu IC8+FH4eETUdDkcbbIDdz 4E3aJJ0O43tvl2yDRaxdH U1ZJBtCrHxsshku6cdxEt 6IDcuNmluOyBt FTKlpE40CMF0uQ09Pb30e YVwjQEtn8layDp1NnFwBP ViIFX3pOurKNull3WtVSR zU11pqCTrj6U7 CMLdmAxdtNGlScNdlRU0m D0wMOxqmhucb4izkwdhAy a8br18gNPfn4V8aEY1H4M lcfP9RTHalCJq WoojrLGRzO6ghekny1ysv cokUaNnGYGlSRt0RLg7JT BxpVofLsZcNA51TGL4UFT rjoNbD7QsXWFn tZpaNxY4e2E9Ab9WZ9DQT tkmR0PXQIFWOPzhkFP+PC 65vw66N0CeRresYut6QGQ wQYP2uCP6zJ0u QCNtARcul5Z8dZA5N2Ppr nCcro0hb7cpDCBvLNzwT8 8avTYym1J7MGVxpZN9QCP jnDbjFkLtuE41 Oyc+ZVIorYlpq2CrWaesz 6ovw4mprWu6DlaxYZKnvu MydWufFMV0d3UpWy5dJXZ gyIN7jPU1cO9v XpMfBhD3MFtyG286SxRwl CSvRakqR05zF8KchPI+PH QtIpp1TGEssHviKZ4qQ7A hZGRpbmctbGVm sLuhSY3hCYZkjjloWQWrh M4pHTTiS2f0HrPvYfG6AQ anA2IbMBQghoncLl03rZ4 uEgScJcO2QHcj V1NbbvF0XCLeiDLkONpqP XM0V74ff9X0CWRzKMCfXW B3dOS6xO4gyEhbipertKT mdDsgdmVydGlj NUkcHDdkX040AYUdoOenA kNvZGluZyBEYXRlOiAgMD QvMDUvMjAyMzwvdGQ+PHR wSMX1zEyhAAMo oOXpGMbcVt4ehTupyJenL N9nDATfbbiwXSPxwU2dLO ZuuPXjqYjiZJ0eWHAhrjp sz684NiUzWDN5 BWCkxBCzZ4JumC2gKwHeC TPhLYFdT2VirBAmKRuxG3 18VHtqSzI9BCYoxlYnP5A sLWFsaWduOiB0 j4F9Pl7Ap1OvpdjcH1Gra OTqYlNdFtaxYGd8M8QzWe wvdHI+WJ77ELYxCT10AMn 1URL4nBraKKug FSAbH3UlhD0cQoEcCEEtP GRkOyc+PHRhYmxlIHdpZH RoPScxMDAlJyBzdHlsZT0 wWh2lCNRyNHYh cWqalUKbGcFwh6zrEZRoI PciYX5ybNltA9PjuWT6CZ Tuz4s5Qx41W84oI9AkpUF +MEFnpES3gDA9 pW5sWcMjLpV1OFwsA027L aGhtFHpCjptm3qdl3xqhH o1MpL9CHKsutSsvQvlYGO 3d7ClJq96M57f IHdpZHRoPSIxNSUiIHZhb Oquun5edD1yHi6+PGNvbC M9aML7hD2wBlHkWyM6RRk jS159AeCqqOUq Ucmsp0hth5kgwGx7ZfNoE UAatwNfxLgoSGF9j2UvNb 60W2PfiHhex0YcKer3ss4 2vHDel7E8tJI3 U9UjFXOfwvnbuNJkdIpeW G2pLIFdhzblMRJgpR0uYQ TtI3x2OgVjRdE8PRltE0L icrI2ZKNntFGi ZQQgoIWBfM8lmnuxu5eor mqkXyZmOLIhLBt7ZZo6LR AnaYkdZgEfKKV6OpV9JIG 4uHEhlA8bdQcg cofbgN0oEfl+CBZ4nMIpr IXGNE8fRgqcnOB+PHRkIH O0dGqmGLuxLRZrjH1nYCV wR7u5HwGxEeD6 SKttY9HyyoK6EFTlaEBaD JKkoVQLxE6gbuqiv6mjwh isIgOnHDHbWAp3DOe0PEF saWduOiBsZWZ0 NiF1LDG2wNEdoE9scUacs bntoG7lBnt+QmlydGggRG B1FIy3K8GvGdk6VNJvvIu kBA2btWYhCTxv Dh4dkHoesSpuHA3dUDCqq btav539AzBjn5jkZPHrkF UuRFpgYOD5P15cs6N4RBH xTQWrEFR7qPB3 aR3nzKiowotrvPNjaLysf gTtzXdnDCfdRUzgE360CO LakJgfDcSlXDo7Z8AuFaf 5XCPvhOzpMY1v zGRaDZtdOt3rdPltkPthZ S3jHPYykilxw486VcDtk8 gaQFQnpIHgXYjaJWQ8J57 fl6F2RYVtVMSf XGY8gCA5hR3olUsesltxn GVmdDsgdmVydGljYWwtYW ooG644DDNgwVqkWaYraAb 5I3ItZqh0UNEx jDkjIP5nsMHrEKovQx2yh JmxlHgqII9pCIEdxhhth4 71JyJqj8vlXVJseZVhCKy gZUL9I29pc8V6 UUXoHWPdKSL2iJH6dL1wl GlnbjogbGVmdDsgdmVydG jvFPecFSjaL519TDJmhNm nPlBhdGllbnQg FAzsFFu3L7DqPvvekEU+P L58WNUqRP67tZDavNEvn1 vyaZn0ToQmOUXnVDH1qZv hJHegt9BkZIHx O48dyNWli0G5UKXpmWelr SVyUpVcnRB9tR2cHWwrgs pfu7nssovmPspkl5weig8 4rF25Y44hLHzr ZHRoPSIzMCUiIHZhbGlnb f1ydT8cFb8+AQDxcAI1rN B5eT0jPYJjNeR6ZGulB57 9InRvcCIvPjxj f7gzs5xztGu7ObN7HDCbu nUjfRurTZB8x2PkYs27C0 9sIHdpZHRoPSIyMCUiIHZ buWheyn0mlG3x Ii8+YXHlfPS0bHY4vX3wQ cSdYeL4HEmqW649UmVjgT VmEkzaV81bC2DkeZY+PHR eOku3KPOdzAlq LM8xaXKxMQcoMl1aEEK4K gMhMxMwHRwoK8LaMVVkdq hchrryoEU8NCCuZEFfuG3 5Cl1ggXwaJJNd rBPXrO2upglot8muuktmX yMtHCClBSn3PQb9EHIvkR ftOfJgFKU4YmB7BIB0jMO csX7ckHujisar hO8gD9UqSZBbkwthUr33a V0yQaBmWnY8NJawXzl+Rk 7XXMFJLWVULHDBWXVSHO9 2GI49xLEnw3U8 pNR4S1QnXKPwnheikacdk XS9ATUiBRBwxX99cCZeEQ wfUg9so9V0w756KANkPCP raG61Fe8ttNuz EHKncASOsV1bajxcg2shm arcFrGmQYKiHPn9VFh8DW WctNhtVjLlMQK9CoU2KWA 9pDTrrT5tbPty spvnlT2lHxm+MDMvMzEvM Pq7IEinjQL+AVJnQHT7qU ddKDygALTjyV9oIPYmP6v 7FhVhLnZ2HQro W7GmCOXbvxnrSt33uP8iG lJdMxG3XVncJ6TvpgL3TR PabXUnUFhuOWG0S60to2X 6LDVgSKIuVNA0 qYP3xO9lxNhjjmwpgENjg DsgdmVydGljYWwtYWxpZ2 60LBWqvAwtMpT3NAwvEVP fRK43HW46kCDw t4I7tTR1H0QySHNmkyllw pkupXD6PPPnVAEiwD49fU FhRIgcQe7ex5L8h908BKY nOXPwpV75Ri5i jIsjCBSapHNBoM6quyovm 7sivclxXqWuDIScTJw6IT n1DKFjkGcrSeNnPCO8BvC 5LIU3vZPwfU7t zIxdsmwmzD2tXxi+RmVtY TfbZS98GR30vCJdg8Z4qB S5C6YaUOMjqpxzxiuhzAZ 6NKYdCCPosK81 iFFtKJtqSa3en2Z6j677Z RMgPBJzoG02Ql6tbFprMK QorHKYwK5gvhyov1gxeng gIzAwMDAwMDt0 AIc3MPUziPvdOnBxTNW1H uV7WIL3mUPpaO5zaOturg suwV5lHhp+TG5abuzyjeX 8KJ18LG98I0Js PjwvdGFibGU+PHRhYmxlI HdpZHRoPScxMDAlJyBzdH ylHE5xRi6sDPYbTTUlsBx jpKHiNaGil1uq DUYhKMbxFC6ixZqlG9Lsc TI8KXHzo1u2Zq69J93sB1 JvdXA+SPNjpEE8lHH4mL6 pXzLrJwB4XWas C182EzLnhHLwRhdqj0wop 8jwqDg0MlUhDPTbprHdwW ekIBO9b8VgYl93V47yRRn pZHRoPSIyMCUi WKTodYqiyv5bcN8gRi8+P LWddPW8xDN7jI7sAkNgCq S9VXjsI545UgQtsZYaPjb yA06tV6LzoIW+ VCAkTtt1HDZupGktJP1vo IDdKJjyEm4cMZK6YzAyJh JtSJbwH8ZoJJBtahphvsi vzEI1CEMeRABt dU26Hq1uaOfjEu5gGJHxI VR6ZTLauLWmN4OjjL3uDn FhGJQyVKCmY3TtsKXaNNc iP664DFcvJhF8 BYMjsgRvE8KvHKGgwCzqK eG2d1A3En4HmUjsvQLkVI 1pStVqKCa8Z7PjEyp2UYI kmZerII2eoHQq URmdTo6dhWkegHihSE9mS DFujfyue913PjEbj8yrEG CdaAQmMWltKJW3T95hh7K 7XFUpYOIuEHP0 xWR2pF8dkWclsfevwEWqg DsgdmVydGljYWwtYWxpZ2 63KXKpgHyjSuAMFwo3O8R sJdt7TJBulWyw YZ9ipGUeDGrvZh2ncRfip WuyTG9tMICxvrrwi662Ue Dxx8zkCUQlcOLjHPisDZM 8C60qj9B0VISi EKGtRNI5xOU6hC8fqQlrk jogbGVmdDsgdmVydGljYW thPSbfT912SVKcyTstOa4 UWto1J1JgQkb2 OMInpOobOC3qbXKlZYvuL x7quVcyvXylYK8sNSDlpp qdb854KfScj5qbJHHuzVT sJBotEPT8B22i x7D9OCRlKLAqLJB0aRT6y Q1pvJubekftlXRrbQfdhc EwrOnhUIfmMMzbS129TYI vcDsnPlBheWVy OjwvdGQ+HS56vq56L4OgC prbUws6NVMcNOK4sUM1aP 3cXFMkTGqtw3L3kSB6B8M ojgLcyy7fv6en YXBzZTog (more content not included)... Normal [facility] ECG 12 lead ECGon 01-14-2023 ECG 12 [place] [address] Electrocardiograph Report Signed Patient: Lorna Deutsch MR#: [id number] 98 : 1985 Acct:[id number] Age/Sex: 38 / F ADM Date: 01/12/23 Loc: Room: [address] [place] [address] Type: ADM IN Attending Dr: Bobo Shields [...] in Anterior leads Confirmed by ROMÁN RAMOS FACCRACHAEL ([id number]) on 01/14/2023 4:34:36 PM Referred By: Electronically Signed By:RACHAEL RUDD MD [facility] Transcribed By: MUS Signed By Kane Rudd MD 01/14/23 1634 Normal [facility] ED Note-Physicianon 01-14-20 ED Note-Physician [id number] .[id number]:127 Normal [facility] Outside Hospital Correspo ndenceon 01-13-[address] [facility] Correspondence [id number] .[id number]:127 Normal [facility] Alanine aminotransferase [En zymatic activity/volume] in Serum or PlasmaOrdered By: Jose Moses on 01-12-2023 ALT [Catalytic activity/Vol] 10 U/L 7-52 [facility] Albumin [Mass/volume] in Ser um or Plasma by Bromocresol green (BCG) dye binding methoOrdered By: Jose Moses on 01-12-2023 Albumin BCG dye [Mass/Vol] 5.3 g/dL 3.5-5.7 [facility] Alkaline phosphatase [Enzyma tic activity/volume] in Serum or PlasmaOrdered By: Jose Moses on 01-12-2023 ALP [Catalytic activity/Vol] 50 U/L 34-104 [facility] Amphetamine Screen Ql (U)Ord ered By: Jose Moses on 01-12-2023 Amphetamines Ql (U) Positive Negative [facility] Aspartate aminotransferase [ Enzymatic activity/volume] in Serum or PlasmaOrdered By: Jose Moses on 01-12-2023 AST [Catalytic activity/Vol] 13 U/L 13-39 [facility] Automated erythrocytes count in urine sediment (number/area)Ordered By: Jose Moses on 01-12-2023 RBC Auto (Urine sed) [#/Area] 3-4 [HPF] 0-4 [facility] Automated leukocytes count i n urine sediment (number/area)Ordered By: Jose Moses on 01-12-2023 WBC Auto (Urine sed) [#/Area] 10-19 [HPF] 0-4 [facility] Barbiturates [Presence] in U rine by Screen methodOrdered By: Jose Moses on 01-12-2023 Barbiturates Screen Ql (U) Negative Negative [facility] Basophils Auto (Bld) [#/Vol] Ordered By: Jose Moses on 01-12-2023 Basophils (Bld) [#/Vol] 0.0 10*3/uL 0.0-0.2 [facility] Basophils/100 WBC Auto (Bld) Ordered By: Jose Moses on 01-12-2023 Basophils/100 WBC (Bld) 0.3 % . [facility] Benzodiazepines Screen Ql (U )Ordered By: Jose Moses on 01-12-2023 Benzodiazepines Ql (U) Negative Negative [facility] Benzoylecgonine [Presence] i n Urine by Screen methodOrdered By: Jose Moses on 01-12-2023 Benzoylecgonine Screen Ql (U) Negative Negative [facility] Bilirubin Test strip Ql (U)O rdered By: Jose Moses on 01-12-2023 Bilirubin Ql (U) Negative Negative [facility] Bilirubin.total [Mass/volume ] in Serum or PlasmaOrdered By: Jose Moses on 01-12-2023 Bilirubin [Mass/Vol] 0.6 mg/dL 0.3-1.0 [facility] CARDIAC STACI ADMITon 023 CK [Catalytic activity/Vol] 48 U/L Normal 26-192 [facility] Comment on above: Performed By: #### P REG #### [facility] [address] [place] [address] Dr. Efren Parra CK.MB [Mass/Vol] 0.83 ng/mL Normal <=3.60 [facility] Comment on above: Performed By: #### P REG #### [facility] [address] [place] [address] Dr. Efren Parra HSTROP <4.0 Normal 4.0-51.3 [facility] Comment on above: Result Comment: CUT- OFF POINTS HAVE BEEN ESTABLISHED BASED ON THE FOURTH UNIVERSAL DEFINITIONS OF MYOCARDIAL INFARCTION. THE UPPER REFERENCE LIMIT (URL) OF TROPONIN, DEFINED THE 99TH PERCENTILE OF cTnI DISTRIBUTION IN A REFERENCE POPULATION, HAS BEEN CONFIRMED THE DECISION THRESHOLD FOR HI DIAGNOSIS. Performed By: #### P REG #### [facility] [address] [place] [address] Dr. Efren Parra FEMI 31 ng/mL Normal 9-82 [facility] Comment on above: Performed By: #### P REG #### [facility] [address] [place] [address] Dr. Efren Parra CBC AUTO DIFFon 01-12-2023 BASO # 0.0 103/ul Normal 0.0-0.1 [facility] Comment on above: Performed By: #### C BC #### [facility] [address] [place] [address] Dr. Efren Parra Basophils/100 WBC (Bld) 0.1 % Critically low 0.2-2.0 [facility] Comment on above: Performed By: #### C BC #### [facility] [address] [place] [address] Dr. Efren Parra EO # 0.0 103/ul Normal 0.0-0.7 [facility] Comment on above: Performed By: #### C BC #### [facility] [address] [place] [address] Dr. Efren Parra Eosinophils/100 WBC (Bld) 0.1 % Critically low 0.9-7.0 [facility] Comment on above: Performed By: #### C BC #### [facility] [address] [place] [address] Dr. Efren Parra Erythrocyte distribution width (RBC) [Ratio] 13.2 % Normal 11.0-15.0 [facility] Comment on above: Performed By: #### C BC #### [facility] [address] [place] [address] Dr. Efren Parra Hematocrit (Bld) [Volume fraction] 45.3 % Normal 36.0-48.0 [facility] Comment on above: Performed By: #### C BC #### [facility] [address] [place] [address] Dr. Efren Parra Hemoglobin (Bld) [Mass/Vol] 15.4 g/dL Normal 12.0-16.0 [facility] Comment on above: Performed By: #### C BC #### [facility] [address] [place] [address] Dr. Efren Parra IG # 0.01 10e3/ul Normal 0.00-0.03 [facility] Comment on above: Performed By: #### C BC #### [facility] [address] [place] [address] Dr. Efren Parra IG % 0.1 % Normal 0.0-0.5 [facility] Comment on above: Performed By: #### C BC #### [facility] [address] [place] [address] Dr. Efren Parra LYMPH # 2.3 103/ul Normal 1.2-3.8 [facility] Comment on above: Performed By: #### C BC #### [facility] [address] [place] [address] Dr. Erfen Parra Lymphocytes/100 WBC (Bld) 31.1 % Normal 20.5-60.0 [facility] Comment on above: Performed By: #### C BC #### [facility] [address] [place] [address] Dr. Efren Parra MANUAL DIFF REQ NO Normal [facility] Comment on above: Performed By: #### C BC #### [facility] [address] [place] [address] Dr. Efren Parra MCH (RBC) [Entitic mass] 30.4 pg Normal 26.7-34.0 [facility] Comment on above: Performed By: #### C BC #### [facility] [address] [place] [address] Dr. Efren Parra MCHC (RBC) [Mass/Vol] 34.0 g/dL Normal 29.9-35.2 [facility] Comment on above: Performed By: #### C BC #### [facility] [address] [place] [address] Dr. Efren Prara MCV (RBC) [Entitic vol] 89.5 fL Normal 81.0-99.0 [facility] Comment on above: Performed By: #### C BC #### [facility] [address] [place] [address] Dr. Efren Parra MONO # 0.4 103/ul Normal 0.3-0.8 [facility] Comment on above: Performed By: #### C BC #### [facility] [address] [place] [address] Dr. Efren Parra Monocytes/100 WBC (Bld) 5.6 % Normal 1.7-12.0 [facility] Comment on above: Performed By: #### C BC #### [facility] [address] [place] [address] Dr. Efren Parra NEUT # 4.6 103/ul Normal 1.4-6.5 [facility] Comment on above: Performed By: #### C BC #### [facility] [address] [place] [address] Dr. Efren Parra Neutrophils/100 WBC (Bld) 63.0 % Normal 43.0-75.0 [facility] Comment on above: Performed By: #### C BC #### [facility] [address] [place] [address] Dr. Efren Parra Platelet mean volume (Bld) [Entitic vol] 10.5 fL Normal 9.5-13.5 [facility] Comment on above: Performed By: #### C BC #### [facility] [address] [address] [address] Efren Parra PLT 262 103/ul Normal 150-450 [facility] Comment on above: Performed By: #### C BC #### [facility] [address] [address] [address] Efren Parra RBC 5.06 106/ul Normal 4.20-5.40 [facility] Comment on above: Performed By: #### C BC #### [facility] [address] [address] [address] Efren Parra WBC 7.3 103/ul Normal 4.0-11.0 [facility] Comment on above: Performed By: #### C BC #### [facility] [address] [address] [address] Efren Parra Calcium [Mass/volume] in Ser um or PlasmaOrdered By: Jose Moses on 01-12-2023 Calcium [Mass/Vol] 10.7 mg/dL 8.6-10.3 [facility] Cannabinoids [Presence] in U rine by Screen methodOrdered By: Jose Moses on 01-12-2023 Cannabinoids Screen Ql (U) Negative Negative [facility] Comment on above: These are unconfirme d results and should not be used for legal purposes. Drug Cut-Off Concentration: AMPH 1000 ng/mL SARA 200 ng/mL MARTÍNEZ 200 ng/mL COCM 300 ng/mL OP 300 ng/mL PCP 25 ng/mL THC 20 ng/mL Carbon dioxide, total [Moles /volume] in Serum or PlasmaOrdered By: Jose Moses on 01-12-2023 CO2 [Moles/Vol] 25.9 mmol/L 21.0-31.0 [facility] Chloride [Moles/volume] in S maris or PlasmaOrdered By: Jose Moses on 01-12-2023 Chloride [Moles/Vol] 103 mmol/L 98-107 [facility] Color Auto (U)Ordered By: Shaka Moses on 01-12-2023 Color (U) Yellow Yellow [facility] Complete Blood Count Auto Di ffon 01-12-2023 Basophils (Bld) [#/Vol] 0.0 10*3/uL Normal 0.0-0.2 [facility] Comment on above: Result Comment: PERF ORMED BY: [place] [address] PATHOLOGIST [employer] TECHNICIAN DANYELL LIVINGSTON M.D. Performed By: #### U HCG, URDS, ADDONUAPLUS, CUU #### [facility] [address] [place] [address] Basophils/100 WBC (Bld) 0.3 % Normal . [facility] Comment on above: Performed By: #### U HCG, URDS, ADDONUAPLUS, CUU #### [facility] [address] [place] [address] [place] Eosinophils (Bld) [#/Vol] 0.0 10*3/uL Normal 0.0-0.45 [facility] Comment on above: Performed By: #### U HCG, URDS, ADDONUAPLUS, CUU #### [facility] [address] [place] [address] Eosinophils/100 WBC (Bld) 0.2 % Normal . [facility] Comment on above: Performed By: #### U HCG, URDS, ADDONUAPLUS, CUU #### [facility] [address] [place] [address] Erythrocyte distribution width (RBC) [Ratio] 14.2 % Normal 11.9-15.3 [facility] Comment on above: Performed By: #### U HCG, URDS, ADDONUAPLUS, CUU #### [facility] [address] [place] [address] Hematocrit (Bld) [Volume fraction] 47.7 % High 34.0-46.4 [facility] Comment on above: Performed By: #### U HCG, URDS, ADDONUAPLUS, CUU #### [place] [id number] [place] Hemoglobin (Bld) [Mass/Vol] 16.1 g/dL High 11.8-15.4 [facility] Comment on above: Performed By: #### U HCG, URDS, ADDONUAPLUS, CUU #### [address] Lymphocytes (Bld) [#/Vol] 1.7 10*3/uL Normal 1.00-4.8 [facility] Comment on above: Performed By: #### U HCG, URDS, ADDONUAPLUS, CUU #### [address] Lymphocytes/100 WBC (Bld) 25.4 % Normal . [facility] Comment on above: Performed By: #### U HCG, URDS, ADDONUAPLUS, CUU #### [address] MCH (RBC) [Entitic mass] 30.9 pg Normal 24.7-34.3 [facility] Comment on above: Performed By: #### U HCG, URDS, ADDONUAPLUS, CUU #### [address] MCV (RBC) [Entitic vol] 91.9 fL Normal 80-100 [facility] Comment on above: Performed By: #### U HCG, URDS, ADDONUAPLUS, CUU #### [address] Mean Corpuscular HGB Conc 33.7 g/dL Normal 32.0-35.0 [facility] Comment on above: Performed By: #### U HCG, URDS, ADDONUAPLUS, CUU #### [place] [address] [place] Monocytes (Bld) [#/Vol] 0.3 10*3/uL Normal 0.0-0.8 [facility] Comment on above: Performed By: #### U HCG, URDS, ADDONUAPLUS, CUU #### [address] [address] [place] Monocytes/100 WBC (Bld) 17.67 % Normal 0.00-20.00 [facility] Comment on above: Performed By: #### U HCG, URDS, ADDONUAPLUS, CUU #### [facility] [address] [place] [address] [place] Monocytes/100 WBC (Bld) 5.2 % Normal . [facility] Comment on above: Performed By: #### U HCG, URDS, ADDONUAPLUS, CUU #### [facility] [address] [place] [address] [place] Neutrophils (Bld) [#/Vol] 4.5 10*3/uL Normal 1.8-7.7 [facility] Comment on above: Performed By: #### U HCG, URDS, ADDONUAPLUS, CUU #### [facility] [address] [place] [address] Neutrophils/100 WBC (Bld) 68.9 % Normal . [facility] Comment on above: Performed By: #### U HCG, URDS, ADDONUAPLUS, CUU #### [facility] [address] [place] [address] [place] NRBC% 0.1 /100{WBC} Normal 0-0.5 [facility] Comment on above: Performed By: #### U HCG, URDS, ADDONUAPLUS, CUU #### [facility] [address] [place] [address] [place] Platelet mean volume (Bld) [Entitic vol] 8.7 fL Normal 6.3-10.7 [facility] Comment on above: Performed By: #### U HCG, URDS, ADDONUAPLUS, CUU #### [facility] [address] [place] [address] [place] Platelets (Bld) [#/Vol] 275 10*3/uL Normal 150-450 [facility] Comment on above: Performed By: #### U HCG, URDS, ADDONUAPLUS, CUU #### [facility] [address] [place] [address] [place] RBC (Bld) [#/Vol] 5.19 10*6/uL High 3.60-5.00 [facility] Comment on above: Performed By: #### U HCG, URDS, ADDONUAPLUS, CUU #### [address] WBC (Bld) [#/Vol] 6.5 10*3/uL Normal 3.8-11.6 [facility] Comment on above: Performed By: #### U HCG, URDS, ADDONUAPLUS, CUU #### [address] Comprehensive Metabolic Pane selam 01-12-2023 Albumin [Mass/Vol] 5.3 g/dL Normal 3.5-5.7 [facility] Comment on above: Performed By: #### U HCG, URDS, ADDONUAPLUS, CUU #### [address] Albumin/Globulin [Mass ratio] 1.4 {ratio} Normal [facility] Comment on above: Performed By: #### U HCG, URDS, ADDONUAPLUS, CUU #### [address] ALP [Catalytic activity/Vol] 50 U/L Normal 34-104 [facility] Comment on above: Performed By: #### U HCG, URDS, ADDONUAPLUS, CUU #### [address] ALT [Catalytic activity/Vol] 10 U/L Normal 7-52 [facility] Comment on above: Performed By: #### U HCG, URDS, ADDONUAPLUS, CUU #### [address] Anion gap [Moles/Vol] 13.1 mmol/L Normal 6.0-15.0 [facility] Comment on above: Performed By: #### U HCG, URDS, ADDONUAPLUS, CUU #### [address] AST [Catalytic activity/Vol] 13 U/L Normal 13-39 [facility] Comment on above: Performed By: #### U HCG, URDS, ADDONUAPLUS, CUU #### [facility] [address] Bilirubin [Mass/Vol] 0.6 mg/dL Normal 0.3-1.0 [facility] Comment on above: Performed By: #### U HCG, URDS, ADDONUAPLUS, CUU #### [facility] [address] Calcium [Mass/Vol] 10.7 mg/dL High 8.6-10.3 [facility] Comment on above: Performed By: #### U HCG, URDS, ADDONUAPLUS, CUU #### [facility] [address] Chloride [Moles/Vol] 103 mmol/L Normal 98-107 [facility] Comment on above: Performed By: #### U HCG, URDS, ADDONUAPLUS, CUU #### [facility] [address] CO2 [Moles/Vol] 25.9 mmol/L Normal 21.0-31.0 [facility] Comment on above: Performed By: #### U HCG, URDS, ADDONUAPLUS, CUU #### [facility] [address] [place] [address] [place] Creatinine [Mass/Vol] 0.65 mg/dL Normal 0.60-1.20 [facility] Comment on above: Performed By: #### U HCG, URDS, ADDONUAPLUS, CUU #### [facility] [address] [place] [address] [place] Creatinine Clr Calc Pharmacy 105.60 Normal [facility] Comment on above: Result Comment: PERF ORMED BY: [place] [address] PATHOLOGIST [employer] TECHNICIAN DANYELL LIVINGSTON M.D. Performed By: #### U HCG, URDS, ADDONUAPLUS, CUU #### [facility] [address] [place] [address] [place] GFR/1.73 sq M.predicted MDRD (S/P/Bld) [Vol rate/Area] mL/min/{1.73_m2} Normal [facility] Comment on above: Performed By: #### U HCG, URDS, ADDONUAPLUS, CUU #### [facility] [address] Globulin (S) [Mass/Vol] 3.9 g/dL Normal [facility] Comment on above: Performed By: #### U HCG, URDS, ADDONUAPLUS, CUU #### [address] Glucose [Mass/Vol] 107 mg/dL High 70-100 [facility] Comment on above: Result Comment: [facility] Glucose Reference Range is dependent on time and content of last meal. Glucose of more than 200 mg/dL in a nonstressed, ambulatory subject supports the diagnosis of Diabetes Mellitus. ADA recommended reference range Performed By: #### U HCG, URDS, ADDONUAPLUS, CUU #### [facility] [address] [place] [address] Potassium [Moles/Vol] 3.0 mmol/L Low 3.5-5.1 [facility] Comment on above: Performed By: #### U HCG, URDS, ADDONUAPLUS, CUU #### [facility] [address] [place] [address] [place] Protein [Mass/Vol] 9.2 g/dL High 6.4-8.9 [facility] Comment on above: Performed By: #### U HCG, URDS, ADDONUAPLUS, CUU #### [facility] [address] [place] [address] [place] Sodium [Moles/Vol] 139 mmol/L Normal 136-145 [facility] Comment on above: Performed By: #### U HCG, URDS, ADDONUAPLUS, CUU #### [place] [address] [place] Urea nitrogen [Mass/Vol] 14 mg/dL Normal 7-25 [facility] Comment on above: Performed By: #### U HCG, URDS, ADDONUAPLUS, CUU #### [facility] [address] [id number] [facility] Consent for Treatmenton 04-0 Consent for Treatment [id number] Normal [facility] Creatinine [Mass/volume] in Serum or PlasmaOrdered By: Jose Moses on 01-12-2023 Creatinine [Mass/Vol] 0.65 mg/dL 0.60-1.20 [facility] DRUG SCREEN RAPID (URINE)on 01-12-2023 AMP Positive Abnormal NEGATIVE [facility] Comment on above: Performed By: #### C BC #### [facility] [address] [place] [address] Dr. Efren Parra BAR Negative Normal NEGATIVE [facility] Comment on above: Performed By: #### C BC #### [facility] [address] [place] [address] Dr. Efren Parra BUP Negative Normal NEGATIVE [facility] Comment on above: Performed By: #### C BC #### [facility] [address] [place] [address] Dr. Efren Parra BZO Negative Normal NEGATIVE [facility] Comment on above: Performed By: #### C BC #### [facility] [address] [place] [address] Dr. Efren Parra RENEA Negative Normal NEGATIVE [facility] Comment on above: Performed By: #### C BC #### [facility] [address] [place] [address] Dr. Efren Parra CUT-OFFS SEE BELOW Normal [facility] Comment on above: Result Comment: AMP [...] ng/mL Performed By: #### C BC #### [facility] [address] [place] [address] Dr. Efren Parra DRUG CUT HEADER DRUG CLASS TEST SYSTEM CUT-OFF CONCENTRATIONS ARE FOLLOWS: Normal [facility] Comment on above: Performed By: #### C BC #### [facility] [address] [place] [address] Dr. Efren Parra mAMP Positive Abnormal NEGATIVE [facility] Comment on above: Performed By: #### C BC #### [facility] [address] [place] [address] Dr. Efren Parra MTD Positive Abnormal NEGATIVE [facility] Comment on above: Performed By: #### C BC #### [facility] [address] [place] [address] Dr. Efren Parra OPI Negative Normal NEGATIVE [facility] Comment on above: Performed By: #### C BC #### [facility] [address] [place] [address] Dr. Efren Parra OXY Negative Normal NEGATIVE [facility] Comment on above: Performed By: #### C BC #### [facility] [address] [place] [address] Dr. Efren Parra PCP Negative Normal NEGATIVE [facility] Comment on above: Performed By: #### C BC #### [facility] [address] [place] [address] Dr. Efren Parra PPX Negative Normal NEGATIVE [facility] Comment on above: Performed By: #### C BC #### [facility] [address] [place] [address] Dr. Efren Parra TCA Positive Abnormal NEGATIVE [facility] Comment on above: Performed By: #### C BC #### [facility] [address] [place] [address] Dr. Efren Parra THC Negative Normal NEGATIVE [facility] Comment on above: Performed By: #### C BC #### [facility] [address] [address] [address] Efren Parra Dipstick and Microscopicon 0 01-12-2023 Appearance (U) Cloudy Critically abnormal Clear [facility] Comment on above: Order Comment: Name Collection Type:: Clean-Voided Midstream Performed By: #### U HCG, URDS, ADDONUAPLUS, CUU #### [facility] [address] [place] [address] [place] Bacteria,Urine 4+ High None Seen [facility] Comment on above: Order Comment: Name Collection Type:: Clean-Voided Midstream Performed By: #### U HCG, URDS, ADDONUAPLUS, CUU #### [facility] [address] [place] [address] [place] Bilirubin,Urine Negative Normal Negative [facility] Comment on above: Order Comment: Name Collection Type:: Clean-Voided Midstream Performed By: #### U HCG, URDS, ADDONUAPLUS, CUU #### [facility] [address] [place] [address] [place] Color (U) Yellow Normal Yellow [facility] Comment on above: Order Comment: Name Collection Type:: Clean-Voided Midstream Performed By: #### U HCG, URDS, ADDONUAPLUS, CUU #### [facility] [address] [place] [address] [place] Glucose Ql (U) Normal Normal Normal [facility] Comment on above: Order Comment: Name Collection Type:: Clean-Voided Midstream Performed By: #### U HCG, URDS, ADDONUAPLUS, CUU #### [facility] [address] [place] [address] [place] Hyaline Casts,Urine 9-19 High 0-8 [facility] Comment on above: Order Comment: Name Collection Type:: Clean-Voided Midstream Performed By: #### U HCG, URDS, ADDONUAPLUS, CUU #### [facility] [address] [place] [address] [place] Ketones Ql (U) Trace High Negative [facility] Comment on above: Order Comment: Name Collection Type:: Clean-Voided Midstream Performed By: #### U HCG, URDS, ADDONUAPLUS, CUU #### [address] Leukocyte esterase Test strip Ql (U) 2+ High Negative [facility] Comment on above: Order Comment: Name Collection Type:: Clean-Voided Midstream Performed By: #### U HCG, URDS, ADDONUAPLUS, CUU #### [facility] [address] [place] [address] Nitrite,Urine Positive High Negative [facility] Comment on above: Order Comment: Name Collection Type:: Clean-Voided Midstream Performed By: #### U HCG, URDS, ADDONUAPLUS, CUU #### [address] Occult Blood,Urine Trace High Negative [facility] Comment on above: Order Comment: Name Collection Type:: Clean-Voided Midstream Performed By: #### U HCG, URDS, ADDONUAPLUS, CUU #### [facility] [address] [place] [address] pH (U) 6.0 [pH] Normal 5.0-9.0 [facility] Comment on above: Order Comment: Name Collection Type:: Clean-Voided Midstream Performed By: #### U HCG, URDS, ADDONUAPLUS, CUU #### [facility] [address] [place] [address] [place] Protein,Urine Negative Normal Negative [facility] Comment on above: Order Comment: Name Collection Type:: Clean-Voided Midstream Performed By: #### U HCG, URDS, ADDONUAPLUS, CUU #### [facility] [address] [place] [address] [place] RBC,Urine 3-4 Normal 0-4 [facility] Comment on above: Order Comment: Name Collection Type:: Clean-Voided Midstream Performed By: #### U HCG, URDS, ADDONUAPLUS, CUU #### [address] [place] [address] [place] Specificy [place],Urine 1.020 Normal 1.001-1.030 [facility] Comment on above: Order Comment: Name Collection Type:: Clean-Voided Midstream Performed By: #### U HCG, URDS, ADDONUAPLUS, CUU #### [address] Squamous Epithelial Cell,Urine 5-9 High 0-2 [facility] Comment on above: Order Comment: Name Collection Type:: Clean-Voided Midstream Performed By: #### U HCG, URDS, ADDONUAPLUS, CUU #### [address] Urobilinogen,Urine Normal Normal Normal [facility] Comment on above: Order Comment: Name Collection Type:: Clean-Voided Midstream Performed By: #### U HCG, URDS, ADDONUAPLUS, CUU #### [address] WBC,Urine 10-19 High 0-4 [facility] Comment on above: Order Comment: Name Collection Type:: Clean-Voided Midstream Performed By: #### U HCG, URDS, ADDONUAPLUS, CUU #### [address] Discharge Instructionson Discharge Instructions [id number] 1.00CD:127 Normal [facility] Drug Screen,Urineon 01-13-20 23 Amphetamine Screen,Urine Positive High Negative [facility] Comment on above: Performed By: #### U HCG, URDS, ADDONUAPLUS, CUU #### [address] Barbiturate Screen,Urine Negative Normal Negative [facility] Comment on above: Performed By: #### U HCG, URDS, ADDONUAPLUS, CUU #### [address] Benzodiazepines Screen,Urine Negative Normal Negative [facility] Comment on above: Performed By: #### U HCG, URDS, ADDONUAPLUS, CUU #### [facility] [address] [place] [address] Cannabinoid Screen,Urine Negative Normal Negative [facility] Comment on above: Result Comment: Thes e are unconfirmed results and should not be used for legal purposes. Drug Cut-Off Concentration: AMPH 1000 ng/mL SARA 200 ng/mL MARTÍNEZ 200 ng/mL COCM 300 ng/mL OP 300 ng/mL PCP 25 ng/mL THC 20 ng/mL PERFORMED BY: [place] [address] PATHOLOGIST [employer] TECHNICIAN DANYELL LIVINGSTON M.D. Performed By: #### U HCG, URDS, ADDONUAPLUS, CUU #### [address] Cocaine Screen,Urine Negative Normal Negative [facility] Comment on above: Performed By: #### U HCG, URDS, ADDONUAPLUS, CUU #### [address] Opiate Screen,Urine Negative Normal Negative [facility] Comment on above: Performed By: #### U HCG, URDS, ADDONUAPLUS, CUU #### [address] Phencyclidine Screen,Urine Negative Normal Negative [facility] Comment on above: Performed By: #### U HCG, URDS, ADDONUAPLUS, CUU #### [facility] [address] [place] [address] ED Clinical Summaryon 2022 ED Clinical Summary [place] [id number] ED Clinical Summary Person Information Name: LORNA DEUTSCH[place] Age: 38 Years : 1985 Sex: Female Language: [place] PCP: Cris PENA CNP Marital Status: Phone: [phone] Visit Id: Visit Reason: Anxiety; Medical problem [...] 01/12/2023 02:02:29 01/12/2023 02:02:29 01/12/2023 02:02:29 ADDRESS: [address] [place] [address] [address] [phone] PHYS DOC NOTES: MEDICAL INFORMATION: Prescriptions Given: [...] With: Address: When: Cris PENA [address] [phone] Business (1) In 3 days 01/15/2023 Comments: You can use the hydroxyzine every 8 hours as needed. Please follow-up with your primary care doctor next 2 to 3 days. Please return to the ED for any new or worsening symptoms DIAGNOSIS: Anxiety; Drug-seeking behavior Normal [facility] ED Note-Nursingon 01-12-2023 ED Note-Nursing pt given [...] her boyfriend to drive her home Normal [facility] ED Note-Nursing pt arrived to ed fro m home via private car with her boyfriend c/o anxiety. pt states she missed her methadone appointment 4 days ago and has an appointment this morning. pt asking for ativan. pt denies any other compaints at this time. pt is very restless on assessment. Normal [facility] ED Note-Physicianon 01-13-20 ED Note-Physician Basic Information [...] and Complexity of Problems Differential Diagnosis: [] [facility] Data External documents reviewed: [] My [...] In 3 days 01/15/2023 EDT [address] [place] [address] Business (1) Additional Instructions: You can use [...] methadone, 180 (more content not included)... Normal [facility] Comment on above: Result Comment: Elec tronically Signed By: Norma Dietz DO\.az\Date and Time Signed: 01/12/23 01:54 EDT ED [...] Follow these instructions at home: ? Take jwvx-wny-fmqkutx and prescription medicines only as told by [...] A persistent (more content not included)... Normal [facility] ED Patient Summaryon 023 ED Patient Summary [place] [id number] Patient Discharge Instructions Person Information Name: LORNA DEUTSCH Age: 38 Years Arrival Date: 01/12/2023 01:30:57 Discharge Diagnosis: Anxiety; Drug-seeking behavior Primary Care Physician: Cris PENA CNP Provider Information Primary Provider: Norma Dietz DO Advanced Department Head College Or University:None The exam and treatment you received in the Emergency Department were for an urgent problem and are not intended as complete care. It is important that you follow up with a doctor, nurse practitioner, or physician?s outpatient physical therapist assistant for ongoing care. If your symptoms become worse or you do not improve as expected and you are unable to reach your usual health care provider, you should return to the Emergency Department. We are available 24 hours a day. LA NENALORNA has been given the following list of patient education materials, prescriptions and follow-up instructions: Follow-up Instructions: With: Address: When: Cris PENA [address] [place] [address] Business (1) In 3 days 01/15/2023 Comments: [...] opioids can be used to help relieve rggtebmc-cr-enywqm pain and are often prescribed following a [...] and overdose. (more content not included)... Normal [facility] ER URINE PROFILEon 3 Bilirubin Ql (U) Negative Normal NEGATIVE [facility] Comment on above: Performed By: #### C #### [facility] [address] [place] [address] Dr. Efren Parra Clarity (U) CLEAR Normal CLEAR [facility] Comment on above: Performed By: #### C BC #### [facility] [address] [place] [address] Dr. Efren Parra Color (U) YELLOW Normal YELLOW [facility] Comment on above: Performed By: #### C BC #### [facility] [address] [place] [address] Dr. Efren SETH A micrscopic examination will be performed if indicated. Normal [facility] Comment on above: Performed By: #### C BC #### [facility] [address] [place] [address] Dr. Efren Parra Glucose Ql (U) Negative Normal NEGATIVE [facility] Comment on above: Performed By: #### C BC #### [facility] [address] [place] [address] Dr. Efren Parra Hemoglobin Ql (U) SMALL Abnormal NEGATIVE [facility] Comment on above: Performed By: #### C BC #### [facility] [address] [place] [address] Dr. Efren Parra Ketones Ql (U) 15 mg/dl Abnormal NEGATIVE [facility] Comment on above: Performed By: #### C BC #### [facility] [address] [place] [address] Dr. Efren Parra LEUKOCYTES Negative Normal NEGATIVE [facility] Comment on above: Performed By: #### C BC #### [facility] [address] [place] [address] Dr. Efren Parra Nitrite Ql (U) Negative Normal NEGATIVE [facility] Comment on above: Performed By: #### C BC #### [facility] [address] [place] [address] Dr. Efren Parra pH (U) 7.0 [pH] Normal 5-9 [facility] Comment on above: Performed By: #### C BC #### [facility] [address] [place] [address] Dr. Efren Parra SPEC GRAVITY 1.020 Normal 1.005-<=1.025 [facility] Comment on above: Performed By: #### C BC #### [facility] [address] [place] [address] Dr. Efren Parra UA PROTEIN Negative Normal NEGATIVE/ TRACE [facility] Comment on above: Performed By: #### C BC #### [facility] [address] [place] [address] Dr. Efren Parra UR MICRO IND INDICATED Normal [facility] Comment on above: Performed By: #### C BC #### [facility] [address] [place] [address] Dr. Efren Parra Urobilinogen Qn (U) 1.0 {Adria'U}/dL Normal 0.2 - 1. 0 [facility] Comment on above: Performed By: #### C BC #### [facility] [address] [place] [address] Dr. Efren Parra ETHANOL (BLD ALC)on 01-13-20 23 ALC NOTE NOTE: 80 mg/dl is th e legal limit for a blood alcohol level Normal [facility] Comment on above: Performed By: #### P REG #### [facility] [address] [place] [address] Dr. Efren Parra Ethanol [Mass/Vol] mg/dL Normal [facility] Comment on above: Performed By: #### P REG #### [facility] [address] [place] [address] Dr. Efren Parra Eosinophils Auto (Bld) [#/Vo l]Ordered By: Jose Moses on 01-12-2023 Eosinophils (Bld) [#/Vol] 0.0 10*3/uL 0.0-0.45 [facility] Eosinophils/100 WBC Auto (Bl d)Ordered By: Jose Moses on 01-12-2023 Eosinophils/100 WBC (Bld) 0.2 % . [facility] Erythrocyte distribution wid th Auto (RBC) [Ratio]Ordered By: Jose Moses on 01-12-2023 Erythrocyte distribution width (RBC) [Ratio] 14.2 % 11.9-15.3 [facility] Ethanol [Mass/volume] in Ser um or PlasmaOrdered By: Jose Moses on 01-12-2023 Ethanol [Mass/Vol] mg/dL [facility] Ethanol [Mass/Vol] TNP [facility] Comment on above: Test not performed Ethyl Alcohol Profileon Ethanol [Mass/Vol] mg/dL Normal [facility] Comment on above: Performed By: #### U HCG, URDS, ADDONUAPLUS, CUU #### [facility] [address] Percent Ethanol Not performed Normal [facility] Comment on above: Result Comment: PERF ORMED BY: [place] [address] PATHOLOGIST [employer]AN[employer] TECHNICIAN DANYELL LIVINGSTON M.D. Performed By: #### U HCG, URDS, ADDONUAPLUS, CUU #### [facility] [address] Globulin Calc (S) [Mass/Vol] Ordered By: Jose Moses on 01-12-2023 Globulin (S) [Mass/Vol] 3.9 g/dL [facility] Glucose [Mass/volume] in Ser um or PlasmaOrdered By: Jose Moses on 01-12-2023 Glucose [Mass/Vol] 107 mg/dL 70-100 [facility] Comment on above: ADA recommended refe rence rangeRandom Glucose Reference Range is dependent on time and content of last meal. Glucose of more than 200 mg/dL in a nonstressed, ambulatory subject supports the diagnosis of Diabetes Mellitus. HCG ( test) IAantonina d Ql (U)Ordered By: Jose Moses on 01-12-2023 HCG ( test) Ql (U) Negative [facility] HCG,Urineon 01-12-2023 Beta HCG ( test) Ql (U) Negative Normal [facility] Comment on above: Order Comment: Name Collection Type:: Clean-Voided Midstream Result Comment: PERF ORMED BY: [place] [address] PATHOLOGIST [employer]AN[employer] TECHNICIAN DANYELL LIVINGSTON M.D. Performed By: #### U HCG, URDS, ADDONUAPLUS, CUU #### [facility] [address] Hematocrit Auto (Bld) [Volum e fraction]Ordered By: Jose Moses on 01-12-2023 Hematocrit (Bld) [Volume fraction] 47.7 % 34.0-46.4 [facility] Hemoglobin [Mass/volume] in BloodOrdered By: Jose Moses on 01-12-2023 Hemoglobin (Bld) [Mass/Vol] 16.1 g/dL 11.8-15.4 [facility] Ketones Auto test strip (U) [Mass/Vol]Ordered By: Jose Moses on 01-12-2023 Ketones (U) [Mass/Vol] Trace Negative [facility] - UrinalysisOrder ed By: Jose Moses on 01-12-2023 Hyaline casts LM Ql (Urine sed) 9-19 [LPF] 0-8 [facility] Leukocytes [#/volume] correc neema for nucleated erythrocytes in Blood by Automated counOrdered By: Jose Moses on 01-12-2023 WBC corrected for nucl RBC Auto (Bld) [#/Vol] 6.5 10*3/uL 3.8-11.6 [facility] Lymphocytes Auto (Bld) [#/Vo l]Ordered By: Jose Moses on 01-12-2023 Lymphocytes (Bld) [#/Vol] 1.7 10*3/uL 1.00-4.8 [facility] Lymphocytes/100 WBC Auto (Bl d)Ordered By: Jose Moses on 01-12-2023 Lymphocytes/100 WBC (Bld) 25.4 % . [facility] MCH Auto (RBC) [Entitic mass ]Ordered By: Jose Moses on 01-12-2023 MCH (RBC) [Entitic mass] 30.9 pg 24.7-34.3 [facility] MCHC Auto (RBC) [Mass/Vol]Or dered By: Jose Moses on 01-12-2023 MCHC (RBC) [Mass/Vol] 33.7 g/dL 32.0-35.0 [facility] MCV Auto (RBC) [Entitic vol] Ordered By: Jose Moses on 01-12-2023 MCV (RBC) [Entitic vol] 91.9 fL 80-100 [facility] Monocyte distribution width [Entitic volume] in Blood by AutomatedOrdered By: Jose Moses on 01-12-2023 Monocyte distribution width Auto (Bld) [Entitic vol] 17.67 % 0.00-20.00 [facility] Monocytes Auto (Bld) [#/Vol] Ordered By: Jose Moses on 01-12-2023 Monocytes (Bld) [#/Vol] 0.3 10*3/uL 0.0-0.8 [facility] Monocytes/100 WBC Auto (Bld) Ordered By: Jose Moses on 01-12-2023 Monocytes/100 WBC (Bld) 5.2 % . [facility] Neutrophils Auto (Bld) [#/Vo l]Ordered By: Jose Moses on 01-12-2023 Neutrophils (Bld) [#/Vol] 4.5 10*3/uL 1.8-7.7 [facility] Neutrophils/100 WBC Auto (Bl d)Ordered By: Jose Moses on 01-12-2023 Neutrophils/100 WBC (Bld) 68.9 % . [facility] Nitrite Test strip Ql (U)Ord ered By: Jose Moses on 01-12-2023 Nitrite Ql (U) Positive Negative [facility] No Panel InformationOrdered By: Jose Moses on 01-12-2023 Estimated GFR (CKD-EPI) > 60.0 mL/Min [facility] Creatinine Clearance (Chem 105.60 [facility] Nucleated erythrocytes [Pres ence] in Blood by Automated countOrdered By: Jose Moses on 01-12-2023 Nucleated RBC Auto Ql (Bld) 0.1 /100{WBC} 0-0.5 [facility] Opiates [Presence] in Urine by Screen methodOrdered By: Jose Moses on 01-12-2023 Opiates Screen Ql (U) Negative Negative [facility] URon 01-12-2023 , QUAL Negative Normal NEGATIVE [facility] Comment on above: Performed By: #### C BC #### [facility] [address] [place] [address] Dr. Efren Parra PROF 14(COMP METB)on 023 Albumin [Mass/Vol] 4.3 g/dL Normal 3.4-5.0 [facility] Comment on above: Performed By: #### P REG #### [facility] [address] [place] [address] Dr. Efren Parra Albumin/Globulin [Mass ratio] 1.0 {ratio} Normal [facility] Comment on above: Performed By: #### P REG #### [facility] [address] [place] [address] Dr. Efren Parra ALP [Catalytic activity/Vol] 58 U/L Normal 46-116 [facility] Comment on above: Performed By: #### P REG #### [facility] [address] [place] [address] Dr. Efren Parra ALT [Catalytic activity/Vol] 17 U/L Normal 14-59 [facility] Comment on above: Performed By: #### P REG #### [facility] [address] [place] [address] Dr. Efren Parra Anion gap [Moles/Vol] 17.6 mmol/L Normal [facility] Comment on above: Performed By: #### P REG #### [facility] [address] [place] [address] Dr. Efren Parra AST [Catalytic activity/Vol] 11 U/L Critically low 15-37 [facility] Comment on above: Performed By: #### P REG #### [facility] [address] [place] [address] Dr. Efren Parra Bilirubin [Mass/Vol] 0.4 mg/dL Normal 0.2-1.0 [facility] Comment on above: Performed By: #### P REG #### [facility] [address] [place] [address] Dr. Efren Parra Calcium [Mass/Vol] 9.8 mg/dL Normal 8.5-10.1 [facility] Comment on above: Performed By: #### P REG #### [facility] [address] [address] [address] Efrne Parra Chloride [Moles/Vol] 102 mmol/L Normal 98-107 [facility] Comment on above: Performed By: #### P REG #### [facility] [address] [place] [address] Dr. Efren Parra CO2 [Moles/Vol] 25.1 mmol/L Normal 21.0-32.0 [facility] Comment on above: Performed By: #### P REG #### [facility] [address] [place] [address] Dr. Efren Parra Creatinine [Mass/Vol] 0.75 mg/dL Normal 0.55-1.02 [facility] Comment on above: Performed By: #### P REG #### [facility] [address] [place] [address] Dr. Efren Parra EGFR-AF CHINESE >60 Normal >=60 [facility] Comment on above: Performed By: #### P REG #### [facility] [address] [place] [address] Dr. Efren Parra EGFR-NON AF CHINESE >60 Normal >=60 [facility] Comment on above: Performed By: #### P REG #### [facility] [address] [address] [address] Efren Parra Globulin (S) [Mass/Vol] 4.2 g/dL Normal [facility] Comment on above: Performed By: #### P REG #### [facility] [address] [address] [address] Efren Parra Glucose [Mass/Vol] 105 mg/dL Normal 74-106 [facility] Comment on above: Performed By: #### P REG #### [facility] [address] [address] [address] Efren Parra Potassium [Moles/Vol] 3.7 mmol/L Normal 3.5-5.1 [facility] Comment on above: Performed By: #### P REG #### [facility] [address] [place] [address] Dr. Efren Parra Protein [Mass/Vol] 8.5 g/dL Critically high 6.4-8.2 [facility] Comment on above: Performed By: #### P REG #### [facility] [address] [address] [address] Efren Parra Sodium [Moles/Vol] 141 mmol/L Normal 136-145 [facility] Comment on above: Performed By: #### P REG #### [facility] [address] [address] [address] Efren Parra Urea nitrogen [Mass/Vol] 17.0 mg/dL Normal 7.0-18.0 [facility] Comment on above: Performed By: #### P REG #### [facility] [address] [address] [address] Efren Parra Urea nitrogen/Creatinine [Mass ratio] 22.7 mg/mg Normal [facility] Comment on above: Performed By: #### P REG #### [facility] [address] [address] [address] Efren Parra Phencyclidine Screen Ql (U)O rdered By: Jose Moses on 01-12-2023 Phencyclidine Ql (U) Negative Negative [facility] Platelet mean volume Auto (B ld) [Entitic vol]Ordered By: Jose Moses on 01-12-2023 Platelet mean volume (Bld) [Entitic vol] 8.7 fL 6.3-10.7 [facility] Platelets Auto (Bld) [#/Vol] Ordered By: Jose Moses on 01-12-2023 Platelets (Bld) [#/Vol] 275 10*3/uL 150-450 [facility] Potassium [Moles/volume] in Serum or PlasmaOrdered By: Jose Moses on 01-12-2023 Potassium [Moles/Vol] 3.0 mmol/L 3.5-5.1 [facility] Protein Auto test strip (U) [Mass/Vol]Ordered By: Jose Moses on 01-12-2023 Protein (U) [Mass/Vol] Negative Negative [facility] Protein [Mass/volume] in Ser um or PlasmaOrdered By: Jose Moses on 04-03-2023 Protein [Mass/Vol] 9.2 g/dL 6.4-8.9 [facility] RBC Auto (Bld) [#/Vol]Ordere d By: Jose Moses on 01-12-2023 RBC (Bld) [#/Vol] 5.19 10*6/uL 3.60-5.00 [facility] Serum or plasma albumin/glob ulin mass ratioOrdered By: Jose Moses on 01-12-2023 Albumin/Globulin [Mass ratio] 1.4 {ratio} [facility] Serum or plasma anion gap de terminationOrdered By: Jose Moses on 01-12-2023 Anion gap [Moles/Vol] 13.1 mmol/L 6.0-15.0 [facility] Sodium [Moles/volume] in Ser um or PlasmaOrdered By: Jose Moses on 01-12-2023 Sodium [Moles/Vol] 139 mmol/L 136-145 [facility] Specific gravity Auto test s trip (U) [Rel density]Ordered By: Jose Moses on 01-12-2023 Specific gravity (U) [Rel density] 1.020 1.001-1.030 [facility] Squamous epithelial cells de tection in urine sediment by light microscopyOrdered By: Jose Moses on 01-12-2023 Epithelial cells.squamous LM Ql (Urine sed) 5-9 [HPF] 0-2 [facility] URINE MICROSCOPIC ONLYon BACTERIA LARGE Abnormal NONE SEEN [facility] Comment on above: Performed By: #### C BC #### [facility] [address] [place] [address] Dr. Efren Parra Bacteria identified Cx Nom (U) INDICATED Normal [facility] Comment on above: Performed By: #### C BC #### [facility] [address] [address] [address] Efren Parra CAST NONE SEEN Normal NONE SEEN [facility] Comment on above: Performed By: #### C BC #### [facility] [address] [place] [address] Dr. Efren Parra Crystals LM Nom (Urine sed) NONE SEEN Normal NONE SEEN [facility] Comment on above: Performed By: #### C BC #### [facility] [address] [place] [address] Dr. Efren Parra Epithelial cells LM Ql (Urine sed) FEW Abnormal NONE SEEN /RARE [facility] Comment on above: Performed By: #### C BC #### [facility] [address] [address] [address] Efren Parra MUCOUS NONE SEEN Normal NONE SEEN [facility] Comment on above: Performed By: #### C BC #### [facility] [address] [place] [address] Dr. Efren Parra RBC 2-5 Abnormal 0-2 [facility] Comment on above: Performed By: #### C BC #### [facility] [address] [place] [address] Dr. Efren Parra WBC 0-2 Abnormal NONE SEEN [facility] Comment on above: Performed By: #### C BC #### [facility] [address] [place] [address] Dr. Efren Parra Urea nitrogen [Mass/volume] in Serum or PlasmaOrdered By: Jose Moses on 01-12-2023 Urea nitrogen [Mass/Vol] 14 mg/dL 7-25 [facility] Urine Cultureon 01-12-2023 Bacteria identified Cx Nom (U) ORGANISM: Escherichia coli (O:ESCCOL) [place] Count >100,000 Aerobic ATUL Charge (NMIC56) ---- [...] RESISTANT TO ALL B-LACTAM DRUGS. PERFORMED BY: [place] [address] PATHOLOGIST INDUSTRIAL CLEANING TECHNICIAN DANYELL LIVINGSTON M.D. [facility] Comment on above: Performed By: #### U HCG, URDS, ADDONUAPLUS, CUU #### [facility] [address] [place] [address] Urine bacteria detection by automated methodOrdered By: Jose Moses on 01-12-2023 Bacteria Auto Ql (U) 4+ None Seen [facility] Urine clarity by refractomet ry automatedOrdered By: Jose Moses on 01-12-2023 Clarity Refractometry automated (U) Cloudy Clear [facility] Urine culture routineOrdered By: Jose Moses on 01-12-2023 Bacteria identified Cx Nom (U) Escherichia coli [facility] Urine glucose measurement by automated test strip (mass/volume)Ordered By: Jose Moses on 01-12-2023 Glucose Auto test strip (U) [Mass/Vol] Normal mg/dL Normal [facility] Urine hemoglobin detection b y automated test stripOrdered By: Jose Moses on 01-12-2023 Hemoglobin Auto test strip Ql (U) Trace Negative [facility] Urine leukocyte esterase det ection by automated test stripOrdered By: Jose Moses on 01-12-2023 Leukocyte esterase Auto test strip Ql (U) 2+ Negative [facility] Urobilinogen Auto test strip (U) [Mass/Vol]Ordered By: Jose Moses on 01-12-2023 Urobilinogen (U) [Mass/Vol] Normal mg/dL Normal [facility] WBC Auto (Bld) [#/Vol]Ordere d By: Jose Moses on 01-12-2023 WBC (Bld) [#/Vol] 6.5 10*3/uL 3.8-11.6 [facility] XR CHEST 1 Von 01-12-2023 XR CHEST [...] AMAYA BRANCH Date: 2023-01-12 00:46 Normal [facility] pH Auto test strip (U)Ordere d By: Jose Moses on 01-12-2023 pH (U) 6.0 [pH] 5.0-9.0 [facility] Coding Summary.on 2023 Coding Summary. CD:[id number] W w+PGhlYWQ+EB4PIAXuN91 nfEXtrA7gC2WUSGdMYyxi RQEVYLzCAeLnbhNlFJ7wu XNjZXJu IC8+JB6vCWXiKcizkWWpd 1U5nIH0G63pgy8eUCsjbC B4EJToEpIymyixa4lyzEm 6IDcuNmluOyBt OCMtqF66SCC6jI66Qs57p KUicGYux0gtaRp6GiYaNV WbMGZ6mFuoNFqfx7QiARM oR56gmRTqr5Y5 JVLwsIxcgPOnBrZizKV3l I3tUUrleskja6odrdncYg f5au01dRJlf0R8pFO6A3F jrqE4ZTUlcTSq EaeojVYYxN3mwcdzj5mik zjuDbZjDPXyLAh8CDa7OZ EhhDhoSfMhIT80NQJ9ZXL rxoNgT1SjRAWd rWirQeB4l1Z7Bn8XS5SXV fbfK9KQIKEOMSgszUL+PC 48ew54O2JjEiudJax3HXX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 [facility] Comment on above: Performed By: #### U HCG, URDS, ADDONUAPLUS, CUU #### [facility] [address] [place] [address] [place] Globulin (S) [Mass/Vol] 2.7 g/dL Normal [facility] Comment on above: Performed By: #### U HCG, URDS, ADDONUAPLUS, CUU #### [address] Glucose [Mass/Vol] 105 mg/dL High 70-100 [facility] Comment on above: Result Comment: [place] Glucose Reference Range is dependent on time and content of last meal. Glucose of more than 200 mg/dL in a nonstressed, ambulatory subject supports the diagnosis of Diabetes Mellitus. ADA recommended reference range Performed By: #### U HCG, URDS, ADDONUAPLUS, CUU #### [facility] [address] Potassium [Moles/Vol] 3.8 mmol/L Normal 3.5-5.1 [facility] Comment on above: Performed By: #### U HCG, URDS, ADDONUAPLUS, CUU #### [facility] [address] [place] [address] [place] Protein [Mass/Vol] 6.6 g/dL Normal 6.1-7.9 [facility] Comment on above: Performed By: #### U HCG, URDS, ADDONUAPLUS, CUU #### [facility] [address] [place] [address] [place] Sodium [Moles/Vol] 134 mmol/L Low 136-146 [facility] Comment on above: Performed By: #### U HCG, URDS, ADDONUAPLUS, CUU #### [facility] [address] [place] [address] Urea nitrogen [Mass/Vol] 6 mg/dL Low 9-23 [facility] Comment on above: Performed By: #### U HCG, URDS, ADDONUAPLUS, CUU #### [facility] [address] [place] [address] Creatinine and Glomerular fi ltration rate.predicted panel (S/P/Bld)Ordered By: Nito Walton on 11-20-2022 Creatinine [Mass/Vol] 0.58 mg/dL 0.44-1.03 [facility] Drug Screen,Urineon 11-20-19 Amphetamine Screen,Urine Positive High Negative [facility] Comment on above: Performed By: #### U HCG, URDS, ADDONUAPLUS, CUU #### [facility] [address] [place] [address] Barbiturate Screen,Urine Negative Normal Negative [facility] Comment on above: Performed By: #### U HCG, URDS, ADDONUAPLUS, CUU #### [facility] [address] [place] [address] [place] Benzodiazepines Screen,Urine Positive High Negative [facility] Comment on above: Performed By: #### U HCG, URDS, ADDONUAPLUS, CUU #### [facility] [address] [place] [address] Cannabinoid Screen,Urine Negative Normal Negative [facility] Comment on above: Result Comment: Thes e are unconfirmed results and should not be used for legal purposes. Drug Cut-Off Concentration: AMPH 1000 ng/mL SARA 200 ng/mL MARTÍNEZ 200 ng/mL COCM 300 ng/mL OP 300 ng/mL PCP 25 ng/mL THC 20 ng/mL PERFORMED BY: [place] [address] PATHOLOGIST INDUSTRI[employer] CLEANING TECHNICIAN DANYELL LIVINGSTON M.D. Performed By: #### U HCG, URDS, ADDONUAPLUS, CUU #### [facility] [address] [place] [address] [place] Cocaine Screen,Urine Negative Normal Negative [facility] Comment on above: Performed By: #### U HCG, URDS, ADDONUAPLUS, CUU #### [facility] [address] Opiate Screen,Urine Negative Normal Negative [facility] Comment on above: Performed By: #### U HCG, URDS, ADDONUAPLUS, CUU #### [facility] [address] Phencyclidine Screen,Urine Negative Normal Negative [facility] Comment on above: Performed By: #### U HCG, URDS, ADDONUAPLUS, CUU #### [facility] [address] Eosinophils Auto (Bld) [#/Vo l]Ordered By: Nito Walton on 11-20-2022 Eosinophils (Bld) [#/Vol] 0.1 10*3/uL 0.0-0.45 [facility] Eosinophils/100 WBC Auto (Bl d)Ordered By: Nito Walton on 11-20-2022 Eosinophils/100 WBC (Bld) 0.5 % . [facility] Erythrocyte distribution wid th Auto (RBC) [Ratio]Ordered By: Nito Walton on 11-20-2022 Erythrocyte distribution width (RBC) [Ratio] 14.3 % 11.9-15.3 [facility] Estimated glomerular filtrat ion rate (GFR) non- AmericanOrdered By: Nito Walton on 11-20-2022 GFR/1.73 sq M.predicted among non-blacks MDRD (S/P/Bld) [Vol rate/Area] > 60 mL/Min [facility] Ethyl Alcohol Profileon Ethanol [Mass/Vol] mg/dL Normal [facility] Comment on above: Performed By: #### U HCG, URDS, ADDONUAPLUS, CUU #### [facility] [address] [place] [address] Percent Ethanol Not performed Normal [facility] Comment on above: Result Comment: PERF ORMED BY: [facility] [address] [place] [address] PATHOLOGIST INDUSTRI[employer] CLEANING TECHNICIAN DANYELL LIVINGSTON M.D. Performed By: #### U HCG, URDS, ADDONUAPLUS, CUU #### [facility] [address] Globulin Calc (S) [Mass/Vol] Ordered By: Nito Walton on 11-20-2022 Globulin (S) [Mass/Vol] 2.7 g/dL [facility] Hematocrit Auto (Bld) [Volum e fraction]Ordered By: Nito Walton on 11-20-2022 Hematocrit (Bld) [Volume fraction] 41.9 % 34.0-46.4 [facility] Hemoglobin [Mass/volume] in BloodOrdered By: Nito Walton on 11-20-2022 Hemoglobin (Bld) [Mass/Vol] 14.1 g/dL 11.8-15.4 [facility] Laboratory - Drug toxicology Ordered By: Nito Walton on 11-20-2022 Opiates Ql (U) Negative Negative [facility] Leukocytes [#/volume] correc neema for nucleated erythrocytes in Blood by Automated counOrdered By: Nito Walton on 11-20-2022 WBC corrected for nucl RBC Auto (Bld) [#/Vol] 12.4 10*3/uL 3.8-11.6 [facility] Lymphocytes Auto (Bld) [#/Vo l]Ordered By: Nito Walton on 11-20-2022 Lymphocytes (Bld) [#/Vol] 2.5 10*3/uL 1.00-4.8 [facility] Lymphocytes/100 WBC Auto (Bl d)Ordered By: Nito Walton on 11-20-2022 Lymphocytes/100 WBC (Bld) 20.0 % . [facility] MCH Auto (RBC) [Entitic mass ]Ordered By: Nito Walton on 11-20-2022 MCH (RBC) [Entitic mass] 30.9 pg 24.7-34.3 [facility] MCHC Auto (RBC) [Mass/Vol]Or dered By: Nito Walton on 11-20-2022 MCHC (RBC) [Mass/Vol] 33.6 g/dL 32.0-35.0 [facility] MCV Auto (RBC) [Entitic vol] Ordered By: Nito Walton on 11-20-2022 MCV (RBC) [Entitic vol] 92.1 fL 80-100 [facility] Monocyte distribution width [Entitic volume] in Blood by AutomatedOrdered By: Nito Walton on 11-20-2022 Monocyte distribution width Auto (Bld) [Entitic vol] 20.73 % 0.00-20.00 [facility] Comment on above: For adults in ED, MD W > 20.0 may be associated with a higher risk of sepsis during the first 12 hrs of hospital admission Monocytes Auto (Bld) [#/Vol] Ordered By: Nito Walton on 11-20-2022 Monocytes (Bld) [#/Vol] 0.7 10*3/uL 0.0-0.8 [facility] Monocytes/100 WBC Auto (Bld) Ordered By: Nito Walton on 11-20-2022 Monocytes/100 WBC (Bld) 5.8 % . [facility] Neutrophils Auto (Bld) [#/Vo l]Ordered By: Nito Walton on 11-20-2022 Neutrophils (Bld) [#/Vol] 9.1 10*3/uL 1.8-7.7 [facility] Neutrophils/100 WBC Auto (Bl d)Ordered By: Nito Walton on 11-20-2022 Neutrophils/100 WBC (Bld) 73.4 % . [facility] No Panel InformationOrdered By: Nito Walton on 11-20-2022 Estimated GFR () > 60 mL/Min [facility] Comment on above: GFR estimated refere nce range: According to KDOQI guidelines, <60 ml/min/1.73m2 is sufficient to diagnose a patient with chronic kidney disease. Pharmacy Creatinine Clearance (Chem 124.32 [facility] Nucleated erythrocytes [Pres ence] in Blood by Automated countOrdered By: Nito Walton on 11-20-2022 Nucleated RBC Auto Ql (Bld) 0.1 /100{WBC} 0-0.5 [facility] Phencyclidine Screen Ql (U)O rdered By: Nito Walton on 11-20-2022 Phencyclidine Ql (U) Negative Negative [facility] Platelet mean volume Auto (B ld) [Entitic vol]Ordered By: Nito Walton on 11-20-2022 Platelet mean volume (Bld) [Entitic vol] 9.9 fL 6.3-10.7 [facility] Platelets Auto (Bld) [#/Vol] Ordered By: Nito Walton on 11-20-2022 Platelets (Bld) [#/Vol] 202 10*3/uL 150-450 [facility] Protein [Mass/volume] in Ser um or PlasmaOrdered By: Nito Walton on 11-20-2022 Protein [Mass/Vol] 6.6 g/dL 6.1-7.9 [facility] RBC Auto (Bld) [#/Vol]Ordere d By: Nito Walton on 11-20-2022 RBC (Bld) [#/Vol] 4.55 10*6/uL 3.60-5.00 [facility] Serum or plasma alanine preston otransferase measurement without P-5'-P (enzymatic activiOrdered By: Nito Walton on 11-20-2022 ALT No additional P-5'-P [Catalytic activity/Vol] 30 U/L 10-60 [facility] Serum or plasma albumin/glob ulin mass ratioOrdered By: Nito Walton on 11-20-2022 Albumin/Globulin [Mass ratio] 1.4 {ratio} [facility] Serum or plasma alkaline harris sphatase measurement (enzymatic activity/volume)Ordered By: Nito Walton on 11-20-2022 ALP [Catalytic activity/Vol] 40 U/L 32-92 [facility] Serum or plasma anion gap de terminationOrdered By: Nito Walton on 11-20-2022 Anion gap [Moles/Vol] 15.9 mmol/L 6.0-15.0 [facility] Serum or plasma aspartate am inotransferase measurement (enzymatic activity/volume)Ordered By: Nito Walton on 11-20-2022 AST [Catalytic activity/Vol] 29 U/L 10-42 [facility] Serum or plasma calcium randall urement (mass/volume)Ordered By: Nito Walton on 11-20-2022 Calcium [Mass/Vol] 9.6 mg/dL 8.2-10.2 [facility] Serum or plasma chloride fabian surement (moles/volume)Ordered By: Nito Walton on 11-20-2022 Chloride [Moles/Vol] 97 mmol/L 95-114 [facility] Serum or plasma ethanol randall urement (mass/volume)Ordered By: Nito Walton on 11-20-2022 Ethanol [Mass/Vol] mg/dL [facility] Ethanol [Mass/Vol] TNP [facility] Comment on above: Test not performed Serum or plasma glucose randall urement (mass/volume)Ordered By: Nito Walton on 11-20-2022 Glucose [Mass/Vol] 105 mg/dL 70-100 [facility] Comment on above: ADA recommended refe rence rangeRandom Glucose Reference Range is dependent on time and content of last meal. Glucose of more than 200 mg/dL in a nonstressed, ambulatory subject supports the diagnosis of Diabetes Mellitus. Serum or plasma potassium me asurement (moles/volume)Ordered By: Nito Walton on 11-20-2022 Potassium [Moles/Vol] 3.8 mmol/L 3.5-5.1 [facility] Serum or plasma sodium measu rement (moles/volume)Ordered By: Nito Walton on 11-20-2022 Sodium [Moles/Vol] 134 mmol/L 136-146 [facility] Serum or plasma total biliru bin measurement (mass/volume)Ordered By: Nito Walton on 11-20-2022 Bilirubin [Mass/Vol] 0.7 mg/dL 0.3-1.2 [facility] Serum or plasma total carbon dioxide measurement (moles/volume)Ordered By: Nito Walton on 11-20-2022 CO2 [Moles/Vol] 24.9 mmol/L 22.0-30.0 [facility] Serum or plasma urea nitroge n measurement (mass/volume)Ordered By: Nito Walton on 11-20-2022 Urea nitrogen [Mass/Vol] 6 mg/dL 9-23 [facility] Urine cocaine detectionOrder ed By: Nito Walton on 11-20-2022 Cocaine Ql (U) Negative Negative [facility] WBC Auto (Bld) [#/Vol]Ordere d By: Nito Walton on 11-20-2022 WBC (Bld) [#/Vol] 12.4 10*3/uL 3.8-11.6 [facility] CHEMISTRYOrdered By: SYSTEM SYSTEM on 11-10-2022 Amphetamines [...] [facility] Remisol Ethanol [Mass/Vol] mg/dL Normal <=7mg/dL [facility] [place] emisol GFR/1.73 sq M.predicted among blacks MDRD (S/P/Bld) [Vol rate/Area] mL/min/1.73 m2 Normal >=59mL/min/1. 73 m2 [facility] [place] Chem S GFR/1.73 sq M.predicted among non-blacks MDRD (S/P/Bld) [Vol rate/Area] mL/min/1.73 m2 Normal >=59mL/min/1. 73 m2 [facility] [place] Chem S Globulin (S) [...] POS [place] (11/10/22 12:58 AM) Normal [facility] SARS-CoV+SARS-CoV-2 (COVID-19) Ag [...] Interpretation Code Negative [facility] UA Auto SS [place].plasma/[place]. RBC (Bld) [Mass ratio] 4-20 /HPF Normal [...] [facility] UA Auto SS Urobilinogen Qn (U) 1.9892300 {Adria'U}/dL Normal 0.0 - 1.0 EU/dL [facility] UA Auto SS WBC Auto Ql (U) Negative (11/10/22 1:49 AM) Normal Negative [facility] UA Auto SS WBC LM.HPF (Urine sed) [#/Area] 0-5 /HPF Normal 0-5/HPF [facility] UA Auto SS COVID-19 SOFIAOrdered By: Ezio Reyes on 08-08-2022 SARS-CoV+SARS-CoV-2 (COVID-19) Ag IA.rapid Ql (Resp) Negative Negative [facility] Comment on above: This is a duplicate Martina SARS Antigen (NATE) result to be used for statistical tracking purpose only. No Panel InformationOrdered By: Rachael Reyes on 08-08-2022 SARS Antigen (LFIA) [facility] XR CHEST 1 Von 06-23-2022 XR [...] ALBINA BRODERICK Date: 2022-06-22 22:40 Normal [facility] CBC AUTO DIFFon 06-22-2022 BASO # 0.0 103/ul Normal 0.0-0.1 [facility] Comment on above: Performed By: #### C BC #### [facility] [address] [place] [address] Dr. Efren Parra Basophils/100 WBC (Bld) 0.2 % Normal 0.2-2.0 [facility] Comment on above: Performed By: #### C BC #### [facility] [address] [place] [address] Dr. Efren Parra EO # 0.0 103/ul Normal 0.0-0.7 [facility] Comment on above: Performed By: #### C BC #### [facility] [address] [place] [address] Dr. Efren Parra Eosinophils/100 WBC (Bld) 0.1 % Critically low 0.9-7.0 [facility] Comment on above: Performed By: #### C BC #### [facility] [address] [place] [address] Dr. Efren Parra Erythrocyte distribution width (RBC) [Ratio] 12.9 % Normal 11.0-15.0 [facility] Comment on above: Performed By: #### C BC #### [facility] [address] [place] [address] Dr. Efren Parra Hematocrit (Bld) [Volume fraction] 37.0 % Normal 36.0-48.0 [facility] Comment on above: Performed By: #### C BC #### [facility] [address] [place] [address] Dr. Efren Parra Hemoglobin (Bld) [Mass/Vol] 12.6 g/dL Normal 12.0-16.0 [facility] Comment on above: Performed By: #### C BC #### [facility] [address] [place] [address] Dr. Efren Parra IG # 0.06 10e3/ul Critically high 0.00-0.03 [facility] Comment on above: Performed By: #### C BC #### [facility] [address] [place] [address] Dr. Efren Parra IG % 0.5 % Normal 0.0-0.5 [facility] Comment on above: Performed By: #### C BC #### [facility] [address] [place] [address] Dr. Erfen Parra LYMPH # 4.8 103/ul Critically high 1.2-3.8 [facility] Comment on above: Performed By: #### C BC #### [facility] [address] [place] [address] Dr. Efren Parra Lymphocytes/100 WBC (Bld) 36.3 % Normal 20.5-60.0 [facility] Comment on above: Performed By: #### C BC #### [facility] [address] [place] [address] Dr. Efren Parra MANUAL DIFF REQ NO Normal [facility] Comment on above: Performed By: #### C BC #### [facility] [address] [place] [address] Dr. Efren Parra MCH (RBC) [Entitic mass] 31.7 pg Normal 26.7-34.0 [facility] Comment on above: Performed By: #### C BC #### [facility] [address] [place] [address] Dr. Efren Parra MCHC (RBC) [Mass/Vol] 34.1 g/dL Normal 29.9-35.2 [facility] Comment on above: Performed By: #### C BC #### [facility] [address] [place] [address] Dr. Efren Parra MCV (RBC) [Entitic vol] 93.0 fL Normal 81.0-99.0 [facility] [place] Comment on above: Performed By: #### C BC #### [facility] [address] [place] [address] Dr. Efren Parra MONO # 0.8 103/ul Normal 0.3-0.8 [facility] Comment on above: Performed By: #### C BC #### [facility] [address] [address] [address] Efren Parra Monocytes/100 WBC (Bld) 5.8 % Normal 1.7-12.0 [facility] [place] Comment on above: Performed By: #### C BC #### [facility] [address] [address] [address] Efren Parra NEUT # 7.6 103/ul Critically high 1.4-6.5 [facility] Comment on above: Performed By: #### C BC #### [facility] [address] [place] [address] Dr. Efren Parra Neutrophils/100 WBC (Bld) 57.1 % Normal 43.0-75.0 [facility] Comment on above: Performed By: #### C BC #### [facility] [address] [place] [address] Dr. Efren Parra Platelet mean volume (Bld) [Entitic vol] 10.7 fL Normal 9.5-13.5 [facility] Comment on above: Performed By: #### C BC #### [facility] [address] [place] [address] Dr. Efren Parra PLT 270 103/ul Normal 150-450 [facility] Comment on above: Performed By: #### C BC #### [facility] [address] [address] [address] Efren Parra RBC 3.98 106/ul Critically low 4.20-5.40 [facility] Comment on above: Performed By: #### C BC #### [facility] [address] [place] [address] Dr. Efren Parra WBC 13.2 103/ul Critically high 4.0-11.0 [facility] Comment on above: Performed By: #### C BC #### [facility] [address] [place] [address] Dr. Efren Parra D-DIMERon 06-22-2022 D-DIMER 0.24 mg/L FEU Normal <=0.59 [facility] Comment on above: Performed By: #### C BC #### [facility] [address] [place] [address] Dr. Efren Parra D-DIMER COMMENTS SEE BELOW Normal [facility] Comment on above: Result Comment: Incr [...] hospitalization. Performed By: #### C BC #### [facility] [address] [place] [address] Dr. Efren Parra PROF 14(COMP METB)on 022 Albumin [Mass/Vol] 3.4 g/dL Normal 3.4-5.0 [facility] Comment on above: Performed By: #### C BC #### [facility] [address] [place] [address] Dr. Efren Parra Albumin/Globulin [Mass ratio] 0.9 {ratio} Normal [facility] Comment on above: Performed By: #### C BC #### [facility] [address] [place] [address] Dr. Efren Parra ALP [Catalytic activity/Vol] 49 U/L Normal 46-116 [facility] Comment on above: Performed By: #### C BC #### [facility] [address] [place] [address] Dr. Efren Parra ALT [Catalytic activity/Vol] 14 U/L Normal 14-59 [facility] Comment on above: Performed By: #### C BC #### [facility] [address] [place] [address] Dr. Efren Parra Anion gap [Moles/Vol] 15.1 mmol/L Normal [facility] Comment on above: Performed By: #### C BC #### [facility] [address] [address] [address] Efren Parra AST [Catalytic activity/Vol] 14 U/L Critically low 15-37 [facility] Comment on above: Performed By: #### C BC #### [facility] [address] [address] [address] Efren Parra Bilirubin [Mass/Vol] 0.2 mg/dL Normal 0.2-1.0 [facility] Comment on above: Performed By: #### C BC #### [facility] [address] [address] [address] Efren Parra Calcium [Mass/Vol] 8.9 mg/dL Normal 8.5-10.1 [facility] Comment on above: Performed By: #### C BC #### [facility] [address] [place] [address] Dr. Efren Parra Chloride [Moles/Vol] 102 mmol/L Normal 98-107 [facility] Comment on above: Performed By: #### C BC #### [facility] [address] [address] [address] Efren Parra CO2 [Moles/Vol] 25.9 mmol/L Normal 21.0-32.0 [facility] Comment on above: Performed By: #### C BC #### [facility] [address] [address] [address] Efren Parra Creatinine [Mass/Vol] 0.72 mg/dL Normal 0.55-1.02 [facility] Comment on above: Performed By: #### C BC #### [facility] [address] [address] [address] Efren Parra EGFR-AF CHINESE >60 Normal >=60 [facility] Comment on above: Performed By: #### C BC #### [facility] [address] [place] [address] Dr. Efren Parra EGFR-NON AF CHINESE >60 Normal >=60 [facility] Comment on above: Performed By: #### C BC #### [facility] [address] [address] [address] Efren Parra Globulin (S) [Mass/Vol] 3.8 g/dL Normal [facility] Comment on above: Performed By: #### C BC #### [facility] [address] [place] [address] Dr. Efren Parra Glucose [Mass/Vol] 92 mg/dL Normal 74-106 [facility] Comment on above: Performed By: #### C BC #### [facility] [address] [place] [address] Dr. Efren Parra Potassium [Moles/Vol] 4.0 mmol/L Normal 3.5-5.1 [facility] Comment on above: Performed By: #### C BC #### [facility] [address] [place] [address] Dr. Efren Parra Protein [Mass/Vol] 7.2 g/dL Normal 6.4-8.2 [facility] Comment on above: Performed By: #### C BC #### [facility] [address] [place] [address] Dr. Efren Parra Sodium [Moles/Vol] 139 mmol/L Normal 136-145 [facility] Comment on above: Performed By: #### C BC #### [facility] [address] [place] [address] Dr. Efren Parra Urea nitrogen [Mass/Vol] 17.0 mg/dL Normal 7.0-18.0 [facility] Comment on above: Performed By: #### C BC #### [facility] [address] [place] [address] Dr. Efren Parra Urea nitrogen/Creatinine [Mass ratio] 23.6 mg/mg Normal [facility] Comment on above: Performed By: #### C BC #### [facility] [address] [place] [address] Dr. Efren Parra TROPONIN, HIGH SENSITIVITYon 06-22-2022 HSTROP <4.0 Normal 4.0-51.3 [facility] Comment on above: Result Comment: CUT- OFF POINTS HAVE BEEN ESTABLISHED BASED ON THE FOURTH UNIVERSAL DEFINITIONS OF MYOCARDIAL INFARCTION. THE UPPER REFERENCE LIMIT (URL) OF TROPONIN, DEFINED THE 99TH PERCENTILE OF cTnI DISTRIBUTION IN A REFERENCE POPULATION, HAS BEEN CONFIRMED THE DECISION THRESHOLD FOR HI DIAGNOSIS. Performed By: #### C BC #### [facility] [address] [place] [id number] Efren Parra Covid-19 PCR (CVDTB)on SARS-CoV-2 (COVID-19) RNA LUKASZ+probe Ql (Unsp spec) Not detected Normal NOT DETECTED [facility] Comment on above: Result Comment: When diagnostic [...] for this test is supported by the [place] of [employer] and Human Service's declaration that [...] used). Performed By: #### C VDTB #### [facility] [address] [place] [id number] Efren Parra XR CHEST 2 Von [...] ALBINA BRODERICK Date: 2022-06-16 21:42 Normal [facility] CHEMISTRYOrdered By: SYSTEM SYSTEM on 04-24-2022 Amphetamines Screen method >1000 ng/mL Ql (U) Positive 2 *ABN* (04/24/22 5:12 PM) Invalid Interpretation Code Negative [facility] Comment on above: Result Comment: Crit ical Result verified by repeat analysis\No confirmation requested by Physican\Unconfirmed by alternate method\Critical Result UD_AMPH:POS Called to [facility] by СВЕТЛАНА VASQUEZ And Read Back For Confirmation at: 04/24/2022 17:56:35 Barbiturates Screen Ql (U) Positive 3 *ABN* (04/24/22 5:12 PM) Invalid Interpretation Code Negative [facility] Comment on above: Result Comment: Crit ical Result verified by repeat analysis\No confirmation requested by Physican\Unconfirmed by alternate method\Critical Result UD_BARB:POS Called to [facility] ER by СВЕТЛАНА VASQUEZ And Read Back For Confirmation at: 04/24/2022 17:56:35 Benzodiazepines Ql (U) Positive 1 *ABN* (04/24/22 5:12 PM) Invalid Interpretation Code Negative [facility] Comment on above: Result Comment: Crit ical Result verified by repeat analysis\No confirmation requested by Physican\Unconfirmed by alternate method\Critical Result UD_BENZ:POS Called to [facility] ER by СВЕТЛАНА CHRISTINA And [...] >100,000 cfu/ml Non Fermentering Gram Negative [facility] MICRO OTHER TESTSOrdered By: Carrie Molina [...] Interpretation Code Negative [facility] UA Auto SS [place].plasma/[place]. RBC (Bld) [Mass ratio] 0-3 /HPF Normal [...] Desc Clean Catch (04/24/22 5:12 PM) Normal [facility] [place] Auto SS Urobilinogen Qn (U) [id number] {Adria'U}/dL Normal 0.0 - 1.0 EU/dL [facility] Auto SS WBC Auto Ql (U) 3+ *ABN* (04/24/22 5:12 PM) Invalid Interpretation Code Negative [facility] [place] Auto SS WBC LM.HPF (Urine sed) [#/Area] /[HPF] Invalid Interpretation Code 0-5/HPF [facility] [place] Auto SS CULTURE URINEon 04-13-2022 CULTURE [...] Trimethoprim/Sulfamet hoxazole >=320 R F Normal [facility] Comment on above: Performed By: #### C #### [facility] [address] [place] [address] Dr. Efren Parra [facility]on SARS-CoV-2 (COVID-19) RNA LUKASZ+probe Ql (Unsp spec) Not detected Normal NOT DETECTED [facility] Comment on above: Result Comment: When diagnostic [...] for this test is supported by the [place] [employer] and Human Service's declaration that [...] used). Performed By: #### C BC #### [facility] [address] [place] [address] Dr. Efren Parra ACETAMINOPHENon 04-10-2022 Acetaminophen [Mass/Vol] ug/mL Critically low 10.0-30.0 [facility] Comment on above: Performed By: #### A CET, ETH, SALYC, CMP #### [facility] [address] [place] [address] Dr. Efren Parra CBC AUTO DIFFon 04-10-2022 BASO # 0.0 103/ul Normal 0.0-0.1 [facility] Comment on above: Performed By: #### C BC #### [facility] [address] [place] [address] Dr. Efren Parra Basophils/100 WBC (Bld) 0.5 % Normal 0.2-2.0 [facility] [place] Comment on above: Performed By: #### C BC #### [facility] [address] [place] [address] Dr. Efren Parra EO # 0.1 103/ul Normal 0.0-0.7 [facility] Comment on above: Performed By: #### C BC #### [facility] [address] [place] [address] Dr. Efren Parra Eosinophils/100 WBC (Bld) 0.9 % Normal 0.9-7.0 [facility] Comment on above: Performed By: #### C BC #### [facility] [address] [place] [address] Dr. Efren Parra Erythrocyte distribution width (RBC) [Ratio] 11.9 % Normal 11.0-15.0 [facility] Comment on above: Performed By: #### C BC #### [facility] [address] [place] [address] Dr. Efren Parra Hematocrit (Bld) [Volume fraction] 42.3 % Normal 36.0-48.0 [facility] Comment on above: Performed By: #### C BC #### [facility] [address] [place] [address] Dr. Efren Parra Hemoglobin (Bld) [Mass/Vol] 14.6 g/dL Normal 12.0-16.0 [facility] Comment on above: Performed By: #### C BC #### [facility] [address] [place] [address] Dr. Efren Parra IG # 0.03 10e3/ul Normal 0.00-0.03 [facility] Comment on above: Performed By: #### C BC #### [facility] [address] [place] [address] Dr. Efren Parra IG % 0.5 % Normal 0.0-0.5 [facility] Comment on above: Performed By: #### C BC #### [facility] [address] [place] [address] Dr. Efren Parra LYMPH # 1.5 103/ul Normal 1.2-3.8 [facility] Comment on above: Performed By: #### C BC #### [facility] [address] [place] [address] Dr. Efren Parra Lymphocytes/100 WBC (Bld) 22.9 % Normal 20.5-60.0 [facility] Comment on above: Performed By: #### C BC #### [facility] [address] [place] [address] Dr. Efren Parra MANUAL DIFF REQ NO Normal [facility] Comment on above: Performed By: #### C BC #### [facility] [address] [place] [address] Dr. Efren Parra MCH (RBC) [Entitic mass] 31.9 pg Normal 26.7-34.0 [facility] Comment on above: Performed By: #### C BC #### [facility] [address] [place] [address] Dr. Efren Parra MCHC (RBC) [Mass/Vol] 34.5 g/dL Normal 29.9-35.2 [facility] Comment on above: Performed By: #### C BC #### [facility] [address] [place] [address] Dr. fEren Parra MCV (RBC) [Entitic vol] 92.4 fL Normal 81.0-99.0 [facility] [place] Comment on above: Performed By: #### C BC #### [facility] [address] [place] [address] Dr. Efren Parra MONO # 0.3 103/ul Normal 0.3-0.8 [facility] Comment on above: Performed By: #### C BC #### [facility] [address] [place] [address] Dr. Efren Parra Monocytes/100 WBC (Bld) 4.7 % Normal 1.7-12.0 [facility] Comment on above: Performed By: #### C BC #### [facility] [address] [place] [address] Dr. Efren Parra NEUT # 4.7 103/ul Normal 1.4-6.5 [facility] Comment on above: Performed By: #### C BC #### [facility] [address] [place] [address] Dr. Efren Parra Neutrophils/100 WBC (Bld) 70.5 % Normal 43.0-75.0 [facility] Comment on above: Performed By: #### C BC #### [facility] [address] [place] [address] Dr. Efren Parra Platelet mean volume (Bld) [Entitic vol] 11.0 fL Normal 9.5-13.5 [facility] Comment on above: Performed By: #### C BC #### [facility] [address] [place] [address] Dr. Efren Parra PLT 226 103/ul Normal 150-450 [facility] Comment on above: Performed By: #### C BC #### [facility] [address] [place] [address] Dr. Efren Parra RBC 4.58 106/ul Normal 4.20-5.40 [facility] Comment on above: Performed By: #### C BC #### [facility] [address] [place] [address] Dr. Efren Parra WBC 6.6 103/ul Normal 4.0-11.0 [facility] Comment on above: Performed By: #### C BC #### [facility] [address] [place] [address] Dr. Efren Parra DEPAKENE/VALPROICon 04-10-20 DEPAKENE 35.2 ug/ml Critically low 50.0-100.0 [facility] Comment on above: Performed By: #### C BC #### [facility] [address] [place] [address] Dr. Efren Parra DRUG SCREEN RAPID (URINE)on 04-10-2022 AMP Negative Normal NEGATIVE [facility] Comment on above: Performed By: #### C BC #### [facility] [address] [place] [address] Dr. Efren Parra BAR Negative Normal NEGATIVE [facility] Comment on above: Performed By: #### C BC #### [facility] [address] [place] [address] Dr. Efren Parra BUP Positive Abnormal NEGATIVE [facility] Comment on above: Performed By: #### C BC #### [facility] [address] [place] [address] Dr. Efren Parra BZO Negative Normal NEGATIVE [facility] Comment on above: Performed By: #### C BC #### [facility] [address] [place] [address] Dr. Efren Parra RENEA Negative Normal NEGATIVE [facility] Comment on above: Performed By: #### C BC #### [facility] [address] [place] [address] Dr. Efren Parra CUT-OFFS SEE BELOW Normal [facility] Comment on above: Result Comment: AMP (Amphetamine): 500ng/mL, BAR (Barbituates): 200 ng/mL, BZO (Benzodiazepines): 150 ng/mL, BUP (Buprenorphine): 10 ng/mL, RENEA (Cocaine): 150 ng/mL, mAMP (Methamphetamine): 500 ng/mL, MTD (Methadone): 200 ng/mL, OPI (Opiates): 100 ng/mL, OXY (Oxycodone): 100 ng/mL, PCP (Phencyclidine): 25 ng/mL, PPX (Propoxyphene): 300 ng/mL, THC (Cannabinoids): 50 ng/mL, TCA (Trycyclic Antidepressants): 300 ng/mL Performed By: #### C BC #### [facility] [address] [place] [address] Dr. Efren Parra DRUG CUT HEADER DRUG CLASS TEST SYSTEM CUT-OFF CONCENTRATIONS ARE FOLLOWS: Normal [facility] Comment on above: Performed By: #### C BC #### [facility] [address] [place] [address] Dr. Efren Parra mAMP Negative Normal NEGATIVE [facility] Comment on above: Performed By: #### C BC #### [facility] [address] [place] [address] Dr. Efren Parra MTD Negative Normal NEGATIVE [facility] Comment on above: Performed By: #### C BC #### [facility] [address] [place] [address] Dr. Efren Parra OPI Negative Normal NEGATIVE [facility] Comment on above: Performed By: #### C BC #### [facility] [address] [place] [address] Dr. Efren Parra OXY Negative Normal NEGATIVE [facility] Comment on above: Performed By: #### C BC #### [facility] [address] [place] [address] Dr. Efren Parra PCP Negative Normal NEGATIVE [facility] Comment on above: Performed By: #### C BC #### [facility] [address] [place] [address] Dr. Efren Parra PPX Negative Normal NEGATIVE [facility] Comment on above: Performed By: #### C BC #### [facility] [address] [place] [address] Dr. Efren Parra TCA Negative Normal NEGATIVE [facility] Comment on above: Performed By: #### C BC #### [facility] [address] [place] [address] Dr. Efren Parra THC Negative Normal NEGATIVE [facility] Comment on above: Performed By: #### C BC #### [facility] [address] [place] [address] Dr. Efren Parra ER URINE PROFILEon 2 Bilirubin Ql (U) Negative Normal NEGATIVE [facility] Comment on above: Performed By: #### U MICRO, DRUGRPD, ERUR #### [facility] [address] [address] [address] Efren Parra Clarity (U) CLEAR Normal CLEAR [facility] Comment on above: Performed By: #### U MICRO, DRUGRPD, ERUR #### [facility] [address] [place] [address] Dr. Efren Parra Color (U) LT. YELLOW Normal YELLOW [facility] Comment on above: Performed By: #### U MICRO, DRUGRPD, ERUR #### [facility] [address] [place] [address] Dr. Efren Parra ERUAHD A micrscopic examination will be performed if indicated. Normal [facility] Comment on above: Performed By: #### U MICRO, DRUGRPD, ERUR #### [facility] [address] [place] [address] Dr. Efren Parra Glucose Ql (U) Negative Normal NEGATIVE [facility] Comment on above: Performed By: #### U MICRO, DRUGRPD, ERUR #### [facility] [address] [place] [address] Dr. Efren Parra Hemoglobin Ql (U) Negative Normal NEGATIVE [facility] [place] Comment on above: Performed By: #### U MICRO, DRUGRPD, ERUR #### [facility] [address] [address] [address] Efren Parra Ketones Ql (U) TRACE Abnormal NEGATIVE [facility] Comment on above: Performed By: #### U MICRO, DRUGRPD, ERUR #### [facility] [address] [place] [address] Dr. Efren Parra LEUKOCYTES TRACE Abnormal NEGATIVE [facility] Comment on above: Performed By: #### U MICRO, DRUGRPD, ERUR #### [facility] [address] [place] [address] Dr. Efren Parra Nitrite Ql (U) Positive Abnormal NEGATIVE [facility] Comment on above: Performed By: #### U MICRO, DRUGRPD, ERUR #### [facility] [address] [place] [address] Dr. Efren Parra pH (U) 8.5 [pH] Normal 5-9 [facility] Comment on above: Performed By: #### U MICRO, DRUGRPD, ERUR #### [facility] [address] [place] [address] Dr. Efren Parra SPEC GRAVITY 1.015 Normal 1.005-<=1.025 [facility] Comment on above: Performed By: #### U MICRO, DRUGRPD, ERUR #### [facility] [address] [place] [address] Dr. Efren Parra UA PROTEIN Negative Normal NEGATIVE/ TRACE [facility] Comment on above: Performed By: #### U MICRO, DRUGRPD, ERUR #### [facility] [address] [place] [address] Dr. Efren Parra UR MICRO IND INDICATED Normal [facility] Comment on above: Performed By: #### U MICRO, DRUGRPD, ERUR #### [facility] [address] [place] [address] Dr. Efren Parra Urobilinogen Qn (U) 0.2 {Adria'U}/dL Normal 0.2 - 1. 0 [facility] Comment on above: Performed By: #### U MICRO, DRUGRPD, ERUR #### [facility] [address] [place] [address] Dr. Efren Parra ETHANOL (BLD ALC)on 04-10-20 ALC NOTE NOTE: 80 mg/dl is th e legal limit for a blood alcohol level Normal [facility] Comment on above: Performed By: #### A CET, ETH, SALYC, CMP #### [facility] [address] [place] [address] Dr. Efren Parra Ethanol [Mass/Vol] mg/dL Normal [facility] Comment on above: Performed By: #### A CET, ETH, SALYC, CMP #### [facility] [address] [place] [address] Dr. Efren Parra PREG HCG QUALon 04-10-2022 , QUAL Negative Normal NEGATIVE [facility] Comment on above: Performed By: #### P REG #### [facility] [address] [place] [address] Dr. Efren Parra PROF 14(COMP METB)on 022 Albumin [Mass/Vol] 3.6 g/dL Normal 3.4-5.0 [facility] Comment on above: Performed By: #### A CET, ETH, SALYC, CMP #### [facility] [address] [place] [address] Dr. Efren Parra Albumin/Globulin [Mass ratio] 1.0 {ratio} Normal [facility] Comment on above: Performed By: #### A CET, ETH, SALYC, CMP #### [facility] [address] [place] [address] Dr. Efren Parra ALP [Catalytic activity/Vol] 62 U/L Normal 46-116 [facility] Comment on above: Performed By: #### A CET, ETH, SALYC, CMP #### [facility] [address] [place] [address] Dr. Efren Parra ALT [Catalytic activity/Vol] 29 U/L Normal 14-59 [facility] Comment on above: Performed By: #### A CET, ETH, SALYC, CMP #### [facility] [address] [place] [address] Dr. Efren Parra Anion gap [Moles/Vol] 10.8 mmol/L Normal [facility] Comment on above: Performed By: #### A CET, ETH, SALYC, CMP #### [facility] [address] [place] [address] Dr. Efren Parra AST [Catalytic activity/Vol] 11 U/L Critically low 15-37 [facility] Comment on above: Performed By: #### A CET, ETH, SALYC, CMP #### [facility] [address] [place] [address] Dr. Efren Parra Bilirubin [Mass/Vol] 0.4 mg/dL Normal 0.2-1.0 [facility] Comment on above: Performed By: #### A CET, ETH, SALYC, CMP #### [facility] [address] [place] [address] Dr. Efren Parra Calcium [Mass/Vol] 9.3 mg/dL Normal 8.5-10.1 [facility] Comment on above: Performed By: #### A CET, ETH, SALYC, CMP #### [facility] [address] [place] [address] Dr. Efren Parra Chloride [Moles/Vol] 105 mmol/L Normal 98-107 [facility] Comment on above: Performed By: #### A CET, ETH, SALYC, CMP #### [facility] [address] [place] [address] Dr. Efren Parra CO2 [Moles/Vol] 26.8 mmol/L Normal 21.0-32.0 [facility] Comment on above: Performed By: #### A CET, ETH, SALYC, CMP #### [facility] [address] [place] [address] Dr. Efren Parra Creatinine [Mass/Vol] 0.64 mg/dL Normal 0.55-1.02 [facility] Comment on above: Performed By: #### A CET, ETH, SALYC, CMP #### [facility] [address] [place] [address] Dr. Efren Parra EGFR-AF CHINESE >60 Normal >=60 [facility] Comment on above: Performed By: #### A CET, ETH, SALYC, CMP #### [facility] [address] [place] [address] Dr. Efren Parra EGFR-NON AF CHINESE >60 Normal >=60 [facility] Comment on above: Performed By: #### A CET, ETH, SALYC, CMP #### [facility] [address] [place] [address] Dr. Efren Parra Globulin (S) [Mass/Vol] 3.5 g/dL Normal [facility] Comment on above: Performed By: #### A CET, ETH, SALYC, CMP #### [facility] [address] [place] [address] Dr. Efren Parra Glucose [Mass/Vol] 113 mg/dL Critically high 74-106 [facility] Comment on above: Performed By: #### A CET, ETH, SALYC, CMP #### [facility] [address] [address] [address] Efren Parra Potassium [Moles/Vol] 4.6 mmol/L Normal 3.5-5.1 [facility] Comment on above: Performed By: #### A CET, ETH, SALYC, CMP #### [facility] [address] [place] [address] Dr. Efren Parra Protein [Mass/Vol] 7.1 g/dL Normal 6.4-8.2 [facility] Comment on above: Performed By: #### A CET, ETH, SALYC, CMP #### [facility] [address] [place] [address] Dr. Efren Parra Sodium [Moles/Vol] 138 mmol/L Normal 136-145 [facility] Comment on above: Performed By: #### A CET, ETH, SALYC, CMP #### [facility] [address] [place] [address] Dr. Efren Parra Urea nitrogen [Mass/Vol] 8.0 mg/dL Normal 7.0-18.0 [facility] Comment on above: Performed By: #### A CET, ETH, SALYC, CMP #### [facility] [address] [place] [address] Dr. Efren Parra Urea nitrogen/Creatinine [Mass ratio] 12.5 mg/mg Normal [facility] Comment on above: Performed By: #### A CET, ETH, SALYC, CMP #### [facility] [address] [place] [address] Dr. Efren Parra SALICYLATEon 04-10-2022 SALICYLATE 3.3 mg/dL Normal <=19.9 [facility] Comment on above: Performed By: #### A CET, ETH, SALYC, CMP #### [facility] [address] [address] [address] Efren Parra URINE MICROSCOPIC ONLYon BACTERIA LARGE Abnormal NONE SEEN The [facility] Comment on above: Performed By: #### C BC #### [facility] [address] [place] [address] Dr. Efren Parra Bacteria identified Cx Nom (U) INDICATED Normal [facility] Comment on above: Performed By: #### C BC #### [facility] [address] [place] [address] Dr. Efren Parra CAST NONE SEEN Normal NONE SEEN [facility] Comment on above: Performed By: #### C BC #### [facility] [address] [place] [address] Dr. Efren Parra Crystals LM Nom (Urine sed) NONE SEEN Normal NONE SEEN [facility] Comment on above: Performed By: #### C BC #### [facility] [address] [place] [address] Dr. Efren aPrra Epithelial cells LM Ql (Urine sed) MANY Abnormal NONE SEEN /RARE [facility] Comment on above: Performed By: #### C BC #### [facility] [address] [place] [address] Dr. Efren Parra MUCOUS NONE SEEN Normal NONE SEEN [facility] Comment on above: Performed By: #### C BC #### [facility] [address] [place] [address] Dr. Efren Parra RBC 0-2 Normal 0-2 [facility] Comment on above: Performed By: #### C BC #### [facility] [address] [place] [address] Dr. Efren Parra WBC 5-10 Abnormal NONE SEEN [facility] Comment on above: Performed By: #### C BC #### [facility] [address] [place] [address] Dr. Efren Parra Hemoglobin A1Con 02-08-2021 Glucose [Mass/Vol] 103 mg/dL Normal [facility] Comment on above: Result Comment: The ADA and AACC recommend providing the estimated average glucose result to permit better patient understanding of their HBA1c result. Performed By: #### G LYHGB #### [facility] [address] [place], [place] [id number] Converter Supervisor: Bryan Cruz MD HbA1c (Bld) [Mass fraction] 5.2 % Normal 4.0-6.0 [facility] Comment on above: Performed By: #### G LYHGB #### [facility] [address] [place] [address] Converter Supervisor: Bryan Cruz MD XR CHEST (SINGLE VIEW [...] Usama Xavier MD 02/07/21 Final result Normal [facility] Drug Scr, Abuse, Uron 2020 Amphetamine(s),Ur Negative Normal NEG [facility] Comment on above: Result Comment: (Positive cutoff 1000 ng/mL) Performed By: #### U HCG #### [facility] [address] [facility] [place], [place] [id number] Converter Supervisor: José Miguel Monzon DO Barbiturate(s),Ur Negative Normal NEG [facility] Comment on above: Result Comment: (Positive cutoff 200 ng/mL) Performed By: #### U HCG #### [facility] [address] [place] [address] Converter Supervisor: José Miguel Monzon DO Benzodiazepine(s) Positive Abnormal NEG [facility] Comment on above: Result Comment: (Positive cutoff 200 ng/mL) Performed By: #### U HCG #### [facility] [address] [place] [address] Converter Supervisor: José Miguel Monzon DO Cannabinoid(s),Ur Negative Normal NEG [facility] Comment on above: Result Comment: (Positive cutoff 50 ng/mL) Performed By: #### U HCG #### [facility] [address] [place] [address] Converter Supervisor: José Miguel Monzon DO Cocaine Metabolite Negative Normal [facility] Comment on above: Result Comment: (Positive cutoff 300 ng/mL) Performed By: #### U HCG #### [facility] [address] [place] [address] Converter Supervisor: José Miguel Monzon DO Interpretive Info Assay provides medical screening only. The absence of expected drug(s) and/or Normal [facility] Comment on above: Result Comment: meta bolite(s) may indicate diluted or adulterated urine, limitations of testing or timing of collection. Testing for legal purposes should be confirmed by another method. To request confirmation of test result, please call the lab within 7 days of sample submission. Performed By: #### U HCG #### [facility] [address] [place] [address] Converter Supervisor: José Miguel Monzon DO Methadone Ql (U) Negative Normal NEG [facility] Comment on above: Result Comment: (Positive cutoff 300 ng/mL) Performed By: #### U HCG #### [facility] [address] [place] [address] Converter Supervisor: José Miguel Monzon DO Opiate(s), Ur Negative Normal NEG [facility] Comment on above: Result Comment: (Positive cutoff 300 ng/mL) Performed By: #### U HCG #### [facility] [address] [place] [address] Converter Supervisor: José Miguel Monzon DO Oxycodone, Urine Negative Normal NEG [facility] Comment on above: Result Comment: (Positive cutoff 100 ng/mL) Performed By: #### U HCG #### [facility] [address] [place] [address] Converter Supervisor: José Miguel Monzon DO Phencyclidine, Ur Negative Normal NEG [facility] Comment on above: Result Comment: (Positive cutoff 25 ng/mL) Performed By: #### U HCG #### [facility] [address] [place] [address] Converter Supervisor: José Miguel Monzon DO Buprenorphrine, Ur NOT REPORTED Normal NEG [facility] Comment on above: Performed By: #### U HCG #### [facility] [address] [place] [address] Converter Supervisor: José Miguel Monzon DO MDMA, Urine NOT REPORTED Normal NEG [facility] Comment on above: Performed By: #### U HCG #### [facility] [address] [place] [address] Converter Supervisor: José Miguel Monzon DO Methamphetamine, Ur NOT REPORTED Normal NEG [facility] Comment on above: Performed By: #### U HCG #### [facility] [address] [place] [address] Converter Supervisor: José Miguel Monzon DO Propoxyphene,Urine NOT REPORTED Normal NEG [facility] Comment on above: Performed By: #### U HCG #### [facility] [address] [place] [address] Converter Supervisor: José Miguel Monzon DO Tricyclic antidepressants Screen Ql (U) NOT REPORTED Normal NEG [facility] Comment on above: Performed By: #### U HCG #### [facility] [address] [place] [address] Converter Supervisor: José Miguel Monzon DO Urinalysis, Routineon 2020 Acetoacetic Acid,Ur Negative Normal NEG [facility] Comment on above: Performed By: #### U HCG #### [facility] [address] [place] [address] Converter Supervisor: José Miguel Monzon DO Bilirubin, SemiQt,Ur Negative Normal NEG [facility] Comment on above: Performed By: #### U HCG #### [facility] [place] [address] Converter Supervisor: José Miguel Monzon DO Color (U) YELLOW Normal YEL [facility] Comment on above: Performed By: #### U HCG #### [facility] [place] [address] Converter Supervisor: José Miguel Monzon DO Glucose Ql (U) Negative Normal NEG [facility] Comment on above: Performed By: #### U HCG #### [facility] [place] [address] Converter Supervisor: José Miguel Monzon DO Hemoglobin, Ur MOD Abnormal NEG [facility] Comment on above: Performed By: #### U HCG #### [facility] [place] [address] Converter Supervisor: José Miguel Monzon DO Leukocyte esterase Test strip Ql (U) LARGE Abnormal NEG [facility] Comment on above: Performed By: #### U HCG #### [facility] [place] [address] Converter Supervisor: José Miguel Monzon DO Nitrite,Ur Negative Normal NEG [facility] Comment on above: Performed By: #### U HCG #### [facility] [address] [place] [address] Converter Supervisor: José Miguel Monzon DO PH,Ur 7.5 Normal 5.0-8.0 [facility] Comment on above: Performed By: #### U HCG #### [facility] [address] [place] [address] Converter Supervisor: José Miguel Monzon DO Protein Ql (U) 2+ Abnormal NEG [facility] Comment on above: Performed By: #### U HCG #### [facility] [address] [place] [address] Converter Supervisor: José Miguel Monzon DO Spec. [place],Ur 1.019 Normal 1.000-1.030 [facility] Comment on above: Performed By: #### U HCG #### [facility] [address] [place] [address] Converter Supervisor: José Miguel Monzon DO Turbidity TURBID Abnormal CLEAR [facility] Comment on above: Performed By: #### U HCG #### [facility] [place] [address] Converter Supervisor: José Miguel Monzon DO Urobilinogen,Ur Normal Normal NORM [facility] Comment on above: Performed By: #### U HCG #### [facility] [place] [address] Converter Supervisor: José Miguel Monzon DO Comment NOT REPORTED Normal [facility] Comment on above: Performed By: #### U HCG #### [facility] [place] [address] Converter Supervisor: José Miguel Monzon DO Urinalysis,Microon 1 ----- Normal [facility] Comment on above: Performed By: #### U HCG #### [facility] [address] [place] [address] Converter Supervisor: José Miguel Monzon DO Bacteria MANY Abnormal [facility] Comment on above: Performed By: #### U HCG #### [facility] [address] [place] [address] Converter Supervisor: José Miguel Monzon DO Epithelial cells LM Ql (Urine sed) 2 TO 5 Normal [facility] Comment on above: Performed By: #### U HCG #### [facility] [address] [place] [address] Converter Supervisor: José Miguel Monzon DO Urine RBC's 10 TO 20 Normal [facility] Comment on above: Performed By: #### U HCG #### [facility] [address] [place] [address] Converter Supervisor: José Miguel Monzon DO Urine WBC's 50 TO 100 Normal [facility] Comment on above: Performed By: #### U HCG #### [facility] [address] [place] [address] Converter Supervisor: José Miguel Monzon DO Amorphous sediment LM Ql (Urine sed) NOT REPORTED Normal [facility] Comment on above: Performed By: #### U HCG #### [facility] [address] [place] [address] Converter Supervisor: José Miguel Monzon DO Casts NOT REPORTED Normal [facility] Comment on above: Performed By: #### U HCG #### [facility] [address] [place] [address] Converter Supervisor: José Miguel Monzon DO Crystals LM Nom (Urine sed) NOT REPORTED Normal [facility] Comment on above: Performed By: #### U HCG #### [facility] [place] [address] Converter Supervisor: José Miguel Monzon DO Epithelial, Renal NOT REPORTED Normal 0 [facility] Comment on above: Performed By: #### U HCG #### [facility] [place] [address] Converter Supervisor: José Miguel Monzon DO Mucus Strands NOT REPORTED Normal NONE [facility] Comment on above: Performed By: #### U HCG #### [facility] [address] [place] [address] Converter Supervisor: José Miguel Monzon DO Other Observations NOT REPORTED Normal NREQ [facility] Comment on above: Performed By: #### U HCG #### [facility] [address] [place] [address] Converter Supervisor: José Miguel Monzon DO Trichomonas NOT REPORTED Normal NONE [facility] Comment on above: Performed By: #### U HCG #### [facility] [address] [place] [address] Converter Supervisor: José Miguel Monzon DO Yeast NOT REPORTED Normal NONE [facility] Comment on above: Performed By: #### U HCG #### [facility] [address] [place] [address] Converter Supervisor: José Miguel Monzon DO Acetaminophenon 8058 Acetaminophen [Mass/Vol] ug/mL Low 10-30 [facility] Comment on above: Performed By: #### C MPX, REJEC, HCG, ACET, ALCB, SALI #### [facility] [place] [address] Converter Supervisor: José Miguel Monzon DO CBC with Diffon 02-05-2021 Abs. Basophil 0.00 k/uL Normal 0.0-0.2 [facility] Comment on above: Performed By: #### U HCG #### [facility] [place] [address] Converter Supervisor: José Miguel Monzon DO Abs.Neutrophil (Seg) 3.50 k/uL Normal 1.3-9.1 [facility] Comment on above: Performed By: #### U HCG #### [facility] [address] [place] [address] Converter Supervisor: José Miguel Monzon DO Basophils/100 WBC (Bld) 1 % Normal 0-2 [facility] Comment on above: Performed By: #### U HCG #### [facility] [place] [address] Converter Supervisor: José Miguel Monzon DO Eosinophils (Bld) [#/Vol] 0.10 10*3/uL Normal 0.0-0.4 [facility] Comment on above: Performed By: #### U HCG #### [facility] [place] [address] Converter Supervisor: José Miguel Monzon DO Eosinophils/100 WBC (Bld) 2 % Normal 0-4 [facility] Comment on above: Performed By: #### U HCG #### [facility] [address] [place] [address] Converter Supervisor: José Miguel Monzon DO Erythrocyte distribution width (RBC) [Ratio] 13.3 % Normal 11.5-14.9 [facility] Comment on above: Performed By: #### U HCG #### [facility] [place] [address] Converter Supervisor: José Miguel Monzon DO Hematocrit (Bld) [Volume fraction] 35.6 % Low 36-46 [facility] Comment on above: Performed By: #### U HCG #### [facility] [place] [address] Converter Supervisor: José Miguel Monzon DO Hemoglobin (Bld) [Mass/Vol] 12.1 g/dL Normal 12.0-16.0 [facility] Comment on above: Performed By: #### U HCG #### [facility] [address] [place] [address] Converter Supervisor: José Miguel Monzon DO Lymphocytes (Bld) [#/Vol] 2.30 10*3/uL Normal 1.0-4.8 [facility] Comment on above: Performed By: #### U HCG #### [facility] [address] [place] [address] Converter Supervisor: José Miguel Monzon DO Lymphocytes/100 WBC (Bld) 36 % Normal 24-44 [facility] Comment on above: Performed By: #### U HCG #### [facility] [address] [place] [address] Converter Supervisor: José Miguel Monzon DO MCH (RBC) [Entitic mass] 30.9 pg Normal 26-34 [facility] Comment on above: Performed By: #### U HCG #### [facility] [address] [place] [address] Converter Supervisor: José Miguel Monzon DO MCHC (RBC) [Mass/Vol] 33.9 g/dL Normal 31-37 [facility] Comment on above: Performed By: #### U HCG #### [facility] [address] [place] [address] Converter Supervisor: José Miguel Monzon DO MCV (RBC) [Entitic vol] 91.4 fL Normal 80-100 M [facility] Comment on above: Performed By: #### U HCG #### [facility] [address] [place] [address] Converter Supervisor: José Miguel Monzon DO Monocytes (Bld) [#/Vol] 0.40 10*3/uL Normal 0.1-1.3 [facility] Comment on above: Performed By: #### U HCG #### [facility] [place] [place] [address] Converter Supervisor: José Miguel Monzon DO Monocytes/100 WBC (Bld) 7 % Normal 1-7 M [facility] Comment on above: Performed By: #### U HCG #### [facility] [address] [place] [address] Converter Supervisor: José Miguel Monzon DO Neutrophil (Seg) 54 % Normal 36-66 [facility] Comment on above: Performed By: #### U HCG #### [facility] [place] [address] Converter Supervisor: José Miguel Monzon DO Platelet mean volume (Bld) [Entitic vol] 8.6 fL Normal 6.0-12.0 [facility] Comment on above: Performed By: #### U HCG #### [facility] [address] [place] [address] Converter Supervisor: José Miguel Monzon DO Platelets (Bld) [#/Vol] 212 10*3/uL Normal 150-450 [facility] Comment on above: Performed By: #### U HCG #### [facility] [place] [address] Converter Supervisor: José Miguel Monzon DO RBC (Bld) [#/Vol] 3.90 10*6/uL Low 4.0-5.2 [facility] Comment on above: Performed By: #### U HCG #### [facility] [address] [place] [address] Converter Supervisor: José Miguel Monzon DO WBC (Bld) [#/Vol] 6.4 10*3/uL Normal 3.5-11.0 [facility] Comment on above: Performed By: #### U HCG #### [facility] [address] [place] [address] Converter Supervisor: José Miguel Monzon DO Abs.Imm.Granulocyte NOT REPORTED Normal 0.00-0.30 [facility] Comment on above: Performed By: #### U HCG #### [facility] [address] [place] [address] Converter Supervisor: José Miguel Monzon DO Auto Diff Performed NOT REPORTED Normal [facility] Comment on above: Performed By: #### U HCG #### [facility] [address] [place] [address] Converter Supervisor: José Miguel Monzon DO Immature Granulocyte NOT REPORTED Normal 0 Me [facility] Comment on above: Performed By: #### U HCG #### [facility] [address] [place] [address] Converter Supervisor: José Miguel Monzon DO NRBC Automated NOT REPORTED Normal [facility] Comment on above: Performed By: #### U HCG #### [facility] [address] [place] [address] Converter Supervisor: José Miguel Monzon DO Platelet Estimate NOT REPORTED Normal [facility] Comment on above: Performed By: #### U HCG #### [facility] [address] [place] [address] Converter Supervisor: José Miguel Monzon DO RBC morphology finding Nom (Bld) NOT REPORTED Normal [facility] Comment on above: Performed By: #### U HCG #### [facility] [address] [facility] [place] [place] [address] Converter Supervisor: José Miguel Monzon DO WBC Morphology NOT REPORTED Normal [facility] Comment on above: Performed By: #### U HCG #### [facility] [address] [facility] [place] [address] Converter Supervisor: José Miguel Monzon DO Comp Metabolic Pr/rfx MGon 0 - AST [Catalytic activity/Vol] 17 U/L Normal <32 [facility] Comment on above: Performed By: #### C MPX, REJEC, HCG, ACET, ALCB, SALI #### [facility] [address] [facility] [place] [place] [address] Converter Supervisor: José Miguel Monzon DO Bilirubin [Mass/Vol] mg/dL Low 0.3-1.2 [facility] Comment on above: Performed By: #### C MPX, REJEC, HCG, ACET, ALCB, SALI #### [facility] [address] [facility] [place] [address] Converter Supervisor: José Miguel Monzon DO Potassium [Moles/Vol] 4.4 mmol/L Normal 3.7-5.3 [facility] Comment on above: Result Comment: SPEC IMEN SLIGHTLY HEMOLYZED, RESULTS MAY BE ADVERSELY AFFECTED. Performed By: #### C MPX, REJEC, HCG, ACET, ALCB, SALI #### [facility] [address] [facility] [place] [place] [address] Converter Supervisor: José Miguel Monzon DO (cont.) Normal [facility] Comment on above: Result Comment: Aver age GFR for 30-39 years old: 107 mL/min/1.73sq m Chronic Kidney Disease: <60 mL/min/1.73sq m Kidney failure: <15 mL/min/1.73sq m eGFR calculated using average adult body mass. Additional eGFR calculator available at: http://www.Fusemachines.com/multiple_crcl_2011.htm Performed By: #### C MPX, REJEC, HCG, ACET, ALCB, SALI #### [facility] [address] [place] [address] Converter Supervisor: José Miguel Monzon DO Albumin [Mass/Vol] 3.7 g/dL Normal 3.5-5.2 [facility] Comment on above: Performed By: #### C MPX, REJEC, HCG, ACET, ALCB, SALI #### [facility] [address] [place] [address] Converter Supervisor: José Miguel Monzon DO Alkaline Phos 42 U/L Normal 35-104 [facility] Comment on above: Performed By: #### C MPX, REJEC, HCG, ACET, ALCB, SALI #### [facility] [address] [place] [address] Converter Supervisor: José Miguel Monzon DO ALT [Catalytic activity/Vol] 12 U/L Normal 5-33 [facility] Comment on above: Performed By: #### C MPX, REJEC, HCG, ACET, ALCB, SALI #### [facility] [address] [facility] [place] [address] Converter Supervisor: José Miguel Monzon DO Anion gap [Moles/Vol] 15 mmol/L Normal 9-17 [facility] Comment on above: Performed By: #### C MPX, REJEC, HCG, ACET, ALCB, SALI #### [facility] [address] [place] [address] Converter Supervisor: José Miguel Monzon DO Calcium [Mass/Vol] 9.4 mg/dL Normal 8.6-10.4 [facility] Comment on above: Performed By: #### C MPX, REJEC, HCG, ACET, ALCB, SALI #### [facility] [address] [place] [address] Converter Supervisor: José Miguel Monzon DO Chloride [Moles/Vol] 100 mmol/L Normal 98-107 [facility] Comment on above: Performed By: #### C MPX, REJEC, HCG, ACET, ALCB, SALI #### [facility] [address] [place] [address] Converter Supervisor: José Miguel Monzon DO CO2 [Moles/Vol] 21 mmol/L Normal 20-31 [facility] Comment on above: Performed By: #### C MPX, REJEC, HCG, ACET, ALCB, SALI #### [facility] [address] [place] [address] Converter Supervisor: José Miguel Monzon DO Creatinine [Mass/Vol] 0.51 mg/dL Normal 0.50-0.90 [facility] Comment on above: Performed By: #### C MPX, REJEC, HCG, ACET, ALCB, SALI #### [facility] [address] [place] [address] Converter Supervisor: José Miguel Monzon DO GFR, Amer >60 Normal >60 [facility] Comment on above: Performed By: #### C MPX, REJEC, HCG, ACET, ALCB, SALI #### [facility] [address] [place] [address] Converter Supervisor: José Miguel Monzon DO GFR,non Amer >60 Normal >60 [facility] Comment on above: Performed By: #### C MPX, REJEC, HCG, ACET, ALCB, SALI #### [facility] [address] [place] [address] Converter Supervisor: José Miguel Monzon DO Glucose [Mass/Vol] 111 mg/dL High 70-99 [facility] Comment on above: Performed By: #### C MPX, REJEC, HCG, ACET, ALCB, SALI #### [facility] [address] [place] [address] Converter Supervisor: José Miguel Monzon DO Protein [Mass/Vol] 6.6 g/dL Normal 6.4-8.3 [facility] Comment on above: Performed By: #### C MPX, REJEC, HCG, ACET, ALCB, SALI #### [facility] [address] [place] [address] Converter Supervisor: José Miguel Monzon DO Sodium [Moles/Vol] 136 mmol/L Normal 135-144 [facility] Comment on above: Performed By: #### C MPX, REJEC, HCG, ACET, ALCB, SALI #### [facility] [address] [facility] [place] [address] Converter Supervisor: José Miguel Monzon DO Urea nitrogen [Mass/Vol] 14 mg/dL Normal 6-20 [facility] Comment on above: Performed By: #### C MPX, REJEC, HCG, ACET, ALCB, SALI #### [facility] [address] [place] [facility] [place] [address] Converter Supervisor: José Miguel Monzon DO Albumin/Glob Ratio NOT REPORTED Normal 1.0-2.5 [facility] Comment on above: Performed By: #### C MPX, REJEC, HCG, ACET, ALCB, SALI #### [facility] [address] [place] [address] Converter Supervisor: José Miguel Monzon DO BUN/CRE Ratio NOT REPORTED Normal 9-20 [facility] Comment on above: Performed By: #### C MPX, REJEC, HCG, ACET, ALCB, SALI #### [facility] [address] [place] [address] Converter Supervisor: José Miguel Monzon, DO Staging: NOT REPORTED Normal [facility] Comment on above: Performed By: #### C MPX, REJEC, HCG, ACET, ALCB, SALI #### [facility] [address] [facility] [place] [address] Converter Supervisor: José Miguel Monzon DO Ethanol Alcoholon 02-05-2021 Ethanol [Mass/Vol] mg/dL Normal <10 [facility] Comment on above: Performed By: #### C MPX, REJEC, HCG, ACET, ALCB, SALI #### [facility] [address] [facility] [place] [address] Converter Supervisor: José Miguel Monzon DO Ethanol percent <0.010 Normal [facility] Comment on above: Performed By: #### C MPX, REJEC, HCG, ACET, ALCB, SALI #### [facility] [address] [facility] [place] [address] Converter Supervisor: José Miguel Monzon DO HCG Screen, Bloodon 02-06-20 21 HCG Screen, Blood Negative Normal NEG [facility] Comment on above: Result Comment: Spec [...] MPX, REJEC, HCG, ACET, ALCB, SALI #### [facility] [address] [facility] [place] [place] [address] Converter Supervisor: José Miguel Monzon DO [id number] 02-05-2021 SARS-CoV-2 (COVID-19) RNA LUKASZ+probe Ql (Unsp spec) Not detected Normal NOTDET [facility] Comment on above: Result Comment: Rapid [...] management decisions. Fact sheet for Healthcare Providers: https://www.fda.gov/media/393462/download Fact sheet for Patients: https://www.fda.gov/media/793951/download Methodology: Isothermal Nucleic Acid Amplification Performed By: #### U HCG #### [facility] [address] [facility] [place] [address] Converter Supervisor: José Miguel Monzon DO Salicylateon 02-05-2021 Salicylate <1 Low 3-10 [facility] Comment on above: Performed By: #### C MPX, REJEC, HCG, ACET, ALCB, SALI #### [facility] [facility] [place] [place] [address] Converter Supervisor: José Miguel Monzon DO Specimen Rejectionon Reason for rejection Unable to perform testing: Specimen quantity not sufficient. Normal [facility] Comment on above: Performed By: #### C MPX, REJEC, HCG, ACET, ALCB, SALI #### [facility] [address] [facility] [place] [address] Converter Supervisor: José Miguel Monzon DO Source of sample .BLOOD [facility] Comment on above: Performed By: #### C MPX, REJEC, HCG, ACET, ALCB, SALI #### [facility] [address] [facility] [place] [address] Converter Supervisor: José Miguel Monzon DO Test ordered CDP [facility] Comment on above: Performed By: #### C MPX, REJEC, HCG, ACET, ALCB, SALI #### [facility] [address] [facility] [place] [address] Converter Supervisor: José Miguel Monzon DO ----- NOT REPORTED Normal [facility] Comment on above: Performed By: #### C MPX, REJEC, HCG, ACET, ALCB, SALI #### [facility] [address] [facility] [place] [address] Converter Supervisor: José Miguel Monzon DO HPV DNA High Riskon 10-22-20 20 HPV Genotype 16 Detected Normal [facility] Comment on above: Performed By: #### U HCG #### [facility] [place] [address] Converter Supervisor: José Miguel Monzon DO HPV Genotype 18 Not detected Normal [facility] Comment on above: Result Comment: (NOT [...] in women under age 21. Performed By: [employer] [address] [place] [address] Implementation Specialist Payroll: Rebeca Alvarez MD Performed By: #### U HCG #### [facility] [address] [facility] [place] [place] [address] Converter Supervisor: José Miguel Monzon DO HPV Other High Risk Detected Normal [facility] Comment on above: Performed By: #### U HCG #### [facility] [address] [place] [address] Converter Supervisor: José Miguel Monzon DO C.trachomatis N.gonorrhoeae DNA, Urineon 07-26-2020 C. trachomatis DNA ,Urine Negative NEGATIVE [facility], [place] Comment on above: CHLAMYDIA TRACHOMATI S DNA [...] target. N. gonorrhoeae DNA, Urine Negative NEGATIVE [facility], [place] Comment on above: NEISSERIA GONORRHOEA E DNA [...] alternative nucleic acid target. Specimen Description .URINE [facility], [place] Chlamydia/GC DNA, Uron 07-26 Chlamydia Probe, Ur Negative Normal NEG [facility] Comment on above: Result Comment: CHLA [...] target. Performed By: #### U HCG #### [facility] [address] [place] [address] Converter Supervisor: Fanelly, José Miguel, DO Gonorrhea Probe, Ur Negative Normal NEG [facility] Comment on above: Result Comment: NEIS [...] target. Performed By: #### U HCG #### [facility] [address] [facility] [place], [place] [id number] Converter Supervisor: José Miguel Monzon DO INSIDE SALES LEAD Cytologyon 07-25-2020 Cytology report Cyto stain.thin prep Doc (Cvx/Vag) INTERPRETATION Cervical material, (ThinPrep vial, Imaging-assisted review): Specimen Adequacy: Satisfactory for evaluation. - Endocervical/transfor mation zone component present. 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 Atypical squamous cells of undetermined significance, cannot exclude high grade squamous intraepithelial lesion (ASC-H). Comments: High Risk HPV testing was ordered. Junior Php Developer: GRACE Mclain M.D. Electronically Signed Out sls07/25/2020 Procedure/Addendum HPV Procedure Report Date Ordered: 07/25/2020 Status: Complete Date Complete: 07/25/2020 By: Date Reported: Source: 1: Cervical material, (ThinPrep vial, Imaging-assisted review) Clinical History Co-Test: ThinPrep Pap with high risk HPV testing GYNECOLOGIC CYTOLOGY REPORT Patient Name: LORNA DEUTSCH [facility] Rec: [id number] Path Number: [id number] [facility] ANAT[facility] PATH[facility] [address] [place] [address]. [place], [place] [address] [facility], [place] HPV DNA High Riskon 07-25-20 20 HVP Source .GENITAL - NOT SPECIFIED Normal [facility] Comment on above: Performed By: #### U HCG #### [facility] [address] [facility] [place], [place] [id number] Converter Supervisor: José Miguel Monzon DO Otheron 07-25-2020 EXAMINATION: [...] Fluid: Small volume left adnexal free fluid. [place], [place], [facility] Incoming Radiant Results From [employer] - 07/25/2020 7:17 PM EDT EXAMINATION: PELVIC [...] ovarian cyst. No follow-up imaging is recommended. [place], [place] Unremarkable pelvic ultrasound. 3.2 cm simple left ovarian cyst. No follow-up imaging is recommended. [place], [place] US NON OB TRANSVAGINALon US NON [...] Micheal Montesinos MD 07/25/20 Final result Normal [facility] US PELVIS COMPLETEon 020 US PELVIS COMPLETE [...] Micheal Montesinos MD 07/25/20 Final result Normal [facility] Cytologyon 07-24-2020 Cytology (NOTE) INTERPRETATION Cervical material, (ThinPrep vial, Imaging-assisted review): Specimen Adequacy: Satisfactory for evaluation. - Endocervical/transfor mation zone component present. 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 Atypical squamous cells of undetermined significance, cannot exclude high grade squamous intraepithelial lesion (ASC-H). Comments: High Risk HPV testing was ordered. Junior Php Developer: GRACE Mclain M.D. Electronically Signed Out 07/25/2020 Procedure/Addendum HPV Procedure Report Date Ordered: 07/25/2020 [...] specimen submitted for testing did not meet [employer] submission guidelines. Testing was performed on a specimen that did not meet validated specimen type requirements. Performance characteristics of this assay may be affected. Interpret results with caution. Please refer to the [employer] Laboratory Test Directory for information on specimen acceptability: [email or web address] [email or web address]/[email or web address]. Performed By: [employer] [address] [place] [address] Implementation Specialist Payroll: Rebeca Alvarez MD Source: 1: Cervical material, (ThinPrep vial, Imaging-assisted review) Clinical History Co-Test: ThinPrep Pap with high risk HPV testing GYNECOLOGIC CYTOLOGY REPORT Patient Name: LORNA DEUTSCH Rec: [id number] Path Number: [id number] [facility] [address] [place] [phone] Normal [facility] Comment on above: Performed By: #### A HCV, HIVCMB #### [address] [id number] Converter Supervisor: Bryan Cruz MD Otheron 07-24-2020 Direct Exam Negative [place], [place] Vaginitis DNA Probeon 2019 Vaginitis DNA [...] vaginitis/vaginosis. Report Status FINAL 07/24/2020 [facility] Comment on above: Performed By: #### U HCG #### [facility] [address] [place] [address] Converter Supervisor: José Miguel Monzon DO Direct Exam Method of testing is a DNA probe intended for detection and identification of Jose Ramon species, Gardnerella vaginalis, and Trichomonas vaginalis nucleic acid in vaginal fluid specimens from patients with symptoms of vaginitis/vaginosis. [place], [place] Special Requests NOT REPORTED [place] Specimen Description .VAGINA [place], [place] CBC with DIFFon 07-23-2020 Basophils (Bld) [#/Vol] 0.00 10*3/uL [place] Basophils/100 WBC (Bld) 0 % 0 - 2 % M [place], [place] Differential Type NOT REPORTED [place] Eosinophils (Bld) [#/Vol] 0.20 10*3/uL [place] Eosinophils/100 WBC (Bld) 4 % 0 - 4 % [place] Erythrocyte distribution width (RBC) [Ratio] 13.3 % 11.5 - 14.9 % [place] Hematocrit (Bld) [Volume fraction] 40.0 % 36 - 46 % [place] Hemoglobin (Bld) [Mass/Vol] 13.7 g/dL 12 - 16 g/dL [place] Interpretation and review of laboratory results Abnormal [place] Lymphocytes (Bld) [#/Vol] 2.64 10*3/uL [place] Lymphocytes/100 WBC (Bld) 54 % High 24 - 44 % [place] MCH (RBC) [Entitic mass] 31.4 pg 26 - 34 pg [place] MCHC (RBC) [Mass/Vol] 34.2 g/dL 31 - 37 g/dL M [place], [place] MCV (RBC) [Entitic vol] 91.9 fL 80 - 100 fL [place], [place] Monocytes (Bld) [#/Vol] 0.20 10*3/uL [place] Monocytes/100 WBC (Bld) 4 % 1 - 7 % [place], [place] Morphology Dami (Bld) [Interp] Normal [place], [place] Platelet mean volume (Bld) [Entitic vol] 10.1 fL 6 - 12 fL [place] Platelets (Bld) [#/Vol] NOT REPORTED [place] Platelets (Bld) [#/Vol] 142 10*3/uL Low [place], [place] RBC (Bld) [#/Vol] 4.36 10*6/uL 4 - 5.2 m/uL [place], [place] RBC morphology finding Nom (Bld) NOT REPORTED [place] Segmented neutrophils/100 WBC (Bld) 38 % 36 - 66 % [place] Segs Absolute 1.86 [place] WBC (Bld) [#/Vol] NOT REPORTED per 100 WBC [place] WBC (Bld) [#/Vol] 4.9 10*3/uL [place] WBC Morphology NOT REPORTED [place] CBC with Diffon 07-23-2020 Abs. Basophil 0.00 k/uL Normal 0.0-0.2 [facility] Comment on above: Performed By: #### U HCG #### [facility] [place] [address] Converter Supervisor: José Miguel Monzon DO Abs.Neutrophil (Seg) 1.86 k/uL Normal 1.3-9.1 [facility] Comment on above: Performed By: #### U HCG #### [facility] [address] [place] [address] Converter Supervisor: José Miguel Monzon DO Basophils/100 WBC (Bld) 0 % Normal 0-2 [facility] Comment on above: Performed By: #### U HCG #### [facility] [place] [address] Converter Supervisor: José Miguel Monzon DO Eosinophils (Bld) [#/Vol] 0.20 10*3/uL Normal 0.0-0.4 [facility] Comment on above: Performed By: #### U HCG #### [facility] [address] [place] [address] Converter Supervisor: José Miguel Monzon DO Eosinophils/100 WBC (Bld) 4 % Normal 0-4 [facility] Comment on above: Performed By: #### U HCG #### [facility] [address] [place] [address] Converter Supervisor: José Miguel Monzon DO Lymphocytes (Bld) [#/Vol] 2.64 10*3/uL Normal 1.0-4.8 [facility] Comment on above: Performed By: #### U HCG #### [facility] [address] [place] [address] Converter Supervisor: José Miguel Monzon DO Lymphocytes/100 WBC (Bld) 54 % High 24-44 [facility] Comment on above: Performed By: #### U HCG #### [facility] [address] [place] [address] Converter Supervisor: José Miguel Monzon DO Monocytes (Bld) [#/Vol] 0.20 10*3/uL Normal 0.1-1.3 [facility] Comment on above: Performed By: #### U HCG #### [facility] [place] [address] Converter Supervisor: José Mgiuel Monzon DO Monocytes/100 WBC (Bld) 4 % Normal 1-7 M [facility] Comment on above: Performed By: #### U HCG #### [facility] [facility] [place] [address] Converter Supervisor: José Miguel Monzon DO Morphology Dami (Bld) [Interp] Normal Normal [facility] Comment on above: Performed By: #### U HCG #### [facility] [place] [facility] [place] [address] Converter Supervisor: José Miguel Monzon DO Neutrophil (Seg) 38 % Normal 36-66 [facility] Comment on above: Performed By: #### U HCG #### [facility] [place] [address] Converter Supervisor: José Miguel Monzon DO Erythrocyte distribution width (RBC) [Ratio] 13.3 % Normal 11.5-14.9 [facility] Comment on above: Performed By: #### U HCG #### [facility] [place] [facility] [place] [address] Converter Supervisor: José Miguel Monzon DO Hematocrit (Bld) [Volume fraction] 40.0 % Normal 36-46 [facility] Comment on above: Performed By: #### U HCG #### [facility] [address] [place] [address] Converter Supervisor: José Miguel Monzon DO Hemoglobin (Bld) [Mass/Vol] 13.7 g/dL Normal 12.0-16.0 [facility] Comment on above: Performed By: #### U HCG #### [facility] [address] [place] [address] Converter Supervisor: José Miguel Monzon DO MCH (RBC) [Entitic mass] 31.4 pg Normal 26-34 [facility] Comment on above: Performed By: #### U HCG #### [facility] [address] [place] [address] Converter Supervisor: José Miguel Monzon DO MCHC (RBC) [Mass/Vol] 34.2 g/dL Normal 31-37 [facility] Comment on above: Performed By: #### U HCG #### [facility] [address] [place] [address] Converter Supervisor: José Miguel Monzon DO MCV (RBC) [Entitic vol] 91.9 fL Normal 80-100 M [facility] Comment on above: Performed By: #### U HCG #### [facility] [address] [place] [address] Converter Supervisor: José Miguel Monzon DO Platelet mean volume (Bld) [Entitic vol] 10.1 fL Normal 6.0-12.0 [facility] Comment on above: Performed By: #### U HCG #### [facility] [address] [place] [address] Converter Supervisor: José Miguel Monzon DO Platelets (Bld) [#/Vol] 142 10*3/uL Low 150-450 [facility] Comment on above: Performed By: #### U HCG #### [facility] [address] [place] [address] Converter Supervisor: José Miguel Monzon DO RBC (Bld) [#/Vol] 4.36 10*6/uL Normal 4.0-5.2 [facility] Comment on above: Performed By: #### U HCG #### [facility] [address] [place] [address] Converter Supervisor: José Miguel Monzon DO WBC (Bld) [#/Vol] 4.9 10*3/uL Normal 3.5-11.0 [facility] Comment on above: Performed By: #### U HCG #### [facility] [address] [place] [address] Converter Supervisor: José Miguel Monzon DO Abs.Imm.Granulocyte NOT REPORTED Normal 0.00-0.30 [facility] Comment on above: Performed By: #### U HCG #### [facility] [address] [place] [address] Converter Supervisor: José Miguel Monzon DO Auto Diff Performed NOT REPORTED Normal [facility] Comment on above: Performed By: #### U HCG #### [facility] [address] [place] [address] Converter Supervisor: José Miguel Monzon DO Immature Granulocyte NOT REPORTED Normal 0 [facility] Comment on above: Performed By: #### U HCG #### [facility] [address] [place] [address] Converter Supervisor: José Miguel Monzon DO NRBC Automated NOT REPORTED Normal [facility] Comment on above: Performed By: #### U HCG #### [facility] [address] [place] [address] Converter Supervisor: José Miguel Monzon DO Platelet Estimate NOT REPORTED Normal [facility] Comment on above: Performed By: #### U HCG #### [facility] [place] [place] [address] Converter Supervisor: José Miguel Monzon DO RBC morphology finding Nom (Bld) NOT REPORTED Normal [facility] Comment on above: Performed By: #### U HCG #### [facility] [address] [facility] [place] [place] [address] Converter Supervisor: José Miguel Monzon DO WBC Morphology NOT REPORTED Normal [facility] Comment on above: Performed By: #### U HCG #### [facility] [place] [place] [address] Converter Supervisor: José Miguel Monzon DO HCG, ,Urineon 07-23 Beta HCG ( test) Ql (U) Negative Normal NEG [facility] Comment on above: Result Comment: Spec imens with hCG levels near the threshold of the test (25 mIU/mL) may give a negative or indeterminate result. In such cases, another test should be performed with a new specimen in 48-72 hours. If early is suspected clinically in this setting, correlation with quantitative serum b-hCG level is suggested. Performed By: #### U HCG #### [facility] [place] [place] [address] Converter Supervisor: José Miguel Monzon DO Beta HCG ( test) Ql (U) Negative NEGATIVE [facility] [employer] [place], [place] Comment on above: Specimens with hCG l evels near the threshold of the test (25 mIU/mL) may give a negative or indeterminate result. In such cases, another test should be performed with a new specimen in 48-72 hours. If early is suspected clinically in this setting, correlation with quantitative serum b-hCG level is suggested. Otheron 07-23-2020 Immature granulocytes (Bld) [#/Vol] NOT REPORTED [facility] [place] [facility] 12 Leadon 07-21-2020 Atrial Rate 64 BPM [place] 54 degrees [place] P-R Interval 138 ms [place] Q-T Interval 384 ms [place] QRS Duration 92 ms [place] QTc Calculation (Baz[place]) 396 ms [place] 66 degrees [facility], [place] 66 degrees [facility], [place] Ventricular Rate 64 BPM [place], [facility] Incoming Ekg Results From [facility] - 07/21/2020 9:25 AM EDT Normal sinus rhythm Normal ECG No previous ECGs available [place] Normal sinus rhythm Normal ECG No previous ECGs available [place] HIV Ag/Abon 07-21-2020 HIV Ag/Ab Non-Reactive Normal NR [facility] Comment on above: Result Comment: No l aboratory evidence of HIV infection. If acute HIV infection is suspected, consider testing for HIV-1 RNA. Performed By: #### A HCV, HIVCMB #### [employer] [address] [place] [address] Converter Supervisor: Bryan Cruz MD HIV Screenon 07-21-2020 HIV Ag/Ab NONREACTIVE NONREACTIVE [place] Comment on above: No laboratory eviden ce of HIV infection. If acute HIV infection is suspected, consider testing for HIV-1 RNA. T.pallidum Ab Screenon 07-21 T.pallidum Ab Screen Non-Reactive Normal NR [facility] Comment on above: Result Comment: T. pallidum antibodies are not detected. There is no serological evidence of infection with T. pallidum (early primary syphilis cannot be excluded). Retest in 2-4 weeks if syphilis is clinically suspect. Performed By: #### A HCV, HIVCMB #### [facility] [employer] [address] [place] [address] Converter Supervisor: Bryan Cruz MD T. pallidum, IgG NONREACTIVE NONREACTIVE [place] Comment on above: T. pallidum antibodies are not detected. There is no serological evidence of infection with T. pallidum (early primary syphilis cannot be excluded). Retest in 2-4 weeks if syphilis is clinically suspect. Valproic Acidon 07-21-2020 Date last dose, [id number] [facility] Comment on above: Performed By: #### A HCV, HIVCMB #### [facility] [address] [place] [address] Converter Supervisor: Bryan Cruz MD Dose amount 1000 MG Normal [facility] Comment on above: Performed By: #### A HCV, HIVCMB #### [facility] [employer] [address] [place] [address] Converter Supervisor: Bryan Cruz MD Time last dose, 2040 [facility] Comment on above: Performed By: #### A HCV HIVCMB #### [facility] [employer] [address] [place] [address] Converter Supervisor: Bryan Cruz MD Valproic Acid 95 ug/mL Normal 50-125 [facility] Comment on above: Performed By: #### A HCV, HIVCMB #### [facility] [employer] [address] [place] [address] Converter Supervisor: Bryan Cruz MD Valproic Acid Lvl 95 ug/mL 50 - 125 ug/mL [place] Valproic Date last dose [id number] M [place], [place] Valproic Dose amount 1000 MG [place], [place] Valproic Time last dose 2040 M [place], [place] CBC with Diffon 07-20-2020 Abs. Basophil 0.00 k/uL Normal 0.0-0.2 [facility] Comment on above: Performed By: #### A HCV, HIVCMB #### [facility] [employer] [address] [place] [address] Converter Supervisor: Bryan Cruz MD Abs.Neutrophil (Seg) 1.80 k/uL Normal 1.3-9.1 [facility] Comment on above: Performed By: #### A HCV, HIVCMB #### [address] [address] Converter Supervisor: Bryan Cruz MD Basophils/100 WBC (Bld) 0 % Normal 0-2 M [facility] Comment on above: Performed By: #### A HCV, HIVCMB #### [address] [address] Converter Supervisor: Bryan Cruz MD Eosinophils (Bld) [#/Vol] 0.04 10*3/uL Normal 0.0-0.4 [facility] Comment on above: Performed By: #### A HCV, HIVCMB #### [address] [address] Converter Supervisor: Bryan Cruz MD Eosinophils/100 WBC (Bld) 1 % Normal 0-4 [facility] Comment on above: Performed By: #### A HCV, HIVCMB #### [address] [address] Converter Supervisor: Bryan Cruz MD Lymphocytes (Bld) [#/Vol] 1.92 10*3/uL Normal 1.0-4.8 [facility] Comment on above: Performed By: #### A HCV, HIVCMB #### [address] [address] Converter Supervisor: Bryan Cruz MD Lymphocytes/100 WBC (Bld) 48 % High 24-44 [facility] Comment on above: Performed By: #### A HCV, HIVCMB #### [address] [address] Converter Supervisor: Bryan Cruz MD Monocytes (Bld) [#/Vol] 0.24 10*3/uL Normal 0.1-1.3 [facility] Comment on above: Performed By: #### A HCV, HIVCMB #### [address] [address] Converter Supervisor: Bryan Cruz MD Monocytes/100 WBC (Bld) 6 % Normal 1-7 M [facility] Comment on above: Performed By: #### A HCV, HIVCMB #### [address] [address] Converter Supervisor: Bryan Cruz MD Morphology Dami (Bld) [Interp] Normal Normal [facility] Comment on above: Performed By: #### A HCV, HIVCMB #### [address] [address] Converter Supervisor: Bryan Cruz MD Neutrophil (Seg) 45 % Normal 36-66 [facility] Comment on above: Performed By: #### A HCV, HIVCMB #### [address] [address] Converter Supervisor: Bryan Cruz MD Erythrocyte distribution width (RBC) [Ratio] 13.6 % Normal 11.5-14.9 [facility] Comment on above: Performed By: #### A HCV, HIVCMB #### [address] [address] Converter Supervisor: Bryan Cruz MD Hematocrit (Bld) [Volume fraction] 41.6 % Normal 36-46 [facility] Comment on above: Performed By: #### A HCV, HIVCMB #### [address] [address] Converter Supervisor: Bryan Cruz MD Hemoglobin (Bld) [Mass/Vol] 13.9 g/dL Normal 12.0-16.0 [facility] Comment on above: Performed By: #### A HCV, HIVCMB #### [address] [address] Converter Supervisor: Bryan Cruz MD MCH (RBC) [Entitic mass] 31.5 pg Normal 26-34 [facility] Comment on above: Performed By: #### A HCV, HIVCMB #### [address] [address] Converter Supervisor: Bryan Cruz MD MCHC (RBC) [Mass/Vol] 33.5 g/dL Normal 31-37 [facility] Comment on above: Performed By: #### A HCV, HIVCMB #### [address] [address] Converter Supervisor: Bryan Cruz MD MCV (RBC) [Entitic vol] 94.1 fL Normal 80-100 M [facility] Comment on above: Performed By: #### A HCV, HIVCMB #### [address] [address] Converter Supervisor: Bryan Cruz MD Platelet mean volume (Bld) [Entitic vol] 9.0 fL Normal 6.0-12.0 [facility] Comment on above: Performed By: #### A HCV, HIVCMB #### [address] [address] Converter Supervisor: Bryan Cruz MD Platelets (Bld) [#/Vol] 159 10*3/uL Normal 150-450 [facility] Comment on above: Performed By: #### A HCV, HIVCMB #### [address] [address] Converter Supervisor: Bryan Cruz MD RBC (Bld) [#/Vol] 4.42 10*6/uL Normal 4.0-5.2 [facility] Comment on above: Performed By: #### A HCV, HIVCMB #### [address] [address] Converter Supervisor: Bryan Cruz MD WBC (Bld) [#/Vol] 4.0 10*3/uL Normal 3.5-11.0 [facility] Comment on above: Performed By: #### A HCV, HIVCMB #### [address] [address] Converter Supervisor: Bryan Cruz MD Abs.Imm.Granulocyte NOT REPORTED Normal 0.00-0.30 [facility] Comment on above: Performed By: #### A HCV, HIVCMB #### [address] [address] Converter Supervisor: Bryan Cruz MD Auto Diff Performed NOT REPORTED Normal [facility] Comment on above: Performed By: #### A HCV, HIVCMB #### [address] [address] Converter Supervisor: Bryan Cruz MD Immature Granulocyte NOT REPORTED Normal 0 Me [facility] Comment on above: Performed By: #### A HCV, HIVCMB #### [address] [address] Converter Supervisor: Bryan Cruz MD NRBC Automated NOT REPORTED Normal [facility] Comment on above: Performed By: #### A HCV, HIVCMB #### [address] [address] Converter Supervisor: Bryan Cruz MD Platelet Estimate NOT REPORTED Normal [facility] Comment on above: Performed By: #### A HCV, HIVCMB #### [address] [address] Converter Supervisor: Bryan Cruz MD RBC morphology finding Nom (Bld) NOT REPORTED Normal [facility] Comment on above: Performed By: #### A HCV, HIVCMB #### [address] [address] Converter Supervisor: Bryan Cruz MD WBC Morphology NOT REPORTED Normal [facility] Comment on above: Performed By: #### A HCV, HIVCMB #### [address] [address] Converter Supervisor: Bryan Cruz MD Comp Metabolic Profon 2019 (cont.) Normal [facility] Comment on above: Result Comment: Aver age GFR for 30-39 years old: 107 mL/min/1.73sq m Chronic Kidney Disease: <60 mL/min/1.73sq m Kidney failure: <15 mL/min/1.73sq m eGFR calculated using average adult body mass. Additional eGFR calculator available at: http://www.[employer]/multiple_crcl_2011.htm Performed By: #### A HCV, HIVCMB #### [address] [address] Converter Supervisor: Bryan Cruz MD Albumin [Mass/Vol] 3.7 g/dL Normal 3.5-5.2 [facility] Comment on above: Performed By: #### A HCV, HIVCMB #### [address] [address] Converter Supervisor: Brayn Cruz MD Alkaline Phos 42 U/L Normal 35-104 [facility] Comment on above: Performed By: #### A HCV, HIVCMB #### [address] [address] Converter Supervisor: Bryan Cruz MD ALT [Catalytic activity/Vol] 9 U/L Normal 5-33 [facility] Comment on above: Performed By: #### A HCV, HIVCMB #### [address] [address] Converter Supervisor: Bryan Cruz MD Anion gap [Moles/Vol] 10 mmol/L Normal 9-17 [facility] Comment on above: Performed By: #### A HCV, HIVCMB #### [address] [address] Converter Supervisor: Bryan Cruz MD AST [Catalytic activity/Vol] 11 U/L Normal <32 [facility] Comment on above: Performed By: #### A HCV, HIVCMB #### [address] [place] [address] Converter Supervisor: Bryan Cruz MD Bilirubin [Mass/Vol] 0.23 mg/dL Low 0.3-1.2 [facility] Comment on above: Performed By: #### A HCV, HIVCMB #### [address] [address] Converter Supervisor: Bryan Cruz MD Calcium [Mass/Vol] 9.3 mg/dL Normal 8.6-10.4 [facility] Comment on above: Performed By: #### A HCV, HIVCMB #### [address] [address] Converter Supervisor: Bryan Cruz MD Chloride [Moles/Vol] 105 mmol/L Normal 98-107 [facility] Comment on above: Performed By: #### A HCV, HIVCMB #### [address] [address] Converter Supervisor: Bryan Cruz MD CO2 [Moles/Vol] 24 mmol/L Normal 20-31 [facility] Comment on above: Performed By: #### A HCV, HIVCMB #### [address] [address] Converter Supervisor: Bryan Cruz MD Creatinine [Mass/Vol] 0.53 mg/dL Normal 0.50-0.90 [facility] Comment on above: Performed By: #### A HCV, HIVCMB #### [address] [address] Converter Supervisor: Bryan Cruz MD GFR, Amer >60 Normal >60 [facility] Comment on above: Performed By: #### A HCV, HIVCMB #### [address] [address] Converter Supervisor: Bryan Cruz MD GFR,non Amer >60 Normal >60 [facility] Comment on above: Performed By: #### A HCV, HIVCMB #### [address] [address] Converter Supervisor: Bryan Cruz MD Glucose [Mass/Vol] 88 mg/dL Normal 70-99 [facility] Comment on above: Performed By: #### A HCV, HIVCMB #### [address] [address] Converter Supervisor: Bryan Cruz MD Potassium [Moles/Vol] 4.6 mmol/L Normal 3.7-5.3 [facility] Comment on above: Performed By: #### A HCV, HIVCMB #### [address] [address] Converter Supervisor: Bryan Cruz MD Protein [Mass/Vol] 6.4 g/dL Normal 6.4-8.3 [facility] Comment on above: Performed By: #### A HCV, HIVCMB #### [address] [address] Converter Supervisor: Bryan Cruz MD Sodium [Moles/Vol] 139 mmol/L Normal 135-144 [facility] Comment on above: Performed By: #### A HCV, HIVCMB #### [address] [address] Converter Supervisor: Bryan Cruz MD Urea nitrogen [Mass/Vol] 17 mg/dL Normal 6-20 [facility] Comment on above: Performed By: #### A HCV, HIVCMB #### [address] [address] Converter Supervisor: Bryan Cruz MD Albumin/Glob Ratio NOT REPORTED Normal 1.0-2.5 [facility] Comment on above: Performed By: #### A HCV, HIVCMB #### [address] [address] Converter Supervisor: Bryan Cruz MD BUN/CRE Ratio NOT REPORTED Normal 9-20 [facility] Comment on above: Performed By: #### A HCV, HIVCMB #### [facility] [address] [place], [place] [id number] Converter Supervisor: Bryan Cruz MD Staging: NOT REPORTED Normal [facility] Comment on above: Performed By: #### A HCV, HIVCMB #### [facility] [address] [place], [place] [id number] Converter Supervisor: Bryan Cruz MD Albumin [Mass/Vol] 3.7 g/dL 3.5 - 5.2 g/dL [place] Albumin/Globulin [Mass ratio] NOT REPORTED [place] ALP [Catalytic activity/Vol] 42 U/L 35 - 104 U/L [place] ALT [Catalytic activity/Vol] 9 U/L 5 - 33 U/L [place] Anion gap [Moles/Vol] 10 mmol/L 9 - 17 mmol/L [place] AST [Catalytic activity/Vol] 11 U/L <32 [place] Bilirubin Ql (U) 0.23 mg/dL Low 0.3 - 1.2 mg/dL [place] Bun/Cre Ratio NOT REPORTED [place] Calcium [Mass/Vol] 9.3 mg/dL 8.6 - 10. 4 mg/dL [place] Chloride [Moles/Vol] 105 mmol/L 98 - 10 7 mmol/L [place] CO2 [Moles/Vol] 24 mmol/L 20 - 31 mmol/L [place] Creatinine [Mass/Vol] 0.53 mg/dL 0.5 - 0.9 mg/dL [place] GFR >60 >60 mL/min [place], [place] GFR Non- >60 >60 mL/min [place] GFR/1.73 sq M predicted among non-blacks MDRD (S/P/Bld) [Vol rate/Area] NOT REPORTED [place] GFR/1.73 sq M predicted among non-blacks MDRD (S/P/Bld) [Vol rate/Area] [place], [place] Comment on above: Average GFR for 30-3 9 years old: 107 mL/min/1.73sq m Chronic Kidney Disease: <60 mL/min/1.73sq m Kidney failure: <15 mL/min/1.73sq m eGFR calculated using average adult body mass. Additional eGFR calculator available at: http://www.[employer]/multiple_crcl_2012.htm Glucose [Mass/Vol] 88 mg/dL 70 - 99 mg/dL [place], [place] Interpretation and review of laboratory results Abnormal [place] Potassium [Moles/Vol] 4.6 mmol/L 3.7 - 5.3 mmol/L [place] Protein [Mass/Vol] 6.4 g/dL 6.4 - 8.3 g/dL [place] Sodium [Moles/Vol] 139 mmol/L 135 - 144 mmol/L [place] Urea nitrogen [Mass/Vol] 17 mg/dL 6 - 20 mg/dL [place] Hep C Abon 07-20-2020 Hep C Ab Reactive Abnormal NR [facility] Comment on above: Result Comment: The [...] Performed By: #### A HCV, HIVCMB #### [address] [place] [address] Converter Supervisor: Bryan Cruz MD Hepatitis C Ab REACTIVE Abnormal NONREACTIVE [place], [place] Comment on above: The hepatitis C [...] Interpretation and review of laboratory results Abnormal [place] TSH w/reflex to FT4on 2019 TSH Qn 3.88 m[IU]/L Normal 0.30-5.00 [facility] Comment on above: Performed By: #### A HCV, HIVCMB #### [address] [place], [place] [id number] Converter Supervisor: Bryan Cruz MD TSH Qn 3.88 m[IU]/L [place] Cult,Urineon 05-09-2019 Cult,Urine Specimen Description .CLEAN CATCH URINE Special Requests NOT REPORTED Culture STREPTOCOCCI, BETA HEMOLYTIC GROUP B <[id number] CFU/ML Report Status FINAL 05/09/2019 Normal [facility] Comment on above: Performed By: #### U RC #### [address] [id number] Converter Supervisor: Bryan Cruz MD [address] [place] [address] Converter Supervisor: Reji Brown MD CBC with Diffon 05-08-2019 Abs. Basophil 0.03 k/uL Normal 0.00-0.20 [facility] Comment on above: Performed By: #### C MPX, CDP, LIP, HCG #### [address] [place] [address] Converter Supervisor: Reji Brown MD Abs.Imm.Granulocyte <0.03 Normal 0.00-0.30 [facility] Comment on above: Performed By: #### C MPX, CDP, LIP, HCG #### [address] [place] [address] Converter Supervisor: Reji Brown MD Abs.Neutrophil (Seg) 2.35 k/uL Normal 1.50-8.10 [facility] Comment on above: Performed By: #### C MPX, CDP, LIP, HCG #### [place] [address] [place] [address] Converter Supervisor: Reji Brown MD Basophils/100 WBC (Bld) 1 % Normal 0-2 M [facility] Comment on above: Performed By: #### C MPX, CDP, LIP, HCG #### [address] [place], [facility] Converter Supervisor: Reji Brown MD Eosinophils (Bld) [#/Vol] 0.20 10*3/uL Normal 0.00-0.44 [facility] Comment on above: Performed By: #### C MPX, CDP, LIP, HCG #### [address] [place], [facility] Converter Supervisor: Reji Brown MD Eosinophils/100 WBC (Bld) 4 % Normal 1-4 [facility] Comment on above: Performed By: #### C MPX, CDP, LIP, HCG #### [address] [place], [facility]83 Converter Supervisor: Reji Brown MD Erythrocyte distribution width (RBC) [Ratio] 14.2 % Normal 11.8-14.4 [facility] Comment on above: Performed By: #### C MPX, CDP, LIP, HCG #### [address] [place], [facility] Converter Supervisor: Reji Brown MD Hematocrit (Bld) [Volume fraction] 34.3 % Low 36.3-47.1 [facility] Comment on above: Performed By: #### C MPX, CDP, LIP, HCG #### [address] [place] [address] Converter Supervisor: Reji Brown MD Hemoglobin (Bld) [Mass/Vol] 11.2 g/dL Low 11.9-15.1 [facility] Comment on above: Performed By: #### C MPX, CDP, LIP, HCG #### [address] [place], [place] [id number] Converter Supervisor: Reji Brown MD Immature granulocytes (Bld) [#/Vol] 0 % Normal 0 [facility] Comment on above: Performed By: #### C MPX, CDP, LIP, HCG #### [facility] [address] [place], [place] [id number] Converter Supervisor: Reji Brown MD Lymphocytes (Bld) [#/Vol] 2.75 10*3/uL Normal 1.10-3.70 [facility] Comment on above: Performed By: #### C MPX, CDP, LIP, HCG #### [facility] [address] [place], [place] [id number] Converter Supervisor: Reji Brown MD Lymphocytes/100 WBC (Bld) 46 % High 24-43 [facility] Comment on above: Performed By: #### C MPX, CDP, LIP, HCG #### [address] [place], [facility]83 Converter Supervisor: Reji Brown MD MCH (RBC) [Entitic mass] 30.7 pg Normal 25.2-33.5 [facility] Comment on above: Performed By: #### C MPX, CDP, LIP, HCG #### [address] [place], [facility] Converter Supervisor: Reji Brown MD MCHC (RBC) [Mass/Vol] 32.7 g/dL Normal 28.4-34.8 [facility] Comment on above: Performed By: #### C MPX, CDP, LIP, HCG #### [address] [place], [place] [id number] Converter Supervisor: Reji Brown MD MCV (RBC) [Entitic vol] 94.0 fL Normal 82.6-102.9 M [facility] Comment on above: Performed By: #### C MPX, CDP, LIP, HCG #### [address] [place], [place] [id number] Converter Supervisor: Reji Brown MD Monocytes (Bld) [#/Vol] 0.43 10*3/uL Normal 0.10-1.20 [facility] Comment on above: Performed By: #### C MPX, CDP, LIP, HCG #### [facility] [address] [place], [place] [address] Converter Supervisor: Reji Brown MD Monocytes/100 WBC (Bld) 8 % Normal 3-12 M [facility] Comment on above: Performed By: #### C MPX, CDP, LIP, HCG #### [facility] [address] [place], [facility]83 Converter Supervisor: Reji Brown MD Neutrophil (Seg) 41 % Normal 36-65 [facility] Comment on above: Performed By: #### C MPX, CDP, LIP, HCG #### [facility] [address] [place], [facility]83 Converter Supervisor: Reji Brown MD NRBC Automated 0.0 per 100 WBC Normal 0.0 [facility] Comment on above: Performed By: #### C MPX, CDP, LIP, HCG #### [facility] [address] [place], [facility] Converter Supervisor: Reji Brown MD Platelet mean volume (Bld) [Entitic vol] 10.5 fL Normal 8.1-13.5 [facility] Comment on above: Performed By: #### C MPX, CDP, LIP, HCG #### [facility] [address] [place], [place] [facility] Converter Supervisor: Reji Brown MD Platelets (Bld) [#/Vol] 219 10*3/uL Normal 138-453 [facility] Comment on above: Performed By: #### C MPX, CDP, LIP, HCG #### [facility] [address] [place] [id number] Converter Supervisor: Reji Brown MD RBC (Bld) [#/Vol] 3.65 10*6/uL Low 3.95-5.11 [facility] Comment on above: Performed By: #### C MPX, CDP, LIP, HCG #### [facility] [address] [place] [id number] Converter Supervisor: Reij Brown MD WBC (Bld) [#/Vol] 5.8 10*3/uL Normal 3.5-11.3 [facility] Comment on above: Performed By: #### C MPX, CDP, LIP, HCG #### [address] [place] [address] Converter Supervisor: Reji Brown MD Auto Diff Performed NOT REPORTED Normal [facility] Comment on above: Performed By: #### C MPX, CDP, LIP, HCG #### [address] [place] [address] Converter Supervisor: Reji Brown MD Platelets (Bld) [#/Vol] NOT REPORTED Normal [facility] Comment on above: Performed By: #### C MPX, CDP, LIP, HCG #### [address] [place], [facility] Converter Supervisor: Reji Brown MD RBC morphology finding Nom (Bld) NOT REPORTED Normal [facility] Comment on above: Performed By: #### C MPX, CDP, LIP, HCG #### [facility] [address] [place], [facility] Converter Supervisor: Reji Brown MD WBC Morphology NOT REPORTED Normal [facility] Comment on above: Performed By: #### C MPX, CDP, LIP, HCG #### [facility] [address] [place], [place] [id number] Converter Supervisor: Reji Brown MD Comp Metabolic Pr/rfx MGon 0 7-28-2019 Bilirubin Ql (U) <0.10 Low 0.3-1.2 [facility] Comment on above: Performed By: #### C MPX, CDP, LIP, HCG #### [facility] [address] [place] [address] Converter Supervisor: Reji Brown MD (cont.) [facility] Comment on above: Result Comment: Aver age GFR for 30-39 years old: 107 mL/min/1.73sq m Chronic Kidney Disease: <60 mL/min/1.73sq m Kidney failure: <15 mL/min/1.73sq m eGFR calculated using average adult body mass. Additional eGFR calculator available at: http://www.[employer]/multiple_crcl_2011.htm Performed By: #### C MPX, CDP, LIP, HCG #### [facility] [address] [place] [address] Converter Supervisor: Reji Brown MD Albumin [Mass/Vol] 4.0 g/dL Normal 3.5-5.2 [facility] Comment on above: Performed By: #### C MPX, CDP, LIP, HCG #### [facility] [address] [place] [address] Converter Supervisor: Reji Brown MD Albumin/Globulin [Mass ratio] 1.5 {ratio} Normal 1.0-2.5 [facility] Comment on above: Performed By: #### C MPX, CDP, LIP, HCG #### [facility] [address] [place] [address] Converter Supervisor: Reji Brown MD Alkaline Phos 53 U/L Normal 35-104 [facility] Comment on above: Performed By: #### C MPX, CDP, LIP, HCG #### [facility] [address] [place] [address] Converter Supervisor: Reji Brown MD ALT [Catalytic activity/Vol] 11 U/L Normal 5-33 [facility] Comment on above: Performed By: #### C MPX, CDP, LIP, HCG #### [facility] [address] [place], [place] [id number] Converter Supervisor: Reji Brown MD Anion gap [Moles/Vol] 9 mmol/L Normal 9-17 [facility] Comment on above: Performed By: #### C MPX, CDP, LIP, HCG #### [facility] [address] [place], [place] [id number] Converter Supervisor: Reji Brown MD AST [Catalytic activity/Vol] 16 U/L Normal <32 [facility] Comment on above: Performed By: #### C MPX, CDP, LIP, HCG #### [facility] [address] [place], [place] 6[address]83 Converter Supervisor: Reji Brown MD BUN/CRE Ratio 19 Normal 9-20 [facility] Comment on above: Performed By: #### C MPX, CDP, LIP, HCG #### [facility] [address] [place], [place] [id number] Converter Supervisor: Reji Brown MD Calcium [Mass/Vol] 9.7 mg/dL Normal 8.6-10.4 [facility] Comment on above: Performed By: #### C MPX, CDP, LIP, HCG #### [facility] [address] [place], [place] 0559[address] Converter Supervisor: Reji Brown MD Chloride [Moles/Vol] 102 mmol/L Normal 98-107 [facility] Comment on above: Performed By: #### C MPX, CDP, LIP, HCG #### [facility] [address] [place], [place] [id number] Converter Supervisor: Reji Brown MD CO2 [Moles/Vol] 31 mmol/L Normal 20-31 [facility] Comment on above: Performed By: #### C MPX, CDP, LIP, HCG #### [facility] [address] [place], [place] 3537783 Converter Supervisor: Reji Brown MD Creatinine [Mass/Vol] 0.79 mg/dL Normal 0.50-0.90 [facility] Comment on above: Performed By: #### C MPX, CDP, LIP, HCG #### [facility] [address] [place], [place] [id number] Converter Supervisor: Reji Brown MD GFR, Amer >60 Normal >60 [facility] Comment on above: Performed By: #### C MPX, CDP, LIP, HCG #### [facility] [address] [place], [place] 754[address]83 Converter Supervisor: Reji Brown MD GFR,non Amer >60 Normal >60 [facility] Comment on above: Performed By: #### C MPX, CDP, LIP, HCG #### [facility] [address] [place], [place] [id number] Converter Supervisor: Reji Brown MD Glucose [Mass/Vol] 102 mg/dL High 70-99 [facility] Comment on above: Performed By: #### C MPX, CDP, LIP, HCG #### [facility] [address] [place], [place] 835[address]83 Converter Supervisor: Reji Brown MD Potassium [Moles/Vol] 4.5 mmol/L Normal 3.7-5.3 [facility] Comment on above: Performed By: #### C MPX, CDP, LIP, HCG #### [facility] [address] [place], [place] [id number] Converter Supervisor: Reji Brown MD Protein [Mass/Vol] 6.7 g/dL Normal 6.4-8.3 [facility] Comment on above: Performed By: #### C MPX, CDP, LIP, HCG #### [facility] [address] [place], [place] 1249183 Converter Supervisor: Reji Brown MD Sodium [Moles/Vol] 142 mmol/L Normal 135-144 [facility] Comment on above: Performed By: #### C MPX, CDP, LIP, HCG #### [facility] [address] [place] [address] Converter Supervisor: Reji Brown MD Staging: Normal [facility] Comment on above: Result Comment: Stag e 1: Some kidney damage normal GFR Stage 2: Mild kidney damage GFR 60-89 Stage 3: Moderate kidney damage GFR 30-59 Stage 4: Severe kidney damage GFR 15-29 Stage 5: Severe kidney damage GFR <15 ESRD - chronic treatment by dialysis or transplant Performed By: #### C MPX, CDP, LIP, HCG #### [facility] [address] [place] [address] Converter Supervisor: Reji Brown MD Urea nitrogen [Mass/Vol] 15 mg/dL Normal 6-20 [facility] Comment on above: Performed By: #### C MPX, CDP, LIP, HCG #### [facility] [address] [place] [address] Converter Supervisor: Reji Brown MD HCG Screen, Bloodon 05-08-20 19 HCG Qn Negative Normal NEG [facility] Comment on above: Result Comment: Spec imens with hCG levels near the threshold of the test (25 mIU/mL) may give a negative or indeterminate result. In such cases, another test should be performed with a new specimen in 48-72 hours. If early is suspected clinically in this setting, correlation with quantitative serum b-hCG level is suggested. [facility] [employer] has confirmed the use of plasma for this test. This has not been cleared or approved by the U.[place]. Food and Drug Administration. The FDA has determined that such clearance is not necessary. Performed By: #### C MPX, CDP, LIP, HCG #### [facility] [address] [place] [address] Converter Supervisor: Reji Brown MD Lipaseon 05-08-2019 Lipase [Catalytic activity/Vol] 13 U/L Normal 13-60 [facility] Comment on above: Performed By: #### C MPX, CDP, LIP, HCG #### [facility] [address] [place], [place] [address]65[address]83 Converter Supervisor: Reji Brown MD Urinalysis, Routineon 2018 Acetoacetic Acid,Ur Negative Normal [facility] Comment on above: Performed By: #### U MICAO, UA #### [facility] [address] [place], [place] [id number] Converter Supervisor: Reji Brown MD Bilirubin, SemiQt,Ur Negative Normal NEG [facility] Comment on above: Performed By: #### U MICAO, UA #### [facility] [address] [place], [place] 2615383 Converter Supervisor: Reji Brown MD Color (U) YELLOW Normal YEL [facility] Comment on above: Performed By: #### U MICAO, UA #### [facility] [address] [place], [place] [address]83 Converter Supervisor: Reji Brown MD Glucose Ql (U) Negative Normal [facility] Comment on above: Performed By: #### U MICAO, UA #### [facility] [address] [place], [place] 2653583 Converter Supervisor: Reji Brown MD Hemoglobin, Ur Negative Normal NEG [facility] Comment on above: Performed By: #### U MICAO, UA #### [facility] [address] [place], [place] [address]86[address]83 Converter Supervisor: Reji Brown MD Leukocyte esterase Test strip Ql (U) Negative Normal [facility] Comment on above: Performed By: #### U MICAO, UA #### [facility] [address] [place], [place] [id number] Converter Supervisor: Reji Brown MD Nitrite,Ur Negative Normal [facility] Comment on above: Performed By: #### U MICAO, UA #### [facility] [address] [place], [place] 5633483 Converter Supervisor: Reji Brown MD pH (U) 7.5 [pH] Normal 5.0-9.0 [facility] Comment on above: Performed By: #### U MICAO, UA #### [facility] [address] [place], [place] 3392883 Converter Supervisor: Reji Brown MD Protein Ql (U) Negative Normal NEG [facility] Comment on above: Performed By: #### U MICAO, UA #### [facility] [address] [place], [place] 9052183 Converter Supervisor: Reji Brown MD Specific gravity (U) [Rel density] 1.015 Normal 1.010-1.020 [facility] Comment on above: Performed By: #### U MICAO, UA #### [facility] [address] [place], [place] [address]497[address] Converter Supervisor: Reji Brown MD Turbidity CLOUDY Abnormal CLEAR [facility] Comment on above: Performed By: #### U MICAO, UA #### [facility] [address] [place], [place] 1428083 Converter Supervisor: Reji Brown MD Urobilinogen,Ur Normal Normal NORM [facility] Comment on above: Performed By: #### U MICAO, UA #### [facility] [address] [place], [place] 1883983 Converter Supervisor: Reji Brown MD Comment NOT REPORTED Normal [facility] Comment on above: Performed By: #### U MICAO, UA #### [facility] [address] [place], [place] 7216683 Converter Supervisor: Reji Brown MD Urinalysis,Microon 9 ----- Normal [facility] Comment on above: Performed By: #### U MICAO, UA #### [facility] [address] [place], [place] [address]86[address]83 Converter Supervisor: Reji Brown MD Amorphous sediment LM Ql (Urine sed) 4+ Abnormal [facility] Comment on above: Performed By: #### U MICAO, UA #### [facility] [address] [place], [place] 52[address]83 Converter Supervisor: Reji Brown MD Epithelial cells LM.HPF (Urine sed) [#/Area] 5 TO 10 Normal 0-25 [facility] Comment on above: Performed By: #### U MICAO, UA #### [address] [place], [place] 6832383 Converter Supervisor: Reji Brown MD RBC (U) [#/Vol] None Normal 0-2 [facility] Comment on above: Performed By: #### U MICAO, UA #### [address] [place], [place] 6687783 Converter Supervisor: Reji Brown MD WBC (U) [#/Vol] None Normal 0-5 [facility] Comment on above: Performed By: #### U MICAO, UA #### [address] [place], [place] [id number] Converter Supervisor: Reji Brown MD Bacteria LM.HPF (Urine sed) [#/Area] NOT REPORTED Normal [facility] Comment on above: Performed By: #### U MICAO, UA #### [address] [place], [place] 836[address]83 Converter Supervisor: Reji Brown MD Casts LM.LPF (Urine sed) [#/Area] NOT REPORTED Normal [facility] Comment on above: Performed By: #### U MICAO, UA #### [address] [place], [place] 787[address]83 Converter Supervisor: Reji Brown MD Crystals LM Nom (Urine sed) NOT REPORTED Normal [facility] Comment on above: Performed By: #### U MICAO, UA #### [facility] [address] [place], [facility] Converter Supervisor: Reji Brown MD Epithelial, Renal NOT REPORTED Normal 0 [facility] Comment on above: Performed By: #### U MICAO, UA #### [facility] [address] [place] [id number] Converter Supervisor: Reji Brown MD Mucus Strands NOT REPORTED Normal NONE [facility] Comment on above: Performed By: #### U MICAO, UA #### [facility] [address] [place] [address] Converter Supervisor: Reji Brown MD Other Observations NOT REPORTED Normal NREQ [facility] Comment on above: Performed By: #### U MICAO, UA #### [facility] [address] [place] [id number] Converter Supervisor: Reji Brown MD Trichomonas NOT REPORTED Normal NONE [facility] Comment on above: Performed By: #### U MICAO, UA #### [facility] [address] [place] [id number] Converter Supervisor: Reji Brown MD Yeast LM Ql (Urine sed) NOT REPORTED Normal [facility] Comment on above: Performed By: #### U MICAO, UA #### [facility] [address] [place] [id number] Converter Supervisor: Reji Brown MD XR ACUTE ABD SERIES [...] Final result Normal [facility] Vital Signs Date Time Vital Sign Value Performing Clinician Facility 10-21-2023 07:30-0500 Body temperature 97.4 [degF] COMPUTER SCIENCE PROFESSOR Cris Robronaldo Work Phone: [facility] 10-21-2023 07:30-0500 Diastolic blood pressure 67 mm[Hg] COMPUTER SCIENCE PROFESSOR Cris Robuck Work Phone: [facility] 10-21-2023 07:30-0500 Heart rate 81 /min COMPUTER SCIENCE PROFESSOR Cris Robuck Work Phone: [facility] 10-21-2023 07:30-0500 SaO2% (BldA) [Mass fraction] 99 % COMPUTER SCIENCE PROFESSOR Cris Robuck Work Phone: [facility] 10-21-2023 07:30-0500 Systolic blood pressure 102 mm[Hg] COMPUTER SCIENCE PROFESSOR Cris Robuck Work Phone: [facility] 10-20-2023 21:59-0500 Respiratory rate 16 /min COMPUTER SCIENCE PROFESSOR Cris Robuck Work Phone: [facility] 10-19-2023 09:00-0500 Body weight 69 kg COMPUTER SCIENCE PROFESSOR Cris Robuck Work Phone: [facility] 10-16-2023 08:34-0500 Body height 167.64 cm COMPUTER SCIENCE PROFESSOR Cris Robuck Work Phone: [facility] 10-09-2023 01:00-0500 Diastolic blood pressure 58 mm[Hg] [facility] 10-09-2023 01:00-0500 Heart rate 68 /min [facility] 10-09-2023 01:00-0500 Respiratory rate 16 /min [facility] 10-09-2023 01:00-0500 SaO2% (BldA) [Mass fraction] 93 % [facility] 10-09-2023 01:00-0500 Systolic blood pressure 102 mm[Hg] [facility] 10-08-2023 20:56-0500 Body height 167.64 cm [facility] 10-08-2023 20:56-0500 Body temperature 98.6 [degF] [facility] 10-08-2023 20:56-0500 Body weight 70 kg [facility] 09-14-2023 18:27-0500 Body height 167.64 cm COMPUTER SCIENCE PROFESSOR Cris Robuck Work Phone: [facility] 09-14-2023 18:27-0500 Body temperature 98.1 [degF] COMPUTER SCIENCE PROFESSOR Cris Robuck Work Phone: [facility] 09-14-2023 18:27-0500 Body weight 73 kg COMPUTER SCIENCE PROFESSOR Cris Robuck Work Phone: [facility] 09-14-2023 18:27-0500 Diastolic blood pressure 80 mm[Hg] COMPUTER SCIENCE PROFESSOR Cris Robuck Work Phone: [facility] 09-14-2023 18:27-0500 Heart rate 97 /min COMPUTER SCIENCE PROFESSOR Cris Robuck Work Phone: [facility] 09-14-2023 18:27-0500 Respiratory rate 16 /min COMPUTER SCIENCE PROFESSOR Cris Robuck Work Phone: [facility] 09-14-2023 18:27-0500 SaO2% (BldA) [Mass fraction] 98 % COMPUTER SCIENCE PROFESSOR Cris Robuck Work Phone: [facility] 09-14-2023 18:27-0500 Systolic blood pressure 128 mm[Hg] COMPUTER SCIENCE PROFESSOR Cris Robuck Work Phone: [facility] 07-13-2023 09:00-0400 Body weight 79.28 kg [facility] 07-13-2023 07:30-0400 Body temperature 98.4 [degF] [facility] 07-13-2023 07:30-0400 Diastolic blood pressure 72 mm[Hg] [facility] 07-13-2023 07:30-0400 Heart rate 98 /min [facility] 07-13-2023 07:30-0400 Respiratory rate 20 /min [facility] 07-13-2023 07:30-0400 SaO2% (BldA) [Mass fraction] 95 % [facility] 07-13-2023 07:30-0400 Systolic blood pressure 105 mm[Hg] [facility] 07-08-2023 14:36-0400 Body height 165.1 cm [facility] 06-08-2023 08:18-0400 Body height 165.1 cm [facility] 06-08-2023 08:18-0400 Body temperature 97.7 [degF] [facility] 06-08-2023 08:18-0400 Body weight 67.58 kg [facility] 06-08-2023 08:18-0400 Diastolic blood pressure 55 mm[Hg] [facility] 06-08-2023 08:18-0400 Heart rate 68 /min [facility] 06-08-2023 08:18-0400 Respiratory rate 18 /min [facility] 06-08-2023 08:18-0400 SaO2% (BldA) [Mass fraction] 98 % [facility] 06-08-2023 08:18-0400 Systolic blood pressure 120 mm[Hg] [facility] 04-19-2023 19:09-0400 Body height 165.1 cm COMPUTER SCIENCE PROFESSOR Cris Solisuck Work Phone: [facility] 04-19-2023 19:09-0400 Body temperature 97.6 [degF] COMPUTER SCIENCE PROFESSOR Cris Robuck Work Phone: [facility] 04-19-2023 19:09-0400 Body weight 66.55 kg COMPUTER SCIENCE PROFESSOR Cris Robuck Work Phone: [facility] 04-19-2023 19:09-0400 Diastolic blood pressure 97 mm[Hg] COMPUTER SCIENCE PROFESSOR Cris Robuck Work Phone: [facility] 04-19-2023 19:09-0400 Heart rate 83 /min COMPUTER SCIENCE PROFESSOR Cris Robuck Work Phone: [facility] 04-19-2023 19:09-0400 Respiratory rate 18 /min COMPUTER SCIENCE PROFESSOR Cris Robuck Work Phone: [facility] 04-19-2023 19:09-0400 SaO2% (BldA) [Mass fraction] 100 % COMPUTER SCIENCE PROFESSOR Cris Robuck Work Phone: [facility] 04-19-2023 19:09-0400 Systolic blood pressure 124 mm[Hg] COMPUTER SCIENCE PROFESSOR Cris Robuck Work Phone: [facility] 04-18-2023 22:55-0400 Diastolic blood pressure 88 mm[Hg] COMPUTER SCIENCE PROFESSOR Cris Robuck Work Phone: [facility] 04-18-2023 22:55-0400 Heart rate 98 /min COMPUTER SCIENCE PROFESSOR Cris Robuck Work Phone: [facility] 04-18-2023 22:55-0400 Respiratory rate 16 /min COMPUTER SCIENCE PROFESSOR Cris Robuck Work Phone: [facility] 04-18-2023 22:55-0400 SaO2% (BldA) [Mass fraction] 98 % COMPUTER SCIENCE PROFESSOR Cris Robuck Work Phone: [facility] 04-18-2023 22:55-0400 Systolic blood pressure 136 mm[Hg] COMPUTER SCIENCE PROFESSOR Cris Robuck Work Phone: [facility] 04-18-2023 21:13-0400 Body height 165.1 cm COMPUTER SCIENCE PROFESSOR Cris Robuck Work Phone: [facility] 04-18-2023 21:13-0400 Body temperature 98 [degF] COMPUTER SCIENCE PROFESSOR Cris Pena Work Phone: [facility] 04-18-2023 21:13-0400 Body weight 66.45 kg RUIZ Pena Work Phone: [facility] 04-16-2023 14:57-0400 Body weight 65.77 kg Caitlin Cheatham COMPUTER SCIENCE PROFESSOR.DRAW MACHINE OPERATOR Work Phone: [facility] 04-16-2023 14:57-0400 Diastolic blood pressure 79 mm[Hg] Caitlin Muha COMPUTER SCIENCE PROFESSOR.DRAW MACHINE OPERATOR Work Phone: [facility] 04-16-2023 14:57-0400 Heart rate 108 /min Caitlin Cheatham COMPUTER SCIENCE PROFESSOR.DRAW MACHINE OPERATOR Work Phone: [facility] 04-16-2023 14:57-0400 Systolic blood pressure 133 mm[Hg] Caitlin Franksha COMPUTER SCIENCE PROFESSOR.DRAW MACHINE OPERATOR Work Phone: [facility] 03-16-2023 08:40-0400 Body height 167.9 cm Caitlin Cheatham COMPUTER SCIENCE PROFESSOR.DRAW MACHINE OPERATOR Work Phone: [facility] 03-16-2023 08:40-0400 Body temperature 98.1 [degF] Caitlin Franksha COMPUTER SCIENCE PROFESSOR.DRAW MACHINE OPERATOR Work Phone: [facility] 03-16-2023 08:40-0400 Body weight 69.85 kg Caitlin Cheatham COMPUTER SCIENCE PROFESSOR.DRAW MACHINE OPERATOR Work Phone: [facility] 03-16-2023 08:40-0400 Diastolic blood pressure 74 mm[Hg] Caitlin Muha COMPUTER SCIENCE PROFESSOR.DRAW MACHINE OPERATOR Work Phone: [facility] 03-16-2023 08:40-0400 Heart rate 88 /min Caitlin Cheatham COMPUTER SCIENCE PROFESSOR.DRAW MACHINE OPERATOR Work Phone: [facility] 03-16-2023 08:40-0400 SaO2% (BldA) [Mass fraction] 98 % Caitlin Cheatham COMPUTER SCIENCE PROFESSOR.DRAW MACHINE OPERATOR Work Phone: [facility] 03-16-2023 08:40-0400 Systolic blood pressure 120 mm[Hg] Caitlin Cheatham COMPUTER SCIENCE PROFESSOR.DRAW MACHINE OPERATOR Work Phone: [facility] 02-24-2023 12:15-0400 Body height 170.18 cm COMPUTER SCIENCE PROFESSOR Cris Robuck Work Phone: [facility] 02-24-2023 12:15-0400 Body temperature 97.6 [degF] COMPUTER SCIENCE PROFESSOR Cris Robuck Work Phone: [facility] 02-24-2023 12:15-0400 Body weight 66.5 kg COMPUTER SCIENCE PROFESSOR Cris Robuck Work Phone: [facility] 02-24-2023 12:15-0400 Diastolic blood pressure 59 mm[Hg] COMPUTER SCIENCE PROFESSOR Cris Robuck Work Phone: [facility] 02-24-2023 12:15-0400 Heart rate 75 /min COMPUTER SCIENCE PROFESSOR Cris Robuck Work Phone: [facility] 02-24-2023 12:15-0400 Respiratory rate 20 /min COMPUTER SCIENCE PROFESSOR Cris Robuck Work Phone: [facility] 02-24-2023 12:15-0400 SaO2% (BldA) [Mass fraction] 100 % COMPUTER SCIENCE PROFESSOR Cris Robuck Work Phone: [facility] 02-24-2023 12:15-0400 Systolic blood pressure 105 mm[Hg] COMPUTER SCIENCE PROFESSOR Cris Robuck Work Phone: [facility] 02-03-2023 19:12-0400 Diastolic blood pressure 64 mm[Hg] COMPUTER SCIENCE PROFESSOR Cris Robuck Work Phone: [facility] 02-03-2023 19:12-0400 Heart rate 84 /min COMPUTER SCIENCE PROFESSOR Cris Robuck Work Phone: [facility] 02-03-2023 19:12-0400 Respiratory rate 17 /min COMPUTER SCIENCE PROFESSOR Cris Robuck Work Phone: [facility] 02-03-2023 19:12-0400 SaO2% (BldA) [Mass fraction] 98 % COMPUTER SCIENCE PROFESSORApoorva Lynch Robuck Work Phone: [facility] 02-03-2023 19:12-0400 Systolic blood pressure 107 mm[Hg] COMPUTER SCIENCE PROFESSOR Cris Robuck Work Phone: [facility] 02-03-2023 11:00-0400 Body height 165.1 cm COMPUTER SCIENCE PROFESSORApoorva Lynch Robuck Work Phone: [facility] 02-03-2023 11:00-0400 Body weight 66.2 kg COMPUTER SCIENCE PROFESSORApoorva Lycnh Robuck Work Phone: [facility] 02-03-2023 10:59-0400 Body temperature 98.2 [degF] COMPUTER SCIENCE PROFESSORApoorva Lynch Robuck Work Phone: [facility] 01-26-2023 21:53-0400 Body height 167.64 cm DO Rachael Tupa Work Phone: [facility] 01-26-2023 21:53-0400 Body temperature 97.7 [degF] DO Rachael Tupa Work Phone: [facility] 01-26-2023 21:53-0400 Body weight 67.4 kg DO Rachael Tupa Work Phone: [facility] 01-26-2023 21:53-0400 Diastolic blood pressure 63 mm[Hg] DO Rachael Tupa Work Phone: [facility] 01-26-2023 21:53-0400 Heart rate 87 /min DO Rachael Tupa Work Phone: [facility] 01-26-2023 21:53-0400 Respiratory rate 20 /min DO Rachael Tupa Work Phone: [facility] 01-26-2023 21:53-0400 SaO2% (BldA) [Mass fraction] 97 % DO Rachael Tupa Work Phone: [facility] 01-26-2023 21:53-0400 Systolic blood pressure 116 mm[Hg] DO Rachael Tupa Work Phone: [facility] 01-16-2023 07:21-0400 Body temperature 97.4 [degF] DO Rachael Tupa Work Phone: [facility] 01-16-2023 07:21-0400 Diastolic blood pressure 61 mm[Hg] DO Rachael Tupa Work Phone: [facility] 01-16-2023 07:21-0400 Heart rate 79 /min DO Rachael Tupa Work Phone: [facility] 01-16-2023 07:21-0400 Respiratory rate 16 /min DO Rachael Tupa Work Phone: [facility] 01-16-2023 07:21-0400 SaO2% (BldA) [Mass fraction] 98 % DO Rachael Tupa Work Phone: [facility] 01-16-2023 07:21-0400 Systolic blood pressure 105 mm[Hg] DO Rachael Tupa Work Phone: [facility] 01-13-2023 15:02-0400 Body height 165.1 cm DO Rachael Tupa Work Phone: [facility] 01-12-2023 15:41-0400 Body weight 60.9 kg DO Rachael Tupa Work Phone: [facility] 01-12-2023 11:28-0400 Diastolic blood pressure 72 mm[Hg] DO Rachael Tupa Work Phone: [facility] 01-12-2023 11:28-0400 Heart rate 106 /min DO Rachael Tupa Work Phone: [facility] 01-12-2023 11:28-0400 Respiratory rate 18 /min DO Rachael Tupa Work Phone: [facility] 01-12-2023 11:28-0400 SaO2% (BldA) [Mass fraction] 98 % DO Rachael Tupa Work Phone: [facility] 01-12-2023 11:28-0400 Systolic blood pressure 119 mm[Hg] DO Rachael Tupa Work Phone: [facility] 01-12-2023 07:59-0400 Body height 165.1 cm DO Rachael Tupa Work Phone: [facility] 01-12-2023 07:59-0400 Body weight 60.9 kg DO Rachael Tupa Work Phone: [facility] 01-12-2023 07:58-0400 Body temperature 97.3 [degF] DO Rachael Tupa Work Phone: [facility] 11-20-2022 18:18-0500 Diastolic blood pressure 112 mm[Hg] DO Rachael Tupa Work Phone: [facility] 11-20-2022 18:18-0500 Heart rate 125 /min DO Rachael Tupa Work Phone: [facility] 11-20-2022 18:18-0500 Respiratory rate 17 /min DO Rachael Tupa Work Phone: [facility] 11-20-2022 18:18-0500 SaO2% (BldA) [Mass fraction] 96 % DO Rachael Tupa Work Phone: [facility] 11-20-2022 18:18-0500 Systolic blood pressure 160 mm[Hg] DO Rachael Tupa Work Phone: [facility] 11-20-2022 16:10-0500 Body height 167.64 cm DO Rachael Tupa Work Phone: [facility] 11-20-2022 16:10-0500 Body temperature 98.5 [degF] DO Rachael Tupa Work Phone: [facility] 11-20-2022 16:10-0500 Body weight 69 kg DO Rachael Tupa Work Phone: [facility] 11-20-2022 02:58-0500 Body height 167.64 cm DO Rachael Tupa Work Phone: [facility] 11-20-2022 02:58-0500 Body temperature 98.3 [degF] DO Rachael Tupa Work Phone: [facility] 11-20-2022 02:58-0500 Body weight 69.5 kg DO Rachael Tupa Work Phone: [facility] 11-20-2022 02:58-0500 Diastolic blood pressure 96 mm[Hg] DO Rachael Tupa Work Phone: [facility] 11-20-2022 02:58-0500 Heart rate 96 /min DO Rachael Tupa Work Phone: [facility] 11-20-2022 02:58-0500 Respiratory rate 18 /min DO Rachael Tupa Work Phone: [facility] 11-20-2022 02:58-0500 SaO2% (BldA) [Mass fraction] 98 % DO Rachael Tupa Work Phone: [facility] 11-20-2022 02:58-0500 Systolic blood pressure 169 mm[Hg] DO Rachael Tupa Work Phone: [facility] 11-10-2022 01:55-0500 Diastolic blood pressure 80 mm[Hg] Christian Chucky [facility] 11-10-2022 01:55-0500 Heart rate 71 /min Christian Chucky [facility] 11-10-2022 01:55-0500 Mean blood pressure 92 mm[Hg] Christian Locke [facility] 11-10-2022 01:55-0500 Respiratory rate 14 /min Christian Chucky [facility] 11-10-2022 01:55-0500 SaO2% (BldA) [Mass fraction] 96 % Christian Chucky [facility] 11-10-2022 01:55-0500 Systolic blood pressure 116 mm[Hg] Christian Chucky [facility] 11-10-2022 01:08-0500 Heart rate 72 /min Christian Chucky [facility] 11-10-2022 01:08-0500 SaO2% (BldA) [Mass fraction] 94 % Christian Chucky [facility] 11-09-2022 21:52-0500 Diastolic blood pressure 95 mm[Hg] Christian Chucky [facility] 11-09-2022 21:52-0500 Heart rate 96 /min Christian Chucky [facility] 11-09-2022 21:52-0500 Respiratory rate 18 /min Christian Chucky [facility] 11-09-2022 21:52-0500 SaO2% (BldA) [Mass fraction] 99 % Christian Chucky [facility] 11-09-2022 21:52-0500 Systolic blood pressure 122 mm[Hg] Christian Chucky [facility] 11-09-2022 20:52-0500 Body temperature 98.78 [degF] Christian Chucky [facility] 11-09-2022 20:52-0500 Diastolic blood pressure 87 mm[Hg] Christian Chucky [facility] 11-09-2022 20:52-0500 Respiratory rate 18 /min Christian Chucky [facility] 11-09-2022 20:52-0500 Systolic blood pressure 145 mm[Hg] Christian Chucky [facility] 11-06-2022 14:38-0500 Blood Pressure Location Cris ROBUCK [facility] 11-06-2022 14:38-0500 Diastolic blood pressure 88 mm[Hg] Cris ROBUCK [facility] 11-06-2022 14:38-0500 Heart rate 96 /min Cris ROBUCK [facility] 11-06-2022 14:38-0500 SaO2% (BldA) [Mass fraction] 96 % Cris ROBUCK [facility] 11-06-2022 14:38-0500 Systolic blood pressure 132 mm[Hg] Cris ROBUCK [facility] 10-10-2022 12:46-0500 Blood Pressure Location Cris ROBUCK [facility] 10-10-2022 12:46-0500 Body temperature 98.06 [degF] Cris ROBUCK [facility] 10-10-2022 12:46-0500 Diastolic blood pressure 78 mm[Hg] Cris ROBUCK [facility] 10-10-2022 12:46-0500 Heart rate 89 /min Cris ROBUCK [facility] 10-10-2022 12:46-0500 SaO2% (BldA) [Mass fraction] 98 % Cris ROBUCK [facility] 10-10-2022 12:46-0500 Systolic blood pressure 130 mm[Hg] Cris PENA [facility] 10-02-2022 14:08-0500 Blood Pressure Location NANCY SIDELL [facility] 10-02-2022 14:08-0500 Body temperature 98.24 [degF] NANCY SIDELL [facility] 10-02-2022 14:08-0500 Diastolic blood pressure 78 mm[Hg] NANCY SIDELL [facility] 10-02-2022 14:08-0500 Heart rate 93 /min NANCY SIDELL [facility] 10-02-2022 14:08-0500 SaO2% (BldA) [Mass fraction] 98 % NANCY SIDELL [facility] 10-02-2022 14:08-0500 Systolic blood pressure 136 mm[Hg] NANCY SIDELL [facility] 08-08-2022 23:00-0400 Body height 167.64 cm DO Rachael Tupa Work Phone: [facility] 08-08-2022 23:00-0400 Body temperature 98.1 [degF] DO Rachael Tupa Work Phone: [facility] 08-08-2022 23:00-0400 Body weight 68.55 kg DO Rachael Tupa Work Phone: [facility] 08-08-2022 23:00-0400 Diastolic blood pressure 71 mm[Hg] DO Rachael Tupa Work Phone: [facility] 08-08-2022 23:00-0400 Heart rate 87 /min DO Rachael Tupa Work Phone: [facility] 08-08-2022 23:00-0400 Respiratory rate 20 /min DO Rachael Reyes Work Phone: [facility] 08-08-2022 23:00-0400 SaO2% (BldA) [Mass fraction] 95 % DO Rachael Reyes Work Phone: [facility] 08-08-2022 23:00-0400 Systolic blood pressure 118 mm[Hg] DO Rachael Reyes Work Phone: [facility] 04-25-2022 00:00-0400 Blood Pressure Location Luis Armando Gastelume [facility] 04-25-2022 00:00-0400 Diastolic blood pressure 58 mm[Hg] Luis Armando Osei [facility] 04-25-2022 00:00-0400 Heart rate 82 /min Luis Armando Osei [facility] 04-25-2022 00:00-0400 Mean blood pressure 71 mm[Hg] Luis Armando Osei [facility] 04-25-2022 00:00-0400 SaO2% (BldA) [Mass fraction] 98 % Luis Armando Osei [facility] 04-25-2022 00:00-0400 Systolic blood pressure 97 mm[Hg] Luis Armando Osei [facility] 04-24-2022 18:53-0400 Diastolic blood pressure 87 mm[Hg] Luis Armando Osei [facility] 04-24-2022 18:53-0400 Heart rate 99 /min Luis Armando Osei [facility] 04-24-2022 18:53-0400 Mean blood pressure 102 mm[Hg] Luis Armando Osei [facility] 04-24-2022 18:53-0400 Respiratory rate 18 /min Luis Armando Osei [facility] 04-24-2022 18:53-0400 SaO2% (BldA) [Mass fraction] 96 % Luis Armando Franz [facility] 04-24-2022 18:53-0400 Systolic blood pressure 132 mm[Hg] Luis Armando Franz [facility] 04-24-2022 13:05-0400 Body temperature 98.78 [degF] Luis Armando Franz [facility] 04-24-2022 13:05-0400 Diastolic blood pressure 97 mm[Hg] Luis Armando Franz [facility] 04-24-2022 13:05-0400 Heart rate 118 /min Luis Armando Franz [facility] 04-24-2022 13:05-0400 SaO2% (BldA) [Mass fraction] 96 % Luis Armando Franz [facility] 04-24-2022 13:05-0400 Systolic blood pressure 163 mm[Hg] Luis Armando Franz [facility] 07-31-2020 07:48-0400 Body Temperature 98.01 [degF] [facility] [place] 07-31-2020 07:48-0400 BP Diastolic 67 mm[Hg] [facility] [place] 07-31-2020 07:48-0400 BP Systolic 108 mm[Hg] [facility] [place] 07-31-2020 07:48-0400 Pulse (Heart Rate) 82 /min [facility] [place] 07-31-2020 07:48-0400 Respiratory Rate 14 /min [facility] [place] 07-29-2020 08:04-0400 Pulse Oximetry 100 % [facility] [place] 07-18-2020 02:42-0400 BMI (Body Mass Index) 24.96 kg/m2 [facility] [place] 07-18-2020 02:42-0400 Body weight 68.04 kg [facility] KARMEN 07-18-2020 [id number] Height 165.1 [facility] [place] [facility] Encounters Encounter Date Encounter Type Care Provider Facility Start: 12-02-2023 ambulatory Cris PENA Facility :[facility] Start: 11-24-2023 End: 11-25-2023 ambulatory Cris E MAGALIE Facility:[facility] Start: 10-27-2023 ambulatory Cris E MAGALIE Facility :[facility] Start: 10-23-2023 End: 10-28-2023 ambulatory Christian Locke Facility:CD:[id number] Start: 10-09-2023 End: 10-21-2023 Evaluation and management of inpatient Bobobambi Shields Facility:[facility] Start: 10-09-2023 End: 10-21-2023 Evaluation and management of inpatient [facility] Work Phone: Start: 10-02-2023 End: 10-02-2023 Emergency department patient visit Cris Pena Facility:[facility] Start: 10-02-2023 End: 10-02-2023 Emergency department patient visit [facility] Work Phone: Start: 09-14-2023 End: 09-15-2023 Emergency department patient visit Cris Pena Facility:[facility] Start: 09-14-2023 End: 09-14-2023 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 Work Phone: [facility] Work Phone: Start: 09-10-2023 End: 09-10-2023 Emergency department patient visit Derrell Orantes [place] [place] Start: 09-10-2023 ambulatory Claudio Castaneda acility:[facility] Start: 09-09-2023 End: 09-09-2023 Emergency department patient visit Cris Pena Facility:[facility] Start: 09-09-2023 End: 09-09-2023 Emergency department patient visit [facility] Work Phone: Start: 08-27-2023 ambulatory Akbar Koch MD Work Phone: Spine Medicine Comment on above: Refill Request; Refi ll Request Start: 08-27-2023 E-mail encounter fro m caregiver Akbar Koch MD Work Phone: [facility] Start: 08-27-2023 Telephone encounter Akbar bassett MD Work Phone: Spine Medicine Comment on above: Appointment Start: 08-19-2023 ambulatory Cris PENA Facility :[facility] Start: 08-15-2023 End: 08-15-2023 Emergency department patient visit [facility] Facility[place] [place] Start: 08-14-2023 End: 08-14-2023 Emergency department patient visit [facility] Facility[place] [place] Start: 08-13-2023 End: 08-13-2023 Emergency department patient visit Derrell Orantes Facility[place] [place] Start: 08-07-2023 End: 08-07-2023 Emergency department patient visit DO Norma Dietz Facility[place] [place] Start: 08-04-2023 ambulatory Cris PENA Facility :[facility] Start: 07-17-2023 Refill Akbar Koch MD Work Phone: Pain Management Comment on above: Refill Request Start: 07-07-2023 Telephone encounter Lara Salinas RN [facility] Start: 07-07-2023 End: 07-08-2023 ambulatory Jacqueline Marquez Facility:[facility] Start: 07-03-2023 End: 07-13-2023 Evaluation and management of inpatient Bobo Cornelius Facility:[facility] Start: 07-02-2023 End: 07-13-2023 Evaluation and management of inpatient [facility] Work Phone: Start: 07-02-2023 Registered Recurring RUIZ Pena Work Phone: [facility] Start: 07-01-2023 End: 07-02-2023 ambulatory Zahraa Connors Facility:[facility] Start: 06-17-2023 Telephone encounter Akbar bassett MD Work Phone: Pain Management Comment on above: Medication Problem Start: 06-09-2023 Refill Chuck Galindo MD Work Phone: [facility] [place] Comment on above: Refill Request Start: 06-08-2023 End: 06-08-2023 Emergency department patient visit Luis Armando Hendrix Facility:[facility] Start: 06-08-2023 End: 06-08-2023 Emergency department patient visit [facility] Work Phone: Start: 06-06-2023 End: 06-06-2023 [facility] Start: 05-22-2023 Refill Caitlin Cheatham APRN.DRAW MACHINE OPERATOR Work Phone: [facility] [place] Comment on above: Refill Request Start: 05-14-2023 Telephone encounter Rosa KleinNursing Agency Manager) Madeline russo LPN [facility] [place] Comment on above: Patient Update Start: 05-14-2023 End: 05-14-2023 ambulatory CAITLIN MUHEYDI Facility:[facility] Start: 04-24-2023 Telephone encounter Caitlin Cheatham APRN.DRAW MACHINE OPERATOR Work Phone: [facility] [place] Comment on above: Medication Request Start: 04-22-2023 Telephone encounter Fernanda ENCARNACION Work Phone: Psychology Comment on above: BH consult Start: 04-19-2023 End: 04-19-2023 Emergency department patient visit Eriberto Sheppard Facility:[facility] Start: 04-19-2023 End: 04-19-2023 Emergency department patient visit COMPUTER SCIENCE PROFESSORAporova Pena Work Phone: [facility] Work Phone: Start: 04-18-2023 End: 04-19-2023 Emergency department patient visit NON STAFF Facility:[facility] Start: 04-18-2023 End: 04-18-2023 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 Work Phone: [facility] Work Phone: Start: 04-16-2023 End: 04-16-2023 Nurse Triage Verónica Martínez RN NURSE CORPORATION SECRETARY Comment on above: Refill Request Thank you Attention deficit hy peractivity disorder (ADHD), unspecified ADHD type (Primary Dx); Paranoid schizophrenia (HCC); Bipolar depression (HCC); History of heroin abuse (HCC) Start: 04-13-2023 End: 04-13-2023 ambulatory Chuck Galindo MD Work Phone: [facility] [place] Comment on above: Anxiety (Primary Dx) Start: 04-13-2023 End: 04-13-2023 Telemedicine consultation with patient Chuck Galindo MD Work Phone: [facility] Start: 04-02-2023 End: 04-03-2023 ambulatory NANCY RODRIGUEZ Facility:[facility] Start: 03-16-2023 End: 03-16-2023 ambulatory CAITLIN CHEATHAM Facility:[facility] Start: 03-16-2023 End: 03-16-2023 Patient encounter procedure Caitlin Cheatham APRN.DRAW MACHINE OPERATOR Work Phone: [facility] Comment on above: Wellness examination (Primary Dx); Screening for diabetes mellitus; Screening for lipid disorders; Screening for cervical cancer; History of abnormal cervical Pap smear; History of heroin abuse (HCC); Attention deficit hyperactivity disorder (ADHD), unspecified ADHD type; Bipolar depression (HCC); Paranoid schizophrenia (HCC); Chronic midline low back pain without sciatica Start: 03-16-2023 End: 03-16-2023 Patient encounter status Caitlin Cheatham APRN.DRAW MACHINE OPERATOR Work Phone: [facility] Start: 03-08-2023 End: 03-08-2023 Emergency department patient visit Heather Valenzuela [place] [place] Start: 02-24-2023 End: 02-24-2023 Emergency department patient visit Cris Pena Facility:[facility] Start: 02-24-2023 End: 02-24-2023 Emergency department patient visit RUIZ Pena Work Phone: [facility] Work Phone: Start: 02-05-2023 ambulatory Cris PENA Facility :[facility] Start: 02-03-2023 End: 02-03-2023 Emergency department patient visit Cris Pena Facility:[facility] Start: 02-03-2023 End: 02-03-2023 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 Work Phone: [facility] Work Phone: Start: 01-26-2023 End: 01-27-2023 Emergency department patient visit Farhad Landon Facility:[facility] Start: 01-26-2023 End: 01-26-2023 Emergency department patient visit DO Rachael Reyes Work Phone: [facility] Work Phone: Start: 01-19-2023 End: 02-06-2023 ambulatory Christian Locke Facility:CD:[id number] Start: 01-12-2023 End: 01-16-2023 Evaluation and management of inpatient Bobo Shields Facility:[facility] Start: 01-12-2023 End: 01-16-2023 Evaluation and management of inpatient DO Rachael Reyes Work Phone: [facility] Work Phone: Start: 01-12-2023 End: 01-12-2023 Emergency department patient visit DO Norma Dietz [place] [place] Start: 01-12-2023 End: 01-12-[address] DOCTOR PATEL Facility:[facility] Start: 01-08-2023 End: 01-08-2023 Emergency department patient visit Derrell Orantes [place] [place] Start: 01-08-2023 End: 01-08-[address] DOCTOR PATEL Facility:[facility] Start: 01-07-2023 ambulatory Cris PENA Facility :[facility] Start: 12-15-2022 End: 12-16-[address] DOCTOR PATEL Facility:[facility] Start: 12-04-2022 ambulatory Cris PENA Facility :[facility] Start: 12-02-2022 End: 12-03-2022 ambulatory Cris PENA Facility:[facility] Start: 11-20-2022 End: 11-20-2022 Emergency department patient visit Nito Walton Facility:[facility] Start: 11-20-2022 End: 11-20-2022 Emergency department patient visit DO Rachael Reyes Work Phone: [facility] Work Phone: Start: 11-20-2022 End: 11-20-2022 Emergency department patient visit Cris Pena Facility:[facility] Start: 11-20-2022 End: 11-20-2022 Emergency department patient visit DO Rachael Reyes Work Phone: [facility] Work Phone: Start: 11-09-2022 End: 11-10-2022 Emergency department patient visit Christian Chucky [facility] Start: 11-06-2022 End: 11-06-2022 Patient encounter procedure Cris E MAGALIE [facility] Start: 10-10-2022 End: 10-10-2022 Patient encounter procedure Cris E ROBRONALDO [facility] Start: 10-02-2022 End: 10-02-2022 Patient encounter procedure NANCY RODRIGUEZ [facility] Start: 08-08-2022 End: 08-09-2022 Emergency department patient visit DO Rachael Reyes Work Phone: [facility] Start: 06-22-2022 End: 06-23-[address] STACI HENDRIX Facility:[facility] Start: 06-16-2022 End: 06-17-[address] STACI HENDRIX Facility:[facility] Start: 04-24-2022 End: 04-25-2022 Emergency department patient visit Luis Armando Franz [facility] Start: 04-11-2022 End: 04-12-[address] SULTANA DOOLEY Facility:[facility] Start: 02-05-2021 End: 02-11-2021 Evaluation and management of inpatient BRET THORPE [facility] Start: 07-27-2020 Telephone encounter Adam chaudhary Work Phone: [facility] [employer] Comment on above: Results (abnormal pa p needs colposcopy appt) Start: 07-26-2020 Telephone encounter Jaylyn richards Work Phone: [facility] [employer] Comment on above: Other (scheduled col poscopy appointment ) Start: 07-18-2020 Patient encounter procedure [facility] [place] Start: 07-18-2020 End: 07-31-2020 Evaluation and management of inpatient JOSE MOSES [facility] Start: 07-17-2020 Patient encounter procedure [facility] Admitting Start: 05-14-2019 End: 05-14-2019 Emergency department patient visit [facility] Start: 05-08-2019 Emergency department patient visit [facility] Procedures Date Procedure Procedure Detail Performing Clinician Start: 10-16-2023 Aerobic microbial culture COMPUTER SCIENCE PROFESSOR Cris Robuck Work Phone: Start: 10-16-2023 Investigation of transfusion reaction COMPUTER SCIENCE PROFESSOR Cris Robuck Work Phone: Start: 10-15-2023 Plain chest X-ray COMPUTER SCIENCE PROFESSOR Cris Robuck Work Phone: Start: 10-08-2023 Urine culture COMPUTER SCIENCE PROFESSOR [place] Robuck Work Phone: Start: 06-08-2023 Urine culture Start: 02-03-2023 Urine culture COMPUTER SCIENCE PROFESSOR [place] Rob[place] Work Phone: Start: 01-12-2023 Urine culture DO Desmond Reyes Work Phone: Start: 07-31-2020 DISCHARGE PATIENT JOSE MOSES Start: 07-24-2020 Iadna human papillom avirus types 16 & 18 only JOSE MOSES Start: 07-24-2020 Cytp cervical/vagina l req interp physician JOSE JORGE Start: 07-24-2020 Cytp cervical/vagina l req interp physician Jaylyn Russo Rocio Work Phone: Start: 07-24-2020 Iadna jose ramon specie s direct probe tq JOSE MOSES Start: 07-24-2020 Cytopath fl nongyn, sm/fltr JOSE MOSES Start: 07-24-2020 Iadna jose ramon specie s direct probe tq Jaylyn Russo Rocio Work Phone: Start: 07-23-2020 NURSING COMMUNICATION E STELLA MOSES Start: 07-23-2020 Us transvaginal JOSE RO DANICAON Start: 07-23-2020 Urine test visual color cmprsn [...] Work Phone: Start: 07-23-2020 IP CONSULT TO PARK KEEPER ER IC MOSES Start: 07-22-2020 IP CONSULT TO HAT BODY INSPECTOR AL MEDICINE JOSE JORGE Start: 07-21-2020 Drug assay valproic dipropylacetic acid total JOSE MOSES Start: 07-21-2020 Drug assay valproic dipropylacetic acid total Janina Edmondson Work Phone: Start: 07-21-2020 T. PALLIDUM AB Janina noel Work Phone: Start: 07-20-2020 C.TRACHOMATIS N.GONO RRHOEAE DNA, URINE JOSE MOSES Start: 07-20-2020 Ecg routine ecg w/le ast 12 lds w/i&r JOSE MOSES Start: 07-20-2020 EKG REPORT JOSE WALLACE Start: 07-20-2020 Iadna chlamydia trac homatis amplified probe tq Janina Edmondson Work Phone: Start: 07-20-2020 Ecg routine ecg w/le ast 12 lds i&r only Janina Edmondson Work Phone: Start: 07-20-2020 EKG REPORT Hpf Scanni ng Start: 07-20-2020 Blood count complete auto&auto difrntl wbc JOSE MOSES Start: 07-20-2020 Assay of thyroid stimulating hormone tsh Bretdavon Mendezkristi Work Phone: Start: 07-20-2020 Blood count complete auto&auto difrntl wbc Bret Mendezapoorvanavid Work Phone: Start: 07-20-2020 Comprehensive metabo lic panel Bret Mendezapoorvanavid Work Phone: Start: 07-20-2020 Antibody hiv-1&hiv-2 single result JOSE MOSES Start: 07-20-2020 Antibody hiv-1&hiv-2 single result Con S Teagan Work Phone: Start: 07-20-2020 Hepatitis c antibody Ra nvir S Teagan Work Phone: Start: 07-19-2020 IP CONSULT TO HAT BODY INSPECTOR AL MEDICINE JOSE MOSES Start: 07-18-2020 IP CONSULT TO HISTOR Y AND PHYSICAL JOSE MOSES Start: 07-18-2020 MISCELLANEOUS NURSIN G CARE ORDER (SPECIFY) JOSE MOSES Start: 07-18-2020 PATIENT MONITORING C LOSE Q 15 MINUTES JOSE MOSES Start: 07-18-2020 VITAL SIGNS JOSE BRITT SON Start: 07-18-2020 DIET GENERAL JOSE WALLACE Start: 07-18-2020 FULL CODE JOSE WALLACE Start: [...] teeth extraction Luis Armando catherine denies Luis Armanod Franz SARS Antigen (LFIA) DO Kavitha Reyes Work Phone: Plan of Treatment Date Care Activity Detail Author Start: 07-22-2028 DTaP/Tdap/Td vaccine (3 - Td) DTaP/Tdap/Td vaccine (3 - Td) [place] Start: 07-22-2028 Urine microalbumin profile [facility] Start: 04-16-2024 ANNUAL PCP TEAM BATCH PLANT SUPERVISOR BENNY DISEASE VISIT ANNUAL PCP TEAM CHRONIC DISEASE VISIT [facility] Start: 04-13-2024 ANNUAL PCP TEAM BATCH PLANT SUPERVISOR BENNY DISEASE VISIT ANNUAL PCP TEAM CHRONIC DISEASE VISIT [facility] Start: 03-16-2024 ANNUAL PCP TEAM BATCH PLANT SUPERVISOR BENNY DISEASE VISIT ANNUAL PCP TEAM CHRONIC DISEASE VISIT [facility] Start: 10-21-2023 [facility] Start: 10-09-2023 [facility] Start: 10-09-2023 Hospital admission [facility] Start: 10-09-2023 [facility] Start: 10-08-2023 Bacteria identified in Urine by Culture [facility] Start: 09-14-2023 [facility] Start: 07-24-2023 Screening for malign ant neoplasm of cervix Cervical cancer screen [place] Start: 07-13-2023 [facility] Start: 07-02-2023 Hospital admission [facility] Start: 06-12-2023 Influenza vaccination [facility] Start: 06-08-2023 Bacteria identified in Urine by Culture Urine Culture [facility] Start: 03-16-2023 End: 05-16-2023 Comprehensive metabolic 2000 panel - Serum or Plasma COMP METABOLIC PANEL Lab Routine Screening for diabetes mellitus Expected: 03/16/2023, Expires: 05/16/2023 [facility] Work Phone: Comment on above: Expected: 03/16/2023 , Expires: 05/16/2023 Start: 03-16-2023 End: 05-16-2023 Hemoglobin A1c in Blood HGB A1C Lab Routine Screening for diabetes mellitus Expected: 03/16/2023, Expires: 05/16/2023 [facility] Work Phone: Comment on above: Expected: 03/16/2023 , Expires: 05/16/2023 Start: 03-16-2023 End: 05-16-2023 Lipid 1996 panel - Serum or Plasma LIPID PANEL BASIC Lab Routine Screening for lipid disorders Expected: 03/16/2023, Expires: 05/16/2023 [facility] Work Phone: Comment on above: Expected: 03/16/2023 , Expires: 05/16/2023 Start: 01-16-2023 [facility] Start: 01-12-2023 Bacteria identified in Urine by Culture Urine Culture [facility] Start: 01-12-2023 Hospital admission [facility] Start: 11-20-2022 [facility] Start: 08-08-2022 Plain chest X-ray XR chest 2V* [facility] Start: 08-08-2022 XR Chest 2 Views [facility] Start: 06-12-2020 Influenza [facility] [place] Start: 07-15-2019 HEPATITIS A (2 of 2 - Risk 2-dose series) HEPATITIS A (2 of 2 - Risk 2-dose series) [facility] Start: 07-15-2019 Hepatitis A Vaccine (2 of 2 - Risk 2-dose series) Hepatitis A Vaccine (2 of 2 - Risk 2-dose series) [facility] Start: 2015 HPV TESTING HPV TESTING [facility] Start: 12-26-2014 PNEUMOCOCCAL (2 - PCV) PNEUMOCOCCAL (2 - PCV) [facility] Start: 03-17-2015 Pneumococcal vaccination Pneum ococcal Vaccine (2 - PCV) [facility] Start: 2006 PAP TESTING PAP TESTING [facility] Start: 2003 SPIROMETRY SPIROMETRY [facility] Start: 07-07-1997 HEPATITIS B (2 of 3 - 3-dose series) HEPATITIS B (2 of 3 - 3-dose series) [facility] Start: 07-07-1997 Hepatitis B vaccine (2 of 3 - 3-dose primary series) Hepatitis B vaccine (2 of 3 - 3-dose primary series) [place] Start: 07-07-1997 Hepatitis B Vaccine (2 of 3 - 3-dose series) Hepatitis B Vaccine (2 of 3 - 3-dose series) [facility] Start: 1991 Pneumococcal 0-64 ye ars Vaccine (1 of 1 - PPSV23) Pneumococcal 0-64 years Vaccine (1 of 1 - PPSV23) [place] Start: 1986 Varicella vaccine (1 of 2 - 2-dose childhood series) Varicella vaccine (1 of 2 - 2-dose childhood series) [place] Start: 1985 COVID-19 VACCINE (#1) COVID-19 VACCI NE (#1) [facility] Albumin/Globulin ratio [facility] Anion gap measurement [facility] Basophils [#/volume] in Blood by Automated count [facility] Basophils/100 leukoc ytes in Blood by Automated count [facility] Calculated LDL cholesterol level [facility] Calculated LDL cholesterol level [facility] Cholesterol.total/Ch oles terol in HDL [Mass Ratio] in Serum or Plasma [facility] Cholesterol.total/Ch oles terol in HDL [Mass Ratio] in Serum or Plasma [facility] Eosinophils [#/volum e] in Blood [facility] Eosinophils/100 leukocytes in Blood by Automated count [facility] Erythrocyte distribu tion width [Ratio] by Automated count [facility] Erythrocytes [#/volu me] in Blood [facility] Ethanol [Mass/volume ] in Serum or Plasma [facility] Globulin [Mass/volum e] in Serum [facility] Hematocrit [Volume Fraction] of Blood [facility] Hemoglobin [Mass/vol ume] in Blood [facility] Leukocytes [#/volume ] corrected for nucleated erythrocytes in Blood by Automated coun [facility] Leukocytes [#/volume ] in Blood [facility] Lymphocytes [#/volum e] in Blood by Automated count [facility] Lymphocytes/100 leukocytes in Blood by Automated count [facility] MCH [Entitic mass] b y Automated count [facility] MCHC [Mass/volume] b y Automated count [facility] MCV [Entitic volume] by Automated count [facility] Monocytes [#/volume] in Blood by Automated count [facility] Monocytes/100 leukoc ytes in Blood by Automated count [facility] Neutrophils [#/volum e] in Blood by Automated count [facility] Neutrophils/100 leukocytes in Blood by Automated count [facility] Nucleated erythrocyt es [Presence] in Blood by Automated count [facility] Patient Education [facility] Work Phone: Patient referral [facility] Work Phone: Platelet mean volume [Entitic volume] in Blood by Automated count [facility] Platelets [#/volume] in Blood [facility] VLDL cholesterol measurement [facility] VLDL cholesterol measurement [facility] Immunizations Immunization Date Immunization Notes Care Provider [facility] 11-08-2019 Influenza, injectabl e, Madin Marcy Canine Kidney, preservative free, quadrivalent DO Rachael Reyes Work Phone: [facility] 11-08-2019 influenza virus vacc ine, unspecified formulation Caitlin Cheatham APRN.DRAW MACHINE OPERATOR Work Phone: [facility] 01-13-2019 hepatitis A vaccine, adult dosage Caitlin Cheatham APRN.DRAW MACHINE OPERATOR Work Phone: [facility] Work Phone: 07-22-2018 tetanus toxoid, redu juan alberto diphtheria toxoid, and acellular pertussis vaccine, adsorbed Luis Armando Franz [facility] Comment on above: Reason for Medicatio n: Other (see comment) 09-26-2016 influenza, injectabl e, quadrivalent, preservative free Caitlin Cheatham APRN.DRAW MACHINE OPERATOR Work Phone: [facility] Work Phone: 09-26-2016 RHO(D) immune globul in- IV or IM Caitlin Cheatham APRN.DRAW MACHINE OPERATOR Work Phone: [facility] Work Phone: 09-26-2016 tetanus toxoid, redu juan alberto diphtheria toxoid, and acellular pertussis vaccine, adsorbed Caitlin Cheatham APRN.DRAW MACHINE OPERATOR Work Phone: [facility] Work Phone: 12-26-2013 influenza, seasonal, injectable Luis Armando Franz [facility] 12-26-2013 pneumococcal polysaccharide vaccine, 23 valent Luis Armando Franz [facility] 07-26-2012 tetanus toxoid, redu juan alberto diphtheria toxoid, and acellular pertussis vaccine, adsorbed Luis Armando Franz [facility] Comment on above: Reason for Medicatio n: Other (see comment) 10-18-2011 pneumococcal polysaccharide vaccine, 23 valent Luis Armando Franz [facility] Comment on above: Early/Late Reason: A ccommodate D/C 10-18-2011 influenza, seasonal, injectable Luis Armando Franz [facility] Comment on above: Early/Late Reason: A ccommodate D/C 2010 novel influenza-H1N1 -09, preservative-free, injectable Caitlin Cheatham APRN.DRAW MACHINE OPERATOR Work Phone: [facility] Work Phone: 06-09-1997 hepatitis B vaccine, pediatric or pediatric/adolescent dosage Caitlin Cheatham APRN.DRAW MACHINE OPERATOR Work Phone: [facility] Work Phone: 06-09-1997 measles, mumps and rubella virus vaccine Caitlin Franksheydi COMPUTER SCIENCE PROFESSOR.DRAW MACHINE OPERATOR Work Phone: [facility] Work Phone: 06-09-1997 hepatitis B vaccine, unspecified formulation Caitlin Cheatham COMPUTER SCIENCE PROFESSOR.DRAW MACHINE OPERATOR Work Phone: [facility] Payers Date Payer Category Payer Self-pay [id number] 2022 Medicaid [place] [employer] [place] [employer] [id number] 2022-Present [phone] [address] [place] [address] Medicaid [id number] 1985 Unknown [id number] 2.16.840.1.220897.3.579.2.173 1985 Unknown [id number] 2.16.840.1.563756.3.579.2.173 1985 Unknown [id number] 2.16.840.1.625418.3.579.2.176 1985 Unknown [id number] 2.16.840.1.987814.3.579.2.176 1985 Unknown [id number] 2.16.840.1.200007.3.579.2.593 1985 Unknown [id number] 2.16.840.1.211623.3.579.2.593 1985 Unknown [id number] 2.16.840.1.789377.3.579.2.593 1985 Unknown [id number] 2.16.840.1.644234.3.579.2.593 1985 Unknown [id number] 2.16.840.1.411943.3.579.2.593 1985 Unknown [id number] 2.16.840.1.223424.3.579.2.593 1985 Unknown [id number] 2.16.840.1.491032.3.579.2.902 1985 Unknown [id number] 2.16.840.1.151772.3.579.2727 1985 Unknown [id number] 2.16.840.1.116918.3.579.272 1985 Unknown [id number] 2.16.840.1.533189.3.579.272 1985 Unknown [id number] 2.16.840.1.376739.3.579.272 1985 Unknown [id number] 2.16.840.1.905957.3.579.272 1985 Unknown [id number] 2.16840.1.888813.3.579.2 1985 Unknown [id number] 2.16.840.1.519468.3.579.272 1985 Unknown [id number] 2.16840.1.248462.3.579.2 1985 Unknown [id number] 2.16.840.1.145099.3.579.272 1985 Unknown [id number] 2.16840.1.973146.3.579.272 1985 Unknown [id number] 2.16.840.1.679498.3.579.272 1985 Unknown [id number] 2.16.840.1.500528.3.579.272 1985 Unknown [id number] 2.16.840.1.489391.3.579.272 1985 Unknown [id number] 2.16.840.1.833832.3.579.272 1985 Unknown [id number] 2.16.840.1.940866.3.579.2.727 1985 Unknown [id number] 2.16.840.1.150690.3.579.2.727 1985 Unknown [id number] 2.16.840.1.174075.3.579.2.727 1985 Unknown [id number] 2.16.840.1.059069.3.579.2.727 1985 Unknown [id number] 2.16.840.1.387728.3.579.2.727 1985 Unknown [id number] 2.16.840.1.459013.3.579.2.727 1959 Unknown [id number] Unknown [id number] 2.16.840.1.842872.3.579.2.531 Unknown [id number] 2.16.840.1.708090.3.579.2.531 Unknown [id number] 2.16.840.1.912652.3.579.2.531 Unknown [id number] 2.16.840.1.633979.3.579.2.531 Unknown [id number] 2.16.840.1.530330.3.579.2.531 Unknown [id number] 2.16.840.1.342851.3.579.2.531 Unknown [id number] 2.16.840.1.891831.3.579.2.531 Unknown [id number] 2.16.840.1.973390.3.579.2.531 Unknown [id number] 2.16.840.1.472117.3.579.2.531 Unknown [id number] 2.16.840.1.103380.3.579.2.531 Unknown [id number] 2.16.840.1.870488.3.579.2.531 Unknown [id number] 2.16.840.1.935953.3.579.2.531 Unknown [id number] 2.16.840.1.325395.3.579.2.531 Unknown [id number] 2.16.840.1.464443.3.579.2.531 Unknown [id number] 2.16.840.1.678371.3.579.2.531 Social History Date Type Detail Facility Start: 07-23-2020 End: 03-16-2023 Tobacco smoking status NHIS Current every day smoker [facility] History of tobacco use Cigarette Smoker M [place], [place] Start: 07-23-2020 End: 03-16-2023 Cigarettes smoked current (pack per day) - Reported [facility] Work Phone: Start: 07-23-2020 Tobacco use and exposure Never used [place], [place] Start: 07-23-2020 End: 04-24-2023 Alcohol intake Current non-drinker of alcohol (finding) [place] Start: 06-15-2015 Alcohol Comment unsure [place], [place] Start: 1985 Sex Assigned At Not on file M [place], [place] Exposure to SARS-CoV -2 (event) Not sure [place] Start: 11-01-2021 End: 10-10-2022 Tobacco smoking status Light tobacco smoker (finding) [facility] Start: 08-08-2022 End: 10-15-2023 Tobacco smoking status Smoker (finding) [facility] Tobacco smoking status Never [facility] Start: 03-16-2023 End: 04-16-2023 Sex Assigned At Female [facility] Start: 1985 Sex Assigned At Female F [facility] Tobacco [facility] Comment on above: denies Tobacco smoking status No Smokin g Status Entered [facility] Goals Date Patient Goal Desired Activity /State Functional Status Date Assessment Result Facility 10-21-2023 Functional status [facility] Work Phone: 07-13-2023 Functional status Patient at [facility] Work Phone: 01-16-2023 Functional status Patient at [facility] Work Phone: 11-09-2022 Functional Status N/A [facility] 11-06-2022 Functional Status N/A [facility] 10-10-2022 Functional Status N/A [facility] 10-02-2022 Functional Status N/A [facility] 04-24-2022 Functional Status N/A [facility] Mental Status Date Assessment Result Facility 10-21-2023 Cognitive function Cognitive Sta tus Patient at Baseline [facility] Work Phone: 07-13-2023 Cognitive function Cognitive Sta tus Patient at Baseline [facility] Work Phone: 01-16-2023 Cognitive function Cognitive Sta tus Patient at Baseline [facility] Work Phone: Clinical Notes 04-24-2022 to 10-25-2023 Note Date & Type Note Facility 10-25-2023 Note [id number] #[id number] [facility] 10-21-2023 Discharge summary Note Date/Time October 21, 2023 11:45am [facility] [address] [place] [address] Discharge Summary Signed Patient: Lorna Deutsch MR#: [id number] : 1985 Acct:[id number] Age/Sex: 38 / F Adm Date: 3 Loc: Room: [address] [place] [address]: Bobo Shields MD Copies to: MD Cris Murcia APRN, DRAW MACHINE OPERATOR~ Providers Date of Discharge: 10/21/23 Discharging Provider: [...] No activity restrictions Instructions: Bipolar Disorder (DC), [facility] [place] Instructions Prescriptions: New ergocalciferol [...] BY MOUTH TWICE A DAY -START ON 638264 dextroamphetamine-amphetamine 20 mg tablet 20 mg PO DAILY Patient Comments: TAKE ONE TABLET BY MOUTH TWICE A DAY -START ON quetiapine 150 mg tablet 150 mg PO HS Patient Comments: TAKE ONE TABLET BY MOUTH ONCE DAILY AT BEDTIME Follow Up: [facility] [Other] (Follow facility protocol for mental health needs. ) Cris Pena APRN, LINE TENDER FLAKEBOARD-C [Primary Care Provider] - (Contact your PCP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 Galindo [...] minutes Chuck Galindo MD documented in this encounterSamaritan North Health Center06-05-2023 History of Past illness Narrative* Problem Noted Date Resolved Date ADHD 03/16/2023 03/16/2023 documented as of this encounter (statuses as of 03/16/2023) [facility] of Past illness Narrative* Problem Noted Date Resolved Date ADHD 03/16/2023 03/16/2023 documented as of this encounter (statuses as of 04/14/2023) [facility] of Past illness Narrative* Problem Noted Date Resolved Date ADHD 03/16/2023 03/16/2023 documented as of this encounter (statuses as of 04/17/2023) [facility] of Past illness Narrative* Problem Noted Date Resolved Date ADHD 03/16/2023 03/16/2023 documented as of this encounter (statuses as of 04/17/2023) [facility] of Past illness Narrative* Problem Noted Date Diagnosed Date Resolved Date ADHD 03/16/2023 03/16/2023 documented as of this encounter (statuses as of 04/18/2023) [facility] of Past illness Narrative* Problem Noted Date Diagnosed Date Resolved Date ADHD 03/16/2023 03/16/2023 documented as of this encounter (statuses as of 04/22/2023) [facility] of Past illness Narrative* Problem Noted Date Diagnosed Date Resolved Date ADHD 03/16/2023 03/16/2023 documented as of this encounter (statuses as of 04/28/2023) [facility] of Past illness Narrative* Problem Noted Date Diagnosed Date Resolved Date ADHD 03/16/2023 03/16/2023 documented as of this encounter (statuses as of 05/15/2023) [facility] of [facility] illness Narrative* Problem Noted Date Diagnosed Date Resolved Date ADHD 03/16/2023 03/16/2023 documented as of this encounter (statuses as of 06/10/2023) [facility] of [facility] Narrative* Problem Noted Date Diagnosed Date Resolved Date ADHD 03/16/2023 03/16/2023 documented as of this encounter (statuses as of 06/18/2023) [facility] illness Narrative* Problem Noted Date Diagnosed Date Resolved Date ADHD 03/16/2023 03/16/2023 documented as of this encounter (statuses as of 07/02/2023) [facility] of Past illness Narrative* Problem Noted Date Diagnosed Date Resolved Date ADHD 03/16/2023 03/16/2023 documented as of this encounter (statuses as of 07/08/2023) [facility] illness Narrative* Problem Noted Date Diagnosed Date Resolved Date ADHD 03/16/2023 03/16/2023 documented as of this encounter (statuses as of 07/18/2023) [facility] of [facility] illness Narrative* Problem Noted Date Diagnosed Date Resolved Date ADHD 03/16/2023 03/16/2023 documented as of this encounter (statuses as of 08/27/2023) [facility] of [facility] illness Narrative* Problem Noted Date Diagnosed Date Resolved Date ADHD 03/16/2023 03/16/2023 documented as of this encounter (statuses as of 08/27/2023) [facility] of Past illness Narrative* Problem Noted Date Diagnosed Date Resolved Date ADHD 03/16/2023 03/16/2023 documented as of this encounter (statuses as of 08/29/2023) [facility] NoteHNO ID: [id number] Author: Caitlin Cheatham APRN.DRAW MACHINE OPERATOR Service: ? Author Type: Nurse Practitioner Type: Progress Notes Filed: 04/23/2023 3:54 PM Note Text: SUBJECTIVE: Chief Complaint: oLrna Deutsch is a 38 year old female [...] (Z12.4) Screening for cervical cancer `CONSULT TO CRIMINAL JUDGE 5. (Z87.42) History of abnormal cervical Pap smear `CONSULT TO CRIMINAL JUDGE 6. (F11.11) History of heroin abuse (HCC) [...] annual visit, sooner as needed. Caitlin Cheatham APRN.[facility] [place]06-05-2023 Instructions* Patient Instructions* Caitlin Cheatham APRN.[facility] - 03/16/2023 8:57 AM EDT SMOKING [...] desirable brand of cigarettes. 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 Use matches. Carry your cigarettes in a [...] quit by (insert month/year) [facility] History of Present illness Narrative* Caitlin Cheatham [...] (Z12.4) Screening for cervical cancer `CONSULT TO CRIMINAL JUDGE 5. (Z87.42) History of abnormal cervical Pap smear `CONSULT TO CRIMINAL JUDGE 6. (F11.11) History of heroin abuse (HCC) [...] annual visit, sooner as needed. Caitlin Cheatham APRN.DRAW MACHINE OPERATOR documented in this encounter[facility]04-[facility]-2023 Progress note Author Bobo Shields [facility] January 15, 2023 12:20pm Note Date/Time January 15, 2023 12:2 0pm [facility] [address] [place] [address] Psychiatry Progress Note Signed Patient: Lorna Deutsch MR#: [id number] : 1985 Acct:[id number] Age/Sex: 38 / F Adm Date: 3 Loc: Room: [address] [place] [address] Type : ADM IN Attending Dr: Bobo [...] signed by Bobo Shields MD> 01/15/23 1220 [facility] Work Phone: 1(871) 440-122504-05-2023 Progress note Author Bobo Shields [facility] January 14, 2023 12:21pm Note Date/Time January 14, 2023 12:2 1pm [facility] [address] [place] [address] Psychiatry Progress Note Signed Patient: Lorna Deutsch MR#: [id number] : 1985 Acct:[id number] Age/Sex: 38 / F Adm Date: 3 Loc: Room: [address] [place] [address] Type : ADM IN Attending Dr: Bobo [...] signed by Bobo Shields MD> 01/14/23 1221 [facility] Work Phone: 1(974) 761-452204-04-2023 Progress note Author Bobo Shields [facility] January 13, 2023 2:21pm Note Date/Time January 13, 2023 12:1 9pm [facility] [address] [place] [address] Psychiatry Progress Note Signed Patient: Lorna Deutsch MR#: [id number] : 1985 Acct:[id number] Age/Sex: 38 / F Adm Date: 3 Loc: Room: [address] [place] [address] Type : ADM IN Attending Dr: Bobo [...] signed by Bobo Shields MD> 01/13/23 1421 [facility] Work Phone: 1(330) 928-978704-03-2023 History and physical note Author Bobo Shields [facility] January 12, 2023 3:37pm Note Date/Time January 12, 2023 3:33 pm [facility] [address] [place] [address] Psychiatry H&P Signed Patient: Lorna Deutsch MR#: [id number] : 1985 Acct:[id number] Age/Sex: 38 / F Adm Date: 3 Loc: Room: [address] [place] [address] Type: ADM IN Attending Dr: Bobo Shields MD Copies to: MD Cris Murcia APRN, DRAW MACHINE OPERATOR~ Date of Service: 01/12/2023 [facility] History of Present Illness History of present [...] A Urine pH 6.0 Ur Specific [place] 1.020 Urine Protein Negative Urine Glucose (UA) [...] signed by Bobo Shields MD> 01/12/23 1537 [facility] Work Phone: 1(137) 432-972301-06-2023 Hospital Discharge instructions Follow Up Care 10/17/2022 14:45:23 With:Cris PENA CNP Address: [address] [place] [address]- When:Within 3 Month(s) [facility] 12-30-2022 Hospital Discharge instructions Follow Up Care 10/10/2022 09:47:38 With:Cris PENA CNP Address: [address] [place] [address]- When: only if needed [facility] 12-22-2022 Hospital Discharge instructions Patient Education 10/02/2022 [...] frozen fruits, and frozen vegetables. Avoid buying hnlng-ve-crg foods, such as pre-cut fruits and vegetables and pre-made salads. If possible, shop around to discover where you can find the best prices. Consider other retailers such as [employer] stores, larger wholesale stores, local fruit and vegetable [employer], and [employer] markets. Do not shop when you are [...] 06/01/2015 Document Revised: 09/29/2018 Document Reviewed: 09/29/2018 Food and Beverage Patient Education 2020 [employer]. 10/02/2022 17:55:09 Tobacco Use Disorder Tobacco Use [...] reduces withdrawal symptoms. NRT is available as: ?Gzjn-zhb-zuvqnhw gums, lozenges, and skin patches. ?Prescription mouth [...] recovery for many people. General instructions Take sgez-ssk-hyeywzu and prescription medicines only as told by your health care provider. Check with your health care provider before taking any new prescription or fcpz-cxt-aadobcc medicines. Decide on a friend, family member, or smoking quit-line (such as 5-730-VNQN-NOW in the [place] that you can call [...] 06/03/2005 Document Revised: 09/15/2018 Document Reviewed: 09/15/2018 Food and Beverage Patient Education 2020 [employer]. 10/02/2022 17:55:05 Attention Deficit Hyperactivity Disorder, Adult [...] primary care provider or a mental health critical care specialist. Your health care provider may use a [...] Behavioral management. You may work with a population health coach who is specially trained to help people with ADHD manage and organize activities and function more effectively. Follow these instructions at home: Medicines Take okca-vqd-evxanef and prescription medicines only as told by [...] Attention Deficit Disorder Association (ADDA): www.add.org National [place] of Mental Health (NIMH): www.nimh.nih.gov Contact a [...] 05/20/2018 Document Revised: 02/20/2020 Document Reviewed: 02/20/2020 Food and Beverage Patient Education 2020 [employer]. 10/02/2022 17:55:03 Neuropathic Pain Neuropathic Pain Neuropathic [...] this treated? Treatment for neuropathic pain may roving changer time. You may need to try different treatment options or a combination of treatments. Some options include: Treating the underlying cause of the neuropathy, such as diabetes, kidney disease, or vitamin deficiencies. Stopping medicines that can cause neuropathy, such as chemotherapy. Medicine to relieve pain. Medicines may include: ?Prescription or yqor-pnk-jqzsxeo pain medicine. ?Anti-seizure medicine. ?Antidepressant medicines. ?Pain-relieving [...] Follow these instructions at home: Medicines Take hysf-kmz-urdfbvd and prescription medicines only as told by [...] as fried or sweet foods. ?Take an toeo-hzf-gailnvt or prescription medicine for constipation. Lifestyle Have [...] 06/25/2005 Document Revised: 01/19/2020 Document Reviewed: 10/15/2018 Food and Beverage Patient Education 2019 [employer]. Follow Up Care 09/29/2022 11:32:44 With:NANCY RODRIGUEZ CNP Address: [address] [place] [address] When: Unknown [facility] 07-15-2022 Hospital Discharge instructions Patient Education 04/25/2022 [...] computer, cell phone, or tablet. Medicines Take whky-hsb-gvtktft and prescription medicines only as told by [...] be a hospital support group, a National [place] on Mental Illness (BERNARDO) support group, or [...] information about treatment services in your area: (0-912-LFVHOH2) U.S. Department of Health and Human Services mental health services: www.mentalhealth.gov National [place] on Mental Illness ([place]): www.bernardo.org National [place] on Alcoholism and Drug Dependence: www.ncadd.org Contact [...] 02/12/2018 Document Revised: 11/24/2019 Document Reviewed: 02/12/2018 Food and Beverage Patient Education 2020 [employer]. 04/25/2022 02:56:28 Managing Schizophrenia Managing Schizophrenia If [...] eating. Follow these instructions at home: Take jrmo-qvr-auttupi and prescription medicines only as told by [...] be able to find financial assistance through eqk-fvi-jacfnx organizations or with local government-based resources. If [...] schizophrenia. Where to find more information National [place] on Mental Illness: www.bernardo.org Contact a health [...] 01/28/2018 Document Revised: 01/20/2020 Document Reviewed: 01/28/2018 Food and Beverage Patient Education 2020 [employer]. Follow Up Care 04/24/2022 12:58:04 With:[facility] Address:Unknown When: Unknown Comments:Call the office today to arrange further detox options. With:NANCY RODRIGUEZ Address: [address] [place] [address] Business (1) When:Within 3 Day(s) [facility]07-14-2022 Evaluation + Plan noteExtracted from: Title:ED Note Author:Natalya GARCIA, Ricco Henry te:04/24/22 1. Substance abuse (F19.10: Other psychoactive [...] day(s), # 14 cap(s), Refills(s) 0, Pharmacy: [facility] #[id number], 165, cm, 04/24/22 13:10:00 EDT, Height/Length Dosing, 70.8, kg, 04/24/22 13:10:00 EDT, Weight Dosing lorazepam, 2 mg = 2 tab(s), Tab, Oral, Once, Stop date 04/24/22 14:20:00 EDT, STAT, Start date 04/24/22 14:20:00 EDT, 04/24/22 14:20:00 EDT Basic Metabolic Panel Creatine Kinase Drug Screen Urine ECG 12 Lead Adult eGFR Rapid [place] [place] Troponin 0 Hr. UA With Cult Reflex Urine Culture [facility] Future Appointments Appointment Date:04/02/2023 11:00:00 AM Scheduled Provider:NANCY RODRIGUEZ CNP Location:[facility] Appointment Type: Open Future Scheduled Tests Radiology* XR Knee Complete 4+ Views Left 10/02/22 * XR Elbow 3+ Views Left 10/02/22 * XR Spine Lumbosacral Minimum 4 Views 10/02/22 [facility] Evaluation + Plan note Future Appointments Appointment Date:02/05/2023 02:20:00 PM Scheduled Provider:Cris PENA CNP Location:[facility] Appointment Type: Open Appointment Date:04/02/2023 11:00:00 AM Scheduled Provider:NANCY RODRIGUEZ CNP Location:[facility] Appointment Type: Open Future Scheduled Tests Radiology* XR Knee Complete 4+ Views Left 10/02/22 * XR Elbow 3+ Views Left 10/02/22 * XR Spine Lumbosacral Minimum 4 Views 10/02/22 [facility] Evaluation noteNo assessment information available [facility] Work Phone: evaluation note* Diagnosis Onset Date Resolution Status Bipolar 1 disorder, depressed acute Hypokalemia acute Opioid use disorder acute Suicidal ideation acute UTI (urinary tract infection) acute [facility] Work Phone: Evaluation note* Diagnosis Wellness [...] pain without sciatica [facility] Anxiety- Primary Anxiety state, unspecified [facility] Diagnosis Attention deficit hyperactivity disorder [...] Date Resolution Status Bipolar disorder, unspecified acute [facility] Work Phone: Evaluation note* Diagnosis Myofascial pain syndrome Mylagia and myositis, unspecified [facility] Myofascial pain syndrome Mylagia and myositis, unspecified [facility] Diagnosis Onset Date Resolution Status Bipolar disorder, unspecified acute Bipolar disorder, now depressed acute Intentional overdose acute Methadone dependence acute [facility] Work Phone: Evaluation note* Diagnosis Onset Date Resolution Status Abscess of skin or subcutaneous tissue acute Bipolar 1 disorder, depressed acute Bipolar disorder, now depressed acute Intentional overdose acute Methadone dependence acute Sputum production acute Tobacco abuse acute Unspecified psychosis acute [facility] Work Phone: History and physical note Author Bobo Shields [facility] January 12, 2023 3:37pm Note Date/Time January 12, 2023 3:33 pm [facility] [address] [place] [address] Psychiatry H&P Signed Patient: Lorna Deutsch MR#: [id number] : 1985 Acct:[id number] Age/Sex: 38 / F Adm Date: 3 Loc: Room: [address] [place] [address] Type: ADM IN Attending Dr: Bobo Shields [...] A Urine pH 6.0 Ur Specific [place] 1.020 Urine Protein Negative Urine Glucose (UA) [...] signed by Bobo Shields MD> 01/12/23 1537 [facility] Work Phone: Hospital course Narrative No data available for this section [facility] No data available for this section [facility] Additional Instructions Follow-up with your primary care doctor Return to the ED if you develop worsening symptoms [facility] Work Phone: Hospital Discharge instructions Additional Instructions Regular diet No activity restrictionsC[facility] Clinic [facility] Work Phone: Hospital Discharge instructions Additional Instructions Important Contact Information You can call [facility] Inpatient Behavioral Health at [phone] any time day or night if you have emergent questions or question regarding discharge instructions. If at any time you are feeling an increase in your psychiatric symptoms, call your physician or behavioral healthcare provider. If any time you have thoughts of harming yourself or others contact one of the following: Call 8 (available 04/05) Crisis Text Line (available 04/05) text 4HOPE to [phone] [facility] Hope Line (available 8 a.m. 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 Expl anation ACP-Advance Directive ACP-Advance Directive 07/04/2014 2:14 PM ACP-Power of All Terrain Vehicle Racer Latest Code Status on File Code Status [...] infection) Chief Complaint Wants to talk to MAHSA LozanoP anxiety Missed meth clinic/needs meds Chief Complaint Wants to talk to Dr Ad montgomeryMHP anxiety Missed meth clinic/needs meds needs medication [...] sciatica Procedures CONSULT TO PAIN MGT OFFICE/OUTPATIENT [facility] 60-74 MINUTES Caitlin Cheatham APRN.DRAW MACHINE OPERATOR [address] [place] [address] Referral ID Status Reason Start Date Expiration Date Visits Requested Visits Authorized [id number] Authorized PCP Requested Referral 03/16/2023 03/15/2024 1 1 Specialty Diagnoses / Procedures Referred By Contac t Referred To Contact Diagnoses Attention deficit hyperactivity disorder (ADHD), unspecified ADHD type Bipolar depression (HCC) Paranoid schizophrenia (HCC) Procedures CONSULT TO PSYCHIATRY OFFICE/OUTPATIENT [facility] 60-74 MINUTES Caitlin Cheatham APRN.DRAW MACHINE OPERATOR [address] [place] [address] Referral ID Status Reason Start Date Expiration Date Visits Requested Visits Authorized [id number] Pending Review PCP Requested Referral 03/16/2023 03/15/2024 1 1 Specialty Diagnoses / Procedures Referred By Contac t Referred To Contact Diagnoses History of abnormal cervical Pap smear Procedures CONSULT TO CRIMINAL JUDGE OFFICE/OUTPATIENT [facility] 60-74 MINUTES Caitlin Cheatham APRN.DRAW MACHINE OPERATOR [address] [place] [address] Referral ID Status Reason Start Date Expiration Date Visits Requested Visits Authorized [id number] Authorized PCP Requested Referral Auto-Generate d Referral 03/16/2023 03/15/2024 1 1 Additional Source Comments INFORMATION SOURCE (unrecogn ized section and content) DATE CREATED AUTHOR 05/14/2019 [facility] DATE CREATED AUTHOR AUTHOR'S ORGANIZ ATION 02/11/2021 [facility] DATE CREATED AUTHOR AUTHOR'S ORGANIZ ATION 01/16/2023 [facility] DATE CREATED AUTHOR AUTHOR'S ORGANIZ ATION 05/17/2023 [facility] DATE CREATED AUTHOR AUTHOR'S ORGANIZ ATION 06/13/2023 [facility] DATE CREATED AUTHOR AUTHOR'S ORGANIZ ATION 09/01/2023 [facility] DATE CREATED AUTHOR AUTHOR'S ORGANIZ ATION 11/06/2023 [facility] DATE CREATED AUTHOR AUTHOR'S ORGANIZ ATION 11/30/2023 [facility] Team (unrecognized sect ion and content) Team Status: Active Member Role Status Dates Cris Pena APRN LINE TENDER FLAKEBOARD-C Primary Care Provider Active Team Status: Inactive Member Role Status Dates Rachael Reyes DO Emergency Provider Active Cris Pena APRN LINE TENDER FLAKEBOARD-C Primary Care Provider Active Team Status: Inactive Member Role Status Dates Cris Pena APRN LINE TENDER FLAKEBOARD-C Primary Care Provider Active Nito Walton DO Emergency Provider Active Team Status: Active Member Role Status Dates Cris Pena APRN LINE TENDER FLAKEBOARD-C Primary Care Provider Active Jose Moses DO Emergency Provider Active Bobo Shields MD Admit Provider, Attending Provider Active Team Status: Inactive Member Role Status Dates Rachael Reyes DO Emergency Provider Active Nancy Rodriguez , LINE TENDER FLAKEBOARD-C Primary Care Provider Active Team Status: Active Member Role Status Dates Nancy Rodriguez LINE TENDER FLAKEBOARD-C Primary Care Provider Active Team Status: Inactive Member Role Status Dates Cris Pena APRN LINE TENDER FLAKEBOARD-C Primary Care Provider Active Jose Moses DO Emergency Provider Active Bobo Shields MD Admit Provider, Attending Provider Active Team Status: Inactive Member Role Status Dates Cris Pena APRN LINE TENDER FLAKEBOARD-C Primary Care Provider Active Farhad Landon MD Emergency Provider Active Feed Manager Relationship Specialty Start Date End Date Caitlin Cheatham APRN.DRAW MACHINE OPERATOR [address] [place] [address] PCP - General Internal Medicine 03/16/23 Feed Manager Relationship Specialty Start Date End Date Randal coronelina, COMPUTER SCIENCE PROFESSOR.DRAW MACHINE OPERATOR [address] [place] [address] PCP - General Internal Medicine 03/16/23 Feed Manager Relationship Specialty Start Date End Date RandalCaitlin, COMPUTER SCIENCE PROFESSOR.DRAW MACHINE OPERATOR [address] [place] [address] PCP - General Internal Medicine 03/16/23 Feed Manager Relationship Specialty Start Date End Date , COMPUTER SCIENCE PROFESSOR.DRAW MACHINE OPERATOR [address] [place] [address] PCP - General Internal Medicine 03/16/23 Team Status: Active Member Role Status Dates NON STAFF Primary Care Provider Active Team Status: Inactive Member Role Status Dates Cris Pena APRN LINE TENDER FLAKEBOARD-C Primary Care Provider Active Leonard Salazar DO Emergency Provider Active Team Status: Inactive Member Role Status Dates Cris Pena APRN LINE TENDER FLAKEBOARD-C Primary Care Provider Active Rachael Reyes DO Emergency Provider Active Team Status: Inactive Member Role Status Dates NON STAFF Primary Care Provider Active Rachael Reyes DO Emergency Provider Active Team Status: Inactive Member Role Status Dates NON STAFF Primary Care Provider Active Eriberto Sheppard PA-C Emergency Provider Active Feed Manager Relationship Specialty Start Date End Date RandalCaitlin, COMPUTER SCIENCE PROFESSOR.DRAW MACHINE OPERATOR [address] [place] [address] PCP - General Internal Medicine 03/16/23 Feed Manager Relationship Specialty Start Date End Date RandalCaitlin, COMPUTER SCIENCE PROFESSOR.DRAW MACHINE OPERATOR [address] [place] [address] PCP - General Internal Medicine 03/16/23 Team Status: Inactive Member Role Status Dates NON STAFF Primary Care Provider Active Luis Armando Hendrix MD Emergency Provider Active Team Status: Inactive Member Role Status Dates NON STAFF Primary Care Provider Active Bobo Shields MD Admit Provider, Attending Provider Active Team Status: Active Member Role Status Dates Cris Pena COMPUTER SCIENCE PROFESSOR LINE TENDER FLAKEBOARD-C Primary Care Provider Active Claudio Dee MD Attending Provider Active Team Status: Active Member Role Status Dates Cris SolisRUIZ camp LINE TENDER FLAKEBOARD-C Primary Care Provider Active Chucky Dueñas Jr, MD Emergency Provider Active Bobo Shields MD Admit Provider, Attending Provider Active Team Status: Inactive Member Role Status Dates Cris Pena , COMPUTER SCIENCE PROFESSOR LINE TENDER FLAKEBOARD-C Primary Care Provider Active Chucky Dueñas Jr, [...] or prosecute any alcohol or drug abuse patient.[facility] CenterIn the event this information is protected by the Federal Confidentiality of Alcohol and Drug Abuse Patient Records regulations: The Federal rules restrict any use of the information to criminally investigate or prosecute any alcohol or drug abuse patient.[facility] CenterIn the event this information is protected by the Federal Confidentiality of Alcohol and Drug Abuse Patient Records regulations: The Federal rules restrict any use of the information to criminally investigate or prosecute any alcohol or drug abuse patient.[facility] CenterIn the event this information is protected by the Federal Confidentiality of Alcohol and Drug Abuse Patient Records regulations: The Federal rules restrict any use of the information to criminally investigate or prosecute any alcohol or drug abuse patient.[facility] CenterIn the event this information is protected by the Federal Confidentiality of Alcohol and Drug Abuse Patient Records regulations: The Federal rules restrict any use of the information to criminally investigate or prosecute any alcohol or drug abuse patient.[facility] CenterIn the event this information is protected by the Federal Confidentiality of Alcohol and Drug Abuse Patient Records regulations: The Federal rules restrict any use of the information to criminally investigate or prosecute any alcohol or drug abuse patient.[facility] CenterIn the event this information is protected by the Federal Confidentiality of Alcohol and Drug Abuse Patient Records regulations: The Federal rules restrict any use of the information to criminally investigate or prosecute any alcohol or drug abuse patient.[facility] CenterIn the event this information is protected by the Federal Confidentiality of Alcohol and Drug Abuse Patient Records regulations: The Federal rules restrict any use of the information to criminally investigate or prosecute any alcohol or drug abuse patient.[facility] CenterIn the event this information is protected by the Federal Confidentiality of Alcohol and Drug Abuse Patient Records regulations: The Federal rules restrict any use of the information to criminally investigate or prosecute any alcohol or drug abuse patient.[facility] CenterIn the event this information is protected by the Federal Confidentiality of Alcohol and Drug Abuse Patient Records regulations: The Federal rules restrict any use of the information to criminally investigate or prosecute any alcohol or drug abuse patient.[facility] CenterIn the event this information is protected by the Federal Confidentiality of Alcohol and Drug Abuse Patient Records regulations: The Federal rules restrict any use of the information to criminally investigate or prosecute any alcohol or drug abuse patient.[facility] CenterIn the event this information is protected by the Federal Confidentiality of Alcohol and Drug Abuse Patient Records regulations: The Federal rules restrict any use of the information to criminally investigate or prosecute any alcohol or drug abuse patient.[facility] CenterIn the event this information is protected by the Federal Confidentiality of Alcohol and Drug Abuse Patient Records regulations: The Federal rules restrict any use of the information to criminally investigate or prosecute any alcohol or drug abuse patient.[facility] CenterIn the event this information is protected by the Federal Confidentiality of Alcohol and Drug Abuse Patient Records regulations: The Federal rules restrict any use of the information to criminally investigate or prosecute any alcohol or drug abuse patient.[facility] CenterIn the event this information is protected by the Federal Confidentiality of Alcohol and Drug Abuse Patient Records regulations: The Federal rules restrict any use of the information to criminally investigate or prosecute any alcohol or drug abuse patient.[facility] CenterIn the event this information is protected by the Federal Confidentiality of Alcohol and Drug Abuse Patient Records regulations: The Federal rules restrict any use of the information to criminally investigate or prosecute any alcohol or drug abuse patient.[facility] Reason for Visit (unrecogniz ed section and [...] BE BASED ON THE PRIMARY CLINICAL RECORDS. [facility]. provides no warranty or guarantee of the accuracy or completeness of information in this document.
--- NOTE | 2023-11-30 23:22 | ECG_ITS ---
[facility] Test Date: 2023-11-30 Pat Name: LORNA DEUTSCH Department: Room: - Gender: Female [employer]: : 1985 Requested By: Edna Rendon Order Number: [id number] Reading MD: MICHELL CONTE Measurements Intervals [place] Rate: 123 P: 69 CT: 140 QRS: 66 QRSD: 106 T: 74 QT: 318 QTc: 391 Interpretive Statements 1120 Sinus tachycardia [address] depression, can't exclude inferolateral ischemia 9150 abnormal ECG Electronically Signed On 12-01-2023 6:35:44 EST by MICHELL CONTE
--- NOTE | 2023-11-30 23:22 | XR_ITS ---
The [address] [address] Patient Name: LORNA DEUTSCH MRN: [id number] date: 1985 Sex: F Assigned Patient Location: ER Current Patient Location: ER Accession/Order Number: [id number] Exam Date: 11/30/2023 23:25 Report Date: 12/01/2023 00:14 At the request of: TOREY FOWLER Procedure: XR chest 1V SINGLE VIEW CHEST: 11/30/2023 11:25 PM EST CLINICAL HISTORY: Dry cough. Chest pain radiating to back. chest pain, SOB COMPARISONS: Portable chest 09/15/2020 TECHNIQUE: 2 frontal views of the chest, utilizing portable technique. Portable radiography should be considered a technically compromised study. Strongly consider dedicated PA and lateral chest radiographs, as clinically indicated. FINDINGS: LINES AND TUBES: Cardiac monitoring leads and wires overlie the patient. CARDIAC SILHOUETTE: Within normal limits. MEDIASTINAL AND HILAR CONTOUR: Within normal limits. PULMONARY PARENCHYMA AND PLEURA: Lung knight are clear. No consolidation, edema, effusion, or pneumothorax. OSSEOUS STRUCTURES:Nothing significant. OTHER COMMENTS:None. XR/XR chest 1V IMPRESSION: Stable chest, with no acute radiographic findings. This report was generated with voice recognition software. Effort has been made to ensure accuracy of this report, however, occasional wording errors may persist. Please contact our office with any questions. Electronically authenticated by: MAC RIVERA Date: 12/01/2023 00:14
--- NOTE | 2023-11-30 23:30 | ED.GENADUL1 ---
HPI - General Adult General Chief complaint: Shortness of Breath/Dyspnea Stated complaint: BACK PAIN/SOB Time Seen by Provider: 11/30/23 23:10 Source: patient Mode of arrival: walk-in Limitations: no limitations History of Present Illness HPI narrative: Patient with 3 days of nausea and occasional vomiting along with fatigue now complains of chest pain and shortness of breath along with fever and cough that began this morning. She has not taken anything for the symptoms. 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 She is uncertain about covid or influenza exposure. No nausea now and no vomiting for the last 24 hours. Related Data Home Medications Medication Instructions Recorded Confirmed albuterol sulfate 90 mcg/actuation 2 puff inhalation Q6H PRN 07/02/23 12/01/23 aerosol inhaler shortness of breath or wheezing methadone 5 mg/5 mL oral solution 130 mg PO QDAY 07/02/23 11/21/23 pregabalin 100 mg capsule 100 mg PO Q8H 07/02/23 12/01/23 quetiapine 25 mg tablet 50 mg PO QDAY 09/09/23 12/01/23 albuterol sulfate 2.5 mg/3 mL mg 09/29/23 (0.083 %) solution for nebulization atomoxetine 25 mg capsule 25 mg PO DAILY 11/21/23 12/01/23 buprenorphine 8 mg-naloxone 2 mg 1 film sublingual DAILY 11/21/23 11/21/23 sublingual film bupropion HCl 300 mg 24 hr tablet, 300 mg PO DAILY 11/21/23 12/01/23 extended release duloxetine 30 mg capsule,delayed 30 mg PO .dailly 11/21/23 12/01/23 release bupropion HCl 450 mg 24 hr tablet, 450 mg PO DAILY 12/01/23 12/01/23 extended release docusate sodium 100 mg capsule 100 mg PO DAILY 12/01/23 12/01/23 duloxetine 60 mg capsule,delayed 60 mg PO DAILY 12/01/23 12/01/23 release hydroxyzine HCl 50 mg tablet 50 mg PO DAILY 12/01/23 12/01/23 melatonin 10 mg tablet 10 mg PO DAILY 12/01/23 12/01/23 oxcarbazepine 150 mg tablet 150 mg PO DAILY 12/01/23 12/01/23 oxcarbazepine 300 mg tablet 300 mg PO BID 12/01/23 12/01/23 quetiapine 200 mg tablet 200 mg PO DAILY 12/01/23 12/01/23 quetiapine 300 mg tablet 300 mg PO DAILY 12/01/23 12/01/23 trazodone 50 mg tablet 50 mg PO DAILY 12/01/23 12/01/23 Previous Rx's Medication Instructions Recorded hyoscyamine sulfate 0.125 mg 0.125 mg PO Q6H PRN abdominal pain 12/01/23 sublingual tablet (Levsin/SL) #20 tabs ondansetron 4 mg disintegrating 4 mg PO Q6H PRN nausea and 12/01/23 tablet vomiting #14 tabs oseltamivir 75 mg capsule (Tamiflu) 75 mg PO BID 5 days #10 caps 12/01/23 Allergies Allergy/AdvReac Type Severity Reaction Status Date / Time No Known Drug Allergies Allergy Verified 09/29/23 23:12 PFSH PFSH Social History Smoking status: Current every day smoker Exam Narrative Exam Narrative: Nurses notes and vital signs reviewed and patient is not hypoxic. febrile T100.3F General: Well-appearing and in no apparent distress. Skin: Warm, dry, no pallor noted. No rash. Head: Normocephalic, atraumatic. Neck: Supple, non-tender. Eye: Pupils are equal, round and EOMI. No scleral icterus. Ears, Nose, Mouth, and Throat: TM are clear, no posterior oropharynx erythema or nasal mucosal hypertrophy, uvula is mid-line Oral mucosa is moist Cardiovascular: tachycardia Respiratory: No accessory muscle use or respiratory distress. Lungs are clear to auscultation, no wheezing, rales or rhonchi Back: No CVA tenderness Musculoskeletal: normal ROM, no calf or popliteal tenderness, no lower extremity edema/swelling GI: Abdomen is soft, non-distended. Normal bowel sounds. No masses appreciated. No tenderness to palpation. No rebound, guarding, or rigidity noted. Neurological: A&O x4. No cranial nerve dysfunction observed. No truncal ataxia. Moves all extremities. Sensation intact. Psychiatric: Cooperative and interactive. Normal mood and affect. Constitutional Vital Signs, click to edit/add: Last Vital Signs Temp 99.3 F 12/01/23 00:36 Pulse 115 H 12/01/23 00:36 Resp 18 12/01/23 00:36 BP 96/76 12/01/23 00:36 Pulse Ox 96 12/01/23 00:36 O2 Del Method Room Air 11/30/23 23:10 Course Vital Signs Vital signs: Vital Signs Temperature 100.3 F 11/30/23 23:10 Pulse Rate 129 H 11/30/23 23:10 Respiratory Rate 22 11/30/23 23:10 Blood Pressure 123/82 11/30/23 23:10 Pulse Oximetry 99 11/30/23 23:10 Oxygen Delivery Method Room Air 11/30/23 23:10 Temperature 99.3 F 12/01/23 00:36 Pulse Rate 115 H 12/01/23 00:36 Respiratory Rate 18 12/01/23 00:36 Blood Pressure 96/76 12/01/23 00:36 Pulse Oximetry 96 12/01/23 00:36 Oxygen Delivery Method Room Air 11/30/23 23:10 Medical Decision Making MDM Narrative Medical decision making narrative: Patient was placed on residential monitor and EKG obtained. Blood drawn and sent for evaluation, including lactate, procalcitonin, blood cultures per sepsis protocol. Urine also ordered to be obtained and sent for testing. Swabs for influenza and COVID were sent. Portable chest x-ray obtained as well. She was ordered to receive normal saline IV fluid bolus, IV Toradol for pain. After I left the room, shortly after she denied having any nausea, she asked the emergency department nurse if she could have something for nausea. IV Zofran was ordered. Patient tested positive for influenza A. Influenza B and COVID were negative. White blood cell count is normal at 5.6. UA appears to be contaminated with increased squamous epithelial cells. Patient informed of results. She was given oral dissolvable Levsin for abdominal pain before discharge. She was prescribed Tamiflu as well as Zofran and Levsin to take at home. Lab Data Lab results reviewed: Yes I reviewed the patient's lab results Labs: Lab Results 11/30/23 11/30/23 Range/Units 00:00 23:23 WBC 5.6 (4.0-11.0) 10^3/uL RBC 3.98 L (4.20-5.40) 10^6/uL Hgb 11.9 L (12.0-16.0) g/dL Hct 36.2 (36.0-48.0) % MCV 91.0 (81.0-99.0) fL MCH 29.9 (26.7-34.0) pg MCHC 32.9 (29.9-35.2) g/dL RDW 14.1 (11.0-15.0) % Plt Count 177 (150-450) 10^3/uL MPV 10.4 (9.5-13.5) fL Neut % (Auto) 81.4 H (43.0-75.0) % Lymph % (Auto) 12.2 L (20.5-60.0) % Yell % (Auto) 5.6 (1.7-12.0) % Eos % (Auto) 0.0 L (0.9-7.0) % Baso % (Auto) 0.4 (0.2-2.0) % Neut # (Auto) 4.6 (1.4-6.5) 10^3/uL Lymph # (Auto) 0.7 L (1.2-3.8) 10^3/uL Yell # (Auto) 0.3 (0.3-0.8) 10^3/uL Eos # (Auto) 0.0 (0.0-0.7) 10^3/uL Baso # (Auto) 0.0 (0.0-0.1) 10^3/uL Abs Immat Gran (auto) 0.02 (0.00-0.03) 10^3/uL Imm/Tot Granulo (auto) 0.4 (0.0-0.5) % Urine Color Lt. yellow (YELLOW) Urine Clarity Clear (CLEAR) Urine pH 7.5 (5.0-9.0) Ur Specific [place] 1.010 (1.005-1.025) Urine Protein Negative (NEG/TRACE) mg/dL Urine Glucose (UA) Negative (NEGATIVE) mg/dL Urine Ketones Negative (NEGATIVE) mg/dL Urine Occult Blood Trace-i (NEGATIVE) Urine Nitrite Negative (NEGATIVE) Urine Bilirubin Negative (NEGATIVE) Urine Urobilinogen 0.2 (0.2-1.0) EU/dL Ur Leukocyte Esterase Negative (NEGATIVE) Urine RBC 0-2 (0-2) #/HPF Urine WBC 0-2 A (NONE SEEN) #/HPF Ur Squamous Epith Cells None seen (NONE/RARE) #/LPF Urine Crystals None seen (None Seen) #/HPF Urine Bacteria None seen (NONE SEEN) #/HPF Urine Casts None seen (NONE SEEN) #/LPF Urine Mucus None seen (NONE SEEN) Ur Culture Indicated? No Influenza Type A Ag Positive A Influenza Type B Ag Negative SARS-CoV-2 Ag (CV2AG) Negative (NEGATIVE) Imaging Data Chest x-ray: Radiologist's impression: ITS Impressions Chest X-Ray 11/30/23 23:22 IMPRESSION: Stable chest, with no acute radiographic findings. This report was generated with voice recognition software. Effort has been made to ensure accuracy of this report, however, occasional wording errors may persist. Please contact our office with any questions. Electronically authenticated by: MAC RIVERA Date: 12/01/2023 00:14 ECG Data Attestation: I personally reviewed and interpreted this ECG as follows: Interpretation: EKG interpretation: Emergency Department physician interpretation. Sinus tachycardia at 123bpm. Normal axis, normal intervals and no ST segment elevation or depression. Discharge Plan Discharge Chief Complaint: Shortness of Breath/Dyspnea Clinical Impression: Influenza A, Viral syndrome Patient Disposition: Home, Self-Care Time of Disposition Decision: 00:44 Prescriptions / Home Meds: New hyoscyamine sulfate [Levsin/SL] 0.125 mg tablet, sublingual 0.125 mg PO Q6H PRN (Reason: abdominal pain) Qty: 20 0RF ondansetron 4 mg tablet,disintegrating 4 mg PO Q6H PRN (Reason: nausea and vomiting) Qty: 14 0RF oseltamivir [Tamiflu] 75 mg capsule 75 mg PO BID 5 Days Qty: 10 0RF No Action pregabalin 100 mg capsule 100 mg PO Q8H albuterol sulfate 90 mcg/actuation HFA aerosol inhaler 2 puff INHALATION Q6H PRN (Reason: shortness of breath or wheezing) methadone 5 mg/5 mL solution 130 mg PO QDAY Hold Instructions: dc albuterol sulfate 2.5 mg /3 mL (0.083 %) solution for nebulization Hold Instructions: dc quetiapine 25 mg tablet 50 mg PO QDAY Rx Instructions: 2pm duloxetine 30 mg capsule,delayed release(DR/EC) 30 mg PO .ashleigh Patient Comments: 30mg in morning 60mg at night atomoxetine 25 mg capsule 25 mg PO DAILY buprenorphine-naloxone 8-2 mg film 1 film sublingual DAILY Patient Comments: 2 in the morning and 1 at night bupropion HCl 300 mg tablet extended release 24 hr 300 mg PO DAILY bupropion HCl 450 mg tablet extended release 24 hr 450 mg PO DAILY docusate sodium 100 mg capsule 100 mg PO DAILY duloxetine 60 mg capsule,delayed release(DR/EC) 60 mg PO DAILY hydroxyzine HCl 50 mg tablet 50 mg PO DAILY melatonin 10 mg tablet 10 mg PO DAILY oxcarbazepine 300 mg tablet 300 mg PO BID oxcarbazepine 150 mg tablet 150 mg PO DAILY quetiapine 200 mg tablet 200 mg PO DAILY quetiapine 300 mg tablet 300 mg PO DAILY trazodone 50 mg tablet 50 mg PO DAILY Instructions: Influenza (ED), Viral Syndrome (ED) Stand Alone Forms: Portal Instructions Referrals: RAHEL THORNTON [Primary Care Provider] - 1 week
[2023-11-30] MEDS: 0.9 % SODIUM CHLORIDE 1,000 ML 999 ML IV (23:36)
[2023-11-30] MEDS: ACETAMINOPHEN 500 MG TABLET 1000 MG PO (23:37)
[2023-11-30] MEDS: KETOROLAC TROMETHAMINE 30 MG/ML VIAL IVP (23:48)
[2023-11-30] MEDS: ONDANSETRON PF 4 MG/2 ML VIAL IV (23:48)
[2023-12-01] VITALS: PULSE 120; RESP 15
[2023-12-01 00:10] VITALS: PULSE 117; RESP 17
[2023-12-01 00:13] LABS: Basophils Percent Auto 0.4 % (0.2-2.0); Hematocrit 36.2 % (36.0-48.0); Hemoglobin 11.9 g/dL (12.0-16.0); Immature Granulocytes Abs Auto 0.02 10^3/uL (0.00-0.03); Immature Granulocytes Pct Auto 0.4 % (0.0-0.5); Lymphocytes Absolute Auto 0.7 10^3/uL (1.2-3.8); Lymphocytes Percent Auto 12.2 % (20.5-60.0); Mean Corpuscular HGB Conc 32.9 g/dL (29.9-35.2); Mean Corpuscular Hemoglobin 29.9 pg (26.7-34.0); Mean Platelet Volume 10.4 fL (9.5-13.5); Monocytes Absolute Auto 0.3 10^3/uL (0.3-0.8); Monocytes Percent Auto 5.6 % (1.7-12.0); Neutrophils Absolute Auto 4.6 10^3/uL (1.4-6.5); Neutrophils Percent Auto 81.4 % (43.0-75.0); Platelet Count 177 10^3/uL (150-450); Red Blood Count 3.98 10^6/uL (4.20-5.40); Red Cell Distribution Width 14.1 % (11.0-15.0); White Blood Count 5.6 10^3/uL (4.0-11.0)
[2023-12-01 00:20] VITALS: PULSE 117; RESP 19
[2023-12-01 00:20] LABS: Bilirubin Urine NEGATIVE (NEGATIVE); Blood Urine TRACE-I (NEGATIVE); Clarity Urine CLEAR (CLEAR); Color Urine LT. YELLOW (YELLOW); Glucose Urine UA NEGATIVE (NEGATIVE); Ketones Urine NEGATIVE (NEGATIVE); Leukocyte Esterase Urine NEGATIVE (NEGATIVE); Nitrite Urine NEGATIVE (NEGATIVE); Protein Urine NEGATIVE (NEG/TRACE); Urobilinogen Urine 0.2 EU/dL (0.2-1.0); pH Urine 7.5 (5.0-9.0)
[2023-12-01 00:23] LABS: Urine Microscopic Indicated YES
[2023-12-01 00:30] LABS: Influenza Virus A Antigen Positive; Influenza Virus B Antigen Negative; Internal Control Within Normal Limits
[2023-12-01 00:31] LABS: SARS-CoV-2 Ag NEGATIVE (NEGATIVE)
[2023-12-01 00:36] VITALS: BP 96/76; PULSE 115; RESP 18; TEMP 37.4; O2SAT 96
[2023-12-01 00:38] LABS: WBC Urine 0-2 #/HPF (NONE SEEN)
[2023-12-01 00:39] LABS: Bacteria Urine NONE SEEN #/HPF (NONE SEEN); Cast Seen? NONE SEEN #/LPF (NONE SEEN); Crystals Seen? None Seen #/HPF (None Seen); Mucus Urine NONE SEEN (NONE SEEN); RBC Urine 0-2 #/HPF (0-2); Squamous Epithelial Cell Urine NONE SEEN #/LPF (NONE/RARE); Urine Culture Indicated NO
[2023-12-01 00:42] LABS: Lactate/Lactic Acid 1.9 mmol/L (0.4-2.0)
[2023-12-01 00:43] LABS: Anion Gap 15.2; BUN Creatinine Ratio 16.7; Calcium 8.3 mg/dL (8.5-10.1); Carbon Dioxide 24.2 mmol/L (21.0-32.0); Chloride 100 mmol/L (98-107); Estimated GFR (African America >60 (>=60); Estimated GFR (Non-African Ame >60 (>=60); Glucose 102 mg/dL (74-106); Magnesium 1.8 mg/dL (1.8-2.4); Potassium 3.4 mmol/L (3.5-5.1); Sodium 136 mmol/L (136-145); Troponin I High Sensitivity <4.0 pg/mL (4.0-51.3)
[2023-12-01 00:51] LABS: PROCALCITONIN <0.05 ng/mL (0.00-0.50)
[2023-12-01] MEDS: HYOSCYAMINE SULFATE 0.125 MG TAB.SUBL SL (00:55)
[2023-12-01] MEDS: LORAZEPAM 0.5 MG TABLET PO (00:55)
[2023-12-01 01:00] VITALS: BP 100/70; PULSE 100; RESP 20; O2SAT 98
== END 2023-12-01 01:00 | disposition home or self-care (01) ==
PROVIDERS: Emergency Provider Emergency Medicine; PCP Nurse Practitioner Family
DX: J10.1 Influenza due to other identified influenza virus with other respiratory manifestations (principal); F41.9 Anxiety disorder, unspecified; Z79.899 Other long term (current) drug therapy; F17.200 Nicotine dependence, unspecified, uncomplicated; R50.9 Fever, unspecified
CPT/HCPCS: 36415; 71045; 80048; 81001; 83605; 83735; 84145; 84484; 85025; 85378; 87040; 87804; 87811; 93005; 96374; 96375; 99285; J1885; J2405

== ENCOUNTER 2023-12-01 01:24 | Emergency (ER) | payer OTHER, SELFPAY ==
[2023-12-01 01:27] VITALS: BP 97/58; PULSE 67; RESP 18; TEMP 37.7; O2SAT 99; BMI 23.3
--- NOTE | 2023-12-01 01:31 | CT_ITS ---
The [address] [address] Patient Name: LORNA DEUTSCH MRN: [id number] date: 1985 Sex: F Assigned Patient Location: ER Current Patient Location: ER Accession/Order Number: [id number] Exam Date: 12/01/2023 01:33 Report Date: 12/01/2023 03:11 At the request of: TOREY FOWLER Procedure: CT abdomen pelvis wo con CT ABDOMEN PELVIS WITHOUT CONTRAST HISTORY: Generalized abdominal pain COMPARISON: None. TECHNIQUE: Thin section axial CT images were obtained from the lung bases to the pubis symphysis. This CT exam was performed using one or more of the following dose reduction techniques: Automated exposure control, adjustment of the mA and/or kV according to patient size, or use of iterative reconstruction technique. Thin section coronal and sagittal images were reconstructed from the axial data set. All images were reviewed and interpreted. CONTRAST: None. FINDINGS: Assessment of solid organs is limited without the benefit of IV contrast. LUNG BASES: The lung bases are clear. GE JUNCTION AND STOMACH: Negative. No hiatal hernia. LIVER: Negative. GALLBLADDER AND BILIARY TREE: Normal gallbladder. SPLEEN: Negative. PANCREAS: Negative. ADRENALS: Negative. KIDNEYS AND URETERS: Negative. No urinary tract calculi or hydronephrosis. No renal masses or cysts are evident. SMALL BOWEL: Negative. LARGE BOWEL: Moderate diffuse colonic stool throughout the large bowel with scattered punctate hyperdense flecks of debris or possibly Pepto-Bismol like substance. Correlate with recent ingestion. Correlate for constipation. No colonic wall thickening or significant diverticulosis and no evidence of acute diverticulitis. APPENDIX: Normal appendix. AORTA: The abdominal aorta is normal size. IVC: Negative. LYMPH NODES: There is no lymphadenopathy. BLADDER: Normal bladder. BONES: Unremarkable. COMMENTS: No ascites. No free air. Mildly complex septated cyst in the left ovary, likely ovarian. This extends 6.4 cm x 3.1 cm. Mean attenuation value is 12 Hounsfield units. Probable functional ovarian cyst. If symptomatic, correlation with pelvic ultrasound, otherwise suspected a benign physiologic. CT/CT abdomen pelvis wo con IMPRESSION: Mildly complex septated cyst in the left ovary, likely ovarian. This extends 6.4 cm x 3.1 cm. Mean attenuation value is 12 Hounsfield units. Probable functional ovarian cyst. If symptomatic, correlation with pelvic ultrasound, otherwise suspected a benign physiologic. Scattered colonic stool as discussed. Correlate for constipation. No additional significant findings. Electronically authenticated by: MAC RIVERA Date: 12/01/2023 03:11
--- OUTSIDE RECORDS SUMMARY | 2023-12-01 01:31 | XMS_ITS | CCD ---
Author Name Unknown Address [address] [place] [address] Organization [facility] Care Team Providers Care Accounts Payable Clerk Name Role Phone LUCAS HOFFMANN Primary Care Unavailable JETHRO MOONEY Attending Unavailable Unavailable Primary Care Provider UnavailJOSE Schulz Referring Unavailable PARINJA, BRET Attending Unavailable PARINJA, BRET Admitting Unavailable TEAGAN, CON S Consulting Unavailable DYLAN LIAO Consulting Unavailable ANGELICA NEWMAN Consulting Unavailable PARINJA, BRET Admitting Unavailable PARINJA, BRET Attending Unavailable TEAGAN, CON S Consulting Unavailable NANCY RODRIGUEZ Primary Care Physician [phone] Jeanna Medina Unavailable Unavailable DO Rachael Reyes Emergency Provider [phone] ERNESTINE Rodriguez Primary Care Provider Cris PENA Primary Care Physician DO Rachael Reyes Emergency Provider [phone] RUIZ Pena Primary Care Provider DO Nito Walton Emergency Provider DO Rachael Reyes Emergency Provider CHOLO PenaN Cris Primary Care Provider [phone] DO Nito Walton Emergency Provider DO Jose Moses Emergency Provider MD Bobo Shields Admit Provider MD Bobo Shields Attending Provider [phone] MISC, DR AGARWAL Primary Care Unavailable JANET [...] Provider Caitlin Cheatham APRN.CNP Primary Care Provider CHOLO PenaApoorva Lynch Primary Care Provider [phone] DO Leonard Salazar Emergency Provider [phone] DO Rachael Reyes Emergency Provider [phone] NON STAFF Primary Care Provider UnavailJOSE Burns Emergency Provider Unavailable Primary Care Provider UnavailCAITLIN Diaz Referring Unavailable LINDEN, CAITLIN Primary Care Unavailable ISACC REDMOND Attending Unavailable DO Rachael Reyes Emergency Provider MD Luis Armando Hendrix Emergency Provider GHASSAN CARRASCO Attending Unava TRACE Patrick Primary Care UnaMD Won Yanesmi Admit Provider MD Bobo Shields Attending Provider AKBAR KOCH Attending Unavailable MUHA, CAITLIN Referring [...] Care Provider DO Rachael Reyes Emergency Provider [phone] RUIZ Pena Cris Primary Care Provider MD Claudio Dee Attending Provider MD Chucky Dueñas Jr Emergency Provider MD Won Shieldsmi Admit Provider [phone] MD Bobo Shields Attending Provider Magalie Cris [...] q6hr for wheezing, 60 EA, Refill(s) 1, [facility] #[id number], 167, cm, 10/02/22 14:11:00 EST, Height/Length Dosing, [...] q6hr for wheezing, 60 EA, Refill(s) 1, [facility] #[id number], 165, cm, 11/01/21 14:58:00 EST, Height/Length Dosing, [...] BID, # 1 EA, Refills(s) 10, Pharmacy: [facility] #[id number], 167, cm, 10/02/22 14:11:00 EST, Height/Length Dosing, 70, kg, 10/02/22 14:11:00 EST, Weight Dosing Start Date: 10/02/22 Status: Ordered Start: 04-22-2022 Pulmicort Flex haler 180 mcg/inh Powder = 2 inh, Inhalation, BID, # 1 EA, Refills(s) 10, Pharmacy: [facility] #[id number], 165, cm, 11/01/21 14:58:00 EST, Height/Length Dosing, [...] day(s), # 14 cap(s), Refills(s) 0, [id number], 165, cm, 04/24/22 13:10:00 EDT, Height/Length Dosing, [...] 2023 12:00am Start: 12-08-2019 End: 07-17-2020 take 15532 [IU] by mouth every week Ergocalciferol (Vitamin D2) Discontinued 56540 UNIT PO every week December 08, 2019 12:00am July 17, 2020 10:04pm Start: 11-07-2019 End: 12-08-2019 take 03570 [IU] by mouth every week Ergocalciferol (Vitamin D2) Discontinued 26583 UNIT PO every week November 07, 2019 12:00am December 08, 2019 1:42pm on Start: 11-07-2019 End: 12-08-2019 take 01988 [IU] by mouth every week Ergocalciferol (Vitamin D2) Discontinued 58501 UNIT PO every week November 07, 2019 1:00am December 08, 2019 2:42pm on Start: 11-03-2019 End: 11-07-2019 Ergocalciferol (Vitamin D2) Discontinued 24239 UNIT PO Th@0900 November 03, 2019 12:00am November 07, 2019 2:44pm Start: 11-03-2019 End: 11-07-2019 Ergocalciferol (Vitamin D2) Discontinued 60950 UNIT PO Th@0900 November 03, 2019 1:00am [...] daily. Take 1 capsule by mo [facility] three times daily for 30 days. Take 1 capsule by mo [facility] three times daily for 90 days. Take 1 capsule by mo [facility] three times a day for 30 days. promethazine hydrochloride 25 mg oral tablet (4 sources) Phenothiazine Start: 12-22-19 take 1 tablet by mouth every four hours as needed for nausea promethazine 25 mg Tab 25 mg = 1 tab(s), Oral, q4hr, PRN for nausea/vomiting, # 30 tab(s), Refills(s) 0, Pharmacy: [facility], 165, cm, 12/22/19 13:50:00 EDT, Height/Length [...] BID, # 60 tab(s), Refills(s) 3, Pharmacy: [facility] #[id number], 165, cm, 11/01/21 14:58:00 EST, Height/Length Dosing, [...] puff(s), Inhalation, QID, 1 EA, Refill(s) 1, [id number], 167, cm, 10/02/22 14:11:00 EST, Height/Length Dosing, 70, kg, 10/02/22 14:11:00 EST, Weight Dosing Start Date: 10/02/22 Status: Ordered Start: 01-20-2022 take 1 dose by inhal ation four times daily albuterol HFA 90 mcg/inh MDI 2 puff(s), Inhalation, QID, 1 EA, Refill(s) 1, [facility] #[id number], 165, cm, 11/01/21 14:58:00 EST, Height/Length [...] supply, # 60 tab(s), Refills(s) 0, [id number], 167, cm, 11/06/22 14:42:00 EST, Height/Length Dosing, 68.2, kg, 11/06/22 14:42:00 EST, Weight Dosing Start Date: 11/06/22 Status: Ordered Start: 10-10-2022 End: 10-17-2022 take 1 tablet by mouth three times daily amphetamine-dextroamphetamine 10 mg oral tablet 10 mg, 1 tab(s), Oral, TID for 7 day(s), 21 tab(s), Refill(s) 0, [id number], 167, cm, 10/10/22 12:48:00 EST, Height/Length Dosing, 72.9, kg, 10/10/22 12:48:00 EST, Weight Dosing Start Date: 10/10/22 Stop Date: 10/17/22 Status: Ordered Start: 01-17-2019 End: 01-20-2019 take 30 mg by mouth twice daily Dextroamphetamine-Amphetamine Discontinu ed 30 MG PO Twice daily January 16, 2019 11:00pm January 20, 2019 5:01pm Comment on above: Take 2 tablets by mo [facility] twice daily for 30 days. Take 10 [...] mg/ml extended release suspension (14 sources) Uncompetitive Q-mkknfc-Q-aspartate Receptor Antagonist, Sigma-1 Agonist Start: 022 End: [...] day, # 150 cap(s), Refills(s) 2, [facility]: [facility][id number], 167, cm, 11/06/22 14:42:00 EST, Height/Length Dosing, 68.2, kg, 11/06/22 14:42:00 EST, Weight Dosing Start Date: 11/06/22 Status: Ordered Start: 10-02-2022 gabapentin 400 mg Cap See Instructions, 1 cap(s) Oral 5 x per day, # 150 cap(s), Refills(s) 2, Pharmacy: [facility] #[id number], 167, cm, 10/02/22 14:11:00 EST, Height/Length Dosing, 70, kg, 10/02/22 14:11:00 EST, Weight Dosing Start Date: 10/02/22 Status: Ordered Start: 02-28-2022 End: 05-29-2022 take 1 tablet by mouth four times daily gabapentin 600 mg Tab 600 mg = 1 tab(s), Oral, QID, X 30 day(s), # 120 tab(s), Refills(s) 2, Pharmacy: [facility], 165, cm, 11/01/21 14:58:00 EST, Height/Length [...] anxiety, # 200 mL, Refills(s) 3, Pharmacy: [facility] #[id number], 167, cm, 11/06/22 14:42:00 EST, Height/Length Dosing, 68.2, kg, 11/06/22 14:42:00 EST, Weight Dosing Start Date: 11/06/22 Status: Ordered Start: 04-22-2022 take 1 capsule by mo [facility] three times daily Vistaril 50 mg Cap 50 mg = 1 cap(s), Oral, TID, # 90 cap(s), Refills(s) 1, Pharmacy: [facility] #[id number], 165, cm, 11/01/21 14:58:00 EST, Height/Length Dosing, [...] 07/18/2020 Discontinued (LIST CLEANUP) polyethylene glycol 3350 41869 mg powder for oral solution (20 sources) [...] Other long-term (current) drug therapy; Translations: [OTH UKE OPERATOR CURRENT DRUG THERAPY] Onset: 12-17-2022 Episodic Other [...] [PROC AND TX NOT CARRIED OUT PT [facility] RSN] Onset: 01-13-2023 Episodic Residual codes; unclassified [...] Comment on above: [facility] for attempted [facility] and [...] [facility] ED Note-Physicianon 11-05-19 ED Note-Physician [id number] .00TIFF [facility] Consultation Noteon 10-20-19 Consultation Note [id number]. 00TIFF Normal [facility] Aerobic Cultureon 10-16-2023 Aerobic Culture Moderate Normal Respiratory Lanny 2 Days Gram Stain Result 2+ Epithelial Cells 2+ White Blood Cells Rare Gram Positive Bacilli PERFORMED BY: [place] [address] PATHOLOGIST SILVICULTURE PROFESSOR DANYELL LIVINGSTON M.D. [facility] Comment on above: Performed By: #### U HCG, URDS, ADDONUAPLUS, CUU #### [facility] [address] [place], [place] [id number] [facility] Aerobic cultureOrdered By: Cesia Abdi on 10-16-2023 Bacteria identified Aer cx Nom (Unsp spec) 2 Days [facility] Gram Stainon 10-16-2023 Microscopic observation Gram stain Nom (Unsp spec) Gram Stain Result 2+ Epithelial Cells 2+ White Blood Cells Rare Gram Positive Bacilli PERFORMED BY: [place] [address] PATHOLOGIST SILVICULTURE PROFESSOR DANYELL LIVINGSTON M.D. [facility] Comment on above: Performed By: #### U HCG, URDS, ADDONUAPLUS, CUU #### [facility] [address] [place], [place] [address] [place] Gram stain for investigation of transfusion reactionOrdered By: Darlin Martin on 10-16-2023 Microscopic observation Gram stain Nom (Unsp spec) [facility] Urinalysison 10-16-2023 Appearance (U) Clear Normal Clear [facility] Comment on above: Order Comment: Comme nt use er lab draw Performed By: #### L IPID, [id number], TSH3 wRFLX #### [facility] [address] [place], [place] [address] [place] Bilirubin,Urine Negative Normal Negative [facility] Comment on above: Order Comment: Comme nt use er lab draw Performed By: #### L IPID, [id number], TSH3 wRFLX #### [facility] [address] [place] [address] [place] Glucose Ql (U) Normal Normal Normal [facility] Comment on above: Order Comment: Comme nt use er lab draw Performed By: #### L IPID, [id number], TSH3 wRFLX #### [facility] [address] [place] [address] [place] Ketones Ql (U) Negative Normal Negative [facility] Comment on above: Order Comment: Comme nt use er lab draw Performed By: #### L IPID, [id number], TSH3 wRFLX #### [facility] [address] [place] [address] Leukocyte esterase Test strip Ql (U) Negative Normal Negative [facility] Comment on above: Order Comment: Comme nt use er lab draw Performed By: #### L IPID, [id number], TSH3 wRFLX #### [facility] [address] [place] [address] [place] Nitrite,Urine Negative Normal Negative [facility] Comment on above: Order Comment: Comme nt use er lab draw Performed By: #### L IPID, [id number], TSH3 wRFLX #### [facility] [address] [place] [address] [place] Occult Blood,Urine Negative Normal Negative [facility] Comment on above: Order Comment: Comme nt use er lab draw Result Comment: PERF ORMED BY: [place] [address] PATHOLOGIST SILVICULTURE PROFESSOR DANYELL LIVINGSTON M.D. Performed By: #### L IPID, [id number], TSH3 wRFLX #### [facility] [address] [place] [address] [place] Protein,Urine Negative Normal Negative [facility] Comment on above: Order Comment: Comme nt use er lab draw Performed By: #### L IPID, [id number], TSH3 wRFLX #### [facility] [address] [place] [address] [place] Specificy [place],Urine 1.017 Normal 1.001-1.030 [facility] Comment on above: Order Comment: Comme nt use er lab draw Performed By: #### L IPID, [id number], TSH3 wRFLX #### [facility] [address] Urobilinogen,Urine Normal Normal Normal [facility] Comment on above: Order Comment: Comme nt use er lab draw Performed By: #### L IPID, [id number], TSH3 wRFLX #### [facility] [address] [place] [address] [place] Automated urine color determ inationOrdered By: Darlin Abdi on 10-15-2023 Color (U) Yellow Normal Yellow [facility] Comment on above: Order Comment: Comme nt use er lab draw Performed By: #### L IPID, [id number], TSH3 wRFLX #### [facility] [address] Bilirubin Test strip Ql (U)O rdered By: Darlin Abdi on 10-15-2023 Bilirubin Ql (U) Negative Negative [facility] Ketones Auto test strip (U) [Mass/Vol]Ordered By: Darlin Abdi on 10-15-2023 Ketones (U) [Mass/Vol] Negative Negative [facility] Nitrite Test strip Ql (U)Ord ered By: Darlin Abdi on 10-15-2023 Nitrite Ql (U) Negative Negative [facility] Protein Auto test strip (U) [Mass/Vol]Ordered By: Darlin Abdi on 10-15-2023 Protein (U) [Mass/Vol] Negative Negative [facility] Specific gravity Auto test s trip (U) [Rel density]Ordered By: Darlin Martin on 10-15-2023 Specific gravity (U) [Rel density] 1.017 1.001-1.030 [facility] Urine clarity by refractomet ry automatedOrdered By: Darlin Abdi on 10-15-2023 Clarity Refractometry automated (U) Clear Clear [facility] Urine glucose measurement by automated test strip (mass/volume)Ordered By: Darlin Abdi on 10-15-2023 Glucose Auto test strip (U) [Mass/Vol] Normal mg/dL Normal [facility] Urine hemoglobin detection b y automated test stripOrdered By: Darlin Martin on 10-15-2023 Hemoglobin Auto test strip Ql (U) Negative Negative [facility] Urine leukocyte esterase det ection by automated test stripOrdered By: Darlin Abdi on 10-15-2023 Leukocyte esterase Auto test strip Ql (U) Negative Negative [facility] Urine pH measurement by auto mated test stripOrdered By: Darlin Abdi on 10-15-2023 pH (U) 6.5 [pH] Normal 5.0-9.0 [facility] Comment on above: Order Comment: Comme nt use er lab draw Performed By: #### L IPID, [id number], TSH3 wRFLX #### [address] Urobilinogen Auto test strip (U) [Mass/Vol]Ordered By: Darlin Abdi on 10-15-2023 Urobilinogen (U) [Mass/Vol] Normal mg/dL Normal [facility] XR chest 2V*on 10-15-2023 XR chest 2V* [facility] [place] [address] [place] [address] XRay Report Signed Patient: Lorna Deutsch MR#: [id number] [birth year] : 1985 Acct:[id number] Age/Sex: 38 / F ADM Date: 10/09/23 Loc: Room: [address] [place] [address] Type: ADM IN Attending Dr: Bobo Shields MD Copies to: MD Darlin Murcia APRN Ordering Provider: Dralin Abdi APRN Date of Service: 10/15/23 XR/XR [...] Viviana Bui M.D.10/15/2023 5:44 PM Dictation Location: [place] [address] Transcribed By: [facility] 10/15/231743 Dictated By: Viviana Bui MD 10/15/231742 Signed By: 10/15/231743 Normal [facility] Acetaminophenon 10-09-2023 Acetaminophen [Mass/Vol] 0.1 ug/mL Low 10.0-30.0 [facility] Comment on above: Performed By: #### L IPID, [id number], TSH3 wRFLX #### [address] Ammoniaon 10-09-2023 Ammonia (P) [Moles/Vol] 27 umol/L Normal 11-35 [facility] Comment on above: Result Comment: PERF ORMED BY: [place] [address] PATHOLOGIST SILVICULTURE PROFESSOR DANYELL LIVINGSTON M.D. Performed By: #### L IPID, [id number], TSH3 wRFLX #### [address] ECG 12 lead ECGon 10-09-2023 ECG 12 lead ECG [facility] [place] [address] [place] [address] Electrocardiograph Report Signed Patient: Lorna Deutsch MR#: [id number] [birth year] : 1985 Acct:[id number] Age/Sex: 38 / F ADM Date: 10/09/23 Loc: Room: [address] [place] [address] Type: ADM IN Attending Dr: Bobo Shields [...] By Amaya Carbajal DO 10/11 1555 Normal [facility] Salicylateon 10-09-2023 Salicylate < 1.5 Low 15.0-30.0 [facility] Comment on above: Result Comment: Sonia ents treated with Sulfasalazine may generate a false high result for Salicylate. Performed By: #### L IPID, [id number], TSH3 wRFLX #### [facility] [address] Valproic Acid (in house)on 1 Valproic Acid (in house) < 4.0 Low 50.0-100.0 [facility] Comment on above: Result Comment: Last dose: - PERFORMED BY: [place] [address] PATHOLOGIST SILVICULTURE PROFESSOR DANYELL LIVINGSTON M.D. Performed By: #### L IPID, [id number], TSH3 wRFLX #### [facility] [address] [place] [address] Acetaminophen [Mass/volume] in Serum or PlasmaOrdered By: Chucky Dueñas on 10-08-2023 Acetaminophen [Mass/Vol] 0.1 ug/mL 10.0-30.0 [facility] Alanine aminotransferase [En zymatic activity/volume] in Serum or PlasmaOrdered By: Chucky Dueñas on 10-08-2023 ALT [Catalytic activity/Vol] 12 U/L - [facility] Albumin [Mass/volume] in Ser um or Plasma by Bromocresol green (BCG) dye binding methoOrdered By: Chucky Dueñas on 10-08-2023 Albumin BCG dye [Mass/Vol] 3.9 g/dL 3.5-5.7 [facility] Alkaline phosphatase [Enzyma tic activity/volume] in Serum or PlasmaOrdered By: Chucky Dueñas on 10-08-2023 ALP [Catalytic activity/Vol] 57 U/L 34-104 [facility] Ammonia [Moles/volume] in Pl asmaOrdered By: Chucky Dueñas on 10-08-2023 Ammonia (P) [Moles/Vol] 27 umol/L 11-35 [facility] Amphetamine Screen Ql (U)Ord ered By: Chucky Dueñas on 10-08-2023 Amphetamines Ql (U) Positive Negative [facility] Aspartate aminotransferase [ Enzymatic activity/volume] in Serum or PlasmaOrdered By: Chucky Dueñas on 10-08-2023 AST [Catalytic activity/Vol] 16 U/L 13-39 [facility] Automated erythrocytes count in urine sediment (number/area)Ordered By: Chcuky Dueñas on 10-08-2023 RBC Auto (Urine sed) [#/Area] 3-4 [HPF] 0-4 [facility] Automated leukocytes count i n urine sediment (number/area)Ordered By: Chucky Dueñas on 10-08-2023 WBC Auto (Urine sed) [#/Area] 10-19 [HPF] 0-4 [facility] Automated urine hyaline cast s count (number/volume)Ordered By: Chucky Dueñas on 10-08-2023 Hyaline casts Auto (U) [#/Vol] None seen [LPF] 0-1 [facility] Barbiturates [Presence] in U rine by Screen methodOrdered By: Chucky Dueñas on 10-08-2023 Barbiturates Screen Ql (U) Negative Negative [facility] Basophils Auto (Bld) [#/Vol] Ordered By: Chucky Dueñas on 10-08-2023 Basophils (Bld) [#/Vol] 0.1 10*3/uL 0.0-0.2 [facility] Basophils/100 WBC Auto (Bld) Ordered By: Chucky Dueñas on 10-08-2023 Basophils/100 WBC (Bld) 0.7 % . [facility] Benzodiazepines Screen Ql (U )Ordered By: Chucky Dueñas on 10-08-2023 Benzodiazepines Ql (U) Negative [facility] Benzoyle[facility]gonine [Presence] i n Urine by Screen methodOrdered By: Chucky Dueñas on 10-08-2023 Benzoylecgonine Screen Ql (U) Negative Negative [facility] Bilirubin Test strip Ql (U)O rdered By: Chucky Dueñas on 10-08-2023 Bilirubin Ql (U) 1+ Negative [facility] Bilirubin.total [Mass/volume ] in Serum or PlasmaOrdered By: Chucky Dueñas on 10-08-2023 Bilirubin [Mass/Vol] 0.3 mg/dL 0.3-1.[address] [facility] Calcium [Mass/volume] in Ser um or PlasmaOrdered By: Chucky Dueñas on 10-08-2023 Calcium [Mass/Vol] 9.0 mg/dL 8.6-10.3 [facility] Cannabinoids [Presence] in U rine by Screen methodOrdered By: Chucky Dueñas on 10-08-2023 Cannabinoids Screen Ql (U) Negative Negative [facility] Comment on above: These are unconfirme d results and should not be used for legal purposes. Drug Cut-Off Concentration: AMPH 1000 ng/mL SARA 200 ng/mL MARTÍNEZ 200 ng/mL COCM 300 ng/mL OP 300 ng/mL PCP 25 ng/mL THC 20 ng/mL Carbon dioxide, total [Moles /volume] in Serum or PlasmaOrdered By: Chucky Dueñas on 10-08-2023 CO2 [Moles/Vol] 24.7 mmol/L 21.0-31.0 [facility] Casts typing in urine sedime nt by light microscopyOrdered By: Chucky Dueñas on 10-08-2023 Casts LM Nom (Urine sed) None seen [LPF] None Seen [facility] Chloride [Moles/volume] in S maris or PlasmaOrdered By: Chucky Dueñas on 10-08-2023 Chloride [Moles/Vol] 105 mmol/L 98-[address] [facility] Cholesterol [Mass/volume] in Serum or PlasmaOrdered By: Bobo Shields on 10-08-2023 Cholesterol [Mass/Vol] 151 mg/dL 140-200 [facility] Comment on above: Chol less than 200 m g/dl low riskChol 201-239 mg/dl borderline riskChol 240 mg/dl and greater high risk Cholesterol in LDL Calc [Mas s/Vol]Ordered By: Bobo Shields on 10-08-2023 Cholesterol in LDL [Mass/Vol] 87 mg/dL 0-100 [facility] Comment on above: LDL ATP III CLASSIFI CATIONLDL less than 100 mg/dL OptimalLDL 100-129 mg/dL Near or above optimalLDL 130-159 mg/dL Borderline highLDL 160-189 mg/dL HighLDL greater than 189 mg/dL Very high Cholesterol in VLDL Calc [Ma ss/Vol]Ordered By: Bobo Shields on 10-08-2023 Cholesterol in VLDL [Mass/Vol] 29 mg/dL [facility] Color Auto (U)Ordered By: Aries Dueñas on 10-08-2023 Color (U) Dark yellow Yellow [facility] Complete Blood Count Auto Di ffon 10-08-2023 Basophils (Bld) [#/Vol] 0.1 10*3/uL Normal 0.0-0.2 [facility] Comment on above: Result Comment: PERF ORMED BY: [place] [address] PATHOLOGIST SILVICULTURE PROFESSOR DANYELL LIVINGSTON M.D. Performed By: #### U HCG, URDS, ADDONUAPLUS, CUU #### [facility] [address] Basophils/100 WBC (Bld) 0.7 % Normal . [facility] Comment on above: Performed By: #### U HCG, URDS, ADDONUAPLUS, CUU #### [facility] [address] Eosinophils (Bld) [#/Vol] 0.0 10*3/uL Normal 0.0-0.45 [facility] Comment on above: Performed By: #### U HCG, URDS, ADDONUAPLUS, CUU #### [facility] [address] Eosinophils/100 WBC (Bld) 0.3 % Normal . [facility] Comment on above: Performed By: #### U HCG, URDS, ADDONUAPLUS, CUU #### [address] Erythrocyte distribution width (RBC) [Ratio] 13.0 % Normal 11.9-15.3 [facility] Comment on above: Performed By: #### U HCG, URDS, ADDONUAPLUS, CUU #### [address] Hematocrit (Bld) [Volume fraction] 37.1 % Normal 34.0-46.4 [facility] Comment on above: Performed By: #### U HCG, URDS, ADDONUAPLUS, CUU #### [address] Hemoglobin (Bld) [Mass/Vol] 12.8 g/dL Normal 11.8-15.4 [facility] Comment on above: Performed By: #### U HCG, URDS, ADDONUAPLUS, CUU #### [address] Lymphocytes (Bld) [#/Vol] 3.7 10*3/uL Normal 1.00-4.8 [facility] Comment on above: Performed By: #### U HCG, URDS, ADDONUAPLUS, CUU #### [address] Lymphocytes/100 WBC (Bld) 38.7 % Normal . [facility] Comment on above: Performed By: #### U HCG, URDS, ADDONUAPLUS, CUU #### [address] MCH (RBC) [Entitic mass] 30.3 pg Normal 24.7-34.3 [facility] Comment on above: Performed By: #### U HCG, URDS, ADDONUAPLUS, CUU #### [address] MCV (RBC) [Entitic vol] 87.9 fL Normal 80-100 [facility] Comment on above: Performed By: #### U HCG, URDS, ADDONUAPLUS, CUU #### [address] [place] [address] [place] Mean Corpuscular HGB Conc 34.5 g/dL Normal 32.0-35.0 [facility] Comment on above: Performed By: #### U HCG, URDS, ADDONUAPLUS, CUU #### [facility] [address] Monocytes (Bld) [#/Vol] 0.6 10*3/uL Normal 0.0-0.8 [facility] Comment on above: Performed By: #### U HCG, URDS, ADDONUAPLUS, CUU #### [facility] [address] [place] [address] [place] Monocytes/100 WBC (Bld) 21.04 % High 0.00-20.00 [facility] Comment on above: Result Comment: For adults in ED, MDW > 20.0 may be associated with a higher risk of sepsis during the first 12 hrs of hospital admission Performed By: #### U HCG, URDS, ADDONUAPLUS, CUU #### [facility] [address] [place] [address] [place] Monocytes/100 WBC (Bld) 6.2 % Normal . [facility] Comment on above: Performed By: #### U HCG, URDS, ADDONUAPLUS, CUU #### [facility] [address] [place] [address] [place] Neutrophils (Bld) [#/Vol] 5.1 10*3/uL Normal 1.8-7.7 [facility] Comment on above: Performed By: #### U HCG, URDS, ADDONUAPLUS, CUU #### [facility] [address] [place] [address] [place] Neutrophils/100 WBC (Bld) 54.1 % Normal . [facility] Comment on above: Performed By: #### U HCG, URDS, ADDONUAPLUS, CUU #### [facility] [address] [place] [address] [place] NRBC% 0.2 /100{WBC} Normal 0-0.5 [facility] Comment on above: Performed By: #### U HCG, URDS, ADDONUAPLUS, CUU #### [facility] [address] Platelet mean volume (Bld) [Entitic vol] 8.6 fL Normal 6.3-10.7 [facility] Comment on above: Performed By: #### U HCG, URDS, ADDONUAPLUS, CUU #### [facility] [address] Platelets (Bld) [#/Vol] 371 10*3/uL Normal 150-450 [facility] Comment on above: Performed By: #### U HCG, URDS, ADDONUAPLUS, CUU #### [address] RBC (Bld) [#/Vol] 4.22 10*6/uL Normal 3.60-5.00 [facility] Comment on above: Performed By: #### U HCG, URDS, ADDONUAPLUS, CUU #### [address] WBC (Bld) [#/Vol] 9.5 10*3/uL Normal 3.8-11.6 [facility] Comment on above: Performed By: #### U HCG, URDS, ADDONUAPLUS, CUU #### [address] Comprehensive Metabolic Pane selam 10-08-2023 Albumin [Mass/Vol] 3.9 g/dL Normal 3.5-5.7 [facility] Comment on above: Performed By: #### U HCG, URDS, ADDONUAPLUS, CUU #### [address] Albumin/Globulin [Mass ratio] 1.1 {ratio} Normal [facility] Comment on above: Performed By: #### U HCG, URDS, ADDONUAPLUS, CUU #### [address] ALP [Catalytic activity/Vol] 57 U/L Normal 34-104 [facility] Comment on above: Performed By: #### U HCG, URDS, ADDONUAPLUS, CUU #### [facility] [address] ALT [Catalytic activity/Vol] 12 U/L Normal 7-52 [facility] Comment on above: Performed By: #### U HCG, URDS, ADDONUAPLUS, CUU #### [facility] [address] [place] [address] Anion gap [Moles/Vol] 10.1 mmol/L Normal 6.0-15.0 [facility] Comment on above: Performed By: #### U HCG, URDS, ADDONUAPLUS, CUU #### [address] AST [Catalytic activity/Vol] 16 U/L Normal 13-39 [facility] Comment on above: Performed By: #### U HCG, URDS, ADDONUAPLUS, CUU #### [facility] [address] [place] [address] Bilirubin [Mass/Vol] 0.3 mg/dL Normal 0.3-1.[address] [facility] Comment on above: Performed By: #### U HCG, URDS, ADDONUAPLUS, CUU #### [address] Calcium [Mass/Vol] 9.0 mg/dL Normal 8.6-10.3 [facility] Comment on above: Performed By: #### U HCG, URDS, ADDONUAPLUS, CUU #### [facility] [address] [place] [address] Chloride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 medications. Today, patient is requesting a refill of her Seroquel, is also requesting admission to [facility] for reestablishment of her psychiatric [...] and Complexity of Problems Differential Diagnosis: [] [facility] Data External documents reviewed: [] My EKG interpretation: [] My CT interpretation: [] My X-ray interpretation: [] My Ultrasound interpretation: [] Decision rules/scores evaluated: [] Discussed with: [] Treatment and Disposition ED Course: Patient presents ED with request for admission for psychiatric care at [address] at [facility]. Patient initially denying any symptoms, does report that she does not have her Seroquel in fact it was stolen. Nurse initially contacted [facility] who stated that patient as she was [...] patient. Final disposition will be per [facility] recommendation. Patient psychiatrist did speak with patient. [...] Oral, BID Follow-up With When Contact Information [facility] In 3 days 08/18/2023 EST Additional Instructions: Cris PENA In 3 days 08/18/2023 EST [address] [place] [address]- [facility] (1) Additional Instructions: Call the office of [...] Patient seen and evaluated by the physician assistant director of public works. Attending physician was present in the emergency department and supervised care. This visit was performed by both the physician and an APC. I performed all aspects of the MDM as documented. This report was transcribed using voice recognition software. Every effort was made to ensure accuracy, however, inadvertently computerized crematory attendant mistakes may be present. Appropriate healthcare PPE was used in evaluating this patient. The patient was placed in a mask. The healthcare provider was wearing mask, gloves, and utilizing proper hand hygiene. Al (more content not included)... Normal [facility] Comment on above: Result Comment: Elec tronically Signed By: Khai Taylor PA-C\.br\Date and Time Signed: 08/15/23 14:18 EDT\.br\Electronically Co-Signed By: Christian Locke MD\.br\Date and Time Co-Signed: 09/06/23 07:31 EST Loni 08-27-2023 CNPN Telephone (SPMETW) LA NENALORNA Russo ([id number]) 1985 F [place] Date Time Provider Department 08/27/23 AKBAR KOCH SPMETW During your visit today, we recorded the following information about you: Philip Mathis RN 08/27/2023 11:49 AM Signed Patient called AND stated she recently gotten bit by a Pitbull AND went to [facility] and got antibiotics but they refused [...] pregabalin (LYRICA) 100 mg capsule e- Medicine [address] [address] [facility] [phone] Patient [phone] (home) [phone] (cell) Gaurav Torrez OCCA 08/27/2023 2:23 PM [...] Patient is calling for her refill. Philip Matihs RN 08/31/2023 7:50 AM Signed LVM for patient that Lyrica prescription for refill on 08/28/2023. 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 Reason for Visit: Appointment [...] Status:Closed by PHILIP MATHIS on 08/27/23 Normal [facility] Consent for Treatmenton Consent for Treatment [id number] .00TIFF Normal [facility] Discharge Instructionson Discharge Instructions [id number] .00TIFF Normal [facility] ED Clinical Summaryon 2022 ED Clinical Summary [address] [place] [id number] ED Clinical Summary Person Information Name: LORNA DEUTSCH/[facility] Age: 38 Years : 1985 Sex: Female Language: Bahamian PCP: Cris PENA CNP Marital Status: Visit [...] 08/15/2023 14:20:09 08/15/2023 14:20:09 08/15/2023 14:20:09 ADDRESS: [address] [place] [address] [address] [place] [phone] PHYS DOC NOTES: MEDICAL INFORMATION: Prescriptions Given: [...] Antipsychotic Medicines Follow up: With: Address: When: [facility] In 3 days 08/18/2023 With: Address: When: Cris PENA [address] [phone] [facility] (1) In 3 days 08/18/2023 Comments: Call [...] refill; Evaluation by psychiatric service required Normal [facility] ED Note-Nursingon 08-15-2023 ED Note-Nursing Patient informed jessica t Dr. Shields will send refill of meds to pharmacy . Patient to RN station asking if Doctor will refill Lyrica medication - EZIO Ridley made aware and denies request. Patient notified to contact provider who prescribed med to get a refill. Normal [facility] ED Note-Nursing 1054: Adeola vicente states patient called yesterday regarding medication refill, Hope cinthia states [facility] but per the physician, patient has to get outpatient drug screen at [address] and can go Thursday morning at 8am to speak with the emergency crisis clinician. Patient denying HI/SI at this time. 1056: Patient notified of conversation. Patient states she is aware of the need for the drug screen but has not had a ride to facility. 1100: Patient comes to nurses station stating she is now experiencing extreme depression and hearing voices so I need to speak with a crisis clinician 1102: Adeola vicente called again to notify of changes and states She can sit tight and well have someone call to evaluate her . EZIO Ridley made aware. Normal [facility] ED Note-Physicianon 08-15-20 ED Note-Physician [...] she does follow-up with Dr. Shields of [facility] mental health. Review of Systems [...] and Complexity of Problems Differential Diagnosis: [] [facility] Data External documents reviewed: [] My [...] to this, I did reach out to [facility] pharmacy, with your pharmacy and discussed [...] BID, # 6 tab(s), Refills(s) 0, Pharmacy: [facility], 167.6, cm, 08/14/23 16:07:00 EDT, Height/Length Dosing, 75.2, kg, 08/14/23 16:07:00 EDT, Weight Dosing Disposition Plan Patient Discharge Condition stable Discharge Disposition to home Discharge Prescription List Prescriptions ClonazePAM 0.5 mg Tab, 0.5 mg= 1 tab(s), Oral, BID Follow-up With When Contact Information [facility] In 3 days 08/17/2023 EST Additional Instructions: Cris PENA In 3 days 08/17/2023 EST [address] [place] [address] Business (1) Additional Instructions: Follow-up with your primary care provider in 3 to 5 days. If symptoms worsen, do not improve, or new symptoms arise please report back to emergency department for further evaluation. Attestation Patient seen and evaluated by the physician assistant director of public works. Attending physician was present in the emergency department and supervised care. This visit was performed by both the physician and an APC. I performed all aspects of the MDM as documented. This report was transcribed using voice recognition software. Every effort was made to ensure accuracy, however, inadvertently computerized crematory attendant mistakes may be present. Appropriate healthcare PPE was used in evaluating this patient. The patient was placed in a mask. The healthcare provider was wearing mask, gloves, and utilizing proper hand hygiene. All equip (more content not included)... Normal [facility] Comment on above: Result [...] these instructions at home: ? Take other mflw-yil-xnnxtdg and prescription medicines only as told by [...] the National Suicide Prevention Lifeline at or 832. This is open 24 hours a day. ? Text the Crisis Text Line at 902523. These symptoms may be an emergency. Get help right away. Call 911. ? Do not wait to see if the symptoms will go away. ? Do not drive yourself to the hospital. Summary ? Antipsychotic medicines are used to treat lifelong mental illness that cause a severe loss of contact with reality. ? Antipsychotic medicines help to prevent (more content not included)... Normal [facility] ED Patient Summaryon 023 ED Patient Summary [address] [address] Patient Discharge Instructions Person Information Name: LORNA DEUTSCH Age: 38 Years Arrival Date: 08/15/2023 10:33:31 Discharge Diagnosis: Encounter for medication refill; Evaluation by psychiatric service required Primary Care Physician: Cris PENA CNP Provider Information Primary Provider: Advanced Microbiology Professor:Khai Taylor PA-C The exam and treatment you received in the Emergency Department were for an urgent problem and are not intended as complete care. It is important that you follow up with a doctor, nurse practitioner, or physician?s assistant director of public works for ongoing care. If your symptoms become worse or you do not improve as expected and you are unable to reach your usual health care provider, you should return to the Emergency Department. We are available 24 hours a day. LORNA DEUTSCH has been given the following list of patient education materials, prescriptions and follow-up instructions: Follow-up Instructions: With: Address: When: [facility] In 3 days 08/18/2023 With: Address: When: Cris PENA [address] [place] [address] [facility] () In 3 days 08/18/2023 Comments: Call [...] opioids can be used to help relieve nizbpxhd-nu-brwqji pain and are often prescribed following a [...] prescription o (more content not included)... Normal [facility] U Drug Screenon 08-15-2023 Benzodiazepines Ql (U) Positive Abnormal Negative [facility] Comment on above: Result Comment: Nega tive Cutoff: <200 ng/mL Critical Result UD_BENZ:POS Called to DIVYA MACHADO AT by AMENA ANGEL And Read Back For Confirmation at: 08/15/2023 12:55:18\Unconfirmed by alternate method\Results verified by repeat analysis\No confirmation requested by Physican Performed By: #### 2 [id number] ####[address] [place] [address] Amphetamines Screen method >1000 ng/mL Ql (U) Negative Normal Negative [facility] Comment on above: Result Comment: Nega tive Cutoff: <1000 ng/mL Performed By: #### 2 [id number] ####[address] [address] Barbiturates Screen Ql (U) Negative Normal Negative [facility] Comment on above: Result Comment: Nega tive Cutoff: <200 ng/mL Performed By: #### 2 [id number] ####[address] [place] [address] Cocaine Ql (U) Negative Normal Negative [facility] Comment on above: Result Comment: Nega tive Cutoff: <300 ng/mL Performed By: #### 2 [id number] ####[address] [place] [address] Opiates Screen Ql (U) Negative Normal Negative [facility] Comment on above: Result Comment: Nega tive Cutoff: <300 ng/mL Performed By: #### 2 [id number] ####[facility] [address] [place], [place] [id number] Phencyclidine Screen method >25 ng/mL Ql (U) Negative Normal Negative [facility] Comment on above: Result Comment: Nega tive Cutoff: <25 ng/mL These drug screen results are to be used for medical (i.e., treatment) purposes only. Unconfirmed drug screening results must not be used for non-medical purposes (e.g., employment testing, legal testing). Performed By: #### 2 [id number] ####[facility] [address] [place] [address] Tetrahydrocannabinol Screen method >50 ng/mL Ql (U) Negative Normal Negative [facility] Comment on above: Result Comment: Nega tive Cutoff: <50 ng/mL Performed By: #### 2 [id number] ####[facility] [address] [place] [address] Consent for Treatmenton Consent for Treatment [id number] .00TIFF Normal [facility] Discharge Instructionson Discharge Instructions [id number]# [id number] Normal [facility] ED Clinical Summaryon 2022 ED Clinical Summary [address] [address] ED Clinical Summary Person Information Name: LORNA DEUTSCH/[facility] Age: 38 Years : 1985 Sex: Female Language: Bahamian PCP: Cris PENA CNP Marital Status: Visit [...] 08/14/2023 16:41:18 08/14/2023 16:41:18 08/14/2023 16:41:18 ADDRESS: [address] [place] [phone] PHYS DOC NOTES: MEDICAL INFORMATION: Prescriptions Given: New Medications [facility], [address] [place], [place] [id number], [phone] clonazepam (ClonazePAM 0.5 mg Tab) 1 Tablets [...] INFORMATION: Instructions: Follow up: With: Address: When: [facility] In 3 days 08/17/2023 With: Address: When: Cris PENA [address] [place] [address] [facility] ([facility] In 3 days 08/17/2023 Comments: Follow-up with your primary care provider in 3 to 5 days. If symptoms worsen, do not improve, or new symptoms arise please report back to emergency department for further evaluation. DIAGNOSIS: Medication refill Normal [facility] ED Patient Education Noteon 08-14-2023 ED Patient Education Note Normal [facility] ED Patient Summaryon 023 ED Patient Summary [address] [address] Patient Discharge Instructions Person Information Name: LORNA DEUTSCH Age: 38 Years Arrival Date: 08/14/2023 15:54:23 Discharge Diagnosis: Medication refill Primary Care Physician: Cris PENA CNP Provider Information Primary Provider: Christian Locke MD Advanced Microbiology Professor:None The exam and treatment you received in the Emergency Department were for an urgent problem and are not intended as complete care. It is important that you follow up with a doctor, nurse practitioner, or physician?s assistant director of public works for ongoing care. If your symptoms become worse or you do not improve as expected and you are unable to reach your usual health care provider, you should return to the Emergency Department. We are available 24 hours a day. LORNA DEUTSCH has been given the following list of patient education materials, prescriptions and follow-up instructions: Follow-up Instructions: With: Address: When: [facility] In 3 days 08/17/2023 With: Address: When: Cris PENA [address] [place], [place] [phone] [place] [address] In 3 days 08/17/2023 Comments: Follow-up with [...] opioids can be used to help relieve chcureaa-jk-yczziv pain and are often prescribed following a [...] about the (more content not included)... Normal [facility] Consent for Treatmenton Consent for Treatment [id number] .00TIFF Normal [facility] Discharge Instructionson Discharge Instructions [id number] .00TIFF Normal [facility] ED Clinical Summaryon 2022 ED Clinical Summary [address] [address] ED Clinical Summary Person Information Name: LORNA DEUTSCH/[place] Age: 38 Years : 1985 Sex: Female Language: Bahamian PCP: Cris PENA CNP Marital Status: Visit [...] 08/13/2023 14:21:51 08/13/2023 14:21:51 08/13/2023 14:21:51 ADDRESS: [address] [place] [phone] [facility] DOC NOTES: MEDICAL INFORMATION: Prescriptions Given: Medications [...] Follow up: With: Address: When: Cris PENA [address] [place], [place] [phone] [employer] (1) In 3 days 08/16/2023 DIAGNOSIS: Anxiety Normal [facility] ED Note-Physicianon 08-13-20 ED Note-Physician [...] Information Cris PENA In 3 days 08/16/[address] [address] Business (1) Additional Instructions: Patient Education Managing Anxiety, Adult Attestation Patient seen and evaluated by the physician assistant director of public works. Attending physician was present in the emergency department and supervised care. This visit was performed by both the physician and an APC. I performed all aspects of the MDM as documented. This report was transcribed using voice recognition software. Every effort was made to ensure accuracy, however, inadvertently computerized crematory attendant mistakes may be present. Appropriate healthcare PPE [...] High Risk, 02/14/2014 Substance Abuse - Denies [facility] (more content not included)... Normal [facility] Comment on above: Result [...] Lifestyle ? (more content not included)... Normal [facility] ED Patient Summaryon 023 ED Patient Summary [place] [id number] Patient Discharge Instructions Person Information Name: LORNA DEUTSCH Age: 38 Years Arrival Date: 08/13/2023 13:57:57 Discharge Diagnosis: Anxiety Primary Care Physician: Cris PENA CNP Provider Information Primary Provider: Derrell Orantes DO Advanced Microbiology Professor:Ricco Hoang PA-C The exam and treatment you received in the Emergency Department were for an urgent problem and are not intended as complete care. It is important that you follow up with a doctor, nurse practitioner, or physician?s assistant director of public works for ongoing care. If your symptoms become [...] With: Address: When: Cris PENA [address] [place] [address] Business (1) In 3 days 08/16/2023 In the event that this physician does not participate in your insurance network, please consult with your insurance company to find a nearby participating provider. Patient Education Materials: Managing Anxiety, Adult A MESSAGE TO ALL PATIENTS REGARDING OPIOIDS PRESCRIPTION OPIOIDS: WHAT YOU NEED TO KNOW Prescription opioids can be used to help relieve kwcqwleq-mw-yccvro pain and are often prescribed following a [...] be struggling with addiction, tell your health primary care pediatrician and ask for guidance or call SAMHSA?S National Helpline at 3-570-931-HELP. v Source: US Department of Health (more content not included)... [facility] Consent for Treatmenton 2 Consent for Treatment [id number] .[id number] Normal [facility] Discharge Instructionson Discharge Instructions [id number] 1.00TIFF Normal [facility] ED Clinical Summaryon 2022 ED Clinical Summary [place] [id number] ED Clinical Summary Person Information Name: LORNA DEUTSCH[place] Age: 38 Years : 1985 Sex: Female Language: Bahamian PCP: Cris PENA CNP Marital Status: Visit [...] 08/07/2023 06:53:52 08/07/2023 06:53:52 08/07/2023 06:53:52 ADDRESS: [address] [place] [address] [address] [place] [phone] PHYS DOC NOTES: MEDICAL INFORMATION: Prescriptions Given: [...] up: With: Address: When: [employer] [facility] [phone] In 3 days 08/10/2023 With: Address: When: Cris PENA [address], [place] [id number] [employer] In 3 days 08/10/2023 Comments: Please follow-up with your primary care doctor next 2 to 3 days for further evaluation and management. Return to the ED for any new or worsening symptoms. DIAGNOSIS: Anxiety; Methamphetamine use Normal [facility] ED Note-Physicianon 08-07-20 ED Note-Physician [...] go to sleep with her mother or ilqgom-oz-pbh however they would not let her in [...] and Complexity of Problems Differential Diagnosis: [] [facility] Data External documents reviewed: [] My [...] audiovisual hallucinations. Patient was offered resources with [employer] however she declined. Patient is given a dose of Ativan in the ED. patient remained stable in the ED. Patient is discharged. She is given information for lets [employer] real, does not wish to establish with [...] With When Contact Information [facility] [phone] In 3 days 08/10/2023 EDT Additional Instructions: Cris PENA In 3 days 08/10/2023 EDT [address] [place] [address]- [facility] (1) Additional Instructions: Please follow-up with your [...] 3 refills (more content not included)... Normal [facility] Comment on above: Result [...] at home: (more content not included)... Normal [facility] ED Patient Summaryon 023 ED Patient Summary [address] [address] Patient Discharge Instructions Person Information Name: LORNA DEUTSCH Age: 38 Years Arrival Date: 08/07/2023 02:33:18 Discharge Diagnosis: Anxiety; Methamphetamine use Primary Care Physician: Cris PENA CNP Provider Information Primary Provider: Norma Dietz DO Advanced Microbiology Professor:None The exam and treatment you received in the Emergency Department were for an urgent problem and are not intended as complete care. It is important that you follow up with a doctor, nurse practitioner, or physician?s assistant director of public works for ongoing care. If your symptoms become [...] Instructions: With: Address: When: [facility] [employer] [facility] [phone] In 3 days 08/10/2023 With: Address: When: Cris MAGALIE [address], [place] [id number] [facility] (9) In 3 days 08/10/2023 Comments: Please follow-up [...] opioids can be used to help relieve tljrybjz-pa-vtzbns pain and are often prescribed following a [...] to vilma (more content not included)... Normal [facility] Patient Correspondenceon Patient Correspondence [id number] .[id number] Normal [facility] Patient Letter FTMCon 2022 Patient Letter [facility] [address] [place] [address] July 14, 2023 LORNA DEUTSCH [address] [place] [address] : 1985 To whom it may concern, [...] office with any questions or concerns at [phone]. 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 Comment on above: Last dose: - Valproic Acid (in house)on 0 07-06-2023 Valproic Acid (in house) 40.5 ug/mL Low 50.0-100.0 [facility] Comment on above: Result Comment: Last dose: - PERFORMED BY: [place] [address] PATHOLOGIST SILVICULTURE PROFESSOR DANYELL LIVINGSTON M.D. Performed By: #### L IPID, [id number], TSH3 wRFLX #### [address] Cholesterol [Mass/volume] in Serum or PlasmaOrdered By: Bobo Shields on 07-03-2023 Cholesterol [Mass/Vol] 179 mg/dL 140-200 [facility] Comment on above: Chol less than 200 m g/dl low riskChol 201-239 mg/dl borderline riskChol 240 mg/dl and greater high risk Cholesterol in LDL Calc [Mas s/Vol]Ordered By: Bobo Shields on 07-03-2023 Cholesterol in LDL [Mass/Vol] 111 mg/dL 0-100 [facility] Comment on above: LDL ATP III CLASSIFI CATIONLDL less than 100 mg/dL OptimalLDL 100-129 mg/dL Near or above optimalLDL 130-159 mg/dL Borderline highLDL 160-189 mg/dL HighLDL greater than 189 mg/dL Very high Cholesterol in VLDL Calc [Ma ss/Vol]Ordered By: Bobo Shields on 07-03-2023 Cholesterol in VLDL [Mass/Vol] 27 mg/dL [facility] ECG 12 lead ECGon 07-03-2023 ECG 12 lead ECG [facility] [place] [address] Electrocardiograph Report Signed Patient: Lorna Deutsch MR#: [id number] 98 : 1985 Acct:[id number] Age/Sex: 38 / F ADM Date: 07/02/23 Loc: Room: [address] [place] [address] Type: ADM IN Attending Dr: Bobo Shields [...] : 429 ms Sinus bradycardia with short DE Otherwise normal ECG When compared with ECG of 14-JAN-2023 07:10, No significant change was found Confirmed by HUBER RAMOS FACC, BRITNI ([id number]) on 07/03/2023 12:33:59 PM Referred By: Electronically Signed By:BRITNI NGO MD FACC Transcribed By: MUS Signed By Britni Ngo MD, FACC 07/03/23 1234 Normal [facility] Lipid Panelon 07-03-2023 Cholesterol [Mass/Vol] 179 mg/dL Normal 140-200 [facility] Comment on above: Result Comment: Chol less than 200 mg/dl low risk Chol 201-239 mg/dl borderline risk Chol 240 mg/dl and greater high risk Performed By: #### L IPID, [id number], TSH3 wRFLX #### [facility] [address] Cholesterol in HDL [Mass/Vol] 40 mg/dL Normal 23-92 [facility] Comment on above: Result Comment: HDL CHOL ATP-III CLASSIFICATION Cardiovascular Risk HDL > or equal to 60 mg/dL LOW HDL < 40 mg/dL HIGH Performed By: #### L IPID, [id number], TSH3 wRFLX #### [facility] [address] [place], [place] [address] Cholesterol.total/Andra sterol in HDL [Mass ratio] 4.5 {ratio} Normal <5.0 [facility] Comment on above: Performed By: #### L IPID, [id number], TSH3 wRFLX #### [facility] [address] [place] [id number] [place] LDL Cholesterol,Calculated 111 mg/dL High 0-100 [facility] Comment on above: Result Comment: LDL ATP III CLASSIFICATION LDL less than 100 mg/dL Optimal LDL 100-129 mg/dL Near or above optimal LDL 130-159 mg/dL Borderline high LDL 160-189 mg/dL High LDL greater than 189 mg/dL Very high Performed By: #### L IPID, [id number], TSH3 wRFLX #### [facility] [address] [place] [address] [place] Triglyceride w/Reflex 138 mg/dL Normal 0-149 [facility] Comment on above: Result Comment: TRIG ATP III CLASSIFICATION TRIG less than 150 mg/dL Normal TRIG 150-199 mg/dL Borderline high TRIG 200-500 mg/dL High TRIG greater than 500 mg/dL Very high Standard traceable to the Center for Disease Conrtrol and Prevention (CDC) test method. Performed By: #### L IPID, [id number], TSH3 wRFLX #### [facility] [address] VLDL CHOLESTEROL 27 mg/dL Normal [facility] Comment on above: Performed By: #### L IPID, [id number], TSH3 wRFLX #### [facility] [address] Serum or plasma high density lipoprotein (HDL) cholesterol measurementOrdered By: Bobo Shields on 07-03-2023 Cholesterol in HDL [Mass/Vol] 40 mg/dL [facility] Comment on above: HDL CHOL ATP-III CLA SSIFICATION Cardiovascular RiskHDL > or equal to 60 mg/dL LOWHDL < 40 mg/dL HIGH Serum or plasma total choles terol/high density lipoprotein (HDL) cholesterol mass ratOrdered By: Bobo Shields on 07-03-2023 Cholesterol.total/Andra sterol in HDL [Mass ratio] 4.5 {ratio} <5.0 [facility] Thyroid Stim Hormone w/Rflxo n 07-03-2023 Thyroid Stim Hormone w/Rflx 5.18 u[iU]/mL Normal 0.45-5.33 [facility] Comment on above: Performed By: #### L IPID, [id number], TSH3 wRFLX #### [facility] [address] [place] [address] Thyrotropin [Units/volume] i n Serum or PlasmaOrdered By: Bobo Shields on 07-03-2023 TSH Qn 5.18 m[IU]/L 0.45-5.33 [facility] Triglyceride [Mass/volume] i n Serum or PlasmaOrdered By: Bobo Shields on 07-03-2023 Triglyceride [Mass/Vol] 138 mg/dL 0-149 [facility] Comment on above: TRIG ATP III CLASSIF ICATIONTRIG less than 150 mg/dL NormalTRIG 150-199 mg/dL Borderline highTRIG 200-500 mg/dL High TRIG greater than 500 mg/dL Very highStandard traceable to the Center for Disease Conrtrol and Prevention (CDC) test method. Vitamin D 25 Hydroxy Totalon 07-03-2023 Vitamin D 25 Hydroxy Total 17.2 ng/mL Low 30-100 [facility] Comment on above: Result Comment: KAVON MIN D STATUS 25([place])VITAMIN D RANGE (ng/mL) Deficient <20 Insufficient 20 to <30 Sufficient 30 to 100 Reference: Stephanie Guardado, Ro CORONEL et al. Evaluation,treatment, and prevention of vitamin D deficiency; an Endocrine Society clinical practice guideline. JCEM. 2010; 96(7):1911-30. PERFORMED BY: [place] [address] PATHOLOGIST SILVICULTURE PROFESSOR DANYELL LIVINGSTON M.D. Performed By: #### L IPID, [id number], TSH3 wRFLX #### [address] Vitamin D+Metabolites [Mass/ volume] in Serum or PlasmaOrdered By: Bobo Shields on 07-03-2023 Vitamin D+Metabolites [Mass/Vol] 17.2 ng/mL 30-100 [facility] Comment on above: VITAMIN D STATUS 25( [place])VITAMIN D RANGE (ng/mL) Deficient <20 Insufficient 20 to <30Sufficient 30 to 100Reference: Stephanie Guardado, Ro CORONEL, et al. Evaluation,treatment, and prevention of vitamin D deficiency; an Endocrine Society clinical practice guideline. JCEM. 2010; 96(7):1911-30. Loni 06-17-2023 CNPN Telephone (PAINTW) LORNA DEUTSCH ([id number]) 1985 F [place] Date Time Provider Department [...] N/A Person calling: self Call patient at: [phone] Was an appointment scheduled: Gaurav Obrien [facility] 06/17/2023 1:34 PM Signed Please advise thank you CLARA Aguilar June 17, 2023 1:34 PM Marvin Sanchez 06/18/2023 1:59 PM Signed The patient called back to ask if the script could be sent to another pharmacy. 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 [...] Status:Closed by GAURAV TORREZ on 06/17/23 Normal [facility] Alanine aminotransferase [En zymatic activity/volume] in Serum or PlasmaOrdered By: Luis Armando Hendrix on 06-08-2023 ALT [Catalytic activity/Vol] 7 U/L 7-52 [facility] Albumin [Mass/volume] in Ser um or Plasma by Bromocresol green (BCG) dye binding methoOrdered By: Luis Armando Hendrix on 06-08-2023 Albumin BCG dye [Mass/Vol] 3.6 g/dL 3.5-5.7 [facility] Alkaline phosphatase [Enzyma tic activity/volume] in Serum or PlasmaOrdered By: Luis Armando Hendrix on 06-08-2023 ALP [Catalytic activity/Vol] 35 U/L 34-104 [facility] Amphetamine Screen Ql (U)Ord ered By: Luis Armando Hendrix on 06-08-2023 Amphetamines Ql (U) Negative Negative [facility] Aspartate aminotransferase [ Enzymatic activity/volume] in Serum or PlasmaOrdered By: Luis Armando Hendrix on 06-08-2023 AST [Catalytic activity/Vol] 9 U/L 13-39 [facility] Automated erythrocytes count in urine sediment (number/area)Ordered By: Luis Armando Hendrix on 06-08-2023 RBC Auto (Urine sed) [#/Area] 1-2 [HPF] 0-4 [facility] Automated leukocytes count i n urine sediment (number/area)Ordered By: uLis Armando Hendrix on 06-08-2023 WBC Auto (Urine sed) [#/Area] Innumerable [HPF] 0-4 [facility] Barbiturates [Presence] in U rine by Screen methodOrdered By: Luis Armando Hendrix on 06-08-2023 Barbiturates Screen Ql (U) Negative Negative [facility] Basophils Auto (Bld) [#/Vol] Ordered By: Luis Armando Hendrix on 06-08-2023 Basophils (Bld) [#/Vol] 0.0 10*3/uL 0.0-0.2 [facility] Basophils/100 WBC Auto (Bld) Ordered By: Luis Armando Hendrix on 06-08-2023 Basophils/100 WBC (Bld) 0.7 % . [facility] Benzodiazepines Screen Ql (U )Ordered By: Luis Armando Hendrix on 06-08-2023 Benzodiazepines Ql (U) Negative Negative [facility] Benzoylecgonine [Presence] i n Urine by Screen methodOrdered By: Luis Armando Hendrix on 06-08-2023 Benzoylecgonine Screen Ql (U) Negative Negative [facility] Bilirubin Test strip Ql (U)O rdered By: Luis Armando Hendrix on 06-08-2023 Bilirubin Ql (U) Negative Negative [facility] Bilirubin.total [Mass/volume ] in Serum or PlasmaOrdered By: Luis Armando Hendrix on 06-08-2023 Bilirubin [Mass/Vol] 0.3 mg/dL 0.3-1.[address] [facility] Calcium [Mass/volume] in Ser um or PlasmaOrdered By: Luis Armando Hendrix on 06-08-2023 Calcium [Mass/Vol] 8.9 mg/dL 8.6-10.3 [facility] Cannabinoids [Presence] in U rine by Screen methodOrdered By: Luis Armando Hendrix on 06-08-2023 Cannabinoids Screen Ql (U) Negative Negative [facility] Comment on above: These are unconfirme d results and should not be used for legal purposes. Drug Cut-Off Concentration: AMPH 1000 ng/mL SARA 200 ng/mL MARTÍNEZ 200 ng/mL COCM 300 ng/mL OP 300 ng/mL PCP 25 ng/mL THC 20 ng/mL Carbon dioxide, total [Moles /volume] in Serum or PlasmaOrdered By: Luis Armando Hendrix on 06-08-2023 CO2 [Moles/Vol] 31.1 mmol/L 21.0-31.0 [facility] Chloride [Moles/volume] in S maris or PlasmaOrdered By: Luis Armando Hendrix on 06-08-2023 Chloride [Moles/Vol] 106 mmol/L 98-[address] [facility] Color Auto (U)Ordered By: Angelic Hendrix on 06-08-2023 Color (U) Yellow Yellow [facility] Complete Blood Count Auto Di ffon 06-08-2023 Basophils (Bld) [#/Vol] 0.0 10*3/uL Normal 0.0-0.2 [facility] Comment on above: Result Comment: PERF ORMED BY: [place] [address] PATHOLOGIST SILVICULTURE PROFESSOR DANYELL LIVINGSTON M.D. Performed By: #### U HCG, URDS, ADDONUAPLUS, CUU #### [facility] [address] Basophils/100 WBC (Bld) 0.7 % Normal . [facility] Comment on above: Performed By: #### U HCG, URDS, ADDONUAPLUS, CUU #### [facility] [address] Eosinophils (Bld) [#/Vol] 0.1 10*3/uL Normal 0.0-0.45 [facility] Comment on above: Performed By: #### U HCG, URDS, ADDONUAPLUS, CUU #### [facility] [address] [place] [address] [place] Eosinophils/100 WBC (Bld) 2.2 % Normal . [facility] Comment on above: Performed By: #### U HCG, URDS, ADDONUAPLUS, CUU #### [facility] [address] Erythrocyte distribution width (RBC) [Ratio] 13.5 % Normal 11.9-15.3 [facility] Comment on above: Performed By: #### U HCG, URDS, ADDONUAPLUS, CUU #### [facility] [address] [place] [address] Hematocrit (Bld) [Volume fraction] 39.0 % Normal 34.0-46.4 [facility] Comment on above: Performed By: #### U HCG, URDS, ADDONUAPLUS, CUU #### [address] Hemoglobin (Bld) [Mass/Vol] 13.0 g/dL Normal 11.8-15.4 [facility] Comment on above: Performed By: #### U HCG, URDS, ADDONUAPLUS, CUU #### [address] Lymphocytes (Bld) [#/Vol] 3.0 10*3/uL Normal 1.00-4.8 [facility] Comment on above: Performed By: #### U HCG, URDS, ADDONUAPLUS, CUU #### [address] Lymphocytes/100 WBC (Bld) 58.8 % Normal . [facility] Comment on above: Performed By: #### U HCG, URDS, ADDONUAPLUS, CUU #### [address] MCH (RBC) [Entitic mass] 30.0 pg Normal 24.7-34.3 [facility] Comment on above: Performed By: #### U HCG, URDS, ADDONUAPLUS, CUU #### [address] MCV (RBC) [Entitic vol] 89.7 fL Normal 80-100 [facility] Comment on above: Performed By: #### U HCG, URDS, ADDONUAPLUS, CUU #### [address] Mean Corpuscular HGB Conc 33.4 g/dL Normal 32.0-35.0 [facility] Comment on above: Performed By: #### U HCG, URDS, ADDONUAPLUS, CUU #### [facility] [address] [place] [address] [place] Monocytes (Bld) [#/Vol] 0.5 10*3/uL Normal 0.0-0.8 [facility] Comment on above: Performed By: #### U HCG, URDS, ADDONUAPLUS, CUU #### [facility] [address] [place] [address] [place] Monocytes/100 WBC (Bld) 19.94 % Normal 0.00-20.00 [facility] Comment on above: Performed By: #### U HCG, URDS, ADDONUAPLUS, CUU #### [facility] [address] [place] [address] Monocytes/100 WBC (Bld) 9.4 % Normal . [facility] Comment on above: Performed By: #### U HCG, URDS, ADDONUAPLUS, CUU #### [facility] [address] [place] [address] Neutrophils (Bld) [#/Vol] 1.5 10*3/uL Low 1.8-7.7 [facility] Comment on above: Performed By: #### U HCG, URDS, ADDONUAPLUS, CUU #### [facility] [address] [place] [address] [place] Neutrophils/100 WBC (Bld) 28.9 % Normal . [facility] Comment on above: Performed By: #### U HCG, URDS, ADDONUAPLUS, CUU #### [facility] [address] [place] [address] [place] NRBC% 0.1 /100{WBC} Normal 0-0.5 [facility] Comment on above: Performed By: #### U HCG, URDS, ADDONUAPLUS, CUU #### [facility] [address] [place] [address] Platelet mean volume (Bld) [Entitic vol] 9.2 fL Normal 6.3-10.7 [facility] Comment on above: Performed By: #### U HCG, URDS, ADDONUAPLUS, CUU #### [facility] [address] Platelets (Bld) [#/Vol] 164 10*3/uL Normal 150-450 [facility] Comment on above: Performed By: #### U HCG, URDS, ADDONUAPLUS, CUU #### [facility] [address] RBC (Bld) [#/Vol] 4.35 10*6/uL Normal 3.60-5.00 [facility] Comment on above: Performed By: #### U HCG, URDS, ADDONUAPLUS, CUU #### [facility] [address] WBC (Bld) [#/Vol] 5.1 10*3/uL Normal 3.8-11.6 [facility] Comment on above: Performed By: #### U HCG, URDS, ADDONUAPLUS, CUU #### [facility] [address] [place] [address] Comprehensive Metabolic Pane selam 06-08-2023 Albumin [Mass/Vol] 3.6 g/dL Normal 3.5-5.7 [facility] Comment on above: Performed By: #### U HCG, URDS, ADDONUAPLUS, CUU #### [facility] [address] [place] [address] Albumin/Globulin [Mass ratio] 1.2 {ratio} Normal [facility] Comment on above: Performed By: #### U HCG, URDS, ADDONUAPLUS, CUU #### [facility] [address] [place] [address] ALP [Catalytic activity/Vol] 35 U/L Normal 34-104 [facility] Comment on above: Performed By: #### U HCG, URDS, ADDONUAPLUS, CUU #### [facility] [address] ALT [Catalytic activity/Vol] 7 U/L Normal 7-52 [facility] Comment on above: Performed By: #### U HCG, URDS, ADDONUAPLUS, CUU #### [facility] [address] [place] [address] Anion gap [Moles/Vol] 6.7 mmol/L Normal 6.0-15.0 [facility] Comment on above: Performed By: #### U HCG, URDS, ADDONUAPLUS, CUU #### [facility] [address] [place] [address] AST [Catalytic activity/Vol] 9 U/L Low 13-39 [facility] Comment on above: Performed By: #### U HCG, URDS, ADDONUAPLUS, CUU #### [address] Bilirubin [Mass/Vol] 0.3 mg/dL Normal 0.3-1.[address] [facility] Comment on above: Performed By: #### U HCG, URDS, ADDONUAPLUS, CUU #### [address] Calcium [Mass/Vol] 8.9 mg/dL Normal 8.6-10.3 [facility] Comment on above: Performed By: #### U HCG, URDS, ADDONUAPLUS, CUU #### [address] Chloride [Moles/Vol] 106 mmol/L Normal 98-[address] [facility] Comment on above: Performed By: #### U HCG, URDS, ADDONUAPLUS, CUU #### [address] CO2 [Moles/Vol] 31.1 mmol/L High 21.0-31.0 [facility] Comment on above: Performed By: #### U HCG, URDS, ADDONUAPLUS, CUU #### [address] Creatinine [Mass/Vol] 0.66 mg/dL Normal 0.60-1.20 [facility] Comment on above: Performed By: #### U HCG, URDS, ADDONUAPLUS, CUU #### [facility] [address] [place] [address] [place] Creatinine Clr Calc Pharmacy 104.00 Normal [facility] Comment on above: Result Comment: PERF ORMED BY: [place] [address] PATHOLOGIST SILVICULTURE PROFESSOR DANYELL LIVINGSTON M.D. Performed By: #### U HCG, URDS, ADDONUAPLUS, CUU #### [facility] [address] GFR/1.73 sq M.predicted MDRD (S/P/Bld) [Vol rate/Area] mL/min/{1.73_m2} [facility] Comment on above: Performed By: #### U HCG, URDS, ADDONUAPLUS, CUU #### [facility] [address] Globulin (S) [Mass/Vol] 2.9 g/dL Normal [facility] Comment on above: Performed By: #### U HCG, URDS, ADDONUAPLUS, CUU #### [address] Glucose [Mass/Vol] 90 mg/dL Normal 70-100 [facility] Comment on above: Result Comment: [place] Glucose Reference Range is dependent on time and content of last meal. Glucose of more than 200 mg/dL in a nonstressed, ambulatory subject supports the diagnosis of Diabetes Mellitus. ADA recommended reference range Performed By: #### U HCG, URDS, ADDONUAPLUS, CUU #### [facility] [address] [place] [address] Potassium [Moles/Vol] 3.8 mmol/L Normal 3.5-5.1 [facility] Comment on above: Performed By: #### U HCG, URDS, ADDONUAPLUS, CUU #### [facility] [address] Protein [Mass/Vol] 6.5 g/dL Normal 6.4-8.9 [facility] Comment on above: Performed By: #### U HCG, URDS, ADDONUAPLUS, CUU #### [facility] [address] Sodium [Moles/Vol] 140 mmol/L Normal 136-145 [facility] Comment on above: Performed By: #### U HCG, URDS, ADDONUAPLUS, CUU #### [facility] [address] Urea nitrogen [Mass/Vol] 17 mg/dL Normal 7-25 [facility] Comment on above: Performed By: #### U HCG, URDS, ADDONUAPLUS, CUU #### [facility] [address] [place] [address] Creatinine [Mass/volume] in Serum or PlasmaOrdered By: Luis Armando Hendrix on 06-08-2023 Creatinine [Mass/Vol] 0.66 mg/dL 0.60-1.20 [facility] Dipstick and Microscopicon 0 06-08-2023 Appearance (U) Turbid Critically abnormal Clear [facility] Comment on above: Order Comment: Name Collection Type:: Clean-Voided Midstream Performed By: #### U HCG, URDS, ADDONUAPLUS, CUU #### [facility] [address] [place] [address] Bacteria,Urine 4+ High None Seen [facility] Comment on above: Order Comment: Name Collection Type:: Clean-Voided Midstream Performed By: #### U HCG, URDS, ADDONUAPLUS, CUU #### [facility] [address] [place] [address] [place] Bilirubin,Urine Negative Normal Negative [facility] Comment on above: Order Comment: Name Collection Type:: Clean-Voided Midstream Performed By: #### U HCG, URDS, ADDONUAPLUS, CUU #### [facility] [address] [place] [address] Color (U) Yellow Normal Yellow [facility] Comment on above: Order Comment: Name Collection Type:: Clean-Voided Midstream Performed By: #### U HCG, URDS, ADDONUAPLUS, CUU #### [facility] [address] [place] [address] Glucose Ql (U) Normal Normal Normal [facility] Comment on above: Order Comment: Name Collection Type:: Clean-Voided Midstream Performed By: #### U HCG, URDS, ADDONUAPLUS, CUU #### [facility] [address] [place] [address] Hyaline Casts,Urine 0-8 Normal 0-8 [facility] Comment on above: Order Comment: Name Collection Type:: Clean-Voided Midstream Performed By: #### U HCG, URDS, ADDONUAPLUS, CUU #### [facility] [address] [place] [address] Ketones Ql (U) Negative Normal Negative [facility] Comment on above: Order Comment: Name Collection Type:: Clean-Voided Midstream Performed By: #### U HCG, URDS, ADDONUAPLUS, CUU #### [facility] [address] [place] [address] Leukocyte esterase Test strip Ql (U) 4+ High Negative [facility] Comment on above: Order Comment: Name Collection Type:: Clean-Voided Midstream Performed By: #### U HCG, URDS, ADDONUAPLUS, CUU #### [address] Nitrite,Urine Positive High Negative [facility] Comment on above: Order Comment: Name Collection Type:: Clean-Voided Midstream Performed By: #### U HCG, URDS, ADDONUAPLUS, CUU #### [facility] [address] [place] [address] Occult Blood,Urine Trace High Negative [facility] Comment on above: Order Comment: Name Collection Type:: Clean-Voided Midstream Result Comment: PERF ORMED BY: [place] [address] PATHOLOGIST SILVICULTURE PROFESSOR DANYELL LIVINGSTON M.D. Performed By: #### U HCG, URDS, ADDONUAPLUS, CUU #### [place] [address] [place] pH (U) 6.0 [pH] Normal 5.0-9.0 [facility] Comment on above: Order Comment: Name Collection Type:: Clean-Voided Midstream Performed By: #### U HCG, URDS, ADDONUAPLUS, CUU #### [facility] [address] [place] [address] Protein,Urine Trace High Negative [facility] Comment on above: Order Comment: Name Collection Type:: Clean-Voided Midstream Performed By: #### U HCG, URDS, ADDONUAPLUS, CUU #### [facility] [address] [place] [address] RBC,Urine 1-2 Normal 0-4 [facility] Comment on above: Order Comment: Name Collection Type:: Clean-Voided Midstream Performed By: #### U HCG, URDS, ADDONUAPLUS, CUU #### [facility] [address] [place] [address] Specificy [place],Urine 1.018 Normal 1.001-1.030 [facility] Comment on above: Order Comment: Name Collection Type:: Clean-Voided Midstream Performed By: #### U HCG, URDS, ADDONUAPLUS, CUU #### [facility] [address] [place] [address] Squamous Epithelial Cell,Urine 10-19 High 0-2 [facility] Comment on above: Order Comment: Name Collection Type:: Clean-Voided Midstream Performed By: #### U HCG, URDS, ADDONUAPLUS, CUU #### [facility] [address] [place] [address] Urobilinogen,Urine Normal Normal Normal [facility] Comment on above: Order Comment: Name Collection Type:: Clean-Voided Midstream Performed By: #### U HCG, URDS, ADDONUAPLUS, CUU #### [facility] [address] [place] [address] WBC,Urine Innumerable High 0-4 [facility] Comment on above: Order Comment: Name Collection Type:: Clean-Voided Midstream Performed By: #### U HCG, URDS, ADDONUAPLUS, CUU #### [facility] [address] [place] [address] [place] Yeast,Urine None Seen Normal None Seen [facility] Comment on above: Order Comment: Name Collection Type:: Clean-Voided Midstream Result Comment: PERF ORMED BY: [place] [address] PATHOLOGIST SILVICULTURE PROFESSOR DANYELL LIVINGSTON M.D. Performed By: #### U HCG, URDS, ADDONUAPLUS, CUU #### [facility] [address] [place] [address] [place] Drug Screen,Urineon 06-08-20 Amphetamine Screen,Urine Negative Normal Negative [facility] Comment on above: Performed By: #### U HCG, URDS, ADDONUAPLUS, CUU #### [facility] [address] [place] [address] [place] Barbiturate Screen,Urine Negative Normal Negative [facility] Comment on above: Performed By: #### U HCG, URDS, ADDONUAPLUS, CUU #### [facility] [address] [place] [address] Benzodiazepines Screen,Urine Negative Normal Negative [facility] Comment on above: Performed By: #### U HCG, URDS, ADDONUAPLUS, CUU #### [facility] [address] [place] [address] Cannabinoid Screen,Urine Negative Normal Negative [facility] Comment on above: Result Comment: Thes e are unconfirmed results and should not be used for legal purposes. Drug Cut-Off Concentration: AMPH 1000 ng/mL SARA 200 ng/mL MARTÍNEZ 200 ng/mL COCM 300 ng/mL OP 300 ng/mL PCP 25 ng/mL THC 20 ng/mL PERFORMED BY: [place] [address] PATHOLOGIST SILVICULTURE PROFESSOR DANYELL LIVINGSTON M.D. Performed By: #### U HCG, URDS, ADDONUAPLUS, CUU #### [facility] [address] [place] [address] [place] Cocaine Screen,Urine Negative Normal Negative [facility] Comment on above: Performed By: #### U HCG, URDS, ADDONUAPLUS, CUU #### [facility] [address] Opiate Screen,Urine Negative Normal Negative [facility] Comment on above: Performed By: #### U HCG, URDS, ADDONUAPLUS, CUU #### [facility] [address] Phencyclidine Screen,Urine Negative Normal Negative [facility] Comment on above: Performed By: #### U HCG, URDS, ADDONUAPLUS, CUU #### [facility] [address] [place] [address] [place] Eosinophils Auto (Bld) [#/Vo l]Ordered By: Luis Armando Hendrix on 06-08-2023 Eosinophils (Bld) [#/Vol] 0.1 10*3/uL 0.0-0.45 [facility] Eosinophils/100 WBC Auto (Bl d)Ordered By: Luis Armando Hendrix on 06-08-2023 Eosinophils/100 WBC (Bld) 2.2 % . [facility] Erythrocyte distribution wid th Auto (RBC) [Ratio]Ordered By: Luis Armando Hendrix on 06-08-2023 Erythrocyte distribution width (RBC) [Ratio] 13.5 % 11.9-15.3 [facility] Ethanol [Mass/volume] in Ser um or PlasmaOrdered By: Luis Armando Hendrix on 06-08-2023 Ethanol [Mass/Vol] mg/dL [facility] Ethanol [Mass/Vol] TNP [facility] Comment on above: Test not performed Ethyl Alcohol Profileon 05-13 Ethanol [Mass/Vol] mg/dL Normal [facility] Comment on above: Performed By: #### U HCG, URDS, ADDONUAPLUS, CUU #### [facility] [address] [place] [address] [place] Percent Ethanol Not performed Normal [facility] Comment on above: Result Comment: PERF ORMED BY: [place] [address] PATHOLOGIST SILVICULTURE PROFESSOR DANYELL LIVINGSTON M.D. Performed By: #### U HCG, URDS, ADDONUAPLUS, CUU #### [facility] [address] [place] [address] Globulin Calc (S) [Mass/Vol] Ordered By: Luis Armando Hendrix on 06-08-2023 Globulin (S) [Mass/Vol] 2.9 g/dL [facility] Glucose [Mass/volume] in Ser um or PlasmaOrdered By: Luis Armando Hendrix on 06-08-2023 Glucose [Mass/Vol] 90 mg/dL 70-100 [facility] Comment on above: ADA recommended refe rence rangeRandom Glucose Reference Range is dependent on time and content of last meal. Glucose of more than 200 mg/dL in a nonstressed, ambulatory subject supports the diagnosis of Diabetes Mellitus. HCG ( test) IA.rapi d Ql (U)Ordered By: Luis Armando Hendrix on 06-08-2023 HCG ( test) Ql (U) Negative [facility] HCG,Urineon 06-08-2023 Beta HCG ( test) Ql (U) Negative Normal [facility] Comment on above: Result Comment: PERF ORMED BY: [place] [address] PATHOLOGIST SILVICULTURE PROFESSOR DANYELL LIVINGSTON M.D. Performed By: #### U HCG, URDS, ADDONUAPLUS, CUU #### [address] Hematocrit Auto (Bld) [Volum e fraction]Ordered By: Luis Armando Hendrix on 06-08-2023 Hematocrit (Bld) [Volume fraction] 39.0 % 34.0-46.4 [facility] Hemoglobin [Mass/volume] in BloodOrdered By: Luis Armando Hendrix on 06-08-2023 Hemoglobin (Bld) [Mass/Vol] 13.0 g/dL 11.8-15.4 [facility] Ketones Auto test strip (U) [Mass/Vol]Ordered By: Luis Armando Hendrix on 06-08-2023 Ketones (U) [Mass/Vol] Negative Negative [facility] - UrinalysisOrder ed By: Luis Armando Hendrix on 06-08-2023 Hyaline casts LM Ql (Urine sed) 0-8 [LPF] 0-8 [facility] Leukocytes [#/volume] correc neema for nucleated erythrocytes in Blood by Automated counOrdered By: Luis Armando Hendrix on 06-08-2023 WBC corrected for nucl RBC Auto (Bld) [#/Vol] 5.1 10*3/uL 3.8-11.6 [facility] Lymphocytes Auto (Bld) [#/Vo l]Ordered By: Luis Armando Hendrix on 06-08-2023 Lymphocytes (Bld) [#/Vol] 3.0 10*3/uL 1.00-4.8 [facility] Lymphocytes/100 WBC Auto (Bl d)Ordered By: Luis Armando Hendrix on 06-08-2023 Lymphocytes/100 WBC (Bld) 58.8 % . [facility] MCH Auto (RBC) [Entitic mass ]Ordered By: Luis Armando Hendrix on 06-08-2023 MCH (RBC) [Entitic mass] 30.0 pg 24.7-34.3 [facility] MCHC Auto (RBC) [Mass/Vol]Or dered By: Luis Armando Hendrix on 06-08-2023 MCHC (RBC) [Mass/Vol] 33.4 g/dL 32.0-35.0 [facility] MCV Auto (RBC) [Entitic vol] Ordered By: Luis Armando Hendrix on 06-08-2023 MCV (RBC) [Entitic vol] 89.7 fL 80-100 [facility] Monocyte distribution width [Entitic volume] in Blood by AutomatedOrdered By: Luis Armando Hendrix on 06-08-2023 Monocyte distribution width Auto (Bld) [Entitic vol] 19.94 % 0.00-20.00 [facility] Monocytes Auto (Bld) [#/Vol] Ordered By: Luis Armando Hendrix on 06-08-2023 Monocytes (Bld) [#/Vol] 0.5 10*3/uL 0.0-0.8 [facility] Monocytes/100 WBC Auto (Bld) Ordered By: Luis Armando Hendrix on 06-08-2023 Monocytes/100 WBC (Bld) 9.4 % . [facility] Neutrophils Auto (Bld) [#/Vo l]Ordered By: Luis Armando Hendrix on 06-08-2023 Neutrophils (Bld) [#/Vol] 1.5 10*3/uL 1.8-7.7 [facility] Neutrophils/100 WBC Auto (Bl d)Ordered By: Luis Armando Hendrix on 06-08-2023 Neutrophils/100 WBC (Bld) 28.9 % . [facility] Nitrite Test strip Ql (U)Ord ered By: Luis Armando Hendrix on 06-08-2023 Nitrite Ql (U) Positive Negative [facility] No Panel InformationOrdered By: Luis Armando Hendrix on 06-08-2023 Estimated GFR (CKD-EPI) > 60.0 mL/Min [facility] Creatinine Clearance (Chem 104.00 [facility] Nucleated erythrocytes [Pres ence] in Blood by Automated countOrdered By: Luis Armando Hendrix on 06-08-2023 Nucleated RBC Auto Ql (Bld) 0.1 /100{WBC} 0-0.5 [facility] Opiates [Presence] in Urine by Screen methodOrdered By: uLis Armando Hendrix on 06-08-2023 Opiates Screen Ql (U) Negative Negative [facility] Phencyclidine Screen Ql (U)O rdered By: Luis Armando Hendrix on 06-08-2023 Phencyclidine Ql (U) Negative Negative [facility] Platelet mean volume Auto (B ld) [Entitic vol]Ordered By: Luis Armando Hendrix on 06-08-2023 Platelet mean volume (Bld) [Entitic vol] 9.2 fL 6.3-10.7 [facility] Platelets Auto (Bld) [#/Vol]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 CRENSHAW, CBC #### [facility] [address] [place] [address] WBC (Bld) [#/Vol] 9.5 10*3/uL Normal 3.8-11.6 [facility] Comment on above: Performed By: #### E MICHELLE CRENSHAW, CBC #### [facility] [address] [place] [address] Comprehensive Metabolic Pane selam 02-03-2023 Albumin [Mass/Vol] 3.8 g/dL Normal 3.5-5.7 [facility] Comment on above: Performed By: #### E MICHELLE CRENSHAW, CBC #### [facility] [address] [place] [address] Albumin/Globulin [Mass ratio] 1.3 {ratio} Normal [facility] Comment on above: Performed By: #### E MICHELLE CRENSHAW, CBC #### [facility] [address] [place] [address] ALP [Catalytic activity/Vol] 34 U/L Normal 34-104 [facility] Comment on above: Performed By: #### E MICHELLE CRENSHAW, CBC #### [facility] [address] [place] [address] ALT [Catalytic activity/Vol] 7 U/L Normal 7-52 [facility] Comment on above: Performed By: #### E MICHELLE RCENSHAW, CBC #### [facility] [address] [place] [address] Anion gap [Moles/Vol] 9.3 mmol/L Normal 6.0-15.0 [facility] Comment on above: Performed By: #### E MICHELLE CRENSHAW, CBC #### [facility] [address] [place] [address] AST [Catalytic activity/Vol] 13 U/L Normal 13-39 [facility] Comment on above: Performed By: #### E MICHELLE CRENSHAW, CBC #### [facility] [address] [place] [address] [place] Bilirubin [Mass/Vol] 0.3 mg/dL Normal 0.3-1.[address] [facility] Comment on above: Performed By: #### E FLOWER CMP, CBC #### [facility] [address] [place] [address] [place] Calcium [Mass/Vol] 8.4 mg/dL Low 8.6-10.3 [facility] Comment on above: Performed By: #### E MICHELLE CRENSHAW, CBC #### [facility] [address] Chloride [Moles/Vol] 104 mmol/L Normal 98-[address] [facility] Comment on above: Performed By: #### E MICHELLE CRENSHAW, CBC #### [facility] [address] CO2 [Moles/Vol] 27.6 mmol/L Normal 21.0-31.0 [facility] Comment on above: Performed By: #### E MICHELLE CRENSHAW, CBC #### [facility] [address] [place] [address] [place] Creatinine [Mass/Vol] 0.77 mg/dL Normal 0.60-1.20 [facility] Comment on above: Performed By: #### E MICHELLE CRENSHAW, CBC #### [facility] [address] [place] [address] [place] Creatinine Clr Calc Pharmacy 89.14 [facility] Comment on above: Result Comment: PERF ORMED BY: [place] [address] PATHOLOGIST SILVICULTURE PROFESSOR DANYELL LIVINGSTON M.D. Performed By: #### E MICHELLE CRENSHAW, CBC #### [facility] [address] [place] [address] [place] GFR/1.73 sq M.predicted MDRD (S/P/Bld) [Vol rate/Area] mL/min/{1.73_m2} [facility] Comment on above: Performed By: #### E MICHELLE CRENSHAW, CBC #### [facility] [address] [place] [address] [place] Globulin (S) [Mass/Vol] 3.0 g/dL Normal [facility] Comment on above: Performed By: #### E MICHELLE CRENSHAW, CBC #### [facility] [address] Glucose [Mass/Vol] 83 mg/dL Normal 70-100 [facility] Comment on above: Result Comment: [facility] Glucose Reference Range is dependent on time and content of last meal. Glucose of more than 200 mg/dL in a nonstressed, ambulatory subject supports the diagnosis of Diabetes Mellitus. ADA recommended reference range Performed By: #### E MICHELLE CRENSHAW, CBC #### [facility] [address] Potassium [Moles/Vol] 3.9 mmol/L Normal 3.5-5.1 [facility] Comment on above: Performed By: #### E MICHELLE CRENSHAW, CBC #### [facility] [address] [place] [id number] [place] Protein [Mass/Vol] 6.8 g/dL Normal 6.4-8.9 [facility] Comment on above: Performed By: #### E MICHELLE CRENSHAW, CBC #### [facility] [address] [place] [id number] [place] Sodium [Moles/Vol] 137 mmol/L Normal 136-145 [facility] Comment on above: Performed By: #### E MICHELLE CRENSHAW, CBC #### [facility] [address] [place] [id number] [place] Urea nitrogen [Mass/Vol] 17 mg/dL Normal 7-25 [facility] Comment on above: Performed By: #### E MICHELLE CRENSHAW, CBC #### [facility] [address] [place] [id number] [place] Creatinine [Mass/volume] in Serum or PlasmaOrdered By: Leonard Salazar on 02-03-2023 Creatinine [Mass/Vol] 0.77 mg/dL 0.60-1.20 [facility] Dipstick and Microscopicon 0 02-03-2023 Appearance (U) Cloudy Critically abnormal Clear [facility] Comment on above: Order Comment: Name Collection Type:: Clean-Voided Midstream Performed By: #### U HCG, URDS, ADDONUAPLUS, CUU #### [facility] [address] [place] [address] Bacteria,Urine 1+ High None Seen [facility] Comment on above: Order Comment: Name Collection Type:: Clean-Voided Midstream Performed By: #### U HCG, URDS, ADDONUAPLUS, CUU #### [facility] [address] [place] [address] [place] Bilirubin,Urine Negative Normal Negative [facility] Comment on above: Order Comment: Name Collection Type:: Clean-Voided Midstream Performed By: #### U HCG, URDS, ADDONUAPLUS, CUU #### [facility] [address] [place] [address] [place] Color (U) Yellow Normal Yellow [facility] Comment on above: Order Comment: Name Collection Type:: Clean-Voided Midstream Performed By: #### U HCG, URDS, ADDONUAPLUS, CUU #### [facility] [address] [place] [address] [place] Glucose Ql (U) Normal Normal Normal [facility] Comment on above: Order Comment: Name Collection Type:: Clean-Voided Midstream Performed By: #### U HCG, URDS, ADDONUAPLUS, CUU #### [facility] [address] [place] [address] [place] Hyaline Casts,Urine None Seen Normal 0-1 [facility] Comment on above: Order Comment: Name Collection Type:: Clean-Voided Midstream Performed By: #### U HCG, URDS, ADDONUAPLUS, CUU #### [facility] [address] [place] [address] [place] Ketones Ql (U) Trace High Negative [facility] Comment on above: Order Comment: Name Collection Type:: Clean-Voided Midstream Performed By: #### U HCG, URDS, ADDONUAPLUS, CUU #### [facility] [address] [place] [address] Leukocyte esterase Test strip Ql (U) 1+ High Negative [facility] Comment on above: Order Comment: Name Collection Type:: Clean-Voided Midstream Performed By: #### U HCG, URDS, ADDONUAPLUS, CUU #### [facility] [address] [place] [address] Nitrite,Urine Negative Normal Negative [facility] Comment on above: Order Comment: Name Collection Type:: Clean-Voided Midstream Performed By: #### U HCG, URDS, ADDONUAPLUS, CUU #### [address] Occult Blood,Urine Negative Normal Negative [facility] Comment on above: Order Comment: Name Collection Type:: Clean-Voided Midstream Performed By: #### U HCG, URDS, ADDONUAPLUS, CUU #### [address] Other Casts,Urine None Seen Normal None Seen [facility] Comment on above: Order Comment: Name Collection Type:: Clean-Voided Midstream Performed By: #### U HCG, URDS, ADDONUAPLUS, CUU #### [address] pH (U) 7.5 [pH] Normal 5.0-9.0 [facility] Comment on above: Order Comment: Name Collection Type:: Clean-Voided Midstream Performed By: #### U HCG, URDS, ADDONUAPLUS, CUU #### [facility] [address] [place] [address] Protein,Urine Negative Normal Negative [facility] Comment on above: Order Comment: Name Collection Type:: Clean-Voided Midstream Performed By: #### U HCG, URDS, ADDONUAPLUS, CUU #### [facility] [address] [place] [address] RBC,Urine 1-2 Normal 0-4 [facility] Comment on above: Order Comment: Name Collection Type:: Clean-Voided Midstream Performed By: #### U HCG, URDS, ADDONUAPLUS, CUU #### [facility] [address] [place] [address] Specificy [place],Urine 1.025 Normal 1.001-1.030 [facility] Comment on above: Order Comment: Name Collection Type:: Clean-Voided Midstream Performed By: #### U HCG, URDS, ADDONUAPLUS, CUU #### [facility] [address] [place] [address] Squamous Epithelial Cell,Urine 20-30 High 0-2 [facility] Comment on above: Order Comment: Name Collection Type:: Clean-Voided Midstream Performed By: #### U HCG, URDS, ADDONUAPLUS, CUU #### [address] Urobilinogen,Urine Normal Normal Normal [facility] Comment on above: Order Comment: Name Collection Type:: Clean-Voided Midstream Performed By: #### U HCG, URDS, ADDONUAPLUS, CUU #### [facility] [address] [place] [address] WBC,Urine 5-9 High 0-4 [facility] Comment on above: Order Comment: Name Collection Type:: Clean-Voided Midstream Performed By: #### U HCG, URDS, ADDONUAPLUS, CUU #### [facility] [address] [place] [address] Drug Screen,Urineon 02-04-20 23 Amphetamine Screen,Urine Positive High Negative [facility] Comment on above: Performed By: #### U HCG, URDS, ADDONUAPLUS, CUU #### [address] Barbiturate Screen,Urine Negative Normal Negative [facility] Comment on above: Performed By: #### U HCG, URDS, ADDONUAPLUS, CUU #### [address] Benzodiazepines Screen,Urine Negative Normal Negative [facility] Comment on above: Performed By: #### U HCG, URDS, ADDONUAPLUS, CUU #### [facility] [address] [place] [address] Cannabinoid Screen,Urine Negative Normal Negative [facility] Comment on above: Result Comment: Thes e are unconfirmed results and should not be used for legal purposes. Drug Cut-Off Concentration: AMPH 1000 ng/mL SARA 200 ng/mL MARTÍNEZ 200 ng/mL COCM 300 ng/mL OP 300 ng/mL PCP 25 ng/mL THC 20 ng/mL PERFORMED BY: [place] [address] PATHOLOGIST SILVICULTURE PROFESSOR DANYELL LIVINGSTON M.D. Performed By: #### U HCG, URDS, ADDONUAPLUS, CUU #### [address] Cocaine Screen,Urine Negative Normal Negative [facility] Comment on above: Performed By: #### U HCG, URDS, ADDONUAPLUS, CUU #### [address] Opiate Screen,Urine Negative Normal Negative [facility] Comment on above: Performed By: #### U HCG, URDS, ADDONUAPLUS, CUU #### [address] Phencyclidine Screen,Urine Negative Normal Negative [facility] Comment on above: Performed By: #### U HCG, URDS, ADDONUAPLUS, CUU #### [address] Eosinophils Auto (Bld) [#/Vo l]Ordered By: Leonard Salazar on 02-03-2023 Eosinophils (Bld) [#/Vol] 0.1 10*3/uL 0.0-0.45 [facility] Eosinophils/100 WBC Auto (Bl d)Ordered By: Leonard Salazar on 02-03-2023 Eosinophils/100 WBC (Bld) 0.9 % . [facility] Erythrocyte distribution wid th Auto (RBC) [Ratio]Ordered By: Leonard Salazar on 02-03-2023 Erythrocyte distribution width (RBC) [Ratio] 14.0 % 11.9-15.3 [facility] Ethanol [Mass/volume] in Ser um or PlasmaOrdered By: Leonard Salazar on 02-03-2023 Ethanol [Mass/Vol] mg/dL [facility] Ethanol [Mass/Vol] TNP [facility] Comment on above: Test not performed Ethyl Alcohol Profileon 01-11 Ethanol [Mass/Vol] mg/dL Normal [facility] Comment on above: Performed By: #### E FLOWER, CMP, CBC #### [facility] [address] Percent Ethanol Not performed Normal [facility] Comment on above: Result Comment: PERF ORMED BY: [place] [address] PATHOLOGIST SILVICULTURE PROFESSOR DANYELL LIVINGSTON M.D. Performed By: #### E FLOWER, CMP, CBC #### [facility] [address] Globulin Calc (S) [Mass/Vol] Ordered By: Leonard Salazar on 02-03-2023 Globulin (S) [Mass/Vol] 3.0 g/dL [facility] Glucose [Mass/volume] in Ser um or PlasmaOrdered By: Leonard Salazar on 02-03-2023 Glucose [Mass/Vol] 83 mg/dL 70-100 [facility] Comment on above: ADA recommended refe rence rangeRandom Glucose Reference Range is dependent on time and content of last meal. Glucose of more than 200 mg/dL in a nonstressed, ambulatory subject supports the diagnosis of Diabetes Mellitus. HCG ( test) IA.rapi d Ql (U)Ordered By: Leonard Salazar on 02-03-2023 HCG ( test) Ql (U) Negative [facility] HCG,Urineon 02-03-2023 Beta HCG ( test) Ql (U) Negative Normal [facility] Comment on above: Order Comment: Name Collection Type:: Clean-Voided Midstream Result Comment: PERF ORMED BY: [place] [address] PATHOLOGIST SILVICULTURE PROFESSOR DANYELL LIVINGSTON M.D. Performed By: #### U HCG, URDS, ADDONUAPLUS, CUU #### [facility] [address] Hematocrit Auto (Bld) [Volum e fraction]Ordered By: Leonard Salazar on 02-03-2023 Hematocrit (Bld) [Volume fraction] 39.9 % 34.0-46.4 [facility] Hemoglobin [Mass/volume] in BloodOrdered By: Leonard Salazar on 02-03-2023 Hemoglobin (Bld) [Mass/Vol] 13.4 g/dL 11.8-15.4 [facility] Ketones Auto test strip (U) [Mass/Vol]Ordered By: Leonard Salazar on 02-03-2023 Ketones (U) [Mass/Vol] Trace Negative Fi [facility] Leukocytes [#/volume] correc neema for nucleated erythrocytes in Blood by Automated counOrdered By: Leonard Salazar on 02-03-2023 WBC corrected for nucl RBC Auto (Bld) [#/Vol] 9.5 10*3/uL 3.8-11.6 [facility] Lymphocytes Auto (Bld) [#/Vo l]Ordered By: Leonard Salazar on 02-03-2023 Lymphocytes (Bld) [#/Vol] 2.8 10*3/uL 1.00-4.8 [facility] Lymphocytes/100 WBC Auto (Bl d)Ordered By: Leonard Salazar on 02-03-2023 Lymphocytes/100 WBC (Bld) 29.7 % . [facility] MCH Auto (RBC) [Entitic mass ]Ordered By: Leonard Salazar on 02-03-2023 MCH (RBC) [Entitic mass] 31.0 pg 24.7-34.3 [facility] MCHC Auto (RBC) [Mass/Vol]Or dered By: Leonard Salazar on 02-03-2023 MCHC (RBC) [Mass/Vol] 33.5 g/dL 32.0-35.0 [facility] MCV Auto (RBC) [Entitic vol] Ordered By: Leonard Salazar on 02-03-2023 MCV (RBC) [Entitic vol] 92.6 fL 80-100 [facility] Monocyte distribution width [Entitic volume] in Blood by AutomatedOrdered By: Leonard Salazar on 02-03-2023 Monocyte distribution width Auto (Bld) [Entitic vol] 20.22 % 0.00-20.00 [facility] Comment on above: For adults in ED, MD W > 20.0 may be associated with a higher risk of sepsis during the first 12 hrs of hospital admission Monocytes Auto (Bld) [#/Vol] Ordered By: Leonard Salazar on 02-03-2023 Monocytes (Bld) [#/Vol] 0.5 10*3/uL 0.0-0.8 [facility] Monocytes/100 WBC Auto (Bld) Ordered By: Leonard Salazar on 02-03-2023 Monocytes/100 WBC (Bld) 5.0 % . [facility] Neutrophils Auto (Bld) [#/Vo l]Ordered By: Leonard Salazar on 02-03-2023 Neutrophils (Bld) [#/Vol] 6.1 10*3/uL 1.8-7.7 [facility] Neutrophils/100 WBC Auto (Bl d)Ordered By: Leonard Salazar on 02-03-2023 Neutrophils/100 WBC (Bld) 64.0 % . [facility] Nitrite Test strip Ql (U)Ord ered By: Leonard Salazar on 02-03-2023 Nitrite Ql (U) Negative Negative [facility] No Panel InformationOrdered By: Leonard Salazar on 02-03-2023 Estimated GFR (CKD-EPI) > 60.0 mL/Min [facility] Creatinine Clearance (Chem 89.14 [facility] Nucleated erythrocytes [Pres ence] in Blood by Automated countOrdered By: Leonard Salazar on 02-03-2023 Nucleated RBC Auto Ql (Bld) 0.1 /100{WBC} 0-0.5 [facility] Opiates [Presence] in Urine by Screen methodOrdered By: Leonard Salazar on 02-03-2023 Opiates Screen Ql (U) Negative Negative [facility] Phencyclidine Screen Ql (U)O rdered By: Leonard Salazar on 02-03-2023 Phencyclidine Ql (U) Negative Negative [facility] Platelet mean volume Auto (B ld) [Entitic vol]Ordered By: Leonard Salazar on 02-03-2023 Platelet mean volume (Bld) [Entitic vol] 8.5 fL 6.3-10.7 [facility] Platelets Auto (Bld) [#/Vol] Ordered By: Leonard Salazar on 02-03-2023 Platelets (Bld) [#/Vol] 252 10*3/uL 150-450 [facility] Potassium [Moles/volume] in Serum or PlasmaOrdered By: Leonard Salazar on 02-03-2023 Potassium [Moles/Vol] 3.9 mmol/L 3.5-5.1 [facility] Protein Auto test strip (U) [Mass/Vol]Ordered By: Leonard Salazar on 02-03-2023 Protein (U) [Mass/Vol] Negative Negative [facility] Protein [Mass/volume] in Ser um or PlasmaOrdered By: Leonard Salazar on 02-03-2023 Protein [Mass/Vol] 6.8 g/dL 6.4-8.9 [facility] RBC Auto (Bld) [#/Vol]Ordere d By: Leonard Salazar on 02-03-2023 RBC (Bld) [#/Vol] 4.31 10*6/uL 3.60-5.00 [facility] Serum or plasma albumin/glob ulin mass ratioOrdered By: Leonard Salazar on 02-03-2023 Albumin/Globulin [Mass ratio] 1.3 {ratio} [facility] Serum or plasma anion gap de terminationOrdered By: Leonard Salazar on 02-03-2023 Anion gap [Moles/Vol] 9.3 mmol/L 6.0-15.0 [facility] Sodium [Moles/volume] in Ser um or PlasmaOrdered By: Leonard Salazar on 02-03-2023 Sodium [Moles/Vol] 137 mmol/L 136-145 [facility] Specific gravity Auto test s trip (U) [Rel density]Ordered By: Leonard Salazar on 02-03-2023 Specific gravity (U) [Rel density] 1.025 1.001-1.030 [facility] Squamous epithelial cells de tection in urine sediment by light microscopyOrdered By: Leonard Salazar on 02-03-2023 Epithelial cells.squamous LM Ql (Urine sed) 20-30 [HPF] 0-2 [facility] Urea nitrogen [Mass/volume] in Serum or PlasmaOrdered By: Leonard Salazar on 02-03-2023 Urea nitrogen [Mass/Vol] 17 mg/dL 7 [facility] Urine Cultureon 02-03-2023 Bacteria identified Cx Nom (U) 20,000 colonies/ml mixed bacterial skin contaminants 2 Days PERFORMED BY: [place] [address] PATHOLOGIST SILVICULTURE PROFESSOR DANYELL LIVINGSTON M.D. Normal [facility] Comment on above: Performed By: #### U HCG, URDS, ADDONUAPLUS, CUU #### [facility] [address] [place] [address] Urine bacteria detection by automated methodOrdered By: Leonard Salazar on 02-03-2023 Bacteria Auto Ql (U) 1+ None Seen [facility] Urine clarity by refractomet ry automatedOrdered By: Leonard Salazar on 02-03-2023 Clarity Refractometry automated (U) Cloudy Clear [facility] Urine culture routineOrdered By: Leonard Salazar on 02-03-2023 Bacteria identified Cx Nom (U) 2 Days [facility] Urine glucose measurement by automated test strip (mass/volume)Ordered By: Leonard Salazar on 02-03-2023 Glucose Auto test strip (U) [Mass/Vol] Normal mg/dL Normal [facility] Urine hemoglobin detection b y automated test stripOrdered By: Leonard Salazar on 02-03-2023 Hemoglobin Auto test strip Ql (U) Negative Negative [facility] Urine leukocyte esterase det ection by automated test stripOrdered By: Leonard Salazar on 02-03-2023 Leukocyte esterase Auto test strip Ql (U) 1+ Negative [facility] Urobilinogen Auto test strip (U) [Mass/Vol]Ordered By: Leonard Salazar on 02-03-2023 Urobilinogen (U) [Mass/Vol] Normal mg/dL Normal [facility] WBC Auto (Bld) [#/Vol]Ordere d By: Leonard Salazar on 02-03-2023 WBC (Bld) [#/Vol] 9.5 10*3/uL 3.8-11.6 [facility] pH Auto test strip (U)Ordere d By: Leonard Salazar on 02-03-2023 pH (U) 7.5 [pH] 5.0-9.0 [facility] ED Note-Physicianon 01-28-20 ED Note-Physician [phone] [id number]#1 .00CD:127 Normal [facility] Cholesterol [Mass/volume] in Serum or PlasmaOrdered By: Bobo Shields on 01-15-2023 Cholesterol [Mass/Vol] 220 mg/dL 140-200 [facility] Comment on above: Chol less than 200 m g/dl low riskChol 201-239 mg/dl borderline riskChol 240 mg/dl and greater high risk Cholesterol in LDL Calc [Mas s/Vol]Ordered By: Bobo Shields on 01-15-2023 Cholesterol in LDL [Mass/Vol] 150 mg/dL 0-100 [facility] Comment on above: LDL ATP III CLASSIFI CATIONLDL less than 100 mg/dL OptimalLDL 100-129 mg/dL Near or above optimalLDL 130-159 mg/dL Borderline highLDL 160-189 mg/dL HighLDL greater than 189 mg/dL Very high Cholesterol in VLDL Calc [Ma ss/Vol]Ordered By: Bobo Shields on 01-15-2023 Cholesterol in VLDL [Mass/Vol] 23 mg/dL [facility] Lipid Panelon 01-15-2023 Cholesterol [Mass/Vol] 220 mg/dL High 140-200 [facility] Comment on above: Result Comment: Chol less than 200 mg/dl low risk Chol 201-239 mg/dl borderline risk Chol 240 mg/dl and greater high risk Performed By: #### U HCG, URDS, ADDONUAPLUS, CUU #### [address] Cholesterol in HDL [Mass/Vol] 46 mg/dL Normal 35-85 [facility] Comment on above: Result Comment: HDL CHOL ATP-III CLASSIFICATION Cardiovascular Risk HDL > or equal to 60 mg/dL LOW HDL < 40 mg/dL HIGH Performed By: #### U HCG, URDS, ADDONUAPLUS, CUU #### [facility] [address] Cholesterol.total/Andra sterol in HDL [Mass ratio] 4.8 {ratio} Normal <5.0 [facility] Comment on above: Performed By: #### U HCG, URDS, ADDONUAPLUS, CUU #### [facility] [address] LDL Cholesterol,Calculated 150 mg/dL High 0-100 [facility] Comment on above: Result Comment: LDL ATP III CLASSIFICATION LDL less than 100 mg/dL Optimal LDL 100-129 mg/dL Near or above optimal LDL 130-159 mg/dL Borderline high LDL 160-189 mg/dL High LDL greater than 189 mg/dL Very high Performed By: #### U HCG, URDS, ADDONUAPLUS, CUU #### [facility] [address] Triglyceride w/Reflex 119 mg/dL Normal 0-149 [facility] Comment on above: Result Comment: TRIG ATP III CLASSIFICATION TRIG less than 150 mg/dL Normal TRIG 150-199 mg/dL Borderline high TRIG 200-500 mg/dL High TRIG greater than 500 mg/dL Very high Standard traceable to the Center for Disease Conrtrol and Prevention (CDC) test method. Performed By: #### U HCG, URDS, ADDONUAPLUS, CUU #### [facility] [address] VLDL CHOLESTEROL 23 mg/dL Normal [facility] Comment on above: Performed By: #### U HCG, URDS, ADDONUAPLUS, CUU #### [facility] [address] Serum or plasma high density lipoprotein (HDL) cholesterol measurementOrdered By: Bobo Shields on 01-15-2023 Cholesterol in HDL [Mass/Vol] 46 mg/dL 35-85 [facility] Comment on above: HDL CHOL ATP-III CLA SSIFICATION Cardiovascular RiskHDL > or equal to 60 mg/dL LOWHDL < 40 mg/dL HIGH Serum or plasma total choles terol/high density lipoprotein (HDL) cholesterol mass ratOrdered By: Bobo Shields on 01-15-2023 Cholesterol.total/Andra sterol in HDL [Mass ratio] 4.8 {ratio} <5.0 [facility] Thyroid Stim Hormone w/Rflxo n 01-15-2023 Thyroid Stim Hormone w/Rflx 1.74 u[iU]/mL Normal 0.45-5.33 [facility] Comment on above: Performed By: #### U HCG, URDS, ADDONUAPLUS, CUU #### [facility] [address] [place] [address] Thyrotropin [Units/volume] i n Serum or PlasmaOrdered By: Bobo Shields on 01-15-2023 TSH Qn 1.74 m[IU]/L 0.45-5.33 [facility] Triglyceride [Mass/volume] i n Serum or PlasmaOrdered By: Bobo Shields on 01-15-2023 Triglyceride [Mass/Vol] 119 mg/dL 0-149 [facility] Comment on above: TRIG ATP III CLASSIF ICATIONTRIG less than 150 mg/dL NormalTRIG 150-199 mg/dL Borderline highTRIG 200-500 mg/dL High TRIG greater than 500 mg/dL Very highStandard traceable to the Center for Disease Conrtrol and Prevention (CDC) test method. Vitamin D 25 Hydroxy Totalon 01-15-2023 Vitamin D 25 Hydroxy Total 15.0 ng/mL Low 30-100 [facility] Comment on above: Result Comment: KAVON MIN D STATUS 25(OH)VITAMIN D RANGE (ng/mL) Deficient <20 Insufficient 20 to <30 Sufficient 30 to 100 Reference: Deb MF,Stephanie NC, Ro CORONEL, et al. Evaluation,treatment, and prevention of vitamin D deficiency; an Endocrine Society clinical practice guideline. JCEM. 2010; 96(7):1911-30. PERFORMED BY: [place] [address] PATHOLOGIST SILVICULTURE PROFESSOR DANYELL LIVINGSTON M.D. Performed By: #### U HCG, URDS, ADDONUAPLUS, CUU #### [facility] [address] [place] [id number] [facility] Vitamin D+Metabolites [Mass/ volume] in Serum or PlasmaOrdered By: Bobo Shields on 01-15-2023 Vitamin D+Metabolites [Mass/Vol] 15.0 ng/mL 30-100 [facility] Comment on above: VITAMIN D STATUS 25( [...] Trimethoprim/Sulfamet hoxazole >=320 R F Normal [facility] Comment on above: Performed By: #### P REG #### [facility] [address] [address] [address] Efren Parra Coding Summary.on 01-14-2023 Coding Summary. CD:[id number] W w+PGhlYWQ+AS0KOPEaS55 xjLWzvK7dN7BBIRcFOqqe KTWAIReUFaAjokLwWQ0ua XNjZXJu IC8+EU3eZNMjTozjbCCgk 7Z2gMR8W52cmv4vWCywgI M5JSEkPrTehwswa6wdgCu 6IDcuNmluOyBt GVTtdP97EKL4yW08Xw52c OJroLFfb8wpmYw5RlLcKH GpGLQ3bHbeMZdma7HcFHD mD72ojXWol3S9 FPOnuUawlGWnNrWijMP2o N3bGVgywveij3nzulrpVb b4pg83uPSwt5Z5cKQ5E7N vhnT0RBHgtCBr NhrluTGKgQ2iyrueb7wyx nphLpTaTFFpCGx2GNe1EL GzzPclAeFnAP25KET7YYC booIoL4IgBQYn qOmiWtW2q5K2Nw6BH1HSR fmoU6WWLWNYMJzkeVA+PC 03vc07H5MxKcbmOvt5ECR bNOK3gAR6aY7q QTRkRAonf5U1gLE1L2Hoy rEbis4wt1uhUKTyYXyxB5 6htBEgn7W3YRGlmPQ6ACI afDahJgMkyL09 Oyc+AZPxuSpih7XfAdxah 2ysw9wlwQh4JyqzKHDncq NenGnkWJX7e8ZyLn0kKVL duEK7zSR1oA4g IsCeUmZ6APrqO068ZzZio JScIuztW23iP3JljAP+PH WhRdv5WVFlsFddWJ2iH2Z hZGRpbmctbGVm eEypZS5bQUVcogagWSIfl X5sTFBjG1a0VkIjBsE2YO sfY9EoWIIntsbnMo40hH5 wQfUwBdR9JQzf M2ZvjkO7CDQrwYNwMVcpQ DH4D02wm9M0FYUrRKOmJU Y2dSR2wH2jyZebufrccQH mdDsgdmVydGlj TShoAXjiF146ZYJfcXewA kNvZGluZyBEYXRlOiAgMD QvMDUvMjAyMzwvdGQ+PHR eHMY6dIjeHBDy tCTyYZpbDg3xyCgkySpyB Q1rSHCqitiuTSUdiG8yTQ TnxXXwmPehFA8mPJQxepc di858XiFcAPK8 DEEhfTPyH8NdpX9wCnPaF TAwZOJnZ0KgqLLtVMqeQ1 28OHipWyO2HWPzecFiU6A sLWFsaWduOiB0 h4P0Og5Mz8MygtzjH7Xrs ENwIcCzUfviZEh6X6PgAb wvdHI+BU90PSGzHX88UVj 5SYB6ePmdAWfl DBGjW4VitB6lCaDwEJPnE GRkOyc+PHRhYmxlIHdpZH RoPScxMDAlJyBzdHlsZT0 tHd9dGHCpMFZq qXuvlFTwYoHtw3ekHFSiA EfzDR9zvHpmM3BjuSQ4YF Pfl9i9Nh17E16rE8EekZV +FBVfhKT7yUM4 eZ6mWhFsGrP2LCrpD472E lLxiOSvNbhpd9slp2oiwV w6HkS9QSZygqDtsNudYKX 0v9AsRv43K99l IHdpZHRoPSIxNSUiIHZhb Tmhdk7umO6iCk0+PGNvbC D9wHU1dO9sWhNaMnQ3IRh vL308CrGgnANt Pewuj9iqn9vitSt2RfZbL HMlvsVqsUddCEJ5b5JsIp 67D0BnkBagv2EzIzg0hi5 2uCXvq8L0cJP5 B4YiWDQtccnfcJKrzIlbU Y0eAXPtvycuLXTicZ5qFA EhQ0u5GsBfBbP0PUetK7R adnS6GUWjgEEz UEKahXGTeA1lwrvzy0qew jeaFoOmSCEmZUh3UGj8CB FruQiaJlFhPCQ3ZkQ5IGT 7pRZzyU5lxBuw nkcilD5tQde+GZD9uTZzz WCPHY0tKfmjtTZ+PHRkIH O5tLlqCUweBNApiY8lAMG xB0j8BuJkApU8 QYlpV0PcthT8TDCksEOrG FUpnEHSdZ1kpijvz1gdih cwRlBfPQAiIWn1PRd3YGG saWduOiBsZWZ0 HgA1BPT8tWGaiO5nwUswx jkiiO8bGza+QmlydGggRG T2OKe9P5MaYie0RJXagOj eFY6viRJpSUkc Me2veGqynEhjCA7gTHJrb wdoa532VzGmf1mbPHZsfL EkHGxzCTK8D99ig6C6RAE hDKNfKWW7tJX2 jH5kxDontpdqbPYuvKmjv iBqlZcaZJaaJLdaI428GZ XcyErjWtMjMXp3G9XfXim 4YPQunKwuYZ0i zGDyMHwjZe0kuJyxaYpqX X9eIXUhwogns583JcHiy2 bqVKBwyPXhDKzyZUY3M85 wx2B1DABhMVKv QSF3cEF4rX1xzPdlwtgsq GVmdDsgdmVydGljYWwtYW ihG309GBOvrFsyWiGalXk 1T6UtJzt9OPGf dXxrWD7jgZIsOQtsEx2to ExxeXemJZ7sPOZuoatby7 47GzSuw2qjNHDnfJUoDFm fZHV5W22jp8X0 HNUwJBJqOKM6qOR0lY5td GlnbjogbGVmdDsgdmVydG bwBVqtQDxkA817HGMmrTo nPlBhdGllbnQg IApqTMa7R1JtQhueaMN+P E25PGZzBG80wRAvzLVnl5 jcgGa2MtIkNKGqFEO3eGs mYObot5CoSNDl R14fdJFux2T8AUQkeNkqq UVaNhOydTC5yH7mZKpwij tjq7xgzbanIhxmt1phtr4 9wW91T68bSKgl ZHRoPSIzMCUiIHZhbGlnb i6zvK3xWw7+TPUzhRX7wU G6eK0rAHJzGqA0UVcbS68 9InRvcCIvPjxj w2gmd7lznPd5EcC7EFApu wIhgWccFNI2y5BjGw79X6 9sIHdpZHRoPSIyMCUiIHZ yeHcchp3mzT1r Ii8+HWAdpMD6fVW8rT1rW zVtGfQ4OKubE052BkQmkY VcZgziR01eE0IzsAX+PHR cUeb7WZQcgJid LK8bqHGbHHgtOv5jWYX3U zXrGgOdBVqiY4KtELPjpm apqlkpmTU1YURaFQMirP7 8Qb9bjGpuUWGx mFJOzD0wijist8nnfouwK dPvZCTbPZe3WTn3WAPjiW oeCmHoRSS7OxO2OKD1qTI pcX3ovNgoirvk rI7iA6McEKRebntoSe44f J1oHbUoBvG2XEmjDxr+Rk 4BDRQYEHOSQXLIXTJDPU2 2VD49lKDuj6S7 xFB4W9PoQEIckxfpabwsj LT1MOTwQOOqxD06wTWyML pgEc8ub8U2s023HZLmTJS fcY84Wj8ebGtt ATRpfXJUaU4quzsau6qan wstCoPvVZIdVLm8TOx9BQ OiaQwrZnZnWWQ9ToP2KGY 1xJMntD3gdWci ovlgfD7kLnd+MDMvMzEvM Tg5SZsrtFC+WHFmOYG4hA zgJYwbQNZzxW3zAWHtA4v 2XhZrLtP5NBua S8ShGRFhtrhxGt23oM2qO rKcWtV2YHvcJ8OkjbA7WM TguCIeGOqyZKA5L96kj7P 6HQUuPUByFWT5 qHV9pQ8dfVcazjuafYHyh DsgdmVydGljYWwtYWxpZ2 03QDOurGhpVlG8WPcqFFS mBY44AA76wKBn l1X6nDT4C1EkFDZoloomv obfmCB0HQCiRLHpeE57kD NpCSgwTj3zp6M1m808SUW sFLIylH29Yw3x pRqzDDSwtDDRoN9mxljsk 7qdijhtDfBkBVSzJLm3ZN a6DAVzkPazLsLlZAL6SpG 2SJT5eONwrV0x hOgaxwabiM0cKys+RmVtY IatLA98WL86bTJsq8D6wZ D3M4RrPXRygchboretoAS 2CBCtTPNycC28 iYGnRDvgJi9qu6D2t165P EWsMCEulB14Lg1ihXmuYP WzzYWYdJ2gjkplx1bcsvp gIzAwMDAwMDt0 ZFb7SXZevAjyEuJxFST5Y aU6XBJ5jXJpyU0avWdihm hktO9xXou+KE0htjybkrM 1XV65GQ73W0Rc PjwvdGFibGU+PHRhYmxlI HdpZHRoPScxMDAlJyBzdH vgXZ7aXw6lAJVxWDAkyMp yxMGtLzXaq0yz BPIaNUbqBS6icXnoM6Lct BD9OPCde6j0Bk92Z74fF3 JvdXA+ZTWwjTR5bKT2dE3 qXnBtZiM1MRvk W392BuGmbRPeNgwvi6qij 5uteTh3QtCuULSmwhJypE dhVVV3h5ZzSz04T87yEOh pZHRoPSIyMCUi MIQhmYsdwu0ciF9eUl9+P VYjgUG4uUK9rC1fDhWvQj H6MAnnH116AmGaaZWtFdr cK10rI8YpwHW+ SZXeQsz9ZZJtiBviUP3to WZgRPnsBp2yXMI9XtXlHp PlSQlsB7YaFGKslavrhyr jkSZ9PMOpOKUx tX69Eq4shDblWl8uEEHdQ DT5QHOuqQRwH5LewS8bFs KdEOTjVPLlX1BabCCkCXk jZ313ALvqQgX5 ICSeakLfD4YlXAUazKbaQ vJ8y1S0Lr7KxZyfvPKtAE 2sQcXpULz5U4ZeSih4ELP maRxhVS6psUAe QUpkVy5ycDkqkVuoPJ4cR XQklfbns698LsPyq5iqXN KorBIcDPjnXNC8Z48mw2F 3ZSBtSRMoTRB3 oIY3sS4hwFwnohwmxTFiu DsgdmVydGljYWwtYWxpZ2 65YKYpxDkbQsWORmv4U2H tWgl1DJSbmSll SD5geGMzFSzoOi0boWtxt EuxFZ0bZSEhiiuvd739Wa Bsz0dkHCLpmKQzEWozOHO 9L01pn8Z5QTPi NPWwEAU5zEK9bB5pvJgxr jogbGVmdDsgdmVydGljYW iyRPugT550JHEdoQnbKn8 MSqs1X0ApHvb5 LOLduTvgYH7lfEIgHSddV q2gtSxbnKsgRZ3iZBGvvr txz190IbLhj5hqNOXybEU lFPbkROU3C63s l5P8TRQbIAUaVEA8nXT0x O5oaXpfzvktsJRnnYnpgx LkqHadNXjlJUnmA564KPE vcDsnPlBheWVy OjwvdGQ+IF08qt26T4DzR gtgWxh9MGTxMFF0uEE9lW 3oUQDfDGrff1Z1zXJ9N5O pfdZmwi5wz8uc YXBzZTog (more content not included)... Normal [facility] ECG 12 lead ECGon 01-14-2023 [place] 12 [place] [id number] Electrocardiograph Report Signed Patient: Lorna Deutsch MR#: [id number] 98 : 1985 Acct:[id number] Age/Sex: 38 / F ADM Date: 01/12/23 Loc: Room: [address] [place] [id number] Type: ADM IN Attending Dr: Bobo Shields [...] Referred By: Electronically Signed By:RACHAEL RUDD MD [facility]GED WITH [facility] Transcribed By: MUS Signed By Kane Rudd MD 01/14/23 1634 Normal [facility] ED Note-Physicianon 01-14-20 ED Note-Physician [id number]:127 Normal [facility] Outside Hospital Correspo ndenceon 01-13-2023 Outside [facility] Correspondence [id number]:127 Normal [facility] Alanine aminotransferase [En zymatic activity/volume] in Serum or PlasmaOrdered By: Jose Moses on 01-12-2023 ALT [Catalytic activity/Vol] 10 U/L 7-52 [facility] Albumin [Mass/volume] in Ser um or Plasma by Bromocresol green (BCG) dye binding methoOrdered By: Jose Moses on 01-12-2023 Albumin BCG dye [Mass/Vol] 5.3 g/dL 3.5-5.7 [facility] Alkaline phosphatase [Enzyma tic activity/volume] in Serum or PlasmaOrdered By: Jose Moses on 01-12-2023 ALP [Catalytic activity/Vol] 50 U/L 34-104 [facility] Amphetamine Screen Ql (U)Ord ered By: Jose Moses on 01-12-2023 Amphetamines Ql (U) Positive Negative [facility] Aspartate aminotransferase [ Enzymatic activity/volume] in Serum or PlasmaOrdered By: Jose Moses on 01-12-2023 AST [Catalytic activity/Vol] 13 U/L 13-39 [facility] Automated erythrocytes count in urine sediment (number/area)Ordered By: Jose Moses on 01-12-2023 RBC Auto (Urine sed) [#/Area] 3-4 [HPF] 0-4 [facility] Automated leukocytes count i n urine sediment (number/area)Ordered By: Jose Moses on 01-12-2023 WBC Auto (Urine sed) [#/Area] 10-19 [HPF] 0-4 [facility] Barbiturates [Presence] in U rine by Screen methodOrdered By: Jose Moses on 01-12-2023 Barbiturates Screen Ql (U) Negative Negative [facility] Basophils Auto (Bld) [#/Vol] Ordered By: Jose Moses on 01-12-2023 Basophils (Bld) [#/Vol] 0.0 10*3/uL 0.0-0.2 [facility] Basophils/100 WBC Auto (Bld) Ordered By: Jose Moses on 01-12-2023 Basophils/100 WBC (Bld) 0.3 % . [facility] Benzodiazepines Screen Ql (U )Ordered By: Jose Moses on 01-12-2023 Benzodiazepines Ql (U) Negative Negative [facility] Benzoylecgonine [Presence] i n Urine by Screen methodOrdered By: Jose Moses on 01-12-2023 Benzoylecgonine Screen Ql (U) Negative Negative [facility] Bilirubin Test strip Ql (U)O rdered By: Jose Moses on 01-12-2023 Bilirubin Ql (U) Negative Negative [facility] Bilirubin.total [Mass/volume ] in Serum or PlasmaOrdered By: Jose Moses on 01-12-2023 Bilirubin [Mass/Vol] 0.6 mg/dL 0.3-1.[address] [facility] CARDIAC STACI ADMITon 023 CK [Catalytic activity/Vol] 48 U/L Normal 26-192 [facility] Comment on above: Performed By: #### P REG #### [facility] [address] [place] [address] Dr. Efren Parra CK.MB [Mass/Vol] 0.83 ng/mL Normal <=3.60 [facility] Comment on above: Performed By: #### P REG #### [facility] [address] [place] [address] Dr. Efren Parra HSTROP <4.0 Normal 4.0-51.3 [facility] Comment on above: Result Comment: CUT- OFF POINTS HAVE BEEN ESTABLISHED BASED ON THE FOURTH UNIVERSAL DEFINITIONS OF MYOCARDIAL INFARCTION. THE UPPER REFERENCE LIMIT (URL) OF TROPONIN, DEFINED THE 99TH PERCENTILE OF cTnI DISTRIBUTION IN A REFERENCE POPULATION, HAS BEEN CONFIRMED THE DECISION THRESHOLD FOR [place] DIAGNOSIS. Performed By: #### P REG #### [facility] [address] [place] [address] Dr. Efren Parra FEMI 31 ng/mL Normal 9-82 [facility] Comment on above: Performed By: #### P REG #### [facility] [address] [place] [address] Dr. Efren Parra CBC AUTO DIFFon 01-12-2023 BASO # 0.0 103/ul Normal 0.0-0.1 [facility] Comment on above: Performed By: #### C BC #### [facility] [address] [place] [address] Dr. Efren Parra Basophils/100 WBC (Bld) 0.1 % Critically low 0.2-2.0 [facility] Comment on above: Performed By: #### C BC #### [facility] [address] [place] [address] Dr. Efren Parra EO # 0.0 103/ul Normal 0.0-0.7 [facility] Comment on above: Performed By: #### C BC #### [facility] [address] [place] [address] Dr. Efren Parra Eosinophils/100 WBC (Bld) 0.1 % Critically low 0.9-7.0 [facility] Comment on above: Performed By: #### C BC #### [facility] [address] [place] [address] Dr. Efren Parra Erythrocyte distribution width (RBC) [Ratio] 13.2 % Normal 11.0-15.0 [facility] Comment on above: Performed By: #### C BC #### [facility] [address] [place] [address] Dr. Efren Parra Hematocrit (Bld) [Volume fraction] 45.3 % Normal 36.0-48.0 [facility] Comment on above: Performed By: #### C BC #### [facility] [address] [place] [address] Dr. Efren Parra Hemoglobin (Bld) [Mass/Vol] 15.4 g/dL Normal 12.0-16.0 [facility] Comment on above: Performed By: #### C BC #### [facility] [address] [place] [address] Dr. Efren Parra IG # 0.01 10e3/ul Normal 0.00-0.03 [facility] Comment on above: Performed By: #### C BC #### [facility] [address] [place] [address] Dr. Efren Parra IG % 0.1 % Normal 0.0-0.5 [facility] Comment on above: Performed By: #### C BC #### [facility] [address] [place] [address] Dr. Efren Parra LYMPH # 2.3 103/ul Normal 1.2-3.8 [facility] Comment on above: Performed By: #### C BC #### [facility] [address] [place] [address] Dr. Efren Parra Lymphocytes/100 WBC (Bld) 31.1 % Normal 20.5-60.0 [facility] Comment on above: Performed By: #### C BC #### [facility] [address] [place] [address] Dr. Efren Parra MANUAL DIFF REQ NO Normal [facility] Comment on above: Performed By: #### C BC #### [facility] [address] [place] [address] Dr. Efren Parra MCH (RBC) [Entitic mass] 30.4 pg Normal 26.7-34.0 [facility] Comment on above: Performed By: #### C BC #### [facility] [address] [place] [address] Dr. Efren Parra MCHC (RBC) [Mass/Vol] 34.0 g/dL Normal 29.9-35.2 [facility] Comment on above: Performed By: #### C BC #### [facility] [address] [place] [address] Dr. Efren Parra MCV (RBC) [Entitic vol] 89.5 fL Normal 81.0-99.0 [facility] Comment on above: Performed By: #### C BC #### [facility] [address] [place] [address] Dr. Efren Parra MONO # 0.4 103/ul Normal 0.3-0.8 [facility] Comment on above: Performed By: #### C BC #### [facility] [address] [place] [address] Dr. Efren Parra Monocytes/100 WBC (Bld) 5.6 % Normal 1.7-12.0 [facility] Comment on above: Performed By: #### C BC #### [facility] [address] [place] [address] Dr. Efren Parra NEUT # 4.6 103/ul Normal 1.4-6.5 [facility] Comment on above: Performed By: #### C BC #### [facility] [address] [place] [address] Dr. Efren Parra Neutrophils/100 WBC (Bld) 63.0 % Normal 43.0-75.0 [facility] Comment on above: Performed By: #### C BC #### [facility] [address] [place] [address] Dr. Efren Parra Platelet mean volume (Bld) [Entitic vol] 10.5 fL Normal 9.5-13.5 [facility] Comment on above: Performed By: #### C BC #### [facility] [address] [address] [address] Efren Parra PLT 262 103/ul Normal 150-450 [facility] Comment on above: Performed By: #### C BC #### [facility] [address] [address] [address] Efren Parra RBC 5.06 106/ul Normal 4.20-5.40 [facility] Comment on above: Performed By: #### C BC #### [facility] [address] [address] [address] Efren Parra WBC 7.3 103/ul Normal 4.0-11.0 [facility] Comment on above: Performed By: #### C BC #### [facility] [address] [address] [address] Efren Parra Calcium [Mass/volume] in Ser um or PlasmaOrdered By: Jose Moses on 01-12-2023 Calcium [Mass/Vol] 10.7 mg/dL 8.6-10.3 [facility] Cannabinoids [Presence] in U rine by Screen methodOrdered By: Jose Moses on 01-12-2023 Cannabinoids Screen Ql (U) Negative Negative [facility] Comment on above: These are unconfirme d results and should not be used for legal purposes. Drug Cut-Off Concentration: AMPH 1000 ng/mL SARA 200 ng/mL MARTÍNEZ 200 ng/mL COCM 300 ng/mL OP 300 ng/mL PCP 25 ng/mL THC 20 ng/mL Carbon dioxide, total [Moles /volume] in Serum or PlasmaOrdered By: Jose Moses on 01-12-2023 CO2 [Moles/Vol] 25.9 mmol/L 21.0-31.0 [facility] Chloride [Moles/volume] in S maris or PlasmaOrdered By: Jose Moses on 01-12-2023 Chloride [Moles/Vol] 103 mmol/L 98-[address] [facility] Color Auto (U)Ordered By: Shaka Moses on 01-12-2023 Color (U) Yellow Yellow [facility] Complete Blood Count Auto Di ffon 01-12-2023 Basophils (Bld) [#/Vol] 0.0 10*3/uL Normal 0.0-0.2 [facility] Comment on above: Result Comment: PERF ORMED BY: [place] [address] PATHOLOGIST SILVICULTURE PROFESSOR DANYELL LIVINGSTON M.D. Performed By: #### U HCG, URDS, ADDONUAPLUS, CUU #### [facility] [address] [place] [address] Basophils/100 WBC (Bld) 0.3 % Normal . [facility] Comment on above: Performed By: #### U HCG, URDS, ADDONUAPLUS, CUU #### [facility] [address] [place] [address] [place] Eosinophils (Bld) [#/Vol] 0.0 10*3/uL Normal 0.0-0.45 [facility] Comment on above: Performed By: #### U HCG, URDS, ADDONUAPLUS, CUU #### [facility] [address] [place] [address] Eosinophils/100 WBC (Bld) 0.2 % Normal . [facility] Comment on above: Performed By: #### U HCG, URDS, ADDONUAPLUS, CUU #### [facility] [address] [place] [address] Erythrocyte distribution width (RBC) [Ratio] 14.2 % Normal 11.9-15.3 [facility] Comment on above: Performed By: #### U HCG, URDS, ADDONUAPLUS, CUU #### [facility] [address] [place] [address] Hematocrit (Bld) [Volume fraction] 47.7 % High 34.0-46.4 [facility] Comment on above: Performed By: #### U HCG, URDS, ADDONUAPLUS, CUU #### [place] [id number] [place] Hemoglobin (Bld) [Mass/Vol] 16.1 g/dL High 11.8-15.4 [facility] Comment on above: Performed By: #### U HCG, URDS, ADDONUAPLUS, CUU #### [address] Lymphocytes (Bld) [#/Vol] 1.7 10*3/uL Normal 1.00-4.8 [facility] Comment on above: Performed By: #### U HCG, URDS, ADDONUAPLUS, CUU #### [address] Lymphocytes/100 WBC (Bld) 25.4 % Normal . [facility] Comment on above: Performed By: #### U HCG, URDS, ADDONUAPLUS, CUU #### [address] MCH (RBC) [Entitic mass] 30.9 pg Normal 24.7-34.3 [facility] Comment on above: Performed By: #### U HCG, URDS, ADDONUAPLUS, CUU #### [address] MCV (RBC) [Entitic vol] 91.9 fL Normal 80-100 [facility] Comment on above: Performed By: #### U HCG, URDS, ADDONUAPLUS, CUU #### [address] Mean Corpuscular HGB Conc 33.7 g/dL Normal 32.0-35.0 [facility] Comment on above: Performed By: #### U HCG, URDS, ADDONUAPLUS, CUU #### [place] [address] [place] Monocytes (Bld) [#/Vol] 0.3 10*3/uL Normal 0.0-0.8 [facility] Comment on above: Performed By: #### U HCG, URDS, ADDONUAPLUS, CUU #### [address] [address] [place] Monocytes/100 WBC (Bld) 17.67 % Normal 0.00-20.00 [facility] Comment on above: Performed By: #### U HCG, URDS, ADDONUAPLUS, CUU #### [facility] [address] [place] [address] [place] Monocytes/100 WBC (Bld) 5.2 % Normal . [facility] Comment on above: Performed By: #### U HCG, URDS, ADDONUAPLUS, CUU #### [facility] [address] [place] [address] [place] Neutrophils (Bld) [#/Vol] 4.5 10*3/uL Normal 1.8-7.7 [facility] Comment on above: Performed By: #### U HCG, URDS, ADDONUAPLUS, CUU #### [facility] [address] [place] [address] Neutrophils/100 WBC (Bld) 68.9 % Normal . [facility] Comment on above: Performed By: #### U HCG, URDS, ADDONUAPLUS, CUU #### [facility] [address] [place] [address] [place] NRBC% 0.1 /100{WBC} Normal 0-0.5 [facility] Comment on above: Performed By: #### U HCG, URDS, ADDONUAPLUS, CUU #### [facility] [address] [place] [address] [place] Platelet mean volume (Bld) [Entitic vol] 8.7 fL Normal 6.3-10.7 [facility] Comment on above: Performed By: #### U HCG, URDS, ADDONUAPLUS, CUU #### [facility] [address] [place] [address] [place] Platelets (Bld) [#/Vol] 275 10*3/uL Normal 150-450 [facility] Comment on above: Performed By: #### U HCG, URDS, ADDONUAPLUS, CUU #### [facility] [address] [place] [address] [place] RBC (Bld) [#/Vol] 5.19 10*6/uL High 3.60-5.00 [facility] Comment on above: Performed By: #### U HCG, URDS, ADDONUAPLUS, CUU #### [address] WBC (Bld) [#/Vol] 6.5 10*3/uL Normal 3.8-11.6 [facility] Comment on above: Performed By: #### U HCG, URDS, ADDONUAPLUS, CUU #### [address] Comprehensive Metabolic Pane selam 01-12-2023 Albumin [Mass/Vol] 5.3 g/dL Normal 3.5-5.7 [facility] Comment on above: Performed By: #### U HCG, URDS, ADDONUAPLUS, CUU #### [address] Albumin/Globulin [Mass ratio] 1.4 {ratio} Normal [facility] Comment on above: Performed By: #### U HCG, URDS, ADDONUAPLUS, CUU #### [address] ALP [Catalytic activity/Vol] 50 U/L Normal 34-104 [facility] Comment on above: Performed By: #### U HCG, URDS, ADDONUAPLUS, CUU #### [address] ALT [Catalytic activity/Vol] 10 U/L Normal 7-52 [facility] Comment on above: Performed By: #### U HCG, URDS, ADDONUAPLUS, CUU #### [address] Anion gap [Moles/Vol] 13.1 mmol/L Normal 6.0-15.0 [facility] Comment on above: Performed By: #### U HCG, URDS, ADDONUAPLUS, CUU #### [address] AST [Catalytic activity/Vol] 13 U/L Normal 13-39 [facility] Comment on above: Performed By: #### U HCG, URDS, ADDONUAPLUS, CUU #### [facility] [address] Bilirubin [Mass/Vol] 0.6 mg/dL Normal 0.3-1.[address] [facility] Comment on above: Performed By: #### U HCG, URDS, ADDONUAPLUS, CUU #### [facility] [address] Calcium [Mass/Vol] 10.7 mg/dL High 8.6-10.3 [facility] Comment on above: Performed By: #### U HCG, URDS, ADDONUAPLUS, CUU #### [facility] [address] Chloride [Moles/Vol] 103 mmol/L Normal 98-[address] [facility] Comment on above: Performed By: #### U HCG, URDS, ADDONUAPLUS, CUU #### [facility] [address] CO2 [Moles/Vol] 25.9 mmol/L Normal 21.0-31.0 [facility] Comment on above: Performed By: #### U HCG, URDS, ADDONUAPLUS, CUU #### [facility] [address] [place] [address] [place] Creatinine [Mass/Vol] 0.65 mg/dL Normal 0.60-1.20 [facility] Comment on above: Performed By: #### U HCG, URDS, ADDONUAPLUS, CUU #### [facility] [address] [place] [address] [place] Creatinine Clr Calc Pharmacy 105.60 Normal [facility] Comment on above: Result Comment: PERF ORMED BY: [place] [address] PATHOLOGIST SILVICULTURE PROFESSOR DANYELL LIVINGSTON M.D. Performed By: #### U HCG, URDS, ADDONUAPLUS, CUU #### [facility] [address] [place] [address] [place] GFR/1.73 sq M.predicted MDRD (S/P/Bld) [Vol rate/Area] mL/min/{1.73_m2} Normal [facility] Comment on above: Performed By: #### U HCG, URDS, ADDONUAPLUS, CUU #### [facility] [address] Globulin (S) [Mass/Vol] 3.9 g/dL Normal [facility] Comment on above: Performed By: #### U HCG, URDS, ADDONUAPLUS, CUU #### [address] Glucose [Mass/Vol] 107 mg/dL High 70-100 [facility] Comment on above: Result Comment: [facility] Glucose Reference Range is dependent on time and content of last meal. Glucose of more than 200 mg/dL in a nonstressed, ambulatory subject supports the diagnosis of Diabetes Mellitus. ADA recommended reference range Performed By: #### U HCG, URDS, ADDONUAPLUS, CUU #### [facility] [address] [place] [address] Potassium [Moles/Vol] 3.0 mmol/L Low 3.5-5.1 [facility] Comment on above: Performed By: #### U HCG, URDS, ADDONUAPLUS, CUU #### [facility] [address] [place] [address] [place] Protein [Mass/Vol] 9.2 g/dL High 6.4-8.9 [facility] Comment on above: Performed By: #### U HCG, URDS, ADDONUAPLUS, CUU #### [facility] [address] [place] [address] [place] Sodium [Moles/Vol] 139 mmol/L Normal 136-145 [facility] Comment on above: Performed By: #### U HCG, URDS, ADDONUAPLUS, CUU #### [place] [address] [place] Urea nitrogen [Mass/Vol] 14 mg/dL Normal 7-25 [facility] Comment on above: Performed By: #### U HCG, URDS, ADDONUAPLUS, CUU #### [facility] [address] [place] [id number] [facility] Consent for Treatmenton 04-0 Consent for Treatment [id number] .[id number]:127 Normal [facility] Creatinine [Mass/volume] in Serum or PlasmaOrdered By: Jose Moses on 01-12-2023 Creatinine [Mass/Vol] 0.65 mg/dL 0.60-1.20 [facility] DRUG SCREEN RAPID (URINE)on 01-12-2023 AMP Positive Abnormal NEGATIVE [facility] Comment on above: Performed By: #### C BC #### [facility] [address] [place] [address] Dr. Efren Parra BAR Negative Normal NEGATIVE [facility] Comment on above: Performed By: #### C BC #### [facility] [address] [place] [address] Dr. Efren Parra BUP Negative Normal NEGATIVE [facility] Comment on above: Performed By: #### C BC #### [facility] [address] [place] [address] Dr. Efren Parra BZO Negative Normal NEGATIVE [facility] Comment on above: Performed By: #### C BC #### [facility] [address] [place] [address] Dr. Efren Parra RENEA Negative Normal NEGATIVE [facility] Comment on above: Performed By: #### C BC #### [facility] [address] [place] [address] Dr. Efren Parra CUT-OFFS SEE BELOW Normal [facility] Comment on above: Result Comment: AMP [...] ng/mL Performed By: #### C BC #### [facility] [address] [place] [address] Dr. Efren Parra DRUG CUT HEADER DRUG CLASS TEST SYSTEM CUT-OFF CONCENTRATIONS ARE FOLLOWS: Normal [facility] Comment on above: Performed By: #### C BC #### [facility] [address] [place] [address] Dr. Efren Parra mAMP Positive Abnormal NEGATIVE [facility] Comment on above: Performed By: #### C BC #### [facility] [address] [place] [address] Dr. Efren Parra MTD Positive Abnormal NEGATIVE [facility] Comment on above: Performed By: #### C BC #### [facility] [address] [place] [address] Dr. Efren Parra OPI Negative Normal NEGATIVE [facility] Comment on above: Performed By: #### C BC #### [facility] [address] [place] [address] Dr. Efren Parra OXY Negative Normal NEGATIVE [facility] Comment on above: Performed By: #### C BC #### [facility] [address] [place] [address] Dr. Efren Parra PCP Negative Normal NEGATIVE [facility] Comment on above: Performed By: #### C BC #### [facility] [address] [place] [address] Dr. Efren Parra PPX Negative Normal NEGATIVE [facility] Comment on above: Performed By: #### C BC #### [facility] [address] [place] [address] Dr. Efren Parra TCA Positive Abnormal NEGATIVE [facility] Comment on above: Performed By: #### C BC #### [facility] [address] [place] [address] Dr. Efren Parra THC Negative Normal NEGATIVE [facility] Comment on above: Performed By: #### C BC #### [facility] [address] [address] [address] Efren Parra Dipstick and Microscopicon 0 01-12-2023 Appearance (U) Cloudy Critically abnormal Clear [facility] Comment on above: Order Comment: Name Collection Type:: Clean-Voided Midstream Performed By: #### U HCG, URDS, ADDONUAPLUS, CUU #### [facility] [address] [place] [address] [place] Bacteria,Urine 4+ High None Seen [facility] Comment on above: Order Comment: Name Collection Type:: Clean-Voided Midstream Performed By: #### U HCG, URDS, ADDONUAPLUS, CUU #### [facility] [address] [place] [address] [place] Bilirubin,Urine Negative Normal Negative [facility] Comment on above: Order Comment: Name Collection Type:: Clean-Voided Midstream Performed By: #### U HCG, URDS, ADDONUAPLUS, CUU #### [facility] [address] [place] [address] [place] Color (U) Yellow Normal Yellow [facility] Comment on above: Order Comment: Name Collection Type:: Clean-Voided Midstream Performed By: #### U HCG, URDS, ADDONUAPLUS, CUU #### [facility] [address] [place] [address] [place] Glucose Ql (U) Normal Normal Normal [facility] Comment on above: Order Comment: Name Collection Type:: Clean-Voided Midstream Performed By: #### U HCG, URDS, ADDONUAPLUS, CUU #### [facility] [address] [place] [address] [place] Hyaline Casts,Urine 9-19 High 0-8 [facility] Comment on above: Order Comment: Name Collection Type:: Clean-Voided Midstream Performed By: #### U HCG, URDS, ADDONUAPLUS, CUU #### [facility] [address] [place] [address] [place] Ketones Ql (U) Trace High Negative [facility] Comment on above: Order Comment: Name Collection Type:: Clean-Voided Midstream Performed By: #### U HCG, URDS, ADDONUAPLUS, CUU #### [address] Leukocyte esterase Test strip Ql (U) 2+ High Negative [facility] Comment on above: Order Comment: Name Collection Type:: Clean-Voided Midstream Performed By: #### U HCG, URDS, ADDONUAPLUS, CUU #### [facility] [address] [place] [address] Nitrite,Urine Positive High Negative [facility] Comment on above: Order Comment: Name Collection Type:: Clean-Voided Midstream Performed By: #### U HCG, URDS, ADDONUAPLUS, CUU #### [address] Occult Blood,Urine Trace High Negative [facility] Comment on above: Order Comment: Name Collection Type:: Clean-Voided Midstream Performed By: #### U HCG, URDS, ADDONUAPLUS, CUU #### [facility] [address] [place] [address] pH (U) 6.0 [pH] Normal 5.0-9.0 [facility] Comment on above: Order Comment: Name Collection Type:: Clean-Voided Midstream Performed By: #### U HCG, URDS, ADDONUAPLUS, CUU #### [facility] [address] [place] [address] [place] Protein,Urine Negative Normal Negative [facility] Comment on above: Order Comment: Name Collection Type:: Clean-Voided Midstream Performed By: #### U HCG, URDS, ADDONUAPLUS, CUU #### [facility] [address] [place] [address] [place] RBC,Urine 3-4 Normal 0-4 [facility] Comment on above: Order Comment: Name Collection Type:: Clean-Voided Midstream Performed By: #### U HCG, URDS, ADDONUAPLUS, CUU #### [address] [place] [address] [place] Specificy [place],Urine 1.020 Normal 1.001-1.030 [facility] Comment on above: Order Comment: Name Collection Type:: Clean-Voided Midstream Performed By: #### U HCG, URDS, ADDONUAPLUS, CUU #### [address] Squamous Epithelial Cell,Urine 5-9 High 0-2 [facility] Comment on above: Order Comment: Name Collection Type:: Clean-Voided Midstream Performed By: #### U HCG, URDS, ADDONUAPLUS, CUU #### [address] Urobilinogen,Urine Normal Normal Normal [facility] Comment on above: Order Comment: Name Collection Type:: Clean-Voided Midstream Performed By: #### U HCG, URDS, ADDONUAPLUS, CUU #### [address] WBC,Urine 10-19 High 0-4 [facility] Comment on above: Order Comment: Name Collection Type:: Clean-Voided Midstream Performed By: #### U HCG, URDS, ADDONUAPLUS, CUU #### [address] Discharge Instructionson Discharge Instructions [id number] 1.00CD:127 Normal [facility] Drug Screen,Urineon 01-13-20 23 Amphetamine Screen,Urine Positive High Negative [facility] Comment on above: Performed By: #### U HCG, URDS, ADDONUAPLUS, CUU #### [address] Barbiturate Screen,Urine Negative Normal Negative [facility] Comment on above: Performed By: #### U HCG, URDS, ADDONUAPLUS, CUU #### [address] Benzodiazepines Screen,Urine Negative Normal Negative [facility] Comment on above: Performed By: #### U HCG, URDS, ADDONUAPLUS, CUU #### [facility] [address] [place] [address] Cannabinoid Screen,Urine Negative Normal Negative [facility] Comment on above: Result Comment: Thes e are unconfirmed results and should not be used for legal purposes. Drug Cut-Off Concentration: AMPH 1000 ng/mL SARA 200 ng/mL MARTÍNEZ 200 ng/mL COCM 300 ng/mL OP 300 ng/mL PCP 25 ng/mL THC 20 ng/mL PERFORMED BY: [place] [address] PATHOLOGIST SILVICULTURE PROFESSOR DANYELL LIVINGSTON M.D. Performed By: #### U HCG, URDS, ADDONUAPLUS, CUU #### [address] Cocaine Screen,Urine Negative Normal Negative [facility] Comment on above: Performed By: #### U HCG, URDS, ADDONUAPLUS, CUU #### [address] Opiate Screen,Urine Negative Normal Negative [facility] Comment on above: Performed By: #### U HCG, URDS, ADDONUAPLUS, CUU #### [address] Phencyclidine Screen,Urine Negative Normal Negative [facility] Comment on above: Performed By: #### U HCG, URDS, ADDONUAPLUS, CUU #### [facility] [address] [place] [address] ED Clinical Summaryon 2022 ED Clinical Summary [place] [id number] ED Clinical Summary Person Information Name: LORNA DEUTSCH[place] Age: 38 Years : 1985 Sex: Female Language: Bahamian PCP: Cris PENA CNP Marital Status: Phone: [phone] Visit Id: Visit Reason: Anxiety; Medical problem [...] 01/12/2023 02:02:29 01/12/2023 02:02:29 01/12/2023 02:02:29 ADDRESS: [address] [place] [address] [id number] [phone] PHYS DOC NOTES: MEDICAL INFORMATION: Prescriptions Given: [...] With: Address: When: Cris PENA [address] [id number] Business (1) In 3 days 01/15/2023 Comments: You can use the hydroxyzine every 8 hours as needed. Please follow-up with your primary care doctor next 2 to 3 days. Please return to the ED for any new or worsening symptoms DIAGNOSIS: Anxiety; Drug-seeking behavior Normal [facility] ED Note-Nursingon 01-12-2023 ED Note-Nursing [...] her boyfriend to drive her home Normal [facility] ED Note-Nursing pt arrived to ed fro m home via private car with her boyfriend c/o anxiety. pt states she missed her methadone appointment 4 days ago and has an appointment this morning. pt asking for ativan. pt denies any other compaints at this time. pt is very restless on assessment. Normal [facility] ED Note-Physicianon 01-13-20 ED Note-Physician Basic [...] and Complexity of Problems Differential Diagnosis: [] [facility] Data External documents reviewed: [] My [...] In 3 days 01/15/2023 EDT [address] [place] [address] Business (1) Additional Instructions: You can use [...] methadone, 180 (more content not included)... Normal [facility] Comment on above: Result [...] Follow these instructions at home: ? Take twpl-xma-fdaleye and prescription medicines only as told by [...] A persistent (more content not included)... Normal [facility] ED Patient Summaryon 023 ED Patient Summary [place] [id number] Patient Discharge Instructions Person Information Name: LORNA DEUTSCH Age: 38 Years Arrival Date: 01/12/2023 01:30:57 Discharge Diagnosis: Anxiety; Drug-seeking behavior Primary Care Physician: Cris PENA CNP Provider Information Primary Provider: Norma Dietz DO Advanced Microbiology Professor:None The exam and treatment you received in the Emergency Department were for an urgent problem and are not intended as complete care. It is important that you follow up with a doctor, nurse practitioner, or physician?s assistant director of public works for ongoing care. If your symptoms become [...] Instructions: With: Address: When: Cris PENA [address] [place] [address] Business (1) In 3 days 01/15/2023 Comments: [...] opioids can be used to help relieve eyqsbrim-pf-xriqwh pain and are often prescribed following a [...] and overdose. (more content not included)... Normal [facility] ER URINE PROFILEon 3 Bilirubin Ql (U) Negative Normal NEGATIVE [facility] Comment on above: Performed By: #### C #### [facility] [address] [place] [address] Dr. Efren Parra Clarity (U) CLEAR Normal CLEAR [facility] Comment on above: Performed By: #### C BC #### [facility] [address] [place] [address] Dr. Efren Parra Color (U) YELLOW Normal YELLOW [facility] Comment on above: Performed By: #### C BC #### [facility] [address] [place] [address] Dr. Efren SETH A micrscopic examination will be performed if indicated. Normal [facility] Comment on above: Performed By: #### C BC #### [facility] [address] [place] [address] Dr. Efren Parra Glucose Ql (U) Negative Normal NEGATIVE [facility] Comment on above: Performed By: #### C BC #### [facility] [address] [place] [address] Dr. Efren Parra Hemoglobin Ql (U) SMALL Abnormal NEGATIVE [facility] Comment on above: Performed By: #### C BC #### [facility] [address] [place] [address] Dr. Efren Parra Ketones Ql (U) 15 mg/dl Abnormal NEGATIVE [facility] Comment on above: Performed By: #### C BC #### [facility] [address] [place] [address] Dr. Efren Parra LEUKOCYTES Negative Normal NEGATIVE [facility] Comment on above: Performed By: #### C BC #### [facility] [address] [place] [address] Dr. Efren Parra Nitrite Ql (U) Negative Normal NEGATIVE [facility] Comment on above: Performed By: #### C BC #### [facility] [address] [place] [address] Dr. Efren Parra pH (U) 7.0 [pH] Normal 5-9 [facility] Comment on above: Performed By: #### C BC #### [facility] [address] [place] [address] Dr. Efren Parra SPEC GRAVITY 1.020 Normal 1.005-<=1.025 [facility] Comment on above: Performed By: #### C BC #### [facility] [address] [place] [address] Dr. Efren Parra UA PROTEIN Negative Normal NEGATIVE/ TRACE [facility] Comment on above: Performed By: #### C BC #### [facility] [address] [place] [address] Dr. Efern Parra UR MICRO IND INDICATED Normal [facility] Comment on above: Performed By: #### C BC #### [facility] [address] [place] [address] Dr. Efren Parra Urobilinogen Qn (U) 1.0 {Adria'U}/dL Normal 0.2 - 1. 0 [facility] Comment on above: Performed By: #### C BC #### [facility] [address] [place] [address] Dr. Efren Parra ETHANOL (BLD ALC)on 01-13-20 23 ALC NOTE NOTE: 80 mg/dl is th e legal limit for a blood alcohol level Normal [facility] Comment on above: Performed By: #### P REG #### [facility] [address] [place] [address] Dr. Efren Parra Ethanol [Mass/Vol] mg/dL Normal [facility] Comment on above: Performed By: #### P REG #### [facility] [address] [place] [address] Dr. Efren Parra Eosinophils Auto (Bld) [#/Vo l]Ordered By: Jose Moses on 01-12-2023 Eosinophils (Bld) [#/Vol] 0.0 10*3/uL 0.0-0.45 [facility] Eosinophils/100 WBC Auto (Bl d)Ordered By: Jose Moses on 01-12-2023 Eosinophils/100 WBC (Bld) 0.2 % . [facility] Erythrocyte distribution wid th Auto (RBC) [Ratio]Ordered By: Jose Moses on 01-12-2023 Erythrocyte distribution width (RBC) [Ratio] 14.2 % 11.9-15.3 [facility] Ethanol [Mass/volume] in Ser um or PlasmaOrdered By: Jose Moses on 01-12-2023 Ethanol [Mass/Vol] mg/dL [facility] Ethanol [Mass/Vol] TNP [facility] Comment on above: Test not performed Ethyl Alcohol Profileon Ethanol [Mass/Vol] mg/dL Normal [facility] Comment on above: Performed By: #### U HCG, URDS, ADDONUAPLUS, CUU #### [facility] [address] Percent Ethanol Not performed Normal [facility] Comment on above: Result Comment: PERF ORMED BY: [place] [address] PATHOLOGIST SILVICULTURE PROFESSOR DANYELL LIVINGSTON M.D. Performed By: #### U HCG, URDS, ADDONUAPLUS, CUU #### [facility] [address] Globulin Calc (S) [Mass/Vol] Ordered By: Jose Moses on 01-12-2023 Globulin (S) [Mass/Vol] 3.9 g/dL [facility] Glucose [Mass/volume] in Ser um or PlasmaOrdered By: Jose Moses on 01-12-2023 Glucose [Mass/Vol] 107 mg/dL 70-100 [facility] Comment on above: ADA recommended refe rence rangeRandom Glucose Reference Range is dependent on time and content of last meal. Glucose of more than 200 mg/dL in a nonstressed, ambulatory subject supports the diagnosis of Diabetes Mellitus. HCG ( test) IAantonina d Ql (U)Ordered By: Jose Moses on 01-12-2023 HCG ( test) Ql (U) Negative [facility] HCG,Urineon 01-12-2023 Beta HCG ( test) Ql (U) Negative Normal [facility] Comment on above: Order Comment: Name Collection Type:: Clean-Voided Midstream Result Comment: PERF ORMED BY: [place] [address] PATHOLOGIST SILVICULTURE PROFESSOR DANYELL LIVINGSTON M.D. Performed By: #### U HCG, URDS, ADDONUAPLUS, CUU #### [facility] [address] Hematocrit Auto (Bld) [Volum e fraction]Ordered By: Jose Moses on 01-12-2023 Hematocrit (Bld) [Volume fraction] 47.7 % 34.0-46.4 [facility] Hemoglobin [Mass/volume] in BloodOrdered By: Jose Moses on 01-12-2023 Hemoglobin (Bld) [Mass/Vol] 16.1 g/dL 11.8-15.4 [facility] Ketones Auto test strip (U) [Mass/Vol]Ordered By: Jose Moses on 01-12-2023 Ketones (U) [Mass/Vol] Trace Negative [facility] - UrinalysisOrder ed By: Jose Moses on 01-12-2023 Hyaline casts LM Ql (Urine sed) 9-19 [LPF] 0-8 [facility] Leukocytes [#/volume] correc neema for nucleated erythrocytes in Blood by Automated counOrdered By: Jose Moses on 01-12-2023 WBC corrected for nucl RBC Auto (Bld) [#/Vol] 6.5 10*3/uL 3.8-11.6 [facility] Lymphocytes Auto (Bld) [#/Vo l]Ordered By: Jose Moses on 01-12-2023 Lymphocytes (Bld) [#/Vol] 1.7 10*3/uL 1.00-4.8 [facility] Lymphocytes/100 WBC Auto (Bl d)Ordered By: Jose Moses on 01-12-2023 Lymphocytes/100 WBC (Bld) 25.4 % . [facility] MCH Auto (RBC) [Entitic mass ]Ordered By: Jose Moses on 01-12-2023 MCH (RBC) [Entitic mass] 30.9 pg 24.7-34.3 [facility] MCHC Auto (RBC) [Mass/Vol]Or dered By: Jose Moses on 01-12-2023 MCHC (RBC) [Mass/Vol] 33.7 g/dL 32.0-35.0 [facility] MCV Auto (RBC) [Entitic vol] Ordered By: Jose Moses on 01-12-2023 MCV (RBC) [Entitic vol] 91.9 fL 80-100 [facility] Monocyte distribution width [Entitic volume] in Blood by AutomatedOrdered By: Jose Moses on 01-12-2023 Monocyte distribution width Auto (Bld) [Entitic vol] 17.67 % 0.00-20.00 [facility] Monocytes Auto (Bld) [#/Vol] Ordered By: Jose Moses on 01-12-2023 Monocytes (Bld) [#/Vol] 0.3 10*3/uL 0.0-0.8 [facility] Monocytes/100 WBC Auto (Bld) Ordered By: Jose Moses on 01-12-2023 Monocytes/100 WBC (Bld) 5.2 % . [facility] Neutrophils Auto (Bld) [#/Vo l]Ordered By: Jose Moses on 01-12-2023 Neutrophils (Bld) [#/Vol] 4.5 10*3/uL 1.8-7.7 [facility] Neutrophils/100 WBC Auto (Bl d)Ordered By: Jose Moses on 01-12-2023 Neutrophils/100 WBC (Bld) 68.9 % . [facility] Nitrite Test strip Ql (U)Ord ered By: Jose Moses on 01-12-2023 Nitrite Ql (U) Positive Negative [facility] No Panel InformationOrdered By: Jose Moses on 01-12-2023 Estimated GFR (CKD-EPI) > 60.0 mL/Min [facility] Creatinine Clearance (Chem 105.60 [facility] Nucleated erythrocytes [Pres ence] in Blood by Automated countOrdered By: Jose Moses on 01-12-2023 Nucleated RBC Auto Ql (Bld) 0.1 /100{WBC} 0-0.5 [facility] Opiates [Presence] in Urine by Screen methodOrdered By: Jose Moses on 01-12-2023 Opiates Screen Ql (U) Negative Negative [facility] URon 01-12-2023 , QUAL Negative Normal NEGATIVE [facility] Comment on above: Performed By: #### C BC #### [facility] [address] [place] [address] Dr. Efren Parra PROF 14(COMP METB)on 023 Albumin [Mass/Vol] 4.3 g/dL Normal 3.4-5.0 [facility] Comment on above: Performed By: #### P REG #### [facility] [address] [place] [address] Dr. Efren Parra Albumin/Globulin [Mass ratio] 1.0 {ratio} Normal [facility] Comment on above: Performed By: #### P REG #### [facility] [address] [place] [address] Dr. Efren Parra ALP [Catalytic activity/Vol] 58 U/L Normal 46-116 [facility] Comment on above: Performed By: #### P REG #### [facility] [address] [place] [address] Dr. Efren Parra ALT [Catalytic activity/Vol] 17 U/L Normal 14-59 [facility] Comment on above: Performed By: #### P REG #### [facility] [address] [place] [address] Dr. Efren Parra Anion gap [Moles/Vol] 17.6 mmol/L Normal [facility] Comment on above: Performed By: #### P REG #### [facility] [address] [place] [address] Dr. Efren Parra AST [Catalytic activity/Vol] 11 U/L Critically low 15-37 [facility] Comment on above: Performed By: #### P REG #### [facility] [address] [place] [address] Dr. Efren Parra Bilirubin [Mass/Vol] 0.4 mg/dL Normal 0.2-1.0 [facility] Comment on above: Performed By: #### P REG #### [facility] [address] [place] [address] Dr. Efren Parra Calcium [Mass/Vol] 9.8 mg/dL Normal 8.5-10.1 [facility] Comment on above: Performed By: #### P REG #### [facility] [address] [address] [address] Efren Parra Chloride [Moles/Vol] 102 mmol/L Normal 98-107 [facility] Comment on above: Performed By: #### P REG #### [facility] [address] [place] [address] Dr. Efren Parra CO2 [Moles/Vol] 25.1 mmol/L Normal 21.0-32.0 [facility] Comment on above: Performed By: #### P REG #### [facility] [address] [place] [address] Dr. Efren Parra Creatinine [Mass/Vol] 0.75 mg/dL Normal 0.55-1.02 [facility] Comment on above: Performed By: #### P REG #### [facility] [address] [place] [address] Dr. Efren Parra EGFR-AF SAMOAN >60 Normal >=60 [facility] Comment on above: Performed By: #### P REG #### [facility] [address] [place] [address] Dr. Efren Parra EGFR-NON AF SAMOAN >60 Normal >=60 [facility] Comment on above: Performed By: #### P REG #### [facility] [address] [address] [address] Efren Parra Globulin (S) [Mass/Vol] 4.2 g/dL Normal [facility] Comment on above: Performed By: #### P REG #### [facility] [address] [address] [address] Efren Parra Glucose [Mass/Vol] 105 mg/dL Normal 74-106 [facility] Comment on above: Performed By: #### P REG #### [facility] [address] [address] [address] Efren Parra Potassium [Moles/Vol] 3.7 mmol/L Normal 3.5-5.1 [facility] Comment on above: Performed By: #### P REG #### [facility] [address] [place] [address] Dr. Efren Parra Protein [Mass/Vol] 8.5 g/dL Critically high 6.4-8.2 T [facility] Comment on above: Performed By: #### P REG #### [facility] [address] [place] [address] [address] Efren Parra Sodium [Moles/Vol] 141 mmol/L Normal 136-145 [facility] Comment on above: Performed By: #### P REG #### [facility] [address] [place] [address] [address] Efren Parra Urea nitrogen [Mass/Vol] 17.0 mg/dL Normal 7.0-18.0 [facility] Comment on above: Performed By: #### P REG #### [facility] [address] [address] [address] Efren Parra Urea nitrogen/Creatinine [Mass ratio] 22.7 mg/mg Normal [facility] Comment on above: Performed By: #### P REG #### [facility] [address] [address] [address] Efren Parra Phencyclidine Screen Ql (U)O rdered By: Jose Moses on 01-12-2023 Phencyclidine Ql (U) Negative Negative [facility] Platelet mean volume Auto (B ld) [Entitic vol]Ordered By: Jose Moses on 01-12-2023 Platelet mean volume (Bld) [Entitic vol] 8.7 fL 6.3-10.7 [facility] Platelets Auto (Bld) [#/Vol] Ordered By: Jose Moses on 01-12-2023 Platelets (Bld) [#/Vol] 275 10*3/uL 150-450 [facility] Potassium [Moles/volume] in Serum or PlasmaOrdered By: Jose Moses on 01-12-2023 Potassium [Moles/Vol] 3.0 mmol/L 3.5-5.1 [facility] Protein Auto test strip (U) [Mass/Vol]Ordered By: Jose Moses on 01-12-2023 Protein (U) [Mass/Vol] Negative Negative [facility] Protein [Mass/volume] in Ser um or PlasmaOrdered By: Jose Moses on 04-03-2023 Protein [Mass/Vol] 9.2 g/dL 6.4-8.9 [facility] RBC Auto (Bld) [#/Vol]Ordere d By: Jose Moses on 01-12-2023 RBC (Bld) [#/Vol] 5.19 10*6/uL 3.60-5.00 [facility] Serum or plasma albumin/glob ulin mass ratioOrdered By: Jose Moses on 01-12-2023 Albumin/Globulin [Mass ratio] 1.4 {ratio} [facility] Serum or plasma anion gap de terminationOrdered By: Jose Moses on 01-12-2023 Anion gap [Moles/Vol] 13.1 mmol/L 6.0-15.0 [facility] Sodium [Moles/volume] in Ser um or PlasmaOrdered By: Jose Moses on 01-12-2023 Sodium [Moles/Vol] 139 mmol/L 136-145 [facility] Specific gravity Auto test s trip (U) [Rel density]Ordered By: Jose Moses on 01-12-2023 Specific gravity (U) [Rel density] 1.020 1.001-1.030 [facility] Squamous epithelial cells de tection in urine sediment by light microscopyOrdered By: Jose Moses on 01-12-2023 Epithelial cells.squamous LM Ql (Urine sed) 5-9 [HPF] 0-2 [facility] URINE MICROSCOPIC ONLYon BACTERIA LARGE Abnormal NONE SEEN [facility] Comment on above: Performed By: #### C BC #### [facility] [address] [place] [address] Dr. Efren Parra Bacteria identified Cx Nom (U) INDICATED Normal [facility] Comment on above: Performed By: #### C BC #### [facility] [address] [place] [address] [address] Efren Parra CAST NONE SEEN Normal NONE SEEN [facility] Comment on above: Performed By: #### C BC #### [facility] [address] [place] [address] Dr. Efren Parra Crystals LM Nom (Urine sed) NONE SEEN Normal NONE SEEN [facility] Comment on above: Performed By: #### C BC #### [facility] [address] [place] [address] Dr. Efren Parra Epithelial cells LM Ql (Urine sed) FEW Abnormal NONE SEEN /RARE [facility] Comment on above: Performed By: #### C BC #### [facility] [address] [address] [address] Efren Parra MUCOUS NONE SEEN Normal NONE SEEN [facility] Comment on above: Performed By: #### C BC #### [facility] [address] [place] [address] Dr. Efren Parra RBC 2-5 Abnormal 0-2 [facility] Comment on above: Performed By: #### C BC #### [facility] [address] [place] [address] Dr. Efren Parra WBC 0-2 Abnormal NONE SEEN [facility] Comment on above: Performed By: #### C BC #### [facility] [address] [place] [address] Dr. Efren Parra Urea nitrogen [Mass/volume] in Serum or PlasmaOrdered By: Jose Moses on 01-12-2023 Urea nitrogen [Mass/Vol] 14 mg/dL 7-25 [facility] Urine Cultureon 01-12-2023 Bacteria identified Cx Nom (U) ORGANISM: Escherichia coli (O:ESCCOL) Sawyer Count >100,000 Aerobic ATUL Charge (NMIC56) ---- [...] RESISTANT TO ALL B-LACTAM DRUGS. PERFORMED BY: [place] [address] PATHOLOGIST SILVICULTURE PROFESSOR DANYELL LIVINGSTON M.D. [facility] Comment on above: Performed By: #### U HCG, URDS, ADDONUAPLUS, CUU #### [facility] [address] [place] [address] Urine bacteria detection by automated methodOrdered By: Jose Moses on 01-12-2023 Bacteria Auto Ql (U) 4+ None Seen [facility] Urine clarity by refractomet ry automatedOrdered By: Jose Moses on 01-12-2023 Clarity Refractometry automated (U) Cloudy Clear [facility] Urine culture routineOrdered By: Jose Moses on 01-12-2023 Bacteria identified Cx Nom (U) Escherichia coli [facility] Urine glucose measurement by automated test strip (mass/volume)Ordered By: Jose Moses on 01-12-2023 Glucose Auto test strip (U) [Mass/Vol] Normal mg/dL Normal [facility] Urine hemoglobin detection b y automated test stripOrdered By: Jose Moses on 01-12-2023 Hemoglobin Auto test strip Ql (U) Trace Negative [facility] Urine leukocyte esterase det ection by automated test stripOrdered By: Jose Moses on 01-12-2023 Leukocyte esterase Auto test strip Ql (U) 2+ Negative [facility] Urobilinogen Auto test strip (U) [Mass/Vol]Ordered By: Jose Moses on 01-12-2023 Urobilinogen (U) [Mass/Vol] Normal mg/dL Normal [facility] WBC Auto (Bld) [#/Vol]Ordere d By: Jose Moses on 01-12-2023 WBC (Bld) [#/Vol] 6.5 10*3/uL 3.8-11.6 [facility] XR CHEST 1 Von 01-12-2023 XR [...] AMAYA BRANCH Date: 2023-01-12 00:46 Normal [facility] pH Auto test strip (U)Ordere d By: Jose Moses on 01-12-2023 pH (U) 6.0 [pH] 5.0-9.0 [facility] Coding Summary.on 2023 Coding Summary. CD:[id number] W w+PGhlYWQ+LF1VHAQwV21 joQRzxK0pG5NOZDgXDblq SHHTXQhMFiSpahJdNK4uu XNjZXJu IC8+AA2dCEXtSytesTZej 9S0kLK1B93xip6zZAucxJ H5WEAkRvLzziyhb0wpcLh 6IDcuNmluOyBt PSQwqW05SGJ6nJ38Bo75b OZmiIMul9wldNw2JyHvMB FeQCR7cGhsEVtev4WpWRR zU22leUYpb8Z4 ACOgnTccyVZnRpLnnBF0i M2mQDezszeml8qoqgupPn w5pv01iWEkc5V2uRK8K9G qseI0VYSlpVSw KckhqWCZuX1wvesjb3xaa rruVnXtJFZxMIo6MHp3JB WwuSfgBfBlPO92TDR6DCI lhqCfZ9DoGUBm eTyqOfG9n3L6Cp7QM1ZDE srtM8BKOQHUXFggsJK+PC 23xa59B2QlHyrlKst9DBA xEAL6cZX2hE7a IGOgBApdj8T6tUS3N3Fny vFxsi8ew1zjZFAuNDfqL3 4bvVLoi5U7OARnmBK2NVE eyGecXhVxxN17 Oyc+WAPmrTajn2OtKnxab 4ihq8vujSw3BadiCMQham SfxWtmBIH3y5LcTj2aRZD ujRV6bYE0vR4e OzIcBgX7HIodY688FgTcc HRtYtlcN94tU3DqhKK+PH WdFsx3RDLwmTnoBY6gI2T hZGRpbmctbGVm pParID6vBNEgnoitDAYjn L3wLYTuP6n9SuReRsF9DX kxE5KyPOYasjcfEq19vY8 cMcYwOlA9AWli J1UngpH3ZTFrzKXoJZbzS VW5O54ec8T2FCJhQNMjNS O1hMS2bA4xoFliitsjkPA mdDsgdmVydGlj YJsgSLzgA088MOIgcJgmN kNvZGluZyBEYXRlOiAgMD MvMzEvMjAyMzwvdGQ+PHR rXNS7eXulHJZo nARlGQldQk8ewSnyiAhmU X7wLGDantgmDECidX5xXB SonLNwiYqwGR7cYCRjanw fr839BzMiCSN0 OTZuqFEiT2DndT4tYxBhK DIzBZDtI5OcqDMaAZszL3 60OSklYqW6TWOzdiAbV5C sLWFsaWduOiB0 u8O9Nm0Ws7SzodzdC8Mse ARhFwLoVyibGKm2Y7HfZo wvdHI+TP27PHCyEJ21ETy 1NAH8jHyuBNhz IJHiP4WqmF4cLjGqOOIxG GRkOyc+PHRhYmxlIHdpZH RoPScxMDAlJyBzdHlsZT0 rGz5uBWNcJTTf cLrjzVBaSsNyd8moMTEyU RxyXY5ipXniA2XsxLY3WL Knc0c0Wv68Y96fH6HpiAJ +KAFtmYP5zJS9 eA4vEqWqQzU1OFiiW721X lVhnNQaSapcs0uwt4dsrD q0ZvY5PAOkkdBcaVwsEXF 9b7VgWe25L52e IHdpZHRoPSIxNSUiIHZhb Uuyyx9ugW2yKa4+PGNvbC F1dHP3fD3jDfGuLoI2IDa sM175LoHseVSt Ovshl2ztb0lfvGo1HfDiW TNfrrKioByjXRV2e4BxVo 05M3FogYzop4WiNwn8sg1 2sJOcp5O9bSE6 L5VnWDIvfzkbcUXmyBziY W9oBIWwknekANLcxI5kGY EbR9v1WyNiMzU0RUgrU6E soqS0ODHbjCVo MCSsfULEtB4bcwkuu1amb rkmUtNtRZDsAGh0KYo8NV JkvHqcXqRkYJD6VqH1LCR 8iHBeyS4egEmt cgufjX9pEmt+ZUF1kZJle UOFKX7rYlmfxVB+PHRkIH K5zRhhSFxbTTPjfO8eOHK jE0a9FgUkZoY6 EVvbT6KsgmF0JCBdzFPqW TQcoSZTwS2tnouuj2xgpb huLqBvPZDmLYz7IFi3HIN saWduOiBsZWZ0 OtG3ODK1wFIyqL0fkVftl capwO0gXkl+QmlydGggRG S7OYe9P0JoSol9KHLllXn fUX1doJXfJVrg Hs8vxTynrLkgWA3yKSUlo orgi815WaSkm0pxBDYehB SkWYhdMRP4B56lm4Q7FJN wQHNlQPE7rIA3 uM0zpNndqlknaKUxlWkos kZpfLbwUXupMZolI167WN XheAmxScUtLRd6N7VbNnz 2BFKokUbnLW0s sJFuMVeuCr3zrOdjdXpoX G1nXWOothdxy250WlVta5 zoUYQesYExPJbuWJD5M99 ez5G7HZPqYVGq LHS1wJD9zK1tgRjkbjucm GVmdDsgdmVydGljYWwtYW yeE557ZEKjoDniTzXhdJt 6O0AfAfl4HAVh lWjgHR0mxHIqBIcxHq1js LlgjFdvKI3qJOBldjpmo2 08SkEew5fgXQMttOFcFRt mOAA1X13lv4W9 PANmMPJhEWW4wTJ2lL1gi GlnbjogbGVmdDsgdmVydG vmWQttBWvpO614WFNorJl nPlBhdGllbnQg NAgrBKq0Z9JmXigzpGA+P V37PHMgAK41lRVprJEbq2 nopAa0GsQlORCjENY7xBt oHTanm5DeMLJb F28uvSDfe5V3MOQdvZbci UTbJkSyiJW0sC1zTAoyww bor6dnznteJybra0nade2 6rI25M61gCOtn ZHRoPSIzMCUiIHZhbGlnb r2txP7tZr5+VMGqhBD0bP S6xJ3bXKXiMrU4DYptE63 9InRvcCIvPjxj q0kpy7myiCg2FuM0NKCif mItjHtwTJO7m0VkKl08N6 9sIHdpZHRoPSIyMCUiIHZ bvCasjk0ezS6e Ii8+NPXtiYC3vRL2aC2cB cFnXuG7BDojU429QoChpN VhDiytM06eW9IaaAR+PHR fAzz7HEBqoFel TV7vlSKnUSnhAs1pZMN2J sAqJrXwWObpT0RsONPire tmtnozqDD4SGBdSFVizM3 9Dh1zvGqkEZJl oAIFzE5orehao2jciqraG dGzCKQgSRx4QCo5CARflY fkLrInLSO2DrA1ZCB1kZZ pkQ3drEcjlbrb nA9aF1XmMBGchatfRv44f D8dHlSaGrM7DTxbJuc+Rk 6QUFZYWJJKVCOYWBTQLO0 7LO20rOQoc3O9 uVA1L4EhEVWuzijgegoec SS6HLNjJLIthJ36hQPeZS teVa3vy8J9u468JPHaKUJ lcX07Ih2isUlm XRYonKSQaU2ojnbxv7ayp oqmIuBnEPXlTUb8OCz1HQ LvyKhtDdJhSDK7CoQ0JJS 4cYAqbH3ioKve vzgraR3eJjm+MDMvMzEvM Qz7CLftuMZ+RKSoPGQ8vJ pbLApiACBqzG0aRWYaN0n 5SuPkLjA5MUhq T1UkSXVfxdirXw64mS5iJ wJdZiX2PFhuF1TqbtA0PN VrsQDwIKtdSCV8C49xf2V 5EZKkBVMeZHF0 mTO8yJ9krRwmbuxmtJEhc DsgdmVydGljYWwtYWxpZ2 50MQAutEipSqG9TPriDXR wPD33EG15iWMg e0M7aQG0Z6MhFABrdexsb alprWX5PMNsSWQjxH05pB BfMFveJh9en0I4k475HQH tPBSbnD90Ug4j xHtgHZYvfFPRtM5yhbmrz 4qwhwiiBzElDWTwSYe8RD o6ZQNmrLbqNzBmUBC0IxO 3BLE2nZGfjX1e zAuxzpzkbB7yIev+RmVtY YttRG47AK35sLJxf6N7uH W9X4GpRAJsghoedculuVJ 9QLOsNGJsfL32 dJLzXTdgLu3re7S9t871Z PQiDAEkzB60Nj2ebYahVL PogOLJyT4nldvej4pvurz gIzAwMDAwMDt0 YIi0EWAveCegNtWhMZY5G oO4KUC7gLWsxP1zsKdqzq hdlB7zMqp+AM1mnntyaaU 0TM81OC24I7Mb PjwvdGFibGU+PHRhYmxlI HdpZHRoPScxMDAlJyBzdH jdKL9rYv3iUGEdSVCvyJu bnCRgWcFah0wr VUZhNXtjAK9raNcoJ2Bco VO9HKMqi0m1Tf97Z09hH4 JvdXA+PRBtjWC9dHB4gL8 aMeWqIyV4QAhk F949WrIpoTUcEdvst5xwe 0fsgCc5OgUeNYOirgMkwF btMGZ5x9VaJg55R23xELx pZHRoPSIyMCUi SUYvfLqqbp6xsR0sAk9+P TIsyON9yLS8cR1gQuHzWp N2MMsaN352JsGxbBFwFwv uK22iJ3IlrWX+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 11.8-15.4 [facility] Laboratory - Drug toxicology Ordered By: Nito Walton on 11-20-2022 Opiates Ql (U) Negative Negative [facility] Leukocytes [#/volume] correc neema for nucleated erythrocytes in Blood by Automated counOrdered By: Nito Walton on 11-20-2022 WBC corrected for nucl RBC Auto (Bld) [#/Vol] 12.4 10*3/uL 3.8-11.6 [facility] Lymphocytes Auto (Bld) [#/Vo l]Ordered By: Nito Walton on 11-20-2022 Lymphocytes (Bld) [#/Vol] 2.5 10*3/uL 1.00-4.8 [facility] Lymphocytes/100 WBC Auto (Bl d)Ordered By: Nito Walton on 11-20-2022 Lymphocytes/100 WBC (Bld) 20.0 % . [facility] MCH Auto (RBC) [Entitic mass ]Ordered By: Nito Walton on 11-20-2022 MCH (RBC) [Entitic mass] 30.9 pg 24.7-34.3 [facility] MCHC Auto (RBC) [Mass/Vol]Or dered By: Nito Walton on 11-20-2022 MCHC (RBC) [Mass/Vol] 33.6 g/dL 32.0-35.0 [facility] MCV Auto (RBC) [Entitic vol] Ordered By: Nito Walton on 11-20-2022 MCV (RBC) [Entitic vol] 92.1 fL 80-100 [facility] Monocyte distribution width [Entitic volume] in Blood by AutomatedOrdered By: Nito Walton on 11-20-2022 Monocyte distribution width Auto (Bld) [Entitic vol] 20.73 % 0.00-20.00 [facility] Comment on above: For adults in ED, MD W > 20.0 may be associated with a higher risk of sepsis during the first 12 hrs of hospital admission Monocytes Auto (Bld) [#/Vol] Ordered By: Nito Walton on 11-20-2022 Monocytes (Bld) [#/Vol] 0.7 10*3/uL 0.0-0.8 [facility] Monocytes/100 WBC Auto (Bld) Ordered By: Nito Walton on 11-20-2022 Monocytes/100 WBC (Bld) 5.8 % . [facility] Neutrophils Auto (Bld) [#/Vo l]Ordered By: Nito Walton on 11-20-2022 Neutrophils (Bld) [#/Vol] 9.1 10*3/uL 1.8-7.7 [facility] Neutrophils/100 WBC Auto (Bl d)Ordered By: Nito Walton on 11-20-2022 Neutrophils/100 WBC (Bld) 73.4 % . [facility] No Panel InformationOrdered By: Nito Walton on 11-20-2022 Estimated GFR () > 60 mL/Min [facility] Comment on above: GFR estimated refere nce range: According to KDOQI guidelines, <60 ml/min/1.73m2 is sufficient to diagnose a patient with chronic kidney disease. Pharmacy Creatinine Clearance (Chem 124.32 [facility] Nucleated erythrocytes [Pres ence] in Blood by Automated countOrdered By: Nito Walton on 11-20-2022 Nucleated RBC Auto Ql (Bld) 0.1 /100{WBC} 0-0.5 [facility] Phencyclidine Screen Ql (U)O rdered By: Nito Walton on 11-20-2022 Phencyclidine Ql (U) Negative Negative [facility] Platelet mean volume Auto (B ld) [Entitic vol]Ordered By: Nito Walton on 11-20-2022 Platelet mean volume (Bld) [Entitic vol] 9.9 fL 6.3-10.7 [facility] Platelets Auto (Bld) [#/Vol] Ordered By: Nito Walton on 11-20-2022 Platelets (Bld) [#/Vol] 202 10*3/uL 150-450 [facility] Protein [Mass/volume] in Ser um or PlasmaOrdered By: Nito Wlaton on 11-20-2022 Protein [Mass/Vol] 6.6 g/dL 6.1-7.9 [facility] RBC Auto (Bld) [#/Vol]Ordere d By: Nito Walton on 11-20-2022 RBC (Bld) [#/Vol] 4.55 10*6/uL 3.60-5.00 [facility] Serum or plasma alanine preston otransferase measurement without P-5'-P (enzymatic activiOrdered By: Nito Walton on 11-20-2022 ALT No additional P-5'-P [Catalytic activity/Vol] 30 U/L 10-60 [facility] Serum or plasma albumin/glob ulin mass ratioOrdered By: Nito Walton on 11-20-2022 Albumin/Globulin [Mass ratio] 1.4 {ratio} [facility] Serum or plasma alkaline harris sphatase measurement (enzymatic activity/volume)Ordered By: Nito Walton on 11-20-2022 ALP [Catalytic activity/Vol] 40 U/L 32-92 [facility] Serum or plasma anion gap de terminationOrdered By: Nito Walton on 11-20-2022 Anion gap [Moles/Vol] 15.9 mmol/L 6.0-15.0 [facility] Serum or plasma aspartate am inotransferase measurement (enzymatic activity/volume)Ordered By: Nito Walton on 11-20-2022 AST [Catalytic activity/Vol] 29 U/L 10-42 [facility] Serum or plasma calcium randall urement (mass/volume)Ordered By: Nito Walton on 11-20-2022 Calcium [Mass/Vol] 9.6 mg/dL 8.2-10.2 [facility] Serum or plasma chloride fabian surement (moles/volume)Ordered By: Nito Walton on 11-20-2022 Chloride [Moles/Vol] 97 mmol/L 95-[address] [facility] Serum or plasma ethanol randall urement (mass/volume)Ordered By: Nito Walton on 11-20-2022 Ethanol [Mass/Vol] mg/dL [facility] Ethanol [Mass/Vol] TNP [facility] Comment on above: Test not performed Serum or plasma glucose randall urement (mass/volume)Ordered By: Nito Walton on 11-20-2022 Glucose [Mass/Vol] 105 mg/dL 70-100 [facility] Comment on above: ADA recommended refe rence rangeRandom Glucose Reference Range is dependent on time and content of last meal. Glucose of more than 200 mg/dL in a nonstressed, ambulatory subject supports the diagnosis of Diabetes Mellitus. Serum or plasma potassium me asurement (moles/volume)Ordered By: Nito Walton on 11-20-2022 Potassium [Moles/Vol] 3.8 mmol/L 3.5-5.1 [facility] Serum or plasma sodium measu rement (moles/volume)Ordered By: Nito Walton on 11-20-2022 Sodium [Moles/Vol] 134 mmol/L 136-146 [facility] Serum or plasma total biliru bin measurement (mass/volume)Ordered By: Nito Walton on 11-20-2022 Bilirubin [Mass/Vol] 0.7 mg/dL 0.3-1.[address] [facility] Serum or plasma total carbon dioxide measurement (moles/volume)Ordered By: Nito Walton on 11-20-2022 CO2 [Moles/Vol] 24.9 mmol/L 22.0-30.0 [facility] Serum or plasma urea nitroge n measurement (mass/volume)Ordered By: Nito Walton on 11-20-2022 Urea nitrogen [Mass/Vol] 6 mg/dL 9-23 [facility] Urine cocaine detectionOrder ed By: Nito Walton on 11-20-2022 Cocaine Ql (U) Negative Negative [facility] WBC Auto (Bld) [#/Vol]Ordere d By: Nito Walton on 11-20-2022 WBC (Bld) [#/Vol] 12.4 10*3/uL 3.8-11.6 [facility] CHEMISTRYOrdered By: SYSTEM SYSTEM on 11-10-2022 [...] [facility] Remisol Ethanol [Mass/Vol] mg/dL Normal <=7mg/dL [facility] R emisol GFR/1.73 sq M.predicted among blacks MDRD (S/P/Bld) [Vol rate/Area] mL/min/1.73 m2 Normal >=59mL/min/1. 73 m2 [facility] Chem S GFR/1.73 sq M.predicted among non-blacks MDRD (S/P/Bld) [Vol rate/Area] mL/min/1.73 m2 Normal >=59mL/min/1. 73 m2 [facility] Chem S Globulin (S) [Mass/Vol] 3.0 g/dL [...] - 7.5 E9/L [facility] HemeAutoSS HEMATOLOGYOrdered By: Bradely Novak on 11-10-2022 Erythrocyte distribution width (RBC) [...] Interpretation Code Negative [facility] UA Auto SS [place].plasma/[place]. RBC (Bld) [Mass ratio] 4-20 /HPF Normal [...] [facility] UA Auto SS Urobilinogen Qn (U) [id number] {Adria'U}/dL Normal 0.0 - 1.0 EU/dL [facility] UA Auto SS WBC Auto Ql (U) Negative (11/10/22 1:49 AM) Normal Negative [facility] UA Auto SS WBC LM.HPF (Urine sed) [#/Area] 0-5 /HPF Normal 0-5/HPF [facility] UA Auto SS COVID-19 SOFIAOrdered By: Ezio Reyes on 08-08-2022 SARS-CoV+SARS-CoV-2 (COVID-19) Ag IA.rapid Ql (Resp) Negative Negative [facility] Comment on above: This is a duplicate Martina SARS Antigen (ANTE) result to be used for statistical tracking purpose only. No Panel InformationOrdered By: Rachael Reyes on 08-08-2022 SARS Antigen (LFIA) [facility] XR CHEST 1 Von 06-23-2022 XR [...] ALBINA BRODERICK Date: 2022-06-22 22:40 Normal [facility] CBC AUTO DIFFon 06-22-2022 BASO # 0.0 103/ul Normal 0.0-0.1 [facility] Comment on above: Performed By: #### C BC #### [facility] [address] [place] [address] Dr. Efren Parra Basophils/100 WBC (Bld) 0.2 % Normal 0.2-2.0 [facility] Comment on above: Performed By: #### C BC #### [facility] [address] [place] [address] Dr. Efren Parra EO # 0.0 103/ul Normal 0.0-0.7 [facility] Comment on above: Performed By: #### C BC #### [facility] [address] [place] [address] Dr. Efren Parra Eosinophils/100 WBC (Bld) 0.1 % Critically low 0.9-7.0 [facility] Comment on above: Performed By: #### C BC #### [facility] [address] [place] [address] Dr. Efren Parra Erythrocyte distribution width (RBC) [Ratio] 12.9 % Normal 11.0-15.0 [facility] Comment on above: Performed By: #### C BC #### [facility] [address] [place] [address] Dr. Efren Parra Hematocrit (Bld) [Volume fraction] 37.0 % Normal 36.0-48.0 [facility] Comment on above: Performed By: #### C BC #### [facility] [address] [place] [address] Dr. Efren Parra Hemoglobin (Bld) [Mass/Vol] 12.6 g/dL Normal 12.0-16.0 [facility] Comment on above: Performed By: #### C BC #### [facility] [address] [place] [address] Dr. Efren Parra IG # 0.06 10e3/ul Critically high 0.00-0.03 [facility] Comment on above: Performed By: #### C BC #### [facility] [address] [place] [address] Dr. Efren Parra IG % 0.5 % Normal 0.0-0.5 [facility] Comment on above: Performed By: #### C BC #### [facility] [address] [place] [address] Dr. Efren Parra LYMPH # 4.8 103/ul Critically high 1.2-3.8 [facility] Comment on above: Performed By: #### C BC #### [facility] [address] [place] [address] Dr. Efren Parra Lymphocytes/100 WBC (Bld) 36.3 % Normal 20.5-60.0 [facility] Comment on above: Performed By: #### C BC #### [facility] [address] [place] [address] Dr. Efren Parra MANUAL DIFF REQ NO Normal [facility] Comment on above: Performed By: #### C BC #### [facility] [address] [place] [address] Dr. Efren Parra MCH (RBC) [Entitic mass] 31.7 pg Normal 26.7-34.0 [facility] Comment on above: Performed By: #### C BC #### [facility] [address] [place] [address] Dr. Efren Parra MCHC (RBC) [Mass/Vol] 34.1 g/dL Normal 29.9-35.2 [facility] Comment on above: Performed By: #### C BC #### [facility] [address] [place] [address] Dr. Efren Parra MCV (RBC) [Entitic vol] 93.0 fL Normal 81.0-99.0 [facility] Comment on above: Performed By: #### C BC #### [facility] [address] [place] [address] Dr. Efren Parra MONO # 0.8 103/ul Normal 0.3-0.8 [facility] Comment on above: Performed By: #### C BC #### [facility] [address] [address] [address] Efren Parra Monocytes/100 WBC (Bld) 5.8 % Normal 1.7-12.0 [facility] Comment on above: Performed By: #### C BC #### [facility] [address] [address] [address] Efren Parra NEUT # 7.6 103/ul Critically high 1.4-6.5 [facility] Comment on above: Performed By: #### C BC #### [facility] [address] [place] [address] Dr. Efren Parra Neutrophils/100 WBC (Bld) 57.1 % Normal 43.0-75.0 [facility] Comment on above: Performed By: #### C BC #### [facility] [address] [place] [address] Dr. Efren Parra Platelet mean volume (Bld) [Entitic vol] 10.7 fL Normal 9.5-13.5 [facility] Comment on above: Performed By: #### C BC #### [facility] [address] [place] [address] Dr. Efren Parra PLT 270 103/ul Normal 150-450 [facility] Comment on above: Performed By: #### C BC #### [facility] [address] [address] [address] Efren Parra RBC 3.98 106/ul Critically low 4.20-5.40 [facility] Comment on above: Performed By: #### C BC #### [facility] [address] [place] [address] Dr. Efren Parra WBC 13.2 103/ul Critically high 4.0-11.0 [facility] Comment on above: Performed By: #### C BC #### [facility] [address] [place] [address] Dr. Efren Parra D-DIMERon 06-22-2022 D-DIMER 0.24 mg/L FEU Normal <=0.59 [facility] Comment on above: Performed By: #### C BC #### [facility] [address] [place] [address] Dr. Efren Parra D-DIMER COMMENTS SEE BELOW Normal [facility] Comment on above: Result Comment: [...] hospitalization. Performed By: #### C BC #### [facility] [address] [place] [address] Dr. Efren Parra PROF 14(COMP METB)on 022 Albumin [Mass/Vol] 3.4 g/dL Normal 3.4-5.0 [facility] Comment on above: Performed By: #### C BC #### [facility] [address] [place] [address] Dr. Efren Parra Albumin/Globulin [Mass ratio] 0.9 {ratio} Normal [facility] Comment on above: Performed By: #### C BC #### [facility] [address] [place] [address] Dr. Efren Parra ALP [Catalytic activity/Vol] 49 U/L Normal 46-116 [facility] Comment on above: Performed By: #### C BC #### [facility] [address] [place] [address] Dr. Efren Parra ALT [Catalytic activity/Vol] 14 U/L Normal 14-59 [facility] Comment on above: Performed By: #### C BC #### [facility] [address] [place] [address] Dr. Efren Parra Anion gap [Moles/Vol] 15.1 mmol/L Normal [facility] Comment on above: Performed By: #### C BC #### [facility] [address] [address] [address] Efren Parra AST [Catalytic activity/Vol] 14 U/L Critically low 15-37 [facility] Comment on above: Performed By: #### C BC #### [facility] [address] [address] [address] Efren Parra Bilirubin [Mass/Vol] 0.2 mg/dL Normal 0.2-1.0 [facility] Comment on above: Performed By: #### C BC #### [facility] [address] [address] [address] Efren Parra Calcium [Mass/Vol] 8.9 mg/dL Normal 8.5-10.1 [facility] Comment on above: Performed By: #### C BC #### [facility] [address] [place] [address] Dr. Efren Parra Chloride [Moles/Vol] 102 mmol/L Normal 98-107 [facility] Comment on above: Performed By: #### C BC #### [facility] [address] [address] [address] Efren Parra CO2 [Moles/Vol] 25.9 mmol/L Normal 21.0-32.0 [facility] Comment on above: Performed By: #### C BC #### [facility] [address] [address] [address] Efren Parra Creatinine [Mass/Vol] 0.72 mg/dL Normal 0.55-1.02 [facility] Comment on above: Performed By: #### C BC #### [facility] [address] [address] [address] Efren Parra EGFR-AF SAMOAN >60 Normal >=60 [facility] Comment on above: Performed By: #### C BC #### [facility] [address] [place] [address] Dr. Efren Parra EGFR-NON AF SAMOAN >60 Normal >=60 [facility] Comment on above: Performed By: #### C BC #### [facility] [address] [address] [address] Efren Parra Globulin (S) [Mass/Vol] 3.8 g/dL Normal [facility] Comment on above: Performed By: #### C BC #### [facility] [address] [place] [address] Dr. Efren Parra Glucose [Mass/Vol] 92 mg/dL Normal 74-106 [facility] Comment on above: Performed By: #### C BC #### [facility] [address] [place] [address] Dr. Efren Parra Potassium [Moles/Vol] 4.0 mmol/L Normal 3.5-5.1 [facility] Comment on above: Performed By: #### C BC #### [facility] [address] [place] [address] Dr. Efren Parra Protein [Mass/Vol] 7.2 g/dL Normal 6.4-8.2 [facility] Comment on above: Performed By: #### C BC #### [facility] [address] [place] [address] Dr. Efren Parra Sodium [Moles/Vol] 139 mmol/L Normal 136-145 [facility] Comment on above: Performed By: #### C BC #### [facility] [address] [place] [address] Dr. Efren Parra Urea nitrogen [Mass/Vol] 17.0 mg/dL Normal 7.0-18.0 [facility] Comment on above: Performed By: #### C BC #### [facility] [address] [place] [address] Dr. Efren Parra Urea nitrogen/Creatinine [Mass ratio] 23.6 mg/mg Normal [facility] Comment on above: Performed By: #### C BC #### [facility] [address] [place] [address] Dr. Efren Parra TROPONIN, HIGH SENSITIVITYon 06-22-2022 HSTROP <4.0 Normal 4.0-51.3 [facility] Comment on above: Result Comment: CUT- OFF POINTS HAVE BEEN ESTABLISHED BASED ON THE FOURTH UNIVERSAL DEFINITIONS OF MYOCARDIAL INFARCTION. THE UPPER REFERENCE LIMIT (URL) OF TROPONIN, DEFINED THE 99TH PERCENTILE OF cTnI DISTRIBUTION IN A REFERENCE POPULATION, HAS BEEN CONFIRMED THE DECISION THRESHOLD FOR [place] DIAGNOSIS. Performed By: #### C BC #### [facility] [address] [place] [id number] Efren Parra Covid-19 PCR (CVDTB)on SARS-CoV-2 (COVID-19) RNA LUKASZ+probe Ql (Unsp spec) Not detected Normal NOT DETECTED [facility] Comment on above: Result Comment: When diagnostic [...] for this test is supported by the Fitting Room Operator of Health and Human Service's declaration that [...] used). Performed By: #### C VDTB #### [facility] [address] [place] [id number] [address] Efren Parra XR CHEST 2 Von [...] ALBINA BRODERICK Date: 2022-06-16 21:42 Normal [facility] CHEMISTRYOrdered By: SYSTEM SYSTEM on 04-24-2022 Amphetamines Screen method >1000 ng/mL Ql (U) Positive 2 *ABN* (04/24/22 5:12 PM) Invalid Interpretation Code Negative [facility] Comment on above: Result Comment: Crit ical Result verified by repeat analysis\No confirmation requested by Physican\Unconfirmed by alternate method\Critical Result UD_AMPH:POS Called to [facility] by СВЕТЛАНА VASQUEZ And Read Back For Confirmation at: 04/24/2022 17:56:35 Barbiturates Screen Ql (U) Positive 3 *ABN* (04/24/22 5:12 PM) Invalid Interpretation Code Negative [facility] Comment on above: Result Comment: Crit ical Result verified by repeat analysis\No confirmation requested by Physican\Unconfirmed by alternate method\Critical Result UD_BARB:POS Called to [facility] ER by СВЕТЛАНА VASQUEZ And Read Back For Confirmation at: 04/24/2022 17:56:35 Benzodiazepines Ql (U) Positive 1 *ABN* (04/24/22 5:12 PM) Invalid Interpretation Code Negative [facility] Comment on above: Result Comment: Crit ical Result verified by repeat analysis\No confirmation requested by Physican\Unconfirmed by alternate method\Critical Result UD_BENZ:POS Called to [facility] ER by СВЕТЛАНА CHRISTINA And [...] >100,000 cfu/ml Non Fermentering Gram Negative [facility] MICRO OTHER TESTSOrdered By: Carrie Molina on [...] Interpretation Code Negative [facility] UA Auto SS [place].plasma/[place]. RBC (Bld) [Mass ratio] 0-3 /HPF Normal [...] Desc Clean Catch (04/24/22 5:12 PM) Normal [facility] UA Auto SS Urobilinogen Qn (U) [id number] {Adria'U}/dL Normal 0.0 - 1.0 EU/dL [facility] Auto SS WBC Auto Ql (U) 3+ *ABN* (04/24/22 5:12 PM) Invalid Interpretation Code Negative [facility] UA Auto SS WBC LM.HPF (Urine sed) [#/Area] /[HPF] Invalid Interpretation Code 0-5/HPF [facility] UA Auto SS CULTURE URINEon 04-13-2022 CULTURE [...] Trimethoprim/Sulfamet hoxazole >=320 R F Normal [facility] Comment on above: Performed By: #### C #### [facility] [address] [place] [address] Dr. Efren Parra [facility] SARS-CoV-2 (COVID-19) RNA LUKASZ+probe Ql (Unsp spec) Not detected Normal NOT DETECTED [facility] Comment on above: Result Comment: When diagnostic [...] for this test is supported by the Fitting Room Operator of Health and Human Service's declaration that [...] used). Performed By: #### C BC #### [facility] [address] [place] [address] Dr. Efren Parra ACETAMINOPHENon 04-10-2022 Acetaminophen [Mass/Vol] ug/mL Critically low 10.0-30.0 [facility] Comment on above: Performed By: #### A CET, ETH, SALYC, CMP #### [facility] [address] [place] [address] Dr. Efren Parra CBC AUTO DIFFon 04-10-2022 BASO # 0.0 103/ul Normal 0.0-0.1 [facility] Comment on above: Performed By: #### C BC #### [facility] [address] [place] [address] Dr. Efrne Parra Basophils/100 WBC (Bld) 0.5 % Normal 0.2-2.0 [facility] Comment on above: Performed By: #### C BC #### [facility] [address] [place] [address] Dr. Efren Parra EO # 0.1 103/ul Normal 0.0-0.7 [facility] Comment on above: Performed By: #### C BC #### [facility] [address] [place] [address] Dr. Efren Parra Eosinophils/100 WBC (Bld) 0.9 % Normal 0.9-7.0 [facility] Comment on above: Performed By: #### C BC #### [facility] [address] [place] [address] Dr. Efren Parra Erythrocyte distribution width (RBC) [Ratio] 11.9 % Normal 11.0-15.0 [facility] Comment on above: Performed By: #### C BC #### [facility] [address] [place] [address] Dr. Efren Parra Hematocrit (Bld) [Volume fraction] 42.3 % Normal 36.0-48.0 [facility] Comment on above: Performed By: #### C BC #### [facility] [address] [place] [address] Dr. Efren Parra Hemoglobin (Bld) [Mass/Vol] 14.6 g/dL Normal 12.0-16.0 [facility] Comment on above: Performed By: #### C BC #### [facility] [address] [place] [address] Dr. Efren Parra IG # 0.03 10e3/ul Normal 0.00-0.03 [facility] Comment on above: Performed By: #### C BC #### [facility] [address] [place] [address] Dr. Efren Parra IG % 0.5 % Normal 0.0-0.5 [facility] Comment on above: Performed By: #### C BC #### [facility] [address] [place] [address] Dr. Efren Parra LYMPH # 1.5 103/ul Normal 1.2-3.8 [facility] Comment on above: Performed By: #### C BC #### [facility] [address] [place] [address] Dr. Efren Parra Lymphocytes/100 WBC (Bld) 22.9 % Normal 20.5-60.0 [facility] Comment on above: Performed By: #### C BC #### [facility] [address] [place] [address] Dr. Efren Parra MANUAL DIFF REQ NO Normal [facility] Comment on above: Performed By: #### C BC #### [facility] [address] [place] [address] Dr. Efren Parra MCH (RBC) [Entitic mass] 31.9 pg Normal 26.7-34.0 [facility] Comment on above: Performed By: #### C BC #### [facility] [address] [place] [address] Dr. Efren Parra MCHC (RBC) [Mass/Vol] 34.5 g/dL Normal 29.9-35.2 [facility] Comment on above: Performed By: #### C BC #### [facility] [address] [place] [address] Dr. Efren Parra MCV (RBC) [Entitic vol] 92.4 fL Normal 81.0-99.0 [facility] Comment on above: Performed By: #### C BC #### [facility] [address] [place] [address] Dr. Efren Parra MONO # 0.3 103/ul Normal 0.3-0.8 [facility] Comment on above: Performed By: #### C BC #### [facility] [address] [place] [address] Dr. Efren Parra Monocytes/100 WBC (Bld) 4.7 % Normal 1.7-12.0 [facility] Comment on above: Performed By: #### C BC #### [facility] [address] [place] [address] Dr. Efren Parra NEUT # 4.7 103/ul Normal 1.4-6.5 [facility] Comment on above: Performed By: #### C BC #### [facility] [address] [place] [address] Dr. Efren Parra Neutrophils/100 WBC (Bld) 70.5 % Normal 43.0-75.0 [facility] Comment on above: Performed By: #### C BC #### [facility] [address] [place] [address] Dr. Efren Parra Platelet mean volume (Bld) [Entitic vol] 11.0 fL Normal 9.5-13.5 [facility] Comment on above: Performed By: #### C BC #### [facility] [address] [place] [address] Dr. Efren Parra PLT 226 103/ul Normal 150-450 [facility] Comment on above: Performed By: #### C BC #### [facility] [address] [place] [address] Dr. Efren Parra RBC 4.58 106/ul Normal 4.20-5.40 [facility] Comment on above: Performed By: #### C BC #### [facility] [address] [place] [address] Dr. Efren Parra WBC 6.6 103/ul Normal 4.0-11.0 [facility] Comment on above: Performed By: #### C BC #### [facility] [address] [place] [address] Dr. Efren Parra DEPAKENE/VALPROICon 04-10-20 DEPAKENE 35.2 ug/ml Critically low 50.0-100.0 [facility] Comment on above: Performed By: #### C BC #### [facility] [address] [place] [address] Dr. Efren Parra DRUG SCREEN RAPID (URINE)on 04-10-2022 AMP Negative Normal NEGATIVE [facility] Comment on above: Performed By: #### C BC #### [facility] [address] [place] [address] Dr. Efren Parra BAR Negative Normal NEGATIVE [facility] Comment on above: Performed By: #### C BC #### [facility] [address] [place] [address] Dr. Efren Parra BUP Positive Abnormal NEGATIVE [facility] Comment on above: Performed By: #### C BC #### [facility] [address] [place] [address] Dr. Efren Parra BZO Negative Normal NEGATIVE [facility] Comment on above: Performed By: #### C BC #### [facility] [address] [place] [address] Dr. Efren Parra RENEA Negative Normal NEGATIVE [facility] Comment on above: Performed By: #### C BC #### [facility] [address] [place] [address] Dr. Efren Parra CUT-OFFS SEE BELOW Normal [facility] Comment on above: Result Comment: AMP (Amphetamine): 500ng/mL, BAR (Barbituates): 200 ng/mL, BZO (Benzodiazepines): 150 ng/mL, BUP (Buprenorphine): 10 ng/mL, RENEA (Cocaine): 150 ng/mL, mAMP (Methamphetamine): 500 ng/mL, MTD (Methadone): 200 ng/mL, OPI (Opiates): 100 ng/mL, OXY (Oxycodone): 100 ng/mL, PCP (Phencyclidine): 25 ng/mL, PPX (Propoxyphene): 300 ng/mL, THC (Cannabinoids): 50 ng/mL, TCA (Trycyclic Antidepressants): 300 ng/mL Performed By: #### C BC #### [facility] [address] [place] [address] Dr. Efren Parra DRUG CUT HEADER DRUG CLASS TEST SYSTEM CUT-OFF CONCENTRATIONS ARE FOLLOWS: Normal [facility] Comment on above: Performed By: #### C BC #### [facility] [address] [place] [address] Dr. Efern Parra mAMP Negative Normal NEGATIVE [facility] Comment on above: Performed By: #### C BC #### [facility] [address] [place] [address] Dr. Efren Parra MTD Negative Normal NEGATIVE [facility] Comment on above: Performed By: #### C BC #### [facility] [address] [place] [address] Dr. Efern Parra OPI Negative Normal NEGATIVE [facility] Comment on above: Performed By: #### C BC #### [facility] [address] [place] [address] Dr. Efren Parra OXY Negative Normal NEGATIVE [facility] Comment on above: Performed By: #### C BC #### [facility] [address] [place] [address] Dr. Efren Parra PCP Negative Normal NEGATIVE [facility] Comment on above: Performed By: #### C BC #### [facility] [address] [place] [address] Dr. Efren Parra PPX Negative Normal NEGATIVE [facility] Comment on above: Performed By: #### C BC #### [facility] [address] [place] [address] Dr. Efren Parra TCA Negative Normal NEGATIVE [facility] Comment on above: Performed By: #### C BC #### [facility] [address] [place] [address] Dr. Efren Parra THC Negative Normal NEGATIVE [facility] Comment on above: Performed By: #### C BC #### [facility] [address] [place] [address] Dr. Efren Parra ER URINE PROFILEon 2 Bilirubin Ql (U) Negative Normal NEGATIVE [facility] Comment on above: Performed By: #### U MICRO, DRUGRPD, ERUR #### [facility] [address] [address] [address] Efren Parra Clarity (U) CLEAR Normal CLEAR [facility] Comment on above: Performed By: #### U MICRO, DRUGRPD, ERUR #### [facility] [address] [place] [address] Dr. Efren Parra Color (U) LT. YELLOW Normal YELLOW [facility] Comment on above: Performed By: #### U MICRO, DRUGRPD, ERUR #### [facility] [address] [place] [address] Dr. Efren Parra ERUAHD A micrscopic examination will be performed if indicated. Normal [facility] Comment on above: Performed By: #### U MICRO, DRUGRPD, ERUR #### [facility] [address] [place] [address] Dr. Efren Parra Glucose Ql (U) Negative Normal NEGATIVE [facility] Comment on above: Performed By: #### U MICRO, DRUGRPD, ERUR #### [facility] [address] [place] [address] Dr. Efren Parra Hemoglobin Ql (U) Negative Normal NEGATIVE [facility] Comment on above: Performed By: #### U MICRO, DRUGRPD, ERUR #### [facility] [address] [address] [address] Efren Parra Ketones Ql (U) TRACE Abnormal NEGATIVE [facility] Comment on above: Performed By: #### U MICRO, DRUGRPD, ERUR #### [facility] [address] [place] [address] Dr. Efren Parra LEUKOCYTES TRACE Abnormal NEGATIVE [facility] Comment on above: Performed By: #### U MICRO, DRUGRPD, ERUR #### [facility] [address] [place] [address] Dr. Efren Parra Nitrite Ql (U) Positive Abnormal NEGATIVE [facility] Comment on above: Performed By: #### U MICRO, DRUGRPD, ERUR #### [facility] [address] [place] [address] Dr. Efren Parra pH (U) 8.5 [pH] Normal 5-9 [facility] Comment on above: Performed By: #### U MICRO, DRUGRPD, ERUR #### [facility] [address] [place] [address] Dr. Efren Parra SPEC GRAVITY 1.015 Normal 1.005-<=1.025 [facility] Comment on above: Performed By: #### U MICRO, DRUGRPD, ERUR #### [facility] [address] [place] [address] Dr. Efren Parra UA PROTEIN Negative Normal NEGATIVE/ TRACE [facility] Comment on above: Performed By: #### U MICRO, DRUGRPD, ERUR #### [facility] [address] [place] [address] Dr. Efren Parra UR MICRO IND INDICATED Normal [facility] Comment on above: Performed By: #### U MICRO, DRUGRPD, ERUR #### [facility] [address] [place] [address] Dr. Efren Parra Urobilinogen Qn (U) 0.2 {Adria'U}/dL Normal 0.2 - 1. 0 [facility] Comment on above: Performed By: #### U MICRO, DRUGRPD, ERUR #### [facility] [address] [place] [address] Dr. Efren Parra ETHANOL (BLD ALC)on 04-10-20 ALC NOTE NOTE: 80 mg/dl is th e legal limit for a blood alcohol level Normal [facility] Comment on above: Performed By: #### A CET, ETH, SALYC, CMP #### [facility] [address] [place] [address] Dr. Efren Parra Ethanol [Mass/Vol] mg/dL Normal [facility] Comment on above: Performed By: #### A CET, ETH, SALYC, CMP #### [facility] [address] [place] [address] Dr. Efren Parra PREG HCG QUALon 04-10-2022 , QUAL Negative Normal NEGATIVE [facility] Comment on above: Performed By: #### P REG #### [facility] [address] [place] [address] Dr. Efren Parra PROF 14(COMP METB)on 022 Albumin [Mass/Vol] 3.6 g/dL Normal 3.4-5.0 [facility] Comment on above: Performed By: #### A CET, ETH, SALYC, CMP #### [facility] [address] [place] [address] Dr. Efren Parra Albumin/Globulin [Mass ratio] 1.0 {ratio} Normal [facility] Comment on above: Performed By: #### A CET, ETH, SALYC, CMP #### [facility] [address] [place] [id number] Dr. Efren Parra ALP [Catalytic activity/Vol] 62 U/L Normal 46-116 [facility] Comment on above: Performed By: #### A CET, ETH, SALYC, CMP #### [facility] [address] [place] [address] Dr. Efren Parra ALT [Catalytic activity/Vol] 29 U/L Normal 14-59 [facility] Comment on above: Performed By: #### A CET, ETH, SALYC, CMP #### [facility] [address] [place] [address] Dr. Efren Parra Anion gap [Moles/Vol] 10.8 mmol/L Normal [facility] Comment on above: Performed By: #### A CET, ETH, SALYC, CMP #### [facility] [address] [place] [address] Dr. Efren Parra AST [Catalytic activity/Vol] 11 U/L Critically low 15-37 [facility] Comment on above: Performed By: #### A CET, ETH, SALYC, CMP #### [facility] [address] [place] [address] Dr. Efren Parra Bilirubin [Mass/Vol] 0.4 mg/dL Normal 0.2-1.0 [facility] Comment on above: Performed By: #### A CET, ETH, SALYC, CMP #### [facility] [address] [place] [address] Dr. Efren Parra Calcium [Mass/Vol] 9.3 mg/dL Normal 8.5-10.1 [facility] Comment on above: Performed By: #### A CET, ETH, SALYC, CMP #### [facility] [address] [place] [address] Dr. Efren Parra Chloride [Moles/Vol] 105 mmol/L Normal 98-107 [facility] Comment on above: Performed By: #### A CET, ETH, SALYC, CMP #### [facility] [address] [place] [address] Dr. Efren Parra CO2 [Moles/Vol] 26.8 mmol/L Normal 21.0-32.0 [facility] Comment on above: Performed By: #### A CET, ETH, SALYC, CMP #### [facility] [address] [place] [address] Dr. Efren Parra Creatinine [Mass/Vol] 0.64 mg/dL Normal 0.55-1.02 [facility] Comment on above: Performed By: #### A CET, ETH, SALYC, CMP #### [facility] [address] [place] [address] Dr. Efren Parra EGFR-AF SAMOAN >60 Normal >=60 [facility] Comment on above: Performed By: #### A CET, ETH, SALYC, CMP #### [facility] [address] [place] [address] Dr. Efren Parra EGFR-NON AF SAMOAN >60 Normal >=60 [facility] Comment on above: Performed By: #### A CET, ETH, SALYC, CMP #### [facility] [address] [place] [address] Dr. Efren Parra Globulin (S) [Mass/Vol] 3.5 g/dL Normal [facility] Comment on above: Performed By: #### A CET, ETH, SALYC, CMP #### [facility] [address] [place] [address] Dr. Efren Parra Glucose [Mass/Vol] 113 mg/dL Critically high 74-106 [facility] Comment on above: Performed By: #### A CET, ETH, SALYC, CMP #### [facility] [address] [address] [address] Efren Parra Potassium [Moles/Vol] 4.6 mmol/L Normal 3.5-5.1 [facility] Comment on above: Performed By: #### A CET, ETH, SALYC, CMP #### [facility] [address] [place] [address] Dr. Efren Parra Protein [Mass/Vol] 7.1 g/dL Normal 6.4-8.2 [facility] Comment on above: Performed By: #### A CET, ETH, SALYC, CMP #### [facility] [address] [place] [address] Dr. Efren Parra Sodium [Moles/Vol] 138 mmol/L Normal 136-145 [facility] Comment on above: Performed By: #### A CET, ETH, SALYC, CMP #### [facility] [address] [place] [address] Dr. Efren Parra Urea nitrogen [Mass/Vol] 8.0 mg/dL Normal 7.0-18.0 [facility] Comment on above: Performed By: #### A CET, ETH, SALYC, CMP #### [facility] [address] [place] [address] Dr. Efren Parra Urea nitrogen/Creatinine [Mass ratio] 12.5 mg/mg Normal [facility] Comment on above: Performed By: #### A CET, ETH, SALYC, CMP #### [facility] [address] [place] [address] Dr. Efren Parra SALICYLATEon 04-10-2022 SALICYLATE 3.3 mg/dL Normal <=19.9 [facility] Comment on above: Performed By: #### A CET, ETH, SALYC, CMP #### [facility] [address] [address] [address] Efren Parra URINE MICROSCOPIC ONLYon BACTERIA LARGE Abnormal NONE SEEN [facility] Comment on above: Performed By: #### C BC #### [facility] [address] [place] [address] Dr. Efren Parra Bacteria identified Cx Nom (U) INDICATED Normal [facility] Comment on above: Performed By: #### C BC #### [facility] [address] [place] [address] Dr. Efren Parra CAST NONE SEEN Normal NONE SEEN [facility] Comment on above: Performed By: #### C BC #### [facility] [address] [place] [address] Dr. Efren Parra Crystals LM Nom (Urine sed) NONE SEEN Normal NONE SEEN [facility] Comment on above: Performed By: #### C BC #### [facility] [address] [place] [address] Dr. Efren Parra Epithelial cells LM Ql (Urine sed) MANY Abnormal NONE SEEN /RARE [facility] Comment on above: Performed By: #### C BC #### [facility] [address] [place] [address] Dr. Efren Parra MUCOUS NONE SEEN Normal NONE SEEN [facility] Comment on above: Performed By: #### C BC #### [facility] [address] [place] [address] Dr. Efren Parra RBC 0-2 Normal 0-2 [facility] Comment on above: Performed By: #### C BC #### [facility] [address] [place] [address] Dr. Efren Parra WBC 5-10 Abnormal NONE SEEN [facility] Comment on above: Performed By: #### C BC #### [facility] [address] [place] [address] Dr. Efren Parra Hemoglobin A1Con 02-08-2021 Glucose [Mass/Vol] 103 mg/dL Normal [facility] Comment on above: Result Comment: The ADA and AACC recommend providing the estimated average glucose result to permit better patient understanding of their HBA1c result. Performed By: #### G LYHGB #### [facility] [address] [place], [place] [id number] Pricing Intern: Bryan Cruz MD HbA1c (Bld) [Mass fraction] 5.2 % Normal 4.0-6.0 [facility] Comment on above: Performed By: #### G LYHGB #### [facility] [address] [place] [address] Pricing Intern: Bryan Cruz MD XR CHEST (SINGLE VIEW [...] Xavier MD 02/07/21 Final result Normal [facility] Drug Scr, Abuse, Uron 2020 Amphetamine(s),Ur Negative Normal NEG [facility] Comment on above: Result Comment: (Positive cutoff 1000 ng/mL) Performed By: #### U HCG #### [facility] [address] [facility]. [place], [place] [id number] Pricing Intern: José Miguel Monzon DO Barbiturate(s),Ur Negative Normal NEG [facility] Comment on above: Result Comment: (Positive cutoff 200 ng/mL) Performed By: #### U HCG #### [facility] [address] [place] [address] Pricing Intern: José Miguel Monzon DO Benzodiazepine(s) Positive Abnormal NEG [facility] Comment on above: Result Comment: (Positive cutoff 200 ng/mL) Performed By: #### U HCG #### [facility] [address] [place] [address] Pricing Intern: José Miguel Monzon DO Cannabinoid(s),Ur Negative Normal NEG [facility] Comment on above: Result Comment: (Positive cutoff 50 ng/mL) Performed By: #### U HCG #### [facility] [address] [place] [address] Pricing Intern: José Miguel Monzon DO Cocaine Metabolite Negative Normal [facility] Comment on above: Result Comment: (Positive cutoff 300 ng/mL) Performed By: #### U HCG #### [facility] [address] [place] [address] Pricing Intern: José Miguel Monzon DO Interpretive Info Assay provides medical screening only. The absence of expected drug(s) and/or Normal [facility] Comment on above: Result Comment: meta bolite(s) may indicate diluted or adulterated urine, limitations of testing or timing of collection. Testing for legal purposes should be confirmed by another method. To request confirmation of test result, please call the lab within 7 days of sample submission. Performed By: #### U HCG #### [facility] [address] [place] [phone] Pricing Intern: José Miguel Monzon DO Methadone Ql (U) Negative Normal NEG [facility] Comment on above: Result Comment: (Positive cutoff 300 ng/mL) Performed By: #### U HCG #### [facility] [address] [place] [address] Pricing Intern: José Miguel Monzon DO Opiate(s), Ur Negative Normal NEG [facility] Comment on above: Result Comment: (Positive cutoff 300 ng/mL) Performed By: #### U HCG #### [facility] [address] [place] [address] Pricing Intern: José Miguel Monzon DO Oxycodone, Urine Negative Normal NEG [facility] Comment on above: Result Comment: (Positive cutoff 100 ng/mL) Performed By: #### U HCG #### [facility] [address] [place] [address] Pricing Intern: José Miguel Monzon DO Phencyclidine, Ur Negative Normal NEG [facility] Comment on above: Result Comment: (Positive cutoff 25 ng/mL) Performed By: #### U HCG #### [facility] [address] [place] [address] Pricing Intern: José Miguel Monzon DO Buprenorphrine, Ur NOT REPORTED Normal NEG [facility] Comment on above: Performed By: #### U HCG #### [facility] [address] [place] [address] Pricing Intern: José Miguel Monzon DO MDMA, Urine NOT REPORTED Normal NEG [facility] Comment on above: Performed By: #### U HCG #### [facility] [address] [place] [address] Pricing Intern: José Miguel Monzon DO Methamphetamine, Ur NOT REPORTED Normal NEG [facility] Comment on above: Performed By: #### U HCG #### [facility] [address] [place] [address] Pricing Intern: José Miguel Monzon DO Propoxyphene,Urine NOT REPORTED Normal NEG [facility] Comment on above: Performed By: #### U HCG #### [facility] [address] [place] [address] Pricing Intern: José Miguel Monzon DO Tricyclic antidepressants Screen Ql (U) NOT REPORTED Normal NEG [facility] Comment on above: Performed By: #### U HCG #### [facility] [address] [place] [address] Pricing Intern: José Miguel Monzon DO Urinalysis, Routineon 2020 Acetoacetic Acid,Ur Negative Normal NEG [facility] Comment on above: Performed By: #### U HCG #### [facility] [address] [place] [address] Pricing Intern: José Miguel Monzon DO Bilirubin, SemiQt,Ur Negative Normal NEG [facility] Comment on above: Performed By: #### U HCG #### [facility] [place] [address] Pricing Intern: José Miguel Monzon DO Color (U) YELLOW Normal YEL [facility] Comment on above: Performed By: #### U HCG #### [facility] [place] [address] Pricing Intern: José Miguel Monzon DO Glucose Ql (U) Negative Normal NEG [facility] Comment on above: Performed By: #### U HCG #### [facility] [place] [address] Pricing Intern: José Miguel Monzon DO Hemoglobin, Ur MOD Abnormal NEG [facility] Comment on above: Performed By: #### U HCG #### [facility] [place] [address] Pricing Intern: José Miguel Monzon DO Leukocyte esterase Test strip Ql (U) LARGE Abnormal NEG [facility] Comment on above: Performed By: #### U HCG #### [facility] [place] [address] Pricing Intern: José Miguel Monzon DO Nitrite,Ur Negative Normal NEG [facility] Comment on above: Performed By: #### U HCG #### [facility] [address] [place] [address] Pricing Intern: José Miguel Monzon DO PH,Ur 7.5 Normal 5.0-8.0 [facility] Comment on above: Performed By: #### U HCG #### [facility] [address] [place] [address] Pricing Intern: José Miguel Monzon DO Protein Ql (U) 2+ Abnormal NEG [facility] Comment on above: Performed By: #### U HCG #### [facility] [address] [place] [address] Pricing Intern: José Miguel Monzon DO Spec. [place],Ur 1.019 Normal 1.000-1.030 [facility] Comment on above: Performed By: #### U HCG #### [facility] [address] [place] [address] Pricing Intern: José Miguel Monzon DO Turbidity TURBID Abnormal CLEAR [facility] Comment on above: Performed By: #### U HCG #### [facility] [place] [address] Pricing Intern: José Miguel Monzon DO Urobilinogen,Ur Normal Normal NORM [facility] Comment on above: Performed By: #### U HCG #### [facility] [place] [address] Pricing Intern: José Miguel Monzon DO Comment NOT REPORTED Normal [facility] Comment on above: Performed By: #### U HCG #### [facility] [place] [address] Pricing Intern: José Miguel Monzon DO Urinalysis,Microon 1 ----- Normal [facility] Comment on above: Performed By: #### U HCG #### [facility] [address] [place] [address] Pricing Intern: José Miguel Monzon DO Bacteria MANY Abnormal [facility] Comment on above: Performed By: #### U HCG #### [facility] [address] [place] [address] Pricing Intern: José Miguel Monzon DO Epithelial cells LM Ql (Urine sed) 2 TO 5 Normal [facility] Comment on above: Performed By: #### U HCG #### [facility] [address] [place] [address] Pricing Intern: José Miguel Monzon DO Urine RBC's 10 TO 20 Normal [facility] Comment on above: Performed By: #### U HCG #### [facility] [address] [place] [address] Pricing Intern: José Miguel Monzon DO Urine WBC's 50 TO 100 Normal [facility] Comment on above: Performed By: #### U HCG #### [facility] [address] [place] [address] Pricing Intern: José Miguel Monzon DO Amorphous sediment LM Ql (Urine sed) NOT REPORTED Normal [facility] Comment on above: Performed By: #### U HCG #### [facility] [address] [place] [address] Pricing Intern: José Miguel Monzon DO Casts NOT REPORTED Normal [facility] Comment on above: Performed By: #### U HCG #### [facility] [address] [place] [address] Pricing Intern: José Miguel Monzon DO Crystals LM Nom (Urine sed) NOT REPORTED Normal [facility] Comment on above: Performed By: #### U HCG #### [facility] [place] [address] Pricing Intern: José Miguel Monzon DO Epithelial, Renal NOT REPORTED Normal 0 [facility] Comment on above: Performed By: #### U HCG #### [facility] [place] [address] Pricing Intern: José Miguel Monzon DO Mucus Strands NOT REPORTED Normal NONE [facility] Comment on above: Performed By: #### U HCG #### [facility] [address] [place] [address] Pricing Intern: José Miguel Monzon DO Other Observations NOT REPORTED Normal NREQ [facility] Comment on above: Performed By: #### U HCG #### [facility] [address] [place] [address] Pricing Intern: José Miguel Monzon DO Trichomonas NOT REPORTED Normal NONE [facility] Comment on above: Performed By: #### U HCG #### [facility] [address] [place] [address] Pricing Intern: José Miguel Monzon DO Yeast NOT REPORTED Normal NONE [facility] Comment on above: Performed By: #### U HCG #### [facility] [address] [place] [phone] Pricing Intern: José Miguel Monzon DO Acetaminophenon 0173 Acetaminophen [Mass/Vol] ug/mL Low 10-30 [facility] Comment on above: Performed By: #### C MPX, REJEC, HCG, ACET, ALCB, SALI #### [facility] [place] [address] Pricing Intern: José Miguel Monzon DO CBC with Diffon 02-05-2021 Abs. Basophil 0.00 k/uL Normal 0.0-0.2 [facility] Comment on above: Performed By: #### U HCG #### [facility] [place] [address] Pricing Intern: José Miguel Monzon DO Abs.Neutrophil (Seg) 3.50 k/uL Normal 1.3-9.1 [facility] Comment on above: Performed By: #### U HCG #### [facility] [address] [place] [address] Pricing Intern: José Miguel Monzon DO Basophils/100 WBC (Bld) 1 % Normal 0-2 [facility] Comment on above: Performed By: #### U HCG #### [facility] [place] [address] Pricing Intern: José Miguel Monzon DO Eosinophils (Bld) [#/Vol] 0.10 10*3/uL Normal 0.0-0.4 [facility] Comment on above: Performed By: #### U HCG #### [facility] [place] [address] Pricing Intern: José Miguel Monzon DO Eosinophils/100 WBC (Bld) 2 % Normal 0-4 [facility] Comment on above: Performed By: #### U HCG #### [facility] [address] [place] [address] Pricing Intern: José Miguel Monzon DO Erythrocyte distribution width (RBC) [Ratio] 13.3 % Normal 11.5-14.9 [facility] Comment on above: Performed By: #### U HCG #### [facility] [place] [address] Pricing Intern: José Miguel Monzon DO Hematocrit (Bld) [Volume fraction] 35.6 % Low 36-46 [facility] Comment on above: Performed By: #### U HCG #### [facility] [place] [address] Pricing Intern: José Miguel Monzon DO Hemoglobin (Bld) [Mass/Vol] 12.1 g/dL Normal 12.0-16.0 [facility] Comment on above: Performed By: #### U HCG #### [facility] [address] [place] [address] Pricing Intern: José Miguel Monzon DO Lymphocytes (Bld) [#/Vol] 2.30 10*3/uL Normal 1.0-4.8 [facility] Comment on above: Performed By: #### U HCG #### [facility] [address] [place] [address] Pricing Intern: José Miguel Monzon DO Lymphocytes/100 WBC (Bld) 36 % Normal 24-44 [facility] Comment on above: Performed By: #### U HCG #### [facility] [address] [place] [address] Pricing Intern: José Miguel Monzon DO MCH (RBC) [Entitic mass] 30.9 pg Normal 26-34 [facility] Comment on above: Performed By: #### U HCG #### [facility] [address] [place] [phone] Pricing Intern: José Miguel Monzon DO MCHC (RBC) [Mass/Vol] 33.9 g/dL Normal 31-37 [facility] Comment on above: Performed By: #### U HCG #### [facility] [address] [place] [address] Pricing Intern: José Miguel Monzon DO MCV (RBC) [Entitic vol] 91.4 fL Normal 80-100 [facility] Comment on above: Performed By: #### U HCG #### [facility] [address] [place] [address] Pricing Intern: José Miguel Monzon DO Monocytes (Bld) [#/Vol] 0.40 10*3/uL Normal 0.1-1.3 [facility] Comment on above: Performed By: #### U HCG #### [facility] [place] [address] Pricing Intern: José Miguel Monzon DO Monocytes/100 WBC (Bld) 7 % Normal 1-7 [facility] Comment on above: Performed By: #### U HCG #### [facility] [address] [place] [address] Pricing Intern: José Miguel Monzon DO Neutrophil (Seg) 54 % Normal 36-66 [facility] Comment on above: Performed By: #### U HCG #### [facility] [place] [address] Pricing Intern: José Miguel Monzon DO Platelet mean volume (Bld) [Entitic vol] 8.6 fL Normal 6.0-12.0 [facility] Comment on above: Performed By: #### U HCG #### [facility] [address] [place] [address] Pricing Intern: José Miguel Monzon DO Platelets (Bld) [#/Vol] 212 10*3/uL Normal 150-450 [facility] Comment on above: Performed By: #### U HCG #### [facility] [place] [address] Pricing Intern: José Miguel Monzon DO RBC (Bld) [#/Vol] 3.90 10*6/uL Low 4.0-5.2 [facility] Comment on above: Performed By: #### U HCG #### [facility] [address] [place] [address] Pricing Intern: José Miguel Monzon DO WBC (Bld) [#/Vol] 6.4 10*3/uL Normal 3.5-11.0 [facility] Comment on above: Performed By: #### U HCG #### [facility] [address] [place] [address] Pricing Intern: José Miguel Monzon DO Abs.Imm.Granulocyte NOT REPORTED Normal 0.00-0.30 [facility] Comment on above: Performed By: #### U HCG #### [facility] [address] [place] [address] Pricing Intern: José Miguel Monzon DO Auto Diff Performed NOT REPORTED Normal [facility] Comment on above: Performed By: #### U HCG #### [facility] [address] [place] [phone] Pricing Intern: José Miguel Monzon DO Immature Granulocyte NOT REPORTED Normal 0 [facility] Comment on above: Performed By: #### U HCG #### [facility] [facility] [address] [place] [id number] Pricing Intern: José Miguel Monzon DO NRBC Automated NOT REPORTED Normal [facility] Comment on above: Performed By: #### U HCG #### [facility] [address] [place] [address] Pricing Intern: José Miguel Monzon DO Platelet Estimate NOT REPORTED Normal [facility] Comment on above: Performed By: #### U HCG #### [facility] [address] [place] [address] Pricing Intern: José Miguel Monzon DO RBC morphology finding Nom (Bld) NOT REPORTED Normal [facility] Comment on above: Performed By: #### U HCG #### [facility] [address] [facility] [place] [address] Pricing Intern: José Miguel Monzon DO WBC Morphology NOT REPORTED Normal [facility] Comment on above: Performed By: #### U HCG #### [facility] [address] [facility] [place] [address] Pricing Intern: José Miguel Monzon DO Comp Metabolic Pr/rfx MGon 0 - AST [Catalytic activity/Vol] 17 U/L Normal <32 [facility] Comment on above: Performed By: #### C MPX, REJEC, HCG, ACET, ALCB, SALI #### [facility] [address] [facility] [place] [place] [address] Pricing Intern: José Miguel Monzon DO Bilirubin [Mass/Vol] mg/dL Low 0.3-1.2 [facility] Comment on above: Performed By: #### C MPX, REJEC, HCG, ACET, ALCB, SALI #### [facility] [address] [facility] [place] [place] [address] Pricing Intern: José Miguel Monzon DO Potassium [Moles/Vol] 4.4 mmol/L Normal 3.7-5.3 [facility] Comment on above: Result Comment: SPEC IMEN SLIGHTLY HEMOLYZED, RESULTS MAY BE ADVERSELY AFFECTED. Performed By: #### C MPX, REJEC, HCG, ACET, ALCB, SALI #### [facility] [address] [facility] [place] [address] Pricing Intern: José Miguel Monzon DO (cont.) Normal [facility] Comment on above: Result Comment: Aver age GFR for 30-39 years old: 107 mL/min/1.73sq m Chronic Kidney Disease: <60 mL/min/1.73sq m Kidney failure: <15 mL/min/1.73sq m eGFR calculated using average adult body mass. Additional eGFR calculator available at: http://www.DrDoctor.com/multiple_crcl_2011.htm Performed By: #### C MPX, REJEC, HCG, ACET, ALCB, SALI #### [facility] [address] [place] [address] Pricing Intern: José Miguel Monzon DO Albumin [Mass/Vol] 3.7 g/dL Normal 3.5-5.2 [facility] Comment on above: Performed By: #### C MPX, REJEC, HCG, ACET, ALCB, SALI #### [facility] [address] [place] [address] Pricing Intern: José Miguel Monzon DO Alkaline Phos 42 U/L Normal 35-104 [facility] Comment on above: Performed By: #### C MPX, REJEC, HCG, ACET, ALCB, SALI #### [facility] [address] [place] [address] Pricing Intern: José Miguel Monzon DO ALT [Catalytic activity/Vol] 12 U/L Normal 5-33 [facility] Comment on above: Performed By: #### C MPX, REJEC, HCG, ACET, ALCB, SALI #### [facility] [address] [facility] [place] [address] Pricing Intern: José Miguel Monzon DO Anion gap [Moles/Vol] 15 mmol/L Normal 9-17 [facility] Comment on above: Performed By: #### C MPX, REJEC, HCG, ACET, ALCB, SALI #### [facility] [address] [place] [address] Pricing Intern: José Miguel Monzon DO Calcium [Mass/Vol] 9.4 mg/dL Normal 8.6-10.4 [facility] Comment on above: Performed By: #### C MPX, REJEC, HCG, ACET, ALCB, SALI #### [facility] [address] [place] [address] Pricing Intern: José Miguel Monzon DO Chloride [Moles/Vol] 100 mmol/L Normal 98-107 [facility] Comment on above: Performed By: #### C MPX, REJEC, HCG, ACET, ALCB, SALI #### [facility] [address] [place] [address] Pricing Intern: José Miguel Monzon DO CO2 [Moles/Vol] 21 mmol/L Normal 20-31 [facility] Comment on above: Performed By: #### C MPX, REJEC, HCG, ACET, ALCB, SALI #### [facility] [address] [place] [address] Pricing Intern: José Miguel Monzon DO Creatinine [Mass/Vol] 0.51 mg/dL Normal 0.50-0.90 [facility] Comment on above: Performed By: #### C MPX, REJEC, HCG, ACET, ALCB, SALI #### [facility] [address] [place] [address] Pricing Intern: José Miguel Monzon DO GFR, Amer >60 Normal >60 [facility] Comment on above: Performed By: #### C MPX, REJEC, HCG, ACET, ALCB, SALI #### [facility] [address] [place] [address] Pricing Intern: José Miguel Monzon DO GFR,non Amer >60 Normal >60 [facility] Comment on above: Performed By: #### C MPX, REJEC, HCG, ACET, ALCB, SALI #### [facility] [address] [place] [address] Pricing Intern: José Miguel Monzon DO Glucose [Mass/Vol] 111 mg/dL High 70-99 [facility] Comment on above: Performed By: #### C MPX, REJEC, HCG, ACET, ALCB, SALI #### [facility] [address] [place] [address] Pricing Intern: José Miguel Monzon DO Protein [Mass/Vol] 6.6 g/dL Normal 6.4-8.3 [facility] Comment on above: Performed By: #### C MPX, REJEC, HCG, ACET, ALCB, SALI #### [facility] [address] [place] [address] Pricing Intern: José Miguel Monzon DO Sodium [Moles/Vol] 136 mmol/L Normal 135-144 [facility] Comment on above: Performed By: #### C MPX, REJEC, HCG, ACET, ALCB, SALI #### [facility] [address] [facility] [place] [address] Pricing Intern: José Miguel Monzon DO Urea nitrogen [Mass/Vol] 14 mg/dL Normal 6-20 [facility] Comment on above: Performed By: #### C MPX, REJEC, HCG, ACET, ALCB, SALI #### [facility] [address] [facility] [place] [address] Pricing Intern: José Miguel Monzon DO Albumin/Glob Ratio NOT REPORTED Normal 1.0-2.5 [facility] Comment on above: Performed By: #### C MPX, REJEC, HCG, ACET, ALCB, SALI #### [facility] [address] [place] [address] Pricing Intern: José Miguel Monzon DO BUN/CRE Ratio NOT REPORTED Normal 9-20 [facility] Comment on above: Performed By: #### C MPX, REJEC, HCG, ACET, ALCB, SALI #### [facility] [address] [place] [address] Pricing Intern: José Miguel Monzon, DO Staging: NOT REPORTED Normal [facility] Comment on above: Performed By: #### C MPX, REJEC, HCG, ACET, ALCB, SALI #### [facility] [address] [facility] [place] [address] Pricing Intern: José Miguel Monzon DO Ethanol Alcoholon 02-05-2021 Ethanol [Mass/Vol] mg/dL Normal <10 [facility] Comment on above: Performed By: #### C MPX, REJEC, HCG, ACET, ALCB, SALI #### [facility] [address] [facility] [place] [address] Pricing Intern: José Miguel Monzon DO Ethanol percent <0.010 Normal [facility] Comment on above: Performed By: #### C MPX, REJEC, HCG, ACET, ALCB, SALI #### [facility] [address] [facility] [place] [address] Pricing Intern: José Miguel Monzon DO HCG Screen, Bloodon 02-06-20 21 HCG Screen, Blood Negative Normal NEG [facility] Comment on above: Result Comment: [...] MPX, REJEC, HCG, ACET, ALCB, SALI #### [facility] [address] [facility] [place] [address] Pricing Intern: José Miguel Monzon DO [id number] 02-05-2021 SARS-CoV-2 (COVID-19) RNA LUKASZ+probe Ql (Unsp spec) Not detected Normal NOTDET [facility] Comment on above: Result Comment: Rapid [...] management decisions. Fact sheet for Healthcare Providers: https://www.fda.gov/media/575605/download Fact sheet for Patients: https://www.fda.gov/media/324326/download Methodology: Isothermal Nucleic Acid Amplification Performed By: #### U HCG #### [facility] [address] [facility] [place] [address] Pricing Intern: José Miguel Monzon DO Salicylateon 02-05-2021 Salicylate <1 Low 3-10 [facility] Comment on above: Performed By: #### C MPX, REJEC, HCG, ACET, ALCB, SALI #### [facility] [place] [address] Pricing Intern: José Miguel Monzon DO Specimen Rejectionon Reason for rejection Unable to perform testing: Specimen quantity not sufficient. Normal [facility] Comment on above: Performed By: #### C MPX, REJEC, HCG, ACET, ALCB, SALI #### [facility] [address] [facility] [place] [address] Pricing Intern: José Miguel Monzon DO Source of sample .BLOOD [facility] Comment on above: Performed By: #### C MPX, REJEC, HCG, ACET, ALCB, SALI #### [facility] [address] [facility] [place] [address] Pricing Intern: José Miguel Monzon DO Test ordered CDP [facility] Comment on above: Performed By: #### C MPX, REJEC, HCG, ACET, ALCB, SALI #### [facility] [address] [facility] [place] [address] Pricing Intern: José Miguel Monzon DO ----- NOT REPORTED Normal [facility] Comment on above: Performed By: #### C MPX, REJEC, HCG, ACET, ALCB, SALI #### [facility] [address] [facility] [place] [address] Pricing Intern: José Miguel Monzon DO HPV DNA High Riskon 10-22-20 20 HPV Genotype 16 Detected Normal [facility] Comment on above: Performed By: #### U HCG #### [facility] [place] [address] Pricing Intern: José Miguel Monzon DO HPV Genotype 18 Not detected Normal [facility] Comment on above: Result Comment: (NOT E) [...] in women under age 21. Performed By: [employer] [address] [place] [address] Label Printer: Rebeca Alvarez MD Performed By: #### U HCG #### [facility] [address] [facility] [place] [address] Pricing Intern: José Miguel Monzon DO HPV Other High Risk Detected Normal [facility] Comment on above: Performed By: #### U HCG #### [facility] [address] [place] [address] Pricing Intern: José Miguel Monzon DO C.trachomatis N.gonorrhoeae DNA, Urineon 07-26-2020 C. trachomatis DNA ,Urine Negative NEGATIVE [facility], [place] Comment on above: CHLAMYDIA TRACHOMATI S DNA [...] target. N. gonorrhoeae DNA, Urine Negative NEGATIVE [facility], [place] Comment on above: NEISSERIA GONORRHOEA E DNA [...] alternative nucleic acid target. Specimen Description .URINE [facility], [place] Chlamydia/GC DNA, Uron 07-26 Chlamydia Probe, Ur Negative Normal NEG [facility] Comment on above: Result Comment: CHLA [...] target. Performed By: #### U HCG #### [facility] [address] [place] [address] Pricing Intern: Fanelly, José Miguel, DO Gonorrhea Probe, Ur Negative Normal NEG [facility] Comment on above: Result Comment: NEIS [...] target. Performed By: #### U HCG #### [facility] [address] [facility]. [place], [place] [id number] Pricing Intern: José Miguel Monzon DO PARTS DATA WRITER Cytologyon 07-25-2020 Cytology report Cyto stain.thin prep Doc (Cvx/Vag) INTERPRETATION Cervical material, (ThinPrep vial, Imaging-assisted review): Specimen Adequacy: Satisfactory for evaluation. - Endocervical/transfor mation zone component present. 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 Atypical squamous cells of undetermined significance, cannot exclude high grade squamous intraepithelial lesion (ASC-H). Comments: High Risk HPV testing was ordered. Inventory Worker: GRACE Mclain M.D. Electronically Signed Out sls07/25/2020 Procedure/Addendum HPV Procedure Report Date Ordered: 07/25/2020 Status: Complete Date Complete: 07/25/2020 By: Date Reported: Source: 1: Cervical material, (ThinPrep vial, Imaging-assisted review) Clinical History Co-Test: ThinPrep Pap with high risk HPV testing GYNECOLOGIC CYTOLOGY REPORT Patient Name: LORNA DEUTSCH [facility] Rec: [id number] Path Number: [id number] [facility] [employer] [facility] ANATOMIC PATHOLOGY [address] [place] [address]. [place], [place] [address] [facility], [place] HPV DNA High Riskon 07-25-20 20 HVP Source .GENITAL - NOT SPECIFIED Normal [facility] Comment on above: Performed By: #### U HCG #### [facility] [address] [facility] [place], [place] [id number] Pricing Intern: José Miguel Monzon DO Otheron 07-25-2020 EXAMINATION: [...] Fluid: Small volume left adnexal free fluid. [place], [place], [facility] Incoming Radiant Results From [employer] - 07/25/2020 7:17 PM EDT EXAMINATION: PELVIC [...] ovarian cyst. No follow-up imaging is recommended. [place], [place] Unremarkable pelvic ultrasound. 3.2 cm simple left ovarian cyst. No follow-up imaging is recommended. [place], [place] US NON OB TRANSVAGINALon US NON [...] Montesinos MD 07/25/20 Final result Normal [facility] US PELVIS COMPLETEon 020 US PELVIS [...] Montesinos MD 07/25/20 Final result Normal [facility] Cytologyon 07-24-2020 Cytology (NOTE) INTERPRETATION Cervical material, (ThinPrep vial, Imaging-assisted review): Specimen Adequacy: Satisfactory for evaluation. - Endocervical/transfor mation zone component present. 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 Atypical squamous cells of undetermined significance, cannot exclude high grade squamous intraepithelial lesion (ASC-H). Comments: High Risk HPV testing was ordered. Inventory Worker: GRACE Mclain M.D. Electronically Signed Out 07/25/2020 [...] specimen submitted for testing did not meet [employer] submission guidelines. Testing was performed on a specimen that did not meet validated specimen type requirements. Performance characteristics of this assay may be affected. Interpret results with caution. Please refer to the [employer] [facility] Test Directory for information on specimen acceptability: [email or web address] [email or web address]/[email or web address]. Performed By: [employer] [address] [place] [address] Label Printer: Rebeca Alvarez MD Source: 1: Cervical material, (ThinPrep vial, Imaging-assisted review) Clinical History Co-Test: ThinPrep Pap with high risk HPV testing GYNECOLOGIC CYTOLOGY REPORT Patient Name: LORNA DEUTSCH Rec: [id number] Path Number: [id number] [facility] ANATOMIC PATHOLOGY [address] [place] [phone] Normal [facility] Comment on above: Performed By: #### A HCV, HIVCMB #### [address] [id number] Pricing Intern: Bryan Cruz MD Otheron 07-24-2020 Direct Exam Negative [place] Vaginitis DNA Probeon 2019 Vaginitis DNA [...] symptoms of vaginitis/vaginosis. Report Status FINAL 07/24/[address] [facility] Comment on above: Performed By: #### U HCG #### [facility] [address] [place] [address] Pricing Intern: José Miguel Monzon DO Direct Exam Method of testing is a DNA probe intended for detection and identification of Jose Ramon species, Gardnerella vaginalis, and Trichomonas vaginalis nucleic acid in vaginal fluid specimens from patients with symptoms of vaginitis/vaginosis. [place] Special Requests NOT REPORTED [place] Specimen Description .VAGINA [place], [place] CBC with DIFFon 07-23-2020 Basophils (Bld) [#/Vol] 0.00 10*3/uL [place] Basophils/100 WBC (Bld) 0 % 0 - 2 % [place] Differential Type NOT REPORTED [place] Eosinophils (Bld) [#/Vol] 0.20 10*3/uL [place] Eosinophils/100 WBC (Bld) 4 % 0 - 4 % [place] Erythrocyte distribution width (RBC) [Ratio] 13.3 % 11.5 - 14.9 % [place] Hematocrit (Bld) [Volume fraction] 40.0 % 36 - 46 % [place] Hemoglobin (Bld) [Mass/Vol] 13.7 g/dL 12 - 16 g/dL [place] Interpretation and review of laboratory results Abnormal [place] Lymphocytes (Bld) [#/Vol] 2.64 10*3/uL [place] Lymphocytes/100 WBC (Bld) 54 % High 24 - 44 % [place] MCH (RBC) [Entitic mass] 31.4 pg 26 - 34 pg [place] MCHC (RBC) [Mass/Vol] 34.2 g/dL 31 - 37 g/dL [place] MCV (RBC) [Entitic vol] 91.9 fL 80 - 100 fL [place] Monocytes (Bld) [#/Vol] 0.20 10*3/uL [place] Monocytes/100 WBC (Bld) 4 % 1 - 7 % [place], [place] Morphology Dami (Bld) [Interp] Normal [place] Platelet mean volume (Bld) [Entitic vol] 10.1 fL 6 - 12 fL [place] Platelets (Bld) [#/Vol] NOT REPORTED [place] Platelets (Bld) [#/Vol] 142 10*3/uL Low [place] RBC (Bld) [#/Vol] 4.36 10*6/uL 4 - 5.2 m/uL [place], [place] RBC morphology finding Nom (Bld) NOT REPORTED [place] Segmented neutrophils/100 WBC (Bld) 38 % 36 - 66 % [place] Segs Absolute 1.86 [place] WBC (Bld) [#/Vol] NOT REPORTED per 100 WBC [place] WBC (Bld) [#/Vol] 4.9 10*3/uL [place] WBC Morphology NOT REPORTED [place] CBC with Diffon 07-23-2020 Abs. Basophil 0.00 k/uL Normal 0.0-0.2 [facility] Comment on above: Performed By: #### U HCG #### [facility] [place] [address] Pricing Intern: José Miguel Monzon DO Abs.Neutrophil (Seg) 1.86 k/uL Normal 1.3-9.1 [facility] Comment on above: Performed By: #### U HCG #### [facility] [address] [place] [address] Pricing Intern: José Miguel Monzon DO Basophils/100 WBC (Bld) 0 % Normal 0-2 [facility] Comment on above: Performed By: #### U HCG #### [facility] [place] [address] Pricing Intern: José Miguel Monzon DO Eosinophils (Bld) [#/Vol] 0.20 10*3/uL Normal 0.0-0.4 [facility] Comment on above: Performed By: #### U HCG #### [facility] [address] [place] [address] Pricing Intern: José Miguel Monzon DO Eosinophils/100 WBC (Bld) 4 % Normal 0-4 [facility] Comment on above: Performed By: #### U HCG #### [facility] [address] [place] [address] Pricing Intern: José Miguel Monzon DO Lymphocytes (Bld) [#/Vol] 2.64 10*3/uL Normal 1.0-4.8 [facility] Comment on above: Performed By: #### U HCG #### [facility] [address] [place] [address] Pricing Intern: José Miguel Monzon DO Lymphocytes/100 WBC (Bld) 54 % High 24-44 [facility] Comment on above: Performed By: #### U HCG #### [facility] [address] [place] [address] Pricing Intern: José Miguel Monzon DO Monocytes (Bld) [#/Vol] 0.20 10*3/uL Normal 0.1-1.3 [facility] Comment on above: Performed By: #### U HCG #### [facility] [place] [address] Pricing Intern: José Miguel Monzon DO Monocytes/100 WBC (Bld) 4 % Normal 1-7 [facility] Comment on above: Performed By: #### U HCG #### [facility] [address] [facility] [place] [address] Pricing Intern: José Miguel Monzon DO Morphology Dami (Bld) [Interp] Normal Normal [facility] Comment on above: Performed By: #### U HCG #### [facility] [place] [facility] [place] [address] Pricing Intern: José Miguel Monzon DO Neutrophil (Seg) 38 % Normal 36-66 [facility] Comment on above: Performed By: #### U HCG #### [facility] [place] [address] Pricing Intern: José Miguel Monzon DO Erythrocyte distribution width (RBC) [Ratio] 13.3 % Normal 11.5-14.9 [facility] Comment on above: Performed By: #### U HCG #### [facility] [address] [facility] [place] [address] Pricing Intern: José Miguel Monzon DO Hematocrit (Bld) [Volume fraction] 40.0 % Normal 36-46 [facility] Comment on above: Performed By: #### U HCG #### [facility] [address] [place] [address] Pricing Intern: José Miguel Monzon DO Hemoglobin (Bld) [Mass/Vol] 13.7 g/dL Normal 12.0-16.0 [facility] Comment on above: Performed By: #### U HCG #### [facility] [address] [place] [address] Pricing Intern: José Miguel Monzon DO MCH (RBC) [Entitic mass] 31.4 pg Normal 26-34 [facility] Comment on above: Performed By: #### U HCG #### [facility] [address] [place] [address] Pricing Intern: José Miguel Monzon DO MCHC (RBC) [Mass/Vol] 34.2 g/dL Normal 31-37 [facility] Comment on above: Performed By: #### U HCG #### [facility] [address] [place] [address] Pricing Intern: José Miguel Monzon DO MCV (RBC) [Entitic vol] 91.9 fL Normal 80-100 [facility] Comment on above: Performed By: #### U HCG #### [facility] [address] [place] [address] Pricing Intern: José Miguel Monzon DO Platelet mean volume (Bld) [Entitic vol] 10.1 fL Normal 6.0-12.0 [facility] Comment on above: Performed By: #### U HCG #### [facility] [address] [place] [address] Pricing Intern: José Miguel Monzon DO Platelets (Bld) [#/Vol] 142 10*3/uL Low 150-450 [facility] Comment on above: Performed By: #### U HCG #### [facility] [address] [place] [address] Pricing Intern: José Miguel Monzon DO RBC (Bld) [#/Vol] 4.36 10*6/uL Normal 4.0-5.2 [facility] Comment on above: Performed By: #### U HCG #### [facility] [address] [place] [address] Pricing Intern: José Miguel Monzon DO WBC (Bld) [#/Vol] 4.9 10*3/uL Normal 3.5-11.0 [facility] Comment on above: Performed By: #### U HCG #### [facility] [address] [place] [address] Pricing Intern: José Miguel Monzon DO Abs.Imm.Granulocyte NOT REPORTED Normal 0.00-0.30 [facility] Comment on above: Performed By: #### U HCG #### [facility] [address] [place] [address] Pricing Intern: José Miguel Monzon DO Auto Diff Performed NOT REPORTED Normal [facility] Comment on above: Performed By: #### U HCG #### [facility] [address] [place] [address] Pricing Intern: José Miguel Monzon DO Immature Granulocyte NOT REPORTED Normal 0 [facility] Comment on above: Performed By: #### U HCG #### [facility] [address] [place] [phone] Pricing Intern: José Miguel Monzon DO NRBC Automated NOT REPORTED Normal [facility] Comment on above: Performed By: #### U HCG #### [facility] [address] [place] [address] Pricing Intern: José Miguel Monzon DO Platelet Estimate NOT REPORTED Normal [facility] Comment on above: Performed By: #### U HCG #### [facility] [place] [address] Pricing Intern: José Miguel Monzon DO RBC morphology finding Nom (Bld) NOT REPORTED Normal [facility] Comment on above: Performed By: #### U HCG #### [facility] [address] [facility] [place] [address] Pricing Intern: José Miguel Monzon DO WBC Morphology NOT REPORTED Normal [facility] Comment on above: Performed By: #### U HCG #### [facility] [place] [address] Pricing Intern: José Miguel Monzon DO HCG, ,Urineon 07-23 Beta HCG ( test) Ql (U) Negative Normal NEG [facility] Comment on above: Result Comment: Spec imens with hCG levels near the threshold of the test (25 mIU/mL) may give a negative or indeterminate result. In such cases, another test should be performed with a new specimen in 48-72 hours. If early is suspected clinically in this setting, correlation with quantitative serum b-hCG level is suggested. Performed By: #### U HCG #### [facility] [place] [address] Pricing Intern: José Miguel Monzon DO Beta HCG ( test) Ql (U) Negative NEGATIVE [facility] [employer] [place], [place] Comment on above: Specimens with hCG l evels near the threshold of the test (25 mIU/mL) may give a negative or indeterminate result. In such cases, another test should be performed with a new specimen in 48-72 hours. If early is suspected clinically in this setting, correlation with quantitative serum b-hCG level is suggested. Otheron 07-23-2020 Immature granulocytes (Bld) [#/Vol] NOT REPORTED [facility] E[facility] 12 Leadon 07-21-2020 Atrial Rate 64 BPM [place] 54 degrees [place] P-R Interval 138 ms [place] Q-T Interval 384 ms [place] QRS Duration 92 ms [place] QTc Calculation (Bazett) 396 ms [place] 66 degrees [facility], [place] 66 degrees [facility] Ventricular Rate 64 BPM [place], [facility] Incoming Ekg Results From [facility] [place] - 07/21/2020 9:25 AM EDT Normal sinus rhythm Normal ECG No previous ECGs available [place] Normal sinus rhythm Normal ECG No previous ECGs available [place] HIV Ag/Abon 07-21-2020 HIV Ag/Ab Non-Reactive Normal NR [facility] Comment on above: Result Comment: No l aboratory evidence of HIV infection. If acute HIV infection is suspected, consider testing for HIV-1 RNA. Performed By: #### A HCV, HIVCMB #### [employer] [address] [place] [address] Pricing Intern: Bryan Cruz MD HIV Screenon 07-21-2020 HIV Ag/Ab NONREACTIVE NONREACTIVE [place] Comment on above: No laboratory eviden ce of HIV infection. If acute HIV infection is suspected, consider testing for HIV-1 RNA. T.pallidum Ab Screenon 07-21 T.pallidum Ab Screen Non-Reactive Normal NR [facility] Comment on above: Result Comment: T. pallidum antibodies are not detected. There is no serological evidence of infection with T. pallidum (early primary syphilis cannot be excluded). Retest in 2-4 weeks if syphilis is clinically suspect. Performed By: #### A HCV, HIVCMB #### [employer] [address] [place] [address] Pricing Intern: Bryan Cruz MD T. pallidum, IgG NONREACTIVE NONREACTIVE [place] Comment on above: T. pallidum antibodies are not detected. There is no serological evidence of infection with T. pallidum (early primary syphilis cannot be excluded). Retest in 2-4 weeks if syphilis is clinically suspect. Valproic Acidon 07-21-2020 Date last dose, [id number] [facility] Comment on above: Performed By: #### A HCV, HIVCMB #### [facility] [address] [place] [address] Pricing Intern: Bryan Cruz MD Dose amount 1000 MG Normal [facility] Comment on above: Performed By: #### A HCV, HIVCMB #### [facility] [employer] [address] [place] [address] Pricing Intern: Bryan Cruz MD Time last dose, [address] [facility] Comment on above: Performed By: #### A HCV HIVCMB #### [facility] [employer] [address] [place] [address] Pricing Intern: Bryan Cruz MD Valproic Acid 95 ug/mL Normal 50-125 [facility] Comment on above: Performed By: #### A HCV, HIVCMB #### [facility] [employer] [address] [place] [address] Pricing Intern: Bryan Cruz MD Valproic Acid Lvl 95 ug/mL 50 - 125 ug/mL [place] Valproic Date last dose [id number] [place] Valproic Dose amount 1000 MG [place] Valproic Time last dose 2040 [place] CBC with Diffon 07-20-2020 Abs. Basophil 0.00 k/uL Normal 0.0-0.2 [facility] Comment on above: Performed By: #### A HCV, HIVCMB #### [facility] [employer] [address] [place] [address] Pricing Intern: Bryan Cruz MD Abs.Neutrophil (Seg) 1.80 k/uL Normal 1.3-9.1 [facility] Comment on above: Performed By: #### A HCV, HIVCMB #### [address] [address] Pricing Intern: Bryan Cruz MD Basophils/100 WBC (Bld) 0 % Normal 0-2 [facility] Comment on above: Performed By: #### A HCV, HIVCMB #### [address] [address] Pricing Intern: Bryan Cruz MD Eosinophils (Bld) [#/Vol] 0.04 10*3/uL Normal 0.0-0.4 [facility] Comment on above: Performed By: #### A HCV, HIVCMB #### [address] [address] Pricing Intern: Bryan Cruz MD Eosinophils/100 WBC (Bld) 1 % Normal 0-4 [facility] Comment on above: Performed By: #### A HCV, HIVCMB #### [address] [address] Pricing Intern: Bryan Cruz MD Lymphocytes (Bld) [#/Vol] 1.92 10*3/uL Normal 1.0-4.8 [facility] Comment on above: Performed By: #### A HCV, HIVCMB #### [address] [address] Pricing Intern: Bryan Cruz MD Lymphocytes/100 WBC (Bld) 48 % High 24-44 [facility] Comment on above: Performed By: #### A HCV, HIVCMB #### [address] [address] Pricing Intern: Bryan Cruz MD Monocytes (Bld) [#/Vol] 0.24 10*3/uL Normal 0.1-1.3 [facility] Comment on above: Performed By: #### A HCV, HIVCMB #### [address] [address] Pricing Intern: Bryan Cruz MD Monocytes/100 WBC (Bld) 6 % Normal 1-7 [facility] Comment on above: Performed By: #### A HCV, HIVCMB #### [address] [address] Pricing Intern: Bryan Cruz MD Morphology Dami (Bld) [Interp] Normal Normal [facility] Comment on above: Performed By: #### A HCV, HIVCMB #### [address] [address] Pricing Intern: Bryan Cruz MD Neutrophil (Seg) 45 % Normal 36-66 [facility] Comment on above: Performed By: #### A HCV, HIVCMB #### [address] [address] Pricing Intern: Bryan Cruz MD Erythrocyte distribution width (RBC) [Ratio] 13.6 % Normal 11.5-14.9 [facility] Comment on above: Performed By: #### A HCV, HIVCMB #### [address] [address] Pricing Intern: Bryan Cruz MD Hematocrit (Bld) [Volume fraction] 41.6 % Normal 36-46 [facility] Comment on above: Performed By: #### A HCV, HIVCMB #### [address] [address] Pricing Intern: Bryan Cruz MD Hemoglobin (Bld) [Mass/Vol] 13.9 g/dL Normal 12.0-16.0 [facility] Comment on above: Performed By: #### A HCV, HIVCMB #### [address] [address] Pricing Intern: Bryan Cruz MD MCH (RBC) [Entitic mass] 31.5 pg Normal 26-34 [facility] Comment on above: Performed By: #### A HCV, HIVCMB #### [address] [address] Pricing Intern: Bryan Cruz MD MCHC (RBC) [Mass/Vol] 33.5 g/dL Normal 31-37 [facility] Comment on above: Performed By: #### A HCV, HIVCMB #### [address] [address] Pricing Intern: Bryan Cruz MD MCV (RBC) [Entitic vol] 94.1 fL Normal 80-100 [facility] Comment on above: Performed By: #### A HCV, HIVCMB #### [address] [address] Pricing Intern: Bryan Cruz MD Platelet mean volume (Bld) [Entitic vol] 9.0 fL Normal 6.0-12.0 [facility] Comment on above: Performed By: #### A HCV, HIVCMB #### [address] [address] Pricing Intern: Bryan Cruz MD Platelets (Bld) [#/Vol] 159 10*3/uL Normal 150-450 [facility] Comment on above: Performed By: #### A HCV, HIVCMB #### [address] [address] Pricing Intern: Bryan rCuz MD RBC (Bld) [#/Vol] 4.42 10*6/uL Normal 4.0-5.2 [facility] Comment on above: Performed By: #### A HCV, HIVCMB #### [address] [address] Pricing Intern: Bryan Cruz MD WBC (Bld) [#/Vol] 4.0 10*3/uL Normal 3.5-11.0 [facility] Comment on above: Performed By: #### A HCV, HIVCMB #### [address] [address] Pricing Intern: Bryan Cruz MD Abs.Imm.Granulocyte NOT REPORTED Normal 0.00-0.30 [facility] Comment on above: Performed By: #### A HCV, HIVCMB #### [address] [address] Pricing Intern: Bryan Cruz MD Auto Diff Performed NOT REPORTED Normal [facility] Comment on above: Performed By: #### A HCV, HIVCMB #### [address] [address] Pricing Intern: Bryan Cruz MD Immature Granulocyte NOT REPORTED Normal 0 [facility] Comment on above: Performed By: #### A HCV, HIVCMB #### [address] [address] Pricing Intern: Bryan Cruz MD NRBC Automated NOT REPORTED Normal [facility] Comment on above: Performed By: #### A HCV, HIVCMB #### [address] [address] Pricing Intern: Bryan Cruz MD Platelet Estimate NOT REPORTED Normal [facility] Comment on above: Performed By: #### A HCV, HIVCMB #### [address] [address] Pricing Intern: Bryan Cruz MD RBC morphology finding Nom (Bld) NOT REPORTED Normal [facility] Comment on above: Performed By: #### A HCV, HIVCMB #### [address] [address] Pricing Intern: Bryan Cruz MD WBC Morphology NOT REPORTED Normal [facility] Comment on above: Performed By: #### A HCV, HIVCMB #### [address] [address] Pricing Intern: Bryan Cruz MD Comp Metabolic Profon 2019 (cont.) Normal [facility] Comment on above: Result Comment: Aver age GFR for 30-39 years old: 107 mL/min/1.73sq m Chronic Kidney Disease: <60 mL/min/1.73sq m Kidney failure: <15 mL/min/1.73sq m eGFR calculated using average adult body mass. Additional eGFR calculator available at: http://www.[employer]/multiple_crcl_2011.htm Performed By: #### A HCV, HIVCMB #### [address] [address] Pricing Intern: Bryan Cruz MD Albumin [Mass/Vol] 3.7 g/dL Normal 3.5-5.2 [facility] Comment on above: Performed By: #### A HCV, HIVCMB #### [address] [address] Pricing Intern: Bryan Cruz MD Alkaline Phos 42 U/L Normal 35-104 [facility] Comment on above: Performed By: #### A HCV, HIVCMB #### [address] [address] Pricing Intern: Bryan Cruz MD ALT [Catalytic activity/Vol] 9 U/L Normal 5-33 [facility] Comment on above: Performed By: #### A HCV, HIVCMB #### [address] [address] Pricing Intern: Bryan Cruz MD Anion gap [Moles/Vol] 10 mmol/L Normal 9-17 [facility] Comment on above: Performed By: #### A HCV, HIVCMB #### [address] [address] Pricing Intern: Bryan Cruz MD AST [Catalytic activity/Vol] 11 U/L Normal <32 [facility] Comment on above: Performed By: #### A HCV, HIVCMB #### [address] [place] [address] Pricing Intern: Bryan Cruz MD Bilirubin [Mass/Vol] 0.23 mg/dL Low 0.3-1.2 [facility] Comment on above: Performed By: #### A HCV, HIVCMB #### [address] [address] Pricing Intern: Bryan Cruz MD Calcium [Mass/Vol] 9.3 mg/dL Normal 8.6-10.4 [facility] Comment on above: Performed By: #### A HCV, HIVCMB #### [address] [address] Pricing Intern: Bryan Cruz MD Chloride [Moles/Vol] 105 mmol/L Normal 98-107 [facility] Comment on above: Performed By: #### A HCV, HIVCMB #### [address] [address] Pricing Intern: Bryan Cruz MD CO2 [Moles/Vol] 24 mmol/L Normal 20-31 [facility] Comment on above: Performed By: #### A HCV, HIVCMB #### [address] [address] Pricing Intern: Bryan Cruz MD Creatinine [Mass/Vol] 0.53 mg/dL Normal 0.50-0.90 [facility] Comment on above: Performed By: #### A HCV, HIVCMB #### [address] [address] Pricing Intern: Bryan Cruz MD GFR, Amer >60 Normal >60 [facility] Comment on above: Performed By: #### A HCV, HIVCMB #### [address] [address] Pricing Intern: Bryan Cruz MD GFR,non Amer >60 Normal >60 [facility] Comment on above: Performed By: #### A HCV, HIVCMB #### [address] [address] Pricing Intern: Bryan Cruz MD Glucose [Mass/Vol] 88 mg/dL Normal 70-99 [facility] Comment on above: Performed By: #### A HCV, HIVCMB #### [address] [address] Pricing Intern: Bryan Cruz MD Potassium [Moles/Vol] 4.6 mmol/L Normal 3.7-5.3 [facility] Comment on above: Performed By: #### A HCV, HIVCMB #### [address] [address] Pricing Intern: Bryan Cruz MD Protein [Mass/Vol] 6.4 g/dL Normal 6.4-8.3 [facility] Comment on above: Performed By: #### A HCV, HIVCMB #### [address] [address] Pricing Intern: Bryan Cruz MD Sodium [Moles/Vol] 139 mmol/L Normal 135-144 [facility] Comment on above: Performed By: #### A HCV, HIVCMB #### [address] [address] Pricing Intern: Bryan Cruz MD Urea nitrogen [Mass/Vol] 17 mg/dL Normal 6-20 [facility] Comment on above: Performed By: #### A HCV, HIVCMB #### [address] [address] Pricing Intern: Bryan Cruz MD Albumin/Glob Ratio NOT REPORTED Normal 1.0-2.5 [facility] Comment on above: Performed By: #### A HCV, HIVCMB #### [address] [address] Pricing Intern: Bryan Cruz MD BUN/CRE Ratio NOT REPORTED Normal 9-20 [facility] Comment on above: Performed By: #### A HCV, HIVCMB #### [facility] [address] [place], [place] [address] Pricing Intern: Bryan Cruz MD Staging: NOT REPORTED Normal [facility] Comment on above: Performed By: #### A HCV, HIVCMB #### [facility] [address] [place], [place] [phone] Pricing Intern: Bryan Cruz MD Albumin [Mass/Vol] 3.7 g/dL 3.5 - 5.2 g/dL [place] Albumin/Globulin [Mass ratio] NOT REPORTED [place] ALP [Catalytic activity/Vol] 42 U/L 35 - 104 U/L [place] ALT [Catalytic activity/Vol] 9 U/L 5 - 33 U/L [place] Anion gap [Moles/Vol] 10 mmol/L 9 - 17 mmol/L [place] AST [Catalytic activity/Vol] 11 U/L <32 [place] Bilirubin Ql (U) 0.23 mg/dL Low 0.3 - 1.2 mg/dL [place] Bun/Cre Ratio NOT REPORTED [place] Calcium [Mass/Vol] 9.3 mg/dL 8.6 - 10. 4 mg/dL [place] Chloride [Moles/Vol] 105 mmol/L 98 - 10 7 mmol/L [place] CO2 [Moles/Vol] 24 mmol/L 20 - 31 mmol/L [place] Creatinine [Mass/Vol] 0.53 mg/dL 0.5 - 0.9 mg/dL [place] GFR >60 >60 mL/min [place] GFR Non- >60 >60 mL/min [place] GFR/1.73 sq M predicted among non-blacks MDRD (S/P/Bld) [Vol rate/Area] NOT REPORTED [place] GFR/1.73 sq M predicted among non-blacks MDRD (S/P/Bld) [Vol rate/Area] [place] Comment on above: Average GFR for 30-3 9 years old: 107 mL/min/1.73sq m Chronic Kidney Disease: <60 mL/min/1.73sq m Kidney failure: <15 mL/min/1.73sq m eGFR calculated using average adult body mass. Additional eGFR calculator available at: http://www.[employer]/multiple_crcl_2012.htm Glucose [Mass/Vol] 88 mg/dL 70 - 99 mg/dL [place] Interpretation and review of laboratory results Abnormal [place] Potassium [Moles/Vol] 4.6 mmol/L 3.7 - 5.3 mmol/L [place] Protein [Mass/Vol] 6.4 g/dL 6.4 - 8.3 g/dL [place] Sodium [Moles/Vol] 139 mmol/L 135 - 144 mmol/L [place] Urea nitrogen [Mass/Vol] 17 mg/dL 6 - 20 mg/dL [place] Hep C Abon 07-20-2020 Hep C Ab Reactive Abnormal NR [facility] Comment on above: Result Comment: The [...] Performed By: #### A HCV, HIVCMB #### [place] [address] [place] [address] Pricing Intern: Bryan Cruz MD Hepatitis C Ab REACTIVE Abnormal NONREACTIVE [place] Comment on above: The hepatitis C [...] Interpretation and review of laboratory results Abnormal [place] TSH w/reflex to FT4on 2019 TSH Qn 3.88 m[IU]/L Normal 0.30-5.00 [facility] Comment on above: Performed By: #### A HCV, HIVCMB #### [address] [place], [place] [address] Pricing Intern: Bryan Cruz MD TSH Qn 3.88 m[IU]/L [place] Cult,Urineon 05-09-2019 Cult,Urine Specimen Description .CLEAN CATCH URINE Special Requests NOT REPORTED Culture STREPTOCOCCI, BETA HEMOLYTIC GROUP B <[id number] CFU/ML Report Status FINAL 05/09/2019 Normal [facility] Comment on above: Performed By: #### U RC #### [address] [id number] Pricing Intern: Bryan Cruz MD [address] [place] [address] Pricing Intern: Reji Brown MD CBC with Diffon 05-08-2019 Abs. Basophil 0.03 k/uL Normal 0.00-0.[address] [facility] Comment on above: Performed By: #### C MPX, CDP, LIP, HCG #### [address] [place] [address] Pricing Intern: Reji Brown MD Abs.Imm.Granulocyte <0.03 Normal 0.00-0.30 [facility] Comment on above: Performed By: #### C MPX, CDP, LIP, HCG #### [address] [place] [address] Pricing Intern: Reji Brown MD Abs.Neutrophil (Seg) 2.35 k/uL Normal 1.50-8.10 [facility] Comment on above: Performed By: #### C MPX, CDP, LIP, HCG #### [place] [address] [place] [address] Pricing Intern: Reji Brown MD Basophils/100 WBC (Bld) 1 % Normal 0-2 [facility] Comment on above: Performed By: #### C MPX, CDP, LIP, HCG #### [address] [place], [facility] Pricing Intern: Reji Brown MD Eosinophils (Bld) [#/Vol] 0.20 10*3/uL Normal 0.00-0.44 [facility] Comment on above: Performed By: #### C MPX, CDP, LIP, HCG #### [address] [place], [facility] Pricing Intern: Reji Brown MD Eosinophils/100 WBC (Bld) 4 % Normal 1-4 [facility] Comment on above: Performed By: #### C MPX, CDP, LIP, HCG #### [address] [place], [facility] Pricing Intern: Reji Brown MD Erythrocyte distribution width (RBC) [Ratio] 14.2 % Normal 11.8-14.4 [facility] Comment on above: Performed By: #### C MPX, CDP, LIP, HCG #### [address] [place], [facility] Pricing Intern: Reji Brown MD Hematocrit (Bld) [Volume fraction] 34.3 % Low 36.3-47.1 [facility] Comment on above: Performed By: #### C MPX, CDP, LIP, HCG #### [address] [place] [address] Pricing Intern: Reji Brown MD Hemoglobin (Bld) [Mass/Vol] 11.2 g/dL Low 11.9-15.1 [facility] Comment on above: Performed By: #### C MPX, CDP, LIP, HCG #### [address] [place], [place] [id number] Pricing Intern: Reji Brown MD Immature granulocytes (Bld) [#/Vol] 0 % Normal 0 [facility] Comment on above: Performed By: #### C MPX, CDP, LIP, HCG #### [facility] [address] [place], [place] [id number] Pricing Intern: Reji Brown MD Lymphocytes (Bld) [#/Vol] 2.75 10*3/uL Normal 1.10-3.70 [facility] Comment on above: Performed By: #### C MPX, CDP, LIP, HCG #### [facility] [address] [place], [place] [id number] Pricing Intern: Reji Brown MD Lymphocytes/100 WBC (Bld) 46 % High 24-43 [facility] Comment on above: Performed By: #### C MPX, CDP, LIP, HCG #### [address] [place], [facility] Pricing Intern: Reji Brown MD MCH (RBC) [Entitic mass] 30.7 pg Normal 25.2-33.5 [facility] Comment on above: Performed By: #### C MPX, CDP, LIP, HCG #### [address] [place], [facility]83 Pricing Intern: Reji Brown MD MCHC (RBC) [Mass/Vol] 32.7 g/dL Normal 28.4-34.8 [facility] Comment on above: Performed By: #### C MPX, CDP, LIP, HCG #### [address] [place], [place] [id number] Pricing Intern: Reji Brown MD MCV (RBC) [Entitic vol] 94.0 fL Normal 82.6-102.9 [facility] Comment on above: Performed By: #### C MPX, CDP, LIP, HCG #### [address] [place], [place] [id number] Pricing Intern: Reji Brown MD Monocytes (Bld) [#/Vol] 0.43 10*3/uL Normal 0.10-1.20 [facility] Comment on above: Performed By: #### C MPX, CDP, LIP, HCG #### [facility] [address] [place], [place] [id number] Pricing Intern: Reji Brown MD Monocytes/100 WBC (Bld) 8 % Normal 3-12 [facility] Comment on above: Performed By: #### C MPX, CDP, LIP, HCG #### [facility] [address] [place], [facility] Pricing Intern: Reji Brown MD Neutrophil (Seg) 41 % Normal 36-65 [facility] Comment on above: Performed By: #### C MPX, CDP, LIP, HCG #### [facility] [address] [place], [facility] Pricing Intern: Reji Brown MD NRBC Automated 0.0 per 100 WBC Normal 0.0 [facility] Comment on above: Performed By: #### C MPX, CDP, LIP, HCG #### [facility] [address] [place], [facility] Pricing Intern: Reji Brown MD Platelet mean volume (Bld) [Entitic vol] 10.5 fL Normal 8.1-13.5 [facility] Comment on above: Performed By: #### C MPX, CDP, LIP, HCG #### [facility] [address] [place], [facility] Pricing Intern: Reji Brown MD Platelets (Bld) [#/Vol] 219 10*3/uL Normal 138-453 [facility] Comment on above: Performed By: #### C MPX, CDP, LIP, HCG #### [facility] [address] [place] [id number] Pricing Intern: Reji Brown MD RBC (Bld) [#/Vol] 3.65 10*6/uL Low 3.95-5.11 [facility] Comment on above: Performed By: #### C MPX, CDP, LIP, HCG #### [facility] [address] [place] [id number] Pricing Intern: Reji Brown MD WBC (Bld) [#/Vol] 5.8 10*3/uL Normal 3.5-11.3 [facility] Comment on above: Performed By: #### C MPX, CDP, LIP, HCG #### [address] [place] [address] Pricing Intern: Reji Brown MD Auto Diff Performed NOT REPORTED Normal [facility] Comment on above: Performed By: #### C MPX, CDP, LIP, HCG #### [address] [place] [address] Pricing Intern: Reji Brown MD Platelets (Bld) [#/Vol] NOT REPORTED Normal [facility] Comment on above: Performed By: #### C MPX, CDP, LIP, HCG #### [address] [place], [facility] Pricing Intern: Reji Brown MD RBC morphology finding Nom (Bld) NOT REPORTED Normal [facility] Comment on above: Performed By: #### C MPX, CDP, LIP, HCG #### [facility] [address] [place], [facility] Pricing Intern: Reji Brown MD WBC Morphology NOT REPORTED Normal [facility] Comment on above: Performed By: #### C MPX, CDP, LIP, HCG #### [facility] [address] [place], [place] [id number] Pricing Intern: Reji Brown MD Comp Metabolic Pr/rfx MGon 0 7-28-2019 Bilirubin Ql (U) <0.10 Low 0.3-1.2 [facility] Comment on above: Performed By: #### C MPX, CDP, LIP, HCG #### [facility] [address] [place] [address] Pricing Intern: Reji Brown MD (cont.) [facility] [place] Comment on above: Result Comment: Aver age GFR for 30-39 years old: 107 mL/min/1.73sq m Chronic Kidney Disease: <60 mL/min/1.73sq m Kidney failure: <15 mL/min/1.73sq m eGFR calculated using average adult body mass. Additional eGFR calculator available at: http://[email or web address]/multiple_crcl_2011.htm Performed By: #### C MPX, CDP, LIP, HCG #### [facility] [address] [place] [address] Pricing Intern: Reji Brown MD Albumin [Mass/Vol] 4.0 g/dL Normal 3.5-5.2 [facility] Comment on above: Performed By: #### C MPX, CDP, LIP, HCG #### [facility] [address] [place] [address] Pricing Intern: Reji Brown MD Albumin/Globulin [Mass ratio] 1.5 {ratio} Normal 1.0-2.5 [facility] Comment on above: Performed By: #### C MPX, CDP, LIP, HCG #### [facility] [address] [place] [address] Pricing Intern: Reji Brown MD Alkaline Phos 53 U/L Normal 35-[address] [facility] Comment on above: Performed By: #### C MPX, CDP, LIP, HCG #### [facility] [address] [place] [address] Pricing Intern: Reji Brown MD ALT [Catalytic activity/Vol] 11 U/L Normal 5-33 [facility] Comment on above: Performed By: #### C MPX, CDP, LIP, HCG #### [facility] [address] [place], [place] [id number] Pricing Intern: Reji Brown MD Anion gap [Moles/Vol] 9 mmol/L Normal 9-17 [facility] Comment on above: Performed By: #### C MPX, CDP, LIP, HCG #### [facility] [address] [place], [place] [id number] Pricing Intern: Reji Brown MD AST [Catalytic activity/Vol] 16 U/L Normal <32 [facility] Comment on above: Performed By: #### C MPX, CDP, LIP, HCG #### [facility] [address] [place], [place] [id number] Pricing Intern: Reji Brown MD BUN/CRE Ratio 19 Normal 9-[address] [facility] Comment on above: Performed By: #### C MPX, CDP, LIP, HCG #### [facility] [address] [place], [place] [address]38683 Pricing Intern: Reji Brown MD Calcium [Mass/Vol] 9.7 mg/dL Normal 8.6-10.4 [facility] Comment on above: Performed By: #### C MPX, CDP, LIP, HCG #### [facility] [address] [place], [place] [id number] Pricing Intern: Reji Brown MD Chloride [Moles/Vol] 102 mmol/L Normal 98-107 [facility] Comment on above: Performed By: #### C MPX, CDP, LIP, HCG #### [facility] [address] [place], [place] [address]97[address]83 Pricing Intern: Reji Brown MD CO2 [Moles/Vol] 31 mmol/L Normal 20-31 [facility] Comment on above: Performed By: #### C MPX, CDP, LIP, HCG #### [facility] [address] [place], [place] [id number] Pricing Intern: Reji Brown MD Creatinine [Mass/Vol] 0.79 mg/dL Normal 0.50-0.90 [facility] Comment on above: Performed By: #### C MPX, CDP, LIP, HCG #### [facility] [address] [place], [place] [id number] Pricing Intern: Reji Brown MD GFR, Amer >60 Normal >60 [facility] Comment on above: Performed By: #### C MPX, CDP, LIP, HCG #### [facility] [address] [place], [place] 299[address]83 Pricing Intern: Reji Brown MD GFR,non Amer >60 Normal >60 [facility] Comment on above: Performed By: #### C MPX, CDP, LIP, HCG #### [facility] [address] [place], [place] 3765783 Pricing Intern: Reji Brown MD Glucose [Mass/Vol] 102 mg/dL High 70-99 [facility] Comment on above: Performed By: #### C MPX, CDP, LIP, HCG #### [facility] [address] [place], [place] 6205483 Pricing Intern: Reji Brown MD Potassium [Moles/Vol] 4.5 mmol/L Normal 3.7-5.3 [facility] Comment on above: Performed By: #### C MPX, CDP, LIP, HCG #### [facility] [address] [place], [place] [address]83 Pricing Intern: Reji Brown MD Protein [Mass/Vol] 6.7 g/dL Normal 6.4-8.3 [facility] Comment on above: Performed By: #### C MPX, CDP, LIP, HCG #### [facility] [address] [place], [place] 9[address]83 Pricing Intern: Reji Brown MD Sodium [Moles/Vol] 142 mmol/L Normal 135-144 [facility] Comment on above: Performed By: #### C MPX, CDP, LIP, HCG #### [facility] [address] [place] [address] Pricing Intern: Reji Brown MD Staging: Normal [facility] Comment on above: Result Comment: Stag e 1: Some kidney damage normal GFR Stage 2: Mild kidney damage GFR 60-89 Stage 3: Moderate kidney damage GFR 30-59 Stage 4: Severe kidney damage GFR 15-29 Stage 5: Severe kidney damage GFR <15 ESRD - chronic treatment by dialysis or transplant Performed By: #### C MPX, CDP, LIP, HCG #### [facility] [address] [place] [address] Pricing Intern: Reji Brown MD Urea nitrogen [Mass/Vol] 15 mg/dL Normal 6-20 [facility] Comment on above: Performed By: #### C MPX, CDP, LIP, HCG #### [facility] [address] [place] [address] Pricing Intern: Reji Brown MD HCG Screen, Bloodon 05-08-20 19 HCG Qn Negative Normal NEG [facility] Comment on above: Result Comment: Spec imens with hCG levels near the threshold of the test (25 mIU/mL) may give a negative or indeterminate result. In such cases, another test should be performed with a new specimen in 48-72 hours. If early is suspected clinically in this setting, correlation with quantitative serum b-hCG level is suggested. [facility] has confirmed the use of plasma for this test. This has not been cleared or approved by the U.S. Food and Drug Administration. The FDA has determined that such clearance is not necessary. Performed By: #### C MPX, CDP, LIP, HCG #### [facility] [address] [place] [address] Pricing Intern: Reji Brown MD Lipaseon 05-08-2019 Lipase [Catalytic activity/Vol] 13 U/L Normal 13-60 [facility] Comment on above: Performed By: #### C MPX, CDP, LIP, HCG #### [facility] [address] [place], [place] 2437483 Pricing Intern: Reji Brown MD Urinalysis, Routineon 2018 Acetoacetic Acid,Ur Negative Normal [facility] Comment on above: Performed By: #### U MICAO, UA #### [facility] [address] [place], [place] 297[address]83 Pricing Intern: Reji Brown MD Bilirubin, SemiQt,Ur Negative Normal NEG [facility] Comment on above: Performed By: #### U MICAO, UA #### [facility] [address] [place], [place] [id number] Pricing Intern: Reji Brown MD Color (U) YELLOW Normal YEL [facility] Comment on above: Performed By: #### U MICAO, UA #### [facility] [address] [place], [place] [id number] Pricing Intern: Reji Brown MD Glucose Ql (U) Negative Normal [facility] Comment on above: Performed By: #### U MICAO, UA #### [facility] [address] [place], [place] [address]60[address]83 Pricing Intern: Reji Brown MD Hemoglobin, Ur Negative Normal NEG [facility] Comment on above: Performed By: #### U MICAO, UA #### [facility] [address] [place], [place] 599[address]83 Pricing Intern: Reji Brown MD Leukocyte esterase Test strip Ql (U) Negative Normal [facility] Comment on above: Performed By: #### U MICAO, UA #### [facility] [address] [place], [place] 4392383 Pricing Intern: Reji Brown MD Nitrite,Ur Negative Normal [facility] Comment on above: Performed By: #### U MICAO, UA #### [facility] [address] [place], [place] 39[address]83 Pricing Intern: Reji Brown MD pH (U) 7.5 [pH] Normal 5.0-9.0 [facility] Comment on above: Performed By: #### U MICAO, UA #### [facility] [address] [place], [place] [phone] Pricing Intern: Reji Brown MD Protein Ql (U) Negative Normal NEG [facility] Comment on above: Performed By: #### U MICAO, UA #### [facility] [address] [place], [place] 2014483 Pricing Intern: Reji Brown MD Specific gravity (U) [Rel density] 1.015 Normal 1.010-1.020 [facility] Comment on above: Performed By: #### U MICAO, UA #### [facility] [address] [place], [place] 3444683 Pricing Intern: Reji Brown MD Turbidity CLOUDY Abnormal CLEAR [facility] Comment on above: Performed By: #### U MICAO, UA #### [facility] [address] [place], [place] 706[address]83 Pricing Intern: Reji Brown MD Urobilinogen,Ur Normal Normal NORM [facility] Comment on above: Performed By: #### U MICAO, UA #### [facility] [address] [place], [place] 6406283 Pricing Intern: Reji Brown MD Comment NOT REPORTED Normal [facility] Comment on above: Performed By: #### U MICAO, UA #### [facility] [address] [place], [place] 8612183 Pricing Intern: Reji Brown MD Urinalysis,Microon 9 ----- Normal [facility] Comment on above: Performed By: #### U MICAO, UA #### [facility] [address] [place], [place] 4033683 Pricing Intern: Reji Brown MD Amorphous sediment LM Ql (Urine sed) 4+ Abnormal [facility] Comment on above: Performed By: #### U MICAO, UA #### [facility] [address] [place], [place] 5389[address] Pricing Intern: Reji Brown MD Epithelial cells LM.HPF (Urine sed) [#/Area] 5 TO 10 Normal 0-[address] [facility] Comment on above: Performed By: #### U MICAO, UA #### [address] [place], [place] [address] Pricing Intern: Reji Brown MD RBC (U) [#/Vol] None Normal 0-2 [facility] Comment on above: Performed By: #### U MICAO, UA #### [address] [place], [place] 358[address] Pricing Intern: Reji Brown MD WBC (U) [#/Vol] None Normal 0-5 [facility] Comment on above: Performed By: #### U MICAO, UA #### [address] [place], [place] [address] Pricing Intern: Reji Brown MD Bacteria LM.HPF (Urine sed) [#/Area] NOT REPORTED Normal [facility] Comment on above: Performed By: #### U MICAO, UA #### [address] [place], [place] [address]237[address] Pricing Intern: Reji Brown MD Casts LM.LPF (Urine sed) [#/Area] NOT REPORTED Normal [facility] Comment on above: Performed By: #### U MICAO, UA #### [address] [place], [place] [phone] Pricing Intern: Reji Brown MD Crystals LM Nom (Urine sed) NOT REPORTED Normal [facility] Comment on above: Performed By: #### U MICAO, UA #### [facility] [address] [place], [facility] Pricing Intern: Reji Brown MD Epithelial, Renal NOT REPORTED Normal 0 [facility] Comment on above: Performed By: #### U MICAO, UA #### [facility] [address] [place] [id number] Pricing Intern: Reji Brown MD Mucus Strands NOT REPORTED Normal NONE [facility] Comment on above: Performed By: #### U MICAO, UA #### [facility] [address] [place] [id number] Pricing Intern: Reji Brown MD Other Observations NOT REPORTED Normal NREQ [facility] Comment on above: Performed By: #### U MICAO, UA #### [facility] [address] [place] [id number] Pricing Intern: Reji Brown MD Trichomonas NOT REPORTED Normal NONE [facility] Comment on above: Performed By: #### U MICAO, UA #### [facility] [address] [place] [id number] Pricing Intern: Reji Brown MD Yeast LM Ql (Urine sed) NOT REPORTED Normal [facility] Comment on above: Performed By: #### U MICAO, UA #### [facility] [address] [place] [id number] Pricing Intern: Reji Brown MD XR ACUTE ABD SERIES [...] Cleve Velazquez MD 05/08/19 Final result Normal [facility] Vital Signs Date Time Vital Sign Value Performing Clinician Facility 10-21-2023 07:30-0500 Body temperature 97.4 [degF] OUTREACH PROFESSIONAL Cris Robronaldo Work Phone: [facility] 10-21-2023 07:30-0500 Diastolic blood pressure 67 mm[Hg] OUTREACH PROFESSIONAL Cris Robuck Work Phone: [facility] 10-21-2023 07:30-0500 Heart rate 81 /min OUTREACH PROFESSIONAL Cris Robuck Work Phone: [facility] 10-21-2023 07:30-0500 SaO2% (BldA) [Mass fraction] 99 % OUTREACH PROFESSIONAL Cris Robuck Work Phone: [facility] 10-21-2023 07:30-0500 Systolic blood pressure 102 mm[Hg] OUTREACH PROFESSIONAL Cris Robuck Work Phone: [facility] 10-20-2023 21:59-0500 Respiratory rate 16 /min OUTREACH PROFESSIONAL Cris Robuck Work Phone: [facility] 10-19-2023 09:00-0500 Body weight 69 kg OUTREACH PROFESSIONAL Cris Robuck Work Phone: [facility] 10-16-2023 08:34-0500 Body height 167.64 cm OUTREACH PROFESSIONAL Cris Robuck Work Phone: [facility] 10-09-2023 01:00-0500 Diastolic blood pressure 58 mm[Hg] [facility] 10-09-2023 01:00-0500 Heart rate 68 /min [facility] 10-09-2023 01:00-0500 Respiratory rate 16 /min [facility] 10-09-2023 01:00-0500 SaO2% (BldA) [Mass fraction] 93 % [facility] 10-09-2023 01:00-0500 Systolic blood pressure 102 mm[Hg] [facility] 10-08-2023 20:56-0500 Body height 167.64 cm [facility] 10-08-2023 20:56-0500 Body temperature 98.6 [degF] [facility] 10-08-2023 20:56-0500 Body weight 70 kg [facility] 09-14-2023 18:27-0500 Body height 167.64 cm OUTREACH PROFESSIONAL Cris Robuck Work Phone: [facility] 09-14-2023 18:27-0500 Body temperature 98.1 [degF] OUTREACH PROFESSIONAL Cris Robuck Work Phone: [facility] 09-14-2023 18:27-0500 Body weight 73 kg OUTREACH PROFESSIONAL Cris Robuck Work Phone: [facility] 09-14-2023 18:27-0500 Diastolic blood pressure 80 mm[Hg] OUTREACH PROFESSIONAL Cris Robuck Work Phone: [facility] 09-14-2023 18:27-0500 Heart rate 97 /min OUTREACH PROFESSIONAL Cris Robuck Work Phone: [facility] 09-14-2023 18:27-0500 Respiratory rate 16 /min OUTREACH PROFESSIONAL Cris Robuck Work Phone: [facility] 09-14-2023 18:27-0500 SaO2% (BldA) [Mass fraction] 98 % OUTREACH PROFESSIONAL Cris Robuck Work Phone: [facility] 09-14-2023 18:27-0500 Systolic blood pressure 128 mm[Hg] OUTREACH PROFESSIONAL Cris Robuck Work Phone: [facility] 07-13-2023 09:00-0400 Body weight 79.28 kg [facility] 07-13-2023 07:30-0400 Body temperature 98.4 [degF] [facility] 07-13-2023 07:30-0400 Diastolic blood pressure 72 mm[Hg] [facility] 07-13-2023 07:30-0400 Heart rate 98 /min [facility] 07-13-2023 07:30-0400 Respiratory rate 20 /min [facility] 07-13-2023 07:30-0400 SaO2% (BldA) [Mass fraction] 95 % [facility] 07-13-2023 07:30-0400 Systolic blood pressure 105 mm[Hg] [facility] 07-08-2023 14:36-0400 Body height 165.1 cm [facility] 06-08-2023 08:18-0400 Body height 165.1 cm [facility] 06-08-2023 08:18-0400 Body temperature 97.7 [degF] [facility] 06-08-2023 08:18-0400 Body weight 67.58 kg [facility] 06-08-2023 08:18-0400 Diastolic blood pressure 55 mm[Hg] [facility] 06-08-2023 08:18-0400 Heart rate 68 /min [facility] 06-08-2023 08:18-0400 Respiratory rate 18 /min [facility] 06-08-2023 08:18-0400 SaO2% (BldA) [Mass fraction] 98 % [facility] 06-08-2023 08:18-0400 Systolic blood pressure 120 mm[Hg] [facility] 04-19-2023 19:09-0400 Body height 165.1 cm OUTREACH PROFESSIONAL Cris Solisuck Work Phone: [facility] 04-19-2023 19:09-0400 Body temperature 97.6 [degF] OUTREACH PROFESSIONAL Cris Robuck Work Phone: [facility] 04-19-2023 19:09-0400 Body weight 66.55 kg OUTREACH PROFESSIONAL Cris Robuck Work Phone: [facility] 04-19-2023 19:09-0400 Diastolic blood pressure 97 mm[Hg] OUTREACH PROFESSIONAL Cris Robuck Work Phone: [facility] 04-19-2023 19:09-0400 Heart rate 83 /min OUTREACH PROFESSIONAL Cris Robuck Work Phone: [facility] 04-19-2023 19:09-0400 Respiratory rate 18 /min OUTREACH PROFESSIONAL Cris Robuck Work Phone: [facility] 04-19-2023 19:09-0400 SaO2% (BldA) [Mass fraction] 100 % OUTREACH PROFESSIONAL Cris Robuck Work Phone: [facility] 04-19-2023 19:09-0400 Systolic blood pressure 124 mm[Hg] OUTREACH PROFESSIONAL Cris Robuck Work Phone: [facility] 04-18-2023 22:55-0400 Diastolic blood pressure 88 mm[Hg] OUTREACH PROFESSIONAL Cris Robuck Work Phone: [facility] 04-18-2023 22:55-0400 Heart rate 98 /min OUTREACH PROFESSIONAL Cris Robuck Work Phone: [facility] 04-18-2023 22:55-0400 Respiratory rate 16 /min OUTREACH PROFESSIONAL Cris Robuck Work Phone: [facility] 04-18-2023 22:55-0400 SaO2% (BldA) [Mass fraction] 98 % OUTREACH PROFESSIONAL Cris Robuck Work Phone: [facility] 04-18-2023 22:55-0400 Systolic blood pressure 136 mm[Hg] OUTREACH PROFESSIONAL Cris Robuck Work Phone: [facility] 04-18-2023 21:13-0400 Body height 165.1 cm OUTREACH PROFESSIONAL Cris Robuck Work Phone: [facility] 04-18-2023 21:13-0400 Body temperature 98 [degF] OUTREACH PROFESSIONAL Cris Pena Work Phone: [facility] 04-18-2023 21:13-0400 Body weight 66.45 kg RUIZ Pena Work Phone: [facility] 04-16-2023 14:57-0400 Body weight 65.77 kg Caitlin Cheatham OUTREACH PROFESSIONAL.IDENTIFICATION PRINTING MACHINE SETTER Work Phone: [facility] 04-16-2023 14:57-0400 Diastolic blood pressure 79 mm[Hg] Caitlin Muha OUTREACH PROFESSIONAL.IDENTIFICATION PRINTING MACHINE SETTER Work Phone: [facility] 04-16-2023 14:57-0400 Heart rate 108 /min Caitlin Cheatham OUTREACH PROFESSIONAL.IDENTIFICATION PRINTING MACHINE SETTER Work Phone: [facility] 04-16-2023 14:57-0400 Systolic blood pressure 133 mm[Hg] Caitlin Franksha OUTREACH PROFESSIONAL.IDENTIFICATION PRINTING MACHINE SETTER Work Phone: [facility] 03-16-2023 08:40-0400 Body height 167.9 cm Caitlin Cheatham OUTREACH PROFESSIONAL.IDENTIFICATION PRINTING MACHINE SETTER Work Phone: [facility] 03-16-2023 08:40-0400 Body temperature 98.1 [degF] Caitlin Franksha OUTREACH PROFESSIONAL.IDENTIFICATION PRINTING MACHINE SETTER Work Phone: [facility] 03-16-2023 08:40-0400 Body weight 69.85 kg Caitlin Cheatham OUTREACH PROFESSIONAL.IDENTIFICATION PRINTING MACHINE SETTER Work Phone: [facility] 03-16-2023 08:40-0400 Diastolic blood pressure 74 mm[Hg] Caitlin Muha OUTREACH PROFESSIONAL.IDENTIFICATION PRINTING MACHINE SETTER Work Phone: [facility] 03-16-2023 08:40-0400 Heart rate 88 /min Caitlin Cheatham OUTREACH PROFESSIONAL.IDENTIFICATION PRINTING MACHINE SETTER Work Phone: [facility] 03-16-2023 08:40-0400 SaO2% (BldA) [Mass fraction] 98 % Caitlin Cheatham OUTREACH PROFESSIONAL.IDENTIFICATION PRINTING MACHINE SETTER Work Phone: [facility] 03-16-2023 08:40-0400 Systolic blood pressure 120 mm[Hg] Caitlin Cheatham OUTREACH PROFESSIONAL.IDENTIFICATION PRINTING MACHINE SETTER Work Phone: [facility] 02-24-2023 12:15-0400 Body height 170.18 cm OUTREACH PROFESSIONAL Cris Robuck Work Phone: [facility] 02-24-2023 12:15-0400 Body temperature 97.6 [degF] OUTREACH PROFESSIONAL Cris Robuck Work Phone: [facility] 02-24-2023 12:15-0400 Body weight 66.5 kg OUTREACH PROFESSIONAL Cris Robuck Work Phone: [facility] 02-24-2023 12:15-0400 Diastolic blood pressure 59 mm[Hg] OUTREACH PROFESSIONAL Cris Robuck Work Phone: [facility] 02-24-2023 12:15-0400 Heart rate 75 /min OUTREACH PROFESSIONAL Cris Robuck Work Phone: [facility] 02-24-2023 12:15-0400 Respiratory rate 20 /min OUTREACH PROFESSIONAL Cris Robuck Work Phone: [facility] 02-24-2023 12:15-0400 SaO2% (BldA) [Mass fraction] 100 % OUTREACH PROFESSIONAL Cris Robuck Work Phone: [facility] 02-24-2023 12:15-0400 Systolic blood pressure 105 mm[Hg] OUTREACH PROFESSIONAL Cris Robuck Work Phone: [facility] 02-03-2023 19:12-0400 Diastolic blood pressure 64 mm[Hg] OUTREACH PROFESSIONAL Cris Robuck Work Phone: [facility] 02-03-2023 19:12-0400 Heart rate 84 /min OUTREACH PROFESSIONAL Cris Robuck Work Phone: [facility] 02-03-2023 19:12-0400 Respiratory rate 17 /min OUTREACH PROFESSIONAL Cris Robuck Work Phone: [facility] 02-03-2023 19:12-0400 SaO2% (BldA) [Mass fraction] 98 % OUTREACH PROFESSIONALApoorva Lynch Robuck Work Phone: [facility] 02-03-2023 19:12-0400 Systolic blood pressure 107 mm[Hg] OUTREACH PROFESSIONAL Cris Robuck Work Phone: [facility] 02-03-2023 11:00-0400 Body height 165.1 cm OUTREACH PROFESSIONALApoorva Lynch Robuck Work Phone: [facility] 02-03-2023 11:00-0400 Body weight 66.2 kg OUTREACH PROFESSIONALApoorva Lynch Robuck Work Phone: [facility] 02-03-2023 10:59-0400 Body temperature 98.2 [degF] OUTREACH PROFESSIONALApoorva Lynch Robuck Work Phone: [facility] 01-26-2023 21:53-0400 Body height 167.64 cm DO Rachael Tupa Work Phone: [facility] 01-26-2023 21:53-0400 Body temperature 97.7 [degF] DO Rachael Tupa Work Phone: [facility] 01-26-2023 21:53-0400 Body weight 67.4 kg DO Rachael Tupa Work Phone: [facility] 01-26-2023 21:53-0400 Diastolic blood pressure 63 mm[Hg] DO Rachael Tupa Work Phone: [facility] 01-26-2023 21:53-0400 Heart rate 87 /min DO Rachael Tupa Work Phone: [facility] 01-26-2023 21:53-0400 Respiratory rate 20 /min DO Rachael Tupa Work Phone: [facility] 01-26-2023 21:53-0400 SaO2% (BldA) [Mass fraction] 97 % DO Rachael Tupa Work Phone: [facility] 01-26-2023 21:53-0400 Systolic blood pressure 116 mm[Hg] DO Rachael Tupa Work Phone: [facility] 01-16-2023 07:21-0400 Body temperature 97.4 [degF] DO Rachael Tupa Work Phone: [facility] 01-16-2023 07:21-0400 Diastolic blood pressure 61 mm[Hg] DO Rachael Tupa Work Phone: [facility] 01-16-2023 07:21-0400 Heart rate 79 /min DO Rachael Tupa Work Phone: [facility] 01-16-2023 07:21-0400 Respiratory rate 16 /min DO Rachael Tupa Work Phone: [facility] 01-16-2023 07:21-0400 SaO2% (BldA) [Mass fraction] 98 % DO Rachael Tupa Work Phone: [facility] 01-16-2023 07:21-0400 Systolic blood pressure 105 mm[Hg] DO Rachael Tupa Work Phone: [facility] 01-13-2023 15:02-0400 Body height 165.1 cm DO Rachael Tupa Work Phone: [facility] 01-12-2023 15:41-0400 Body weight 60.9 kg DO Rachael Tupa Work Phone: [facility] 01-12-2023 11:28-0400 Diastolic blood pressure 72 mm[Hg] DO Rachael Tupa Work Phone: [facility] 01-12-2023 11:28-0400 Heart rate 106 /min DO Rachael Tupa Work Phone: [facility] [facility] 01-12-2023 11:28-0400 Respiratory rate 18 /min DO Rachael Tupa Work Phone: [facility] 01-12-2023 11:28-0400 SaO2% (BldA) [Mass fraction] 98 % DO Rachael Tupa Work Phone: [facility] 01-12-2023 11:28-0400 Systolic blood pressure 119 mm[Hg] DO Rachael Tupa Work Phone: [facility] 01-12-2023 07:59-0400 Body height 165.1 cm DO Rachael Tupa Work Phone: [facility] 01-12-2023 07:59-0400 Body weight 60.9 kg DO Rachael Tupa Work Phone: [facility] 01-12-2023 07:58-0400 Body temperature 97.3 [degF] DO Rachael Tupa Work Phone: [facility] 11-20-2022 18:18-0500 Diastolic blood pressure 112 mm[Hg] DO Rachael Tupa Work Phone: [facility] 11-20-2022 18:18-0500 Heart rate 125 /min DO Rachael Tupa Work Phone: [facility] 11-20-2022 18:18-0500 Respiratory rate 17 /min DO Rachael Tupa Work Phone: [facility] 11-20-2022 18:18-0500 SaO2% (BldA) [Mass fraction] 96 % DO Rachael Tupa Work Phone: [facility] 11-20-2022 18:18-0500 Systolic blood pressure 160 mm[Hg] DO Rachael Tupa Work Phone: [facility] 11-20-2022 16:10-0500 Body height 167.64 cm DO Rachael Tupa Work Phone: [facility] 11-20-2022 16:10-0500 Body temperature 98.5 [degF] DO Rachael Tupa Work Phone: [facility] 11-20-2022 16:10-0500 Body weight 69 kg DO Rachael Tupa Work Phone: [facility] 11-20-2022 02:58-0500 Body height 167.64 cm DO Rachael Tupa Work Phone: [facility] 11-20-2022 02:58-0500 Body temperature 98.3 [degF] DO Rachael Tupa Work Phone: [facility] 11-20-2022 02:58-0500 Body weight 69.5 kg DO Rachael Tupa Work Phone: [facility] 11-20-2022 02:58-0500 Diastolic blood pressure 96 mm[Hg] DO Rachael Tupa Work Phone: [facility] 11-20-2022 02:58-0500 Heart rate 96 /min DO Rachael Tupa Work Phone: [facility] 11-20-2022 02:58-0500 Respiratory rate 18 /min DO Rachael Tupa Work Phone: [facility] 11-20-2022 02:58-0500 SaO2% (BldA) [Mass fraction] 98 % DO Rachael Tupa Work Phone: [facility] 11-20-2022 02:58-0500 Systolic blood pressure 169 mm[Hg] DO Rachael Tupa Work Phone: [facility] 11-10-2022 01:55-0500 Diastolic blood pressure 80 mm[Hg] Hcristian Chucky [facility] 11-10-2022 01:55-0500 Heart rate 71 /min Christian Chucky [facility] 11-10-2022 01:55-0500 Mean blood pressure 92 mm[Hg] Christian Locke [facility] 11-10-2022 01:55-0500 Respiratory rate 14 /min Christian Chucky [facility] 11-10-2022 01:55-0500 SaO2% (BldA) [Mass fraction] 96 % Christian Chucky [facility] 11-10-2022 01:55-0500 Systolic blood pressure 116 mm[Hg] Christian Chucky [facility] 11-10-2022 01:08-0500 Heart rate 72 /min Christian Chucky [facility] 11-10-2022 01:08-0500 SaO2% (BldA) [Mass fraction] 94 % Christian Chucky [facility] 11-09-2022 21:52-0500 Diastolic blood pressure 95 mm[Hg] Christian Chucky [facility] 11-09-2022 21:52-0500 Heart rate 96 /min Christian Chucky [facility] 11-09-2022 21:52-0500 Respiratory rate 18 /min Christian Chucky [facility] 11-09-2022 21:52-0500 SaO2% (BldA) [Mass fraction] 99 % Christian Chucky [facility] 11-09-2022 21:52-0500 Systolic blood pressure 122 mm[Hg] Christian Chucky [facility] 11-09-2022 20:52-0500 Body temperature 98.78 [degF] Christian Chucky [facility] 11-09-2022 20:52-0500 Diastolic blood pressure 87 mm[Hg] Christian Chucky [facility] 11-09-2022 20:52-0500 Respiratory rate 18 /min Christian Chucky [facility] 11-09-2022 20:52-0500 Systolic blood pressure 145 mm[Hg] Christian Chucky [facility] 11-06-2022 14:38-0500 Blood Pressure Location Cris ROBUCK [facility] 11-06-2022 14:38-0500 Diastolic blood pressure 88 mm[Hg] Cris ROBUCK [facility] 11-06-2022 14:38-0500 Heart rate 96 /min Cris ROBUCK [facility] 11-06-2022 14:38-0500 SaO2% (BldA) [Mass fraction] 96 % Cris ROBUCK [facility] 11-06-2022 14:38-0500 Systolic blood pressure 132 mm[Hg] Cris ROBUCK [facility] 10-10-2022 12:46-0500 Blood Pressure Location Cris ROBUCK [facility] 10-10-2022 12:46-0500 Body temperature 98.06 [degF] Cris ROBUCK [facility] 10-10-2022 12:46-0500 Diastolic blood pressure 78 mm[Hg] Cris ROBUCK [facility] 10-10-2022 12:46-0500 Heart rate 89 /min Cris ROBUCK [facility] 10-10-2022 12:46-0500 SaO2% (BldA) [Mass fraction] 98 % Cris ROBUCK [facility] 10-10-2022 12:46-0500 Systolic blood pressure 130 mm[Hg] Cris PENA [facility] 10-02-2022 14:08-0500 Blood Pressure Location NANCY SIDELL [facility] 10-02-2022 14:08-0500 Body temperature 98.24 [degF] NANCY SIDELL [facility] 10-02-2022 14:08-0500 Diastolic blood pressure 78 mm[Hg] NANCY SIDELL [facility] 10-02-2022 14:08-0500 Heart rate 93 /min NANCY SIDELL [facility] 10-02-2022 14:08-0500 SaO2% (BldA) [Mass fraction] 98 % NANCY SIDELL [facility] 10-02-2022 14:08-0500 Systolic blood pressure 136 mm[Hg] NANCY SIDELL [facility] 08-08-2022 23:00-0400 Body height 167.64 cm DO Rachael Tupa Work Phone: [facility] 08-08-2022 23:00-0400 Body temperature 98.1 [degF] DO Rachael Tupa Work Phone: [facility] 08-08-2022 23:00-0400 Body weight 68.55 kg DO Rachael Tupa Work Phone: [facility] 08-08-2022 23:00-0400 Diastolic blood pressure 71 mm[Hg] DO Rachael Tupa Work Phone: [facility] 08-08-2022 23:00-0400 Heart rate 87 /min DO Rachael Tupa Work Phone: [facility] 08-08-2022 23:00-0400 Respiratory rate 20 /min DO Rachael Reyes Work Phone: [facility] 08-08-2022 23:00-0400 SaO2% (BldA) [Mass fraction] 95 % DO Rachael Reyes Work Phone: [facility] 08-08-2022 23:00-0400 Systolic blood pressure 118 mm[Hg] DO Rachael Reyes Work Phone: [facility] 04-25-2022 00:00-0400 Blood Pressure Location Luis Armando Gastelume [facility] 04-25-2022 00:00-0400 Diastolic blood pressure 58 mm[Hg] Luis Armando Osei [facility] 04-25-2022 00:00-0400 Heart rate 82 /min Luis Armando Osei [facility] 04-25-2022 00:00-0400 Mean blood pressure 71 mm[Hg] Luis Armando Osei [facility] 04-25-2022 00:00-0400 SaO2% (BldA) [Mass fraction] 98 % Luis Armando Osei [facility] 04-25-2022 00:00-0400 Systolic blood pressure 97 mm[Hg] Luis Armando Osei [facility] 04-24-2022 18:53-0400 Diastolic blood pressure 87 mm[Hg] Luis Armando Osei [facility] 04-24-2022 18:53-0400 Heart rate 99 /min Luis Armando Osei [facility] 04-24-2022 18:53-0400 Mean blood pressure 102 mm[Hg] Luis Armando Osei [facility] 04-24-2022 18:53-0400 Respiratory rate 18 /min Luis Armando Osei [facility] 04-24-2022 18:53-0400 SaO2% (BldA) [Mass fraction] 96 % Luis Armando Franz [facility] 04-24-2022 18:53-0400 Systolic blood pressure 132 mm[Hg] Luis Armando Franz [facility] 04-24-2022 13:05-0400 Body temperature 98.78 [degF] Luis Armando Franz [facility] 04-24-2022 13:05-0400 Diastolic blood pressure 97 mm[Hg] Luis Armando Franz [facility] 04-24-2022 13:05-0400 Heart rate 118 /min Luis Armando Franz [facility] 04-24-2022 13:05-0400 SaO2% (BldA) [Mass fraction] 96 % Luis Armando Franz [facility] 04-24-2022 13:05-0400 Systolic blood pressure 163 mm[Hg] Luis Armando Franz [facility] 07-31-2020 07:48-0400 Body Temperature 98.01 [degF] [facility] [place] 07-31-2020 07:48-0400 BP Diastolic 67 mm[Hg] [facility] [place] 07-31-2020 07:48-0400 BP Systolic 108 mm[Hg] [facility] [place] 07-31-2020 07:48-0400 Pulse (Heart Rate) 82 /min [facility] [place] 07-31-2020 07:48-0400 Respiratory Rate 14 /min [facility] [place] 07-29-2020 08:04-0400 Pulse Oximetry 100 % [facility] [place] 07-18-2020 02:42-0400 BMI (Body Mass Index) 24.96 kg/m2 [facility] [employer] [place] 07-18-2020 02:42-0400 Body weight 68.04 kg [employer] K[facility] 07-18-2020 [id number] [facility] Encounters Encounter Date Encounter Type Care Provider Facility Start: 12-02-2023 ambulatory Cris PENA Facility :[facility] Start: 11-24-2023 End: 11-25-2023 ambulatory Cris E MAGALIE Facility:[facility] Start: 10-27-2023 ambulatory Cris E MAGALIE Facility :[facility] Start: 10-23-2023 End: 10-28-2023 ambulatory Christian Locke Facility:[id number] Start: 10-09-2023 End: 10-21-2023 Evaluation and management of inpatient Bobobambi Shields Facility:[facility] Start: 10-09-2023 End: 10-21-2023 Evaluation and management of inpatient [facility] Work Phone: Start: 10-02-2023 End: 10-02-2023 Emergency department patient visit Cris Pena Facility:[facility] Start: 10-02-2023 End: 10-02-2023 Emergency department patient visit [facility] Work Phone: Start: 09-14-2023 End: 09-15-2023 Emergency department patient visit Cris Pena Facility:[facility] Start: 09-14-2023 End: 09-14-2023 Emergency department patient visit OUTREACH PROFESSIONAL Cris Pena Work Phone: [facility] Work Phone: Start: 09-10-2023 End: 09-10-2023 Emergency department patient visit Derrell Orantes Facility:[facility] Start: 09-10-2023 ambulatory Claudio Castaneda acility:[facility] Start: 09-09-2023 End: 09-09-2023 Emergency department patient visit Cris Pena Facility:[facility] Start: 09-09-2023 End: 09-09-2023 Emergency department patient visit [facility] Work Phone: Start: 08-27-2023 ambulatory Akbar Koch MD Work Phone: Spine Medicine Comment on above: Refill Request; Refi ll Request Start: 08-27-2023 E-mail encounter fro m caregiver Akbar Koch MD Work Phone: [facility] Start: 08-27-2023 Telephone encounter Akbar bassett MD Work Phone: Spine Medicine Comment on above: Appointment Start: 08-19-2023 ambulatory Cris PENA Facility :[facility] Start: 08-15-2023 End: 08-15-2023 Emergency department patient visit [facility] Facility:[facility] Start: 08-14-2023 End: 08-14-2023 Emergency department patient visit [facility] Facility:[facility] Start: 08-13-2023 End: 08-13-2023 Emergency department patient visit Derrell Orantes Facility:[facility] Start: 08-07-2023 End: 08-07-2023 Emergency department patient visit DO Norma Dietz Facility:[facility] Start: 08-04-2023 ambulatory Cris PENA Facility :[facility] Start: 07-17-2023 Refill Akbar Koch MD Work Phone: Pain Management Comment on above: Refill Request Start: 07-07-2023 Telephone encounter Lara Salinas RN [facility] Start: 07-07-2023 End: 07-08-2023 ambulatory Jacqueline Marquez [facility] Start: 07-03-2023 End: 07-13-2023 Evaluation and management of inpatient Bobo Cornelius Facility:[facility] Start: 07-02-2023 End: 07-13-2023 Evaluation and management of inpatient [facility] Work Phone: Start: 07-02-2023 Registered Recurring RUIZ Pena Work Phone: [facility] Start: 07-01-2023 End: 07-02-2023 ambulatory Zahraa Connors Facility:[facility] Start: 06-17-2023 Telephone encounter Akbar bassett MD Work Phone: Pain Management Comment on above: Medication Problem Start: 06-09-2023 Refill Chuck Galindo MD Work Phone: [facility] [place] Comment on above: Refill Request Start: 06-08-2023 End: 06-08-2023 Emergency department patient visit Luis Armando Hendrix Facility:[facility] Start: 06-08-2023 End: 06-08-2023 Emergency department patient visit [facility] Work Phone: Start: 06-06-2023 End: 06-06-2023 [facility] Start: 05-22-2023 Refill Caitlin Cheatham APRN.IDENTIFICATION PRINTING MACHINE SETTER Work Phone: [facility] [place] Comment on above: Refill Request Start: 05-14-2023 Telephone encounter Rosa KleinProduce Service Team Member) Madeline russo LPN [facility] [place] Comment on above: Patient Update Start: 05-14-2023 End: 05-14-2023 ambulatory CAITLIN MUHEYDI Facility:[facility] Start: 04-24-2023 Telephone encounter Caitlin Cheatham APRN.IDENTIFICATION PRINTING MACHINE SETTER Work Phone: [facility] [place] Comment on above: Medication Request Start: 04-22-2023 Telephone encounter Fernanda ENCARNACION Work Phone: Psychology Comment on above: BH consult Start: 04-19-2023 End: 04-19-2023 Emergency department patient visit Eriberto Sheppard Facility:[facility] Start: 04-19-2023 End: 04-19-2023 Emergency department patient visit OUTREACH PROFESSIONALApoorva Pnea Work Phone: [facility] Work Phone: Start: 04-18-2023 End: 04-19-2023 Emergency department patient visit NON STAFF Facility:[facility] Start: 04-18-2023 End: 04-18-2023 Emergency department patient visit OUTREACH PROFESSIONAL Cris Pena Work Phone: [facility] Work Phone: Start: 04-16-2023 End: 04-16-2023 Nurse Triage Verónica Martínez RN NURSE BOILER OR ENGINE OPERATOR Comment on above: Refill Request Thank you Attention deficit hy peractivity disorder (ADHD), unspecified ADHD type (Primary Dx); Paranoid schizophrenia (HCC); Bipolar depression (HCC); History of heroin abuse (HCC) Start: 04-13-2023 End: 04-13-2023 ambulatory Chuck Galindo MD Work Phone: [facility] Medicine [place] Comment on above: Anxiety (Primary Dx) Start: 04-13-2023 End: 04-13-2023 Telemedicine consultation with patient Chuck Galindo MD Work Phone: [facility] Start: 04-02-2023 End: 04-03-2023 ambulatory NANCY RODRIGUEZ Facility:[facility] Start: 03-16-2023 End: 03-16-2023 ambulatory CAITLIN CHEATHAM Facility:[facility] Start: 03-16-2023 End: 03-16-2023 Patient encounter procedure Caitlin Cheatham APRN.IDENTIFICATION PRINTING MACHINE SETTER Work Phone: [facility] Comment on above: Wellness examination (Primary Dx); Screening for diabetes mellitus; Screening for lipid disorders; Screening for cervical cancer; History of abnormal cervical Pap smear; History of heroin abuse (HCC); Attention deficit hyperactivity disorder (ADHD), unspecified ADHD type; Bipolar depression (HCC); Paranoid schizophrenia (HCC); Chronic midline low back pain without sciatica Start: 03-16-2023 End: 03-16-2023 Patient encounter status Caitlin Cheatham APRN.IDENTIFICATION PRINTING MACHINE SETTER Work Phone: [facility] Start: 03-08-2023 End: 03-08-2023 Emergency department patient visit Heather Valenzuela Facility:[facility] Start: 02-24-2023 End: 02-24-2023 Emergency department patient visit Cris Pena Facility:[facility] Start: 02-24-2023 End: 02-24-2023 Emergency department patient visit RUIZ Pena Work Phone: [facility] Work Phone: Start: 02-05-2023 ambulatory Cris PENA Facility :[facility] Start: 02-03-2023 End: 02-03-2023 Emergency department patient visit Cris Pena Facility:[facility] Start: 02-03-2023 End: 02-03-2023 Emergency department patient visit OUTREACH PROFESSIONAL Cris Pena Work Phone: [facility] Work Phone: Start: 01-26-2023 End: 01-27-2023 Emergency department patient visit Farhad Landon Facility:[facility] Start: 01-26-2023 End: 01-26-2023 Emergency department patient visit DO Rachael Reyes Work Phone: [facility] Work Phone: Start: 01-19-2023 End: 02-06-2023 ambulatory Christian Locke Facility:CD:[id number] Start: 01-12-2023 End: 01-16-2023 Evaluation and management of inpatient Bobo Shields Facility:[facility] Start: 01-12-2023 End: 01-16-2023 Evaluation and management of inpatient DO Rachael Reyes Work Phone: [facility] Work Phone: Start: 01-12-2023 End: 01-12-2023 Emergency department patient visit DO Norma Dietz Facility:[facility] Start: 01-12-2023 End: 01-12-[address] DOCTOR PATEL Facility:[facility] Start: 01-08-2023 End: 01-08-2023 Emergency department patient visit Derrell Orantes Facility:[facility] Start: 01-08-2023 End: 01-08-[address] DOCTOR PATEL Facility:[facility] Start: 01-07-2023 ambulatory Cris PENA Facility :[facility] Start: 12-15-2022 End: 12-16-[address] DOCTOR PATEL Facility:[facility] Start: 12-04-2022 ambulatory Cris PENA Facility :[facility] Start: 12-02-2022 End: 12-03-2022 ambulatory Cris PENA Facility:[facility] Start: 11-20-2022 End: 11-20-2022 Emergency department patient visit Nito Walton Facility:[facility] Start: 11-20-2022 End: 11-20-2022 Emergency department patient visit DO Rachael Reyes Work Phone: [facility] Work Phone: Start: 11-20-2022 End: 11-20-2022 Emergency department patient visit Cris Pena Facility:[facility] Start: 11-20-2022 End: 11-20-2022 Emergency department patient visit DO Rachael Reyes Work Phone: [facility] Work Phone: Start: 11-09-2022 End: 11-10-2022 Emergency department patient visit Christian Chucky [facility] Start: 11-06-2022 End: 11-06-2022 Patient encounter procedure Cris E MAGALIE [facility] Start: 10-10-2022 End: 10-10-2022 Patient encounter procedure Cris E ROBRONALDO [facility] Start: 10-02-2022 End: 10-02-2022 Patient encounter procedure NANCY RODRIGUEZ [facility] Start: 08-08-2022 End: 08-09-2022 Emergency department patient visit DO Rachael Reyes Work Phone: [facility] Start: 06-22-2022 End: 06-23-[address] STACI HENDRIX Facility:[facility] Start: 06-16-2022 End: 06-17-[address] STACI HENDRIX Facility:[facility] Start: 04-24-2022 End: 04-25-2022 Emergency department patient visit Luis Armando Franz [facility] Start: 04-11-2022 End: 04-12-[address] SULTANA DOOLEY Facility:[facility] Start: 02-05-2021 End: 02-11-2021 Evaluation and management of inpatient BRET THORPE [facility] Start: 07-27-2020 Telephone encounter Adam chaudhary Work Phone: [facility] Deli Department Manager [place] Comment on above: Results (abnormal pa p needs colposcopy appt) Start: 07-26-2020 Telephone encounter Jaylyn richards Work Phone: [facility] Deli Department Manager [place] Comment on above: Other (scheduled col poscopy appointment ) Start: 07-18-2020 Patient encounter procedure [facility] [place] Start: 07-18-2020 End: 07-31-2020 Evaluation and management of inpatient JOSE MOSES [facility] Start: 07-17-2020 Patient encounter procedure [facility] Admitting Start: 05-14-2019 End: 05-14-2019 Emergency department patient visit [facility] Start: 05-08-2019 Emergency department patient visit [facility] Procedures Date Procedure Procedure Detail Performing Clinician Start: 10-16-2023 Aerobic microbial culture OUTREACH PROFESSIONAL Cris Robuck Work Phone: Start: 10-16-2023 Investigation of transfusion reaction OUTREACH PROFESSIONAL Cris Robuck Work Phone: Start: 10-15-2023 Plain chest X-ray OUTREACH PROFESSIONAL Cris Robuck Work Phone: Start: 10-08-2023 Urine culture OUTREACH PROFESSIONAL [place] Robuck Work Phone: Start: 06-08-2023 Urine culture Start: 02-03-2023 Urine culture OUTREACH PROFESSIONAL [place] Robuck Work Phone: Start: 01-12-2023 [...] Work Phone: Start: 07-23-2020 IP CONSULT TO CAUSTIC LOADER ER IC MOSES Start: 07-22-2020 IP CONSULT TO LITERACY SPECIALIST [facility] MEDIC[facility] JOSE JORGE Start: 07-21-2020 Drug [...] Work Phone: Start: 07-19-2020 IP CONSULT TO LITERACY SPECIALIST AL MEDICINE JOSE MOSES Start: 07-18-2020 IP [...] - Td) DTaP/Tdap/Td vaccine (3 - Td) [place], [place] Start: 07-22-2028 Urine microalbumin profile [facility] Start: 04-16-2024 ANNUAL PCP TEAM PRODUCTION RECOVERY OPERATOR BENNY DISEASE VISIT ANNUAL PCP TEAM CHRONIC DISEASE VISIT [facility] Start: 04-13-2024 ANNUAL PCP TEAM PRODUCTION RECOVERY OPERATOR BENNY DISEASE VISIT ANNUAL PCP TEAM CHRONIC DISEASE VISIT [facility] Start: 03-16-2024 ANNUAL PCP TEAM PRODUCTION RECOVERY OPERATOR BENNY DISEASE VISIT ANNUAL PCP TEAM CHRONIC DISEASE VISIT [facility] Start: 10-21-2023 [facility] Start: 10-09-2023 [facility] Start: 10-09-2023 Hospital admission [facility] Start: 10-09-2023 [facility] Start: 10-08-2023 Bacteria identified in Urine by Culture [facility] Start: 09-14-2023 [facility] Start: 07-24-2023 Screening for malign ant neoplasm of cervix Cervical cancer screen [place], [place] Start: 07-13-2023 [facility] Start: 07-02-2023 Hospital admission [facility] Start: 06-12-2023 Influenza vaccination C [facility] Start: 06-08-2023 Bacteria identified in Urine by Culture Urine Culture [facility] Start: 03-16-2023 End: 05-16-2023 Comprehensive metabolic 2000 panel - Serum or Plasma COMP METABOLIC PANEL Lab Routine Screening for diabetes mellitus Expected: 03/16/2023, Expires: 05/16/2023 [facility] Work Phone: Comment on above: Expected: 03/16/2023 , Expires: 05/16/2023 Start: 03-16-2023 End: 05-16-2023 Hemoglobin A1c in Blood HGB A1C Lab Routine Screening for diabetes mellitus Expected: 03/16/2023, Expires: 05/16/2023 [facility] Work Phone: Comment on above: Expected: 03/16/2023 , Expires: 05/16/2023 Start: 03-16-2023 End: 05-16-2023 Lipid 1996 panel - Serum or Plasma LIPID PANEL BASIC Lab Routine Screening for lipid disorders Expected: 03/16/2023, Expires: 05/16/2023 [facility] Work Phone: Comment on above: Expected: 03/16/2023 , Expires: 05/16/2023 Start: 01-16-2023 [facility] Start: 01-12-2023 Bacteria identified in Urine by Culture Urine Culture [facility] Start: 01-12-2023 Hospital admission [facility] Start: 11-20-2022 [facility] Start: 08-08-2022 Plain chest X-ray XR chest 2V* St. [facility] Start: 08-08-2022 XR Chest 2 Views [facility] Start: 06-12-2020 Influenza vaccination [facility] (# [facility] [place] Start: 07-15-2019 HEPATITIS A (2 of 2 - Risk 2-dose series) HEPATITIS A (2 of 2 - Risk 2-dose series) [facility] Start: 07-15-2019 Hepatitis A Vaccine (2 of 2 - Risk 2-dose series) Hepatitis A Vaccine (2 of 2 - Risk 2-dose series) [facility] Start: 2015 HPV TESTING HPV TESTING [facility] Start: 12-26-2014 PNEUMOCOCCAL (2 - PCV) PNEUMOCOCCAL (2 - PCV) [facility] Start: 03-17-2015 Pneumococcal vaccination Pneum ococcal Vaccine (2 - PCV) [facility] Start: 2006 PAP TESTING PAP TESTING [facility] Start: 2003 SPIROMETRY SPIROMETRY [facility] Start: 07-07-1997 HEPATITIS B (2 of 3 - 3-dose series) HEPATITIS B (2 of 3 - 3-dose series) [facility] Start: 07-07-1997 Hepatitis B vaccine (2 of 3 - 3-dose primary series) Hepatitis B vaccine (2 of 3 - 3-dose primary series) [place] Start: 07-07-1997 Hepatitis B Vaccine (2 of 3 - 3-dose series) Hepatitis B Vaccine (2 of 3 - 3-dose series) [facility] Start: 1991 Pneumococcal 0-64 ye ars Vaccine (1 of 1 - PPSV23) Pneumococcal 0-64 years Vaccine (1 of 1 - PPSV23) [place] Start: 1986 Varicella vaccine (1 of 2 - 2-dose childhood series) Varicella vaccine (1 of 2 - 2-dose childhood series) [place] Start: 1985 COVID-19 VACCINE (#1) COVID-19 VACCI NE (#1) [facility] Albumin/Globulin ratio [facility] Anion gap measurement [facility] Basophils [#/volume] in Blood by Automated count [facility] Basophils/100 leukoc ytes in Blood by Automated count [facility] Calculated LDL cholesterol level [facility] Calculated LDL cholesterol level [facility] Cholesterol.total/Ch oles terol in HDL [Mass Ratio] in Serum or Plasma [facility] Cholesterol.total/Ch oles terol in HDL [Mass Ratio] in Serum or Plasma [facility] Eosinophils [#/volum e] in Blood [facility] Eosinophils/100 leukocytes in Blood by Automated count [facility] Erythrocyte distribu tion width [Ratio] by Automated count [facility] Erythrocytes [#/volu me] in Blood [facility] Ethanol [Mass/volume ] in Serum or Plasma [facility] Globulin [Mass/volum e] in Serum [facility] Hematocrit [Volume Fraction] of Blood [facility] Hemoglobin [Mass/vol ume] in Blood [facility] Leukocytes [#/volume ] corrected for nucleated erythrocytes in Blood by Automated coun [facility] Leukocytes [#/volume ] in Blood [facility] Lymphocytes [#/volum e] in Blood by Automated count [facility] Lymphocytes/100 leukocytes in Blood by Automated count [facility] MCH [Entitic mass] b y Automated count [facility] MCHC [Mass/volume] b y Automated count [facility] MCV [Entitic volume] by Automated count [facility] Monocytes [#/volume] in Blood by Automated count [facility] Monocytes/100 leukoc ytes in Blood by Automated count [facility] Neutrophils [#/volum e] in Blood by Automated count [facility] Neutrophils/100 leukocytes in Blood by Automated count [facility] Nucleated erythrocyt es [Presence] in Blood by Automated count [facility] Patient Education [facility] Work Phone: Patient referral [facility] Work Phone: Platelet mean volume [Entitic volume] in Blood by Automated count [facility] Platelets [#/volume] in Blood [facility] VLDL cholesterol measurement [facility] VLDL cholesterol measurement [facility] Immunizations Immunization Date Immunization Notes Care Provider Sameera [facility] 11-08-2019 Influenza, injectabl e, Madin Marcy Canine Kidney, preservative free, quadrivalent DO Rachael Reyes Work Phone: [facility] 11-08-2019 influenza virus vacc ine, unspecified formulation Caitlin Cheatham APRN.IDENTIFICATION PRINTING MACHINE SETTER Work Phone: [facility] 01-13-2019 hepatitis A vaccine, adult dosage Caitlin Cheatham APRN.IDENTIFICATION PRINTING MACHINE SETTER Work Phone: [facility] Work Phone: 07-22-2018 tetanus toxoid, redu juan alberto diphtheria toxoid, and acellular pertussis vaccine, adsorbed Luis Armando Franz [facility] Comment on above: Reason for Medicatio n: Other (see comment) 09-26-2016 influenza, injectabl e, quadrivalent, preservative free Caitlin Cehatham APRN.IDENTIFICATION PRINTING MACHINE SETTER Work Phone: [facility] Work Phone: 09-26-2016 RHO(D) immune globul in- IV or IM Caitlin Cheatham APRN.IDENTIFICATION PRINTING MACHINE SETTER Work Phone: [facility] Work Phone: 09-26-2016 tetanus toxoid, redu juan alberto diphtheria toxoid, and acellular pertussis vaccine, adsorbed Caitlin Cheatham APRN.IDENTIFICATION PRINTING MACHINE SETTER Work Phone: [facility] Work Phone: 12-26-2013 influenza, seasonal, injectable Luis Armando Franz [facility] 12-26-2013 pneumococcal polysaccharide vaccine, 23 valent Luis Armando Franz [facility] 07-26-2012 tetanus toxoid, redu juan alberto diphtheria toxoid, and acellular pertussis vaccine, adsorbed Luis Armando Franz [facility] Comment on above: Reason for Medicatio n: Other (see comment) 10-18-2011 pneumococcal polysaccharide vaccine, 23 valent Luis Armando Franz [facility] Comment on above: Early/Late Reason: A ccommodate D/C 10-18-2011 influenza, seasonal, injectable Luis Armando Franz [facility] Comment on above: Early/Late Reason: A ccommodate D/C 2010 novel influenza-H1N1 -09, preservative-free, injectable Caitlin Cheatham APRN.IDENTIFICATION PRINTING MACHINE SETTER Work Phone: [facility] Work Phone: 06-09-1997 hepatitis B vaccine, pediatric or pediatric/adolescent dosage Caitlin Cheatham APRN.IDENTIFICATION PRINTING MACHINE SETTER Work Phone: [facility] Work Phone: 06-09-1997 measles, mumps and rubella virus vaccine Caitlin Franksheydi OUTREACH PROFESSIONAL.IDENTIFICATION PRINTING MACHINE SETTER Work Phone: [facility] Work Phone: 06-09-1997 hepatitis B vaccine, unspecified formulation Caitlin Cheatham OUTREACH PROFESSIONAL.IDENTIFICATION PRINTING MACHINE SETTER Work Phone: [facility] Payers Date Payer Category Payer Self-pay [id number] 2022 Medicaid [place] [employer] [place] [employer] [id number] 2022-Present [phone] [address] [place] [address] Medicaid [id number] 1985 Unknown [id number] 2.16.840.1.534641.3.579.2.173 1985 Unknown [id number] 2.16.840.1.427746.3.579.2.173 1985 Unknown [id number] 2.16.840.1.421307.3.579.2.176 1985 Unknown [id number] 2.16.840.1.769206.3.579.2.176 1985 Unknown [id number] 2.16.840.1.252184.3.579.2.593 1985 Unknown [id number] 2.16.840.1.034574.3.579.2.593 1985 Unknown [id number] 2.16.840.1.198057.3.579.2.593 1985 Unknown [id number] 2.16.840.1.222633.3.579.2.593 1985 Unknown [id number] 2.16.840.1.326758.3.579.2.593 1985 Unknown [id number] 2.16.840.1.143038.3.579.2.593 1985 Unknown [id number] 2.16.840.1.184187.3.579.2.902 1985 Unknown [id number] 2.16.840.1.318423.3.579.2727 1985 Unknown [id number] 2.16.840.1.129175.3.579.272 1985 Unknown [id number] 2.16.840.1.174833.3.579.272 1985 Unknown [id number] 2.16.840.1.393690.3.579.272 1985 Unknown [id number] 2.16.840.1.029474.3.579.272 1985 Unknown [id number] 2.16840.1.209171.3.579.2 1985 Unknown [id number] 2.16.840.1.125284.3.579.272 1985 Unknown [id number] 2.16840.1.223558.3.579.2 1985 Unknown [id number] 2.16.840.1.275919.3.579.272 1985 Unknown [id number] 2.16840.1.753459.3.579.272 1985 Unknown [id number] 2.16.840.1.231663.3.579.272 1985 Unknown [id number] 2.16.840.1.092327.3.579.272 1985 Unknown [id number] 2.16.840.1.051994.3.579.272 1985 Unknown [id number] 2.16.840.1.135133.3.579.272 1985 Unknown [id number] 2.16.840.1.073258.3.579.2.727 1985 Unknown [id number] 2.16.840.1.294612.3.579.2.727 1985 Unknown [id number] 2.16.840.1.978177.3.579.2.727 1985 Unknown [id number] 2.16.840.1.915827.3.579.2.727 1985 Unknown [id number] 2.16.840.1.831406.3.579.2.727 1985 Unknown [id number] 2.16.840.1.438111.3.579.2.727 1959 Unknown [id number] Unknown [id number] 2.16.840.1.692363.3.579.2.531 Unknown [id number] 2.16.840.1.109920.3.579.2.531 Unknown [id number] 2.16.840.1.086563.3.579.2.531 Unknown [id number] 2.16.840.1.375098.3.579.2.531 Unknown [id number] 2.16.840.1.436108.3.579.2.531 Unknown [id number] 2.16.840.1.732844.3.579.2.531 Unknown [id number] 2.16.840.1.813221.3.579.2.531 Unknown [id number] 2.16.840.1.063234.3.579.2.531 Unknown [id number] 2.16.840.1.473961.3.579.2.531 Unknown [id number] 2.16.840.1.181704.3.579.2.531 Unknown [id number] 2.16.840.1.416812.3.579.2.531 Unknown [id number] 2.16.840.1.967940.3.579.2.531 Unknown [id number] 2.16.840.1.342708.3.579.2.531 Unknown [id number] 2.16.840.1.482547.3.579.2.531 Unknown [id number] 2.16.840.1.465338.3.579.2.531 Social History Date Type Detail Facility Start: 07-23-2020 End: 03-16-2023 Tobacco smoking status NHIS Current every day smoker [facility] History of tobacco use Cigarette Smoker [place] Start: 07-23-2020 End: 03-16-2023 Cigarettes smoked current (pack per day) - Reported [facility] Work Phone: Start: 07-23-2020 Tobacco use and exposure Never used [place], [place] Start: 07-23-2020 End: 04-24-2023 Alcohol intake Current non-drinker of alcohol (finding) [place] Start: 06-15-2015 Alcohol Comment unsure [place], [place] Start: 1985 Sex Assigned At Not on file [place], [place] Exposure to SARS-CoV -2 (event) Not sure [place] Start: 11-01-2021 End: 10-10-2022 Tobacco smoking status Light tobacco smoker (finding) [facility] Start: 08-08-2022 End: 10-15-2023 Tobacco smoking status Smoker (finding) [facility] Tobacco smoking status Never [facility] Start: 03-16-2023 End: 04-16-2023 Sex Assigned At Female [facility] [place] Start: 1985 Sex Assigned At Female F [facility] Tobacco [facility] Comment on above: denies Tobacco smoking status No Smokin g Status Entered [facility] Goals Date Patient Goal Desired Activity /State Functional Status Date Assessment Result Facility 10-21-2023 Functional status Patient at Baseline [facility] Work Phone: 07-13-2023 Functional status Patient at Baseline [facility] Work Phone: 01-16-2023 Functional status Patient at Baseline [facility] Work Phone: 11-09-2022 Functional Status N/A [facility] 11-06-2022 Functional Status N/A [facility] 10-10-2022 Functional Status N/A [facility] 10-02-2022 Functional Status N/A [facility] 04-24-2022 Functional Status N/A [facility] Mental Status Date Assessment Result Facility 10-21-2023 Cognitive function Cognitive Sta tus Patient at Baseline [facility] Work Phone: 07-13-2023 Cognitive function Cognitive Sta tus Patient at Baseline [facility] Work Phone: 01-16-2023 Cognitive function Cognitive Sta tus Patient at Baseline [facility] Work Phone: Clinical Notes 04-24-2022 to 10-25-2023 Note Date & Type Note Facility 10-25-2023 Note [id number] #[id number] [facility] 10-21-2023 Discharge summary Note Date/Time October 21, 2023 11:45am [facility] [address] [place] [address] Discharge Summary Signed Patient: Lorna Deutsch MR#: [id number] : 1985 Acct:[id number] Age/Sex: 38 / F Adm Date: 3 Loc: Room: [address] [place] [address]: Bobo Shields MD Copies to: MD Cris Murcia APRN, IDENTIFICATION PRINTING MACHINE SETTER~ Providers Date of Discharge: 10/21/23 Discharging Provider: [...] No activity restrictions Instructions: Bipolar Disorder (DC), [facility] [place] Instructions Prescriptions: New ergocalciferol [...] BY MOUTH TWICE A DAY -START ON 205509 dextroamphetamine-amphetamine 20 mg tablet 20 mg PO DAILY Patient Comments: TAKE ONE TABLET BY MOUTH TWICE A DAY -START ON quetiapine 150 mg tablet 150 mg PO HS Patient Comments: TAKE ONE TABLET BY MOUTH ONCE DAILY AT BEDTIME Follow Up: [facility] [Other] (Follow facility protocol for mental health needs. ) Cris Pena APRN, INTEGRATION SOLUTION ARCHITECT-C [Primary Care Provider] - (Contact your PCP with any medical needs. ) Documented By: Bobo Shields MD 10/21/23 1142 Signed By: <Electronically signed by Bobo Shields MD> 10/21/23 1148 [facility] Work Phone: 1(158) 724-959701-09-2024 Progress note Author Bobo Shields [facility] October 20, 2023 1:54pm Note Date/Time October 20, 2023 1: 54pm [facility] [address] [place] [address] Psychiatry Progress Note Signed Patient: Lorna Deutsch MR#: [id number] : 1985 Acct:[id number] Age/Sex: 38 / F Adm Date: 3 Loc: Room: [address] [place] [address] Type : ADM IN Attending Dr: Bobo [...] explained Documented By: Bobo Shields MD 10/20/23 5663 Signed By: <Electronically signed by Bobo Shields MD> 10/20/23 6176 [facility] Work Phone: 1(577) 558-877901-08-2024 Consult note Author Virgilio Lynne [facility] October 19, 2023 3:20pm Note Date/Time October 15, 2023 5: 06pm [facility] [address] [place] [address] Hospitalist Consult Note Signed Patient: Lorna Deutsch MR#: [id number] : 1985 Acct:[id number] Age/Sex: 38 / F Adm Date: 3 Loc: Room: [address] [place] [address] Type: ADM IN Attending Dr: Bobo Shields [...] counseling Documented By: Darlin Abdi APRN 02/02 4516 Signed By: <Electronically signed by RUIZ Abdi> 10/15/23 1803 <Electronically signed by Virgilio Lynne MD> 10/19/23 1526 [facility] Work Phone: 1(491) 988-871201-08-2024 Progress note Author Bobo Shields [facility] October 19, 2023 12:37pm Note Date/Time October 19, 2023 12 :36pm [facility] [address] [place] [address] Psychiatry Progress Note Signed Patient: Lorna Deutsch MR#: [id number] : 1985 Acct:[id number] Age/Sex: 38 / F Adm Date: 3 Loc: Room: [address] [place] [address] Type : ADM IN Attending Dr: Bobo [...] signed by Bobo Shields MD> 10/19/23 1237 [facility] Work Phone: 1(698) 333-934701-07-2024 Progress note Author Claudio case [facility] October 18, 2023 7:13am Note Date/Time October 18, 2023 7: 11am [facility] [address] [place] [address] Psychiatry Progress Note Signed Patient: Lorna Deutsch MR#: [id number] : 1985 Acct:[id number] Age/Sex: 38 / F Adm Date: 3 Loc: Room: [address] [place] [address] Type : ADM IN Attending Dr: Bobo [...] explained Documented By: Claudio Dee MD 4 [id number] Signed By: <Electronically signed by Claudio Dee MD> 10/18/23 0748 [facility] Work Phone: 1(981) 899-482201-05-2024 Progress note Author Claudio case [facility] October 16, 2023 7:43am Note Date/Time October 16, 2023 7: 43am [facility] [address] [place], [place] [address] Psychiatry Progress Note Signed Patient: Lorna Deutsch MR#: [id number] : 1985 Acct:[id number] Age/Sex: 38 / F Adm Date: 3 Loc: Room: [address] [place] [address] Type : ADM IN Attending Dr: Bobo Shields MD Copies to: ~ Date of Service: 10/16/2023 Subjective Subjective Narrative: Ms. Deutsch reported that she is depressed and wants to speak to a counselor. Sheclaims that she is going through Klonopin withdrawal. No objective signs. She continues to endorse SI. She was accepted to [facility] but does not wantto go now. [...] explained Documented By: Claudio Dee MD 4 [id number] Signed By: <Electronically signed by Claudio Dee MD> 10/16/23 7743 [facility] Work Phone: 1(795) 254-179301-04-2024 Progress note Author Claudio case [facility] October 15, 2023 9:39am Note Date/Time October 15, 2023 9: 39am [facility] [address] [place] [address] Psychiatry Progress Note Signed Patient: Lorna Deutsch MR#: [id number] : 1985 Acct:[id number] Age/Sex: 38 / F Adm Date: 3 Loc: 1S Room: [address] [place] [address] Type : ADM IN Attending Dr: Bobo [...] signed by Claudio Dee MD> 10/15/23 0939 [facility] Work Phone: 1(241) 445-487501-03-2024 Progress note Author Claudio case [facility] October 14, 2023 6:36am Note Date/Time October 14, 2023 6: 36am [facility] [address] [place] [address] Psychiatry Progress Note Signed Patient: Lorna Deutsch MR#: [id number] : 1985 Acct:[id number] Age/Sex: 38 / F Adm Date: 3 Loc: 1S Room: [address] [place] [address] Type : ADM IN Attending Dr: Bobo [...] signed by Claudio Dee MD> 10/14/23 0636 [facility] Work Phone: 1(130) 855-338001-02-2024 Progress note Author Claudio case [facility] October 13, 2023 7:39am Note Date/Time October 13, 2023 7: 39am [facility] [address] [place] [address] Psychiatry Progress Note Signed Patient: Lorna Deutsch MR#: [id number] : 1985 Acct:[id number] Age/Sex: 38 / F Adm Date: 3 Loc: Room: [address] [place] [address] Type : ADM IN Attending Dr: Bobo [...] signed by Claudio Dee MD> 10/13/23 0739 [facility] Work Phone: 1(428) 939-921101-01-2024 Progress note Author Claudio case [facility] October 12, 2023 7:26am Note Date/Time October 12, 2023 7: 26am [facility] [address] [place] [address] Psychiatry Progress Note Signed Patient: Lorna Deutsch MR#: [id number] : 1985 Acct:[id number] Age/Sex: 38 / F Adm Date: 3 Loc: Room: [address] [place] [address] Type : ADM IN Attending Dr: Bobo [...] explained Documented By: Claudio Dee MD 4 [id number] Signed By: <Electronically signed by Claudio Dee MD> 10/12/23 0726 [facility] Work Phone: 1(388) 120-353612-31-2023 Progress note Author Bobo Shields [facility] October 11, 2023 11:07am Note Date/Time October 11, 2023 11:07am [facility] [address] [place] [address] Psychiatry Progress Note Signed Patient: Lorna Deutsch MR#: [id number] : 1985 Acct:[id number] Age/Sex: 38 / F Adm Date: 3 Loc: 1S Room: 9J1905-0 Type : ADM IN Attending Dr: Bobo [...] <Electronically signed by Bobo Shields MD> 10/11/231106 [facility] Work Phone: 1(277) 669-404912-30-2023 Progress note Author Bobo Shields [facility] October 10, 2023 11:30am Note Date/Time October 10, 2023 11:30am [facility] [address] [place], [place] [address] Psychiatry Progress Note Signed Patient: Lorna Deutsch MR#: [id number] : 1985 Acct:[id number] Age/Sex: 38 / F Adm Date: 3 Loc: 1S Room: [id number] Type : ADM IN Attending Dr: Bobo [...] signed by Bobo Shields MD> 10/10/23 1130 [facility] Work Phone: 1(771) 560-218312-29-2023 Note [id number]#[id number] [facility] 10-09-2023 History and physical note Author Bobo Shields [facility] October 09, 2023 12:43pm Note Date/Time October 09, 2023 12:37pm [facility] [address] [place] [address] Psychiatry H&P Signed Patient: Lorna Deutsch MR#: [id number] : 1985 Acct:[id number] Age/Sex: 38 / F Adm Date: 3 Loc: 1S Room: [address] [place] [address] Type: ADM IN Attending Dr: Bobo Shields MD Copies to: MD Cris Murcia OUTREACH PROFESSIONAL, IDENTIFICATION PRINTING MACHINE SETTER~ Date of Service: 10/09/2023 HPI History of [...] denied current suicidality Insight: fair Judgment: fair [facility] Medical History (Updated 10/09/23 @ 00:50 [...] Turbid A Urine pH 5.5 Ur Specific [place] 1.036 H Urine Protein 100 H Urine [...] Color Urine Appearance Urine pH Ur Specific [place] Urine Protein Urine Glucose (UA) Urine Ketones [...] <Electronically signed by Bobo Shields MD> 10/09/23 1241 [facility] Work Phone: 1(995) 795-146011-17-2023 Miscellaneous Notes* Telephone Encounter - Ирина Jack [...] 30days. Nahum Jack MD Pain Medicine Fellow continuous towel roller. 08/28/23 * Telephone Encounter - Philip Mathis [...] would be sent to [facility] [place]. Please advise patient with an update. [phone] ([employer]) * Telephone Encounter - Brittany Pichardo - [...] notify patient. Brittany Pichardo [facility] Miscellaneous Notes* Telephone Encounter - Gaurav [...] Please advise. pregabalin (LYRICA) 100 mg capsule [employer] [address] [address] [facility] [phone] [id number] Patient [phone] (home) [phone] (cell) * Telephone Encounter - Philip Mathis RN - 08/27/2023 1:27 PM EST LVM for patient regarding Dr. Rodriguez's response to dog bite & pain medication. Philip Mathis RN August 27, 2023 1:27 PM * Telephone Encounter - Philip Mathis RN - 08/27/2023 11:48 AM EST Patient called & stated she recently gotten bit by a Pitbull & went to [facility] and got antibiotics but they refused [...] 27, 2023 11:49 AM documented [facility] Miscellaneous Notes* Telephone Encounter - Philip Mathis RN - 08/27/2023 11:26 AM EST Patient called & stated she recently gotten bit by a Pitbull & went to [facility] ED and got antibiotics but they refused [...] 27, 2023 11:45 AM documented [facility]23 Miscellaneous Notes* Telephone Encounter - Philip [...] notify patient. Marvin Sanchez documented [facility]-2023 Discharge summary Author Bobo Shields [facility] July 13, 2023 3:21pm Note Date/Time July 13, 2023 9: 38am [facility] [address] [place] [address] Discharge Summary Signed Patient: Lorna Deutsch MR#: [id number] : 1985 Acct:[id number] Age/Sex: 38 / F Adm Date: 3 Loc: Room: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 prescription medicine for constipation. Lifestyle Have [...] 06/25/2005 Document Revised: 01/19/2020 Document Reviewed: 10/15/2018 Hyperpia Patient Education 2019 [employer]. Follow Up Care 09/29/2022 11:32:44 With:NANCY RODRIGUEZ CNP Address: [address] [place] [address] When: Unknown [facility] 07-15-2022 Hospital Discharge instructions Patient Education 04/25/2022 [...] computer, cell phone, or tablet. Medicines Take oncm-rhf-ridhkfz and prescription medicines only as told by [...] be a hospital support group, a National [place] on Mental Illness (BERNARDO) support group, or [...] information about treatment services in your area: (2-673-LDXQPR8) U.[place]. Department of Health and Human Services mental health services: www.mentalhealth.gov National [place] on Mental Illness (BERNARDO): www.bernardo.org National [place] on Alcoholism and Drug Dependence: www.ncadd.org Contact [...] 02/12/2018 Document Revised: 11/24/2019 Document Reviewed: 02/12/2018 Hyperpia Patient Education 2020 [employer]. 04/25/2022 02:56:28 Managing Schizophrenia Managing Schizophrenia If [...] eating. Follow these instructions at home: Take mqhx-ebf-lvdfomi and prescription medicines only as told by [...] be able to find financial assistance through ymp-idd-jmbtsl organizations or with local government-based resources. If [...] schizophrenia. Where to find more information National [place] on Mental Illness: www.bernardo.org Contact a health [...] 01/28/2018 Document Revised: 01/20/2020 Document Reviewed: 01/28/2018 Hyperpia Patient Education 2020 [employer]. Follow Up Care 04/24/2022 12:58:04 With:[facility] Address:Unknown When: Unknown Comments:Call the office today to arrange further detox options. With:NANCY RODRIGUEZ Address: [address] [place] [address] Business (1) When:Within 3 Day(s) [facility]07-14-2022 Evaluation + Plan noteExtracted from: Title:ED Note [...] day(s), # 14 cap(s), Refills(s) 0, Pharmacy: [id number], 165, cm, 04/24/22 13:10:00 EDT, Height/Length Dosing, 70.8, kg, 04/24/22 13:10:00 EDT, Weight Dosing lorazepam, 2 mg = 2 tab(s), Tab, Oral, Once, Stop date 04/24/22 14:20:00 EDT, STAT, Start date 04/24/22 14:20:00 EDT, 04/24/22 14:20:00 EDT Basic Metabolic Panel Creatine Kinase Drug Screen Urine ECG 12 Lead Adult eGFR Rapid COVID Antigen ([facility]) Troponin 0 Hr. UA With Cult Reflex Urine Culture [facility] Future Appointments Appointment Date:04/02/2023 11:00:00 AM Scheduled Provider:NANCY RODRIGUEZ CNP Location:[facility] Appointment Type: Open Future Scheduled Tests Radiology* XR Knee Complete 4+ Views Left 10/02/22 * XR Elbow 3+ Views Left 10/02/22 * XR Spine Lumbosacral Minimum 4 Views 10/02/22 [facility] Evaluation + Plan note Future Appointments Appointment Date:02/05/2023 02:20:00 PM Scheduled Provider:Cris PENA CNP Location:[facility] Appointment Type: Open Appointment Date:04/02/2023 11:00:00 AM Scheduled Provider:NANCY RODRIGUEZ CNP Location:[facility] Appointment Type: Open Future Scheduled Tests Radiology* XR Knee Complete 4+ Views Left 10/02/22 * XR Elbow 3+ Views Left 10/02/22 * XR Spine Lumbosacral Minimum 4 Views 10/02/22 [facility] Evaluation noteNo assessment information available [facility] Work Phone: evaluation note* Diagnosis Onset Date Resolution Status Bipolar 1 disorder, depressed acute Hypokalemia acute Opioid use disorder acute Suicidal ideation acute UTI (urinary tract infection) acute [facility] Work Phone: Evaluation note* Diagnosis [...] pain without sciatica [facility] Anxiety- Primary Anxiety state, unspecified [facility] Diagnosis Attention deficit hyperactivity disorder [...] Date Resolution Status Bipolar disorder, unspecified acute [facility] Work Phone: Evaluation note* Diagnosis Myofascial pain syndrome Mylagia and myositis, unspecified [facility] Myofascial pain syndrome Mylagia and myositis, unspecified [facility] Onset Date Resolution Status Bipolar disorder, unspecified acute Bipolar disorder, now depressed acute Intentional overdose acute Methadone dependence acute [facility] Work Phone: Evaluation note* Diagnosis Onset Date Resolution Status Abscess of skin or subcutaneous tissue acute Bipolar 1 disorder, depressed acute Bipolar disorder, now depressed acute Intentional overdose acute Methadone dependence acute Sputum production acute Tobacco abuse acute Unspecified psychosis acute [facility] Work Phone: History and physical note Author Bobo Shields [facility] January 12, 2023 3:37pm Note Date/Time January 12, 2023 3:33 pm [facility] [address] [place] [address] Psychiatry H&P Signed Patient: Lorna Deutsch MR#: [id number] : 1985 Acct:[id number] Age/Sex: 38 / F Adm Date: 3 Loc: Room: [address] [place] [address] Type: ADM IN Attending Dr: Bobo Shields [...] Cloudy A Urine pH 6.0 Ur Specific [place] 1.020 Urine Protein Negative Urine Glucose (UA) [...] signed by Bobo Shields MD> 01/12/23 1537 [facility] Work Phone: Hospital course Narrative No data available for this section [facility] No data available for this section [facility] Additional Instructions Follow-up with your primary care doctor Return to the ED if you develop worsening symptoms or [facility] Work Phone: Hospital Discharge instructions Additional Instructions Regular diet No activity restrictionsRiverview Health Institute Work Phone: Hospital Discharge instructions Additional Instructions Important Contact Information You can call [facility] Inpatient Behavioral Health at [phone] any time day or night if you have emergent questions or question regarding discharge instructions. If at any time you are feeling an increase in your psychiatric symptoms, call your physician or behavioral healthcare provider. If any time you have thoughts of harming yourself or others contact one of the following: Call 8 (available 04/05) Crisis Text Line (available 04/05) text 4HOPE to [phone] [facility] Hope Line (available 8 a.m. 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 Latest Code Status on File Code Status [...] sciatica Procedures CONSULT TO PAIN MGT OFFICE/OUTPATIENT [facility] 60-74 MINUTES Caitlin Cheatham APRN.IDENTIFICATION PRINTING MACHINE SETTER [address] [place] [address] Referral ID Status Reason Start Date Expiration Date Visits Requested Visits Authorized [id number] Authorized PCP Requested Referral 03/16/2023 03/15/2024 1 1 Specialty Diagnoses / Procedures Referred By Contac t Referred To Contact Diagnoses Attention deficit hyperactivity disorder (ADHD), unspecified ADHD type Bipolar depression (HCC) Paranoid schizophrenia (HCC) Procedures CONSULT TO PSYCHIATRY OFFICE/OUTPATIENT [facility] 60-74 MINUTES Caitlin Cheatham APRN.IDENTIFICATION PRINTING MACHINE SETTER [address] [place] [address] Referral ID Status Reason Start Date Expiration Date Visits Requested Visits Authorized [id number] Pending Review PCP Requested Referral 03/16/2023 03/15/2024 1 1 Specialty Diagnoses / Procedures Referred By Contac t Referred To Contact Diagnoses History of abnormal cervical Pap smear Procedures CONSULT TO CHUTE TAPPER OFFICE/OUTPATIENT [facility] 60-74 MINUTES Caitlin Cheatham APRN.IDENTIFICATION PRINTING MACHINE SETTER [address] [place] [address] Referral ID Status Reason Start Date Expiration Date Visits Requested Visits Authorized [id number] Authorized PCP Requested Referral Auto-Generate d Referral 03/16/2023 03/15/2024 1 1 Additional Source Comments INFORMATION SOURCE (unrecogn ized section and content) DATE CREATED AUTHOR 05/14/2019 [facility] DATE CREATED AUTHOR AUTHOR'S ORGANIZ ATION 02/11/2021 [facility] DATE CREATED AUTHOR AUTHOR'S ORGANIZ ATION 01/16/2023 [facility] DATE CREATED AUTHOR AUTHOR'S ORGANIZ ATION 05/17/2023 [facility] DATE CREATED AUTHOR AUTHOR'S ORGANIZ ATION 06/13/2023 [facility] DATE CREATED AUTHOR AUTHOR'S ORGANIZ ATION 09/01/2023 [facility] DATE CREATED AUTHOR AUTHOR'S ORGANIZ ATION 11/06/2023 [facility] DATE CREATED AUTHOR AUTHOR'S ORGANIZ ATION [facility]/30/20[facility] (unrecognized sect ion and content) Team Status: Active Member Role Status Dates Cris Pena APRN INTEGRATION SOLUTION ARCHITECT-C Primary Care Provider Active Team Status: Inactive Member Role Status Dates Rachael Reyes DO Emergency Provider Active Cris Pena APRN INTEGRATION SOLUTION ARCHITECT-C Primary Care Provider Active Team Status: Inactive Member Role Status Dates Cris Pena APRN INTEGRATION SOLUTION ARCHITECT-C Primary Care Provider Active Nito Walton DO Emergency Provider Active Team Status: Active Member Role Status Dates Cris Pena APRN INTEGRATION SOLUTION ARCHITECT-C Primary Care Provider Active Jose Moses DO Emergency Provider Active Bobo Shields MD Admit Provider, Attending Provider Active Team Status: Inactive Member Role Status Dates Rachael Reyes DO Emergency Provider Active Nancy Rodriguez , INTEGRATION SOLUTION ARCHITECT-C Primary Care Provider Active Team Status: Active Member Role Status Dates Nancy Rodriguez INTEGRATION SOLUTION ARCHITECT-C Primary Care Provider Active Team Status: Inactive Member Role Status Dates Cris Pena APRN INTEGRATION SOLUTION ARCHITECT-C Primary Care Provider Active Jose Moses DO Emergency Provider Active Bobo Shields MD Admit Provider, Attending Provider Active Team Status: Inactive Member Role Status Dates Cris Pena APRN INTEGRATION SOLUTION ARCHITECT-C Primary Care Provider Active Farhad Landon MD Emergency Provider Active Accounts Payable Clerk Relationship Specialty Start Date End Date Caitlin Cheatham APRN.IDENTIFICATION PRINTING MACHINE SETTER [address] [place] [address] PCP - General Internal Medicine 03/16/23 Accounts Payable Clerk Relationship Specialty Start Date End Date Randal coronelina, OUTREACH PROFESSIONAL.IDENTIFICATION PRINTING MACHINE SETTER [address] [place] [address] PCP - General Internal Medicine 03/16/23 Accounts Payable Clerk Relationship Specialty Start Date End Date RandalCaitlin, OUTREACH PROFESSIONAL.IDENTIFICATION PRINTING MACHINE SETTER [address] [place] [address] PCP - General Internal Medicine 03/16/23 Accounts Payable Clerk Relationship Specialty Start Date End Date , OUTREACH PROFESSIONAL.IDENTIFICATION PRINTING MACHINE SETTER [address] [place] [address] PCP - General Internal Medicine 03/16/23 Team Status: Active Member Role Status Dates NON STAFF Primary Care Provider Active Team Status: Inactive Member Role Status Dates Cris Pena APRN INTEGRATION SOLUTION ARCHITECT-C Primary Care Provider Active Leonard Salazar DO Emergency Provider Active Team Status: Inactive Member Role Status Dates Cris Pena APRN INTEGRATION SOLUTION ARCHITECT-C Primary Care Provider Active Rachael Reyes DO Emergency Provider Active Team Status: Inactive Member Role Status Dates NON STAFF Primary Care Provider Active Rachael Reyes DO Emergency Provider Active Team Status: Inactive Member Role Status Dates NON STAFF Primary Care Provider Active Eriberto Sheppard PA-C Emergency Provider Active Accounts Payable Clerk Relationship Specialty Start Date End Date RandalCaitlin, OUTREACH PROFESSIONAL.IDENTIFICATION PRINTING MACHINE SETTER [address] [place] [address] PCP - General Internal Medicine 03/16/23 Accounts Payable Clerk Relationship Specialty Start Date End Date RandalCaitlin, OUTREACH PROFESSIONAL.IDENTIFICATION PRINTING MACHINE SETTER [address] [place] [address] PCP - General Internal Medicine 03/16/23 Team Status: Inactive Member Role Status Dates NON STAFF Primary Care Provider Active Luis Armando Hendrix MD Emergency Provider Active Team Status: Inactive Member Role Status Dates NON STAFF Primary Care Provider Active Bobo Shields MD Admit Provider, Attending Provider Active Team Status: Active Member Role Status Dates Cris Pena OUTREACH PROFESSIONAL INTEGRATION SOLUTION ARCHITECT-C Primary Care Provider Active Claudio Dee MD Attending Provider Active Team Status: Active Member Role Status Dates Cris SolisRUIZ camp INTEGRATION SOLUTION ARCHITECT-C Primary Care Provider Active Chucky Dueñas Jr, MD Emergency Provider Active Bobo Shields MD Admit Provider, Attending Provider Active Team Status: Inactive Member Role Status Dates Cris Pena , OUTREACH PROFESSIONAL INTEGRATION SOLUTION ARCHITECT-C Primary Care Provider Active Chucky Dueñas Jr, [...] or prosecute any alcohol or drug abuse patient.[facility] the event this information is protected by the Federal Confidentiality of Alcohol and Drug Abuse Patient Records regulations: The Federal rules restrict any use of the information to criminally investigate or prosecute any alcohol or drug abuse patient.[facility] HospitalIn the event this information is protected by the Federal Confidentiality of Alcohol and Drug Abuse Patient Records regulations: The Federal rules restrict any use of the information to criminally investigate or prosecute any alcohol or drug abuse patient.[facility] HospitalIn the event this information is protected by the Federal Confidentiality of Alcohol and Drug Abuse Patient Records regulations: The Federal rules restrict any use of the information to criminally investigate or prosecute any alcohol or drug abuse patient.[facility] HospitalIn the event this information is protected by the Federal Confidentiality of Alcohol and Drug Abuse Patient Records regulations: The Federal rules restrict any use of the information to criminally investigate or prosecute any alcohol or drug abuse patient.[facility] HospitalIn the event this information is protected by the Federal Confidentiality of Alcohol and Drug Abuse Patient Records regulations: The Federal rules restrict any use of the information to criminally investigate or prosecute any alcohol or drug abuse patient.[facility] HospitalIn the event this information is protected by the Federal Confidentiality of Alcohol and Drug Abuse Patient Records regulations: The Federal rules restrict any use of the information to criminally investigate or prosecute any alcohol or drug abuse patient.[facility] HospitalIn the event this information is protected by the Federal Confidentiality of Alcohol and Drug Abuse Patient Records regulations: The Federal rules restrict any use of the information to criminally investigate or prosecute any alcohol or drug abuse patient.[facility] HospitalIn the event this information is protected by the Federal Confidentiality of Alcohol and Drug Abuse Patient Records regulations: The Federal rules restrict any use of the information to criminally investigate or prosecute any alcohol or drug abuse patient.[facility] HospitalIn the event this information is protected by the Federal Confidentiality of Alcohol and Drug Abuse Patient Records regulations: The Federal rules restrict any use of the information to criminally investigate or prosecute any alcohol or drug abuse patient.[facility] HospitalIn the event this information is protected by the Federal Confidentiality of Alcohol and Drug Abuse Patient Records regulations: The Federal rules restrict any use of the information to criminally investigate or prosecute any alcohol or drug abuse patient.[facility] HospitalIn the event this information is protected by the Federal Confidentiality of Alcohol and Drug Abuse Patient Records regulations: The Federal rules restrict any use of the information to criminally investigate or prosecute any alcohol or drug abuse patient.[facility] HospitalIn the event this information is protected by the Federal Confidentiality of Alcohol and Drug Abuse Patient Records regulations: The Federal rules restrict any use of the information to criminally investigate or prosecute any alcohol or drug abuse patient.[facility] HospitalIn the event this information is protected by the Federal Confidentiality of Alcohol and Drug Abuse Patient Records regulations: The Federal rules restrict any use of the information to criminally investigate or prosecute any alcohol or drug abuse patient.[facility] HospitalIn the event this information is protected by the Federal Confidentiality of Alcohol and Drug Abuse Patient Records regulations: The Federal rules restrict any use of the information to criminally investigate or prosecute any alcohol or drug abuse patient.[facility] HospitalIn the event this information is protected by the Federal Confidentiality of Alcohol and Drug Abuse Patient Records regulations: The Federal rules restrict any use of the information to criminally investigate or prosecute any alcohol or drug abuse patient.[facility] Reason for Visit (unrecogniz ed section [...] BE BASED ON THE PRIMARY CLINICAL RECORDS. [facility] [employer] [facility]. provides no warranty or guarantee of the accuracy or completeness of information in this document.
--- NOTE | 2023-12-01 01:32 | ED.ABDPAIN1 ---
HPI - Abdominal Pain General Chief Complaint: Abdominal Pain Stated Complaint: ABD PAIN Time Seen by Provider: 12/01/23 01:26 Source: patient Mode of arrival: walk-in Limitations: no limitations History of Present Illness HPI narrative: almost immediately after being discharged, the patient demanded to be signed in again, concerned that she has appendicitis. Despite explaining to her that she has influenza, which accounts for her symtpms, she refuses to leave until we get a CT scan of the abdomen and pelvis. Related Data Home Medications Medication Instructions Recorded Confirmed albuterol sulfate 90 mcg/actuation 2 puff inhalation Q6H PRN 07/02/23 12/01/23 aerosol inhaler shortness of breath or wheezing methadone 5 mg/5 mL oral solution 130 mg PO QDAY 07/02/23 11/21/23 pregabalin 100 mg capsule 100 mg PO Q8H 07/02/23 12/01/23 quetiapine 25 mg tablet 50 mg PO QDAY 09/09/23 12/01/23 albuterol sulfate 2.5 mg/3 mL mg 09/29/23 (0.083 %) solution for nebulization atomoxetine 25 mg capsule 25 mg PO DAILY 11/21/23 12/01/23 buprenorphine 8 mg-naloxone 2 mg 1 film sublingual DAILY 11/21/23 11/21/23 sublingual film bupropion HCl 300 mg 24 hr tablet, 300 mg PO DAILY 11/21/23 12/01/23 extended release duloxetine 30 mg capsule,delayed 30 mg PO .dailly 11/21/23 12/01/23 release bupropion HCl 450 mg 24 hr tablet, 450 mg PO DAILY 12/01/23 12/01/23 extended release docusate sodium 100 mg capsule 100 mg PO DAILY 12/01/23 12/01/23 duloxetine 60 mg capsule,delayed 60 mg PO DAILY 12/01/23 12/01/23 release hydroxyzine HCl 50 mg tablet 50 mg PO DAILY 12/01/23 12/01/23 melatonin 10 mg tablet 10 mg PO DAILY 12/01/23 12/01/23 oxcarbazepine 150 mg tablet 150 mg PO DAILY 12/01/23 12/01/23 oxcarbazepine 300 mg tablet 300 mg PO BID 12/01/23 12/01/23 quetiapine 200 mg tablet 200 mg PO DAILY 12/01/23 12/01/23 quetiapine 300 mg tablet 300 mg PO DAILY 12/01/23 12/01/23 trazodone 50 mg tablet 50 mg PO DAILY 12/01/23 12/01/23 Previous Rx's Medication Instructions Recorded hyoscyamine sulfate 0.125 mg 0.125 mg PO Q6H PRN abdominal pain 12/01/23 sublingual tablet (Levsin/SL) #20 tabs ondansetron 4 mg disintegrating 4 mg PO Q6H PRN nausea and 12/01/23 tablet vomiting #14 tabs oseltamivir 75 mg capsule (Tamiflu) 75 mg PO BID 5 days #10 caps 12/01/23 Allergies Allergy/AdvReac Type Severity Reaction Status Date / Time No Known Drug Allergies Allergy Verified 09/29/23 23:12 [facility] Social History Smoking status: Current every day smoker Exam Narrative Exam Narrative: Nurses notes and vital signs reviewed and patient is not hypoxic. afebrile but temp 99.9F General: Well-appearing and in no apparent distress. Skin: Warm, dry, no pallor noted. No rash. Eye: Pupils are equal, round and EOMI. No scleral icterus. Cardiovascular: Regular Rate and Rhythm without murmur, gallop or rub. Respiratory: No accessory muscle use or respiratory distress. Lungs are clear to auscultation, no wheezing, rales or rhonchi GI: Abdomen is soft, non-distended. Normal bowel sounds. No masses appreciated. No RLQ tenderness to palpation. Negative Rovsing's. No rebound, guarding, or rigidity noted. Neurological: A&O x4. No cranial nerve dysfunction observed. No truncal ataxia. Moves all extremities. Sensation intact. Psychiatric: Cooperative and interactive. Normal mood and affect. Constitutional Vital Signs, click to edit/add: Last Vital Signs Temp 99.9 F 12/01/23 01:27 Pulse 67 12/01/23 01:27 Resp 18 12/01/23 01:27 BP 97/58 12/01/23 01:27 Pulse Ox 99 12/01/23 01:27 O2 Del Method Room Air 12/01/23 01:27 Course Vital Signs Vital signs: Vital Signs Temperature 99.9 F 12/01/23 01:27 Pulse Rate 67 12/01/23 01:27 Respiratory Rate 18 12/01/23 01:27 Blood Pressure 97/58 12/01/23 01:27 Pulse Oximetry 99 12/01/23 01:27 Oxygen Delivery Method Room Air 12/01/23 01:27 Temperature 99.9 F 12/01/23 01:27 Pulse Rate 67 12/01/23 01:27 Respiratory Rate 18 12/01/23 01:27 Blood Pressure 97/58 12/01/23 01:27 Pulse Oximetry 99 12/01/23 01:27 Oxygen Delivery Method Room Air 12/01/23 01:27 MDM - Abdominal Pain MDM Narrative Medical decision making narrative: Patient sent for non-contrast CT abd & pelvis. Normal appendix. Left ovarian cyst measuring 6cm x 3cm identified. She is not tender there. She will be referred to [facility]ING [facility]ACH[facility]PERATOR for follow up. She has already been prescribed zofran and levsin for her GI symptoms and Tamiflu for her Influenza infection. Imaging Data CT scan - abdomen: Radiologist's impression: ITS Impressions Abdomen/Pelvis CT 12/01/23 01:31 IMPRESSION: Mildly complex septated cyst in the left ovary, likely ovarian. This extends 6.4 cm x 3.1 cm. Mean attenuation value is 12 Hounsfield units. Probable functional ovarian cyst. If symptomatic, correlation with pelvic ultrasound, otherwise suspected a benign physiologic. Scattered colonic stool as discussed. Correlate for constipation. No additional significant findings. Electronically authenticated by: MAC RIVERA Date: 12/01/2023 03:11 Discharge Plan Discharge Chief Complaint: Abdominal Pain Clinical Impression: Influenza A, Acute viral syndrome, Cyst of left ovary Patient Disposition: Home, Self-Care Time of Disposition Decision: 03:25 Prescriptions / Home Meds: No Action pregabalin 100 mg capsule 100 mg PO Q8H albuterol sulfate 90 mcg/actuation HFA aerosol inhaler 2 puff INHALATION Q6H PRN (Reason: shortness of breath or wheezing) methadone 5 mg/5 mL solution 130 mg PO QDAY Hold Instructions: dc albuterol sulfate 2.5 mg /3 mL (0.083 %) solution for nebulization Hold Instructions: dc quetiapine 25 mg tablet 50 mg PO QDAY Rx Instructions: 2pm duloxetine 30 mg capsule,delayed release(DR/EC) 30 mg PO .ashleigh Patient Comments: 30mg in morning 60mg at night atomoxetine 25 mg capsule 25 mg PO DAILY buprenorphine-naloxone 8-2 mg film 1 film sublingual DAILY Patient Comments: 2 in the morning and 1 at night bupropion HCl 300 mg tablet extended release 24 hr 300 mg PO DAILY bupropion HCl 450 mg tablet extended release 24 hr 450 mg PO DAILY docusate sodium 100 mg capsule 100 mg PO DAILY duloxetine 60 mg capsule,delayed release(DR/EC) 60 mg PO DAILY hydroxyzine HCl 50 mg tablet 50 mg PO DAILY melatonin 10 mg tablet 10 mg PO DAILY oxcarbazepine 300 mg tablet 300 mg PO BID oxcarbazepine 150 mg tablet 150 mg PO DAILY quetiapine 200 mg tablet 200 mg PO DAILY quetiapine 300 mg tablet 300 mg PO DAILY trazodone 50 mg tablet 50 mg PO DAILY hyoscyamine sulfate [Levsin/SL] 0.125 mg tablet, sublingual 0.125 mg PO Q6H PRN (Reason: abdominal pain) Qty: 20 0RF ondansetron 4 mg tablet,disintegrating 4 mg PO Q6H PRN (Reason: nausea and vomiting) Qty: 14 0RF oseltamivir [Tamiflu] 75 mg capsule 75 mg PO BID 5 Days Qty: 10 0RF Instructions: Influenza (ED), Viral Syndrome (ED), Ovarian Cyst (ED) Stand Alone Forms: Portal Instructions Referrals: RAHEL THORNTON [Primary Care Provider] - 1 week Marshall Mejía DO [Physician] - As soon as possible
[2023-12-01 03:30] VITALS: BP 100/66; PULSE 90; RESP 18; O2SAT 98
== END 2023-12-01 03:30 | disposition home or self-care (01) ==
PROVIDERS: Emergency Provider Emergency Medicine; PCP Nurse Practitioner Family
DX: N83.292 Other ovarian cyst, left side (principal); J10.1 Influenza due to other identified influenza virus with other respiratory manifestations; Z79.899 Other long term (current) drug therapy; F17.200 Nicotine dependence, unspecified, uncomplicated
CPT/HCPCS: 74176; 99284

== ENCOUNTER 2023-12-09 16:56 | Emergency (ER) | payer OTHER, SELFPAY ==
[2023-12-09 16:59] VITALS: BP 127/83; PULSE 110; RESP 18; TEMP 36.7; O2SAT 98; BMI 27.8
--- NOTE | 2023-12-09 17:37 | ED_ITS ---
HPI - General Adult General Chief complaint: Upper Respiratory Infection Stated complaint: URTI Time Seen by Provider: 12/09/23 17:04 Source: patient Mode of arrival: walk-in Limitations: no limitations History of Present Illness HPI narrative: Patient is a 38-year-old female who is presenting to the ER today with flulike symptoms for the past 2 to 3 days. Patient says she needs prednisone and breathing treatments. Patient also did breathing treatments prior to arrival, she did 8 separate albuterol inhaler puffs prior to arrival because she was told by another healthcare provider that that is similar to doing a breathing treatment. Patient is very jittery, anxious, slightly tachycardic, heart rate of 110. Albuterol inhalers were done just prior to arrival. Patient is a smoker. She has no headache or neck pain. No nausea, vomiting, mild myalgia and arthralgia. 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 Patient sees a nurse practitioner in Dr. Herrera's office. No sick contacts that patient is aware of. All systems are negative except as noted/marked. All systems reviewed and otherwise negative. Nurses note and vital signs reviewed and patient is not hypoxic. General: The patient appears well and in no apparent distress. Patient is resting comfortably on cart. Patient is not toxic, lethargic, or listless Skin: Warm, dry, no pallor noted. There is no rash noted. No petechiae, purpura. Head: Normocephalic, atraumatic Eye: Normal conjunctiva, no drainage, EOMI. PERRL Ears, Nose, Mouth, and Throat: oral mucosa is moist. Nares patent. Mouth without vesicles. Cardiovascular: Slightly increased regular Rate and Rhythm, no murmur, gallop, rub Respiratory: Patient is in no distress, no accessory muscle use, lungs are faint diffuse wheezing, no rhonchi, crackles, or rales. Back: non-tender, GI: no tenderness Musculoskeletal: Patient has full range of motion of all of the extremities, no motor, sensory, or focal neurological deficits Neurological: A&O x4, normal speech, patient is speaking in full sentences without difficulty. Psychiatric: Cooperative Related Data Home Medications Medication Instructions Recorded Confirmed albuterol sulfate 90 mcg/actuation 2 puff inhalation Q6H PRN 07/02/23 12/01/23 aerosol inhaler shortness of breath or wheezing methadone 5 mg/5 mL oral solution 130 mg PO QDAY 07/02/23 11/21/23 pregabalin 100 mg capsule 100 mg PO Q8H 07/02/23 12/01/23 quetiapine 25 mg tablet 50 mg PO QDAY 09/09/23 12/01/23 albuterol sulfate 2.5 mg/3 mL mg 09/29/23 (0.083 %) solution for nebulization atomoxetine 25 mg capsule 25 mg PO DAILY 11/21/23 12/01/23 buprenorphine 8 mg-naloxone 2 mg 1 film sublingual DAILY 11/21/23 11/21/23 sublingual film bupropion HCl 300 mg 24 hr tablet, 300 mg PO DAILY 11/21/23 12/01/23 extended release duloxetine 30 mg capsule,delayed 30 mg PO .dailly 11/21/23 12/01/23 release bupropion HCl 450 mg 24 hr tablet, 450 mg PO DAILY 12/01/23 12/01/23 extended release docusate sodium 100 mg capsule 100 mg PO DAILY 12/01/23 12/01/23 duloxetine 60 mg capsule,delayed 60 mg PO DAILY 12/01/23 12/01/23 release hydroxyzine HCl 50 mg tablet 50 mg PO DAILY 12/01/23 12/01/23 melatonin 10 mg tablet 10 mg PO DAILY 12/01/23 12/01/23 oxcarbazepine 150 mg tablet 150 mg PO DAILY 12/01/23 12/01/23 oxcarbazepine 300 mg tablet 300 mg PO BID 12/01/23 12/01/23 quetiapine 200 mg tablet 200 mg PO DAILY 12/01/23 12/01/23 quetiapine 300 mg tablet 300 mg PO DAILY 12/01/23 12/01/23 trazodone 50 mg tablet 50 mg PO DAILY 12/01/23 12/01/23 Previous Rx's Medication Instructions Recorded hyoscyamine sulfate 0.125 mg 0.125 mg PO Q6H PRN abdominal pain 12/01/23 sublingual tablet (Levsin/SL) #20 tabs ondansetron 4 mg disintegrating 4 mg PO Q6H PRN nausea and 12/01/23 tablet vomiting #14 tabs oseltamivir 75 mg capsule (Tamiflu) 75 mg PO BID 5 days #10 caps 12/01/23 Allergies Allergy/AdvReac Type Severity Reaction Status Date / Time No Known Drug Allergies Allergy Verified 09/29/23 23:12 [facility] Social History Smoking status: Current every day smoker Exam Constitutional Vital Signs, click to edit/add: Last Vital Signs Temp 98.1 F 12/09/23 16:59 Pulse 110 H 12/09/23 16:59 Resp 18 12/09/23 16:59 BP 127/83 12/09/23 16:59 Pulse Ox 98 12/09/23 16:59 Course Vital Signs Vital signs: Vital Signs Temperature 98.1 F 12/09/23 16:59 Pulse Rate 110 H 12/09/23 16:59 Respiratory Rate 18 12/09/23 16:59 Blood Pressure 127/83 12/09/23 16:59 Pulse Oximetry 98 12/09/23 16:59 Temperature 98.1 F 12/09/23 16:59 Pulse Rate 110 H 12/09/23 16:59 Respiratory Rate 18 12/09/23 16:59 Blood Pressure 127/83 12/09/23 16:59 Pulse Oximetry 98 12/09/23 16:59 Medical Decision Making MDM Narrative Medical decision making narrative: Patient has diffuse wheezing, not significant. No respiratory distress. Not hypoxic. Patient was told she does not need another breathing treatment this time, she just did 8 albuterol inhalers prior to arrival and she is jittery and shaking from that. Patient became very quickly and extremely upset, demanding that she needs a breathing treatment and she needs steroids. I educated patient that he can only be on steroids 2-3 times a year, there is no acute indication for being on steroids since she is only been sick for 2 or 3 days. I attempted education on tobacco abuse and tobacco cessation and vaping, patient was very upset and did not want to listen to that. Patient again demanded that she knows her body needs steroids and breathing treatment. I attempted to educate patient there is no acute indication for steroids every single time she is sick and she does not need a breathing treatment at this time. I told patient she needs a follow-up with concrete wall grinder operator, she was referred to Dr. Parkinson. Patient was upset, told me that she is going to tell her doctor that I refused to treat her. Patient was given discharge papers appropriately. Patient left the room at discharge yelling obscenities multiple times, then going out to registration and telling registration that she was going to radha everybody she will be going to [facility]. Patient then sat in the lobby for a length of time for unknown reason. Patient is in no respiratory distress, no acute indication for imaging, breathing treatments, steroids, or lab work at this time. Discharge Plan Discharge Chief Complaint: Upper Respiratory Infection Clinical Impression: RAD (reactive airway disease), Flu-like symptoms, Tobacco abuse, Bronchitis Patient Disposition: Home, Self-Care Time of Disposition Decision: 17:10 Condition: Fair Prescriptions / Home Meds: No Action pregabalin 100 mg capsule 100 mg PO Q8H albuterol sulfate 90 mcg/actuation HFA aerosol inhaler 2 puff INHALATION Q6H PRN (Reason: shortness of breath or wheezing) methadone 5 mg/5 mL solution 130 mg PO QDAY Hold Instructions: dc albuterol sulfate 2.5 mg /3 mL (0.083 %) solution for nebulization Hold Instructions: dc quetiapine 25 mg tablet 50 mg PO QDAY Rx Instructions: 2pm duloxetine 30 mg capsule,delayed release(DR/EC) 30 mg PO .ashleigh Patient Comments: 30mg in morning 60mg at night atomoxetine 25 mg capsule 25 mg PO DAILY buprenorphine-naloxone 8-2 mg film 1 film sublingual DAILY Patient Comments: 2 in the morning and 1 at night bupropion HCl 300 mg tablet extended release 24 hr 300 mg PO DAILY bupropion HCl 450 mg tablet extended release 24 hr 450 mg PO DAILY docusate sodium 100 mg capsule 100 mg PO DAILY duloxetine 60 mg capsule,delayed release(DR/EC) 60 mg PO DAILY hydroxyzine HCl 50 mg tablet 50 mg PO DAILY melatonin 10 mg tablet 10 mg PO DAILY oxcarbazepine 300 mg tablet 300 mg PO BID oxcarbazepine 150 mg tablet 150 mg PO DAILY quetiapine 200 mg tablet 200 mg PO DAILY quetiapine 300 mg tablet 300 mg PO DAILY trazodone 50 mg tablet 50 mg PO DAILY hyoscyamine sulfate [Levsin/SL] 0.125 mg tablet, sublingual 0.125 mg PO Q6H PRN (Reason: abdominal pain) Qty: 20 0RF ondansetron 4 mg tablet,disintegrating 4 mg PO Q6H PRN (Reason: nausea and vomiting) Qty: 14 0RF oseltamivir [Tamiflu] 75 mg capsule 75 mg PO BID 5 Days Qty: 10 0RF Instructions: How to Stop Smoking (ED), Chronic Bronchitis (ED), How Your Lungs Work (ED) Additional Instructions: You are to use 2 puffs of your albuterol inhaler every 4 hours. Increase fluids at home, Gatorade, Powerade, or water. Alternate using DayQuil, NyQuil, and Flonase. At Mucinex as well as needed. Alternate Tylenol and Motrin every 4 hours to help with fever control, body aches or joint pain. Use [id number] vitamin C, vitamin D3, and zinc to help fight infection and help with her immune system. There is no acute indication for prednisone or steroids at this time. You took 8 albuterol breathing treatments prior to arrival, you are not hypoxic, There is no acute indication for breathing treatment at this time. You are referred to Dr. Parkinson to help with long-term pulmonology care Stand Alone Forms: Portal Instructions Referrals: RAHEL THORNTON [Primary Care Provider] - 1 week Rikki Parkinson DO [Physician] - 1 week Discharge Date/Time: 12/09/23 17:17
== END 2023-12-09 17:17 | disposition home or self-care (01) ==
PROVIDERS: Emergency Provider Emergency Medicine; PCP Nurse Practitioner Family
DX: J45.909 Unspecified asthma, uncomplicated (principal); F17.210 Nicotine dependence, cigarettes, uncomplicated; Z79.899 Other long term (current) drug therapy
CPT/HCPCS: 99281

== ENCOUNTER 2024-02-10 21:48 | Emergency (ER) | payer OTHER, SELFPAY ==
[2024-02-10 21:52] VITALS: BP 126/79; PULSE 84; TEMP 36.8; O2SAT 100; BMI 23.3
--- NOTE | 2024-02-10 22:10 | ED.ANXIETY1 ---
HPI - Anxiety General Chief Complaint: Anxiety Stated Complaint: Anxiety Time Seen by Provider: 02/10/24 22:01 Source: patient Mode of arrival: walk-in Limitations: no limitations History of Present Illness HPI narrative: 39-year-old female presents for anxiety. She has run out of her Klonopin and she states her physician is not available to her but will be in 5 days. She is not suicidal and has no physical complaints. She ran out today. Related Data Home Medications ?Medication ?Instructions ?Recorded ?Confirmed albuterol sulfate 90 mcg/actuation 2 puff inhalation Q6H PRN 07/02/23 12/01/23 aerosol inhaler shortness of breath or wheezing methadone 5 mg/5 mL oral solution 130 mg PO QDAY 07/02/23 11/21/23 pregabalin 100 mg capsule 100 mg PO Q8H 07/02/23 12/01/23 quetiapine 25 mg tablet 50 mg PO QDAY 09/09/23 12/01/23 albuterol sulfate 2.5 mg/3 mL mg 09/29/23 (0.083 %) solution for nebulization atomoxetine 25 mg capsule 25 mg PO DAILY 11/21/23 12/01/23 buprenorphine 8 mg-naloxone 2 mg 1 film sublingual DAILY 11/21/23 11/21/23 sublingual film bupropion HCl 300 mg 24 hr tablet, 300 mg PO DAILY 11/21/23 12/01/23 extended release duloxetine 30 mg capsule,delayed 30 mg PO .dailly 11/21/23 12/01/23 release bupropion HCl 450 mg 24 hr tablet, 450 mg PO DAILY 12/01/23 12/01/23 extended release docusate sodium 100 mg capsule 100 mg PO DAILY 12/01/23 12/01/23 duloxetine 60 mg capsule,delayed 60 mg PO DAILY 12/01/23 12/01/23 release hydroxyzine HCl 50 mg tablet 50 mg PO DAILY 12/01/23 12/01/23 melatonin 10 mg tablet 10 mg PO DAILY 12/01/23 12/01/23 oxcarbazepine 150 mg tablet 150 mg PO DAILY 12/01/23 12/01/23 oxcarbazepine 300 mg tablet 300 mg PO BID 12/01/23 12/01/23 quetiapine 200 mg tablet 200 mg PO DAILY 12/01/23 12/01/23 quetiapine 300 mg tablet 300 mg PO DAILY 12/01/23 12/01/23 trazodone 50 mg tablet 50 mg PO DAILY 12/01/23 12/01/23 Previous Rx's ?Medication ?Instructions ?Recorded hyoscyamine sulfate 0.125 mg 0.125 mg PO Q6H PRN abdominal pain 12/01/23 sublingual tablet (Levsin/SL) #20 tabs ondansetron 4 mg disintegrating 4 mg PO Q6H PRN nausea and 12/01/23 tablet vomiting #14 tabs oseltamivir 75 mg capsule (Tamiflu) 75 mg PO BID 5 days #10 caps 12/01/23 clonazepam 1 mg tablet (Klonopin) 1 mg PO Q8H #15 tabs 02/10/24 Allergies Allergy/AdvReac Type Severity Reaction Status Date / Time No Known Drug Allergies Allergy Verified 09/29/23 23:12 Review of Systems ROS Narrative A ten point review of systems is negative except as noted above. PFSH PFS Social History Smoking status: Current every day smoker Exam Narrative Exam Narrative: Nurses note and vital signs reviewed and patient is not hypoxic. General: The patient appears well and in no apparent distress. Patient is resting comfortably on cart. Skin: Warm, dry, no pallor noted. There is no rash noted. Head: Normocephalic, atraumatic Eye: Normal conjunctiva, no drainage Ears, Nose, Mouth, and Throat: oral mucosa is moist. Nares patent. Cardiovascular: Regular Rate and Rhythm Respiratory: Patient is in no distress, no accessory muscle use, lungs are clear to auscultation, no wheezing, rales or rhonchi Back: non-tender GI: Soft and nontender Musculoskeletal: The patient has no evidence of calf tenderness, no pitting edema, symmetrical pulses noted bilaterally Neurological: A&O, normal speech Psychiatric: Cooperative Constitutional Vital Signs, click to edit/add: Last Vital Signs Temp 98.2 F 02/10/24 21:52 Pulse 84 02/10/24 21:52 Resp 18 02/10/24 21:52 BP 126/79 02/10/24 21:52 Pulse Ox 100 02/10/24 21:52 O2 Del Method Room Air 02/10/24 21:52 Course Vital Signs Vital signs: Vital Signs Temperature 98.2 F 02/10/24 21:52 Pulse Rate 84 02/10/24 21:52 Respiratory Rate 18 02/10/24 21:52 Blood Pressure 126/79 02/10/24 21:52 Pulse Oximetry 100 02/10/24 21:52 Oxygen Delivery Method Room Air 02/10/24 21:52 Temperature 98.2 F 02/10/24 21:52 Pulse Rate 84 02/10/24 21:52 Respiratory Rate 18 02/10/24 21:52 Blood Pressure 126/79 02/10/24 21:52 Pulse Oximetry 100 02/10/24 21:52 Oxygen Delivery Method Room Air 02/10/24 21:52 MDM - Anxiety MDM Narrative Medical decision making narrative: She was given a single Klonopin here and prescribed 15 tablets. Follow-up with PCP. Treatment diagnosis and follow-up were discussed with the patient. Discharge Plan Discharge Stand Alone Forms: Portal Instructions Chief Complaint: Anxiety Clinical Impression: Medication refill Patient Disposition: Home, Self-Care Time of Disposition Decision: 22:05 Condition: Good Mode of Transportation: Private Vehicle Prescriptions / Home Meds: New clonazepam [Klonopin] 1 mg tablet 1 mg PO Q8H Qty: 15 0RF No Action pregabalin 100 mg capsule 100 mg PO Q8H albuterol sulfate 90 mcg/actuation HFA aerosol inhaler 2 puff INHALATION Q6H PRN (Reason: shortness of breath or wheezing) methadone 5 mg/5 mL solution 130 mg PO QDAY Hold Instructions: dc albuterol sulfate 2.5 mg /3 mL (0.083 %) solution for nebulization Hold Instructions: dc quetiapine 25 mg tablet 50 mg PO QDAY Rx Instructions: 2pm duloxetine 30 mg capsule,delayed release(DR/EC) 30 mg PO zachariah Patient Comments: 30mg in morning 60mg at night atomoxetine 25 mg capsule 25 mg PO DAILY buprenorphine-naloxone 8-2 mg film 1 film sublingual DAILY Patient Comments: 2 in the morning and 1 at night bupropion HCl 300 mg tablet extended release 24 hr 300 mg PO DAILY bupropion HCl 450 mg tablet extended release 24 hr 450 mg PO DAILY docusate sodium 100 mg capsule 100 mg PO DAILY duloxetine 60 mg capsule,delayed release(DR/EC) 60 mg PO DAILY hydroxyzine HCl 50 mg tablet 50 mg PO DAILY melatonin 10 mg tablet 10 mg PO DAILY oxcarbazepine 300 mg tablet 300 mg PO BID oxcarbazepine 150 mg tablet 150 mg PO DAILY quetiapine 200 mg tablet 200 mg PO DAILY quetiapine 300 mg tablet 300 mg PO DAILY trazodone 50 mg tablet 50 mg PO DAILY hyoscyamine sulfate [Levsin/SL] 0.125 mg tablet, sublingual 0.125 mg PO Q6H PRN (Reason: abdominal pain) Qty: 20 0RF ondansetron 4 mg tablet,disintegrating 4 mg PO Q6H PRN (Reason: nausea and vomiting) Qty: 14 0RF oseltamivir [Tamiflu] 75 mg capsule 75 mg PO BID 5 Days Qty: 10 0RF Print Language: Pashto Instructions: Medicine Refill (ED) Referrals: RAHEL THORNTON [Primary Care Provider] - 1 week
--- OUTSIDE RECORDS SUMMARY | 2024-02-10 22:10 | XMS_ITS | CCD ---
Author Organization [facility] Care Team Providers Care Interventional Neuroradiologist Name Role Phone Unavailable Primary Care Provider UnavailJOSE Scuhlz Referring Unavailable PARINJA, BRET Attending Unavailable PARINJA, BRET Admitting Unavailable TEAGAN, CON S Consulting Unavailable DYLAN REYES Consulting Unavailable ANGELICA NEWMAN Consulting Unavailable PARINJA, BRET Admitting Unavailable PARINJA, BRET Attending Unavailable TEAGAN, CON S Consulting Unavailable NANCY RODRIGUEZ Primary Care Physician [phone] Jeanna Medina Unavailable Unavailable DO Zain Reyes Emergency Provider [phone] ERNESTINE Rodriguez Primary Care Provider Cris PENA Primary Care Physician [phone] DO Zain Reyes Emergency Provider [phone] RUIZ Pena Primary Care Provider [phone] DO Nito Walton Emergency Provider [phone] DO Zain Reyes Emergency Provider [phone] RUIZ Pena Primary Care Provider DO Nito Walton Emergency Provider [phone] DO Jose Moses Emergency Provider [phone] MD Won Shieldsmi Admit Provider MD Bobo Shields Attending Provider [phone] MISC, DR AGARWAL Primary Care Unavailable JANET [...] Unavailable SOPHY, DR STACI Medina Admitting Unavailable MISC, DR AGARWAL Primary Care Unavailable ALBINA BRODERICK Consulting Unavailable MISC, DR AGARWAL Primary Care Unavailable CARTER, VIVIAN Admitting Unavailable CARTER, VIVIAN Attending Unavailable CARTER, VIVIAN Consulting Unavailable ALBINA BRODERICK Consulting Unavailable NEWATIA, ISAC Consulting Unavailable MISC, DR AGARWAL Primary Care Unavailable DIAB ., ANUP Admitting Unavailable DIAB ., ANUP Attending Unavailable SOPHY, DR STACI Medina Attending Unavailable SOPHY, DR STACI Medina Consulting Unavailable MISC, DR AGARWAL Primary Care Unavailable SOPHY, DR STACI Medina Admitting Unavailable WARREN .EZIO Consulting UnavailALBINA [place] Consulting Unavailable MD Farhad Landon Emergency Provider [phone] [place] BEHAVIOR ANALYST.Caitlin JORDAN Primary Care Provider RUIZ Pena Primary Care Provider DO Leonard Salazar Emergency Provider [phone] DO Zain Reyes Emergency Provider [phone] NON STAFF Primary Care Provider UnavailJOSE Burns Emergency Provider [phone] Unavailable Primary Care Provider UnavailCAITLIN Diaz Referring Unavailable CAITLIN CHEATHAM Primary Care Unavailable ISACC REDMOND Attending Unavailable DO Zain Reyes Emergency Provider [phone] MD Luis Armando Hendrix Emergency Provider [phone] GHASSAN CARRASCO Attending TRACE Ramires Primary Care Zen Shields MD Bobo Admit Provider [phone] MD Bobo Shields Attending Provider NON STAFF Primary Care Provider Unavailabl e MD Bobo Shields Admit Provider MD Bobo Shields Attending Provider WillronaldoRUIZ Primary Care Provider DO Zain Reyes Emergency Provider RUIZ Pena Primary Care Provider MD Claudio Dee Attending Provider MD Chucky Dueñas Jr Emergency Provider MD Bobo Shields Admit Provider MD Bobo Shields Attending Provider [phone] MUHA, CAITLIN Referring Unavailable MUHA, CAITLIN Primary Care Unavailable MUHA, CAITLIN Attending Unavailable TUROCZI, CHUCK Attending Unavailable MUHA, CAITLIN Primary Care Unavailable MUHA, CAITLIN Attending Unavailable TUROCZI, CHUCK Attending Unavailable AKBAR KOCH Attending Unavailable SELF Referring Unavailable MUHA, CAITLIN Referring Unavailable KOCHAKBAR B Attending Unavailable MUHA, CAITLIN Primary Care Unavailable ROBUCK, Cris E Attending Unavailable Dokken, Kaylniurka A Attending Unavailable Hacornelia, Astrit H Attending Unavailable ROBUCK, Cris E Attending Unavailable ROBUCK, Cris E Attending Unavailable Zahraa Connors Attending Unavailable Jacqueline Marquez Attending Unavailable Christian Locke Attending Unavailable Derrell Orantes Attending Unavailable Derrell Orantes Attending Unavailable Christian Locke Attending Unavailable Derrell Orantes Attending Unavailable DokkDO guanaco Kaylniurka A Attending Unavailable NANCY RODRIGUEZ Attending Unavailable ROBUCK, Cris E Attending Unavailable ROBUCK, Cris E Attending Unavailable ROBUCK, Cris E Attending Unavailable ROBUCK, Cris E Attending Unavailable Unavailable Primary Care Provider UnavailKEVIN Curiel Attending Unavailable RAHAT RAI Attending Unavailable Magalie, Cris Primary Care Unavailable Leonard Salazar Attending Unavailable Leonard Salazar Admitting Unavailable Magalie, Cris Primary Care Unavailable Tupa, Zain M Attending Unavailable Tupa, Zain M Admitting Unavailable Tupa, Zain M Admitting Unavailable Tupa, Zain M Attending Unavailable Robuck, Cris Primary Care Unavailable Tupa, Zain M Admitting Unavailable Tupa, Zain M Attending Unavailable Robuck, Cris Primary Care Unavailable Robuck, Cris Primary Care Unavailable Farhad Landon Attending Unavailable Dipesh, Farhad Admitting Unavailable NON STAFF Primary Care Unavailable Tupa, Zain M Attending Unavailable Tupa, Zain M Admitting Unavailable Eriberto Sheppard Attending Unavailable Eriberto Sheppard Admitting Unavailable NON STAFF Primary Care Unavailable Robuck, Cris Primary Care Unavailable SaffleTrinh N Attending Unavailable ShielaeTrinh N Admitting Unavailable NON STAFF Primary Care Unavailable Luis Armando Hendrix Attending Unavailable Luis Armando Hendrix Admitting Unavailable [facility], Cris Primary Care Unavailable Bobo Shields Admitting Unavailable Bobo Shields Attending Unavailable Destiny Ruiz Consulting Unavailable Stacey Lynne [...] Lewis Consulting Unavailable Jeff Colbert Consulting Unavailable DaromaTyrone medina Consulting Unavailable Ledy Hendrix Consulting Unavailable Cora Dumont Consulting Unavailable Clarisa Oneal Consulting Unavailable Jose Santoyo Consulting Unavailable Lizzette Tripp Consulting Unavailable Maverick Lopez Consulting Unavailable Lucila Blanton Consulting Unavailable Bobo Shields Admitting Unavailable Bobo Shields Attending Unavailable NON STAFF Primary Care Unavailable Claudio Dee Admitting Unavailab Claudio Olson Attending Unavailab Cris Saravia Primary Care Unavailable Zain Reyes Admitting Unavailable Zain Reyes Attending Unavailable Cris Pena Primary Care Unavailable Medications Current Medications Medication Drug Class(es) Dates Sig (Normalized) Sig (Original) albuterol 0.83 mg/ml inhalation solution (20 sources) beta2-Adrenergic Agonist Start: 10-02-2022 take 2.5 mg by inhalation every six hours for wheezing albuterol 0.083% Inh Vera 3 mL 2.5 mg, 3 mL, Inhalation, q6hr for wheezing, 60 EA, Refill(s) 1, [facility] #[id number], 167, cm, 10/02/22 14:11:00 EST, Height/Length Dosing, [...] q6hr for wheezing, 60 EA, Refill(s) 1, [facility] #[id number], 165, cm, 11/01/21 14:58:00 EST, Height/Length Dosing, [...] Inhaler 0 07/09/2015 07/18/2020 Discontinued (LIST CLEANUP) take 2 puff(s) by in halation every six hours as needed for wheezing albuterol sulfate HFA (VENTOLIN HFA) 108 (90 Base) MCG/ACT inhaler Inhale 2 puffs into the lungs every 6 hours as needed for Wheezing 0 Active amphetamine aspartate 7.5 mg / amphetamine sulfate 7.5 mg / dextroamphetamine saccharate 7.5 mg / dextroamphetamine sulfate 7.5 mg oral tablet (20 sources) Central Nervous System Stimulant Start: 12-14-2023 End: 01-13-2024 take 1 tablet by mouth twice daily Amphetamine-Dextroamphetamine (ADDERALL) 30 mg tablet Indications: Attention deficit disorder, unspecified hyperactivity presence Take 1 tablet by mouth two times a day for 30 days. 60 tablet 0 12/14/2023 01/13/2024 Active Start: 10-09-2023 End: 10-15-2023 take 20 mg by mouth once daily Dextroamphetamine-Amphetamine Discontinu ed 20 MG PO Daily October 09, 2023 12:00am October 15, 2023 1:08pm Start: 07-13-2023 take 20 mg by mouth twice daily Dextroamphetamine-Amphetamine Active 20 MG PO Twice Daily at 0900 and 1400 42 July 13, 2023 Start: 03-16-2023 End: 12-14-2023 take 2 tablets by mouth twice daily dextroamphetamine-amphetamine (ADDERALL) 10 mg tablet Indications: Attention deficit hyperactivity disorder (ADHD), unspecified ADHD type Take 2 tablets by mouth twice daily for 30 days. 120 tablet 0 04/16/2023 12/14/2023 Discontinued Start: 11-20-2022 End: 06-08-2023 take 20 mg [...] supply, # 60 tab(s), Refills(s) 0, Pharmacy: [facility] #[id number], 167, cm, 11/06/22 14:42:00 EST, Height/Length Dosing, 68.2, kg, 11/06/22 14:42:00 EST, Weight Dosing Start Date: 11/06/22 Status: Ordered Start: 10-10-2022 End: 10-17-2022 take 1 tablet by mouth three times daily amphetamine-dextroamphetamine 10 mg oral tablet 10 mg, 1 tab(s), Oral, TID for 7 day(s), 21 tab(s), Refill(s) 0, [id number], 167, cm, 10/10/22 12:48:00 EST, Height/Length Dosing, 72.9, kg, 10/10/22 12:48:00 EST, Weight Dosing Start Date: 10/10/22 Stop Date: 10/17/22 Status: Ordered Start: 01-17-2019 End: 01-20-2019 take 30 mg by mouth twice daily Dextroamphetamine-Amphetamine Discontinu ed 30 MG PO Twice daily January 16, 2019 11:00pm January 20, 2019 5:01pm Comment on above: Take 2 tablets by [facility] twice daily for 30 days. Take 10 mg by mouth. Take 1 tablet by [facility] twice daily. Take 1 tablet by [facility] twice daily for 30 days. Take 1 tablet by [facility] two times a day for 30 days. atomoxetine 25 mg oral capsule (1 source) Norepinephrine Reuptake Inhibitor Start: 4 take 25 mg by mouth once daily Atomoxetine Active 25 MG PO Daily 15 October 21, 2023 12:00am 120 actuat budesonide 0.18 mg/actuat dry powder inhaler (5 sources) Corticosteroid Start: 2 Pulmicort Flexhaler 180 mcg/inh Powder = 2 inh, Inhalation, BID, # 1 EA, Refills(s) 10, Pharmacy: [facility] #[id number], 167, cm, 10/02/22 14:11:00 EST, Height/Length Dosing, 70, kg, 10/02/22 14:11:00 EST, Weight Dosing Start Date: 10/02/22 Status: Ordered Start: 04-22-2022 Pulmicort Flex haler 180 mcg/inh Powder = 2 inh, Inhalation, BID, # 1 EA, Refills(s) 10, Pharmacy: [facility] #[id number], 165, cm, 11/01/21 14:58:00 EST, Height/Length Dosing, 88, kg, 11/01/21 14:58:00 EST, Weight Dosing Start Date: 04/22/22 Status: Ordered buprenorphine 8 mg / naloxone 2 mg sublingual film (20 sources) Partial Opioid Agonist, Opioid Antagonist Start: 12-14-2023 End: 01-13-2024 buprenorphine-naloxone (SUBOXONE) 8-2 mg film Dissolve 1 Film under the tongue once daily for 30 days. 0 12/14/2023 01/13/2024 Active Start: 07-31-2020 End: 08-09-2020 buprenorphine-naloxone (SUBO XONE) 8-2 MG FILM SL film Indications: Opioid [...] tongue daily. 0 07/18/2020 Discontinued (Alternate therapy) Comment on above: Dissolve 1 Film unde r the tongue once daily for 30 days. cephalexin 500 mg oral capsule (13 sources) Cephalosporin Antibacterial Start: take 500 mg by mouth four times daily Cephalexin Active 500 MG PO Four times daily October 09, 2023 12:00am Start: 01-15-2023 End: 02-03-2023 take 500 mg by mouth every twelve hours Cephalexin Discontinued 500 MG PO Every 12 hours 6 January 14, 2023 11:00pm February 03, 2023 3:00pm Start: 04-24-2022 End: 05-01-2022 take 1 capsule by mouth every twelve hours Keflex 500 mg Cap 500 mg = 1 cap(s), Oral, q12hr, X 7 day(s), # 14 cap(s), Refills(s) 0, [id number], 165, cm, 04/24/22 13:10:00 EDT, Height/Length Dosing, [...] daily Duloxetine Active 30 MG PO Daily October 21, 2023 12:00am Start: 10-21-2023 take 60 mg by mouth once daily at bedtime Duloxetine Active 60 MG PO Daily at bedtime October 21, 2023 12:00am Start: 07-13-2023 End: [...] 2023 12:00am Start: 12-08-2019 End: 07-17-2020 take 39723 [IU] by mouth every week Ergocalciferol (Vitamin D2) Discontinued 75682 UNIT PO every week December 08, 2019 12:00am July 17, 2020 10:04pm Start: 11-07-2019 End: 12-08-2019 take 76441 [IU] by mouth every week Ergocalciferol (Vitamin D2) Discontinued 81861 UNIT PO every week November 07, 2019 12:00am December 08, 2019 1:42pm on Start: 11-07-2019 End: 12-08-2019 take 86485 [IU] by mouth every week Ergocalciferol (Vitamin D2) Discontinued 06269 UNIT PO every week November 07, 2019 1:00am December 08, 2019 2:42pm on Start: 11-03-2019 End: 11-07-2019 Ergocalciferol (Vitamin D2) Discontinued 37896 UNIT PO Th@0900 November 03, 2019 12:00am November 07, 2019 2:44pm Start: 11-03-2019 End: 11-07-2019 Ergocalciferol (Vitamin D2) Discontinued 63644 UNIT PO Th@0900 November 03, 2019 1:00am November 07, 2019 3:44pm gabapentin 600 mg oral tablet (20 sources) Anti-epileptic Agent Start: 12-14-2023 End: 03-13-2024 take 1 tablet by mouth four times daily gabapentin (NEURONTIN) 600 mg tablet Take 1 tablet by mouth four times daily for 90 days. 120 tablet 2 12/14/2023 03/13/2024 Active Start: 04-17-2023 End: 12-01-2023 take 1 tablet by mouth twice daily, then take 1 tablet by mouth once daily gabapentin (NEURONTIN) 800 mg tablet Indications: Chronic midline low back pain without sciatica Take 1 tablet by mouth twice daily for 7 days, THEN 1 tablet once daily for 7 days. 21 tablet 0 04/17/2023 12/01/2023 Discontinued Start: 02-03-2023 End: 06-08-2023 take 800 mg [...] day, # 150 cap(s), Refills(s) 2, Pharmacy: [facility] #[id number], 167, cm, 11/06/22 14:42:00 EST, Height/Length Dosing, 68.2, kg, 11/06/22 14:42:00 EST, Weight Dosing Start Date: 11/06/22 Status: Ordered Start: 10-02-2022 gabapentin 400 mg Cap See Instructions, 1 cap(s) Oral 5 x per day, # 150 cap(s), Refills(s) 2, Pharmacy: [facility] #[id number], 167, cm, 10/02/22 14:11:00 EST, Height/Length Dosing, 70, kg, 10/02/22 14:11:00 EST, Weight Dosing Start Date: 10/02/22 Status: Ordered Start: 02-28-2022 End: 05-29-2022 take 1 tablet by mouth four times daily gabapentin 600 mg Tab 600 mg = 1 tab(s), Oral, QID, X 30 day(s), # 120 tab(s), Refills(s) 2, Pharmacy: [facility], 165, cm, 11/01/21 14:58:00 EST, [...] Discontinued 800 MG PO Three times daily March 01, 2020 11:00pm January 25, 2021 [...] 1 tablet once daily for 7 days. Take 1 tablet by troy th four times daily for 90 days. methadone hydrochloride 40 mg tablet for oral [...] Refills(s) 0 Start Date: 11/06/22 Status: Ordered End: 11-20-2023 methadone (DOLOPHINE) 5 mg t ablet Take 10 mg by mouth. 0 11/20/2023 Discontinued Comment on above: Take 10 mg by mouth. mirtazapine 15 mg oral tablet (20 sources) Start: 02-11-2021 take 1 tablet by mouth once daily mirtazapine (REMERON) 15 MG tablet Take 1 tablet by mouth nightly 30 tablet 3 02/11/2021 Active Start: 02-05-2021 End: 11-20-2022 take 7.5 mg by mouth once daily at bedtime Mirtazapine Discontinued 7.5 MG PO Daily at bedtime 15 February 04, 2021 11:00pm November 20, 2022 3:01am Start: 03-02-2020 End: 07-17-2020 take 45 mg by mouth once daily at bedtime Mirtazapine Discontinued 45 MG PO Daily at bedtime 14 March 01, 2020 11:00pm July 17, 2020 10:04pm Start: 11-03-2019 End: 03-02-2020 take 15 mg by mouth once daily at bedtime Mirtazapine Discontinued 15 MG PO Daily at bedtime December 08, 2019 12:00am March 02, 2020 11:05am 24 hr nicotine 0.875 mg/hr transdermal system (20 sources) Cholinergic Nicotinic Agonist Start: 10-21-2023 Nicotine Active 1 EACH TRANSDERML Daily October 21, 2023 12:00am Start: 07-13-2023 End: 10-09-2023 Nicotine (Polacrilex) Discon tinued 2 MG BUCCAL Every 2 hours 60 July 12, 2023 11:00pm October 09, [...] PO Twice daily October 21, 2023 12:00am promethazine hydrochloride 25 mg oral tablet (4 sources) Phenothiazine Start: 12-22-2019 take 1 tablet by mouth every four hours as needed for nausea promethazine 25 mg Tab 25 mg = 1 tab(s), Oral, q4hr, PRN for nausea/vomiting, # 30 tab(s), Refills(s) 0, Pharmacy: [id number], 165, cm, 12/22/19 13:50:00 EDT, Height/Length Measured, 95, kg, 12/22/19 13:50:00 EDT, Weight Measured Start Date: 12/22/19 Status: Ordered End: 07-18-2020 take 1 tablet by mouth every four hours as needed Promethazine HCl (PHENERGAN PO) Take 1 tablet by mouth every 4 hours as needed 0 07/18/2020 Discontinued (Therapy completed) QUEtiapine 200 mg oral tablet (20 sources) Atypical Antipsychotic Start: 07-13-2023 End: 10-21-2023 take 150 mg by mouth at bedtime Quetiapine Discontinued 150 MG PO Bedtime October 09, 2023 [...] by mouth. 0 11/06/2022 Active Start: 04-22-2022 End: 07-31-2020 take 1 tablet by mouth twice daily Seroquel 400 mg oral tablet 400 mg = 1 tab(s), Oral, BID, # 60 tab(s), Refills(s) 3, Pharmacy: [facility] #[id number], 165, cm, 11/01/21 14:58:00 EST, Height/Length Dosing, 88, kg, 11/01/21 14:58:00 EST, Weight Dosing Start Date: 04/22/22 Status: Ordered Start: 03-24-2021 End: 01-16-2023 take 400 mg by mouth once daily at bedtime Quetiapine Discontinued 400 MG PO Daily at bedtime March 23, 2021 11:00pm January 16, 2023 7:51am Start: 03-12-2021 End: 03-24-2021 take 450 mg by mouth twice daily at bedtime Quetiapine Discontinued 400 MG PO Twice daily March 12, 2021 4:39pm March 24, 2021 9:35am TO EQUAL 450MG QHS Start: 01-25-2021 End: 11-20-2022 take 50 mg by mouth once daily Quetiapine Discontinued 50 MG PO Daily March 23, 2021 11:00pm November 20, 2022 3:02am Start: 01-25-2021 End: 03-12-2021 take 400 mg by mouth once daily Quetiapine Discontinue d 400 MG PO Daily at 08January 24, 2021 11:00pm March 12, 2021 4:39pm Start: 08-01-2020 take 1 tablet by troy [...] Discontinu ed 150 MG PO Twice daily March 01, 2020 11:00pm July 17, 2020 [...] 07/18/2014 07/31/2020 Discontinued (Stop Taking at Discharge) take 1 tablet by troy th twice daily QUEtiapine (SEROQUEL) 400 MG tablet Take 400 mg by mouth 2 times daily 0 Active Comment on above: Take 200 mg by [...] puff(s), Inhalation, QID, 1 EA, Refill(s) 1, [facility] #[id number], 167, cm, 10/02/22 14:11:00 EST, Height/Length Dosing, 70, kg, 10/02/22 14:11:00 EST, Weight Dosing Start Date: 10/02/22 Status: Ordered Start: 01-20-2022 take 1 dose by inhal ation four times daily albuterol HFA 90 mcg/inh MDI 2 puff(s), Inhalation, QID, 1 EA, Refill(s) 1, [facility]/pharmacy #[id number], 165, cm, 11/01/21 14:58:00 EST, Height/Length [...] 2019 1:42pm buprenorphine 8 mg sublingual tablet (19 sources) Partial Opioid Agonist Start: 01-25-2021 End: 11-20-2022 take 8 mg under the tongue twice daily Buprenorphine Hcl Discontinued 8 MG SUBLINGUAL Twice daily January 24, 2021 11:00pm November 20, 2022 3:00am End: 07-31-2020 buprenorphine (SUBUTEX) 8 MG SUBL SL tablet Place 16 mg under the tongue daily. 0 Active End: 07-18-2020 Buprenorphine HCl (SUBUTEX S L) [...] mg oral tablet (20 sources) Benzodiazepine Start: 01-13-2024 End: 01-13-2024 clonazePAM (KLONOPIN) tablet 1 mg Start: 01-12-2024 End: 01-12-2024 clonazePAM (KLONOPIN) tablet 0.5 mg Start: 12-14-2023 End: 01-13-2024 take 1 tablet by mouth every eight hours as needed for anxiety and anxiety clonazePAM (KLONOPIN) 1 mg tablet Indications: Anxiety Take 1 tablet by mouth three times a day as needed for up to 30 days. 90 tablet 0 12/14/2023 01/13/2024 Active Start: 10-09-2023 End: 10-15-2023 take 0.5 mg by mouth twice daily Clonazepam Discontinued 0.5 MG PO Twice daily October 09, 2023 12:00am October 15, 2023 1:08pm Start: 07-13-2023 take 0.5 mg by mouth twice daily Clonazepam Active 0.5 MG PO Twice daily July 13, 2023 8:42am Start: 06-18-2023 End: 12-31-2023 take 0.5 tablet by mouth three times daily as needed clonazePAM (KLONOPIN) 1 mg tablet Indications: Paranoid schizophrenia (HCC) , Bipolar depression (HCC) Take 0.5 tablets by mouth three times a day as needed for up to 30 days. for insomnia. 45 tablet 0 12/01/2023 12/14/2023 Discontinued Start: 06-08-2023 End: 07-13-2023 take 0.5 mg [...] for up to 30 days. for insomnia. Take 0.5 tablets by mouth three times a day as needed for up to 30 days. for insomnia. Take 1 tablet by troy th three times a day as needed for up to 30 days. cyclobenzaprine hydrochloride 10 mg oral tablet (1 source) Muscle Relaxant Start: 008 End: 023 cyclobenzaprine hcl(FLEXERIL 10 MG TAB) Take one(1) tablet three times daily. 0 07/06/2008 03/16/2023 Discontinued (Course of therapy completed) Comment on above: Take one(1) tablet t hree times daily. 12 hr dextromethorphan polistirex 6 mg/ml extended release suspension (14 sources) Uncompetitive D-lzejsv-K-aspartate Receptor Antagonist, Sigma-1 Agonist Start: 022 End: take 1 mL by mouth every twelve hours Dextromethorphan Polistirex (Delsym 12 Hour) 30 mg/5 mL suspension,extended rel 12 hr Discontinued 10 ML PO Q12H August 08, 2022 11:00pm November 20, 2022 3:00am docusate sodium 100 mg oral capsule (15 sources) Start: End: take 1 capsule by mouth once [...] 08, 2019 12:00am February 18, 2020 6:31pm haloperidol 5 mg oral tablet (7 sources) Typical Antipsychotic Start: 06-08-2023 End: 07-13-2023 take 5 mg by mouth twice daily Haloperidol Discontinued 5 MG PO Twice daily June 07, 2023 11:00pm July 13, 2023 8:44am Start: 06-08-2023 take 5 mg by mouth once daily Haloperidol Active 5 MG PO Daily June 08, 2023 12:00am hydrOXYzine pamoate 50 mg oral capsule (20 sources) Antihistamine Start: 01-13-2024 End: 01-13-2024 hydrOXYzine pamoate (VISTARIL) capsule 50 mg Start: 06-08-2023 End: 10-09-2023 take 50 mg [...] anxiety, # 200 mL, Refills(s) 3, Pharmacy: [facility] #[id number], 167, cm, 11/06/22 14:42:00 EST, Height/Length Dosing, 68.2, kg, 11/06/22 14:42:00 EST, Weight Dosing Start Date: 11/06/22 Status: Ordered Start: 04-22-2022 take 1 capsule by mo [facility] three times daily Vistaril 50 mg Cap 50 mg = 1 cap(s), Oral, TID, # 90 cap(s), Refills(s) 1, [id number], 165, cm, 11/01/21 14:58:00 EST, Height/Length Dosing, 88, kg, 11/01/21 14:58:00 EST, Weight Dosing Start Date: 04/22/22 Status: Ordered Start: 02-05-2021 End: 02-03-2023 take 50 mg by mouth every six hours Hydroxyzine Pamoate Discontinued 50 MG PO Q6H 45 14 January 15, 2023 11:26am February 03, 2023 3:02pm Start: 07-31-2020 End: 08-10-2020 take 1 tablet by mouth three times daily as needed for anxiety hydrOXYzine (ATARAX) 50 MG tablet Take 1 tablet by mouth 3 times daily as needed for Anxiety 30 tablet 0 07/31/2020 08/10/2020 Active take 1 capsule by mo [facility] four times daily as needed for anxiety hydrOXYzine (VISTARIL) 50 MG capsule Take 50 mg by mouth 4 times daily as needed for Anxiety 0 Active levETIRAcetam 500 mg oral tablet (1 [...] 16, 2019 12:00am February 18, 2020 6:32pm Multivitamin With Folic Acid (Thera) 400 mcg [...] 07/18/2020 Discontinued (LIST CLEANUP) polyethylene glycol 3350 17250 mg powder for oral solution (20 sources) [...] 2022 4:20pm administer with food or milk pregabalin 150 mg oral capsule (20 sources) Start: 12-01-2023 End: 02-29-2024 take 1 capsule by mouth three times daily pregabalin (LYRICA) 150 mg capsule Indications: Chronic midline low back pain without sciatica , Myofascial pain syndrome Take 1 capsule by mouth three times a day for 90 days. 90 capsule 2 12/01/2023 12/14/2023 Discontinued Start: 10-09-2023 take 100 mg by mouth once eunice y Pregabalin Active 100 MG PO Daily October 09, 2023 12:00am Start: 06-17-2023 End: 12-01-2023 take 1 capsule by mouth three times daily pregabalin (LYRICA) 100 mg capsule Indications: Myofascial pain syndrome Take 1 capsule by mouth three times a day for 90 days. 90 capsule 0 10/08/2023 12/01/2023 Discontinued Start: 06-08-2023 End: 07-02-2023 take 75 mg [...] times daily. Take 1 capsule by mo ut three times daily for 30 days. Take 1 capsule by mo ut three times daily for 90 days. Take 1 capsule by mo [facility] three times a day for 30 days. Take 1 capsule by [facility] three times a day for 90 days. psyllium 6000 mg powder for oral suspension [...] 11:03am Start: 08-01-2020 take 1 tablet by [facility] once daily sertraline (ZOLOFT) 100 MG tablet [...] 0 Start Date: 11/06/22 Status: Ordered Start: 02-12-2021 End: 12-14-2023 take 1 tablet by mouth once daily divalproex (DEPAKOTE ER) 500 MG extended release tablet Take 1 tablet by mouth daily 30 tablet 3 02/12/2021 Active Start: 02-11-2021 take 2 tablets by mo [facility] once daily divalproex (DEPAKOTE ER) 500 MG extended release tablet Take 2 tablets by mouth nightly 60 tablet 3 02/11/2021 Active Start: 02-05-2021 End: 06-08-2023 take 1000 [...] Discontinued 500 MG PO Every morning 60 30 December 08, 2019 12:00am March [...] Date Documented Da te Episodic/Chronic Administrative/social admission (1 source) Poor historian; Translations: [...] Chronic Attention-deficit, conduct, and disruptive behavior disorders (1 source) Attention-deficit hyperactivity disorder, unspecified type; Translations: [Attention deficit hyperactivity disorder (ADHD), unspecified ADHD type] Onset: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 Take 1 capsule by mouth three times a day for 90 days. - pregabalin (LYRICA) 100 mg capsule Take 1 capsule by mouth three times a day for 30 days. - clonazePAM (KLONOPIN) 1 mg tablet Take 0.5 tablets by mouth three times daily as needed for up to 30 days. for insomnia. - gabapentin (NEURONTIN) 800 [...] once daily. Problem List As Of Date 12/01/2023 Noted Resolved Anxiety [F41.9] 11/20/2022 Bipolar depression [...] schizophrenia (HCC) [F20.0] 03/16/2023 Encounter Status:Closed by MARVIN SANCHEZ on 12/01/23 Normal [facility] ED Note-Physicianon 11-05-19 ED Note-Physician [id number] Normal [facility] Consultation Noteon 10-20-19 Consultation Note [id number]. [id number] Normal [facility] Aerobic Cultureon 10-16-2023 Aerobic Culture Moderate Normal Respiratory Lanny 2 Days Gram Stain Result 2+ Epithelial Cells 2+ White Blood Cells Rare Gram Positive Bacilli PERFORMED BY: [place] [address] PATHOLOGIST [employer] DANYELL LIVINGSTON M.D. Normal [facility] Comment on above: Performed By: #### C BC, CMP, ETOH #### [facility] [address] [place], [place] [id number] [facility] Aerobic cultureOrdered By: Cesia Abdi on 10-16-2023 Bacteria identified Aer cx Nom (Unsp spec) 2 Days [facility] Gram Stainon 10-16-2023 Microscopic observation Gram stain Nom (Unsp spec) Gram Stain Result 2+ Epithelial Cells 2+ White Blood Cells Rare Gram Positive Bacilli PERFORMED BY: [place] [address] PATHOLOGIST [employer] DANYELL LIVINGSTON M.D. Normal [facility] Comment on above: Performed By: #### C BC, CMP, ETOH #### [facility] [address] [place], [place] [id number] [place] Gram stain for investigation of transfusion reactionOrdered By: Darlin Martin on 10-16-2023 Microscopic observation Gram stain Nom (Unsp spec) [facility] Urinalysison 10-16-2023 Appearance (U) Clear Normal Clear [facility] Comment on above: Order Comment: Name Collection Type:: Clean-Voided Midstream Performed By: #### U A #### [place] [address] [place] Bilirubin,Urine Negative Normal Negative [facility] Comment on above: Order Comment: Name Collection Type:: Clean-Voided Midstream Performed By: #### U A #### [address] Glucose Ql (U) Normal Normal Normal [facility] Comment on above: Order Comment: Name Collection Type:: Clean-Voided Midstream Performed By: #### U A #### [address] Ketones Ql (U) Negative Normal Negative [facility] Comment on above: Order Comment: Name Collection Type:: Clean-Voided Midstream Performed By: #### U A #### [address] Leukocyte esterase Test strip Ql (U) Negative Normal Negative [facility] Comment on above: Order Comment: Name Collection Type:: Clean-Voided Midstream Performed By: #### U A #### [place] [address] [place] Nitrite,Urine Negative Normal Negative [facility] Comment on above: Order Comment: Name Collection Type:: Clean-Voided Midstream Performed By: #### U A #### [place] [address] [place] Occult Blood,Urine Negative Normal Negative [facility] Comment on above: Order Comment: Name Collection Type:: Clean-Voided Midstream Result Comment: PERF ORMED BY: [place] [address] PATHOLOGIST [employer] DANYELL LIVINGSTON M.D. Performed By: #### U A #### [place] [address] [place] Protein,Urine Negative Normal Negative [facility] Comment on above: Order Comment: Name Collection Type:: Clean-Voided Midstream Performed By: #### U A #### [place] [address] [place] Specificy [place],Urine 1.017 Normal 1.001-1.030 [facility] Comment on above: Order Comment: Name Collection Type:: Clean-Voided Midstream Performed By: #### U A #### [facility] [address] [place] [address] Urobilinogen,Urine Normal Normal Normal [facility] Comment on above: Order Comment: Name Collection Type:: Clean-Voided Midstream Performed By: #### U A #### [facility] [address] [place] [address] Automated urine color determ inationOrdered By: Darlin Abdi on 10-15-2023 Color (U) Yellow Normal Yellow [facility] Comment on above: Order Comment: Name Collection Type:: Clean-Voided Midstream Performed By: #### U A #### [facility] [address] [place] [address] Bilirubin Test strip Ql (U)O rdered By: Darlin Abdi on 10-15-2023 Bilirubin Ql (U) Negative Negative [facility] Ketones Auto test strip (U) [Mass/Vol]Ordered By: Darlin Abdi on 10-15-2023 Ketones (U) [Mass/Vol] Negative Negative [facility] Nitrite Test strip Ql (U)Ord ered By: Darlin Abdi on 10-15-2023 Nitrite Ql (U) Negative Negative [facility] Protein Auto test strip (U) [Mass/Vol]Ordered By: Darlin Abdi on 10-15-2023 Protein (U) [Mass/Vol] Negative Negative [facility] Specific gravity Auto test s trip (U) [Rel density]Ordered By: Darlin Martin on 10-15-2023 Specific gravity (U) [Rel density] 1.017 1.001-1.030 [facility] Urine clarity by refractomet ry automatedOrdered By: Darlin Abdi on 10-15-2023 Clarity Refractometry automated (U) Clear Clear [facility] Urine glucose measurement by [...] (U) Negative Negative [facility] Urine pH measurement by auto mated test stripOrdered By: Dariln Abdi on 10-15-2023 pH (U) 6.5 [pH] Normal 5.0-9.0 [facility] Comment on above: Order Comment: Name Collection Type:: Clean-Voided Midstream Performed By: #### U A #### [address] Urobilinogen Auto test strip (U) [Mass/Vol]Ordered By: Darlin Abdi on 10-15-2023 Urobilinogen (U) [Mass/Vol] Normal mg/dL Normal [facility] XR chest 2V*on 10-15-2023 XR chest 2V* [facility] [place] [address] [place] [address] XRay Report Signed Patient: Lorna Deutsch MR#: [id number] [birth year] : 1985 Acct:[id number] Age/Sex: 38 / F ADM Date: 10/09/23 Loc: Room: [address] [place] [address] Type: ADM IN Attending Dr: Bobo Shields [...] M.D.10/15/2023 5:44 PM Dictation Location: [place] [address] Transcribed By: [facility] 10/15/231743 Dictated By: Viviana Bui MD 10/15/231742 Signed By: 10/15/231743 Normal [facility] Acetaminophenon 10-09-2023 Acetaminophen [Mass/Vol] 0.1 ug/mL Low 10.0-30.0 [facility] Comment on above: Performed By: #### C BC, CMP, ETOH #### [address] Ammoniaon 10-09-2023 Ammonia (P) [Moles/Vol] 27 umol/L Normal 11-35 [facility] Comment on above: Result Comment: PERF ORMED BY: [place] [address] PATHOLOGIST [employer] DANYELL LIVINGSTON M.D. Performed By: #### C BC, CMP, ETOH #### [address] ECG 12 lead ECGon 10-09-2023 ECG 12 lead ECG [facility] [place] [address] [place] [address] Electrocardiograph Report Signed Patient: Lorna Deutsch MR#: [id number] [birth year] : 1985 Acct:[id number] Age/Sex: 38 / F ADM Date: 10/09/23 Loc: Room: [address] [place] [address] Type: ADM IN Attending Dr: Bobo Shields [...] By Amaya Carbajal DO 10/11 1555 Normal [facility] Salicylateon 10-09-2023 Salicylate < 1.5 Low 15.0-30.0 [facility] Comment on above: Result Comment: Sonia ents treated with Sulfasalazine may generate a false high result for Salicylate. Performed By: #### C BC, CMP, ETOH #### [address] Valproic Acid (in house)on 1 Valproic Acid (in house) < 4.0 Low 50.0-100.0 [facility] Comment on above: Result Comment: Last dose: - PERFORMED BY: [place] [address] PATHOLOGIST [employer] DANYELL LIVINGSTON M.D. Performed By: #### C BC, CMP, ETOH #### [address] Acetaminophen [Mass/volume] in Serum or PlasmaOrdered By: Chucky Dueñas on 10-08-2023 Acetaminophen [Mass/Vol] 0.1 ug/mL 10.0-30.0 [facility] Alanine aminotransferase [En zymatic activity/volume] in Serum or PlasmaOrdered By: Chucky Dueñas on 10-08-2023 ALT [Catalytic activity/Vol] 12 U/L 7-52 [facility] Albumin [Mass/volume] in Ser um or Plasma by Bromocresol green (BCG) dye binding methoOrdered By: Chucky Dueñas on 10-08-2023 Albumin BCG dye [Mass/Vol] 3.9 g/dL 3.5-5.7 [facility] Alkaline phosphatase [Enzyma tic activity/volume] in Serum or PlasmaOrdered By: Chucky Dueñas on 10-08-2023 ALP [Catalytic activity/Vol] 57 U/L 34-104 [facility] Ammonia [Moles/volume] in Pl asmaOrdered By: Chucky Dueñas on 10-08-2023 Ammonia (P) [Moles/Vol] 27 umol/L 11-35 [facility] Amphetamine Screen Ql (U)Ord ered By: Chucky Dueñas on 10-08-2023 Amphetamines Ql (U) Positive Negative [facility] Aspartate aminotransferase [ Enzymatic activity/volume] in Serum or PlasmaOrdered By: Chucky Dueñas on 10-08-2023 AST [Catalytic activity/Vol] 16 U/L 13-39 [facility] Automated erythrocytes count in urine sediment (number/area)Ordered By: Chucky Dueñas on 10-08-2023 RBC Auto (Urine sed) [#/Area] 3-4 [HPF] 0-4 [facility] Automated leukocytes count i n urine sediment (number/area)Ordered By: Chucky Dueñas on 10-08-2023 WBC Auto (Urine sed) [#/Area] 10-19 [HPF] 0-4 [facility] Automated urine hyaline cast s count (number/volume)Ordered By: Chucky Dueñas on 10-08-2023 Hyaline casts Auto (U) [#/Vol] None seen [LPF] 0-1 [facility] Barbiturates [Presence] in U rine by Screen methodOrdered By: Chucky Dueñas on 10-08-2023 Barbiturates Screen Ql (U) Negative Negative [facility] Basophils Auto (Bld) [#/Vol] Ordered By: Chucky Dueñas on 10-08-2023 Basophils (Bld) [#/Vol] 0.1 10*3/uL 0.0-0.2 [facility] Basophils/100 WBC Auto (Bld) Ordered By: Chucky Dueñas on 10-08-2023 Basophils/100 WBC (Bld) 0.7 % . [facility] Benzodiazepines Screen Ql (U )Ordered By: Chucky Dueñas on 10-08-2023 Benzodiazepines Ql (U) Negative [facility] Benzoyle[facility]gonine [Presence] i n Urine by Screen methodOrdered By: Chucky Dueñas on 10-08-2023 Benzoylecgonine Screen Ql (U) Negative Negative [facility] Bilirubin Test strip Ql (U)O rdered By: Chucky Dueñas on 10-08-2023 Bilirubin Ql (U) 1+ Negative [facility] Bilirubin.total [Mass/volume ] in Serum or PlasmaOrdered By: Chucky Dueñas on 10-08-2023 Bilirubin [Mass/Vol] 0.3 mg/dL 0.3-1.0 [facility] Calcium [Mass/volume] in Ser um or PlasmaOrdered By: Chucky Dueñas on 10-08-2023 Calcium [Mass/Vol] 9.0 mg/dL 8.6-10.3 [facility] Cannabinoids [Presence] in U rine by Screen methodOrdered By: Chucky Dueñas on 10-08-2023 Cannabinoids Screen Ql (U) Negative Negative [facility] [...] CO2 [Moles/Vol] 24.7 mmol/L 21.0-31.[address] [facility] Casts typing in urine sedime nt by light microscopyOrdered By: Chucky Dueñas on 10-08-2023 Casts LM Nom (Urine sed) None seen [LPF] None Seen [facility] Chloride [Moles/volume] in S maris or PlasmaOrdered By: Chucky Dueñas on 10-08-2023 Chloride [Moles/Vol] 105 mmol/L 98-107 [facility] Cholesterol [Mass/volume] in Serum or PlasmaOrdered By: Bobo Shields on 10-08-2023 Cholesterol [Mass/Vol] 151 mg/dL 140-200 [facility] Comment on above: Chol less than 200 m g/dl low riskChol 201-239 mg/dl borderline riskChol 240 mg/dl and greater high risk Cholesterol in LDL Calc [Mas s/Vol]Ordered By: Bobo Shields on 10-08-2023 Cholesterol in LDL [Mass/Vol] 87 mg/dL 0-100 [facility] Comment on above: LDL ATP III CLASSIFI CATIONLDL less than 100 mg/dL OptimalLDL 100-129 mg/dL Near or above optimalLDL 130-159 mg/dL Borderline highLDL 160-189 mg/dL HighLDL greater than 189 mg/dL Very high Cholesterol in VLDL Calc [Ma ss/Vol]Ordered By: Boboarmida Shields on 10-08-2023 Cholesterol in VLDL [Mass/Vol] 29 mg/dL [facility] Color Auto (U)Ordered By: Aries Dueñas on 10-08-2023 Color (U) Dark yellow Yellow [facility] Complete Blood Count Auto Di ffon 10-08-2023 Basophils (Bld) [#/Vol] 0.1 10*3/uL Normal 0.0-0.2 [facility] Comment on above: Result Comment: PERF ORMED BY: [place] [address] PATHOLOGIST [employer] DANYELL LIVINGSTON M.D. Performed By: #### U A #### [address] Basophils/100 WBC (Bld) 0.7 % Normal . [facility] Comment on above: Performed By: #### U A #### [address] Eosinophils (Bld) [#/Vol] 0.0 10*3/uL Normal 0.0-0.45 [facility] Comment on above: Performed By: #### U A #### [address] Eosinophils/100 WBC (Bld) 0.3 % Normal . [facility] Comment on above: Performed By: #### U A #### [address] Erythrocyte distribution width (RBC) [Ratio] 13.0 % Normal 11.9-15.3 [facility] Comment on above: Performed By: #### U A #### [address] Hematocrit (Bld) [Volume fraction] 37.1 % Normal 34.0-46.4 [facility] Comment on above: Performed By: #### U A #### [address] Hemoglobin (Bld) [Mass/Vol] 12.8 g/dL Normal 11.8-15.4 [facility] Comment on above: Performed By: #### U A #### [address] Lymphocytes (Bld) [#/Vol] 3.7 10*3/uL Normal 1.00-4.8 [facility] Comment on above: Performed By: #### U A #### [address] Lymphocytes/100 WBC (Bld) 38.7 % Normal . [facility] Comment on above: Performed By: #### U A #### [address] MCH (RBC) [Entitic mass] 30.3 pg Normal 24.7-34.3 [facility] Comment on above: Performed By: #### U A #### [address] MCV (RBC) [Entitic vol] 87.9 fL Normal 80-100 [facility] Comment on above: Performed By: #### U A #### [address] Mean Corpuscular HGB Conc 34.5 g/dL Normal 32.0-35.0 [facility] Comment on above: Performed By: #### U A #### [address] Monocytes (Bld) [#/Vol] 0.6 10*3/uL Normal 0.0-0.8 [facility] Comment on above: Performed By: #### U A #### [address] Monocytes/100 WBC (Bld) 21.04 % High 0.00-20.00 [facility] Comment on above: Result Comment: For adults in ED, MDW > 20.0 may be associated with a higher risk of sepsis during the first 12 hrs of hospital admission Performed By: #### U A #### [address] Monocytes/100 WBC (Bld) 6.2 % Normal . T [facility] Comment on above: Performed By: #### U A #### [address] Neutrophils (Bld) [#/Vol] 5.1 10*3/uL Normal 1.8-7.7 [facility] Comment on above: Performed By: #### U A #### [address] Neutrophils/100 WBC (Bld) 54.1 % Normal . [facility] Comment on above: Performed By: #### U A #### [address] NRBC% 0.2 /100{WBC} Normal 0-0.5 [facility] Comment on above: Performed By: #### U A #### [address] Platelet mean volume (Bld) [Entitic vol] 8.6 fL Normal 6.3-10.7 [facility] Comment on above: Performed By: #### U A #### [address] Platelets (Bld) [#/Vol] 371 10*3/uL Normal 150-450 [facility] Comment on above: Performed By: #### U A #### [place] [address] [place] RBC (Bld) [#/Vol] 4.22 10*6/uL Normal 3.60-5.00 [facility] Comment on above: Performed By: #### U A #### [address] WBC (Bld) [#/Vol] 9.5 10*3/uL Normal 3.8-11.6 [facility] Comment on above: Performed By: #### U A #### [address] Comprehensive Metabolic Pane selam 10-08-2023 Albumin [Mass/Vol] 3.9 g/dL Normal 3.5-5.7 [facility] Comment on above: Performed By: #### U A #### [address] Albumin/Globulin [Mass ratio] 1.1 {ratio} Normal [facility] Comment on above: Performed By: #### U A #### [address] ALP [Catalytic activity/Vol] 57 U/L Normal 34-104 [facility] Comment on above: Performed By: #### U A #### [address] ALT [Catalytic activity/Vol] 12 U/L Normal 7-52 [facility] Comment on above: Performed By: #### U A #### [address] Anion gap [Moles/Vol] 10.1 mmol/L Normal 6.0-15.0 [facility] Comment on above: Performed By: #### U A #### [address] AST [Catalytic activity/Vol] 16 U/L Normal 13-39 [facility] Comment on above: Performed By: #### U A #### [address] Bilirubin [Mass/Vol] 0.3 mg/dL Normal 0.3-1.0 [facility] Comment on above: Performed By: #### U A #### [address] Calcium [Mass/Vol] 9.0 mg/dL Normal 8.6-10.3 [facility] Comment on above: Performed By: #### U A #### [address] Chloride [Moles/Vol] 105 mmol/L Normal 98-107 [facility] Comment on above: Performed By: #### U A #### [address] CO2 [Moles/Vol] 24.7 mmol/L Normal 21.0-31.0 [facility] Comment on above: Performed By: #### U A #### [address] Creatinine [Mass/Vol] 0.78 mg/dL Normal 0.60-1.20 [facility] Comment on above: Performed By: #### U A #### [address] Creatinine Clr Calc Pharmacy 91.55 Normal [facility] Comment on above: Result Comment: PERF ORMED BY: [place] [address] PATHOLOGIST [employer] DANYELL LIVINGSTON M.D. Performed By: #### U A #### [address] GFR/1.73 sq M.predicted MDRD (S/P/Bld) [Vol rate/Area] mL/min/{1.73_m2} Normal [facility] Comment on above: Performed By: #### U A #### [address] Globulin (S) [Mass/Vol] 3.4 g/dL Normal T [facility] Comment on above: Performed By: #### U A #### [address] Glucose [Mass/Vol] 98 mg/dL Normal 70-100 [facility] Comment on above: Result Comment: [place] Glucose Reference Range is dependent on time and content of last meal. Glucose of more than 200 mg/dL in a nonstressed, ambulatory subject supports the diagnosis of Diabetes Mellitus. ADA recommended reference range Performed By: #### U A #### [place] [address] [place] Potassium [Moles/Vol] 3.8 mmol/L Normal 3.5-5.1 [facility] Comment on above: Performed By: #### U A #### [address] Protein [Mass/Vol] 7.3 g/dL Normal 6.4-8.9 [facility] Comment on above: Performed By: #### U A #### [address] Sodium [Moles/Vol] 136 mmol/L Normal 136-145 [facility] Comment on above: Performed By: #### U A #### [address] Urea nitrogen [Mass/Vol] 12 mg/dL Normal 7-25 [facility] Comment on above: Performed By: #### U A #### [address] Creatinine [Mass/volume] in Serum or PlasmaOrdered By: Chucky Dueñas on 10-08-2023 Creatinine [Mass/Vol] 0.78 mg/dL 0.60-1.20 [facility] Dipstick and Microscopicon 1 12-09-2022 Appearance (U) Turbid Critically abnormal Clear [facility] Comment on above: Order Comment: Name Collection Type:: Clean-Voided Midstream Performed By: #### C BC, CMP, ETOH #### [place] [address] [place] Bacteria,Urine 2+ High None Seen [facility] Comment on above: Order Comment: Name Collection Type:: Clean-Voided Midstream Performed By: #### C BC, CMP, ETOH #### [place] [address] [place] Bilirubin,Urine 1+ High Negative [facility] Comment on above: Order Comment: Name Collection Type:: Clean-Voided Midstream Performed By: #### C BC, CMP, ETOH #### [place] [address] [place] Color (U) Dark Yellow Critically abnormal Yellow [facility] Comment on above: Order Comment: Name Collection Type:: Clean-Voided Midstream Performed By: #### C BC, CMP, ETOH #### [address] Glucose Ql (U) Normal Normal Normal [facility] Comment on above: Order Comment: Name Collection Type:: Clean-Voided Midstream Performed By: #### C BC, CMP, ETOH #### [address] Hyaline Casts,Urine None Seen Normal 0-1 [facility] Comment on above: Order Comment: Name Collection Type:: Clean-Voided Midstream Performed By: #### C BC, CMP, ETOH #### [address] Ketones Ql (U) Trace High Negative [facility] Comment on above: Order Comment: Name Collection Type:: Clean-Voided Midstream Performed By: #### C BC, CMP, ETOH #### [address] Leukocyte esterase Test strip Ql (U) 1+ High Negative [facility] Comment on above: Order Comment: Name Collection Type:: Clean-Voided Midstream Performed By: #### C BC, CMP, ETOH #### [address] Nitrite,Urine Negative Normal Negative [facility] Comment on above: Order Comment: Name Collection Type:: Clean-Voided Midstream Performed By: #### C BC, CMP, ETOH #### [place] [address] [place] Occult Blood,Urine 3+ High Negative [facility] Comment on above: Order Comment: Name Collection Type:: Clean-Voided Midstream Performed By: #### C BC, CMP, ETOH #### [address] Other Casts,Urine None Seen Normal None Seen [facility] Comment on above: Order Comment: Name Collection Type:: Clean-Voided Midstream Performed By: #### C BC, CMP, ETOH #### [address] pH (U) 5.5 [pH] Normal 5.0-9.0 [facility] Comment on above: Order Comment: Name Collection Type:: Clean-Voided Midstream Performed By: #### C BC, CMP, ETOH #### [address] Protein (U) [Mass/Vol] 100 mg/dL High Negative [facility] Comment on above: Order Comment: Name Collection Type:: Clean-Voided Midstream Performed By: #### C BC, CMP, ETOH #### [address] RBC,Urine 3-4 Normal 0-4 [facility] Comment on above: Order Comment: Name Collection Type:: Clean-Voided Midstream Performed By: #### C BC, CMP, ETOH #### [address] Specificy [place],Urine 1.036 High 1.001-1.030 [facility] Comment on above: Order Comment: Name Collection Type:: Clean-Voided Midstream Performed By: #### C BC, CMP, ETOH #### [address] Squamous Epithelial Cell,Urine Innumerable High 0-2 [facility] Comment on above: Order Comment: Name Collection Type:: Clean-Voided Midstream Performed By: #### C BC, CMP, ETOH #### [address] Urobilinogen,Urine Normal Normal Normal [facility] Comment on above: Order Comment: Name Collection Type:: Clean-Voided Midstream Performed By: #### C BC, CMP, ETOH #### [address] WBC,Urine 10-19 High 0-4 [facility] Comment on above: Order Comment: Name Collection Type:: Clean-Voided Midstream Performed By: #### C BC, CMP, ETOH #### [address] Yeast,Urine None Seen Normal None Seen [facility] Comment on above: Order Comment: Name Collection Type:: Clean-Voided Midstream Performed By: #### C BC, CMP, ETOH #### [address] Drug Screen,Urineon 10-08-20 23 Amphetamine Screen,Urine Positive High Negative [facility] Comment on above: Performed By: #### C BC, CMP, ETOH #### [address] Barbiturate Screen,Urine Negative Normal Negative [facility] Comment on above: Performed By: #### C BC, CMP, ETOH #### [address] Benzodiazepines Screen,Urine Negative Normal Negative [facility] Comment on above: Performed By: #### C BC, CMP, ETOH #### [address] Cannabinoid Screen,Urine Negative Normal Negative [facility] Comment on above: Result Comment: Thes e are unconfirmed results and should not be used for legal purposes. Drug Cut-Off Concentration: AMPH 1000 ng/mL SARA 200 ng/mL MARTÍNEZ 200 ng/mL COCM 300 ng/mL OP 300 ng/mL PCP 25 ng/mL THC 20 ng/mL PERFORMED BY: [place] [address] PATHOLOGIST [employer] DANYELL LIVINGSTON M.D. Performed By: #### C BC, CMP, ETOH #### [address] Cocaine Screen,Urine Negative Normal Negative [facility] Comment on above: Performed By: #### C BC, CMP, ETOH #### [place] [address] [place] Opiate Screen,Urine Negative Normal Negative [facility] Comment on above: Performed By: #### C BC, CMP, ETOH #### [address] Phencyclidine Screen,Urine Negative Normal Negative [facility] Comment on above: Performed By: #### C BC, CMP, ETOH #### [facility] [address] [place] [address] Eosinophils Auto (Bld) [#/Vo l]Ordered By: Chucky Dueñas on 10-08-2023 Eosinophils (Bld) [#/Vol] 0.0 10*3/uL 0.0-0.45 [facility] Eosinophils/100 WBC Auto (Bl d)Ordered By: Chucky Dueñas on 10-08-2023 Eosinophils/100 WBC (Bld) 0.3 % . [facility] Erythrocyte distribution wid th Auto (RBC) [Ratio]Ordered By: Chucky Dueñas on 10-08-2023 Erythrocyte distribution width (RBC) [Ratio] 13.0 % 11.9-15.3 [facility] Ethanol [Mass/volume] in Ser um or PlasmaOrdered By: Chucky Dueñas on 10-08-2023 Ethanol [Mass/Vol] mg/dL [facility] Ethanol [Mass/Vol] TNP [facility] Comment on above: Test not performed Ethyl Alcohol Profileon 09-12 Ethanol [Mass/Vol] mg/dL Normal [facility] Comment on above: Performed By: #### U A #### [facility] [address] [place] [address] Percent Ethanol Not performed Normal [facility] Comment on above: Result Comment: PERF ORMED BY: [place] [address] PATHOLOGIST [employer] DANYELL LIVINGSTON M.D. Performed By: #### U A #### [facility] [address] [place] [address] Globulin Calc (S) [Mass/Vol] Ordered By: Chucky Dueñas on 10-08-2023 Globulin (S) [Mass/Vol] 3.4 g/dL [facility] Glucose [Mass/volume] in Ser um or PlasmaOrdered By: Chucky Dueñas on 10-08-2023 Glucose [Mass/Vol] 98 mg/dL 70-100 [facility] Comment on above: ADA recommended refe rence rangeRandom Glucose Reference Range is dependent on time and content of last meal. Glucose of more than 200 mg/dL in a nonstressed, ambulatory subject supports the diagnosis of Diabetes Mellitus. HCG ( test) IA.rapi d Ql (U)Ordered By: Chucky Dueñas on 10-08-2023 HCG ( test) Ql (U) Negative [facility] HCG,Urineon 10-08-2023 Beta HCG ( test) Ql (U) Negative Normal [facility] Comment on above: Order Comment: Name Collection Type:: Clean-Voided Midstream Result Comment: PERF ORMED BY: [facility] [address] [place] [address] PATHOLOGIST [employer] DANYELL LIVINGSTON M.D. Performed By: #### C BC, CMP, ETOH #### [facility] [address] Hematocrit Auto (Bld) [Volum e fraction]Ordered By: Chucky Dueñas on 10-08-2023 Hematocrit (Bld) [Volume fraction] 37.1 % 34.0-46.4 [facility] Hemoglobin [Mass/volume] in BloodOrdered By: Chucky Dueñas on 10-08-2023 Hemoglobin (Bld) [Mass/Vol] 12.8 g/dL 11.8-15.4 [facility] Ketones Auto test strip (U) [Mass/Vol]Ordered By: Chucky Dueñas on 10-08-2023 Ketones (U) [Mass/Vol] Trace Negative [facility] Leukocytes [#/volume] correc neema for nucleated erythrocytes in Blood by Automated counOrdered By: Chucky Dueñas on 10-08-2023 WBC corrected for nucl RBC Auto (Bld) [#/Vol] 9.5 10*3/uL 3.8-11.6 [facility] Lipid Panelon 10-08-2023 Cholesterol [Mass/Vol] 151 mg/dL Normal 140-200 [facility] Comment on above: Order Comment: Comme nt use er lab draw Result Comment: Chol less than 200 mg/dl low risk Chol 201-239 mg/dl borderline risk Chol 240 mg/dl and greater high risk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 2 [id number] ####[facility] [address] [place] [address] Consent for Treatmenton 110 Consent for Treatment [id number] .00TIFF Normal [facility] Discharge Instructionson Discharge Instructions [id number]# 1.00TIFF Normal [facility] ED Clinical Summaryon 2022 ED Clinical Summary [address] [address] ED Clinical Summary Person Information Name: LORNA DEUTSCH [place] Age: 38 Years : 1985 Sex: Female Language: Marshallese PCP: Cris PENA CNP Marital Status: Visit [...] 08/14/2023 16:41:18 08/14/2023 16:41:18 08/14/2023 16:41:18 ADDRESS: [address] [place] [id number] PHYS DOC NOTES: MEDICAL INFORMATION: Prescriptions Given: New Medications [facility] 1986, [address] [facility] [address] [place], [place] [id number], [phone] clonazepam (ClonazePAM 0.5 mg Tab) 1 Tablets [...] INFORMATION: Instructions: Follow up: With: Address: When: [facility] In 3 days 08/17/2023 With: Address: When: Cris PENA [address] [place], [place] [phone] [facility] () In 3 days 08/17/2023 Comments: Follow-up with your primary care provider in 3 to 5 days. If symptoms worsen, do not improve, or new symptoms arise please report back to emergency department for further evaluation. DIAGNOSIS: Medication refill Normal [facility] ED Patient Education Noteon 08-14-2023 ED Patient Education Note Normal [facility] ED Patient Summaryon 023 ED Patient Summary [address] [address] Patient Discharge Instructions Person Information Name: LORNA DEUTSCH Age: 38 Years Arrival Date: 08/14/2023 15:54:23 Discharge Diagnosis: Medication refill Primary Care Physician: Cris PENA CNP Provider Information Primary Provider: Christian Locke MD Advanced Wooden Boat Builder:None The exam and treatment you received in the Emergency Department were for an urgent problem and are not intended as complete care. It is important that you follow up with a doctor, nurse practitioner, or physician?s nurseryman assistant for ongoing care. If your symptoms become worse or you do not improve as expected and you are unable to reach your usual health care provider, you should return to the Emergency Department. We are available 24 hours a day. TREVOR LORNA Russo has been given the following list of patient education materials, prescriptions and follow-up instructions: Follow-up Instructions: With: Address: When: [facility] In 3 days 08/17/2023 With: Address: When: Cris PENA [address] [place] [address] [employer] (1) In 3 days 08/17/2023 Comments: Follow-up [...] opioids can be used to help relieve hmetcylf-xl-ynhakk pain and are often prescribed following a [...] learn about the (more content not included)... [facility] Consent for Treatmenton Consent for Treatment [id number] .00TIFF [facility] Discharge Instructionson Discharge Instructions [id number] .00TIFF [facility] ED Clinical Summaryon 2022 ED Clinical Summary [address] [address] ED Clinical Summary Person Information Name: LORNA DEUTSCH [place] Age: 38 Years : 1985 Sex: Female Language: Marshallese PCP: Cris PENA CNP Marital Status: Visit [...] 08/13/2023 14:21:51 08/13/2023 14:21:51 08/13/2023 14:21:51 ADDRESS: [id number] [id number] PHYS DOC NOTES: MEDICAL INFORMATION: Prescriptions Given: [...] With: Address: When: Cris PENA [address] [place] [address] Business (1) In 3 days 08/16/2023 DIAGNOSIS: Anxiety Normal [facility] ED Note-Physicianon 08-13-20 ED Note-Physician Basic Information Time Seen: Natalya GARCIA Ricco 08/13/2023 14:03 Chief Complaint pt states worseing [...] In 3 days 08/16/2023 EST [address] [place] [phone] Business (1) Additional Instructions: Patient Education Managing Anxiety, Adult Attestation Patient seen and evaluated by the physician nurseryman assistant. Attending physician was present in the emergency department and supervised care. This visit was performed by both the physician and an APC. I performed all aspects of the MDM as documented. This report was transcribed using voice recognition software. Every effort was made to ensure accuracy, however, inadvertently computerized clamp truck driver mistakes may be present. Appropriate healthcare PPE [...] Denies Substanc (more content not included)... Normal [facility] Comment on above: Result Comment: Elec tronically Signed By: Ricco Hoang PA-C\.br\Date and Time Signed: 08/13/23 14:39 EDT\.br\Electronically Co-Signed By: Derrell Oarntes DO\.br\Date and Time Co-Signed: 08/13/23 15:08 EDT [...] Lifestyle ? (more content not included)... Normal [facility] ED Patient Summaryon 023 ED Patient Summary [address] [address] Patient Discharge Instructions Person Information Name: LORNA DEUTSCH Age: 38 Years Arrival Date: 08/13/2023 13:57:57 Discharge Diagnosis: Anxiety Primary Care Physician: Cris PENA CNP Provider Information Primary Provider: Derrell Orantes DO Advanced Wooden Boat Builder:Ricco Hoang PA-C The exam and treatment you received in the Emergency Department were for an urgent problem and are not intended as complete care. It is important that you follow up with a doctor, nurse practitioner, or physician?s nurseryman assistant for ongoing care. If your symptoms become worse or you do not improve as expected and you are unable to reach your usual health care provider, you should return to the Emergency Department. We are available 24 hours a day. YO DEUTSCHI Karan has been given the following list of patient education materials, prescriptions and follow-up instructions: Follow-up Instructions: With: Address: When: Cris PENA [address] [place] [address] Business (1) In 3 days 08/16/2023 In the event that this physician does not participate in your insurance network, please consult with your insurance company to find a nearby participating provider. Patient Education Materials: Managing Anxiety, Adult A MESSAGE TO ALL PATIENTS REGARDING OPIOIDS PRESCRIPTION OPIOIDS: WHAT YOU NEED TO KNOW Prescription opioids can be used to help relieve xkeckope-hq-fbjpao pain and are often prescribed following a [...] be struggling with addiction, tell your health foster care therapist and ask for guidance or call [facility]?S National Helpline at 4-972-408-ZVUG. u Source: Department of Health (more content not included)... [facility] Consent for Treatmenton 07-13 Consent for Treatment [id number] .00TIFF [facility] Discharge Instructionson Discharge Instructions [id number] 1.00TIFF [facility] ED Clinical Summaryon 2022 ED Clinical Summary [place] [address] ED Clinical Summary Person Information Name: LORNA DEUTSCH [place] Age: 38 Years : 1985 Sex: Female Language: Marshallese PCP: Cris PENA CNP Marital Status: Visit [...] 08/07/2023 06:53:52 08/07/2023 06:53:52 08/07/2023 06:53:52 ADDRESS: [id number] [phone] PHYS DOC NOTES: MEDICAL INFORMATION: Prescriptions Given: [...] up: With: Address: When: [facility] [phone] In 3 days 08/10/2023 With: Address: When: Cris PENA [address] [place] [phone] [facility] (1) In 3 days 08/10/2023 Comments: Please follow-up with your primary care doctor next 2 to 3 days for further evaluation and management. Return to the ED for any new or worsening symptoms. DIAGNOSIS: Anxiety; Methamphetamine use Normal [facility] ED Note-Physicianon 08-07-20 ED Note-Physician Basic [...] go to sleep with her mother or wjkfrf-rp-czv however they would not let her in [...] and Complexity of Problems Differential Diagnosis: [] [facility] Data External documents reviewed: [] My EKG [...] prescription medications Follow-up With When Contact Information Disha Chou [phone] In 3 days 08/10/2023 EDT Additional Instructions: Cris PENA In 3 days 08/10/2023 EDT [address] [place] [phone] [facility] (1) Additional Instructions: Please follow-up [...] 3 refills (more content not included)... Normal [facility] Comment on above: Result Comment: Elec [...] at home: (more content not included)... Normal [facility] ED Patient Summaryon 023 ED Patient Summary [address] [address] Patient Discharge Instructions Person Information Name: LORNA DEUTSCH Age: 38 Years Arrival Date: 08/07/2023 02:33:18 Discharge Diagnosis: Anxiety; Methamphetamine use Primary Care Physician: Cris PENA CNP Provider Information Primary Provider: Norma Dietz DO Advanced Wooden Boat Builder:None The exam and treatment you received in the Emergency Department were for an urgent problem and are not intended as complete care. It is important that you follow up with a doctor, nurse practitioner, or physician?s nurseryman assistant for ongoing care. If your symptoms [...] Instructions: With: Address: When: [facility] [phone] In 3 days 08/10/2023 With: Address: When: Cris PENA [address] [place] [address] [facility] (1) In 3 days 08/10/2023 Comments: Please [...] opioids can be used to help relieve naxezulb-je-loebbs pain and are often prescribed following a [...] (www.fda.gov/Drugs/Re sourcesForYou). ? Visit www.cdc.gov/drugoverd ose to lear (more content not included)... [facility] Patient Correspondenceon Patient Correspondence [id number] .[id number]:127 [facility] Patient Letter FTMCon 2022 Patient Letter [facility] [address] [place] [address] July 14, 2023 LORNA DEUTSCH [address] [id number] : 1985 To whom it may concern, [...] office with any questions or concerns at [phone]. Respectfully, ERNESTINE Deshpande [facility] Loni 07-07-2023 [facility] LORNA DEUTSCH ([id number]) 1985 F [place] Date Time Provider Department 07/07/23 LARA SALINAS ELIZABETHOTTONIELGa During your visit today, we recorded the following information about you: Allergies As of Date: 07/07/2023 (No Known Allergies) Date Reviewed: 04/24/2023 Reviewed by: Caitlin Cheatham APRN.AIR TWISTER WINDER - Fully Assessed Prescriptions as of 07/07/2023 [...] Encounter Status:Closed by LARA SALINAS on 07/07/23 [facility] Valproate [Mass/volume] in S maris or PlasmaOrdered By: Claudio Dee on 07-06-2023 Valproate [Mass/Vol] 40.5 ug/mL 50.0-100.0 [facility] Comment on above: Last dose: - Valproic Acid (in house)on 0 07-06-2023 Valproic Acid (in house) 40.5 ug/mL Low 50.0-100.0 [facility] Comment on above: Result Comment: Last dose: - PERFORMED BY: [place] [address] PATHOLOGIST [employer] DANYELL LIVINGSTON M.D. Performed By: #### C BC, CMP, ETOH #### [facility] [address] [place] [address] Cholesterol [Mass/volume] in Serum or PlasmaOrdered By: Bobo Shields on 07-03-2023 Cholesterol [Mass/Vol] 179 mg/dL 140-200 [facility] Comment on above: Chol less than [...] lead ECGon 07-03-2023 ECG 12 lead ECG [facility] Main [place] [address] [place] [address] Electrocardiograph Report Signed Patient: Lorna Deutsch MR#: [id number] : 1985 Acct:[id number] Age/Sex: 38 / F ADM Date: 07/02/23 Loc: Room: [address] [place] [address] Type: ADM IN Attending Dr: Bobo Shields [...] was found Confirmed by HUBER RAMOS [facility] ([id number][facility] on 07/03/2023 12:33:59 PM Referred By: Electronically Signed By:BRITNI NGO MD [facility] Transcribed By: MUS Signed By Britni Ngo MD, [facility] 07/03/23 1234 Normal [facility] Lipid Panelon 07-03-2023 Cholesterol [Mass/Vol] 179 mg/dL Normal 140-200 [facility] Comment on above: Result Comment: Chol less than 200 mg/dl low risk Chol 201-239 mg/dl borderline risk Chol 240 mg/dl and greater high risk Performed By: #### C BC, CMP, ETOH #### [facility] [address] [place] [id number] [place] Cholesterol in HDL [Mass/Vol] 40 mg/dL Normal 23-92 [facility] Comment on above: Result Comment: HDL CHOL ATP-III CLASSIFICATION Cardiovascular Risk HDL > or equal to 60 mg/dL LOW HDL < 40 mg/dL HIGH Performed By: #### C BC, CMP, ETOH #### [facility] [address] [place] [address] [place] Cholesterol.total/Andra sterol in HDL [Mass ratio] 4.5 {ratio} Normal <5.0 [facility] Comment on above: Performed By: #### C BC, CMP, ETOH #### [facility] [address] LDL Cholesterol,Calculated 111 mg/dL High 0-100 [facility] Comment on above: Result Comment: LDL ATP III CLASSIFICATION LDL less than 100 mg/dL Optimal LDL 100-129 mg/dL Near or above optimal LDL 130-159 mg/dL Borderline high LDL 160-189 mg/dL High LDL greater than 189 mg/dL Very high Performed By: #### C BC, CMP, ETOH #### [facility] [address] Triglyceride w/Reflex 138 mg/dL Normal 0-149 [facility] Comment on above: Result Comment: TRIG ATP III CLASSIFICATION TRIG less than 150 mg/dL Normal TRIG 150-199 mg/dL Borderline high TRIG 200-500 mg/dL High TRIG greater than 500 mg/dL Very high Standard traceable to the Center for Disease Conrtrol and Prevention (CDC) test method. Performed By: #### C BC, CMP, ETOH #### [facility] [address] VLDL CHOLESTEROL 27 mg/dL Normal [facility] Comment on above: Performed By: #### C BC, CMP, ETOH #### [facility] [address] Serum or plasma high density lipoprotein (HDL) cholesterol measurementOrdered By: Bobo Shields on 07-03-2023 Cholesterol in HDL [Mass/Vol] 40 mg/dL 23- [facility] Comment on above: HDL [...] Stim Hormone w/Rflx 5.18 u[iU]/mL Normal 0.45-5.33 [facility] Comment on above: Performed By: #### C BC, CMP, ETOH #### [facility] [address] Thyrotropin [Units/volume] i n Serum or PlasmaOrdered By: Bobo Shields on 07-03-2023 TSH Qn 5.18 m[IU]/L 0.45-5.33 [facility] Triglyceride [Mass/volume] i n Serum or PlasmaOrdered By: Bobo Shields on 07-03-2023 Triglyceride [Mass/Vol] 138 mg/dL 0-149 [facility] Comment on above: TRIG ATP III CLASSIF ICATIONTRIG less than 150 mg/dL NormalTRIG 150-199 mg/dL Borderline highTRIG 200-500 mg/dL High TRIG greater than 500 mg/dL Very highStandard traceable to the Center for Disease Conrtrol and Prevention (CDC) test method. Vitamin D 25 Hydroxy Totalon 07-03-2023 Vitamin D 25 Hydroxy Total 17.2 ng/mL Low 30-100 [facility] Comment on above: Result Comment: KAVON MIN D STATUS 25(OH)VITAMIN D RANGE (ng/mL) Deficient <20 Insufficient 20 to <30 Sufficient 30 to 100 Reference: Stephanie Guardado, Ro CORONEL, et al. Evaluation,treatment, and prevention of vitamin D deficiency; an Endocrine Society clinical practice guideline. JCEM. 2010; 96(7):1911-30. PERFORMED BY: [place] [address] PATHOLOGIST [employer] DANYELL LIVINGSTON M.D. Performed By: #### C BC, CMP, ETOH #### [facility] [address] [place] [id number] [facility] Vitamin D+Metabolites [Mass/ volume] in Serum or PlasmaOrdered By: Bobo Shields on 07-03-2023 Vitamin D+Metabolites [Mass/Vol] 17.2 ng/mL 30-100 [facility] Comment on above: VITAMIN D STATUS 25( OH)VITAMIN D RANGE (ng/mL) Deficient <20 Insufficient 20 to <30Sufficient 30 to 100Reference: Stephanie Guardado, Ro CORONEL, et al. Evaluation,treatment, and prevention of vitamin D deficiency; an Endocrine Society clinical practice guideline. JCEM. 2011 Apr; 96(7):1911-30. Loni 06-17-2023 JULIANN Telephone (PAINT[facility]) LORNA DEUTSCH ([id number]) 1985 F Date Time Provider Department 06/17/23 [...] N/A Person calling: self Call patient at: [phone] Was an appointment scheduled: Gaurav Obrien [facility] 06/17/2023 1:34 PM Signed Please advise thank you CLARA Aguilar June 17, 2023 1:34 PM Marvin Sanchez 06/18/2023 1:59 PM Signed The patient called back to ask if the script could be sent to another pharmacy. pregabalin (LYRICA) 100 mg capsule e- [facility] [address] [place] [address] [phone] 1985 Marvin Sanchez 06/18/2023 1:59 PM Signed Addended by: MARVIN SANCHEZ on: 06/18/2023 01:59 PM Modules accepted: Orders Allergies As of Date: 06/17/2023 (No Known Allergies) Date Reviewed: 04/24/2023 Reviewed by: Caitiln Cheatham APRN.AIR TWISTER WINDER - Fully Assessed Reason for Visit: Medication [...] Status:Closed by GAURAV TORREZ on 06/17/23 Normal [facility] Alanine aminotransferase [En zymatic activity/volume] in Serum or PlasmaOrdered By: Luis Armando Hendrix on 06-08-2023 ALT [Catalytic activity/Vol] 7 U/L [facility] Albumin [Mass/volume] in Ser [...] on 06-08-2023 Amphetamines Ql (U) Negative Negative [facility] Aspartate aminotransferase [ Enzymatic activity/volume] in [...] Basophils/100 WBC (Bld) 0.7 % . [facility] Benzodiazepines Screen Ql (U )Ordered By: Luis Armando Hendrix on 06-08-2023 Benzodiazepines Ql (U) Negative Negative [facility] Benzoylecgonine [Presence] i n Urine by Screen methodOrdered By: Luis Armando Hendrix on 06-08-2023 Benzoylecgonine Screen Ql (U) Negative Negative [facility] Bilirubin Test strip Ql (U)O rdered By: Luis Armando Hendrix on 06-08-2023 Bilirubin Ql (U) Negative Negative [facility] Bilirubin.total [Mass/volume ] in Serum or PlasmaOrdered By: Luis Armando Hendrix on 06-08-2023 Bilirubin [Mass/Vol] 0.3 mg/dL 0.3-1.0 [facility] Calcium [Mass/volume] in Ser um or PlasmaOrdered By: Luis Armando Hendrix on 06-08-2023 Calcium [Mass/Vol] 8.9 mg/dL 8.6-10.3 [facility] Cannabinoids [Presence] in U rine by [...] CO2 [Moles/Vol] 31.1 mmol/L 21.0-31.[address] [facility] Chloride [Moles/volume] in S maris or PlasmaOrdered By: Luis Armando Hendrix on 06-08-2023 Chloride [Moles/Vol] 106 mmol/L 98-107 [facility] Color Auto (U)Ordered By: Angelic Hendrix on 06-08-2023 Color (U) Yellow Yellow [facility] Complete Blood Count Auto Di ffon 06-08-2023 Basophils (Bld) [#/Vol] 0.0 10*3/uL Normal 0.0-0.2 [facility] Comment on above: Result Comment: PERF ORMED BY: [place] [address] PATHOLOGIST [employer] DANYELL LIVINGSTON M.D. Performed By: #### U A #### [address] Basophils/100 WBC (Bld) 0.7 % Normal . [facility] Comment on above: Performed By: #### U A #### [address] Eosinophils (Bld) [#/Vol] 0.1 10*3/uL Normal 0.0-0.45 [facility] Comment on above: Performed By: #### U A #### [address] Eosinophils/100 WBC (Bld) 2.2 % Normal . [facility] Comment on above: Performed By: #### U A #### [address] Erythrocyte distribution width (RBC) [Ratio] 13.5 % Normal 11.9-15.3 [facility] Comment on above: Performed By: #### U A #### [address] Hematocrit (Bld) [Volume fraction] 39.0 % Normal 34.0-46.4 [facility] Comment on above: Performed By: #### U A #### [address] Hemoglobin (Bld) [Mass/Vol] 13.0 g/dL Normal 11.8-15.4 [facility] Comment on above: Performed By: #### U A #### [address] Lymphocytes (Bld) [#/Vol] 3.0 10*3/uL Normal 1.00-4.8 [facility] Comment on above: Performed By: #### U A #### [address] Lymphocytes/100 WBC (Bld) 58.8 % Normal . [facility] Comment on above: Performed By: #### U A #### [address] MCH (RBC) [Entitic mass] 30.0 pg Normal 24.7-34.3 [facility] Comment on above: Performed By: #### U A #### [address] MCV (RBC) [Entitic vol] 89.7 fL Normal 80-100 [facility] Comment on above: Performed By: #### U A #### [address] Mean Corpuscular HGB Conc 33.4 g/dL Normal 32.0-35.0 [facility] Comment on above: Performed By: #### U A #### [address] Monocytes (Bld) [#/Vol] 0.5 10*3/uL Normal 0.0-0.8 [facility] Comment on above: Performed By: #### U A #### [address] Monocytes/100 WBC (Bld) 19.94 % Normal 0.00-20.00 [facility] Comment on above: Performed By: #### U A #### [address] Monocytes/100 WBC (Bld) 9.4 % Normal . [facility] Comment on above: Performed By: #### U A #### [address] Neutrophils (Bld) [#/Vol] 1.5 10*3/uL Low 1.8-7.7 [facility] Comment on above: Performed By: #### U A #### [address] Neutrophils/100 WBC (Bld) 28.9 % Normal . [facility] Comment on above: Performed By: #### U A #### [address] NRBC% 0.1 /100{WBC} Normal 0-0.5 [facility] Comment on above: Performed By: #### U A #### [address] Platelet mean volume (Bld) [Entitic vol] 9.2 fL Normal 6.3-10.7 [facility] Comment on above: Performed By: #### U A #### [address] Platelets (Bld) [#/Vol] 164 10*3/uL Normal 150-450 [facility] Comment on above: Performed By: #### U A #### [address] RBC (Bld) [#/Vol] 4.35 10*6/uL Normal 3.60-5.00 [facility] Comment on above: Performed By: #### U A #### [address] WBC (Bld) [#/Vol] 5.1 10*3/uL Normal 3.8-11.6 [facility] Comment on above: Performed By: #### U A #### [address] Comprehensive Metabolic Pane selam 06-08-2023 Albumin [Mass/Vol] 3.6 g/dL Normal 3.5-5.7 [facility] Comment on above: Performed By: #### U A #### [address] Albumin/Globulin [Mass ratio] 1.2 {ratio} Normal [facility] Comment on above: Performed By: #### U A #### [address] ALP [Catalytic activity/Vol] 35 U/L Normal 34-104 [facility] Comment on above: Performed By: #### U A #### [address] ALT [Catalytic activity/Vol] 7 U/L Normal 7-52 [facility] Comment on above: Performed By: #### U A #### [address] Anion gap [Moles/Vol] 6.7 mmol/L Normal 6.0-15.0 [facility] Comment on above: Performed By: #### U A #### [address] AST [Catalytic activity/Vol] 9 U/L Low 13-39 [facility] Comment on above: Performed By: #### U A #### [address] Bilirubin [Mass/Vol] 0.3 mg/dL Normal 0.3-1.0 [facility] Comment on above: Performed By: #### U A #### [address] Calcium [Mass/Vol] 8.9 mg/dL Normal 8.6-10.3 [facility] Comment on above: Performed By: #### U A #### [address] Chloride [Moles/Vol] 106 mmol/L Normal 98-107 [facility] Comment on above: Performed By: #### U A #### [address] CO2 [Moles/Vol] 31.1 mmol/L High 21.0-31.0 [facility] Comment on above: Performed By: #### U A #### [address] Creatinine [Mass/Vol] 0.66 mg/dL Normal 0.60-1.20 [facility] Comment on above: Performed By: #### U A #### [address] Creatinine Clr Calc Pharmacy 104.00 Normal [facility] Comment on above: Result Comment: PERF ORMED BY: [place] [address] PATHOLOGIST [employer] DANYELL LIVINGSTON M.D. Performed By: #### U A #### [address] GFR/1.73 sq M.predicted MDRD (S/P/Bld) [Vol rate/Area] mL/min/{1.73_m2} Normal [facility] Comment on above: Performed By: #### U A #### [address] Globulin (S) [Mass/Vol] 2.9 g/dL Normal [facility] Comment on above: Performed By: #### U A #### [address] Glucose [Mass/Vol] 90 mg/dL Normal 70-100 [facility] Comment on above: Result Comment: [facility] Glucose Reference Range is dependent on time and content of last meal. Glucose of more than 200 mg/dL in a nonstressed, ambulatory subject supports the diagnosis of Diabetes Mellitus. ADA recommended reference range Performed By: #### U A #### [address] Potassium [Moles/Vol] 3.8 mmol/L Normal 3.5-5.1 [facility] Comment on above: Performed By: #### U A #### [address] Protein [Mass/Vol] 6.5 g/dL Normal 6.4-8.9 [facility] Comment on above: Performed By: #### U A #### [address] Sodium [Moles/Vol] 140 mmol/L Normal 136-145 [facility] Comment on above: Performed By: #### U A #### [address] Urea nitrogen [Mass/Vol] 17 mg/dL Normal 7-25 [facility] Comment on above: Performed By: #### U A #### [address] Creatinine [Mass/volume] in Serum or PlasmaOrdered By: Luis Armando Hendrix on 06-08-2023 Creatinine [Mass/Vol] 0.66 mg/dL 0.60-1.20 [facility] Dipstick and Microscopicon 0 06-08-2023 Appearance (U) Turbid Critically abnormal Clear [facility] Comment on above: Order Comment: Name Collection Type:: Clean-Voided Midstream Performed By: #### U A #### [place] [address] [place] Bacteria,Urine 4+ High None Seen [facility] Comment on above: Order Comment: Name Collection Type:: Clean-Voided Midstream Performed By: #### U A #### [place] [address] [place] Bilirubin,Urine Negative Normal Negative [facility] Comment on above: Order Comment: Name Collection Type:: Clean-Voided Midstream Performed By: #### U A #### [place] [address] [place] Color (U) Yellow Normal Yellow [facility] Comment on above: Order Comment: Name Collection Type:: Clean-Voided Midstream Performed By: #### U A #### [place] [address] [place] Glucose Ql (U) Normal Normal Normal [facility] Comment on above: Order Comment: Name Collection Type:: Clean-Voided Midstream Performed By: #### U A #### [place] [address] [place] Hyaline Casts,Urine 0-8 Normal 0-8 [facility] Comment on above: Order Comment: Name Collection Type:: Clean-Voided Midstream Performed By: #### U A #### [place] [address] [place] Ketones Ql (U) Negative Normal Negative [facility] Comment on above: Order Comment: Name Collection Type:: Clean-Voided Midstream Performed By: #### U A #### [place] [address] [place] Leukocyte esterase Test strip Ql (U) 4+ High Negative [facility] Comment on above: Order Comment: Name Collection Type:: Clean-Voided Midstream Performed By: #### U A #### [place] [address] [place] Nitrite,Urine Positive High Negative [facility] Comment on above: Order Comment: Name Collection Type:: Clean-Voided Midstream Performed By: #### U A #### [place] [address] [place] Occult Blood,Urine Trace High Negative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 #### C BC, CMP, ETOH #### [place] [address] [place] Monocytes (Bld) [#/Vol] 0.5 10*3/uL Normal 0.0-0.8 [facility] Comment on above: Performed By: #### C BC, CMP, ETOH #### [address] Monocytes/100 WBC (Bld) 20.22 % High 0.00-20.00 [facility] Comment on above: Result Comment: For adults in ED, MDW > 20.0 may be associated with a higher risk of sepsis during the first 12 hrs of hospital admission Performed By: #### C BC, CMP, ETOH #### [address] Monocytes/100 WBC (Bld) 5.0 % Normal . T he [facility] Comment on above: Performed By: #### C BC, CMP, ETOH #### [address] Neutrophils (Bld) [#/Vol] 6.1 10*3/uL Normal 1.8-7.7 [facility] Comment on above: Performed By: #### C BC, CMP, ETOH #### [address] Neutrophils/100 WBC (Bld) 64.0 % Normal . [facility] Comment on above: Performed By: #### C BC, CMP, ETOH #### [address] NRBC% 0.1 /100{WBC} Normal 0-0.5 [facility] Comment on above: Performed By: #### C BC, CMP, ETOH #### [address] Platelet mean volume (Bld) [Entitic vol] 8.5 fL Normal 6.3-10.7 [facility] Comment on above: Performed By: #### C BC, CMP, ETOH #### [place] [address] [place] Platelets (Bld) [#/Vol] 252 10*3/uL Normal 150-450 [facility] Comment on above: Performed By: #### C BC, CMP, ETOH #### [place] [address] [place] RBC (Bld) [#/Vol] 4.31 10*6/uL Normal 3.60-5.00 [facility] Comment on above: Performed By: #### C BC, CMP, ETOH #### [address] WBC (Bld) [#/Vol] 9.5 10*3/uL Normal 3.8-11.6 [facility] Comment on above: Performed By: #### C BC, CMP, ETOH #### [address] Comprehensive Metabolic Pane selam 02-03-2023 Albumin [Mass/Vol] 3.8 g/dL Normal 3.5-5.7 [facility] Comment on above: Performed By: #### C BC, CMP, ETOH #### [address] Albumin/Globulin [Mass ratio] 1.3 {ratio} Normal [facility] Comment on above: Performed By: #### C BC, CMP, ETOH #### [address] ALP [Catalytic activity/Vol] 34 U/L Normal 34-104 [facility] Comment on above: Performed By: #### C BC, CMP, ETOH #### [address] ALT [Catalytic activity/Vol] 7 U/L Normal 7-52 [facility] Comment on above: Performed By: #### C BC, CMP, ETOH #### [address] Anion gap [Moles/Vol] 9.3 mmol/L Normal 6.0-15.0 [facility] Comment on above: Performed By: #### C BC, CMP, ETOH #### [address] AST [Catalytic activity/Vol] 13 U/L Normal 13-39 [facility] Comment on above: Performed By: #### C BC, CMP, ETOH #### [address] Bilirubin [Mass/Vol] 0.3 mg/dL Normal 0.3-1.0 [facility] Comment on above: Performed By: #### C BC, CMP, ETOH #### [address] Calcium [Mass/Vol] 8.4 mg/dL Low 8.6-10.3 [facility] Comment on above: Performed By: #### C BC, CMP, ETOH #### [address] Chloride [Moles/Vol] 104 mmol/L Normal 98-107 [facility] Comment on above: Performed By: #### C BC, CMP, ETOH #### [address] CO2 [Moles/Vol] 27.6 mmol/L Normal 21.0-31.0 [facility] Comment on above: Performed By: #### C BC, CMP, ETOH #### [address] Creatinine [Mass/Vol] 0.77 mg/dL Normal 0.60-1.20 [facility] Comment on above: Performed By: #### C BC, CMP, ETOH #### [address] Creatinine Clr Calc Pharmacy 89.14 Normal [facility] Comment on above: Result Comment: PERF ORMED BY: [place] [address] PATHOLOGIST MAID [employer] DANYELL LIVINGSTON M.D. Performed By: #### C BC, CMP, ETOH #### [address] GFR/1.73 sq M.predicted MDRD (S/P/Bld) [Vol rate/Area] mL/min/{1.73_m2} Normal [facility] Comment on above: Performed By: #### C BC, CMP, ETOH #### [address] Globulin (S) [Mass/Vol] 3.0 g/dL Normal [facility] Comment on above: Performed By: #### C BC, CMP, ETOH #### [address] Glucose [Mass/Vol] 83 mg/dL Normal 70-100 [facility] Comment on above: Result Comment: [facility] Glucose Reference Range is dependent on time and content of last meal. Glucose of more than 200 mg/dL in a nonstressed, ambulatory subject supports the diagnosis of Diabetes Mellitus. ADA recommended reference range Performed By: #### C BC, CMP, ETOH #### [facility] [address] [place] [address] [place] Potassium [Moles/Vol] 3.9 mmol/L Normal 3.5-5.1 [facility] Comment on above: Performed By: #### C BC, CMP, ETOH #### [facility] [address] [place] [id number] [place] Protein [Mass/Vol] 6.8 g/dL Normal 6.4-8.9 [facility] Comment on above: Performed By: #### C BC, CMP, ETOH #### [facility] [address] [id number] [place] Sodium [Moles/Vol] 137 mmol/L Normal 136-145 [facility] Comment on above: Performed By: #### C BC, CMP, ETOH #### [facility] [address] [id number] [place] Urea nitrogen [Mass/Vol] 17 mg/dL Normal 7-25 [facility] Comment on above: Performed By: #### C BC, CMP, ETOH #### [facility] [address] [place] [address] [place] Creatinine [Mass/volume] in Serum or PlasmaOrdered By: Leonard Salazar on 02-03-2023 Creatinine [Mass/Vol] 0.77 mg/dL 0.60-1.20 [facility] Dipstick and Microscopicon 0 02-03-2023 Appearance (U) Cloudy Critically abnormal Clear [facility] Comment on above: Order Comment: Name Collection Type:: Clean-Voided Midstream Performed By: #### C UU, URDS, UHCG, ADDONUAPLUS #### [facility] [address] [id number] [place] Bacteria,Urine 1+ High None Seen [facility] Comment on above: Order Comment: Name Collection Type:: Clean-Voided Midstream Performed By: #### C UU, URDS, UHCG, ADDONUAPLUS #### [address] Bilirubin,Urine Negative Normal Negative [facility] Comment on above: Order Comment: Name Collection Type:: Clean-Voided Midstream Performed By: #### C UU, URDS, UHCG, ADDONUAPLUS #### [address] Color (U) Yellow Normal Yellow [facility] Comment on above: Order Comment: Name Collection Type:: Clean-Voided Midstream Performed By: #### C UU, URDS, UHCG, ADDONUAPLUS #### [address] Glucose Ql (U) Normal Normal Normal [facility] Comment on above: Order Comment: Name Collection Type:: Clean-Voided Midstream Performed By: #### C UU, URDS, UHCG, ADDONUAPLUS #### [address] Hyaline Casts,Urine None Seen Normal 0-1 [facility] Comment on above: Order Comment: Name Collection Type:: Clean-Voided Midstream Performed By: #### C UU, URDS, UHCG, ADDONUAPLUS #### [address] Ketones Ql (U) Trace High Negative [facility] Comment on above: Order Comment: Name Collection Type:: Clean-Voided Midstream Performed By: #### C UU, URDS, UHCG, ADDONUAPLUS #### [address] Leukocyte esterase Test strip Ql (U) 1+ High Negative [facility] Comment on above: Order Comment: Name Collection Type:: Clean-Voided Midstream Performed By: #### C UU, URDS, UHCG, ADDONUAPLUS #### [place] [address] [place] Nitrite,Urine Negative Normal Negative [facility] Comment on above: Order Comment: Name Collection Type:: Clean-Voided Midstream Performed By: #### C UU, URDS, UHCG, ADDONUAPLUS #### [address] Occult Blood,Urine Negative Normal Negative [facility] Comment on above: Order Comment: Name Collection Type:: Clean-Voided Midstream Performed By: #### C UU, URDS, UHCG, ADDONUAPLUS #### [address] Other Casts,Urine None Seen Normal None Seen [facility] Comment on above: Order Comment: Name Collection Type:: Clean-Voided Midstream Performed By: #### C UU, URDS, UHCG, ADDONUAPLUS #### [address] pH (U) 7.5 [pH] Normal 5.0-9.0 [facility] Comment on above: Order Comment: Name Collection Type:: Clean-Voided Midstream Performed By: #### C UU, URDS, UHCG, ADDONUAPLUS #### [address] Protein,Urine Negative Normal Negative [facility] Comment on above: Order Comment: Name Collection Type:: Clean-Voided Midstream Performed By: #### C UU, URDS, UHCG, ADDONUAPLUS #### [place] [address] [place] RBC,Urine 1-2 Normal 0-4 [facility] Comment on above: Order Comment: Name Collection Type:: Clean-Voided Midstream Performed By: #### C UU, URDS, UHCG, ADDONUAPLUS #### [address] Specificy [place],Urine 1.025 Normal 1.001-1.030 [facility] Comment on above: Order Comment: Name Collection Type:: Clean-Voided Midstream Performed By: #### C UU, URDS, UHCG, ADDONUAPLUS #### [address] Squamous Epithelial Cell,Urine 20-30 High 0-2 [facility] Comment on above: Order Comment: Name Collection Type:: Clean-Voided Midstream Performed By: #### C UU, URDS, UHCG, ADDONUAPLUS #### [address] Urobilinogen,Urine Normal Normal Normal [facility] Comment on above: Order Comment: Name Collection Type:: Clean-Voided Midstream Performed By: #### C UU, URDS, UHCG, ADDONUAPLUS #### [address] WBC,Urine 5-9 High 0-4 [facility] Comment on above: Order Comment: Name Collection Type:: Clean-Voided Midstream Performed By: #### C UU, URDS, UHCG, ADDONUAPLUS #### [address] Drug Screen,Urineon 02-04-20 23 Amphetamine Screen,Urine Positive High Negative [facility] Comment on above: Performed By: #### U A #### [address] Barbiturate Screen,Urine Negative Normal Negative [facility] Comment on above: Performed By: #### U A #### [address] Benzodiazepines Screen,Urine Negative Normal Negative [facility] Comment on above: Performed By: #### U A #### [address] Cannabinoid Screen,Urine Negative Normal Negative [facility] Comment on above: Result Comment: Thes e are unconfirmed results and should not be used for legal purposes. Drug Cut-Off Concentration: AMPH 1000 ng/mL SARA 200 ng/mL MARTÍNEZ 200 ng/mL COCM 300 ng/mL OP 300 ng/mL PCP 25 ng/mL THC 20 ng/mL PERFORMED BY: [place] [address] PATHOLOGIST [employer] DANYELL LIVINGSTON M.D. Performed By: #### U A #### [address] Cocaine Screen,Urine Negative Normal Negative [facility] Comment on above: Performed By: #### U A #### [address] Opiate Screen,Urine Negative Normal Negative [facility] Comment on above: Performed By: #### U A #### [address] Phencyclidine Screen,Urine Negative Normal Negative [facility] Comment on above: Performed By: #### U A #### [address] Eosinophils Auto (Bld) [#/Vo l]Ordered By: [...] Leonard Salazar on 02-03-2023 Ethanol [Mass/Vol] mg/dL [facility] Ethanol [Mass/Vol] TNP [facility] Comment on above: Test not performed Ethyl Alcohol Profileon 01-11 Ethanol [Mass/Vol] mg/dL Normal [facility] Comment on above: Performed By: #### C BC, CMP, ETOH #### [facility] [address] [place] [address] Percent Ethanol Not performed Normal [facility] Comment on above: Result Comment: PERF ORMED BY: [place] [address] PATHOLOGIST [employer] DANYELL LIVINGSTON M.D. Performed By: #### C BC, CMP, ETOH #### [facility] [address] [place] [address] Globulin Calc (S) [Mass/Vol] Ordered By: Leonard Salazar on 02-03-2023 Globulin (S) [Mass/Vol] 3.0 g/dL [facility] Glucose [Mass/volume] in Ser um or PlasmaOrdered By: Leonard Salazar on 02-03-2023 Glucose [Mass/Vol] 83 mg/dL 70-100 [facility] Comment on above: ADA recommended refe [...] HCG ( test) Ql (U) Negative Normal [facility] Comment on above: Order Comment: Name Collection Type:: Clean-Voided Midstream Result Comment: PERF ORMED BY: [place] [address] PATHOLOGIST [employer] DANYELL LIVINGSTON M.D. Performed By: #### C UU, URDS, UHCG, ADDONUAPLUS #### [facility] [address] [place], [place] [id number] [facility] Hematocrit Auto (Bld) [Volum e fraction]Ordered By: Leonard Salazar on 02-03-2023 Hematocrit (Bld) [Volume fraction] 39.9 % 34.0-46.4 [facility] Hemoglobin [Mass/volume] in BloodOrdered By: Leonard Salazar on 02-03-2023 Hemoglobin (Bld) [Mass/Vol] 13.4 g/dL 11.8-15.4 [facility] Ketones Auto test strip (U) [Mass/Vol]Ordered By: Leonard Salazar on 02-03-2023 Ketones (U) [Mass/Vol] Trace Negative [facility] Leukocytes [#/volume] correc neema for nucleated [...] 02-03-2023 MCHC (RBC) [Mass/Vol] 33.5 g/dL 32.0-35.0 [facility] MCV Auto (RBC) [Entitic vol] Ordered By: Leonard Salazar on 02-03-2023 MCV (RBC) [Entitic vol] 92.6 fL 80-100 [facility] Monocyte distribution width [Entitic volume] in [...] Monocytes/100 WBC (Bld) 5.0 % . [facility] Neutrophils Auto (Bld) [#/Vo l]Ordered By: [...] 02-03-2023 Opiates Screen Ql (U) Negative Negative [facility] Phencyclidine Screen Ql (U)O rdered By: Leonard Salazar on 02-03-2023 Phencyclidine Ql (U) Negative Negative [facility] Platelet mean volume Auto (B ld) [Entitic vol]Ordered By: Leonard Salazar on 02-03-2023 Platelet mean volume (Bld) [Entitic vol] 8.5 fL 6.3-10.7 [facility] Platelets Auto (Bld) [#/Vol] Ordered By: Leonard Salazar on 02-03-2023 Platelets (Bld) [#/Vol] 252 10*3/uL 150-450 [facility] Potassium [Moles/volume] in Serum or PlasmaOrdered By: Leonard Salazar on 02-03-2023 Potassium [Moles/Vol] 3.9 mmol/L 3.5-5.1 [facility] Protein Auto test strip (U) [Mass/Vol]Ordered By: Leonard Salazar on 02-03-2023 Protein (U) [Mass/Vol] Negative Negative [facility] Protein [Mass/volume] in Ser um or PlasmaOrdered By: Leonard Salazar on 02-03-2023 Protein [Mass/Vol] 6.8 g/dL 6.4-8.9 [facility] RBC Auto (Bld) [#/Vol]Ordere d By: Leonard Salazar on 02-03-2023 RBC (Bld) [#/Vol] 4.31 10*6/uL 3.60-5.[address] [facility] Serum or plasma albumin/glob ulin mass ratioOrdered By: Leonard Salazar on 02-03-2023 Albumin/Globulin [Mass ratio] 1.3 {ratio} [facility] Serum or plasma anion gap de terminationOrdered By: Leonard Salazar on 02-03-2023 Anion gap [Moles/Vol] 9.3 mmol/L 6.0-15.0 [facility] Sodium [Moles/volume] in Ser um or PlasmaOrdered By: Leonard Salazar on 02-03-2023 Sodium [Moles/Vol] 137 mmol/L 136-145 [facility] Specific gravity Auto test s trip [...] bacterial skin contaminants 2 Days PERFORMED BY: [facility] [address] [place] [address] PATHOLOGIST [employer] DANYELL LIVINGSTON M.D. Normal [facility] Comment on above: Performed By: #### U A #### [facility] [address] [id number] [facility] Urine bacteria detection by automated methodOrdered By: Leonard Salazar on 02-03-2023 Bacteria Auto Ql (U) 1+ None Seen [facility] Urine clarity by refractomet ry automatedOrdered [...] 02-03-2023 WBC (Bld) [#/Vol] 9.5 10*3/uL 3.8-11.6 [facility] pH Auto test strip (U)Ordere d By: Leonard Salazar on 02-03-2023 pH (U) 7.5 [pH] 5.0-9.0 [facility] ED Note-Physicianon 01-28-20 ED Note-Physician [id number]#1 .00CD:127 Normal [facility] Cholesterol [Mass/volume] in Serum or PlasmaOrdered By: Bobo Shields on 01-15-2023 Cholesterol [Mass/Vol] 220 mg/dL 140-200 [facility] Comment on above: Chol less than [...] VLDL [Mass/Vol] 23 mg/dL [facility] Serum or plasma high density lipoprotein [...] ratio] 4.8 {ratio} <5.0 [facility] Thyrotropin [Units/volume] i n Serum or PlasmaOrdered By: Bobo Shields on 01-15-2023 TSH Qn 1.74 m[IU]/L 0.45-5.33 [facility] Triglyceride [Mass/volume] i n Serum or PlasmaOrdered By: Bobo Shields on 01-15-2023 Triglyceride [Mass/Vol] 119 mg/dL 0-149 [facility] Comment on above: TRIG ATP III CLASSIF ICATIONTRIG less than 150 mg/dL NormalTRIG 150-199 mg/dL Borderline highTRIG 200-500 mg/dL High TRIG greater than 500 mg/dL Very highStandard traceable to the Center for Disease Conrtrol and Prevention (CDC) test method. Vitamin D+Metabolites [Mass/ volume] in Serum or [...] Trimethoprim/Sulfamet hoxazole >=320 R F Normal [facility] Comment on above: Performed By: #### P REG #### [facility] [address] [place] [address] Dr. Efren Parra Coding Summary.on 01-14-2023 Coding Summary. CD:[id number] W w+PGhlYWQ+RZ4KIHTzT73 vaJKoiH2pQ0OHXTgLFclp AZEIOBnPZnDpjhKlDJ8pn XNjZXJu IC8+EG5pIPXtHksopMWlq 5P3xNH7H10lvh9pDOgxrW I9NGVgYlBrlbguw5uzaPx 6IDcuNmluOyBt EIBkpE65LHJ7uQ63Gk13x ZYmgDGbw1jovTq8KhLiTU VxSIE9mHgvOCxwt2TzRGY iI58cqAYdq3O1 QMCdbIbwxXRnXbWdpNM2c H1kPEipgcskd7oopawhHy x2zu86zNZng9I6lGT2H7U kygT1PEJonODj YtrdvRBWwP2sktpbe4bef blvNmKcQFIfXUv3QNf0LF KrjBgeMkZsRK29ATA5IJL kmwBuX7ZrDZPl mCiyQhG0p7K7Qc4ET7ODA gfjY2XZZULZSSmlpJM+PC 03zw54R4PtEhiiZhn3JVL cFFL9oAI1wJ6z QHXhQCjbh0H8dNG4F4Fvl sWvcn3iz0jrKJXoAYhvM7 7xfTCei1Q8FPHalQT9LZG guSthQkOgzK65 Oyc+GKNtgOcyn4LnUxtfl 9tbw0xbiRu4RxvwHICnpp MewWlpIFT7e8YbJd1uISM fcGO0jGG6gZ2n RrAgYsS9JRuoU137ScFxu YVcXryiT07bX5IrkZF+PH BdNtk8SKZbkUakGU6lY6D hZGRpbmctbGVm qWdwEX4xFPIuvpalHQBwl V4fVYRdA8a9NvOwFhH1VE mrG2CiYFAuslazXd78jY0 bAxMtBqR9FLum H2HtcgG1JQBmfNBdHTusR TH1Z69hd9J3LTMaTKUaTQ S4fHK4yI6ikGekzovveUC mdDsgdmVydGlj EZqcPEokH412OOPjlDvmW kNvZGluZyBEYXRlOiAgMD QvMDUvMjAyMzwvdGQ+PHR tXSS4nDecIOWp zQNjQLxzDj2cyTmlpZogE P4aNZAehzgbJMTchY9nNQ SmpOAdyNmoXI6vPDKqtbx su396WrXsUOU2 MCZsmLOnO2HgwG7xHyLpD ZZbLRGiL0KnlYFaFZmuQ4 97GVpdIfM9IZTuqaKcX6D sLWFsaWduOiB0 j2D0Ic7We6XpzsjyN4Rcy SXeYyOqXqhwISy4P8OyNs wvdHI+EJ77FBSbZI53EUv 4KOB8qJovHAbi KPMbD2TclZ8vRcSjWFLpU GRkOyc+PHRhYmxlIHdpZH RoPScxMDAlJyBzdHlsZT0 fFr8pQVSaTNQu wUhmaEGtHtZad3zhDCJkX MvhOM2gjZtrY9FiyNX8DR Ysc1o7Dy96L06cX4KzwGQ +ZAJquFA0kEX1 lM4ePeVfUtV5XOvnN939Y mSwjOFzDjoej5vca7dykJ i4YcR2OQDorrJetDodPHD 0l3EhMh21I97i IHdpZHRoPSIxNSUiIHZhb Wyvkl9heM1gQa5+PGNvbC T1vTB0nS7sQbVaSvV3NYa fC975BsUdmBNj Etczh5uue4qwzEf1LjKoX EOkdxHsxAuoAAV9e1FdGb 71N2GfsMibs8YkCpu2xw0 6gTAoi5T6oXO4 W4HhTUVoumvsrRThtOziA S4dOMPjszetMHVqfG2rTQ SzV7h6NvUmMbO6DQpnM3C fiiZ2KOIsoVHq FWZonFCEqL4locnxc4ujt qjvKtSeIJZxQMs3YHq4AA NtgFcyJcBfWQN1DqU1LOZ 2oFLncA9aqDag tfjuuO9yAoy+JPD6cJOpg VFNZL9vWjmqqHA+PHRkIH A4iJlkIJdsFLCvvH0dDGL tH0b6OiBfYpH4 QCruC1WlizR0CVXknDVvW XEubHHHtL9skizrh4ocem npUeLkAUSvHMi8ZNu4ZUU saWduOiBsZWZ0 GkV6UUN9oBSzvB5xrUgrx bhnnB2pVyk+QmlydGggRG X8IPk0X5CrRkl5OBOvrZy lZI6lcBXxSKwy Vc8yrAlncRzpIZ7gFOQmn vrpm183UmZcn0zzRJJifF OuEJtbKDI0Y58hl0V5NCS cFBKtEZG8eQC5 cW6mcFwikruvoPSkuVekp mFhdBfcXVziZBijX242ND PdpHltKwLsOQu8U9FcEib 2JELguHhoBQ1o vBPpLPreAz2lqVdikSgcP J6bOAHkdsivi563WeSgb0 hkKEXaoRLqTVspGBO6N19 bc2D2QJHrPLFg KBU4rHL6aO7iuYvnfzisq GVmdDsgdmVydGljYWwtYW ogR954PISiaDeuVnRnvPg 9Q3OsGpl1EQAm kHmiUB8gxKCmOApcQi9vm DbulGofPF6xRTMcuhddu2 37KvZdb2ytVWWwsHKzRSb rIIA2D76xq3H1 HPBjPKKmFZJ9tLG6qF4ja GlnbjogbGVmdDsgdmVydG agIWrmDPpdC979ONXnkMz nPlBhdGllbnQg ECpaXJx4K6TeWydjgLO+P Q40ETRaIP26dRYlaFTzl7 mvpNm2ZvQeSBViMXC2xKq mPIttq3QiPDRo P43cuYImb0W6PZZsyRccj FVvRdKkdVR8jE7uKGudgd unz6pwucanKowqz0hblq8 4zI11T67bPEyf ZHRoPSIzMCUiIHZhbGlnb b9ixB6oZe3+XQVcnHZ7wD J2fA0qBHXaLiT9IFwfA87 9InRvcCIvPjxj m3szu8zsfGa6HpZ2BFDkw yNxaFqdRCB0e5PnAr07S1 9sIHdpZHRoPSIyMCUiIHZ puEyjqp8xqE4c Ii8+EDPafBW9vEB7sU4oM vSsGbR0WIjsL068SjZtdQ ZdPqowO88tW0DpmDP+PHR tBsa9SJKphZrs AE6yyFDvYSwcWb7sFHE3T fUeXfAlGUpdI0UaYFDetd ngeqreaXB0OKYhJMMqfU3 5Wd0ovMyyXXTw pRCZhU3rpbesb8wxrgvaP pHaVDMuWEn1GDu8PWZslU jpBpAkCEZ3ToO5BLW3nPW hfA2jgQhmhmxf fN4qM9ExDZGeahkmUm71y C7yQuKyGuX1JDgiKtv+Rk 5WHDVIQPICMGCBWJQZPV2 2GG81zYZru9P9 tBO9N1DuXQLemhgcdjcdd QU0NNVaRMUppR46hJUqXJ crWv5jd5Q7b128FVSjVFC feP93Lr0bkNgt UGQawRDYfF1psdpii3mzq lbaZtBmILOzMEd3GXj0RJ OyiHbzJmKhKDH1ZoV2TEZ 3lKSowD6hiQnl meezmW1jXar+MDMvMzEvM Gx9ZYtibIO+OQPfPIF0uM fqTQgxLTNfwP5eSCWhS2h 4FdYoCrY8BUse P2RdUBWddwhjHe87kN3bB lVyLgX7YAqcN5XclkE8QZ MzmKAvVTtnUZF2M57pz2Q 4TGXeBTCtTYX7 kRG1eM3shHrxmfguqGWzd DsgdmVydGljYWwtYWxpZ2 64EJHeoOliFcP0FPcjYZH rHZ99TN19gLRl v1T5cDK9P9MdVNCwhnoud mmhyZZ7RCCmUGNrtE34cX ReLTjkIv2sf0L6x939RNB jTMRosT48Th8y fMmbXWIcwDAHoH8dttvho 8ofgjsrNkQrKBCkRDp5GS a1VZJsdFdvSrJkUCD3SgP 7HMO2dANvsG1v jRunmvkvoQ0fFko+RmVtY UsoLB45ZH56cZWeo9T6gD I2O5GiPGPtyywjazwppMU 6DTIfDFCbbN91 jNMeNSqaAa9ro8X6v811T EYyEKEpaR83Gw2hvIoyDP PkqUOZbK2xmalfx6lbppr gIzAwMDAwMDt0 RUs7PPObsYukBbLfZZF5T rH5SVA7aPCwjB9rgIgicy aooX0yGww+QJ7tzmkfhbV 7BS27LM05I4Tv PjwvdGFibGU+PHRhYmxlI HdpZHRoPScxMDAlJyBzdH tqTI3lDl9aQNDqARZiyLe woOWzZcHvw2za HVHuHErtWX4tjGbrU2Deu NI3XKFas5f2Gr76Q02uC5 JvdXA+ZPJrwMT9oUF4gO9 sRnNmAvV1NUli P848EaEyoGLeBphky2zca 9tkaUl1NqOzSAAyekEyeZ yuHHS6o8DgSs37Z61sLFv pZHRoPSIyMCUi ACFlxFzphq8eiW1jUo5+P QBasEB2uMN7sK2mPxPsGm E1RXsjZ578SrFvbYJhYbl iY02yN4PwfNS+ SCXeTat8EXUbyFspYR4cx AGfQNlyBd2cCXF8XyMjWf AaRWxmD0RsYKJwermurcf faBJ0IKSxMVVl vJ29Vp8gmBfgCd5oOVZzG IA7HHHnaFLiK1VvlL8jCx LqYDPsYSHkF2WpnHEjCGc dL998CXovLaN6 HZQsunShN0MwUNQrnHbxX zV2z8X2Fr8MtYmjeONvPD 0sJxLgASn3D7BpDqh3FUE ymNxlGI5qwRRm AXggMv3fvAsntGoqJJ6gC LTtgxmrk362KvJlq2qyMU FfjCMoFMviHQY6B07xr5J 0TFCeQHCqSAY5 iDQ8iH0gaAvsnsllaLUuj DsgdmVydGljYWwtYWxpZ2 98ISAyqUuyVtTNZyw1D1K zXia7XTRdmEzo MB6opOUfVHelSn5jlWtcu ZadNS7yPLRclsoom002Fn Kzj3wgJLLyuFYmEWbjFQN 6D71ih8Y4XIWb OGCoRNT9sQU0eI8bgEbdp jogbGVmdDsgdmVydGljYW kiSKniW219WZTzvYwkUh1 YJag3P8NaOrc9 VAYjvAayDD8fyLQnDRjwB g1lfXuewXkyLU1sKNNikm npi104LuJpf9ucRZHvsRY kOJdjFLM1F38e q9I7QKDxSLNdRKD4vSY5n V8taQylzeqwwACuzIacge IovEqsJWibREcrJ869LUB vcDsnPlBheWVy OjwvdGQ+DQ57oe83M0PzT mkxEjt6NIPtQLS3sDV3aN 6mKGIjPHugx4V5uAJ5X6J rirFgsg6fh7em YXBzZTog (more content not included)... [facility] ED Note-Physicianon 01-14-20 ED Note-Physician [id number]#1 .00CD:127 [facility] Outside [facility] Correspo ndenceon 01-13-2023 Outside Hospital Correspondence [id number]#1 .00CD:127 Normal [facility] Alanine aminotransferase [En zymatic activity/volume] in [...] on 01-12-2023 Amphetamines Ql (U) Positive Negative [facility] Aspartate aminotransferase [ Enzymatic activity/volume] in [...] Basophils/100 WBC (Bld) 0.3 % . [facility] Benzodiazepines Screen Ql (U )Ordered By: Jose Moses on 01-12-2023 Benzodiazepines Ql (U) Negative Negative [facility] Benzoylecgonine [Presence] i n Urine by Screen methodOrdered By: Jose Moses on 01-12-2023 Benzoylecgonine Screen Ql (U) Negative Negative [facility] Bilirubin Test strip Ql (U)O rdered By: Jose Moses on 01-12-2023 Bilirubin Ql (U) Negative Negative [facility] Bilirubin.total [Mass/volume ] in Serum or PlasmaOrdered By: Jose Moses on 01-12-2023 Bilirubin [Mass/Vol] 0.6 mg/dL 0.3-1.0 [facility] CARDIAC STACI ADMITon 023 CK [Catalytic activity/Vol] 48 U/L Normal 26-192 [facility] Comment on above: Performed By: #### P REG #### [facility] [address] [address] [address] Efren Parra CK.MB [Mass/Vol] 0.83 ng/mL Normal <=3.[address] [facility] Comment on above: Performed By: #### P REG #### [facility] [address] [address] [address] Efren Parra HSTROP <4.0 Normal 4.0-51.3 [facility] Comment on above: Result Comment: CUT- OFF POINTS HAVE BEEN ESTABLISHED BASED ON THE FOURTH UNIVERSAL DEFINITIONS OF MYOCARDIAL INFARCTION. THE UPPER REFERENCE LIMIT (URL) OF TROPONIN, DEFINED THE 99TH PERCENTILE OF cTnI DISTRIBUTION IN A REFERENCE POPULATION, HAS BEEN CONFIRMED THE DECISION THRESHOLD FOR [place] DIAGNOSIS. Performed By: #### P REG #### [facility] [address] [address] [address] Efren Parra FEMI 31 ng/mL Normal 9-82 [facility] Comment on above: Performed By: #### P REG #### [facility] [address] [address] [address] Efren Parra CBC AUTO DIFFon 01-12-2023 BASO # 0.0 103/ul Normal 0.0-0.1 [facility] Comment on above: Performed By: #### C BC #### [facility] [address] [place] [address] Dr. Efren Parra Basophils/100 WBC (Bld) 0.1 % Critically low 0.2-2.0 [facility] Comment on above: Performed By: #### C BC #### [facility] [address] [place] [address] Dr. Efren Parra EO # 0.0 103/ul Normal 0.0-0.7 [facility] Comment on above: Performed By: #### C BC #### [facility] [address] [place] [address] Dr. Efren Parra Eosinophils/100 WBC (Bld) 0.1 % Critically low 0.9-7.0 [facility] Comment on above: Performed By: #### C BC #### [facility] [address] [place] [address] Dr. Efren Parra Erythrocyte distribution width (RBC) [Ratio] 13.2 % Normal 11.0-15.0 [facility] Comment on above: Performed By: #### C BC #### [facility] [address] [place] [address] Dr. Efren Parra Hematocrit (Bld) [Volume fraction] 45.3 % Normal 36.0-48.0 [facility] Comment on above: Performed By: #### C BC #### [facility] [address] [place] [address] Dr. Efren Parra Hemoglobin (Bld) [Mass/Vol] 15.4 g/dL Normal 12.0-16.0 [facility] Comment on above: Performed By: #### C BC #### [facility] [address] [place] [address] Dr. Efren Parra IG # 0.01 10e3/ul Normal 0.00-0.03 [facility] Comment on above: Performed By: #### C BC #### [facility] [address] [place] [address] Dr. Efren Parra IG % 0.1 % Normal 0.0-0.5 [facility] Comment on above: Performed By: #### C BC #### [facility] [address] [address] [address] Efren Parra LYMPH # 2.3 103/ul Normal 1.2-3.8 [facility] Comment on above: Performed By: #### C BC #### [facility] [address] [place] [address] Dr. Efren Parra Lymphocytes/100 WBC (Bld) 31.1 % Normal 20.5-60.0 [facility] Comment on above: Performed By: #### C BC #### [facility] [address] [place] [address] Dr. Efren Parra MANUAL DIFF REQ NO Normal [facility] Comment on above: Performed By: #### C BC #### [facility] [address] [place] [address] Dr. Efren Parra MCH (RBC) [Entitic mass] 30.4 pg Normal 26.7-34.0 [facility] Comment on above: Performed By: #### C BC #### [facility] [address] [place] [address] Dr. Efren Parra MCHC (RBC) [Mass/Vol] 34.0 g/dL Normal 29.9-35.2 [facility] Comment on above: Performed By: #### C BC #### [facility] [address] [place] [address] Dr. Efren Parra MCV (RBC) [Entitic vol] 89.5 fL Normal 81.0-99.0 [facility] [facility] Comment on above: Performed By: #### C BC #### [facility] [address] [place] [address] Dr. Efren Parra MONO # 0.4 103/ul Normal 0.3-0.8 [facility] Comment on above: Performed By: #### C BC #### [facility] [address] [place] [address] Dr. Efren Parra Monocytes/100 WBC (Bld) 5.6 % Normal 1.7-12.0 [facility] Comment on above: Performed By: #### C BC #### [facility] [address] [address] [address] Efren Parra NEUT # 4.6 103/ul Normal 1.4-6.5 [facility] Comment on above: Performed By: #### C BC #### [facility] [address] [place] [address] Dr. Efren Parra Neutrophils/100 WBC (Bld) 63.0 % Normal 43.0-75.0 [facility] Comment on above: Performed By: #### C BC #### [facility] [address] [address] [address] Efren Parra Platelet mean volume (Bld) [Entitic vol] 10.5 fL Normal 9.5-13.5 [facility] Comment on above: Performed By: #### C BC #### [facility] [address] [place] [address] Dr. Efren Parra PLT 262 103/ul Normal 150-450 [facility] Comment on above: Performed By: #### C BC #### [facility] [address] [place] [address] Dr. Efren Parra RBC 5.06 106/ul Normal 4.20-5.40 [facility] Comment on above: Performed By: #### C BC #### [facility] [address] [address] [address] Efren Parra WBC 7.3 103/ul Normal 4.0-11.0 [facility] Comment on above: Performed By: #### C BC #### [facility] [address] [place] [address] Dr. Efren Parra Calcium [Mass/volume] in Ser um or PlasmaOrdered By: Jsoe Moses on 01-12-2023 Calcium [Mass/Vol] 10.7 mg/dL 8.6-10.3 [facility] Cannabinoids [Presence] in U rine by [...] CO2 [Moles/Vol] 25.9 mmol/L 21.0-31.[address] [facility] Chloride [Moles/volume] in S maris or PlasmaOrdered By: Jose Moses on 01-12-2023 Chloride [Moles/Vol] 103 mmol/L 98-107 [facility] Color Auto (U)Ordered By: Shaka Moses on 01-12-2023 Color (U) Yellow Yellow [facility] Consent for Treatmenton 040 Consent for Treatment [id number] .[id number]:127 Normal [facility] Creatinine [Mass/volume] in Serum or PlasmaOrdered By: Jose Moses on 01-12-2023 Creatinine [Mass/Vol] 0.65 mg/dL 0.60-1.20 [facility] DRUG SCREEN RAPID (URINE)on 01-12-2023 AMP Positive Abnormal NEGATIVE [facility] Comment on above: Performed By: #### C BC #### [facility] [address] [place] [address] Dr. Efren Parra BAR Negative Normal NEGATIVE [facility] Comment on above: Performed By: #### C BC #### [facility] [address] [place] [address] Dr. Efren Parra BUP Negative Normal NEGATIVE [facility] Comment on above: Performed By: #### C BC #### [facility] [address] [place] [address] Dr. Efren Parra BZO Negative Normal NEGATIVE [facility] Comment on above: Performed By: #### C BC #### [facility] [address] [place] [address] Dr. Efren Parra RENEA Negative Normal NEGATIVE [facility] Comment on above: Performed By: #### C BC #### [facility] [address] [place] [address] Dr. Efren Parra CUT-OFFS SEE BELOW Normal [facility] Comment on above: Result Comment: AMP [...] ng/mL Performed By: #### C BC #### [facility] [address] [place] [address] Dr. Efren Parra DRUG CUT HEADER DRUG CLASS TEST SYSTEM CUT-OFF CONCENTRATIONS ARE FOLLOWS: Normal [facility] Comment on above: Performed By: #### C BC #### [facility] [address] [place] [address] Dr. Efren Parra mAMP Positive Abnormal NEGATIVE [facility] Comment on above: Performed By: #### C BC #### [facility] [address] [place] [address] Dr. Efren Parra MTD Positive Abnormal NEGATIVE [facility] Comment on above: Performed By: #### C BC #### [facility] [address] [place] [address] Dr. Efren Parra OPI Negative Normal NEGATIVE [facility] Comment on above: Performed By: #### C BC #### [facility] [address] [place] [address] Dr. Efren Parra OXY Negative Normal NEGATIVE [facility] Comment on above: Performed By: #### C BC #### [facility] [address] [place] [address] Dr. Efren Parra PCP Negative Normal NEGATIVE [facility] Comment on above: Performed By: #### C BC #### [facility] [address] [place] [address] Dr. Efren Parra PPX Negative Normal NEGATIVE [facility] Comment on above: Performed By: #### C BC #### [facility] [address] [address] [address] Efren Parra TCA Positive Abnormal NEGATIVE [facility] Comment on above: Performed By: #### C BC #### [facility] [address] [address] [address] Efren Parra THC Negative Normal NEGATIVE [facility] Comment on above: Performed By: #### C BC #### [facility] [address] [address] [address] Efren Parra Discharge Instructionson Discharge Instructions [id number] 1.00CD:127 Normal [facility] ED Clinical Summaryon 2022 ED Clinical Summary [address] [address] ED Clinical Summary Person Information Name: LORNA DEUTSCH/[facility] Age: 38 Years : 1985 Sex: Female Language: Marshallese PCP: Cris PENA CNP Marital Status: Phone: [phone] Visit Id: Visit Reason: Anxiety; Medical problem [...] 01/12/2023 02:02:29 01/12/2023 02:02:29 01/12/2023 02:02:29 ADDRESS: [id number] [id number] [facility] DOC NOTES: MEDICAL INFORMATION: Prescriptions Given: [...] With: Address: When: Cris PENA [address] [phone] Business (1) In 3 days 01/15/2023 Comments: You can use the hydroxyzine every 8 hours as needed. Please follow-up with your primary care doctor next 2 to 3 days. Please return to the ED for any new or worsening symptoms DIAGNOSIS: Anxiety; Drug-seeking behavior Normal [facility] ED Note-Nursingon 01-12-2023 ED Note-Nursing pt [...] her boyfriend to drive her home Normal [facility] ED Note-Nursing pt arrived to ed fro m home via private car with her boyfriend c/o anxiety. pt states she missed her methadone appointment 4 days ago and has an appointment this morning. pt asking for ativan. pt denies any other compaints at this time. pt is very restless on assessment. Normal [facility] ED Note-Physicianon 01-13-20 ED Note-Physician Basic [...] and Complexity of Problems Differential Diagnosis: [] [facility] Data External documents reviewed: [] My EKG [...] In 3 days 01/15/2023 EDT [address] [place] [address] Business (1) Additional Instructions: You can use [...] methadone, 180 (more content not included)... Normal [facility] Comment on above: Result Comment: Elec [...] Follow these instructions at home: ? Take jyun-tih-ayolhqr and prescription medicines only as told by [...] A persistent (more content not included)... Normal [facility] ED Patient Summaryon 023 ED Patient Summary [address] [id number] Patient Discharge Instructions Person Information Name: LORNA DEUTSCH Age: 38 Years Arrival Date: 01/12/2023 01:30:57 Discharge Diagnosis: Anxiety; Drug-seeking behavior Primary Care Physician: Cris PENA CNP Provider Information Primary Provider: Norma Dietz DO [employer]:None The exam and treatment you received in the Emergency Department were for an urgent problem and are not intended as complete care. It is important that you follow up with a doctor, nurse practitioner, or physician?s nurseryman assistant for ongoing care. If your symptoms [...] With: Address: When: Cris PENA [address] [id number] Business (1) In 3 days 01/15/2023 Comments: [...] opioids can be used to help relieve suqjzxgk-ah-ivowut pain and are often prescribed following a [...] and overdose. (more content not included)... Normal [facility] ER URINE PROFILEon 3 Bilirubin Ql (U) Negative Normal NEGATIVE [facility] Comment on above: Performed By: #### C BC #### [facility] [address] [place] [address] Dr. Efren Parra Clarity (U) CLEAR Normal CLEAR [facility] Comment on above: Performed By: #### C BC #### [facility] [address] [address] [address] Efren Parra Color (U) YELLOW Normal YELLOW [facility] Comment on above: Performed By: #### C BC #### [facility] [address] [address] [address] Efren SETH A micrscopic examination will be performed if indicated. Normal [facility] Comment on above: Performed By: #### C BC #### [facility] [address] [address] [address] Efren Parra Glucose Ql (U) Negative Normal NEGATIVE [facility] Comment on above: Performed By: #### C BC #### [facility] [address] [place] [address] Dr. Efren Parra Hemoglobin Ql (U) SMALL Abnormal NEGATIVE [facility] Comment on above: Performed By: #### C BC #### [facility] [address] [place] [address] Dr. Efren Parra Ketones Ql (U) 15 mg/dl Abnormal NEGATIVE [facility] Comment on above: Performed By: #### C BC #### [facility] [address] [place] [address] Dr. Efren Parra LEUKOCYTES Negative Normal NEGATIVE [facility] Comment on above: Performed By: #### C BC #### [facility] [address] [place] [address] Dr. Efren Parra Nitrite Ql (U) Negative Normal NEGATIVE [facility] Comment on above: Performed By: #### C BC #### [facility] [address] [place] [address] Dr. Efren Parra pH (U) 7.0 [pH] Normal 5-9 [facility] Comment on above: Performed By: #### C BC #### [facility] [address] [place] [address] Dr. Efren Parra SPEC GRAVITY 1.020 Normal 1.005-<=1.025 [facility] Comment on above: Performed By: #### C BC #### [facility] [address] [place] [address] Dr. Efren Parra UA PROTEIN Negative Normal NEGATIVE/ TRACE [facility] Comment on above: Performed By: #### C BC #### [facility] [address] [place] [address] Dr. Efren Parra UR MICRO IND INDICATED Normal [facility] Comment on above: Performed By: #### C BC #### [facility] [address] [place] [address] Dr. Efren Parra Urobilinogen Qn (U) 1.0 {Adria'U}/dL Normal 0.2 - 1. 0 [facility] Comment on above: Performed By: #### C BC #### [facility] [address] [address] [address] Efren Parra ETHANOL (BLD ALC)on 01-13-20 ALC NOTE NOTE: 80 mg/dl is th e legal limit for a blood alcohol level Normal [facility] Comment on above: Performed By: #### P REG #### [facility] [address] [address] [address] Efren Parra Ethanol [Mass/Vol] mg/dL Normal [facility] Comment on above: Performed By: #### P REG #### [facility] [address] [address] [address] Efren Parra Eosinophils Auto (Bld) [#/Vo [...] Jose Moses on 01-12-2023 Ethanol [Mass/Vol] mg/dL [facility] Ethanol [Mass/Vol] TNP [facility] Comment on above: Test not performed Globulin Calc (S) [Mass/Vol] Ordered By: Jose Moses on 01-12-2023 Globulin (S) [Mass/Vol] 3.9 g/dL [facility] Glucose [Mass/volume] in Ser um or PlasmaOrdered By: Jose Moses on 01-12-2023 Glucose [Mass/Vol] 107 mg/dL 70-100 [facility] Comment on above: ADA recommended refe rence rangeRandom Glucose Reference Range is dependent on time and content of last meal. Glucose of more than 200 mg/dL in a nonstressed, ambulatory subject supports the diagnosis of Diabetes Mellitus. HCG ( test) IA.rapi d Ql (U)Ordered By: Jose Moses on 01-12-2023 HCG ( test) Ql (U) Negative [facility] Hematocrit Auto (Bld) [Volum e fraction]Ordered By: Jose Moses on 01-12-2023 Hematocrit (Bld) [Volume fraction] 47.7 % 34.0-46.4 [facility] Hemoglobin [Mass/volume] in BloodOrdered By: Jsoe Moses on 01-12-2023 Hemoglobin (Bld) [Mass/Vol] 16.1 g/dL 11.8-15.4 [facility] Ketones Auto test strip (U) [Mass/Vol]Ordered By: Jose Moses on 01-12-2023 Ketones (U) [Mass/Vol] Trace Negative [facility] - UrinalysisOrder ed By: Jose [...] 01-12-2023 MCHC (RBC) [Mass/Vol] 33.7 g/dL 32.0-35.0 [facility] MCV Auto (RBC) [Entitic vol] Ordered By: Jose Moses on 01-12-2023 MCV (RBC) [Entitic vol] 91.9 fL 80-100 [facility] Monocyte distribution width [Entitic volume] in [...] Monocytes/100 WBC (Bld) 5.2 % . [facility] Neutrophils Auto (Bld) [#/Vo l]Ordered By: Jose Moses on 01-12-2023 Neutrophils (Bld) [#/Vol] 4.5 10*3/uL 1.8-7.7 [facility] Neutrophils/100 WBC Auto (Bl d)Ordered By: Jose Moses on 01-12-2023 Neutrophils/100 WBC (Bld) 68.9 % . [facility] Nitrite Test strip Ql (U)Ord ered By: Jose Moses on 01-12-2023 Nitrite Ql (U) Positive Negative [facility] No Panel InformationOrdered By: Jose Moses [...] Opiates Screen Ql (U) Negative Negative Fir [facility] URon 01-12-2023 , QUAL Negative Normal NEGATIVE [facility] Comment on above: Performed By: #### C BC #### [facility] [address] [address] [address] Efren Parra PROF 14(COMP METB)on 023 Albumin [Mass/Vol] 4.3 g/dL Normal 3.4-5.0 [facility] Comment on above: Performed By: #### P REG #### [facility] [address] [place] [address] Dr. Efren Parra Albumin/Globulin [Mass ratio] 1.0 {ratio} Normal [facility] Comment on above: Performed By: #### P REG #### [facility] [address] [place] [address] Dr. Efren Parra ALP [Catalytic activity/Vol] 58 U/L Normal 46-116 [facility] Comment on above: Performed By: #### P REG #### [facility] [address] [place] [address] Dr. Efren Parra ALT [Catalytic activity/Vol] 17 U/L Normal 14-59 [facility] Comment on above: Performed By: #### P REG #### [facility] [address] [place] [address] Dr. Efren Parra Anion gap [Moles/Vol] 17.6 mmol/L Normal [facility] Comment on above: Performed By: #### P REG #### [facility] [address] [place] [address] Dr. Efren Parra AST [Catalytic activity/Vol] 11 U/L Critically low 15-37 [facility] Comment on above: Performed By: #### P REG #### [facility] [address] [place] [address] Dr. Efren Parra Bilirubin [Mass/Vol] 0.4 mg/dL Normal 0.2-1.0 [facility] Comment on above: Performed By: #### P REG #### [facility] [address] [place] [address] Dr. Efren Parra Calcium [Mass/Vol] 9.8 mg/dL Normal 8.5-10.1 [facility] Comment on above: Performed By: #### P REG #### [facility] [address] [address] [address] Efren Parra Chloride [Moles/Vol] 102 mmol/L Normal 98-107 [facility] Comment on above: Performed By: #### P REG #### [facility] [address] [place] [address] Dr. Efren Parar CO2 [Moles/Vol] 25.1 mmol/L Normal 21.0-32.0 [facility] Comment on above: Performed By: #### P REG #### [facility] [address] [place] [address] Dr. Efren Parra Creatinine [Mass/Vol] 0.75 mg/dL Normal 0.55-1.02 [facility] Comment on above: Performed By: #### P REG #### [facility] [address] [place] [address] Dr. Efren Parra EGFR-AF AZERBAIJANI >60 Normal >=60 [facility] Comment on above: Performed By: #### P REG #### [facility] [address] [address] [address] Efren Parra EGFR-NON AF AZERBAIJANI >60 Normal >=60 [facility] Comment on above: Performed By: #### P REG #### [facility] [address] [address] [address] Efren Parra Globulin (S) [Mass/Vol] 4.2 g/dL Normal [facility] Comment on above: Performed By: #### P REG #### [facility] [address] [address] [address] Efren Parra Glucose [Mass/Vol] 105 mg/dL Normal 74-106 [facility] Comment on above: Performed By: #### P REG #### [facility] [address] [address] [address] Efren Parra Potassium [Moles/Vol] 3.7 mmol/L Normal 3.5-5.1 [facility] Comment on above: Performed By: #### P REG #### [facility] [address] [place] [address] Dr. Efren Parra Protein [Mass/Vol] 8.5 g/dL Critically high 6.4-8.2 [facility] Comment on above: Performed By: #### P REG #### [facility] [address] [address] [address] Efren Parra Sodium [Moles/Vol] 141 mmol/L Normal 136-145 [facility] Comment on above: Performed By: #### P REG #### [facility] [address] [address] [address] Efren Parra Urea nitrogen [Mass/Vol] 17.0 mg/dL Normal 7.0-18.0 [facility] Comment on above: Performed By: #### P REG #### [facility] [address] [address] [address] Efren Parra Urea nitrogen/Creatinine [Mass ratio] 22.7 mg/mg Normal [facility] Comment on above: Performed By: #### P REG #### [facility] [address] [address] [address] Efren Parra Phencyclidine Screen Ql (U)O rdered By: Jose Moses on 01-12-2023 Phencyclidine Ql (U) Negative Negative [facility] Platelet mean volume Auto (B ld) [Entitic vol]Ordered By: Jose Moses on 01-12-2023 Platelet mean volume (Bld) [Entitic vol] 8.7 fL 6.3-10.7 [facility] Platelets Auto (Bld) [#/Vol] Ordered By: Jose Moses on 01-12-2023 Platelets (Bld) [#/Vol] 275 10*3/uL 150-450 [facility] Potassium [Moles/volume] in Serum or PlasmaOrdered By: Jose Moses on 01-12-2023 Potassium [Moles/Vol] 3.0 mmol/L 3.5-5.1 [facility] Protein Auto test strip (U) [Mass/Vol]Ordered By: Jose Moses on 01-12-2023 Protein (U) [Mass/Vol] Negative Negative [facility] Protein [Mass/volume] in Ser um or PlasmaOrdered By: Jose Moses on 01-12-2023 Protein [Mass/Vol] 9.2 g/dL 6.4-8.9 [facility] RBC Auto (Bld) [#/Vol]Ordere d By: Jose Moses on 01-12-2023 RBC (Bld) [#/Vol] 5.19 10*6/uL 3.60-5.[address] [facility] Serum or plasma albumin/glob ulin mass ratioOrdered By: Jose Moses on 01-12-2023 Albumin/Globulin [Mass ratio] 1.4 {ratio} [facility] Serum or plasma anion gap de terminationOrdered By: Jose Moses on 01-12-2023 Anion gap [Moles/Vol] 13.1 mmol/L 6.0-15.0 [facility] Sodium [Moles/volume] in Ser um or PlasmaOrdered By: Jose Moses on 01-12-2023 Sodium [Moles/Vol] 139 mmol/L 136-145 [facility] Specific gravity Auto test s trip (U) [Rel density]Ordered By: Jose Moses on 01-12-2023 Specific gravity (U) [Rel density] 1.020 1.001-1.030 [facility] Squamous epithelial cells de tection in urine sediment by light microscopyOrdered By: Jose Moses on 01-12-2023 Epithelial cells.squamous LM Ql (Urine sed) 5-9 [HPF] 0-2 [facility] URINE MICROSCOPIC ONLYon BACTERIA LARGE Abnormal NONE SEEN [facility] Comment on above: Performed By: #### C BC #### [facility] [address] [place] [address] Dr. Efren Parra Bacteria identified Cx Nom (U) INDICATED Normal [facility] Comment on above: Performed By: #### C BC #### [facility] [address] [address] [address] Efren Parra CAST NONE SEEN Normal NONE SEEN [facility] Comment on above: Performed By: #### C BC #### [facility] [address] [place] [address] Dr. Efren Parra Crystals LM Nom (Urine sed) NONE SEEN Normal NONE SEEN [facility] Comment on above: Performed By: #### C BC #### [facility] [address] [address] [address] Efren Parra Epithelial cells LM Ql (Urine sed) FEW Abnormal NONE SEEN /RARE [facility] Comment on above: Performed By: #### C BC #### [facility] [address] [address] [address] Efren Parra MUCOUS NONE SEEN Normal NONE SEEN [facility] Comment on above: Performed By: #### C BC #### [facility] [address] [place] [address] Dr. Efren Parra RBC 2-5 Abnormal 0-2 [facility] Comment on above: Performed By: #### C BC #### [facility] [address] [place] [address] Dr. Efren Parra WBC 0-2 Abnormal NONE SEEN [facility] Comment on above: Performed By: #### C BC #### [facility] [address] [place] [address] Dr. Efren Parra Urea nitrogen [Mass/volume] in Serum or PlasmaOrdered By: Jose Moses on 01-12-2023 Urea nitrogen [Mass/Vol] 14 mg/dL 7-25 [facility] Urine bacteria detection by automated methodOrdered By: Jose Moses on 01-12-2023 Bacteria Auto Ql (U) 4+ None Seen [facility] Urine clarity by refractomet ry automatedOrdered By: Jose Moses on 01-12-2023 Clarity Refractometry automated (U) Cloudy [facility] Urine culture routineOrdered By: Jose Moses [...] 01-12-2023 WBC (Bld) [#/Vol] 6.5 10*3/uL 3.8-11.6 [facility] XR CHEST 1 Von 01-12-2023 XR [...] AMAYA BRANCH Date: 2023-01-12 00:46 Normal [facility] pH Auto test strip (U)Ordere d By: Jose Moses on 01-12-2023 pH (U) 6.0 [pH] 5.0-9.0 [facility] Coding Summary.on 2023 Coding Summary. CD:[id number] W w+PGhlYWQ+PJ3DHVRoY72 teNKsiT2qT5UOAXhAYork LAJODKeQGlKsuoYwSU4ap XNjZXJu IC8+EI9mENNvVhdhdKHlx 2M7tIP8X92isw7nGAgzeP C6YSNdJfMvaoguq6yddDw 6IDcuNmluOyBt ODHnnP36LKF1lQ55Lh82u EScrZJbs9akwOo8NxJdRZ QhULR3fKmyKGiup4FvHCL kI36ukMNon4T3 LUYjhYhxlUTwOuSnaUZ2y R1oPHtsabnca2amznxpIy h8ji85iEZzy9T0wUF6D4S gvrR4IYWpjEIh MgbtvUVGwH1ouondd5dhg glqKaLiJEQqZXb3TYt3BV JahWrqCfXmEC12NTM1CHI vicVeQ0UhNOMr kHexZvD4s6B7Wf2SN1JCO pjgK7PLNBZLUAnzcFA+PC 94tw37Y2YxMueiEme0HOW wIPP5iUF7rZ6h LNKcIQhce6T9mPF3Q7Cyv cTyur4db3nrSDGzVHavB3 5iwEEha0P6QXPwgGK4SYP xnCelIqYebI95 Oyc+EURdsSuby8TiEtler 2ota0iryIi9EfmcXHSith DueMipQTM3y4EvEf4pCWK oyUK0zAP1fX9x XuVoGxB0LDzrN592ZzTzv WHgIstfB93oM4XchHJ+PH IpAfn6CYPysEnbMS2rB0H hZGRpbmctbGVm gPnrYX3fEQAckiyrESLff Z3iEOPsP2j0CbJjWvQ6CU naP7CiURDweobzOw34uE5 iJnYsAhA0MDae P4HeblG4VPAniTPsCTnpH KK6I66xl3E3QUZbMQUxPD Z4hIQ7qK1jiJuewgfsmDJ mdDsgdmVydGlj IDvfOLpmG356DUKjwJnoY kNvZGluZyBEYXRlOiAgMD MvMzEvMjAyMzwvdGQ+PHR pTOK1oFzqFKAy fXBfDAuqXc1enEmpbZfeU B5gSPSnizalUVNxoW1iZU XslWVypQfaKR1gBXCljwp lu653OhGfPSU5 ACPrjYFtP3UytW0ySaNlC AElBLUwT5JciLOpCLeeM3 43VJstQwV5GDMtfuWyB9C sLWFsaWduOiB0 j3P2Lj4Ql7PwmyrlP9Dzg XPdNgOxDodgNXe7O5UiSy wvdHI+XM75YKCmQF72SYt 8ZIU7tQzsQRxh SKJtL6PwvE2cSdTrTAXyA GRkOyc+PHRhYmxlIHdpZH RoPScxMDAlJyBzdHlsZT0 bZl8dGUKiYYUu eRpuoTOuZsTmg7jbRIXxL TouVR9rnUsdR6QxvWR2TT Mlq2w2De02K98hL4HraIA +VYUgnLR9eCR9 wT7sFzCjXaI9ECysC051D gDysMMkJiofg9hlv9rroA s1ObF3PFKoetDmfRoqTCW 0l8GjVn83D14y IHdpZHRoPSIxNSUiIHZhb Sclgz1bbG5vXx4+PGNvbC D7mCU3dJ9fIaOrKxG3PIm hX876FcDuyDGd Yform0qxa8sahFw0CrLeL NLcpiSvcQbqGFR0h5RuUy 62S0HnvXvtm4QeXli7rn5 7tAMwa4K2jMV8 X3QtSNNcrkoopPJnkLfcV T7nOYNfoyfhLYQaoH2aIJ WyC7i6DcPtImS4PGfhJ0L mhcR3XQSkrSZv OOWkvTOYhJ9ygkkyj7rmz hifYaBwLGSxCLn9NOh4JU GfbHawOoBzKKN7LsI1HSV 2pUOenJ4vfTar dsllqD7hQtg+IJY5rZBxv UAWRW3pMevciJW+PHRkIH O7cEiwYOlmOJWsbK8tMCD nR7c1ArXoXgJ4 CEnaO1ZuwvP3MIInxLBvO YKdzQANhO5xpkghc3jose rvMmVmTKIzAWw7SJj7QQV saWduOiBsZWZ0 CzL0FPH2hFOmmL1mvBegd btyeD3gMlr+QmlydGggRG S9SUw4U4RrVti5GDBvjZv bOO1uxSYeIIgx Oz5fgElkrNxlXN1xFDWla scpl692FcXmt2zxEIMqcP DfNZesZWE8R45nq6P0USH oXARhUXW0rRO5 uF5psOtedgsdkBLbrPmyh hTiaOmmMUvtQCpeT543IM JfdHpaFqNsQZr4R7PuGcy 5NGRfdKndFV8p qZEcXZkrSd1bjSzoyGjtN V5iDQFigmucu312YuVuf7 llKBZspIEaECtxURW7C72 fs6J9KXHtXKKk SJA2hXJ7nD4rmVkuyxdwd GVmdDsgdmVydGljYWwtYW enF829DQQheSysHtXxxJk 2O2NbYlw8SZKr jLfkFT9hsEPkDTdtTr5ty SruwIzgSV9mFCLgzsxis0 61IwFxd5dcWHGwyGVzFUd tOGH1T06yc0H4 WAPpDUCdVGK9mJV8tB2dn GlnbjogbGVmdDsgdmVydG ipRUdnUQbbX149LVScsZd nPlBhdGllbnQg FUjnSRw1Z0EkXtdhmQM+P I67OFLuDM74lXQlxNOwp1 cpdNb9ShEhLILpCOC5oZk pZWzrh4DfBATj T61jvCBrv8C4PXXuxMqdn HLfZxDriYC3lC2sDBmqmt ofb5axhzxqOwtod3yett1 2cB04U80hVWja ZHRoPSIzMCUiIHZhbGlnb h5jiT7fIc5+YCTmiWR9gO H1dV2pORKzXxY9NYjvT54 9InRvcCIvPjxj y9hox3vcdGm8YkI2IHZsc dOxsPjxELH0d4WkKg67G6 9sIHdpZHRoPSIyMCUiIHZ urVunhk4whW4v Ii8+YRQknKK9zWV5lY3kH vVyVpP0TVjtO774JbYefV XjXyeeM68gI7DcxLO+PHR jKne3GSKkmOyj KO0kiSUvRXrrSg3zTOB7X fUbOfQzNEdeQ1ZiZJVfhz mwpdjwrES1TFHiKEIkaR2 9Ij5jgSdbQDZh bJIBtW4srpcqn9ddftgsW jVsNBLdDEq1LIi9LNKxdT reQmJaJTX2AtW7TSE7yPD ydK0bpXzvewsy aT5aQ6KaXDZtjczhTh26f T6aWjVjCcE8JVskWti+Rk 9XUTMGTZRSJYVRSEDIYR1 0QA19nNMbr6K3 uGR4E1QuMBSmmygvzjtwr QK7KFYhKIQjaX28tIJjIP awBx2zu7Z4g700WDOjVEO wbN53Eg8caPno KRFtkTQVtM2qdbbcu8zsi rrfTiXsZIXwUKa4XIo6JC OltCqyHlPyCND1QqD1OUW 2oAYauQ7qrYxj ttclbA5cJcp+MDMvMzEvM Xk6LWtdgNT+HVHtMCO0dE yqFYolQKLraV3xQSZeP4r 0GzIaAnZ4HDoh I4FeOMCkcgkoYz19bL6bG hQhKtG6APbkR6BecpW1TU KbtPFaQQboOAE8X55at2Y 9SEQrLPEzQTG5 jOU3gB6asNowuhyhnOGhf DsgdmVydGljYWwtYWxpZ2 65HVVnfJzzXuK1CRfzTQF sPR86NL85bDXx z3M8xHN3Y6RnQBPbspcky smgzIH3ODJmRJNtmJ22iQ LbKWhjYu5fj7K8c426BDK xNEHixS85Ue3g oRzqLBLvwOQOyK8smrnxy 8quhxaiSxCbFKHoPBv4ZL g2VSLctJlsDkUnEZU0JlZ 4CYM7xXAknZ3c sCfoafpwqJ5rMhl+RmVtY EtcGC31AN02pYZnv5A9mJ J9Q8AbPIIhgxcqhcbheFL 5UKTyLGLopR13 jBHoLTcqCo1vt3J2h216T JOtKPBcdN72Ve2klLzuCQ SohFJTmR9bhxeec6oeose gIzAwMDAwMDt0 REz5BYYwuEpaQjGvBJR5I jH8MYY9wEVgjQ5taDyahh ksgA9kOod+JZ3yeyohtqH 1XE99KF23A1Lw PjwvdGFibGU+PHRhYmxlI HdpZHRoPScxMDAlJyBzdH zcCO6wZq1ePTKwSZHrfWc nlQNnGhUek4bs LFXjWGqgIV6seKsqG8Rao IT9OHFwk5j8Wa70P52wF1 JvdXA+JJRhiCZ4rKI3bT5 iTrUlRnM4CEom V672PnZrcFEqZmavr2wft 4odkGy0WiXfGMOlfiDzjS hdVFE9q2SdRw62X59oVBq pZHRoPSIyMCUi AHUneRrflf5xzM8iDf0+P SGfdGJ4fGL8qT5xFiRtId W6ZHuvB211XmVfaQGpQkt hN41zO3RllRC+ GFIhMao2FVEyrNluFP9ho UCyZKkcXi5sSBB0JbQoUp FwJWkrB3NmOWRzjuaulwr nqXN3STYeNNQz oN67Ml8pdHhkJn8wCDTvS NV1BYUyeBRfU1YfkC7gGc KeQYVhZKAlC7CfiQXkERx bL451OSydQcP0 PPTzwtYmQ7EvEWRbxAcwJ tU9u6R5Vv2WyGxknKZaZH 3fJpZwCBx6U8RaMpq8XTJ rrJpeAN2nqQKx ZAcqIu5oiGffqBrvBV1bP ZGwcntnd521WnBih9axLK QxcQFgPCitLFN1S66sn8H 0BKKfBJIgZQA6 rWD1kD0cxYghouvadZAdc DsgdmVydGljYWwtYWxpZ2 35GSLwnWstJzEYUjp8N4T gOae3SCBroFwq GQ3hoEFmSRgmKk0okTtzt JczZW3gJORpiumsz104Wo Reh2auYSRbmTIbJYkcKWL 8B22rp4O2GKPb HCTiPER7yTJ7aO9poSpas jogbGVmdDsgdmVydGljYW ryTIuuU476BJQifXatPw6 KBps5F2LzPfe9 QKGfjLcvHZ3ynMAkACmpW a7kbYusyBtwJJ4uYKXvdn our184UmBdg1vlITHfyIB kUDxbEMR5I09k s4G7LGBoQSKiPUE4aIU3l U6kwQxqzvvgeTGoqByfiu MtxFtfXVgmQUctJ681LWZ vcDsnPlBheWVy OjwvdGQ+SU27rw83D0TxY yecMvc8TAMgBXV6uLI7sK 0qAIInMOvnt0X4eYE3U5G fgpPiou7kd7ag YXBzZTog (more content not included)... [facility] Consent for Treatmenton 12-12 Consent for Treatment [id number]:127 [facility] Discharge Instructionson Discharge Instructions [id number]:127 [facility] ED Clinical Summaryon 2022 ED Clinical Summary [address] [address] ED Clinical Summary Person Information Name: LORNA DEUTSCH/New_[place] Age: 37 Years : 1985 Sex: Female Language: Marshallese PCP: Cris PENA CNP Marital Status: Phone: [phone] MRN: [id number] Visit Id: Visit Reason: Medication refill; MED [...] 01/08/2023 17:58:58 01/08/2023 17:58:58 01/08/2023 17:58:58 ADDRESS: [address] [place] [id number] PHYS DOC NOTES: MEDICAL INFORMATION: Prescriptions Given: [...] With: Address: When: Cris PENA [address] [place] [address] [employer] (1) In 3 days 01/11/2023 DIAGNOSIS: Medicine refill Normal [facility] ED Note-Physicianon 01-09-20 ED Note-Physician Basic [...] In 3 days 01/11/2023 EDT [address] [phone] Business (1) Additional Instructions: Patient Education Medicine Refill at the Emergency Department Attestation Patient seen and evaluated by the physician nurseryman assistant. Attending physician was present in the emergency department and supervised care. This visit was performed by both the physician and an APC. I performed all aspects of the MDM as documented. This report was transcribed using voice recognition software. Every effort was made to ensure accuracy, however, inadvertently computerized clamp truck driver mistakes may be present. Appropriate healthcare PPE [...] 400 mg (more content not included)... Normal [facility] Comment on above: Result Comment: Elec [...] Reviewed: 10/11/2018 Elsevier Patient Education ? 2020 [employer] Normal [facility] ED Patient Summaryon 023 ED Patient Summary [address] [address] Patient Discharge Instructions Person Information Name: LORNA DEUTCSH Age: 37 Years Arrival Date: 01/08/2023 16:38:03 Discharge Diagnosis: Medicine refill Primary Care Physician: Cris PENA CNP Provider Information Primary Provider: Derrell Orantes DO Advanced Wooden Boat Builder:Ricco Hoang PA-C The exam and treatment you received in the Emergency Department were for an urgent problem and are not intended as complete care. It is important that you follow up with a doctor, nurse practitioner, or physician?s nurseryman assistant for ongoing care. If your symptoms [...] Follow-up Instructions: With: Address: When: Cris MAGALIE [address] [place] [address] [facility] () In 3 days 01/11/2023 In the event that this physician does not participate in your insurance network, please consult with your insurance company to find a nearby participating provider. Patient Education Materials: Medicine Refill at the Emergency Department A MESSAGE TO ALL PATIENTS REGARDING OPIOIDS PRESCRIPTION OPIOIDS: WHAT YOU NEED TO KNOW Prescription opioids can be used to help relieve zwcziuig-if-lqmnfv pain and are often prescribed following a [...] be struggling with addiction, tell your health foster care therapist and ask for guidance or call [facility]?S National Helpline at 7-742-195-HELP. v [facility] (more content not included)... Normal [facility] CARDIAC STACI ADMITon 023 CK [Catalytic activity/Vol] 77 U/L Normal 26-192 [facility] Comment on above: Performed By: #### P REG #### [facility] [address] [place] [address] Dr. Efren Parra CK.MB [Mass/Vol] 1.65 ng/mL Normal <=3.60 [facility] Comment on above: Performed By: #### P REG #### [facility] [address] [place] [address] Dr. Efren Parra HSTROP <4.0 Normal 4.0-51.3 [facility] Comment on above: Result Comment: CUT- OFF POINTS HAVE BEEN ESTABLISHED BASED ON THE FOURTH UNIVERSAL DEFINITIONS OF MYOCARDIAL INFARCTION. THE UPPER REFERENCE LIMIT (URL) OF TROPONIN, DEFINED THE 99TH PERCENTILE OF cTnI DISTRIBUTION IN A REFERENCE POPULATION, HAS BEEN CONFIRMED THE DECISION THRESHOLD FOR [place] DIAGNOSIS. Performed By: #### P REG #### [facility] [address] [place] [address] Dr. Efren Parra FEMI 50 ng/mL Normal 9-82 [facility] Comment on above: Performed By: #### P REG #### [facility] [address] [place] [address] Dr. Efren Parra CBC AUTO DIFFon 12-15-2022 BASO # 0.0 103/ul Normal 0.0-0.1 [facility] Comment on above: Performed By: #### C BC #### [facility] [address] [place] [address] Dr. Efren Parra Basophils/100 WBC (Bld) 0.3 % Normal 0.2-2.0 [facility] Comment on above: Performed By: #### C BC #### [facility] [address] [place] [address] Dr. Efren Parra EO # 0.0 103/ul Normal 0.0-0.7 [facility] Comment on above: Performed By: #### C BC #### [facility] [address] [place] [address] Dr. Efren Parra Eosinophils/100 WBC (Bld) 0.3 % Critically low 0.9-7.0 [facility] Comment on above: Performed By: #### C BC #### [facility] [address] [place] [address] Dr. Efren Parra Erythrocyte distribution width (RBC) [Ratio] 12.4 % Normal 11.0-15.0 [facility] Comment on above: Performed By: #### C BC #### [facility] [address] [place] [address] Dr. Efren Parra Hematocrit (Bld) [Volume fraction] 42.4 % Normal 36.0-48.0 [facility] Comment on above: Performed By: #### C BC #### [facility] [address] [place] [address] Dr. Efren Parra Hemoglobin (Bld) [Mass/Vol] 15.4 g/dL Normal 12.0-16.0 [facility] Comment on above: Performed By: #### C BC #### [facility] [address] [place] [address] Dr. Efren Parra IG # 0.01 10e3/ul Normal 0.00-0.03 [facility] Comment on above: Performed By: #### C BC #### [facility] [address] [place] [address] Dr. Efren Parra IG % 0.2 % Normal 0.0-0.5 [facility] Comment on above: Performed By: #### C BC #### [facility] [address] [place] [address] Dr. Efren Parra LYMPH # 2.3 103/ul Normal 1.2-3.8 [facility] Comment on above: Performed By: #### C BC #### [facility] [address] [place] [address] Dr. Efren Parra Lymphocytes/100 WBC (Bld) 35.5 % Normal 20.5-60.0 [facility] Comment on above: Performed By: #### C BC #### [facility] [address] [place] [address] Dr. Efren Parra MANUAL DIFF REQ NO Normal [facility] Comment on above: Performed By: #### C BC #### [facility] [address] [place] [address] Dr. Efren Parra MCH (RBC) [Entitic mass] 30.9 pg Normal 26.7-34.0 [facility] Comment on above: Performed By: #### C BC #### [facility] [address] [place] [address] Dr. Efren Parra MCHC (RBC) [Mass/Vol] 36.3 g/dL Critically high 29.9-35.2 [facility] Comment on above: Performed By: #### C BC #### [facility] [address] [place] [address] Dr. Efren Parra MCV (RBC) [Entitic vol] 85.1 fL Normal 81.0-99.0 [facility] Comment on above: Performed By: #### C BC #### [facility] [address] [place] [address] Dr. Efren Parra MONO # 0.4 103/ul Normal 0.3-0.8 [facility] Comment on above: Performed By: #### C BC #### [facility] [address] [place] [address] Dr. Efren Parra Monocytes/100 WBC (Bld) 6.0 % Normal 1.7-12.0 [facility] Comment on above: Performed By: #### C BC #### [facility] [address] [place] [address] Dr. Efren Parra NEUT # 3.8 103/ul Normal 1.4-6.5 [facility] Comment on above: Performed By: #### C BC #### [facility] [address] [place] [address] Dr. Efren Parra Neutrophils/100 WBC (Bld) 57.7 % Normal 43.0-75.0 [facility] Comment on above: Performed By: #### C BC #### [facility] [address] [address] [address] Efren Parra Platelet mean volume (Bld) [Entitic vol] 11.1 fL Normal 9.5-13.5 [facility] Comment on above: Performed By: #### C BC #### [facility] [address] [address] [address] Efren Parra PLT 243 103/ul Normal 150-450 [facility] Comment on above: Performed By: #### C BC #### [facility] [address] [address] [address] Efren Parra RBC 4.98 106/ul Normal 4.20-5.40 [facility] Comment on above: Performed By: #### C BC #### [facility] [address] [place] [address] Dr. Efren Parra WBC 6.5 103/ul Normal 4.0-11.0 [facility] Comment on above: Performed By: #### C BC #### [facility] [address] [place] [address] FACIAL BONES WO [...] ISAC LIU Date: 2022-12-15 21:33 Normal [facility] CT HEAD WO CONon 12-15-2022 [...] ISAC LIU Date: 2022-12-15 21:23 Normal [facility] PROF CHEM 8 (BAS METB)on Anion gap [Moles/Vol] 14.3 mmol/L Normal [facility] Comment on above: Performed By: #### C BC #### [facility] [address] [place] [address] Dr. Efren Parra Calcium [Mass/Vol] 9.6 mg/dL Normal 8.5-10.1 [facility] Comment on above: Performed By: #### C BC #### [facility] [address] [address] [address] Efren Parra Chloride [Moles/Vol] 104 mmol/L Normal 98-107 [facility] Comment on above: Performed By: #### C BC #### [facility] [address] [address] [address] Efren Parra CO2 [Moles/Vol] 26.2 mmol/L Normal 21.0-32.0 [facility] Comment on above: Performed By: #### C BC #### [facility] [address] [address] [address] Efren Parra Creatinine [Mass/Vol] 0.63 mg/dL Normal 0.55-1.02 [facility] Comment on above: Performed By: #### C BC #### [facility] [address] [address] [address] Efren Parra EGFR-AF AZERBAIJANI >60 Normal >=60 [facility] Comment on above: Performed By: #### C BC #### [facility] [address] [address] [address] Efren Parra EGFR-NON AF AZERBAIJANI >60 Normal >=60 [facility] Comment on above: Performed By: #### C BC #### [facility] [address] [address] [address] Efren Parra Glucose [Mass/Vol] 102 mg/dL Normal 74-106 [facility] Comment on above: Performed By: #### C BC #### [facility] [address] [address] [address] fEren Parra Potassium [Moles/Vol] 3.5 mmol/L Normal 3.5-5.1 [facility] Comment on above: Performed By: #### C BC #### [facility] [address] [address] [address] Efren Parra Sodium [Moles/Vol] 141 mmol/L Normal 136-145 [facility] Comment on above: Performed By: #### C BC #### [facility] [address] [address] [address] Efren Parra Urea nitrogen [Mass/Vol] 10.0 mg/dL Normal 7.0-18.0 [facility] Comment on above: Performed By: #### C BC #### [facility] [address] [address] [address] Efren Parra Urea nitrogen/Creatinine [Mass ratio] 15.9 mg/mg Normal [facility] Comment on above: Performed By: #### C BC #### [facility] [address] [address] [address] Efren Parra XR CHEST 2 Von [...] Normal chest x-rays Electronically authenticated by: ALBINA Dobson: 2022-12-15 21:16 Normal [facility] Amphetamine Screen Ql (U)Ord ered By: Nito Walton on 11-20-2022 Amphetamines Ql (U) Positive Negative [facility] Barbiturates [Presence] in U rineOrdered By: Nito Walton on 11-20-2022 Barbiturates Ql (U) Negative Negative [facility] Basophils Auto (Bld) [#/Vol] Ordered By: Nito Walton on 11-20-2022 Basophils (Bld) [#/Vol] 0.0 10*3/uL 0.0-0.2 [facility] Basophils/100 WBC Auto (Bld) Ordered By: Nito Walton on 11-20-2022 Basophils/100 WBC (Bld) 0.3 % . [facility] Benzodiazepines [Presence] i n UrineOrdered By: Nito Walton on 11-20-2022 Benzodiazepines Ql (U) Positive Negative [facility] Body fluid albumin measureme nt (mass/volume)Ordered [...] ng/mL PCP 25 ng/mL THC 20 ng/mL Creatinine and Glomerular fi ltration rate.predicted panel (S/P/Bld)Ordered By: Nito Walton on 11-20-2022 Creatinine [Mass/Vol] 0.58 mg/dL 0.44-1.03 [facility] Eosinophils Auto (Bld) [#/Vo l]Ordered By: Nito [...] rate/Area] > 60 mL/Min [facility] Globulin Calc (S) [Mass/Vol] Ordered By: Nito Walton on 11-20-2022 Globulin (S) [Mass/Vol] 2.7 g/dL [facility] Hematocrit Auto (Bld) [Volum e fraction]Ordered By: Nito Walton on 11-20-2022 Hematocrit (Bld) [Volume fraction] 41.9 % 34.0-46.4 [facility] Hemoglobin [Mass/volume] in BloodOrdered By: Nito Walton on 11-20-2022 Hemoglobin (Bld) [Mass/Vol] 14.1 g/dL 11.8-15.4 [facility] - Drug toxicology Ordered By: Nito Walton on 11-20-2022 Opiates Ql (U) Negative Negative [facility] Leukocytes [#/volume] correc neeam for nucleated erythrocytes in Blood by Automated [...] MCHC (RBC) [Mass/Vol] 33.6 g/dL 32.0-35.0 [facility] MCV Auto (RBC) [Entitic vol] Ordered By: Nito Walton on 11-20-2022 MCV (RBC) [Entitic vol] 92.1 fL 80-100 [facility] Monocyte distribution width [Entitic volume] in [...] Monocytes/100 WBC (Bld) 5.8 % . [facility] Neutrophils Auto (Bld) [#/Vo l]Ordered By: [...] on 11-20-2022 Phencyclidine Ql (U) Negative Negative [facility] Platelet mean volume Auto (B ld) [Entitic vol]Ordered By: Nito Walton on 11-20-2022 Platelet mean volume (Bld) [Entitic vol] 9.9 fL 6.3-10.7 [facility] Platelets Auto (Bld) [#/Vol] Ordered By: Nito Walton on 11-20-2022 Platelets (Bld) [#/Vol] 202 10*3/uL 150-450 [facility] Protein [Mass/volume] in Ser um or PlasmaOrdered By: Nito Walton on 11-20-2022 Protein [Mass/Vol] 6.6 g/dL 6.1-7.9 [facility] RBC Auto (Bld) [#/Vol]Ordere d By: Nito Walton on 11-20-2022 RBC (Bld) [#/Vol] 4.55 10*6/uL 3.60-5.[address] [facility] Serum or plasma alanine preston otransferase [...] 11-20-2022 Anion gap [Moles/Vol] 15.9 mmol/L 6.0-15.0 [facility] Serum or plasma aspartate am inotransferase measurement (enzymatic activity/volume)Ordered By: Nito Walton on 11-20-2022 AST [Catalytic activity/Vol] 29 U/L 10-42 [facility] Serum or plasma calcium randall urement (mass/volume)Ordered By: Nito Walton on 11-20-2022 Calcium [Mass/Vol] 9.6 mg/dL 8.2-10.2 [facility] Serum or plasma chloride fabian surement (moles/volume)Ordered By: Nito Walton on 11-20-2022 Chloride [Moles/Vol] 97 mmol/L 95-114 [facility] Serum or plasma ethanol randall urement (mass/volume)Ordered By: Nito Walton on 11-20-2022 Ethanol [Mass/Vol] mg/dL [facility] Ethanol [Mass/Vol] TNP [facility] Comment on above: Test not performed Serum or plasma glucose randall urement (mass/volume)Ordered By: Nito Walton on 11-20-2022 Glucose [Mass/Vol] 105 mg/dL 70-100 [facility] Comment on above: ADA recommended refe rence rangeRandom Glucose Reference Range is dependent on time and content of last meal. Glucose of more than 200 mg/dL in a nonstressed, ambulatory subject supports the diagnosis of Diabetes Mellitus. Serum or plasma potassium me asurement (moles/volume)Ordered By: Nito Walton on 11-20-2022 Potassium [Moles/Vol] 3.8 mmol/L 3.5-5.1 [facility] Serum or plasma sodium measu rement (moles/volume)Ordered By: Nito Walton on 11-20-2022 Sodium [Moles/Vol] 134 mmol/L 136-146 [facility] Serum or plasma total biliru bin measurement (mass/volume)Ordered By: Nito Walton on 11-20-2022 Bilirubin [Mass/Vol] 0.7 mg/dL 0.3-1.2 [facility] Serum or plasma total carbon dioxide measurement (moles/volume)Ordered By: Nito Walton on 11-20-2022 CO2 [Moles/Vol] 24.9 mmol/L 22.0-30.[address] [facility] Serum or plasma urea nitroge n measurement (mass/volume)Ordered By: Nito Walton on 11-20-2022 Urea nitrogen [Mass/Vol] 6 mg/dL 9 [facility] Urine cocaine detectionOrder ed By: Nito Walton on 11-20-2022 Cocaine Ql (U) Negative Negative [facility] WBC Auto (Bld) [#/Vol]Ordere d By: Nito Walton on 11-20-2022 WBC (Bld) [#/Vol] 12.4 10*3/uL 3.8-11.[address] [facility] CHEMISTRYOrdered By: SYSTEM SYSTEM on 11-10-2022 [...] [facility] Remisol Ethanol [Mass/Vol] mg/dL Normal <=7mg/dL [facility] R emisol GFR/1.73 sq M.predicted among blacks MDRD (S/P/Bld) [Vol rate/Area] mL/min/1.73 m2 Normal >=59mL/min/1. 73 m2 [facility] [facility] Chem S GFR/1.73 sq M.predicted among non-blacks MDRD (S/P/Bld) [Vol rate/Area] mL/min/1.73 m2 Normal >=59mL/min/1. 73 m2 [facility] Chem S Globulin (S) [Mass/Vol] 3.0 g/dL Normal 1.4 - 4.0 gm/dL [facility] Remisol Glucose [Mass/Vol] 112 mg/dL Normal 55 [...] 13.3 % Normal 10.9 - 14.2 % [facility] HemeAutoSS Hematocrit (Bld) [Volume fraction] 39.5 % [...] NEG Ctl Pass (11/10/22 12:58 AM) Normal [facility] Man Sero Rapid COV Int POS Ctl Pass (11/10/22 12:58 AM) Normal [facility] Sero SARS-CoV+SARS-CoV-2 (COVID-19) Ag IA.rapid Ql (Resp) Not Detected (11/10/22 12:58 AM) Normal Not Detected [facility] Sero SEROLOGYOrdered By: Edna Novak on [...] Interpretation Code Negative [facility] UA Auto SS [place].plasma/[place]. RBC (Bld) [Mass ratio] 4-20 /HPF Normal 0-3/HPF [facility] UA A uto SS Mucus Ql (Urine [...] [facility] UA Auto SS Urobilinogen Qn (U) [id number] {Adria'U}/dL Normal 0.0 - 1.0 EU/dL [facility] [...] tracking purpose only. No Panel InformationOrdered By: Zain Reyes on 08-08-2022 SARS Antigen (LFIA) [facility] XR CHEST 1 Von 06-23-2022 XR [...] by: ALBINA BRODERICK Date: 2022-06-22 22:40 Normal [facility] CBC AUTO DIFFon 06-22-2022 BASO # 0.0 103/ul Normal 0.0-0.1 [facility] Comment on above: Performed By: #### C BC #### [facility] [address] [place] [address] Dr. Efren Parra Basophils/100 WBC (Bld) 0.2 % Normal 0.2-2.0 [facility] Comment on above: Performed By: #### C BC #### [facility] [address] [address] [address] Efren Parra EO # 0.0 103/ul Normal 0.0-0.7 [facility] Comment on above: Performed By: #### C BC #### [facility] [address] [address] [address] Efren Parra Eosinophils/100 WBC (Bld) 0.1 % Critically low 0.9-7.0 [facility] Comment on above: Performed By: #### C BC #### [facility] [address] [address] [address] Efren Parra Erythrocyte distribution width (RBC) [Ratio] 12.9 % Normal 11.0-15.0 [facility] Comment on above: Performed By: #### C BC #### [facility] [address] [address] [address] Efren Parra Hematocrit (Bld) [Volume fraction] 37.0 % Normal 36.0-48.0 [facility] Comment on above: Performed By: #### C BC #### [facility] [address] [address] [address] Efren Parra Hemoglobin (Bld) [Mass/Vol] 12.6 g/dL Normal 12.0-16.0 [facility] Comment on above: Performed By: #### C BC #### [facility] [address] [place] [address] Dr. Efren Parra IG # 0.06 10e3/ul Critically high 0.00-0.03 [facility] Comment on above: Performed By: #### C BC #### [facility] [address] [place] [address] Dr. Efren Parra IG % 0.5 % Normal 0.0-0.5 [facility] Comment on above: Performed By: #### C BC #### [facility] [address] [place] [address] Dr. Efren Parra LYMPH # 4.8 103/ul Critically high 1.2-3.8 [facility] Comment on above: Performed By: #### C BC #### [facility] [address] [place] [address] Dr. Efren Parra Lymphocytes/100 WBC (Bld) 36.3 % Normal 20.5-60.0 [facility] Comment on above: Performed By: #### C BC #### [facility] [address] [place] [address] Dr. Efren Parra MANUAL DIFF REQ NO Normal [facility] Comment on above: Performed By: #### C BC #### [facility] [address] [place] [address] Dr. Efren Parra MCH (RBC) [Entitic mass] 31.7 pg Normal 26.7-34.0 [facility] Comment on above: Performed By: #### C BC #### [facility] [address] [place] [address] Dr. Erfen Parra MCHC (RBC) [Mass/Vol] 34.1 g/dL Normal 29.9-35.2 [facility] Comment on above: Performed By: #### C BC #### [facility] [address] [address] [address] Efren Parra MCV (RBC) [Entitic vol] 93.0 fL Normal 81.0-99.0 [facility] Comment on above: Performed By: #### C BC #### [facility] [address] [address] [address] Efren Parra MONO # 0.8 103/ul Normal 0.3-0.8 [facility] Comment on above: Performed By: #### C BC #### [facility] [address] [address] [address] Efren Parra Monocytes/100 WBC (Bld) 5.8 % Normal 1.7-12.0 [facility] Comment on above: Performed By: #### C BC #### [facility] [address] [place] [address] Dr. Efren Parra NEUT # 7.6 103/ul Critically high 1.4-6.5 [facility] Comment on above: Performed By: #### C BC #### [facility] [address] [place] [address] Dr. Efren Parra Neutrophils/100 WBC (Bld) 57.1 % Normal 43.0-75.0 [facility] Comment on above: Performed By: #### C BC #### [facility] [address] [place] [address] Dr. Efren Parra Platelet mean volume (Bld) [Entitic vol] 10.7 fL Normal 9.5-13.5 [facility] Comment on above: Performed By: #### C BC #### [facility] [address] [place] [address] Dr. Efren Parra PLT 270 103/ul Normal 150-450 [facility] Comment on above: Performed By: #### C BC #### [facility] [address] [place] [address] Dr. Efren Parra RBC 3.98 106/ul Critically low 4.20-5.40 [facility] Comment on above: Performed By: #### C BC #### [facility] [address] [place] [address] Dr. Efren Parra WBC 13.2 103/ul Critically high 4.0-11.0 [facility] Comment on above: Performed By: #### C BC #### [facility] [address] [place] [address] Dr. Efren Parra D-DIMERon 06-22-2022 D-DIMER 0.24 mg/L FEU Normal <=0.59 [facility] Comment on above: Performed By: #### C BC #### [facility] [address] [place] [address] Dr. Efren Parra D-DIMER COMMENTS SEE BELOW Normal [facility] Comment on above: Result Comment: Incr [...] hospitalization. Performed By: #### C BC #### [facility] [address] [place] [address] Dr. Efren Parra PROF 14(COMP METB)on 022 Albumin [Mass/Vol] 3.4 g/dL Normal 3.4-5.0 [facility] Comment on above: Performed By: #### C BC #### [facility] [address] [place] [address] Dr. Efren Parra Albumin/Globulin [Mass ratio] 0.9 {ratio} Normal [facility] Comment on above: Performed By: #### C BC #### [facility] [address] [place] [address] Dr. Efren Parra ALP [Catalytic activity/Vol] 49 U/L Normal 46-116 [facility] Comment on above: Performed By: #### C BC #### [facility] [address] [place] [address] Dr. Efren Parra ALT [Catalytic activity/Vol] 14 U/L Normal 14-59 [facility] Comment on above: Performed By: #### C BC #### [facility] [address] [place] [address] Dr. Efren Parra Anion gap [Moles/Vol] 15.1 mmol/L Normal [facility] Comment on above: Performed By: #### C BC #### [facility] [address] [address] [address] Efren Parra AST [Catalytic activity/Vol] 14 U/L Critically low 15-37 [facility] Comment on above: Performed By: #### C BC #### [facility] [address] [address] [address] Efren Parra Bilirubin [Mass/Vol] 0.2 mg/dL Normal 0.2-1.0 [facility] Comment on above: Performed By: #### C BC #### [facility] [address] [place] [address] Dr. Efren Parra Calcium [Mass/Vol] 8.9 mg/dL Normal 8.5-10.1 [facility] Comment on above: Performed By: #### C BC #### [facility] [address] [place] [address] Dr. Efren Parra Chloride [Moles/Vol] 102 mmol/L Normal 98-107 [facility] Comment on above: Performed By: #### C BC #### [facility] [address] [address] [address] Efren Parra CO2 [Moles/Vol] 25.9 mmol/L Normal 21.0-32.0 [facility] Comment on above: Performed By: #### C BC #### [facility] [address] [address] [address] Efren Parra Creatinine [Mass/Vol] 0.72 mg/dL Normal 0.55-1.02 [facility] Comment on above: Performed By: #### C BC #### [facility] [address] [address] [address] Efren Parra EGFR-AF AZERBAIJANI >60 Normal >=60 [facility] Comment on above: Performed By: #### C BC #### [facility] [address] [address] [address] Efren Parra EGFR-NON AF AZERBAIJANI >60 Normal >=60 [facility] Comment on above: Performed By: #### C BC #### [facility] [address] [address] [address] Efren Parra Globulin (S) [Mass/Vol] 3.8 g/dL Normal [facility] Comment on above: Performed By: #### C BC #### [facility] [address] [address] [address] Efren Parra Glucose [Mass/Vol] 92 mg/dL Normal 74-106 [facility] Comment on above: Performed By: #### C BC #### [facility] [address] [address] [address] Efren Parra Potassium [Moles/Vol] 4.0 mmol/L Normal 3.5-5.1 [facility] Comment on above: Performed By: #### C BC #### [facility] [address] [address] [address] Efren Parra Protein [Mass/Vol] 7.2 g/dL Normal 6.4-8.2 [facility] Comment on above: Performed By: #### C BC #### [facility] [address] [place] [address] Dr. Efren Parra Sodium [Moles/Vol] 139 mmol/L Normal 136-[address] [facility] Comment on above: Performed By: #### C BC #### [facility] [address] [address] [address] Efren Parra Urea nitrogen [Mass/Vol] 17.0 mg/dL Normal 7.0-18.0 [facility] Comment on above: Performed By: #### C BC #### [facility] [address] [place] [address] Dr. Efren Parra Urea nitrogen/Creatinine [Mass ratio] 23.6 mg/mg Normal [facility] Comment on above: Performed By: #### C BC #### [facility] [address] [place], [place] [address] Dr. Efren aPrra TROPONIN, HIGH SENSITIVITYon 06-22-2022 HSTROP <4.0 Normal 4.0-51.3 [facility] Comment on above: Result Comment: CUT- OFF POINTS HAVE BEEN ESTABLISHED BASED ON THE FOURTH UNIVERSAL DEFINITIONS OF MYOCARDIAL INFARCTION. THE UPPER REFERENCE LIMIT (URL) OF TROPONIN, DEFINED THE 99TH PERCENTILE OF cTnI DISTRIBUTION IN A REFERENCE POPULATION, HAS BEEN CONFIRMED THE DECISION THRESHOLD FOR [place] DIAGNOSIS. Performed By: #### C BC #### [facility] [address] [place], [place] [address] Dr. Efren Parra Covid-19 PCR (CVDTB)on SARS-CoV-2 (COVID-19) RNA LUKASZ+probe Ql (Unsp spec) Not detected Normal NOT DETECTED [facility] Comment on above: Result Comment: [...] for this test is supported by the [place] of Health and Human Service's declaration that [...] used). Performed By: #### C VDTBH #### [facility] [address] [place], [place] [address] Dr. Efren Parra XR CHEST 2 Von [...] ALBINA BRODERICK Date: 2022-06-16 21:42 Normal [facility] CHEMISTRYOrdered By: SYSTEM SYSTEM on 04-24-2022 Amphetamines Screen method >1000 ng/mL Ql (U) Positive 2 *ABN* (04/24/22 5:12 PM) Invalid Interpretation Code Negative [facility] Comment on above: Result Comment: Crit ical Result verified by repeat analysis\No confirmation requested by Physican\Unconfirmed by alternate method\Critical Result UD_AMPH:POS Called to [facility] And Read Back For Confirmation at: 04/24/2022 17:56:35 Barbiturates Screen Ql (U) Positive 3 *ABN* (04/24/22 5:12 PM) Invalid Interpretation Code Negative [facility] Comment on above: Result Comment: Crit ical Result verified by repeat analysis\No confirmation requested by Physican\Unconfirmed by alternate method\Critical Result UD_BARB:POS Called to [facility] by СВЕТЛАНА CHRISTINA And Read Back For Confirmation at: 04/24/2022 17:56:35 Benzodiazepines Ql (U) Positive 1 *ABN* (04/24/22 5:12 PM) Invalid Interpretation Code Negative [facility] Comment on above: Result Comment: Crit ical Result verified by repeat analysis\No confirmation requested by Physican\Unconfirmed by alternate method\Critical Result UD_BENZ:POS Called to [facility] by СВЕТЛАНА CHRISTINA And Read [...] mmol/L Normal 6 - 16 mEq/L [facility] Calcium [Mass/Vol] 9.3 mg/dL Normal 8.9 - 11. 1 mg/dL [facility] Chloride [Moles/Vol] 102 mmol/L Normal 101 - 1 11 mmol/L [facility] CO2 [Moles/Vol] 25 mmol/L Normal 21 - 31 mmol/L [facility] Creatinine [Mass/Vol] 0.5 mg/dL Normal 0.5 - 1.3 mg/dL [facility] GFR/1.73 sq M.predicted among blacks MDRD (S/P/Bld) [Vol rate/Area] mL/min/1.73 m2 Normal >=59mL/min/1. 73 m2 [facility] Chem S GFR/1.73 sq M.predicted among non-blacks MDRD (S/P/Bld) [Vol rate/Area] mL/min/1.73 m2 Normal >=59mL/min/1. 73 m2 [facility] Chem S Glucose [Mass/Vol] 112 mg/dL Normal [...] 11.0 E9/L Normal 4.0 - 11.0 E9/L [facility] HemeAutoSS Laboratory - Microbiology an d Antimicrobial susceptibilityon 04-24-2022 Bacteria identified Cx Nom (U) >100,000 cfu/ml Non Fermentering Gram Negative [facility] MICRO OTHER TESTSOrdered By: Carrie Molina on 04-24-2022 Rapid COV Int NEG Ctl Pass (04/24/22 3:50 PM) Normal [facility] Sero Rapid COV Int POS Ctl Pass (04/24/22 3:50 PM) Normal [facility] Sero SARS-CoV+SARS-CoV-2 (COVID-19) Ag IA.rapid Ql (Resp) Not Detected (04/24/22 3:50 PM) Normal Not Detected [facility] Man Sero URINALYSISOrdered By: Carrie mckee on [...] Interpretation Code Negative [facility] UA Auto SS [place].plasma/[place]. RBC (Bld) [Mass ratio] 0-3 /HPF Normal 0-3/HPF [facility]A A uto SS Nitrite Ql (U) Positive *ABN* (04/24/22 5:12 PM) Invalid Interpretation Code Negative [facility] UA Auto SS pH (U) 7.0 *NA* (04/24/22 5:12 PM) Invalid Interpretation Code 5.0 - 9.0 [facility] UA Auto SS Protein (U) [Mass/Vol] Trace *ABN* (04/24/22 5:12 PM) Invalid Interpretation Code Negative [facility] UA Auto SS Specific gravity (U) [Rel density] 1.020 *NA* (04/24/22 5:12 PM) Invalid Interpretation Code 1.005 - 1.030 [facility]A Auto SS UA Spec Desc Clean Catch (04/24/22 5:12 PM) Normal [facility] UA Auto SS Urobilinogen Qn (U) 0.0675206 {Adria'U}/dL Normal 0.0 - 1.0 EU/dL [facility] UA Auto SS WBC Auto Ql (U) 3+ *ABN* (04/24/22 5:12 PM) Invalid Interpretation Code Negative [facility] UA Auto SS WBC LM.HPF (Urine sed) [#/Area] /[HPF] Invalid Interpretation Code 0-5/HPF [facility] UA Auto SS CULTURE URINEon 04-13-2022 CULTURE [...] Trimethoprim/Sulfamet hoxazole >=320 R F Normal [facility] Comment on above: Performed By: #### C BC #### [facility] [address] [address] [address] Efren Parra Covid-19 PCR ([facility])on SARS-CoV-2 (COVID-19) RNA LUKASZ+probe Ql (Unsp spec) Not detected Normal NOT DETECTED [facility] Comment on above: Result Comment: [...] for this test is supported by the Board Certified Orthodontist of Health and Human Service's declaration that [...] used). Performed By: #### C BC #### [facility] [address] [place] [address] Dr. Efren Parra ACETAMINOPHENon 04-10-2022 Acetaminophen [Mass/Vol] ug/mL Critically low 10.0-30.0 [facility] Comment on above: Performed By: #### A CET, ETH, SALYC, CMP #### [facility] [address] [place] [address] Dr. Efren Parra CBC AUTO DIFFon 04-10-2022 BASO # 0.0 103/ul Normal 0.0-0.1 [facility] Comment on above: Performed By: #### C BC #### [facility] [address] [place] [address] Dr. Efren Parra Basophils/100 WBC (Bld) 0.5 % Normal 0.2-2.0 [facility] Comment on above: Performed By: #### C BC #### [facility] [address] [place] [address] Dr. Efren Parra EO # 0.1 103/ul Normal 0.0-0.7 [facility] Comment on above: Performed By: #### C BC #### [facility] [address] [place] [address] Dr. Efren Parra Eosinophils/100 WBC (Bld) 0.9 % Normal 0.9-7.0 [facility] Comment on above: Performed By: #### C BC #### [facility] [address] [place] [address] Dr. Efren Parra Erythrocyte distribution width (RBC) [Ratio] 11.9 % Normal 11.0-15.0 [facility] Comment on above: Performed By: #### C BC #### [facility] [address] [place] [address] Dr. Efren Parra Hematocrit (Bld) [Volume fraction] 42.3 % Normal 36.0-48.0 [facility] Comment on above: Performed By: #### C BC #### [facility] [address] [place] [address] Dr. Efren Parra Hemoglobin (Bld) [Mass/Vol] 14.6 g/dL Normal 12.0-16.0 [facility] Comment on above: Performed By: #### C BC #### [facility] [address] [place] [address] Dr. Efren Parra IG # 0.03 10e3/ul Normal 0.00-0.03 [facility] Comment on above: Performed By: #### C BC #### [facility] [address] [place] [address] Dr. fEren Parra IG % 0.5 % Normal 0.0-0.5 [facility] Comment on above: Performed By: #### C BC #### [facility] [address] [place] [address] Dr. Efren Parra LYMPH # 1.5 103/ul Normal 1.2-3.8 [facility] Comment on above: Performed By: #### C BC #### [facility] [address] [place] [address] Dr. Efren Parra Lymphocytes/100 WBC (Bld) 22.9 % Normal 20.5-60.0 [facility] Comment on above: Performed By: #### C BC #### [facility] [address] [place] [address] Dr. Efren Parra MANUAL DIFF REQ NO Normal [facility] Comment on above: Performed By: #### C BC #### [facility] [address] [place] [address] Dr. Efren Parra MCH (RBC) [Entitic mass] 31.9 pg Normal 26.7-34.0 [facility] Comment on above: Performed By: #### C BC #### [facility] [address] [place] [address] Dr. Efren Parra MCHC (RBC) [Mass/Vol] 34.5 g/dL Normal 29.9-35.2 [facility] Comment on above: Performed By: #### C BC #### [facility] [address] [place] [address] Dr. Efren Parra MCV (RBC) [Entitic vol] 92.4 fL Normal 81.0-99.0 [facility] Comment on above: Performed By: #### C BC #### [facility] [address] [place] [address] Dr. Efren Parra MONO # 0.3 103/ul Normal 0.3-0.8 [facility] Comment on above: Performed By: #### C BC #### [facility] [address] [place] [address] Dr. Efren Parra Monocytes/100 WBC (Bld) 4.7 % Normal 1.7-12.0 [facility] Comment on above: Performed By: #### C BC #### [facility] [address] [place] [address] Dr. Efren Parra NEUT # 4.7 103/ul Normal 1.4-6.5 [facility] Comment on above: Performed By: #### C BC #### [facility] [address] [place] [address] Dr. Efren Parra Neutrophils/100 WBC (Bld) 70.5 % Normal 43.0-75.0 [facility] Comment on above: Performed By: #### C BC #### [facility] [address] [place] [address] Dr. Efren Parra Platelet mean volume (Bld) [Entitic vol] 11.0 fL Normal 9.5-13.5 [facility] Comment on above: Performed By: #### C BC #### [facility] [address] [place] [address] Dr. Efren Parra PLT 226 103/ul Normal 150-450 [facility] Comment on above: Performed By: #### C BC #### [facility] [address] [place] [address] Dr. Efren Parra RBC 4.58 106/ul Normal 4.20-5.40 [facility] Comment on above: Performed By: #### C BC #### [facility] [address] [place] [address] Dr. Efren Parra WBC 6.6 103/ul Normal 4.0-11.0 [facility] Comment on above: Performed By: #### C BC #### [facility] [address] [place] [address] Dr. Efren Parra DEPAKENE/VALPROICon 04-10-20 22 DEPAKENE 35.2 ug/ml Critically low 50.0-100.0 [facility] Comment on above: Performed By: #### C BC #### [facility] [address] [place] [address] Dr. Efren Parra DRUG SCREEN RAPID (URINE)on 04-10-2022 AMP Negative Normal NEGATIVE [facility] Comment on above: Performed By: #### C BC #### [facility] [address] [place] [address] Dr. Efren Parra BAR Negative Normal NEGATIVE [facility] Comment on above: Performed By: #### C BC #### [facility] [address] [place] [address] Dr. Efren Parra BUP Positive Abnormal NEGATIVE [facility] Comment on above: Performed By: #### C BC #### [facility] [address] [place] [address] Dr. Efren Parra BZO Negative Normal NEGATIVE [facility] Comment on above: Performed By: #### C BC #### [facility] [address] [place] [address] Dr. Efren Parra RENEA Negative Normal NEGATIVE [facility] Comment on above: Performed By: #### C BC #### [facility] [address] [place] [address] Dr. Efren Parra CUT-OFFS SEE BELOW Normal [facility] Comment on above: Result Comment: AMP [...] ng/mL Performed By: #### C BC #### [facility] [address] [place] [address] Dr. Efren Parra DRUG CUT HEADER DRUG CLASS TEST SYSTEM CUT-OFF CONCENTRATIONS ARE FOLLOWS: Normal [facility] Comment on above: Performed By: #### C BC #### [facility] [address] [place] [address] Dr. Efren Parra mAMP Negative Normal NEGATIVE [facility] Comment on above: Performed By: #### C BC #### [facility] [address] [place] [address] Dr. Efren Parra MTD Negative Normal NEGATIVE [facility] Comment on above: Performed By: #### C BC #### [facility] [address] [place] [address] Dr. Efren Parra OPI Negative Normal NEGATIVE [facility] Comment on above: Performed By: #### C BC #### [facility] [address] [place] [address] Dr. Efren Parra OXY Negative Normal NEGATIVE [facility] Comment on above: Performed By: #### C BC #### [facility] [address] [place] [address] Dr. Efren Parra PCP Negative Normal NEGATIVE [facility] Comment on above: Performed By: #### C BC #### [facility] [address] [place] [address] Dr. Efren Parra PPX Negative Normal NEGATIVE [facility] Comment on above: Performed By: #### C BC #### [facility] [address] [address] [address] Efren Parra TCA Negative Normal NEGATIVE [facility] Comment on above: Performed By: #### C BC #### [facility] [address] [place] [address] Dr. Efren Parra THC Negative Normal NEGATIVE [facility] Comment on above: Performed By: #### C BC #### [facility] [address] [address] [address] Efren Parra ER URINE PROFILEon 2 Bilirubin Ql (U) Negative Normal NEGATIVE [facility] Comment on above: Performed By: #### U MICRO, DRUGRPD, ERUR #### [facility] [address] [place] [address] Dr. Efren Parra Clarity (U) CLEAR Normal CLEAR [facility] Comment on above: Performed By: #### U MICRO, DRUGRPD, ERUR #### [facility] [address] [place] [address] Dr. Efren Parra Color (U) LT. YELLOW Normal YELLOW [facility] Comment on above: Performed By: #### U MICRO, DRUGRPD, ERUR #### [facility] [address] [place] [address] Dr. Efren TIERNEYAHNiraj A micrscopic examination will be performed if indicated. Normal [facility] Comment on above: Performed By: #### U MICRO, DRUGRPD, ERUR #### [facility] [address] [place] [address] Dr. Efren Parra Glucose Ql (U) Negative Normal NEGATIVE [facility] Comment on above: Performed By: #### U MICRO, DRUGRPD, ERUR #### [facility] [address] [place] [address] Dr. Efren Parra Hemoglobin Ql (U) Negative Normal NEGATIVE [facility] Comment on above: Performed By: #### U MICRO, DRUGRPD, ERUR #### [facility] [address] [place] [address] Dr. Efern Parra Ketones Ql (U) TRACE Abnormal NEGATIVE [facility] Comment on above: Performed By: #### U MICRO, DRUGRPD, ERUR #### [facility] [address] [place] [address] Dr. Efren Parra LEUKOCYTES TRACE Abnormal NEGATIVE [facility] Comment on above: Performed By: #### U MICRO, DRUGRPD, ERUR #### [facility] [address] [place] [address] Dr. Efren Parra Nitrite Ql (U) Positive Abnormal NEGATIVE [facility] Comment on above: Performed By: #### U MICRO, DRUGRPD, ERUR #### [facility] [address] [place] [address] Dr. Efren Parra pH (U) 8.5 [pH] Normal 5-9 [facility] Comment on above: Performed By: #### U MICRO, DRUGRPD, ERUR #### [facility] [address] [place] [address] Dr. Efren Parra SPEC GRAVITY 1.015 Normal 1.005-<=1.025 [facility] Comment on above: Performed By: #### U MICRO, DRUGRPD, ERUR #### [facility] [address] [place] [address] Dr. Efren Parra UA PROTEIN Negative Normal NEGATIVE/ TRACE [facility] Comment on above: Performed By: #### U MICRO, DRUGRPD, ERUR #### [facility] [address] [place] [address] Dr. Efren Parra UR MICRO IND INDICATED Normal [facility] Comment on above: Performed By: #### U MICRO, DRUGRPD, ERUR #### [facility] [address] [place] [address] Dr. Efren Parra Urobilinogen Qn (U) 0.2 {Adria'U}/dL Normal 0.2 - 1. 0 [facility] Comment on above: Performed By: #### U MICRO, DRUGRPD, ERUR #### [facility] [address] [place] [address] Dr. Efren Parra ETHANOL (BLD ALC)on 04-10-20 22 ALC NOTE NOTE: 80 mg/dl is legal limit for a blood alcohol level Normal [facility] Comment on above: Performed By: #### A CET, ETH, SALYC, CMP #### [facility] [address] [place] [address] Dr. Efren Parra Ethanol [Mass/Vol] mg/dL Normal [facility] Comment on above: Performed By: #### A CET, ETH, SALYC, CMP #### [facility] [address] [address] [address] Efren Parra PREG HCG QUALon 04-10-2022 , QUAL Negative Normal NEGATIVE [facility] Comment on above: Performed By: #### P REG #### [facility] [address] [place] [address] Dr. Efren Parra PROF 14(COMP METB)on 022 Albumin [Mass/Vol] 3.6 g/dL Normal 3.4-5.0 [facility] Comment on above: Performed By: #### A CET, ETH, SALYC, CMP #### [facility] [address] [place] [address] Dr. Efren Parra Albumin/Globulin [Mass ratio] 1.0 {ratio} Normal [facility] Comment on above: Performed By: #### A CET, ETH, SALYC, CMP #### [facility] [address] [place] [address] Dr. Efren Parra ALP [Catalytic activity/Vol] 62 U/L Normal 46-116 [facility] Comment on above: Performed By: #### A CET, ETH, SALYC, CMP #### [facility] [address] [place] [address] Dr. Efren Parra ALT [Catalytic activity/Vol] 29 U/L Normal 14-59 [facility] Comment on above: Performed By: #### A CET, ETH, SALYC, CMP #### [facility] [address] [place] [address] Dr. Efren Parra Anion gap [Moles/Vol] 10.8 mmol/L Normal [facility] Comment on above: Performed By: #### A CET, ETH, SALYC, CMP #### [facility] [address] [address] [address] Efren Parra AST [Catalytic activity/Vol] 11 U/L Critically low 15-37 [facility] Comment on above: Performed By: #### A CET, ETH, SALYC, CMP #### [facility] [address] [place] [address] Dr. Efren Parra Bilirubin [Mass/Vol] 0.4 mg/dL Normal 0.2-1.0 [facility] Comment on above: Performed By: #### A CET, ETH, SALYC, CMP #### [facility] [address] [place] [address] Dr. Efren Parra Calcium [Mass/Vol] 9.3 mg/dL Normal 8.5-10.1 [facility] Comment on above: Performed By: #### A CET, ETH, SALYC, CMP #### [facility] [address] [place] [address] Dr. Efren Prara Chloride [Moles/Vol] 105 mmol/L Normal 98-107 [facility] Comment on above: Performed By: #### A CET, ETH, SALYC, CMP #### [facility] [address] [place] [address] Dr. Efren Parra CO2 [Moles/Vol] 26.8 mmol/L Normal 21.0-32.[address] [facility] Comment on above: Performed By: #### A CET, ETH, SALYC, CMP #### [facility] [address] [place] [address] Dr. Efren Parra Creatinine [Mass/Vol] 0.64 mg/dL Normal 0.55-1.02 [facility] Comment on above: Performed By: #### A CET, ETH, SALYC, CMP #### [facility] [address] [place] [address] Dr. Efren Parra EGFR-AF AZERBAIJANI >60 Normal >=[address] [facility] Comment on above: Performed By: #### A CET, ETH, SALYC, CMP #### [facility] [address] [address] [address] Efren Parra EGFR-NON AF AZERBAIJANI >60 Normal >=60 [facility] Comment on above: Performed By: #### A CET, ETH, SALYC, CMP #### [facility] [address] [address] [address] Efren Parra Globulin (S) [Mass/Vol] 3.5 g/dL Normal [facility] Comment on above: Performed By: #### A CET, ETH, SALYC, CMP #### [facility] [address] [address] [address] Efren Parra Glucose [Mass/Vol] 113 mg/dL Critically high 74-106 [facility] Comment on above: Performed By: #### A CET, ETH, SALYC, CMP #### [facility] [address] [place] [address] Dr. Efren Parra Potassium [Moles/Vol] 4.6 mmol/L Normal 3.5-5.1 [facility] Comment on above: Performed By: #### A CET, ETH, SALYC, CMP #### [facility] [address] [place] [address] Dr. Efren Parra Protein [Mass/Vol] 7.1 g/dL Normal 6.4-8.2 [facility] Comment on above: Performed By: #### A CET, ETH, SALYC, CMP #### [facility] [address] [address] [address] Efren Parra Sodium [Moles/Vol] 138 mmol/L Normal 136-145 [facility] Comment on above: Performed By: #### A CET, ETH, SALYC, CMP #### [facility] [address] [address] [address] Efren Parra Urea nitrogen [Mass/Vol] 8.0 mg/dL Normal 7.0-18.0 [facility] Comment on above: Performed By: #### A CET, ETH, SALYC, CMP #### [facility] [address] [address] [address] Efren Parra Urea nitrogen/Creatinine [Mass ratio] 12.5 mg/mg Normal [facility] Comment on above: Performed By: #### A CET, ETH, SALYC, CMP #### [facility] [address] [place] [address] Dr. Efren Parra SALICYLATEon 04-10-2022 SALICYLATE 3.3 mg/dL Normal <=19.9 [facility] Comment on above: Performed By: #### A CET, ETH, SALYC, CMP #### [facility] [address] [place] [address] Dr. Efren Parra URINE MICROSCOPIC ONLYon BACTERIA LARGE Abnormal NONE SEEN [facility] Comment on above: Performed By: #### C BC #### [facility] [address] [place] [address] Dr. Efren Parra Bacteria identified Cx Nom (U) INDICATED Normal [facility] Comment on above: Performed By: #### C BC #### [facility] [address] [place] [address] Dr. Efren Parra CAST NONE SEEN Normal NONE SEEN [facility] Comment on above: Performed By: #### C BC #### [facility] [address] [place] [address] Dr. Efren Parra Crystals LM Nom (Urine sed) NONE SEEN Normal NONE SEEN [facility] Comment on above: Performed By: #### C BC #### [facility] [address] [place] [address] Dr. Efren Parra Epithelial cells LM Ql (Urine sed) MANY Abnormal NONE SEEN /RARE [facility] Comment on above: Performed By: #### C BC #### [facility] [address] [place] [address] Dr. Efren Parra MUCOUS NONE SEEN Normal NONE SEEN [facility] Comment on above: Performed By: #### C BC #### [facility] [address] [place] [address] Dr. Efren Parra RBC 0-2 Normal 0-2 [facility] Comment on above: Performed By: #### C BC #### [facility] [address] [place] [address] Dr. Efren Parra WBC 5-10 Abnormal NONE SEEN [facility] Comment on above: Performed By: #### C BC #### [facility] [address] [place], [place] [address] Dr. Efren Parra Hemoglobin A1Con 02-08-2021 Glucose [Mass/Vol] 103 mg/dL Normal [facility] Comment on above: Result Comment: The ADA and AACC recommend providing the estimated average glucose result to permit better patient understanding of their HBA1c result. Performed By: #### G LYHGB #### [facility] [address] [place], [place] [id number] [employer]: Bryan Cruz MD HbA1c (Bld) [Mass fraction] 5.2 % Normal 4.0-6.0 [facility] Comment on above: Performed By: #### G LYHGB #### [facility] [address] [place], [place] [id number] [employer]: Bryan Cruz MD XR CHEST (SINGLE VIEW [...] Usama Xavier MD 02/07/21 Final result Normal [facility] Drug Scr, Abuse, Uron 2020 Amphetamine(s),Ur Negative Normal NEG [facility] Comment on above: Result Comment: (Positive cutoff 1000 ng/mL) Performed By: #### U HCG #### [facility] [address] [place] [address] [employer]: José Miguel Monzon DO Barbiturate(s),Ur Negative Normal NEG [facility] Comment on above: Result Comment: (Positive cutoff 200 ng/mL) Performed By: #### U HCG #### [facility][note 2][address] [place] [address] [employer]: José Miguel Monzon DO Benzodiazepine(s) Positive Abnormal NEG [facility] Comment on above: Result Comment: (Positive cutoff 200 ng/mL) Performed By: #### U HCG #### [facility] [address] [place] [address] [employer]: José Miguel Monzon DO Cannabinoid(s),Ur Negative Normal NEG [facility] Comment on above: Result Comment: (Positive cutoff 50 ng/mL) Performed By: #### U HCG #### [facility] [address] [place] [address] [employer]: José Miguel Monzon DO Cocaine Metabolite Negative Normal [facility] Comment on above: Result Comment: (Positive cutoff 300 ng/mL) Performed By: #### U HCG #### [facility] [address] [place] [address] [employer]: José Miguel Monzon DO Interpretive Info Assay provides medical screening only. The absence of expected drug(s) and/or Normal [facility] Comment on above: Result Comment: meta bolite(s) may indicate diluted or adulterated urine, limitations of testing or timing of collection. Testing for legal purposes should be confirmed by another method. To request confirmation of test result, please call the lab within 7 days of sample submission. Performed By: #### U HCG #### [facility] [address] [place] [address] [employer]: José Miguel Monzon DO Methadone Ql (U) Negative Normal NEG [facility] Comment on above: Result Comment: (Positive cutoff 300 ng/mL) Performed By: #### U HCG #### [facility] [address] [place] [address] [employer]: José Miguel Monzon DO Opiate(s), Ur Negative Normal NEG [facility] Comment on above: Result Comment: (Positive cutoff 300 ng/mL) Performed By: #### U HCG #### [facility] [address] [place] [address] [employer]: José Miguel Monzon DO Oxycodone, Urine Negative Normal NEG [facility] Comment on above: Result Comment: (Positive cutoff 100 ng/mL) Performed By: #### U HCG #### [facility] [address] [place] [address] [employer]: José Miguel Monzon DO Phencyclidine, Ur Negative Normal NEG [facility] Comment on above: Result Comment: (Positive cutoff 25 ng/mL) Performed By: #### U HCG #### [facility] [address] [place] [address] [employer]: José Miguel Monzon DO Buprenorphrine, Ur NOT REPORTED Normal NEG [facility] Comment on above: Performed By: #### U HCG #### [facility] [address] [place] [address] [employer]: José Miguel Monzon DO MDMA, Urine NOT REPORTED Normal NEG [facility] Comment on above: Performed By: #### U HCG #### [facility] [address] [place] [address] [employer]: José Miguel Monzon DO Methamphetamine, Ur NOT REPORTED Normal NEG [facility] Comment on above: Performed By: #### U HCG #### [facility] [address] [place] [address] [employer]: José Miguel Monzon DO Propoxyphene,Urine NOT REPORTED Normal NEG [facility] Comment on above: Performed By: #### U HCG #### [facility] [address] [place] [address] [employer]: José Miguel Monzon DO Tricyclic antidepressants Screen Ql (U) NOT REPORTED Normal NEG [facility] Comment on above: Performed By: #### U HCG #### [facility] [address] [place] [address] [employer]: José Miguel Monzon DO Urinalysis, Routineon 2020 Acetoacetic Acid,Ur Negative Normal NEG [facility] Comment on above: Performed By: #### U HCG #### [facility] [address] [place] [address] [employer]: José Miguel Monzon DO Bilirubin, SemiQt,Ur Negative Normal NEG [facility] Comment on above: Performed By: #### U HCG #### [facility] [address] [place] [address] [employer]: José Miguel Monzon DO Color (U) YELLOW Normal YEL [facility] Comment on above: Performed By: #### U HCG #### [facility] [address] [place] [address] [employer]: José Miguel Monzon DO Glucose Ql (U) Negative Normal NEG [facility] Comment on above: Performed By: #### U HCG #### [facility] [address] [place] [address] [employer]: José Miguel Monzon DO Hemoglobin, Ur MOD Abnormal NEG [facility] Comment on above: Performed By: #### U HCG #### [facility] [address] [place] [address] [employer]: José Miguel Monzon DO Leukocyte esterase Test strip Ql (U) LARGE Abnormal NEG [facility] Comment on above: Performed By: #### U HCG #### [facility] [address] [place] [address] [employer]: José Miguel Monzon DO Nitrite,Ur Negative Normal NEG [facility] Comment on above: Performed By: #### U HCG #### [facility] [address] [place] [address] [employer]: José Miguel Monzon DO PH,Ur 7.5 Normal 5.0-8.0 [facility] Comment on above: Performed By: #### U HCG #### [facility][note 2][address] [place] [address] [employer]: José Miguel Monzon DO Protein Ql (U) 2+ Abnormal NEG [facility] Comment on above: Performed By: #### U HCG #### [facility][note 2][address] [place] [address] [employer]: José Miguel Monzon DO Spec. [place],Ur 1.019 Normal 1.000-1.030 [facility] Comment on above: Performed By: #### U HCG #### [facility][note 2][address] [place] [address] [employer]: José Miguel Monzon DO Turbidity TURBID Abnormal CLEAR [facility] Comment on above: Performed By: #### U HCG #### [facility][note 2][address] [place] [address] [employer]: José Miguel Monzon DO Urobilinogen,Ur Normal Normal NORM [facility] Comment on above: Performed By: #### U HCG #### [facility] [address] [place] [address] [employer]: José Miguel Monzon DO Comment NOT REPORTED Normal [facility] Comment on above: Performed By: #### U HCG #### [facility][note 2][address] [place] [address] [employer]: José Miguel Monzon DO Urinalysis,Microon 1 ----- Normal [facility] Comment on above: Performed By: #### U HCG #### [facility] [address] [place] [address] [employer]: José Miguel Monzon DO Bacteria MANY Abnormal NONE [facility] Comment on above: Performed By: #### U HCG #### [facility] [address] [place] [address] [employer]: José Miguel Monzon DO Epithelial cells LM Ql (Urine sed) 2 TO 5 Normal [facility] Comment on above: Performed By: #### U HCG #### [facility] [address] [place] [address] [employer]: José Miguel Monzon DO Urine RBC's 10 TO 20 Normal [facility] Comment on above: Performed By: #### U HCG #### [facility] [address] [place] [address] [employer]: José Miguel Monzon DO Urine WBC's 50 TO 100 Normal [facility] Comment on above: Performed By: #### U HCG #### [facility] [address] [place] [address] [employer]: José Miguel Monzon DO Amorphous sediment LM Ql (Urine sed) NOT REPORTED Normal [facility] Comment on above: Performed By: #### U HCG #### [facility] [address] [place] [address] [employer]: José Miguel Monzon DO Casts NOT REPORTED Normal [facility] Comment on above: Performed By: #### U HCG #### [facility] [facility] [address] [place] [address] Dressed Poultry Grader: José Miguel Monzon DO Crystals LM Nom (Urine sed) NOT REPORTED Normal NONE [facility] Comment on above: Performed By: #### U HCG #### [facility] [place][note 2][address] [place] [address] Dressed Poultry Grader: José Miguel Monzon DO Epithelial, Renal NOT REPORTED Normal 0 [facility] Comment on above: Performed By: #### U HCG #### [facility] [address] [place] [address] Dressed Poultry Grader: José Miguel Monzon DO Mucus Strands NOT REPORTED Normal NONE [facility] Comment on above: Performed By: #### U HCG #### [facility] [address] [place] [address] Dressed Poultry Grader: José Miguel Monzon DO Other Observations NOT REPORTED Normal NREQ [facility] Comment on above: Performed By: #### U HCG #### [facility] [place][note 2][address] [place] [address] Dressed Poultry Grader: José Miguel Monzon DO Trichomonas NOT REPORTED Normal NONE [facility] Comment on above: Performed By: #### U HCG #### [facility] [place][note 2][address] [place] [address] Dressed Poultry Grader: José Miguel Monzon DO Yeast NOT REPORTED Normal NONE [facility] Comment on above: Performed By: #### U HCG #### [facility] [place][note 2][address] [place] [address] Dressed Poultry Grader: José Miguel Monzon DO Acetaminophenon 02-05-2021 Acetaminophen [Mass/Vol] ug/mL Low 10-30 [facility] Comment on above: Performed By: #### C MPX, REJEC, HCG, ACET, ALCB, SALI #### [facility] [address] [place] [address] Dressed Poultry Grader: José Miguel Monzon DO CBC with Diffon 02-05-2021 Abs. Basophil 0.00 k/uL Normal 0.0-0.2 [facility] Comment on above: Performed By: #### U HCG #### [facility] [address] [place] [address] Dressed Poultry Grader: José Miguel Monzon DO Abs.Neutrophil (Seg) 3.50 k/uL Normal 1.3-9.1 [facility] Comment on above: Performed By: #### U HCG #### [facility] [address] [place] [address] Dressed Poultry Grader: José Miguel Monzon DO Basophils/100 WBC (Bld) 1 % Normal 0-2 [facility] Comment on above: Performed By: #### U HCG #### [facility] [address] [place] [address] Dressed Poultry Grader: José Miguel Monzon DO Eosinophils (Bld) [#/Vol] 0.10 10*3/uL Normal 0.0-0.4 [facility] Comment on above: Performed By: #### U HCG #### [facility] [place][note 2][address] [place] [address] Dressed Poultry Grader: José Miguel Monzon DO Eosinophils/100 WBC (Bld) 2 % Normal 0-4 [facility] Comment on above: Performed By: #### U HCG #### [facility] [address] [place] [address] Dressed Poultry Grader: José Miguel Monzon DO Erythrocyte distribution width (RBC) [Ratio] 13.3 % Normal 11.5-14.9 [facility] Comment on above: Performed By: #### U HCG #### [facility] [address] [place] [address] Dressed Poultry Grader: José Miguel Monzon DO Hematocrit (Bld) [Volume fraction] 35.6 % Low 36-46 [facility] Comment on above: Performed By: #### U HCG #### [facility] [address] [place] [address] Dressed Poultry Grader: José Miguel Monzon DO Hemoglobin (Bld) [Mass/Vol] 12.1 g/dL Normal 12.0-16.0 [facility] Comment on above: Performed By: #### U HCG #### [facility] [address] [place] [address] Dressed Poultry Grader: José Miguel Monzon DO Lymphocytes (Bld) [#/Vol] 2.30 10*3/uL Normal 1.0-4.8 [facility] Comment on above: Performed By: #### U HCG #### [facility] [address] [place] [address] Dressed Poultry Grader: José Miguel Monzon DO Lymphocytes/100 WBC (Bld) 36 % Normal 24-44 [facility] Comment on above: Performed By: #### U HCG #### [facility] [address] [place] [address] Dressed Poultry Grader: José Miguel Monzon DO MCH (RBC) [Entitic mass] 30.9 pg Normal 26-34 [facility] Comment on above: Performed By: #### U HCG #### [facility] [address] [place] [address] Dressed Poultry Grader: José Miguel Monzon DO MCHC (RBC) [Mass/Vol] 33.9 g/dL Normal 31-37 [facility] Comment on above: Performed By: #### U HCG #### [facility] [address] [facility] [place] [address] Dressed Poultry Grader: José Miguel Monzon DO MCV (RBC) [Entitic vol] 91.4 fL Normal 80-100 M [facility] Comment on above: Performed By: #### U HCG #### [facility] [place][note 2]0 [facility] [place] [address] Dressed Poultry Grader: José Miguel Monzon DO Monocytes (Bld) [#/Vol] 0.40 10*3/uL Normal 0.1-1.3 [facility] Comment on above: Performed By: #### U HCG #### [facility] [address] [place] [address] Dressed Poultry Grader: José Miguel Monzon DO Monocytes/100 WBC (Bld) 7 % Normal 1-7 M [facility] Comment on above: Performed By: #### U HCG #### [facility] [place][note 2]0 [facility] [place] [address] Dressed Poultry Grader: José Miguel Monzon DO Neutrophil (Seg) 54 % Normal 36-66 [facility] Comment on above: Performed By: #### U HCG #### [facility] [address] [place] [address] Dressed Poultry Grader: José Miguel Monzon DO Platelet mean volume (Bld) [Entitic vol] 8.6 fL Normal 6.0-12.0 [facility] Comment on above: Performed By: #### U HCG #### [facility] [place][note 2][address] [place] [address] Dressed Poultry Grader: José Miguel Monzon DO Platelets (Bld) [#/Vol] 212 10*3/uL Normal 150-450 [facility] Comment on above: Performed By: #### U HCG #### [facility] [address] [place] [address] Dressed Poultry Grader: José Miguel Monzon DO RBC (Bld) [#/Vol] 3.90 10*6/uL Low 4.0-5.2 [facility] Comment on above: Performed By: #### U HCG #### [facility] [place][note 2][address] [place] [address] Dressed Poultry Grader: José Miguel Monzon DO WBC (Bld) [#/Vol] 6.4 10*3/uL Normal 3.5-11.0 [facility] Comment on above: Performed By: #### U HCG #### [facility] [address] [place] [address] Dressed Poultry Grader: José Miguel Monzon DO Abs.Imm.Granulocyte NOT REPORTED Normal 0.00-0.30 [facility] Comment on above: Performed By: #### U HCG #### [facility] [address] [place] [address] Dressed Poultry Grader: José Miguel Monzon DO Auto Diff Performed NOT REPORTED Normal [facility] Comment on above: Performed By: #### U HCG #### [facility] [address] [place] [address] Dressed Poultry Grader: José Miguel Monzon DO Immature Granulocyte NOT REPORTED Normal 0 [facility] Comment on above: Performed By: #### U HCG #### [facility] [address] [place] [address] Dressed Poultry Grader: José Miguel Monzon DO NRBC Automated NOT REPORTED Normal [facility] Comment on above: Performed By: #### U HCG #### [facility] [address] [place] [address] Dressed Poultry Grader: José Miguel Monzon DO Platelet Estimate NOT REPORTED Normal [facility] Comment on above: Performed By: #### U HCG #### [facility] [address] [facility] [place] [address] Dressed Poultry Grader: José Miguel Monzon DO RBC morphology finding Nom (Bld) NOT REPORTED Normal [facility] Comment on above: Performed By: #### U HCG #### [facility] [address] [facility] [place] [address] Dressed Poultry Grader: José Miguel Monzon DO WBC Morphology NOT REPORTED Normal [facility] Comment on above: Performed By: #### U HCG #### [facility] [place][note 2]0 [facility] [place] [address] Dressed Poultry Grader: José Miguel Monzon DO Comp Metabolic Pr/rfx MGon 0 - AST [Catalytic activity/Vol] 17 U/L Normal <32 [facility] Comment on above: Performed By: #### C MPX, REJEC, HCG, ACET, ALCB, SALI #### [facility] [address] [facility] [place] [address] Dressed Poultry Grader: José Miguel Monzon DO Bilirubin [Mass/Vol] mg/dL Low 0.3-1.2 [facility] Comment on above: Performed By: #### C MPX, REJEC, HCG, ACET, ALCB, SALI #### [facility] [place][note 2]0 [facility] [place] [address] Dressed Poultry Grader: José Miguel Monzon DO Potassium [Moles/Vol] 4.4 mmol/L Normal 3.7-5.3 [facility] Comment on above: Result Comment: SPEC IMEN SLIGHTLY HEMOLYZED, RESULTS MAY BE ADVERSELY AFFECTED. Performed By: #### C MPX, REJEC, HCG, ACET, ALCB, SALI #### [facility] [address] [place] [address] Dressed Poultry Grader: José Miguel Monzon DO (cont.) Normal [facility] Comment on above: Result Comment: Aver age GFR for 30-39 years old: 107 mL/min/1.73sq m Chronic Kidney Disease: <60 mL/min/1.73sq m Kidney failure: <15 mL/min/1.73sq m eGFR calculated using average adult body mass. Additional eGFR calculator available at: http://www.Alt[employer]/multiple_crcl_2012.htm Performed By: #### C MPX, REJEC, HCG, ACET, ALCB, SALI #### [facility] [address] [facility] [place] [address] Dressed Poultry Grader: José Miguel Monzon DO Albumin [Mass/Vol] 3.7 g/dL Normal 3.5-5.2 [facility] Comment on above: Performed By: #### C MPX, REJEC, HCG, ACET, ALCB, SALI #### [facility] [address] [facility] [place] [address] Dressed Poultry Grader: José Miguel Monzon DO Alkaline Phos 42 U/L Normal 35-104 [facility] Comment on above: Performed By: #### C MPX, REJEC, HCG, ACET, ALCB, SALI #### [facility] [address] [facility] [place] [address] Dressed Poultry Grader: José Miguel Monzon DO ALT [Catalytic activity/Vol] 12 U/L Normal 5-33 [facility] Comment on above: Performed By: #### C MPX, REJEC, HCG, ACET, ALCB, SALI #### [facility] [address] [facility] [place] [address] Dressed Poultry Grader: José Miguel Monzon DO Anion gap [Moles/Vol] 15 mmol/L Normal 9-17 [facility] Comment on above: Performed By: #### C MPX, REJEC, HCG, ACET, ALCB, SALI #### [facility] [address] [facility] [place] [address] Dressed Poultry Grader: José Miguel Monzon DO Calcium [Mass/Vol] 9.4 mg/dL Normal 8.6-10.4 [facility] Comment on above: Performed By: #### C MPX, REJEC, HCG, ACET, ALCB, SALI #### [facility] [address] [place] [address] Dressed Poultry Grader: José Miguel Monzon DO Chloride [Moles/Vol] 100 mmol/L Normal 98-107 [facility] Comment on above: Performed By: #### C MPX, REJEC, HCG, ACET, ALCB, SALI #### [facility] [address] [place] [address] Dressed Poultry Grader: José Miguel Monzon DO CO2 [Moles/Vol] 21 mmol/L Normal 20-31 [facility] Comment on above: Performed By: #### C MPX, REJEC, HCG, ACET, ALCB, SALI #### [facility] [address] [place] [address] Dressed Poultry Grader: José Miguel Monzon DO Creatinine [Mass/Vol] 0.51 mg/dL Normal 0.50-0.90 [facility] Comment on above: Performed By: #### C MPX, REJEC, HCG, ACET, ALCB, SALI #### [facility] [place][note 2][address] [place] [address] Dressed Poultry Grader: José Miguel Monzon DO GFR, Amer >60 Normal >60 [facility] Comment on above: Performed By: #### C MPX, REJEC, HCG, ACET, ALCB, SALI #### [facility] [address] [place] [address] Dressed Poultry Grader: José Miguel Monzon DO GFR,non Amer >60 Normal >60 [facility] Comment on above: Performed By: #### C MPX, REJEC, HCG, ACET, ALCB, SALI #### [facility] [address] [place] [address] Dressed Poultry Grader: José Miguel Monzon DO Glucose [Mass/Vol] 111 mg/dL High 70-99 [facility] Comment on above: Performed By: #### C MPX, REJEC, HCG, ACET, ALCB, SALI #### [facility] [address] [place] [address] Dressed Poultry Grader: José Miguel Monzon DO Protein [Mass/Vol] 6.6 g/dL Normal 6.4-8.3 [facility] Comment on above: Performed By: #### C MPX, REJEC, HCG, ACET, ALCB, SALI #### [facility] [address] [place] [address] Dressed Poultry Grader: José Miguel Monzon DO Sodium [Moles/Vol] 136 mmol/L Normal 135-144 [facility] Comment on above: Performed By: #### C MPX, REJEC, HCG, ACET, ALCB, SALI #### [facility] [address] [facility] [place] [place] [address] Dressed Poultry Grader: José Miguel Monzon DO Urea nitrogen [Mass/Vol] 14 mg/dL Normal 6-20 [facility] Comment on above: Performed By: #### C MPX, REJEC, HCG, ACET, ALCB, SALI #### [facility] [address] [place] [address] Dressed Poultry Grader: José Miguel Monzon DO Albumin/Glob Ratio NOT REPORTED Normal 1.0-2.5 [facility] Comment on above: Performed By: #### C MPX, REJEC, HCG, ACET, ALCB, SALI #### [facility] [address] [place] [address] Dressed Poultry Grader: José Miguel Monzon DO BUN/CRE Ratio NOT REPORTED Normal 9-20 [facility] Comment on above: Performed By: #### C MPX, REJEC, HCG, ACET, ALCB, SALI #### [facility] [address] [facility] [place] [address] Dressed Poultry Grader: José Miguel Monzon DO Staging: NOT REPORTED Normal [facility] Comment on above: Performed By: #### C MPX, REJEC, HCG, ACET, ALCB, SALI #### [facility] [address] [facility] [place] [address] Dressed Poultry Grader: José Miguel Monzon DO Ethanol Alcoholon 02-05-2021 Ethanol [Mass/Vol] mg/dL Normal <10 [facility] Comment on above: Performed By: #### C MPX, REJEC, HCG, ACET, ALCB, SALI #### [facility] [address] [facility] [place] [address] Dressed Poultry Grader: José Miguel Monzon DO Ethanol percent <0.010 Normal [facility] Comment on above: Performed By: #### C MPX, REJEC, HCG, ACET, ALCB, SALI #### [facility] [address] [facility] [place] [address] Dressed Poultry Grader: José Miguel Monzon DO HCG Screen, Bloodon 02-06-20 21 HCG Screen, Blood Negative Normal NEG [facility] Comment on above: Result Comment: Spec [...] MPX, REJEC, HCG, ACET, ALCB, SALI #### [facility] [address] [facility] [place] [address] Dressed Poultry Grader: José Miguel Monzon DO [id number] 02-05-2021 SARS-CoV-2 (COVID-19) RNA LUKASZ+probe Ql (Unsp spec) Not detected Normal NOTDET [facility] Comment on above: Result Comment: Rapid [...] management decisions. Fact sheet for Healthcare Providers: https://www.fda.gov/media/772737/download Fact sheet for Patients: https://www.fda.gov/media/442038/download Methodology: Isothermal Nucleic Acid Amplification Performed By: #### U HCG #### [facility] [address] [facility] [place] [address] Dressed Poultry Grader: José Miguel Monzon DO Salicylateon 8 Salicylate <1 Low 3-10 [facility] Comment on above: Performed By: #### C MPX, REJEC, HCG, ACET, ALCB, SALI #### [facility] [address] [facility] [place] [address] Dressed Poultry Grader: José Miguel Monzon DO Specimen Rejectionon 021 Reason for rejection Unable to perform testing: Specimen quantity not sufficient. Normal [facility] Comment on above: Performed By: #### C MPX, REJEC, HCG, ACET, ALCB, SALI #### [facility] [address] [facility] [place] [address] Dressed Poultry Grader: José Miguel Monzon DO Source of sample .BLOOD Normal [facility] Comment on above: Performed By: #### C MPX, REJEC, HCG, ACET, ALCB, SALI #### [facility] [address] [facility] [place] [address] Dressed Poultry Grader: José Miguel Monzon DO Test ordered CDP Normal [facility] Comment on above: Performed By: #### C MPX, REJEC, HCG, ACET, ALCB, SALI #### [facility] [address] [facility] [place] [address] Dressed Poultry Grader: José Miguel Monzon DO ----- NOT REPORTED [facility] Comment on above: Performed By: #### C MPX, REJEC, HCG, ACET, ALCB, SALI #### [facility] [address] [facility] [place] [address] Dressed Poultry Grader: José Miguel Monzon DO HPV DNA High Riskon 10-22-20 20 HPV Genotype 16 Detected Normal [facility] Comment on above: Performed By: #### U HCG #### [facility] [address] [facility] [place] [address] Dressed Poultry Grader: José Miguel Monzon DO HPV Genotype 18 Not detected Normal [facility] Comment on above: Result Comment: (NOT [...] in women under age 21. Performed By: [facility] [address] [place] [address] Sleeve Tailor: Rebeca Alvarez MD Performed By: #### U HCG #### [facility] [address] [facility] [place] [address] Dressed Poultry Grader: José Miguel Monzon DO HPV Other High Risk Detected Normal [facility] Comment on above: Performed By: #### U HCG #### [facility] [address] [facility] [place] [address] Dressed Poultry Grader: José Miguel Monzon DO C.trachomatis N.gonorrhoeae DNA, Urineon 07-26-2020 C. trachomatis DNA ,Urine Negative NEGATIVE [facility], [place] Comment on above: CHLAMYDIA TRACHOMATI S [...] target. N. gonorrhoeae DNA, Urine Negative NEGATIVE [facility], [place] Comment on above: NEISSERIA GONORRHOEA E [...] alternative nucleic acid target. Specimen Description .URINE [facility], [place] Chlamydia/GC DNA, Uron 07-26 Chlamydia Probe, Ur Negative Normal NEG [facility] Comment on above: Result Comment: CHLA [...] target. Performed By: #### U HCG #### [facility] [address] [facility] [place], [place] [address] Dressed Poultry Grader: José Miguel Monzon DO Gonorrhea Probe, Ur Negative Normal NEG [facility] Comment on above: Result Comment: NEIS [...] target. Performed By: #### U HCG #### [facility] [address] [facility] [place] [address] Dressed Poultry Grader: José Miguel Monzon DO HOTEL OR MOTEL MANAGER Cytologyon 07-25-2020 Cytology report Cyto stain.thin prep Doc (Cvx/Vag) INTERPRETATION Cervical material, (ThinPrep vial, Imaging-assisted review): Specimen Adequacy: Satisfactory for evaluation. - Endocervical/transfor mation zone component present. 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 Atypical squamous cells of undetermined significance, cannot exclude high grade squamous intraepithelial lesion (ASC-H). Comments: High Risk HPV testing was ordered. Jigger Artisan: GRACE Mclain M.D. Electronically Signed Out sls/07/25/2020 Procedure/Addendum HPV Procedure Report Date Ordered: 07/25/2020 Status: Complete Date Complete: 07/25/2020 By: Date Reported: Source: 1: Cervical material, (ThinPrep vial, Imaging-assisted review) Clinical History Co-Test: ThinPrep Pap with high risk HPV testing GYNECOLOGIC CYTOLOGY REPORT Patient Name: LORNA DEUTSCH [facility] Rec: [id number] Path Number: [id number] [employer] [facility] ANATOMIC PATHOLOGY [address] [place] [address]. [place], [place] [address] [place], [place] HPV DNA High Riskon 07-25-20 20 HVP Source .GENITAL - NOT SPECIFIED Normal [facility] Comment on above: Performed By: #### U HCG #### [facility] [address] [place] [address] Dressed Poultry Grader: José Miguel Monzon DO Otheron 07-25-2020 EXAMINATION: [...] Fluid: Small volume left adnexal free fluid. [place], [place], [facility] Incoming Radiant Results From [facility] - 07/25/2020 7:17 PM EDT EXAMINATION: PELVIC [...] ovarian cyst. No follow-up imaging is recommended. [place], [place] Unremarkable pelvic ultrasound. 3.2 cm simple left ovarian cyst. No follow-up imaging is recommended. [place], [place] US NON OB TRANSVAGINALon US NON [...] Micheal Montesinos MD 07/25/20 Final result Normal [facility] US PELVIS COMPLETEon 020 US PELVIS [...] Micheal Montesinos MD 07/25/20 Final result Normal [facility] Cytologyon 07-24-2020 Cytology (NOTE) INTERPRETATION Cervical material, (ThinPrep vial, Imaging-assisted review): Specimen Adequacy: Satisfactory for evaluation. - Endocervical/transfor mation zone component present. 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 Atypical squamous cells of undetermined significance, cannot exclude high grade squamous intraepithelial lesion (ASC-H). Comments: High Risk HPV testing was ordered. Jigger Artisan: GRACE Mclain M.D. Electronically Signed Out 07/25/2020 [...] specimen submitted for testing did not meet [facility] submission guidelines. Testing was performed on a specimen that did not meet validated specimen type requirements. Performance characteristics of this assay may be affected. Interpret results with caution. Please refer to the [facility] Test Directory for information on specimen acceptability: [email or web address]. Performed By: [facility] [address] [place] [address] Sleeve Tailor: Rebeca Alvarez MD Source: 1: Cervical material, (ThinPrep vial, Imaging-assisted review) Clinical History Co-Test: ThinPrep Pap with high risk HPV testing GYNECOLOGIC CYTOLOGY REPORT Patient Name: LORNA DEUTSCH [facility] Rec: [id number] Path Number: [id number] [facility] ANATOMIC PATHOLOGY [address] [place] [address]. [place], [place] [address] [facility] Comment on above: Performed By: #### A HCV, HIVCMB #### [address] [id number] Dressed Poultry Grader: Bryan Cruz MD Otheron 07-24-2020 Direct Exam Negative [facility] Vaginitis DNA Probeon 2019 Vaginitis DNA Probe [...] symptoms of vaginitis/vaginosis. Report Status FINAL 07/24/2020 [facility] Comment on above: Performed By: #### U HCG #### [facility] [address] [place] [address] Dressed Poultry Grader: José Miguel Monzon DO Direct Exam Method of testing is a DNA probe intended for detection and identification of Jose Ramon species, Gardnerella vaginalis, and Trichomonas vaginalis nucleic acid in vaginal fluid specimens from patients with symptoms of vaginitis/vaginosis. [facility] [employer] GROUPSELECT [facility]ITAL[facility] Special Requests NOT REPORTED [place] Specimen Description .VAGINA [place] CBC with DIFFon 07-23-2020 Basophils (Bld) [#/Vol] 0.00 10*3/uL [place] Basophils/100 WBC (Bld) 0 % 0 - 2 % [place] Differential Type NOT REPORTED [place] Eosinophils (Bld) [#/Vol] 0.20 10*3/uL [place] Eosinophils/100 WBC (Bld) 4 % 0 - 4 % [place] Erythrocyte distribution width (RBC) [Ratio] 13.3 % 11.5 - 14.9 % [place] Hematocrit (Bld) [Volume fraction] 40.0 % 36 - 46 % [place] Hemoglobin (Bld) [Mass/Vol] 13.7 g/dL 12 - 16 g/dL [place] Interpretation and review of laboratory results Abnormal [place] Lymphocytes (Bld) [#/Vol] 2.64 10*3/uL [place] Lymphocytes/100 WBC (Bld) 54 % High 24 - 44 % [place] MCH (RBC) [Entitic mass] 31.4 pg 26 - 34 pg [place] MCHC (RBC) [Mass/Vol] 34.2 g/dL 31 - 37 g/dL [place], [place] MCV (RBC) [Entitic vol] 91.9 fL 80 - 100 fL [place] Monocytes (Bld) [#/Vol] 0.20 10*3/uL [place] Monocytes/100 WBC (Bld) 4 % 1 - 7 % [place] Morphology Dami (Bld) [Interp] Normal [place] Platelet mean volume (Bld) [Entitic vol] 10.1 fL 6 - 12 fL [place] Platelets (Bld) [#/Vol] NOT REPORTED [place] Platelets (Bld) [#/Vol] 142 10*3/uL [place] RBC (Bld) [#/Vol] 4.36 10*6/uL 4 - 5.2 m/uL [place] RBC morphology finding Nom (Bld) NOT REPORTED [place] Segmented neutrophils/100 WBC (Bld) 38 % 36 - 66 % [place] Segs Absolute 1.86 [place] WBC (Bld) [#/Vol] NOT REPORTED per 100 WBC [place] WBC (Bld) [#/Vol] 4.9 10*3/uL [place] WBC Morphology NOT REPORTED [place] CBC with Diffon 07-23-2020 Abs. Basophil 0.00 k/uL Normal 0.0-0.2 [facility] Comment on above: Performed By: #### U HCG #### [facility] [address] [place] [address] [employer] P[employer] Grader: José Miguel Monzon DO Abs.Neutrophil (Seg) 1.86 k/uL Normal 1.3-9.1 [facility] Comment on above: Performed By: #### U HCG #### [facility] [place][note 2][address] [place] [address] Dressed Poultry Grader: José Miguel Monzon DO Basophils/100 WBC (Bld) 0 % Normal 0-2 [facility] Comment on above: Performed By: #### U HCG #### [facility] [address] [place] [address]. [place] [address] D[employer] P[employer] Grader: José Miguel Monzon DO Eosinophils (Bld) [#/Vol] 0.20 10*3/uL Normal 0.0-0.4 [facility] Comment on above: Performed By: #### U HCG #### [facility] [address] [place] [address] [employer] P[employer] Grader: José Miguel Monozn DO Eosinophils/100 WBC (Bld) 4 % Normal 0-4 [facility] Comment on above: Performed By: #### U HCG #### [facility] [address] [place] [address] [employer] P[employer] Grader: José Miguel Monzon DO Lymphocytes (Bld) [#/Vol] 2.64 10*3/uL Normal 1.0-4.8 [facility] Comment on above: Performed By: #### U HCG #### [facility] [address] [place] [address] D[employer] P[employer] Grader: José Miguel Monzon DO Lymphocytes/100 WBC (Bld) 54 % High 24-44 [facility] Comment on above: Performed By: #### U HCG #### [facility] [place][note 2][address] [facility] [place] [place] [address] Dressed Poultry Grader: José Miguel Monozn DO Monocytes (Bld) [#/Vol] 0.20 10*3/uL Normal 0.1-1.3 [facility] Comment on above: Performed By: #### U HCG #### [facility] [place][note 2][address] [facility] [place] [place] [address] D[employer] Poultry Grader: José Miguel Monzon DO Monocytes/100 WBC (Bld) 4 % Normal 1-7 M [facility] Comment on above: Performed By: #### U HCG #### [facility] [place][note 2][address] [facility] [place] [place] [address] D[employer] Poultry Grader: José Miguel Monzon DO Morphology Dami (Bld) [Interp] Normal Normal [facility] Comment on above: Performed By: #### U HCG #### [facility] [place][note 2][address] [place] [address] D[employer] Poultry Grader: José Miguel Monzon DO Neutrophil (Seg) 38 % Normal 36-66 [facility] Comment on above: Performed By: #### U HCG #### [facility] [place][note 2][address] [place] [address] Dressed Poultry Grader: José Miguel Monzon DO Erythrocyte distribution width (RBC) [Ratio] 13.3 % Normal 11.5-14.9 [facility] Comment on above: Performed By: #### U HCG #### [facility] [place][note 2][address] [place] [address] Dressed Poultry Grader: José Miguel Monzon DO Hematocrit (Bld) [Volume fraction] 40.0 % Normal 36-46 [facility] Comment on above: Performed By: #### U HCG #### [facility] [address] [place] [address] D[employer] P[employer] Grader: José Miguel Monzon DO Hemoglobin (Bld) [Mass/Vol] 13.7 g/dL Normal 12.0-16.0 [facility] Comment on above: Performed By: #### U HCG #### [facility] [address] [place] [address] [employer] Grader: José Miguel Monzon DO MCH (RBC) [Entitic mass] 31.4 pg Normal 26-34 [facility] Comment on above: Performed By: #### U HCG #### [facility] [address] [place] [address] D[employer] P[employer] Grader: José Miguel Monzon DO MCHC (RBC) [Mass/Vol] 34.2 g/dL Normal 31-37 [facility] Comment on above: Performed By: #### U HCG #### [facility] [address] [place] [address] D[employer] P[employer] Grader: José Miguel Monzon DO MCV (RBC) [Entitic vol] 91.9 fL Normal 80-100 M [facility] Comment on above: Performed By: #### U HCG #### [facility] [address] [place] [address] D[employer] P[employer] Grader: José Miguel Monzon DO Platelet mean volume (Bld) [Entitic vol] 10.1 fL Normal 6.0-12.0 [facility] Comment on above: Performed By: #### U HCG #### [facility] [address] [place] [address] [employer] P[employer] Grader: José Miguel Monzon DO Platelets (Bld) [#/Vol] 142 10*3/uL Low 150-450 [facility] Comment on above: Performed By: #### U HCG #### [facility] [address] [place] [address] D[employer] Grader: José Miguel Monzon DO RBC (Bld) [#/Vol] 4.36 10*6/uL Normal 4.0-5.2 [facility] Comment on above: Performed By: #### U HCG #### [facility] [address] [place] [address] D[employer] Grader: José Miguel Monzon DO WBC (Bld) [#/Vol] 4.9 10*3/uL Normal 3.5-11.0 [facility] Comment on above: Performed By: #### U HCG #### [facility] [address] [place] [address] [employer] Grader: José Miguel Monzon DO Abs.Imm.Granulocyte NOT REPORTED Normal 0.00-0.30 [facility] Comment on above: Performed By: #### U HCG #### [facility] [address] [place] [address] D[employer] P[employer] Grader: José Miguel Monzon DO Auto Diff Performed NOT REPORTED Normal [facility] Comment on above: Performed By: #### U HCG #### [facility] [address] [place] [address] [employer] P[employer] Grader: José Miguel Monzon DO Immature Granulocyte NOT REPORTED Normal 0 [facility] Comment on above: Performed By: #### U HCG #### [facility] [address] [facility] [place] [address] Dressed Poultry Grader: José Miguel Monzon DO NRBC Automated NOT REPORTED Normal [facility] Comment on above: Performed By: #### U HCG #### [facility] [address] [facility] [place] [address] Dressed Poultry Grader: José Miguel Monzon DO Platelet Estimate NOT REPORTED Normal [facility] Comment on above: Performed By: #### U HCG #### [facility] [place][note 2]0 [facility] [place] [address] Dressed Poultry Grader: José Miguel Monzon DO RBC morphology finding Nom (Bld) NOT REPORTED Normal [facility] Comment on above: Performed By: #### U HCG #### [facility] [address] [place] [address]. [place] [address] Dressed Poultry Grader: José Miguel Monzon DO WBC Morphology NOT REPORTED Normal [facility] Comment on above: Performed By: #### U HCG #### [facility] [address] [place] [address]. [place] [address] D[employer] P[employer] Grader: José Miguel Monzon DO HCG, ,Urineon 07-23 Beta HCG ( test) Ql (U) Negative Normal NEG [facility] Comment on above: Result Comment: Spec imens with hCG levels near the threshold of the test (25 mIU/mL) may give a negative or indeterminate result. In such cases, another test should be performed with a new specimen in 48-72 hours. If early is suspected clinically in this setting, correlation with quantitative serum b-hCG level is suggested. Performed By: #### U HCG #### [facility] [address] [place] [address]. [place] [address] D[employer] Poultry Grader: José Miguel Monzon DO Beta HCG ( test) Ql (U) Negative NEGATIVE [facility] [place], [place] Comment on above: Specimens with [...] 07-23-2020 Immature granulocytes (Bld) [#/Vol] NOT REPORTED [place] EKG 12 Leadon 07-21-2020 Atrial Rate 64 BPM [place] P [place] 54 degrees [place] P-R Interval 138 ms [place] Q-T Interval 384 ms [place] QRS Duration 92 ms [place] QTc Calculation (Bazett) 396 ms [place] R [place] 66 degrees [facility] [place] T [place] 66 degrees [place] Ventricular Rate 64 BPM [place], [facility] Incoming Ekg Results From [facility] - 07/21/2020 9:25 AM EDT Normal sinus rhythm Normal ECG No previous ECGs available [place] Normal sinus rhythm Normal ECG No previous ECGs available [place] HIV Ag/Abon 07-21-2020 HIV Ag/Ab Non-Reactive Normal NR [facility] Comment on above: Result Comment: No l aboratory evidence of HIV infection. If acute HIV infection is suspected, consider testing for HIV-1 RNA. Performed By: #### A HCV, HIVCMB #### [facility] [address] [place] [address] [employer] P[employer] Grader: Bryan Cruz MD HIV Screenon 07-21-2020 HIV Ag/Ab NONREACTIVE NONREACTIVE [place] Comment on above: No laboratory eviden ce of HIV infection. If acute HIV infection is suspected, consider testing for HIV-1 RNA. T.pallidum Ab Screenon 07-21 T.pallidum Ab Screen Non-Reactive Normal NR [facility] Comment on above: Result Comment: T. pallidum antibodies are not detected. There is no serological evidence of infection with T. pallidum (early primary syphilis cannot be excluded). Retest in 2-4 weeks if syphilis is clinically suspect. Performed By: #### A HCV, HIVCMB #### [facility] [address] [place] [address] [employer] P[employer] Grader: Bryan Cruz MD T. pallidum, IgG NONREACTIVE NONREACTIVE [place] Comment on above: T. pallidum antibodies are not detected. There is no serological evidence of infection with T. pallidum (early primary syphilis cannot be excluded). Retest in 2-4 weeks if syphilis is clinically suspect. Valproic Acidon 07-21-2020 Date last dose, [id number] Normal [facility] Comment on above: Performed By: #### A HCV, HIVCMB #### [facility] [address] [place] [address] [employer] Grader: Bryan Cruz MD Dose amount 1000 MG Normal [facility] Comment on above: Performed By: #### A HCV, HIVCMB #### [facility] [address] [place] [address] [employer] Grader: Bryan Cruz MD Time last dose, 2040 [facility] Comment on above: Performed By: #### A HCV, HIVCMB #### [facility] [address] [place] [address] [employer] Grader: Bryan Cruz MD Valproic Acid 95 ug/mL Normal 50-125 [facility] Comment on above: Performed By: #### A HCV, HIVCMB #### [facility] [address] [place] [address] [employer] Grader: Bryan Cruz MD Valproic Acid Lvl 95 ug/mL 50 - 125 ug/mL [place] Valproic Date last dose [id number] [place] Valproic Dose amount 1000 MG [place] Valproic Time last dose 2040 [place] CBC with Diffon 07-20-2020 Abs. Basophil 0.00 k/uL Normal 0.0-0.2 [facility] Comment on above: Performed By: #### A HCV, HIVCMB #### [address] [address] [employer] Grader: Bryan Cruz MD Abs.Neutrophil (Seg) 1.80 k/uL Normal 1.3-9.1 [facility] Comment on above: Performed By: #### A HCV, HIVCMB #### [address] [address] [employer] P[employer] Grader: Bryan Cruz MD Basophils/100 WBC (Bld) 0 % Normal 0-2 [facility] Comment on above: Performed By: #### A HCV, HIVCMB #### [address] [address] [employer] Grader: Bryan Cruz MD Eosinophils (Bld) [#/Vol] 0.04 10*3/uL Normal 0.0-0.4 [facility] Comment on above: Performed By: #### A HCV, HIVCMB #### [address] [address] D[employer] P[employer] Grader: Bryan Cruz MD Eosinophils/100 WBC (Bld) 1 % Normal 0-4 [facility] Comment on above: Performed By: #### A HCV, HIVCMB #### [address] [address] [employer] Grader: Bryan Cruz MD Lymphocytes (Bld) [#/Vol] 1.92 10*3/uL Normal 1.0-4.8 [facility] Comment on above: Performed By: #### A HCV, HIVCMB #### [address] [address] D[employer] P[employer] Grader: Bryan Cruz MD Lymphocytes/100 WBC (Bld) 48 % High 24-44 [facility] Comment on above: Performed By: #### A HCV, HIVCMB #### [address] [address] D[employer] Grader: Bryan Cruz MD Monocytes (Bld) [#/Vol] 0.24 10*3/uL Normal 0.1-1.3 [facility] Comment on above: Performed By: #### A HCV, HIVCMB #### [address] [address] D[employer] P[employer] Grader: Bryan Cruz MD Monocytes/100 WBC (Bld) 6 % Normal 1-7 M [facility] Comment on above: Performed By: #### A HCV, HIVCMB #### [address] [address] Dressed P[employer] Grader: Bryan Cruz MD Morphology Dami (Bld) [Interp] Normal Normal [facility] Comment on above: Performed By: #### A HCV, HIVCMB #### [address] [address] D[employer] Grader: Bryan Cruz MD Neutrophil (Seg) 45 % Normal 36-66 [facility] Comment on above: Performed By: #### A HCV, HIVCMB #### [address] [address] [employer] Grader: Bryan Cruz MD Erythrocyte distribution width (RBC) [Ratio] 13.6 % Normal 11.5-14.9 [facility] Comment on above: Performed By: #### A HCV, HIVCMB #### [address] [address] [employer] Grader: Bryan Cruz MD Hematocrit (Bld) [Volume fraction] 41.6 % Normal 36-46 [facility] Comment on above: Performed By: #### A HCV, HIVCMB #### [address] [address] D[employer] Grader: Bryan Cruz MD Hemoglobin (Bld) [Mass/Vol] 13.9 g/dL Normal 12.0-16.0 [facility] Comment on above: Performed By: #### A HCV, HIVCMB #### [address] [address] D[employer] P[employer] Grader: Bryan Cruz MD MCH (RBC) [Entitic mass] 31.5 pg Normal 26-34 [facility] Comment on above: Performed By: #### A HCV, HIVCMB #### [address] [address] [employer] Grader: Bryan Cruz MD MCHC (RBC) [Mass/Vol] 33.5 g/dL Normal 31-37 [facility] Comment on above: Performed By: #### A HCV, HIVCMB #### [address] [address] D[employer] Grader: Bryan Cruz MD MCV (RBC) [Entitic vol] 94.1 fL Normal 80-100 M [facility] Comment on above: Performed By: #### A HCV, HIVCMB #### [address] [address] D[employer] P[employer] Grader: Bryan Cruz MD Platelet mean volume (Bld) [Entitic vol] 9.0 fL Normal 6.0-12.0 [facility] Comment on above: Performed By: #### A HCV, HIVCMB #### [address] [address] [employer] Grader: Bryan Cruz MD Platelets (Bld) [#/Vol] 159 10*3/uL Normal 150-450 [facility] Comment on above: Performed By: #### A HCV, HIVCMB #### [address] [address] [employer] Grader: Bryan Cruz MD RBC (Bld) [#/Vol] 4.42 10*6/uL Normal 4.0-5.2 [facility] Comment on above: Performed By: #### A HCV, HIVCMB #### [address] [address] [employer] Grader: Bryan Cruz MD WBC (Bld) [#/Vol] 4.0 10*3/uL Normal 3.5-11.0 [facility] Comment on above: Performed By: #### A HCV, HIVCMB #### [address] [address] [employer] P[employer] Grader: Bryan Cruz MD Abs.Imm.Granulocyte NOT REPORTED Normal 0.00-0.30 [facility] Comment on above: Performed By: #### A HCV, HIVCMB #### [address] [address] [employer] Grader: Bryan Cruz MD Auto Diff Performed NOT REPORTED Normal [facility] Comment on above: Performed By: #### A HCV, HIVCMB #### [address] [address] D[employer] P[employer] Grader: Bryan Cruz MD Immature Granulocyte NOT REPORTED Normal 0 [facility] Comment on above: Performed By: #### A HCV, HIVCMB #### [address] [address] [employer] Grader: Bryan Cruz MD NRBC Automated NOT REPORTED Normal [facility] Comment on above: Performed By: #### A HCV, HIVCMB #### [address] [address] [employer] Grader: Bryan Cruz MD Platelet Estimate NOT REPORTED Normal [facility] Comment on above: Performed By: #### A HCV, HIVCMB #### [address] [address] [employer] Grader: Bryan Cruz MD RBC morphology finding Nom (Bld) NOT REPORTED Normal [facility] Comment on above: Performed By: #### A HCV, HIVCMB #### [address] [id number] D[employer] Grader: Bryan Cruz MD WBC Morphology NOT REPORTED Normal [facility] Comment on above: Performed By: #### A HCV, HIVCMB #### [address] [id number] [employer] Grader: Bryan Cruz MD Comp Metabolic Profon 2019 (cont.) Normal [facility] Comment on above: Result Comment: Aver age GFR for 30-39 years old: 107 mL/min/1.73sq m Chronic Kidney Disease: <60 mL/min/1.73sq m Kidney failure: <15 mL/min/1.73sq m eGFR calculated using average adult body mass. Additional eGFR calculator available at: http://www.[employer]/multiple_crcl_2011.htm Performed By: #### A HCV, HIVCMB #### [address] [address] [employer] Grader: Bryan Cruz MD Albumin [Mass/Vol] 3.7 g/dL Normal 3.5-5.2 [facility] Comment on above: Performed By: #### A HCV, HIVCMB #### [address] [id number] [employer] Grader: Bryan Cruz MD Alkaline Phos 42 U/L Normal 35-104 [facility] Comment on above: Performed By: #### A HCV, HIVCMB #### [address] [address] [employer] Grader: Bryan Cruz MD ALT [Catalytic activity/Vol] 9 U/L Normal 5-33 [facility] Comment on above: Performed By: #### A HCV, HIVCMB #### [address] [id number] [employer] Grader: Bryan Cruz MD Anion gap [Moles/Vol] 10 mmol/L Normal 9-17 [facility] Comment on above: Performed By: #### A HCV, HIVCMB #### [address] [address] [employer] Grader: Bryan Cruz MD AST [Catalytic activity/Vol] 11 U/L Normal <32 [facility] Comment on above: Performed By: #### A HCV, HIVCMB #### [address] [address] [employer] Grader: Bryan Cruz MD Bilirubin [Mass/Vol] 0.23 mg/dL Low 0.3-1.2 [facility] Comment on above: Performed By: #### A HCV, HIVCMB #### [address] [address] [employer] P[employer] Grader: Bryan Cruz MD Calcium [Mass/Vol] 9.3 mg/dL Normal 8.6-10.4 [facility] Comment on above: Performed By: #### A HCV, HIVCMB #### [address] [address] [employer] Grader: Bryan Cruz MD Chloride [Moles/Vol] 105 mmol/L Normal 98-107 [facility] Comment on above: Performed By: #### A HCV, HIVCMB #### [address] [address] [employer] Grader: Bryan Cruz MD CO2 [Moles/Vol] 24 mmol/L Normal 20-31 [facility] Comment on above: Performed By: #### A HCV, HIVCMB #### [address] [address] [employer] Grader: Bryan Cruz MD Creatinine [Mass/Vol] 0.53 mg/dL Normal 0.50-0.90 [facility] Comment on above: Performed By: #### A HCV, HIVCMB #### [address] [address] [employer] Grader: Bryan Cruz MD GFR, Amer >60 Normal >60 [facility] Comment on above: Performed By: #### A HCV, HIVCMB #### [address] [address] [employer] Grader: Bryan Cruz MD GFR,non Amer >60 Normal >60 [facility] Comment on above: Performed By: #### A HCV, HIVCMB #### [address] [address] [employer] Grader: Bryan Cruz MD Glucose [Mass/Vol] 88 mg/dL Normal 70-99 [facility] Comment on above: Performed By: #### A HCV, HIVCMB #### [address] [address] [employer] Grader: Bryan Cruz MD Potassium [Moles/Vol] 4.6 mmol/L Normal 3.7-5.3 [facility] Comment on above: Performed By: #### A HCV, HIVCMB #### [address] [address] [employer] Grader: Bryan Cruz MD Protein [Mass/Vol] 6.4 g/dL Normal 6.4-8.3 [facility] Comment on above: Performed By: #### A HCV, HIVCMB #### [address] [address] [employer] Grader: Bryan Cruz MD Sodium [Moles/Vol] 139 mmol/L Normal 135-144 [facility] Comment on above: Performed By: #### A HCV, HIVCMB #### [address] [address] [employer] Grader: Bryan Cruz MD Urea nitrogen [Mass/Vol] 17 mg/dL Normal 6-20 [facility] Comment on above: Performed By: #### A HCV, HIVCMB #### [address] [id number] [employer] Grader: Bryan Cruz MD Albumin/Glob Ratio NOT REPORTED Normal 1.0-2.5 [facility] Comment on above: Performed By: #### A HCV, HIVCMB #### [facility] [address] [place] [address] [employer] Grader: Bryan Cruz MD BUN/CRE Ratio NOT REPORTED Normal 9-20 [facility] Comment on above: Performed By: #### A HCV, HIVCMB #### [facility] [address] [place] [address] [employer] Grader: Bryan Cruz MD Staging: NOT REPORTED Normal [facility] Comment on above: Performed By: #### A HCV, HIVCMB #### [facility] [address] [place], [place] [id number] [employer] Grader: Bryan Cruz MD Albumin [Mass/Vol] 3.7 g/dL 3.5 - 5.2 g/dL [place] Albumin/Globulin [Mass ratio] NOT REPORTED [place] ALP [Catalytic activity/Vol] 42 U/L 35 - 104 U/L [place] ALT [Catalytic activity/Vol] 9 U/L 5 - 33 U/L [place] Anion gap [Moles/Vol] 10 mmol/L 9 - 17 mmol/L [place] AST [Catalytic activity/Vol] 11 U/L <32 [place] Bilirubin Ql (U) 0.23 mg/dL Low 0.3 - 1.2 mg/dL [place] Bun/Cre Ratio NOT REPORTED [place] Calcium [Mass/Vol] 9.3 mg/dL 8.6 - 10. 4 mg/dL [place] Chloride [Moles/Vol] 105 mmol/L 98 - 10 7 mmol/L [place] CO2 [Moles/Vol] 24 mmol/L 20 - 31 mmol/L [place] Creatinine [Mass/Vol] 0.53 mg/dL 0.5 - 0.9 mg/dL [place] GFR >60 >60 mL/min [place] GFR Non- >60 >60 mL/min [place] GFR/1.73 sq M predicted among non-blacks MDRD (S/P/Bld) [Vol rate/Area] NOT RE[place]ED [place] GFR/1.73 sq M predicted among non-blacks MDRD (S/P/Bld) [Vol rate/Area] [place] Comment on above: Average GFR for 30-3 9 years old: 107 mL/min/1.73sq m Chronic Kidney Disease: <60 mL/min/1.73sq m Kidney failure: <15 mL/min/1.73sq m eGFR calculated using average adult body mass. Additional eGFR calculator available at: http://[email or web address]/multiple_[email or web address]_2012.htm Glucose [Mass/Vol] 88 mg/dL 70 - 99 mg/dL [place], [place] Interpretation and review of laboratory results Abnormal [place] Potassium [Moles/Vol] 4.6 mmol/L 3.7 - 5.3 mmol/L [place] Protein [Mass/Vol] 6.4 g/dL 6.4 - 8.3 g/dL [place] Sodium [Moles/Vol] 139 mmol/L 135 - 144 mmol/L [place] Urea nitrogen [Mass/Vol] 17 mg/dL 6 - 20 mg/dL [place] Hep C Abon 07-20-2020 Hep C Ab Reactive Abnormal NR [facility] Comment on above: Result Comment: The [...] By: #### A HCV, HIVCMB #### [address] [id number] [employer]: Bryan Cruz MD Hepatitis C Ab REACTIVE Abnormal NONREACTIVE [place] Comment on above: The hepatitis C [...] Interpretation and review of laboratory results Abnormal [place] TSH w/reflex to FT4on 2019 TSH Qn 3.88 m[IU]/L Normal 0.30-5.00 [facility] Comment on above: Performed By: #### A HCV, HIVCMB #### [id number] [place], [place] [id number] [employer]: Bryan Cruz MD TSH Qn 3.88 m[IU]/L [place] Vital Signs Date Time Vital Sign Value Performing Clinician Facility 01-13-2024 05:09-0400 Heart rate 81 /min Kevin Cason MD Work Phone: [facility] 01-13-2024 04:00-0400 Body temperature 98.29 [degF] Kevin Cason MD Work Phone: [facility] 01-13-2024 04:00-0400 Diastolic blood pressure 96 mm[Hg] Kevin Cason MD Work Phone: [facility] 01-13-2024 04:00-0400 Respiratory rate 18 /min Kevin Cason MD Work Phone: [facility] 01-13-2024 04:00-0400 SaO2% (BldA) [Mass fraction] 97 % Kevin Cason MD Work Phone: [facility] 01-13-2024 04:00-0400 Systolic blood pressure 140 mm[Hg] Kevin Cason MD Work Phone: [facility] 01-12-2024 21:36-0400 Body temperature 97.81 [degF] [facility] 01-12-2024 21:36-0400 Diastolic blood pressure 98 mm[Hg] [facility] 01-12-2024 21:36-0400 Heart rate 98 /min [facility] 01-12-2024 21:36-0400 Respiratory rate 18 /min [facility] 01-12-2024 21:36-0400 SaO2% (BldA) [Mass fraction] 97 % [facility] 01-12-2024 21:36-0400 Systolic blood pressure 134 mm[Hg] [facility] 01-12-2024 16:36-0400 Body temperature 98.71 [degF] Rahat Swade DO Work Phone: [facility] 01-12-2024 16:36-0400 Diastolic blood pressure 102 mm[Hg] Rahat Swade DO Work Phone: [facility] 01-12-2024 16:36-0400 Heart rate 106 /min Rahat Swade DO Work Phone: [facility] 01-12-2024 16:36-0400 Respiratory rate 20 /min Rahat Swade DO Work Phone: [facility] 01-12-2024 16:36-0400 SaO2% (BldA) [Mass fraction] 96 % Rahat Swade DO Work Phone: [facility] 01-12-2024 16:36-0400 Systolic blood pressure 148 mm[Hg] Rahat Swade DO Work Phone: [facility] 10-21-2023 07:30-0500 Body temperature 97.4 [degF] RUIZ Lynch Robuck Work Phone: [facility] 10-21-2023 07:30-0500 Diastolic blood pressure 67 mm[Hg] BEHAVIOR ANALYST Cris Robuck Work Phone: [facility] 10-21-2023 07:30-0500 Heart rate 81 /min BEHAVIOR ANALYST Cris Robuck Work Phone: [facility] 10-21-2023 07:30-0500 SaO2% (BldA) [Mass fraction] 99 % BEHAVIOR ANALYST Cris Robuck Work Phone: [facility] 10-21-2023 07:30-0500 Systolic blood pressure 102 mm[Hg] BEHAVIOR ANALYST Cris Robuck Work Phone: [facility] 10-20-2023 21:59-0500 Respiratory rate 16 /min BEHAVIOR ANALYST Cris Robuck Work Phone: [facility] 10-19-2023 09:00-0500 Body weight 69 kg BEHAVIOR ANALYST Cris Robuck Work Phone: [facility] 10-16-2023 08:34-0500 Body height 167.64 cm BEHAVIOR ANALYST Cris Robuck Work Phone: [facility] 10-09-2023 01:00-0500 Diastolic blood pressure 58 mm[Hg] [facility] 10-09-2023 01:00-0500 Heart rate 68 /min [facility] 10-09-2023 01:00-0500 Respiratory rate 16 /min [facility] 10-09-2023 01:00-0500 SaO2% (BldA) [Mass fraction] 93 % [facility] 10-09-2023 01:00-0500 Systolic blood pressure 102 mm[Hg] [facility] 10-08-2023 20:56-0500 Body height 167.64 cm [facility] 10-08-2023 20:56-0500 Body temperature 98.6 [degF] [facility] 10-08-2023 20:56-0500 Body weight 70 kg [facility] 09-14-2023 18:27-0500 Body height 167.64 cm BEHAVIOR ANALYST Cris Robuck Work Phone: [facility] 09-14-2023 18:27-0500 Body temperature 98.1 [degF] BEHAVIOR ANALYST Cris Robuck Work Phone: [facility] 09-14-2023 18:27-0500 Body weight 73 kg BEHAVIOR ANALYST Cris Robuck Work Phone: [facility] 09-14-2023 18:27-0500 Diastolic blood pressure 80 mm[Hg] BEHAVIOR ANALYST Cris Robuck Work Phone: [facility] 09-14-2023 18:27-0500 Heart rate 97 /min BEHAVIOR ANALYST Cris Robuck Work Phone: [facility] 09-14-2023 18:27-0500 Respiratory rate 16 /min BEHAVIOR ANALYST Cris Robuck Work Phone: [facility] 09-14-2023 18:27-0500 SaO2% (BldA) [Mass fraction] 98 % BEHAVIOR ANALYST Cris Robuck Work Phone: [facility] 09-14-2023 18:27-0500 Systolic blood pressure 128 mm[Hg] BEHAVIOR ANALYST Cris Robuck Work Phone: [facility] 07-13-2023 09:00-0400 Body weight 79.28 kg [facility] 07-13-2023 07:30-0400 Body temperature 98.4 [degF] [facility] 07-13-2023 07:30-0400 Diastolic blood pressure 72 mm[Hg] [facility] 07-13-2023 07:30-0400 Heart rate 98 /min [facility] 07-13-2023 07:30-0400 Respiratory rate 20 /min [facility] 07-13-2023 07:30-0400 SaO2% (BldA) [Mass fraction] 95 % [facility] 07-13-2023 07:30-0400 Systolic blood pressure 105 mm[Hg] [facility] 07-08-2023 14:36-0400 Body height 165.1 cm [facility] 06-08-2023 08:18-0400 Body height 165.1 cm [facility] 06-08-2023 08:18-0400 Body temperature 97.7 [degF] [facility] 06-08-2023 08:18-0400 Body weight 67.58 kg [facility] 06-08-2023 08:18-0400 Diastolic blood pressure 55 mm[Hg] [facility] 06-08-2023 08:18-0400 Heart rate 68 /min [facility] 06-08-2023 08:18-0400 Respiratory rate 18 /min [facility] 06-08-2023 08:18-0400 SaO2% (BldA) [Mass fraction] 98 % [facility] 06-08-2023 08:18-0400 Systolic blood pressure 120 mm[Hg] [facility] 04-19-2023 19:09-0400 Body height 165.1 cm BEHAVIOR ANALYST Cris Robuck Work Phone: [facility] 04-19-2023 19:09-0400 Body temperature 97.6 [degF] BEHAVIOR ANALYST Cris Robuck Work Phone: [facility] 04-19-2023 19:09-0400 Body weight 66.55 kg BEHAVIOR ANALYST Cris Robuck Work Phone: [facility] 04-19-2023 19:09-0400 Diastolic blood pressure 97 mm[Hg] BEHAVIOR ANALYST Cris Robuck Work Phone: [facility] 04-19-2023 19:09-0400 Heart rate 83 /min BEHAVIOR ANALYST Cris Robuck Work Phone: [facility] 04-19-2023 19:09-0400 Respiratory rate 18 /min BEHAVIOR ANALYST Cris Robuck Work Phone: [facility] 04-19-2023 19:09-0400 SaO2% (BldA) [Mass fraction] 100 % BEHAVIOR ANALYST Cris Robuck Work Phone: [facility] 07-09-2023 19:09-0400 Systolic blood pressure 124 mm[Hg] BEHAVIOR ANALYST Cris Robuck Work Phone: [facility] 04-18-2023 22:55-0400 Diastolic blood pressure 88 mm[Hg] BEHAVIOR ANALYST Cris Robuck Work Phone: [facility] 04-18-2023 22:55-0400 Heart rate 98 /min BEHAVIOR ANALYST Cris Robuck Work Phone: [facility] 04-18-2023 22:55-0400 Respiratory rate 16 /min BEHAVIOR ANALYST Cris Robuck Work Phone: [facility] 04-18-2023 22:55-0400 SaO2% (BldA) [Mass fraction] 98 % BEHAVIOR ANALYST Cris Robuck Work Phone: [facility] 04-18-2023 22:55-0400 Systolic blood pressure 136 mm[Hg] BEHAVIOR ANALYST Cris Robuck Work Phone: [facility] 04-18-2023 21:13-0400 Body height 165.1 cm BEHAVIOR ANALYST Cris Robuck Work Phone: [facility] 04-18-2023 21:13-0400 Body temperature 98 [degF] BEHAVIOR ANALYST Cris Robuck Work Phone: [facility] 04-18-2023 21:13-0400 Body weight 66.45 kg BEHAVIOR ANALYST Cris Robuck Work Phone: [facility] 04-16-2023 14:57-0400 Body weight 65.77 kg Caitlin Muha BEHAVIOR ANALYST.AIR [employer]ISTER [employer]ER Work Phone: [facility] 04-16-2023 14:57-0400 Diastolic blood pressure 79 mm[Hg] Caitlin Muha BEHAVIOR ANALYST.[employer] Work Phone: [facility] 04-16-2023 14:57-0400 Heart rate 108 /min Caitlin Muha BEHAVIOR ANALYST.[employer] Work Phone: [facility] 04-16-2023 14:57-0400 Systolic blood pressure 133 mm[Hg] Caitlin Cheatham BEHAVIOR ANALYST.[employer] Work Phone: [facility] 03-16-2023 08:40-0400 Body height 167.9 cm Caitlin Cheatham APRN.[employer] Work Phone: [facility] 03-16-2023 08:40-0400 Body temperature 98.1 [degF] Caitlin Cheatham BEHAVIOR ANALYST.[employer] Work Phone: [facility] 03-16-2023 08:40-0400 Body weight 69.85 kg Caitlin Cheatham BEHAVIOR ANALYST.[employer] Work Phone: [facility] 03-16-2023 08:40-0400 Diastolic blood pressure 74 mm[Hg] Caitlin Cheatham BEHAVIOR ANALYST.[employer] Work Phone: [facility] 03-16-2023 08:40-0400 Heart rate 88 /min Caitlin Cheatham APRN.[employer] Work Phone: [facility] 03-16-2023 08:40-0400 SaO2% (BldA) [Mass fraction] 98 % Caitlin Cheatham APRN.[employer] Work Phone: [facility] 03-16-2023 08:40-0400 Systolic blood pressure 120 mm[Hg] Caitlin Cheatham BEHAVIOR ANALYST.[employer] Work Phone: [facility] 02-24-2023 12:15-0400 Body height 170.18 cm BEHAVIOR ANALYST Cris Robuck Work Phone: [facility] 02-24-2023 12:15-0400 Body temperature 97.6 [degF] BEHAVIOR ANALYST Cris Robuck Work Phone: [facility] 02-24-2023 12:15-0400 Body weight 66.5 kg BEHAVIOR ANALYST Cris Robuck Work Phone: [facility] 02-24-2023 12:15-0400 Diastolic blood pressure 59 mm[Hg] BEHAVIOR ANALYST Cris Robuck Work Phone: [facility] 02-24-2023 12:15-0400 Heart rate 75 /min BEHAVIOR ANALYST Cris Robuck Work Phone: [facility] 02-24-2023 12:15-0400 Respiratory rate 20 /min BEHAVIOR ANALYST Cris Robuck Work Phone: [facility] 02-24-2023 12:15-0400 SaO2% (BldA) [Mass fraction] 100 % BEHAVIOR ANALYST Cris Robuck Work Phone: [facility] 02-24-2023 12:15-0400 Systolic blood pressure 105 mm[Hg] BEHAVIOR ANALYST Cris Robuck Work Phone: [facility] 02-03-2023 19:12-0400 Diastolic blood pressure 64 mm[Hg] BEHAVIOR ANALYST Cris Robuck Work Phone: [facility] 02-03-2023 19:12-0400 Heart rate 84 /min BEHAVIOR ANALYST Cris Robuck Work Phone: [facility] 02-03-2023 19:12-0400 Respiratory rate 17 /min BEHAVIOR ANALYST Cris Robuck Work Phone: [facility] 02-03-2023 19:12-0400 SaO2% (BldA) [Mass fraction] 98 % BEHAVIOR ANALYST Cris Robuck Work Phone: [facility] 02-03-2023 19:12-0400 Systolic blood pressure 107 mm[Hg] BEHAVIOR ANALYST Cris Robuck Work Phone: [facility] 02-03-2023 11:00-0400 Body height 165.1 cm BEHAVIOR ANALYST Cris Robuck Work Phone: [facility] 02-03-2023 11:00-0400 Body weight 66.2 kg BEHAVIOR ANALYST Cris Robuck Work Phone: [facility] 02-03-2023 10:59-0400 Body temperature 98.2 [degF] BEHAVIOR ANALYST Cris Robuck Work Phone: [facility] 01-26-2023 21:53-0400 Body height 167.64 cm DO Zain Tupa Work Phone: [facility] 01-26-2023 21:53-0400 Body temperature 97.7 [degF] DO Zain Tupa Work Phone: [facility] 01-26-2023 21:53-0400 Body weight 67.4 kg DO Zain Tupa Work Phone: [facility] 01-26-2023 21:53-0400 Diastolic blood pressure 63 mm[Hg] DO Zain Tupa Work Phone: [facility] 01-26-2023 21:53-0400 Heart rate 87 /min DO Zain Tupa Work Phone: [facility] 01-26-2023 21:53-0400 Respiratory rate 20 /min DO Zain Tupa Work Phone: [facility] 01-26-2023 21:53-0400 SaO2% (BldA) [Mass fraction] 97 % DO Zain Tupa Work Phone: [facility] 01-26-2023 21:53-0400 Systolic blood pressure 116 mm[Hg] DO Zain Tupa Work Phone: [facility] 01-16-2023 07:21-0400 Body temperature 97.4 [degF] DO Zain Tupa Work Phone: [facility] 01-16-2023 07:21-0400 Diastolic blood pressure 61 mm[Hg] DO Zain Tupa Work Phone: [facility] 01-16-2023 07:21-0400 Heart rate 79 /min DO Zain Tupa Work Phone: [facility] 01-16-2023 07:21-0400 Respiratory rate 16 /min DO Zain Tupa Work Phone: [facility] 01-16-2023 07:21-0400 SaO2% (BldA) [Mass fraction] 98 % DO Zain Tupa Work Phone: [facility] 01-16-2023 07:21-0400 Systolic blood pressure 105 mm[Hg] DO Zain Tupa Work Phone: [facility] 01-13-2023 15:02-0400 Body height 165.1 cm DO Zain Tupa Work Phone: [facility] 01-12-2023 15:41-0400 Body weight 60.9 kg DO Zain Tupa Work Phone: [facility] 01-12-2023 11:28-0400 Diastolic blood pressure 72 mm[Hg] DO Zain Tupa Work Phone: [facility] 01-12-2023 11:28-0400 Heart rate 106 /min DO Zain Tupa Work Phone: [facility] 01-12-2023 11:28-0400 Respiratory rate 18 /min DO Zain Tupa Work Phone: [facility] 01-12-2023 11:28-0400 SaO2% (BldA) [Mass fraction] 98 % DO Zain Tupa Work Phone: [facility] 01-12-2023 11:28-0400 Systolic blood pressure 119 mm[Hg] DO Zain Tupa Work Phone: [facility] 01-12-2023 07:59-0400 Body height 165.1 cm DO Zain Tupa Work Phone: [facility] 01-12-2023 07:59-0400 Body weight 60.9 kg DO Zain Tupa Work Phone: [facility] 01-12-2023 07:58-0400 Body temperature 97.3 [degF] DO Zain Tupa Work Phone: [facility] 11-20-2022 18:18-0500 Diastolic blood pressure 112 mm[Hg] DO Zain Tupa Work Phone: [facility] 11-20-2022 18:18-0500 Heart rate 125 /min DO Zain Tupa Work Phone: [facility] 11-20-2022 18:18-0500 Respiratory rate 17 /min DO Zain Tupa Work Phone: [facility] 11-20-2022 18:18-0500 SaO2% (BldA) [Mass fraction] 96 % DO Zain Tupa Work Phone: [facility] 11-20-2022 18:18-0500 Systolic blood pressure 160 mm[Hg] DO Zain Tupa Work Phone: [facility] 11-20-2022 16:10-0500 Body height 167.64 cm DO Zain Tupa Work Phone: [facility] 11-20-2022 16:10-0500 Body temperature 98.5 [degF] DO Zain Tupa Work Phone: [facility] 11-20-2022 16:10-0500 Body weight 69 kg DO Zain Tupa Work Phone: [facility] 11-20-2022 02:58-0500 Body height 167.64 cm DO Zain Tupa Work Phone: [facility] 11-20-2022 02:58-0500 Body temperature 98.3 [degF] DO Zain Tupa Work Phone: [facility] 11-20-2022 02:58-0500 Body weight 69.5 kg DO Zain Tupa Work Phone: [facility] 11-20-2022 02:58-0500 Diastolic blood pressure 96 mm[Hg] DO Zain Tupa Work Phone: [facility] 11-20-2022 02:58-0500 Heart rate 96 /min DO Zain Tupa Work Phone: [facility] 11-20-2022 02:58-0500 Respiratory rate 18 /min DO Zain Danielpa Work Phone: [facility] 11-20-2022 02:58-0500 SaO2% (BldA) [Mass fraction] 98 % DO Zain Reyes Work Phone: [facility] 11-20-2022 02:58-0500 Systolic blood pressure 169 mm[Hg] DO Zain Reyes Work Phone: [facility] 11-10-2022 01:55-0500 Diastolic blood pressure 80 mm[Hg] Christian Chucky [facility] 11-10-2022 01:55-0500 Heart rate 71 /min Christian Chucky [facility] 11-10-2022 01:55-0500 Mean blood pressure 92 mm[Hg] Christian Chucky [facility] 11-10-2022 01:55-0500 Respiratory rate 14 /min Christian Chucky [facility] 11-10-2022 01:55-0500 SaO2% (BldA) [Mass fraction] 96 % Christian Chucky [facility] 11-10-2022 01:55-0500 Systolic blood pressure 116 mm[Hg] Christian Chucky [facility] 11-10-2022 01:08-0500 Heart rate 72 /min Christian Chucky [facility] 11-10-2022 01:08-0500 SaO2% (BldA) [Mass fraction] 94 % Christian Chucky [facility] 11-09-2022 21:52-0500 Diastolic blood pressure 95 mm[Hg] Christian Locke [facility] 11-09-2022 21:52-0500 Heart rate 96 /min Christian Locke [facility] 11-09-2022 21:52-0500 Respiratory rate 18 /min Christian Locke [facility] 11-09-2022 21:52-0500 SaO2% (BldA) [Mass fraction] 99 % Christian Locke [facility] 11-09-2022 21:52-0500 Systolic blood pressure 122 mm[Hg] Christian Locke [facility] 11-09-2022 20:52-0500 Body temperature 98.78 [degF] Christian Locke [facility] 11-09-2022 20:52-0500 Diastolic blood pressure 87 mm[Hg] Christian Locke [facility] 11-09-2022 20:52-0500 Respiratory rate 18 /min Christian Locke [facility] 11-09-2022 20:52-0500 Systolic blood pressure 145 mm[Hg] Christian Locke [facility] 11-06-2022 14:38-0500 Blood Pressure Location Cris ROBUCK [facility] 11-06-2022 14:38-0500 Diastolic blood pressure 88 mm[Hg] Cris ROBUCK [facility] 11-06-2022 14:38-0500 Heart rate 96 /min Cris ROBUCK [facility] 11-06-2022 14:38-0500 SaO2% (BldA) [Mass fraction] 96 % Cris ROBUCK [facility] 11-06-2022 14:38-0500 Systolic blood pressure 132 mm[Hg] Cris ROBUCK [facility] 10-10-2022 12:46-0500 Blood Pressure Location Cris ROBUCK [facility] 10-10-2022 12:46-0500 Body temperature 98.06 [degF] Cris ROBUCK [facility] 10-10-2022 12:46-0500 Diastolic blood pressure 78 mm[Hg] Cris ROBUCK [facility] 10-10-2022 12:46-0500 Heart rate 89 /min Cris ROBUCK [facility] 10-10-2022 12:46-0500 SaO2% (BldA) [Mass fraction] 98 % Cris ROBUCK [facility] 10-10-2022 12:46-0500 Systolic blood pressure 130 mm[Hg] Cris ROBUCK [facility] 10-02-2022 14:08-0500 Blood Pressure Location NANYC SIDELL [facility] 10-02-2022 14:08-0500 Body temperature 98.24 [degF] NANCY SIDELL [facility] 10-02-2022 14:08-0500 Diastolic blood pressure 78 mm[Hg] NANCY SIDELL [facility] 10-02-2022 14:08-0500 Heart rate 93 /min NANCY SIDELL [facility] 10-02-2022 14:08-0500 SaO2% (BldA) [Mass fraction] 98 % NANCY SIDELL [facility] 10-02-2022 14:08-0500 Systolic blood pressure 136 mm[Hg] NANCY SIDELL [facility] 08-08-2022 23:00-0400 Body height 167.64 cm DO Zain Tupa Work Phone: [facility] 08-08-2022 23:00-0400 Body temperature 98.1 [degF] DO Zain Tupa Work Phone: [facility] 08-08-2022 23:00-0400 Body weight 68.55 kg DO Zain Tupa Work Phone: [facility] 08-08-2022 23:00-0400 Diastolic blood pressure 71 mm[Hg] DO Zain Tupa Work Phone: [facility] 08-08-2022 23:00-0400 Heart rate 87 /min DO Zain Tupa Work Phone: [facility] 08-08-2022 23:00-0400 Respiratory rate 20 /min DO Zain Tupa Work Phone: [facility] 08-08-2022 23:00-0400 SaO2% (BldA) [Mass fraction] 95 % DO Zain Tupa Work Phone: [facility] 08-08-2022 23:00-0400 Systolic blood pressure 118 mm[Hg] DO Zain Tupa Work Phone: [facility] 04-25-2022 00:00-0400 Blood Pressure Location Luis Armando Franz [facility] 04-25-2022 00:00-0400 Diastolic blood pressure 58 mm[Hg] Luis Armando Franz [facility] 04-25-2022 00:00-0400 Heart rate 82 /min Luis Armando Gastelume [facility] 04-25-2022 00:00-0400 Mean blood pressure 71 mm[Hg] Luis Armando Osei [facility] 04-25-2022 00:00-0400 SaO2% (BldA) [Mass fraction] 98 % Luis Armando Osei [facility] 04-25-2022 00:00-0400 Systolic blood pressure 97 mm[Hg] Luis Armando Osei [facility] 04-24-2022 18:53-0400 Diastolic blood pressure 87 mm[Hg] Luis Armando Osei [facility] 04-24-2022 18:53-0400 Heart rate 99 /min Luis Armando Gastelume [facility] 04-24-2022 18:53-0400 Mean blood pressure 102 mm[Hg] Luis Armando Osei [facility] 04-24-2022 18:53-0400 Respiratory rate 18 /min Luis Armando Osei [facility] 04-24-2022 18:53-0400 SaO2% (BldA) [Mass fraction] 96 % Luis Armando Osei [facility] 04-24-2022 18:53-0400 Systolic blood pressure 132 mm[Hg] Luis Armando Osei [facility] 04-24-2022 13:05-0400 Body temperature 98.78 [degF] Luis Armando Osei [facility] 04-24-2022 13:05-0400 Diastolic blood pressure 97 mm[Hg] Luis Armando Osei [facility] 04-24-2022 13:05-0400 Heart rate 118 /min Luis Armando Osei [facility] 04-24-2022 13:05-0400 SaO2% (BldA) [Mass fraction] 96 % Luis Armando Franz [facility] 04-24-2022 13:05-0400 Systolic blood pressure 163 mm[Hg] Luis Armando Franz [facility] 07-31-2020 07:48-0400 Body Temperature 98.01 [degF] [facility] [employer] , [place] 07-31-2020 07:48-0400 BP Diastolic 67 mm[Hg] [facility] , [place] 07-31-2020 07:48-0400 BP Systolic 108 mm[Hg] [place], [place] 07-31-2020 07:48-0400 Pulse (Heart Rate) 82 /min [facility], [place] 07-31-2020 07:48-0400 Respiratory Rate 14 /min [facility] [employer] [facility], [place] 07-29-2020 08:04-0400 Pulse Oximetry 100 % [facility] [place] 07-18-2020 02:42-0400 BMI (Body Mass Index) 24.96 kg/m2 [place], [place] 07-18-2020 02:42-0400 Body weight 68.04 kg [place], [place] 07-18-2020 02:42-0400 Height 165.1 cm [place] Encounters Encounter Date Encounter Type Care Provider Facility Start: 01-13-2024 End: 01-13-2024 Emergency department patient visit [facility] Start: 01-13-2024 End: 01-13-2024 Emergency department patient visit Kevin Cason MD Work Phone: [facility] Comment on above: Anxiety state (Prima ry Dx) Start: 01-13-2024 End: 01-13-2024 Emergency department patient visit [facility] Start: 01-12-2024 End: 01-12-2024 Emergency department patient visit [facility] Start: 01-12-2024 End: 01-12-2024 Emergency department patient visit RAHAT RAI [facility] Start: 01-12-2024 End: 01-12-2024 Emergency department patient visit Rahat Apoorva jose DO Work Phone: [facility] Comment on above: Anxiety (Primary Dx) Start: 12-21-2023 ambulatory Crisansley PENA Facility :[facility] Start: 12-14-2023 End: 12-14-2023 [facility] Chuck Galindo MD Work Phone: [facility] [place] Comment on above: Attention deficit di sorder, unspecified hyperactivity presence (Primary Dx); Anxiety Start: 12-09-2023 End: 12-09-2023 Emergency department patient visit Cris Pena Facility:[facility] Start: 12-02-2023 Telephone encounter Caitlin Cheatham APRN.CNP Work Phone: [facility] [place] Comment on above: Patient Update (Reha b discharge, Medication Update); Orders Medication Request Start: 12-01-2023 End: 12-01-2023 ambulatory AKBRA KOCH Facility:[facility] Start: 12-01-2023 Telephone encounter Akbar bassett MD Work Phone: Pain Management Comment on above: Appointment ( [phone]) Refill Request Start: 12-01-2023 End: 12-01-2023 ambulatory Akbar Koch MD Work Phone: Pain Management Comment on above: Chronic midline low back pain without sciatica (Primary Dx); Myofascial pain syndrome Start: 12-01-2023 End: 12-01-2023 Telemedicine consultation with patient Akbar Koch MD Work Phone: [facility] Start: 11-24-2023 End: 11-25-2023 ambulatory Cris E ROBRONALDO Facility:[facility] Start: 11-21-2023 ambulatory Claudio Castaneda acility:[facility] Start: 10-27-2023 ambulatory Cris E MAGALIE Facility :[facility] Start: 10-23-2023 End: 10-28-2023 ambulatory Crisansley PENA Facility::[id number] Start: 10-09-2023 End: 10-21-2023 Evaluation and management of inpatient Cris Pena Facility:[facility] Start: 10-09-2023 End: 10-21-2023 Evaluation and management of inpatient [facility] [facility] Work Phone: Start: 10-02-2023 End: 10-02-2023 Emergency department patient visit Zain Reyes Facility:[facility] Start: 10-02-2023 End: 10-02-2023 Emergency department patient visit [facility] Work Phone: Start: 09-14-2023 End: 09-15-2023 Emergency department patient visit Zain Reyes Facility:[facility] Start: 09-14-2023 End: 09-14-2023 Emergency department patient visit BEHAVIOR ANALYST Cris Pena Work Phone: [facility] Work Phone: Start: 09-10-2023 End: 09-10-2023 Emergency department patient visit Derrell Orantes Facility:[facility] Start: 09-09-2023 End: 09-09-2023 Emergency department patient visit Zain Reyes Facility:[facility] Start: 09-09-2023 End: 09-09-2023 Emergency department patient visit [facility] Work Phone: Start: 08-27-2023 ambulatory Akbar Koch MD Work Phone: Spine Medicine Comment on above: Refill Request; Refi ll Request Start: 08-27-2023 E-mail encounter fro m caregiver Akbar Koch MD Work Phone: [facility] Start: 08-27-2023 Telephone encounter Akbar bassett MD Work Phone: Spine Medicine Comment on above: Appointment Start: 08-19-2023 ambulatory Cris PENA Facility :[facility] Start: 08-15-2023 End: 08-15-2023 Emergency department patient visit Christian Locke Facility:[facility] Start: 08-14-2023 End: 08-14-2023 Emergency department patient visit Christian Locke Facility:[facility] Start: 08-13-2023 End: 08-13-2023 Emergency department patient visit Derrell Orantes Facility:[facility] Start: 08-07-2023 End: 08-07-2023 Emergency department patient visit DO Green Paulina Supriyaguanaco Facility:[facility] Start: 08-04-2023 ambulatory Cris PENA Facility :[facility] Start: 07-17-2023 Refill Akbar Koch MD Work Phone: Pain Management Comment on above: Refill Request Start: 07-07-2023 Telephone encounter Lara Salinas RN [facility] Start: 07-07-2023 End: 07-08-2023 ambulatory Jacqueline Marquez Facility:[facility] Start: 07-03-2023 End: 07-13-2023 Evaluation and management of inpatient Bobo Cornelius Facility:[facility] Start: 07-02-2023 End: 07-13-2023 Evaluation and management of inpatient [facility] [place] [address] Work Phone: Start: 07-02-2023 Registered Recurring RUIZ Pena Work Phone: [facility] Start: 07-01-2023 End: 07-02-2023 ambulatory Zahraa Connors Facility:[facility] Start: 06-17-2023 Telephone encounter Akbar bassett MD Work Phone: Pain Management Comment on above: Medication Problem Start: 06-09-2023 Refill Chuck Galindo MD Work Phone: [facility] [place] Comment on above: Refill Request Start: 06-08-2023 End: 06-08-2023 Emergency department patient visit NON STAFF Facility:[facility] Start: 06-08-2023 End: 06-08-2023 Emergency department patient visit [facility] Work Phone: Start: 06-06-2023 End: 06-06-2023 Emergency department patient visit GHASSAN GONZALES [facility] Start: 05-22-2023 Refill Caitlin Cheatham BEHAVIOR ANALYST.AIR TWISTER WINDER Work Phone: [facility] [place] Comment on above: Refill Request Start: 05-14-2023 Telephone encounter Rosa ErnieCrusher And Binder OperatorKeerthi russo REESE [facility] [place] Comment on above: Patient Update Start: 05-14-2023 End: 05-14-2023 ambulatory CAITLIN MUHA Facility:[facility] Start: 04-24-2023 Telephone encounter Caitlin Franksberna BEHAVIOR ANALYST.AIR TWISTER WINDER Work Phone: [facility] [place] Comment on above: Medication Request Start: 04-22-2023 Telephone encounter Fernanda ENCARNACION Work Phone: Psychology Comment on above: BH consult Start: 04-19-2023 End: 04-19-2023 Emergency department patient visit Eriberto Sheppard Facility:[facility] Start: 04-19-2023 End: 04-19-2023 Emergency department patient visit RUIZ Pena Work Phone: [facility] Work Phone: Start: 04-18-2023 End: 04-19-2023 Emergency department patient visit NON STAFF Facility:[facility] Start: 04-18-2023 End: 04-18-2023 Emergency department patient visit RUIZ Pena Work Phone: [facility] Work Phone: Start: 04-16-2023 End: 04-16-2023 Nurse Triage Verónica Martínez RN NURSE BOOM CAT OPERATOR Comment on above: Refill Request Thank you Attention deficit hy peractivity disorder (ADHD), unspecified ADHD type (Primary Dx); Paranoid schizophrenia (HCC); Bipolar depression (HCC); History of heroin abuse (HCC) Start: 04-13-2023 End: 04-13-2023 ambulatory Chuck Galindo MD Work Phone: Internal Medicine [place] Comment on above: Anxiety (Primary Dx) Start: 04-13-2023 End: 04-13-2023 Telemedicine consultation with patient Chuck Galindo MD Work Phone: [facility] Start: 04-02-2023 End: 04-03-2023 ambulatory NANCY RODRIGUEZ Facility: [facility] Start: 03-16-2023 End: 03-16-2023 ambulatory CAITLIN CHEATHAM Facility:[facility] Start: 03-16-2023 End: 03-16-2023 Patient encounter procedure Caitlin Cheatham BEHAVIOR ANALYST.AIR TWISTER WINDER Work Phone: [facility] Comment on above: Wellness examination (Primary Dx); Screening for diabetes mellitus; Screening for lipid disorders; Screening for cervical cancer; History of abnormal cervical Pap smear; History of heroin abuse (HCC); Attention deficit hyperactivity disorder (ADHD), unspecified ADHD type; Bipolar depression (HCC); Paranoid schizophrenia (HCC); Chronic midline low back pain without sciatica Start: 03-16-2023 End: 03-16-2023 Patient encounter status Caitlin Cheatham BEHAVIOR ANALYST.AIR TWISTER WINDER Work Phone: [facility] Start: 03-08-2023 End: 03-08-2023 Emergency department patient visit Heather Toma Nicolas Facility:[facility] Start: 02-24-2023 End: 02-24-2023 Emergency department patient visit Crisansley Pena Facility:[facility] Start: 02-24-2023 End: 02-24-2023 Emergency department patient visit BEHAVIOR ANALYST Cris Pena Work Phone: [facility] Work Phone: Start: 02-05-2023 ambulatory Cris E ROBUCK Facility :[facility] Start: 02-03-2023 End: 02-03-2023 Emergency department patient visit Cris Robuck Facility:[facility] Start: 02-03-2023 End: 02-03-2023 Emergency department patient visit BEHAVIOR ANALYST Cris Robuck Work Phone: [facility] Work Phone: Start: 01-26-2023 End: 01-27-2023 Emergency department patient visit Cris Robuck Facility:[facility] Start: 01-26-2023 End: 01-26-2023 Emergency department patient visit DO Zain Reyes Work Phone: [facility] Work Phone: Start: 01-19-2023 End: 02-06-2023 ambulatory Cris WILLRONALDO Facility:CD:[id number] Start: 01-12-2023 End: 01-16-2023 Evaluation and management of inpatient DO Zain Reyes Work Phone: [facility] [place] [address] Work Phone: Start: 01-12-2023 End: 01-12-2023 Emergency department patient visit DO Norma Dietz Facility:[facility] Start: 01-12-2023 End: 01-12-[address] DOCTOR PATEL Facility:[facility] Start: 01-08-2023 End: 01-08-2023 Emergency department patient visit Derrell Orantes Facility:[facility] Start: 01-08-2023 End: 01-08-[address] DOCTOR PATEL Facility:[facility] Start: 01-07-2023 ambulatory Cris PENA Facility :[facility] Start: 12-15-2022 End: 12-16-[address] DOCTOR PATEL Facility: Start: 11-20-2022 End: 11-20-2022 Emergency department patient visit DO Zain Reyes Work Phone: [facility] Work Phone: Start: 11-20-2022 End: 11-20-2022 Emergency department patient visit DO Zain Reyes Work Phone: [facility] Work Phone: Start: 11-09-2022 End: 11-10-2022 Emergency department patient visit Christian Chucky [facility] Start: 11-06-2022 End: 11-06-2022 Patient encounter procedure Cris PENA [facility] Start: 10-10-2022 End: 10-10-2022 Patient encounter procedure Cris PENA [facility] Start: 10-02-2022 End: 10-02-2022 Patient encounter procedure NANCY RODRIGUEZ [facility] Start: 08-08-2022 End: 08-09-2022 Emergency department patient visit DO Zain Reyes Work Phone: [facility] Start: 06-22-2022 End: 06-23-[address] STACI HENDRIX Facility:[facility] Start: 06-16-2022 End: 06-17-[address] STACI HENDRIX Facility:[facility] Start: 04-24-2022 End: 04-25-2022 Emergency department patient visit Luis Armando Franz [facility] Start: 04-11-2022 End: 04-12-[address] SULTANA DOOLEY Facility:[facility] Start: 02-05-2021 End: 02-11-2021 Evaluation and management of inpatient BRET MENDEZApoorvaNAVID [facility] Start: 07-27-2020 Telephone encounter Adam chaudhary Work Phone: [facility] Manager Technical Sales [place] Comment on above: Results (abnormal pa p needs colposcopy appt) Start: 07-26-2020 Telephone encounter Jaylyn richards Work Phone: [facility] Manager Technical Sales [place] Comment on above: Other (scheduled col poscopy appointment ) Start: 07-18-2020 Patient encounter procedure [facility] [place], [place] Start: 07-18-2020 End: 07-31-2020 Evaluation and management of inpatient JOSE MOSES [facility] Start: 07-17-2020 Patient encounter procedure [facility] Admitting Procedures Date Procedure Procedure Detail Performing Clinician Start: 01-12-2024 COVID-19, RAPID Rahat Apoorva Rai DO Work Phone: Start: 01-12-2024 Ecg routine ecg w/le ast 12 lds w/i&r Rahatestelle Rai DO Work Phone: Start: 10-16-2023 Aerobic microbial culture BEHAVIOR ANALYSTApoorva Pena Work Phone: Start: 10-16-2023 Investigation of transfusion reaction BEHAVIOR ANALYSTApoorva Pena Work Phone: Start: 10-15-2023 Plain chest X-ray RUIZ Pena Work Phone: Start: 10-08-2023 Urine culture BEHAVIOR ANALYSTApoorva Pena Work Phone: Start: 06-08-2023 Urine culture Start: 02-03-2023 Urine culture BEHAVIOR ANALYSTApoorva Pena Work Phone: Start: 01-12-2023 Urine culture DO Desmond Reyes Work Phone: Start: 07-31-2020 DISCHARGE PATIENT JOSE JORGE Start: 07-24-2020 Iadna human papillom avirus types 16 & 18 only JOSE MOSES Start: 07-24-2020 Cytp cervical/vagina l req interp physician JOSE MOSES Start: 07-24-2020 Cytp cervical/vagina l req interp physician Jaylyn Chan Work Phone: Start: 07-24-2020 Iadna jose ramon specie s direct probe tq JOSE MOSES Start: 07-24-2020 Cytopath fl nongyn, sm/fltr JOSECHAPITO MOSES Start: 07-24-2020 Microscopic observat ion [Identifier] in Cervix by Cyto stain Rahat Rai DO Work Phone: Start: 07-24-2020 Iadna jose ramon specie s direct probe tq Jaylyn Chan Work Phone: Start: 07-23-2020 NURSING COMMUNICATION E STELLA MOSES Start: 07-23-2020 Us transvaginal JOSE RO BINSON Start: 07-23-2020 Urine test visual color cmprsn meths JOSE MOSES Start: 07-23-2020 Blood count complete auto&auto difrntl wbc JOSE MOSES Start: 07-23-2020 Us pelvic nonobstetr ic real-time image complete Verónica Ryann London Work Phone: Start: 07-23-2020 Us transvaginal Verónica Garzon Hemanth Peterson Work Phone: Start: 07-23-2020 Urine test visual color cmprsn meths Angelica Newman Work Phone: Start: 07-23-2020 Blood count complete auto&auto difrntl wbc Dylan Reyes Work Phone: Start: 07-23-2020 IP CONSULT TO COMPUTER OPERATIONS ANALYST ER CHAPITO MOSES Start: 07-22-2020 IP CONSULT TO EDGER TAILER AL MEDICINE JOSE MOSES Start: 07-21-2020 Drug assay valproic dipropylacetic acid total JOSE MOSES Start: 07-21-2020 Drug assay valproic dipropylacetic acid total Janina Edmondson Work Phone: Start: 07-21-2020 T. PALLIDUM AB Janina Russo H sadie Work Phone: Start: 07-20-2020 C.TRACHOMATIS N.GONO RRHOEAE DNA, URINE JOSE MOSES Start: 07-20-2020 Ecg routine ecg w/le ast 12 lds w/i&r JOSE MOSES Start: 07-20-2020 EKG REPORT JOSECHAPITO BRITT SON Start: 07-20-2020 Iadna chlamydia trac homatis amplified probe tq Janina Edmondson Work Phone: Start: 07-20-2020 Ecg routine ecg w/le ast 12 lds i&r only Janina Edmondson Work Phone: Start: 07-20-2020 EKG REPORT Hpf Scanni ng Start: 07-20-2020 Blood count complete auto&auto difrntl wbc JOSE MOSES Start: 07-20-2020 Assay of thyroid stimulating hormone tsh Bret Parinnavid Work Phone: Start: 07-20-2020 Blood count complete auto&auto difrntl wbc Bret Parinja Work Phone: Start: 07-20-2020 Comprehensive metabo lic panel Bret Mendezapoorvanavid Work Phone: Start: 07-20-2020 Antibody hiv-1&hiv-2 single result JOSE MOSES Start: 07-20-2020 Antibody hiv-1&hiv-2 single result Con S Teagan Work Phone: Start: 07-20-2020 Hepatitis c antibody Ra nvir S Teagan Work Phone: Start: 07-19-2020 IP CONSULT TO EDGER TAILER AL MEDICINE JOSE MOSES Start: 07-18-2020 IP CONSULT TO HISTOR Y AND PHYSICAL JOSE MOSES Start: 07-18-2020 MISCELLANEOUS NURSIN G CARE ORDER (SPECIFY) JOSE MOSES Start: 07-18-2020 PATIENT MONITORING C LOSE Q 15 MINUTES JOSE MOSES Start: 07-18-2020 VITAL SIGNS JOSE WALLACE Start: 07-18-2020 DIET GENERAL JOSE WALLACE Start: 07-18-2020 FULL CODE JOSE WALLACE Start: 07-18-2020 PATIENT STATUS (DIRECT) JOSE MOSES Start: 10-12-2011 teeth extraction Luis Armando catherine denies Luis Armando Franz SARS Antigen (LFIA) DO Kavitha Reyes Work Phone: Plan of Treatment Date Care Activity Detail Author Start: 08-23-2033 DTaP/Tdap/Td vaccine (5 - Td or Tdap) DTaP/Tdap/Td vaccine (5 - Td or Tdap) [facility] Start: 08-23-2033 Urine microalbumin profile DTaP,Tdap,Td Vaccine (5 - Td or Tdap) [facility] Start: 07-22-2028 DTaP/Tdap/Td vaccine (3 - Td) DTaP/Tdap/Td vaccine (3 - Td) [facility] [place], [place] Start: 07-22-2028 Urine microalbumin profile [facility] Start: 07-24-2025 Screening for malign ant neoplasm of cervix [facility] Start: 12-13-2024 Annual PCP Team Conventional Underwriter benny Disease Visit Annual PCP Team Chronic Disease Visit [facility] Start: 05-12-2024 Influenza vaccination Flu vacc ine (Season Ended) [facility] Start: 04-16-2024 ANNUAL PCP TEAM CARD SERVICES SPECIALIST BENNY DISEASE VISIT ANNUAL PCP TEAM CHRONIC DISEASE VISIT [facility] Start: 04-13-2024 ANNUAL PCP TEAM CARD SERVICES SPECIALIST BENNY DISEASE VISIT ANNUAL PCP TEAM CHRONIC DISEASE VISIT [facility] Start: 03-16-2024 ANNUAL PCP TEAM CARD SERVICES SPECIALIST BENNY DISEASE VISIT ANNUAL PCP TEAM CHRONIC DISEASE VISIT [facility] Start: 10-21-2023 [facility] Start: 10-12-2023 Depression Assessment Depression Ass essment [facility] Start: 10-09-2023 [facility] Start: 10-09-[address] [facility] Start: 10-09-2023 [facility] Start: 10-08-2023 Bacteria identified in Urine by Culture [facility] Start: 09-14-2023 [facility] Start: 07-24-2023 Screening for malign ant neoplasm of cervix [facility] Start: 07-13-2023 [facility] Start: 07-02-[address] [facility] Start: 06-12-2023 Influenza vaccination [facility] Start: 06-08-2023 Bacteria identified in Urine by Culture Urine Culture [facility] Start: 03-16-2023 End: 05-16-2023 Comprehensive metabolic 2000 panel - Serum or Plasma COMP METABOLIC PANEL Lab Routine Screening for diabetes mellitus Expected: 03/16/2023, Expires: 05/16/2023 [facility] Work Phone: Comment on above: Expected: 03/16/2023 , Expires: 05/16/2023 Start: 03-16-2023 End: 05-16-2023 Hemoglobin A1c in Blood HGB A1C Lab Routine Screening for diabetes mellitus Expected: 03/16/2023, Expires: 05/16/2023 [facility] Work Phone: Comment on above: Expected: 03/16/2023 , Expires: 05/16/2023 Start: 03-16-2023 End: 05-16-2023 Lipid 1996 panel - Serum or Plasma LIPID PANEL BASIC Lab Routine Screening for lipid disorders Expected: 03/16/2023, Expires: 05/16/2023 [facility] Work Phone: Comment on above: Expected: 03/16/2023 , Expires: 05/16/2023 Start: 01-16-2023 [facility] Start: 01-12-2023 Bacteria identified in Urine by Culture Urine Culture [facility] Start: 01-12-[address] [facility] Start: 11-20-2022 [facility] Start: 08-08-2022 Plain chest X-ray XR chest 2V* [facility] Start: 08-08-2022 XR Chest 2 Views [facility] Start: 06-12-2020 Influenza vaccination Flu vaccine (# 1) [email or web address] [place] Start: 07-15-2019 HEPATITIS A (2 of 2 - Risk 2-dose series) HEPATITIS A (2 of 2 - Risk 2-dose series) [facility] Start: 07-15-2019 Hepatitis A Vaccine (2 of 2 - Risk 2-dose series) Hepatitis A Vaccine (2 of 2 - Risk 2-dose series) [facility] Start: 2015 HPV TESTING HPV TESTING [facility] Start: 2015 Screening for malign ant neoplasm of cervix HPV Testing [facility] Start: 12-26-2014 PNEUMOCOCCAL (2 - PCV) PNEUMOCOCCAL (2 - PCV) [facility] Start: 12-26-2014 Pneumococcal 0-64 ye ars Vaccine (2 of 2 - PCV) Pneumococcal 0-64 years Vaccine (2 of 2 - PCV) [facility] Start: 12-26-2014 Pneumococcal vaccination [facility] Start: 2006 PAP TESTING PAP TESTING [facility] Start: 2006 Screening for malign ant neoplasm of cervix Pap Testing [facility] Start: 2003 SPIROMETRY SPIROMETRY [facility] Start: 07-07-1997 HEPATITIS B (2 of 3 - 3-dose series) HEPATITIS B (2 of 3 - 3-dose series) [facility] Start: 07-07-1997 Hepatitis B vaccine (2 of 3 - 3-dose primary series) Hepatitis B vaccine (2 of 3 - 3-dose primary series) [email or web address] Start: 07-07-1997 Hepatitis B Vaccine (2 of 3 - 3-dose series) Hepatitis B Vaccine (2 of 3 - 3-dose series) [facility] Start: 1997 Depression Monitoring Depression Mon itoring [facility] [employer] Start: 1991 Pneumococcal 0-64 ye ars Vaccine (1 of 1 - PPSV23) Pneumococcal 0-64 years Vaccine (1 of 1 - PPSV23) [facility] [employer] [place] Start: 1986 Varicella vaccine (1 of 2 - 2-dose childhood series) Varicella vaccine (1 of 2 - 2-dose childhood series) [facility] Start: 1985 COVID-19 VACCINE (#1) COVID-19 VACCI NE (#1) [facility] End: 01-12-2024 Acetaminophen (TYLENOL) level Acetaminophen (TYLENOL) level Lab STAT One Time for 1 Occurrences starting 01/12/2024 until 01/12/2024 [facility] [employer] Comment on above: One Time for 1 Occur rences starting 01/12/2024 until 01/12/2024 Albumin/Globulin ratio [facility] Anion gap measurement [facility] Basophils [#/volume] in Blood by Automated count [facility] Basophils/100 leukoc ytes in Blood by Automated count [facility] Calculated LDL cholesterol level [facility] Calculated LDL cholesterol level [facility] End: 01-12-2024 CBC W Auto Differential panel - Blood CBC with Auto Differential Lab STAT One Time for 1 Occurrences starting 01/12/2024 until 01/12/2024 [facility] Comment on above: One Time for 1 Occur rences starting 01/12/2024 until 01/12/2024 Cholesterol.total/Ch oles terol in HDL [Mass Ratio] in Serum or Plasma [facility] Cholesterol.total/Ch oles terol in HDL [Mass Ratio] in Serum or Plasma [facility] End: 01-12-2024 Comprehensive Metabolic Panel w/ Reflex to MG Comprehensive Metabolic Panel w/ Reflex to MG Lab STAT One Time for 1 Occurrences starting 01/12/2024 until 01/12/2024 [facility] [employer] Comment on above: One Time for 1 Occur rences starting 01/12/2024 until 01/12/2024 End: 01-12-2024 DRUG SCREEN MULTI URINE DRUG SCREEN MULTI URINE Lab STAT One Time for 1 Occurrences starting 01/12/2024 until 01/12/2024 [employer] Comment on above: One Time for 1 Occur rences starting 01/12/2024 until 01/12/2024 EKG 12 lead EKG 12 lead ECG STAT 01/12/2024 5:56 PM EDT [facility] [employer] Eosinophils [#/volum e] in Blood [place] [facility] [place] Automated count [facility] Patient Education [facility] Work Phone: Patient referral [facility] Work Phone: Platelet mean volume [Entitic volume] in Blood by Automated count [facility] Platelets [#/volume] in Blood [facility] End: 01-12-2024 , urine , urine Lab STAT One Time for 1 Occurrences starting 01/12/2024 until 01/12/2024 [facility] Comment on above: One Time for 1 Occur rences starting 01/12/2024 until 01/12/2024 End: 01-12-2024 Salicylate Salicylate Lab STAT One Time for 1 Occurrences starting 01/12/2024 until 01/12/2024 [facility] Comment on above: One Time for 1 Occur rences starting 01/12/2024 until 01/12/2024 VLDL cholesterol measurement [facility] VLDL cholesterol measurement [facility] Immunizations Immunization Date Immunization Notes Care Provider Fa [facility] 11-08-2019 Influenza, injectabl e, Madin [place] Canine Kidney, preservative free, quadrivalent DO Zain Reyes Work Phone: [facility] 11-08-2019 influenza virus vacc ine, unspecified formulation Caitlin Cheatham APRN.[facility] Work Phone: [facility] 01-13-2019 hepatitis A vaccine, adult dosage Caitlin Cheatham APRN.[facility] Work Phone: [facility] Work Phone: 07-22-2018 tetanus toxoid, redu juan alberto diphtheria toxoid, and acellular pertussis vaccine, adsorbed Luis Armando Franz [facility] Comment on above: Reason for Medicatio n: Other (see comment) 09-26-2016 influenza, injectabl e, quadrivalent, preservative free Caitlin Cheatham APRN.[facility] Work Phone: [facility] Work Phone: 09-26-2016 RHO(D) immune globul in- IV or IM Caitlin Cheatham APRN.[facility] Work Phone: [facility] Work Phone: 09-26-2016 tetanus toxoid, redu juan alberto diphtheria toxoid, and acellular pertussis vaccine, adsorbed Caitlin Cheatham APRN.[facility] Work Phone: [facility] Work Phone: 12-26-2013 influenza, seasonal, injectable Luis Armando Franz [facility] 12-26-2013 pneumococcal polysaccharide vaccine, 23 valent Luis Armando Franz [facility] 07-26-2012 tetanus toxoid, redu juan alberto diphtheria toxoid, and acellular pertussis vaccine, adsorbed Luis Armando Franz [facility] Comment on above: Reason for Medicatio n: Other (see comment) 10-18-2011 pneumococcal polysaccharide vaccine, 23 valent Luis Armando Franz [facility] Comment on above: Early/Late Reason: A ccommodate D/C 10-18-2011 influenza, seasonal, injectable Luis Armando Franz [facility] Comment on above: Early/Late Reason: A ccommodate D/C 2010 novel influenza-H1N1 -09, preservative-free, injectable Caitlin Cheatham APRN.[employer] Work Phone: [facility] Work Phone: 06-09-1997 hepatitis B vaccine, pediatric or pediatric/adolescent dosage Caitlin Cheatham APRN.[employer] Work Phone: [facility] Work Phone: 06-09-1997 measles, mumps and rubella virus vaccine Caitlin Cheatham APRN.[employer] Work Phone: [facility] Work Phone: 06-09-1997 hepatitis B vaccine, unspecified formulation Caitlin Cheatham APRN.[employer] Work Phone: [facility] Payers Date Payer Category Payer Self-pay [id number] 2022 Medicaid [place] [employer] [place] [employer] [id number] 2022-[facility] [id number] [address] Medicaid [id number] 1985 Unknown [id number] 2.16.840.1.932636.3.579.2.176 1985 Unknown [id number] 2.16.840.1.838811.3.579.2.176 1985 Unknown [id number] 2.16.840.1.575673.3.579.2.593 1985 Unknown [id number] 2.16.840.1.108620.3.579.2.593 1985 Unknown [id number] 2.16.840.1.044043.3.579.2.593 1985 Unknown [id number] 2.16.840.1.656168.3.579.2.593 1985 Unknown [id number] 2.16.840.1.071619.3.579.2.593 1985 Unknown [id number] 2.16.840.1.973629.3.579.2.593 1985 Unknown [id number] 2.16.840.1.517762.3.579.2.902 1985 Unknown [id number] 2.16.840.1.107809.3.579.2.727 1985 Unknown [id number] 2.16.840.1.160441.3.579.2.727 1985 Unknown [id number] 2.16.840.1.412008.3.579.2.727 1985 Unknown [id number] 2.16.840.1.960332.3.579.2.727 1985 Unknown [id number] 2.16.840.1.756888.3.579.2.727 1985 Unknown [id number] 2.16.840.1.526416.3.579.2. 1985 Unknown [id number] 2.16.840.1.224020.3.579.2 1985 Unknown [id number] 2.16.840.1.085991.3.579.2 1985 Unknown [id number] 2.16.840.1.986934.3.579.2 1985 Unknown [id number] 2.16.840.1.860836.3.579.2 1985 Unknown [id number] 2.16.840.1.597458.3.579.2 1985 Unknown [id number] 2.16.840.1.001932.3.579.2 1985 Unknown [id number] 2.16.840.1.273724.3.579.2 1985 Unknown [id number] 2.16.840.1.159588.3.579.2 1985 Unknown [id number] 2.16.840.1.317077.3.579.2 1985 Unknown [id number] 2.16.840.1.755737.3.579.2 1985 Unknown [id number] 2.16.840.1.472447.3.579.2 1985 Unknown [id number] 2.16.840.1.669995.3.579.2.727 1959 Unknown [id number] 1.2.840.983930.1.13.239.2.7.3.6 35259.315 Unknown [id number] 2.16.840.1.634011.3.579.2.531 Unknown [id number] 2.16.840.1.676887.3.579.2.531 Unknown [id number] 2.16.840.1.435335.3.579.2.531 Unknown [id number] 2.16.840.1.659869.3.579.2.531 Unknown [id number] 2.16.840.1.512885.3.579.2.531 Unknown [id number] 2.16.840.1.673710.3.579.2.531 Unknown [id number] 2.16.840.1.789815.3.579.2.531 Unknown [id number] 2.16.840.1.175955.3.579.2.531 Unknown [id number] 2.16.840.1.606576.3.579.2.531 Unknown [id number] 2.16.840.1.046323.3.579.2.531 Unknown [id number] 2.16.840.1.033541.3.579.2.531 Unknown [id number] 2.16.840.1.794020.3.579.2.531 Unknown [id number] 2.16.840.1.322277.3.579.2.531 Social History Date Type Detail Facility Start: 05-07-2019 End: 07-23-2020 Tobacco smoking status NHIS Current every day smoker [facility] History of tobacco use Cigarette Smoker [place], [place] Start: 07-23-2020 End: 01-12-2024 Cigarettes smoked current (pack per day) - Reported [facility] Work Phone: Start: 05-07-2019 End: 07-23-2020 Tobacco use and exposure Never used [place], [place] Start: 07-23-2020 End: 01-12-2024 Alcohol intake Current non-drinker of alcohol (finding) [place], [place] Start: 06-15-2015 Alcohol Comment unsure [facility] [place], [place] Start: 1985 Sex Assigned At Not on file [place], [place] Exposure to SARS-CoV -2 (event) Not sure [place] Start: 11-01-2021 End: 10-10-2022 Tobacco smoking status Light tobacco smoker (finding) [facility] Start: 08-08-2022 End: 10-15-2023 Tobacco smoking status Smoker (finding) [facility] Tobacco smoking status Never [facility] Start: 04-16-2023 End: 01-12-2024 Sex Assigned At Female [facility] Start: 1985 Sex Assigned At Female F [facility] Tobacco [facility] Comment on above: denies Tobacco smoking status No Smokin g Status Entered [facility] Has the ustyme, SteadyFare, Qwiki, or iHandle threatened to shut off services in your home in past 12Mo No [facility] Do you belong to any clubs or organizations such as shinto groups, unions, fraternal or athletic groups, or school groups? Yes [facility] Are you now , , , , never or living with a partner? [facility] How often to you hav e a drink containing alcohol? Never [facility] Do you feel stress - tense, restless, nervous, or anxious, or unable to sleep at night because your mind is troubled all the time - these days [OSQ] To some extent [facility] (I/We) worried wheth er (my/our) food would run out before (I/we) got money to buy more. DK or Refused [facility] Goals Date Patient Goal Desired Activity /State Functional Status Date Assessment Result Facility 10-21-2023 Functional status Patient at [facility] Work Phone: 07-13-2023 Functional status Patient at [facility] Work Phone: 01-16-2023 Functional status Patient at [facility] Work Phone: 11-09-2022 Functional Status N/A [facility] 11-06-2022 Functional Status N/A [facility] 10-10-2022 Functional Status N/A [facility] 10-02-2022 Functional Status N/A [facility] 04-24-2022 Functional Status N/A [facility] Mental Status Date Assessment Result Facility 10-21-2023 Cognitive function Cognitive Sta tus Patient at [facility] Work Phone: 07-13-2023 Cognitive function Cognitive Sta tus Patient at [facility] Work Phone: 01-16-2023 Cognitive function Cognitive Sta tus Patient at [facility] Work Phone: Clinical Notes 04-24-2022 to 01-13-2024 Discharge InstructionsChuck La MD - 12/14/2023 2:03 PM ESTTelephone Encounter - Eveline Chau RN - 12/02/2023 5:36 PM Akbar Martinez MD - 12/01/2023 1:43 PM EST Note Date & Type Note Facility 01-13-2024 Hospital Discharg e instructions Kevin Cason MD - 01/13/2024 5:10 AM EDT You were evaluated in the emergency department for anxiety indeed you did receive medications that helps with that anxiety. After reaching out to [facility] at your request, your request was denied to come to their facility. Please continue to take your medication and reach out to your mental health professionals if you feel the need to otherwise follow-up with your primary care physicians or return to the emerged department if they are worsening or new symptoms The following attachments cannot be sent through Care Everywhere.Anxiety Disorders: General Info (Marshallese)documented in this encounter [facility] 12-14-2023 Note HNO ID: [id number] Author: CHUCK GALINDO MD Service: ? Author Type: Physician Type: Progress Notes Filed: 12/14/2023 14:23 Note Text: VIRTUAL VISIT PROGRESS NOTE This is a virtual visit using UYA[employer] Zoom Video Visit. It required patient-provider interaction for the medical decision making as documented below. I have communicated my name and active licensure. The patient's identity and physical location were verified at the time of this visit. Either the patient or their legal labor representative has been informed of the risks and benefits of -- and alternatives to -- treatment through a remote evaluation and consents to proceed with the evaluation remotely. Lorna Deutsch is a 38 year old female seen for med refills for ADD. Pt stopped Methadone 11/20/23- no cravings and no narcotics Taking Buprenorphine- Nalox 8-2 mg 12/09/23 Has trouble with anxiety and Uses Klonopin 1 mg tid Uses Adderall 30 bid Has to find psychiatry- is looking Does not like how feels on Lyrica- feels funny Gabapentin 600 mg qid requested - really helps with back pain PDMP website checked and validated. All prescriptions have been APPROPRIATELY filled. No suspicious activity was identified. 12/14/2023 by Chuck Galindo MD HISTORY REVIEWED (electronic chart updated): PAST MEDICAL HISTORY Diagnosis Date Heroin addiction (HCC) No past surgical history on file. No family history on file. Social History Tobacco Use Smoking status: Every Day Packs/day: 1 Types: Cigarettes Substance Use Topics Alcohol use: No Current Outpatient Medications Medication Sig clonazePAM (KLONOPIN) 1 mg tablet Take 0.5 tablets by mouth three times a day as needed for up to 30 days. for insomnia. pregabalin (LYRICA) 150 mg capsule Take 1 capsule by mouth three times a day for 90 days. dextroamphetamine-amphetamine (ADDERALL) 10 mg tablet Take 2 tablets by mouth twice daily for 30 days. methadone (DOLOPHINE) 5 mg tablet Take 10 mg by mouth. QUEtiapine (SEROQUEL) 200 mg tablet Take 200 mg by mouth. divalproex ER (DEPAKOTE ER) 500 mg 24 hr tablet Take 500 mg by mouth once daily. No current facility-administered medications for this visit. ALLERGIES No Known Allergies PHYSICAL EXAMINATION: VIDEO EXAM: (if completed, performed via video enabled technology) GENERAL: alert and appropriate, in no distress and happy, smiling, interactive ASSESSMENT: (F98.8) Attention deficit disorder, unspecified hyperactivity presence (primary encounter diagnosis) (F41.9) Anxiety PLAN: I explained to pt that I will fill Klonopin and Adderall only for 3 months while she is looking for psychiatrist, NOT any longer no matter the circumstances I can fill Gabapentin ongoing as long as she sees me q 6 months I spent a total of 20 minutes on the date of the service which included preparing to see the patient, [id number] patient care, completing clinical documentation, obtaining and/or reviewing separately obtained history, performing a medically appropriate examination, counseling and educating the patient/family/caregiver, and ordering medications, tests, or procedures Chuck Galindo MD [facility] 12-14-2023 History of Presen t illness Narrative VIRTUAL VISIT PROGRESS NOTE This is a virtual visit using [employer] Video Visit. It required patient-provider interaction for the medical decision making as documented below. I have communicated my name and active licensure. The patient's identity and physical location were verified at the time of this visit. Either the patient or their legal labor representative has been informed of the risks and benefits of -- and alternatives to -- treatment through a remote evaluation and consents to proceed with the evaluation remotely. Lorna Deutsch is a 38 year old female seen for med refills for ADD. Pt stopped Methadone 11/20/23- no cravings and no narcotics Taking Buprenorphine- Nalox 8-2 mg 12/09/23 Has trouble with anxiety and Uses Klonopin 1 mg tid Uses Adderall 30 bid Has to find psychiatry- is looking Does not like how feels on Lyrica- feels funny Gabapentin 600 mg qid requested - really helps with back pain PDMP website checked and validated. All prescriptions have been APPROPRIATELY filled. No suspicious activity was identified. 12/14/2023 by Chuck Galindo MD HISTORY REVIEWED (electronic chart updated): PAST MEDICAL HISTORY Diagnosis Date Heroin addiction (HCC) No past surgical history on file. No family history on file. Social History Tobacco Use Smoking status: Every Day Packs/day: 1 Types: Cigarettes Substance Use Topics Alcohol use: No Current Outpatient Medications Medication Sig clonazePAM (KLONOPIN) 1 mg tablet Take 0.5 tablets by mouth three times a day as needed for up to 30 days. for insomnia. pregabalin (LYRICA) 150 mg capsule Take 1 capsule by mouth three times a day for 90 days. dextroamphetamine-amphetamine (ADDERALL) 10 mg tablet Take 2 tablets by mouth twice daily for 30 days. methadone (DOLOPHINE) 5 mg tablet Take 10 mg by mouth. QUEtiapine (SEROQUEL) 200 mg tablet Take 200 mg by mouth. divalproex ER (DEPAKOTE ER) 500 mg 24 hr tablet Take 500 mg by mouth once daily. No current facility-administered medications for this visit. ALLERGIES No Known Allergies PHYSICAL EXAMINATION: VIDEO EXAM: (if completed, performed via video enabled technology) GENERAL: alert and appropriate, in no distress and happy, smiling, interactive ASSESSMENT: (F98.8) Attention deficit disorder, unspecified hyperactivity presence (primary encounter diagnosis) (F41.9) Anxiety PLAN: I explained to pt that I will fill Klonopin and Adderall only for 3 months while she is looking for psychiatrist, NOT any longer no matter the circumstances I can fill Gabapentin ongoing as long as she sees me q 6 months I spent a total of 20 minutes on the date of the service which included preparing to see the patient, [id number] patient care, completing clinical documentation, obtaining and/or reviewing separately obtained history, performing a medically appropriate examination, counseling and educating the patient/family/caregiver, and ordering medications, tests, or procedures Chuck Galindo MD documented in this encounter [facility] 12-02-2023 Miscellaneous Notes Patient states she went to rehab, has successfully stopped methadone. She was on her anxiety and adhd medication while there, this is the only way she can function daily. Requesting one refill of her Adderall, states she is still in the process of finding a psychiatrist/physician close to her. Patient advised last dose we have on file Is 20 mg PO BID - patient states she was increased in rehab to 30 mg PO BID because that is what they had on hand. Patient advised her update and request will be sent to Caitlin Cheatham CNP (prescriber) and Dr. Galindo for review when they return to the office tomorrow. The office will call her tomorrow with their response. [facility] [address] [phone] [facility] [phone] Message left for the patient to call back - please transfer to a nurse when she returns our call. Lorna is calling Caitlin Cheatham APRN.CNP today with concern regarding Patient Update (Rehab discharge, Medication Update) The patient called the office requesting a message to be sent to Caitlin Cheatham CNP. Patient recently was discharged from rehab. Got off of methadone. While in rehab she was still able to be prescribed Klonopin and Adderall. She has recently asked Dr. Galindo for a refill on Adderall. She wants to let Caitlin know she was able to still be on these medications. She was requesting for me to detail her message verbatim and had a lot she would like to relay to Caitlin. I advised I would send a general message to the clinical staff and a nurse can return her call to review. Patient has been identified by name and birthdate. Duration of symptoms: N/A Person calling: self Call patient at: on cell [phone] (home) [phone] (cell) Was an appointment scheduled: No Closing statement: Results or non-symptom based questions: Thank you for calling [facility], your call will be returned within the next business day. Marvin Sanchez documented in this encounter [facility] 12-02-2023 Miscellaneous Notes Closing this encounter - see other encounter for 12-02-23. Summary: Med Request Lorna is calling Chuck Galindo MD today with concern regarding medication. Patient is requesting Adderall 30mg 2 times daily. She stated she knows you are the prescriber of her ADHD. She has graduated rehab and no longer on methadone. She has the graduation certificate if needed to send you. The only medications that kept her sober were her anxiety medications which were given to her at rehab. She stated she is trying to get a new [facility] doctor but its taking longer than expected. [facility] [address] [place] [phone] [facility] [phone] Patient has been identified by name and birthdate. Duration of symptoms: N/A Person calling: self Call patient at: on cell [phone] (home) [phone] (cell) Was an appointment scheduled: No Closing statement: Results or non-symptom based questions: Thank you for calling [facility], your call will be returned within the next business day. Bambi Aden documented in this encounter [facility] 12-01-2023 Note HNO ID: [id number] Author: AKBAR KOCH MD Service: ? Author Type: Anesthesiologist Type: Progress Notes Filed: 12/01/2023 13:53 Note Text: [facility] [address], [place] [address] Chronic Pain Clinic Follow-Up Evaluation Date: December 01, 2023 - 1:43 PM The following visit was completed virtually. I have communicated my name and active licensure. The patient's identity and physical location were verified at the time of this visit. Either the patient or their legal labor representative has been informed of the risks and benefits of -- and alternatives to -- treatment through a remote evaluation and consents to proceed with the evaluation remotely. Allergies: ALLERGIES No Known Allergies Current Outpatient Medications: Current Outpatient Medications Medication Sig pregabalin (LYRICA) 150 mg capsule Take 1 capsule by mouth three times a day for 90 days. clonazePAM (KLONOPIN) 1 mg tablet Take 0.5 tablets by mouth three times daily as needed for up to 30 days. for insomnia. dextroamphetamine-amphetamine (ADDERALL) 10 mg tablet Take 2 tablets by mouth twice daily for 30 days. methadone (DOLOPHINE) 5 mg tablet Take 10 mg by mouth. QUEtiapine (SEROQUEL) 200 mg tablet Take 200 mg by mouth. divalproex ER (DEPAKOTE ER) 500 mg 24 hr tablet Take 500 mg by mouth once daily. No current facility-administered medications for this visit. Current Anticoagulant Therapy: No Past Medical History: PAST MEDICAL HISTORY Diagnosis Date Heroin addiction (HCC) Past Surgical History: No past surgical history on file. Family History: No family history on file. Social History: Alcohol Use: No Tobacco Use: 1 packs/day Types: Cigarettes Drug Use: Not on file Subjective History of Present Illness Lorna Deutsch is a 38 year old who presents to [facility] Department for a follow up appointment. The plan from the last visit on 04/16/2023 was: -stop gabapentin and start Lyrica Week one: Gabapentin 800 mg twice daily and Lyrica 75 mg at bedtime Week two: Gabapentin 800 mg in the morning and Lyrica 75 mg in the afternoon and at bedtime Week three: Lyrica 75 mg three times per day thereafter -lumbar flex/ex XR -follow up in 3 months Since the last visit, she has stopped methadone and started suboxone. Her Lyrica was increased to 100 mg TID while in a rehab facility. This has helped her pain some. Since her last visit the patient reported moderate improvement in pain and moderate improvement in function. Past Pain Management Procedures: none Current Pain Medications: Lyrica 150 mg TID Suboxone 8-2 Past Pain Medications: Gabapentin- did not help The Review of Systems is negative in detail expect as noted in the above history of present illness. Physical Examination Physical Exam Vitals: LMP 03/14/2023 General:well appearing, alert, and in no acute distress Skin: skin color, texture, turgor normal, no rashes or lesions HEENT: normocephalic, atraumatic, sclera non-icteric Cardiovascular: Acyanotic Lungs: Unlabored on room air Patient denies any red flag symptoms such as bowel/bladder dysfunction or sudden weakness. New or Pertinent Imaging New Imaging and Diagnostic Studies: No Reports listed here were copy and pasted directly into the note by myself after review of the complete report and/or the images. Those areas highlighted in red are significant and to today's encounter. Assessment AND Plan Lorna Deutsch is a 38 year old female with chronic low back pain most consistent with myofascial pain syndrome and facet arthropathy. Was previously on methadone however she has stopped methadone after being admitted to a rehab facility and is now on Suboxone. First visit with me I started her on Lyrica and transitioned her off gabapentin. The Lyrica was helping her and it was increased to 100 mg 3 times daily while she was in the rehab facility. She states that is still helping she thinks she needs a higher dose. Will increase Lyrica to 150 mg 3 times a day with a ramp. Follow-up in 3 to 6 months. The primary encounter diagnosis was Chronic midline low back pain without sciatica. A diagnosis of Myofascial pain syndrome was also pertinent to this visit. PLAN: Increase Lyrica to 150 mg 3 times a day Follow up in 3-6 months The above plan and management options were discussed at length with patient. Patient is in agreement with the above and verbalized understanding. Akbar Koch MD Electronic signature 1. This office note has been dictated and may contain minor typographic errors that escaped review. 2. The nursing staff and medical assistants are a major part of YOUR TREATMENT TEAM and will be handling your phone calls and inquiries, if any. Unless explicitly told otherwise at the time of your office visit, yo (more content not included)... [facility] 12-01-2023 Miscellaneous Notes Pt called office after having a virtual appointment with Dr. Koch requesting a prescription for Tramadol. Left a message with the [place] d/t to nurse and Dr. Koch with patients. RN called patient back as requested. Informed patient that Dr. Koch will not prescribe patient with opioid medication based on her current medications and Narx score of 720. Pt states she has the flu and it hurts to cough. RN educated patient on going to the ED for evaluation if she felt she needed to. Pt verbalized understanding. Bryan Jade RN December 01, 2023 2:16 PM documented in this encounter [facility] 12-01-2023 History of Presen t illness Narrative Images from the original note were not included. [facility] [address], [place] [address] Chronic Pain Clinic Follow-Up Evaluation Date: December 01, 2023 - 1:43 PM The following visit was completed virtually. I have communicated my name and active licensure. The patient's identity and physical location were verified at the time of this visit. Either the patient or their legal labor representative has been informed of the risks and benefits of -- and alternatives to -- treatment through a remote evaluation and consents to proceed with the evaluation remotely. Allergies: ALLERGIES No Known Allergies Current Outpatient Medications: Current Outpatient Medications Medication Sig pregabalin (LYRICA) 150 mg capsule Take 1 capsule by mouth three times a day for 90 days. clonazePAM (KLONOPIN) 1 mg tablet Take 0.5 tablets by mouth three times daily as needed for up to 30 days. for insomnia. dextroamphetamine-amphetamine (ADDERALL) 10 mg tablet Take 2 tablets by mouth twice daily for 30 days. methadone (DOLOPHINE) 5 mg tablet Take 10 mg by mouth. QUEtiapine (SEROQUEL) 200 mg tablet Take 200 mg by mouth. divalproex ER (DEPAKOTE ER) 500 mg 24 hr tablet Take 500 mg by mouth once daily. No current facility-administered medications for this visit. Current Anticoagulant Therapy: No Past Medical History: PAST MEDICAL HISTORY Diagnosis Date Heroin addiction (HCC) Past Surgical History: No past surgical history on file. Family History: No family history on file. Social History: Alcohol Use: No Tobacco Use: 1 packs/day Types: Cigarettes Drug Use: Not on file Subjective History of Present Illness Lorna Deutsch is a 38 year old who presents to [facility] Management Department for a follow up appointment. The plan from the last visit on 04/16/2023 was: -stop gabapentin and start Lyrica Week one: Gabapentin 800 mg twice daily and Lyrica 75 mg at bedtime Week two: Gabapentin 800 mg in the morning and Lyrica 75 mg in the afternoon and at bedtime Week three: Lyrica 75 mg three times per day thereafter -lumbar flex/ex XR -follow up in 3 months Since the last visit, she has stopped methadone and started suboxone. Her Lyrica was increased to 100 mg TID while in a rehab facility. This has helped her pain some. Since her last visit the patient reported moderate improvement in pain and moderate improvement in function. Past Pain Management Procedures: none Current Pain Medications: Lyrica 150 mg TID Suboxone 8-2 Past Pain Medications: Gabapentin- did not help The Review of Systems is negative in detail expect as noted in the above history of present illness. Physical Examination Physical Exam Vitals: LMP 03/14/2023 General:well appearing, alert, and in no acute distress Skin: skin color, texture, turgor normal, no rashes or lesions HEENT: normocephalic, atraumatic, sclera non-icteric Cardiovascular: Acyanotic Lungs: Unlabored on room air Patient denies any red flag symptoms such as bowel/bladder dysfunction or sudden weakness. New or Pertinent Imaging New Imaging and Diagnostic Studies: No Reports listed here were copy and pasted directly into the note by myself after review of the complete report and/or the images. Those areas highlighted in red are significant and to today's encounter. Assessment & Plan Lorna Deutsch is a 38 year old female with chronic low back pain most consistent with myofascial pain syndrome and facet arthropathy. Was previously on methadone however she has stopped methadone after being admitted to a rehab facility and is now on Suboxone. First visit with me I started her on Lyrica and transitioned her off gabapentin. The Lyrica was helping her and it was increased to 100 mg 3 times daily while she was in the rehab facility. She states that is still helping she thinks she needs a higher dose. Will increase Lyrica to 150 mg 3 times a day with a ramp. Follow-up in 3 to 6 months. The primary encounter diagnosis was Chronic midline low back pain without sciatica. A diagnosis of Myofascial pain syndrome was also pertinent to this visit. PLAN: Increase Lyrica to 150 mg 3 times a day Follow up in 3-6 months The above plan and management options were discussed at length with patient. Patient is in agreement with the above and verbalized understanding. Akbar Koch MD Electronic signature 1. This office note has been dictated and may contain minor typographic errors that escaped review. 2. The nursing staff and medical assistants are a major part of YOUR TREATMENT TEAM and will be handling your phone calls and inquiries, if any. Unless explicitly told otherwise at the time of your office visit, your study results and ensuing treatment plans will be discussed during your follow-up appointment. If you do not have a follow-up appointment and wish to discuss any issues directly with me, please feel free to obtain one. 3. It is my practice to not fill disability or any other insurance-related forms/documention. All of the office notes, study results, and other pertinent documentation generated as part of your evaluation will be available to you and to your Primary Care Physician (PCP). Use of this material to complete such forms will be at the discretion of your PCP/referring physician. Medical Decision Making In accordance with the assessment above, the following problems were actively managed in this visit encounter: Bilateral axial low back pain. This problem is chronic and is stable. We plan to treat with a prescription or continuation of pregabalin. . Notes and tests identified as copied and pasted above were directly placed into the frame of this note by myself and are pertinent to my medical decision making. OARRS: PDMP website checked and validated and is consistent with medication report. *Information in italics was copied from the shared EMR Medical Decision Making: Problems: Moderate: 1+ chronic illnesses with change Risk: Moderate: Drug management Medical Decision Making Level: 4 - Moderate documented in this encounter [facility] 12-01-2023 Miscellaneous Notes Patient has been identified by name and date of : Yes Patient phoned to request the following prescription(s) If there are any questions regarding this prescription request, call on cell at: [phone] (home) [phone] (cell) RX INSTRUCTIONS: Patient requesting a call when RX is approved and sent to the pharmacy. Please call patient at: [phone] (cell) Pt is asking to have the script sent over RANGEL as she is completely out. Pt stated she found a new psychiartist but her first visit isn't for a month and a half. Patient also stated she got herself off the methadone completely, she did it cold turkey. Please call patient on cell once sent to the pharmacy. Date of last refill: 06/18/2023 Date of last office visit: 04/16/2023 Date of last [facility] visit: Visit date not found Date of future office visit: Not Scheduled Requested Prescriptions Pending Prescriptions Disp Refills clonazePAM (KLONOPIN) 1 mg tablet 45 tablet 0 Sig: Take 0.5 tablets by mouth three times a day as needed for up to 30 days. for insomnia. Prescriptions are usually addressed within 24-48 business hours. If patient states they cannot wait 24-48 business hours, please document details. Last 2 Encounter Wt Readings: Date: Wt: 04/16/2023 65.8 kg (145 lb) 03/16/2023 69.9 kg (154 lb) Last 2 Encounter BP Readings: Date: BP: 04/16/2023 133/79 04/16/2023 120/79 CMP: Glucose 99 06/18/2013 BUN 13 06/18/2013 Creatinine 0.65 06/18/2013 Sodium 139 06/18/2013 Potassium 4.2 06/18/2013 Chloride 103 06/18/2013 CO2 28 06/18/2013 Protein, Total 7.1 06/18/2013 Albumin 3.0 06/18/2013 Calcium 8.9 06/18/2013 Alkaline Phosphatase 67 06/18/2013 Bilirubin, Total 0.2 06/18/2013 AST 11 06/18/2013 ALT 16 06/18/2013 No results found for: CHOL No results found for: HDL No results found for: LDL No results found for: TG No results found for: TSH No results found for: HBA1C Hemoglobin (g/dL) Date Value 06/04/2013 11.7 HGB (g/dL) Date Value 06/17/2013 12.1 Hematocrit (%) Date Value 06/17/2013 36.0 WBC (thou/cmm) Date Value 06/17/2013 6.6 Platelet Count (thou/cmm) Date Value 06/17/2013 298 Ban Nino documented in this encounter [facility] 12-01-2023 Miscellaneous Notes Returned patient's call as requested. Pt states she has the flu and doesn't feel good but doesn't want to reschedule her appointment because she needs her medication refilled today. Pt states she got a new phone and new email address. Rn instructed patient to download [employer] patti to her new phone. Pt states she doesn't know her information and got a new email. Pt is going to try to make a new account. Pt was informed Dr. Koch could not do a phone call as an appointment and in order to do a zoom link patient needs mychart. Pt verbalized understanding and will try to download the mychart. Bryan Jade RN December 01, 2023 12:01 PM Patient called back in reporting she is having trouble with MyChart. She was recently seen at [facility] last evening and diagnosed with the flu. Says it hurts every time she coughs. She does not feel well enough to try and deal with getting her account fixed at this time. Asking if Dr. Koch can send a Zoom link to her email or if she can do a phone visit. Patient [phone] (home) [phone] (cell) Lorna is calling Akbar Koch MD today with concern regarding Appointment (12/01/2023) Patient called to ask if the provider had a sooner appointment for today, sooner than her 1:30 PM scheduled visit. Advised the provider is fully booked at this time. Patient asked for visit to be virtual, confirmed with RN and provider that this is okay. Changed visit to virtual. When returning to patient who was on hold she did not respond and then disconnected the call. Conductor message sent with reminder to complete [id number]. Patient has been identified by name and birthdate. Duration of symptoms: N/A Person calling: self Call patient at: on cell [phone] (home) [phone] (cell) Was an appointment scheduled: No Already scheduled for today, 12/01/2023. Closing statement: Results or non-symptom based questions: Thank you for calling [facility], your call will be returned within the next business day. Marvin Sanchez documented in this encounter [facility] 10-25-2023 Note [phone] [id number] [facility] 10-21-2023 Discharge summary Note Date/Time October 21, 2023 11:45am [facility] [address] [place], [place] [id number] Discharge Summary Signed Patient: Lorna Deutsch MR#: [id number] : 1985 Acct:[id number] Age/Sex: 38 / F Adm Date: 3 Loc: Room: [address] [place] [address]: Bobo Shields MD Copies to: MD Cris Murcia BEHAVIOR ANALYST, AIR TWISTER WINDER~ Providers Date of Discharge: 10/21/23 Discharging Provider: [...] No activity restrictions Instructions: Bipolar Disorder (DC), [facility] DC Instructions Prescriptions: New ergocalciferol [...] BY MOUTH TWICE A DAY -START ON 269104 dextroamphetamine-amphetamine 20 mg tablet 20 mg PO DAILY Patient Comments: TAKE ONE TABLET BY MOUTH TWICE A DAY -START ON quetiapine 150 mg tablet 150 mg PO HS Patient Comments: TAKE ONE TABLET BY MOUTH ONCE DAILY AT BEDTIME Follow Up: [facility] [Other] (Follow facility protocol for mental health needs. ) Cris Pena APRN, CENTER CONSULTANT-C [Primary Care Provider] - (Contact your PCP with any medical needs. ) Documented By: Bobo Shields MD 10/21/23 114 Signed By: <Electronically signed by Bobo Shields MD> 10/21/23 1148 [facility] Work Phone: 1(969) 184-376701-09-2024 Progress note Author Bobo Shields [facility] October 20, 2023 1:54pm Note Date/Time October 20, 2023 1: 54pm [facility] [address] [place] [address] Psychiatry Progress Note Signed Patient: Lorna Deutsch MR#: [id number] : 1985 Acct:[id number] Age/Sex: 38 / F Adm Date: 3 Loc: Room: [address] [place] [address] Type : ADM IN Attending Dr: Bobo [...] explained Documented By: Bobo Shields MD 10/20/23 4215 Signed By: <Electronically signed by Bobo Shields MD> 10/20/23 9707 [facility] Work Phone: 1(513) 361-790901-08-2024 Consult note Author Virgilio Lynne [facility] October 19, 2023 3:20pm Note Date/Time October 15, 2023 5: 06pm [facility] [address] [place] [address] Hospitalist Consult Note Signed Patient: Lorna Deutsch MR#: [id number] : 1985 Acct:[id number] Age/Sex: 38 / F Adm Date: 3 Loc: Room: [address] [place] [address] Type: ADM IN Attending Dr: Bobo Shields MD Copies to: MD Virgilio Murcia MD Haley Robuck APRN, AIR TWISTER WINDER Darlin Abdi APRN~ HPI DATE OF CONSULTATION: 10/15/23 [...] <Electronically signed by Virgilio Lynne MD> 10/19/23 152 [facility] Work Phone: 1(578) 579-901201-08-2024 Progress note Author Bobo Shields [facility] October 19, 2023 12:37pm Note Date/Time October 19, 2023 12 :36pm [facility] [address] [place] [address] Psychiatry Progress Note Signed Patient: Lorna Deutsch MR#: [id number] : 1985 Acct:[id number] Age/Sex: 38 / F Adm Date: 3 Loc: Room: [address] [place] [address] Type : ADM IN Attending Dr: Bobo [...] explained Documented By: Bobo Shields MD 10/19/23 1233 Signed By: <Electronically signed by Bobo Shields MD> 10/19/23 4222 [facility] Work Phone: 1(519) 169-443401-07-2024 Progress note Author Claudio case [facility] October 18, 2023 7:13am Note Date/Time October 18, 2023 7: 11am [facility] [address] [place] [address] Psychiatry Progress Note Signed Patient: Lorna Deutsch MR#: [id number] : 1985 Acct:[id number] Age/Sex: 38 / F Adm Date: 3 Loc: 1S Room: [address] [place] [address] Type : ADM IN Attending Dr: Bboo Shields MD Copies to: ~ Date of [...] <Electronically signed by Claudio Dee MD> 10/18/23 0785 [facility] Work Phone: 1(674) 780-835101-05-2024 Progress note Author Claudio case [facility] October 16, 2023 7:43am Note Date/Time October 16, 2023 7: 43am [facility] [address] [place] [address] Psychiatry Progress Note Signed Patient: Lorna Deutsch MR#: [id number] : 1985 Acct:[id number] Age/Sex: 38 / F Adm Date: 3 Loc: Room: [address] [place] [address] Type : ADM IN Attending Dr: Bobo Shields MD Copies to: ~ Date of Service: 10/16/2023 Subjective Subjective Narrative: Ms. Deutsch reported that she is depressed and wants to speak to a counselor. Sheclaims that she is going through Klonopin withdrawal. No objective signs. She continues to endorse SI. She was accepted to [facility] but does not wantto go now. [...] explained Documented By: Claudio Dee MD 4 0740 Signed By: <Electronically signed by Claudio Dee MD> 10/16/23 0743 [facility] Work Phone: 1(740) 966-362201-04-2024 Progress note Author Claudio case [facility] October 15, 2023 9:39am Note Date/Time October 15, 2023 9: 39am [facility] [address] [place] [address] Psychiatry Progress Note Signed Patient: Lorna Deutsch MR#: [id number] : 1985 Acct:[id number] Age/Sex: 38 / F Adm Date: 3 Loc: Room: [address] [place] [address] Type : ADM IN Attending Dr: Bobo [...] signed by Claudio Dee MD> 10/15/23 0939 [facility] Work Phone: 1(559) 300-996201-03-2024 Progress note Author Claudio case [facility] October 14, 2023 6:36am Note Date/Time October 14, 2023 6: 36am [facility] [address] [place] [address] Psychiatry Progress Note Signed Patient: Lorna Deutsch MR#: [id number] : 1985 Acct:[id number] Age/Sex: 38 / F Adm Date: 3 Loc: Room: [address] [place] [address] Type : ADM IN Attending Dr: Bobo [...] signed by Claudio Dee MD> 10/14/23 0636 [facility] Work Phone: 1(236) 714-875301-02-2024 Progress note Author Claudio case [facility] October 13, 2023 7:39am Note Date/Time October 13, 2023 7: 39am [facility] [address] [place] [address] Psychiatry Progress Note Signed Patient: Lorna Deutsch MR#: [id number] : 1985 Acct:[id number] Age/Sex: 38 / F Adm Date: 3 Loc: 1S Room: 7U9316-1 Type : ADM IN Attending Dr: Bobo [...] signed by Claudio Dee MD> 10/13/23 0739 [facility] Work Phone: 1(922) 554-220101-01-2024 Progress note Author Claudio case [facility] October 12, 2023 7:26am Note Date/Time October 12, 2023 7: 26am [facility] [address] [place] [address] Psychiatry Progress Note Signed Patient: Lorna Deutsch MR#: [id number] : 1985 Acct:[id number] Age/Sex: 38 / F Adm Date: 3 Loc: Room: [address] [place] [address] Type : ADM IN Attending Dr: Bobo [...] explained Documented By: Claudio Dee MD 4 0724 Signed By: <Electronically signed by Claudio Dee MD> 10/12/23 0726 [facility] Work Phone: 1(890) 273-696812-31-2023 Progress note Author Bobo Shields [facility] October 11, 2023 11:07am Note Date/Time October 11, 2023 11:07am [facility] [address] [place] [address] Psychiatry Progress Note Signed Patient: Lorna Deutsch MR#: [id number] : 1985 Acct:[id number] Age/Sex: 38 / F Adm Date: 3 Loc: Room: [address] [place] [address] Type : ADM IN Attending Dr: Bobo [...] alternatives explained Documented By: Bobo Shields MD 10/11/236 Signed By: <Electronically signed by Bobo Shields MD> 10/11/237 [facility] Work Phone: 1(772) 628-396712-30-2023 Progress note Author Bobo Shields [facility] October 10, 2023 11:30am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 Patient Instructions* Caitlin Cheatham APRN.[facility] - 03/16/2023 8:57 AM EDT SMOKING [...] desirable brand of cigarettes. 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 Use matches. Carry your cigarettes in a [...] why you quit. Also remember that a [employer] industry spends billions of dollars each year trying to get people like yourself re-hooked . The patient's goal is to quit by (insert month/year) documented in this encounterPremier Health [facility]06-05-2023 History of Present illness Narrative* Caitlin Cheatham [...] (Z12.4) Screening for cervical cancer `CONSULT TO ENROLLMENT MANAGEMENT COORDINATOR 5. (Z87.42) History of abnormal cervical Pap smear `CONSULT TO ENROLLMENT MANAGEMENT COORDINATOR 6. (F11.11) History of heroin abuse (HCC) [...] annual visit, sooner as needed. Caitlin Cheatham APRN.AIR TWISTER WINDER documented in this encounterPremier Health [facility]04-06-2023 Progress note Author Bobo Shields [facility] January 15, 2023 12:20pm Note Date/Time January 15, 2023 12:2 0pm [facility] [address] [place] [address] Psychiatry Progress Note Signed Patient: Lorna Deutsch MR#: [id number] : 1985 Acct:[id number] Age/Sex: 38 / F Adm Date: 3 Loc: Room: [address] [place] [address] Type : ADM IN Attending Dr: Bobo [...] signed by Bobo Shields MD> 01/15/23 1220 [facility] Work Phone: 1(459) 331-752104-05-2023 Progress note Author Bobo Shields [facility] January 14, 2023 12:21pm Note Date/Time January 14, 2023 12:2 1pm [facility] [address] [place] [address] Psychiatry Progress Note Signed Patient: Lorna Deutsch MR#: [id number] : 1985 Acct:[id number] Age/Sex: 38 / F Adm Date: 3 Loc: Room: [address] [place] [address] Type : ADM IN Attending Dr: Bobo [...] signed by Bobo Shields MD> 01/14/23 1221 [facility] Work Phone: 1(371) 584-797504-04-2023 Progress note Author Bobo Shields [facility] January 13, 2023 2:21pm Note Date/Time January 13, 2023 12:1 9pm [facility] [address] [place] [address] Psychiatry Progress Note Signed Patient: Lorna Deutsch MR#: [id number] : 1985 Acct:[id number] Age/Sex: 38 / F Adm Date: 3 Loc: Room: [address] [place] [address] Type : ADM IN Attending Dr: Bobo [...] <Electronically signed by Bobo Shields MD> 01/13/23 1420 [facility] Work Phone: 1(730) 330-257504-03-2023 History and physical note Author Bobo Shields [facility] January 12, 2023 3:37pm Note Date/Time January 12, 2023 3:33 pm [facility] [address] [place] [address] Psychiatry H&P Signed Patient: Lorna Deutsch MR#: [id number] : 1985 Acct:[id number] Age/Sex: 38 / F Adm Date: 3 Loc: 1S Room: 7G0916-1 Type: ADM IN Attending Dr: Bobo Shields MD Copies to: MD Cris Murcia BEHAVIOR ANALYST, AIR TWISTER WINDER~ Date of Service: 01/12/2023 HPI History of [...] Cloudy A Urine pH 6.0 Ur Specific [place] 1.020 Urine Protein Negative Urine Glucose (UA) [...] signed by Bobo Shields MD> 01/12/23 1537 [facility] Work Phone: 1(511) 261-223701-06-2023 Hospital Discharge instructions Follow Up Care 10/17/2022 14:45:23 With:Cris PENA CNP Address: [address] [place] [address]- When:Within 3 Month(s) [facility] 12-30-2022 Hospital Discharge instructions Follow Up Care 10/10/2022 09:47:38 With:Cris PENA CNP Address: [address] [place] [address]- When: only if needed [facility] 12-22-2022 Hospital Discharge instructions Patient Education [...] frozen fruits, and frozen vegetables. Avoid buying ssear-hk-hlq foods, such as pre-cut fruits and vegetables and pre-made salads. If possible, shop around to discover where you can find the best prices. Consider other retailers such as dollar stores, larger wholesale stores, local fruit and vegetable stands, and farmers markets. Do not shop when you are [...] 06/01/2015 Document Revised: 09/29/2018 Document Reviewed: 09/29/2018 [employer] Patient Education 2020 [employer]arket. 10/02/2022 17:55:09 Tobacco Use Disorder Tobacco Use [...] reduces withdrawal symptoms. NRT is available as: ?Jltz-xyr-jcjdahn gums, lozenges, and skin patches. ?Prescription mouth [...] recovery for many people. General instructions Take zdmn-vih-ngffagb and prescription medicines only as told by your health care provider. Check with your health care provider before taking any new prescription or xoog-tmm-nzzkccc medicines. Decide on a friend, family member, or smoking quit-line (such as 5-638-EXTB-NOW in the [place] that you can call [...] 06/03/2005 Document Revised: 09/15/2018 Document Reviewed: 09/15/2018 [employer] Patient Education 2020 bewarket. 10/02/2022 17:55:05 Attention Deficit Hyperactivity Disorder, Adult [...] primary care provider or a mental health student career development specialist. Your health care provider may use [...] Behavioral management. You may work with a trampoline team coach who is specially trained to help people with ADHD manage and organize activities and function more effectively. Follow these instructions at home: Medicines Take ewcw-mmq-yrtiryc and prescription medicines only as told by [...] Attention Deficit Disorder Association (ADDA): www.add.org National [place] of Mental Health (NIM): www.nimh.nih.gov Contact a [...] 05/20/2018 Document Revised: 02/20/2020 Document Reviewed: 02/20/2020 [employer] Patient Education 2020 [employer] 10/02/2022 17:55:03 Neuropathic Pain Neuropathic Pain [...] treated? Treatment for neuropathic pain may change lead time. You may need to try different treatment options or a combination of treatments. Some options include: Treating the underlying cause of the neuropathy, such as diabetes, kidney disease, or vitamin deficiencies. Stopping medicines that can cause neuropathy, such as chemotherapy. Medicine to relieve pain. Medicines may include: ?Prescription or gvaz-pem-llnwprk pain medicine. ?Anti-seizure medicine. ?Antidepressant medicines. ?Pain-relieving [...] Follow these instructions at home: Medicines Take whkf-obi-zigshba and prescription medicines only as told by [...] as fried or sweet foods. ?Take an uwlo-nca-zglobnr or prescription medicine for constipation. Lifestyle Have [...] 06/25/2005 Document Revised: 01/19/2020 Document Reviewed: 10/15/2018 [employer] Patient Education 2020 bewarket. Follow Up Care 09/29/2022 11:32:44 With:NANCY RODRIGUEZ CNP Address: [facility] [address] [place] [address] When: Unknown [facility] [place] 07-15-2022 Hospital Discharge instructions Patient Education 04/25/2022 [...] computer, cell phone, or tablet. Medicines Take tlku-hbh-jfdmufu and prescription medicines only as told by [...] be a hospital support group, a National [place] on Mental Illness ([place]ARDO) support group, or [...] information about treatment services in your area: (3-382-YUHPDY9) U.[place]. Department of Health and Human Services mental health services: www.mentalhealth.gov National [place] on Mental Illness ([place]): www.bernardo.org National [place] on Alcoholism and Drug Dependence: www.ncadd.org Contact [...] 02/12/2018 Document Revised: 11/24/2019 Document Reviewed: 02/12/2018 [employer] Patient Education 2020 bewarket. 04/25/2022 02:56:28 Managing Schizophrenia Managing Schizophrenia If [...] eating. Follow these instructions at home: Take iujk-nir-jsdadpc and prescription medicines only as told by [...] be able to find financial assistance through bfb-rim-adycih organizations or with local government-based resources. If [...] schizophrenia. Where to find more information National [place] on Mental Illness: www.bernardo.org Contact a health [...] Document Reviewed: 01/28/2018 Else[employer] Patient Education 2020 [employer] Follow Up Care 04/24/2022 12:58:04 With:[facility] Address:Unknown When: Unknown Comments:Call the office today to arrange further detox options. With:NANCY RODRIGUEZ Address: [address] [place] [address] Business (1) When:Within 3 Day(s) [facility]07-14-2022 Evaluation + Plan noteExtracted from: Title:ED Note [...] day(s), # 14 cap(s), Refills(s) 0, Pharmacy: [id number], 165, cm, 04/24/22 13:10:00 EDT, Height/Length Dosing, 70.8, kg, 04/24/22 13:10:00 EDT, Weight Dosing lorazepam, 2 mg = 2 tab(s), Tab, Oral, Once, Stop date 04/24/22 14:20:00 EDT, STAT, Start date 04/24/22 14:20:00 EDT, 04/24/22 14:20:00 EDT Basic Metabolic Panel Creatine Kinase Drug Screen Urine ECG 12 Lead Adult eGFR Rapid COVID Antigen ([facility]) Troponin 0 Hr. UA With Cult Reflex Urine Culture [facility] Future Appointments Appointment Date:04/02/2023 11:00:00 AM Scheduled Provider:NANCY RODRIGUEZ CNP Location:[facility] Appointment Type: Open Future Scheduled Tests Radiology* XR Knee Complete 4+ Views Left 10/02/22 * XR Elbow 3+ Views Left 10/02/22 * XR Spine Lumbosacral Minimum 4 Views 10/02/22 [facility] [place] Evaluation + Plan note Future Appointments Appointment Date:02/05/2023 02:20:00 PM Scheduled Provider:Cris PENA CNP Location:[facility] Appointment Type:FM Open Appointment Date:04/02/2023 11:00:00 AM Scheduled Provider:NANCY RODRIGUEZ CNP Location:[facility] Appointment Type: Open Future Scheduled Tests Radiology* XR Knee Complete 4+ Views Left 10/02/22 * XR Elbow 3+ Views Left 10/02/22 * XR Spine Lumbosacral Minimum 4 Views 10/02/22 [facility] Evaluation noteNo assessment information available [facility] Work Phone: Evaluation note* Diagnosis Onset Date Resolution Status Bipolar 1 disorder, depressed acute Hypokalemia acute Opioid use disorder acute Suicidal ideation acute UTI (urinary tract infection) acute [facility] Work Phone: evaluation note* [...] pain without sciatica documented in this encounter [facility] Diagnosis Anxiety- Primary Anxiety state, unspecified documented [facility] this encounter [facility]* Diagnosis Attention deficit hyperactivity disorder (ADHD), unspecified ADHD type- Primary Paranoid schizophrenia (HCC) Paranoid schizophrenia, unspecified condition Bipolar depression (HCC) Bipolar I disorder, most recent episode (or current) depressed, unspecified History of heroin abuse (HCC) Opioid abuse, in remission documented in this encounter [facility] Diagnosis Paranoid schizophrenia (HCC) Paranoid schizophrenia, unspecified condition Bipolar depression (HCC) Bipolar I disorder, most recent episode (or current) depressed, unspecified documented [facility] this encounter [facility] Diagnosis Paranoid schizophrenia (HCC) Paranoid schizophrenia, unspecified condition Bipolar depression (HCC) Bipolar I disorder, most recent episode (or current) depressed, unspecified Attention deficit hyperactivity disorder (ADHD), unspecified ADHD type documented in this encounter [facility] Diagnosis Attention deficit hyperactivity disorder (ADHD), unspecified ADHD type documented [facility] encounter [facility]* Diagnosis Onset Date Resolution Status Bipolar disorder, unspecified acute [facility] Work Phone: evaluation note* Diagnosis Myofascial pain syndrome Mylagia and myositis, unspecified documented in this encounter [facility]* Diagnosis Myofascial pain syndrome Mylagia and myositis, unspecified documented [facility] encounter [facility]* Diagnosis Onset Date Resolution Status Bipolar disorder, unspecified acute Bipolar disorder, now depressed acute Intentional overdose acute Methadone dependence acute [facility] Work Phone: Evaluation note* Diagnosis Onset Date Resolution Status Abscess of skin or subcutaneous tissue acute Bipolar 1 disorder, depressed acute Bipolar disorder, now depressed acute Intentional overdose acute Methadone dependence acute Sputum production acute Tobacco abuse acute Unspecified psychosis acute [facility] Work Phone: evaluation note* Diagnosis Paranoid schizophrenia (HCC) Paranoid schizophrenia, unspecified condition Bipolar depression (HCC) Bipolar I disorder, most recent episode (or current) depressed, unspecified [facility] Diagnosis Chronic midline low back pain without sciatica- Primary Myofascial pain syndrome Mylagia and myositis, unspecified documented in this encounter [facility] Diagnosis Attention deficit disorder, unspecified hyperactivity presence- Primary Anxiety Anxiety state, unspecified documented in this encounter [facility]* Diagnosis Anxiety- Primary Anxiety state, unspecified documented in this encounter [facility]* Diagnosis Anxiety state- Primary Anxiety state, unspecified documented in this encounter [facility]ALTHHistory and physical note Author Bobo Shields [facility] January 12, 2023 3:37pm Note Date/Time January 12, 2023 3:33 pm [facility] [address] [place] [address] Psychiatry H&P Signed Patient: Lorna Deutsch MR#: [id number] : 1985 Acct:[id number] Age/Sex: 38 / F Adm Date: 3 Loc: 1S Room: 0F7113-7 Type: ADM IN Attending Dr: Bobo Shields MD Copies to: MD Robinson Murciaey Magalie MELCHOR CNP~ Date of Service: 01/12/2023 HPI History [...] Cloudy A Urine pH 6.0 Ur Specific [place] 1.020 Urine Protein Negative Urine Glucose (UA) [...] signed by Bobo Shields MD> 01/12/23 1537 [facility] Work Phone: Hospital course Narrative No data available for this section [facility] No data available for this section [facility] Additional Instructions Follow-up with your primary care doctor Return to the ED if you develop worsening symptoms [facility] Work Phone: Hospital Discharge instructions Additional Instructions Regular diet No activity restrictionsS[facility] Hospital Work Phone: Hospital Discharge instructions Additional Instructions Important Contact Information You can call [facility] at [phone] any time day or night if you have emergent questions or question regarding discharge instructions. If at any time you are feeling an increase in your psychiatric symptoms, call your physician or behavioral healthcare provider. If any time you have thoughts of harming yourself or others contact one of the following: Call [phone] (available 04/05) Crisis Text Line (available 04/05) text 4HOPE to [phone] [facility] Hope Line (available 8 a.m. Midnight) call [phone] ([phone]) Regular Diet No Activity RestrictionsS[facility] Hospital Work Phone: Progress note No data available for this section [facility] Family History No Family History Records Found [...] FoundDocuments on File Type Date Recorded Patient Hat Mender Expl anation ACP-Advance Directive ACP-Advance Directive 07/04/2014 2:14 PM ACP-Power of Beef Selector Latest Code Status on File Code Status [...] Time Advance Directives No January 17 12:24am Documents on File Type Date Recorded Patient Hat Mender Expl anation ACP-Advance Directive 07/04/2014 2:14 PM Latest Code Status on File Code Status Date Activated Date Inactivated Comments Full Code 02/05/2021 9:23 PM 02/11/2021 4:38 PM Code Status History Code Status Date Activated Date Inactivated Comments Full Code 07/18/2020 2:28 AM 07/31/2020 9:01 PM Full Code 09/28/2016 1:34 PM 10/01/2016 5:22 PM Full Code 07/28/2016 11:49 AM 07/30/2016 8:04 PM Full Code 07/12/2014 1:58 AM 07/21/2014 11:28 AM Summary Purpose Chief Complaint and Reason for Visit Chief [...] infection) Chief Complaint Wants to talk to Alcohol withdrawl,MHP anxiety Missed meth clinic/needs meds Chief [...] t Referred To Contact Diagnoses Attention deficit disorder, unspecified hyperactivity presence Chuck Galindo MD [address] [place] [address] Referral ID Status Reason Start Date Expiration Date Visits Re quested Visits Authorized [id number] Closed 1 1 Specialty Diagnoses / Procedures Referred By Contac t Referred To Contact Pain Management Diagnoses Chronic midline low back pain without sciatica Procedures CONSULT TO PAIN MGT OFFICE/OUTPATIENT [facility] 60-74 MINUTES Caitlin Cheatham APRN.AIR TWISTER WINDER [address] [place] [address] Referral ID Status Reason Start Date Expiration Date Visits Requested Visits Authorized [id number] Authorized PCP Requested Referral 03/16/2023 03/15/2024 1 1 Specialty Diagnoses / Procedures Referred By Contac t Referred To Contact Diagnoses Attention deficit hyperactivity disorder (ADHD), unspecified ADHD type Bipolar depression (HCC) Paranoid schizophrenia (HCC) Procedures CONSULT TO PSYCHIATRY OFFICE/OUTPATIENT [facility] 60-74 MINUTES Caitlin Cheatham APRN.AIR TWISTER WINDER [address] [place] [address] Referral ID Status Reason Start Date Expiration Date Visits Requested Visits Authorized [id number] Pending Review PCP Requested Referral 03/16/2023 03/15/2024 1 1 Specialty Diagnoses / Procedures Referred By Contac t Referred To Contact Diagnoses History of abnormal cervical Pap smear Procedures CONSULT TO ENROLLMENT MANAGEMENT COORDINATOR OFFICE/OUTPATIENT [facility] 60-74 MINUTES Caitlin Cheatham APRN.A[employer]ISTER [employer]INDER [address] [place] [address] Referral ID Status Reason Start Date Expiration Date Visits Requested Visits Authorized [id number] Authorized PCP Requested Referral Auto-Generate d Referral 03/16/2023 03/15/2024 1 1 Additional Source Comments INFORMATION SOURCE (unrecogn ized section and content) DATE CREATED AUTHOR 02/11/2021 [facility] DATE CREATED AUTHOR AUTHOR'S ORGANIZ ATION 01/16/2023 [facility] DATE CREATED AUTHOR AUTHOR'S ORGANIZ ATION 05/17/2023 [facility] DATE CREATED AUTHOR AUTHOR'S ORGANIZ ATION 06/13/2023 [facility] DATE CREATED AUTHOR AUTHOR'S ORGANIZ ATION 12/15/2023 [facility] DATE CREATED AUTHOR AUTHOR'S ORGANIZ ATION 12/25/2023 [facility] DATE CREATED AUTHOR AUTHOR'S ORGANIZ ATION 01/13/2024 [facility] DATE CREATED AUTHOR AUTHOR'S ORGANIZ ATION 01/23/[address] [facility] ys[facility] Care Team (unrecognized sect ion and content) Team Status: Active Member Role Status Dates Cris Pena APRN CENTER CONSULTANT-C Primary Care Provider Active Team Status: Inactive Member Role Status Dates Zain Reyes DO Emergency Provider Active Cris Pena APRN CENTER CONSULTANT-C Primary Care Provider Active Team Status: Inactive Member Role Status Dates Cris Pena APRN CENTER CONSULTANT-C Primary Care Provider Active Nito Walton DO Emergency Provider Active Team Status: Active Member Role Status Dates Cris Pena APRN CENTER CONSULTANT-C Primary Care Provider Active Jose Moses DO Emergency Provider Active Bobo Shields MD Admit Provider, Attending Provider Active Team Status: Inactive Member Role Status Dates Zain Reyes DO Emergency Provider Active Nancy Rodriguez , CENTER CONSULTANT-C Primary Care Provider Active Team Status: Active Member Role Status Dates Nancy Rodriguez CENTER CONSULTANT-C Primary Care Provider Active Team Status: Inactive Member Role Status Dates Cris Pena APRN CENTER CONSULTANT-C Primary Care Provider Active Jose Moses DO Emergency Provider Active Bobo Shields MD Admit Provider, Attending Provider Active Team Status: Inactive Member Role Status Dates Cris Pena APRN CENTER CONSULTANT-C Primary Care Provider Active Farhad Landon MD Emergency Provider Active Interventional Neuroradiologist Relationship Specialty Start Date End Date Caitlin Cheatham APRN.[employer]ER [address] [place] [address] PCP - General Internal Medicine 03/16/23 Interventional Neuroradiologist Relationship Specialty Start Date End Date Randal coronelina, BEHAVIOR ANALYST.A[employer]ISTER WINDER [address] [place] [address] PCP - General Internal Medicine 03/16/23 Interventional Neuroradiologist Relationship Specialty Start Date End Date RandalCaitlin, BEHAVIOR ANALYST.A[employer]ER [address] [place] [address] PCP - General Internal Medicine 03/16/23 Interventional Neuroradiologist Relationship Specialty Start Date End Date , BEHAVIOR ANALYST.A[employer]ER [address] [place] [address] PCP - General Internal Medicine 03/16/23 Team Status: Active Member Role Status Dates NON STAFF Primary Care Provider Active Team Status: Inactive Member Role Status Dates Cris Pena APRN CENTER CONSULTANT-C Primary Care Provider Active Leonard Salazar DO Emergency Provider Active Team Status: Inactive Member Role Status Dates Cris Pena APRN CENTER CONSULTANT-C Primary Care Provider Active Zain Reyes DO Emergency Provider Active Team Status: Inactive Member Role Status Dates NON STAFF Primary Care Provider Active Zain Reyes DO Emergency Provider Active Team Status: Inactive Member Role Status Dates NON STAFF Primary Care Provider Active Eriberto Sheppard PA-C Emergency Provider Active Interventional Neuroradiologist Relationship Specialty Start Date End Date RandalCaitlin, BEHAVIOR ANALYST.A[employer]ISTER [employer]ER [address] [place] [address] PCP - General Internal Medicine 03/16/23 Interventional Neuroradiologist Relationship Specialty Start Date End Date RandalCaitlin, BEHAVIOR ANALYST.AIR TWISTER WINDER [address] [place] [address] PCP - General Internal Medicine 03/16/23 Team Status: Inactive Member Role Status Dates NON STAFF Primary Care Provider Active Luis Armando Hendrix MD Emergency Provider Active Team Status: Inactive Member Role Status Dates NON STAFF Primary Care Provider Active Bobo Shields MD Admit Provider, Attending Provider Active Team Status: Active Member Role Status Dates Cris Pena BEHAVIOR ANALYST CENTER CONSULTANT-C Primary Care Provider Active Claudio Dee MD Attending Provider Active Team Status: Active Member Role Status Dates Cris SolisRUIZ camp CENTER CONSULTANT-C Primary Care Provider Active Chucky Dueñas Jr, MD Emergency Provider Active Bobo Shields MD Admit Provider, Attending Provider Active Team Status: Inactive Member Role Status Dates Cris Pena , BEHAVIOR ANALYST CENTER CONSULTANT-C Primary Care Provider Active Chucky Dueñas Jr, [...] or prosecute any alcohol or drug abuse patient.[facility] the event this information is protected by the Federal Confidentiality of Alcohol and Drug Abuse Patient Records regulations: The Federal rules restrict any use of the information to criminally investigate or prosecute any alcohol or drug abuse patient.[facility] the event this information is protected by the Federal Confidentiality of Alcohol and Drug Abuse Patient Records regulations: The Federal rules restrict any use of the information to criminally investigate or prosecute any alcohol or drug abuse patient.[facility]In the event this information is protected by the Federal Confidentiality of Alcohol and Drug Abuse Patient Records regulations: The Federal rules restrict any use of the information to criminally investigate or prosecute any alcohol or drug abuse patient.[facility] the event this information is protected by the Federal Confidentiality of Alcohol and Drug Abuse Patient Records regulations: The Federal rules restrict any use of the information to criminally investigate or prosecute any alcohol or drug abuse patient.[facility]In the event this information is protected by the Federal Confidentiality of Alcohol and Drug Abuse Patient Records regulations: The Federal rules restrict any use of the information to criminally investigate or prosecute any alcohol or drug abuse patient.[facility] SouthIn the event this information is protected by the Federal Confidentiality of Alcohol and Drug Abuse Patient Records regulations: The Federal rules restrict any use of the information to criminally investigate or prosecute any alcohol or drug abuse patient.[facility] SouthIn the event this information is protected by the Federal Confidentiality of Alcohol and Drug Abuse Patient Records regulations: The Federal rules restrict any use of the information to criminally investigate or prosecute any alcohol or drug abuse patient.[facility] SouthIn the event this information is protected by the Federal Confidentiality of Alcohol and Drug Abuse Patient Records regulations: The Federal rules restrict any use of the information to criminally investigate or prosecute any alcohol or drug abuse patient.[facility] SouthIn the event this information is protected by the Federal Confidentiality of Alcohol and Drug Abuse Patient Records regulations: The Federal rules restrict any use of the information to criminally investigate or prosecute any alcohol or drug abuse patient.[facility] SouthIn the event this information is protected by the Federal Confidentiality of Alcohol and Drug Abuse Patient Records regulations: The Federal rules restrict any use of the information to criminally investigate or prosecute any alcohol or drug abuse patient.[facility] SouthIn the event this information is protected by the Federal Confidentiality of Alcohol and Drug Abuse Patient Records regulations: The Federal rules restrict any use of the information to criminally investigate or prosecute any alcohol or drug abuse patient.[facility]In the event this information is protected by the Federal Confidentiality of Alcohol and Drug Abuse Patient Records regulations: The Federal rules restrict any use of the information to criminally investigate or prosecute any alcohol or drug abuse patient.[facility] SouthIn the event this information is protected by the Federal Confidentiality of Alcohol and Drug Abuse Patient Records regulations: The Federal rules restrict any use of the information to criminally investigate or prosecute any alcohol or drug abuse patient.[facility] SouthIn the event this information is protected by the Federal Confidentiality of Alcohol and Drug Abuse Patient Records regulations: The Federal rules restrict any use of the information to criminally investigate or prosecute any alcohol or drug abuse patient.[facility] SouthIn the event this information is protected by the Federal Confidentiality of Alcohol and Drug Abuse Patient Records regulations: The Federal rules restrict any use of the information to criminally investigate or prosecute any alcohol or drug abuse patient.[facility] SouthIn the event this information is protected by the Federal Confidentiality of Alcohol and Drug Abuse Patient Records regulations: The Federal rules restrict any use of the information to criminally investigate or prosecute any alcohol or drug abuse patient.[facility] the event this information is protected by the Federal Confidentiality of Alcohol and Drug Abuse Patient Records regulations: The Federal rules restrict any use of the information to criminally investigate or prosecute any alcohol or drug abuse patient.[facility] the event this information is protected by the Federal Confidentiality of Alcohol and Drug Abuse Patient Records regulations: The Federal rules restrict any use of the information to criminally investigate or prosecute any alcohol or drug abuse patient.[facility] the event this information is protected by the Federal Confidentiality of Alcohol and Drug Abuse Patient Records regulations: The Federal rules restrict any use of the information to criminally investigate or prosecute any alcohol or drug abuse patient.[facility] SouthIn the event this information is protected by the Federal Confidentiality of Alcohol and Drug Abuse Patient Records regulations: The Federal rules restrict any use of the information to criminally investigate or prosecute any alcohol or drug abuse patient.[facility] SouthIn the event this information is protected by the Federal Confidentiality of Alcohol and Drug Abuse Patient Records regulations: The Federal rules restrict any use of the information to criminally investigate or prosecute any alcohol or drug abuse patient.[facility] SouthIn the event this information is protected by the Federal Confidentiality of Alcohol and Drug Abuse Patient Records regulations: The Federal rules restrict any use of the information to criminally investigate or prosecute any alcohol or drug abuse patient.[facility] Reason for Visit (unrecogniz ed section and [...] Comments Refill Request 08/27/2023 Refill Request 08/28/2023 Reason Comments Appointment 12/01/2023 Reason Onset Date Comments Refill Request 12/01/2023 Reason Comments Pain Reason Comments Patient Update Rehab discharge, Med ication Update Orders Reason Comments Behavioral Problem Reason Comments Mental Health Problem Pt. Brought in by acquaint she met 3 weeks ago. Pt. Has history of anxiety & alcohol abuse. Pt. Reports it has been awhile since she has drank. Pt. Anxious in triage & poor historian. Pt. Denies any SI/HI Reason Comments Mental Health Problem Pt. Anxious & with drawn in triage. Pt. Answers very minimal questions. Pt. Denies any SI/HI. Pt. Does report seeing things at this time. Reason Comments Anxiety Patient states her anxiety is really really bad Scheduled Active and Recently Administ ered Medications (unrecognized section and content) Medication Order 01/10/2024 01/11/2024 01/12/2024 clonazePAM (KLONOPIN) tablet 0.5 mg (COMPLETED) 0.5 mg, Oral, ONCE, 1 dose, On Thu01/12/24 at 1800 1827 (Given - Provid er: Kaity Otero RN) Scheduled Medication Order 01/11/2024 01/12/2024 01/13/2024 clonazePAM (KLONOPIN) tablet 1 mg (COMPLETED) 1 mg, Oral, ONCE, 1 dose, On Thu01/13/24 at 0415 0426 (Given - Provid er: Leida Hernandez RN) hydrOXYzine pamoate (VISTARIL) capsule 50 mg (COMPLETED) 50 mg, Oral, ONCE, 1 dose, On Thu01/13/24 at 0415 0426 (Given - Provid er: Leida Hernandez RN) FOR RECORDS PERTAINING TO PATIENTS WHO ARE [...] BE BASED ON THE PRIMARY CLINICAL RECORDS. [facility]. provides no warranty or guarantee of the accuracy or completeness of information in this document.
[2024-02-10] MEDS: CLONAZEPAM 0.5 MG TABLET 1 MG PO (22:38)
[2024-02-10 22:40] VITALS: BP 126/82; PULSE 87; O2SAT 98
== END 2024-02-10 22:40 | disposition home or self-care (01) ==
PROVIDERS: Emergency Provider Emergency Medicine; PCP Nurse Practitioner Family
DX: Z76.0 Encounter for issue of repeat prescription (principal); F41.9 Anxiety disorder, unspecified; Z79.899 Other long term (current) drug therapy; F17.210 Nicotine dependence, cigarettes, uncomplicated
CPT/HCPCS: 99283

== ENCOUNTER 2024-03-10 12:12 | Emergency (ER) | payer OTHER, SELFPAY ==
[2024-03-10 12:16] VITALS: BP 120/86; PULSE 93; TEMP 36.7; O2SAT 100
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
== END 2024-03-10 12:50 | disposition home or self-care (01) ==
PROVIDERS: Emergency Provider Emergency Medicine Emergency Medical Services
DX: S00.83XA Contusion of other part of head, initial encounter (principal); Y04.2XXA Assault by strike against or bumped into by another person, initial encounter
CPT/HCPCS: 99282

== ENCOUNTER 2024-05-06 15:14 | Emergency (ER) | payer OTHER, SELFPAY ==
[2024-05-06 15:21] VITALS: BP 114/73; PULSE 75; TEMP 36.6; O2SAT 99; BMI 26.6
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
[2024-05-06] MEDS: CLONAZEPAM 0.5 MG TABLET 1 MG PO (16:01)
== END 2024-05-06 16:05 | disposition home or self-care (01) ==
PROVIDERS: Emergency Provider Emergency Medicine
DX: Z76.0 Encounter for issue of repeat prescription (principal); F17.210 Nicotine dependence, cigarettes, uncomplicated
CPT/HCPCS: 99283